=== PATIENT | male | born 1980 | race Caucasian/White ===

== ENCOUNTER 2019-01-07 18:51 | Inpatient (IN) | payer BC ==
[~2019-01-07] VITALS: Ht 170.2 cm; Wt 101.0 kg
[~2019-01-07 18:51] MED LIST: BENZOCAINE ONE 20% MUCOSAL SPRAY.; LIDOCAINE 2% TOPICAL JELLY 5GM TUBE. TP ONE
[2019-01-07 19:24] LABS: BASO # 0.2 x10^3/uL (0.0-0.2); BASO % 1 % (0-3); EOS % 0 % (0-3); HEMATOCRIT 22.4 % (39.0-53.0); HEMOGLOBIN 7.6 g/dL (13.0-17.5); LYMPH # 1.9 x10^3/uL (1.0-4.8); LYMPH % 8 % (24-48); MEAN CORPUSCULAR HEMOGLOBIN 33 pg (25-35); MEAN CORPUSCULAR HGB CONC 34 g/dL (31-37); MEAN CORPUSCULAR VOLUME 97 fL (79-100); MONO # 2.6 x10^3/uL (0.0-1.1); MONO % 11 % (0-9); NEUT % 81 % (31-73); PLATELET COUNT 168 x10^3/uL (140-400); RED CELL DISTRIBUTION WIDTH 14.6 % (11.5-14.5); WHITE BLOOD COUNT 24.7 x10^3/uL (4.0-11.0)
[2019-01-07] MEDS ORDERED: ONDANSETRON PF 4 MG/2 ML VIAL. IV ONE (19:30)
[2019-01-07] MEDS ORDERED: IV NORMAL SALINE 1000ML BAG 1,000 ML IV ONE ×3 (19:30→21:00)
[2019-01-07 19:33] LABS: PROTHROMBIN TIME PATIENT 21.7 SEC (11.7-14.0)
[2019-01-07 19:38] LABS: ALBUMIN 1.8 g/dL (3.4-5.0); ALBUMIN/GLOBULIN RATIO 0.4 (1.0-1.7); CALCIUM 7.6 mg/dL (8.5-10.1); CREATININE 1.7 mg/dL (0.7-1.3); GFR 45.3; MAGNESIUM 1.8 mg/dL (1.8-2.4); TOTAL PROTEIN 6.2 g/dL (6.4-8.2)
[2019-01-07 19:40] LABS: POTASSIUM 2.9 mmol/L (3.5-5.1)
[2019-01-07 19:57] LABS: % BANDS 2 % (0-9); % LYMPHS 6 % (24-48); % MONOS 10 % (0-10); % SEGS 82 % (35-66); ANISOCYTOSIS SLIGHT; POLYCHROMASIA SLIGHT; TOXIC GRANULATION SLIGHT
[2019-01-07 19:59] LABS: PLT ESTIMATE ADEQUATE (ADEQUATE)
[2019-01-07] MEDS ORDERED: PANTOPRAZOLE SODIUM IV DRIP 80 MG in IV NORMAL SALINE 100ML 100 ML IV ONE (20:00)
[2019-01-07] MEDS ORDERED: PANTOPRAZOLE IV PUSH 40 MG VIAL. IVP ONE (20:00)
--- NOTE | 2019-01-07 20:56 | PHYS DOC ---
Past Medical History Past Medical History: Alcoholism, Hypertension (MELL MCINTOSH APRN) Past Surgical History: No Surgical History (MELL MCINTOSH APRN) Alcohol Use: Occasionally Additional Information: PT REPORTS HX OF ALCOHOLISM Drug Use: None (MELL MCINTOSH APRN) Attending Signature I have participated in the care of this patient and I have reviewed and agree with all pertinent clinical information above including history, exam, and recommendations. (WILLEM FOOTE MD) Adult General Chief Complaint Chief Complaint: GI PROBLEM HPI HPI Patient is a 38 year old male who presents to the emergency department with complaints of vomiting blood twice today. Patient reports a history of daily alcohol consumption. He states that he has been drinking heavily for at least the last 7 months. Patient states that he drinks on average 4-8 beers a day. He denies any pain at this time. He reports that his last alcoholic beverage was 3 days ago. Patient states that he has had a history of vomiting blood in the past he denies any other medical history, he denies surgical history, and any allergies to any medications. Patient denies smoking or tobacco use, any illicit drug use, or suicidal ideations.. (MELL MCINTOSH APRN) Review of Systems Review of Systems Constitutional: Denies fever or chills [] Eyes: Denies change in visual acuity, redness, or eye pain [] HENT: Denies nasal congestion or sore throat [] Respiratory: Denies cough or shortness of breath [] Cardiovascular: Denies chest pain or palpitations, No additional information not addressed in HPI [] GI: Denies abdominal pain, bloody stools or diarrhea; see history of present illness[] : Denies dysuria or hematuria [] Musculoskeletal: Denies back pain or joint pain [] Integument: Denies rash or skin lesions [] Neurologic: Denies headache, focal weakness or sensory changes [] Complete systems were reviewed and found to be within normal limits, except as documented in this note. (MELL MCINTOSH APRN) Current Medications Current Medications Current Medications Medications (Trade) Dose Ordered Sig/Quyen Start Time Stop Time Status Last Admin Dose Admin Benzocaine (Hurricaine One) 2 spray STK-MED ONCE 01/07/19 12:00 01/08/19 14:20 DC Lidocaine HCl (Xylocaine 2% Topical 5gm Tube) 5 amanda STK-MED ONCE 01/07/19 12:00 01/08/19 14:20 DC Ondansetron HCl (Zofran) 4 mg 1X ONCE 01/07/19 19:30 01/07/19 19:31 DC 01/07/19 19:28 4 MG Pantoprazole Sodium (PROTONIX VIAL for IV PUSH) 80 mg 1X ONCE 01/07/19 20:00 01/07/19 20:01 DC 01/07/19 19:50 80 MG Pantoprazole Sodium 80 mg/ Sodium Chloride 100 ml @ 10 mls/hr 1X ONCE 01/07/19 20:00 01/08/19 05:59 DC 01/07/19 20:00 10 MLS/HR Sodium Chloride 1,000 ml @ 1,000 mls/hr 1X ONCE 01/07/19 20:45 01/07/19 21:44 DC 01/07/19 20:40 1,000 MLS/HR (WILLEM FOOTE MD) Allergies Allergies Allergies Coded Allergies Type Severity Reaction Last Updated Verified No Known Drug Allergies 01/07/19 No (WILLEM FOOTE MD) Physical Exam Physical Exam Constitutional: Well developed, well nourished, no acute distress, ill appearance. [] HENT: Normocephalic, atraumatic, bilateral external ears normal, oropharynx moist, no oral exudates, nose normal. [] Eyes: PERRLA, EOMI, conjunctiva jaundiced bilaterally, no discharge. [] Neck: Normal range of motion, no stridor. [] Cardiovascular:Heart rate regular tachycardic rhythm, no murmur [] Lungs & Thorax: Bilateral breath sounds clear to auscultation, rapid, shallow respirations, no chest wall tenderness, no retractions [] Abdomen: Bowel sounds normal, distended, no tenderness, no masses, no pulsatile masses. [] Skin: Warm, dry, appears jaundiced Back: No tenderness Extremities: No tenderness, no cyanosis, no clubbing, ROM intact, no edema. [] Neurologic: Alert and oriented X 2, patient is confused to date, no focal deficits noted. [] Psychologic: Affect normal, judgement normal, mood normal. [] (MELL MCINTOSH APRN) Current Patient Data Vital Signs Vital Signs Date Time Temp Pulse Resp B/P (MAP) Pulse Ox O2 Delivery O2 Flow Rate FiO2 01/07/19 20:36 120 135/57 (83) 100 Room Air 01/07/19 19:00 98.7 27 98.7 (WILLEM FOOTE MD) Lab Values Laboratory Tests Test 01/07/19 19:00 01/07/19 19:13 White Blood Count 24.7 x10^3/uL (4.0-11.0) H Red Blood Count 2.30 x10^6/uL (4.30-5.70) L Hemoglobin 7.6 g/dL (13.0-17.5) L Hematocrit 22.4 % (39.0-53.0) L Mean Corpuscular Volume 97 fL (79-100) Mean Corpuscular Hemoglobin 33 pg (25-35) Mean Corpuscular Hemoglobin Concent 34 g/dL (31-37) Red Cell Distribution Width 14.6 % (11.5-14.5) H Platelet Count 168 x10^3/uL (140-400) Neutrophils (%) (Auto) 81 % (31-73) H Lymphocytes (%) (Auto) 8 % (24-48) L Monocytes (%) (Auto) 11 % (0-9) H Eosinophils (%) (Auto) 0 % (0-3) Basophils (%) (Auto) 1 % (0-3) Neutrophils # (Auto) 20.0 x10^3/uL (1.8-7.7) H Lymphocytes # (Auto) 1.9 x10^3/uL (1.0-4.8) Monocytes # (Auto) 2.6 x10^3/uL (0.0-1.1) H Eosinophils # (Auto) 0.0 x10^3/uL (0.0-0.7) Basophils # (Auto) 0.2 x10^3/uL (0.0-0.2) Segmented Neutrophils % 82 % (35-66) H Band Neutrophils % 2 % (0-9) Lymphocytes % 6 % (24-48) L Monocytes % 10 % (0-10) Toxic Granulation Slight Platelet Estimate Adequate (ADEQUATE) Polychromasia Slight Anisocytosis Slight Prothrombin Time 21.7 SEC (11.7-14.0) H Prothrombin Time INR 1.9 (0.8-1.1) H Activated Partial Thromboplast Time 43 SEC (24-38) H Sodium Level 124 mmol/L (136-145) L Potassium Level 2.9 mmol/L (3.5-5.1) *L Chloride Level 81 mmol/L (98-107) L Carbon Dioxide Level 13 mmol/L (21-32) L Anion Gap 30 (6-14) H Blood Urea Nitrogen 35 mg/dL (8-26) H Creatinine 1.7 mg/dL (0.7-1.3) H Estimated GFR (Cockcroft-Gault) 45.3 BUN/Creatinine Ratio 21 (6-20) H Glucose Level 125 mg/dL (70-99) H Lactic Acid Level 21.1 mmol/L (0.4-2.0) *H Calcium Level 7.6 mg/dL (8.5-10.1) L Magnesium Level 1.8 mg/dL (1.8-2.4) Total Bilirubin 8.0 mg/dL (0.2-1.0) H Aspartate Amino Transferase (AST) 304 U/L (15-37) H Alanine Aminotransferase (ALT) 109 U/L (16-63) H Alkaline Phosphatase 207 U/L (46-116) H Creatine Kinase 965 U/L (39-308) H Creatine Kinase MB (Mass) 9.6 ng/mL (0.0-3.6) H Creatine Kinase MB Relative Index 1.0 % (0-4) Troponin I Quantitative 0.036 ng/mL (0.000-0.055) BK-Qau-W-Type Natriuretic Peptide 352 pg/mL (0-124) H Total Protein 6.2 g/dL (6.4-8.2) L Albumin 1.8 g/dL (3.4-5.0) L Albumin/Globulin Ratio 0.4 (1.0-1.7) L Lipase 627 U/L (73-393) H Ethyl Alcohol Level < 10 mg/dL (0-10) Glucose (Fingerstick) 114 mg/dL (70-99) H Laboratory Tests 01/07/19 19:00 Laboratory Tests 01/07/19 19:00 (WILLEM FOOTE MD) EKG EKG 1910 sinus tachycardia with a rate of 123 beats per minute, QRS(T) contour abnormality, consider anteroseptal myocardial damage, T-wave abnormality in the high lateral leads, no STEMI read by Dr. Foote (MELL MCINTOSH ELECTRONIC DATA INTERCHANGE SPECIALIST) Radiology/Procedures Radiology/Procedures PROCEDURE: CT ABDOMEN PELVIS WO CONTRAST CT ABDOMEN PELVIS WO CONTRAST INDICATION: Abdominal distention, jaundice EXAM: Noncontrast CT of the abdomen and pelvis. Coronal and sagittal reformatted images were performed. PQRS compliance statement: One or more of the following individualized dose reduction techniques were utilized for this examination: 1. Automated exposure control 2. Adjustment of the mA and/or kV according to patient size 3. Use of iterative reconstruction technique COMPARISON: None FINDINGS: Mild perihepatic and abdominal ascites. Lower chest: The visualized lower lungs are aerated. No pleural or pericardial effusion. ABDOMEN: Liver: No focal hepatic lesion. Gallbladder and biliary: Gallbladder is contracted and poorly evaluated. Normal caliber bile ducts. Spleen: Normal spleen. Pancreas: The noncontrast pancreas is homogeneous in attenuation without peripancreatic inflammatory changes. Adrenal glands: Normal adrenal glands. Kidneys and ureters: No opaque urinary calculi. Normal kidneys and ureters. GI tract: The stomach is decompressed and poorly evaluated. Normal caliber small bowel and colon. Appendix is not seen. Vascular structures: Moderate aortoiliac atherosclerotic disease Lymph nodes: No lymphadenopathy in the abdomen or pelvis. PELVIS: Genitourinary system: Bladder is well-distended. Hysterectomy SKELETAL STRUCTURES AND SOFT TISSUES: Degenerative changes of the spine. IMPRESSION: Mild abdominal and perihepatic ascites. No focal hepatic lesion, allowing for lack of intravenous contrast.[] PROCEDURE: CHEST AP ONLY Indication: Tachypnea TECHNIQUE:Portable AP chest X-ray COMPARISON: None FINDINGS: Heart is normal in size. Lungs are clear. No pneumothorax or pleural effusion. Visualized bony thorax within normal limits. IMPRESSION: No acute pulmonary process. (MELL MCINTOSH ELECTRONIC DATA INTERCHANGE SPECIALIST) Course & Med Decision Making Course & Med Decision Making Pertinent Labs and Imaging studies reviewed. (See chart for details) DX: Hepatic encephalopathy, multiorgan failure, severe sepsis, acute upper GI bleed, hypokalemia, ascities CBC: WBC 24.7, Hgb 7.6 at 1900 6.3 at 2235. Hct 22.4 at 1900 18.4 at 2235; pt was type and screened for 2 u PRBCs and order to transfuse was given; pt was also given 80 mg iv protonix bolus and protonix drip was started PT/INR Pt 21.7, INR 1.9, APTT 43 initial lactic acid 21.1 at 1900 pt given 3L NS repeat at 2235 is 17.3 Ammonia 90; alcohol testing negative CMP NA 124, K 2.9 (NS with 40 meq KCl 2 75 ml/hr ordered), CO2 13, BUN 35, Fence Machine Operator 1.7, total bili 8.9, AST 304, ALT 109, Alk phos 207, Lipase 627 CT abd pel revealed mild ascites CXR was ordered due to continued rapid shallow respirations most likely due to metabolic acidosis, CXR was unremarkable following 3L NS bolus, O2 sat remains 99-100% on room air Pt's VSS, remains tachycardic and tachypneic, Pt afebrile Pt reported anxiety 1 mg of IV ativan was ordered. 2044- Spoke with Dr. Borja who is the admitting physician, and care was assumed following discussion of patient. Will order vancomycin and zosyn pharmacy to dose. Also type and cross for 2 units PRBCs Patient remains afebrile, appears ill and jaundiced, respirations even and unlabored. Patient will be admitted to the ICU floor. Patient's case and plan of care also discussed with Dr. Foote [] (MELL MCINTOSH APRN) Dragon Disclaimer Dragon Disclaimer This electronic medical record was generated, in whole or in part, using a voice recognition dictation system. (MELL MCINTOSH APRN) Departure Departure Impression: Primary Impression: Acute hepatic encephalopathy Additional Impressions: Multiple organ system failure Severe sepsis with acute organ dysfunction Acute upper GI bleed Hypokalemia Ascites Disposition: ADMITTED INPATIENT Admitting Physician: BRIDGETT ACOSTA) (MELL MCINTOSH APRN) Condition: STABLE Referrals: UNKNOWN PCP NAME (PCP) Problem Qualifiers Additional Impressions: Ascites Ascites type: due to alcoholic cirrhosis Qualified Codes: K70.31 - Alcoholic cirrhosis of liver with ascites MELL MCINTOSH APRN Jan 07, 2019 20:56 WILLEM FOOTE MD Jan 08, 2019 18:14
[2019-01-07] MEDS ORDERED: VANCOMYCIN PER PHARMACY MC PRN (21:00)
[2019-01-07] MEDS ORDERED: PIP/TAZO PER PHARMACY MC PRN (21:00)
--- NOTE | 2019-01-07 21:19 | EKG ---
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
[2019-01-07] MEDS: PIPERACILLIN/TAZOBACTAM 3.375 GM in IV NORMAL SALINE 50ML 50 ML IV SCH (21:20)
[2019-01-07] MEDS ORDERED: POTASSIUM CL 40MEQ IN 0.9%NACL 1,000 ML IV ONE (21:30)
--- NOTE | 2019-01-07 21:31 | RAD ---
CT ABDOMEN PELVIS WO CONTRAST INDICATION: Abdominal distention, jaundice EXAM: Noncontrast CT of the abdomen and pelvis. Coronal and sagittal reformatted images were performed. PQRS compliance statement: One or more of the following individualized dose reduction techniques were utilized for this examination: 1. Automated exposure control 2. Adjustment of the mA and/or kV according to patient size 3. Use of iterative reconstruction technique COMPARISON: None FINDINGS: Mild perihepatic and abdominal ascites. Lower chest: The visualized lower lungs are aerated. No pleural or pericardial effusion. ABDOMEN: Liver: No focal hepatic lesion. Gallbladder and biliary: Gallbladder is contracted and poorly evaluated. Normal caliber bile ducts. Spleen: Normal spleen. Pancreas: The noncontrast pancreas is homogeneous in attenuation without peripancreatic inflammatory changes. Adrenal glands: Normal adrenal glands. Kidneys and ureters: No opaque urinary calculi. Normal kidneys and ureters. GI tract: The stomach is decompressed and poorly evaluated. Normal caliber small bowel and colon. Appendix is not seen. Vascular structures: Moderate aortoiliac atherosclerotic disease Lymph nodes: No lymphadenopathy in the abdomen or pelvis. PELVIS: Genitourinary system: Bladder is well-distended. Hysterectomy SKELETAL STRUCTURES AND SOFT TISSUES: Degenerative changes of the spine. IMPRESSION: Mild abdominal and perihepatic ascites. No focal hepatic lesion, allowing for lack of intravenous contrast. Electronically signed by: Rico Solis MD (01/07/2019 9:28 PM) [facility]
[2019-01-07] MEDS ORDERED: VANCOMYCIN 2 GM in IV NORMAL SALINE 500ML BAG 500 ML IV ONE (22:00)
[2019-01-07 22:57] LABS: HEMOGLOBIN 6.3 g/dL (13.0-17.5)
[2019-01-07 22:58] LABS: HEMATOCRIT 18.4 % (39.0-53.0)
[2019-01-07] MEDS: PANTOPRAZOLE SODIUM IV DRIP 80 MG in IV NORMAL SALINE 100ML 100 ML IV SCH (23:00)
[2019-01-07 23:16] VITALS: BP 122/56
[2019-01-08] VITALS (39 sets, daily range): BP systolic 85–159; BP diastolic 37–78
--- NOTE | 2019-01-08 00:09 | RAD ---
Indication: Tachypnea TECHNIQUE:Portable AP chest X-ray COMPARISON: None FINDINGS: Heart is normal in size. Lungs are clear. No pneumothorax or pleural effusion. Visualized bony thorax within normal limits. IMPRESSION: No acute pulmonary process. Electronically signed by: Rogelio Jackson DO (01/08/2019 12:06 AM) [facility]
[2019-01-08 00:29] LABS: BASE EXCESS ABG -10 mmol/L (-3-3); HCO3 ABG 13 mmol/L (21-28); PO2 ABG 89 mmHg (85-108); SAT O2 ABG 96 % (92-99)
--- NOTE | 2019-01-08 00:56 | NUR ---
Pharmacy Vancomycin Dosing Note S:Consulted to monitor and dose vancomycin started 01/07/19. O:ULI CARRIZALES is a 38 year old M with Sepsis HEPATIC ENCEPHALOPATHY . Height: 5 feet, 9 inches Weight: 104.738712 kg [place] Body Weight: 70.70 Adjusted Body Weight: 84.02 Dosing Weight: Actual Other Antibiotics: [id number] IV Q6H LABS: Last BUN: 35 Last Creatinine: 1.7 Creatinine Clearance: 70 mL/min Last WBC: 24.7 Last Procalcitonin: Tmax (past 24 hours): Microbiology: I/O: Drug Levels: Last level: on at Last dose given at Vancomycin Dosing: Loading Dose: 2000 mg x1 01/07/19 2211 Dosing Weight: Actual Target Trough: 15-20 A: Based on: Actual Wt and CrCl P: 1. 01/08/19 1000 Vancomycin 1500 mg IV q12h 2. Follow up Trough level on 01/09/19 at 0930 3. Pharmacy will continue to monitor, follow and adjust therapy as needed. SUSAN LOREDO RPH, 01/08/19 0056 Signed: 01/08/19 at 0057 by SUSAN LOREDO RPH PHA
[2019-01-08 01:11] LABS: FIO2 ABG 21; PCO2 ABG 19 mmHg (35-46)
[2019-01-08 01:25] LABS: HEMATOCRIT 23.7 % (39.0-53.0); HEMOGLOBIN 7.9 g/dL (13.0-17.5); RED BLOOD COUNT 2.43 x10^6/uL (4.30-5.70); RED CELL DISTRIBUTION WIDTH 14.6 % (11.5-14.5); WHITE BLOOD COUNT 22.5 x10^3/uL (4.0-11.0)
--- NOTE | 2019-01-08 01:40 | NUR ---
Pt presented to ICU at 0000 accompanied by two ED RN's via [place]. Pt is A&Ox2, being alert to month and current social events, ST, Tachypnic deep breathing with snoring sound on inhalation, O2 saturation between 99-100%, afebrile at 97.5 T, 0/10 on pain scale. Pt had blood transfusion on standby, Protonix Gtt at 10mL/ hr and NS w/ K+ at 75mL/ hr. Pt has generalized jaundice aswell as jaundiced sclera. Pt has mass bruising over left leg and discoloration/ darkened BLE. ABD is distended but non tender per pt report. Pt has small black/ brown smear from BM. Paged provider originally [phone]. Provider reached at 0120. Provider updated on pt condition, respiration rate and quality, medical history, onset of episode bringing pt to ED, diagnosis received, medications given in ER, lab results, altered mental status, vitals and trends. Provider acknowledged and ordered consult for ID, morning CBC and BMP labs to be drawn and an order for Zofran 4mg Q6H PRN IVP. Provider stated he will be in today to see pt. Will continue to assess and monitor and update dayshift on POC and any significant changes.
[2019-01-08] MEDS ORDERED: ONDANSETRON PF 4 MG/2 ML VIAL. IVP PRN ×2 (04:00→09:15)
[2019-01-08 05:19] LABS: FECAL OB PT POSITIVE (NEG)
[2019-01-08] MEDS: PANTOPRAZOLE SODIUM IV DRIP 80 MG in IV NORMAL SALINE 100ML 100 ML IV SCH (06:08)
[2019-01-08] MEDS: PIPERACILLIN/TAZOBACTAM 3.375 GM in IV NORMAL SALINE 50ML 50 ML IV SCH ×3 (06:09→18:13)
[2019-01-08 06:11] LABS: BASO # 0.2 x10^3/uL (0.0-0.2); BASO % 1 % (0-3); EOS % 0 % (0-3); HEMATOCRIT 21.1 % (39.0-53.0); HEMOGLOBIN 7.3 g/dL (13.0-17.5); LYMPH # 2.4 x10^3/uL (1.0-4.8); LYMPH % 11 % (24-48); MEAN CORPUSCULAR HEMOGLOBIN 33 pg (25-35); MEAN CORPUSCULAR HGB CONC 35 g/dL (31-37); MEAN CORPUSCULAR VOLUME 96 fL (79-100); MONO # 1.8 x10^3/uL (0.0-1.1); MONO % 8 % (0-9); NEUT % 81 % (31-73); PLATELET COUNT 157 x10^3/uL (140-400); RED CELL DISTRIBUTION WIDTH 14.2 % (11.5-14.5); WHITE BLOOD COUNT 22.4 x10^3/uL (4.0-11.0)
[2019-01-08 06:20] LABS: CREATININE 1.4 mg/dL (0.7-1.3); GFR 56.7; POTASSIUM 3.2 mmol/L (3.5-5.1)
[2019-01-08 06:49] LABS: BILIRUBIN,URINE MODERATE (NEG); CLARITY,URINE CLEAR; NITRITE,URINE NEGATIVE (NEG); PROTEIN,URINE NEGATIVE (NEG-TRACE)
--- NOTE | 2019-01-08 06:53 | PDOC ---
Infectious Disease Note Vital Sign Vital Signs Vital Signs Date Time Temp Pulse Resp B/P (MAP) Pulse Ox O2 Delivery O2 Flow Rate FiO2 01/08/19 05:00 128 46 98/63 (75) 100 Nasal Cannula 2.0 01/08/19 04:00 97.9 97.9 Labs Lab Laboratory Tests Test 01/07/19 19:00 01/07/19 19:13 01/07/19 22:35 01/08/19 00:20 White Blood Count 24.7 x10^3/uL (4.0-11.0) Red Blood Count 2.30 x10^6/uL (4.30-5.70) Hemoglobin 7.6 g/dL (13.0-17.5) 6.3 g/dL (13.0-17.5) Hematocrit 22.4 % (39.0-53.0) 18.4 % (39.0-53.0) Mean Corpuscular Volume 97 fL (79-100) Mean Corpuscular Hemoglobin 33 pg (25-35) Mean Corpuscular Hemoglobin Concent 34 g/dL (31-37) 34 g/dL (31-37) Red Cell Distribution Width 14.6 % (11.5-14.5) Platelet Count 168 x10^3/uL (140-400) Neutrophils (%) (Auto) 81 % (31-73) Lymphocytes (%) (Auto) 8 % (24-48) Monocytes (%) (Auto) 11 % (0-9) Eosinophils (%) (Auto) 0 % (0-3) Basophils (%) (Auto) 1 % (0-3) Neutrophils # (Auto) 20.0 x10^3/uL (1.8-7.7) Lymphocytes # (Auto) 1.9 x10^3/uL (1.0-4.8) Monocytes # (Auto) 2.6 x10^3/uL (0.0-1.1) Eosinophils # (Auto) 0.0 x10^3/uL (0.0-0.7) Basophils # (Auto) 0.2 x10^3/uL (0.0-0.2) Segmented Neutrophils % 82 % (35-66) Band Neutrophils % 2 % (0-9) Lymphocytes % 6 % (24-48) Monocytes % 10 % (0-10) Toxic Granulation Slight Platelet Estimate Adequate (ADEQUATE) Polychromasia Slight Anisocytosis Slight Prothrombin Time 21.7 SEC (11.7-14.0) Prothromb Time International Ratio 1.9 (0.8-1.1) Activated Partial Thromboplast Time 43 SEC (24-38) Sodium Level 124 mmol/L (136-145) Potassium Level 2.9 mmol/L (3.5-5.1) Chloride Level 81 mmol/L (98-107) Carbon Dioxide Level 13 mmol/L (21-32) Anion Gap 30 (6-14) Blood Urea Nitrogen 35 mg/dL (8-26) Creatinine 1.7 mg/dL (0.7-1.3) Estimated GFR (Cockcroft-Gault) 45.3 BUN/Creatinine Ratio 21 (6-20) Glucose Level 125 mg/dL (70-99) Lactic Acid Level 21.1 mmol/L (0.4-2.0) 17.3 mmol/L (0.4-2.0) Calcium Level 7.6 mg/dL (8.5-10.1) Magnesium Level 1.8 mg/dL (1.8-2.4) Total Bilirubin 8.0 mg/dL (0.2-1.0) Aspartate Amino Transf (AST/SGOT) 304 U/L (15-37) Alanine Aminotransferase (ALT/SGPT) 109 U/L (16-63) Alkaline Phosphatase 207 U/L (46-116) Creatine Kinase 965 U/L (39-308) Creatine Kinase MB (Mass) 9.6 ng/mL (0.0-3.6) Creatine Kinase MB Relative Index 1.0 % (0-4) Troponin I Quantitative 0.036 ng/mL (0.000-0.055) KL-[id number]-Type Natriuretic Peptide 352 pg/mL (0-124) Total Protein 6.2 g/dL (6.4-8.2) Albumin 1.8 g/dL (3.4-5.0) Albumin/Globulin Ratio 0.4 (1.0-1.7) Lipase 627 U/L (73-393) Ethyl Alcohol Level < 10 mg/dL (0-10) Glucose (Fingerstick) 114 mg/dL (70-99) Ammonia 90 mcmol/L (11-34) O2 Saturation 96 % (92-99) Arterial Blood pH 7.43 (7.35-7.45) Arterial Blood pCO2 at Patient Temp 19 mmHg (35-46) Arterial Blood pO2 at Patient Temp 89 mmHg (85-108) Arterial Blood HCO3 13 mmol/L (21-28) Arterial Blood Base Excess -10 mmol/L (-3-3) FiO2 21 Test 01/08/19 01:20 01/08/19 04:50 01/08/19 06:00 White Blood Count 22.5 x10^3/uL (4.0-11.0) 22.4 x10^3/uL (4.0-11.0) Red Blood Count 2.43 x10^6/uL (4.30-5.70) 2.20 x10^6/uL (4.30-5.70) Hemoglobin 7.9 g/dL (13.0-17.5) 7.3 g/dL (13.0-17.5) Hematocrit 23.7 % (39.0-53.0) 21.1 % (39.0-53.0) Mean Corpuscular Volume 98 fL (79-100) 96 fL (79-100) Mean Corpuscular Hemoglobin 33 pg (25-35) 33 pg (25-35) Mean Corpuscular Hemoglobin Concent 34 g/dL (31-37) 35 g/dL (31-37) Red Cell Distribution Width 14.6 % (11.5-14.5) 14.2 % (11.5-14.5) Platelet Count 148 x10^3/uL (140-400) 157 x10^3/uL (140-400) Stool Occult Blood Positive (NEG) Neutrophils (%) (Auto) 81 % (31-73) Lymphocytes (%) (Auto) 11 % (24-48) Monocytes (%) (Auto) 8 % (0-9) Eosinophils (%) (Auto) 0 % (0-3) Basophils (%) (Auto) 1 % (0-3) Neutrophils # (Auto) 18.0 x10^3/uL (1.8-7.7) Lymphocytes # (Auto) 2.4 x10^3/uL (1.0-4.8) Monocytes # (Auto) 1.8 x10^3/uL (0.0-1.1) Eosinophils # (Auto) 0.0 x10^3/uL (0.0-0.7) Basophils # (Auto) 0.2 x10^3/uL (0.0-0.2) Micro IMPRESSION: Mild abdominal and perihepatic ascites. No focal hepatic lesion, allowing for lack of intravenous contrast. Objective Assessment Leukocytosis Lactic acidosis Anemia - s/p PRBCs GI Bleed DOMONIQUE Transaminitis ? pancreatitis Rhabdo ETOH abuse with mild ascites Electrolyte abnormalities Obstructive resp issues Left leg echymosis Plan Plan of Care Blood cults times 2 Cont Zosyn D/c Vanc Consult GI/Renal F/u labs and cults. Add repeat LFTs/lipase to redraw this am Repeat Lactic acid Pulm eval given obstructive symptoms Withdrawl protocol per primary Critically ill 35 mins Thank you # [id number] MAYA VELARDE MD Jan 08, 2019 06:53
[2019-01-08 06:55] LABS: AMPHETAMINE/METHAMPHETAMINE NEG (NEG); BARBITURATES NEG (NEG); BENZODIAZEPINES NEG (NEG); CANNABINOIDS NEG (NEG); COCAINE NEG (NEG); METHADONE NEG (NEG); OPIATES NEG (NEG); PHENCYCLIDINE NEG (NEG)
[2019-01-08 07:05] LABS: ALBUMIN 1.7 g/dL (3.4-5.0); TOTAL BILIRUBIN 9.7 mg/dL (0.2-1.0); TOTAL PROTEIN 5.7 g/dL (6.4-8.2)
[2019-01-08] MEDS ORDERED: diphenhydrAMINE 50 MG/ML VIAL IVP PRN (07:15)
[2019-01-08] MEDS ORDERED: cloNIDine HCL 0.1 MG TABLET PO PRN (07:15)
[2019-01-08] MEDS ORDERED: HALOPERIDOL LACTATE 5 MG/ML VIAL. IVP PRN (07:15)
[2019-01-08 07:34] LABS: COLOR,URINE YELLOW
[2019-01-08 07:35] LABS: BACTERIA,URINE MODERATE /HPF (0-FEW)
[2019-01-08] MEDS ORDERED: SODIUM BICARB ADULT 8.4% 50 MEQ/50 ML DISP.SYRIN. IV ONE (08:00)
[2019-01-08] MEDS ORDERED: PROPOFOL 100 ML IV ONE ×2 (08:19→08:29)
[2019-01-08] MEDS ORDERED: SUCCINYLCHOLINE 200 MG/10 ML VIAL. ONE (08:19)
[2019-01-08] MEDS ORDERED: fentaNYL PF VIAL 100 MCG/2 ML VIAL ONE (08:55)
[2019-01-08] MEDS ORDERED: MIDAZOLAM HCL/PF 5 MG/5 ML VIAL. ONE (09:00)
[2019-01-08] MEDS ORDERED: NALOXONE 0.4 MG/ML VIAL. IV PRN (09:00)
[2019-01-08] MEDS ORDERED: OCTREOTIDE 500 MCG in IV NORMAL SALINE 100ML 100 ML IV PRN (09:00)
--- NOTE | 2019-01-08 09:10 | PDOC2 ---
GI CONSULT Reason For Consult: GI bleed HPI: HPI: History from chart and staff. 38 y/o male w/ h/o alcoholism came to ER last night after vomiting blood. Admitted to ICU - called by charge nurse this morning concerned w/ melena, tachycardia, and tachypnea - plans for emergent intubation. PMH: PMH: HTN, alcoholism Social History: ALCOHOL: heavy ROS: Unable to obtain. Vitals: Vitals: Vital Signs Date Time Temp Pulse Resp B/P (MAP) Pulse Ox O2 Delivery O2 Flow Rate FiO2 01/08/19 08:27 98.5 142 48 147/78 (101) Nasal Cannula 2.0 98.5 01/08/19 08:05 99 Labs: Labs: Laboratory Tests Test 01/07/19 19:00 01/07/19 19:13 01/07/19 22:35 01/08/19 00:20 White Blood Count 24.7 x10^3/uL (4.0-11.0) Red Blood Count 2.30 x10^6/uL (4.30-5.70) Hemoglobin 7.6 g/dL (13.0-17.5) 6.3 g/dL (13.0-17.5) Hematocrit 22.4 % (39.0-53.0) 18.4 % (39.0-53.0) Mean Corpuscular Volume 97 fL (79-100) Mean Corpuscular Hemoglobin 33 pg (25-35) Mean Corpuscular Hemoglobin Concent 34 g/dL (31-37) 34 g/dL (31-37) Red Cell Distribution Width 14.6 % (11.5-14.5) Platelet Count 168 x10^3/uL (140-400) Neutrophils (%) (Auto) 81 % (31-73) Lymphocytes (%) (Auto) 8 % (24-48) Monocytes (%) (Auto) 11 % (0-9) Eosinophils (%) (Auto) 0 % (0-3) Basophils (%) (Auto) 1 % (0-3) Neutrophils # (Auto) 20.0 x10^3/uL (1.8-7.7) Lymphocytes # (Auto) 1.9 x10^3/uL (1.0-4.8) Monocytes # (Auto) 2.6 x10^3/uL (0.0-1.1) Eosinophils # (Auto) 0.0 x10^3/uL (0.0-0.7) Basophils # (Auto) 0.2 x10^3/uL (0.0-0.2) Segmented Neutrophils % 82 % (35-66) Band Neutrophils % 2 % (0-9) Lymphocytes % 6 % (24-48) Monocytes % 10 % (0-10) Toxic Granulation Slight Platelet Estimate Adequate (ADEQUATE) Polychromasia Slight Anisocytosis Slight Prothrombin Time 21.7 SEC (11.7-14.0) Prothromb Time International Ratio 1.9 (0.8-1.1) Activated Partial Thromboplast Time 43 SEC (24-38) Sodium Level 124 mmol/L (136-145) Potassium Level 2.9 mmol/L (3.5-5.1) Chloride Level 81 mmol/L (98-107) Carbon Dioxide Level 13 mmol/L (21-32) Anion Gap 30 (6-14) Blood Urea Nitrogen 35 mg/dL (8-26) Creatinine 1.7 mg/dL (0.7-1.3) Estimated GFR (Cockcroft-Gault) 45.3 BUN/Creatinine Ratio 21 (6-20) Glucose Level 125 mg/dL (70-99) Lactic Acid Level 21.1 mmol/L (0.4-2.0) 17.3 mmol/L (0.4-2.0) Calcium Level 7.6 mg/dL (8.5-10.1) Magnesium Level 1.8 mg/dL (1.8-2.4) Total Bilirubin 8.0 mg/dL (0.2-1.0) Aspartate Amino Transf (AST/SGOT) 304 U/L (15-37) Alanine Aminotransferase (ALT/SGPT) 109 U/L (16-63) Alkaline Phosphatase 207 U/L (46-116) Creatine Kinase 965 U/L (39-308) Creatine Kinase MB (Mass) 9.6 ng/mL (0.0-3.6) Creatine Kinase MB Relative Index 1.0 % (0-4) Troponin I Quantitative 0.036 ng/mL (0.000-0.055) KD-Oob-U-Type Natriuretic Peptide 352 pg/mL (0-124) Total Protein 6.2 g/dL (6.4-8.2) Albumin 1.8 g/dL (3.4-5.0) Albumin/Globulin Ratio 0.4 (1.0-1.7) Lipase 627 U/L (73-393) Ethyl Alcohol Level < 10 mg/dL (0-10) Glucose (Fingerstick) 114 mg/dL (70-99) Ammonia 90 mcmol/L (11-34) O2 Saturation 96 % (92-99) Arterial Blood pH 7.43 (7.35-7.45) Arterial Blood pCO2 at Patient Temp 19 mmHg (35-46) Arterial Blood pO2 at Patient Temp 89 mmHg (85-108) Arterial Blood HCO3 13 mmol/L (21-28) Arterial Blood Base Excess -10 mmol/L (-3-3) FiO2 21 Test 01/08/19 01:20 01/08/19 04:50 01/08/19 06:00 01/08/19 06:29 White Blood Count 22.5 x10^3/uL (4.0-11.0) 22.4 x10^3/uL (4.0-11.0) Red Blood Count 2.43 x10^6/uL (4.30-5.70) 2.20 x10^6/uL (4.30-5.70) Hemoglobin 7.9 g/dL (13.0-17.5) 7.3 g/dL (13.0-17.5) Hematocrit 23.7 % (39.0-53.0) 21.1 % (39.0-53.0) Mean Corpuscular Volume 98 fL (79-100) 96 fL (79-100) Mean Corpuscular Hemoglobin 33 pg (25-35) 33 pg (25-35) Mean Corpuscular Hemoglobin Concent 34 g/dL (31-37) 35 g/dL (31-37) Red Cell Distribution Width 14.6 % (11.5-14.5) 14.2 % (11.5-14.5) Platelet Count 148 x10^3/uL (140-400) 157 x10^3/uL (140-400) Stool Occult Blood Positive (NEG) Neutrophils (%) (Auto) 81 % (31-73) Lymphocytes (%) (Auto) 11 % (24-48) Monocytes (%) (Auto) 8 % (0-9) Eosinophils (%) (Auto) 0 % (0-3) Basophils (%) (Auto) 1 % (0-3) Neutrophils # (Auto) 18.0 x10^3/uL (1.8-7.7) Lymphocytes # (Auto) 2.4 x10^3/uL (1.0-4.8) Monocytes # (Auto) 1.8 x10^3/uL (0.0-1.1) Eosinophils # (Auto) 0.0 x10^3/uL (0.0-0.7) Basophils # (Auto) 0.2 x10^3/uL (0.0-0.2) Sodium Level 129 mmol/L (136-145) Potassium Level 3.2 mmol/L (3.5-5.1) Chloride Level 92 mmol/L (98-107) Carbon Dioxide Level 19 mmol/L (21-32) Anion Gap 18 (6-14) Blood Urea Nitrogen 34 mg/dL (8-26) Creatinine 1.4 mg/dL (0.7-1.3) Estimated GFR (Cockcroft-Gault) 56.7 Glucose Level 131 mg/dL (70-99) Calcium Level 7.0 mg/dL (8.5-10.1) Total Bilirubin 9.7 mg/dL (0.2-1.0) Direct Bilirubin 8.0 mg/dL (0.0-0.2) Aspartate Amino Transf (AST/SGOT) 403 U/L (15-37) Alanine Aminotransferase (ALT/SGPT) 144 U/L (16-63) Alkaline Phosphatase 176 U/L (46-116) Total Protein 5.7 g/dL (6.4-8.2) Albumin 1.7 g/dL (3.4-5.0) Lipase 905 U/L (73-393) Procalcitonin 2.28 ng/mL (0.00-0.10) Urine Collection Type Unknown Urine Color Yellow Urine Clarity Clear Urine pH 6.0 Urine Specific [place] 1.015 Urine Protein Negative mg/dL (NEG-TRACE) Urine Glucose (UA) Negative mg/dL (NEG) Urine Ketones (Stick) Negative mg/dL (NEG) Urine Blood Moderate (NEG) Urine Nitrite Negative (NEG) Urine Bilirubin Moderate (NEG) Urine Urobilinogen Dipstick 1.0 mg/dL (0.2 mg/dL) Urine Leukocyte Esterase Moderate (NEG) Urine RBC 11-20 /HPF (0-2) Urine WBC 5-10 /HPF (0-4) Urine Bacteria Moderate /HPF (0-FEW) Urine Mucus Slight /LPF Urine Opiates Screen Neg (NEG) Urine Methadone Screen Neg (NEG) Urine Barbiturates Neg (NEG) Urine Phencyclidine Screen Neg (NEG) Urine Amphetamine/Methamphetamine Neg (NEG) Urine Benzodiazepines Screen Neg (NEG) Urine Cocaine Screen Neg (NEG) Urine Cannabinoids Screen Neg (NEG) Urine Ethyl Alcohol Neg (NEG) Allergies: Coded Allergies: No Known Drug Allergies (Unverified , 01/07/19) Medications: Current Medications Medications (Trade) Dose Ordered Sig/Quyen Route PRN Reason Start Time Stop Time Status Last Admin Dose Admin Sodium Chloride 1,000 ml @ 1,000 mls/hr 1X ONCE IV 01/07/19 19:30 01/07/19 20:29 DC 01/07/19 19:27 Ondansetron HCl (Zofran) 4 mg 1X ONCE IV 01/07/19 19:30 01/07/19 19:31 DC 01/07/19 19:28 Pantoprazole Sodium (PROTONIX VIAL for IV PUSH) 80 mg 1X ONCE IVP 01/07/19 20:00 01/07/19 20:01 DC 01/07/19 19:50 Pantoprazole Sodium 80 mg/ Sodium Chloride 100 ml @ 10 mls/hr 1X ONCE IV 01/07/19 20:00 01/08/19 05:59 DC 01/07/19 20:00 Sodium Chloride 1,000 ml @ 1,000 mls/hr 1X ONCE IV 01/07/19 21:00 01/07/19 21:59 DC 01/07/19 22:12 Sodium Chloride 1,000 ml @ 1,000 mls/hr 1X ONCE IV 01/07/19 20:45 01/07/19 21:44 DC 01/07/19 20:40 Potassium Chloride/Sodium Chloride 1,000 ml @ 75 mls/hr 1X ONCE IV 01/07/19 21:30 01/08/19 10:49 01/07/19 21:16 Vancomycin HCl (Vanco Per Pharmacy) 1 each PRN DAILY PRN MC SEE COMMENTS 01/07/19 21:00 01/08/19 06:39 DC 01/08/19 00:43 Piperacillin Sod/ Tazobactam Sod 3.375 gm/Sodium Chloride 50 ml @ 100 mls/hr Q6HRS IV 01/07/19 22:00 01/08/19 06:09 Vancomycin HCl 2 gm/Sodium Chloride 500 ml @ 250 mls/hr 1X ONCE IV 01/07/19 22:00 01/07/19 23:59 DC 01/07/19 22:11 Lorazepam (Ativan Inj) 1 mg 1X ONCE IV 01/07/19 23:30 01/07/19 23:31 DC 01/07/19 23:22 Pantoprazole Sodium 80 mg/ Sodium Chloride 100 ml @ 10 mls/hr Q10H IV 01/08/19 06:00 01/08/19 06:08 Lorazepam (Ativan Inj) 2 mg PRN Q1HR PRN IV For CIWA 8-14 01/08/19 07:15 01/08/19 08:24 Sodium Bicarbonate (Sodium Bicarb Adult 8.4% Syr) 50 meq 1X ONCE IV 01/08/19 08:00 01/08/19 08:01 DC 01/08/19 08:04 Imaging: Imaging: CT A/P IMPRESSION: Mild abdominal and perihepatic ascites. No focal hepatic lesion, allowing for lack of intravenous contrast. CXR IMPRESSION: No acute pulmonary process. PE: seen before intubation GEN: ill HEENT: Atraumatic LUNGS: tachypneic HEART: tachycardic ABD: distended - active melena EXTREMITY/SKIN: ecchymosis, BLE edema NEURO/PSYCH: does not respond A/P: A/P: Hematemesis, melena, suspected alcoholic liver disease Resp failure - now intubated, anesthesia reports "brown" blood Lactic acidosis, leukocytsosis, anemia, coagulopathy, elevated LFTs, hyperammonemia, mildly elevated lipase -- Reviewed w/ Dr. Goodman - will plan for EGD later today. Transfuse FFP, give vit K. Can recheck Hgb and transfuse more pRBCs. Continue PPI, add octreotide, also Reglan x 1. PINKY GONZALES Jan 08, 2019 09:10
[2019-01-08] MEDS ORDERED: ACETAMINOPHEN 500 MG TABLET PO PRN (09:15)
[2019-01-08] MEDS ORDERED: PHYTONADIONE 10 MG/ML AMPUL. SQ ONE (09:15)
[2019-01-08] MEDS ORDERED: traMADol 50 MG TABLET PO PRN (09:15)
[2019-01-08] MEDS ORDERED: MORPHINE SULFATE 2 MG/ML VIAL. IV PRN (09:15)
--- NOTE | 2019-01-08 09:24 | RAD ---
EXAM: 1. CHEST ONE VIEW. 2. ABDOMEN ONE VIEW. HISTORY: Intubated, respiratory failure, line placement. COMPARISON: 01/07/2019. FINDINGS: An endotracheal tube has its tip 5 cm above the pro. A nasogastric tube has its tip in the gastric fundus. The inspiration is small with paramediastinal and bibasilar atelectasis. The right paratracheal stripe is prominent. There is no pneumothorax or clear pleural effusion. The heart is not enlarged. There is mild gaseous distention of the small bowel in the midabdomen. There is gas distally. IMPRESSION: 1. Prominence of the right peritracheal stripe. Follow-up is recommended on examination with a better inspiration to exclude lymphadenopathy or mass. 2. Small inspiration with paramediastinal and basilar atelectasis. 3. No evidence of obstruction. Electronically signed by: Nick Gonzalez MD (01/08/2019 9:20 AM) [facility]
--- NOTE | 2019-01-08 09:40 | PDOC ---
Provider Note Provider Note Anesthesiology Called to emergently intubate patient in respiratory distress. SaO2 in low 80s with excessive respiratory effort. Preox. with 100% O2 via FM. Patient given Propofol 80mg IV and Succinylcholine 160mg IV. Upon initial direct visualization with Mac 4 blade, the posterior pharynx filled completely with ernestina k blood. Pt. suctioned and Glidescope passed to provide a good view of the vocal cords but the pharynx filled again with blood. A suction [place] was then passed along side or the ETT which provided adequate visualization to pass the ETT through the vocal cords. BS equal bilaterally. +ETCO2. After securing the ETT, it was discovered that the ETT cuff was not holding air. Therefore, a new ETT was passed over a flexible tube exchanger under direct visualization with the [place] scope. BS equal bilaterally, +ETCO2. CXR pending to confirm placement. Brief desaturations noted during above, otherwise VSS. Further care per primary team. MD NORBERTO Dixon RODNEY K MD Jan 08, 2019 09:40
[2019-01-08 09:42] LABS: BASE EXCESS ABG -3 mmol/L (-3-3); HCO3 ABG 23 mmol/L (21-28); PCO2 ABG 45 mmHg (35-46); PO2 ABG 134 mmHg (85-108); SAT O2 ABG 98 % (92-99)
[2019-01-08] MEDS: IV NORMAL SALINE 1000ML BAG 1,000 ML IV SCH ×2 (09:43→18:17)
[2019-01-08] MEDS: MULTIVIT INFUSN,ADULT 4,VIT K 10 ML, THIAMINE INJ 100 MG, FOLIC ACID INJ 1 MG in IV NOR... IV SCH (09:43)
[2019-01-08 09:45] LABS: FIO2 ABG 100
[2019-01-08] MEDS ORDERED: SUCCINYLCHOLINE 200 MG/10 ML VIAL. IV ONE (09:45)
[2019-01-08] MEDS ORDERED: fentaNYL PF VIAL 100 MCG/2 ML VIAL IVP ONE (09:45)
[2019-01-08] MEDS ORDERED: MIDAZOLAM HCL/PF 5 MG/5 ML VIAL. IV ONE (09:45)
[2019-01-08] MEDS: PROPOFOL 100 ML IV PRN (09:46)
[2019-01-08] MEDS ORDERED: VANCOMYCIN 1.5 GM in IV NORMAL SALINE 500ML BAG 500 ML IV SCH (10:00)
[2019-01-08 10:04] LABS: HEMATOCRIT 20.3 % (39.0-53.0)
--- NOTE | 2019-01-08 10:34 | PDOC1 ---
History and Physical Date of Admission Date of Admission DATE: 01/08/19 TIME: 10:25 Identification/Chief Complaint Chief Complaint bloody vomiting Source Source: Caregiver, Chart review, Patient History of Present Illness History of Present Illness Hx of daily etohism per . HEmatemesis at home and at ER, maybe even stool incontinence at home per , NOT CONFUSED AT ER ARRIVAL BUT LABS ALL DERANGED LFTS 150s, TB 9 HYpotensive, tachy 130s sinus OBese, pot belly ? fluid? WBC 22 , hgb 7, NA 129 in this alcoholic, PCP dr Harrell and admits to dc Cirrhosis but never saw GI as OP. AGAP elev 19 with low bicarb teens only, ? pH INR 1.9 ALBUMIN ONLY 1.7 s/p vitamin K PPI gtts till running HAD TO BE INTUBATED THIS EARLY AM for RR 65 NOw on vent 70% Fi)2, PEEP 5 tachypneic still but better CXR on er showed maybe atypical viral infection ? pulm overload, SOme leg swelling too left leg is bruised, fell 2 weeks ago when helping a friend out in the [place] te[place] eyed, i updated, etc on events today Past Medical History Hepatobiliary: Cirrhosis Past Surgical History Past Surgical History: No pertinent history Family History Family History: Family History Unknown Social History Smoke: No ALCOHOL: heavy Drugs: None Current Problem List Problem List Problems Medical Problems: (1) Acute hepatic encephalopathy Status: Acute (2) Acute upper GI bleed Status: Acute (3) Ascites Status: Acute (4) Hypokalemia Status: Acute (5) Multiple organ system failure Status: Acute (6) Severe sepsis with acute organ dysfunction Status: Acute Current Medications Current Medications Current Medications Sodium Chloride 1,000 ml @ 1,000 mls/hr 1X ONCE IV Last administered on 01/07/19at 19:27; Start 01/07/19 at 19:30; Stop 01/07/19 at 20:29; Status DC Ondansetron HCl (Zofran) 4 mg 1X ONCE IV Last administered on 01/07/19at 19:28; Start 01/07/19 at 19:30; Stop 01/07/19 at 19:31; Status DC Pantoprazole Sodium (PROTONIX VIAL for IV PUSH) 80 mg 1X ONCE IVP Last administered on 01/07/19at 19:50; Start 01/07/19 at 20:00; Stop 01/07/19 at 20:01; Status DC Pantoprazole Sodium 80 mg/ Sodium Chloride 100 ml @ 10 mls/hr 1X ONCE IV Last administered on 01/07/19at 20:00; Start 01/07/19 at 20:00; Stop 01/08/19 at 05:59; Status DC Sodium Chloride 1,000 ml @ 1,000 mls/hr 1X ONCE IV Last administered on 01/07/19at 22:12; Start 01/07/19 at 21:00; Stop 01/07/19 at 21:59; Status DC Sodium Chloride 1,000 ml @ 1,000 mls/hr 1X ONCE IV Last administered on 01/07/19at 20:40; Start 01/07/19 at 20:45; Stop 01/07/19 at 21:44; Status DC Potassium Chloride/Sodium Chloride 1,000 ml @ 75 mls/hr 1X ONCE IV Last administered on 01/07/19at 21:16; Start 01/07/19 at 21:30; Stop 01/08/19 at 10:49 Vancomycin HCl (Vanco Per Pharmacy) 1 each PRN DAILY PRN MC SEE COMMENTS Last administered on 01/08/19at 00:43; Start 01/07/19 at 21:00; Stop 01/08/19 at 06:39; Status DC Piperacillin Sod/ Tazobactam Sod (Zosyn Per Pharmacy) 1 each PRN DAILY PRN MC SEE COMMENTS; Start 01/07/19 at 21:00 Piperacillin Sod/ Tazobactam Sod 3.375 gm/Sodium Chloride 50 ml @ 100 mls/hr Q6HRS IV Last administered on 01/08/19at 06:09; Start 01/07/19 at 22:00 Vancomycin HCl 2 gm/Sodium Chloride 500 ml @ 250 mls/hr 1X ONCE IV Last administered on 01/07/19at 22:11; Start 01/07/19 at 22:00; Stop 01/07/19 at 23:59; Status DC Lorazepam (Ativan Inj) 1 mg 1X ONCE IV Last administered on 01/07/19at 23:22; Start 01/07/19 at 23:30; Stop 01/07/19 at 23:31; Status DC Lorazepam (Ativan Inj) 2 mg STK-MED ONCE .ROUTE ; Start 01/07/19 at 23:20; Stop 01/07/19 at 23:21; Status DC Vancomycin HCl 1.5 gm/Sodium Chloride 500 ml @ 250 mls/hr Q12H IV ; Start at 10:00; Stop 01/08/19 at 06:39; Status DC Vancomycin HCl (Vancomycin Trough Level) 1 each 1X ONCE MC ; Start 01/09/19 at 09:30; Stop 01/09/19 at 09:31 Ondansetron HCl (Zofran) 4 mg PRN Q6HRS PRN IVP NAUSEA/VOMITING; Start 01/08/19 at 04:00 Pantoprazole Sodium 80 mg/ Sodium Chloride 100 ml @ 10 mls/hr Q10H IV Last administered on 01/08/19at 06:08; Start 01/08/19 at 06:00 Multivitamins 10 ml/Thiamine HCl 100 mg/Folic Acid 1 mg/Sodium Chloride 1,011.2 ml @ 100 mls/ hr DAILY IV Last administered on 01/08/19at 09:43; Start 01/08/19 at 09:00; Stop 01/12/19 at 19:07 Lorazepam (Ativan Inj) 2 mg PRN Q1HR PRN IV For CIWA 8-14 Last administered on 01/08/19at 08:24; Start 01/08/19 at 07:15 Lorazepam (Ativan Inj) 4 mg PRN Q1HR PRN IV For CIWA 15 or greater; Start 01/08/19 at 07:15 Haloperidol Lactate (Haldol Inj) 5 mg PRN Q4HRS PRN IVP Hallucinatns,Confusn,Delirium; Start 01/08/19 at 07:15 Diphenhydramine HCl (Benadryl) 25 mg PRN Q15MIN PRN IVP EPS symptoms 2'Haldol admin; Start 01/08/19 at 07:15 Clonidine HCl (Catapres) 0.1 mg PRN Q1HR PRN PO SBP > 180 or DBP > 100, MRX3; Start 01/08/19 at 07:15 Sodium Bicarbonate (Sodium Bicarb Adult 8.4% Syr) 50 meq 1X ONCE IV Last administered on 01/08/19at 08:04; Start 01/08/19 at 08:00; Stop 01/08/19 at 08:01; Status DC Propofol 100 ml @ As Directed STK-MED ONCE IV ; Start 01/08/19 at 08:19; Stop 01/08/19 at 08:19; Status DC Succinylcholine Chloride (Anectine) 200 mg STK-MED ONCE .ROUTE ; Start 01/08/19 at 08:19; Stop 01/08/19 at 08:19; Status DC Propofol 100 ml @ As Directed STK-MED ONCE IV ; Start 01/08/19 at 08:29; Stop 01/08/19 at 08:30; Status DC Fentanyl Citrate 30 ml @ 0 mls/hr CONT PRN PRN IV PER PROTOCOL Last administered on 01/08/19at 09:40; Start 01/08/19 at 09:00 Naloxone HCl (Narcan) 0.4 mg PRN Q2MIN PRN IV SEE INSTRUCTIONS; Start 01/08/19 at 09:00 Sodium Chloride 1,000 ml @ 25 mls/hr Q24H IV Last administered on 01/08/19at 09:43; Start 01/08/19 at 08:54 Fentanyl Citrate (Fentanyl 2ml Vial) 100 mcg STK-MED ONCE .ROUTE ; Start 01/08/19 at 08:55; Stop 01/08/19 at 08:55; Status DC Octreotide Acetate 500 mcg/ Sodium Chloride 101 ml @ 0 mls/hr CONT PRN IV SEE I/O RECORD; Start 01/08/19 at 09:00 Phytonadione (Vitamin K Ampule) 10 mg 1X ONCE SQ Last administered on 01/08at 09:56; Start 01/08/19 at 09:15; Stop 01/08/19 at 09:16; Status DC Metoclopramide HCl (Reglan Vial) 10 mg 1X ONCE IVP ; Start 01/08/19 at 11:00; Stop 01/08/19 at 11:01 Midazolam HCl (Versed) 5 mg STK-MED ONCE .ROUTE ; Start 01/08/19 at 09:00; Stop 01/08/19 at 09:01; Status DC Acetaminophen (Tylenol) 500 mg PRN Q6HRS PRN PO MILD PAIN / TEMP; Start 01/08/19 at 09:15 Tramadol HCl (Ultram) 50 mg PRN Q6HRS PRN PO PAIN MODERATE; Start 01/08/19 at 09:15 Morphine Sulfate (Morphine Sulfate) 2 mg PRN Q2HR PRN IV PAIN; Start 01/08/19 at 09:15 Ondansetron HCl (Zofran) 4 mg PRN Q6HRS PRN IVP NAUSEA/VOMITING; Start 01/08/19 at 09:15 Fentanyl Citrate (Fentanyl 2ml Vial) 100 mcg 1X ONCE IVP Last administered on 01/08/19at 09:42; Start 01/08/19 at 09:45; Stop 01/08/19 at 09:46; Status DC Midazolam HCl (Versed) 5 mg 1X ONCE IV Last administered on 01/08/19at 09:41; Start 01/08/19 at 09:45; Stop 01/08/19 at 09:46; Status DC Succinylcholine Chloride (Anectine) 200 mg 1X ONCE IV Last administered on 01/08/19at 09:41; Start 01/08/19 at 09:45; Stop 01/08/19 at 09:46; Status DC Propofol 100 ml @ 1.524 mls/ hr CONT PRN IV SEE I/O RECORD Last administered on 01/08/19at 09:46; Start 01/08/19 at 09:45 Allergies Allergies: Coded Allergies: No Known Drug Allergies (Unverified , 01/07/19) ROS Review of System intubated now Physical Exam General: Other (tachypneic 30s) HEENT: Atraumatic, PERRLA Lungs: Normal air movement Heart: RRR, no thrills, no rubs, no gallops, no murmurs Cardiovascular: S1 Abdomen: Soft, No tenderness, Other (pot belly possible fluid wave) Extremities: No clubbing, No cyanosis, Normal pulses, Other (left leg is bruised from a fall 2-3 weeks ago) Vitals Vitals Vital Signs Date Time Temp Pulse Resp B/P (MAP) Pulse Ox O2 Delivery O2 Flow Rate FiO2 01/08/19 09:43 93 01/08/19 09:42 28 Ventilator 2.0 01/08/19 08:27 98.5 142 147/78 (101) 98.5 Labs Labs Laboratory Tests Test 01/07/19 19:00 01/07/19 19:13 01/07/19 22:35 01/08/19 00:20 White Blood Count 24.7 x10^3/uL (4.0-11.0) Red Blood Count 2.30 x10^6/uL (4.30-5.70) Hemoglobin 7.6 g/dL (13.0-17.5) 6.3 g/dL (13.0-17.5) Hematocrit 22.4 % (39.0-53.0) 18.4 % (39.0-53.0) Mean Corpuscular Volume 97 fL (79-100) Mean Corpuscular Hemoglobin 33 pg (25-35) Mean Corpuscular Hemoglobin Concent 34 g/dL (31-37) 34 g/dL (31-37) Red Cell Distribution Width 14.6 % (11.5-14.5) Platelet Count 168 x10^3/uL (140-400) Neutrophils (%) (Auto) 81 % (31-73) Lymphocytes (%) (Auto) 8 % (24-48) Monocytes (%) (Auto) 11 % (0-9) Eosinophils (%) (Auto) 0 % (0-3) Basophils (%) (Auto) 1 % (0-3) Neutrophils # (Auto) 20.0 x10^3/uL (1.8-7.7) Lymphocytes # (Auto) 1.9 x10^3/uL (1.0-4.8) Monocytes # (Auto) 2.6 x10^3/uL (0.0-1.1) Eosinophils # (Auto) 0.0 x10^3/uL (0.0-0.7) Basophils # (Auto) 0.2 x10^3/uL (0.0-0.2) Segmented Neutrophils % 82 % (35-66) Band Neutrophils % 2 % (0-9) Lymphocytes % 6 % (24-48) Monocytes % 10 % (0-10) Toxic Granulation Slight Platelet Estimate Adequate (ADEQUATE) Polychromasia Slight Anisocytosis Slight Prothrombin Time 21.7 SEC (11.7-14.0) Prothromb Time International Ratio 1.9 (0.8-1.1) Activated Partial Thromboplast Time 43 SEC (24-38) Sodium Level 124 mmol/L (136-145) Potassium Level 2.9 mmol/L (3.5-5.1) Chloride Level 81 mmol/L (98-107) Carbon Dioxide Level 13 mmol/L (21-32) Anion Gap 30 (6-14) Blood Urea Nitrogen 35 mg/dL (8-26) Creatinine 1.7 mg/dL (0.7-1.3) Estimated GFR (Cockcroft-Gault) 45.3 BUN/Creatinine Ratio 21 (6-20) Glucose Level 125 mg/dL (70-99) Lactic Acid Level 21.1 mmol/L (0.4-2.0) 17.3 mmol/L (0.4-2.0) Calcium Level 7.6 mg/dL (8.5-10.1) Magnesium Level 1.8 mg/dL (1.8-2.4) Total Bilirubin 8.0 mg/dL (0.2-1.0) Aspartate Amino Transf (AST/SGOT) 304 U/L (15-37) Alanine Aminotransferase (ALT/SGPT) 109 U/L (16-63) Alkaline Phosphatase 207 U/L (46-116) Creatine Kinase 965 U/L (39-308) Creatine Kinase MB (Mass) 9.6 ng/mL (0.0-3.6) Creatine Kinase MB Relative Index 1.0 % (0-4) Troponin I Quantitative 0.036 ng/mL (0.000-0.055) VW-Qks-T-Type Natriuretic Peptide 352 pg/mL (0-124) Total Protein 6.2 g/dL (6.4-8.2) Albumin 1.8 g/dL (3.4-5.0) Albumin/Globulin Ratio 0.4 (1.0-1.7) Lipase 627 U/L (73-393) Ethyl Alcohol Level < 10 mg/dL (0-10) Glucose (Fingerstick) 114 mg/dL (70-99) Ammonia 90 mcmol/L (11-34) O2 Saturation 96 % (92-99) Arterial Blood pH 7.43 (7.35-7.45) Arterial Blood pCO2 at Patient Temp 19 mmHg (35-46) Arterial Blood pO2 at Patient Temp 89 mmHg (85-108) Arterial Blood HCO3 13 mmol/L (21-28) Arterial Blood Base Excess -10 mmol/L (-3-3) FiO2 21 Test 01/08/19 01:20 01/08/19 04:50 01/08/19 06:00 01/08/19 06:29 White Blood Count 22.5 x10^3/uL (4.0-11.0) 22.4 x10^3/uL (4.0-11.0) Red Blood Count 2.43 x10^6/uL (4.30-5.70) 2.20 x10^6/uL (4.30-5.70) Hemoglobin 7.9 g/dL (13.0-17.5) 7.3 g/dL (13.0-17.5) Hematocrit 23.7 % (39.0-53.0) 21.1 % (39.0-53.0) Mean Corpuscular Volume 98 fL (79-100) 96 fL (79-100) Mean Corpuscular Hemoglobin 33 pg (25-35) 33 pg (25-35) Mean Corpuscular Hemoglobin Concent 34 g/dL (31-37) 35 g/dL (31-37) Red Cell Distribution Width 14.6 % (11.5-14.5) 14.2 % (11.5-14.5) Platelet Count 148 x10^3/uL (140-400) 157 x10^3/uL (140-400) Stool Occult Blood Positive (NEG) Neutrophils (%) (Auto) 81 % (31-73) Lymphocytes (%) (Auto) 11 % (24-48) Monocytes (%) (Auto) 8 % (0-9) Eosinophils (%) (Auto) 0 % (0-3) Basophils (%) (Auto) 1 % (0-3) Neutrophils # (Auto) 18.0 x10^3/uL (1.8-7.7) Lymphocytes # (Auto) 2.4 x10^3/uL (1.0-4.8) Monocytes # (Auto) 1.8 x10^3/uL (0.0-1.1) Eosinophils # (Auto) 0.0 x10^3/uL (0.0-0.7) Basophils # (Auto) 0.2 x10^3/uL (0.0-0.2) Sodium Level 129 mmol/L (136-145) Potassium Level 3.2 mmol/L (3.5-5.1) Chloride Level 92 mmol/L (98-107) Carbon Dioxide Level 19 mmol/L (21-32) Anion Gap 18 (6-14) Blood Urea Nitrogen 34 mg/dL (8-26) Creatinine 1.4 mg/dL (0.7-1.3) Estimated GFR (Cockcroft-Gault) 56.7 Glucose Level 131 mg/dL (70-99) Calcium Level 7.0 mg/dL (8.5-10.1) Total Bilirubin 9.7 mg/dL (0.2-1.0) Direct Bilirubin 8.0 mg/dL (0.0-0.2) Aspartate Amino Transf (AST/SGOT) 403 U/L (15-37) Alanine Aminotransferase (ALT/SGPT) 144 U/L (16-63) Alkaline Phosphatase 176 U/L (46-116) Total Protein 5.7 g/dL (6.4-8.2) Albumin 1.7 g/dL (3.4-5.0) Lipase 905 U/L (73-393) Procalcitonin 2.28 ng/mL (0.00-0.10) Urine Collection Type Unknown Urine Color Yellow Urine Clarity Clear Urine pH 6.0 Urine Specific [place] 1.015 Urine Protein Negative mg/dL (NEG-TRACE) Urine Glucose (UA) Negative mg/dL (NEG) Urine Ketones (Stick) Negative mg/dL (NEG) Urine Blood Moderate (NEG) Urine Nitrite Negative (NEG) Urine Bilirubin Moderate (NEG) Urine Urobilinogen Dipstick 1.0 mg/dL (0.2 mg/dL) Urine Leukocyte Esterase Moderate (NEG) Urine RBC 11-20 /HPF (0-2) Urine WBC 5-10 /HPF (0-4) Urine Bacteria Moderate /HPF (0-FEW) Urine Mucus Slight /LPF Urine Opiates Screen Neg (NEG) Urine Methadone Screen Neg (NEG) Urine Barbiturates Neg (NEG) Urine Phencyclidine Screen Neg (NEG) Urine Amphetamine/Methamphetamine Neg (NEG) Urine Benzodiazepines Screen Neg (NEG) Urine Cocaine Screen Neg (NEG) Urine Cannabinoids Screen Neg (NEG) Urine Ethyl Alcohol Neg (NEG) Test 01/08/19 09:40 01/08/19 09:43 Hemoglobin 7.0 g/dL (13.0-17.5) Hematocrit 20.3 % (39.0-53.0) Mean Corpuscular Hemoglobin Concent 35 g/dL (31-37) O2 Saturation 98 % (92-99) Arterial Blood pH 7.33 (7.35-7.45) Arterial Blood pCO2 at Patient Temp 45 mmHg (35-46) Arterial Blood pO2 at Patient Temp 134 mmHg (85-108) Arterial Blood HCO3 23 mmol/L (21-28) Arterial Blood Base Excess -3 mmol/L (-3-3) FiO2 100 Laboratory Tests Test 01/07/19 19:00 01/07/19 19:13 01/07/19 22:35 01/08/19 00:20 White Blood Count 24.7 x10^3/uL (4.0-11.0) Red Blood Count 2.30 x10^6/uL (4.30-5.70) Hemoglobin 7.6 g/dL (13.0-17.5) 6.3 g/dL (13.0-17.5) Hematocrit 22.4 % (39.0-53.0) 18.4 % (39.0-53.0) Mean Corpuscular Volume 97 fL (79-100) Mean Corpuscular Hemoglobin 33 pg (25-35) Mean Corpuscular Hemoglobin Concent 34 g/dL (31-37) 34 g/dL (31-37) Red Cell Distribution Width 14.6 % (11.5-14.5) Platelet Count 168 x10^3/uL (140-400) Neutrophils (%) (Auto) 81 % (31-73) Lymphocytes (%) (Auto) 8 % (24-48) Monocytes (%) (Auto) 11 % (0-9) Eosinophils (%) (Auto) 0 % (0-3) Basophils (%) (Auto) 1 % (0-3) Neutrophils # (Auto) 20.0 x10^3/uL (1.8-7.7) Lymphocytes # (Auto) 1.9 x10^3/uL (1.0-4.8) Monocytes # (Auto) 2.6 x10^3/uL (0.0-1.1) Eosinophils # (Auto) 0.0 x10^3/uL (0.0-0.7) Basophils # (Auto) 0.2 x10^3/uL (0.0-0.2) Segmented Neutrophils % 82 % (35-66) Band Neutrophils % 2 % (0-9) Lymphocytes % 6 % (24-48) Monocytes % 10 % (0-10) Toxic Granulation Slight Platelet Estimate Adequate (ADEQUATE) Polychromasia Slight Anisocytosis Slight Prothrombin Time 21.7 SEC (11.7-14.0) Prothromb Time International Ratio 1.9 (0.8-1.1) Activated Partial Thromboplast Time 43 SEC (24-38) Sodium Level 124 mmol/L (136-145) Potassium Level 2.9 mmol/L (3.5-5.1) Chloride Level 81 mmol/L (98-107) Carbon Dioxide Level 13 mmol/L (21-32) Anion Gap 30 (6-14) Blood Urea Nitrogen 35 mg/dL (8-26) Creatinine 1.7 mg/dL (0.7-1.3) Estimated GFR (Cockcroft-Gault) 45.3 BUN/Creatinine Ratio 21 (6-20) Glucose Level 125 mg/dL (70-99) Lactic Acid Level 21.1 mmol/L (0.4-2.0) 17.3 mmol/L (0.4-2.0) Calcium Level 7.6 mg/dL (8.5-10.1) Magnesium Level 1.8 mg/dL (1.8-2.4) Total Bilirubin 8.0 mg/dL (0.2-1.0) Aspartate Amino Transf (AST/SGOT) 304 U/L (15-37) Alanine Aminotransferase (ALT/SGPT) 109 U/L (16-63) Alkaline Phosphatase 207 U/L (46-116) Creatine Kinase 965 U/L (39-308) Creatine Kinase MB (Mass) 9.6 ng/mL (0.0-3.6) Creatine Kinase MB Relative Index 1.0 % (0-4) Troponin I Quantitative 0.036 ng/mL (0.000-0.055) XQ-Aoi-P-Type Natriuretic Peptide 352 pg/mL (0-124) Total Protein 6.2 g/dL (6.4-8.2) Albumin 1.8 g/dL (3.4-5.0) Albumin/Globulin Ratio 0.4 (1.0-1.7) Lipase 627 U/L (73-393) Ethyl Alcohol Level < 10 mg/dL (0-10) Glucose (Fingerstick) 114 mg/dL (70-99) Ammonia 90 mcmol/L (11-34) O2 Saturation 96 % (92-99) Arterial Blood pH 7.43 (7.35-7.45) Arterial Blood pCO2 at Patient Temp 19 mmHg (35-46) Arterial Blood pO2 at Patient Temp 89 mmHg (85-108) Arterial Blood HCO3 13 mmol/L (21-28) Arterial Blood Base Excess -10 mmol/L (-3-3) FiO2 21 Test 01/08/19 01:20 01/08/19 04:50 01/08/19 06:00 01/08/19 06:29 White Blood Count 22.5 x10^3/uL (4.0-11.0) 22.4 x10^3/uL (4.0-11.0) Red Blood Count 2.43 x10^6/uL (4.30-5.70) 2.20 x10^6/uL (4.30-5.70) Hemoglobin 7.9 g/dL (13.0-17.5) 7.3 g/dL (13.0-17.5) Hematocrit 23.7 % (39.0-53.0) 21.1 % (39.0-53.0) Mean Corpuscular Volume 98 fL (79-100) 96 fL (79-100) Mean Corpuscular Hemoglobin 33 pg (25-35) 33 pg (25-35) Mean Corpuscular Hemoglobin Concent 34 g/dL (31-37) 35 g/dL (31-37) Red Cell Distribution Width 14.6 % (11.5-14.5) 14.2 % (11.5-14.5) Platelet Count 148 x10^3/uL (140-400) 157 x10^3/uL (140-400) Stool Occult Blood Positive (NEG) Neutrophils (%) (Auto) 81 % (31-73) Lymphocytes (%) (Auto) 11 % (24-48) Monocytes (%) (Auto) 8 % (0-9) Eosinophils (%) (Auto) 0 % (0-3) Basophils (%) (Auto) 1 % (0-3) Neutrophils # (Auto) 18.0 x10^3/uL (1.8-7.7) Lymphocytes # (Auto) 2.4 x10^3/uL (1.0-4.8) Monocytes # (Auto) 1.8 x10^3/uL (0.0-1.1) Eosinophils # (Auto) 0.0 x10^3/uL (0.0-0.7) Basophils # (Auto) 0.2 x10^3/uL (0.0-0.2) Sodium Level 129 mmol/L (136-145) Potassium Level 3.2 mmol/L (3.5-5.1) Chloride Level 92 mmol/L (98-107) Carbon Dioxide Level 19 mmol/L (21-32) Anion Gap 18 (6-14) Blood Urea Nitrogen 34 mg/dL (8-26) Creatinine 1.4 mg/dL (0.7-1.3) Estimated GFR (Cockcroft-Gault) 56.7 Glucose Level 131 mg/dL (70-99) Calcium Level 7.0 mg/dL (8.5-10.1) Total Bilirubin 9.7 mg/dL (0.2-1.0) Direct Bilirubin 8.0 mg/dL (0.0-0.2) Aspartate Amino Transf (AST/SGOT) 403 U/L (15-37) Alanine Aminotransferase (ALT/SGPT) 144 U/L (16-63) Alkaline Phosphatase 176 U/L (46-116) Total Protein 5.7 g/dL (6.4-8.2) Albumin 1.7 g/dL (3.4-5.0) Lipase 905 U/L (73-393) Procalcitonin 2.28 ng/mL (0.00-0.10) Urine Collection Type Unknown Urine Color Yellow Urine Clarity Clear Urine pH 6.0 Urine Specific [place] 1.015 Urine Protein Negative mg/dL (NEG-TRACE) Urine Glucose (UA) Negative mg/dL (NEG) Urine Ketones (Stick) Negative mg/dL (NEG) Urine Blood Moderate (NEG) Urine Nitrite Negative (NEG) Urine Bilirubin Moderate (NEG) Urine Urobilinogen Dipstick 1.0 mg/dL (0.2 mg/dL) Urine Leukocyte Esterase Moderate (NEG) Urine RBC 11-20 /HPF (0-2) Urine WBC 5-10 /HPF (0-4) Urine Bacteria Moderate /HPF (0-FEW) Urine Mucus Slight /LPF Urine Opiates Screen Neg (NEG) Urine Methadone Screen Neg (NEG) Urine Barbiturates Neg (NEG) Urine Phencyclidine Screen Neg (NEG) Urine Amphetamine/Methamphetamine Neg (NEG) Urine Benzodiazepines Screen Neg (NEG) Urine Cocaine Screen Neg (NEG) Urine Cannabinoids Screen Neg (NEG) Urine Ethyl Alcohol Neg (NEG) Test 01/08/19 09:40 01/08/19 09:43 Hemoglobin 7.0 g/dL (13.0-17.5) Hematocrit 20.3 % (39.0-53.0) Mean Corpuscular Hemoglobin Concent 35 g/dL (31-37) O2 Saturation 98 % (92-99) Arterial Blood pH 7.33 (7.35-7.45) Arterial Blood pCO2 at Patient Temp 45 mmHg (35-46) Arterial Blood pO2 at Patient Temp 134 mmHg (85-108) Arterial Blood HCO3 23 mmol/L (21-28) Arterial Blood Base Excess -3 mmol/L (-3-3) FiO2 100 VTE Prophylaxis Ordered VTE Prophylaxis Devices: Contraindicated VTE Pharmacological Prophylaxi: Contraindicated Assessment/Plan Assessment/Plan Acute respi falure, IPPV - 01.08, fluid overload? - check wcho, vent bundle, CXR shows "Atypiical infection" HEMATEMESIS in A HEAVY DRINKER - EGD later 3 pm Stat; PPI gtt, SCD, GI consulted SEVERE PCM - albumin 1,7 - ALBUMIN CAN HELP PRESSORS Possible ascites? - check US abd bedside for tapable fluid if any HYPOTENSION, relative, pressors standby, albumin, blood products if needed Coagulopathy -s .p vit K, recheck INR, FFPS if HIgh INR or massive activly bleeding but have seems to have quieted down now HEPATIC enceph - ammonia for completion sake TRAMSAMINITIS with ELEVATED TB- per GI LEft leg bruise, in this coagulopathic anemic pt sec to fall 2 weeks ago - monitor ELEAVTED AGAP acidosis, renal consulted, can check PH in ABG FULL CODE cc 45 mins Dw and [employer]ATE[employer] MAIK GUNN MD Jan 08, 2019 10:34
[2019-01-08] MEDS ORDERED: METOCLOPRAMIDE HCL 10 MG/2 ML VIAL. IVP ONE (11:00)
--- NOTE | 2019-01-08 11:24 | PDOC ---
PULMONARY PROGRESS NOTES Vitals Vital Signs Date Time Temp Pulse Resp B/P (MAP) Pulse Ox O2 Delivery O2 Flow Rate FiO2 01/08/19 10:24 98.5 116 32 100/56 98.5 01/08/19 10:00 100 Ventilator 01/08/19 09:42 2.0 Cardiovascular: S1 Labs Laboratory Tests Test 01/07/19 19:00 01/07/19 19:13 01/07/19 22:35 01/08/19 00:20 White Blood Count 24.7 x10^3/uL (4.0-11.0) Red Blood Count 2.30 x10^6/uL (4.30-5.70) Hemoglobin 7.6 g/dL (13.0-17.5) 6.3 g/dL (13.0-17.5) Hematocrit 22.4 % (39.0-53.0) 18.4 % (39.0-53.0) Mean Corpuscular Volume 97 fL (79-100) Mean Corpuscular Hemoglobin 33 pg (25-35) Mean Corpuscular Hemoglobin Concent 34 g/dL (31-37) 34 g/dL (31-37) Red Cell Distribution Width 14.6 % (11.5-14.5) Platelet Count 168 x10^3/uL (140-400) Neutrophils (%) (Auto) 81 % (31-73) Lymphocytes (%) (Auto) 8 % (24-48) Monocytes (%) (Auto) 11 % (0-9) Eosinophils (%) (Auto) 0 % (0-3) Basophils (%) (Auto) 1 % (0-3) Neutrophils # (Auto) 20.0 x10^3/uL (1.8-7.7) Lymphocytes # (Auto) 1.9 x10^3/uL (1.0-4.8) Monocytes # (Auto) 2.6 x10^3/uL (0.0-1.1) Eosinophils # (Auto) 0.0 x10^3/uL (0.0-0.7) Basophils # (Auto) 0.2 x10^3/uL (0.0-0.2) Segmented Neutrophils % 82 % (35-66) Band Neutrophils % 2 % (0-9) Lymphocytes % 6 % (24-48) Monocytes % 10 % (0-10) Toxic Granulation Slight Platelet Estimate Adequate (ADEQUATE) Polychromasia Slight Anisocytosis Slight Prothrombin Time 21.7 SEC (11.7-14.0) Prothromb Time International Ratio 1.9 (0.8-1.1) Activated Partial Thromboplast Time 43 SEC (24-38) Sodium Level 124 mmol/L (136-145) Potassium Level 2.9 mmol/L (3.5-5.1) Chloride Level 81 mmol/L (98-107) Carbon Dioxide Level 13 mmol/L (21-32) Anion Gap 30 (6-14) Blood Urea Nitrogen 35 mg/dL (8-26) Creatinine 1.7 mg/dL (0.7-1.3) Estimated GFR (Cockcroft-Gault) 45.3 BUN/Creatinine Ratio 21 (6-20) Glucose Level 125 mg/dL (70-99) Lactic Acid Level 21.1 mmol/L (0.4-2.0) 17.3 mmol/L (0.4-2.0) Calcium Level 7.6 mg/dL (8.5-10.1) Magnesium Level 1.8 mg/dL (1.8-2.4) Total Bilirubin 8.0 mg/dL (0.2-1.0) Aspartate Amino Transf (AST/SGOT) 304 U/L (15-37) Alanine Aminotransferase (ALT/SGPT) 109 U/L (16-63) Alkaline Phosphatase 207 U/L (46-116) Creatine Kinase 965 U/L (39-308) Creatine Kinase MB (Mass) 9.6 ng/mL (0.0-3.6) Creatine Kinase MB Relative Index 1.0 % (0-4) Troponin I Quantitative 0.036 ng/mL (0.000-0.055) HQ-Jvs-U-Type Natriuretic Peptide 352 pg/mL (0-124) Total Protein 6.2 g/dL (6.4-8.2) Albumin 1.8 g/dL (3.4-5.0) Albumin/Globulin Ratio 0.4 (1.0-1.7) Lipase 627 U/L (73-393) Ethyl Alcohol Level < 10 mg/dL (0-10) Glucose (Fingerstick) 114 mg/dL (70-99) Ammonia 90 mcmol/L (11-34) O2 Saturation 96 % (92-99) Arterial Blood pH 7.43 (7.35-7.45) Arterial Blood pCO2 at Patient Temp 19 mmHg (35-46) Arterial Blood pO2 at Patient Temp 89 mmHg (85-108) Arterial Blood HCO3 13 mmol/L (21-28) Arterial Blood Base Excess -10 mmol/L (-3-3) FiO2 21 Test 01/08/19 01:20 01/08/19 04:50 01/08/19 06:00 01/08/19 06:29 White Blood Count 22.5 x10^3/uL (4.0-11.0) 22.4 x10^3/uL (4.0-11.0) Red Blood Count 2.43 x10^6/uL (4.30-5.70) 2.20 x10^6/uL (4.30-5.70) Hemoglobin 7.9 g/dL (13.0-17.5) 7.3 g/dL (13.0-17.5) Hematocrit 23.7 % (39.0-53.0) 21.1 % (39.0-53.0) Mean Corpuscular Volume 98 fL (79-100) 96 fL (79-100) Mean Corpuscular Hemoglobin 33 pg (25-35) 33 pg (25-35) Mean Corpuscular Hemoglobin Concent 34 g/dL (31-37) 35 g/dL (31-37) Red Cell Distribution Width 14.6 % (11.5-14.5) 14.2 % (11.5-14.5) Platelet Count 148 x10^3/uL (140-400) 157 x10^3/uL (140-400) Stool Occult Blood Positive (NEG) Neutrophils (%) (Auto) 81 % (31-73) Lymphocytes (%) (Auto) 11 % (24-48) Monocytes (%) (Auto) 8 % (0-9) Eosinophils (%) (Auto) 0 % (0-3) Basophils (%) (Auto) 1 % (0-3) Neutrophils # (Auto) 18.0 x10^3/uL (1.8-7.7) Lymphocytes # (Auto) 2.4 x10^3/uL (1.0-4.8) Monocytes # (Auto) 1.8 x10^3/uL (0.0-1.1) Eosinophils # (Auto) 0.0 x10^3/uL (0.0-0.7) Basophils # (Auto) 0.2 x10^3/uL (0.0-0.2) Sodium Level 129 mmol/L (136-145) Potassium Level 3.2 mmol/L (3.5-5.1) Chloride Level 92 mmol/L (98-107) Carbon Dioxide Level 19 mmol/L (21-32) Anion Gap 18 (6-14) Blood Urea Nitrogen 34 mg/dL (8-26) Creatinine 1.4 mg/dL (0.7-1.3) Estimated GFR (Cockcroft-Gault) 56.7 Glucose Level 131 mg/dL (70-99) Calcium Level 7.0 mg/dL (8.5-10.1) Total Bilirubin 9.7 mg/dL (0.2-1.0) Direct Bilirubin 8.0 mg/dL (0.0-0.2) Aspartate Amino Transf (AST/SGOT) 403 U/L (15-37) Alanine Aminotransferase (ALT/SGPT) 144 U/L (16-63) Alkaline Phosphatase 176 U/L (46-116) Total Protein 5.7 g/dL (6.4-8.2) Albumin 1.7 g/dL (3.4-5.0) Lipase 905 U/L (73-393) Procalcitonin 2.28 ng/mL (0.00-0.10) Urine Collection Type Unknown Urine Color Yellow Urine Clarity Clear Urine pH 6.0 Urine Specific [place] 1.015 Urine Protein Negative mg/dL (NEG-TRACE) Urine Glucose (UA) Negative mg/dL (NEG) Urine Ketones (Stick) Negative mg/dL (NEG) Urine Blood Moderate (NEG) Urine Nitrite Negative (NEG) Urine Bilirubin Moderate (NEG) Urine Urobilinogen Dipstick 1.0 mg/dL (0.2 mg/dL) Urine Leukocyte Esterase Moderate (NEG) Urine RBC 11-20 /HPF (0-2) Urine WBC 5-10 /HPF (0-4) Urine Bacteria Moderate /HPF (0-FEW) Urine Mucus Slight /LPF Urine Opiates Screen Neg (NEG) Urine Methadone Screen Neg (NEG) Urine Barbiturates Neg (NEG) Urine Phencyclidine Screen Neg (NEG) Urine Amphetamine/Methamphetamine Neg (NEG) Urine Benzodiazepines Screen Neg (NEG) Urine Cocaine Screen Neg (NEG) Urine Cannabinoids Screen Neg (NEG) Urine Ethyl Alcohol Neg (NEG) Test 01/08/19 07:31 01/08/19 09:40 01/08/19 09:43 Lactic Acid Level 10.1 mmol/L (0.4-2.0) Hemoglobin 7.0 g/dL (13.0-17.5) Hematocrit 20.3 % (39.0-53.0) Mean Corpuscular Hemoglobin Concent 35 g/dL (31-37) Hepatitis A IgM Antibody Nonreactive (Nonreactive) Hepatitis B Surface Antigen Nonreactive (Nonreactive) Hepatitis B Core IgM Antibody Nonreactive (Nonreactive) Hepatitis C IgG Antibody Reactive (Nonreactive) O2 Saturation 98 % (92-99) Arterial Blood pH 7.33 (7.35-7.45) Arterial Blood pCO2 at Patient Temp 45 mmHg (35-46) Arterial Blood pO2 at Patient Temp 134 mmHg (85-108) Arterial Blood HCO3 23 mmol/L (21-28) Arterial Blood Base Excess -3 mmol/L (-3-3) FiO2 100 Laboratory Tests Test 01/07/19 19:00 01/07/19 19:13 01/07/19 22:35 01/08/19 00:20 White Blood Count 24.7 x10^3/uL (4.0-11.0) Red Blood Count 2.30 x10^6/uL (4.30-5.70) Hemoglobin 7.6 g/dL (13.0-17.5) 6.3 g/dL (13.0-17.5) Hematocrit 22.4 % (39.0-53.0) 18.4 % (39.0-53.0) Mean Corpuscular Volume 97 fL (79-100) Mean Corpuscular Hemoglobin 33 pg (25-35) Mean Corpuscular Hemoglobin Concent 34 g/dL (31-37) 34 g/dL (31-37) Red Cell Distribution Width 14.6 % (11.5-14.5) Platelet Count 168 x10^3/uL (140-400) Neutrophils (%) (Auto) 81 % (31-73) Lymphocytes (%) (Auto) 8 % (24-48) Monocytes (%) (Auto) 11 % (0-9) Eosinophils (%) (Auto) 0 % (0-3) Basophils (%) (Auto) 1 % (0-3) Neutrophils # (Auto) 20.0 x10^3/uL (1.8-7.7) Lymphocytes # (Auto) 1.9 x10^3/uL (1.0-4.8) Monocytes # (Auto) 2.6 x10^3/uL (0.0-1.1) Eosinophils # (Auto) 0.0 x10^3/uL (0.0-0.7) Basophils # (Auto) 0.2 x10^3/uL (0.0-0.2) Segmented Neutrophils % 82 % (35-66) Band Neutrophils % 2 % (0-9) Lymphocytes % 6 % (24-48) Monocytes % 10 % (0-10) Toxic Granulation Slight Platelet Estimate Adequate (ADEQUATE) Polychromasia Slight Anisocytosis Slight Prothrombin Time 21.7 SEC (11.7-14.0) Prothromb Time International Ratio 1.9 (0.8-1.1) Activated Partial Thromboplast Time 43 SEC (24-38) Sodium Level 124 mmol/L (136-145) Potassium Level 2.9 mmol/L (3.5-5.1) Chloride Level 81 mmol/L (98-107) Carbon Dioxide Level 13 mmol/L (21-32) Anion Gap 30 (6-14) Blood Urea Nitrogen 35 mg/dL (8-26) Creatinine 1.7 mg/dL (0.7-1.3) Estimated GFR (Cockcroft-Gault) 45.3 BUN/Creatinine Ratio 21 (6-20) Glucose Level 125 mg/dL (70-99) Lactic Acid Level 21.1 mmol/L (0.4-2.0) 17.3 mmol/L (0.4-2.0) Calcium Level 7.6 mg/dL (8.5-10.1) Magnesium Level 1.8 mg/dL (1.8-2.4) Total Bilirubin 8.0 mg/dL (0.2-1.0) Aspartate Amino Transf (AST/SGOT) 304 U/L (15-37) Alanine Aminotransferase (ALT/SGPT) 109 U/L (16-63) Alkaline Phosphatase 207 U/L (46-116) Creatine Kinase 965 U/L (39-308) Creatine Kinase MB (Mass) 9.6 ng/mL (0.0-3.6) Creatine Kinase MB Relative Index 1.0 % (0-4) Troponin I Quantitative 0.036 ng/mL (0.000-0.055) KP-Bxr-Q-Type Natriuretic Peptide 352 pg/mL (0-124) Total Protein 6.2 g/dL (6.4-8.2) Albumin 1.8 g/dL (3.4-5.0) Albumin/Globulin Ratio 0.4 (1.0-1.7) Lipase 627 U/L (73-393) Ethyl Alcohol Level < 10 mg/dL (0-10) Glucose (Fingerstick) 114 mg/dL (70-99) Ammonia 90 mcmol/L (11-34) O2 Saturation 96 % (92-99) Arterial Blood pH 7.43 (7.35-7.45) Arterial Blood pCO2 at Patient Temp 19 mmHg (35-46) Arterial Blood pO2 at Patient Temp 89 mmHg (85-108) Arterial Blood HCO3 13 mmol/L (21-28) Arterial Blood Base Excess -10 mmol/L (-3-3) FiO2 21 Test 01/08/19 01:20 01/08/19 04:50 01/08/19 06:00 01/08/19 06:29 White Blood Count 22.5 x10^3/uL (4.0-11.0) 22.4 x10^3/uL (4.0-11.0) Red Blood Count 2.43 x10^6/uL (4.30-5.70) 2.20 x10^6/uL (4.30-5.70) Hemoglobin 7.9 g/dL (13.0-17.5) 7.3 g/dL (13.0-17.5) Hematocrit 23.7 % (39.0-53.0) 21.1 % (39.0-53.0) Mean Corpuscular Volume 98 fL (79-100) 96 fL (79-100) Mean Corpuscular Hemoglobin 33 pg (25-35) 33 pg (25-35) Mean Corpuscular Hemoglobin Concent 34 g/dL (31-37) 35 g/dL (31-37) Red Cell Distribution Width 14.6 % (11.5-14.5) 14.2 % (11.5-14.5) Platelet Count 148 x10^3/uL (140-400) 157 x10^3/uL (140-400) Stool Occult Blood Positive (NEG) Neutrophils (%) (Auto) 81 % (31-73) Lymphocytes (%) (Auto) 11 % (24-48) Monocytes (%) (Auto) 8 % (0-9) Eosinophils (%) (Auto) 0 % (0-3) Basophils (%) (Auto) 1 % (0-3) Neutrophils # (Auto) 18.0 x10^3/uL (1.8-7.7) Lymphocytes # (Auto) 2.4 x10^3/uL (1.0-4.8) Monocytes # (Auto) 1.8 x10^3/uL (0.0-1.1) Eosinophils # (Auto) 0.0 x10^3/uL (0.0-0.7) Basophils # (Auto) 0.2 x10^3/uL (0.0-0.2) Sodium Level 129 mmol/L (136-145) Potassium Level 3.2 mmol/L (3.5-5.1) Chloride Level 92 mmol/L (98-107) Carbon Dioxide Level 19 mmol/L (21-32) Anion Gap 18 (6-14) Blood Urea Nitrogen 34 mg/dL (8-26) Creatinine 1.4 mg/dL (0.7-1.3) Estimated GFR (Cockcroft-Gault) 56.7 Glucose Level 131 mg/dL (70-99) Calcium Level 7.0 mg/dL (8.5-10.1) Total Bilirubin 9.7 mg/dL (0.2-1.0) Direct Bilirubin 8.0 mg/dL (0.0-0.2) Aspartate Amino Transf (AST/SGOT) 403 U/L (15-37) Alanine Aminotransferase (ALT/SGPT) 144 U/L (16-63) Alkaline Phosphatase 176 U/L (46-116) Total Protein 5.7 g/dL (6.4-8.2) Albumin 1.7 g/dL (3.4-5.0) Lipase 905 U/L (73-393) Procalcitonin 2.28 ng/mL (0.00-0.10) Urine Collection Type Unknown Urine Color Yellow Urine Clarity Clear Urine pH 6.0 Urine Specific [place] 1.015 Urine Protein Negative mg/dL (NEG-TRACE) Urine Glucose (UA) Negative mg/dL (NEG) Urine Ketones (Stick) Negative mg/dL (NEG) Urine Blood Moderate (NEG) Urine Nitrite Negative (NEG) Urine Bilirubin Moderate (NEG) Urine Urobilinogen Dipstick 1.0 mg/dL (0.2 mg/dL) Urine Leukocyte Esterase Moderate (NEG) Urine RBC 11-20 /HPF (0-2) Urine WBC 5-10 /HPF (0-4) Urine Bacteria Moderate /HPF (0-FEW) Urine Mucus Slight /LPF Urine Opiates Screen Neg (NEG) Urine Methadone Screen Neg (NEG) Urine Barbiturates Neg (NEG) Urine Phencyclidine Screen Neg (NEG) Urine Amphetamine/Methamphetamine Neg (NEG) Urine Benzodiazepines Screen Neg (NEG) Urine Cocaine Screen Neg (NEG) Urine Cannabinoids Screen Neg (NEG) Urine Ethyl Alcohol Neg (NEG) Test 01/08/19 07:31 01/08/19 09:40 01/08/19 09:43 Lactic Acid Level 10.1 mmol/L (0.4-2.0) Hemoglobin 7.0 g/dL (13.0-17.5) Hematocrit 20.3 % (39.0-53.0) Mean Corpuscular Hemoglobin Concent 35 g/dL (31-37) Hepatitis A IgM Antibody Nonreactive (Nonreactive) Hepatitis B Surface Antigen Nonreactive (Nonreactive) Hepatitis B Core IgM Antibody Nonreactive (Nonreactive) Hepatitis C IgG Antibody Reactive (Nonreactive) O2 Saturation 98 % (92-99) Arterial Blood pH 7.33 (7.35-7.45) Arterial Blood pCO2 at Patient Temp 45 mmHg (35-46) Arterial Blood pO2 at Patient Temp 134 mmHg (85-108) Arterial Blood HCO3 23 mmol/L (21-28) Arterial Blood Base Excess -3 mmol/L (-3-3) FiO2 100 Impression . FULL NOTE DICTATED MULTI ORGAN FAILURE WILL CONTINUE SUPPORT D/W AND MOTHER AT BEDSIDE PT CRITICALLY ILL, MAY NOT SURVIVE CARROLL BARRETT MD Jan 08, 2019 11:24
[2019-01-08] MEDS: MIDAZOLAM 100mg/100ml NS BAG 100 ML IV PRN ×3 (11:26→23:59)
--- NOTE | 2019-01-08 11:33 | CONS ---
DATE OF CONSULTATION: 01/08/2019 INFECTIOUS DISEASE CONSULTATION PATIENT'S ROOM: ICU #11. REQUESTING PHYSICIAN: Dr. Borja. REASON FOR CONSULTATION: Sepsis. HISTORY OF PRESENT ILLNESS: The patient is a 38-year-old gentleman without significant past medical history aside from hypertension, but does have a history of alcohol abuse. He is little a bit confused. He presented to [facility] Emergency Room on the evening of the secondary to complaints of vomiting blood and some abdominal discomfort. He states that his alcohol consumption is mainly beer and he drinks he says 4-8, but he said 4-16 beers at one point in the range at different times since his presentation. On arrival, he was afebrile, his blood pressure has dropped as low as 96/59, hemoglobin initially was 7.6, but repeat was 6.3. Subsequently, he has been transfused 2 units of packed red blood cells. Occult stools obtained and was positive. He had a creatinine of 1.7 on arrival, lactic acid of 21.1, lipase of 627 with elevated liver function study tests and a creatine kinase of 963. He has been admitted to the Intensive Care Unit and he was given doses of vancomycin and Zosyn. He underwent a chest x-ray, did not show any acute pulmonary process. Abdominal CT scan without contrast showed mild abdominal and perihepatic ascites, no focal hepatic lesion, allowing for the lack of IV contrast. Currently, the patient is lying in bed. He is arousable. He snores while he is breathing. He is not in any particular distress. He denies fevers, chills, or sweats. He has a little sinus congestion. He has no sore throat. No gross shortness of air or cough. Denies any gross abdominal discomfort. Denies any diarrhea or constipation. No dysuria, frequency, urgency, or rashes. PAST MEDICAL HISTORY: Positive for hypertension. He denies any other past medical history. He denies any surgery. REVIEW OF SYSTEMS: Otherwise negative. ALLERGIES: No known drug allergies. SOCIAL HISTORY: He denies tobacco. He is a drinker, does not chew. He works framing houses. He has no pets. Denies any ill contacts. Denies any other substances. No cocaine, no marijuana. He was not in the . FAMILY HISTORY: Positive for alcohol abuse in his grandfather and his father. His father had liver disease. Grandfather had diabetes. CURRENT MEDICATIONS: Include vancomycin, Zosyn, Protonix drip. Other meds are available and have been reviewed in the chart. PHYSICAL EXAMINATION: VITAL SIGNS: He has been afebrile, temperature currently at 97.9, pulse 120, respiratory rate was 46, blood pressure 98/63, satting 100% on 2 liters nasal cannula. CONSTITUTIONAL: He is alert. He is cooperative, answers questions, but does seem a little confused. HEENT: Pupils equal and reactive. He has got icteric sclerae. Oral cavity, pharynx is clear. No signs of any blood. NECK: Supple, no JVD. LUNGS: Without wheeze, no rhonchi. HEART: Tachycardic, S1. ABDOMEN: Obese, soft, no guarding, no rebound. EXTREMITIES: Without clubbing, cyanosis. His left lower extremity has a large ecchymosis from his thigh down to his lower third of the tibial area. There is no gross erythema. There is no warmth. It is nontender. His right great toenail has a small trunk that is missing out of it, but there is no surrounding erythema. It is nontender. There is no swelling. SKIN: Otherwise without signs of rash. NEUROLOGIC: ____ open. He responds to questions. PSYCHIATRIC: Affect is somewhat flat. LABORATORY VALUES: White count on arrival from the was 24.7, repeat today is 22.4, hemoglobin currently is 7.3 down from 7.9, platelets are 157, neutrophils are 81. Sodium is 129 up from 124, creatinine is 1.4 down from 1.7, glucose is 131. Repeat lactic acid was 17.3, calcium was 7.6. Total bilirubin was 8, AST was 304, ALT 109, alkaline phosphatase 207. Creatine kinase was 965. BNP of 352. Albumin of 1.8. Lipase was 627. Toxicology screen was negative for alcohol, occult positive stool. RADIOLOGY: Reviewed in history of present illness. IMPRESSION: 1. Leukocytosis. 2. Lactic acidosis. 3. Anemia, status post packed red blood cells. 4. Gastrointestinal bleed. 5. Acute kidney injury. 6. Transaminitis. 7. Questionable pancreatitis. 8. Rhabdomyolysis. 9. Alcohol abuse with mild ascites based on CT. 10. Electrolyte abnormalities. 11. Obstructive sleep issues with snoring. 12. Left leg ecchymosis. RECOMMENDATIONS: Obtain blood cultures x 2. Continue Zosyn, but discontinue the vancomycin. He has no MRSA risk factors. He has some renal issues. We will consult GI, consult Renal. Follow up labs and cultures. We will add repeat LFTs, lipase to redraw this morning, repeat his lactic acid. We will consult Pulmonary given the obstructive symptoms. His withdrawal, likely needs withdrawal protocol. He is critically ill. I spent 35 minutes. This was discussed with nursing. Thank you for the patient's care. If you have any questions, please do not hesitate to contact me. MAYA VELARDE MD DR: [email or web address] JOB#: [id number] / [id number]
--- NOTE | 2019-01-08 11:39 | PDOC2 ---
CONSULT Date of Consult Date of Consult DATE: 01/08/19 TIME: 11:13 Reason for Consult Reason for Consult: DOMONIQUE Identification/Chief Complaint Chief Complaint Unable to Obtain 2/2 Pt Intubated on MV Source Source: Chart review History of Present Illness Reason for Visit: Pt intubated , Hx obtained from chart review -- Patient is a 38 year old male who presented to the emergency department with complaints of vomiting blood twice prior to presentation . He has a history of daily alcohol consumption and has been drinking heavily for at least the last 7 months. He reported to the ER that he drinks on average 4-8 beers a day. Denies any pain at this time. . He reported that he has had a history of vomiting blood in the past , No other medical history or surgical history, no allergies to any medications. No smoking or tobacco use, any illicit drug use, or suicidal ideations.. He was not confused at arrival to ER . Abnormal labs in the ER He had to be intubated this am for RR of 65, Hypotensive, Tachy cardiac Past Medical History Hepatobiliary: Cirrhosis Past Surgical History Past Surgical History: No pertinent history Family History Family History Unable to Obtain 2/2 Pt Intubated on MV Family History: Family History Unknown Social History No ALCOHOL: heavy Drugs: None Current Problem List Problem List Problems Medical Problems: (1) Acute hepatic encephalopathy Status: Acute (2) Acute upper GI bleed Status: Acute (3) Ascites Status: Acute (4) Hypokalemia Status: Acute (5) Multiple organ system failure Status: Acute (6) Severe sepsis with acute organ dysfunction Status: Acute Current Medications Current Medications Current Medications Sodium Chloride 1,000 ml @ 1,000 mls/hr 1X ONCE IV Last administered on 01/07/19at 19:27; Start 01/07/19 at 19:30; Stop 01/07/19 at 20:29; Status DC Ondansetron HCl (Zofran) 4 mg 1X ONCE IV Last administered on 01/07/19at 19:28; Start 01/07/19 at 19:30; Stop 01/07/19 at 19:31; Status DC Pantoprazole Sodium (PROTONIX VIAL for IV PUSH) 80 mg 1X ONCE IVP Last administered on 01/07/19at 19:50; Start 01/07/19 at 20:00; Stop 01/07/19 at 20:01; Status DC Pantoprazole Sodium 80 mg/ Sodium Chloride 100 ml @ 10 mls/hr 1X ONCE IV Last administered on 01/07/19at 20:00; Start 01/07/19 at 20:00; Stop 01/08/19 at 05:59; Status DC Sodium Chloride 1,000 ml @ 1,000 mls/hr 1X ONCE IV Last administered on 01/07/19at 22:12; Start 01/07/19 at 21:00; Stop 01/07/19 at 21:59; Status DC Sodium Chloride 1,000 ml @ 1,000 mls/hr 1X ONCE IV Last administered on 01/07/19at 20:40; Start 01/07/19 at 20:45; Stop 01/07/19 at 21:44; Status DC Potassium Chloride/Sodium Chloride 1,000 ml @ 75 mls/hr 1X ONCE IV Last administered on 01/07/19at 21:16; Start 01/07/19 at 21:30; Stop 01/08/19 at 10:49; Status DC Vancomycin HCl (Vanco Per Pharmacy) 1 each PRN DAILY PRN MC SEE COMMENTS Last administered on 01/08/19at 00:43; Start 01/07/19 at 21:00; Stop 01/08/19 at 06:39; Status DC Piperacillin Sod/ Tazobactam Sod (Zosyn Per Pharmacy) 1 each PRN DAILY PRN MC SEE COMMENTS; Start 01/07/19 at 21:00 Piperacillin Sod/ Tazobactam Sod 3.375 gm/Sodium Chloride 50 ml @ 100 mls/hr Q6HRS IV Last administered on 01/08/19at 06:09; Start 01/07/19 at 22:00 Vancomycin HCl 2 gm/Sodium Chloride 500 ml @ 250 mls/hr 1X ONCE IV Last administered on 01/07/19at 22:11; Start 01/07/19 at 22:00; Stop 01/07/19 at 23:59; Status DC Lorazepam (Ativan Inj) 1 mg 1X ONCE IV Last administered on 01/07/19at 23:22; Start 01/07/19 at 23:30; Stop 01/07/19 at 23:31; Status DC Lorazepam (Ativan Inj) 2 mg STK-MED ONCE .ROUTE ; Start 01/07/19 at 23:20; Stop 01/07/19 at 23:21; Status DC Vancomycin HCl 1.5 gm/Sodium Chloride 500 ml @ 250 mls/hr Q12H IV ; Start 01/08/19 at 10:00; Stop 01/08/19 at 06:39; Status DC Vancomycin HCl (Vancomycin Trough Level) 1 each 1X ONCE MC ; Start 01/09/19 at 09:30; Stop 01/09/19 at 09:31 Ondansetron HCl (Zofran) 4 mg PRN Q6HRS PRN IVP NAUSEA/VOMITING; Start 01/08 at 04:00 Pantoprazole Sodium 80 mg/ Sodium Chloride 100 ml @ 10 mls/hr Q10H IV Last administered on 01/08/19at 06:08; Start 01/08/19 at 06:00 Multivitamins 10 ml/Thiamine HCl 100 mg/Folic Acid 1 mg/Sodium Chloride 1,011.2 ml @ 100 mls/ hr DAILY IV Last administered on 01/08/19at 09:43; Start 01/08/19 at 09:00; Stop 01/12/19 at 19:07 Lorazepam (Ativan Inj) 2 mg PRN Q1HR PRN IV For CIWA 8-14 Last administered on 01/08/19at 08:24; Start 01/08/19 at 07:15 Lorazepam (Ativan Inj) 4 mg PRN Q1HR PRN IV For CIWA 15 or greater; Start 01/08/19 at 07:15 Haloperidol Lactate (Haldol Inj) 5 mg PRN Q4HRS PRN IVP Hallucinatns,Confusn ,Delirium; Start 01/08/19 at 07:15 Diphenhydramine HCl (Benadryl) 25 mg PRN Q15MIN PRN IVP EPS symptoms 2'Haldol admin; Start 01/08/19 at 07:15 Clonidine HCl (Catapres) 0.1 mg PRN Q1HR PRN PO SBP > 180 or DBP > 100, MRX3; Start 01/08/19 at 07:15 Sodium Bicarbonate (Sodium Bicarb Adult 8.4% Syr) 50 meq 1X ONCE IV Last administered on 01/08/19at 08:04; Start 01/08/19 at 08:00; Stop 01/08/19 at 08:01; Status DC Propofol 100 ml @ As Directed STK-MED ONCE IV ; Start 01/08/19 at 08:19; Stop 01/08/19 at 08:19; Status DC Succinylcholine Chloride (Anectine) 200 mg STK-MED ONCE .ROUTE ; Start 01/08/19 at 08:19; Stop 01/08/19 at 08:19; Status DC Propofol 100 ml @ As Directed STK-MED ONCE IV ; Start 01/08/19 at 08:29; Stop 01/08/19 at 08:30; Status DC Fentanyl Citrate 30 ml @ 0 mls/hr CONT PRN PRN IV PER PROTOCOL Last administered on 01/08/19at 09:40; Start 01/08/19 at 09:00 Naloxone HCl (Narcan) 0.4 mg PRN Q2MIN PRN IV SEE INSTRUCTIONS; Start 01/08/19 at 09:00 Sodium Chloride 1,000 ml @ 25 mls/hr Q24H IV Last administered on 01/08/19at 09:43; Start 01/08/19 at 08:54 Fentanyl Citrate (Fentanyl 2ml Vial) 100 mcg STK-MED ONCE .ROUTE ; Start 01/08/19 at 08:55; Stop 01/08/19 at 08:55; Status DC Octreotide Acetate 500 mcg/ Sodium Chloride 101 ml @ 0 mls/hr CONT PRN IV SEE I/O RECORD; Start 01/08/19 at 09:00 Phytonadione (Vitamin K Ampule) 10 mg 1X ONCE SQ Last administered on 01/08/19at 09:56; Start 01/08/19 at 09:15; Stop 01/08/19 at 09:16; Status DC Metoclopramide HCl (Reglan Vial) 10 mg 1X ONCE IVP ; Start 01/08/19 at 11:00; Stop 01/08/19 at 11:01; Status DC Midazolam HCl (Versed) 5 mg STK-MED ONCE .ROUTE ; Start 01/08/19 at 09:00; Stop 01/08/19 at 09:01; Status DC Acetaminophen (Tylenol) 500 mg PRN Q6HRS PRN PO MILD PAIN / TEMP; Start 01/08/19 at 09:15 Tramadol HCl (Ultram) 50 mg PRN Q6HRS PRN PO PAIN MODERATE; Start 01/08/19 at 09:15 Morphine Sulfate (Morphine Sulfate) 2 mg PRN Q2HR PRN IV PAIN; Start 01/08/19 at 09:15 Ondansetron HCl (Zofran) 4 mg PRN Q6HRS PRN IVP NAUSEA/VOMITING; Start 01/08/19 at 09:15 Fentanyl Citrate (Fentanyl 2ml Vial) 100 mcg 1X ONCE IVP Last administered on 01/08/19at 09:42; Start 01/08/19 at 09:45; Stop 01/08/19 at 09:46; Status DC Midazolam HCl (Versed) 5 mg 1X ONCE IV Last administered on 01/08/19at 09:41; Start 01/08/19 at 09:45; Stop 01/08/19 at 09:46; Status DC Succinylcholine Chloride (Anectine) 200 mg 1X ONCE IV Last administered on 01/08/19at 09:41; Start 01/08/19 at 09:45; Stop 01/08/19 at 09:46; Status DC Propofol 100 ml @ 1.524 mls/ hr CONT PRN IV SEE I/O RECORD Last administered on 01/08/19at 09:46; Start 01/08/19 at 09:45 Allergies Allergies: Coded Allergies: No Known Drug Allergies (Unverified , 01/07/19) ROS Review of System Unable to obtain Physical Exam Physical Exam GEN: Intubated on MV HEEN: Intubated NECK: supple CVS: S1S2 RESP: Intubated, decreased at bases, GI: Distended : Pollard+ Neuro- Intubated and sedated Skin No rash Vital Signs Vital Signs Date Time Temp Pulse Resp B/P (MAP) Pulse Ox O2 Delivery O2 Flow Rate FiO2 01/08/19 10:24 98.5 116 32 100/56 98.5 01/08/19 10:00 100 Ventilator 01/08/19 09:42 2.0 Assessment & Plan DOMONIQUE - Pre-renal 2/2 Hypotension /Lactic acidosis/ Improving with IVF , UOP adequate S/P PRBC and FFP as well Ct scan- Unremarkable Kidneys, UA micr hematuria (? Pollard sample) Metabolic acidosis - 2/2 lactic acidosis Improving, Monitor Acute respi falure, - Intubated on MV Hematemesis- Heavy drinker, Currently on PPI gtt , EGD scheduled Anemia- - acute , s/p PRBC Scheduled for EGD Hypotension - On pressors Coagulopathy - s/p Vit K , abd FFP Hepatic Encephalopathy Transaminitis - Bili elevated as well Dw RN, no family at bedside Labs Labs Laboratory Tests Test 01/07/19 19:00 01/07/19 19:13 01/07/19 22:35 01/08/19 00:20 White Blood Count 24.7 x10^3/uL (4.0-11.0) Red Blood Count 2.30 x10^6/uL (4.30-5.70) Hemoglobin 7.6 g/dL (13.0-17.5) 6.3 g/dL (13.0-17.5) Hematocrit 22.4 % (39.0-53.0) 18.4 % (39.0-53.0) Mean Corpuscular Volume 97 fL (79-100) Mean Corpuscular Hemoglobin 33 pg (25-35) Mean Corpuscular Hemoglobin Concent 34 g/dL (31-37) 34 g/dL (31-37) Red Cell Distribution Width 14.6 % (11.5-14.5) Platelet Count 168 x10^3/uL (140-400) Neutrophils (%) (Auto) 81 % (31-73) Lymphocytes (%) (Auto) 8 % (24-48) Monocytes (%) (Auto) 11 % (0-9) Eosinophils (%) (Auto) 0 % (0-3) Basophils (%) (Auto) 1 % (0-3) Neutrophils # (Auto) 20.0 x10^3/uL (1.8-7.7) Lymphocytes # (Auto) 1.9 x10^3/uL (1.0-4.8) Monocytes # (Auto) 2.6 x10^3/uL (0.0-1.1) Eosinophils # (Auto) 0.0 x10^3/uL (0.0-0.7) Basophils # (Auto) 0.2 x10^3/uL (0.0-0.2) Segmented Neutrophils % 82 % (35-66) Band Neutrophils % 2 % (0-9) Lymphocytes % 6 % (24-48) Monocytes % 10 % (0-10) Toxic Granulation Slight Platelet Estimate Adequate (ADEQUATE) Polychromasia Slight Anisocytosis Slight Prothrombin Time 21.7 SEC (11.7-14.0) Prothromb Time International Ratio 1.9 (0.8-1.1) Activated Partial Thromboplast Time 43 SEC (24-38) Sodium Level 124 mmol/L (136-145) Potassium Level 2.9 mmol/L (3.5-5.1) Chloride Level 81 mmol/L (98-107) Carbon Dioxide Level 13 mmol/L (21-32) Anion Gap 30 (6-14) Blood Urea Nitrogen 35 mg/dL (8-26) Creatinine 1.7 mg/dL (0.7-1.3) Estimated GFR (Cockcroft-Gault) 45.3 BUN/Creatinine Ratio 21 (6-20) Glucose Level 125 mg/dL (70-99) Lactic Acid Level 21.1 mmol/L (0.4-2.0) 17.3 mmol/L (0.4-2.0) Calcium Level 7.6 mg/dL (8.5-10.1) Magnesium Level 1.8 mg/dL (1.8-2.4) Total Bilirubin 8.0 mg/dL (0.2-1.0) Aspartate Amino Transf (AST/SGOT) 304 U/L (15-37) Alanine Aminotransferase (ALT/SGPT) 109 U/L (16-63) Alkaline Phosphatase 207 U/L (46-116) Creatine Kinase 965 U/L (39-308) Creatine Kinase MB (Mass) 9.6 ng/mL (0.0-3.6) Creatine Kinase MB Relative Index 1.0 % (0-4) Troponin I Quantitative 0.036 ng/mL (0.000-0.055) HC-Dgo-F-Type Natriuretic Peptide 352 pg/mL (0-124) Total Protein 6.2 g/dL (6.4-8.2) Albumin 1.8 g/dL (3.4-5.0) Albumin/Globulin Ratio 0.4 (1.0-1.7) Lipase 627 U/L (73-393) Ethyl Alcohol Level < 10 mg/dL (0-10) Glucose (Fingerstick) 114 mg/dL (70-99) Ammonia 90 mcmol/L (11-34) O2 Saturation 96 % (92-99) Arterial Blood pH 7.43 (7.35-7.45) Arterial Blood pCO2 at Patient Temp 19 mmHg (35-46) Arterial Blood pO2 at Patient Temp 89 mmHg (85-108) Arterial Blood HCO3 13 mmol/L (21-28) Arterial Blood Base Excess -10 mmol/L (-3-3) FiO2 21 Test 01/08/19 01:20 01/08/19 04:50 01/08/19 06:00 01/08/19 06:29 White Blood Count 22.5 x10^3/uL (4.0-11.0) 22.4 x10^3/uL (4.0-11.0) Red Blood Count 2.43 x10^6/uL (4.30-5.70) 2.20 x10^6/uL (4.30-5.70) Hemoglobin 7.9 g/dL (13.0-17.5) 7.3 g/dL (13.0-17.5) Hematocrit 23.7 % (39.0-53.0) 21.1 % (39.0-53.0) Mean Corpuscular Volume 98 fL (79-100) 96 fL (79-100) Mean Corpuscular Hemoglobin 33 pg (25-35) 33 pg (25-35) Mean Corpuscular Hemoglobin Concent 34 g/dL (31-37) 35 g/dL (31-37) Red Cell Distribution Width 14.6 % (11.5-14.5) 14.2 % (11.5-14.5) Platelet Count 148 x10^3/uL (140-400) 157 x10^3/uL (140-400) Stool Occult Blood Positive (NEG) Neutrophils (%) (Auto) 81 % (31-73) Lymphocytes (%) (Auto) 11 % (24-48) Monocytes (%) (Auto) 8 % (0-9) Eosinophils (%) (Auto) 0 % (0-3) Basophils (%) (Auto) 1 % (0-3) Neutrophils # (Auto) 18.0 x10^3/uL (1.8-7.7) Lymphocytes # (Auto) 2.4 x10^3/uL (1.0-4.8) Monocytes # (Auto) 1.8 x10^3/uL (0.0-1.1) Eosinophils # (Auto) 0.0 x10^3/uL (0.0-0.7) Basophils # (Auto) 0.2 x10^3/uL (0.0-0.2) Sodium Level 129 mmol/L (136-145) Potassium Level 3.2 mmol/L (3.5-5.1) Chloride Level 92 mmol/L (98-107) Carbon Dioxide Level 19 mmol/L (21-32) Anion Gap 18 (6-14) Blood Urea Nitrogen 34 mg/dL (8-26) Creatinine 1.4 mg/dL (0.7-1.3) Estimated GFR (Cockcroft-Gault) 56.7 Glucose Level 131 mg/dL (70-99) Calcium Level 7.0 mg/dL (8.5-10.1) Total Bilirubin 9.7 mg/dL (0.2-1.0) Direct Bilirubin 8.0 mg/dL (0.0-0.2) Aspartate Amino Transf (AST/SGOT) 403 U/L (15-37) Alanine Aminotransferase (ALT/SGPT) 144 U/L (16-63) Alkaline Phosphatase 176 U/L (46-116) Total Protein 5.7 g/dL (6.4-8.2) Albumin 1.7 g/dL (3.4-5.0) Lipase 905 U/L (73-393) Procalcitonin 2.28 ng/mL (0.00-0.10) Urine Collection Type Unknown Urine Color Yellow Urine Clarity Clear Urine pH 6.0 Urine Specific [place] 1.015 Urine Protein Negative mg/dL (NEG-TRACE) Urine Glucose (UA) Negative mg/dL (NEG) Urine Ketones (Stick) Negative mg/dL (NEG) Urine Blood Moderate (NEG) Urine Nitrite Negative (NEG) Urine Bilirubin Moderate (NEG) Urine Urobilinogen Dipstick 1.0 mg/dL (0.2 mg/dL) Urine Leukocyte Esterase Moderate (NEG) Urine RBC 11-20 /HPF (0-2) Urine WBC 5-10 /HPF (0-4) Urine Bacteria Moderate /HPF (0-FEW) Urine Mucus Slight /LPF Urine Opiates Screen Neg (NEG) Urine Methadone Screen Neg (NEG) Urine Barbiturates Neg (NEG) Urine Phencyclidine Screen Neg (NEG) Urine Amphetamine/Methamphetamine Neg (NEG) Urine Benzodiazepines Screen Neg (NEG) Urine Cocaine Screen Neg (NEG) Urine Cannabinoids Screen Neg (NEG) Urine Ethyl Alcohol Neg (NEG) Test 01/08/19 07:31 01/08/19 09:40 01/08/19 09:43 Lactic Acid Level 10.1 mmol/L (0.4-2.0) Hemoglobin 7.0 g/dL (13.0-17.5) Hematocrit 20.3 % (39.0-53.0) Mean Corpuscular Hemoglobin Concent 35 g/dL (31-37) Hepatitis A IgM Antibody Nonreactive (Nonreactive) Hepatitis B Surface Antigen Nonreactive (Nonreactive) Hepatitis B Core IgM Antibody Nonreactive (Nonreactive) Hepatitis C IgG Antibody Reactive (Nonreactive) O2 Saturation 98 % (92-99) Arterial Blood pH 7.33 (7.35-7.45) Arterial Blood pCO2 at Patient Temp 45 mmHg (35-46) Arterial Blood pO2 at Patient Temp 134 mmHg (85-108) Arterial Blood HCO3 23 mmol/L (21-28) Arterial Blood Base Excess -3 mmol/L (-3-3) FiO2 100 Laboratory Tests Test 01/07/19 19:00 01/07/19 19:13 01/07/19 22:35 01/08/19 00:20 White Blood Count 24.7 x10^3/uL (4.0-11.0) Red Blood Count 2.30 x10^6/uL (4.30-5.70) Hemoglobin 7.6 g/dL (13.0-17.5) 6.3 g/dL (13.0-17.5) Hematocrit 22.4 % (39.0-53.0) 18.4 % (39.0-53.0) Mean Corpuscular Volume 97 fL (79-100) Mean Corpuscular Hemoglobin 33 pg (25-35) Mean Corpuscular Hemoglobin Concent 34 g/dL (31-37) 34 g/dL (31-37) Red Cell Distribution Width 14.6 % (11.5-14.5) Platelet Count 168 x10^3/uL (140-400) Neutrophils (%) (Auto) 81 % (31-73) Lymphocytes (%) (Auto) 8 % (24-48) Monocytes (%) (Auto) 11 % (0-9) Eosinophils (%) (Auto) 0 % (0-3) Basophils (%) (Auto) 1 % (0-3) Neutrophils # (Auto) 20.0 x10^3/uL (1.8-7.7) Lymphocytes # (Auto) 1.9 x10^3/uL (1.0-4.8) Monocytes # (Auto) 2.6 x10^3/uL (0.0-1.1) Eosinophils # (Auto) 0.0 x10^3/uL (0.0-0.7) Basophils # (Auto) 0.2 x10^3/uL (0.0-0.2) Segmented Neutrophils % 82 % (35-66) Band Neutrophils % 2 % (0-9) Lymphocytes % 6 % (24-48) Monocytes % 10 % (0-10) Toxic Granulation Slight Platelet Estimate Adequate (ADEQUATE) Polychromasia Slight Anisocytosis Slight Prothrombin Time 21.7 SEC (11.7-14.0) Prothromb Time International Ratio 1.9 (0.8-1.1) Activated Partial Thromboplast Time 43 SEC (24-38) Sodium Level 124 mmol/L (136-145) Potassium Level 2.9 mmol/L (3.5-5.1) Chloride Level 81 mmol/L (98-107) Carbon Dioxide Level 13 mmol/L (21-32) Anion Gap 30 (6-14) Blood Urea Nitrogen 35 mg/dL (8-26) Creatinine 1.7 mg/dL (0.7-1.3) Estimated GFR (Cockcroft-Gault) 45.3 BUN/Creatinine Ratio 21 (6-20) Glucose Level 125 mg/dL (70-99) Lactic Acid Level 21.1 mmol/L (0.4-2.0) 17.3 mmol/L (0.4-2.0) Calcium Level 7.6 mg/dL (8.5-10.1) Magnesium Level 1.8 mg/dL (1.8-2.4) Total Bilirubin 8.0 mg/dL (0.2-1.0) Aspartate Amino Transf (AST/SGOT) 304 U/L (15-37) Alanine Aminotransferase (ALT/SGPT) 109 U/L (16-63) Alkaline Phosphatase 207 U/L (46-116) Creatine Kinase 965 U/L (39-308) Creatine Kinase MB (Mass) 9.6 ng/mL (0.0-3.6) Creatine Kinase MB Relative Index 1.0 % (0-4) Troponin I Quantitative 0.036 ng/mL (0.000-0.055) KJ-Lvi-S-Type Natriuretic Peptide 352 pg/mL (0-124) Total Protein 6.2 g/dL (6.4-8.2) Albumin 1.8 g/dL (3.4-5.0) Albumin/Globulin Ratio 0.4 (1.0-1.7) Lipase 627 U/L (73-393) Ethyl Alcohol Level < 10 mg/dL (0-10) Glucose (Fingerstick) 114 mg/dL (70-99) Ammonia 90 mcmol/L (11-34) O2 Saturation 96 % (92-99) Arterial Blood pH 7.43 (7.35-7.45) Arterial Blood pCO2 at Patient Temp 19 mmHg (35-46) Arterial Blood pO2 at Patient Temp 89 mmHg (85-108) Arterial Blood HCO3 13 mmol/L (21-28) Arterial Blood Base Excess -10 mmol/L (-3-3) FiO2 21 Test 01/08/19 01:20 01/08/19 04:50 01/08/19 06:00 01/08/19 06:29 White Blood Count 22.5 x10^3/uL (4.0-11.0) 22.4 x10^3/uL (4.0-11.0) Red Blood Count 2.43 x10^6/uL (4.30-5.70) 2.20 x10^6/uL (4.30-5.70) Hemoglobin 7.9 g/dL (13.0-17.5) 7.3 g/dL (13.0-17.5) Hematocrit 23.7 % (39.0-53.0) 21.1 % (39.0-53.0) Mean Corpuscular Volume 98 fL (79-100) 96 fL (79-100) Mean Corpuscular Hemoglobin 33 pg (25-35) 33 pg (25-35) Mean Corpuscular Hemoglobin Concent 34 g/dL (31-37) 35 g/dL (31-37) Red Cell Distribution Width 14.6 % (11.5-14.5) 14.2 % (11.5-14.5) Platelet Count 148 x10^3/uL (140-400) 157 x10^3/uL (140-400) Stool Occult Blood Positive (NEG) Neutrophils (%) (Auto) 81 % (31-73) Lymphocytes (%) (Auto) 11 % (24-48) Monocytes (%) (Auto) 8 % (0-9) Eosinophils (%) (Auto) 0 % (0-3) Basophils (%) (Auto) 1 % (0-3) Neutrophils # (Auto) 18.0 x10^3/uL (1.8-7.7) Lymphocytes # (Auto) 2.4 x10^3/uL (1.0-4.8) Monocytes # (Auto) 1.8 x10^3/uL (0.0-1.1) Eosinophils # (Auto) 0.0 x10^3/uL (0.0-0.7) Basophils # (Auto) 0.2 x10^3/uL (0.0-0.2) Sodium Level 129 mmol/L (136-145) Potassium Level 3.2 mmol/L (3.5-5.1) Chloride Level 92 mmol/L (98-107) Carbon Dioxide Level 19 mmol/L (21-32) Anion Gap 18 (6-14) Blood Urea Nitrogen 34 mg/dL (8-26) Creatinine 1.4 mg/dL (0.7-1.3) Estimated GFR (Cockcroft-Gault) 56.7 Glucose Level 131 mg/dL (70-99) Calcium Level 7.0 mg/dL (8.5-10.1) Total Bilirubin 9.7 mg/dL (0.2-1.0) Direct Bilirubin 8.0 mg/dL (0.0-0.2) Aspartate Amino Transf (AST/SGOT) 403 U/L (15-37) Alanine Aminotransferase (ALT/SGPT) 144 U/L (16-63) Alkaline Phosphatase 176 U/L (46-116) Total Protein 5.7 g/dL (6.4-8.2) Albumin 1.7 g/dL (3.4-5.0) Lipase 905 U/L (73-393) Procalcitonin 2.28 ng/mL (0.00-0.10) Urine Collection Type Unknown Urine Color Yellow Urine Clarity Clear Urine pH 6.0 Urine Specific [place] 1.015 Urine Protein Negative mg/dL (NEG-TRACE) Urine Glucose (UA) Negative mg/dL (NEG) Urine Ketones (Stick) Negative mg/dL (NEG) Urine Blood Moderate (NEG) Urine Nitrite Negative (NEG) Urine Bilirubin Moderate (NEG) Urine Urobilinogen Dipstick 1.0 mg/dL (0.2 mg/dL) Urine Leukocyte Esterase Moderate (NEG) Urine RBC 11-20 /HPF (0-2) Urine WBC 5-10 /HPF (0-4) Urine Bacteria Moderate /HPF (0-FEW) Urine Mucus Slight /LPF Urine Opiates Screen Neg (NEG) Urine Methadone Screen Neg (NEG) Urine Barbiturates Neg (NEG) Urine Phencyclidine Screen Neg (NEG) Urine Amphetamine/Methamphetamine Neg (NEG) Urine Benzodiazepines Screen Neg (NEG) Urine Cocaine Screen Neg (NEG) Urine Cannabinoids Screen Neg (NEG) Urine Ethyl Alcohol Neg (NEG) Test 01/08/19 07:31 01/08/19 09:40 01/08/19 09:43 Lactic Acid Level 10.1 mmol/L (0.4-2.0) Hemoglobin 7.0 g/dL (13.0-17.5) Hematocrit 20.3 % (39.0-53.0) Mean Corpuscular Hemoglobin Concent 35 g/dL (31-37) Hepatitis A IgM Antibody Nonreactive (Nonreactive) Hepatitis B Surface Antigen Nonreactive (Nonreactive) Hepatitis B Core IgM Antibody Nonreactive (Nonreactive) Hepatitis C IgG Antibody Reactive (Nonreactive) O2 Saturation 98 % (92-99) Arterial Blood pH 7.33 (7.35-7.45) Arterial Blood pCO2 at Patient Temp 45 mmHg (35-46) Arterial Blood pO2 at Patient Temp 134 mmHg (85-108) Arterial Blood HCO3 23 mmol/L (21-28) Arterial Blood Base Excess -3 mmol/L (-3-3) FiO2 100 Review All relevant outside records, renal labs, imaging studies, telemetry/EKG's were reviewed. Images Images CT scan w/o contrast-- Liver: No focal hepatic lesion. Gallbladder and biliary: Gallbladder is contracted and poorly evaluated. Normal caliber bile ducts. Spleen: Normal spleen. Pancreas: The noncontrast pancreas is homogeneous in attenuation without peripancreatic inflammatory changes. Adrenal glands: Normal adrenal glands. Kidneys and ureters: No opaque urinary calculi. Normal kidneys and ureters. GI tract: The stomach is decompressed and poorly evaluated. Normal caliber small bowel and colon. Appendix is not seen. Vascular structures: Moderate aortoiliac atherosclerotic disease Lymph nodes: No lymphadenopathy in the abdomen or pelvis. PELVIS: Genitourinary system: Bladder is well-distended. Hysterectomy SKELETAL STRUCTURES AND SOFT TISSUES: Degenerative changes of the spine. IMPRESSION: Mild abdominal and perihepatic ascites. No focal hepatic lesion, allowing for lack of intravenous contrast. CxR-- 1. Prominence of the right peritracheal stripe. Follow-up is recommended on examination with a better inspiration to exclude lymphadenopathy or mass. 2. Small inspiration with paramediastinal and basilar atelectasis. 3. No evidence of obstruction. GIANNI HAY MD Jan 08, 2019 11:39
[2019-01-08 11:42] LABS: BASE EXCESS ABG -4 mmol/L (-3-3); HCO3 ABG 22 mmol/L (21-28); PCO2 ABG 39 mmHg (35-46); PO2 ABG 99 mmHg (85-108); SAT O2 ABG 96 % (92-99)
[2019-01-08 11:44] LABS: FIO2 ABG 100
[2019-01-08 11:46] LABS: HEMATOCRIT 24.3 % (39.0-53.0); HEMOGLOBIN 8.4 g/dL (13.0-17.5); RED BLOOD COUNT 2.5 x10^6/uL (4.30-5.70); RED CELL DISTRIBUTION WIDTH 14.6 % (11.5-14.5); WHITE BLOOD COUNT 9.9 x10^3/uL (4.0-11.0)
--- NOTE | 2019-01-08 11:53 | CONS ---
DATE OF CONSULTATION: 01/08/2019 ATTENDING PHYSICIAN: Niharika Borja MD REASON FOR CONSULTATION: The patient is seen in pulmonary consultation at the request of Dr. Borja for acute respiratory failure, multiorgan failure, end-stage liver disease. HISTORY OF PRESENT ILLNESS: The patient is a 38-year-old according to his and mother, he has had previous episodes of liver disease, but has never been hospitalized or intubated. He presented with hematemesis. Apparently, he had had some hematemesis at home for several days, but failed to notify anyone. He was admitted. He was found to be hypotensive. Liver chemistries were obtained. He has significant derangement in his electrolytes. His BUN and creatinine elevated. He came in with a hemoglobin of 7.6 dropped down to 6.3. He is currently receiving transfusion. His hepatitis C was reactive. Hepatitis B antigen and core IgM antibody was negative. Stool culture was positive for blood. Urine toxicology screen was negative for drugs. UA was noted. His electrolytes once again were deranged. His BUN and creatinine were elevated. AST and ALT were elevated. Ammonia level was not obtained. His procalcitonin was 2.28. His lactic acid level was initially 17 down to 10. The patient this morning was emergently intubated as a consequence of severe respiratory distress. An arterial blood gas revealed a pH of 7.43, PaCO2 of 19, pO2 of 89, bicarb of 13. He is currently being supported with IV fluids, transfusion TPN. I was asked to see him in consultation. His x-ray revealed some perihilar infiltrates. PAST MEDICAL HISTORY: Remarkable for alcoholism, end-stage liver disease. PAST SURGICAL HISTORY: No recent major surgeries. FAMILY HISTORY: Unknown. ALLERGIES: No known drug allergies. SOCIAL HISTORY: According to his , he is self-employed as a frye. Does not smoke cigarettes. Drinks on a daily basis. PHYSICAL EXAMINATION: VITAL SIGNS: His vital signs were currently stable. O2 saturation was greater than 92%. He is on assist control. HEENT: Eyes, the sclera was icteric. NECK: Jugular venous distention was elevated. CHEST: Full expansion. LUNGS: Adequate air flow with crackles throughout both lung chan. CARDIOVASCULAR: Regular rate and rhythm with S1, S2, no S3. ABDOMEN: Distended. EXTREMITIES: No pitting edema. NEUROLOGIC: The patient was sedated. LABORATORY DATA: As indicated above. IMPRESSION: 1. Acute respiratory failure, multifactorial, secondary to multiorgan failure. 2. End-stage liver disease. 3. Multiorgan failure. 4. Renal failure. 5. Acute gastrointestinal bleed. 6. Possible sepsis. 7. Leukocytosis. 8. Hematemesis. 9. Rhabdomyolysis. 10. Alcohol abuse. 11. Ascites. 12. Electrolyte abnormalities. PLAN: 1. Continue current AC mode. Repeat arterial blood gas. 2. Continue antibiotics per Infectious Disease service. 3. IV fluids. 4. Transfuse. 5. Monitor hemoglobin and hematocrit. 6. Follow GI recommendation. 7. Alcohol withdrawal protocol. The above was discussed with the and mother at the bedside. They were aware that the patient is critically ill and may not survive this admission. Total cumulative critical care time was 65 minutes. CARROLL BARRETT MD DR: GA/leticia JOB#: [id number] / [id number]
[2019-01-08] MEDS: VECURONIUM BOLUS 10 MG VIAL. IV PRN ×2 (12:02→16:24)
--- NOTE | 2019-01-08 13:53 | NUR ---
SS following for discharge planning. SS reviewed pt chart. Pt is from home with spouse and is currently on the vent. SS will continue to follow for discharge planning.
--- NOTE | 2019-01-08 14:19 | NUR ---
1145: When pt starts to wake up through sedation. Peak pressures on the vent go to the upper 60's. Suctioned multiple times without improvement. Sedation increased and bolus multiple time with no decrease to the peak pressures. Dr Oliveira notified and orders received. Paralytic given as ordered. Pt resting better at this time. Family at bedside and updated on pts condition.
[2019-01-08] MEDS ORDERED: fentaNYL STANDARD PCA 600 MCG/30 ML PCA.SYRING IV ONE (15:25)
[2019-01-08 16:17] LABS: HEMATOCRIT 23.6 % (39.0-53.0); HEMOGLOBIN 8.3 g/dL (13.0-17.5)
[2019-01-08 16:36] LABS: PROTHROMBIN TIME PATIENT 18.3 SEC (11.7-14.0)
--- NOTE | 2019-01-08 16:54 | PDOC4 ---
PROCEDURE Procedure EGD Indication: UGI bleeding Meds: none save for ventilator control. Findings: E--NO VARICES. Erosions distally c/w reflux/repeated emesis. One quite long narrow erosion which could have been a M-W. No active bleeding or clot. G--Not much retained blood after OG suction and Reglan. NO gastric varices. Linear erosions along the rugae in fundus and body c/w alcoholic or stress gastritis. Scattered "bruises" from OG tube. No ulcer, etc. D--Normal to second portion. elvia. well. IMP: Reflux esophagitis. ? recent M-W tear. Alcoholic gastritis. No active bleeding or clot seen. REC: D/c octreotide. Continue PPI, other treatments. Monitor for any overt bleeding. ANA MCKEON MD Jan 08, 2019 16:54
[2019-01-08] MEDS: ACETAMINOPHEN 650 MG SUPP.RECT. PR PRN (18:38)
[2019-01-08] MEDS ORDERED: LACTOBACILLUS RHAMNOSUS GG 1 CAPSULE. PO SCH (21:00)
[2019-01-09] VITALS (23 sets, daily range): BP systolic 75–161; BP diastolic 35–82
[2019-01-09] MEDS: NOREPINEPHRIN 8MG/250ML PREMIX 250 ML IV PRN (01:00)
[2019-01-09] MEDS: PANTOPRAZOLE SODIUM IV DRIP 80 MG in IV NORMAL SALINE 100ML 100 ML IV SCH (02:00)
[2019-01-09 05:28] LABS: BASO # 0.1 x10^3/uL (0.0-0.2); BASO % 1 % (0-3); EOS % 0 % (0-3); HEMATOCRIT 22.7 % (39.0-53.0); HEMOGLOBIN 7.8 g/dL (13.0-17.5); LYMPH # 2.2 x10^3/uL (1.0-4.8); LYMPH % 10 % (24-48); MEAN CORPUSCULAR HEMOGLOBIN 33 pg (25-35); MEAN CORPUSCULAR HGB CONC 35 g/dL (31-37); MEAN CORPUSCULAR VOLUME 96 fL (79-100); MONO # 1.6 x10^3/uL (0.0-1.1); MONO % 7 % (0-9); NEUT # 18.7 x10^3/uL (1.8-7.7); NEUT % 83 % (31-73); PLATELET COUNT 176 x10^3/uL (140-400); RED BLOOD COUNT 2.37 x10^6/uL (4.30-5.70); RED CELL DISTRIBUTION WIDTH 15.2 % (11.5-14.5); WHITE BLOOD COUNT 22.6 x10^3/uL (4.0-11.0)
[2019-01-09 05:57] LABS: PROTHROMBIN TIME PATIENT 18.1 SEC (11.7-14.0)
[2019-01-09 05:58] LABS: ALBUMIN 1.5 g/dL (3.4-5.0); ALBUMIN/GLOBULIN RATIO 0.4 (1.0-1.7); CALCIUM 6.5 mg/dL (8.5-10.1); CREATININE 1.6 mg/dL (0.7-1.3); GFR 48.6; POTASSIUM 3.3 mmol/L (3.5-5.1); TOTAL BILIRUBIN 11.3 mg/dL (0.2-1.0); TOTAL PROTEIN 5.5 g/dL (6.4-8.2)
[2019-01-09] MEDS: PIPERACILLIN/TAZOBACTAM 3.375 GM in IV NORMAL SALINE 50ML 50 ML IV SCH ×6 (05:59→23:39)
--- NOTE | 2019-01-09 07:14 | PDOC ---
Infectious Disease Note Subjective Subjective Intubated/sedated ROS ROS o/w neg Vital Sign Vital Signs Vital Signs Date Time Temp Pulse Resp B/P (MAP) Pulse Ox O2 Delivery O2 Flow Rate FiO2 01/09/19 06:01 104 24 108/50 (69) 100 Ventilator 01/09/19 04:21 2.0 01/09/19 04:00 98.9 98.9 Physical Exam PHYSICAL EXAM CONSTITUTIONAL: Intubated/ssedted HEENT: Pupils equal and reactive. He has icteric sclerae. ETT NECK: Supple, no JVD. LUNGS: Without wheeze, no rhonchi. HEART: S1/S2. ABDOMEN: Obese, soft, no guarding, no rebound. : - esteves EXTREMITIES: Without clubbing, cyanosis. His left lower extremity has a large ecchymosis from his thigh down to his lower third of the tibial area. There is no gross erythema. No knee effusion. There is no warmth. It is nontender. His right great toenail has a small trunk that is missing out of it, but there is no surrounding erythema. It is nontender. There is no swelling. SKIN: Otherwise without signs of rash. NEUROLOGIC: Sedated PSYCHIATRIC: Unable to assess IVs: - PIV s clean Labs Lab Laboratory Tests Test 01/08/19 07:31 01/08/19 09:40 01/08/19 09:43 01/08/19 11:30 Lactic Acid Level 10.1 mmol/L (0.4-2.0) 7.0 mmol/L (0.4-2.0) Hemoglobin 7.0 g/dL (13.0-17.5) 8.4 g/dL (13.0-17.5) Hematocrit 20.3 % (39.0-53.0) 24.3 % (39.0-53.0) Mean Corpuscular Hemoglobin Concent 35 g/dL (31-37) 35 g/dL (31-37) Hepatitis A IgM Antibody Nonreactive (Nonreactive) Hepatitis B Surface Antigen Nonreactive (Nonreactive) Hepatitis B Core IgM Antibody Nonreactive (Nonreactive) Hepatitis C IgG Antibody Reactive (Nonreactive) O2 Saturation 98 % (92-99) Arterial Blood pH 7.33 (7.35-7.45) Arterial Blood pCO2 at Patient Temp 45 mmHg (35-46) Arterial Blood pO2 at Patient Temp 134 mmHg (85-108) Arterial Blood HCO3 23 mmol/L (21-28) Arterial Blood Base Excess -3 mmol/L (-3-3) FiO2 100 White Blood Count 9.9 x10^3/uL (4.0-11.0) Red Blood Count 2.50 x10^6/uL (4.30-5.70) Mean Corpuscular Volume 97 fL (79-100) Mean Corpuscular Hemoglobin 34 pg (25-35) Red Cell Distribution Width 14.6 % (11.5-14.5) Platelet Count 157 x10^3/uL (140-400) Ammonia 68 mcmol/L (11-34) Test 01/08/19 11:42 01/08/19 16:00 01/09/19 05:10 O2 Saturation 96 % (92-99) Arterial Blood pH 7.36 (7.35-7.45) Arterial Blood pCO2 at Patient Temp 39 mmHg (35-46) Arterial Blood pO2 at Patient Temp 99 mmHg (85-108) Arterial Blood HCO3 22 mmol/L (21-28) Arterial Blood Base Excess -4 mmol/L (-3-3) FiO2 100 Hemoglobin 8.3 g/dL (13.0-17.5) 7.8 g/dL (13.0-17.5) Hematocrit 23.6 % (39.0-53.0) 22.7 % (39.0-53.0) Mean Corpuscular Hemoglobin Concent 35 g/dL (31-37) 35 g/dL (31-37) Prothrombin Time 18.3 SEC (11.7-14.0) 18.1 SEC (11.7-14.0) Prothromb Time International Ratio 1.6 (0.8-1.1) 1.5 (0.8-1.1) White Blood Count 22.6 x10^3/uL (4.0-11.0) Red Blood Count 2.37 x10^6/uL (4.30-5.70) Mean Corpuscular Volume 96 fL (79-100) Mean Corpuscular Hemoglobin 33 pg (25-35) Red Cell Distribution Width 15.2 % (11.5-14.5) Platelet Count 176 x10^3/uL (140-400) Neutrophils (%) (Auto) 83 % (31-73) Lymphocytes (%) (Auto) 10 % (24-48) Monocytes (%) (Auto) 7 % (0-9) Eosinophils (%) (Auto) 0 % (0-3) Basophils (%) (Auto) 1 % (0-3) Neutrophils # (Auto) 18.7 x10^3/uL (1.8-7.7) Lymphocytes # (Auto) 2.2 x10^3/uL (1.0-4.8) Monocytes # (Auto) 1.6 x10^3/uL (0.0-1.1) Eosinophils # (Auto) 0.0 x10^3/uL (0.0-0.7) Basophils # (Auto) 0.1 x10^3/uL (0.0-0.2) Sodium Level 137 mmol/L (136-145) Potassium Level 3.3 mmol/L (3.5-5.1) Chloride Level 99 mmol/L (98-107) Carbon Dioxide Level 27 mmol/L (21-32) Anion Gap 11 (6-14) Blood Urea Nitrogen 52 mg/dL (8-26) Creatinine 1.6 mg/dL (0.7-1.3) Estimated GFR (Cockcroft-Gault) 48.6 BUN/Creatinine Ratio 33 (6-20) Glucose Level 137 mg/dL (70-99) Lactic Acid Level 3.7 mmol/L (0.4-2.0) Calcium Level 6.5 mg/dL (8.5-10.1) Total Bilirubin 11.3 mg/dL (0.2-1.0) Aspartate Amino Transf (AST/SGOT) 560 U/L (15-37) Alanine Aminotransferase (ALT/SGPT) 181 U/L (16-63) Alkaline Phosphatase 133 U/L (46-116) Total Protein 5.5 g/dL (6.4-8.2) Albumin 1.5 g/dL (3.4-5.0) Albumin/Globulin Ratio 0.4 (1.0-1.7) Micro IMPRESSION: Mild abdominal and perihepatic ascites. No focal hepatic lesion, allowing for lack of intravenous contrast. Objective Assessment Hypotension - low dose Levophed 0.5 Fever - curve improving ? ID vs PRBCs vs reactive vs Withdrawl Leukocytosis - ? reactive Lactic acidosis - better Resp failure now intubated ? UTI Anemia - s/p PRBCs GI Bleed - s/p EGD 01/08 - Reflux esophagitis. ? recent M-W tear. Alcoholic gastritis. DOMONIQUE Transaminitis - better Hep C ? pancreatitis Rhabdo ETOH abuse with mild ascites Electrolyte abnormalities Obstructive resp issues Left leg echymosis Plan Plan of Care Blood cults times 2 pending from 01/08 Cont Zosyn. If worsens may need Abx expansion Add Lipase this am Repeat Procalcitonin in am F/u labs and cults. Critically ill D/w nursing MAYA VELARDE MD Jan 09, 2019 07:14
[2019-01-09 07:44] LABS: BASE EXCESS ABG 2 mmol/L (-3-3); HCO3 ABG 26 mmol/L (21-28); PCO2 ABG 38 mmHg (35-46); PO2 ABG 65 mmHg (85-108); SAT O2 ABG 92 % (92-99)
[2019-01-09] MEDS: MULTIVIT INFUSN,ADULT 4,VIT K 10 ML, THIAMINE INJ 100 MG, FOLIC ACID INJ 1 MG in IV NOR... IV SCH (08:12)
--- NOTE | 2019-01-09 08:21 | RAD ---
EXAM: CHEST ONE VIEW. HISTORY: Respiratory failure, intubated. COMPARISON: 01/08/2019. FINDINGS: A frontal view of the chest is obtained. An endotracheal tube has its tip 6 cm above the pro. A nasogastric tube has its tip below the inferior margin of the view. The inspiration is small. Right greater than left basilar airspace opacities have increased mildly. There are small bilateral pleural effusions. Prominence of the right peritracheal stripe persists. There is no pneumothorax. The heart is not enlarged. IMPRESSION: 1. Increased basilar atelectasis and infiltrate on the right greater than left. 2. Persistent prominence of the right peritracheal stripe. Attention on further follow-up. Electronically signed by: Nick Gnozalez MD (01/09/2019 8:18 AM) [facility]
--- NOTE | 2019-01-09 09:27 | PDOC ---
SUBJECTIVE ROS Intubated, sedated OBJECTIVE Vital Signs Vital Signs Date Time Temp Pulse Resp B/P (MAP) Pulse Ox O2 Delivery O2 Flow Rate FiO2 01/09/19 08:00 99.2 102 18 101/49 (66) 97 Ventilator 99.2 01/09/19 07:00 2.0 I & 0 Intake and Output 01/09/19 07:00 Intake Total 4356 ml Output Total 1849 ml Balance 2507 ml IV Total 2528 ml Blood Product 692 ml Blood Product IV Normal Saline Flush 622 ml Other 514 ml Output Urine Total 1449 ml Gastric Drainage Total 400 ml # Bowel Movements 4 PHYSICAL EXAM Physical Exam GEN: Intubated on MV HEEN: Intubated NECK: supple CVS: S1S2 RESP: Intubated, decreased at bases, GI: Distended : Pollard+ Ext: No LE edema SKIN: left lower extremity with large ecchymosis from his thigh down to his lower third of the tibial area. Neuro- Intubated and sedated Skin No rash DIAGNOSIS/ASSESSMENT Assessment & Plan DOMONIQUE - pre-renal leading to ATN 2/2 Hypotension /Lactic acidosis/ Improved with IVF , Stable today, UOP adequate Ct scan- Unremarkable Kidneys, UA micr hematuria (? Pollard sample) , ? UTI Supportive care, avoid nephrotoxins, Monitor Metabolic acidosis - 2/2 lactic acidosis Resolved Acute resp failure, - Intubated on MV Hematemesis- Heavy drinker, s/p egd 01/08- Reflux esophagitis,? 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 Anemia- - acute , s/p PRBC Stable Hypotension - On pressors Coagulopathy - s/p Vit K , abd FFP Hepatic Encephalopathy Transaminitis - Bili elevated as well Dw RN, no family at bedside COMMENT/RELEVANT DATA Meds Current Medications Medications (Trade) Dose Ordered Sig/Quyen Start Time Stop Time Status Last Admin Dose Admin Acetaminophen (Tylenol Supp) 650 mg PRN Q6HRS PRN 01/08/19 18:15 01/08/19 18:38 650 MG Acetaminophen (Tylenol) 500 mg PRN Q6HRS PRN 01/08/19 09:15 Benzocaine (Hurricaine One) 2 spray STK-MED ONCE 01/07/19 12:00 01/08/19 14:20 DC Clonidine HCl (Catapres) 0.1 mg PRN Q1HR PRN 01/08/19 07:15 Diphenhydramine HCl (Benadryl) 25 mg PRN Q15MIN PRN 01/08/19 07:15 Fentanyl Citrate (Fentanyl 2ml Vial) 100 mcg 1X ONCE 01/08/19 09:45 01/08/19 09:46 DC 01/08/19 09:42 100 MCG Haloperidol Lactate (Haldol Inj) 5 mg PRN Q4HRS PRN 01/08/19 07:15 Lactobacillus Rhamnosus (Culturelle) 1 cap BID 01/08/19 21:00 Lidocaine HCl (Xylocaine 2% Topical 5gm Tube) 5 amanda STK-MED ONCE 01/07/19 12:00 01/08/19 14:20 DC Lorazepam (Ativan Inj) 4 mg PRN Q1HR PRN 01/08/19 07:15 Metoclopramide HCl (Reglan Vial) 10 mg 1X ONCE 01/08/19 11:00 01/08/19 11:01 DC 01/08/19 14:36 10 MG Midazolam HCl 100 ml @ 5 mls/hr CONT PRN 01/08/19 11:15 01/08/19 23:59 5 MLS/HR Midazolam HCl (Versed) 5 mg 1X ONCE 01/08/19 09:45 01/08/19 09:46 DC 01/08/19 09:41 5 MG Morphine Sulfate (Morphine Sulfate) 2 mg PRN Q2HR PRN 01/08/19 09:15 Multivitamins 10 ml/Thiamine HCl 100 mg/Folic Acid 1 mg/Sodium Chloride 1,011.2 ml @ 100 mls/ hr DAILY 01/08/19 09:00 01/12/19 19:07 01/09/19 08:12 100 MLS/HR Naloxone HCl (Narcan) 0.4 mg PRN Q2MIN PRN 01/08/19 09:00 Norepinephrine Bitartrate 250 ml @ 18.938 mls/ hr CONT PRN 01/09/19 01:45 Octreotide Acetate 500 mcg/ Sodium Chloride 101 ml @ 0 mls/hr CONT PRN 01/08/19 09:00 01/08/19 16:55 DC 01/08/19 13:56 10.1 MLS/HR Ondansetron HCl (Zofran) 4 mg PRN Q6HRS PRN 01/08/19 09:15 Pantoprazole Sodium (PROTONIX VIAL for IV PUSH) 80 mg 1X ONCE 01/07/19 20:00 01/07/19 20:01 DC 01/07/19 19:50 80 MG Pantoprazole Sodium 80 mg/ Sodium Chloride 100 ml @ 10 mls/hr Q10H 01/08/19 06:00 01/09/19 02:00 10 MLS/HR Phytonadione (Vitamin K Ampule) 10 mg 1X ONCE 01/08/19 09:15 01/08/19 09:16 DC 01/08/19 09:56 10 MG Piperacillin Sod/ Tazobactam Sod (Zosyn Per Pharmacy) 1 each PRN DAILY PRN 01/07/19 21:00 Piperacillin Sod/ Tazobactam Sod 3.375 gm/Sodium Chloride 50 ml @ 100 mls/hr Q6HRS 01/07/19 22:00 01/09/19 05:59 100 MLS/HR Potassium Chloride/Sodium Chloride 1,000 ml @ 75 mls/hr 1X ONCE 01/07/19 21:30 01/08/19 10:49 DC 01/07/19 21:16 75 MLS/HR Propofol 100 ml @ 1.524 mls/ hr CONT PRN 01/08/19 09:45 01/08/19 09:46 21.343 MLS/HR Sodium Bicarbonate (Sodium Bicarb Adult 8.4% Syr) 50 meq 1X ONCE 01/08/19 08:00 01/08/19 08:01 DC 01/08/19 08:04 50 MEQ Sodium Chloride 1,000 ml @ 25 mls/hr Q24H 01/08/19 08:54 01/08/19 18:17 25 MLS/HR Succinylcholine Chloride (Anectine) 200 mg 1X ONCE 01/08/19 09:45 01/08/19 09:46 DC 01/08/19 09:41 200 MG Tramadol HCl (Ultram) 50 mg PRN Q6HRS PRN 01/08/19 09:15 Vancomycin HCl (Vanco Per Pharmacy) 1 each PRN DAILY PRN 01/07/19 21:00 01/08/19 06:39 DC 01/08/19 00:43 1 EACH Vancomycin HCl (Vancomycin Trough Level) 1 each 1X ONCE 01/09/19 09:30 01/09/19 09:31 Cancel Vancomycin HCl 1.5 gm/Sodium Chloride 500 ml @ 250 mls/hr Q12H 01/08/19 10:00 01/08/19 06:39 DC Vancomycin HCl 2 gm/Sodium Chloride 500 ml @ 250 mls/hr 1X ONCE 01/07/19 22:00 01/07/19 23:59 DC 01/07/19 22:11 250 MLS/HR Vecuronium [place] (Norcuron Bolus) 6 mg PRN Q4HRS PRN 01/08/19 12:00 01/08/19 16:24 6 MG Lab Laboratory Tests Test 01/08/19 09:40 01/08/19 09:43 01/08/19 11:30 01/08/19 11:42 Hemoglobin 7.0 g/dL (13.0-17.5) 8.4 g/dL (13.0-17.5) Hematocrit 20.3 % (39.0-53.0) 24.3 % (39.0-53.0) Mean Corpuscular Hemoglobin Concent 35 g/dL (31-37) 35 g/dL (31-37) Hepatitis A IgM Antibody Nonreactive (Nonreactive) Hepatitis B Surface Antigen Nonreactive (Nonreactive) Hepatitis B Core IgM Antibody Nonreactive (Nonreactive) Hepatitis C IgG Antibody Reactive (Nonreactive) O2 Saturation 98 % (92-99) 96 % (92-99) Arterial Blood pH 7.33 (7.35-7.45) 7.36 (7.35-7.45) Arterial Blood pCO2 at Patient Temp 45 mmHg (35-46) 39 mmHg (35-46) Arterial Blood pO2 at Patient Temp 134 mmHg (85-108) 99 mmHg (85-108) Arterial Blood HCO3 23 mmol/L (21-28) 22 mmol/L (21-28) Arterial Blood Base Excess -3 mmol/L (-3-3) -4 mmol/L (-3-3) FiO2 100 100 White Blood Count 9.9 x10^3/uL (4.0-11.0) Red Blood Count 2.50 x10^6/uL (4.30-5.70) Mean Corpuscular Volume 97 fL (79-100) Mean Corpuscular Hemoglobin 34 pg (25-35) Red Cell Distribution Width 14.6 % (11.5-14.5) Platelet Count 157 x10^3/uL (140-400) Lactic Acid Level 7.0 mmol/L (0.4-2.0) Ammonia 68 mcmol/L (11-34) Test 01/08/19 16:00 01/09/19 05:10 Hemoglobin 8.3 g/dL (13.0-17.5) 7.8 g/dL (13.0-17.5) Hematocrit 23.6 % (39.0-53.0) 22.7 % (39.0-53.0) Mean Corpuscular Hemoglobin Concent 35 g/dL (31-37) 35 g/dL (31-37) Prothrombin Time 18.3 SEC (11.7-14.0) 18.1 SEC (11.7-14.0) Prothromb Time International Ratio 1.6 (0.8-1.1) 1.5 (0.8-1.1) White Blood Count 22.6 x10^3/uL (4.0-11.0) Red Blood Count 2.37 x10^6/uL (4.30-5.70) Mean Corpuscular Volume 96 fL (79-100) Mean Corpuscular Hemoglobin 33 pg (25-35) Red Cell Distribution Width 15.2 % (11.5-14.5) Platelet Count 176 x10^3/uL (140-400) Neutrophils (%) (Auto) 83 % (31-73) Lymphocytes (%) (Auto) 10 % (24-48) Monocytes (%) (Auto) 7 % (0-9) Eosinophils (%) (Auto) 0 % (0-3) Basophils (%) (Auto) 1 % (0-3) Neutrophils # (Auto) 18.7 x10^3/uL (1.8-7.7) Lymphocytes # (Auto) 2.2 x10^3/uL (1.0-4.8) Monocytes # (Auto) 1.6 x10^3/uL (0.0-1.1) Eosinophils # (Auto) 0.0 x10^3/uL (0.0-0.7) Basophils # (Auto) 0.1 x10^3/uL (0.0-0.2) Sodium Level 137 mmol/L (136-145) Potassium Level 3.3 mmol/L (3.5-5.1) Chloride Level 99 mmol/L (98-107) Carbon Dioxide Level 27 mmol/L (21-32) Anion Gap 11 (6-14) Blood Urea Nitrogen 52 mg/dL (8-26) Creatinine 1.6 mg/dL (0.7-1.3) Estimated GFR (Cockcroft-Gault) 48.6 BUN/Creatinine Ratio 33 (6-20) Glucose Level 137 mg/dL (70-99) Lactic Acid Level 3.7 mmol/L (0.4-2.0) Calcium Level 6.5 mg/dL (8.5-10.1) Total Bilirubin 11.3 mg/dL (0.2-1.0) Aspartate Amino Transf (AST/SGOT) 560 U/L (15-37) Alanine Aminotransferase (ALT/SGPT) 181 U/L (16-63) Alkaline Phosphatase 133 U/L (46-116) Total Protein 5.5 g/dL (6.4-8.2) Albumin 1.5 g/dL (3.4-5.0) Albumin/Globulin Ratio 0.4 (1.0-1.7) Lipase 153 U/L (73-393) Results All relevant outside records, renal labs, imaging studies, telemetry/EKG's were reviewed. GIANNI HAY MD Jan 09, 2019 09:26
--- NOTE | 2019-01-09 09:29 | PDOC ---
PULMONARY PROGRESS NOTES Subjective SEDATED ON AC MODE 7 PEEP 70 % Vitals Vital Signs Date Time Temp Pulse Resp B/P (MAP) Pulse Ox O2 Delivery O2 Flow Rate FiO2 01/09/19 09:15 97 Ventilator 01/09/19 08:00 99.2 102 18 101/49 (66) 99.2 01/09/19 07:00 2.0 Lungs: Crackles Cardiovascular: S1, S2 Abdomen: Other (DISTENDED) Extremities: Other (EDEMA) Skin: Warm Labs Laboratory Tests Test 01/07/19 19:00 01/07/19 19:13 01/07/19 22:35 01/08/19 00:20 White Blood Count 24.7 x10^3/uL (4.0-11.0) Red Blood Count 2.30 x10^6/uL (4.30-5.70) Hemoglobin 7.6 g/dL (13.0-17.5) 6.3 g/dL (13.0-17.5) Hematocrit 22.4 % (39.0-53.0) 18.4 % (39.0-53.0) Mean Corpuscular Volume 97 fL (79-100) Mean Corpuscular Hemoglobin 33 pg (25-35) Mean Corpuscular Hemoglobin Concent 34 g/dL (31-37) 34 g/dL (31-37) Red Cell Distribution Width 14.6 % (11.5-14.5) Platelet Count 168 x10^3/uL (140-400) Neutrophils (%) (Auto) 81 % (31-73) Lymphocytes (%) (Auto) 8 % (24-48) Monocytes (%) (Auto) 11 % (0-9) Eosinophils (%) (Auto) 0 % (0-3) Basophils (%) (Auto) 1 % (0-3) Neutrophils # (Auto) 20.0 x10^3/uL (1.8-7.7) Lymphocytes # (Auto) 1.9 x10^3/uL (1.0-4.8) Monocytes # (Auto) 2.6 x10^3/uL (0.0-1.1) Eosinophils # (Auto) 0.0 x10^3/uL (0.0-0.7) Basophils # (Auto) 0.2 x10^3/uL (0.0-0.2) Segmented Neutrophils % 82 % (35-66) Band Neutrophils % 2 % (0-9) Lymphocytes % 6 % (24-48) Monocytes % 10 % (0-10) Toxic Granulation Slight Platelet Estimate Adequate (ADEQUATE) Polychromasia Slight Anisocytosis Slight Prothrombin Time 21.7 SEC (11.7-14.0) Prothromb Time International Ratio 1.9 (0.8-1.1) Activated Partial Thromboplast Time 43 SEC (24-38) Sodium Level 124 mmol/L (136-145) Potassium Level 2.9 mmol/L (3.5-5.1) Chloride Level 81 mmol/L (98-107) Carbon Dioxide Level 13 mmol/L (21-32) Anion Gap 30 (6-14) Blood Urea Nitrogen 35 mg/dL (8-26) Creatinine 1.7 mg/dL (0.7-1.3) Estimated GFR (Cockcroft-Gault) 45.3 BUN/Creatinine Ratio 21 (6-20) Glucose Level 125 mg/dL (70-99) Lactic Acid Level 21.1 mmol/L (0.4-2.0) 17.3 mmol/L (0.4-2.0) Calcium Level 7.6 mg/dL (8.5-10.1) Magnesium Level 1.8 mg/dL (1.8-2.4) Total Bilirubin 8.0 mg/dL (0.2-1.0) Aspartate Amino Transf (AST/SGOT) 304 U/L (15-37) Alanine Aminotransferase (ALT/SGPT) 109 U/L (16-63) Alkaline Phosphatase 207 U/L (46-116) Creatine Kinase 965 U/L (39-308) Creatine Kinase MB (Mass) 9.6 ng/mL (0.0-3.6) Creatine Kinase MB Relative Index 1.0 % (0-4) Troponin I Quantitative 0.036 ng/mL (0.000-0.055) RN-Dfm-R-Type Natriuretic Peptide 352 pg/mL (0-124) Total Protein 6.2 g/dL (6.4-8.2) Albumin 1.8 g/dL (3.4-5.0) Albumin/Globulin Ratio 0.4 (1.0-1.7) Lipase 627 U/L (73-393) Ethyl Alcohol Level < 10 mg/dL (0-10) Glucose (Fingerstick) 114 mg/dL (70-99) Ammonia 90 mcmol/L (11-34) O2 Saturation 96 % (92-99) Arterial Blood pH 7.43 (7.35-7.45) Arterial Blood pCO2 at Patient Temp 19 mmHg (35-46) Arterial Blood pO2 at Patient Temp 89 mmHg (85-108) Arterial Blood HCO3 13 mmol/L (21-28) Arterial Blood Base Excess -10 mmol/L (-3-3) FiO2 21 Test 01/08/19 01:20 01/08/19 04:50 01/08/19 06:00 01/08/19 06:29 White Blood Count 22.5 x10^3/uL (4.0-11.0) 22.4 x10^3/uL (4.0-11.0) Red Blood Count 2.43 x10^6/uL (4.30-5.70) 2.20 x10^6/uL (4.30-5.70) Hemoglobin 7.9 g/dL (13.0-17.5) 7.3 g/dL (13.0-17.5) Hematocrit 23.7 % (39.0-53.0) 21.1 % (39.0-53.0) Mean Corpuscular Volume 98 fL (79-100) 96 fL (79-100) Mean Corpuscular Hemoglobin 33 pg (25-35) 33 pg (25-35) Mean Corpuscular Hemoglobin Concent 34 g/dL (31-37) 35 g/dL (31-37) Red Cell Distribution Width 14.6 % (11.5-14.5) 14.2 % (11.5-14.5) Platelet Count 148 x10^3/uL (140-400) 157 x10^3/uL (140-400) Stool Occult Blood Positive (NEG) Neutrophils (%) (Auto) 81 % (31-73) Lymphocytes (%) (Auto) 11 % (24-48) Monocytes (%) (Auto) 8 % (0-9) Eosinophils (%) (Auto) 0 % (0-3) Basophils (%) (Auto) 1 % (0-3) Neutrophils # (Auto) 18.0 x10^3/uL (1.8-7.7) Lymphocytes # (Auto) 2.4 x10^3/uL (1.0-4.8) Monocytes # (Auto) 1.8 x10^3/uL (0.0-1.1) Eosinophils # (Auto) 0.0 x10^3/uL (0.0-0.7) Basophils # (Auto) 0.2 x10^3/uL (0.0-0.2) Sodium Level 129 mmol/L (136-145) Potassium Level 3.2 mmol/L (3.5-5.1) Chloride Level 92 mmol/L (98-107) Carbon Dioxide Level 19 mmol/L (21-32) Anion Gap 18 (6-14) Blood Urea Nitrogen 34 mg/dL (8-26) Creatinine 1.4 mg/dL (0.7-1.3) Estimated GFR (Cockcroft-Gault) 56.7 Glucose Level 131 mg/dL (70-99) Calcium Level 7.0 mg/dL (8.5-10.1) Total Bilirubin 9.7 mg/dL (0.2-1.0) Direct Bilirubin 8.0 mg/dL (0.0-0.2) Aspartate Amino Transf (AST/SGOT) 403 U/L (15-37) Alanine Aminotransferase (ALT/SGPT) 144 U/L (16-63) Alkaline Phosphatase 176 U/L (46-116) Total Protein 5.7 g/dL (6.4-8.2) Albumin 1.7 g/dL (3.4-5.0) Lipase 905 U/L (73-393) Procalcitonin 2.28 ng/mL (0.00-0.10) Urine Collection Type Unknown Urine Color Yellow Urine Clarity Clear Urine pH 6.0 Urine Specific [place] 1.015 Urine Protein Negative mg/dL (NEG-TRACE) Urine Glucose (UA) Negative mg/dL (NEG) Urine Ketones (Stick) Negative mg/dL (NEG) Urine Blood Moderate (NEG) Urine Nitrite Negative (NEG) Urine Bilirubin Moderate (NEG) Urine Urobilinogen Dipstick 1.0 mg/dL (0.2 mg/dL) Urine Leukocyte Esterase Moderate (NEG) Urine RBC 11-20 /HPF (0-2) Urine WBC 5-10 /HPF (0-4) Urine Bacteria Moderate /HPF (0-FEW) Urine Mucus Slight /LPF Urine Opiates Screen Neg (NEG) Urine Methadone Screen Neg (NEG) Urine Barbiturates Neg (NEG) Urine Phencyclidine Screen Neg (NEG) Urine Amphetamine/Methamphetamine Neg (NEG) Urine Benzodiazepines Screen Neg (NEG) Urine Cocaine Screen Neg (NEG) Urine Cannabinoids Screen Neg (NEG) Urine Ethyl Alcohol Neg (NEG) Test 01/08/19 07:31 01/08/19 09:40 01/08/19 09:43 01/08/19 11:30 Lactic Acid Level 10.1 mmol/L (0.4-2.0) 7.0 mmol/L (0.4-2.0) Hemoglobin 7.0 g/dL (13.0-17.5) 8.4 g/dL (13.0-17.5) Hematocrit 20.3 % (39.0-53.0) 24.3 % (39.0-53.0) Mean Corpuscular Hemoglobin Concent 35 g/dL (31-37) 35 g/dL (31-37) Hepatitis A IgM Antibody Nonreactive (Nonreactive) Hepatitis B Surface Antigen Nonreactive (Nonreactive) Hepatitis B Core IgM Antibody Nonreactive (Nonreactive) Hepatitis C IgG Antibody Reactive (Nonreactive) O2 Saturation 98 % (92-99) Arterial Blood pH 7.33 (7.35-7.45) Arterial Blood pCO2 at Patient Temp 45 mmHg (35-46) Arterial Blood pO2 at Patient Temp 134 mmHg (85-108) Arterial Blood HCO3 23 mmol/L (21-28) Arterial Blood Base Excess -3 mmol/L (-3-3) FiO2 100 White Blood Count 9.9 x10^3/uL (4.0-11.0) Red Blood Count 2.50 x10^6/uL (4.30-5.70) Mean Corpuscular Volume 97 fL (79-100) Mean Corpuscular Hemoglobin 34 pg (25-35) Red Cell Distribution Width 14.6 % (11.5-14.5) Platelet Count 157 x10^3/uL (140-400) Ammonia 68 mcmol/L (11-34) Test 01/08/19 11:42 01/08/19 16:00 01/09/19 05:10 01/09/19 08:50 O2 Saturation 96 % (92-99) Arterial Blood pH 7.36 (7.35-7.45) Arterial Blood pCO2 at Patient Temp 39 mmHg (35-46) Arterial Blood pO2 at Patient Temp 99 mmHg (85-108) Arterial Blood HCO3 22 mmol/L (21-28) Arterial Blood Base Excess -4 mmol/L (-3-3) FiO2 100 Hemoglobin 8.3 g/dL (13.0-17.5) 7.8 g/dL (13.0-17.5) Hematocrit 23.6 % (39.0-53.0) 22.7 % (39.0-53.0) Mean Corpuscular Hemoglobin Concent 35 g/dL (31-37) 35 g/dL (31-37) Prothrombin Time 18.3 SEC (11.7-14.0) 18.1 SEC (11.7-14.0) Prothromb Time International Ratio 1.6 (0.8-1.1) 1.5 (0.8-1.1) White Blood Count 22.6 x10^3/uL (4.0-11.0) Red Blood Count 2.37 x10^6/uL (4.30-5.70) Mean Corpuscular Volume 96 fL (79-100) Mean Corpuscular Hemoglobin 33 pg (25-35) Red Cell Distribution Width 15.2 % (11.5-14.5) Platelet Count 176 x10^3/uL (140-400) Neutrophils (%) (Auto) 83 % (31-73) Lymphocytes (%) (Auto) 10 % (24-48) Monocytes (%) (Auto) 7 % (0-9) Eosinophils (%) (Auto) 0 % (0-3) Basophils (%) (Auto) 1 % (0-3) Neutrophils # (Auto) 18.7 x10^3/uL (1.8-7.7) Lymphocytes # (Auto) 2.2 x10^3/uL (1.0-4.8) Monocytes # (Auto) 1.6 x10^3/uL (0.0-1.1) Eosinophils # (Auto) 0.0 x10^3/uL (0.0-0.7) Basophils # (Auto) 0.1 x10^3/uL (0.0-0.2) Sodium Level 137 mmol/L (136-145) Potassium Level 3.3 mmol/L (3.5-5.1) Chloride Level 99 mmol/L (98-107) Carbon Dioxide Level 27 mmol/L (21-32) Anion Gap 11 (6-14) Blood Urea Nitrogen 52 mg/dL (8-26) Creatinine 1.6 mg/dL (0.7-1.3) Estimated GFR (Cockcroft-Gault) 48.6 BUN/Creatinine Ratio 33 (6-20) Glucose Level 137 mg/dL (70-99) Lactic Acid Level 3.7 mmol/L (0.4-2.0) 2.8 mmol/L (0.4-2.0) Calcium Level 6.5 mg/dL (8.5-10.1) Total Bilirubin 11.3 mg/dL (0.2-1.0) Aspartate Amino Transf (AST/SGOT) 560 U/L (15-37) Alanine Aminotransferase (ALT/SGPT) 181 U/L (16-63) Alkaline Phosphatase 133 U/L (46-116) Total Protein 5.5 g/dL (6.4-8.2) Albumin 1.5 g/dL (3.4-5.0) Albumin/Globulin Ratio 0.4 (1.0-1.7) Lipase 153 U/L (73-393) Laboratory Tests Test 01/08/19 09:40 01/08/19 09:43 01/08/19 11:30 01/08/19 11:42 Hemoglobin 7.0 g/dL (13.0-17.5) 8.4 g/dL (13.0-17.5) Hematocrit 20.3 % (39.0-53.0) 24.3 % (39.0-53.0) Mean Corpuscular Hemoglobin Concent 35 g/dL (31-37) 35 g/dL (31-37) Hepatitis A IgM Antibody Nonreactive (Nonreactive) Hepatitis B Surface Antigen Nonreactive (Nonreactive) Hepatitis B Core IgM Antibody Nonreactive (Nonreactive) Hepatitis C IgG Antibody Reactive (Nonreactive) O2 Saturation 98 % (92-99) 96 % (92-99) Arterial Blood pH 7.33 (7.35-7.45) 7.36 (7.35-7.45) Arterial Blood pCO2 at Patient Temp 45 mmHg (35-46) 39 mmHg (35-46) Arterial Blood pO2 at Patient Temp 134 mmHg (85-108) 99 mmHg (85-108) Arterial Blood HCO3 23 mmol/L (21-28) 22 mmol/L (21-28) Arterial Blood Base Excess -3 mmol/L (-3-3) -4 mmol/L (-3-3) FiO2 100 100 White Blood Count 9.9 x10^3/uL (4.0-11.0) Red Blood Count 2.50 x10^6/uL (4.30-5.70) Mean Corpuscular Volume 97 fL (79-100) Mean Corpuscular Hemoglobin 34 pg (25-35) Red Cell Distribution Width 14.6 % (11.5-14.5) Platelet Count 157 x10^3/uL (140-400) Lactic Acid Level 7.0 mmol/L (0.4-2.0) Ammonia 68 mcmol/L (11-34) Test 01/08/19 16:00 01/09/19 05:10 01/09/19 08:50 Hemoglobin 8.3 g/dL (13.0-17.5) 7.8 g/dL (13.0-17.5) Hematocrit 23.6 % (39.0-53.0) 22.7 % (39.0-53.0) Mean Corpuscular Hemoglobin Concent 35 g/dL (31-37) 35 g/dL (31-37) Prothrombin Time 18.3 SEC (11.7-14.0) 18.1 SEC (11.7-14.0) Prothromb Time International Ratio 1.6 (0.8-1.1) 1.5 (0.8-1.1) White Blood Count 22.6 x10^3/uL (4.0-11.0) Red Blood Count 2.37 x10^6/uL (4.30-5.70) Mean Corpuscular Volume 96 fL (79-100) Mean Corpuscular Hemoglobin 33 pg (25-35) Red Cell Distribution Width 15.2 % (11.5-14.5) Platelet Count 176 x10^3/uL (140-400) Neutrophils (%) (Auto) 83 % (31-73) Lymphocytes (%) (Auto) 10 % (24-48) Monocytes (%) (Auto) 7 % (0-9) Eosinophils (%) (Auto) 0 % (0-3) Basophils (%) (Auto) 1 % (0-3) Neutrophils # (Auto) 18.7 x10^3/uL (1.8-7.7) Lymphocytes # (Auto) 2.2 x10^3/uL (1.0-4.8) Monocytes # (Auto) 1.6 x10^3/uL (0.0-1.1) Eosinophils # (Auto) 0.0 x10^3/uL (0.0-0.7) Basophils # (Auto) 0.1 x10^3/uL (0.0-0.2) Sodium Level 137 mmol/L (136-145) Potassium Level 3.3 mmol/L (3.5-5.1) Chloride Level 99 mmol/L (98-107) Carbon Dioxide Level 27 mmol/L (21-32) Anion Gap 11 (6-14) Blood Urea Nitrogen 52 mg/dL (8-26) Creatinine 1.6 mg/dL (0.7-1.3) Estimated GFR (Cockcroft-Gault) 48.6 BUN/Creatinine Ratio 33 (6-20) Glucose Level 137 mg/dL (70-99) Lactic Acid Level 3.7 mmol/L (0.4-2.0) 2.8 mmol/L (0.4-2.0) Calcium Level 6.5 mg/dL (8.5-10.1) Total Bilirubin 11.3 mg/dL (0.2-1.0) Aspartate Amino Transf (AST/SGOT) 560 U/L (15-37) Alanine Aminotransferase (ALT/SGPT) 181 U/L (16-63) Alkaline Phosphatase 133 U/L (46-116) Total Protein 5.5 g/dL (6.4-8.2) Albumin 1.5 g/dL (3.4-5.0) Albumin/Globulin Ratio 0.4 (1.0-1.7) Lipase 153 U/L (73-393) Impression . IMPRESSION: 1. Acute respiratory failure, multifactorial, secondary to multiorgan failure. 2. End-stage liver disease. 3. Multiorgan failure. 4. Renal failure. 5. Acute gastrointestinal bleed. 6. Possible sepsis. 7. Leukocytosis. 8. Hematemesis. 9. Rhabdomyolysis. 10. Alcohol abuse. 11. Ascites. 12. Electrolyte abnormalities. Imaging: EGD 01/08 E--NO VARICES. Erosions distally c/w reflux/repeated emesis. One quite long narrow erosion which could have been a M-W. No active bleeding or clot. G--Not much retained blood after OG suction and Reglan. NO gastric varices. Linear erosions along the rugae in fundus and body c/w alcoholic or stress gastritis. Scattered "bruises" from OG tube. No ulcer, etc. D--Normal to second portion. IMP: Reflux esophagitis. ? recent M-W tear. Alcoholic gastritis. No active bleeding or clot seen. Plan . WILL CONTINUE THE SAME [employer]ER PROGNOSIS IS POOR ANTIBX 1. Continue current AC mode. D/W RN AND RT 2. Continue antibiotics per Infectious Disease service. 3. IV fluids. 4. Transfuse. 5. Monitor hemoglobin and hematocrit. 6. Follow GI recommendation. 7. Alcohol withdrawal protocol. CCT 35 MIN FORMULATING A PLAN, REVIEWING DATA/XRY/LABS CARROLL BARRETT MD Jan 09, 2019 09:29
[2019-01-09 09:32] LABS: FIO2 ABG 70
[2019-01-09] MEDS ORDERED: POTASSIUM CHLORIDE 20 MEQ TABLET.ER. PO ONE (09:45)
--- NOTE | 2019-01-09 10:10 | PDOC ---
PROGRESS NOTES Chief Complaint Chief Complaint Acute respi falure, IPPV - 01.08, fluid overload? - check echo, vent bundle, CXR shows "Atypical infection" HEMATEMESIS in A HEAVY DRINKER -Atrophic gastritis ? MW BUT NO ACTIVE GIB - s.po STAT EGD 01/08 SEVERE PCM - albumin 1,7 - ALBUMIN CAN HELP plus PRESSORS Possible ascites? - check US abd bedside for tapable fluid if any HYPOTENSION, relative, pressors standby, albumin, blood products if needed Coagulopathy -s .p vit K, recheck INR, FFPS if HIgh INR or massive activly bleeding but have seems to have quieted down now HEPATIC enceph - ammonia midly high 60-90s - lactulose, small dose? TRAMSAMINITIS with ELEVATED TB- per GI HEp C antibody positive LEft leg bruise, in this coagulopathic anemic pt sec to fall 2 weeks ago - monitor ELEAVTED AGAP acidosis, renal consulted, can check PH in ABG History of Present Illness History of Present Illness INtubated, sedated On LOW dose levophed UO ok EGD results noted, no active GIB, ? MW, atrophic gastritis STOP SANDOSTATIN, CONT PPI gtt, SCDS INtuabted,vent bundle per pulmo CXR, similar to yesterdays, no gross fluid overload, maybe some infiltrative process? on empiric abx anyways AMMONIA 60-90s HEp c positive IgG PLAN SMall dose lactulose, recheck ammonia tmr US abdomen, check for fluid and hepatic texture LFTS higher today 500s from 300s SOme dark maybe heme occult positive or boilous nGT draiange - okay by GI for TF - will seema ramos on standby Dw [employer]ETING [employer]ATE[employer] dw the update ALBUMIN 50 gms x 1 now to help presssures, ALBUMIN iS ONLY 1.7 maintain esteves Critically ill, not ready for extubation CC 35 Vitals Vitals Vital Signs Date Time Temp Pulse Resp B/P (MAP) Pulse Ox O2 Delivery O2 Flow Rate FiO2 01/09/19 09:15 97 Ventilator 01/09/19 09:00 102 24 100/46 (64) 01/09/19 08:00 99.2 99.2 01/09/19 07:00 2.0 Physical Exam Physical Exam CONSTITUTIONAL: Intubated/ssedted HEENT: Pupils equal and reactive. He has icteric sclerae. ETT NECK: Supple, no JVD. LUNGS: Without wheeze, no rhonchi. HEART: S1/S2. ABDOMEN: Obese, soft, no guarding, no rebound. : - esteves EXTREMITIES: Without clubbing, cyanosis. His left lower extremity has a large ecchymosis from his thigh down to his lower third of the tibial area. There is no gross erythema. No knee effusion. There is no warmth. It is nontender. His right great toenail has a small trunk that is missing out of it, but there is no surrounding erythema. It is nontender. There is no swelling. SKIN: Otherwise without signs of rash. NEUROLOGIC: Sedated PSYCHIATRIC: Unable to assess IVs: - PIV s clean General: Other (tachypneic 30s) Heart: Regular rate, Normal S1, Normal S2 Lungs: Crackles Abdomen: Soft, No tenderness, Other (pot belly possible fluid wave) Extremities: No clubbing, No cyanosis, Normal pulses, Other (left leg is bruised from a fall 2-3 weeks ago) Labs LABS Laboratory Tests Test 01/08/19 11:30 01/08/19 11:42 01/08/19 16:00 01/09/19 05:10 White Blood Count 9.9 x10^3/uL (4.0-11.0) 22.6 x10^3/uL (4.0-11.0) Red Blood Count 2.50 x10^6/uL (4.30-5.70) 2.37 x10^6/uL (4.30-5.70) Hemoglobin 8.4 g/dL (13.0-17.5) 8.3 g/dL (13.0-17.5) 7.8 g/dL (13.0-17.5) Hematocrit 24.3 % (39.0-53.0) 23.6 % (39.0-53.0) 22.7 % (39.0-53.0) Mean Corpuscular Volume 97 fL (79-100) 96 fL (79-100) Mean Corpuscular Hemoglobin 34 pg (25-35) 33 pg (25-35) Mean Corpuscular Hemoglobin Concent 35 g/dL (31-37) 35 g/dL (31-37) 35 g/dL (31-37) Red Cell Distribution Width 14.6 % (11.5-14.5) 15.2 % (11.5-14.5) Platelet Count 157 x10^3/uL (140-400) 176 x10^3/uL (140-400) Lactic Acid Level 7.0 mmol/L (0.4-2.0) 3.7 mmol/L (0.4-2.0) Ammonia 68 mcmol/L (11-34) O2 Saturation 96 % (92-99) Arterial Blood pH 7.36 (7.35-7.45) Arterial Blood pCO2 at Patient Temp 39 mmHg (35-46) Arterial Blood pO2 at Patient Temp 99 mmHg (85-108) Arterial Blood HCO3 22 mmol/L (21-28) Arterial Blood Base Excess -4 mmol/L (-3-3) FiO2 100 Prothrombin Time 18.3 SEC (11.7-14.0) 18.1 SEC (11.7-14.0) Prothromb Time International Ratio 1.6 (0.8-1.1) 1.5 (0.8-1.1) Neutrophils (%) (Auto) 83 % (31-73) Lymphocytes (%) (Auto) 10 % (24-48) Monocytes (%) (Auto) 7 % (0-9) Eosinophils (%) (Auto) 0 % (0-3) Basophils (%) (Auto) 1 % (0-3) Neutrophils # (Auto) 18.7 x10^3/uL (1.8-7.7) Lymphocytes # (Auto) 2.2 x10^3/uL (1.0-4.8) Monocytes # (Auto) 1.6 x10^3/uL (0.0-1.1) Eosinophils # (Auto) 0.0 x10^3/uL (0.0-0.7) Basophils # (Auto) 0.1 x10^3/uL (0.0-0.2) Sodium Level 137 mmol/L (136-145) Potassium Level 3.3 mmol/L (3.5-5.1) Chloride Level 99 mmol/L (98-107) Carbon Dioxide Level 27 mmol/L (21-32) Anion Gap 11 (6-14) Blood Urea Nitrogen 52 mg/dL (8-26) Creatinine 1.6 mg/dL (0.7-1.3) Estimated GFR (Cockcroft-Gault) 48.6 BUN/Creatinine Ratio 33 (6-20) Glucose Level 137 mg/dL (70-99) Calcium Level 6.5 mg/dL (8.5-10.1) Total Bilirubin 11.3 mg/dL (0.2-1.0) Aspartate Amino Transf (AST/SGOT) 560 U/L (15-37) Alanine Aminotransferase (ALT/SGPT) 181 U/L (16-63) Alkaline Phosphatase 133 U/L (46-116) Total Protein 5.5 g/dL (6.4-8.2) Albumin 1.5 g/dL (3.4-5.0) Albumin/Globulin Ratio 0.4 (1.0-1.7) Lipase 153 U/L (73-393) Test 01/09/19 08:00 01/09/19 08:50 O2 Saturation 92 % (92-99) Arterial Blood pH 7.46 (7.35-7.45) Arterial Blood pCO2 at Patient Temp 38 mmHg (35-46) Arterial Blood pO2 at Patient Temp 65 mmHg (85-108) Arterial Blood HCO3 26 mmol/L (21-28) Arterial Blood Base Excess 2 mmol/L (-3-3) FiO2 70 Lactic Acid Level 2.8 mmol/L (0.4-2.0) Review of Systems Review of Systems intubated,s edated Assessment and Plan Assessmemt and Plan Problems Medical Problems: (1) Acute hepatic encephalopathy Status: Acute (2) Acute upper GI bleed Status: Acute (3) Ascites Status: Acute (4) Hypokalemia Status: Acute (5) Multiple organ system failure Status: Acute (6) Severe sepsis with acute organ dysfunction Status: Acute Comment Review of Relevant I have reviewed the following items karen (where applicable) has been applied. Labs Laboratory Tests Test 01/07/19 19:00 01/07/19 19:13 01/07/19 22:35 01/08/19 00:20 White Blood Count 24.7 x10^3/uL (4.0-11.0) Red Blood Count 2.30 x10^6/uL (4.30-5.70) Hemoglobin 7.6 g/dL (13.0-17.5) 6.3 g/dL (13.0-17.5) Hematocrit 22.4 % (39.0-53.0) 18.4 % (39.0-53.0) Mean Corpuscular Volume 97 fL (79-100) Mean Corpuscular Hemoglobin 33 pg (25-35) Mean Corpuscular Hemoglobin Concent 34 g/dL (31-37) 34 g/dL (31-37) Red Cell Distribution Width 14.6 % (11.5-14.5) Platelet Count 168 x10^3/uL (140-400) Neutrophils (%) (Auto) 81 % (31-73) Lymphocytes (%) (Auto) 8 % (24-48) Monocytes (%) (Auto) 11 % (0-9) Eosinophils (%) (Auto) 0 % (0-3) Basophils (%) (Auto) 1 % (0-3) Neutrophils # (Auto) 20.0 x10^3/uL (1.8-7.7) Lymphocytes # (Auto) 1.9 x10^3/uL (1.0-4.8) Monocytes # (Auto) 2.6 x10^3/uL (0.0-1.1) Eosinophils # (Auto) 0.0 x10^3/uL (0.0-0.7) Basophils # (Auto) 0.2 x10^3/uL (0.0-0.2) Segmented Neutrophils % 82 % (35-66) Band Neutrophils % 2 % (0-9) Lymphocytes % 6 % (24-48) Monocytes % 10 % (0-10) Toxic Granulation Slight Platelet Estimate Adequate (ADEQUATE) Polychromasia Slight Anisocytosis Slight Prothrombin Time 21.7 SEC (11.7-14.0) Prothromb Time International Ratio 1.9 (0.8-1.1) Activated Partial Thromboplast Time 43 SEC (24-38) Sodium Level 124 mmol/L (136-145) Potassium Level 2.9 mmol/L (3.5-5.1) Chloride Level 81 mmol/L (98-107) Carbon Dioxide Level 13 mmol/L (21-32) Anion Gap 30 (6-14) Blood Urea Nitrogen 35 mg/dL (8-26) Creatinine 1.7 mg/dL (0.7-1.3) Estimated GFR (Cockcroft-Gault) 45.3 BUN/Creatinine Ratio 21 (6-20) Glucose Level 125 mg/dL (70-99) Lactic Acid Level 21.1 mmol/L (0.4-2.0) 17.3 mmol/L (0.4-2.0) Calcium Level 7.6 mg/dL (8.5-10.1) Magnesium Level 1.8 mg/dL (1.8-2.4) Total Bilirubin 8.0 mg/dL (0.2-1.0) Aspartate Amino Transf (AST/SGOT) 304 U/L (15-37) Alanine Aminotransferase (ALT/SGPT) 109 U/L (16-63) Alkaline Phosphatase 207 U/L (46-116) Creatine Kinase 965 U/L (39-308) Creatine Kinase MB (Mass) 9.6 ng/mL (0.0-3.6) Creatine Kinase MB Relative Index 1.0 % (0-4) Troponin I Quantitative 0.036 ng/mL (0.000-0.055) EN-Mfw-V-Type Natriuretic Peptide 352 pg/mL (0-124) Total Protein 6.2 g/dL (6.4-8.2) Albumin 1.8 g/dL (3.4-5.0) Albumin/Globulin Ratio 0.4 (1.0-1.7) Lipase 627 U/L (73-393) Ethyl Alcohol Level < 10 mg/dL (0-10) Glucose (Fingerstick) 114 mg/dL (70-99) Ammonia 90 mcmol/L (11-34) O2 Saturation 96 % (92-99) Arterial Blood pH 7.43 (7.35-7.45) Arterial Blood pCO2 at Patient Temp 19 mmHg (35-46) Arterial Blood pO2 at Patient Temp 89 mmHg (85-108) Arterial Blood HCO3 13 mmol/L (21-28) Arterial Blood Base Excess -10 mmol/L (-3-3) FiO2 21 Test 01/08/19 01:20 01/08/19 04:50 01/08/19 06:00 01/08/19 06:29 White Blood Count 22.5 x10^3/uL (4.0-11.0) 22.4 x10^3/uL (4.0-11.0) Red Blood Count 2.43 x10^6/uL (4.30-5.70) 2.20 x10^6/uL (4.30-5.70) Hemoglobin 7.9 g/dL (13.0-17.5) 7.3 g/dL (13.0-17.5) Hematocrit 23.7 % (39.0-53.0) 21.1 % (39.0-53.0) Mean Corpuscular Volume 98 fL (79-100) 96 fL (79-100) Mean Corpuscular Hemoglobin 33 pg (25-35) 33 pg (25-35) Mean Corpuscular Hemoglobin Concent 34 g/dL (31-37) 35 g/dL (31-37) Red Cell Distribution Width 14.6 % (11.5-14.5) 14.2 % (11.5-14.5) Platelet Count 148 x10^3/uL (140-400) 157 x10^3/uL (140-400) Stool Occult Blood Positive (NEG) Neutrophils (%) (Auto) 81 % (31-73) Lymphocytes (%) (Auto) 11 % (24-48) Monocytes (%) (Auto) 8 % (0-9) Eosinophils (%) (Auto) 0 % (0-3) Basophils (%) (Auto) 1 % (0-3) Neutrophils # (Auto) 18.0 x10^3/uL (1.8-7.7) Lymphocytes # (Auto) 2.4 x10^3/uL (1.0-4.8) Monocytes # (Auto) 1.8 x10^3/uL (0.0-1.1) Eosinophils # (Auto) 0.0 x10^3/uL (0.0-0.7) Basophils # (Auto) 0.2 x10^3/uL (0.0-0.2) Sodium Level 129 mmol/L (136-145) Potassium Level 3.2 mmol/L (3.5-5.1) Chloride Level 92 mmol/L (98-107) Carbon Dioxide Level 19 mmol/L (21-32) Anion Gap 18 (6-14) Blood Urea Nitrogen 34 mg/dL (8-26) Creatinine 1.4 mg/dL (0.7-1.3) Estimated GFR (Cockcroft-Gault) 56.7 Glucose Level 131 mg/dL (70-99) Calcium Level 7.0 mg/dL (8.5-10.1) Total Bilirubin 9.7 mg/dL (0.2-1.0) Direct Bilirubin 8.0 mg/dL (0.0-0.2) Aspartate Amino Transf (AST/SGOT) 403 U/L (15-37) Alanine Aminotransferase (ALT/SGPT) 144 U/L (16-63) Alkaline Phosphatase 176 U/L (46-116) Total Protein 5.7 g/dL (6.4-8.2) Albumin 1.7 g/dL (3.4-5.0) Lipase 905 U/L (73-393) Procalcitonin 2.28 ng/mL (0.00-0.10) Urine Collection Type Unknown Urine Color Yellow Urine Clarity Clear Urine pH 6.0 Urine Specific [place] 1.015 Urine Protein Negative mg/dL (NEG-TRACE) Urine Glucose (UA) Negative mg/dL (NEG) Urine Ketones (Stick) Negative mg/dL (NEG) Urine Blood Moderate (NEG) Urine Nitrite Negative (NEG) Urine Bilirubin Moderate (NEG) Urine Urobilinogen Dipstick 1.0 mg/dL (0.2 mg/dL) Urine Leukocyte Esterase Moderate (NEG) Urine RBC 11-20 /HPF (0-2) Urine WBC 5-10 /HPF (0-4) Urine Bacteria Moderate /HPF (0-FEW) Urine Mucus Slight /LPF Urine Opiates Screen Neg (NEG) Urine Methadone Screen Neg (NEG) Urine Barbiturates Neg (NEG) Urine Phencyclidine Screen Neg (NEG) Urine Amphetamine/Methamphetamine Neg (NEG) Urine Benzodiazepines Screen Neg (NEG) Urine Cocaine Screen Neg (NEG) Urine Cannabinoids Screen Neg (NEG) Urine Ethyl Alcohol Neg (NEG) Test 01/08/19 07:31 01/08/19 09:40 01/08/19 09:43 01/08/19 11:30 Lactic Acid Level 10.1 mmol/L (0.4-2.0) 7.0 mmol/L (0.4-2.0) Hemoglobin 7.0 g/dL (13.0-17.5) 8.4 g/dL (13.0-17.5) Hematocrit 20.3 % (39.0-53.0) 24.3 % (39.0-53.0) Mean Corpuscular Hemoglobin Concent 35 g/dL (31-37) 35 g/dL (31-37) Hepatitis A IgM Antibody Nonreactive (Nonreactive) Hepatitis B Surface Antigen Nonreactive (Nonreactive) Hepatitis B Core IgM Antibody Nonreactive (Nonreactive) Hepatitis C IgG Antibody Reactive (Nonreactive) O2 Saturation 98 % (92-99) Arterial Blood pH 7.33 (7.35-7.45) Arterial Blood pCO2 at Patient Temp 45 mmHg (35-46) Arterial Blood pO2 at Patient Temp 134 mmHg (85-108) Arterial Blood HCO3 23 mmol/L (21-28) Arterial Blood Base Excess -3 mmol/L (-3-3) FiO2 100 White Blood Count 9.9 x10^3/uL (4.0-11.0) Red Blood Count 2.50 x10^6/uL (4.30-5.70) Mean Corpuscular Volume 97 fL (79-100) Mean Corpuscular Hemoglobin 34 pg (25-35) Red Cell Distribution Width 14.6 % (11.5-14.5) Platelet Count 157 x10^3/uL (140-400) Ammonia 68 mcmol/L (11-34) Test 01/08/19 11:42 01/08/19 16:00 01/09/19 05:10 01/09/19 08:00 O2 Saturation 96 % (92-99) 92 % (92-99) Arterial Blood pH 7.36 (7.35-7.45) 7.46 (7.35-7.45) Arterial Blood pCO2 at Patient Temp 39 mmHg (35-46) 38 mmHg (35-46) Arterial Blood pO2 at Patient Temp 99 mmHg (85-108) 65 mmHg (85-108) Arterial Blood HCO3 22 mmol/L (21-28) 26 mmol/L (21-28) Arterial Blood Base Excess -4 mmol/L (-3-3) 2 mmol/L (-3-3) FiO2 100 70 Hemoglobin 8.3 g/dL (13.0-17.5) 7.8 g/dL (13.0-17.5) Hematocrit 23.6 % (39.0-53.0) 22.7 % (39.0-53.0) Mean Corpuscular Hemoglobin Concent 35 g/dL (31-37) 35 g/dL (31-37) Prothrombin Time 18.3 SEC (11.7-14.0) 18.1 SEC (11.7-14.0) Prothromb Time International Ratio 1.6 (0.8-1.1) 1.5 (0.8-1.1) White Blood Count 22.6 x10^3/uL (4.0-11.0) Red Blood Count 2.37 x10^6/uL (4.30-5.70) Mean Corpuscular Volume 96 fL (79-100) Mean Corpuscular Hemoglobin 33 pg (25-35) Red Cell Distribution Width 15.2 % (11.5-14.5) Platelet Count 176 x10^3/uL (140-400) Neutrophils (%) (Auto) 83 % (31-73) Lymphocytes (%) (Auto) 10 % (24-48) Monocytes (%) (Auto) 7 % (0-9) Eosinophils (%) (Auto) 0 % (0-3) Basophils (%) (Auto) 1 % (0-3) Neutrophils # (Auto) 18.7 x10^3/uL (1.8-7.7) Lymphocytes # (Auto) 2.2 x10^3/uL (1.0-4.8) Monocytes # (Auto) 1.6 x10^3/uL (0.0-1.1) Eosinophils # (Auto) 0.0 x10^3/uL (0.0-0.7) Basophils # (Auto) 0.1 x10^3/uL (0.0-0.2) Sodium Level 137 mmol/L (136-145) Potassium Level 3.3 mmol/L (3.5-5.1) Chloride Level 99 mmol/L (98-107) Carbon Dioxide Level 27 mmol/L (21-32) Anion Gap 11 (6-14) Blood Urea Nitrogen 52 mg/dL (8-26) Creatinine 1.6 mg/dL (0.7-1.3) Estimated GFR (Cockcroft-Gault) 48.6 BUN/Creatinine Ratio 33 (6-20) Glucose Level 137 mg/dL (70-99) Lactic Acid Level 3.7 mmol/L (0.4-2.0) Calcium Level 6.5 mg/dL (8.5-10.1) Total Bilirubin 11.3 mg/dL (0.2-1.0) Aspartate Amino Transf (AST/SGOT) 560 U/L (15-37) Alanine Aminotransferase (ALT/SGPT) 181 U/L (16-63) Alkaline Phosphatase 133 U/L (46-116) Total Protein 5.5 g/dL (6.4-8.2) Albumin 1.5 g/dL (3.4-5.0) Albumin/Globulin Ratio 0.4 (1.0-1.7) Lipase 153 U/L (73-393) Test 01/09/19 08:50 Lactic Acid Level 2.8 mmol/L (0.4-2.0) Laboratory Tests Test 01/08/19 11:30 01/08/19 11:42 01/08/19 16:00 01/09/19 05:10 White Blood Count 9.9 x10^3/uL (4.0-11.0) 22.6 x10^3/uL (4.0-11.0) Red Blood Count 2.50 x10^6/uL (4.30-5.70) 2.37 x10^6/uL (4.30-5.70) Hemoglobin 8.4 g/dL (13.0-17.5) 8.3 g/dL (13.0-17.5) 7.8 g/dL (13.0-17.5) Hematocrit 24.3 % (39.0-53.0) 23.6 % (39.0-53.0) 22.7 % (39.0-53.0) Mean Corpuscular Volume 97 fL (79-100) 96 fL (79-100) Mean Corpuscular Hemoglobin 34 pg (25-35) 33 pg (25-35) Mean Corpuscular Hemoglobin Concent 35 g/dL (31-37) 35 g/dL (31-37) 35 g/dL (31-37) Red Cell Distribution Width 14.6 % (11.5-14.5) 15.2 % (11.5-14.5) Platelet Count 157 x10^3/uL (140-400) 176 x10^3/uL (140-400) Lactic Acid Level 7.0 mmol/L (0.4-2.0) 3.7 mmol/L (0.4-2.0) Ammonia 68 mcmol/L (11-34) O2 Saturation 96 % (92-99) Arterial Blood pH 7.36 (7.35-7.45) Arterial Blood pCO2 at Patient Temp 39 mmHg (35-46) Arterial Blood pO2 at Patient Temp 99 mmHg (85-108) Arterial Blood HCO3 22 mmol/L (21-28) Arterial Blood Base Excess -4 mmol/L (-3-3) FiO2 100 Prothrombin Time 18.3 SEC (11.7-14.0) 18.1 SEC (11.7-14.0) Prothromb Time International Ratio 1.6 (0.8-1.1) 1.5 (0.8-1.1) Neutrophils (%) (Auto) 83 % (31-73) Lymphocytes (%) (Auto) 10 % (24-48) Monocytes (%) (Auto) 7 % (0-9) Eosinophils (%) (Auto) 0 % (0-3) Basophils (%) (Auto) 1 % (0-3) Neutrophils # (Auto) 18.7 x10^3/uL (1.8-7.7) Lymphocytes # (Auto) 2.2 x10^3/uL (1.0-4.8) Monocytes # (Auto) 1.6 x10^3/uL (0.0-1.1) Eosinophils # (Auto) 0.0 x10^3/uL (0.0-0.7) Basophils # (Auto) 0.1 x10^3/uL (0.0-0.2) Sodium Level 137 mmol/L (136-145) Potassium Level 3.3 mmol/L (3.5-5.1) Chloride Level 99 mmol/L (98-107) Carbon Dioxide Level 27 mmol/L (21-32) Anion Gap 11 (6-14) Blood Urea Nitrogen 52 mg/dL (8-26) Creatinine 1.6 mg/dL (0.7-1.3) Estimated GFR (Cockcroft-Gault) 48.6 BUN/Creatinine Ratio 33 (6-20) Glucose Level 137 mg/dL (70-99) Calcium Level 6.5 mg/dL (8.5-10.1) Total Bilirubin 11.3 mg/dL (0.2-1.0) Aspartate Amino Transf (AST/SGOT) 560 U/L (15-37) Alanine Aminotransferase (ALT/SGPT) 181 U/L (16-63) Alkaline Phosphatase 133 U/L (46-116) Total Protein 5.5 g/dL (6.4-8.2) Albumin 1.5 g/dL (3.4-5.0) Albumin/Globulin Ratio 0.4 (1.0-1.7) Lipase 153 U/L (73-393) Test 01/09/19 08:00 01/09/19 08:50 O2 Saturation 92 % (92-99) Arterial Blood pH 7.46 (7.35-7.45) Arterial Blood pCO2 at Patient Temp 38 mmHg (35-46) Arterial Blood pO2 at Patient Temp 65 mmHg (85-108) Arterial Blood HCO3 26 mmol/L (21-28) Arterial Blood Base Excess 2 mmol/L (-3-3) FiO2 70 Lactic Acid Level 2.8 mmol/L (0.4-2.0) Microbiology 01/08/19 Blood Culture - Preliminary, Resulted NO GROWTH AFTER 1 DAY Medications Current Medications Sodium Chloride 1,000 ml @ 1,000 mls/hr 1X ONCE IV Last administered on 01/07/19at 19:27; Start 01/07/19 at 19:30; Stop 01/07/19 at 20:29; Status DC Ondansetron HCl (Zofran) 4 mg 1X ONCE IV Last administered on 01/07/19at 19:28; Start 01/07/19 at 19:30; Stop 01/07/19 at 19:31; Status DC Pantoprazole Sodium (PROTONIX VIAL for IV PUSH) 80 mg 1X ONCE IVP Last administered on 01/07/19at 19:50; Start 01/07/19 at 20:00; Stop 01/07/19 at 20:01; Status DC Pantoprazole Sodium 80 mg/ Sodium Chloride 100 ml @ 10 mls/hr 1X ONCE IV Last administered on 01/07/19at 20:00; Start 01/07/19 at 20:00; Stop 01/08/19 at 05:59; Status DC Sodium Chloride 1,000 ml @ 1,000 mls/hr 1X ONCE IV Last administered on 01/07/19at 22:12; Start 01/07/19 at 21:00; Stop 01/07/19 at 21:59; Status DC Sodium Chloride 1,000 ml @ 1,000 mls/hr 1X ONCE IV Last administered on 01/07/19at 20:40; Start 01/07/19 at 20:45; Stop 01/07/19 at 21:44; Status DC Potassium Chloride/Sodium Chloride 1,000 ml @ 75 mls/hr 1X ONCE IV Last administered on 01/07/19at 21:16; Start 01/07/19 at 21:30; Stop 01/08/19 at 10:49; Status DC Vancomycin HCl (Vanco Per Pharmacy) 1 each PRN DAILY PRN MC SEE COMMENTS Last administered on 01/08/19at 00:43; Start 01/07/19 at 21:00; Stop 01/08/19 at 06:39; Status DC Piperacillin Sod/ Tazobactam Sod (Zosyn Per Pharmacy) 1 each PRN DAILY PRN MC SEE COMMENTS; Start 01/07/19 at 21:00 Piperacillin Sod/ Tazobactam Sod 3.375 gm/Sodium Chloride 50 ml @ 100 mls/hr Q6HRS IV Last administered on 01/09/19at 05:59; Start 01/07/19 at 22:00 Vancomycin HCl 2 gm/Sodium Chloride 500 ml @ 250 mls/hr 1X ONCE IV Last administered on 01/07/19at 22:11; Start 01/07/19 at 22:00; Stop 01/07/19 at 23:59; Status DC Lorazepam (Ativan Inj) 1 mg 1X ONCE IV Last administered on 01/07/19at 23:22; Start 01/07/19 at 23:30; Stop 01/07/19 at 23:31; Status DC Lorazepam (Ativan Inj) 2 mg STK-MED ONCE .ROUTE ; Start 01/07/19 at 23:20; Stop 01/07/19 at 23:21; Status DC Vancomycin HCl 1.5 gm/Sodium Chloride 500 ml @ 250 mls/hr Q12H IV ; Start 01/08/19 at 10:00; Stop 01/08/19 at 06:39; Status DC Vancomycin HCl (Vancomycin Trough Level) 1 each 1X ONCE MC ; Start 01/09/19 at 09:30; Stop 01/09/19 at 09:31; Status Cancel Ondansetron HCl (Zofran) 4 mg PRN Q6HRS PRN IVP NAUSEA/VOMITING; Start 01/08/19 at 04:00; Status Cancel Pantoprazole Sodium 80 mg/ Sodium Chloride 100 ml @ 10 mls/hr Q10H IV Last administered on 01/09/19at 02:00; Start 01/08/19 at 06:00 Multivitamins 10 ml/Thiamine HCl 100 mg/Folic Acid 1 mg/Sodium Chloride 1,011.2 ml @ 100 mls/ hr DAILY IV Last administered on 01/09/19at 08:12; Start 01/08/19 at 09:00; Stop 01/12/19 at 19:07 Lorazepam (Ativan Inj) 2 mg PRN Q1HR PRN IV For CIWA 8-14 Last administered on 01/08/19at 08:24; Start 01/08/19 at 07:15 Lorazepam (Ativan Inj) 4 mg PRN Q1HR PRN IV For CIWA 15 or greater; Start 01/08/19 at 07:15 Haloperidol Lactate (Haldol Inj) 5 mg PRN Q4HRS PRN IVP Hallucinatns,Confusn,Delirium; Start 01/08/19 at 07:15 Diphenhydramine HCl (Benadryl) 25 mg PRN Q15MIN PRN IVP EPS symptoms 2'Haldol admin; Start 01/08/19 at 07:15 Clonidine HCl (Catapres) 0.1 mg PRN Q1HR PRN PO SBP > 180 or DBP > 100, MRX3; Start 01/08/19 at 07:15 Sodium Bicarbonate (Sodium Bicarb Adult 8.4% Syr) 50 meq 1X ONCE IV Last administered on 01/08/19at 08:04; Start 01/08/19 at 08:00; Stop 01/08/19 at 08:01; Status DC Propofol 100 ml @ As Directed STK-MED ONCE IV ; Start 01/08/19 at 08:19; Stop 01/08/19 at 08:19; Status DC Succinylcholine Chloride (Anectine) 200 mg STK-MED ONCE .ROUTE ; Start 01/08/19 at 08:19; Stop 01/08/19 at 08:19; Status DC Propofol 100 ml @ As Directed STK-MED ONCE IV ; Start 01/08/19 at 08:29; Stop 01/08/19 at 08:30; Status DC Fentanyl Citrate 30 ml @ 0 mls/hr CONT PRN PRN IV PER PROTOCOL Last administered on 01/09/19at 07:00; Start 01/08/19 at 09:00 Naloxone HCl (Narcan) 0.4 mg PRN Q2MIN PRN IV SEE INSTRUCTIONS; Start 01/08/19 at 09:00 Sodium Chloride 1,000 ml @ 25 mls/hr Q24H IV Last administered on 01/08/19at 18:17; Start 01/08/19 at 08:54 Fentanyl Citrate (Fentanyl 2ml Vial) 100 mcg STK-MED ONCE .ROUTE ; Start 01/08/19 at 08:55; Stop 01/08/19 at 08:55; Status DC Octreotide Acetate 500 mcg/ Sodium Chloride 101 ml @ 0 mls/hr CONT PRN IV SEE I/O RECORD Last administered on 01/08/19at 13:56; Start 01/08/19 at 09:00; Stop 01/08/19 at 16:55; Status DC Phytonadione (Vitamin K Ampule) 10 mg 1X ONCE SQ Last administered on 01/08at 09:56; Start 01/08/19 at 09:15; Stop 01/08/19 at 09:16; Status DC Metoclopramide HCl (Reglan Vial) 10 mg 1X ONCE IVP Last administered on 01/08/19at 14:36; Start 01/08/19 at 11:00; Stop 01/08/19 at 11:01; Status DC Midazolam HCl (Versed) 5 mg STK-MED ONCE .ROUTE ; Start 01/08/19 at 09:00; Stop 01/08/19 at 09:01; Status DC Acetaminophen (Tylenol) 500 mg PRN Q6HRS PRN PO MILD PAIN / TEMP; Start 01/08/19 at 09:15 Tramadol HCl (Ultram) 50 mg PRN Q6HRS PRN PO PAIN MODERATE; Start 01/08/19 at 09:15 Morphine Sulfate (Morphine Sulfate) 2 mg PRN Q2HR PRN IV PAIN; Start 01/08/19 at 09:15 Ondansetron HCl (Zofran) 4 mg PRN Q6HRS PRN IVP NAUSEA/VOMITING; Start 01/08/19 at 09:15 Fentanyl Citrate (Fentanyl 2ml Vial) 100 mcg 1X ONCE IVP Last administered on 01/08/19 09:42; Start 01/08/19 at 09:45; Stop 01/08/19 at 09:46; Status DC Midazolam HCl (Versed) 5 mg 1X ONCE IV Last administered on 01/08/19 09:41; Start 01/08/19 at 09:45; Stop 01/08/19 at 09:46; Status DC Succinylcholine Chloride (Anectine) 200 mg 1X ONCE IV Last administered on 01/08/19 09:41; Start 01/08/19 at 09:45; Stop 01/08/19 at 09:46; Status DC Propofol 100 ml @ 1.524 mls/ hr CONT PRN IV SEE I/O RECORD Last administered on 01/08/19at 09:46; Start 01/08/19 at 09:45 Midazolam HCl 100 ml @ 5 mls/hr CONT PRN IV SEE I/O RECORD Last administered on 01/08/19at 23:59; Start 01/08/19 at 11:15 Vecuronium [place] (Norcuron Bolus) 6 mg PRN Q4HRS PRN IV VENT ASYNCHRONY Last administered on 01/08/19at 16:24; Start 01/08/19 at 12:00 Benzocaine (Hurricaine One) 2 spray STK-MED ONCE .ROUTE ; Start 01/07/19 at 12:00; Stop 01/08/19 at 14:20; Status DC Lidocaine HCl (Xylocaine 2% Topical 5gm Tube) 5 amanda STK-MED ONCE TP ; Start 01/07/19 at 12:00; Stop 01/08/19 at 14:20; Status DC Lactobacillus Rhamnosus (Culturelle) 1 cap BID PO ; Start 01/08/19 at 21:00; Stop 01/09/19 at 09:29; Status DC Acetaminophen (Tylenol Supp) 650 mg PRN Q6HRS PRN GA MILD PAIN / TEMP Last administered on 01/08/19at 18:38; Start 01/08/19 at 18:15 Norepinephrine Bitartrate 250 ml @ 18.938 mls/ hr CONT PRN IV SEE I/O RECORD; Start 01/09/19 at 01:45 Potassium Chloride (Klor-Con) 40 meq 1X ONCE PO ; Start 01/09/19 at 09:45; Stop 01/09/19 at 09:46; Status DC Vitals/I & O Vital Sign - Last 24 Hours 01/08/19 01/08/19 01/08/19 01/08/19 10:24 10:45 11:00 11:14 Temp 98.5 98.5 98.5 98.5 98.5 98.5 Pulse 116 112 118 Resp 32 32 32 B/P (MAP) 100/56 100/43 96/47 Pulse Ox 93 O2 Delivery Ventilator 01/08/19 01/08/19 01/08/19 01/08/19 11:15 11:15 11:37 11:41 Temp 98.2 98.2 Pulse 128 129 129 Resp 32 35 42 34 B/P (MAP) 108/60 117/63 123/40 O2 Delivery Ventilator 01/08/19 01/08/19 01/08/19 01/08/19 11:50 12:00 12:18 12:46 Temp 100.4 100.5 100.5 100.4 100.5 100.5 Pulse 131 136 139 Resp 34 26 24 B/P (MAP) 123/40 128/50 (76) 109/48 Pulse Ox 100 O2 Delivery Mechanical Ventilator Ventilator 01/08/19 01/08/19 01/08/19 01/08/19 12:50 13:24 13:54 14:22 Temp 99.8 100.5 99.8 100.5 Pulse 139 132 132 Resp 24 24 20 B/P (MAP) 109/48 105/47 108/45 Pulse Ox 95 O2 Delivery Ventilator 01/08/19 01/08/19 01/08/19 01/08/19 14:38 15:00 15:17 15:59 Pulse 132 132 Resp 26 28 B/P (MAP) 106/45 (65) 101/53 (69) Pulse Ox 100 95 O2 Delivery Ventilator Ventilator Ventilator Mechanical Ventilator 01/08/19 01/08/19 01/08/19 01/08/19 16:15 16:28 17:08 17:20 Temp 99.8 99.8 Pulse 120 128 133 Resp 20 26 B/P (MAP) 98/37 (57) 102/46 (64) Pulse Ox 100 95 100 O2 Delivery Ventilator Ventilator Ventilator 01/08/19 01/08/19 01/08/19 01/08/19 18:18 18:51 19:00 20:00 Temp 102.0 101.4 101.3 102.0 101.4 101.3 Pulse 129 123 Resp 27 20 B/P (MAP) 101/47 (65) 99/45 (63) Pulse Ox 100 100 O2 Delivery Ventilator Ventilator Mechanical Ventilator 01/08/19 01/08/19 01/08/19 01/08/19 20:00 20:18 21:00 22:00 Pulse 120 110 103 Resp 22 B/P (MAP) 85/41 (56) 87/39 (55) 92/40 (57) Pulse Ox 100 99 100 100 O2 Delivery Ventilator Ventilator Ventilator Ventilator 01/08/19 01/08/19 01/08/19 01/08/19 23:00 23:25 23:59 23:59 Pulse 104 Resp 24 14 B/P (MAP) 91/40 (57) Pulse Ox 100 99 100 O2 Delivery Ventilator Ventilator Mechanical Ventilator O2 Flow Rate 2.0 01/08/19 01/09/19 01/09/19 01/09/19 23:59 01:00 01:15 01:43 Temp 98.5 98.5 Pulse 104 5 5 Resp 22 B/P (MAP) 91/58 (69) 75/35 (48) 101/44 (63) Pulse Ox 100 100 100 99 O2 Delivery Ventilator Ventilator Ventilator Ventilator 01/09/19 01/09/19 01/09/19 01/09/19 02:00 03:00 03:08 04:00 Temp 98.9 98.9 Pulse 106 106 102 Resp 22 B/P (MAP) 90/44 (59) 90/44 (59) 106/51 (69) Pulse Ox 100 100 99 100 O2 Delivery Ventilator Ventilator Ventilator Ventilator 01/09/19 01/09/19 01/09/19 01/09/19 04:00 04:21 04:53 05:00 Pulse 104 Resp 26 B/P (MAP) 102/49 (66) Pulse Ox 100 99 100 O2 Delivery Mechanical Ventilator Ventilator Ventilator O2 Flow Rate 2.0 01/09/19 01/09/19 01/09/19 01/09/19 06:01 07:00 07:00 07:29 Pulse 104 104 Resp 24 22 B/P (MAP) 108/50 (69) 101/45 (63) Pulse Ox 100 100 100 96 O2 Delivery Ventilator Ventilator Ventilator O2 Flow Rate 2.0 01/09/19 01/09/19 01/09/19 01/09/19 07:45 08:00 09:00 09:15 Temp 99.2 99.2 Pulse 102 102 Resp 18 24 B/P (MAP) 101/49 (66) 100/46 (64) Pulse Ox 97 97 97 O2 Delivery Mechanical Ventilator Ventilator Ventilator Ventilator Intake and Output 01/08/19 01/08/19 01/09/19 15:00 23:00 07:00 Intake Total 732 ml 2789 ml 835 ml Output Total 845 ml 624 ml 380 ml Balance -113 ml 2165 ml 455 ml MAIK GUNN MD Jan 09, 2019 10:10
[2019-01-09] MEDS ORDERED: ALBUMIN HUMAN 25% 100 ML IV ONE (10:15)
[2019-01-09] MEDS ORDERED: METOCLOPRAMIDE HCL 10 MG/2 ML VIAL. IVP PRN (10:15)
--- NOTE | 2019-01-09 11:02 | PDOC ---
Objective: Objective: No bleeding per nurse. D/w Dr. Warren - wondering about tube feeds. Vital Signs: Vital Signs Date Time Temp Pulse Resp B/P (MAP) Pulse Ox O2 Delivery O2 Flow Rate FiO2 01/09/19 10:00 103 25 106/54 (71) 97 Ventilator 01/09/19 08:00 99.2 99.2 01/09/19 07:00 2.0 Labs: Laboratory Tests Test 01/08/19 11:30 01/08/19 11:42 01/08/19 16:00 01/09/19 05:10 White Blood Count 9.9 x10^3/uL 22.6 x10^3/uL Red Blood Count 2.50 x10^6/uL 2.37 x10^6/uL Hemoglobin 8.4 g/dL 8.3 g/dL 7.8 g/dL Hematocrit 24.3 % 23.6 % 22.7 % Mean Corpuscular Volume 97 fL 96 fL Mean Corpuscular Hemoglobin 34 pg 33 pg Mean Corpuscular Hemoglobin Concent 35 g/dL 35 g/dL 35 g/dL Red Cell Distribution Width 14.6 % 15.2 % Platelet Count 157 x10^3/uL 176 x10^3/uL Lactic Acid Level 7.0 mmol/L 3.7 mmol/L Ammonia 68 mcmol/L O2 Saturation 96 % Arterial Blood pH 7.36 Arterial Blood pCO2 at Patient Temp 39 mmHg Arterial Blood pO2 at Patient Temp 99 mmHg Arterial Blood HCO3 22 mmol/L Arterial Blood Base Excess -4 mmol/L FiO2 100 Prothrombin Time 18.3 SEC 18.1 SEC Prothromb Time International Ratio 1.6 1.5 Neutrophils (%) (Auto) 83 % Lymphocytes (%) (Auto) 10 % Monocytes (%) (Auto) 7 % Eosinophils (%) (Auto) 0 % Basophils (%) (Auto) 1 % Neutrophils # (Auto) 18.7 x10^3/uL Lymphocytes # (Auto) 2.2 x10^3/uL Monocytes # (Auto) 1.6 x10^3/uL Eosinophils # (Auto) 0.0 x10^3/uL Basophils # (Auto) 0.1 x10^3/uL Sodium Level 137 mmol/L Potassium Level 3.3 mmol/L Chloride Level 99 mmol/L Carbon Dioxide Level 27 mmol/L Anion Gap 11 Blood Urea Nitrogen 52 mg/dL Creatinine 1.6 mg/dL Estimated GFR (Cockcroft-Gault) 48.6 BUN/Creatinine Ratio 33 Glucose Level 137 mg/dL Calcium Level 6.5 mg/dL Total Bilirubin 11.3 mg/dL Aspartate Amino Transf (AST/SGOT) 560 U/L Alanine Aminotransferase (ALT/SGPT) 181 U/L Alkaline Phosphatase 133 U/L Total Protein 5.5 g/dL Albumin 1.5 g/dL Albumin/Globulin Ratio 0.4 Lipase 153 U/L Test 01/09/19 08:00 01/09/19 08:50 O2 Saturation 92 % Arterial Blood pH 7.46 Arterial Blood pCO2 at Patient Temp 38 mmHg Arterial Blood pO2 at Patient Temp 65 mmHg Arterial Blood HCO3 26 mmol/L Arterial Blood Base Excess 2 mmol/L FiO2 70 Lactic Acid Level 2.8 mmol/L BLOOD CULTURE Preliminary NO GROWTH AFTER 1 DAY Imaging: EGD 01/08 E--NO VARICES. Erosions distally c/w reflux/repeated emesis. One quite long narrow erosion which could have been a M-W. No active bleeding or clot. G--Not much retained blood after OG suction and Reglan. NO gastric varices. Linear erosions along the rugae in fundus and body c/w alcoholic or stress gastritis. Scattered "bruises" from OG tube. No ulcer, etc. D--Normal to second portion. IMP: Reflux esophagitis. ? recent M-W tear. Alcoholic gastritis. No active bleeding or clot seen. CXR 01/09 IMPRESSION: 1. Increased basilar atelectasis and infiltrate on the right greater than left. 2. Persistent prominence of the right peritracheal stripe. Attention on further follow-up. PE: GEN: intubated LUNGS: vent HEART: mildly tachycardic ABD: soft NEURO/PSYCH: sedated A/P: Hematemesis, melena - resolved - no active bleeding on EGD as above GERD, ?M-W tear, alcoholic gastritis Alcoholic hepatitis, +Hep C Ab Resp failure, leukocytosis, lactic acidosis, DOMONIQUE -- Okay to try OG feeds per Dr. Goodman. Continue PPI - will change to IV push from drip. PINKY GONZALES Jan 09, 2019 11:02
[2019-01-09] MEDS: INSULIN LISPRO 300 UNITS/3 ML VIAL. SQ SCH ×2 (12:00→17:00)
[2019-01-09] MEDS ORDERED: LACTULOSE for RECTAL 200 GM/300 ML SOLUTION. PR SCH (12:00)
[2019-01-09] MEDS: LACTULOSE 20 GM/30 ML SOLUTION. PO SCH (12:11)
--- NOTE | 2019-01-09 12:36 | RAD ---
Limited abdominal ultrasound 01/09/2019 INDICATION: Ascites. Hepatitis C. Elevated transaminases. Patient unresponsive on a ventilator. COMPARISON STUDY: CT of the abdomen and pelvis. January 07, 2019. Discussion: Limited abdominal ultrasound was performed. The pancreas is nonvisualized. Sludge noted within the gallbladder lumen. Gallbladder wall is top normal thickness. Trace pericholecystic fluid there is a be present. The common bile duct is nondilated at 4 mm. Liver is enlarged measuring 25 cm longitudinally. No focal hepatic lesions are identified on limited provided images. The right kidney is normal in appearance measuring 13.7 cm in length. Only trace ascites is now identified in the left upper and lower quadrants. Discussion: 1. Hepatomegaly 2. Sludge within the gallbladder lumen. Gallbladder wall top normal in thickness with mild pericholecystic fluid. Noyola sign unable to be assessed. In the setting of ascites ultrasound findings alone are somewhat nonspecific. If there is continued clinical concern for acute cholecystitis, consider hepatobiliary imaging. 3. Trace ascites most commonly in the left upper and lower quadrant Electronically signed by: Eliazar Kiser MD (01/09/2019 12:33 PM) [id number]
[2019-01-09] MEDS: MIDAZOLAM 100mg/100ml NS BAG 100 ML IV PRN ×2 (14:35→23:38)
[2019-01-09] MEDS: ACETAMINOPHEN 650 MG SUPP.RECT. PR PRN (23:44)
[2019-01-10] VITALS (24 sets, daily range): BP systolic 97–134; BP diastolic 47–70
[2019-01-10] MEDS: PROPOFOL 100 ML IV PRN ×4 (03:11→22:11)
[2019-01-10] MEDS: PIPERACILLIN/TAZOBACTAM 3.375 GM in IV NORMAL SALINE 50ML 50 ML IV SCH ×3 (05:31→18:11)
[2019-01-10 05:35] LABS: BASO # 0.1 x10^3/uL (0.0-0.2); BASO % 1 % (0-3); EOS # 0.1 x10^3/uL (0.0-0.7); EOS % 1 % (0-3); HEMATOCRIT 23.9 % (39.0-53.0); HEMOGLOBIN 8.2 g/dL (13.0-17.5); LYMPH # 2.1 x10^3/uL (1.0-4.8); LYMPH % 13 % (24-48); MEAN CORPUSCULAR HEMOGLOBIN 33 pg (25-35); MEAN CORPUSCULAR HGB CONC 34 g/dL (31-37); MEAN CORPUSCULAR VOLUME 96 fL (79-100); MONO # 1.5 x10^3/uL (0.0-1.1); MONO % 10 % (0-9); NEUT # 11.8 x10^3/uL (1.8-7.7); NEUT % 76 % (31-73); PLATELET COUNT 190 x10^3/uL (140-400); RED BLOOD COUNT 2.48 x10^6/uL (4.30-5.70); RED CELL DISTRIBUTION WIDTH 15.2 % (11.5-14.5); WHITE BLOOD COUNT 15.6 x10^3/uL (4.0-11.0)
[2019-01-10 06:03] LABS: ALBUMIN 1.7 g/dL (3.4-5.0); ALBUMIN/GLOBULIN RATIO 0.4 (1.0-1.7); CALCIUM 6.8 mg/dL (8.5-10.1); CREATININE 1.3 mg/dL (0.7-1.3); GFR 61.8; TOTAL BILIRUBIN 10.4 mg/dL (0.2-1.0)
--- NOTE | 2019-01-10 06:19 | PDOC ---
PULMONARY PROGRESS NOTES Subjective SEDATED ON AC MODE 7 PEEP 70 %, on propofol, versed, fentanyl, large ett secretion Vitals Vital Signs Date Time Temp Pulse Resp B/P (MAP) Pulse Ox O2 Delivery O2 Flow Rate FiO2 01/10/19 05:42 92 Ventilator 01/10/19 05:00 104 28 101/57 (72) 01/10/19 04:13 2.0 01/10/19 04:00 100.0 100.0 Comments ros as mentioned as above discussed w rn other sys otherwise neg on vent sedated HEENT: Other (nc at perrl nose clear orally intubated neck no lad no thyromegaly) Lungs: Crackles Cardiovascular: S1, S2 Abdomen: Soft, Non-tender, Other (DISTENDED no mass) Extremities: Other (EDEMA) Skin: Warm Labs Laboratory Tests Test 01/08/19 06:29 01/08/19 07:31 01/08/19 09:40 01/08/19 09:43 Urine Collection Type Unknown Urine Color Yellow Urine Clarity Clear Urine pH 6.0 Urine Specific [place] 1.015 Urine Protein Negative mg/dL (NEG-TRACE) Urine Glucose (UA) Negative mg/dL (NEG) Urine Ketones (Stick) Negative mg/dL (NEG) Urine Blood Moderate (NEG) Urine Nitrite Negative (NEG) Urine Bilirubin Moderate (NEG) Urine Urobilinogen Dipstick 1.0 mg/dL (0.2 mg/dL) Urine Leukocyte Esterase Moderate (NEG) Urine RBC 11-20 /HPF (0-2) Urine WBC 5-10 /HPF (0-4) Urine Bacteria Moderate /HPF (0-FEW) Urine Mucus Slight /LPF Urine Opiates Screen Neg (NEG) Urine Methadone Screen Neg (NEG) Urine Barbiturates Neg (NEG) Urine Phencyclidine Screen Neg (NEG) Urine Amphetamine/Methamphetamine Neg (NEG) Urine Benzodiazepines Screen Neg (NEG) Urine Cocaine Screen Neg (NEG) Urine Cannabinoids Screen Neg (NEG) Urine Ethyl Alcohol Neg (NEG) Lactic Acid Level 10.1 mmol/L (0.4-2.0) Hemoglobin 7.0 g/dL (13.0-17.5) Hematocrit 20.3 % (39.0-53.0) Mean Corpuscular Hemoglobin Concent 35 g/dL (31-37) Hepatitis A IgM Antibody Nonreactive (Nonreactive) Hepatitis B Surface Antigen Nonreactive (Nonreactive) Hepatitis B Core IgM Antibody Nonreactive (Nonreactive) Hepatitis C IgG Antibody Reactive (Nonreactive) O2 Saturation 98 % (92-99) Arterial Blood pH 7.33 (7.35-7.45) Arterial Blood pCO2 at Patient Temp 45 mmHg (35-46) Arterial Blood pO2 at Patient Temp 134 mmHg (85-108) Arterial Blood HCO3 23 mmol/L (21-28) Arterial Blood Base Excess -3 mmol/L (-3-3) FiO2 100 Test 01/08/19 11:30 01/08/19 11:42 01/08/19 16:00 01/09/19 05:10 White Blood Count 9.9 x10^3/uL (4.0-11.0) 22.6 x10^3/uL (4.0-11.0) Red Blood Count 2.50 x10^6/uL (4.30-5.70) 2.37 x10^6/uL (4.30-5.70) Hemoglobin 8.4 g/dL (13.0-17.5) 8.3 g/dL (13.0-17.5) 7.8 g/dL (13.0-17.5) Hematocrit 24.3 % (39.0-53.0) 23.6 % (39.0-53.0) 22.7 % (39.0-53.0) Mean Corpuscular Volume 97 fL (79-100) 96 fL (79-100) Mean Corpuscular Hemoglobin 34 pg (25-35) 33 pg (25-35) Mean Corpuscular Hemoglobin Concent 35 g/dL (31-37) 35 g/dL (31-37) 35 g/dL (31-37) Red Cell Distribution Width 14.6 % (11.5-14.5) 15.2 % (11.5-14.5) Platelet Count 157 x10^3/uL (140-400) 176 x10^3/uL (140-400) Lactic Acid Level 7.0 mmol/L (0.4-2.0) 3.7 mmol/L (0.4-2.0) Ammonia 68 mcmol/L (11-34) O2 Saturation 96 % (92-99) Arterial Blood pH 7.36 (7.35-7.45) Arterial Blood pCO2 at Patient Temp 39 mmHg (35-46) Arterial Blood pO2 at Patient Temp 99 mmHg (85-108) Arterial Blood HCO3 22 mmol/L (21-28) Arterial Blood Base Excess -4 mmol/L (-3-3) FiO2 100 Prothrombin Time 18.3 SEC (11.7-14.0) 18.1 SEC (11.7-14.0) Prothromb Time International Ratio 1.6 (0.8-1.1) 1.5 (0.8-1.1) Neutrophils (%) (Auto) 83 % (31-73) Lymphocytes (%) (Auto) 10 % (24-48) Monocytes (%) (Auto) 7 % (0-9) Eosinophils (%) (Auto) 0 % (0-3) Basophils (%) (Auto) 1 % (0-3) Neutrophils # (Auto) 18.7 x10^3/uL (1.8-7.7) Lymphocytes # (Auto) 2.2 x10^3/uL (1.0-4.8) Monocytes # (Auto) 1.6 x10^3/uL (0.0-1.1) Eosinophils # (Auto) 0.0 x10^3/uL (0.0-0.7) Basophils # (Auto) 0.1 x10^3/uL (0.0-0.2) Sodium Level 137 mmol/L (136-145) Potassium Level 3.3 mmol/L (3.5-5.1) Chloride Level 99 mmol/L (98-107) Carbon Dioxide Level 27 mmol/L (21-32) Anion Gap 11 (6-14) Blood Urea Nitrogen 52 mg/dL (8-26) Creatinine 1.6 mg/dL (0.7-1.3) Estimated GFR (Cockcroft-Gault) 48.6 BUN/Creatinine Ratio 33 (6-20) Glucose Level 137 mg/dL (70-99) Calcium Level 6.5 mg/dL (8.5-10.1) Total Bilirubin 11.3 mg/dL (0.2-1.0) Aspartate Amino Transf (AST/SGOT) 560 U/L (15-37) Alanine Aminotransferase (ALT/SGPT) 181 U/L (16-63) Alkaline Phosphatase 133 U/L (46-116) Total Protein 5.5 g/dL (6.4-8.2) Albumin 1.5 g/dL (3.4-5.0) Albumin/Globulin Ratio 0.4 (1.0-1.7) Lipase 153 U/L (73-393) Test 01/09/19 08:00 01/09/19 08:50 01/09/19 12:08 01/09/19 17:19 O2 Saturation 92 % (92-99) Arterial Blood pH 7.46 (7.35-7.45) Arterial Blood pCO2 at Patient Temp 38 mmHg (35-46) Arterial Blood pO2 at Patient Temp 65 mmHg (85-108) Arterial Blood HCO3 26 mmol/L (21-28) Arterial Blood Base Excess 2 mmol/L (-3-3) FiO2 70 Lactic Acid Level 2.8 mmol/L (0.4-2.0) Glucose (Fingerstick) 133 mg/dL (70-99) 129 mg/dL (70-99) Test 01/10/19 05:00 White Blood Count 15.6 x10^3/uL (4.0-11.0) Red Blood Count 2.48 x10^6/uL (4.30-5.70) Hemoglobin 8.2 g/dL (13.0-17.5) Hematocrit 23.9 % (39.0-53.0) Mean Corpuscular Volume 96 fL (79-100) Mean Corpuscular Hemoglobin 33 pg (25-35) Mean Corpuscular Hemoglobin Concent 34 g/dL (31-37) Red Cell Distribution Width 15.2 % (11.5-14.5) Platelet Count 190 x10^3/uL (140-400) Neutrophils (%) (Auto) 76 % (31-73) Lymphocytes (%) (Auto) 13 % (24-48) Monocytes (%) (Auto) 10 % (0-9) Eosinophils (%) (Auto) 1 % (0-3) Basophils (%) (Auto) 1 % (0-3) Neutrophils # (Auto) 11.8 x10^3/uL (1.8-7.7) Lymphocytes # (Auto) 2.1 x10^3/uL (1.0-4.8) Monocytes # (Auto) 1.5 x10^3/uL (0.0-1.1) Eosinophils # (Auto) 0.1 x10^3/uL (0.0-0.7) Basophils # (Auto) 0.1 x10^3/uL (0.0-0.2) Sodium Level 142 mmol/L (136-145) Potassium Level 3.0 mmol/L (3.5-5.1) Chloride Level 104 mmol/L (98-107) Carbon Dioxide Level 29 mmol/L (21-32) Anion Gap 9 (6-14) Blood Urea Nitrogen 49 mg/dL (8-26) Creatinine 1.3 mg/dL (0.7-1.3) Estimated GFR (Cockcroft-Gault) 61.8 BUN/Creatinine Ratio 38 (6-20) Glucose Level 118 mg/dL (70-99) Calcium Level 6.8 mg/dL (8.5-10.1) Total Bilirubin 10.4 mg/dL (0.2-1.0) Aspartate Amino Transf (AST/SGOT) 421 U/L (15-37) Alanine Aminotransferase (ALT/SGPT) 168 U/L (16-63) Alkaline Phosphatase 130 U/L (46-116) Ammonia 64 mcmol/L (11-34) Total Protein 6.0 g/dL (6.4-8.2) Albumin 1.7 g/dL (3.4-5.0) Albumin/Globulin Ratio 0.4 (1.0-1.7) Laboratory Tests Test 01/09/19 08:00 01/09/19 08:50 01/09/19 12:08 01/09/19 17:19 O2 Saturation 92 % (92-99) Arterial Blood pH 7.46 (7.35-7.45) Arterial Blood pCO2 at Patient Temp 38 mmHg (35-46) Arterial Blood pO2 at Patient Temp 65 mmHg (85-108) Arterial Blood HCO3 26 mmol/L (21-28) Arterial Blood Base Excess 2 mmol/L (-3-3) FiO2 70 Lactic Acid Level 2.8 mmol/L (0.4-2.0) Glucose (Fingerstick) 133 mg/dL (70-99) 129 mg/dL (70-99) Test 01/10/19 05:00 White Blood Count 15.6 x10^3/uL (4.0-11.0) Red Blood Count 2.48 x10^6/uL (4.30-5.70) Hemoglobin 8.2 g/dL (13.0-17.5) Hematocrit 23.9 % (39.0-53.0) Mean Corpuscular Volume 96 fL (79-100) Mean Corpuscular Hemoglobin 33 pg (25-35) Mean Corpuscular Hemoglobin Concent 34 g/dL (31-37) Red Cell Distribution Width 15.2 % (11.5-14.5) Platelet Count 190 x10^3/uL (140-400) Neutrophils (%) (Auto) 76 % (31-73) Lymphocytes (%) (Auto) 13 % (24-48) Monocytes (%) (Auto) 10 % (0-9) Eosinophils (%) (Auto) 1 % (0-3) Basophils (%) (Auto) 1 % (0-3) Neutrophils # (Auto) 11.8 x10^3/uL (1.8-7.7) Lymphocytes # (Auto) 2.1 x10^3/uL (1.0-4.8) Monocytes # (Auto) 1.5 x10^3/uL (0.0-1.1) Eosinophils # (Auto) 0.1 x10^3/uL (0.0-0.7) Basophils # (Auto) 0.1 x10^3/uL (0.0-0.2) Sodium Level 142 mmol/L (136-145) Potassium Level 3.0 mmol/L (3.5-5.1) Chloride Level 104 mmol/L (98-107) Carbon Dioxide Level 29 mmol/L (21-32) Anion Gap 9 (6-14) Blood Urea Nitrogen 49 mg/dL (8-26) Creatinine 1.3 mg/dL (0.7-1.3) Estimated GFR (Cockcroft-Gault) 61.8 BUN/Creatinine Ratio 38 (6-20) Glucose Level 118 mg/dL (70-99) Calcium Level 6.8 mg/dL (8.5-10.1) Total Bilirubin 10.4 mg/dL (0.2-1.0) Aspartate Amino Transf (AST/SGOT) 421 U/L (15-37) Alanine Aminotransferase (ALT/SGPT) 168 U/L (16-63) Alkaline Phosphatase 130 U/L (46-116) Ammonia 64 mcmol/L (11-34) Total Protein 6.0 g/dL (6.4-8.2) Albumin 1.7 g/dL (3.4-5.0) Albumin/Globulin Ratio 0.4 (1.0-1.7) Comments cxr reviewed, ett ok Overall increased patchy infiltrates and discoid atelectasis. Slight improvement in retrocardiac aeration. Impression . IMPRESSION: 1. Acute respiratory failure, multifactorial, secondary to multiorgan failure. 2. End-stage liver disease. 3. Multiorgan failure. 4. Renal failure. 5. Acute gastrointestinal bleed. 6. Possible sepsis. 7. Leukocytosis. 8. Hematemesis. 9. Rhabdomyolysis. 10. Alcohol abuse. 11. Ascites. 12. Electrolyte abnormalities. 13. fever Imaging: EGD 01/08 E--NO VARICES. Erosions distally c/w reflux/repeated emesis. One quite long narrow erosion which could have been a M-W. No active bleeding or clot. G--Not much retained blood after OG suction and Reglan. NO gastric varices. Linear erosions along the rugae in fundus and body c/w alcoholic or stress gastritis. Scattered "bruises" from OG tube. No ulcer, etc. D--Normal to second portion. IMP: Reflux esophagitis. ? recent M-W tear. Alcoholic gastritis. No active bleeding or clot seen. Plan . cont vent support, setting reviewed, no stable for sbt, desating, increase peep to 10, cont 02 titration YACHT HAND PROGNOSIS IS POOR ANTIBX per id 1. D/W RN AND RT 2. Continue antibiotics per Infectious Disease service. 3. IV fluids. 4. monitor h/h 5. Monitor hemoglobin and hematocrit. 6. Follow GI recommendation. 7. Alcohol withdrawal protocol. GRAEME MONTALVO MD Jan 10, 2019 06:19
--- NOTE | 2019-01-10 07:33 | RAD ---
Examination: PORTABLE CHEST 1V History: Renal failure Comparison/Correlation: 01/09/2019 portable chest x-ray Findings: Portable semiupright frontal view of the chest was obtained. Endotracheal and nasogastric tubes again identified. Heart size is borderline. The pulmonary fissures noted. Diffuse patchy infiltrates again identified. Linear discoid atelectasis is seen. Very small pleural effusions are suspected. Slight improvement in aeration of the retrocardiac region is suggested. Impression: Overall increased patchy infiltrates and discoid atelectasis. Slight improvement in retrocardiac aeration. Electronically signed by: Kenyon Acuña MD (01/10/2019 7:30 AM) [id number]
[2019-01-10] MEDS: LACTULOSE 20 GM/30 ML SOLUTION. PO SCH (07:59)
[2019-01-10] MEDS: IV NORMAL SALINE 1000ML BAG 1,000 ML IV SCH (08:00)
[2019-01-10] MEDS: PANTOPRAZOLE IV PUSH 40 MG VIAL. IVP SCH (08:00)
[2019-01-10] MEDS: INSULIN LISPRO 300 UNITS/3 ML VIAL. SQ SCH ×3 (08:00→17:00)
[2019-01-10] MEDS: MULTIVIT INFUSN,ADULT 4,VIT K 10 ML, THIAMINE INJ 100 MG, FOLIC ACID INJ 1 MG in IV NOR... IV SCH (08:12)
[2019-01-10 08:53] LABS: BASE EXCESS ABG 4 mmol/L (-3-3); HCO3 ABG 28 mmol/L (21-28); PCO2 ABG 38 mmHg (35-46); SAT O2 ABG 80 % (92-99)
--- NOTE | 2019-01-10 09:09 | PDOC ---
Infectious Disease Note Subjective Subjective Sedated Orally intubated FiO2 40% PEEP 10 + secretions Fever Tmax 101.6 BP better, off pressors ROS ROS unobtainable Vital Sign Vital Signs Vital Signs Date Time Temp Pulse Resp B/P (MAP) Pulse Ox O2 Delivery O2 Flow Rate FiO2 01/10/19 07:00 102 22 106/67 (80) 92 Ventilator 01/10/19 04:13 2.0 01/10/19 04:00 100.0 100.0 Physical Exam PHYSICAL EXAM GENERAL: Orally intubated and sedated, mitts HEENT: Pupils equal, ETT and OGT NECK: Supple LUNGS: Clear anterior HEART: S1/S2. ABDOMEN: Obese, soft, hypoactive BS : - [place]ard EXTREMITIES: Trace edema lower extremities bilaterally. LLE ecchymosis. SKIN: Warm to touch. No rash NEUROLOGIC: Sedated PIV s clean Labs Lab Laboratory Tests Test 01/09/19 12:08 01/09/19 17:19 01/10/19 05:00 01/10/19 08:04 Glucose (Fingerstick) 133 mg/dL (70-99) 129 mg/dL (70-99) 109 mg/dL (70-99) White Blood Count 15.6 x10^3/uL (4.0-11.0) Red Blood Count 2.48 x10^6/uL (4.30-5.70) Hemoglobin 8.2 g/dL (13.0-17.5) Hematocrit 23.9 % (39.0-53.0) Mean Corpuscular Volume 96 fL (79-100) Mean Corpuscular Hemoglobin 33 pg (25-35) Mean Corpuscular Hemoglobin Concent 34 g/dL (31-37) Red Cell Distribution Width 15.2 % (11.5-14.5) Platelet Count 190 x10^3/uL (140-400) Neutrophils (%) (Auto) 76 % (31-73) Lymphocytes (%) (Auto) 13 % (24-48) Monocytes (%) (Auto) 10 % (0-9) Eosinophils (%) (Auto) 1 % (0-3) Basophils (%) (Auto) 1 % (0-3) Neutrophils # (Auto) 11.8 x10^3/uL (1.8-7.7) Lymphocytes # (Auto) 2.1 x10^3/uL (1.0-4.8) Monocytes # (Auto) 1.5 x10^3/uL (0.0-1.1) Eosinophils # (Auto) 0.1 x10^3/uL (0.0-0.7) Basophils # (Auto) 0.1 x10^3/uL (0.0-0.2) Sodium Level 142 mmol/L (136-145) Potassium Level 3.0 mmol/L (3.5-5.1) Chloride Level 104 mmol/L (98-107) Carbon Dioxide Level 29 mmol/L (21-32) Anion Gap 9 (6-14) Blood Urea Nitrogen 49 mg/dL (8-26) Creatinine 1.3 mg/dL (0.7-1.3) Estimated GFR (Cockcroft-Gault) 61.8 BUN/Creatinine Ratio 38 (6-20) Glucose Level 118 mg/dL (70-99) Calcium Level 6.8 mg/dL (8.5-10.1) Total Bilirubin 10.4 mg/dL (0.2-1.0) Aspartate Amino Transf (AST/SGOT) 421 U/L (15-37) Alanine Aminotransferase (ALT/SGPT) 168 U/L (16-63) Alkaline Phosphatase 130 U/L (46-116) Ammonia 64 mcmol/L (11-34) Total Protein 6.0 g/dL (6.4-8.2) Albumin 1.7 g/dL (3.4-5.0) Albumin/Globulin Ratio 0.4 (1.0-1.7) Procalcitonin 4.70 ng/mL (0.00-0.10) Impression: Overall increased patchy infiltrates and discoid atelectasis. Slight improvement in retrocardiac aeration. ABD US 1. Hepatomegaly 2. Sludge within the gallbladder lumen. Gallbladder wall top normal in thickness with mild pericholecystic fluid. Noyola sign unable to be assessed. In the setting of ascites ultrasound findings alone are somewhat nonspecific. If there is continued clinical concern for acute cholecystitis, consider hepatobiliary imaging. 3. Trace ascites most commonly in the left upper and lower quadrant Micro Microbiology 01/08/19 Blood Culture - Preliminary, Resulted NO GROWTH AFTER 1 DAY 01/08/19 Urine Culture - Final, Complete 01/08/19 Urine Culture Result 1 (ELMA) - Final, Complete Objective Assessment Hypotension - off pressors Fever - curve improving ? ID vs PRBCs vs reactive vs Withdrawl Leukocytosis - ? reactive, improved Lactic acidosis - better Resp failure now intubated ? UTI. cultures neg Anemia - s/p PRBCs GI Bleed - s/p EGD 01/08 - Reflux esophagitis. ? recent M-W tear. Alcoholic gastritis. DOMONIQUE Transaminitis - better Hep C ? pancreatitis Rhabdo CK 965 ETOH abuse with mild ascites Electrolyte abnormalities Obstructive resp issues Left leg echymosis Plan Plan of Care Cont Zosyn. Procalcitonin 4.70 Sputum culture Monitor labs/temp Critically ill D/w nursing Patient seen and examined. Chart reviewed in detail. Case discussed with PARADI TENDER. Agree with above plan ANNEMARIE MARTINEZ APRN Jan 10, 2019 09:09 YARITZA GOMEZ MD Jan 10, 2019 18:32
--- NOTE | 2019-01-10 09:10 | PDOC ---
PROGRESS NOTES Chief Complaint Chief Complaint Acute respi falure, IPPV - 01.08, fluid overload? - check echo, vent bundle, CXR shows "Atypical infection" HEMATEMESIS in A HEAVY DRINKER -Atrophic gastritis ? MW BUT NO ACTIVE GIB - s.po STAT EGD 01/08 SEVERE PCM - albumin 1,7 -s/p albumin 01/09 - off pressors by 01/10 MInimal ascites - by US and CT - no tapable fluid HYPOTENSION, s/p, pressors standby, albumin, blood products if needed Coagulopathy -s .p vit K, HEPATIC enceph - ammonia midly high 60-90s - lactulose,AL HIGH residuals TRAMSAMINITIS with ELEVATED TB- per GI (TB 9), AST 300s-500s HEp C antibody positive LEft leg bruise, in this coagulopathic anemic pt sec to fall 2 weeks ago - monitor ELEAVTED AGAP acidosis, renal consulted, can check PH in ABG - better History of Present Illness History of Present Illness INtubated, sedated off pressor ON 3 sedations now (needed to add the thrid one saturday night) CXR worse, saturday needs higher PEEP, now to 10 70% FiO2 UO ok EGD results noted, no active GIB, poss MW, atrophic gastritis STOP SANDOSTATIN, CONT PPI gtt, SCDS AMMONIA 60-90s HEp c positive IgG HIGH GASTRIC RESIDUALS PLAN HOLD TF s for NOW REGLAN PRN ORDERED SATURDAY COnt LACTULSOE FOR NOW RECTAL (ammoniha moderately high, no BM) NO bleeding so far Check echo, consult cards Prog poor, DOnt see him coming off the vent soon US shows minimal ascites, hepatomegaly HYpernatremia better Start 40 PO BID -- K 3.0 (has been low for days) CReat ok s/p albumin 50 gms 01/09- NOW OFF PRESSORS (might have helped- albumin was only 1.8) CC 35 Vitals Vitals Vital Signs Date Time Temp Pulse Resp B/P (MAP) Pulse Ox O2 Delivery O2 Flow Rate FiO2 01/10/19 08:56 89 Ventilator 01/10/19 07:00 102 22 106/67 (80) 01/10/19 04:13 2.0 01/10/19 04:00 100.0 100.0 Physical Exam Physical Exam CONSTITUTIONAL: Intubated/ssedted HEENT: Pupils equal and reactive. He has icteric sclerae. ETT NECK: Supple, no JVD. LUNGS: Without wheeze, no rhonchi. HEART: S1/S2. ABDOMEN: Obese, soft, no guarding, no rebound. : - esteves EXTREMITIES: Without clubbing, cyanosis. His left lower extremity has a large ecchymosis from his thigh down to his lower third of the tibial area. There is no gross erythema. No knee effusion. There is no warmth. It is nontender. His right great toenail has a small trunk that is missing out of it, but there is no surrounding erythema. It is nontender. There is no swelling. SKIN: Otherwise without signs of rash. NEUROLOGIC: Sedated PSYCHIATRIC: Unable to assess IVs: - PIV s clean General: Other (tachypneic 30s) Heart: Regular rate, Normal S1, Normal S2 Lungs: Crackles Abdomen: Soft, No tenderness, Other (pot belly possible fluid wave) Extremities: No clubbing, No cyanosis, Normal pulses, Other (left leg is b ruised from a fall 2-3 weeks ago) Labs LABS Laboratory Tests Test 01/09/19 12:08 01/09/19 17:19 01/10/19 05:00 01/10/19 08:04 Glucose (Fingerstick) 133 mg/dL (70-99) 129 mg/dL (70-99) 109 mg/dL (70-99) White Blood Count 15.6 x10^3/uL (4.0-11.0) Red Blood Count 2.48 x10^6/uL (4.30-5.70) Hemoglobin 8.2 g/dL (13.0-17.5) Hematocrit 23.9 % (39.0-53.0) Mean Corpuscular Volume 96 fL (79-100) Mean Corpuscular Hemoglobin 33 pg (25-35) Mean Corpuscular Hemoglobin Concent 34 g/dL (31-37) Red Cell Distribution Width 15.2 % (11.5-14.5) Platelet Count 190 x10^3/uL (140-400) Neutrophils (%) (Auto) 76 % (31-73) Lymphocytes (%) (Auto) 13 % (24-48) Monocytes (%) (Auto) 10 % (0-9) Eosinophils (%) (Auto) 1 % (0-3) Basophils (%) (Auto) 1 % (0-3) Neutrophils # (Auto) 11.8 x10^3/uL (1.8-7.7) Lymphocytes # (Auto) 2.1 x10^3/uL (1.0-4.8) Monocytes # (Auto) 1.5 x10^3/uL (0.0-1.1) Eosinophils # (Auto) 0.1 x10^3/uL (0.0-0.7) Basophils # (Auto) 0.1 x10^3/uL (0.0-0.2) Sodium Level 142 mmol/L (136-145) Potassium Level 3.0 mmol/L (3.5-5.1) Chloride Level 104 mmol/L (98-107) Carbon Dioxide Level 29 mmol/L (21-32) Anion Gap 9 (6-14) Blood Urea Nitrogen 49 mg/dL (8-26) Creatinine 1.3 mg/dL (0.7-1.3) Estimated GFR (Cockcroft-Gault) 61.8 BUN/Creatinine Ratio 38 (6-20) Glucose Level 118 mg/dL (70-99) Calcium Level 6.8 mg/dL (8.5-10.1) Total Bilirubin 10.4 mg/dL (0.2-1.0) Aspartate Amino Transf (AST/SGOT) 421 U/L (15-37) Alanine Aminotransferase (ALT/SGPT) 168 U/L (16-63) Alkaline Phosphatase 130 U/L (46-116) Ammonia 64 mcmol/L (11-34) Total Protein 6.0 g/dL (6.4-8.2) Albumin 1.7 g/dL (3.4-5.0) Albumin/Globulin Ratio 0.4 (1.0-1.7) Procalcitonin 4.70 ng/mL (0.00-0.10) Review of Systems Review of Systems intubated,s edated Assessment and Plan Assessmemt and Plan Problems Medical Problems: (1) Acute hepatic encephalopathy Status: Acute (2) Acute upper GI bleed Status: Acute (3) Ascites Status: Acute (4) Hypokalemia Status: Acute (5) Multiple organ system failure Status: Acute (6) Severe sepsis with acute organ dysfunction Status: Acute Comment Review of Relevant I have reviewed the following items karen (where applicable) has been applied. Labs Laboratory Tests Test 01/08/19 09:40 01/08/19 09:43 01/08/19 11:30 01/08/19 11:42 Hemoglobin 7.0 g/dL (13.0-17.5) 8.4 g/dL (13.0-17.5) Hematocrit 20.3 % (39.0-53.0) 24.3 % (39.0-53.0) Mean Corpuscular Hemoglobin Concent 35 g/dL (31-37) 35 g/dL (31-37) Hepatitis A IgM Antibody Nonreactive (Nonreactive) Hepatitis B Surface Antigen Nonreactive (Nonreactive) Hepatitis B Core IgM Antibody Nonreactive (Nonreactive) Hepatitis C IgG Antibody Reactive (Nonreactive) O2 Saturation 98 % (92-99) 96 % (92-99) Arterial Blood pH 7.33 (7.35-7.45) 7.36 (7.35-7.45) Arterial Blood pCO2 at Patient Temp 45 mmHg (35-46) 39 mmHg (35-46) Arterial Blood pO2 at Patient Temp 134 mmHg (85-108) 99 mmHg (85-108) Arterial Blood HCO3 23 mmol/L (21-28) 22 mmol/L (21-28) Arterial Blood Base Excess -3 mmol/L (-3-3) -4 mmol/L (-3-3) FiO2 100 100 White Blood Count 9.9 x10^3/uL (4.0-11.0) Red Blood Count 2.50 x10^6/uL (4.30-5.70) Mean Corpuscular Volume 97 fL (79-100) Mean Corpuscular Hemoglobin 34 pg (25-35) Red Cell Distribution Width 14.6 % (11.5-14.5) Platelet Count 157 x10^3/uL (140-400) Lactic Acid Level 7.0 mmol/L (0.4-2.0) Ammonia 68 mcmol/L (11-34) Test 01/08/19 16:00 01/09/19 05:10 01/09/19 08:00 01/09/19 08:50 Hemoglobin 8.3 g/dL (13.0-17.5) 7.8 g/dL (13.0-17.5) Hematocrit 23.6 % (39.0-53.0) 22.7 % (39.0-53.0) Mean Corpuscular Hemoglobin Concent 35 g/dL (31-37) 35 g/dL (31-37) Prothrombin Time 18.3 SEC (11.7-14.0) 18.1 SEC (11.7-14.0) Prothromb Time International Ratio 1.6 (0.8-1.1) 1.5 (0.8-1.1) White Blood Count 22.6 x10^3/uL (4.0-11.0) Red Blood Count 2.37 x10^6/uL (4.30-5.70) Mean Corpuscular Volume 96 fL (79-100) Mean Corpuscular Hemoglobin 33 pg (25-35) Red Cell Distribution Width 15.2 % (11.5-14.5) Platelet Count 176 x10^3/uL (140-400) Neutrophils (%) (Auto) 83 % (31-73) Lymphocytes (%) (Auto) 10 % (24-48) Monocytes (%) (Auto) 7 % (0-9) Eosinophils (%) (Auto) 0 % (0-3) Basophils (%) (Auto) 1 % (0-3) Neutrophils # (Auto) 18.7 x10^3/uL (1.8-7.7) Lymphocytes # (Auto) 2.2 x10^3/uL (1.0-4.8) Monocytes # (Auto) 1.6 x10^3/uL (0.0-1.1) Eosinophils # (Auto) 0.0 x10^3/uL (0.0-0.7) Basophils # (Auto) 0.1 x10^3/uL (0.0-0.2) Sodium Level 137 mmol/L (136-145) Potassium Level 3.3 mmol/L (3.5-5.1) Chloride Level 99 mmol/L (98-107) Carbon Dioxide Level 27 mmol/L (21-32) Anion Gap 11 (6-14) Blood Urea Nitrogen 52 mg/dL (8-26) Creatinine 1.6 mg/dL (0.7-1.3) Estimated GFR (Cockcroft-Gault) 48.6 BUN/Creatinine Ratio 33 (6-20) Glucose Level 137 mg/dL (70-99) Lactic Acid Level 3.7 mmol/L (0.4-2.0) 2.8 mmol/L (0.4-2.0) Calcium Level 6.5 mg/dL (8.5-10.1) Total Bilirubin 11.3 mg/dL (0.2-1.0) Aspartate Amino Transf (AST/SGOT) 560 U/L (15-37) Alanine Aminotransferase (ALT/SGPT) 181 U/L (16-63) Alkaline Phosphatase 133 U/L (46-116) Total Protein 5.5 g/dL (6.4-8.2) Albumin 1.5 g/dL (3.4-5.0) Albumin/Globulin Ratio 0.4 (1.0-1.7) Lipase 153 U/L (73-393) O2 Saturation 92 % (92-99) Arterial Blood pH 7.46 (7.35-7.45) Arterial Blood pCO2 at Patient Temp 38 mmHg (35-46) Arterial Blood pO2 at Patient Temp 65 mmHg (85-108) Arterial Blood HCO3 26 mmol/L (21-28) Arterial Blood Base Excess 2 mmol/L (-3-3) FiO2 70 Test 01/09/19 12:08 01/09/19 17:19 01/10/19 05:00 01/10/19 08:04 Glucose (Fingerstick) 133 mg/dL (70-99) 129 mg/dL (70-99) 109 mg/dL (70-99) White Blood Count 15.6 x10^3/uL (4.0-11.0) Red Blood Count 2.48 x10^6/uL (4.30-5.70) Hemoglobin 8.2 g/dL (13.0-17.5) Hematocrit 23.9 % (39.0-53.0) Mean Corpuscular Volume 96 fL (79-100) Mean Corpuscular Hemoglobin 33 pg (25-35) Mean Corpuscular Hemoglobin Concent 34 g/dL (31-37) Red Cell Distribution Width 15.2 % (11.5-14.5) Platelet Count 190 x10^3/uL (140-400) Neutrophils (%) (Auto) 76 % (31-73) Lymphocytes (%) (Auto) 13 % (24-48) Monocytes (%) (Auto) 10 % (0-9) Eosinophils (%) (Auto) 1 % (0-3) Basophils (%) (Auto) 1 % (0-3) Neutrophils # (Auto) 11.8 x10^3/uL (1.8-7.7) Lymphocytes # (Auto) 2.1 x10^3/uL (1.0-4.8) Monocytes # (Auto) 1.5 x10^3/uL (0.0-1.1) Eosinophils # (Auto) 0.1 x10^3/uL (0.0-0.7) Basophils # (Auto) 0.1 x10^3/uL (0.0-0.2) Sodium Level 142 mmol/L (136-145) Potassium Level 3.0 mmol/L (3.5-5.1) Chloride Level 104 mmol/L (98-107) Carbon Dioxide Level 29 mmol/L (21-32) Anion Gap 9 (6-14) Blood Urea Nitrogen 49 mg/dL (8-26) Creatinine 1.3 mg/dL (0.7-1.3) Estimated GFR (Cockcroft-Gault) 61.8 BUN/Creatinine Ratio 38 (6-20) Glucose Level 118 mg/dL (70-99) Calcium Level 6.8 mg/dL (8.5-10.1) Total Bilirubin 10.4 mg/dL (0.2-1.0) Aspartate Amino Transf (AST/SGOT) 421 U/L (15-37) Alanine Aminotransferase (ALT/SGPT) 168 U/L (16-63) Alkaline Phosphatase 130 U/L (46-116) Ammonia 64 mcmol/L (11-34) Total Protein 6.0 g/dL (6.4-8.2) Albumin 1.7 g/dL (3.4-5.0) Albumin/Globulin Ratio 0.4 (1.0-1.7) Procalcitonin 4.70 ng/mL (0.00-0.10) Laboratory Tests Test 01/09/19 12:08 01/09/19 17:19 01/10/19 05:00 01/10/19 08:04 Glucose (Fingerstick) 133 mg/dL (70-99) 129 mg/dL (70-99) 109 mg/dL (70-99) White Blood Count 15.6 x10^3/uL (4.0-11.0) Red Blood Count 2.48 x10^6/uL (4.30-5.70) Hemoglobin 8.2 g/dL (13.0-17.5) Hematocrit 23.9 % (39.0-53.0) Mean Corpuscular Volume 96 fL (79-100) Mean Corpuscular Hemoglobin 33 pg (25-35) Mean Corpuscular Hemoglobin Concent 34 g/dL (31-37) Red Cell Distribution Width 15.2 % (11.5-14.5) Platelet Count 190 x10^3/uL (140-400) Neutrophils (%) (Auto) 76 % (31-73) Lymphocytes (%) (Auto) 13 % (24-48) Monocytes (%) (Auto) 10 % (0-9) Eosinophils (%) (Auto) 1 % (0-3) Basophils (%) (Auto) 1 % (0-3) Neutrophils # (Auto) 11.8 x10^3/uL (1.8-7.7) Lymphocytes # (Auto) 2.1 x10^3/uL (1.0-4.8) Monocytes # (Auto) 1.5 x10^3/uL (0.0-1.1) Eosinophils # (Auto) 0.1 x10^3/uL (0.0-0.7) Basophils # (Auto) 0.1 x10^3/uL (0.0-0.2) Sodium Level 142 mmol/L (136-145) Potassium Level 3.0 mmol/L (3.5-5.1) Chloride Level 104 mmol/L (98-107) Carbon Dioxide Level 29 mmol/L (21-32) Anion Gap 9 (6-14) Blood Urea Nitrogen 49 mg/dL (8-26) Creatinine 1.3 mg/dL (0.7-1.3) Estimated GFR (Cockcroft-Gault) 61.8 BUN/Creatinine Ratio 38 (6-20) Glucose Level 118 mg/dL (70-99) Calcium Level 6.8 mg/dL (8.5-10.1) Total Bilirubin 10.4 mg/dL (0.2-1.0) Aspartate Amino Transf (AST/SGOT) 421 U/L (15-37) Alanine Aminotransferase (ALT/SGPT) 168 U/L (16-63) Alkaline Phosphatase 130 U/L (46-116) Ammonia 64 mcmol/L (11-34) Total Protein 6.0 g/dL (6.4-8.2) Albumin 1.7 g/dL (3.4-5.0) Albumin/Globulin Ratio 0.4 (1.0-1.7) Procalcitonin 4.70 ng/mL (0.00-0.10) Microbiology 01/08/19 Blood Culture - Preliminary, Resulted NO GROWTH AFTER 1 DAY 01/08/19 Urine Culture - Final, Complete 01/08/19 Urine Culture Result 1 (ELMA) - Final, Complete Medications Current Medications Sodium Chloride 1,000 ml @ 1,000 mls/hr 1X ONCE IV Last administered on 01/07/19at 19:27; Start 01/07/19 at 19:30; Stop 01/07/19 at 20:29; Status DC Ondansetron HCl (Zofran) 4 mg 1X ONCE IV Last administered on 01/07/19at 19:28; Start 01/07/19 at 19:30; Stop 01/07/19 at 19:31; Status DC Pantoprazole Sodium (PROTONIX VIAL for IV PUSH) 80 mg 1X ONCE IVP Last administered on 01/07/19at 19:50; Start 01/07/19 at 20:00; Stop 01/07/19 at 20:01; Status DC Pantoprazole Sodium 80 mg/ Sodium Chloride 100 ml @ 10 mls/hr 1X ONCE IV Last administered on 01/07/19at 20:00; Start 01/07/19 at 20:00; Stop 01/08/19 at 05:59; Status DC Sodium Chloride 1,000 ml @ 1,000 mls/hr 1X ONCE IV Last administered on 01/07/19at 22:12; Start 01/07/19 at 21:00; Stop 01/07/19 at 21:59; Status DC Sodium Chloride 1,000 ml @ 1,000 mls/hr 1X ONCE IV Last administered on 01/07/19at 20:40; Start 01/07/19 at 20:45; Stop 01/07/19 at 21:44; Status DC Potassium Chloride/Sodium Chloride 1,000 ml @ 75 mls/hr 1X ONCE IV Last administered on 01/07/19at 21:16; Start 01/07/19 at 21:30; Stop 01/08/19 at 10:49; Status DC Vancomycin HCl (Vanco Per Pharmacy) 1 each PRN DAILY PRN MC SEE COMMENTS Last administered on 01/08/19at 00:43; Start 01/07/19 at 21:00; Stop 01/08/19 at 06:39; Status DC Piperacillin Sod/ Tazobactam Sod (Zosyn Per Pharmacy) 1 each PRN DAILY PRN MC SEE COMMENTS; Start 01/07/19 at 21:00 Piperacillin Sod/ Tazobactam Sod 3.375 gm/Sodium Chloride 50 ml @ 100 mls/hr Q6HRS IV Last administered on 01/10/19at 05:31; Start 01/07/19 at 22:00 Vancomycin HCl 2 gm/Sodium Chloride 500 ml @ 250 mls/hr 1X ONCE IV Last administered on 01/07/19at 22:11; Start 01/07/19 at 22:00; Stop 01/07/19 at 23:59; Status DC Lorazepam (Ativan Inj) 1 mg 1X ONCE IV Last administered on 01/07/19at 23:22; Start 01/07/19 at 23:30; Stop 01/07/19 at 23:31; Status DC Lorazepam (Ativan Inj) 2 mg STK-MED ONCE .ROUTE ; Start 01/07/19 at 23:20; Stop 01/07/19 at 23:21; Status DC Vancomycin HCl 1.5 gm/Sodium Chloride 500 ml @ 250 mls/hr Q12H IV ; Start 01/08/19 at 10:00; Stop 01/08/19 at 06:39; Status DC Vancomycin HCl (Vancomycin Trough Level) 1 each 1X ONCE MC ; Start 01/09/19 at 09:30; Stop 01/09/19 at 09:31; Status Cancel Ondansetron HCl (Zofran) 4 mg PRN Q6HRS PRN IVP NAUSEA/VOMITING; Start 01/08 at 04:00; Status Cancel Pantoprazole Sodium 80 mg/ Sodium Chloride 100 ml @ 10 mls/hr Q10H IV Last administered on 01/09/19at 02:00; Start 01/08/19 at 06:00; Stop 01/09/19 at 11:00; Status DC Multivitamins 10 ml/Thiamine HCl 100 mg/Folic Acid 1 mg/Sodium Chloride 1,011.2 ml @ 100 mls/ hr DAILY IV Last administered on 01/10/19at 08:12; Start 01/08/19 at 09:00; Stop 01/12/19 at 19:07 Lorazepam (Ativan Inj) 2 mg PRN Q1HR PRN IV For CIWA 8-14 Last administered on 01/09/19at 22:24; Start 01/08/19 at 07:15 Lorazepam (Ativan Inj) 4 mg PRN Q1HR PRN IV For CIWA 15 or greater; Start 01/08/19 at 07:15 Haloperidol Lactate (Haldol Inj) 5 mg PRN Q4HRS PRN IVP Hallucinatns,Confusn,Delirium; Start 01/08/19 at 07:15 Diphenhydramine HCl (Benadryl) 25 mg PRN Q15MIN PRN IVP EPS symptoms 2'Haldol admin; Start 01/08/19 at 07:15 Clonidine HCl (Catapres) 0.1 mg PRN Q1HR PRN PO SBP > 180 or DBP > 100, MRX3; Start 01/08/19 at 07:15 Sodium Bicarbonate (Sodium Bicarb Adult 8.4% Syr) 50 meq 1X ONCE IV Last admin istered on 01/08/19at 08:04; Start 01/08/19 at 08:00; Stop 01/08/19 at 08:01; Status DC Propofol 100 ml @ As Directed STK-MED ONCE IV ; Start 01/08/19 at 08:19; Stop 01/08/19 at 08:19; Status DC Succinylcholine Chloride (Anectine) 200 mg STK-MED ONCE .ROUTE ; Start 01/08/19 at 08:19; Stop 01/08/19 at 08:19; Status DC Propofol 100 ml @ As Directed STK-MED ONCE IV ; Start 01/08/19 at 08:29; Stop 01/08/19 at 08:30; Status DC Fentanyl Citrate 30 ml @ 0 mls/hr CONT PRN PRN IV PER PROTOCOL Last adm inistered on 01/10/19at 03:43; Start 01/08/19 at 09:00 Naloxone HCl (Narcan) 0.4 mg PRN Q2MIN PRN IV SEE INSTRUCTIONS; Start 01/08/19 at 09:00 Sodium Chloride 1,000 ml @ 25 mls/hr Q24H IV Last administered on 01/10/19at 08:00; Start 01/08/19 at 08:54 Fentanyl Citrate (Fentanyl 2ml Vial) 100 mcg STK-MED ONCE .ROUTE ; Start 01/08/19 at 08:55; Stop 01/08/19 at 08:55; Status DC Octreotide Acetate 500 mcg/ Sodium Chloride 101 ml @ 0 mls/hr CONT PRN IV SEE I/O RECORD Last administered on 01/08/19at 13:56; Start 01/08/19 at 09:00; Stop 01/08/19 at 16:55; Status DC Phytonadione (Vitamin K Ampule) 10 mg 1X ONCE SQ Last administered on 01/08/19at 09:56; Start 01/08/19 at 09:15; Stop 01/08/19 at 09:16; Status DC Metoclopramide HCl (Reglan Vial) 10 mg 1X ONCE IVP Last administered on 01/08/19at 14:36; Start 01/08/19 at 11:00; Stop 01/08/19 at 11:01; Status DC Midazolam HCl (Versed) 5 mg STK-MED ONCE .ROUTE ; Start 01/08/19 at 09:00; Stop 01/08/19 at 09:01; Status DC Acetaminophen (Tylenol) 500 mg PRN Q6HRS PRN PO MILD PAIN / TEMP; Start 01/08/19 at 09:15 Tramadol HCl (Ultram) 50 mg PRN Q6HRS PRN PO PAIN MODERATE; Start 01/08/19 at 09:15 Morphine Sulfate (Morphine Sulfate) 2 mg PRN Q2HR PRN IV PAIN; Start 01/08/19 at 09:15 Ondansetron HCl (Zofran) 4 mg PRN Q6HRS PRN IVP NAUSEA/VOMITING; Start 01/08/19 at 09:15 Fentanyl Citrate (Fentanyl 2ml Vial) 100 mcg 1X ONCE IVP Last administered on 01/08/19at 09:42; Start 01/08/19 at 09:45; Stop 01/08/19 at 09:46; Status DC Midazolam HCl (Versed) 5 mg 1X ONCE IV Last administered on 01/08/19 09:41; Start 01/08/19 at 09:45; Stop 01/08/19 at 09:46; Status DC Succinylcholine Chloride (Anectine) 200 mg 1X ONCE IV Last administered on 01/08/19at 09:41; Start 01/08/19 at 09:45; Stop 01/08/19 at 09:46; Status DC Propofol 100 ml @ 1.524 mls/ hr CONT PRN IV SEE I/O RECORD Last administered on 01/10/19at 03:11; Start 01/08/19 at 09:45 Midazolam HCl 100 ml @ 5 mls/hr CONT PRN IV SEE I/O RECORD Last administered on 01/09/19at 23:38; Start 01/08/19 at 11:15 Vecuronium [place] (Norcuron Bolus) 6 mg PRN Q4HRS PRN IV VENT ASYNCHRONY Last administered on 01/08/19at 16:24; Start 01/08/19 at 12:00 Benzocaine (Hurricaine One) 2 spray STK-MED ONCE .ROUTE ; Start 01/07/19 at 12:00; Stop 01/08/19 at 14:20; Status DC Lidocaine HCl (Xylocaine 2% Topical 5gm Tube) 5 amanda STK-MED ONCE TP ; Start 01/07/19 at 12:00; Stop 01/08/19 at 14:20; Status DC Lactobacillus Rhamnosus (Culturelle) 1 cap BID PO ; Start 01/08/19 at 21:00; Stop 01/09/19 at 09:29; Status DC Acetaminophen (Tylenol Supp) 650 mg PRN Q6HRS PRN AL MILD PAIN / TEMP Last administered on 01/09/19at 23:44; Start 01/08/19 at 18:15 Norepinephrine Bitartrate 250 ml @ 18.938 mls/ hr CONT PRN IV SEE I/O RECORD Last administered on 01/09/19at 01:00; Start 01/09/19 at 01:45 Potassium Chloride (Klor-Con) 40 meq 1X ONCE PO Last administered on 01/09/19at 11:34; Start 01/09/19 at 09:45; Stop 01/09/19 at 09:46; Status DC Metoclopramide HCl (Reglan Vial) 10 mg PRN Q6HRS PRN IVP NAUSEA/VOMITING; S tart 01/09/19 at 10:15 Albumin Human 100 ml @ 100 mls/hr 1X ONCE IV Last administered on 01/09/19at 10:49; Start 01/09/19 at 10:15; Stop 01/09/19 at 11:14; Status DC Lactulose (LACTULOSE 300ML for RECTAL) 200 gm Q6HRS AL ; Start 01/09/19 at 12:00; Stop 01/09/19 at 11:04; Status DC Insulin Human Lispro (HumaLOG) 0-9 UNITS TIDWMEALS SQ ; Start 01/09/19 at 12:00 Dextrose (Dextrose 50%-Water Syringe) 12.5 gm PRN Q15MIN PRN IV SEE COMMENTS; Start 01/09/19 at 10:30 Fentanyl Citrate (Fentanyl 600 Mcg/30 ml BALL THREAD MACHINE TENDER) 600 mcg STK-MED ONCE IV ; Start 01/08/19 at 15:25; Stop 01/09/19 at 10:27; Status DC Pantoprazole Sodium (PROTONIX VIAL for IV PUSH) 40 mg DAILYAC IVP Last administered on 01/10/19at 08:00; Start 01/10/19 at 07:30 Lactulose (Lactulose) 20 gm DAILY PO Last administered on 01/10/19at 07:59; Start 01/09/19 at 11:30 Potassium Bicarbonate (Potassium Effervescent Tablet) 40 meq BIDWMEALS FT ; Start 01/10/19 at 09:00 Vitals/I & O Vital Sign - Last 24 Hours 01/09/19 01/09/19 01/09/19 01/09/19 09:15 10:00 11:00 11:14 Pulse 103 98 Resp 25 21 B/P (MAP) 106/54 (71) 100/46 (64) Pulse Ox 97 97 98 99 O2 Delivery Ventilator Ventilator Ventilator Ventilator 01/09/19 01/09/19 01/09/19 01/09/19 11:30 12:00 12:00 13:00 Temp 98.8 98.8 Pulse 99 92 Resp 24 18 B/P (MAP) 110/53 (72) 105/53 (70) Pulse Ox 99 96 98 O2 Delivery Ventilator Ventilator Mechanical Ventilator Ventilator 01/09/19 01/09/19 01/09/19 01/09/19 14:00 14:34 14:41 15:00 Pulse 92 92 Resp 18 18 22 B/P (MAP) 112/56 (74) 119/60 (79) Pulse Ox 99 96 98 97 O2 Delivery Ventilator Ventilator Ventilator Ventilator 01/09/19 01/09/19 01/09/19 01/09/19 15:25 16:00 16:00 17:08 Temp 98.5 98.5 Pulse 97 98 Resp B/P (MAP) 112/59 (76) 135/66 (89) Pulse Ox 98 99 99 O2 Delivery Ventilator Ventilator Mechanical Ventilator Ventilator 01/09/19 01/09/19 01/09/19 01/09/19 17:09 18:11 19:00 19:45 Temp 98.8 98.8 Pulse 98 Resp B/P (MAP) 119/62 (81) Pulse Ox 96 99 O2 Delivery Mechanical Ventilator Ventilator Ventilator Mechanical Ventilator 01/09/19 01/09/19 01/09/19 01/09/19 20:00 20:13 21:00 22:00 Pulse 103 111 118 Resp 28 B/P (MAP) 133/62 (85) 161/75 (103) 156/82 (106) Pulse Ox 93 94 92 93 O2 Delivery Ventilator Ventilator Ventilator Ventilator 01/09/19 01/09/19 01/09/19 01/09/19 22:08 22:38 23:00 23:57 Temp 101.6 101.6 Pulse 114 Resp B/P (MAP) 137/66 (89) Pulse Ox 92 92 92 92 O2 Delivery Ventilator Ventilator O2 Flow Rate 2.0 2.0 01/10/19 01/10/19 01/10/19 01/10/19 00:00 00:05 01:00 01:18 Pulse 112 109 Resp 28 B/P (MAP) 129/62 (84) 131/62 (85) Pulse Ox 92 93 92 O2 Delivery Ventilator Mechanical Ventilator Ventilator Ventilator 01/10/19 01/10/19 01/10/19 01/10/19 02:00 03:00 03:43 03:46 Pulse 106 104 Resp B/P (MAP) 98/47 (64) 97/49 (65) Pulse Ox 93 92 92 O2 Delivery Ventilator Ventilator Mechanical Ventilator O2 Flow Rate 2.0 01/10/19 01/10/19 01/10/19 01/10/19 03:52 04:00 04:13 05:00 Temp 100.0 100.0 Pulse 103 104 Resp 24 28 B/P (MAP) 100/47 (64) 101/57 (72) Pulse Ox 92 92 92 92 O2 Delivery Ventilator Ventilator Ventilator O2 Flow Rate 2.0 01/10/19 01/10/19 01/10/19 01/10/19 05:42 06:00 07:00 08:00 Pulse 100 102 Resp 28 22 B/P (MAP) 100/51 (67) 106/67 (80) Pulse Ox 92 92 92 O2 Delivery Ventilator Ventilator Ventilator Mechanical Ventilator 01/10/19 08:56 Pulse Ox 89 O2 Delivery Ventilator Intake and Output 01/09/19 01/09/19 01/10/19 15:00 23:00 07:00 Intake Total 150 ml 2637 ml 1602 ml Output Total 925 ml 740 ml 655 ml Balance -775 ml 1897 ml 947 ml MAIK GUNN MD Jan 10, 2019 09:10
[2019-01-10] MEDS: POTASSIUM BICARB 20 MEQ EFFERVESCENT TABLET. FT SCH ×2 (09:33→17:49)
[2019-01-10 10:04] LABS: FIO2 ABG 70; PO2 ABG 43 mmHg (85-108)
[2019-01-10] MEDS: MIDAZOLAM 100mg/100ml NS BAG 100 ML IV PRN ×2 (10:08→22:10)
[2019-01-10] MEDS: VECURONIUM BOLUS 10 MG VIAL. IV PRN ×3 (10:30→15:59)
[2019-01-10 14:09] LABS: HCV ULTRA QUANT PCR HCV Not Detected IU/mL (.)
--- NOTE | 2019-01-10 14:45 | PDOC ---
SUBJECTIVE ROS Intubated, sedated OBJECTIVE Vital Signs Vital Signs Date Time Temp Pulse Resp B/P (MAP) Pulse Ox O2 Delivery O2 Flow Rate FiO2 01/10/19 14:00 100 20 116/55 (75) 94 Ventilator 01/10/19 12:00 99.2 99.2 01/10/19 04:13 2.0 I & 0 Intake and Output 01/10/19 07:00 Intake Total 4389 ml Output Total 2320 ml Balance 2069 ml IV Total 2752 ml Tube Feeding 1037 ml Other 600 ml Output Urine Total 2320 ml PHYSICAL EXAM Physical Exam GEN: Intubated on MV HEEN: Intubated NECK: supple CVS: S1S2 RESP: Intubated, decreased at bases, GI: Distended : Pollard+ Ext: No LE edema SKIN: left lower extremity with large ecchymosis from his thigh down to his lower third of the tibial area. Neuro- Intubated and sedated Skin No rash DIAGNOSIS/ASSESSMENT Assessment & Plan DOMONIQUE - pre-renal leading to ATN 2/2 Hypotension /Lactic acidosis/ Improved with IVF , Stable UOP adequate Ct scan- Unremarkable Kidneys Supportive care, avoid nephrotoxins, Monitor Metabolic acidosis - 2/2 lactic acidosis Resolved Acute resp failure, - Intubated on MV Hematemesis- Heavy drinker, s/p egd 01/08- Reflux esophagitis,? 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 Anemia- - acute , s/p PRBC Stable Hypotension - On pressors Coagulopathy - s/p Vit K , abd FFP Hepatic Encephalopathy Transaminitis - Bili elevated as well Dw RN, no family at bedside COMMENT/RELEVANT DATA Meds Current Medications Medications (Trade) Dose Ordered Sig/Quyen Start Time Stop Time Status Last Admin Dose Admin Acetaminophen (Tylenol Supp) 650 mg PRN Q6HRS PRN 01/08/19 18:15 01/09/19 23:44 650 MG Acetaminophen (Tylenol) 500 mg PRN Q6HRS PRN 01/08/19 09:15 Albumin Human 100 ml @ 100 mls/hr 1X ONCE 01/09/19 10:15 01/09/19 11:14 DC 01/09/19 10:49 100 MLS/HR Benzocaine (Hurricaine One) 2 spray STK-MED ONCE 01/07/19 12:00 01/08/19 14:20 DC Clonidine HCl (Catapres) 0.1 mg PRN Q1HR PRN 01/08/19 07:15 Dextrose (Dextrose 50%-Water Syringe) 12.5 gm PRN Q15MIN PRN 01/09/19 10:30 Diphenhydramine HCl (Benadryl) 25 mg PRN Q15MIN PRN 01/08/19 07:15 Fentanyl Citrate (Fentanyl 2ml Vial) 100 mcg 1X ONCE 01/08/19 09:45 01/08/19 09:46 DC 01/08/19 09:42 100 MCG Fentanyl Citrate (Fentanyl 600 Mcg/30 ml BRIDAL CONSULTANT) 600 mcg STK-MED ONCE 01/08/19 15:25 01/09/19 10:27 DC Haloperidol Lactate (Haldol Inj) 5 mg PRN Q4HRS PRN 01/08/19 07:15 Insulin Human Lispro (HumaLOG) 0-9 UNITS TIDWMEALS 01/09/19 12:00 Lactobacillus Rhamnosus (Culturelle) 1 cap BID 01/08/19 21:00 01/09/19 09:29 DC Lactulose (LACTULOSE 300ML for RECTAL) 200 gm Q6HRS 01/09/19 12:00 01/09/19 11:04 DC Lactulose (Lactulose) 20 gm DAILY 01/09/19 11:30 01/10/19 07:59 20 GM Lidocaine HCl (Xylocaine 2% Topical 5gm Tube) 5 amanda STK-MED ONCE 01/07/19 12:00 01/08/19 14:20 DC Lorazepam (Ativan Inj) 4 mg PRN Q1HR PRN 01/08/19 07:15 Metoclopramide HCl (Reglan Vial) 10 mg PRN Q6HRS PRN 01/09/19 10:15 Midazolam HCl 100 ml @ 5 mls/hr CONT PRN 01/08/19 11:15 01/10/19 10:08 12 MLS/HR Midazolam HCl (Versed) 5 mg 1X ONCE 01/08/19 09:45 01/08/19 09:46 DC 01/08/19 09:41 5 MG Morphine Sulfate (Morphine Sulfate) 2 mg PRN Q2HR PRN 01/08/19 09:15 Multivitamins 10 ml/Thiamine HCl 100 mg/Folic Acid 1 mg/Sodium Chloride 1,011.2 ml @ 100 mls/ hr DAILY 01/08/19 09:00 01/12/19 19:07 01/10/19 08:12 100 MLS/HR Naloxone HCl (Narcan) 0.4 mg PRN Q2MIN PRN 01/08/19 09:00 Norepinephrine Bitartrate 250 ml @ 18.938 mls/ hr CONT PRN 01/09/19 01:45 01/09/19 01:00 18.938 MLS/HR Octreotide Acetate 500 mcg/ Sodium Chloride 101 ml @ 0 mls/hr CONT PRN 01/08/19 09:00 01/08/19 16:55 DC 01/08/19 13:56 10.1 MLS/HR Ondansetron HCl (Zofran) 4 mg PRN Q6HRS PRN 01/08/19 09:15 Pantoprazole Sodium (PROTONIX VIAL for IV PUSH) 40 mg DAILYAC 01/10/19 07:30 01/10/19 08:00 40 MG Pantoprazole Sodium 80 mg/ Sodium Chloride 100 ml @ 10 mls/hr Q10H 01/08/19 06:00 01/09/19 11:00 DC 01/09/19 02:00 10 MLS/HR Phytonadione (Vitamin K Ampule) 10 mg 1X ONCE 01/08/19 09:15 01/08/19 09:16 DC 01/08/19 09:56 10 MG Piperacillin Sod/ Tazobactam Sod (Zosyn Per Pharmacy) 1 each PRN DAILY PRN 01/07/19 21:00 Piperacillin Sod/ Tazobactam Sod 3.375 gm/Sodium Chloride 50 ml @ 100 mls/hr Q6HRS 01/07/19 22:00 01/10/19 12:03 100 MLS/HR Potassium Bicarbonate (Potassium Effervescent Tablet) 40 meq BIDWMEALS 01/10/19 09:00 01/10/19 09:33 40 MEQ Potassium Chloride/Sodium Chloride 1,000 ml @ 75 mls/hr 1X ONCE 01/07/19 21:30 01/08/19 10:49 DC 01/07/19 21:16 75 MLS/HR Potassium Chloride (Klor-Con) 40 meq 1X ONCE 01/09/19 09:45 01/09/19 09:46 DC 01/09/19 11:34 40 MEQ Propofol 100 ml @ 1.524 mls/ hr CONT PRN 01/08/19 09:45 01/10/19 11:16 15.245 MLS/HR Sodium Bicarbonate (Sodium Bicarb Adult 8.4% Syr) 50 meq 1X ONCE 01/08/19 08:00 01/08/19 08:01 DC 01/08/19 08:04 50 MEQ Sodium Chloride 1,000 ml @ 25 mls/hr Q24H 01/08/19 08:54 01/10/19 08:00 25 MLS/HR Succinylcholine Chloride (Anectine) 200 mg 1X ONCE 01/08/19 09:45 01/08/19 09:46 DC 01/08/19 09:41 200 MG Tramadol HCl (Ultram) 50 mg PRN Q6HRS PRN 01/08/19 09:15 Vancomycin HCl (Vanco Per Pharmacy) 1 each PRN DAILY PRN 01/07/19 21:00 01/08/19 06:39 DC 01/08/19 00:43 1 EACH Vancomycin HCl (Vancomycin Trough Level) 1 each 1X ONCE 01/09/19 09:30 01/09/19 09:31 Cancel Vancomycin HCl 1.5 gm/Sodium Chloride 500 ml @ 250 mls/hr Q12H 01/08/19 10:00 01/08/19 06:39 DC Vancomycin HCl 2 gm/Sodium Chloride 500 ml @ 250 mls/hr 1X ONCE 01/07/19 22:00 01/07/19 23:59 DC 01/07/19 22:11 250 MLS/HR Vecuronium [place] (Norcuron Bolus) 6 mg PRN Q4HRS PRN 01/08/19 12:00 01/10/19 11:57 6 MG Lab Laboratory Tests Test 01/09/19 17:19 01/10/19 05:00 01/10/19 08:00 01/10/19 08:04 Glucose (Fingerstick) 129 mg/dL (70-99) 109 mg/dL (70-99) White Blood Count 15.6 x10^3/uL (4.0-11.0) Red Blood Count 2.48 x10^6/uL (4.30-5.70) Hemoglobin 8.2 g/dL (13.0-17.5) Hematocrit 23.9 % (39.0-53.0) Mean Corpuscular Volume 96 fL (79-100) Mean Corpuscular Hemoglobin 33 pg (25-35) Mean Corpuscular Hemoglobin Concent 34 g/dL (31-37) Red Cell Distribution Width 15.2 % (11.5-14.5) Platelet Count 190 x10^3/uL (140-400) Neutrophils (%) (Auto) 76 % (31-73) Lymphocytes (%) (Auto) 13 % (24-48) Monocytes (%) (Auto) 10 % (0-9) Eosinophils (%) (Auto) 1 % (0-3) Basophils (%) (Auto) 1 % (0-3) Neutrophils # (Auto) 11.8 x10^3/uL (1.8-7.7) Lymphocytes # (Auto) 2.1 x10^3/uL (1.0-4.8) Monocytes # (Auto) 1.5 x10^3/uL (0.0-1.1) Eosinophils # (Auto) 0.1 x10^3/uL (0.0-0.7) Basophils # (Auto) 0.1 x10^3/uL (0.0-0.2) Sodium Level 142 mmol/L (136-145) Potassium Level 3.0 mmol/L (3.5-5.1) Chloride Level 104 mmol/L (98-107) Carbon Dioxide Level 29 mmol/L (21-32) Anion Gap 9 (6-14) Blood Urea Nitrogen 49 mg/dL (8-26) Creatinine 1.3 mg/dL (0.7-1.3) Estimated GFR (Cockcroft-Gault) 61.8 BUN/Creatinine Ratio 38 (6-20) Glucose Level 118 mg/dL (70-99) Calcium Level 6.8 mg/dL (8.5-10.1) Total Bilirubin 10.4 mg/dL (0.2-1.0) Aspartate Amino Transf (AST/SGOT) 421 U/L (15-37) Alanine Aminotransferase (ALT/SGPT) 168 U/L (16-63) Alkaline Phosphatase 130 U/L (46-116) Ammonia 64 mcmol/L (11-34) Total Protein 6.0 g/dL (6.4-8.2) Albumin 1.7 g/dL (3.4-5.0) Albumin/Globulin Ratio 0.4 (1.0-1.7) Procalcitonin 4.70 ng/mL (0.00-0.10) O2 Saturation 80 % (92-99) Arterial Blood pH 7.48 (7.35-7.45) Arterial Blood pCO2 at Patient Temp 38 mmHg (35-46) Arterial Blood pO2 at Patient Temp 43 mmHg (85-108) Arterial Blood HCO3 28 mmol/L (21-28) Arterial Blood Base Excess 4 mmol/L (-3-3) FiO2 70 Results All relevant outside records, renal labs, imaging studies, telemetry/EKG's were reviewed. GIANNI HAY MD Jan 10, 2019 14:45
--- NOTE | 2019-01-10 16:37 | PDOC2 ---
CARDIOLOGY CONSULT NOTE CHEIF COMPLAINT: Confusion HPI: Unfortunate 38-year-old man who appears to been an alcoholic presented to the hospital with mental status changes and multiorgan failure. He has been intubated for respiratory failure. Cardiology asked to evaluate him for possible cardiac source of hypoxia No preceding cardiac symptoms based on chart review. The patient is currently intubated and nonresponsive. No family at bedside. History obtained from chart review. PMHX: Alcohol abuse SOCHX: He is . FAMHX: Noncontributory CURRENT MEDS: Current Medications Medications (Trade) Dose Ordered Sig/Quyen Route PRN Reason Start Time Stop Time Status Last Admin Dose Admin Pantoprazole Sodium (PROTONIX VIAL for IV PUSH) 40 mg DAILYAC IVP 01/10/19 07:30 01/10/19 08:00 Potassium Bicarbonate (Potassium Effervescent Tablet) 40 meq BIDWMEALS FT 01/10/19 09:00 01/10/19 09:33 ALLERGIES: Allergies Coded Allergies Type Severity Reaction Last Updated Verified No Known Drug Allergies 01/07/19 No ROS: Unable to be obtained PHYSICAL EXAM: Vital Signs/I&O: Vital Signs Date Time Temp Pulse Resp B/P (MAP) Pulse Ox O2 Delivery O2 Flow Rate FiO2 01/10/19 16:02 18 93 Ventilator 01/10/19 15:00 100 111/59 (76) 01/10/19 12:00 99.2 99.2 01/10/19 04:13 2.0 I & O 01/09/19 01/09/19 01/10/19 15:00 23:00 07:00 Intake Total 150 ml 2637 ml 1602 ml Output Total 925 ml 740 ml 655 ml Balance -775 ml 1897 ml 947 ml Physical Exam: He is sedated and nonresponsive Cardiac exam is unremarkable Lungs are notable for bilateral rhonchi Abdomen is obese nontender No significant lower extremity edema DIAGNOSTIC TESTING: Initial troponin negative, BNP is only minimally elevated Severe transaminitis and anemia noted EKG unremarkable Chest x-ray reveals bilateral infiltrates probably developing ARDS Lab Laboratory Tests Test 01/09/19 17:19 01/10/19 05:00 01/10/19 08:00 01/10/19 08:04 Glucose (Fingerstick) 129 mg/dL (70-99) H 109 mg/dL (70-99) H White Blood Count 15.6 x10^3/uL (4.0-11.0) H Red Blood Count 2.48 x10^6/uL (4.30-5.70) L Hemoglobin 8.2 g/dL (13.0-17.5) L Hematocrit 23.9 % (39.0-53.0) L Mean Corpuscular Volume 96 fL (79-100) Mean Corpuscular Hemoglobin 33 pg (25-35) Mean Corpuscular Hemoglobin Concent 34 g/dL (31-37) Red Cell Distribution Width 15.2 % (11.5-14.5) H Platelet Count 190 x10^3/uL (140-400) Neutrophils (%) (Auto) 76 % (31-73) H Lymphocytes (%) (Auto) 13 % (24-48) L Monocytes (%) (Auto) 10 % (0-9) H Eosinophils (%) (Auto) 1 % (0-3) Basophils (%) (Auto) 1 % (0-3) Neutrophils # (Auto) 11.8 x10^3/uL (1.8-7.7) H Lymphocytes # (Auto) 2.1 x10^3/uL (1.0-4.8) Monocytes # (Auto) 1.5 x10^3/uL (0.0-1.1) H Eosinophils # (Auto) 0.1 x10^3/uL (0.0-0.7) Basophils # (Auto) 0.1 x10^3/uL (0.0-0.2) Sodium Level 142 mmol/L (136-145) Potassium Level 3.0 mmol/L (3.5-5.1) L Chloride Level 104 mmol/L (98-107) Carbon Dioxide Level 29 mmol/L (21-32) Anion Gap 9 (6-14) Blood Urea Nitrogen 49 mg/dL (8-26) H Creatinine 1.3 mg/dL (0.7-1.3) Estimated GFR (Cockcroft-Gault) 61.8 BUN/Creatinine Ratio 38 (6-20) H Glucose Level 118 mg/dL (70-99) H Calcium Level 6.8 mg/dL (8.5-10.1) L Total Bilirubin 10.4 mg/dL (0.2-1.0) H Aspartate Amino Transf (AST/SGOT) 421 U/L (15-37) H Alkaline Phosphatase 130 U/L (46-116) H Ammonia 64 mcmol/L (11-34) H Total Protein 6.0 g/dL (6.4-8.2) L Albumin 1.7 g/dL (3.4-5.0) L Albumin/Globulin Ratio 0.4 (1.0-1.7) L Procalcitonin 4.70 ng/mL (0.00-0.10) H O2 Saturation 80 % (92-99) L Arterial Blood pH 7.48 (7.35-7.45) H Arterial Blood pCO2 at Patient Temp 38 mmHg (35-46) Arterial Blood pO2 at Patient Temp 43 mmHg (85-108) *L Arterial Blood HCO3 28 mmol/L (21-28) Arterial Blood Base Excess 4 mmol/L (-3-3) H FiO2 70 Laboratory Tests 01/10/19 05:00 ASSESSMENT: 1. Worsening hypoxia likely unrelated to cardiac issues 2. Multiorgan failure PLAN: 1. Continue supportive care. Again, it is possible that he might have cardiomyopathy but based on his presentation I do not suspect that his worsening hypoxia is related to any significant cardiac failure. Thank you for this consultation. We will await the echo results. JUAN J CARRASQUILLO MD Jan 10, 2019 16:37
[2019-01-11] VITALS (24 sets, daily range): BP systolic 92–112; BP diastolic 43–60
[2019-01-11] MEDS: PIPERACILLIN/TAZOBACTAM 3.375 GM in IV NORMAL SALINE 50ML 50 ML IV SCH ×4 (00:27→17:42)
[2019-01-11 05:45] LABS: CALCIUM 6.9 mg/dL (8.5-10.1); GFR 83.6
[2019-01-11 05:57] LABS: POTASSIUM 4.5 mmol/L (3.5-5.1)
[2019-01-11] MEDS: MIDAZOLAM 100mg/100ml NS BAG 100 ML IV PRN ×2 (06:08→14:53)
--- NOTE | 2019-01-11 06:15 | PDOC ---
PULMONARY PROGRESS NOTES Subjective SEDATED ON AC MODE 10 PEEP 70 %, on propofol, versed, fentanyl, mod ett secretion, Tmax 101 Vitals Vital Signs Date Time Temp Pulse Resp B/P (MAP) Pulse Ox O2 Delivery O2 Flow Rate FiO2 01/11/19 05:00 107 18 107/54 (71) 93 Ventilator 01/11/19 04:00 100.1 100.1 Comments ros as mentioned as above discussed w rn other sys otherwise neg on vent sedated HEENT: Other (nc at perrl nose clear orally intubated neck no lad no thyromegaly) Lungs: Crackles Cardiovascular: S1, S2 Abdomen: Soft, Non-tender, Other (DISTENDED no mass) Extremities: Other (EDEMA) Skin: Warm Labs Laboratory Tests Test 01/09/19 08:00 01/09/19 08:50 01/09/19 12:08 01/09/19 17:19 O2 Saturation 92 % (92-99) Arterial Blood pH 7.46 (7.35-7.45) Arterial Blood pCO2 at Patient Temp 38 mmHg (35-46) Arterial Blood pO2 at Patient Temp 65 mmHg (85-108) Arterial Blood HCO3 26 mmol/L (21-28) Arterial Blood Base Excess 2 mmol/L (-3-3) FiO2 70 Lactic Acid Level 2.8 mmol/L (0.4-2.0) Glucose (Fingerstick) 133 mg/dL (70-99) 129 mg/dL (70-99) Test 01/10/19 05:00 01/10/19 08:00 01/10/19 08:04 01/11/19 04:30 White Blood Count 15.6 x10^3/uL (4.0-11.0) Red Blood Count 2.48 x10^6/uL (4.30-5.70) Hemoglobin 8.2 g/dL (13.0-17.5) Hematocrit 23.9 % (39.0-53.0) Mean Corpuscular Volume 96 fL (79-100) Mean Corpuscular Hemoglobin 33 pg (25-35) Mean Corpuscular Hemoglobin Concent 34 g/dL (31-37) Red Cell Distribution Width 15.2 % (11.5-14.5) Platelet Count 190 x10^3/uL (140-400) Neutrophils (%) (Auto) 76 % (31-73) Lymphocytes (%) (Auto) 13 % (24-48) Monocytes (%) (Auto) 10 % (0-9) Eosinophils (%) (Auto) 1 % (0-3) Basophils (%) (Auto) 1 % (0-3) Neutrophils # (Auto) 11.8 x10^3/uL (1.8-7.7) Lymphocytes # (Auto) 2.1 x10^3/uL (1.0-4.8) Monocytes # (Auto) 1.5 x10^3/uL (0.0-1.1) Eosinophils # (Auto) 0.1 x10^3/uL (0.0-0.7) Basophils # (Auto) 0.1 x10^3/uL (0.0-0.2) Sodium Level 142 mmol/L (136-145) 141 mmol/L (136-145) Potassium Level 3.0 mmol/L (3.5-5.1) 4.5 mmol/L (3.5-5.1) Chloride Level 104 mmol/L (98-107) 107 mmol/L (98-107) Carbon Dioxide Level 29 mmol/L (21-32) 26 mmol/L (21-32) Anion Gap 9 (6-14) 8 (6-14) Blood Urea Nitrogen 49 mg/dL (8-26) 43 mg/dL (8-26) Creatinine 1.3 mg/dL (0.7-1.3) 1.0 mg/dL (0.7-1.3) Estimated GFR (Cockcroft-Gault) 61.8 83.6 BUN/Creatinine Ratio 38 (6-20) Glucose Level 118 mg/dL (70-99) 86 mg/dL (70-99) Calcium Level 6.8 mg/dL (8.5-10.1) 6.9 mg/dL (8.5-10.1) Total Bilirubin 10.4 mg/dL (0.2-1.0) Aspartate Amino Transf (AST/SGOT) 421 U/L (15-37) Alanine Aminotransferase (ALT/SGPT) 168 U/L (16-63) Alkaline Phosphatase 130 U/L (46-116) Ammonia 64 mcmol/L (11-34) Total Protein 6.0 g/dL (6.4-8.2) Albumin 1.7 g/dL (3.4-5.0) Albumin/Globulin Ratio 0.4 (1.0-1.7) Procalcitonin 4.70 ng/mL (0.00-0.10) O2 Saturation 80 % (92-99) Arterial Blood pH 7.48 (7.35-7.45) Arterial Blood pCO2 at Patient Temp 38 mmHg (35-46) Arterial Blood pO2 at Patient Temp 43 mmHg (85-108) Arterial Blood HCO3 28 mmol/L (21-28) Arterial Blood Base Excess 4 mmol/L (-3-3) FiO2 70 Glucose (Fingerstick) 109 mg/dL (70-99) Laboratory Tests Test 01/10/19 08:00 01/10/19 08:04 01/11/19 04:30 O2 Saturation 80 % (92-99) Arterial Blood pH 7.48 (7.35-7.45) Arterial Blood pCO2 at Patient Temp 38 mmHg (35-46) Arterial Blood pO2 at Patient Temp 43 mmHg (85-108) Arterial Blood HCO3 28 mmol/L (21-28) Arterial Blood Base Excess 4 mmol/L (-3-3) FiO2 70 Glucose (Fingerstick) 109 mg/dL (70-99) Sodium Level 141 mmol/L (136-145) Potassium Level 4.5 mmol/L (3.5-5.1) Chloride Level 107 mmol/L (98-107) Carbon Dioxide Level 26 mmol/L (21-32) Anion Gap 8 (6-14) Blood Urea Nitrogen 43 mg/dL (8-26) Creatinine 1.0 mg/dL (0.7-1.3) Estimated GFR (Cockcroft-Gault) 83.6 Glucose Level 86 mg/dL (70-99) Calcium Level 6.9 mg/dL (8.5-10.1) Comments cxr reviewed, ett ok 1. Bilateral infiltrates have improved in the upper lobes but persist in the bases. Impression . IMPRESSION: 1. Acute respiratory failure, multifactorial, secondary to multiorgan failure. 2. End-stage liver disease. 3. Multiorgan failure. 4. Renal failure. 5. Acute gastrointestinal bleed. 6. Possible sepsis. 7. Leukocytosis. 8. Hematemesis. 9. Rhabdomyolysis. 10. Alcohol abuse. 11. Ascites. 12. Electrolyte abnormalities. 13. fever Imaging: EGD 01/08 E--NO VARICES. Erosions distally c/w reflux/repeated emesis. One quite long narrow erosion which could have been a M-W. No active bleeding or clot. G--Not much retained blood after OG suction and Reglan. NO gastric varices. Linear erosions along the rugae in fundus and body c/w alcoholic or stress gastritis. Scattered "bruises" from OG tube. No ulcer, etc. D--Normal to second portion. IMP: Reflux esophagitis. ? recent M-W tear. Alcoholic gastritis. No active bleeding or clot seen. Plan . cont vent support, setting reviewed, peep 10, cont 02 titration JAIL PROGNOSIS IS POOR 1. D/W RN AND RT 2. Continue antibiotics per Infectious Disease service. zyvox added for persistent fever 3. IV fluids. 4. monitor h/h 5. Monitor hemoglobin and hematocrit. 6. Follow GI recommendation. 7. Alcohol withdrawal protocol. GRAEME MONTALVO MD Jan 11, 2019 06:15
[2019-01-11] MEDS: PROPOFOL 100 ML IV PRN ×3 (06:36→20:00)
[2019-01-11] MEDS: INSULIN LISPRO 300 UNITS/3 ML VIAL. SQ SCH ×3 (07:53→17:00)
[2019-01-11] MEDS: PANTOPRAZOLE IV PUSH 40 MG VIAL. IVP SCH (07:53)
[2019-01-11] MEDS: POTASSIUM BICARB 20 MEQ EFFERVESCENT TABLET. FT SCH (07:53)
[2019-01-11] MEDS: LACTULOSE 20 GM/30 ML SOLUTION. PO SCH (07:53)
[2019-01-11] MEDS: IV NORMAL SALINE 1000ML BAG 1,000 ML IV SCH (07:56)
--- NOTE | 2019-01-11 08:14 | RAD ---
EXAM: CHEST ONE VIEW. HISTORY: Respiratory failure, intubated. COMPARISON: 01/10/2019. FINDINGS: A frontal view of the chest is obtained. An endotracheal tube has its tip 4 cm above the pro. A nasogastric tube has its tip below the inferior margin of the view. Left greater than right basilar airspace opacities persist. They have improved somewhat in the upper lobes. There is a small left pleural effusion. There is no pneumothorax. The heart is not enlarged. IMPRESSION: 1. Bilateral infiltrates have improved in the upper lobes but persist in the bases. Electronically signed by: Nick Gonzalez MD (01/11/2019 8:12 AM) [facility]
[2019-01-11 08:40] LABS: BASO # 0.1 x10^3/uL (0.0-0.2); BASO % 0 % (0-3); EOS # 0.1 x10^3/uL (0.0-0.7); EOS % 1 % (0-3); HEMATOCRIT 26.4 % (39.0-53.0); LYMPH # 3.5 x10^3/uL (1.0-4.8); LYMPH % 18 % (24-48); MEAN CORPUSCULAR HEMOGLOBIN 34 pg (25-35); MEAN CORPUSCULAR HGB CONC 34 g/dL (31-37); MEAN CORPUSCULAR VOLUME 98 fL (79-100); MONO # 1.4 x10^3/uL (0.0-1.1); MONO % 8 % (0-9); NEUT # 14.1 x10^3/uL (1.8-7.7); NEUT % 73 % (31-73); PLATELET COUNT 213 x10^3/uL (140-400); RED BLOOD COUNT 2.68 x10^6/uL (4.30-5.70); RED CELL DISTRIBUTION WIDTH 16.3 % (11.5-14.5); WHITE BLOOD COUNT 19.2 x10^3/uL (4.0-11.0)
--- NOTE | 2019-01-11 08:46 | PDOC ---
Infectious Disease Note Subjective Subjective Sedated Orally intubated FiO2 70 PEEP 10 Tube feedings off Fever Tmax 101.0 Vital Sign Vital Signs Vital Signs Date Time Temp Pulse Resp B/P (MAP) Pulse Ox O2 Delivery O2 Flow Rate FiO2 01/11/19 07:00 112 18 110/56 (74) 94 Ventilator 01/11/19 04:00 100.1 100.1 Physical Exam PHYSICAL EXAM GENERAL: Orally intubated and sedated, mitts HEENT: Pupils equal, ETT and OGT NECK: Supple LUNGS: Clear anterior HEART: S1/S2. ABDOMEN: Obese, soft, hypoactive BS : - Pollard EXTREMITIES: Trace edema lower extremities bilaterally. LLE ecchymosis. SKIN: Warm to touch. No rash NEUROLOGIC: Sedated PIV s clean Labs Lab Laboratory Tests Test 01/11/19 04:30 Sodium Level 141 mmol/L (136-145) Potassium Level 4.5 mmol/L (3.5-5.1) Chloride Level 107 mmol/L (98-107) Carbon Dioxide Level 26 mmol/L (21-32) Anion Gap 8 (6-14) Blood Urea Nitrogen 43 mg/dL (8-26) Creatinine 1.0 mg/dL (0.7-1.3) Estimated GFR (Cockcroft-Gault) 83.6 Glucose Level 86 mg/dL (70-99) Calcium Level 6.9 mg/dL (8.5-10.1) CXR 1. Bilateral infiltrates have improved in the upper lobes but persist in the bases. Micro Microbiology 01/08/19 Blood Culture - Preliminary, Resulted NO GROWTH AFTER 1 DAY 01/08/19 Urine Culture - Final, Complete 01/08/19 Urine Culture Result 1 (ELMA) - Final, Complete Objective Assessment Hypotension - off pressors Fever - curve improving ? ID vs PRBCs vs reactive vs Withdrawl Leukocytosis - ? reactive, improved Lactic acidosis - better Resp failure now intubated ? UTI. cultures neg Anemia - s/p PRBCs GI Bleed - s/p EGD 01/08 - Reflux esophagitis. ? recent M-W tear. Alcoholic gastritis. DOMONIQUE Transaminitis - better Hep C ? pancreatitis Rhabdo CK 965 ETOH abuse with mild ascites Electrolyte abnormalities Obstructive resp issues Left leg echymosis Plan Plan of Care Cont Zosyn. Procalcitonin 4.70 Sputum culture in process today's labs pending Critically ill D/w ongoing fevers with Dr. Jaime. Added Zyvox Patient seen and examined. Chart reviewed in detail. Case discussed with COMPUTER NETWORK SUPPORT SPECIALIST. Agree with above plan. ANNEMARIE MARTINEZ APRN Jan 11, 2019 08:46 YARITZA JAIME MD Jan 11, 2019 18:09
[2019-01-11] MEDS: MULTIVIT INFUSN,ADULT 4,VIT K 10 ML, THIAMINE INJ 100 MG, FOLIC ACID INJ 1 MG in IV NOR... IV SCH (08:49)
[2019-01-11 09:05] LABS: BASE EXCESS ABG 5 mmol/L (-3-3); HCO3 ABG 30 mmol/L (21-28); PCO2 ABG 44 mmHg (35-46); PO2 ABG 56 mmHg (85-108); SAT O2 ABG 88 % (92-99)
[2019-01-11 09:08] LABS: FIO2 ABG 70
--- NOTE | 2019-01-11 09:26 | PDOC ---
PROGRESS NOTES Chief Complaint Chief Complaint Acute respi falure, IPPV - 01.08, fluid overload? - check echo, vent bundle, CXR shows "Atypical infection" HEMATEMESIS in A HEAVY DRINKER -Atrophic gastritis ? MW BUT NO ACTIVE GIB - s.po STAT EGD 01/08 SEVERE PCM - albumin 1,7 -s/p albumin 01/09 - off pressors by 01/10 MInimal ascites - by US and CT - no tapable fluid HYPOTENSION, s/p, pressors standby, albumin, blood products if needed Coagulopathy -s .p vit K, HEPATIC enceph - ammonia midly high 60-90s - lactulose,TN HIGH residuals TRAMSAMINITIS with ELEVATED TB- per GI (TB 9), AST 300s-500s HEp C antibody positive LEft leg bruise, in this coagulopathic anemic pt sec to fall 2 weeks ago - monitor ELEAVTED AGAP acidosis, renal consulted, can check PH in ABG - better History of Present Illness History of Present Illness INtubated, sedated - needed to vecuronium per RN PEEP 10, Fi O2 70% - was not ready to extubate Echo pending, CXR was not improving saturday - cards consulted saturday, agree withe cho ALcoholic off pressor x 2 days now ON 3 sedations now (needed to add the thrid one saturday night) UO ok EGD results noted, no active GIB, poss MW, atrophic gastritis STOP SANDOSTATIN, CONT PPI gtt, SCDS - saturday event AMMONIA 60-90s - started lactulose, qdaily per GI NOw ammonia 49 HEp c positive IgG HIGH GASTRIC RESIDUALS sat and saturday, had to stopp TF NOW , OGT has no drainage - dw RN Sandeep,will restart TF, belly soft PLAN re start TFs slow REglan on file Echo Cards, pulmo, GI on case Ammnonia 49 coming down on lactulose qD but no BM NOw has better UO\\ Extubating is the prob, high PEEP and O2 requirement NO bleeding so far since admission STAT EGD no active beleding but atrophic gastritis plsu m,aybe Lydia pepper Prog poor, hypernatremia better - on water flushes S.p albumin 50 gms saturday - albumin 1.,7 COrrected CALCIUM IS NORMAL cc ill prog guarded, mentation might be a problem in extubating in this alcoholic Vitals Vitals Vital Signs Date Time Temp Pulse Resp B/P (MAP) Pulse Ox O2 Delivery O2 Flow Rate FiO2 01/11/19 08:48 96 Ventilator 01/11/19 08:00 101.2 111 18 111/57 (75) 101.2 Physical Exam Physical Exam GENERAL: Orally intubated and sedated, mitts HEENT: Pupils equal, ETT and OGT NECK: Supple LUNGS: Clear anterior HEART: S1/S2. ABDOMEN: Obese, soft, hypoactive BS : - Pollard EXTREMITIES: Trace edema lower extremities bilaterally. LLE ecchymosis. SKIN: Warm to touch. No rash NEUROLOGIC: Sedated PIV s clean General: Other (tachypneic 30s) Heart: Regular rate, Normal S1, Normal S2 Lungs: Crackles Abdomen: Soft, No tenderness, Other (pot belly possible fluid wave) Extremities: No clubbing, No cyanosis, Normal pulses, Other (left leg is bruised from a fall 2-3 weeks ago) Labs LABS Laboratory Tests Test 01/11/19 04:30 01/11/19 08:26 01/11/19 09:00 Sodium Level 141 mmol/L (136-145) Potassium Level 4.5 mmol/L (3.5-5.1) Chloride Level 107 mmol/L (98-107) Carbon Dioxide Level 26 mmol/L (21-32) Anion Gap 8 (6-14) Blood Urea Nitrogen 43 mg/dL (8-26) Creatinine 1.0 mg/dL (0.7-1.3) Estimated GFR (Cockcroft-Gault) 83.6 Glucose Level 86 mg/dL (70-99) Calcium Level 6.9 mg/dL (8.5-10.1) White Blood Count 19.2 x10^3/uL (4.0-11.0) Red Blood Count 2.68 x10^6/uL (4.30-5.70) Hemoglobin 9.0 g/dL (13.0-17.5) Hematocrit 26.4 % (39.0-53.0) Mean Corpuscular Volume 98 fL (79-100) Mean Corpuscular Hemoglobin 34 pg (25-35) Mean Corpuscular Hemoglobin Concent 34 g/dL (31-37) Red Cell Distribution Width 16.3 % (11.5-14.5) Platelet Count 213 x10^3/uL (140-400) Neutrophils (%) (Auto) 73 % (31-73) Lymphocytes (%) (Auto) 18 % (24-48) Monocytes (%) (Auto) 8 % (0-9) Eosinophils (%) (Auto) 1 % (0-3) Basophils (%) (Auto) 0 % (0-3) Neutrophils # (Auto) 14.1 x10^3/uL (1.8-7.7) Lymphocytes # (Auto) 3.5 x10^3/uL (1.0-4.8) Monocytes # (Auto) 1.4 x10^3/uL (0.0-1.1) Eosinophils # (Auto) 0.1 x10^3/uL (0.0-0.7) Basophils # (Auto) 0.1 x10^3/uL (0.0-0.2) Ammonia 49 mcmol/L (11-34) O2 Saturation 88 % (92-99) Arterial Blood pH 7.45 (7.35-7.45) Arterial Blood pCO2 at Patient Temp 44 mmHg (35-46) Arterial Blood pO2 at Patient Temp 56 mmHg (85-108) Arterial Blood HCO3 30 mmol/L (21-28) Arterial Blood Base Excess 5 mmol/L (-3-3) FiO2 70 Review of Systems Review of Systems intubated, sedated Assessment and Plan Assessmemt and Plan Problems Medical Problems: (1) Acute hepatic encephalopathy Status: Acute (2) Acute upper GI bleed Status: Acute (3) Ascites Status: Acute (4) Hypokalemia Status: Acute (5) Multiple organ system failure Status: Acute (6) Severe sepsis with acute organ dysfunction Status: Acute Comment Review of Relevant I have reviewed the following items karen (where applicable) has been applied. Labs Laboratory Tests Test 01/09/19 12:08 01/09/19 17:19 01/10/19 05:00 01/10/19 08:00 Glucose (Fingerstick) 133 mg/dL (70-99) 129 mg/dL (70-99) White Blood Count 15.6 x10^3/uL (4.0-11.0) Red Blood Count 2.48 x10^6/uL (4.30-5.70) Hemoglobin 8.2 g/dL (13.0-17.5) Hematocrit 23.9 % (39.0-53.0) Mean Corpuscular Volume 96 fL (79-100) Mean Corpuscular Hemoglobin 33 pg (25-35) Mean Corpuscular Hemoglobin Concent 34 g/dL (31-37) Red Cell Distribution Width 15.2 % (11.5-14.5) Platelet Count 190 x10^3/uL (140-400) Neutrophils (%) (Auto) 76 % (31-73) Lymphocytes (%) (Auto) 13 % (24-48) Monocytes (%) (Auto) 10 % (0-9) Eosinophils (%) (Auto) 1 % (0-3) Basophils (%) (Auto) 1 % (0-3) Neutrophils # (Auto) 11.8 x10^3/uL (1.8-7.7) Lymphocytes # (Auto) 2.1 x10^3/uL (1.0-4.8) Monocytes # (Auto) 1.5 x10^3/uL (0.0-1.1) Eosinophils # (Auto) 0.1 x10^3/uL (0.0-0.7) Basophils # (Auto) 0.1 x10^3/uL (0.0-0.2) Sodium Level 142 mmol/L (136-145) Potassium Level 3.0 mmol/L (3.5-5.1) Chloride Level 104 mmol/L (98-107) Carbon Dioxide Level 29 mmol/L (21-32) Anion Gap 9 (6-14) Blood Urea Nitrogen 49 mg/dL (8-26) Creatinine 1.3 mg/dL (0.7-1.3) Estimated GFR (Cockcroft-Gault) 61.8 BUN/Creatinine Ratio 38 (6-20) Glucose Level 118 mg/dL (70-99) Calcium Level 6.8 mg/dL (8.5-10.1) Total Bilirubin 10.4 mg/dL (0.2-1.0) Aspartate Amino Transf (AST/SGOT) 421 U/L (15-37) Alanine Aminotransferase (ALT/SGPT) 168 U/L (16-63) Alkaline Phosphatase 130 U/L (46-116) Ammonia 64 mcmol/L (11-34) Total Protein 6.0 g/dL (6.4-8.2) Albumin 1.7 g/dL (3.4-5.0) Albumin/Globulin Ratio 0.4 (1.0-1.7) Procalcitonin 4.70 ng/mL (0.00-0.10) O2 Saturation 80 % (92-99) Arterial Blood pH 7.48 (7.35-7.45) Arterial Blood pCO2 at Patient Temp 38 mmHg (35-46) Arterial Blood pO2 at Patient Temp 43 mmHg (85-108) Arterial Blood HCO3 28 mmol/L (21-28) Arterial Blood Base Excess 4 mmol/L (-3-3) FiO2 70 Test 01/10/19 08:04 01/11/19 04:30 01/11/19 08:26 01/11/19 09:00 Glucose (Fingerstick) 109 mg/dL (70-99) Sodium Level 141 mmol/L (136-145) Potassium Level 4.5 mmol/L (3.5-5.1) Chloride Level 107 mmol/L (98-107) Carbon Dioxide Level 26 mmol/L (21-32) Anion Gap 8 (6-14) Blood Urea Nitrogen 43 mg/dL (8-26) Creatinine 1.0 mg/dL (0.7-1.3) Estimated GFR (Cockcroft-Gault) 83.6 Glucose Level 86 mg/dL (70-99) Calcium Level 6.9 mg/dL (8.5-10.1) White Blood Count 19.2 x10^3/uL (4.0-11.0) Red Blood Count 2.68 x10^6/uL (4.30-5.70) Hemoglobin 9.0 g/dL (13.0-17.5) Hematocrit 26.4 % (39.0-53.0) Mean Corpuscular Volume 98 fL (79-100) Mean Corpuscular Hemoglobin 34 pg (25-35) Mean Corpuscular Hemoglobin Concent 34 g/dL (31-37) Red Cell Distribution Width 16.3 % (11.5-14.5) Platelet Count 213 x10^3/uL (140-400) Neutrophils (%) (Auto) 73 % (31-73) Lymphocytes (%) (Auto) 18 % (24-48) Monocytes (%) (Auto) 8 % (0-9) Eosinophils (%) (Auto) 1 % (0-3) Basophils (%) (Auto) 0 % (0-3) Neutrophils # (Auto) 14.1 x10^3/uL (1.8-7.7) Lymphocytes # (Auto) 3.5 x10^3/uL (1.0-4.8) Monocytes # (Auto) 1.4 x10^3/uL (0.0-1.1) Eosinophils # (Auto) 0.1 x10^3/uL (0.0-0.7) Basophils # (Auto) 0.1 x10^3/uL (0.0-0.2) Ammonia 49 mcmol/L (11-34) O2 Saturation 88 % (92-99) Arterial Blood pH 7.45 (7.35-7.45) Arterial Blood pCO2 at Patient Temp 44 mmHg (35-46) Arterial Blood pO2 at Patient Temp 56 mmHg (85-108) Arterial Blood HCO3 30 mmol/L (21-28) Arterial Blood Base Excess 5 mmol/L (-3-3) FiO2 70 Laboratory Tests Test 01/11/19 04:30 01/11/19 08:26 01/11/19 09:00 Sodium Level 141 mmol/L (136-145) Potassium Level 4.5 mmol/L (3.5-5.1) Chloride Level 107 mmol/L (98-107) Carbon Dioxide Level 26 mmol/L (21-32) Anion Gap 8 (6-14) Blood Urea Nitrogen 43 mg/dL (8-26) Creatinine 1.0 mg/dL (0.7-1.3) Estimated GFR (Cockcroft-Gault) 83.6 Glucose Level 86 mg/dL (70-99) Calcium Level 6.9 mg/dL (8.5-10.1) White Blood Count 19.2 x10^3/uL (4.0-11.0) Red Blood Count 2.68 x10^6/uL (4.30-5.70) Hemoglobin 9.0 g/dL (13.0-17.5) Hematocrit 26.4 % (39.0-53.0) Mean Corpuscular Volume 98 fL (79-100) Mean Corpuscular Hemoglobin 34 pg (25-35) Mean Corpuscular Hemoglobin Concent 34 g/dL (31-37) Red Cell Distribution Width 16.3 % (11.5-14.5) Platelet Count 213 x10^3/uL (140-400) Neutrophils (%) (Auto) 73 % (31-73) Lymphocytes (%) (Auto) 18 % (24-48) Monocytes (%) (Auto) 8 % (0-9) Eosinophils (%) (Auto) 1 % (0-3) Basophils (%) (Auto) 0 % (0-3) Neutrophils # (Auto) 14.1 x10^3/uL (1.8-7.7) Lymphocytes # (Auto) 3.5 x10^3/uL (1.0-4.8) Monocytes # (Auto) 1.4 x10^3/uL (0.0-1.1) Eosinophils # (Auto) 0.1 x10^3/uL (0.0-0.7) Basophils # (Auto) 0.1 x10^3/uL (0.0-0.2) Ammonia 49 mcmol/L (11-34) O2 Saturation 88 % (92-99) Arterial Blood pH 7.45 (7.35-7.45) Arterial Blood pCO2 at Patient Temp 44 mmHg (35-46) Arterial Blood pO2 at Patient Temp 56 mmHg (85-108) Arterial Blood HCO3 30 mmol/L (21-28) Arterial Blood Base Excess 5 mmol/L (-3-3) FiO2 70 Microbiology 01/08/19 Blood Culture - Preliminary, Resulted NO GROWTH AFTER 2 DAYS 01/08/19 Urine Culture - Final, Complete 01/08/19 Urine Culture Result 1 (ELMA) - Final, Complete Medications Current Medications Sodium Chloride 1,000 ml @ 1,000 mls/hr 1X ONCE IV Last administered on 01/07/19at 19:27; Start 01/07/19 at 19:30; Stop 01/07/19 at 20:29; Status DC Ondansetron HCl (Zofran) 4 mg 1X ONCE IV Last administered on 01/07/19at 19:28; Start 01/07/19 at 19:30; Stop 01/07/19 at 19:31; Status DC Pantoprazole Sodium (PROTONIX VIAL for IV PUSH) 80 mg 1X ONCE IVP Last administered on 01/07/19at 19:50; Start 01/07/19 at 20:00; Stop 01/07/19 at 20:01; Status DC Pantoprazole Sodium 80 mg/ Sodium Chloride 100 ml @ 10 mls/hr 1X ONCE IV Last administered on 01/07/19at 20:00; Start 01/07/19 at 20:00; Stop 01/08/19 at 05:59; Status DC Sodium Chloride 1,000 ml @ 1,000 mls/hr 1X ONCE IV Last administered on 01/07/19at 22:12; Start 01/07/19 at 21:00; Stop 01/07/19 at 21:59; Status DC Sodium Chloride 1,000 ml @ 1,000 mls/hr 1X ONCE IV Last administered on 01/07/19at 20:40; Start 01/07/19 at 20:45; Stop 01/07/19 at 21:44; Status DC Potassium Chloride/Sodium Chloride 1,000 ml @ 75 mls/hr 1X ONCE IV Last administered on 01/07/19at 21:16; Start 01/07/19 at 21:30; Stop 01/08/19 at 10:49; Status DC Vancomycin HCl (Vanco Per Pharmacy) 1 each PRN DAILY PRN MC SEE COMMENTS Last administered on 01/08/19at 00:43; Start 01/07/19 at 21:00; Stop 01/08/19 at 06:39; Status DC Piperacillin Sod/ Tazobactam Sod (Zosyn Per Pharmacy) 1 each PRN DAILY PRN MC SEE COMMENTS; Start 01/07/19 at 21:00 Piperacillin Sod/ Tazobactam Sod 3.375 gm/Sodium Chloride 50 ml @ 100 mls/hr Q6HRS IV Last administered on 01/11/19at 06:09; Start 01/07/19 at 22:00 Vancomycin HCl 2 gm/Sodium Chloride 500 ml @ 250 mls/hr 1X ONCE IV Last administered on 01/07/19at 22:11; Start 01/07/19 at 22:00; Stop 01/07/19 at 23:59; Status DC Lorazepam (Ativan Inj) 1 mg 1X ONCE IV Last administered on 01/07/19at 23:22; Start 01/07/19 at 23:30; Stop 01/07/19 at 23:31; Status DC Lorazepam (Ativan Inj) 2 mg STK-MED ONCE .ROUTE ; Start 01/07/19 at 23:20; Stop 01/07/19 at 23:21; Status DC Vancomycin HCl 1.5 gm/Sodium Chloride 500 ml @ 250 mls/hr Q12H IV ; Start 01/08/19 at 10:00; Stop 01/08/19 at 06:39; Status DC Vancomycin HCl (Vancomycin Trough Level) 1 each 1X ONCE MC ; Start 01/09/19 at 09:30; Stop 01/09/19 at 09:31; Status Cancel Ondansetron HCl (Zofran) 4 mg PRN Q6HRS PRN IVP NAUSEA/VOMITING; Start 01/08/19 at 04:00; Status Cancel Pantoprazole Sodium 80 mg/ Sodium Chloride 100 ml @ 10 mls/hr Q10H IV Last administered on 01/09/19at 02:00; Start 01/08/19 at 06:00; Stop 01/09/19 at 11:00; Status DC Multivitamins 10 ml/Thiamine HCl 100 mg/Folic Acid 1 mg/Sodium Chloride 1,011.2 ml @ 100 mls/ hr DAILY IV Last administered on 01/11/19at 08:49; Start 01/08/19 at 09:00; Stop 01/12/19 at 19:07 Lorazepam (Ativan Inj) 2 mg PRN Q1HR PRN IV For CIWA 8-14 Last administered on 01/09/19at 22:24; Start 01/08/19 at 07:15 Lorazepam (Ativan Inj) 4 mg PRN Q1HR PRN IV For CIWA 15 or greater; Start 01/08/19 at 07:15 Haloperidol Lactate (Haldol Inj) 5 mg PRN Q4HRS PRN IVP Hallucinatns,Confusn,Delirium; Start 01/08/19 at 07:15 Diphenhydramine HCl (Benadryl) 25 mg PRN Q15MIN PRN IVP EPS symptoms 2'Haldol admin; Start 01/08/19 at 07:15 Clonidine HCl (Catapres) 0.1 mg PRN Q1HR PRN PO SBP > 180 or DBP > 100, MRX3; Start 01/08/19 at 07:15 Sodium Bicarbonate (Sodium Bicarb Adult 8.4% Syr) 50 meq 1X ONCE IV Last administered on 01/08/19at 08:04; Start 01/08/19 at 08:00; Stop 01/08/19 at 08:01; Status DC Propofol 100 ml @ As Directed STK-MED ONCE IV ; Start 01/08/19 at 08:19; Stop 01/08/19 at 08:19; Status DC Succinylcholine Chloride (Anectine) 200 mg STK-MED ONCE .ROUTE ; Start 01/08/19 at 08:19; Stop 01/08/19 at 08:19; Status DC Propofol 100 ml @ As Directed STK-MED ONCE IV ; Start 01/08/19 at 08:29; Stop 01/08/19 at 08:30; Status DC Fentanyl Citrate 30 ml @ 0 mls/hr CONT PRN PRN IV PER PROTOCOL Last administered on 01/11/19at 06:12; Start 01/08/19 at 09:00 Naloxone HCl (Narcan) 0.4 mg PRN Q2MIN PRN IV SEE INSTRUCTIONS; Start 01/08/19 at 09:00 Sodium Chloride 1,000 ml @ 25 mls/hr Q24H IV Last administered on 01/11/19at 07:56; Start 01/08/19 at 08:54 Fentanyl Citrate (Fentanyl 2ml Vial) 100 mcg STK-MED ONCE .ROUTE ; Start 01/08/19 at 08:55; Stop 01/08/19 at 08:55; Status DC Octreotide Acetate 500 mcg/ Sodium Chloride 101 ml @ 0 mls/hr CONT PRN IV SEE I/O RECORD Last administered on 01/08/19at 13:56; Start 01/08/19 at 09:00; Stop 01/08/19 at 16:55; Status DC Phytonadione (Vitamin K Ampule) 10 mg 1X ONCE SQ Last administered on 01/08/19at 09:56; Start 01/08/19 at 09:15; Stop 01/08/19 at 09:16; Status DC Metoclopramide HCl (Reglan Vial) 10 mg 1X ONCE IVP Last administered on 01/08/19at 14:36; Start 01/08/19 at 11:00; Stop 01/08/19 at 11:01; Status DC Midazolam HCl (Versed) 5 mg STK-MED ONCE .ROUTE ; Start 01/08/19 at 09:00; Stop 01/08/19 at 09:01; Status DC Acetaminophen (Tylenol) 500 mg PRN Q6HRS PRN PO MILD PAIN / TEMP; Start 01/08/19 at 09:15 Tramadol HCl (Ultram) 50 mg PRN Q6HRS PRN PO PAIN MODERATE; Start 01/08/19 at 09:15 Morphine Sulfate (Morphine Sulfate) 2 mg PRN Q2HR PRN IV PAIN; Start 01/08/19 at 09:15 Ondansetron HCl (Zofran) 4 mg PRN Q6HRS PRN IVP NAUSEA/VOMITING; Start 01/08/19 at 09:15 Fentanyl Citrate (Fentanyl 2ml Vial) 100 mcg 1X ONCE IVP Last administered on 01/08/19at 09:42; Start 01/08/19 at 09:45; Stop 01/08/19 at 09:46; Status DC Midazolam HCl (Versed) 5 mg 1X ONCE IV Last administered on 01/08/19at 09:41; Start 01/08/19 at 09:45; Stop 01/08/19 at 09:46; Status DC Succinylcholine Chloride (Anectine) 200 mg 1X ONCE IV Last administered on 01/08/19at 09:41; Start 01/08/19 at 09:45; Stop 01/08/19 at 09:46; Status DC Propofol 100 ml @ 1.524 mls/ hr CONT PRN IV SEE I/O RECORD Last administered on 01/11/19at 06:36; Start 01/08/19 at 09:45 Midazolam HCl 100 ml @ 5 mls/hr CONT PRN IV SEE I/O RECORD Last administered on 01/11/19at 06:08; Start 01/08/19 at 11:15 Vecuronium Foley (Norcuron Bolus) 6 mg PRN Q4HRS PRN IV VENT ASYNCHRONY Last administered on 01/10/19at 15:59; Start 01/08/19 at 12:00 Benzocaine (Hurricaine One) 2 spray STK-MED ONCE .ROUTE ; Start 01/07/19 at 12:00; Stop 01/08/19 at 14:20; Status DC Lidocaine HCl (Xylocaine 2% Topical 5gm Tube) 5 amanda STK-MED ONCE TP ; Start 01/07/19 at 12:00; Stop 01/08/19 at 14:20; Status DC Lactobacillus Rhamnosus (Culturelle) 1 cap BID PO ; Start 01/08/19 at 21:00; Stop 01/09/19 at 09:29; Status DC Acetaminophen (Tylenol Supp) 650 mg PRN Q6HRS PRN TN MILD PAIN / TEMP Last administered on 01/09/19at 23:44; Start 01/08/19 at 18:15 Norepinephrine Bitartrate 250 ml @ 18.938 mls/ hr CONT PRN IV SEE I/O RECORD Last administered on 01/09/19at 01:00; Start 01/09/19 at 01:45 Potassium Chloride (Klor-Con) 40 meq 1X ONCE PO Last administered on 01/09/19at 11:34; Start 01/09/19 at 09:45; Stop 01/09/19 at 09:46; Status DC Metoclopramide HCl (Reglan Vial) 10 mg PRN Q6HRS PRN IVP NAUSEA/VOMITING; Start 01/09/19 at 10:15 Albumin Human 100 ml @ 100 mls/hr 1X ONCE IV Last administered on 01/09/19at 10:49; Start 01/09/19 at 10:15; Stop 01/09/19 at 11:14; Status DC Lactulose (LACTULOSE 300ML for RECTAL) 200 gm Q6HRS TN ; Start 01/09/19 at 12:00; Stop 01/09/19 at 11:04; Status DC Insulin Human Lispro (HumaLOG) 0-9 UNITS TIDWMEALS SQ ; Start 01/09/19 at 12:00 Dextrose (Dextrose 50%-Water Syringe) 12.5 gm PRN Q15MIN PRN IV SEE COMMENTS; Start 01/09/19 at 10:30 Fentanyl Citrate (Fentanyl 600 Mcg/30 ml WINDOWS DESKTOP SUPPORT) 600 mcg STK-MED ONCE IV ; Start 01/08/19 at 15:25; Stop 01/09/19 at 10:27; Status DC Pantoprazole Sodium (PROTONIX VIAL for IV PUSH) 40 mg DAILYAC IVP Last administered on 01/11/19at 07:53; Start 01/10/19 at 07:30 Lactulose (Lactulose) 20 gm DAILY PO Last administered on 01/11/19at 07:53; Start 01/09/19 at 11:30 Potassium Bicarbonate (Potassium Effervescent Tablet) 40 meq BIDWMEALS FT Last administered on 01/10/19at 17:49; Start 01/10/19 at 09:00 Vitals/I & O Vital Sign - Last 24 Hours 01/10/19 01/10/19 01/10/19 01/10/19 09:58 10:00 10:27 10:28 Pulse 106 Resp 28 25 18 B/P (MAP) 132/56 (81) Pulse Ox 91 92 90 95 O2 Delivery Ventilator Ventilator Ventilator Ventilator 01/10/19 01/10/19 01/10/19 01/10/19 11:00 12:00 12:00 12:28 Temp 99.2 99.2 Pulse 104 105 Resp 18 18 B/P (MAP) 117/53 (74) 134/60 (84) Pulse Ox 96 95 94 O2 Delivery Ventilator Mechanical Ventilator Ventilator Ventilator 01/10/19 01/10/19 01/10/19 01/10/19 13:00 14:00 15:00 15:34 Pulse 101 100 100 Resp 18 20 18 B/P (MAP) 120/60 (80) 116/55 (75) 111/59 (76) Pulse Ox 94 94 95 94 O2 Delivery Ventilator Ventilator Ventilator Ventilator 01/10/19 01/10/19 01/10/19 01/10/19 16:00 16:00 16:02 16:32 Temp 99.3 99.3 Pulse 102 Resp 18 18 18 B/P (MAP) 110/58 (75) Pulse Ox 95 93 95 O2 Delivery Ventilator Mechanical Ventilator Ventilator Ventilator 01/10/19 01/10/19 01/10/19 01/10/19 17:00 17:40 18:00 19:00 Pulse 101 97 97 Resp 18 18 18 B/P (MAP) 116/54 (74) 102/51 (68) 100/48 (65) Pulse Ox 94 94 93 94 O2 Delivery Ventilator Ventilator Ventilator Ventilator 01/10/19 01/10/19 01/10/19 01/10/19 20:00 20:00 20:37 21:00 Temp 99.5 99.5 Pulse 86 101 Resp 18 18 B/P (MAP) 99/53 (68) 99/54 (69) Pulse Ox 95 91 95 O2 Delivery Ventilator Mechanical Ventilator Ventilator Ventilator 11/2301/10/19 01/10/19 01/10/19 22:00 22:12 23:00 23:17 Pulse 104 107 Resp 18 18 18 18 B/P (MAP) 99/53 (68) 103/57 (72) Pulse Ox 95 96 95 96 O2 Delivery Ventilator Ventilator Ventilator Ventilator 01/10/19 01/11/19 01/11/19 01/11/19 23:18 00:00 00:00 01:00 Temp 101.0 101.0 Pulse 107 106 Resp 18 18 B/P (MAP) 102/53 (69) 105/59 (74) Pulse Ox 95 96 97 O2 Delivery Ventilator Ventilator Mechanical Ventilator Ventilator 01/11/19 01/11/19 01/11/19 01/11/19 01:30 02:00 03:00 03:34 Pulse 103 105 Resp 18 18 B/P (MAP) 108/59 (75) 92/47 (62) Pulse Ox 95 96 96 95 O2 Delivery Ventilator Ventilator Ventilator Ventilator 01/11/19 01/11/19 01/11/19 01/11/19 04:00 04:00 04:58 05:00 Temp 100.1 100.1 Pulse 107 107 Resp 18 18 B/P (MAP) 95/51 (66) 107/54 (71) Pulse Ox 94 93 93 O2 Delivery Mechanical Ventilator Ventilator Ventilator Ventilator 01/11/19 01/11/19 01/11/19 01/11/19 06:00 06:12 06:50 07:00 Pulse 112 112 Resp 18 18 18 18 B/P (MAP) 102/54 (70) 110/56 (74) Pulse Ox 93 94 94 94 O2 Delivery Ventilator Ventilator Ventilator Ventilator 01/11/19 01/11/19 01/11/19 08:00 08:00 08:48 Temp 101.2 101.2 Pulse 111 Resp 18 B/P (MAP) 111/57 (75) Pulse Ox 96 96 O2 Delivery Mechanical Ventilator Ventilator Ventilator Intake and Output 01/10/19 01/10/19 01/11/19 15:00 23:00 07:00 Intake Total 200 ml 1562.4 ml 429.0 ml Output Total 790 ml 870 ml 1010 ml Balance -590 ml 692.4 ml -581.0 ml MAIK GUNN MD Jan 11, 2019 09:25
[2019-01-11 11:24] LABS: % BANDS 11 % (0-9); % LYMPHS 10 % (24-48); % METAS 2 % (0-0); % MONOS 4 % (0-10); % MYELOS 2 % (0-0); % SEGS 71 % (35-66); NUCLEATED RBC 9
[2019-01-11 11:26] LABS: PLT ESTIMATE ADEQUATE (ADEQUATE)
[2019-01-11 11:28] LABS: POLYCHROMASIA PRESENT
[2019-01-11 11:29] LABS: TOXIC GRANULATION SLIGHT; TOXIC VACUOLATION MOD
--- NOTE | 2019-01-11 12:00 | PDOC ---
SUBJECTIVE ROS Intubated, sedated OBJECTIVE Vital Signs Vital Signs Date Time Temp Pulse Resp B/P (MAP) Pulse Ox O2 Delivery O2 Flow Rate FiO2 01/11/19 10:37 18 97 Ventilator 01/11/19 10:00 108 110/60 (77) 01/11/19 08:00 101.2 101.2 I & 0 Intake and Output 01/11/19 07:00 Intake Total 2191.4 ml Output Total 2670 ml Balance -478.6 ml Intake Oral 0 ml IV Total 1931.4 ml Tube Feeding 260 ml Output Urine Total 2670 ml Gastric Drainage Total 0 ml PHYSICAL EXAM Physical Exam GEN: Intubated on MV HEEN: Intubated NECK: supple CVS: S1S2 RESP: Intubated, decreased at bases, GI: Distended : Pollard+ Ext: No LE edema SKIN: left lower extremity with large ecchymosis from his thigh down to his lower third of the tibial area. Neuro- Intubated and sedated Skin No rash DIAGNOSIS/ASSESSMENT Assessment & Plan DOMONIQUE - pre-renal leading to ATN 2/2 Hypotension /Lactic acidosis/ Improved with IVF , UOP adequate Ct scan- Unremarkable Kidneys Supportive care, avoid nephrotoxins, Monitor Metabolic acidosis - 2/2 lactic acidosis Resolved Acute resp failure, - Intubated on MV Hematemesis- Heavy drinker, s/p egd 01/08- Reflux esophagitis,? 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 Anemia- - acute , s/p PRBC Stable Hypotension - On pressors Coagulopathy - s/p Vit K , abd FFP Hepatic Encephalopathy Transaminitis - Bili elevated as well Will sign off COMMENT/RELEVANT DATA Meds Current Medications Medications (Trade) Dose Ordered Sig/Quyen Start Time Stop Time Status Last Admin Dose Admin Acetaminophen (Tylenol Supp) 650 mg PRN Q6HRS PRN 01/08/19 18:15 01/09/19 23:44 650 MG Acetaminophen (Tylenol) 500 mg PRN Q6HRS PRN 01/08/19 09:15 Albumin Human 100 ml @ 100 mls/hr 1X ONCE 01/09/19 10:15 01/09/19 11:14 DC 01/09/19 10:49 100 MLS/HR Benzocaine (Hurricaine One) 2 spray STK-MED ONCE 01/07/19 12:00 01/08/19 14:20 DC Clonidine HCl (Catapres) 0.1 mg PRN Q1HR PRN 01/08/19 07:15 Dextrose (Dextrose 50%-Water Syringe) 12.5 gm PRN Q15MIN PRN 01/09/19 10:30 Diphenhydramine HCl (Benadryl) 25 mg PRN Q15MIN PRN 01/08/19 07:15 Fentanyl Citrate (Fentanyl 2ml Vial) 100 mcg 1X ONCE 01/08/19 09:45 01/08/19 09:46 DC 01/08/19 09:42 100 MCG Fentanyl Citrate (Fentanyl 600 Mcg/30 ml SEISMOGRAPH COMPUTER) 600 mcg STK-MED ONCE 01/08/19 15:25 01/09/19 10:27 DC Haloperidol Lactate (Haldol Inj) 5 mg PRN Q4HRS PRN 01/08/19 07:15 Insulin Human Lispro (HumaLOG) 0-9 UNITS TIDWMEALS 01/09/19 12:00 Lactobacillus Rhamnosus (Culturelle) 1 cap BID 01/08/19 21:00 01/09/19 09:29 DC Lactulose (LACTULOSE 300ML for RECTAL) 200 gm Q6HRS 01/09/19 12:00 01/09/19 11:04 DC Lactulose (Lactulose) 20 gm DAILY 01/09/19 11:30 01/11/19 07:53 20 GM Lidocaine HCl (Xylocaine 2% Topical 5gm Tube) 5 amanda STK-MED ONCE 01/07/19 12:00 01/08/19 14:20 DC Lorazepam (Ativan Inj) 4 mg PRN Q1HR PRN 01/08/19 07:15 Metoclopramide HCl (Reglan Vial) 10 mg PRN Q6HRS PRN 01/09/19 10:15 Midazolam HCl 100 ml @ 5 mls/hr CONT PRN 01/08/19 11:15 01/11/19 06:08 12 MLS/HR Midazolam HCl (Versed) 5 mg 1X ONCE 01/08/19 09:45 01/08/19 09:46 DC 01/08/19 09:41 5 MG Morphine Sulfate (Morphine Sulfate) 2 mg PRN Q2HR PRN 01/08/19 09:15 Multivitamins 10 ml/Thiamine HCl 100 mg/Folic Acid 1 mg/Sodium Chloride 1,011.2 ml @ 100 mls/ hr DAILY 01/08/19 09:00 01/12/19 19:07 01/11/19 08:49 100 MLS/HR Naloxone HCl (Narcan) 0.4 mg PRN Q2MIN PRN 01/08/19 09:00 Norepinephrine Bitartrate 250 ml @ 18.938 mls/ hr CONT PRN 01/09/19 01:45 01/09/19 01:00 18.938 MLS/HR Octreotide Acetate 500 mcg/ Sodium Chloride 101 ml @ 0 mls/hr CONT PRN 01/08/19 09:00 01/08/19 16:55 DC 01/08/19 13:56 10.1 MLS/HR Ondansetron HCl (Zofran) 4 mg PRN Q6HRS PRN 01/08/19 09:15 Pantoprazole Sodium (PROTONIX VIAL for IV PUSH) 40 mg DAILYAC 01/10/19 07:30 01/11/19 07:53 40 MG Pantoprazole Sodium 80 mg/ Sodium Chloride 100 ml @ 10 mls/hr Q10H 01/08/19 06:00 01/09/19 11:00 DC 01/09/19 02:00 10 MLS/HR Phytonadione (Vitamin K Ampule) 10 mg 1X ONCE 01/08/19 09:15 01/08/19 09:16 DC 01/08/19 09:56 10 MG Piperacillin Sod/ Tazobactam Sod (Zosyn Per Pharmacy) 1 each PRN DAILY PRN 01/07/19 21:00 Piperacillin Sod/ Tazobactam Sod 3.375 gm/Sodium Chloride 50 ml @ 100 mls/hr Q6HRS 01/07/19 22:00 01/11/19 06:09 100 MLS/HR Potassium Bicarbonate (Potassium Effervescent Tablet) 40 meq BIDWMEALS 01/10/19 09:00 01/11/19 09:20 DC 01/10/19 17:49 40 MEQ Potassium Chloride/Sodium Chloride 1,000 ml @ 75 mls/hr 1X ONCE 01/07/19 21:30 01/08/19 10:49 DC 01/07/19 21:16 75 MLS/HR Potassium Chloride (Klor-Con) 40 meq 1X ONCE 01/09/19 09:45 01/09/19 09:46 DC 01/09/19 11:34 40 MEQ Propofol 100 ml @ 1.524 mls/ hr CONT PRN 01/08/19 09:45 01/11/19 06:36 15.245 MLS/HR Sodium Bicarbonate (Sodium Bicarb Adult 8.4% Syr) 50 meq 1X ONCE 01/08/19 08:00 01/08/19 08:01 DC 01/08/19 08:04 50 MEQ Sodium Chloride 1,000 ml @ 25 mls/hr Q24H 01/08/19 08:54 01/11/19 07:56 25 MLS/HR Succinylcholine Chloride (Anectine) 200 mg 1X ONCE 01/08/19 09:45 01/08/19 09:46 DC 01/08/19 09:41 200 MG Tramadol HCl (Ultram) 50 mg PRN Q6HRS PRN 01/08/19 09:15 Vancomycin HCl (Vanco Per Pharmacy) 1 each PRN DAILY PRN 01/07/19 21:00 01/08/19 06:39 DC 01/08/19 00:43 1 EACH Vancomycin HCl (Vancomycin Trough Level) 1 each 1X ONCE 01/09/19 09:30 01/09/19 09:31 Cancel Vancomycin HCl 1.5 gm/Sodium Chloride 500 ml @ 250 mls/hr Q12H 01/08/19 10:00 01/08/19 06:39 DC Vancomycin HCl 2 gm/Sodium Chloride 500 ml @ 250 mls/hr 1X ONCE 01/07/19 22:00 01/07/19 23:59 DC 01/07/19 22:11 250 MLS/HR Vecuronium [place] (Norcuron Bolus) 6 mg PRN Q4HRS PRN 01/08/19 12:00 01/10/19 15:59 6 MG Lab Laboratory Tests Test 01/11/19 04:30 01/11/19 08:26 01/11/19 09:00 Sodium Level 141 mmol/L (136-145) Potassium Level 4.5 mmol/L (3.5-5.1) Chloride Level 107 mmol/L (98-107) Carbon Dioxide Level 26 mmol/L (21-32) Anion Gap 8 (6-14) Blood Urea Nitrogen 43 mg/dL (8-26) Creatinine 1.0 mg/dL (0.7-1.3) Estimated GFR (Cockcroft-Gault) 83.6 Glucose Level 86 mg/dL (70-99) Calcium Level 6.9 mg/dL (8.5-10.1) White Blood Count 19.2 x10^3/uL (4.0-11.0) Red Blood Count 2.68 x10^6/uL (4.30-5.70) Hemoglobin 9.0 g/dL (13.0-17.5) Hematocrit 26.4 % (39.0-53.0) Mean Corpuscular Volume 98 fL (79-100) Mean Corpuscular Hemoglobin 34 pg (25-35) Mean Corpuscular Hemoglobin Concent 34 g/dL (31-37) Red Cell Distribution Width 16.3 % (11.5-14.5) Platelet Count 213 x10^3/uL (140-400) Neutrophils (%) (Auto) 73 % (31-73) Lymphocytes (%) (Auto) 18 % (24-48) Monocytes (%) (Auto) 8 % (0-9) Eosinophils (%) (Auto) 1 % (0-3) Basophils (%) (Auto) 0 % (0-3) Neutrophils # (Auto) 14.1 x10^3/uL (1.8-7.7) Lymphocytes # (Auto) 3.5 x10^3/uL (1.0-4.8) Monocytes # (Auto) 1.4 x10^3/uL (0.0-1.1) Eosinophils # (Auto) 0.1 x10^3/uL (0.0-0.7) Basophils # (Auto) 0.1 x10^3/uL (0.0-0.2) Segmented Neutrophils % 71 % (35-66) Band Neutrophils % 11 % (0-9) Lymphocytes % 10 % (24-48) Monocytes % 4 % (0-10) Metamyelocytes % 2 % (0-0) Myelocytes % 2 % (0-0) Nucleated Red Blood Cells 9 Toxic Granulation Slight Toxic Vacuolation Mod Dohle Bodies Few Platelet Estimate Adequate (ADEQUATE) Polychromasia Present Ammonia 49 mcmol/L (11-34) Procalcitonin 2.78 ng/mL (0.00-0.10) O2 Saturation 88 % (92-99) Arterial Blood pH 7.45 (7.35-7.45) Arterial Blood pCO2 at Patient Temp 44 mmHg (35-46) Arterial Blood pO2 at Patient Temp 56 mmHg (85-108) Arterial Blood HCO3 30 mmol/L (21-28) Arterial Blood Base Excess 5 mmol/L (-3-3) FiO2 70 Results All relevant outside records, renal labs, imaging studies, telemetry/EKG's were reviewed. Other . Bilateral infiltrates have improved in the upper lobes but persist in the bases. GIANNI HAY MD Jan 11, 2019 12:00
[2019-01-11] MEDS ORDERED: PERFLUTREN PROTEIN-A MICROSPHR 0.22 MG/ML 3 ML VIAL. IV ONE (13:30)
--- NOTE | 2019-01-11 19:28 | NUR ---
Reassessment of Fentanyl not completed by another RN, documented as "not done" by this RN.
[2019-01-12] VITALS (24 sets, daily range): BP systolic 82–98; BP diastolic 41–55
[2019-01-12] MEDS: MIDAZOLAM 100mg/100ml NS BAG 100 ML IV PRN ×3 (01:39→17:57)
[2019-01-12] MEDS: PIPERACILLIN/TAZOBACTAM 3.375 GM in IV NORMAL SALINE 50ML 50 ML IV SCH ×5 (05:50→17:57)
[2019-01-12 06:55] LABS: BASO # 0.4 x10^3/uL (0.0-0.2); BASO % 2 % (0-3); EOS # 0.1 x10^3/uL (0.0-0.7); EOS % 1 % (0-3); HEMATOCRIT 29.2 % (39.0-53.0); HEMOGLOBIN 9.6 g/dL (13.0-17.5); LYMPH # 5.1 x10^3/uL (1.0-4.8); LYMPH % 21 % (24-48); MEAN CORPUSCULAR HEMOGLOBIN 33 pg (25-35); MEAN CORPUSCULAR HGB CONC 33 g/dL (31-37); MEAN CORPUSCULAR VOLUME 101 fL (79-100); MONO # 1.4 x10^3/uL (0.0-1.1); MONO % 6 % (0-9); NEUT # 17.4 x10^3/uL (1.8-7.7); NEUT % 71 % (31-73); PLATELET COUNT 211 x10^3/uL (140-400); RED CELL DISTRIBUTION WIDTH 16.8 % (11.5-14.5); WHITE BLOOD COUNT 24.5 x10^3/uL (4.0-11.0)
[2019-01-12 07:01] LABS: CALCIUM 6.9 mg/dL (8.5-10.1); CREATININE 1.8 mg/dL (0.7-1.3); GFR 42.4; POTASSIUM 4.4 mmol/L (3.5-5.1)
[2019-01-12 07:29] LABS: % BANDS 13 % (0-9); % EOS 2 % (0-5); % LYMPHS 14 % (24-48); % METAS 3 % (0-0); % MONOS 5 % (0-10); % MYELOS 2 % (0-0); % SEGS 61 % (35-66); NUCLEATED RBC 1
[2019-01-12 07:30] LABS: ANISOCYTOSIS SLIGHT; PLT ESTIMATE ADEQUATE (ADEQUATE); POLYCHROMASIA SLIGHT; TOXIC GRANULATION MOD; TOXIC VACUOLATION SLIGHT
--- NOTE | 2019-01-12 07:36 | PDOC ---
Infectious Disease Note Subjective Subjective Sedated Orally intubated FiO2 70 PEEP 10 Tube feedings off ROS ROS unable to do Vital Sign Vital Signs Vital Signs Date Time Temp Pulse Resp B/P (MAP) Pulse Ox O2 Delivery O2 Flow Rate FiO2 01/12/19 06:00 110 18 90/52 (65) 95 Ventilator 01/12/19 04:00 100.1 100.1 Physical Exam PHYSICAL EXAM GENERAL: Orally intubated and sedated, mitts HEENT: Pupils equal, ETT and OGT NECK: Supple LUNGS: Clear anterior HEART: S1/S2. ABDOMEN: Obese, soft, hypoactive BS : - Pollard EXTREMITIES: Trace edema lower extremities bilaterally. LLE ecchymosis. SKIN: Warm to touch. No rash NEUROLOGIC: Sedated PIV s clean Labs Lab Laboratory Tests Test 01/11/19 08:26 01/11/19 09:00 01/12/19 06:20 White Blood Count 19.2 x10^3/uL (4.0-11.0) 24.5 x10^3/uL (4.0-11.0) Red Blood Count 2.68 x10^6/uL (4.30-5.70) 2.90 x10^6/uL (4.30-5.70) Hemoglobin 9.0 g/dL (13.0-17.5) 9.6 g/dL (13.0-17.5) Hematocrit 26.4 % (39.0-53.0) 29.2 % (39.0-53.0) Mean Corpuscular Volume 98 fL (79-100) 101 fL (79-100) Mean Corpuscular Hemoglobin 34 pg (25-35) 33 pg (25-35) Mean Corpuscular Hemoglobin Concent 34 g/dL (31-37) 33 g/dL (31-37) Red Cell Distribution Width 16.3 % (11.5-14.5) 16.8 % (11.5-14.5) Platelet Count 213 x10^3/uL (140-400) 211 x10^3/uL (140-400) Neutrophils (%) (Auto) 73 % (31-73) 71 % (31-73) Lymphocytes (%) (Auto) 18 % (24-48) 21 % (24-48) Monocytes (%) (Auto) 8 % (0-9) 6 % (0-9) Eosinophils (%) (Auto) 1 % (0-3) 1 % (0-3) Basophils (%) (Auto) 0 % (0-3) 2 % (0-3) Neutrophils # (Auto) 14.1 x10^3/uL (1.8-7.7) 17.4 x10^3/uL (1.8-7.7) Lymphocytes # (Auto) 3.5 x10^3/uL (1.0-4.8) 5.1 x10^3/uL (1.0-4.8) Monocytes # (Auto) 1.4 x10^3/uL (0.0-1.1) 1.4 x10^3/uL (0.0-1.1) Eosinophils # (Auto) 0.1 x10^3/uL (0.0-0.7) 0.1 x10^3/uL (0.0-0.7) Basophils # (Auto) 0.1 x10^3/uL (0.0-0.2) 0.4 x10^3/uL (0.0-0.2) Segmented Neutrophils % 71 % (35-66) Band Neutrophils % 11 % (0-9) Lymphocytes % 10 % (24-48) Monocytes % 4 % (0-10) Metamyelocytes % 2 % (0-0) Myelocytes % 2 % (0-0) Nucleated Red Blood Cells 9 Toxic Granulation Slight Toxic Vacuolation Mod Dohle Bodies Few Platelet Estimate Adequate (ADEQUATE) Polychromasia Present Ammonia 49 mcmol/L (11-34) Procalcitonin 2.78 ng/mL (0.00-0.10) O2 Saturation 88 % (92-99) Arterial Blood pH 7.45 (7.35-7.45) Arterial Blood pCO2 at Patient Temp 44 mmHg (35-46) Arterial Blood pO2 at Patient Temp 56 mmHg (85-108) Arterial Blood HCO3 30 mmol/L (21-28) Arterial Blood Base Excess 5 mmol/L (-3-3) FiO2 70 Sodium Level 146 mmol/L (136-145) Potassium Level 4.4 mmol/L (3.5-5.1) Chloride Level 109 mmol/L (98-107) Carbon Dioxide Level 29 mmol/L (21-32) Anion Gap 8 (6-14) Blood Urea Nitrogen 59 mg/dL (8-26) Creatinine 1.8 mg/dL (0.7-1.3) Estimated GFR (Cockcroft-Gault) 42.4 Glucose Level 85 mg/dL (70-99) Calcium Level 6.9 mg/dL (8.5-10.1) Micro Microbiology 01/08/19 Blood Culture - Preliminary, Resulted NO GROWTH AFTER 3 DAYS 01/08/19 Urine Culture - Final, Complete 01/08/19 Urine Culture Result 1 (ELMA) - Final, Complete Objective Assessment Hypotension - off pressors Fever - curve improving ? ID vs PRBCs vs reactive vs Withdrawl Leukocytosis - ? reactive, improved Lactic acidosis - better Resp failure now intubated ? UTI. cultures neg Anemia - s/p PRBCs GI Bleed - s/p EGD 01/08 - Reflux esophagitis. ? recent M-W tear. Alcoholic gastritis. DOMONIQUE Transaminitis - better Hep C ? pancreatitis Rhabdo CK 965 ETOH abuse with mild ascites Electrolyte abnormalities Obstructive resp issues Left leg echymosis Plan Plan of Care Cont Zosyn. and zyvox Procalcitonin 4.70 Sputum culture in process today's labs pending need albumin to improve renal perfusion Critically ill LETTY ALEXIS MD Jan 12, 2019 07:36
[2019-01-12] MEDS ORDERED: ALBUMIN HUMAN 25% 100 ML IV ONE (07:45)
--- NOTE | 2019-01-12 07:54 | CARD ---
MR#: [id number] Date of Study: 01/11/2019 Ordering Physician: MAIK GUNN, Referring Physician: MAIK GUNN Tech: Laurel Pereyra [facility] APPROVED REPORT EXAM: Two-dimensional and M-mode echocardiogram with Doppler and color Doppler. Other Information Quality : AverageHR: 105bpm Rhythm : NSRTachycardia INDICATION Hypertension/HCVD Echo Enhancing Agent Indication: Endocardial border delineation Agent/Amount Used: Optison 2mL RISK FACTORS Hypertension Smoking LEFT VENTRICLE The left ventricle is normal size. There is mild concentric left ventricular hypertrophy. The left ve ntricular systolic function is normal and the ejection fraction is within normal range. Estimated eje ction fraction is 53%. There is normal LV segmental wall motion. RIGHT VENTRICLE The right ventricle is normal size. The right ventricular systolic function is normal. ATRIA The left atrium size is normal. The right atrium size is normal. The interatrial septum is intact wit h no evidence for an atrial septal defect or patent foramen ovale as noted on 2-D or Doppler imaging. AORTIC VALVE The aortic valve is normal in structure and function. Doppler and Color Flow revealed no significant aortic regurgitation. There is no significant aortic valvular stenosis. MITRAL VALVE The mitral valve is normal in structure and function. There is no evidence of mitral valve prolapse. There is no mitral valve stenosis. TRICUSPID VALVE The tricuspid valve is normal in structure and function. Doppler and Color Flow revealed no tricuspid valve regurgitation noted. There is no tricuspid valve stenosis. PULMONIC VALVE Doppler and Color Flow revealed trace pulmonic valvular regurgitation. There is no pulmonic valvular stenosis. GREAT VESSELS The aortic root is normal in size. The ascending aorta is normal in size. The IVC is normal in size a nd collapses >50% with inspiration. PERICARDIAL EFFUSION There is no evidence of significant pericardial effusion. Critical Notification Critical Value: No <Conclusion> The left ventricular systolic function is normal and the ejection fraction is within normal range. E stimated ejection fraction is 53%. There is normal LV segmental wall motion. Signed by : Yogesh Quinn, Electronically Approved : 01/12/2019 07:54:12
[2019-01-12] MEDS: INSULIN LISPRO 300 UNITS/3 ML VIAL. SQ SCH ×3 (08:00→17:00)
[2019-01-12 08:08] LABS: BASE EXCESS ABG 2 mmol/L (-3-3); HCO3 ABG 27 mmol/L (21-28); PCO2 ABG 41 mmHg (35-46); PO2 ABG 53 mmHg (85-108); SAT O2 ABG 85 % (92-99)
[2019-01-12] MEDS: PANTOPRAZOLE IV PUSH 40 MG VIAL. IVP SCH (08:24)
[2019-01-12] MEDS: LACTULOSE 20 GM/30 ML SOLUTION. PO SCH (08:24)
--- NOTE | 2019-01-12 08:34 | RAD ---
Indication: Respiratory failure TECHNIQUE:Portable AP chest X-ray COMPARISON: 01/11/2019 FINDINGS: Stable position of ET tube, NG tube. Heart is mildly enlarged in size. Diffuse bilateral interstitial opacities are seen. There is blunting of the left hemidiaphragm. No pneumothorax. Visualized bony thorax within normal limits. IMPRESSION: Findings of interstitial pulmonary edema or multifocal infection. Silhouetting of the left hemidiaphragm may be secondary to consolidation which may be from atelectasis or pneumonia. Electronically signed by: Rogelio Jackson DO (01/12/2019 8:31 AM) [facility]
[2019-01-12 08:58] LABS: INFLUENZA A PATIENT NEGATIVE (NEGATIVE); INFLUENZA B PATIENT NEGATIVE (NEGATIVE)
[2019-01-12 09:06] LABS: FIO2 ABG 80
--- NOTE | 2019-01-12 09:18 | PDOC ---
PROGRESS NOTES Chief Complaint Chief Complaint Acute respi falure, IPPV - 01.08, fluid overload? vs Atypical infection HEMATEMESIS in A HEAVY DRINKER -Atrophic gastritis, ?MW tear BUT NO ACTIVE GIB - s.po STAT EGD 01/08 SEVERE PCM - albumin 1,7 -s/p albumin 01/09 - off pressors by 01/10 MInimal ascites - by US and CT HYPOTENSION, s/p, pressors standby, albumin, blood products if needed Coagulopathy - s/p vit K, HEPATIC enceph - ammonia midly high 60-90s - lactulose,MT HIGH residuals TRAMSAMINITIS with ELEVATED TB- per GI (TB 9), AST 300s-500s HEp C antibody positive LEft leg bruise, in this coagulopathic anemic pt sec to fall 2 weeks ago - monitor ELEAVTED AGAP acidosis, renal consulted, can check PH in ABG - better History of Present Illness History of Present Illness Mr Ballard is a 38 yo M w/ PMHx heavy ETOH abuse admitted with massive hematemesis on 01/07/19, was emergently intubated and admitted to ICU. S/p EGD, no active GIB, poss MW, atrophic gastritis, off SANDOSTATIN, CONT PPI gtt, SCDS. AMMONIA 60-90s - started lactulose, qdaily per GI, HEp c AB positive - negative PCR HIGH GASTRIC RESIDUALS 01/10/19, had to stop TF Intubated, sedated - needed to vecuronium per RN PEEP 10, Fi O2 100% - was not ready to extubate weekend. CXR shows more edema, Echo shows no valvular or pressure abnormalities, off pressor since 01/09, UO ok but Cr up to 1.8 today. D/w and mother bedside PLAN re start TFs slow KUB Albumin x1 now Cards, pulmo, GI, nephrology on case NO bleeding so far since admission Will need to d/w nephrology with Cr elevation and pulmonary edema, progostically this is a poor sign cc ill prog guarded, mentation might be a problem in extubating in this alcoholic CC time 47 minutes Vitals Vitals Vital Signs Date Time Temp Pulse Resp B/P (MAP) Pulse Ox O2 Delivery O2 Flow Rate FiO2 01/12/19 07:56 92 Ventilator 01/12/19 06:00 110 18 90/52 (65) 01/12/19 04:00 100.1 100.1 Physical Exam Physical Exam GENERAL: Orally intubated and sedated, mitts HEENT: Pupils equal, ETT and OGT ABDOMEN: Obese, soft, hypoactive BS : - Poll[place] EXTREMITIES: Trace edema lower extremities bilaterally. LLE ecchymosis. SKIN: Warm to touch. No rash NEUROLOGIC: Sedated PIV s clean General: Other (tachypneic 30s) Heart: Regular rate, Normal S1, Normal S2 Lungs: Crackles Abdomen: Soft, No tenderness, Other (pot belly possible fluid wave) Extremities: No clubbing, No cyanosis, Normal pulses, Other (left leg is bruised from a fall 2-3 weeks ago) Labs LABS Laboratory Tests Test 01/12/19 06:20 01/12/19 08:00 01/12/19 08:20 White Blood Count 24.5 x10^3/uL (4.0-11.0) Red Blood Count 2.90 x10^6/uL (4.30-5.70) Hemoglobin 9.6 g/dL (13.0-17.5) Hematocrit 29.2 % (39.0-53.0) Mean Corpuscular Volume 101 fL (79-100) Mean Corpuscular Hemoglobin 33 pg (25-35) Mean Corpuscular Hemoglobin Concent 33 g/dL (31-37) Red Cell Distribution Width 16.8 % (11.5-14.5) Platelet Count 211 x10^3/uL (140-400) Neutrophils (%) (Auto) 71 % (31-73) Lymphocytes (%) (Auto) 21 % (24-48) Monocytes (%) (Auto) 6 % (0-9) Eosinophils (%) (Auto) 1 % (0-3) Basophils (%) (Auto) 2 % (0-3) Neutrophils # (Auto) 17.4 x10^3/uL (1.8-7.7) Lymphocytes # (Auto) 5.1 x10^3/uL (1.0-4.8) Monocytes # (Auto) 1.4 x10^3/uL (0.0-1.1) Eosinophils # (Auto) 0.1 x10^3/uL (0.0-0.7) Basophils # (Auto) 0.4 x10^3/uL (0.0-0.2) Segmented Neutrophils % 61 % (35-66) Band Neutrophils % 13 % (0-9) Lymphocytes % 14 % (24-48) Monocytes % 5 % (0-10) Eosinophils % 2 % (0-5) Metamyelocytes % 3 % (0-0) Myelocytes % 2 % (0-0) Nucleated Red Blood Cells 1 Toxic Granulation Mod Toxic Vacuolation Slight Platelet Estimate Adequate (ADEQUATE) Polychromasia Slight Anisocytosis Slight Sodium Level 146 mmol/L (136-145) Potassium Level 4.4 mmol/L (3.5-5.1) Chloride Level 109 mmol/L (98-107) Carbon Dioxide Level 29 mmol/L (21-32) Anion Gap 8 (6-14) Blood Urea Nitrogen 59 mg/dL (8-26) Creatinine 1.8 mg/dL (0.7-1.3) Estimated GFR (Cockcroft-Gault) 42.4 Glucose Level 85 mg/dL (70-99) Calcium Level 6.9 mg/dL (8.5-10.1) O2 Saturation 85 % (92-99) Arterial Blood pH 7.44 (7.35-7.45) Arterial Blood pCO2 at Patient Temp 41 mmHg (35-46) Arterial Blood pO2 at Patient Temp 53 mmHg (85-108) Arterial Blood HCO3 27 mmol/L (21-28) Arterial Blood Base Excess 2 mmol/L (-3-3) FiO2 80 Influenza Type A Antigen Negative (NEGATIVE) Influenza Type B Antigen Negative (NEGATIVE) Assessment and Plan Assessmemt and Plan Problems Medical Problems: (1) Acute hepatic encephalopathy Status: Acute (2) Acute upper GI bleed Status: Acute (3) Ascites Status: Acute (4) Hypokalemia Status: Acute (5) Multiple organ system failure Status: Acute (6) Severe sepsis with acute organ dysfunction Status: Acute Comment Review of Relevant I have reviewed the following items karen (where applicable) has been applied. Labs Laboratory Tests Test 01/11/19 04:30 01/11/19 08:26 01/11/19 09:00 01/12/19 06:20 Sodium Level 141 mmol/L (136-145) 146 mmol/L (136-145) Potassium Level 4.5 mmol/L (3.5-5.1) 4.4 mmol/L (3.5-5.1) Chloride Level 107 mmol/L (98-107) 109 mmol/L (98-107) Carbon Dioxide Level 26 mmol/L (21-32) 29 mmol/L (21-32) Anion Gap 8 (6-14) 8 (6-14) Blood Urea Nitrogen 43 mg/dL (8-26) 59 mg/dL (8-26) Creatinine 1.0 mg/dL (0.7-1.3) 1.8 mg/dL (0.7-1.3) Estimated GFR (Cockcroft-Gault) 83.6 42.4 Glucose Level 86 mg/dL (70-99) 85 mg/dL (70-99) Calcium Level 6.9 mg/dL (8.5-10.1) 6.9 mg/dL (8.5-10.1) White Blood Count 19.2 x10^3/uL (4.0-11.0) 24.5 x10^3/uL (4.0-11.0) Red Blood Count 2.68 x10^6/uL (4.30-5.70) 2.90 x10^6/uL (4.30-5.70) Hemoglobin 9.0 g/dL (13.0-17.5) 9.6 g/dL (13.0-17.5) Hematocrit 26.4 % (39.0-53.0) 29.2 % (39.0-53.0) Mean Corpuscular Volume 98 fL (79-100) 101 fL (79-100) Mean Corpuscular Hemoglobin 34 pg (25-35) 33 pg (25-35) Mean Corpuscular Hemoglobin Concent 34 g/dL (31-37) 33 g/dL (31-37) Red Cell Distribution Width 16.3 % (11.5-14.5) 16.8 % (11.5-14.5) Platelet Count 213 x10^3/uL (140-400) 211 x10^3/uL (140-400) Neutrophils (%) (Auto) 73 % (31-73) 71 % (31-73) Lymphocytes (%) (Auto) 18 % (24-48) 21 % (24-48) Monocytes (%) (Auto) 8 % (0-9) 6 % (0-9) Eosinophils (%) (Auto) 1 % (0-3) 1 % (0-3) Basophils (%) (Auto) 0 % (0-3) 2 % (0-3) Neutrophils # (Auto) 14.1 x10^3/uL (1.8-7.7) 17.4 x10^3/uL (1.8-7.7) Lymphocytes # (Auto) 3.5 x10^3/uL (1.0-4.8) 5.1 x10^3/uL (1.0-4.8) Monocytes # (Auto) 1.4 x10^3/uL (0.0-1.1) 1.4 x10^3/uL (0.0-1.1) Eosinophils # (Auto) 0.1 x10^3/uL (0.0-0.7) 0.1 x10^3/uL (0.0-0.7) Basophils # (Auto) 0.1 x10^3/uL (0.0-0.2) 0.4 x10^3/uL (0.0-0.2) Segmented Neutrophils % 71 % (35-66) 61 % (35-66) Band Neutrophils % 11 % (0-9) 13 % (0-9) Lymphocytes % 10 % (24-48) 14 % (24-48) Monocytes % 4 % (0-10) 5 % (0-10) Metamyelocytes % 2 % (0-0) 3 % (0-0) Myelocytes % 2 % (0-0) 2 % (0-0) Nucleated Red Blood Cells 9 1 Toxic Granulation Slight Mod Toxic Vacuolation Mod Slight Dohle Bodies Few Platelet Estimate Adequate (ADEQUATE) Adequate (ADEQUATE) Polychromasia Present Slight Ammonia 49 mcmol/L (11-34) Procalcitonin 2.78 ng/mL (0.00-0.10) O2 Saturation 88 % (92-99) Arterial Blood pH 7.45 (7.35-7.45) Arterial Blood pCO2 at Patient Temp 44 mmHg (35-46) Arterial Blood pO2 at Patient Temp 56 mmHg (85-108) Arterial Blood HCO3 30 mmol/L (21-28) Arterial Blood Base Excess 5 mmol/L (-3-3) FiO2 70 Eosinophils % 2 % (0-5) Anisocytosis Slight Test 01/12/19 08:00 01/12/19 08:20 O2 Saturation 85 % (92-99) Arterial Blood pH 7.44 (7.35-7.45) Arterial Blood pCO2 at Patient Temp 41 mmHg (35-46) Arterial Blood pO2 at Patient Temp 53 mmHg (85-108) Arterial Blood HCO3 27 mmol/L (21-28) Arterial Blood Base Excess 2 mmol/L (-3-3) FiO2 80 Influenza Type A Antigen Negative (NEGATIVE) Influenza Type B Antigen Negative (NEGATIVE) Laboratory Tests Test 01/12/19 06:20 01/12/19 08:00 01/12/19 08:20 White Blood Count 24.5 x10^3/uL (4.0-11.0) Red Blood Count 2.90 x10^6/uL (4.30-5.70) Hemoglobin 9.6 g/dL (13.0-17.5) Hematocrit 29.2 % (39.0-53.0) Mean Corpuscular Volume 101 fL (79-100) Mean Corpuscular Hemoglobin 33 pg (25-35) Mean Corpuscular Hemoglobin Concent 33 g/dL (31-37) Red Cell Distribution Width 16.8 % (11.5-14.5) Platelet Count 211 x10^3/uL (140-400) Neutrophils (%) (Auto) 71 % (31-73) Lymphocytes (%) (Auto) 21 % (24-48) Monocytes (%) (Auto) 6 % (0-9) Eosinophils (%) (Auto) 1 % (0-3) Basophils (%) (Auto) 2 % (0-3) Neutrophils # (Auto) 17.4 x10^3/uL (1.8-7.7) Lymphocytes # (Auto) 5.1 x10^3/uL (1.0-4.8) Monocytes # (Auto) 1.4 x10^3/uL (0.0-1.1) Eosinophils # (Auto) 0.1 x10^3/uL (0.0-0.7) Basophils # (Auto) 0.4 x10^3/uL (0.0-0.2) Segmented Neutrophils % 61 % (35-66) Band Neutrophils % 13 % (0-9) Lymphocytes % 14 % (24-48) Monocytes % 5 % (0-10) Eosinophils % 2 % (0-5) Metamyelocytes % 3 % (0-0) Myelocytes % 2 % (0-0) Nucleated Red Blood Cells 1 Toxic Granulation Mod Toxic Vacuolation Slight Platelet Estimate Adequate (ADEQUATE) Polychromasia Slight Anisocytosis Slight Sodium Level 146 mmol/L (136-145) Potassium Level 4.4 mmol/L (3.5-5.1) Chloride Level 109 mmol/L (98-107) Carbon Dioxide Level 29 mmol/L (21-32) Anion Gap 8 (6-14) Blood Urea Nitrogen 59 mg/dL (8-26) Creatinine 1.8 mg/dL (0.7-1.3) Estimated GFR (Cockcroft-Gault) 42.4 Glucose Level 85 mg/dL (70-99) Calcium Level 6.9 mg/dL (8.5-10.1) O2 Saturation 85 % (92-99) Arterial Blood pH 7.44 (7.35-7.45) Arterial Blood pCO2 at Patient Temp 41 mmHg (35-46) Arterial Blood pO2 at Patient Temp 53 mmHg (85-108) Arterial Blood HCO3 27 mmol/L (21-28) Arterial Blood Base Excess 2 mmol/L (-3-3) FiO2 80 Influenza Type A Antigen Negative (NEGATIVE) Influenza Type B Antigen Negative (NEGATIVE) Microbiology 01/08/19 Blood Culture - Preliminary, Resulted NO GROWTH AFTER 3 DAYS 01/08/19 Urine Culture - Final, Complete 01/08/19 Urine Culture Result 1 (ELMA) - Final, Complete Medications Current Medications Sodium Chloride 1,000 ml @ 1,000 mls/hr 1X ONCE IV Last administered on 01/07/19at 19:27; Start 01/07/19 at 19:30; Stop 01/07/19 at 20:29; Status DC Ondansetron HCl (Zofran) 4 mg 1X ONCE IV Last administered on 01/07/19at 19:28; Start 01/07/19 at 19:30; Stop 01/07/19 at 19:31; Status DC Pantoprazole Sodium (PROTONIX VIAL for IV PUSH) 80 mg 1X ONCE IVP Last administered on 01/07/19at 19:50; Start 01/07/19 at 20:00; Stop 01/07/19 at 20:01; Status DC Pantoprazole Sodium 80 mg/ Sodium Chloride 100 ml @ 10 mls/hr 1X ONCE IV Last administered on 01/07/19at 20:00; Start 01/07/19 at 20:00; Stop 01/08/19 at 05:59; Status DC Sodium Chloride 1,000 ml @ 1,000 mls/hr 1X ONCE IV Last administered on 01/07/19at 22:12; Start 01/07/19 at 21:00; Stop 01/07/19 at 21:59; Status DC Sodium Chloride 1,000 ml @ 1,000 mls/hr 1X ONCE IV Last administered on 01/07/19at 20:40; Start 01/07/19 at 20:45; Stop 01/07/19 at 21:44; Status DC Potassium Chloride/Sodium Chloride 1,000 ml @ 75 mls/hr 1X ONCE IV Last administered on 01/07/19at 21:16; Start 01/07/19 at 21:30; Stop 01/08/19 at 10:49; Status DC Vancomycin HCl (Vanco Per Pharmacy) 1 each PRN DAILY PRN MC SEE COMMENTS Last administered on 01/08/19at 00:43; Start 01/07/19 at 21:00; Stop 01/08/19 at 06:39; Status DC Piperacillin Sod/ Tazobactam Sod (Zosyn Per Pharmacy) 1 each PRN DAILY PRN MC SEE COMMENTS; Start 01/07/19 at 21:00 Piperacillin Sod/ Tazobactam Sod 3.375 gm/Sodium Chloride 50 ml @ 100 mls/hr Q6HRS IV Last administered on 01/12/19at 05:50; Start 01/07/19 at 22:00 Vancomycin HCl 2 gm/Sodium Chloride 500 ml @ 250 mls/hr 1X ONCE IV Last administered on 01/07/19at 22:11; Start 01/07/19 at 22:00; Stop 01/07/19 at 23:59; Status DC Lorazepam (Ativan Inj) 1 mg 1X ONCE IV Last administered on 01/07/19at 23:22; Start 01/07/19 at 23:30; Stop 01/07/19 at 23:31; Status DC Lorazepam (Ativan Inj) 2 mg STK-MED ONCE .ROUTE ; Start 01/07/19 at 23:20; Stop 01/07/19 at 23:21; Status DC Vancomycin HCl 1.5 gm/Sodium Chloride 500 ml @ 250 mls/hr Q12H IV ; Start 01/08/19 at 10:00; Stop 01/08/19 at 06:39; Status DC Vancomycin HCl (Vancomycin Trough Level) 1 each 1X ONCE MC ; Start 01/09/19 at 09:30; Stop 01/09/19 at 09:31; Status Cancel Ondansetron HCl (Zofran) 4 mg PRN Q6HRS PRN IVP NAUSEA/VOMITING; Start 01/08/19 at 04:00; Status Cancel Pantoprazole Sodium 80 mg/ Sodium Chloride 100 ml @ 10 mls/hr Q10H IV Last administered on 01/09/19at 02:00; Start 01/08/19 at 06:00; Stop 01/09/19 at 11:00; Status DC Multivitamins 10 ml/Thiamine HCl 100 mg/Folic Acid 1 mg/Sodium Chloride 1,011.2 ml @ 100 mls/ hr DAILY IV Last administered on 01/11/19at 08:49; Start 01/08/19 at 09:00; Stop 01/12/19 at 19:07 Lorazepam (Ativan Inj) 2 mg PRN Q1HR PRN IV For CIWA 8-14 Last administered on 01/09/19at 22:24; Start 01/08/19 at 07:15 Lorazepam (Ativan Inj) 4 mg PRN Q1HR PRN IV For CIWA 15 or greater; Start 01/08/19 at 07:15 Haloperidol Lactate (Haldol Inj) 5 mg PRN Q4HRS PRN IVP Hallucinatns,Confusn,Delirium; Start 01/08/19 at 07:15 Diphenhydramine HCl (Benadryl) 25 mg PRN Q15MIN PRN IVP EPS symptoms 2'Haldol admin; Start 01/08/19 at 07:15 Clonidine HCl (Catapres) 0.1 mg PRN Q1HR PRN PO SBP > 180 or DBP > 100, MRX3; Start 01/08/19 at 07:15 Sodium Bicarbonate (Sodium Bicarb Adult 8.4% Syr) 50 meq 1X ONCE IV Last administered on 01/08/19at 08:04; Start 01/08/19 at 08:00; Stop 01/08/19 at 08:01; Status DC Propofol 100 ml @ As Directed STK-MED ONCE IV ; Start 01/08/19 at 08:19; Stop 01/08/19 at 08:19; Status DC Succinylcholine Chloride (Anectine) 200 mg STK-MED ONCE .ROUTE ; Start 01/08/19 at 08:19; Stop 01/08/19 at 08:19; Status DC Propofol 100 ml @ As Directed STK-MED ONCE IV ; Start 01/08/19 at 08:29; Stop 01/08/19 at 08:30; Status DC Fentanyl Citrate 30 ml @ 0 mls/hr CONT PRN PRN IV PER PROTOCOL Last administered on 01/12/19at 03:30; Start 01/08/19 at 09:00 Naloxone HCl (Narcan) 0.4 mg PRN Q2MIN PRN IV SEE INSTRUCTIONS; Start 01/08/19 at 09:00 Sodium Chloride 1,000 ml @ 25 mls/hr Q24H IV Last administered on 01/11/19at 07:56; Start 01/08/19 at 08:54 Fentanyl Citrate (Fentanyl 2ml Vial) 100 mcg STK-MED ONCE .ROUTE ; Start 01/08/19 at 08:55; Stop 01/08/19 at 08:55; Status DC Octreotide Acetate 500 mcg/ Sodium Chloride 101 ml @ 0 mls/hr CONT PRN IV SEE I/O RECORD Last administered on 01/08/19at 13:56; Start 01/08/19 at 09:00; Stop 01/08/19 at 16:55; Status DC Phytonadione (Vitamin K Ampule) 10 mg 1X ONCE SQ Last administered on 01/08/19at 09:56; Start 01/08/19 at 09:15; Stop 01/08/19 at 09:16; Status DC Metoclopramide HCl (Reglan Vial) 10 mg 1X ONCE IVP Last administered on 01/08/19at 14:36; Start 01/08/19 at 11:00; Stop 01/08/19 at 11:01; Status DC Midazolam HCl (Versed) 5 mg STK-MED ONCE .ROUTE ; Start 01/08/19 at 09:00; Stop 01/08/19 at 09:01; Status DC Acetaminophen (Tylenol) 500 mg PRN Q6HRS PRN PO MILD PAIN / TEMP Last administered on 01/11/19 17:46; Start 01/08/19 at 09:15 Tramadol HCl (Ultram) 50 mg PRN Q6HRS PRN PO PAIN MODERATE; Start 01/08/19 at 09:15 Morphine Sulfate (Morphine Sulfate) 2 mg PRN Q2HR PRN IV PAIN; Start 01/08/19 at 09:15 Ondansetron HCl (Zofran) 4 mg PRN Q6HRS PRN IVP NAUSEA/VOMITING; Start 01/08/19 at 09:15 Fentanyl Citrate (Fentanyl 2ml Vial) 100 mcg 1X ONCE IVP Last administered on 01/08/19at 09:42; Start 01/08/19 at 09:45; Stop 01/08/19 at 09:46; Status DC Midazolam HCl (Versed) 5 mg 1X ONCE IV Last administered on 01/08/19at 09:41; Start 01/08/19 at 09:45; Stop 01/08/19 at 09:46; Status DC Succinylcholine Chloride (Anectine) 200 mg 1X ONCE IV Last administered on 01/08/19at 09:41; Start 01/08/19 at 09:45; Stop 01/08/19 at 09:46; Status DC Propofol 100 ml @ 1.524 mls/ hr CONT PRN IV SEE I/O RECORD Last administered on 01/11/19at 20:00; Start 01/08/19 at 09:45 Midazolam HCl 100 ml @ 5 mls/hr CONT PRN IV SEE I/O RECORD Last administered on 01/12/19at 08:53; Start 01/08/19 at 11:15 Vecuronium [place] (Norcuron Bolus) 6 mg PRN Q4HRS PRN IV VENT ASYNCHRONY Last administered on 01/10/19at 15:59; Start 01/08/19 at 12:00 Benzocaine (Hurricaine One) 2 spray STK-MED ONCE .ROUTE ; Start 01/07/19 at 12:00; Stop 01/08/19 at 14:20; Status DC Lidocaine HCl (Xylocaine 2% Topical 5gm Tube) 5 amanda STK-MED ONCE TP ; Start 01/07/19 at 12:00; Stop 01/08/19 at 14:20; Status DC Lactobacillus Rhamnosus (Culturelle) 1 cap BID PO ; Start 01/08/19 at 21:00; Stop 01/09/19 at 09:29; Status DC Acetaminophen (Tylenol Supp) 650 mg PRN Q6HRS PRN MT MILD PAIN / TEMP Last administered on 01/09/19at 23:44; Start 01/08/19 at 18:15 Norepinephrine Bitartrate 250 ml @ 18.938 mls/ hr CONT PRN IV SEE I/O RECORD Last administered on 01/09/19at 01:00; Start 01/09/19 at 01:45 Potassium Chloride (Klor-Con) 40 meq 1X ONCE PO Last administered on 01/09/19at 11:34; Start 01/09/19 at 09:45; Stop 01/09/19 at 09:46; Status DC Metoclopramide HCl (Reglan Vial) 10 mg PRN Q6HRS PRN IVP NAUSEA/VOMITING; Start 01/09/19 at 10:15 Albumin Human 100 ml @ 100 mls/hr 1X ONCE IV Last administered on 01/09/19at 10:49; Start 01/09/19 at 10:15; Stop 01/09/19 at 11:14; Status DC Lactulose (LACTULOSE 300ML for RECTAL) 200 gm Q6HRS MT ; Start 01/09/19 at 12:00; Stop 01/09/19 at 11:04; Status DC Insulin Human Lispro (HumaLOG) 0-9 UNITS TIDWMEALS SQ ; Start 01/09/19 at 12:00 Dextrose (Dextrose 50%-Water Syringe) 12.5 gm PRN Q15MIN PRN IV SEE COMMENTS; Start 01/09/19 at 10:30 Fentanyl Citrate (Fentanyl 600 Mcg/30 ml QUALITY [employer]OL SYSTEMS MANAGER) 600 mcg STK-MED ONCE IV ; Start 01/08/19 at 15:25; Stop 01/09/19 at 10:27; Status DC Pantoprazole Sodium (PROTONIX VIAL for IV PUSH) 40 mg DAILYAC IVP Last administered on 01/12/19at 08:24; Start 01/10/19 at 07:30 Lactulose (Lactulose) 20 gm DAILY PO Last administered on 01/12/19at 08:24; Start 01/09/19 at 11:30 Potassium Bicarbonate (Potassium Effervescent Tablet) 40 meq BIDWMEALS FT Last administered on 01/10/19at 17:49; Start 01/10/19 at 09:00; Stop 01/11/19 at 09:20; Status DC Linezolid/Dextrose 300 ml @ 300 mls/hr Q12HR IV Last administered on 01/12/19at 08:24; Start 01/11/19 at 13:00 Perflutren Protein Type A Microsphe (Optison) 0.66 mg 1X ONCE IV ; Start 01/11/19 at 13:30; Stop 01/11/19 at 13:31; Status DC Albumin Human 100 ml @ 100 mls/hr 1X ONCE IV Last administered on 01/12/19at 08:25; Start 01/12/19 at 07:45; Stop 01/12/19 at 08:44; Status DC Vitals/I & O Vital Sign - Last 24 Hours 01/11/19 01/11/19 01/11/19 01/11/19 10:00 10:37 11:00 11:07 Pulse 108 108 Resp 18 18 18 18 B/P (MAP) 110/60 (77) 106/60 (75) Pulse Ox 96 97 96 96 O2 Delivery Ventilator Ventilator Ventilator Ventilator 01/11/19 01/11/19 01/11/19 01/11/19 12:00 12:00 12:21 13:00 Temp 100.6 100.6 Pulse 108 105 Resp 18 19 B/P (MAP) 109/60 (76) 108/59 (75) Pulse Ox 96 96 93 O2 Delivery Mechanical Ventilator Ventilator Ventilator Ventilator 01/11/19 01/11/19 01/11/19 01/11/19 13:50 14:00 15:00 16:00 Pulse 109 110 Resp 22 21 B/P (MAP) 102/52 (69) 99/47 (64) Pulse Ox 90 92 92 O2 Delivery Ventilator Ventilator Ventilator Mechanical Ventilator 01/11/19 01/11/19 01/11/19 01/11/19 16:00 16:16 16:34 16:46 Temp 101.2 101.2 Pulse 108 Resp 18 18 18 B/P (MAP) 107/55 (72) Pulse Ox 94 92 93 94 O2 Delivery Ventilator Ventilator Ventilator Ventilator 01/11/19 01/11/19 01/11/19 01/11/19 17:00 18:00 18:13 19:00 Pulse 109 108 108 Resp 18 18 18 B/P (MAP) 112/47 (68) 105/50 (68) 97/47 (64) Pulse Ox 94 93 93 92 O2 Delivery Ventilator Ventilator Ventilator Ventilator 01/11/19 01/11/19 01/11/19 01/11/19 19:32 20:00 20:00 21:00 Temp 99.6 99.6 Pulse 106 105 Resp 18 18 B/P (MAP) 102/45 (64) 93/45 (61) Pulse Ox 92 93 92 O2 Delivery Ventilator Mechanical Ventilator Ventilator Ventilator 01/11/19 01/11/19 01/11/19 01/11/19 21:30 22:00 22:19 23:00 Pulse 103 104 Resp 20 20 B/P (MAP) 97/44 (61) 99/43 (61) Pulse Ox 92 92 92 93 O2 Delivery Ventilator Ventilator Ventilator Ventilator 01/12/19 01/12/19 01/12/19 01/12/19 00:00 00:00 00:05 01:00 Temp 98.9 98.9 Pulse 102 103 Resp 18 18 B/P (MAP) 91/50 (64) 95/54 (68) Pulse Ox 96 95 95 O2 Delivery Ventilator Mechanical Ventilator Ventilator Ventilator 01/12/19 01/12/19 01/12/19 01/12/19 02:00 02:30 03:00 04:00 Pulse 106 110 Resp 23 22 B/P (MAP) 96/53 (67) 93/53 (66) Pulse Ox 93 94 93 O2 Delivery Ventilator Ventilator Ventilator Mechanical Ventilator 01/12/19 01/12/19 01/12/19 01/12/19 04:00 04:25 05:00 05:43 Temp 100.1 100.1 Pulse 113 113 Resp 20 18 B/P (MAP) 97/50 (66) 94/55 (68) Pulse Ox 94 93 94 93 O2 Delivery Ventilator Ventilator Ventilator Ventilator 01/12/19 01/12/19 06:00 07:56 Pulse 110 Resp 18 B/P (MAP) 90/52 (65) Pulse Ox 95 92 O2 Delivery Ventilator Ventilator Intake and Output 01/11/19 01/11/19 01/12/19 15:00 23:00 07:00 Intake Total 0 ml 300 ml 813 ml Output Total 646 ml 360 ml 340 ml Balance -646 ml -60 ml 473 ml MERLE MEYER MD Jan 12, 2019 09:18
--- NOTE | 2019-01-12 10:12 | PDOC ---
Objective: Objective: D/w nurse - trial of tube feeds over the weekend w/ high residual - nurse wondering if should re-try, not very active bowel sounds. Vital Signs: Vital Signs Date Time Temp Pulse Resp B/P (MAP) Pulse Ox O2 Delivery O2 Flow Rate FiO2 01/12/19 09:31 20 98 Ventilator 01/12/19 09:00 114 94/48 (63) 01/12/19 08:00 99.4 99.4 Labs: Laboratory Tests Test 01/12/19 06:20 01/12/19 08:00 01/12/19 08:20 White Blood Count 24.5 x10^3/uL Red Blood Count 2.90 x10^6/uL Hemoglobin 9.6 g/dL Hematocrit 29.2 % Mean Corpuscular Volume 101 fL Mean Corpuscular Hemoglobin 33 pg Mean Corpuscular Hemoglobin Concent 33 g/dL Red Cell Distribution Width 16.8 % Platelet Count 211 x10^3/uL Neutrophils (%) (Auto) 71 % Lymphocytes (%) (Auto) 21 % Monocytes (%) (Auto) 6 % Eosinophils (%) (Auto) 1 % Basophils (%) (Auto) 2 % Neutrophils # (Auto) 17.4 x10^3/uL Lymphocytes # (Auto) 5.1 x10^3/uL Monocytes # (Auto) 1.4 x10^3/uL Eosinophils # (Auto) 0.1 x10^3/uL Basophils # (Auto) 0.4 x10^3/uL Segmented Neutrophils % 61 % Band Neutrophils % 13 % Lymphocytes % 14 % Monocytes % 5 % Eosinophils % 2 % Metamyelocytes % 3 % Myelocytes % 2 % Nucleated Red Blood Cells 1 Toxic Granulation Mod Toxic Vacuolation Slight Platelet Estimate Adequate Polychromasia Slight Anisocytosis Slight Sodium Level 146 mmol/L Potassium Level 4.4 mmol/L Chloride Level 109 mmol/L Carbon Dioxide Level 29 mmol/L Anion Gap 8 Blood Urea Nitrogen 59 mg/dL Creatinine 1.8 mg/dL Estimated GFR (Cockcroft-Gault) 42.4 Glucose Level 85 mg/dL Calcium Level 6.9 mg/dL O2 Saturation 85 % Arterial Blood pH 7.44 Arterial Blood pCO2 at Patient Temp 41 mmHg Arterial Blood pO2 at Patient Temp 53 mmHg Arterial Blood HCO3 27 mmol/L Arterial Blood Base Excess 2 mmol/L FiO2 80 Influenza Type A Antigen Negative Influenza Type B Antigen Negative URINE CULTURE RES 1 Final No growth BLOOD CULTURE Preliminary NO GROWTH AFTER 4 DAYS Imaging: CXR 01/12 IMPRESSION: Findings of interstitial pulmonary edema or multifocal infection. Silhouetting of the left hemidiaphragm may be secondary to consolidation which may be from atelectasis or pneumonia. PE: Family present. GEN: intubated LUNGS: vent HEART: tachycardic ABD: soft, quiet NEURO/PSYCH: sedated A/P: Hematemesis, melena - EGD w/ GERD, ?M-W tear, alcoholic gastritis Alcoholic hepatitis - Hep C Ab positive, PCR negative Resp failure, abnormal chest imaging Leukocytosis, DOMONIQUE - worse -- ?ileus - check abd x-ray, could consider repeating CT ELE-PINKY SONG Jan 12, 2019 10:12
[2019-01-12] MEDS ORDERED: LACTULOSE 20 GM/30 ML SOLUTION. PO PRN (10:15)
[2019-01-12] MEDS: MULTIVIT INFUSN,ADULT 4,VIT K 10 ML, THIAMINE INJ 100 MG, FOLIC ACID INJ 1 MG in IV NOR... IV SCH (10:29)
--- NOTE | 2019-01-12 11:20 | PDOC ---
PULMONARY PROGRESS NOTES Subjective SEDATED ON AC MODE 10 PEEP 100 %, on propofol, versed, fentanyl, mod ett secretion, Vitals Vital Signs Date Time Temp Pulse Resp B/P (MAP) Pulse Ox O2 Delivery O2 Flow Rate FiO2 01/12/19 10:00 116 20 94/48 (63) 98 Ventilator 01/12/19 08:00 99.4 99.4 Comments ros as mentioned as above discussed w rn other sys otherwise neg on vent sedated HEENT: Other (nc at perrl nose clear orally intubated neck no lad no thyromegaly) Lungs: Other (decrease bs) Cardiovascular: S1, S2 Abdomen: Soft, Non-tender, Other (DISTENDED no mass) Extremities: Other (EDEMA) Skin: Warm Labs Laboratory Tests Test 01/11/19 04:30 01/11/19 08:26 01/11/19 09:00 01/12/19 06:20 Sodium Level 141 mmol/L (136-145) 146 mmol/L (136-145) Potassium Level 4.5 mmol/L (3.5-5.1) 4.4 mmol/L (3.5-5.1) Chloride Level 107 mmol/L (98-107) 109 mmol/L (98-107) Carbon Dioxide Level 26 mmol/L (21-32) 29 mmol/L (21-32) Anion Gap 8 (6-14) 8 (6-14) Blood Urea Nitrogen 43 mg/dL (8-26) 59 mg/dL (8-26) Creatinine 1.0 mg/dL (0.7-1.3) 1.8 mg/dL (0.7-1.3) Estimated GFR (Cockcroft-Gault) 83.6 42.4 Glucose Level 86 mg/dL (70-99) 85 mg/dL (70-99) Calcium Level 6.9 mg/dL (8.5-10.1) 6.9 mg/dL (8.5-10.1) White Blood Count 19.2 x10^3/uL (4.0-11.0) 24.5 x10^3/uL (4.0-11.0) Red Blood Count 2.68 x10^6/uL (4.30-5.70) 2.90 x10^6/uL (4.30-5.70) Hemoglobin 9.0 g/dL (13.0-17.5) 9.6 g/dL (13.0-17.5) Hematocrit 26.4 % (39.0-53.0) 29.2 % (39.0-53.0) Mean Corpuscular Volume 98 fL (79-100) 101 fL (79-100) Mean Corpuscular Hemoglobin 34 pg (25-35) 33 pg (25-35) Mean Corpuscular Hemoglobin Concent 34 g/dL (31-37) 33 g/dL (31-37) Red Cell Distribution Width 16.3 % (11.5-14.5) 16.8 % (11.5-14.5) Platelet Count 213 x10^3/uL (140-400) 211 x10^3/uL (140-400) Neutrophils (%) (Auto) 73 % (31-73) 71 % (31-73) Lymphocytes (%) (Auto) 18 % (24-48) 21 % (24-48) Monocytes (%) (Auto) 8 % (0-9) 6 % (0-9) Eosinophils (%) (Auto) 1 % (0-3) 1 % (0-3) Basophils (%) (Auto) 0 % (0-3) 2 % (0-3) Neutrophils # (Auto) 14.1 x10^3/uL (1.8-7.7) 17.4 x10^3/uL (1.8-7.7) Lymphocytes # (Auto) 3.5 x10^3/uL (1.0-4.8) 5.1 x10^3/uL (1.0-4.8) Monocytes # (Auto) 1.4 x10^3/uL (0.0-1.1) 1.4 x10^3/uL (0.0-1.1) Eosinophils # (Auto) 0.1 x10^3/uL (0.0-0.7) 0.1 x10^3/uL (0.0-0.7) Basophils # (Auto) 0.1 x10^3/uL (0.0-0.2) 0.4 x10^3/uL (0.0-0.2) Segmented Neutrophils % 71 % (35-66) 61 % (35-66) Band Neutrophils % 11 % (0-9) 13 % (0-9) Lymphocytes % 10 % (24-48) 14 % (24-48) Monocytes % 4 % (0-10) 5 % (0-10) Metamyelocytes % 2 % (0-0) 3 % (0-0) Myelocytes % 2 % (0-0) 2 % (0-0) Nucleated Red Blood Cells 9 1 Toxic Granulation Slight Mod Toxic Vacuolation Mod Slight Dohle Bodies Few Platelet Estimate Adequate (ADEQUATE) Adequate (ADEQUATE) Polychromasia Present Slight Ammonia 49 mcmol/L (11-34) Procalcitonin 2.78 ng/mL (0.00-0.10) O2 Saturation 88 % (92-99) Arterial Blood pH 7.45 (7.35-7.45) Arterial Blood pCO2 at Patient Temp 44 mmHg (35-46) Arterial Blood pO2 at Patient Temp 56 mmHg (85-108) Arterial Blood HCO3 30 mmol/L (21-28) Arterial Blood Base Excess 5 mmol/L (-3-3) FiO2 70 Eosinophils % 2 % (0-5) Anisocytosis Slight Test 01/12/19 08:00 01/12/19 08:20 O2 Saturation 85 % (92-99) Arterial Blood pH 7.44 (7.35-7.45) Arterial Blood pCO2 at Patient Temp 41 mmHg (35-46) Arterial Blood pO2 at Patient Temp 53 mmHg (85-108) Arterial Blood HCO3 27 mmol/L (21-28) Arterial Blood Base Excess 2 mmol/L (-3-3) FiO2 80 Influenza Type A Antigen Negative (NEGATIVE) Influenza Type B Antigen Negative (NEGATIVE) Laboratory Tests Test 01/12/19 06:20 01/12/19 08:00 01/12/19 08:20 White Blood Count 24.5 x10^3/uL (4.0-11.0) Red Blood Count 2.90 x10^6/uL (4.30-5.70) Hemoglobin 9.6 g/dL (13.0-17.5) Hematocrit 29.2 % (39.0-53.0) Mean Corpuscular Volume 101 fL (79-100) Mean Corpuscular Hemoglobin 33 pg (25-35) Mean Corpuscular Hemoglobin Concent 33 g/dL (31-37) Red Cell Distribution Width 16.8 % (11.5-14.5) Platelet Count 211 x10^3/uL (140-400) Neutrophils (%) (Auto) 71 % (31-73) Lymphocytes (%) (Auto) 21 % (24-48) Monocytes (%) (Auto) 6 % (0-9) Eosinophils (%) (Auto) 1 % (0-3) Basophils (%) (Auto) 2 % (0-3) Neutrophils # (Auto) 17.4 x10^3/uL (1.8-7.7) Lymphocytes # (Auto) 5.1 x10^3/uL (1.0-4.8) Monocytes # (Auto) 1.4 x10^3/uL (0.0-1.1) Eosinophils # (Auto) 0.1 x10^3/uL (0.0-0.7) Basophils # (Auto) 0.4 x10^3/uL (0.0-0.2) Segmented Neutrophils % 61 % (35-66) Band Neutrophils % 13 % (0-9) Lymphocytes % 14 % (24-48) Monocytes % 5 % (0-10) Eosinophils % 2 % (0-5) Metamyelocytes % 3 % (0-0) Myelocytes % 2 % (0-0) Nucleated Red Blood Cells 1 Toxic Granulation Mod Toxic Vacuolation Slight Platelet Estimate Adequate (ADEQUATE) Polychromasia Slight Anisocytosis Slight Sodium Level 146 mmol/L (136-145) Potassium Level 4.4 mmol/L (3.5-5.1) Chloride Level 109 mmol/L (98-107) Carbon Dioxide Level 29 mmol/L (21-32) Anion Gap 8 (6-14) Blood Urea Nitrogen 59 mg/dL (8-26) Creatinine 1.8 mg/dL (0.7-1.3) Estimated GFR (Cockcroft-Gault) 42.4 Glucose Level 85 mg/dL (70-99) Calcium Level 6.9 mg/dL (8.5-10.1) O2 Saturation 85 % (92-99) Arterial Blood pH 7.44 (7.35-7.45) Arterial Blood pCO2 at Patient Temp 41 mmHg (35-46) Arterial Blood pO2 at Patient Temp 53 mmHg (85-108) Arterial Blood HCO3 27 mmol/L (21-28) Arterial Blood Base Excess 2 mmol/L (-3-3) FiO2 80 Influenza Type A Antigen Negative (NEGATIVE) Influenza Type B Antigen Negative (NEGATIVE) Comments cxr reviewed, 01/02 ett ok 1. Bilateral infiltrates ,no change Impression . IMPRESSION: 1. Acute respiratory failure, multifactorial, secondary to multiorgan failure. Now with worsening hypoxia. possible hepato-pulmonary shunt/ ARDS 2. End-stage liver disease with persistent abnormal LFT 3. Multiorgan failure. 4. Renal failure. ? hepato renal syndrome 5. Acute gastrointestinal bleed.? MV Tear 6. Possible sepsis. 7. Leukocytosis. 8. Hematemesis. 9. Rhabdomyolysis. 10. Alcohol abuse. 11. Ascites. 12. Electrolyte abnormalities. 13. fever Imaging: EGD 01/08 E--NO VARICES. Erosions distally c/w reflux/repeated emesis. One quite long narrow erosion which could have been a M-W. No active bleeding or clot. G--Not much retained blood after OG suction and Reglan. NO gastric varices. Linear erosions along the rugae in fundus and body c/w alcoholic or stress gastritis. Scattered "bruises" from OG tube. No ulcer, etc. D--Normal to second portion. IMP: Reflux esophagitis. ? recent M-W tear. Alcoholic gastritis. No active bleeding or clot seen. Plan . cont vent support, setting reviewed, peep 10, cont 100 Fi02 titration MCFP PROGNOSIS IS POOR 1. D/W RN AND RT and family 2. Continue antibiotics per Infectious Disease service. zyvox added for persistent fever, also on Zosyn 3. IV fluids.prn . will check CVP after central line to see volume status. 4. monitor h/h 5. Monitor hemoglobin and hematocrit. 6. Follow GI recommendation.repeat LFT 7. Alcohol withdrawal protocol. 8. Nutrition 9. echo with bubble study d/w family. all questions answered. cct 30 min FRED SMITH MD Jan 12, 2019 11:20
[2019-01-12 11:44] LABS: PROTHROMBIN TIME PATIENT 15.6 SEC (11.7-14.0)
[2019-01-12 11:54] LABS: ALBUMIN 1.7 g/dL (3.4-5.0); DIRECT BILIRUBIN 9.4 mg/dL (0.0-0.2); TOTAL BILIRUBIN 10.9 mg/dL (0.2-1.0); TOTAL PROTEIN 6.1 g/dL (6.4-8.2)
--- NOTE | 2019-01-12 12:18 | PDOC ---
Date and Time Called for central venous access. Needed to monitor CVP and multiple infusion meds. Chlorasept prep,large drape,gown,gloves,cap,mask. Ultrasound ID right internal jugular vein. Needle and wire placement in IJ verified with ultrasound. Unable to save or print image. 3 lumen placed, sutured at 17cm. Free flow all three ports, flushed, biopatch and op site. CXR ordered Current Medications Current Medications Sodium Chloride 1,000 ml @ 1,000 mls/hr 1X ONCE IV Last administered on 01/07/19at 19:27; Start 01/07/19 at 19:30; Stop 01/07/19 at 20:29; Status DC Ondansetron HCl (Zofran) 4 mg 1X ONCE IV Last administered on 01/07/19at 19:28; Start 01/07/19 at 19:30; Stop 01/07/19 at 19:31; Status DC Pantoprazole Sodium (PROTONIX VIAL for IV PUSH) 80 mg 1X ONCE IVP Last administered on 01/07/19at 19:50; Start 01/07/19 at 20:00; Stop 01/07/19 at 20:01; Status DC Pantoprazole Sodium 80 mg/ Sodium Chloride 100 ml @ 10 mls/hr 1X ONCE IV Last administered on 01/07/19at 20:00; Start 01/07/19 at 20:00; Stop 01/08/19 at 05:59; Status DC Sodium Chloride 1,000 ml @ 1,000 mls/hr 1X ONCE IV Last administered on 01/07/19at 22:12; Start 01/07/19 at 21:00; Stop 01/07/19 at 21:59; Status DC Sodium Chloride 1,000 ml @ 1,000 mls/hr 1X ONCE IV Last administered on 01/07/19at 20:40; Start 01/07/19 at 20:45; Stop 01/07/19 at 21:44; Status DC Potassium Chloride/Sodium Chloride 1,000 ml @ 75 mls/hr 1X ONCE IV Last administered on 01/07/19at 21:16; Start 01/07/19 at 21:30; Stop 01/08/19 at 10:49; Status DC Vancomycin HCl (Vanco Per Pharmacy) 1 each PRN DAILY PRN MC SEE COMMENTS Last administered on 01/08/19at 00:43; Start 01/07/19 at 21:00; Stop 01/08/19 at 06:39; Status DC Piperacillin Sod/ Tazobactam Sod (Zosyn Per Pharmacy) 1 each PRN DAILY PRN MC SEE COMMENTS; Start 01/07/19 at 21:00 Piperacillin Sod/ Tazobactam Sod 3.375 gm/Sodium Chloride 50 ml @ 100 mls/hr Q6HRS IV Last administered on 01/12/19at 05:50; Start 01/07/19 at 22:00 Vancomycin HCl 2 gm/Sodium Chloride 500 ml @ 250 mls/hr 1X ONCE IV Last administered on 01/07/19at 22:11; Start 01/07/19 at 22:00; Stop 01/07/19 at 23:59; Status DC Lorazepam (Ativan Inj) 1 mg 1X ONCE IV Last administered on 01/07/19at 23:22; Start 01/07/19 at 23:30; Stop 01/07/19 at 23:31; Status DC Lorazepam (Ativan Inj) 2 mg STK-MED ONCE .ROUTE ; Start 01/07/19 at 23:20; Stop 01/07/19 at 23:21; Status DC Vancomycin HCl 1.5 gm/Sodium Chloride 500 ml @ 250 mls/hr Q12H IV ; Start 1 03/10/18 at 10:00; Stop 01/08/19 at 06:39; Status DC Vancomycin HCl (Vancomycin Trough Level) 1 each 1X ONCE MC ; Start 01/09/19 at 09:30; Stop 01/09/19 at 09:31; Status Cancel Ondansetron HCl (Zofran) 4 mg PRN Q6HRS PRN IVP NAUSEA/VOMITING; Start 1 03/10/18 at 04:00; Status Cancel Pantoprazole Sodium 80 mg/ Sodium Chloride 100 ml @ 10 mls/hr Q10H IV Last administered on 01/09/19at 02:00; Start 01/08/19 at 06:00; Stop 01/09/19 at 11:00; Status DC Multivitamins 10 ml/Thiamine HCl 100 mg/Folic Acid 1 mg/Sodium Chloride 1,011.2 ml @ 100 mls/ hr DAILY IV Last administered on 01/12/19at 10:29; Start 01/08/19 at 09:00; Stop 01/12/19 at 19:07 Lorazepam (Ativan Inj) 2 mg PRN Q1HR PRN IV For CIWA 8-14 Last administered on 01/09/19at 22:24; Start 01/08/19 at 07:15 Lorazepam (Ativan Inj) 4 mg PRN Q1HR PRN IV For CIWA 15 or greater; Start 01/08/19 at 07:15 Haloperidol Lactate (Haldol Inj) 5 mg PRN Q4HRS PRN IVP Hallucinatns,Confusn,Delirium; Start 01/08/19 at 07:15 Diphenhydramine HCl (Benadryl) 25 mg PRN Q15MIN PRN IVP EPS symptoms 2'Haldol admin; Start 01/08/19 at 07:15 Clonidine HCl (Catapres) 0.1 mg PRN Q1HR PRN PO SBP > 180 or DBP > 100, MRX3; Start 01/08/19 at 07:15 Sodium Bicarbonate (Sodium Bicarb Adult 8.4% Syr) 50 meq 1X ONCE IV Last a dministered on 01/08/19at 08:04; Start 01/08/19 at 08:00; Stop 01/08/19 at 08:01; Status DC Propofol 100 ml @ As Directed STK-MED ONCE IV ; Start 01/08/19 at 08:19; Stop 01/08/19 at 08:19; Status DC Succinylcholine Chloride (Anectine) 200 mg STK-MED ONCE .ROUTE ; Start 01/08/19 at 08:19; Stop 01/08/19 at 08:19; Status DC Propofol 100 ml @ As Directed STK-MED ONCE IV ; Start 01/08/19 at 08:29; Stop 01/08/19 at 08:30; Status DC Fentanyl Citrate 30 ml @ 0 mls/hr CONT PRN PRN IV PER PROTOCOL Last administered on 01/12/19at 09:31; Start 01/08/19 at 09:00 Naloxone HCl (Narcan) 0.4 mg PRN Q2MIN PRN IV SEE INSTRUCTIONS; Start 01/08/19 at 09:00 Sodium Chloride 1,000 ml @ 25 mls/hr Q24H IV Last administered on 01/11/19at 07:56; Start 01/08/19 at 08:54 Fentanyl Citrate (Fentanyl 2ml Vial) 100 mcg STK-MED ONCE .ROUTE ; Start 01/08/19 at 08:55; Stop 01/08/19 at 08:55; Status DC Octreotide Acetate 500 mcg/ Sodium Chloride 101 ml @ 0 mls/hr CONT PRN IV SEE I/O RECORD Last administered on 01/08/19at 13:56; Start 01/08/19 at 09:00; Stop 01/08/19 at 16:55; Status DC Phytonadione (Vitamin K Ampule) 10 mg 1X ONCE SQ Last administered on 01/08/19at 09:56; Start 01/08/19 at 09:15; Stop 01/08/19 at 09:16; Status DC Metoclopramide HCl (Reglan Vial) 10 mg 1X ONCE IVP Last administered on 01/08/19at 14:36; Start 01/08/19 at 11:00; Stop 01/08/19 at 11:01; Status DC Midazolam HCl (Versed) 5 mg STK-MED ONCE .ROUTE ; Start 01/08/19 at 09:00; Stop 01/08/19 at 09:01; Status DC Acetaminophen (Tylenol) 500 mg PRN Q6HRS PRN PO MILD PAIN / TEMP Last administered on 01/11/19at 17:46; Start 01/08/19 at 09:15 Tramadol HCl (Ultram) 50 mg PRN Q6HRS PRN PO PAIN MODERATE; Start 01/08/19 at 09:15 Morphine Sulfate (Morphine Sulfate) 2 mg PRN Q2HR PRN IV PAIN; Start 01/08/19 at 09:15 Ondansetron HCl (Zofran) 4 mg PRN Q6HRS PRN IVP NAUSEA/VOMITING; Start 01/08/19 at 09:15 Fentanyl Citrate (Fentanyl 2ml Vial) 100 mcg 1X ONCE IVP Last administered on 01/08/19at 09:42; Start 01/08/19 at 09:45; Stop 01/08/19 at 09:46; Status DC Midazolam HCl (Versed) 5 mg 1X ONCE IV Last administered on 01/08/19at 09:41; Start 01/08/19 at 09:45; Stop 01/08/19 at 09:46; Status DC Succinylcholine Chloride (Anectine) 200 mg 1X ONCE IV Last administered on 01/08/19 09:41; Start 01/08/19 at 09:45; Stop 01/08/19 at 09:46; Status DC Propofol 100 ml @ 1.524 mls/ hr CONT PRN IV SEE I/O RECORD Last administered on 01/11/19at 20:00; Start 01/08/19 at 09:45 Midazolam HCl 100 ml @ 5 mls/hr CONT PRN IV SEE I/O RECORD Last administered on 01/12/19at 08:53; Start 01/08/19 at 11:15 Vecuronium Rosalia (Norcuron Bolus) 6 mg PRN Q4HRS PRN IV VENT ASYNCHRONY Last administered on 01/10/19 15:59; Start 01/08/19 at 12:00 Benzocaine (Hurricaine One) 2 spray STK-MED ONCE .ROUTE ; Start 01/07/19 at 12:00; Stop 01/08/19 at 14:20; Status DC Lidocaine HCl (Xylocaine 2% Topical 5gm Tube) 5 amanda STK-MED ONCE TP ; Start 01/07/19 at 12:00; Stop 01/08/19 at 14:20; Status DC Lactobacillus Rhamnosus (Culturelle) 1 cap BID PO ; Start 01/08/19 at 21:00; Stop 01/09/19 at 09:29; Status DC Acetaminophen (Tylenol Supp) 650 mg PRN Q6HRS PRN GA MILD PAIN / TEMP Last admi nistered on 01/09/19at 23:44; Start 01/08/19 at 18:15 Norepinephrine Bitartrate 250 ml @ 18.938 mls/ hr CONT PRN IV SEE I/O RECORD Last administered on 01/09/19at 01:00; Start 01/09/19 at 01:45 Potassium Chloride (Klor-Con) 40 meq 1X ONCE PO Last administered on 01/09/19at 11:34; Start 01/09/19 at 09:45; Stop 01/09/19 at 09:46; Status DC Metoclopramide HCl (Reglan Vial) 10 mg PRN Q6HRS PRN IVP NAUSEA/VOMITING; Start 01/09/19 at 10:15 Albumin Human 100 ml @ 100 mls/hr 1X ONCE IV Last administered on 01/09/19at 10:49; Start 01/09/19 at 10:15; Stop 01/09/19 at 11:14; Status DC Lactulose (LACTULOSE 300ML for RECTAL) 200 gm Q6HRS GA ; Start 01/09/19 at 12:00; Stop 01/09/19 at 11:04; Status DC Insulin Human Lispro (HumaLOG) 0-9 UNITS TIDWMEALS SQ ; Start 01/09/19 at 12:00 Dextrose (Dextrose 50%-Water Syringe) 12.5 gm PRN Q15MIN PRN IV SEE COMMENTS; Start 01/09/19 at 10:30 Fentanyl Citrate (Fentanyl 600 Mcg/30 ml ASBESTOS WORKER HELPER) 600 mcg STK-MED ONCE IV ; Start 01/08/19 at 15:25; Stop 01/09/19 at 10:27; Status DC Pantoprazole Sodium (PROTONIX VIAL for IV PUSH) 40 mg DAILYAC IVP Last administered on 01/12/19at 08:24; Start 01/10/19 at 07:30 Lactulose (Lactulose) 20 gm DAILY PO Last administered on 01/12/19at 08:24; Start 01/09/19 at 11:30; Stop 01/12/19 at 10:12; Status DC Potassium Bicarbonate (Potassium Effervescent Tablet) 40 meq BIDWMEALS FT Last administered on 01/10/19at 17:49; Start 01/10/19 at 09:00; Stop 01/11/19 at 09:20; Status DC Linezolid/Dextrose 300 ml @ 300 mls/hr Q12HR IV Last administered on 01/12/19at 08:24; Start 01/11/19 at 13:00 Perflutren Protein Type A Microsphe (Optison) 0.66 mg 1X ONCE IV ; Start 01/11/19 at 13:30; Stop 01/11/19 at 13:31; Status DC Albumin Human 100 ml @ 100 mls/hr 1X ONCE IV Last administered on 01/12/19at 08:25; Start 01/12/19 at 07:45; Stop 01/12/19 at 08:44; Status DC Lactulose (Lactulose) 20 gm PRN DAILY PRN PO constipation; Start 01/12/19 at 10:15 Pertinent Labs/Test Laboratory Tests Test 01/11/19 04:30 01/11/19 08:26 01/11/19 09:00 01/12/19 06:20 Sodium Level 141 mmol/L (136-145) 146 mmol/L (136-145) Potassium Level 4.5 mmol/L (3.5-5.1) 4.4 mmol/L (3.5-5.1) Chloride Level 107 mmol/L (98-107) 109 mmol/L (98-107) Carbon Dioxide Level 26 mmol/L (21-32) 29 mmol/L (21-32) Anion Gap 8 (6-14) 8 (6-14) Blood Urea Nitrogen 43 mg/dL (8-26) 59 mg/dL (8-26) Creatinine 1.0 mg/dL (0.7-1.3) 1.8 mg/dL (0.7-1.3) Estimated GFR (Cockcroft-Gault) 83.6 42.4 Glucose Level 86 mg/dL (70-99) 85 mg/dL (70-99) Calcium Level 6.9 mg/dL (8.5-10.1) 6.9 mg/dL (8.5-10.1) White Blood Count 19.2 x10^3/uL (4.0-11.0) 24.5 x10^3/uL (4.0-11.0) Red Blood Count 2.68 x10^6/uL (4.30-5.70) 2.90 x10^6/uL (4.30-5.70) Hemoglobin 9.0 g/dL (13.0-17.5) 9.6 g/dL (13.0-17.5) Hematocrit 26.4 % (39.0-53.0) 29.2 % (39.0-53.0) Mean Corpuscular Volume 98 fL (79-100) 101 fL (79-100) Mean Corpuscular Hemoglobin 34 pg (25-35) 33 pg (25-35) Mean Corpuscular Hemoglobin Concent 34 g/dL (31-37) 33 g/dL (31-37) Red Cell Distribution Width 16.3 % (11.5-14.5) 16.8 % (11.5-14.5) Platelet Count 213 x10^3/uL (140-400) 211 x10^3/uL (140-400) Neutrophils (%) (Auto) 73 % (31-73) 71 % (31-73) Lymphocytes (%) (Auto) 18 % (24-48) 21 % (24-48) Monocytes (%) (Auto) 8 % (0-9) 6 % (0-9) Eosinophils (%) (Auto) 1 % (0-3) 1 % (0-3) Basophils (%) (Auto) 0 % (0-3) 2 % (0-3) Neutrophils # (Auto) 14.1 x10^3/uL (1.8-7.7) 17.4 x10^3/uL (1.8-7.7) Lymphocytes # (Auto) 3.5 x10^3/uL (1.0-4.8) 5.1 x10^3/uL (1.0-4.8) Monocytes # (Auto) 1.4 x10^3/uL (0.0-1.1) 1.4 x10^3/uL (0.0-1.1) Eosinophils # (Auto) 0.1 x10^3/uL (0.0-0.7) 0.1 x10^3/uL (0.0-0.7) Basophils # (Auto) 0.1 x10^3/uL (0.0-0.2) 0.4 x10^3/uL (0.0-0.2) Segmented Neutrophils % 71 % (35-66) 61 % (35-66) Band Neutrophils % 11 % (0-9) 13 % (0-9) Lymphocytes % 10 % (24-48) 14 % (24-48) Monocytes % 4 % (0-10) 5 % (0-10) Metamyelocytes % 2 % (0-0) 3 % (0-0) Myelocytes % 2 % (0-0) 2 % (0-0) Nucleated Red Blood Cells 9 1 Toxic Granulation Slight Mod Toxic Vacuolation Mod Slight Dohle Bodies Few Platelet Estimate Adequate (ADEQUATE) Adequate (ADEQUATE) Polychromasia Present Slight Ammonia 49 mcmol/L (11-34) Procalcitonin 2.78 ng/mL (0.00-0.10) O2 Saturation 88 % (92-99) Arterial Blood pH 7.45 (7.35-7.45) Arterial Blood pCO2 at Patient Temp 44 mmHg (35-46) Arterial Blood pO2 at Patient Temp 56 mmHg (85-108) Arterial Blood HCO3 30 mmol/L (21-28) Arterial Blood Base Excess 5 mmol/L (-3-3) FiO2 70 Eosinophils % 2 % (0-5) Anisocytosis Slight Test 01/12/19 08:00 01/12/19 08:20 01/12/19 11:20 O2 Saturation 85 % (92-99) Arterial Blood pH 7.44 (7.35-7.45) Arterial Blood pCO2 at Patient Temp 41 mmHg (35-46) Arterial Blood pO2 at Patient Temp 53 mmHg (85-108) Arterial Blood HCO3 27 mmol/L (21-28) Arterial Blood Base Excess 2 mmol/L (-3-3) FiO2 80 Influenza Type A Antigen Negative (NEGATIVE) Influenza Type B Antigen Negative (NEGATIVE) Prothrombin Time 15.6 SEC (11.7-14.0) Prothromb Time International Ratio 1.3 (0.8-1.1) Total Bilirubin 10.9 mg/dL (0.2-1.0) Direct Bilirubin 9.4 mg/dL (0.0-0.2) Aspartate Amino Transf (AST/SGOT) 245 U/L (15-37) Alanine Aminotransferase (ALT/SGPT) 107 U/L (16-63) Alkaline Phosphatase 124 U/L (46-116) Total Protein 6.1 g/dL (6.4-8.2) Albumin 1.7 g/dL (3.4-5.0) Laboratory Tests Test 01/12/19 06:20 01/12/19 08:00 01/12/19 08:20 01/12/19 11:20 White Blood Count 24.5 x10^3/uL (4.0-11.0) Red Blood Count 2.90 x10^6/uL (4.30-5.70) Hemoglobin 9.6 g/dL (13.0-17.5) Hematocrit 29.2 % (39.0-53.0) Mean Corpuscular Volume 101 fL (79-100) Mean Corpuscular Hemoglobin 33 pg (25-35) Mean Corpuscular Hemoglobin Concent 33 g/dL (31-37) Red Cell Distribution Width 16.8 % (11.5-14.5) Platelet Count 211 x10^3/uL (140-400) Neutrophils (%) (Auto) 71 % (31-73) Lymphocytes (%) (Auto) 21 % (24-48) Monocytes (%) (Auto) 6 % (0-9) Eosinophils (%) (Auto) 1 % (0-3) Basophils (%) (Auto) 2 % (0-3) Neutrophils # (Auto) 17.4 x10^3/uL (1.8-7.7) Lymphocytes # (Auto) 5.1 x10^3/uL (1.0-4.8) Monocytes # (Auto) 1.4 x10^3/uL (0.0-1.1) Eosinophils # (Auto) 0.1 x10^3/uL (0.0-0.7) Basophils # (Auto) 0.4 x10^3/uL (0.0-0.2) Segmented Neutrophils % 61 % (35-66) Band Neutrophils % 13 % (0-9) Lymphocytes % 14 % (24-48) Monocytes % 5 % (0-10) Eosinophils % 2 % (0-5) Metamyelocytes % 3 % (0-0) Myelocytes % 2 % (0-0) Nucleated Red Blood Cells 1 Toxic Granulation Mod Toxic Vacuolation Slight Platelet Estimate Adequate (ADEQUATE) Polychromasia Slight Anisocytosis Slight Sodium Level 146 mmol/L (136-145) Potassium Level 4.4 mmol/L (3.5-5.1) Chloride Level 109 mmol/L (98-107) Carbon Dioxide Level 29 mmol/L (21-32) Anion Gap 8 (6-14) Blood Urea Nitrogen 59 mg/dL (8-26) Creatinine 1.8 mg/dL (0.7-1.3) Estimated GFR (Cockcroft-Gault) 42.4 Glucose Level 85 mg/dL (70-99) Calcium Level 6.9 mg/dL (8.5-10.1) O2 Saturation 85 % (92-99) Arterial Blood pH 7.44 (7.35-7.45) Arterial Blood pCO2 at Patient Temp 41 mmHg (35-46) Arterial Blood pO2 at Patient Temp 53 mmHg (85-108) Arterial Blood HCO3 27 mmol/L (21-28) Arterial Blood Base Excess 2 mmol/L (-3-3) FiO2 80 Influenza Type A Antigen Negative (NEGATIVE) Influenza Type B Antigen Negative (NEGATIVE) Prothrombin Time 15.6 SEC (11.7-14.0) Prothromb Time International Ratio 1.3 (0.8-1.1) Total Bilirubin 10.9 mg/dL (0.2-1.0) Direct Bilirubin 9.4 mg/dL (0.0-0.2) Aspartate Amino Transf (AST/SGOT) 245 U/L (15-37) Alanine Aminotransferase (ALT/SGPT) 107 U/L (16-63) Alkaline Phosphatase 124 U/L (46-116) Total Protein 6.1 g/dL (6.4-8.2) Albumin 1.7 g/dL (3.4-5.0) LAST VITALS Vital Signs Date Time Temp Pulse Resp B/P (MAP) Pulse Ox O2 Delivery O2 Flow Rate FiO2 01/12/19 11:00 112 20 94/51 (65) 96 Ventilator 01/12/19 08:00 99.4 99.4 EMELINA RIVERA MD Jan 12, 2019 12:18
--- NOTE | 2019-01-12 12:28 | RAD ---
Study: 1. CHEST AP ONLY 2. KUB Indication: Central line placement. High residual with tube feeds. Comparison: 01/12/2019 chest radiograph at 0755 hours. Findings: CHEST: Right-sided central venous catheter with the tip terminating at the expected location of the distal superior vena cava. Endotracheal tube tip terminates at the level of the clavicles. Diffuse haziness with a basilar predilection involving both lungs similar to the prior. Bilateral pleural effusions. No pneumothorax or newly seen localized airspace opacity. ABDOMEN: Enteric tube tip and sidehole are within the stomach. Nonspecific bowel gas pattern without obstructive features. Generalized paucity of small bowel gas. Impression: CHEST: 1. Central venous catheter with the tube tip terminating at the distal superior vena cava. Endotracheal tube tip at the clavicles. 2. Hazy attenuation of both lungs with a basilar predilection as well as bilateral pleural effusions are redemonstrated and not significantly changed. ABDOMEN: 1. Enteric tube tip and sidehole located within the stomach. 2. Nonobstructive bowel gas pattern. Nonspecific paucity of small bowel gas which could represent an ileus, as queried. Electronically signed by: ZACH LOVELACE MD (01/12/2019 12:26 PM) [facility]
--- NOTE | 2019-01-12 13:56 | PDOC ---
CARDIOLOGY PROGRESS NOTE SUBJECTIVE: No acute events. Continues to have multiorgan failure. Family at bedside. No new nursing issues. OBJECTIVE: Vital Signs/I&O: Vital Signs Date Time Temp Pulse Resp B/P (MAP) Pulse Ox O2 Delivery O2 Flow Rate FiO2 01/12/19 13:00 109 22 94/46 (62) 96 Ventilator 01/12/19 12:00 99.5 99.5 I & O 01/11/19 01/11/19 01/12/19 15:00 23:00 07:00 Intake Total 0 ml 300 ml 813 ml Output Total 646 ml 360 ml 415 ml Balance -646 ml -60 ml 398 ml Objective: He is sedated and ventilated. Bilateral rhonchi Trace edema. Obese abd. Normal heart tones. CURRENT MEDICATIONS: Current Medications Medications (Trade) Dose Ordered Sig/Quyen Route PRN Reason Start Time Stop Time Status Last Admin Dose Admin Albumin Human 100 ml @ 100 mls/hr 1X ONCE IV 01/12/19 07:45 01/12/19 08:44 DC 01/12/19 08:25 DIAGNOSTIC TESTING: Echo with normal EF and negative bubble study Labs: Laboratory Tests 01/12/19 06:20 Laboratory Tests Test 01/12/19 06:20 01/12/19 08:00 01/12/19 08:20 01/12/19 11:20 White Blood Count 24.5 x10^3/uL (4.0-11.0) H Red Blood Count 2.90 x10^6/uL (4.30-5.70) L Hemoglobin 9.6 g/dL (13.0-17.5) L Hematocrit 29.2 % (39.0-53.0) L Mean Corpuscular Volume 101 fL (79-100) H Mean Corpuscular Hemoglobin 33 pg (25-35) Mean Corpuscular Hemoglobin Concent 33 g/dL (31-37) Red Cell Distribution Width 16.8 % (11.5-14.5) H Platelet Count 211 x10^3/uL (140-400) Neutrophils (%) (Auto) 71 % (31-73) Lymphocytes (%) (Auto) 21 % (24-48) L Monocytes (%) (Auto) 6 % (0-9) Eosinophils (%) (Auto) 1 % (0-3) Basophils (%) (Auto) 2 % (0-3) Neutrophils # (Auto) 17.4 x10^3/uL (1.8-7.7) H Lymphocytes # (Auto) 5.1 x10^3/uL (1.0-4.8) H Monocytes # (Auto) 1.4 x10^3/uL (0.0-1.1) H Eosinophils # (Auto) 0.1 x10^3/uL (0.0-0.7) Basophils # (Auto) 0.4 x10^3/uL (0.0-0.2) H Segmented Neutrophils % 61 % (35-66) Band Neutrophils % 13 % (0-9) H Lymphocytes % 14 % (24-48) L Monocytes % 5 % (0-10) Eosinophils % 2 % (0-5) Metamyelocytes % 3 % (0-0) H Myelocytes % 2 % (0-0) H Nucleated Red Blood Cells 1 Toxic Granulation Mod Toxic Vacuolation Slight Platelet Estimate Adequate (ADEQUATE) Polychromasia Slight Anisocytosis Slight Sodium Level 146 mmol/L (136-145) H Potassium Level 4.4 mmol/L (3.5-5.1) Chloride Level 109 mmol/L (98-107) H Carbon Dioxide Level 29 mmol/L (21-32) Anion Gap 8 (6-14) Blood Urea Nitrogen 59 mg/dL (8-26) H Creatinine 1.8 mg/dL (0.7-1.3) H Estimated GFR (Cockcroft-Gault) 42.4 Glucose Level 85 mg/dL (70-99) Calcium Level 6.9 mg/dL (8.5-10.1) L O2 Saturation 85 % (92-99) L Arterial Blood pH 7.44 (7.35-7.45) Arterial Blood pCO2 at Patient Temp 41 mmHg (35-46) Arterial Blood pO2 at Patient Temp 53 mmHg (85-108) L Arterial Blood HCO3 27 mmol/L (21-28) Arterial Blood Base Excess 2 mmol/L (-3-3) FiO2 80 Influenza Type A Antigen Negative (NEGATIVE) Influenza Type B Antigen Negative (NEGATIVE) Prothrombin Time 15.6 SEC (11.7-14.0) H Prothromb Time International Ratio 1.3 (0.8-1.1) H Total Bilirubin 10.9 mg/dL (0.2-1.0) H Direct Bilirubin 9.4 mg/dL (0.0-0.2) H Aspartate Amino Transf (AST/SGOT) 245 U/L (15-37) H Alkaline Phosphatase 124 U/L (46-116) H Total Protein 6.1 g/dL (6.4-8.2) L Albumin 1.7 g/dL (3.4-5.0) L Test 01/12/19 13:14 Glucose (Fingerstick) 94 mg/dL (70-99) ASSESSMENT: 1. Septic shock with ARDS PLAN: 1. supportive care from CV standpoint 2. Echo wnl. Pressors prn for hypotension discussed extensively with family May need ecmo if o2 sats do not improve, defer to Dr. Rodriguez. Will be available for any acute issues. JUAN J CARRASQUILLO MD Jan 12, 2019 13:56
--- NOTE | 2019-01-12 14:31 | NUR ---
SS following up with discharge planning. Pt remains on the vent at this time. SS discussed with RN, Lindsay. SS phoned and faxed referral to [facility], ; fax [phone]. SS will continue to follow for discharge planning.
--- NOTE | 2019-01-12 14:44 | CARD ---
MR#: [id number] Date of Study: 01/12/2019 Ordering Physician: FRED SMITH, Referring Physician: FRED SMITH, Tech: Brenda Liang APPROVED REPORT EXAM: Two-dimensional and M-mode echocardiogram with Doppler and color Doppler. Other Information Quality : AverageHR: 115bpm INDICATION ASD Rule out ASD RISK FACTORS Hypertension Smoking LEFT VENTRICLE The left ventricle is normal size. There is borderline to mild concentric left ventricular hypertroph y. The left ventricular systolic function is normal. The Ejection Fraction is 55%. There is normal LV segmental wall motion. Diastology not performed. RIGHT VENTRICLE The right ventricle is normal size. There is normal right ventricular wall thickness. The right ventr icular systolic function is normal. ATRIA The left atrium size is normal. The right atrium size is normal. Interatrial septum is intact without evidence of ASD or PFO, noted on 2-D or Doppler imaging. AORTIC VALVE The aortic valve is normal in structure and function. Doppler and Color Flow revealed no significant aortic regurgitation. There is no significant aortic valvular stenosis. MITRAL VALVE The mitral valve is normal in structure and function. There is no evidence of mitral valve prolapse. There is no mitral valve stenosis. Doppler and Color Flow revealed no mitral valve regurgitation note d. TRICUSPID VALVE The tricuspid valve is normal in structure and function. Doppler and Color Flow revealed no tricuspid valve regurgitation noted. There is no tricuspid valve stenosis. PULMONIC VALVE The pulmonic valve is not well visualized. GREAT VESSELS The aortic root is normal in size. The ascending aorta is normal in size. The IVC is normal in size a nd collapses >50% with inspiration. PERICARDIAL EFFUSION There is no evidence of significant pericardial effusion. Critical Notification Critical Value: No <Conclusion> Limited 2D echo with bubble study. The left ventricular systolic function is normal. The Ejection Fraction is 55%. There is no evidence of significant pericardial effusion. Bubble study negative for PFO/ASD. Signed by : Nathanael Lindsay, Electronically Approved : 01/12/2019 14:44:38
[2019-01-12] MEDS: ACETAMINOPHEN 650 MG/20.3 ML SOLUTION. PEG PRN (16:45)
[2019-01-12] MEDS: IV NORMAL SALINE 1000ML BAG 1,000 ML IV SCH (22:14)
[2019-01-13] VITALS (24 sets, daily range): BP systolic 79–157; BP diastolic 33–69
[2019-01-13] MEDS: PIPERACILLIN/TAZOBACTAM 3.375 GM in IV NORMAL SALINE 50ML 50 ML IV SCH ×5 (00:23→23:48)
[2019-01-13] MEDS: MIDAZOLAM 100mg/100ml NS BAG 100 ML IV PRN ×2 (02:22→12:02)
[2019-01-13] MEDS: PROPOFOL 100 ML IV PRN ×3 (03:20→19:34)
[2019-01-13 05:38] LABS: BASO # 0.1 x10^3/uL (0.0-0.2); BASO % 0 % (0-3); EOS # 0.1 x10^3/uL (0.0-0.7); EOS % 1 % (0-3); HEMATOCRIT 27.2 % (39.0-53.0); HEMOGLOBIN 8.9 g/dL (13.0-17.5); LYMPH # 2.3 x10^3/uL (1.0-4.8); LYMPH % 14 % (24-48); MEAN CORPUSCULAR HEMOGLOBIN 33 pg (25-35); MEAN CORPUSCULAR HGB CONC 33 g/dL (31-37); MEAN CORPUSCULAR VOLUME 101 fL (79-100); MONO # 0.6 x10^3/uL (0.0-1.1); MONO % 4 % (0-9); NEUT # 13.2 x10^3/uL (1.8-7.7); NEUT % 81 % (31-73); PLATELET COUNT 167 x10^3/uL (140-400); RED CELL DISTRIBUTION WIDTH 17.6 % (11.5-14.5); WHITE BLOOD COUNT 16.2 x10^3/uL (4.0-11.0)
[2019-01-13 06:12] LABS: ALBUMIN 1.4 g/dL (3.4-5.0); ALBUMIN/GLOBULIN RATIO 0.3 (1.0-1.7); CREATININE 2.2 mg/dL (0.7-1.3); GFR 33.7; POTASSIUM 4.3 mmol/L (3.5-5.1); TOTAL BILIRUBIN 11.3 mg/dL (0.2-1.0); TOTAL PROTEIN 6.1 g/dL (6.4-8.2)
[2019-01-13 06:48] LABS: PROTHROMBIN TIME PATIENT 16.1 SEC (11.7-14.0)
--- NOTE | 2019-01-13 07:25 | PDOC ---
Infectious Disease Note Subjective Subjective Sedated Orally intubated FiO2 70 PEEP 10 Tube feedings off ROS ROS cont fever no n/v/d Vital Sign Vital Signs Vital Signs Date Time Temp Pulse Resp B/P (MAP) Pulse Ox O2 Delivery O2 Flow Rate FiO2 01/13/19 06:00 105 19 90/33 (52) 96 Ventilator 01/13/19 04:00 100.7 100.7 Physical Exam PHYSICAL EXAM GENERAL: Orally intubated and sedated, mitts HEENT: Pupils equal, ETT and OGT ABDOMEN: Obese, soft, hypoactive BS : - [place] EXTREMITIES: Trace edema lower extremities bilaterally. LLE ecchymosis. SKIN: Warm to touch. No rash , bruising /subcut hematoma NEUROLOGIC: Sedated PIV s clean Labs Lab Laboratory Tests Test 01/12/19 08:00 01/12/19 08:20 01/12/19 11:20 01/12/19 13:14 O2 Saturation 85 % (92-99) Arterial Blood pH 7.44 (7.35-7.45) Arterial Blood pCO2 at Patient Temp 41 mmHg (35-46) Arterial Blood pO2 at Patient Temp 53 mmHg (85-108) Arterial Blood HCO3 27 mmol/L (21-28) Arterial Blood Base Excess 2 mmol/L (-3-3) FiO2 80 Influenza Type A Antigen Negative (NEGATIVE) Influenza Type B Antigen Negative (NEGATIVE) Prothrombin Time 15.6 SEC (11.7-14.0) Prothromb Time International Ratio 1.3 (0.8-1.1) Total Bilirubin 10.9 mg/dL (0.2-1.0) Direct Bilirubin 9.4 mg/dL (0.0-0.2) Aspartate Amino Transf (AST/SGOT) 245 U/L (15-37) Alanine Aminotransferase (ALT/SGPT) 107 U/L (16-63) Alkaline Phosphatase 124 U/L (46-116) Total Protein 6.1 g/dL (6.4-8.2) Albumin 1.7 g/dL (3.4-5.0) Glucose (Fingerstick) 94 mg/dL (70-99) Test 01/12/19 17:56 01/13/19 05:15 01/13/19 05:21 01/13/19 05:45 Glucose (Fingerstick) 85 mg/dL (70-99) 82 mg/dL (70-99) White Blood Count 16.2 x10^3/uL (4.0-11.0) Red Blood Count 2.70 x10^6/uL (4.30-5.70) Hemoglobin 8.9 g/dL (13.0-17.5) Hematocrit 27.2 % (39.0-53.0) Mean Corpuscular Volume 101 fL (79-100) Mean Corpuscular Hemoglobin 33 pg (25-35) Mean Corpuscular Hemoglobin Concent 33 g/dL (31-37) Red Cell Distribution Width 17.6 % (11.5-14.5) Platelet Count 167 x10^3/uL (140-400) Neutrophils (%) (Auto) 81 % (31-73) Lymphocytes (%) (Auto) 14 % (24-48) Monocytes (%) (Auto) 4 % (0-9) Eosinophils (%) (Auto) 1 % (0-3) Basophils (%) (Auto) 0 % (0-3) Neutrophils # (Auto) 13.2 x10^3/uL (1.8-7.7) Lymphocytes # (Auto) 2.3 x10^3/uL (1.0-4.8) Monocytes # (Auto) 0.6 x10^3/uL (0.0-1.1) Eosinophils # (Auto) 0.1 x10^3/uL (0.0-0.7) Basophils # (Auto) 0.1 x10^3/uL (0.0-0.2) Sodium Level 147 mmol/L (136-145) Potassium Level 4.3 mmol/L (3.5-5.1) Chloride Level 111 mmol/L (98-107) Carbon Dioxide Level 25 mmol/L (21-32) Anion Gap 11 (6-14) Blood Urea Nitrogen 73 mg/dL (8-26) Creatinine 2.2 mg/dL (0.7-1.3) Estimated GFR (Cockcroft-Gault) 33.7 BUN/Creatinine Ratio 33 (6-20) Glucose Level 88 mg/dL (70-99) Calcium Level 7.0 mg/dL (8.5-10.1) Total Bilirubin 11.3 mg/dL (0.2-1.0) Aspartate Amino Transf (AST/SGOT) 236 U/L (15-37) Alanine Aminotransferase (ALT/SGPT) 92 U/L (16-63) Alkaline Phosphatase 155 U/L (46-116) Total Protein 6.1 g/dL (6.4-8.2) Albumin 1.4 g/dL (3.4-5.0) Albumin/Globulin Ratio 0.3 (1.0-1.7) Prothrombin Time 16.1 SEC (11.7-14.0) Prothromb Time International Ratio 1.3 (0.8-1.1) Micro Microbiology 01/08/19 Blood Culture - Preliminary, Resulted NO GROWTH AFTER 3 DAYS 01/08/19 Urine Culture - Final, Complete 01/08/19 Urine Culture Result 1 (ELMA) - Final, Complete Objective Assessment Hypotension - off pressors Fever - likely sec to Withdrawl Leukocytosis - ? reactive, improved Lactic acidosis - better Resp failure now intubated ? UTI. cultures neg Anemia - s/p PRBCs GI Bleed - s/p EGD 01/08 - Reflux esophagitis. ? recent M-W tear. Alcoholic gastritis. Transaminitis - better ? pancreatitis Rhabdo CK 965 ETOH abuse with mild ascites Electrolyte abnormalities Obstructive resp issues Left leg echymosis DOMONIQUE Plan Plan of Care Cont Zosyn. and zyvox Procalcitonin 4.70 Sputum culture in process today's labs pending need albumin to improve renal perfusion Critically ill LETTY ALEXIS MD Jan 13, 2019 07:25
[2019-01-13] MEDS: PANTOPRAZOLE IV PUSH 40 MG VIAL. IVP SCH (07:38)
[2019-01-13] MEDS: INSULIN LISPRO 300 UNITS/3 ML VIAL. SQ SCH ×3 (07:39→17:00)
[2019-01-13 07:59] LABS: BASE EXCESS ABG -2 mmol/L (-3-3); HCO3 ABG 23 mmol/L (21-28); PCO2 ABG 41 mmHg (35-46); PO2 ABG 72 mmHg (85-108); SAT O2 ABG 92 % (92-99)
--- NOTE | 2019-01-13 08:38 | PDOC ---
PROGRESS NOTES Chief Complaint Chief Complaint Acute respi falure, IPPV - 01.08, fluid overload? vs Atypical infection HEMATEMESIS in A HEAVY DRINKER -Atrophic gastritis, ?MW tear BUT NO ACTIVE GIB - s.po STAT EGD 01/08 SEVERE PCM - albumin 1,7 -s/p albumin 01/09 - off pressors by 01/10 MInimal ascites - by US and CT HYPOTENSION, s/p, pressors standby, albumin, blood products if needed Coagulopathy - s/p vit K, HEPATIC enceph - ammonia midly high 60-90s - lactulose,CA HIGH residuals TRAMSAMINITIS with ELEVATED TB- per GI (TB 9), AST 300s-500s HEp C antibody positive LEft leg bruise, in this coagulopathic anemic pt sec to fall 2 weeks ago - monitor ELEAVTED AGAP acidosis, renal consulted, can check PH in ABG - better History of Present Illness History of Present Illness Mr Ballard is a 38 yo M w/ PMHx heavy ETOH abuse admitted with massive hematemesis on 01/07/19, was emergently intubated and admitted to ICU. S/p EGD, no active GIB, poss MW, atrophic gastritis, off SANDOSTATIN, CONT PPI gtt, SCDS. AMMONIA 60-90s - started lactulose, qdaily per GI, HEp c AB positive - negative PCR HIGH GASTRIC RESIDUALS 01/10/19, had to stop TF Intubated, sedated - needed to vecuronium per RN 01/12: PEEP 10, Fi O2 100% - was not ready to extubate weekend. CXR shows more edema, Echo shows no valvular or pressure abnormalities, off pressor since 01/09, UO ok but Cr up to 1.8 today. Febrile 101.2F yesterday afternoon and 100.7F this morning. TF off 2/2 high residuals. KUB shows no obstruction but possible ileus. No BM. Bilirubin increasing to 11.3, Cr increasing to 2.2. Albumin decreased. More edematous today. BP lower. PEEP 10, FiO2 100%. D/w and mother bedside PLAN Lactulose TID. If residuals are still high will need to start enemas. Albumin x1 now Cards, pulmo, GI, nephrology on case NO bleeding so far since admission Will need to d/w nephrology with Cr elevation and pulmonary edema, progostically this is a poor sign cc ill prog guarded, mentation might be a problem in extubating in this alcoholic CC time 47 minutes Vitals Vitals Vital Signs Date Time Temp Pulse Resp B/P (MAP) Pulse Ox O2 Delivery O2 Flow Rate FiO2 01/13/19 07:47 98 Ventilator 01/13/19 06:00 105 19 90/33 (52) 01/13/19 04:00 100.7 100.7 Physical Exam Physical Exam GENERAL: Orally intubated and sedated, mitts HEENT: Pupils equal, ETT and OGT ABDOMEN: Obese, soft, hypoactive BS : - Poll[place] EXTREMITIES: Trace edema lower extremities bilaterally. LLE ecchymosis. SKIN: Warm to touch. No rash , bruising /subcut hematoma NEUROLOGIC: Sedated PIV s clean General: Other (tachypneic 30s) Heart: Regular rate, Normal S1, Normal S2 Lungs: Other (decrease bs) Abdomen: Soft, No tenderness, Other (pot belly possible fluid wave) Extremities: No clubbing, No cyanosis, Normal pulses, Other (left leg is bruised from a fall 2-3 weeks ago) Labs LABS Laboratory Tests Test 01/12/19 11:20 01/12/19 13:14 01/12/19 17:56 01/13/19 05:15 Prothrombin Time 15.6 SEC (11.7-14.0) Prothromb Time International Ratio 1.3 (0.8-1.1) Total Bilirubin 10.9 mg/dL (0.2-1.0) 11.3 mg/dL (0.2-1.0) Direct Bilirubin 9.4 mg/dL (0.0-0.2) Aspartate Amino Transf (AST/SGOT) 245 U/L (15-37) 236 U/L (15-37) Alanine Aminotransferase (ALT/SGPT) 107 U/L (16-63) 92 U/L (16-63) Alkaline Phosphatase 124 U/L (46-116) 155 U/L (46-116) Total Protein 6.1 g/dL (6.4-8.2) 6.1 g/dL (6.4-8.2) Albumin 1.7 g/dL (3.4-5.0) 1.4 g/dL (3.4-5.0) Glucose (Fingerstick) 94 mg/dL (70-99) 85 mg/dL (70-99) White Blood Count 16.2 x10^3/uL (4.0-11.0) Red Blood Count 2.70 x10^6/uL (4.30-5.70) Hemoglobin 8.9 g/dL (13.0-17.5) Hematocrit 27.2 % (39.0-53.0) Mean Corpuscular Volume 101 fL (79-100) Mean Corpuscular Hemoglobin 33 pg (25-35) Mean Corpuscular Hemoglobin Concent 33 g/dL (31-37) Red Cell Distribution Width 17.6 % (11.5-14.5) Platelet Count 167 x10^3/uL (140-400) Neutrophils (%) (Auto) 81 % (31-73) Lymphocytes (%) (Auto) 14 % (24-48) Monocytes (%) (Auto) 4 % (0-9) Eosinophils (%) (Auto) 1 % (0-3) Basophils (%) (Auto) 0 % (0-3) Neutrophils # (Auto) 13.2 x10^3/uL (1.8-7.7) Lymphocytes # (Auto) 2.3 x10^3/uL (1.0-4.8) Monocytes # (Auto) 0.6 x10^3/uL (0.0-1.1) Eosinophils # (Auto) 0.1 x10^3/uL (0.0-0.7) Basophils # (Auto) 0.1 x10^3/uL (0.0-0.2) Sodium Level 147 mmol/L (136-145) Potassium Level 4.3 mmol/L (3.5-5.1) Chloride Level 111 mmol/L (98-107) Carbon Dioxide Level 25 mmol/L (21-32) Anion Gap 11 (6-14) Blood Urea Nitrogen 73 mg/dL (8-26) Creatinine 2.2 mg/dL (0.7-1.3) Estimated GFR (Cockcroft-Gault) 33.7 BUN/Creatinine Ratio 33 (6-20) Glucose Level 88 mg/dL (70-99) Calcium Level 7.0 mg/dL (8.5-10.1) Albumin/Globulin Ratio 0.3 (1.0-1.7) Test 01/13/19 05:21 01/13/19 05:45 Glucose (Fingerstick) 82 mg/dL (70-99) Prothrombin Time 16.1 SEC (11.7-14.0) Prothromb Time International Ratio 1.3 (0.8-1.1) Assessment and Plan Assessmemt and Plan Problems Medical Problems: (1) Acute hepatic encephalopathy Status: Acute (2) Acute upper GI bleed Status: Acute (3) Ascites Status: Acute (4) Hypokalemia Status: Acute (5) Multiple organ system failure Status: Acute (6) Severe sepsis with acute organ dysfunction Status: Acute Comment Review of Relevant I have reviewed the following items karen (where applicable) has been applied. Labs Laboratory Tests Test 01/11/19 09:00 01/12/19 06:20 01/12/19 08:00 01/12/19 08:20 O2 Saturation 88 % (92-99) 85 % (92-99) Arterial Blood pH 7.45 (7.35-7.45) 7.44 (7.35-7.45) Arterial Blood pCO2 at Patient Temp 44 mmHg (35-46) 41 mmHg (35-46) Arterial Blood pO2 at Patient Temp 56 mmHg (85-108) 53 mmHg (85-108) Arterial Blood HCO3 30 mmol/L (21-28) 27 mmol/L (21-28) Arterial Blood Base Excess 5 mmol/L (-3-3) 2 mmol/L (-3-3) FiO2 70 80 White Blood Count 24.5 x10^3/uL (4.0-11.0) Red Blood Count 2.90 x10^6/uL (4.30-5.70) Hemoglobin 9.6 g/dL (13.0-17.5) Hematocrit 29.2 % (39.0-53.0) Mean Corpuscular Volume 101 fL (79-100) Mean Corpuscular Hemoglobin 33 pg (25-35) Mean Corpuscular Hemoglobin Concent 33 g/dL (31-37) Red Cell Distribution Width 16.8 % (11.5-14.5) Platelet Count 211 x10^3/uL (140-400) Neutrophils (%) (Auto) 71 % (31-73) Lymphocytes (%) (Auto) 21 % (24-48) Monocytes (%) (Auto) 6 % (0-9) Eosinophils (%) (Auto) 1 % (0-3) Basophils (%) (Auto) 2 % (0-3) Neutrophils # (Auto) 17.4 x10^3/uL (1.8-7.7) Lymphocytes # (Auto) 5.1 x10^3/uL (1.0-4.8) Monocytes # (Auto) 1.4 x10^3/uL (0.0-1.1) Eosinophils # (Auto) 0.1 x10^3/uL (0.0-0.7) Basophils # (Auto) 0.4 x10^3/uL (0.0-0.2) Segmented Neutrophils % 61 % (35-66) Band Neutrophils % 13 % (0-9) Lymphocytes % 14 % (24-48) Monocytes % 5 % (0-10) Eosinophils % 2 % (0-5) Metamyelocytes % 3 % (0-0) Myelocytes % 2 % (0-0) Nucleated Red Blood Cells 1 Toxic Granulation Mod Toxic Vacuolation Slight Platelet Estimate Adequate (ADEQUATE) Polychromasia Slight Anisocytosis Slight Sodium Level 146 mmol/L (136-145) Potassium Level 4.4 mmol/L (3.5-5.1) Chloride Level 109 mmol/L (98-107) Carbon Dioxide Level 29 mmol/L (21-32) Anion Gap 8 (6-14) Blood Urea Nitrogen 59 mg/dL (8-26) Creatinine 1.8 mg/dL (0.7-1.3) Estimated GFR (Cockcroft-Gault) 42.4 Glucose Level 85 mg/dL (70-99) Calcium Level 6.9 mg/dL (8.5-10.1) Influenza Type A Antigen Negative (NEGATIVE) Influenza Type B Antigen Negative (NEGATIVE) Test 01/12/19 11:20 01/12/19 13:14 01/12/19 17:56 01/13/19 05:15 Prothrombin Time 15.6 SEC (11.7-14.0) Prothromb Time International Ratio 1.3 (0.8-1.1) Total Bilirubin 10.9 mg/dL (0.2-1.0) 11.3 mg/dL (0.2-1.0) Direct Bilirubin 9.4 mg/dL (0.0-0.2) Aspartate Amino Transf (AST/SGOT) 245 U/L (15-37) 236 U/L (15-37) Alanine Aminotransferase (ALT/SGPT) 107 U/L (16-63) 92 U/L (16-63) Alkaline Phosphatase 124 U/L (46-116) 155 U/L (46-116) Total Protein 6.1 g/dL (6.4-8.2) 6.1 g/dL (6.4-8.2) Albumin 1.7 g/dL (3.4-5.0) 1.4 g/dL (3.4-5.0) Glucose (Fingerstick) 94 mg/dL (70-99) 85 mg/dL (70-99) White Blood Count 16.2 x10^3/uL (4.0-11.0) Red Blood Count 2.70 x10^6/uL (4.30-5.70) Hemoglobin 8.9 g/dL (13.0-17.5) Hematocrit 27.2 % (39.0-53.0) Mean Corpuscular Volume 101 fL (79-100) Mean Corpuscular Hemoglobin 33 pg (25-35) Mean Corpuscular Hemoglobin Concent 33 g/dL (31-37) Red Cell Distribution Width 17.6 % (11.5-14.5) Platelet Count 167 x10^3/uL (140-400) Neutrophils (%) (Auto) 81 % (31-73) Lymphocytes (%) (Auto) 14 % (24-48) Monocytes (%) (Auto) 4 % (0-9) Eosinophils (%) (Auto) 1 % (0-3) Basophils (%) (Auto) 0 % (0-3) Neutrophils # (Auto) 13.2 x10^3/uL (1.8-7.7) Lymphocytes # (Auto) 2.3 x10^3/uL (1.0-4.8) Monocytes # (Auto) 0.6 x10^3/uL (0.0-1.1) Eosinophils # (Auto) 0.1 x10^3/uL (0.0-0.7) Basophils # (Auto) 0.1 x10^3/uL (0.0-0.2) Sodium Level 147 mmol/L (136-145) Potassium Level 4.3 mmol/L (3.5-5.1) Chloride Level 111 mmol/L (98-107) Carbon Dioxide Level 25 mmol/L (21-32) Anion Gap 11 (6-14) Blood Urea Nitrogen 73 mg/dL (8-26) Creatinine 2.2 mg/dL (0.7-1.3) Estimated GFR (Cockcroft-Gault) 33.7 BUN/Creatinine Ratio 33 (6-20) Glucose Level 88 mg/dL (70-99) Calcium Level 7.0 mg/dL (8.5-10.1) Albumin/Globulin Ratio 0.3 (1.0-1.7) Test 01/13/19 05:21 01/13/19 05:45 Glucose (Fingerstick) 82 mg/dL (70-99) Prothrombin Time 16.1 SEC (11.7-14.0) Prothromb Time International Ratio 1.3 (0.8-1.1) Laboratory Tests Test 01/12/19 11:20 01/12/19 13:14 01/12/19 17:56 01/13/19 05:15 Prothrombin Time 15.6 SEC (11.7-14.0) Prothromb Time International Ratio 1.3 (0.8-1.1) Total Bilirubin 10.9 mg/dL (0.2-1.0) 11.3 mg/dL (0.2-1.0) Direct Bilirubin 9.4 mg/dL (0.0-0.2) Aspartate Amino Transf (AST/SGOT) 245 U/L (15-37) 236 U/L (15-37) Alanine Aminotransferase (ALT/SGPT) 107 U/L (16-63) 92 U/L (16-63) Alkaline Phosphatase 124 U/L (46-116) 155 U/L (46-116) Total Protein 6.1 g/dL (6.4-8.2) 6.1 g/dL (6.4-8.2) Albumin 1.7 g/dL (3.4-5.0) 1.4 g/dL (3.4-5.0) Glucose (Fingerstick) 94 mg/dL (70-99) 85 mg/dL (70-99) White Blood Count 16.2 x10^3/uL (4.0-11.0) Red Blood Count 2.70 x10^6/uL (4.30-5.70) Hemoglobin 8.9 g/dL (13.0-17.5) Hematocrit 27.2 % (39.0-53.0) Mean Corpuscular Volume 101 fL (79-100) Mean Corpuscular Hemoglobin 33 pg (25-35) Mean Corpuscular Hemoglobin Concent 33 g/dL (31-37) Red Cell Distribution Width 17.6 % (11.5-14.5) Platelet Count 167 x10^3/uL (140-400) Neutrophils (%) (Auto) 81 % (31-73) Lymphocytes (%) (Auto) 14 % (24-48) Monocytes (%) (Auto) 4 % (0-9) Eosinophils (%) (Auto) 1 % (0-3) Basophils (%) (Auto) 0 % (0-3) Neutrophils # (Auto) 13.2 x10^3/uL (1.8-7.7) Lymphocytes # (Auto) 2.3 x10^3/uL (1.0-4.8) Monocytes # (Auto) 0.6 x10^3/uL (0.0-1.1) Eosinophils # (Auto) 0.1 x10^3/uL (0.0-0.7) Basophils # (Auto) 0.1 x10^3/uL (0.0-0.2) Sodium Level 147 mmol/L (136-145) Potassium Level 4.3 mmol/L (3.5-5.1) Chloride Level 111 mmol/L (98-107) Carbon Dioxide Level 25 mmol/L (21-32) Anion Gap 11 (6-14) Blood Urea Nitrogen 73 mg/dL (8-26) Creatinine 2.2 mg/dL (0.7-1.3) Estimated GFR (Cockcroft-Gault) 33.7 BUN/Creatinine Ratio 33 (6-20) Glucose Level 88 mg/dL (70-99) Calcium Level 7.0 mg/dL (8.5-10.1) Albumin/Globulin Ratio 0.3 (1.0-1.7) Test 01/13/19 05:21 01/13/19 05:45 Glucose (Fingerstick) 82 mg/dL (70-99) Prothrombin Time 16.1 SEC (11.7-14.0) Prothromb Time International Ratio 1.3 (0.8-1.1) Microbiology 01/08/19 Blood Culture - Preliminary, Resulted NO GROWTH AFTER 4 DAYS 01/08/19 Urine Culture - Final, Complete 01/08/19 Urine Culture Result 1 (ELMA) - Final, Complete Medications Current Medications Sodium Chloride 1,000 ml @ 1,000 mls/hr 1X ONCE IV Last administered on 01/07/19at 19:27; Start 01/07/19 at 19:30; Stop 01/07/19 at 20:29; Status DC Ondansetron HCl (Zofran) 4 mg 1X ONCE IV Last administered on 01/07/19at 19:28; Start 01/07/19 at 19:30; Stop 01/07/19 at 19:31; Status DC Pantoprazole Sodium (PROTONIX VIAL for IV PUSH) 80 mg 1X ONCE IVP Last administered on 01/07/19at 19:50; Start 01/07/19 at 20:00; Stop 01/07/19 at 20:01; Status DC Pantoprazole Sodium 80 mg/ Sodium Chloride 100 ml @ 10 mls/hr 1X ONCE IV Last administered on 01/07/19at 20:00; Start 01/07/19 at 20:00; Stop 01/08/19 at 05:59; Status DC Sodium Chloride 1,000 ml @ 1,000 mls/hr 1X ONCE IV Last administered on 01/07/19at 22:12; Start 01/07/19 at 21:00; Stop 01/07/19 at 21:59; Status DC Sodium Chloride 1,000 ml @ 1,000 mls/hr 1X ONCE IV Last administered on 01/07/19at 20:40; Start 01/07/19 at 20:45; Stop 01/07/19 at 21:44; Status DC Potassium Chloride/Sodium Chloride 1,000 ml @ 75 mls/hr 1X ONCE IV Last administered on 01/07/19at 21:16; Start 01/07/19 at 21:30; Stop 01/08/19 at 10:49; Status DC Vancomycin HCl (Vanco Per Pharmacy) 1 each PRN DAILY PRN MC SEE COMMENTS Last administered on 01/08/19at 00:43; Start 01/07/19 at 21:00; Stop 01/08/19 at 06:39; Status DC Piperacillin Sod/ Tazobactam Sod (Zosyn Per Pharmacy) 1 each PRN DAILY PRN MC SEE COMMENTS; Start 01/07/19 at 21:00 Piperacillin Sod/ Tazobactam Sod 3.375 gm/Sodium Chloride 50 ml @ 100 mls/hr Q6HRS IV Last administered on 01/13/19at 06:15; Start 01/07/19 at 22:00 Vancomycin HCl 2 gm/Sodium Chloride 500 ml @ 250 mls/hr 1X ONCE IV Last administered on 01/07/19at 22:11; Start 01/07/19 at 22:00; Stop 01/07/19 at 23:59; Status DC Lorazepam (Ativan Inj) 1 mg 1X ONCE IV Last administered on 01/07/19at 23:22; Start 01/07/19 at 23:30; Stop 01/07/19 at 23:31; Status DC Lorazepam (Ativan Inj) 2 mg STK-MED ONCE .ROUTE ; Start 01/07/19 at 23:20; Stop 01/07/19 at 23:21; Status DC Vancomycin HCl 1.5 gm/Sodium Chloride 500 ml @ 250 mls/hr Q12H IV ; Start 01/08/19 at 10:00; Stop 01/08/19 at 06:39; Status DC Vancomycin HCl (Vancomycin Trough Level) 1 each 1X ONCE MC ; Start 01/09/19 at 09:30; Stop 01/09/19 at 09:31; Status Cancel Ondansetron HCl (Zofran) 4 mg PRN Q6HRS PRN IVP NAUSEA/VOMITING; Start 01/08/19 at 04:00; Status Cancel Pantoprazole Sodium 80 mg/ Sodium Chloride 100 ml @ 10 mls/hr Q10H IV Last administered on 01/09/19at 02:00; Start 01/08/19 at 06:00; Stop 01/09/19 at 11:00; Status DC Multivitamins 10 ml/Thiamine HCl 100 mg/Folic Acid 1 mg/Sodium Chloride 1,011.2 ml @ 100 mls/ hr DAILY IV Last administered on 01/12/19at 10:29; Start 01/08/19 at 09:00; Stop 01/12/19 at 19:07; Status DC Lorazepam (Ativan Inj) 2 mg PRN Q1HR PRN IV For CIWA 8-14 Last administered on 01/09/19at 22:24; Start 01/08/19 at 07:15 Lorazepam (Ativan Inj) 4 mg PRN Q1HR PRN IV For CIWA 15 or greater; Start 01/08/19 at 07:15 Haloperidol Lactate (Haldol Inj) 5 mg PRN Q4HRS PRN IVP Hallucinatns,Confusn,Delirium; Start 01/08/19 at 07:15 Diphenhydramine HCl (Benadryl) 25 mg PRN Q15MIN PRN IVP EPS symptoms 2'Haldol admin; Start 01/08/19 at 07:15 Clonidine HCl (Catapres) 0.1 mg PRN Q1HR PRN PO SBP > 180 or DBP > 100, MRX3; Start 01/08/19 at 07:15 Sodium Bicarbonate (Sodium Bicarb Adult 8.4% Syr) 50 meq 1X ONCE IV Last administered on 01/08/19at 08:04; Start 01/08/19 at 08:00; Stop 01/08/19 at 08:01; Status DC Propofol 100 ml @ As Directed STK-MED ONCE IV ; Start 01/08/19 at 08:19; Stop 01/08/19 at 08:19; Status DC Succinylcholine Chloride (Anectine) 200 mg STK-MED ONCE .ROUTE ; Start 01/08/19 at 08:19; Stop 01/08/19 at 08:19; Status DC Propofol 100 ml @ As Directed STK-MED ONCE IV ; Start 01/08/19 at 08:29; Stop 01/08/19 at 08:30; Status DC Fentanyl Citrate 30 ml @ 0 mls/hr CONT PRN PRN IV PER PROTOCOL Last administered on 01/13/19at 03:21; Start 01/08/19 at 09:00 Naloxone HCl (Narcan) 0.4 mg PRN Q2MIN PRN IV SEE INSTRUCTIONS; Start 01/08/19 at 09:00 Sodium Chloride 1,000 ml @ 25 mls/hr Q24H IV Last administered on 01/12/19at 22:14; Start 01/08/19 at 08:54 Fentanyl Citrate (Fentanyl 2ml Vial) 100 mcg STK-MED ONCE .ROUTE ; Start 01/08/19 at 08:55; Stop 01/08/19 at 08:55; Status DC Octreotide Acetate 500 mcg/ Sodium Chloride 101 ml @ 0 mls/hr CONT PRN IV SEE I/O RECORD Last administered on 01/08/19at 13:56; Start 01/08/19 at 09:00; Sto p 01/08/19 at 16:55; Status DC Phytonadione (Vitamin K Ampule) 10 mg 1X ONCE SQ Last administered on 01/08/19at 09:56; Start 01/08/19 at 09:15; Stop 01/08/19 at 09:16; Status DC Metoclopramide HCl (Reglan Vial) 10 mg 1X ONCE IVP Last administered on 01/08/19at 14:36; Start 01/08/19 at 11:00; Stop 01/08/19 at 11:01; Status DC Midazolam HCl (Versed) 5 mg STK-MED ONCE .ROUTE ; Start 01/08/19 at 09:00; Stop 01/08/19 at 09:01; Status DC Acetaminophen (Tylenol) 500 mg PRN Q6HRS PRN PO MILD PAIN / TEMP Last administered on 01/11/19at 17:46; Start 01/08/19 at 09:15 Tramadol HCl (Ultram) 50 mg PRN Q6HRS PRN PO PAIN MODERATE; Start 01/08/19 at 09:15 Morphine Sulfate (Morphine Sulfate) 2 mg PRN Q2HR PRN IV PAIN; Start 01/08/19 at 09:15 Ondansetron HCl (Zofran) 4 mg PRN Q6HRS PRN IVP NAUSEA/VOMITING, 1ST CHOICE; Start 01/08/19 at 09:15 Fentanyl Citrate (Fentanyl 2ml Vial) 100 mcg 1X ONCE IVP Last administered on 01/08/19at 09:42; Start 01/08/19 at 09:45; Stop 01/08/19 at 09:46; Status DC Midazolam HCl (Versed) 5 mg 1X ONCE IV Last administered on 01/08/19at 09:41; Start 01/08/19 at 09:45; Stop 01/08/19 at 09:46; Status DC Succinylcholine Chloride (Anectine) 200 mg 1X ONCE IV Last administered on 01/08/19at 09:41; Start 01/08/19 at 09:45; Stop 01/08/19 at 09:46; Status DC Propofol 100 ml @ 1.524 mls/ hr CONT PRN IV SEE I/O RECORD Last administered on 01/13/19at 03:20; Start 01/08/19 at 09:45 Midazolam HCl 100 ml @ 5 mls/hr CONT PRN IV SEE I/O RECORD Last administered on 01/13/19at 02:22; Start 01/08/19 at 11:15 Vecuronium [place] (Norcuron Bolus) 6 mg PRN Q4HRS PRN IV VENT ASYNCHRONY Last administered on 01/10/19at 15:59; Start 01/08/19 at 12:00 Benzocaine (Hurricaine One) 2 spray STK-MED ONCE .ROUTE ; Start 01/07/19 at 12:00; Stop 01/08/19 at 14:20; Status DC Lidocaine HCl (Xylocaine 2% Topical 5gm Tube) 5 amanda STK-MED ONCE TP ; Start 01/07/19 at 12:00; Stop 01/08/19 at 14:20; Status DC Lactobacillus Rhamnosus (Culturelle) 1 cap BID PO ; Start 01/08/19 at 21:00; Stop 01/09/19 at 09:29; Status DC Acetaminophen (Tylenol Supp) 650 mg PRN Q6HRS PRN CA MILD PAIN / TEMP Last administered on 01/09/19at 23:44; Start 01/08/19 at 18:15 Norepinephrine Bitartrate 250 ml @ 18.938 mls/ hr CONT PRN IV SEE I/O RECORD Last administered on 01/09/19at 01:00; Start 01/09/19 at 01:45 Potassium Chloride (Klor-Con) 40 meq 1X ONCE PO Last administered on 01/09/19at 11:34; Start 01/09/19 at 09:45; Stop 01/09/19 at 09:46; Status DC Metoclopramide HCl (Reglan Vial) 10 mg PRN Q6HRS PRN IVP NAUSEA/VOMITING, 2ND CHOICE; Start 01/09/19 at 10:15 Albumin Human 100 ml @ 100 mls/hr 1X ONCE IV Last administered on 01/09/19at 10:49; Start 01/09/19 at 10:15; Stop 01/09/19 at 11:14; Status DC Lactulose (LACTULOSE 300ML for RECTAL) 200 gm Q6HRS CA ; Start 01/09/19 at 12:00; Stop 01/09/19 at 11:04; Status DC Insulin Human Lispro (HumaLOG) 0-9 UNITS TIDWMEALS SQ ; Start 01/09/19 at 12:00 Dextrose (Dextrose 50%-Water Syringe) 12.5 gm PRN Q15MIN PRN IV SEE COMMENTS; Start 01/09/19 at 10:30 Fentanyl Citrate (Fentanyl 600 Mcg/30 ml BREAKER OFF) 600 mcg STK-MED ONCE IV ; Start 01/08/19 at 15:25; Stop 01/09/19 at 10:27; Status DC Pantoprazole Sodium (PROTONIX VIAL for IV PUSH) 40 mg DAILYAC IVP Last administered on 01/13/19at 07:38; Start 01/10/19 at 07:30 Lactulose (Lactulose) 20 gm DAILY PO Last administered on 01/12/19at 08:24; Start 01/09/19 at 11:30; Stop 01/12/19 at 10:12; Status DC Potassium Bicarbonate (Potassium Effervescent Tablet) 40 meq BIDWMEALS FT Last administered on 01/10/19at 17:49; Start 01/10/19 at 09:00; Stop 01/11/19 at 09:20; Status DC Linezolid/Dextrose 300 ml @ 300 mls/hr Q12HR IV Last administered on 01/13/19at 07:40; Start 01/11/19 at 13:00 Perflutren Protein Type A Microsphe (Optison) 0.66 mg 1X ONCE IV ; Start 01/11/19 at 13:30; Stop 01/11/19 at 13:31; Status DC Albumin Human 100 ml @ 100 mls/hr 1X ONCE IV Last administered on 01/12/19at 08:25; Start 01/12/19 at 07:45; Stop 01/12/19 at 08:44; Status DC Lactulose (Lactulose) 20 gm PRN DAILY PRN PO constipation; Start 01/12/19 at 10:15 Acetaminophen (Tylenol) 650 mg PRN Q6HRS PRN PEG MILD PAIN / TEMP Last administered on 01/12/19at 16:45; Start 01/12/19 at 16:30 Vitals/I & O Vital Sign - Last 24 Hours 01/12/19 01/12/19 01/12/19 01/12/19 09:00 09:10 09:31 10:00 Pulse 114 116 Resp 20 20 20 B/P (MAP) 94/48 (63) 94/48 (63) Pulse Ox 98 92 98 98 O2 Delivery Ventilator Ventilator Ventilator Ventilator 01/12/19 01/12/19 01/12/19 01/12/19 11:00 12:00 12:00 12:55 Temp 99.5 99.5 Pulse 112 106 Resp 20 17 B/P (MAP) 94/51 (65) 88/45 (59) Pulse Ox 96 90 96 O2 Delivery Ventilator Ventilator Mechanical Ventilator Ventilator 01/12/19 01/12/19 01/12/19 01/12/19 13:00 14:00 15:00 15:13 Pulse 109 116 116 Resp 22 23 21 B/P (MAP) 94/46 (62) 95/46 (62) 91/43 (59) Pulse Ox 96 95 94 96 O2 Delivery Ventilator Ventilator Ventilator Ventilator 01/12/19 01/12/19 01/12/19 01/12/19 16:00 16:00 16:24 17:00 Temp 101.2 101.2 Pulse 118 115 Resp 23 21 B/P (MAP) 97/49 (65) 98/53 (68) Pulse Ox 95 95 O2 Delivery Mechanical Ventilator Ventilator Ventilator Ventilator 01/12/19 01/12/19 01/12/19 01/12/19 17:38 18:00 19:00 19:50 Pulse 116 114 Resp 19 19 B/P (MAP) 89/47 (61) 94/50 (65) Pulse Ox 94 96 97 97 O2 Delivery Ventilator Ventilator Ventilator Ventilator 01/12/19 01/12/19 01/12/19 01/12/19 20:00 20:00 21:00 21:20 Temp 99.2 99.2 Pulse 112 108 Resp 17 B/P (MAP) 82/45 (57) 93/49 (64) Pulse Ox 97 98 97 O2 Delivery Ventilator Mechanical Ventilator Ventilator Ventilator 01/12/19 01/12/19 01/12/1925/19 21:46 22:00 22:16 23:00 Pulse 106 105 Resp 18 18 18 18 B/P (MAP) 95/51 (66) 83/41 (55) Pulse Ox 98 98 99 100 O2 Delivery Ventilator Ventilator Ventilator Ventilator 01/12/19 01/13/19 01/13/19 01/13/19 23:59 00:01 00:17 01:00 Temp 97.9 97.9 Pulse 103 99 Resp 18 18 B/P (MAP) 93/40 (57) 85/37 (53) Pulse Ox 99 99 99 O2 Delivery Mechanical Ventilator Ventilator Ventilator Ventilator 01/13/19 01/13/19 01/13/19 01/13/19 02:00 02:40 03:00 03:21 Pulse 99 103 Resp 18 32 32 B/P (MAP) 91/41 (58) 113/69 (84) Pulse Ox 99 97 99 97 O2 Delivery Ventilator Ventilator Ventilator Ventilator 01/13/19 01/13/19 01/13/19 01/13/19 03:51 04:00 04:00 04:45 Temp 100.7 100.7 Pulse 90 Resp 26 22 B/P (MAP) 112/52 (72) Pulse Ox 97 98 99 O2 Delivery Ventilator Mechanical Ventilator Ventilator Ventilator 01/13/19 01/13/19 01/13/19 05:00 06:00 07:47 Pulse 104 105 Resp 20 19 B/P (MAP) 85/50 (62) 90/33 (52) Pulse Ox 96 96 98 O2 Delivery Ventilator Ventilator Ventilator Intake and Output 01/12/19 01/12/19 01/13/19 15:00 23:00 07:00 Intake Total 50 ml 1378 ml 1720.9 ml Output Total 485 ml 390 ml 230 ml Balance -435 ml 988 ml 1490.9 ml MERLE MEYER MD Jan 13, 2019 08:38
[2019-01-13] MEDS ORDERED: ALBUMIN HUMAN 5% 500 ML IV ONE (10:00)
[2019-01-13] MEDS: LACTULOSE 20 GM/30 ML SOLUTION. PO SCH ×3 (10:14→20:46)
[2019-01-13] MEDS: IV NORMAL SALINE 1000ML BAG 1,000 ML IV SCH (10:15)
--- NOTE | 2019-01-13 10:52 | PDOC ---
PULMONARY PROGRESS NOTES Subjective SEDATED ON AC MODE 10 PEEP 100 %, on propofol, versed, fentanyl, mod ett secretion, Vitals Vital Signs Date Time Temp Pulse Resp B/P (MAP) Pulse Ox O2 Delivery O2 Flow Rate FiO2 01/13/19 10:03 93 20 87/34 (51) 96 Ventilator 01/13/19 08:00 98.5 98.5 Comments ros as mentioned as above discussed w rn other sys otherwise neg on vent sedated Lungs: Other (decrease bs) Cardiovascular: S1, S2 Abdomen: Soft, Non-tender, Other (DISTENDED no mass) Extremities: Other (EDEMA) Skin: Warm Labs Laboratory Tests Test 01/12/19 06:20 01/12/19 08:00 01/12/19 08:20 01/12/19 11:20 White Blood Count 24.5 x10^3/uL (4.0-11.0) Red Blood Count 2.90 x10^6/uL (4.30-5.70) Hemoglobin 9.6 g/dL (13.0-17.5) Hematocrit 29.2 % (39.0-53.0) Mean Corpuscular Volume 101 fL (79-100) Mean Corpuscular Hemoglobin 33 pg (25-35) Mean Corpuscular Hemoglobin Concent 33 g/dL (31-37) Red Cell Distribution Width 16.8 % (11.5-14.5) Platelet Count 211 x10^3/uL (140-400) Neutrophils (%) (Auto) 71 % (31-73) Lymphocytes (%) (Auto) 21 % (24-48) Monocytes (%) (Auto) 6 % (0-9) Eosinophils (%) (Auto) 1 % (0-3) Basophils (%) (Auto) 2 % (0-3) Neutrophils # (Auto) 17.4 x10^3/uL (1.8-7.7) Lymphocytes # (Auto) 5.1 x10^3/uL (1.0-4.8) Monocytes # (Auto) 1.4 x10^3/uL (0.0-1.1) Eosinophils # (Auto) 0.1 x10^3/uL (0.0-0.7) Basophils # (Auto) 0.4 x10^3/uL (0.0-0.2) Segmented Neutrophils % 61 % (35-66) Band Neutrophils % 13 % (0-9) Lymphocytes % 14 % (24-48) Monocytes % 5 % (0-10) Eosinophils % 2 % (0-5) Metamyelocytes % 3 % (0-0) Myelocytes % 2 % (0-0) Nucleated Red Blood Cells 1 Toxic Granulation Mod Toxic Vacuolation Slight Platelet Estimate Adequate (ADEQUATE) Polychromasia Slight Anisocytosis Slight Sodium Level 146 mmol/L (136-145) Potassium Level 4.4 mmol/L (3.5-5.1) Chloride Level 109 mmol/L (98-107) Carbon Dioxide Level 29 mmol/L (21-32) Anion Gap 8 (6-14) Blood Urea Nitrogen 59 mg/dL (8-26) Creatinine 1.8 mg/dL (0.7-1.3) Estimated GFR (Cockcroft-Gault) 42.4 Glucose Level 85 mg/dL (70-99) Calcium Level 6.9 mg/dL (8.5-10.1) O2 Saturation 85 % (92-99) Arterial Blood pH 7.44 (7.35-7.45) Arterial Blood pCO2 at Patient Temp 41 mmHg (35-46) Arterial Blood pO2 at Patient Temp 53 mmHg (85-108) Arterial Blood HCO3 27 mmol/L (21-28) Arterial Blood Base Excess 2 mmol/L (-3-3) FiO2 80 Influenza Type A Antigen Negative (NEGATIVE) Influenza Type B Antigen Negative (NEGATIVE) Prothrombin Time 15.6 SEC (11.7-14.0) Prothromb Time International Ratio 1.3 (0.8-1.1) Total Bilirubin 10.9 mg/dL (0.2-1.0) Direct Bilirubin 9.4 mg/dL (0.0-0.2) Aspartate Amino Transf (AST/SGOT) 245 U/L (15-37) Alanine Aminotransferase (ALT/SGPT) 107 U/L (16-63) Alkaline Phosphatase 124 U/L (46-116) Total Protein 6.1 g/dL (6.4-8.2) Albumin 1.7 g/dL (3.4-5.0) Test 01/12/19 13:14 01/12/19 17:56 01/13/19 05:15 01/13/19 05:21 Glucose (Fingerstick) 94 mg/dL (70-99) 85 mg/dL (70-99) 82 mg/dL (70-99) White Blood Count 16.2 x10^3/uL (4.0-11.0) Red Blood Count 2.70 x10^6/uL (4.30-5.70) Hemoglobin 8.9 g/dL (13.0-17.5) Hematocrit 27.2 % (39.0-53.0) Mean Corpuscular Volume 101 fL (79-100) Mean Corpuscular Hemoglobin 33 pg (25-35) Mean Corpuscular Hemoglobin Concent 33 g/dL (31-37) Red Cell Distribution Width 17.6 % (11.5-14.5) Platelet Count 167 x10^3/uL (140-400) Neutrophils (%) (Auto) 81 % (31-73) Lymphocytes (%) (Auto) 14 % (24-48) Monocytes (%) (Auto) 4 % (0-9) Eosinophils (%) (Auto) 1 % (0-3) Basophils (%) (Auto) 0 % (0-3) Neutrophils # (Auto) 13.2 x10^3/uL (1.8-7.7) Lymphocytes # (Auto) 2.3 x10^3/uL (1.0-4.8) Monocytes # (Auto) 0.6 x10^3/uL (0.0-1.1) Eosinophils # (Auto) 0.1 x10^3/uL (0.0-0.7) Basophils # (Auto) 0.1 x10^3/uL (0.0-0.2) Sodium Level 147 mmol/L (136-145) Potassium Level 4.3 mmol/L (3.5-5.1) Chloride Level 111 mmol/L (98-107) Carbon Dioxide Level 25 mmol/L (21-32) Anion Gap 11 (6-14) Blood Urea Nitrogen 73 mg/dL (8-26) Creatinine 2.2 mg/dL (0.7-1.3) Estimated GFR (Cockcroft-Gault) 33.7 BUN/Creatinine Ratio 33 (6-20) Glucose Level 88 mg/dL (70-99) Calcium Level 7.0 mg/dL (8.5-10.1) Total Bilirubin 11.3 mg/dL (0.2-1.0) Aspartate Amino Transf (AST/SGOT) 236 U/L (15-37) Alanine Aminotransferase (ALT/SGPT) 92 U/L (16-63) Alkaline Phosphatase 155 U/L (46-116) Total Protein 6.1 g/dL (6.4-8.2) Albumin 1.4 g/dL (3.4-5.0) Albumin/Globulin Ratio 0.3 (1.0-1.7) Test 01/13/19 05:45 Prothrombin Time 16.1 SEC (11.7-14.0) Prothromb Time International Ratio 1.3 (0.8-1.1) Laboratory Tests Test 01/12/19 11:20 01/12/19 13:14 01/12/19 17:56 01/13/19 05:15 Prothrombin Time 15.6 SEC (11.7-14.0) Prothromb Time International Ratio 1.3 (0.8-1.1) Total Bilirubin 10.9 mg/dL (0.2-1.0) 11.3 mg/dL (0.2-1.0) Direct Bilirubin 9.4 mg/dL (0.0-0.2) Aspartate Amino Transf (AST/SGOT) 245 U/L (15-37) 236 U/L (15-37) Alanine Aminotransferase (ALT/SGPT) 107 U/L (16-63) 92 U/L (16-63) Alkaline Phosphatase 124 U/L (46-116) 155 U/L (46-116) Total Protein 6.1 g/dL (6.4-8.2) 6.1 g/dL (6.4-8.2) Albumin 1.7 g/dL (3.4-5.0) 1.4 g/dL (3.4-5.0) Glucose (Fingerstick) 94 mg/dL (70-99) 85 mg/dL (70-99) White Blood Count 16.2 x10^3/uL (4.0-11.0) Red Blood Count 2.70 x10^6/uL (4.30-5.70) Hemoglobin 8.9 g/dL (13.0-17.5) Hematocrit 27.2 % (39.0-53.0) Mean Corpuscular Volume 101 fL (79-100) Mean Corpuscular Hemoglobin 33 pg (25-35) Mean Corpuscular Hemoglobin Concent 33 g/dL (31-37) Red Cell Distribution Width 17.6 % (11.5-14.5) Platelet Count 167 x10^3/uL (140-400) Neutrophils (%) (Auto) 81 % (31-73) Lymphocytes (%) (Auto) 14 % (24-48) Monocytes (%) (Auto) 4 % (0-9) Eosinophils (%) (Auto) 1 % (0-3) Basophils (%) (Auto) 0 % (0-3) Neutrophils # (Auto) 13.2 x10^3/uL (1.8-7.7) Lymphocytes # (Auto) 2.3 x10^3/uL (1.0-4.8) Monocytes # (Auto) 0.6 x10^3/uL (0.0-1.1) Eosinophils # (Auto) 0.1 x10^3/uL (0.0-0.7) Basophils # (Auto) 0.1 x10^3/uL (0.0-0.2) Sodium Level 147 mmol/L (136-145) Potassium Level 4.3 mmol/L (3.5-5.1) Chloride Level 111 mmol/L (98-107) Carbon Dioxide Level 25 mmol/L (21-32) Anion Gap 11 (6-14) Blood Urea Nitrogen 73 mg/dL (8-26) Creatinine 2.2 mg/dL (0.7-1.3) Estimated GFR (Cockcroft-Gault) 33.7 BUN/Creatinine Ratio 33 (6-20) Glucose Level 88 mg/dL (70-99) Calcium Level 7.0 mg/dL (8.5-10.1) Albumin/Globulin Ratio 0.3 (1.0-1.7) Test 01/13/19 05:21 01/13/19 05:45 Glucose (Fingerstick) 82 mg/dL (70-99) Prothrombin Time 16.1 SEC (11.7-14.0) Prothromb Time International Ratio 1.3 (0.8-1.1) Comments cxr reviewed, 01/13 ett ok 1. Bilateral infiltrates ,no change Impression . IMPRESSION: 1. Acute respiratory failure, multifactorial, secondary to multiorgan failure. Now with worsening hypoxia. possible hepato-pulmonary shunt vs aspiration pneumonitis/ ARDS 2. End-stage liver disease with persistent abnormal LFT 3. Multiorgan failure. 4. Renal failure. ? hepato renal syndrome, needs HD 5. Acute gastrointestinal bleed.? MV Tear 6. Possible sepsis. 7. Leukocytosis. 8. Hematemesis. 9. Rhabdomyolysis. 10. Alcohol abuse. 11. Ascites. 12. Electrolyte abnormalities. 13. fever Imaging: EGD 01/08 E--NO VARICES. Erosions distally c/w reflux/repeated emesis. One quite long narrow erosion which could have been a M-W. No active bleeding or clot. G--Not much retained blood after OG suction and Reglan. NO gastric varices. Linear erosions along the rugae in fundus and body c/w alcoholic or stress gastritis. Scattered "bruises" from OG tube. No ulcer, etc. D--Normal to second portion. IMP: Reflux esophagitis. ? recent M-W tear. Alcoholic gastritis. No active bleeding or clot seen. Plan . cont vent support, setting reviewed, PEEP of 10, cont 100 Fi02 titration USP PROGNOSIS IS POOR 1. D/W RN AND and family 2. Continue antibiotics per Infectious Disease service. zyvox added for persistent fever, also on Zosyn 3. CVP 11 , adequate volume status 4. HD to be initiated today 5. Monitor hemoglobin and hematocrit. 6. Follow GI recommendation.f/u LFT as needed 7. Alcohol withdrawal protocol. 8. Nutrition, consider adding TPN 9. echo with bubble study Neg d/w family. all questions answered. d/w DR Urena cct 30 min FRED SMITH MD Jan 13, 2019 10:52
[2019-01-13] MEDS ORDERED: HEPARIN for IV BOLUS 10,000 UNIT/10 ML VIAL. ONE (10:59)
[2019-01-13] MEDS ORDERED: LIDOCAINE WITH 8.4% SOD BICARB 3 ML DISP.SYRIN. INJ ONE (11:00)
[2019-01-13] MEDS ORDERED: BISACODYL 10 MG SUPP.RECT. PR ONE (11:00)
[2019-01-13 11:04] LABS: FIO2 ABG 100
--- NOTE | 2019-01-13 11:08 | PDOC ---
Renal-Progress Notes Subjective Notes Notes INTUBATED History of Present Illness Hx of present illness NOT MUCH BETTER, RENAL FUNCTION NOW WORSE Vitals Vitals Vital Signs Date Time Temp Pulse Resp B/P (MAP) Pulse Ox O2 Delivery O2 Flow Rate FiO2 01/13/19 10:03 93 20 87/34 (51) 96 Ventilator 01/13/19 08:00 98.5 98.5 Weight Weight [ ] I.O. Intake and Output Intake and Output 01/13/19 07:00 Intake Total 3148.9 ml Output Total 1105 ml Balance 2043.9 ml IV Total 1833.9 ml Tube Feeding 915 ml Blood Product IV Normal Saline Flush 400 ml Output Urine Total 1105 ml Gastric Drainage Total 0 ml Labs Labs Laboratory Tests Test 01/12/19 11:20 01/12/19 13:14 01/12/19 17:56 01/13/19 05:15 Prothrombin Time 15.6 SEC (11.7-14.0) Prothromb Time International Ratio 1.3 (0.8-1.1) Total Bilirubin 10.9 mg/dL (0.2-1.0) 11.3 mg/dL (0.2-1.0) Direct Bilirubin 9.4 mg/dL (0.0-0.2) Aspartate Amino Transf (AST/SGOT) 245 U/L (15-37) 236 U/L (15-37) Alanine Aminotransferase (ALT/SGPT) 107 U/L (16-63) 92 U/L (16-63) Alkaline Phosphatase 124 U/L (46-116) 155 U/L (46-116) Total Protein 6.1 g/dL (6.4-8.2) 6.1 g/dL (6.4-8.2) Albumin 1.7 g/dL (3.4-5.0) 1.4 g/dL (3.4-5.0) Glucose (Fingerstick) 94 mg/dL (70-99) 85 mg/dL (70-99) White Blood Count 16.2 x10^3/uL (4.0-11.0) Red Blood Count 2.70 x10^6/uL (4.30-5.70) Hemoglobin 8.9 g/dL (13.0-17.5) Hematocrit 27.2 % (39.0-53.0) Mean Corpuscular Volume 101 fL (79-100) Mean Corpuscular Hemoglobin 33 pg (25-35) Mean Corpuscular Hemoglobin Concent 33 g/dL (31-37) Red Cell Distribution Width 17.6 % (11.5-14.5) Platelet Count 167 x10^3/uL (140-400) Neutrophils (%) (Auto) 81 % (31-73) Lymphocytes (%) (Auto) 14 % (24-48) Monocytes (%) (Auto) 4 % (0-9) Eosinophils (%) (Auto) 1 % (0-3) Basophils (%) (Auto) 0 % (0-3) Neutrophils # (Auto) 13.2 x10^3/uL (1.8-7.7) Lymphocytes # (Auto) 2.3 x10^3/uL (1.0-4.8) Monocytes # (Auto) 0.6 x10^3/uL (0.0-1.1) Eosinophils # (Auto) 0.1 x10^3/uL (0.0-0.7) Basophils # (Auto) 0.1 x10^3/uL (0.0-0.2) Sodium Level 147 mmol/L (136-145) Potassium Level 4.3 mmol/L (3.5-5.1) Chloride Level 111 mmol/L (98-107) Carbon Dioxide Level 25 mmol/L (21-32) Anion Gap 11 (6-14) Blood Urea Nitrogen 73 mg/dL (8-26) Creatinine 2.2 mg/dL (0.7-1.3) Estimated GFR (Cockcroft-Gault) 33.7 BUN/Creatinine Ratio 33 (6-20) Glucose Level 88 mg/dL (70-99) Calcium Level 7.0 mg/dL (8.5-10.1) Albumin/Globulin Ratio 0.3 (1.0-1.7) Test 01/13/19 05:21 01/13/19 05:45 Glucose (Fingerstick) 82 mg/dL (70-99) Prothrombin Time 16.1 SEC (11.7-14.0) Prothromb Time International Ratio 1.3 (0.8-1.1) Micro Micro Microbiology 01/08/19 Blood Culture - Preliminary, Resulted NO GROWTH AFTER 4 DAYS 01/08/19 Urine Culture - Final, Complete 01/08/19 Urine Culture Result 1 (ELMA) - Final, Complete Review of Systems Constitutional: yes: unresponsive Physical Exam General Appearance: other (INTUBATED) Skin: warm Respiratory: decreased breath sounds Abdomen: soft, distension, other (HYPOACTIVE) Genitourinary: bladder flat, esteves catheter Extremities: pulses present, no edema Neurology: other (SEDATED) Assessment Assessment IMP DOMONIQUE-ATN WITH ANURIA-HEPATORENAL ACUTE RESPIRATORY FAILURE-SUSPECT ARDS MET ACIDOSIS-CONTROLLED ACUTE ATOP CHRONIC LIVER FAILURE ANEMIA SIRS VS SEPSIS WITH HYPOTENSION LEUCOCYTOSIS HEPATIC ENCEPHALOPATHY ASCITES PLAN PT REMAINS CRITICALLY ILL CONT ANTIBIOTICS CONT PRESSORS ALBUMIN NEEDED START ARANESP NOT TOLERATING TF WILL START TPN PT ALSO NEED DIALYSIS WILL ASK IR TO PLACE TEMP HD CATHETER WILL HD TODAY UF MIN TOLERATED UPDATED FAMILY DANA SAHNI MD Jan 13, 2019 11:08
[2019-01-13] MEDS ORDERED: ALBUMIN HUMAN 25% 200 ML IV PRN (11:30)
[2019-01-13] MEDS ORDERED: IV NORMAL SALINE 1000ML BAG 1,000 ML IV PRN ×2 (11:30)
[2019-01-13] MEDS ORDERED: DIALYSIS PATIENT. MC PRN ×2 (11:30)
--- NOTE | 2019-01-13 11:40 | PDOC ---
Objective: Objective: D/w nurse - tube feeds at slow rate, 50cc residual this morning, no stools - gave lactulose and has suppository ready to give. Vital Signs: Vital Signs Date Time Temp Pulse Resp B/P (MAP) Pulse Ox O2 Delivery O2 Flow Rate FiO2 01/13/19 11:00 98.5 93 22 79/53 (62) 97 Ventilator 98.5 Labs: Laboratory Tests Test 01/12/19 13:14 01/12/19 17:56 01/13/19 05:15 01/13/19 05:21 Glucose (Fingerstick) 94 mg/dL 85 mg/dL 82 mg/dL White Blood Count 16.2 x10^3/uL Red Blood Count 2.70 x10^6/uL Hemoglobin 8.9 g/dL Hematocrit 27.2 % Mean Corpuscular Volume 101 fL Mean Corpuscular Hemoglobin 33 pg Mean Corpuscular Hemoglobin Concent 33 g/dL Red Cell Distribution Width 17.6 % Platelet Count 167 x10^3/uL Neutrophils (%) (Auto) 81 % Lymphocytes (%) (Auto) 14 % Monocytes (%) (Auto) 4 % Eosinophils (%) (Auto) 1 % Basophils (%) (Auto) 0 % Neutrophils # (Auto) 13.2 x10^3/uL Lymphocytes # (Auto) 2.3 x10^3/uL Monocytes # (Auto) 0.6 x10^3/uL Eosinophils # (Auto) 0.1 x10^3/uL Basophils # (Auto) 0.1 x10^3/uL Sodium Level 147 mmol/L Potassium Level 4.3 mmol/L Chloride Level 111 mmol/L Carbon Dioxide Level 25 mmol/L Anion Gap 11 Blood Urea Nitrogen 73 mg/dL Creatinine 2.2 mg/dL Estimated GFR (Cockcroft-Gault) 33.7 BUN/Creatinine Ratio 33 Glucose Level 88 mg/dL Calcium Level 7.0 mg/dL Total Bilirubin 11.3 mg/dL Aspartate Amino Transf (AST/SGOT) 236 U/L Alanine Aminotransferase (ALT/SGPT) 92 U/L Alkaline Phosphatase 155 U/L Total Protein 6.1 g/dL Albumin 1.4 g/dL Albumin/Globulin Ratio 0.3 Test 01/13/19 05:45 01/13/19 08:00 Prothrombin Time 16.1 SEC Prothromb Time International Ratio 1.3 O2 Saturation 92 % Arterial Blood pH 7.37 Arterial Blood pCO2 at Patient Temp 41 mmHg Arterial Blood pO2 at Patient Temp 72 mmHg Arterial Blood HCO3 23 mmol/L Arterial Blood Base Excess -2 mmol/L FiO2 100 Imaging: CXR 01/13 pending PE: GEN: intubated LUNGS: vent HEART: RRR ABD: quiet NEURO/PSYCH: sedated A/P: Hematemesis, melena - resolved ?ileus Alcoholic hepatitis Resp failure DOMONIQUE - worse -- Await results of suppository, okay to try feeding. Continue PPI. PINKY GONZALES Jan 13, 2019 11:40
--- NOTE | 2019-01-13 12:00 | PDOC ---
CARDIO Progress Notes Date and Time Date of Service 01/13/19 Time of Evaluation 1120 Subjective Subjective: Other (intubated, sedated ) Vitals Vitals Vital Signs Date Time Temp Pulse Resp B/P (MAP) Pulse Ox O2 Delivery O2 Flow Rate FiO2 01/13/19 11:00 98.5 93 22 79/53 (62) 97 Ventilator 98.5 Weight Weight [ ] Input and Output Intake and Output Intake and Output 01/13/19 07:00 Intake Total 3148.9 ml Output Total 1105 ml Balance 2043.9 ml IV Total 1833.9 ml Tube Feeding 915 ml Blood Product IV Normal Saline Flush 400 ml Output Urine Total 1105 ml Gastric Drainage Total 0 ml Laboratory Labs Laboratory Tests Test 01/12/19 13:14 01/12/19 17:56 01/13/19 05:15 01/13/19 05:21 Glucose (Fingerstick) 94 mg/dL (70-99) 85 mg/dL (70-99) 82 mg/dL (70-99) White Blood Count 16.2 x10^3/uL (4.0-11.0) Red Blood Count 2.70 x10^6/uL (4.30-5.70) Hemoglobin 8.9 g/dL (13.0-17.5) Hematocrit 27.2 % (39.0-53.0) Mean Corpuscular Volume 101 fL (79-100) Mean Corpuscular Hemoglobin 33 pg (25-35) Mean Corpuscular Hemoglobin Concent 33 g/dL (31-37) Red Cell Distribution Width 17.6 % (11.5-14.5) Platelet Count 167 x10^3/uL (140-400) Neutrophils (%) (Auto) 81 % (31-73) Lymphocytes (%) (Auto) 14 % (24-48) Monocytes (%) (Auto) 4 % (0-9) Eosinophils (%) (Auto) 1 % (0-3) Basophils (%) (Auto) 0 % (0-3) Neutrophils # (Auto) 13.2 x10^3/uL (1.8-7.7) Lymphocytes # (Auto) 2.3 x10^3/uL (1.0-4.8) Monocytes # (Auto) 0.6 x10^3/uL (0.0-1.1) Eosinophils # (Auto) 0.1 x10^3/uL (0.0-0.7) Basophils # (Auto) 0.1 x10^3/uL (0.0-0.2) Sodium Level 147 mmol/L (136-145) Potassium Level 4.3 mmol/L (3.5-5.1) Chloride Level 111 mmol/L (98-107) Carbon Dioxide Level 25 mmol/L (21-32) Anion Gap 11 (6-14) Blood Urea Nitrogen 73 mg/dL (8-26) Creatinine 2.2 mg/dL (0.7-1.3) Estimated GFR (Cockcroft-Gault) 33.7 BUN/Creatinine Ratio 33 (6-20) Glucose Level 88 mg/dL (70-99) Calcium Level 7.0 mg/dL (8.5-10.1) Total Bilirubin 11.3 mg/dL (0.2-1.0) Aspartate Amino Transf (AST/SGOT) 236 U/L (15-37) Alanine Aminotransferase (ALT/SGPT) 92 U/L (16-63) Alkaline Phosphatase 155 U/L (46-116) Total Protein 6.1 g/dL (6.4-8.2) Albumin 1.4 g/dL (3.4-5.0) Albumin/Globulin Ratio 0.3 (1.0-1.7) Test 01/13/19 05:45 01/13/19 08:00 Prothrombin Time 16.1 SEC (11.7-14.0) Prothromb Time International Ratio 1.3 (0.8-1.1) O2 Saturation 92 % (92-99) Arterial Blood pH 7.37 (7.35-7.45) Arterial Blood pCO2 at Patient Temp 41 mmHg (35-46) Arterial Blood pO2 at Patient Temp 72 mmHg (85-108) Arterial Blood HCO3 23 mmol/L (21-28) Arterial Blood Base Excess -2 mmol/L (-3-3) FiO2 100 Microbiology Micro Microbiology 01/08/19 Blood Culture - Final, Complete NO GROWTH AFTER 5 DAYS 01/08/19 Urine Culture - Final, Complete 01/08/19 Urine Culture Result 1 (ELAM) - Final, Complete Review of Systems Constitutional: yes: unresponsive Physical Exam HEENT: Neck Supple W Full Motion Chest: Symmetric LUNGS: Clear to Auscultation Heart: S1S2, RRR, other (distant heart tones ) Abdomen: Soft N/T Extremities: Other (2+ bilateral LE edema ) Neurology: other (SEDATED) Assessment Assessment 1. Acute respiratory failure, multifactorial. Intubated 2. ARDS 3. Hypotension, shock. Echo with preserved LV systolic function 4. Liver disease, transaminitis, ascites 5. Alcohol abuse 6. DOMONIQUE 7. Leukocytosis, ? sepsis 8. Acute GI bleed s/p transfusion Recommendations Continue same from CV standpoint Pressor support as warranted OLAF ARTHUR APRN Jan 13, 2019 12:00
[2019-01-13] MEDS: NOREPINEPHRIN 8MG/250ML PREMIX 250 ML IV PRN (12:04)
--- NOTE | 2019-01-13 12:22 | RAD ---
Single AP view of the chest. Comparison: 6:28 AM of the same day. Indication: Line placement Findings: Interval placement of an endotracheal tube which is now 4 cm above the pro. Nasogastric tube and right internal jugular central line are stable. There is a new right internal jugular hemodialysis catheter seen with the right atrium. The heart is enlarged but stable. No pneumothorax. There is likely retrocardiac left basilar effusion. Persistent unchanged pulmonary vascular congestion. Impression: 1. New endotracheal tube and right internal jugular hemodialysis catheter appear in good position. 2. Cardiopulmonary findings otherwise stable. Electronically signed by: Miah Sanchez MD (01/13/2019 12:19 PM) [id number]
[2019-01-13] MEDS: TPN PER PHARMACY MC PRN ×2 (12:39→13:41)
--- NOTE | 2019-01-13 12:51 | RAD ---
Procedure: Temporary hemodialysis catheter placement at the bedside. Clinical Indication: Adult male requiring hemodialysis Sedation: Local anesthesia only Antibiotics: None Fluoro Time: Not applicable Contrast: None Sterility: All elements of maximal sterile barrier technique including the use of a cap, mask, sterile gown, sterile gloves, large sterile sheet, appropriate hand hygiene, and 2% chlorhexidine for cutaneous antisepsis (or acceptable alternative antiseptic per current guidelines) were followed for this procedure. Consent: The procedure was explained in its entirety to the patient or the patients designated provider service representative by a member of the treatment team, including a discussion of the risks, benefits and commonly accepted alternatives to the procedure, as well as the expected consequences of no therapy whatsoever. Discussion of the risks included, but was not limited to, those that are most frequent and those that are rare but possibly severe or life-threatening, as well as the possibility of unforeseen complications. Technique and Findings: Following informed consent, the patient was prepped and draped in the usual sterile fashion. Ultrasound interrogation of the right neck revealed patency and compressibility of the right internal jugular vein. A 21-gauge micropuncture needle was used to gain access to this vein after 1% Lidocaine was used to achieve local anesthesia. A hardcopy ultrasound image was recorded. The needle was exchanged over a wire for serial dilators followed by a 20 cm Schon temporary hemodialysis catheter which was deployed in the expected location of the mid right atrium. The catheter flow rates were assessed manually and found to be excellent. The catheter was then flushed, packed with Heparin, capped, and sutured to the skin. Chest x-ray was then obtained to assess line position. Complications: No immediate Impression: 1. Ultrasound guided placement of a temporary hemodialysis catheter which exhibits excellent manual flow rates as described.
[2019-01-13 13:00] LABS: MAGNESIUM 3.3 mg/dL (1.8-2.4); PHOSPHORUS 5.6 mg/dL (2.6-4.7)
--- NOTE | 2019-01-13 13:43 | RAD ---
Portable chest x-ray compared to similar examination from January 12, 2019 for intubated. FINDINGS: Diffuse bilateral airspace disease, bilateral pleural effusions, and cardiomegaly are all unchanged, though there may be some subtle improved aeration of the right lung base. Right IJ central line, enteric tube, and endotracheal tubes are all again noted and appear appropriately situated. IMPRESSION: 1. Stable chest x-ray with extensive alveolar infiltrates, cardiomegaly, and effusions. Congestive heart failure suspected, with other superimposed process is not excluded. Electronically signed by: Javier Rivera MD (01/13/2019 1:40 PM) [id number]
--- NOTE | 2019-01-13 13:51 | NUR ---
Pharmacy TPN Dosing Note S: ULI CARRIZALES is a 38 year old M Currently receiving Central Continuous TPN started 01/13/19 B:Pertinent PMH: Ileus, high residuals with tube feeding Height: 5 feet, 7 inches Weight: 105.6 kg Current diet: - LABS: Sodium: 147 Potassium: 4.3 Chloride: 111 Calcium: 7.0 Corrected Calcium: 9.08 Magnesium: 3.3 CO2: 25 SCr: 1.7 Glucose: 82-99 Albumin: 1.4 AST: 236 ALT: 92 TPN FORMULA: TPN TYPE: Central Continuous AMINO ACIDS: 100 gm DEXTROSE: 225 gm LIPIDS: 20 gm SODIUM ACETATE: 40 mEq POTASSIUM ACETATE: 30 mEq CALCIUM: 10 mEq MULTIPLE VITAMIN: 10 ml TRACE ELEMENTS: 1 ml TPN PLAN: Initiate TPN with macros per pesticide chemist rec's Phos and magnesium left out of first bag due to elevated labs. R: Begin TPN Will monitor electrolytes, glucose, and tolerance to TPN. Emily Tucker [facility], 01/13/19 0821
[2019-01-13] MEDS ORDERED: DOCUSATE SODIUM 283 MG/5 ML ENEMA. PR ONE (16:45)
[2019-01-13] MEDS ORDERED: MINERAL OIL/PETROLATUM,WHITE OPHTH OINT 3.5GM TUBE. OU PRN (16:45)
--- NOTE | 2019-01-13 17:54 | NUR ---
Dialysis run this afternoon. Abd distended, firm, suppository given with smear results. Enema given with small results of black liquid stool. called this afternoon to check in informed that her that her was currently running on dialysis and everything was going well.
[2019-01-13] MEDS: DARBEPOETIN ALFA 60 MCG/0.3 ML DISP.SYRIN. SQ SCH (20:46)
[2019-01-13] MEDS ORDERED: [UNRECOGNIZED DRUG - OTHER] IV SCH ×8 (22:00)
[2019-01-13] MEDS ORDERED: TOTAL PARENTERAL NUTRITION IV SCH ×8 (22:00)
[2019-01-13] MEDS ORDERED: DEXTROSE 70% IV SCH ×8 (22:00)
[2019-01-13] MEDS ORDERED: AMINO ACID IV SCH ×8 (22:00)
[2019-01-13] MEDS: ACETAMINOPHEN 650 MG/20.3 ML SOLUTION. PEG PRN (22:57)
[2019-01-14] VITALS (31 sets, daily range): BP systolic 83–119; BP diastolic 39–63
[2019-01-14] MEDS: MIDAZOLAM 100mg/100ml NS BAG 100 ML IV PRN ×2 (03:55→14:48)
[2019-01-14] MEDS: PROPOFOL 100 ML IV PRN (03:56)
[2019-01-14] MEDS: PIPERACILLIN/TAZOBACTAM 3.375 GM in IV NORMAL SALINE 50ML 50 ML IV SCH ×3 (05:15→19:47)
[2019-01-14 05:30] LABS: BASO # 0.4 x10^3/uL (0.0-0.2); BASO % 1 % (0-3); EOS # 0.2 x10^3/uL (0.0-0.7); EOS % 1 % (0-3); HEMATOCRIT 25.2 % (39.0-53.0); HEMOGLOBIN 8.3 g/dL (13.0-17.5); LYMPH # 8.1 x10^3/uL (1.0-4.8); LYMPH % 30 % (24-48); MEAN CORPUSCULAR HEMOGLOBIN 33 pg (25-35); MEAN CORPUSCULAR HGB CONC 33 g/dL (31-37); MEAN CORPUSCULAR VOLUME 100 fL (79-100); MONO # 0.9 x10^3/uL (0.0-1.1); MONO % 3 % (0-9); NEUT # 17.5 x10^3/uL (1.8-7.7); NEUT % 65 % (31-73); PLATELET COUNT 156 x10^3/uL (140-400); RED BLOOD COUNT 2.53 x10^6/uL (4.30-5.70); RED CELL DISTRIBUTION WIDTH 17.5 % (11.5-14.5); WHITE BLOOD COUNT 26.9 x10^3/uL (4.0-11.0)
[2019-01-14 05:39] LABS: PROTHROMBIN TIME PATIENT 16.7 SEC (11.7-14.0)
[2019-01-14 06:09] LABS: ALBUMIN 1.4 g/dL (3.4-5.0); ALBUMIN/GLOBULIN RATIO 0.3 (1.0-1.7); CALCIUM 7.2 mg/dL (8.5-10.1); CREATININE 2.5 mg/dL (0.7-1.3); MAGNESIUM 2.7 mg/dL (1.8-2.4); PHOSPHORUS 3.9 mg/dL (2.6-4.7); POTASSIUM 4.3 mmol/L (3.5-5.1); TOTAL BILIRUBIN 10.2 mg/dL (0.2-1.0); TOTAL PROTEIN 5.7 g/dL (6.4-8.2)
[2019-01-14 06:15] LABS: % BANDS 10 % (0-9); % EOS 2 % (0-5); % LYMPHS 14 % (24-48); % MONOS 1 % (0-10); % SEGS 73 % (35-66); ANISOCYTOSIS SLIGHT; NUCLEATED RBC 1; PLT ESTIMATE ADEQUATE (ADEQUATE); POLYCHROMASIA SLIGHT
[2019-01-14 06:16] LABS: TOXIC GRANULATION MOD; TOXIC VACUOLATION SLIGHT
[2019-01-14] MEDS: INSULIN LISPRO 300 UNITS/3 ML VIAL. SQ SCH ×3 (08:00→17:00)
--- NOTE | 2019-01-14 08:03 | PDOC ---
Infectious Disease Note Subjective Subjective Sedated Orally intubated FiO2 70 PEEP 10 ROS ROS no n/v/d/ cont fever Vital Sign Vital Signs Vital Signs Date Time Temp Pulse Resp B/P (MAP) Pulse Ox O2 Delivery O2 Flow Rate FiO2 01/14/19 07:00 112 21 92/39 (56) 96 Ventilator 01/14/19 04:00 101.7 101.7 Physical Exam PHYSICAL EXAM GENERAL: Orally intubated and sedated, mitts HEENT: Pupils equal, ETT and OGT Heart : S1 S2 tachy ABDOMEN: Obese, soft, hypoactive BS : - [place] EXTREMITIES: Trace edema lower extremities bilaterally. LLE ecchymosis. SKIN: Warm to touch. No rash , bruising /subcut hematoma NEUROLOGIC: Sedated PIV s clean Labs Lab Laboratory Tests Test 01/13/19 12:20 01/13/19 17:17 01/14/19 05:25 Glucose (Fingerstick) 99 mg/dL (70-99) 78 mg/dL (70-99) White Blood Count 26.9 x10^3/uL (4.0-11.0) Red Blood Count 2.53 x10^6/uL (4.30-5.70) Hemoglobin 8.3 g/dL (13.0-17.5) Hematocrit 25.2 % (39.0-53.0) Mean Corpuscular Volume 100 fL (79-100) Mean Corpuscular Hemoglobin 33 pg (25-35) Mean Corpuscular Hemoglobin Concent 33 g/dL (31-37) Red Cell Distribution Width 17.5 % (11.5-14.5) Platelet Count 156 x10^3/uL (140-400) Neutrophils (%) (Auto) 65 % (31-73) Lymphocytes (%) (Auto) 30 % (24-48) Monocytes (%) (Auto) 3 % (0-9) Eosinophils (%) (Auto) 1 % (0-3) Basophils (%) (Auto) 1 % (0-3) Neutrophils # (Auto) 17.5 x10^3/uL (1.8-7.7) Lymphocytes # (Auto) 8.1 x10^3/uL (1.0-4.8) Monocytes # (Auto) 0.9 x10^3/uL (0.0-1.1) Eosinophils # (Auto) 0.2 x10^3/uL (0.0-0.7) Basophils # (Auto) 0.4 x10^3/uL (0.0-0.2) Segmented Neutrophils % 73 % (35-66) Band Neutrophils % 10 % (0-9) Lymphocytes % 14 % (24-48) Monocytes % 1 % (0-10) Eosinophils % 2 % (0-5) Nucleated Red Blood Cells 1 Toxic Granulation Mod Toxic Vacuolation Slight Platelet Estimate Adequate (ADEQUATE) Polychromasia Slight Anisocytosis Slight Prothrombin Time 16.7 SEC (11.7-14.0) Prothromb Time International Ratio 1.4 (0.8-1.1) Sodium Level 141 mmol/L (136-145) Potassium Level 4.3 mmol/L (3.5-5.1) Chloride Level 104 mmol/L (98-107) Carbon Dioxide Level 23 mmol/L (21-32) Anion Gap 14 (6-14) Blood Urea Nitrogen 66 mg/dL (8-26) Creatinine 2.5 mg/dL (0.7-1.3) Estimated GFR (Cockcroft-Gault) 29.0 BUN/Creatinine Ratio 26 (6-20) Glucose Level 106 mg/dL (70-99) Calcium Level 7.2 mg/dL (8.5-10.1) Phosphorus Level 3.9 mg/dL (2.6-4.7) Magnesium Level 2.7 mg/dL (1.8-2.4) Total Bilirubin 10.2 mg/dL (0.2-1.0) Aspartate Amino Transf (AST/SGOT) 253 U/L (15-37) Alanine Aminotransferase (ALT/SGPT) 87 U/L (16-63) Alkaline Phosphatase 109 U/L (46-116) Total Protein 5.7 g/dL (6.4-8.2) Albumin 1.4 g/dL (3.4-5.0) Albumin/Globulin Ratio 0.3 (1.0-1.7) Triglycerides Level 281 mg/dL (0-150) Micro Microbiology 01/08/19 Blood Culture - Preliminary, Resulted NO GROWTH AFTER 3 DAYS 01/08/19 Urine Culture - Final, Complete 01/08/19 Urine Culture Result 1 ([facility]) - Final, Complete Objective Assessment Hypotension - off pressors Fever - likely sec to Withdrawl Leukocytosis - ? reactive, improved Lactic acidosis - better Resp failure now intubated ? UTI. cultures neg Anemia - s/p PRBCs GI Bleed - s/p EGD 01/08 - Reflux esophagitis. ? recent M-W tear. Alcoholic gastritis. Transaminitis - better ? pancreatitis Rhabdo CK 965 ETOH abuse with mild ascites Electrolyte abnormalities Obstructive resp issues Left leg echymosis DOMONIQUE Plan Plan of Care Cont Zosyn. and zyvox Sputum culture in process add levaquin check legionella, mycoplasma repeat Critically ill LETTY ALEXIS MD Jan 14, 2019 08:03
--- NOTE | 2019-01-14 08:31 | NUR ---
SS following up with discharge planning. SS phoned and faxed clinical updates to [facility], ; fax [phone]. SS will continue to follow for discharge planning.
[2019-01-14 08:53] LABS: BASE EXCESS ABG -2 mmol/L (-3-3); HCO3 ABG 23 mmol/L (21-28); PCO2 ABG 40 mmHg (35-46); PO2 ABG 68 mmHg (85-108); SAT O2 ABG 91 % (92-99)
[2019-01-14] MEDS: IV NORMAL SALINE 1000ML BAG 1,000 ML IV SCH (08:54)
[2019-01-14 08:55] LABS: FIO2 ABG 100
--- NOTE | 2019-01-14 08:55 | PDOC ---
PROGRESS NOTES Chief Complaint Chief Complaint Acute respi falure, IPPV - 01.08, fluid overload? vs Atypical infection HEMATEMESIS in A HEAVY DRINKER -Atrophic gastritis, ?MW tear BUT NO ACTIVE GIB - s.po STAT EGD 01/08 SEVERE PCM - albumin 1,7 -s/p albumin 01/09 - off pressors by 01/10 MInimal ascites - by US and CT HYPOTENSION, s/p, pressors standby, albumin, blood products if needed Coagulopathy - s/p vit K, HEPATIC enceph - ammonia midly high 60-90s - lactulose,MO HIGH residuals TRAMSAMINITIS with ELEVATED TB- per GI (TB 9), AST 300s-500s HEp C antibody positive LEft leg bruise, in this coagulopathic anemic pt sec to fall 2 weeks ago - monitor ELEAVTED AGAP acidosis, renal consulted, can check PH in ABG - better History of Present Illness History of Present Illness Mr Ballard is a 38 yo M w/ PMHx heavy ETOH abuse admitted with massive hematemesis on 01/07/19, was emergently intubated and admitted to ICU. S/p EGD, no active GIB, poss MW, atrophic gastritis, off SANDOSTATIN, CONT PPI gtt, SCDS. AMMONIA 60-90s - started lactulose, qdaily per GI, HEp c AB positive - negative PCR HIGH GASTRIC RESIDUALS 01/10/19, had to stop TF Intubated, sedated - needed to vecuronium per RN 01/12: PEEP 10, Fi O2 100% - was not ready to extubate weekend. CXR shows more edema, Echo shows no valvular or pressure abnormalities, off pressor since 01/09, UO ok but Cr up to 1.8 today. 01/13: Febrile 101.2F yesterday afternoon and 100.7F this morning. TF off 2/2 high residuals. KUB shows no obstruction but possible ileus. No BM. Bilirubin increasing to 11.3, Cr increasing to 2.2. Albumin decreased. More edematous today. BP lower. HD cath placed and HD session per nephro. Cr worse, UOP minimal. Bowel sounds decreased. Still on levophed. Still febrile 101.7F this morning. PEEP 10, FiO2 100%. D/w and mother bedside PLAN Lactulose TID. If residuals are still high will need to start enemas and 1x reglan Albumin x1 now Cards, pulmo, GI, nephrology on case NO bleeding so far since admission Will need to d/w nephrology with Cr elevation and pulmonary edema, progostically this is a poor sign cc ill prog guarded, mentation might be a problem in extubating in this alcoholic CC time 47 minutes Vitals Vitals Vital Signs Date Time Temp Pulse Resp B/P (MAP) Pulse Ox O2 Delivery O2 Flow Rate FiO2 01/14/19 07:00 112 21 92/39 (56) 96 Ventilator 01/14/19 04:00 101.7 101.7 Physical Exam Physical Exam GENERAL: Orally intubated and sedated, mitts HEENT: Pupils equal, ETT and OGT Heart : S1 S2 tachy ABDOMEN: Obese, soft, hypoactive BS : - [place] EXTREMITIES: Trace edema lower extremities bilaterally. LLE ecchymosis. SKIN: Warm to touch. No rash , bruising /subcut hematoma NEUROLOGIC: Sedated PIV s clean General: Other (tachypneic 30s) Heart: Regular rate, Normal S1, Normal S2 Lungs: Other (decrease bs) Abdomen: Soft, No tenderness, Other (pot belly possible fluid wave) Extremities: No clubbing, No cyanosis, Normal pulses, Other (left leg is bruised from a fall 2-3 weeks ago) Labs LABS Laboratory Tests Test 01/13/19 12:20 01/13/19 17:17 01/14/19 05:25 Glucose (Fingerstick) 99 mg/dL (70-99) 78 mg/dL (70-99) White Blood Count 26.9 x10^3/uL (4.0-11.0) Red Blood Count 2.53 x10^6/uL (4.30-5.70) Hemoglobin 8.3 g/dL (13.0-17.5) Hematocrit 25.2 % (39.0-53.0) Mean Corpuscular Volume 100 fL (79-100) Mean Corpuscular Hemoglobin 33 pg (25-35) Mean Corpuscular Hemoglobin Concent 33 g/dL (31-37) Red Cell Distribution Width 17.5 % (11.5-14.5) Platelet Count 156 x10^3/uL (140-400) Neutrophils (%) (Auto) 65 % (31-73) Lymphocytes (%) (Auto) 30 % (24-48) Monocytes (%) (Auto) 3 % (0-9) Eosinophils (%) (Auto) 1 % (0-3) Basophils (%) (Auto) 1 % (0-3) Neutrophils # (Auto) 17.5 x10^3/uL (1.8-7.7) Lymphocytes # (Auto) 8.1 x10^3/uL (1.0-4.8) Monocytes # (Auto) 0.9 x10^3/uL (0.0-1.1) Eosinophils # (Auto) 0.2 x10^3/uL (0.0-0.7) Basophils # (Auto) 0.4 x10^3/uL (0.0-0.2) Segmented Neutrophils % 73 % (35-66) Band Neutrophils % 10 % (0-9) Lymphocytes % 14 % (24-48) Monocytes % 1 % (0-10) Eosinophils % 2 % (0-5) Nucleated Red Blood Cells 1 Toxic Granulation Mod Toxic Vacuolation Slight Platelet Estimate Adequate (ADEQUATE) Polychromasia Slight Anisocytosis Slight Prothrombin Time 16.7 SEC (11.7-14.0) Prothromb Time International Ratio 1.4 (0.8-1.1) Sodium Level 141 mmol/L (136-145) Potassium Level 4.3 mmol/L (3.5-5.1) Chloride Level 104 mmol/L (98-107) Carbon Dioxide Level 23 mmol/L (21-32) Anion Gap 14 (6-14) Blood Urea Nitrogen 66 mg/dL (8-26) Creatinine 2.5 mg/dL (0.7-1.3) Estimated GFR (Cockcroft-Gault) 29.0 BUN/Creatinine Ratio 26 (6-20) Glucose Level 106 mg/dL (70-99) Calcium Level 7.2 mg/dL (8.5-10.1) Phosphorus Level 3.9 mg/dL (2.6-4.7) Magnesium Level 2.7 mg/dL (1.8-2.4) Total Bilirubin 10.2 mg/dL (0.2-1.0) Aspartate Amino Transf (AST/SGOT) 253 U/L (15-37) Alanine Aminotransferase (ALT/SGPT) 87 U/L (16-63) Alkaline Phosphatase 109 U/L (46-116) Total Protein 5.7 g/dL (6.4-8.2) Albumin 1.4 g/dL (3.4-5.0) Albumin/Globulin Ratio 0.3 (1.0-1.7) Triglycerides Level 281 mg/dL (0-150) Assessment and Plan Assessmemt and Plan Problems Medical Problems: (1) Acute hepatic encephalopathy Status: Acute (2) Acute upper GI bleed Status: Acute (3) Ascites Status: Acute (4) Hypokalemia Status: Acute (5) Multiple organ system failure Status: Acute (6) Severe sepsis with acute organ dysfunction Status: Acute Comment Review of Relevant I have reviewed the following items karen (where applicable) has been applied. Labs Laboratory Tests Test 01/12/19 11:20 01/12/19 13:14 01/12/19 17:56 01/13/19 05:15 Prothrombin Time 15.6 SEC (11.7-14.0) Prothromb Time International Ratio 1.3 (0.8-1.1) Total Bilirubin 10.9 mg/dL (0.2-1.0) 11.3 mg/dL (0.2-1.0) Direct Bilirubin 9.4 mg/dL (0.0-0.2) Aspartate Amino Transf (AST/SGOT) 245 U/L (15-37) 236 U/L (15-37) Alanine Aminotransferase (ALT/SGPT) 107 U/L (16-63) 92 U/L (16-63) Alkaline Phosphatase 124 U/L (46-116) 155 U/L (46-116) Total Protein 6.1 g/dL (6.4-8.2) 6.1 g/dL (6.4-8.2) Albumin 1.7 g/dL (3.4-5.0) 1.4 g/dL (3.4-5.0) Glucose (Fingerstick) 94 mg/dL (70-99) 85 mg/dL (70-99) White Blood Count 16.2 x10^3/uL (4.0-11.0) Red Blood Count 2.70 x10^6/uL (4.30-5.70) Hemoglobin 8.9 g/dL (13.0-17.5) Hematocrit 27.2 % (39.0-53.0) Mean Corpuscular Volume 101 fL (79-100) Mean Corpuscular Hemoglobin 33 pg (25-35) Mean Corpuscular Hemoglobin Concent 33 g/dL (31-37) Red Cell Distribution Width 17.6 % (11.5-14.5) Platelet Count 167 x10^3/uL (140-400) Neutrophils (%) (Auto) 81 % (31-73) Lymphocytes (%) (Auto) 14 % (24-48) Monocytes (%) (Auto) 4 % (0-9) Eosinophils (%) (Auto) 1 % (0-3) Basophils (%) (Auto) 0 % (0-3) Neutrophils # (Auto) 13.2 x10^3/uL (1.8-7.7) Lymphocytes # (Auto) 2.3 x10^3/uL (1.0-4.8) Monocytes # (Auto) 0.6 x10^3/uL (0.0-1.1) Eosinophils # (Auto) 0.1 x10^3/uL (0.0-0.7) Basophils # (Auto) 0.1 x10^3/uL (0.0-0.2) Sodium Level 147 mmol/L (136-145) Potassium Level 4.3 mmol/L (3.5-5.1) Chloride Level 111 mmol/L (98-107) Carbon Dioxide Level 25 mmol/L (21-32) Anion Gap 11 (6-14) Blood Urea Nitrogen 73 mg/dL (8-26) Creatinine 2.2 mg/dL (0.7-1.3) Estimated GFR (Cockcroft-Gault) 33.7 BUN/Creatinine Ratio 33 (6-20) Glucose Level 88 mg/dL (70-99) Calcium Level 7.0 mg/dL (8.5-10.1) Phosphorus Level 5.6 mg/dL (2.6-4.7) Magnesium Level 3.3 mg/dL (1.8-2.4) Albumin/Globulin Ratio 0.3 (1.0-1.7) Test 01/13/19 05:21 01/13/19 05:45 01/13/19 08:00 01/13/19 12:20 Glucose (Fingerstick) 82 mg/dL (70-99) 99 mg/dL (70-99) Prothrombin Time 16.1 SEC (11.7-14.0) Prothromb Time International Ratio 1.3 (0.8-1.1) O2 Saturation 92 % (92-99) Arterial Blood pH 7.37 (7.35-7.45) Arterial Blood pCO2 at Patient Temp 41 mmHg (35-46) Arterial Blood pO2 at Patient Temp 72 mmHg (85-108) Arterial Blood HCO3 23 mmol/L (21-28) Arterial Blood Base Excess -2 mmol/L (-3-3) FiO2 100 Test 01/13/19 17:17 01/14/19 05:25 Glucose (Fingerstick) 78 mg/dL (70-99) White Blood Count 26.9 x10^3/uL (4.0-11.0) Red Blood Count 2.53 x10^6/uL (4.30-5.70) Hemoglobin 8.3 g/dL (13.0-17.5) Hematocrit 25.2 % (39.0-53.0) Mean Corpuscular Volume 100 fL (79-100) Mean Corpuscular Hemoglobin 33 pg (25-35) Mean Corpuscular Hemoglobin Concent 33 g/dL (31-37) Red Cell Distribution Width 17.5 % (11.5-14.5) Platelet Count 156 x10^3/uL (140-400) Neutrophils (%) (Auto) 65 % (31-73) Lymphocytes (%) (Auto) 30 % (24-48) Monocytes (%) (Auto) 3 % (0-9) Eosinophils (%) (Auto) 1 % (0-3) Basophils (%) (Auto) 1 % (0-3) Neutrophils # (Auto) 17.5 x10^3/uL (1.8-7.7) Lymphocytes # (Auto) 8.1 x10^3/uL (1.0-4.8) Monocytes # (Auto) 0.9 x10^3/uL (0.0-1.1) Eosinophils # (Auto) 0.2 x10^3/uL (0.0-0.7) Basophils # (Auto) 0.4 x10^3/uL (0.0-0.2) Segmented Neutrophils % 73 % (35-66) Band Neutrophils % 10 % (0-9) Lymphocytes % 14 % (24-48) Monocytes % 1 % (0-10) Eosinophils % 2 % (0-5) Nucleated Red Blood Cells 1 Toxic Granulation Mod Toxic Vacuolation Slight Platelet Estimate Adequate (ADEQUATE) Polychromasia Slight Anisocytosis Slight Prothrombin Time 16.7 SEC (11.7-14.0) Prothromb Time International Ratio 1.4 (0.8-1.1) Sodium Level 141 mmol/L (136-145) Potassium Level 4.3 mmol/L (3.5-5.1) Chloride Level 104 mmol/L (98-107) Carbon Dioxide Level 23 mmol/L (21-32) Anion Gap 14 (6-14) Blood Urea Nitrogen 66 mg/dL (8-26) Creatinine 2.5 mg/dL (0.7-1.3) Estimated GFR (Cockcroft-Gault) 29.0 BUN/Creatinine Ratio 26 (6-20) Glucose Level 106 mg/dL (70-99) Calcium Level 7.2 mg/dL (8.5-10.1) Phosphorus Level 3.9 mg/dL (2.6-4.7) Magnesium Level 2.7 mg/dL (1.8-2.4) Total Bilirubin 10.2 mg/dL (0.2-1.0) Aspartate Amino Transf (AST/SGOT) 253 U/L (15-37) Alanine Aminotransferase (ALT/SGPT) 87 U/L (16-63) Alkaline Phosphatase 109 U/L (46-116) Total Protein 5.7 g/dL (6.4-8.2) Albumin 1.4 g/dL (3.4-5.0) Albumin/Globulin Ratio 0.3 (1.0-1.7) Triglycerides Level 281 mg/dL (0-150) Laboratory Tests Test 01/13/19 12:20 01/13/19 17:17 01/14/19 05:25 Glucose (Fingerstick) 99 mg/dL (70-99) 78 mg/dL (70-99) White Blood Count 26.9 x10^3/uL (4.0-11.0) Red Blood Count 2.53 x10^6/uL (4.30-5.70) Hemoglobin 8.3 g/dL (13.0-17.5) Hematocrit 25.2 % (39.0-53.0) Mean Corpuscular Volume 100 fL (79-100) Mean Corpuscular Hemoglobin 33 pg (25-35) Mean Corpuscular Hemoglobin Concent 33 g/dL (31-37) Red Cell Distribution Width 17.5 % (11.5-14.5) Platelet Count 156 x10^3/uL (140-400) Neutrophils (%) (Auto) 65 % (31-73) Lymphocytes (%) (Auto) 30 % (24-48) Monocytes (%) (Auto) 3 % (0-9) Eosinophils (%) (Auto) 1 % (0-3) Basophils (%) (Auto) 1 % (0-3) Neutrophils # (Auto) 17.5 x10^3/uL (1.8-7.7) Lymphocytes # (Auto) 8.1 x10^3/uL (1.0-4.8) Monocytes # (Auto) 0.9 x10^3/uL (0.0-1.1) Eosinophils # (Auto) 0.2 x10^3/uL (0.0-0.7) Basophils # (Auto) 0.4 x10^3/uL (0.0-0.2) Segmented Neutrophils % 73 % (35-66) Band Neutrophils % 10 % (0-9) Lymphocytes % 14 % (24-48) Monocytes % 1 % (0-10) Eosinophils % 2 % (0-5) Nucleated Red Blood Cells 1 Toxic Granulation Mod Toxic Vacuolation Slight Platelet Estimate Adequate (ADEQUATE) Polychromasia Slight Anisocytosis Slight Prothrombin Time 16.7 SEC (11.7-14.0) Prothromb Time International Ratio 1.4 (0.8-1.1) Sodium Level 141 mmol/L (136-145) Potassium Level 4.3 mmol/L (3.5-5.1) Chloride Level 104 mmol/L (98-107) Carbon Dioxide Level 23 mmol/L (21-32) Anion Gap 14 (6-14) Blood Urea Nitrogen 66 mg/dL (8-26) Creatinine 2.5 mg/dL (0.7-1.3) Estimated GFR (Cockcroft-Gault) 29.0 BUN/Creatinine Ratio 26 (6-20) Glucose Level 106 mg/dL (70-99) Calcium Level 7.2 mg/dL (8.5-10.1) Phosphorus Level 3.9 mg/dL (2.6-4.7) Magnesium Level 2.7 mg/dL (1.8-2.4) Total Bilirubin 10.2 mg/dL (0.2-1.0) Aspartate Amino Transf (AST/SGOT) 253 U/L (15-37) Alanine Aminotransferase (ALT/SGPT) 87 U/L (16-63) Alkaline Phosphatase 109 U/L (46-116) Total Protein 5.7 g/dL (6.4-8.2) Albumin 1.4 g/dL (3.4-5.0) Albumin/Globulin Ratio 0.3 (1.0-1.7) Triglycerides Level 281 mg/dL (0-150) Microbiology 01/08/19 Blood Culture - Final, Complete NO GROWTH AFTER 5 DAYS 01/08/19 Urine Culture - Final, Complete 01/08/19 Urine Culture Result 1 (ELMA) - Final, Complete Medications Current Medications Sodium Chloride 1,000 ml @ 1,000 mls/hr 1X ONCE IV Last administered on 01/07/19at 19:27; Start 01/07/19 at 19:30; Stop 01/07/19 at 20:29; Status DC Ondansetron HCl (Zofran) 4 mg 1X ONCE IV Last administered on 01/07/19at 19:28; Start 01/07/19 at 19:30; Stop 01/07/19 at 19:31; Status DC Pantoprazole Sodium (PROTONIX VIAL for IV PUSH) 80 mg 1X ONCE IVP Last administered on 01/07/19at 19:50; Start 01/07/19 at 20:00; Stop 01/07/19 at 20:01; Status DC Pantoprazole Sodium 80 mg/ Sodium Chloride 100 ml @ 10 mls/hr 1X ONCE IV Last administered on 01/07/19at 20:00; Start 01/07/19 at 20:00; Stop 01/08/19 at 05:59; Status DC Sodium Chloride 1,000 ml @ 1,000 mls/hr 1X ONCE IV Last administered on 01/07/19at 22:12; Start 01/07/19 at 21:00; Stop 01/07/19 at 21:59; Status DC Sodium Chloride 1,000 ml @ 1,000 mls/hr 1X ONCE IV Last administered on 01/07/19at 20:40; Start 01/07/19 at 20:45; Stop 01/07/19 at 21:44; Status DC Potassium Chloride/Sodium Chloride 1,000 ml @ 75 mls/hr 1X ONCE IV Last administered on 01/07/19at 21:16; Start 01/07/19 at 21:30; Stop 01/08/19 at 10:49; Status DC Vancomycin HCl (Vanco Per Pharmacy) 1 each PRN DAILY PRN MC SEE COMMENTS Last administered on 01/08/19at 00:43; Start 01/07/19 at 21:00; Stop 01/08/19 at 06:39; Status DC Piperacillin Sod/ Tazobactam Sod (Zosyn Per Pharmacy) 1 each PRN DAILY PRN MC SEE COMMENTS; Start 01/07/19 at 21:00 Piperacillin Sod/ Tazobactam Sod 3.375 gm/Sodium Chloride 50 ml @ 100 mls/hr Q6HRS IV Last administered on 01/14/19at 05:15; Start 01/07/19 at 22:00 Vancomycin HCl 2 gm/Sodium Chloride 500 ml @ 250 mls/hr 1X ONCE IV Last administered on 01/07/19at 22:11; Start 01/07/19 at 22:00; Stop 01/07/19 at 23:59; Status DC Lorazepam (Ativan Inj) 1 mg 1X ONCE IV Last administered on 01/07/19at 23:22; Start 01/07/19 at 23:30; Stop 01/07/19 at 23:31; Status DC Lorazepam (Ativan Inj) 2 mg STK-MED ONCE .ROUTE ; Start 01/07/19 at 23:20; Stop 01/07/19 at 23:21; Status DC Vancomycin HCl 1.5 gm/Sodium Chloride 500 ml @ 250 mls/hr Q12H IV ; Start 01/08/19 at 10:00; Stop 01/08/19 at 06:39; Status DC Vancomycin HCl (Vancomycin Trough Level) 1 each 1X ONCE MC ; Start 01/09/19 at 09:30; Stop 01/09/19 at 09:31; Status Cancel Ondansetron HCl (Zofran) 4 mg PRN Q6HRS PRN IVP NAUSEA/VOMITING; Start 01/08/19 at 04:00; Status Cancel Pantoprazole Sodium 80 mg/ Sodium Chloride 100 ml @ 10 mls/hr Q10H IV Last administered on 01/09/19at 02:00; Start 01/08/19 at 06:00; Stop 01/09/19 at 11:00; Status DC Multivitamins 10 ml/Thiamine HCl 100 mg/Folic Acid 1 mg/Sodium Chloride 1,011.2 ml @ 100 mls/ hr DAILY IV Last administered on 01/12/19at 10:29; Start 01/08/19 at 09:00; Stop 01/12/19 at 19:07; Status DC Lorazepam (Ativan Inj) 2 mg PRN Q1HR PRN IV For CIWA 8-14 Last administered on 01/09/19at 22:24; Start 01/08/19 at 07:15 Lorazepam (Ativan Inj) 4 mg PRN Q1HR PRN IV For CIWA 15 or greater; Start 01/08/19 at 07:15 Haloperidol Lactate (Haldol Inj) 5 mg PRN Q4HRS PRN IVP Hallucinatns,Confusn,Delirium; Start 01/08/19 at 07:15 Diphenhydramine HCl (Benadryl) 25 mg PRN Q15MIN PRN IVP EPS symptoms 2'Haldol admin; Start 01/08/19 at 07:15 Clonidine HCl (Catapres) 0.1 mg PRN Q1HR PRN PO SBP > 180 or DBP > 100, MRX3; Start 01/08/19 at 07:15 Sodium Bicarbonate (Sodium Bicarb Adult 8.4% Syr) 50 meq 1X ONCE IV Last administered on 01/08/19at 08:04; Start 01/08/19 at 08:00; Stop 01/08/19 at 08:01; Status DC Propofol 100 ml @ As Directed STK-MED ONCE IV ; Start 01/08/19 at 08:19; Stop 01/08/19 at 08:19; Status DC Succinylcholine Chloride (Anectine) 200 mg STK-MED ONCE .ROUTE ; Start 01/08/19 at 08:19; Stop 01/08/19 at 08:19; Status DC Propofol 100 ml @ As Directed STK-MED ONCE IV ; Start 01/08/19 at 08:29; Stop 01/08/19 at 08:30; Status DC Fentanyl Citrate 30 ml @ 0 mls/hr CONT PRN PRN IV PER PROTOCOL Last administered on 01/14/19at 01:29; Start 01/08/19 at 09:00 Naloxone HCl (Narcan) 0.4 mg PRN Q2MIN PRN IV SEE INSTRUCTIONS; Start 01/08/19 at 09:00 Sodium Chloride 1,000 ml @ 25 mls/hr Q24H IV Last administered on 01/13/19at 10:15; Start 01/08/19 at 08:54 Fentanyl Citrate (Fentanyl 2ml Vial) 100 mcg STK-MED ONCE .ROUTE ; Start 01/08/19 at 08:55; Stop 01/08/19 at 08:55; Status DC Octreotide Acetate 500 mcg/ Sodium Chloride 101 ml @ 0 mls/hr CONT PRN IV SEE I/O RECORD Last administered on 01/08/19at 13:56; Start 01/08/19 at 09:00; Stop 01/08/19 at 16:55; Status DC Phytonadione (Vitamin K Ampule) 10 mg 1X ONCE SQ Last administered on at 09:56; Start 01/08/19 at 09:15; Stop 01/08/19 at 09:16; Status DC Metoclopramide HCl (Reglan Vial) 10 mg 1X ONCE IVP Last administered on 01/08/19at 14:36; Start 01/08/19 at 11:00; Stop 01/08/19 at 11:01; Status DC Midazolam HCl (Versed) 5 mg STK-MED ONCE .ROUTE ; Start 01/08/19 at 09:00; Stop 01/08/19 at 09:01; Status DC Acetaminophen (Tylenol) 500 mg PRN Q6HRS PRN PO MILD PAIN / TEMP Last administered on 01/11/19at 17:46; Start 01/08/19 at 09:15; Stop 01/13/19 at 09:11; Status DC Tramadol HCl (Ultram) 50 mg PRN Q6HRS PRN PO PAIN MODERATE; Start 01/08/19 at 09:15 Morphine Sulfate (Morphine Sulfate) 2 mg PRN Q2HR PRN IV PAIN; Start 01/08/19 at 09:15 Ondansetron HCl (Zofran) 4 mg PRN Q6HRS PRN IVP NAUSEA/VOMITING, 1ST CHOICE; Start 01/08/19 at 09:15 Fentanyl Citrate (Fentanyl 2ml Vial) 100 mcg 1X ONCE IVP Last administered on 01/08/19at 09:42; Start 01/08/19 at 09:45; Stop 01/08/19 at 09:46; Status DC Midazolam HCl (Versed) 5 mg 1X ONCE IV Last administered on 01/08/19at 09:41; Start 01/08/19 at 09:45; Stop 01/08/19 at 09:46; Status DC Succinylcholine Chloride (Anectine) 200 mg 1X ONCE IV Last administered on 01/08/19 09:41; Start 01/08/19 at 09:45; Stop 01/08/19 at 09:46; Status DC Propofol 100 ml @ 1.524 mls/ hr CONT PRN IV SEE I/O RECORD Last administered on 01/14/19at 03:56; Start 01/08/19 at 09:45 Midazolam HCl 100 ml @ 5 mls/hr CONT PRN IV SEE I/O RECORD Last administered on 01/14/19at 03:55; Start 01/08/19 at 11:15 Vecuronium [place] (Norcuron Bolus) 6 mg PRN Q4HRS PRN IV VENT ASYNCHRONY Last administered on 01/10/19at 15:59; Start 01/08/19 at 12:00 Benzocaine (Hurricaine One) 2 spray STK-MED ONCE .ROUTE ; Start 01/07/19 at 12:00; Stop 01/08/19 at 14:20; Status DC Lidocaine HCl (Xylocaine 2% Topical 5gm Tube) 5 amanda STK-MED ONCE TP ; Start 01/07/19 at 12:00; Stop 01/08/19 at 14:20; Status DC Lactobacillus Rhamnosus (Culturelle) 1 cap BID PO ; Start 01/08/19 at 21:00; Stop 01/09/19 at 09:29; Status DC Acetaminophen (Tylenol Supp) 650 mg PRN Q6HRS PRN MO MILD PAIN / TEMP Last administered on 01/09/19at 23:44; Start 01/08/19 at 18:15 Norepinephrine Bitartrate 250 ml @ 18.938 mls/ hr CONT PRN IV SEE I/O RECORD Last administered on 01/13/19at 12:04; Start 01/09/19 at 01:45 Potassium Chloride (Klor-Con) 40 meq 1X ONCE PO Last administered on 01/09/19at 11:34; Start 01/09/19 at 09:45; Stop 01/09/19 at 09:46; Status DC Metoclopramide HCl (Reglan Vial) 10 mg PRN Q6HRS PRN IVP NAUSEA/VOMITING, 2ND CHOICE; Start 01/09/19 at 10:15 Albumin Human 100 ml @ 100 mls/hr 1X ONCE IV Last administered on 01/09/19at 10:49; Start 01/09/19 at 10:15; Stop 01/09/19 at 11:14; Status DC Lactulose (LACTULOSE 300ML for RECTAL) 200 gm Q6HRS MO ; Start 01/09/19 at 12:00; Stop 01/09/19 at 11:04; Status DC Insulin Human Lispro (HumaLOG) 0-9 UNITS TIDWMEALS SQ ; Start 01/09/19 at 12:00 Dextrose (Dextrose 50%-Water Syringe) 12.5 gm PRN Q15MIN PRN IV SEE COMMENTS; Start 01/09/19 at 10:30 Fentanyl Citrate (Fentanyl 600 Mcg/30 ml SWEATBAND PERFORATOR) 600 mcg STK-MED ONCE IV ; Start 1 03/10/18 at 15:25; Stop 01/09/19 at 10:27; Status DC Pantoprazole Sodium (PROTONIX VIAL for IV PUSH) 40 mg DAILYAC IVP Last ad ministered on 01/13/19at 07:38; Start 01/10/19 at 07:30 Lactulose (Lactulose) 20 gm DAILY PO Last administered on 01/12/19at 08:24; Start 01/09/19 at 11:30; Stop 01/12/19 at 10:12; Status DC Potassium Bicarbonate (Potassium Effervescent Tablet) 40 meq BIDWMEALS FT Last administered on 01/10/19at 17:49; Start 01/10/19 at 09:00; Stop 01/11/19 at 09:20; Status DC Linezolid/Dextrose 300 ml @ 300 mls/hr Q12HR IV Last administered on 01/13/19at 20:46; Start 01/11/19 at 13:00 Perflutren Protein Type A Microsphe (Optison) 0.66 mg 1X ONCE IV ; Start 01/11/19 at 13:30; Stop 01/11/19 at 13:31; Status DC Albumin Human 100 ml @ 100 mls/hr 1X ONCE IV Last administered on 01/12/19at 08:25; Start 01/12/19 at 07:45; Stop 01/12/19 at 08:44; Status DC Lactulose (Lactulose) 20 gm PRN DAILY PRN PO constipation; Start 01/12/19 at 10:15; Stop 01/13/19 at 09:11; Status DC Acetaminophen (Tylenol) 650 mg PRN Q6HRS PRN PEG MILD PAIN / TEMP Last administered on 01/13/19at 22:57; Start 01/12/19 at 16:30 Lactulose (Lactulose) 20 gm TID PO Last administered on 01/13/19at 20:46; Start 01/13/19 at 10:00 Albumin Human 500 ml @ 125 mls/hr 1X ONCE IV Last administered on 01/13/19at 09:40; Start 01/13/19 at 10:00; Stop 01/13/19 at 13:59; Status DC Bisacodyl (Dulcolax Supp) 10 mg 1X ONCE MO Last administered on 01/13/19at 10:14; Start 01/13/19 at 11:00; Stop 01/13/19 at 11:01; Status DC Lidocaine HCl (Buffered Lidocaine 1%) 3 ml 1X ONCE INJ Last administered on 01/13/19at 11:00; Start 01/13/19 at 11:00; Stop 01/13/19 at 11:01; Status DC Heparin Sodium (Porcine) (Heparin Sodium) 10,000 unit STK-MED ONCE .ROUTE ; Start 01/13/19 at 10:59; Stop 01/13/19 at 11:00; Status DC Darbepoetin Giorgi (ARANESP for DIALYSIS PTS) 60 mcg WEEKLYHS SQ Last administered on 01/13/19at 20:46; Start 01/13/19 at 21:00 Info (Tpn Per Pharmacy) 1 each PRN DAILY PRN MC SEE COMMENTS Last administered on 01/13/19at 13:41; Start 01/13/19 at 11:15 Sodium Chloride 1,000 ml @ 1,000 mls/hr Q1H PRN IV hypotension; Start 01/13/19 at 11:30; Stop 01/13/19 at 19:00; Status DC Albumin Human 200 ml @ 200 mls/hr 1X PRN PRN IV Hypotension; Start 01/13/19 at 11:30; Stop 01/13/19 at 17:29; Status DC Sodium Chloride 1,000 ml @ 400 mls/hr Q2H30M PRN IV PATENCY; Start 01/13/19 at 11:30; Stop 01/13/19 at 19:00; Status DC Info (PHARMACY MONITORING -- do not chart) 1 each PRN DAILY PRN MC SEE COMMENTS; Start 01/13/19 at 11:30 Info (PHARMACY MONITORING -- do not chart) 1 each PRN DAILY PRN MC SEE COMMENTS; Start 01/13/19 at 11:30; Status UNV Sodium Acetate 40 meq/Potassium Acetate 30 meq/ Calcium Gluconate 10 meq/ Multivitamins 10 ml/Chromium/ Copper/Manganese/ Seleni/Zn 1 ml/ Total Parenteral Nutrition/Amino Acids/Dextrose/ Fat Emulsion Intravenous 1,512 ml @ 63 mls/hr TPN CONT IV Last administered on 01/13/19at 21:54; Start 01/13/19 at 22:00; Stop 01/14/19 at 21:59 Multi-Ingred Cream/Lotion/Oil/ Oint (Artificial Tears Eye Ointment) 1 amanda PRN Q1HR PRN OU DRY EYE Last administered on 01/13/19at 17:14; Start 01/13/19 at 16:45 Docusate Sodium (Enemeez) 283 mg 1X ONCE MO Last administered on 01/13/19at 17:14; Start 01/13/19 at 16:45; Stop 01/13/19 at 16:47; Status DC Levofloxacin/ Dextrose 100 ml @ 100 mls/hr Q24H IV Last administered on 01/14/19at 08:20; Start 01/14/19 at 09:00 Vitals/I & O Vital Sign - Last 24 Hours 01/13/19 01/13/19 01/13/19 01/13/19 09:04 09:35 10:03 11:00 Temp 98.5 98.5 Pulse 93 93 93 Resp 22 20 22 B/P (MAP) 86/38 (54) 87/34 (51) 79/53 (62) Pulse Ox 96 96 96 97 O2 Delivery Ventilator Ventilator Ventilator Ventilator 01/13/19 01/13/19 01/13/19 01/13/19 12:03 12:03 12:05 12:16 Temp 97.8 97.8 Pulse 100 Resp 23 23 B/P (MAP) 157/67 (97) Pulse Ox 97 97 96 O2 Delivery Ventilator Ventilator Ventilator Mechanical Ventilator 01/13/19 01/13/19 01/13/19 01/13/19 12:33 13:06 14:10 14:29 Pulse 98 110 Resp 21 22 22 B/P (MAP) 124/53 (76) 116/51 (72) Pulse Ox 96 98 97 98 O2 Delivery Ventilator Ventilator Ventilator Ventilator 01/13/19 01/13/19 01/13/19 01/13/19 15:00 15:51 16:00 16:00 Temp 98.2 98.2 Pulse 112 110 Resp 21 23 B/P (MAP) 125/55 (78) 118/58 (78) Pulse Ox 98 98 98 O2 Delivery Ventilator Ventilator Mechanical Ventilator Ventilator 01/13/19 01/13/19 01/13/19 01/13/19 17:28 17:40 19:00 19:29 Pulse 103 110 Resp 23 20 B/P (MAP) 132/57 (82) 97/43 (61) Pulse Ox 96 96 98 98 O2 Delivery Ventilator Ventilator Ventilator Ventilator 01/13/19 01/13/19 01/13/19 01/13/19 19:37 20:00 20:00 20:30 Temp 100.1 100.1 Pulse 114 Resp 25 25 20 B/P (MAP) 92/40 (57) Pulse Ox 96 99 99 O2 Delivery Ventilator Ventilator Mechanical Ventilator Ventilator 01/13/19 01/13/19 01/13/19 01/13/19 21:00 21:15 22:00 23:00 Pulse 116 119 Resp 22 23 B/P (MAP) 106/41 (62) 134/62 (86) Pulse Ox 100 99 100 99 O2 Delivery Ventilator Ventilator Ventilator Ventilator 01/13/19 01/13/19 01/14/19 01/14/19 23:00 23:45 00:00 00:00 Temp 102.3 102.3 Pulse 121 125 Resp 25 22 B/P (MAP) 115/51 (72) 112/46 (68) 116/61 (79) Pulse Ox 99 99 O2 Delivery Ventilator Mechanical Ventilator Ventilator 01/14/19 01/14/19 01/14/19 01/14/19 00:25 00:45 01:00 01:15 Pulse 120 Resp 24 B/P (MAP) 96/63 (74) 105/54 (71) 115/55 (75) Pulse Ox 100 100 O2 Delivery Ventilator Ventilator 01/14/19 01/14/19 01/14/19 01/14/19 01:29 02:00 02:00 02:15 Pulse 116 Resp 26 23 23 B/P (MAP) 108/46 (66) 100/54 (69) Pulse Ox 99 99 99 O2 Delivery Ventilator Ventilator Ventilator 01/14/19 01/14/19 01/14/19 01/14/19 03:00 03:15 03:42 04:00 Temp 101.7 101.7 Pulse 118 118 Resp 22 23 B/P (MAP) 105/53 (70) 99/45 (63) 94/46 (62) Pulse Ox 99 100 100 O2 Delivery Ventilator Ventilator Ventilator 01/14/19 01/14/19 01/14/19 01/14/19 04:00 04:15 05:00 05:25 Pulse 116 Resp 22 B/P (MAP) 89/41 (57) 91/44 (60) Pulse Ox 99 100 O2 Delivery Mechanical Ventilator Ventilator Ventilator 01/14/19 01/14/19 06:00 07:00 Pulse 117 112 Resp 22 21 B/P (MAP) 101/49 (66) 92/39 (56) Pulse Ox 100 96 O2 Delivery Ventilator Ventilator Intake and Output 01/13/19 01/13/19 01/14/19 15:00 23:00 07:00 Intake Total 1050 ml 1482 ml 1446 ml Output Total 790 ml 655 ml 540 ml Balance 260 ml 827 ml 906 ml MELRE MEYER MD Jan 14, 2019 08:55
--- NOTE | 2019-01-14 08:56 | RAD ---
EXAM: AP View of the chest DATE: 01/14/2019 9:00 AM INDICATION: Respiratory failure COMPARISON: No Prior FINDINGS: ET tube tip terminates about 5 cm above the pro. Dual-lumen right IJ vascular catheter tip projects over the right atrium. Initial right IJ vascular catheter tip projects over the middistal SVC. Enteric tube extends beyond the diaphragm tip is not convincingly seen. Bilateral perihilar and lung base airspace opacities are mildly improved. Small left pleural effusion is also mildly improved. No pneumothorax. Electronically signed by: Jeremias Alan MD (01/14/2019 8:53 AM) [id number]
[2019-01-14] MEDS: LACTULOSE 20 GM/30 ML SOLUTION. PO SCH ×3 (08:57→21:01)
[2019-01-14] MEDS: NOREPINEPHRIN 8MG/250ML PREMIX 250 ML IV PRN (08:58)
[2019-01-14] MEDS: PANTOPRAZOLE IV PUSH 40 MG VIAL. IVP SCH (08:58)
[2019-01-14] MEDS: ACETAMINOPHEN 650 MG/20.3 ML SOLUTION. PEG PRN (09:11)
--- NOTE | 2019-01-14 09:18 | PDOC ---
PULMONARY PROGRESS NOTES Subjective SEDATED ON AC MODE 10 PEEP 100 %, on propofol, versed, fentanyl, mod ett secretion started on low dose levo, Vitals Vital Signs Date Time Temp Pulse Resp B/P (MAP) Pulse Ox O2 Delivery O2 Flow Rate FiO2 01/14/19 07:00 112 21 92/39 (56) 96 Ventilator 01/14/19 04:00 101.7 101.7 Comments ros as mentioned as above discussed w rn other sys otherwise neg on vent sedated Lungs: Other (decrease bs) Cardiovascular: S1, S2 Abdomen: Soft, Non-tender, Other (DISTENDED no mass) Extremities: Other (EDEMA) Skin: Warm Labs Laboratory Tests Test 01/12/19 11:20 01/12/19 13:14 01/12/19 17:56 01/13/19 05:15 Prothrombin Time 15.6 SEC (11.7-14.0) Prothromb Time International Ratio 1.3 (0.8-1.1) Total Bilirubin 10.9 mg/dL (0.2-1.0) 11.3 mg/dL (0.2-1.0) Direct Bilirubin 9.4 mg/dL (0.0-0.2) Aspartate Amino Transf (AST/SGOT) 245 U/L (15-37) 236 U/L (15-37) Alanine Aminotransferase (ALT/SGPT) 107 U/L (16-63) 92 U/L (16-63) Alkaline Phosphatase 124 U/L (46-116) 155 U/L (46-116) Total Protein 6.1 g/dL (6.4-8.2) 6.1 g/dL (6.4-8.2) Albumin 1.7 g/dL (3.4-5.0) 1.4 g/dL (3.4-5.0) Glucose (Fingerstick) 94 mg/dL (70-99) 85 mg/dL (70-99) White Blood Count 16.2 x10^3/uL (4.0-11.0) Red Blood Count 2.70 x10^6/uL (4.30-5.70) Hemoglobin 8.9 g/dL (13.0-17.5) Hematocrit 27.2 % (39.0-53.0) Mean Corpuscular Volume 101 fL (79-100) Mean Corpuscular Hemoglobin 33 pg (25-35) Mean Corpuscular Hemoglobin Concent 33 g/dL (31-37) Red Cell Distribution Width 17.6 % (11.5-14.5) Platelet Count 167 x10^3/uL (140-400) Neutrophils (%) (Auto) 81 % (31-73) Lymphocytes (%) (Auto) 14 % (24-48) Monocytes (%) (Auto) 4 % (0-9) Eosinophils (%) (Auto) 1 % (0-3) Basophils (%) (Auto) 0 % (0-3) Neutrophils # (Auto) 13.2 x10^3/uL (1.8-7.7) Lymphocytes # (Auto) 2.3 x10^3/uL (1.0-4.8) Monocytes # (Auto) 0.6 x10^3/uL (0.0-1.1) Eosinophils # (Auto) 0.1 x10^3/uL (0.0-0.7) Basophils # (Auto) 0.1 x10^3/uL (0.0-0.2) Sodium Level 147 mmol/L (136-145) Potassium Level 4.3 mmol/L (3.5-5.1) Chloride Level 111 mmol/L (98-107) Carbon Dioxide Level 25 mmol/L (21-32) Anion Gap 11 (6-14) Blood Urea Nitrogen 73 mg/dL (8-26) Creatinine 2.2 mg/dL (0.7-1.3) Estimated GFR (Cockcroft-Gault) 33.7 BUN/Creatinine Ratio 33 (6-20) Glucose Level 88 mg/dL (70-99) Calcium Level 7.0 mg/dL (8.5-10.1) Phosphorus Level 5.6 mg/dL (2.6-4.7) Magnesium Level 3.3 mg/dL (1.8-2.4) Albumin/Globulin Ratio 0.3 (1.0-1.7) Test 01/13/19 05:21 01/13/19 05:45 01/13/19 08:00 01/13/19 12:20 Glucose (Fingerstick) 82 mg/dL (70-99) 99 mg/dL (70-99) Prothrombin Time 16.1 SEC (11.7-14.0) Prothromb Time International Ratio 1.3 (0.8-1.1) O2 Saturation 92 % (92-99) Arterial Blood pH 7.37 (7.35-7.45) Arterial Blood pCO2 at Patient Temp 41 mmHg (35-46) Arterial Blood pO2 at Patient Temp 72 mmHg (85-108) Arterial Blood HCO3 23 mmol/L (21-28) Arterial Blood Base Excess -2 mmol/L (-3-3) FiO2 100 Test 01/13/19 17:17 01/14/19 05:25 01/14/19 08:30 Glucose (Fingerstick) 78 mg/dL (70-99) White Blood Count 26.9 x10^3/uL (4.0-11.0) Red Blood Count 2.53 x10^6/uL (4.30-5.70) Hemoglobin 8.3 g/dL (13.0-17.5) Hematocrit 25.2 % (39.0-53.0) Mean Corpuscular Volume 100 fL (79-100) Mean Corpuscular Hemoglobin 33 pg (25-35) Mean Corpuscular Hemoglobin Concent 33 g/dL (31-37) Red Cell Distribution Width 17.5 % (11.5-14.5) Platelet Count 156 x10^3/uL (140-400) Neutrophils (%) (Auto) 65 % (31-73) Lymphocytes (%) (Auto) 30 % (24-48) Monocytes (%) (Auto) 3 % (0-9) Eosinophils (%) (Auto) 1 % (0-3) Basophils (%) (Auto) 1 % (0-3) Neutrophils # (Auto) 17.5 x10^3/uL (1.8-7.7) Lymphocytes # (Auto) 8.1 x10^3/uL (1.0-4.8) Monocytes # (Auto) 0.9 x10^3/uL (0.0-1.1) Eosinophils # (Auto) 0.2 x10^3/uL (0.0-0.7) Basophils # (Auto) 0.4 x10^3/uL (0.0-0.2) Segmented Neutrophils % 73 % (35-66) Band Neutrophils % 10 % (0-9) Lymphocytes % 14 % (24-48) Monocytes % 1 % (0-10) Eosinophils % 2 % (0-5) Nucleated Red Blood Cells 1 Toxic Granulation Mod Toxic Vacuolation Slight Platelet Estimate Adequate (ADEQUATE) Polychromasia Slight Anisocytosis Slight Prothrombin Time 16.7 SEC (11.7-14.0) Prothromb Time International Ratio 1.4 (0.8-1.1) Sodium Level 141 mmol/L (136-145) Potassium Level 4.3 mmol/L (3.5-5.1) Chloride Level 104 mmol/L (98-107) Carbon Dioxide Level 23 mmol/L (21-32) Anion Gap 14 (6-14) Blood Urea Nitrogen 66 mg/dL (8-26) Creatinine 2.5 mg/dL (0.7-1.3) Estimated GFR (Cockcroft-Gault) 29.0 BUN/Creatinine Ratio 26 (6-20) Glucose Level 106 mg/dL (70-99) Calcium Level 7.2 mg/dL (8.5-10.1) Phosphorus Level 3.9 mg/dL (2.6-4.7) Magnesium Level 2.7 mg/dL (1.8-2.4) Total Bilirubin 10.2 mg/dL (0.2-1.0) Aspartate Amino Transf (AST/SGOT) 253 U/L (15-37) Alanine Aminotransferase (ALT/SGPT) 87 U/L (16-63) Alkaline Phosphatase 109 U/L (46-116) Total Protein 5.7 g/dL (6.4-8.2) Albumin 1.4 g/dL (3.4-5.0) Albumin/Globulin Ratio 0.3 (1.0-1.7) Triglycerides Level 281 mg/dL (0-150) O2 Saturation 91 % (92-99) Arterial Blood pH 7.38 (7.35-7.45) Arterial Blood pCO2 at Patient Temp 40 mmHg (35-46) Arterial Blood pO2 at Patient Temp 68 mmHg (85-108) Arterial Blood HCO3 23 mmol/L (21-28) Arterial Blood Base Excess -2 mmol/L (-3-3) FiO2 100 Laboratory Tests Test 01/13/19 12:20 01/13/19 17:17 01/14/19 05:25 01/14/19 08:30 Glucose (Fingerstick) 99 mg/dL (70-99) 78 mg/dL (70-99) White Blood Count 26.9 x10^3/uL (4.0-11.0) Red Blood Count 2.53 x10^6/uL (4.30-5.70) Hemoglobin 8.3 g/dL (13.0-17.5) Hematocrit 25.2 % (39.0-53.0) Mean Corpuscular Volume 100 fL (79-100) Mean Corpuscular Hemoglobin 33 pg (25-35) Mean Corpuscular Hemoglobin Concent 33 g/dL (31-37) Red Cell Distribution Width 17.5 % (11.5-14.5) Platelet Count 156 x10^3/uL (140-400) Neutrophils (%) (Auto) 65 % (31-73) Lymphocytes (%) (Auto) 30 % (24-48) Monocytes (%) (Auto) 3 % (0-9) Eosinophils (%) (Auto) 1 % (0-3) Basophils (%) (Auto) 1 % (0-3) Neutrophils # (Auto) 17.5 x10^3/uL (1.8-7.7) Lymphocytes # (Auto) 8.1 x10^3/uL (1.0-4.8) Monocytes # (Auto) 0.9 x10^3/uL (0.0-1.1) Eosinophils # (Auto) 0.2 x10^3/uL (0.0-0.7) Basophils # (Auto) 0.4 x10^3/uL (0.0-0.2) Segmented Neutrophils % 73 % (35-66) Band Neutrophils % 10 % (0-9) Lymphocytes % 14 % (24-48) Monocytes % 1 % (0-10) Eosinophils % 2 % (0-5) Nucleated Red Blood Cells 1 Toxic Granulation Mod Toxic Vacuolation Slight Platelet Estimate Adequate (ADEQUATE) Polychromasia Slight Anisocytosis Slight Prothrombin Time 16.7 SEC (11.7-14.0) Prothromb Time International Ratio 1.4 (0.8-1.1) Sodium Level 141 mmol/L (136-145) Potassium Level 4.3 mmol/L (3.5-5.1) Chloride Level 104 mmol/L (98-107) Carbon Dioxide Level 23 mmol/L (21-32) Anion Gap 14 (6-14) Blood Urea Nitrogen 66 mg/dL (8-26) Creatinine 2.5 mg/dL (0.7-1.3) Estimated GFR (Cockcroft-Gault) 29.0 BUN/Creatinine Ratio 26 (6-20) Glucose Level 106 mg/dL (70-99) Calcium Level 7.2 mg/dL (8.5-10.1) Phosphorus Level 3.9 mg/dL (2.6-4.7) Magnesium Level 2.7 mg/dL (1.8-2.4) Total Bilirubin 10.2 mg/dL (0.2-1.0) Aspartate Amino Transf (AST/SGOT) 253 U/L (15-37) Alanine Aminotransferase (ALT/SGPT) 87 U/L (16-63) Alkaline Phosphatase 109 U/L (46-116) Total Protein 5.7 g/dL (6.4-8.2) Albumin 1.4 g/dL (3.4-5.0) Albumin/Globulin Ratio 0.3 (1.0-1.7) Triglycerides Level 281 mg/dL (0-150) O2 Saturation 91 % (92-99) Arterial Blood pH 7.38 (7.35-7.45) Arterial Blood pCO2 at Patient Temp 40 mmHg (35-46) Arterial Blood pO2 at Patient Temp 68 mmHg (85-108) Arterial Blood HCO3 23 mmol/L (21-28) Arterial Blood Base Excess -2 mmol/L (-3-3) FiO2 100 Comments cxr reviewed, 01/14 ett ok 1. Bilateral infiltrates ,mild improvement Impression . IMPRESSION: 1. Acute respiratory failure, multifactorial, secondary to multiorgan failure. Now with worsening hypoxia. likely aspiration pneumonitis/ ARDS, no evidence of hepato-pulmonary shunt 2. End-stage liver disease with persistent abnormal LFT 3. Multiorgan failure. 4. Renal failure. ? hepato renal syndrome, inititated on HD 5. Acute gastrointestinal bleed.? MV Tear, stable Hb 6. sepsis. 7. Leukocytosis. 8. Hematemesis.resolved 9. Rhabdomyolysis. 10. Alcohol abuse. 11. Ascites. 12. Electrolyte abnormalities. 13. fever, despite bs abx, ID following Imaging: EGD 01/08 E--NO VARICES. Erosions distally c/w reflux/repeated emesis. One quite long narrow erosion which could have been a M-W. No active bleeding or clot. G--Not much retained blood after OG suction and Reglan. NO gastric varices. Linear erosions along the rugae in fundus and body c/w alcoholic or stress gastritis. Scattered "bruises" from OG tube. No ulcer, etc. D--Normal to second portion. IMP: Reflux esophagitis. ? recent M-W tear. Alcoholic gastritis. No active bleeding or clot seen. Plan . 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 D/W RN AND and family 2. Continue antibiotics per Infectious Disease service. zyvox added for persistent fever, also on Zosyn, levoquin 3. CVP 11 , adequate volume status 4. HD initiated 01/13 5. Monitor hemoglobin and hematocrit. 6. Follow GI recommendation.f/u LFT as needed 7. Alcohol withdrawal protocol. 8. Nutrition, on TPN, high residuals , add motility agent 9. echo with bubble study Neg d/w family. all questions answered. cct 30 min FRED SMITH MD Jan 14, 2019 09:18
[2019-01-14] MEDS ORDERED: METOCLOPRAMIDE HCL 10 MG/2 ML VIAL. IVP ONE (10:30)
--- NOTE | 2019-01-14 11:05 | PDOC ---
Objective: Objective: D/w nurse - two small black stools yesterday. Didn't tolerate OG feeds. On TPN. Staff wondering if Dobhoff would be more effective. Tmax 102.3 Vital Signs: Vital Signs Date Time Temp Pulse Resp B/P (MAP) Pulse Ox O2 Delivery O2 Flow Rate FiO2 01/14/19 10:00 120 33 105/43 (63) 97 Ventilator 01/14/19 08:00 101.4 101.4 Labs: Laboratory Tests Test 01/13/19 11:50 01/13/19 12:20 01/13/19 17:17 01/14/19 05:25 Hepatitis B Surface Antibody, Quant <3.1 mIU/mL Glucose (Fingerstick) 99 mg/dL 78 mg/dL White Blood Count 26.9 x10^3/uL Red Blood Count 2.53 x10^6/uL Hemoglobin 8.3 g/dL Hematocrit 25.2 % Mean Corpuscular Volume 100 fL Mean Corpuscular Hemoglobin 33 pg Mean Corpuscular Hemoglobin Concent 33 g/dL Red Cell Distribution Width 17.5 % Platelet Count 156 x10^3/uL Neutrophils (%) (Auto) 65 % Lymphocytes (%) (Auto) 30 % Monocytes (%) (Auto) 3 % Eosinophils (%) (Auto) 1 % Basophils (%) (Auto) 1 % Neutrophils # (Auto) 17.5 x10^3/uL Lymphocytes # (Auto) 8.1 x10^3/uL Monocytes # (Auto) 0.9 x10^3/uL Eosinophils # (Auto) 0.2 x10^3/uL Basophils # (Auto) 0.4 x10^3/uL Segmented Neutrophils % 73 % Band Neutrophils % 10 % Lymphocytes % 14 % Monocytes % 1 % Eosinophils % 2 % Nucleated Red Blood Cells 1 Toxic Granulation Mod Toxic Vacuolation Slight Platelet Estimate Adequate Polychromasia Slight Anisocytosis Slight Prothrombin Time 16.7 SEC Prothromb Time International Ratio 1.4 Sodium Level 141 mmol/L Potassium Level 4.3 mmol/L Chloride Level 104 mmol/L Carbon Dioxide Level 23 mmol/L Anion Gap 14 Blood Urea Nitrogen 66 mg/dL Creatinine 2.5 mg/dL Estimated GFR (Cockcroft-Gault) 29.0 BUN/Creatinine Ratio 26 Glucose Level 106 mg/dL Calcium Level 7.2 mg/dL Phosphorus Level 3.9 mg/dL Magnesium Level 2.7 mg/dL Total Bilirubin 10.2 mg/dL Aspartate Amino Transf (AST/SGOT) 253 U/L Alanine Aminotransferase (ALT/SGPT) 87 U/L Alkaline Phosphatase 109 U/L Total Protein 5.7 g/dL Albumin 1.4 g/dL Albumin/Globulin Ratio 0.3 Triglycerides Level 281 mg/dL Test 01/14/19 08:30 01/14/19 09:09 O2 Saturation 91 % Arterial Blood pH 7.38 Arterial Blood pCO2 at Patient Temp 40 mmHg Arterial Blood pO2 at Patient Temp 68 mmHg Arterial Blood HCO3 23 mmol/L Arterial Blood Base Excess -2 mmol/L FiO2 100 Glucose (Fingerstick) 118 mg/dL BLOOD CULTURE Final NO GROWTH AFTER 5 DAYS Imaging: CXR 01/14 FINDINGS: ET tube tip terminates about 5 cm above the pro. Dual-lumen right IJ vascular catheter tip projects over the right atrium. Initial right IJ vascular catheter tip projects over the middistal SVC. Enteric tube extends beyond the diaphragm tip is not convincingly seen. Bilateral perihilar and lung base airspace opacities are mildly improved. Small left pleural effusion is also mildly improved. No pneumothorax. PE: GEN: intubated LUNGS: vent HEART: tachycardic ABD: quiet NEURO/PSYCH: sedated A/P: Fever, resp failure, DOMONIQUE Alcoholic hepatitis, ileus Hematemesis, melena - resolved, EGD last week, on PPI -- Not tolerating OG feeds, on TPN. Will review w/ Dr. Goodman. PINKY GONZALES Jan 14, 2019 11:05
[2019-01-14] MEDS ORDERED: IV NORMAL SALINE 1000ML BAG 1,000 ML IV PRN ×2 (11:26)
[2019-01-14] MEDS ORDERED: DIALYSIS PATIENT. MC PRN ×2 (11:30)
[2019-01-14] MEDS ORDERED: ALBUMIN HUMAN 25% 200 ML IV PRN (11:30)
[2019-01-14 11:39] LABS: MYCOPLASMA PATIENT POSITIVE (NEGATIVE)
[2019-01-14] MEDS: DEXMEDETOMIDINE 400 MCG in IV NORMAL SALINE 100ML 96 ML IV PRN ×4 (11:44→20:41)
--- NOTE | 2019-01-14 12:17 | PDOC ---
Renal-Progress Notes Subjective Notes Notes REMAINS INTUBATED History of Present Illness Hx of present illness NO CHANGES Vitals Vitals Vital Signs Date Time Temp Pulse Resp B/P (MAP) Pulse Ox O2 Delivery O2 Flow Rate FiO2 01/14/19 11:11 100 Ventilator 01/14/19 11:00 116 20 106/41 (62) 01/14/19 08:00 101.4 101.4 Weight Weight [ ] I.O. Intake and Output Intake and Output 01/14/19 07:00 Intake Total 3978 ml Output Total 2000 ml Balance 1978 ml IV Total 3098 ml Tube Feeding 320 ml Blood Product IV Normal Saline Flush 360 ml Other 200 ml Output Urine Total 950 ml Gastric Drainage Total 700 ml Oral Regurgitation 350 ml # Bowel Movements 2 Labs Labs Laboratory Tests Test 01/13/19 12:20 01/13/19 17:17 01/14/19 05:25 01/14/19 08:30 Glucose (Fingerstick) 99 mg/dL (70-99) 78 mg/dL (70-99) White Blood Count 26.9 x10^3/uL (4.0-11.0) Red Blood Count 2.53 x10^6/uL (4.30-5.70) Hemoglobin 8.3 g/dL (13.0-17.5) Hematocrit 25.2 % (39.0-53.0) Mean Corpuscular Volume 100 fL (79-100) Mean Corpuscular Hemoglobin 33 pg (25-35) Mean Corpuscular Hemoglobin Concent 33 g/dL (31-37) Red Cell Distribution Width 17.5 % (11.5-14.5) Platelet Count 156 x10^3/uL (140-400) Neutrophils (%) (Auto) 65 % (31-73) Lymphocytes (%) (Auto) 30 % (24-48) Monocytes (%) (Auto) 3 % (0-9) Eosinophils (%) (Auto) 1 % (0-3) Basophils (%) (Auto) 1 % (0-3) Neutrophils # (Auto) 17.5 x10^3/uL (1.8-7.7) Lymphocytes # (Auto) 8.1 x10^3/uL (1.0-4.8) Monocytes # (Auto) 0.9 x10^3/uL (0.0-1.1) Eosinophils # (Auto) 0.2 x10^3/uL (0.0-0.7) Basophils # (Auto) 0.4 x10^3/uL (0.0-0.2) Segmented Neutrophils % 73 % (35-66) Band Neutrophils % 10 % (0-9) Lymphocytes % 14 % (24-48) Monocytes % 1 % (0-10) Eosinophils % 2 % (0-5) Nucleated Red Blood Cells 1 Toxic Granulation Mod Toxic Vacuolation Slight Platelet Estimate Adequate (ADEQUATE) Polychromasia Slight Anisocytosis Slight Prothrombin Time 16.7 SEC (11.7-14.0) Prothromb Time International Ratio 1.4 (0.8-1.1) Sodium Level 141 mmol/L (136-145) Potassium Level 4.3 mmol/L (3.5-5.1) Chloride Level 104 mmol/L (98-107) Carbon Dioxide Level 23 mmol/L (21-32) Anion Gap 14 (6-14) Blood Urea Nitrogen 66 mg/dL (8-26) Creatinine 2.5 mg/dL (0.7-1.3) Estimated GFR (Cockcroft-Gault) 29.0 BUN/Creatinine Ratio 26 (6-20) Glucose Level 106 mg/dL (70-99) Calcium Level 7.2 mg/dL (8.5-10.1) Phosphorus Level 3.9 mg/dL (2.6-4.7) Magnesium Level 2.7 mg/dL (1.8-2.4) Total Bilirubin 10.2 mg/dL (0.2-1.0) Aspartate Amino Transf (AST/SGOT) 253 U/L (15-37) Alanine Aminotransferase (ALT/SGPT) 87 U/L (16-63) Alkaline Phosphatase 109 U/L (46-116) Total Protein 5.7 g/dL (6.4-8.2) Albumin 1.4 g/dL (3.4-5.0) Albumin/Globulin Ratio 0.3 (1.0-1.7) Triglycerides Level 281 mg/dL (0-150) Mycoplasma Serology (LAB) Positive (NEGATIVE) O2 Saturation 91 % (92-99) Arterial Blood pH 7.38 (7.35-7.45) Arterial Blood pCO2 at Patient Temp 40 mmHg (35-46) Arterial Blood pO2 at Patient Temp 68 mmHg (85-108) Arterial Blood HCO3 23 mmol/L (21-28) Arterial Blood Base Excess -2 mmol/L (-3-3) FiO2 100 Test 01/14/19 09:09 Glucose (Fingerstick) 118 mg/dL (70-99) Micro Micro Microbiology 01/08/19 Blood Culture - Final, Complete NO GROWTH AFTER 5 DAYS 01/08/19 Urine Culture - Final, Complete 01/08/19 Urine Culture Result 1 (ELMA) - Final, Complete Review of Systems Constitutional: yes: unresponsive Physical Exam General Appearance: other (INTUBATED) Skin: warm Respiratory: decreased breath sounds Abdomen: soft, distension, other (HYPOACTIVE) Genitourinary: bladder flat, esteves catheter Extremities: pulses present, no edema Neurology: other (SEDATED) Assessment Assessment IMP DOMONIQUE-ATN WITH ANURIA-HEPATORENAL ACUTE RESPIRATORY FAILURE-SUSPECT ARDS MET ACIDOSIS-CONTROLLED ACUTE ATOP CHRONIC LIVER FAILURE-NOT ANY BETTER ANEMIA SIRS VS SEPSIS WITH HYPOTENSION LEUCOCYTOSIS-WORSE HEPATIC ENCEPHALOPATHY ASCITES PLAN PT REMAINS CRITICALLY ILL CONT ANTIBIOTICS CONT PRESSORS ALBUMIN NEEDED STARTED ARANESP CONT TPN WILL HD AGAIN TODAY UF MIN TOLERATED UPDATED FAMILY CONT SUPPORTIVE CARE D/W ID AND ATTENDING WILL FOLLOW DANA SAHNI MD Jan 14, 2019 12:16
[2019-01-14] MEDS: TPN PER PHARMACY MC PRN (13:18)
--- NOTE | 2019-01-14 15:15 | NUR ---
primary clinician here to dialyze patient
[2019-01-14] MEDS ORDERED: POLYVINYL ALCOHOL 1.4% OPHTH SOLUTION 15ML BOTTLE. OU PRN (15:30)
[2019-01-14] MEDS: VECURONIUM BOLUS 10 MG VIAL. IV PRN (21:50)
[2019-01-14] MEDS ORDERED: TOTAL PARENTERAL NUTRITION IV SCH ×9 (22:00)
[2019-01-14] MEDS ORDERED: [UNRECOGNIZED DRUG - OTHER] IV SCH ×9 (22:00)
[2019-01-14] MEDS ORDERED: DEXTROSE 70% IV SCH ×9 (22:00)
[2019-01-14] MEDS ORDERED: AMINO ACID IV SCH ×9 (22:00)
--- NOTE | 2019-01-14 23:30 | NUR ---
Turn attempted and patient decreased SaO2. Vecuronium given with no improvement. Dr. Rodriguez called and orders received to increase PEEP. Notified Jaimie, RT. No improvement. Assisted ventilations with BVM, still no improvement. Placed back on ventilator. Slow improvement with increased sao2. will continue to monitor.
[2019-01-15] VITALS (24 sets, daily range): BP systolic 83–144; BP diastolic 38–69
[2019-01-15] MEDS: PIPERACILLIN/TAZOBACTAM 3.375 GM in IV NORMAL SALINE 50ML 50 ML IV SCH ×5 (00:04→23:40)
[2019-01-15] MEDS: DEXMEDETOMIDINE 400 MCG in IV NORMAL SALINE 100ML 96 ML IV PRN ×9 (00:04→23:50)
[2019-01-15] MEDS: MIDAZOLAM 100mg/100ml NS BAG 100 ML IV PRN ×4 (00:07→17:43)
[2019-01-15 06:00] LABS: BASO # 0.3 x10^3/uL (0.0-0.2); BASO % 1 % (0-3); EOS # 0.1 x10^3/uL (0.0-0.7); EOS % 0 % (0-3); HEMATOCRIT 30.1 % (39.0-53.0); HEMOGLOBIN 9.5 g/dL (13.0-17.5); LYMPH # 6.9 x10^3/uL (1.0-4.8); LYMPH % 16 % (24-48); MEAN CORPUSCULAR HEMOGLOBIN 33 pg (25-35); MEAN CORPUSCULAR HGB CONC 32 g/dL (31-37); MEAN CORPUSCULAR VOLUME 104 fL (79-100); MONO # 0.8 x10^3/uL (0.0-1.1); MONO % 2 % (0-9); NEUT # 36.4 x10^3/uL (1.8-7.7); NEUT % 82 % (31-73); PLATELET COUNT 171 x10^3/uL (140-400); RED BLOOD COUNT 2.89 x10^6/uL (4.30-5.70); RED CELL DISTRIBUTION WIDTH 18.6 % (11.5-14.5)
[2019-01-15 06:01] LABS: PROTHROMBIN TIME PATIENT 17.9 SEC (11.7-14.0)
[2019-01-15 06:05] LABS: ALBUMIN 1.3 g/dL (3.4-5.0); ALBUMIN/GLOBULIN RATIO 0.3 (1.0-1.7); CALCIUM 7.1 mg/dL (8.5-10.1); CREATININE 3.1 mg/dL (0.7-1.3); GFR 22.7; MAGNESIUM 2.5 mg/dL (1.8-2.4); PHOSPHORUS 7.8 mg/dL (2.6-4.7); POTASSIUM 5.6 mmol/L (3.5-5.1); TOTAL PROTEIN 5.9 g/dL (6.4-8.2)
[2019-01-15 06:20] LABS: WHITE BLOOD COUNT 44.5 x10^3/uL (4.0-11.0)
[2019-01-15] MEDS: INSULIN LISPRO 300 UNITS/3 ML VIAL. SQ SCH ×3 (08:00→16:38)
[2019-01-15 08:10] LABS: BASE EXCESS ABG -11 mmol/L (-3-3); HCO3 ABG 18 mmol/L (21-28); PCO2 ABG 55 mmHg (35-46); PO2 ABG 62 mmHg (85-108); SAT O2 ABG 84 % (92-99)
[2019-01-15 08:13] LABS: FIO2 ABG 100
[2019-01-15] MEDS: PANTOPRAZOLE IV PUSH 40 MG VIAL. IVP SCH (08:14)
[2019-01-15 08:24] LABS: % BANDS 7 % (0-9); % LYMPHS 10 % (24-48); % METAS 1 % (0-0); % MONOS 3 % (0-10); % MYELOS 1 % (0-0); % SEGS 78 % (35-66); ANISOCYTOSIS SLIGHT; PLT ESTIMATE ADEQUATE (ADEQUATE)
[2019-01-15 08:25] LABS: TOXIC GRANULATION MOD; TOXIC VACUOLATION PRESENT
[2019-01-15] MEDS ORDERED: SODIUM BICARB ADULT 8.4% 50 MEQ/50 ML DISP.SYRIN. ONE (08:25)
--- NOTE | 2019-01-15 08:26 | PDOC ---
Infectious Disease Note Subjective Subjective Sedated Orally intubated ROS ROS no n/v/d/ fever improved Vital Sign Vital Signs Vital Signs Date Time Temp Pulse Resp B/P (MAP) Pulse Ox O2 Delivery O2 Flow Rate FiO2 01/15/19 07:50 90 Ventilator 01/15/19 06:00 101 21 93/38 (56) 01/15/19 04:00 98.4 98.4 01/15/19 02:56 2.0 Physical Exam PHYSICAL EXAM GENERAL: Orally intubated and sedated, mitts HEENT: Pupils equal, ETT and OGT Heart : S1 S2 tachy ABDOMEN: Obese, soft, hypoactive BS : - Pollard EXTREMITIES: Trace edema lower extremities bilaterally. LLE ecchymosis. SKIN: Warm to touch. No rash , bruising /subcut hematoma NEUROLOGIC: Sedated PIV s clean Labs Lab Laboratory Tests Test 01/14/19 08:30 01/14/19 09:09 01/14/19 12:31 01/14/19 16:58 O2 Saturation 91 % (92-99) Arterial Blood pH 7.38 (7.35-7.45) Arterial Blood pCO2 at Patient Temp 40 mmHg (35-46) Arterial Blood pO2 at Patient Temp 68 mmHg (85-108) Arterial Blood HCO3 23 mmol/L (21-28) Arterial Blood Base Excess -2 mmol/L (-3-3) FiO2 100 Glucose (Fingerstick) 118 mg/dL (70-99) 124 mg/dL (70-99) 102 mg/dL (70-99) Test 01/15/19 05:30 01/15/19 08:00 01/15/19 08:03 White Blood Count 44.5 x10^3/uL (4.0-11.0) Red Blood Count 2.89 x10^6/uL (4.30-5.70) Hemoglobin 9.5 g/dL (13.0-17.5) Hematocrit 30.1 % (39.0-53.0) Mean Corpuscular Volume 104 fL (79-100) Mean Corpuscular Hemoglobin 33 pg (25-35) Mean Corpuscular Hemoglobin Concent 32 g/dL (31-37) Red Cell Distribution Width 18.6 % (11.5-14.5) Platelet Count 171 x10^3/uL (140-400) Neutrophils (%) (Auto) 82 % (31-73) Lymphocytes (%) (Auto) 16 % (24-48) Monocytes (%) (Auto) 2 % (0-9) Eosinophils (%) (Auto) 0 % (0-3) Basophils (%) (Auto) 1 % (0-3) Neutrophils # (Auto) 36.4 x10^3/uL (1.8-7.7) Lymphocytes # (Auto) 6.9 x10^3/uL (1.0-4.8) Monocytes # (Auto) 0.8 x10^3/uL (0.0-1.1) Eosinophils # (Auto) 0.1 x10^3/uL (0.0-0.7) Basophils # (Auto) 0.3 x10^3/uL (0.0-0.2) Prothrombin Time 17.9 SEC (11.7-14.0) Prothromb Time International Ratio 1.5 (0.8-1.1) Sodium Level 135 mmol/L (136-145) Potassium Level 5.6 mmol/L (3.5-5.1) Chloride Level 99 mmol/L (98-107) Carbon Dioxide Level 23 mmol/L (21-32) Anion Gap 13 (6-14) Blood Urea Nitrogen 62 mg/dL (8-26) Creatinine 3.1 mg/dL (0.7-1.3) Estimated GFR (Cockcroft-Gault) 22.7 BUN/Creatinine Ratio 20 (6-20) Glucose Level 84 mg/dL (70-99) Calcium Level 7.1 mg/dL (8.5-10.1) Phosphorus Level 7.8 mg/dL (2.6-4.7) Magnesium Level 2.5 mg/dL (1.8-2.4) Total Bilirubin 11.0 mg/dL (0.2-1.0) Aspartate Amino Transf (AST/SGOT) 232 U/L (15-37) Alanine Aminotransferase (ALT/SGPT) 81 U/L (16-63) Alkaline Phosphatase 134 U/L (46-116) Total Protein 5.9 g/dL (6.4-8.2) Albumin 1.3 g/dL (3.4-5.0) Albumin/Globulin Ratio 0.3 (1.0-1.7) O2 Saturation 84 % (92-99) Arterial Blood pH 7.14 (7.35-7.45) Arterial Blood pCO2 at Patient Temp 55 mmHg (35-46) Arterial Blood pO2 at Patient Temp 62 mmHg (85-108) Arterial Blood HCO3 18 mmol/L (21-28) Arterial Blood Base Excess -11 mmol/L (-3-3) FiO2 100 Glucose (Fingerstick) 78 mg/dL (70-99) Micro Microbiology 01/08/19 Blood Culture - Preliminary, Resulted NO GROWTH AFTER 3 DAYS 01/08/19 Urine Culture - Final, Complete 01/08/19 Urine Culture Result 1 ([facility]) - Final, Complete Objective Assessment Hypotension - off pressors Fever - likely sec to Withdrawl Leukocytosis - ? reactive, improved Lactic acidosis - better Resp failure now intubated ? UTI. cultures neg Anemia - s/p PRBCs GI Bleed - s/p EGD 01/08 - Reflux esophagitis. ? recent M-W tear. Alcoholic gastritis. Hepatic failure ? pancreatitis Rhabdo CK 965 ETOH abuse with mild ascites Electrolyte abnormalities Obstructive resp issues Left leg echymosis DOMONIQUE Mycoplasma + Plan Plan of Care Cont Zosyn. and zyvox and levaquin Sputum culture in process repeat Critically ill LETTY ALEXIS MD Jan 15, 2019 08:26
[2019-01-15] MEDS ORDERED: SODIUM BICARB ADULT 8.4% 50 MEQ/50 ML DISP.SYRIN. IV ONE (08:30)
[2019-01-15] MEDS: NOREPINEPHRIN 8MG/250ML PREMIX 250 ML IV PRN ×2 (08:41→17:44)
[2019-01-15] MEDS: VECURONIUM BOLUS 10 MG VIAL. IV PRN ×3 (08:54→22:00)
[2019-01-15] MEDS: LACTULOSE 20 GM/30 ML SOLUTION. PO SCH ×3 (09:00→20:49)
--- NOTE | 2019-01-15 09:00 | PDOC ---
SUBJECTIVE ROS Asked to see this gentleman for acute renal failure Extensive chart review performed. Patient apparently has been intubated. While turning him yesterday he developed hemodynamic compromise especially from the respiratory standpoint. He is now on Johnson percent FiO2 with ABGs of 7.14/55/62/18. He remains on Levophed at this time. I was called by the critical care physician regarding worsening respiratory status, possible pulmonary edema on his chest x-ray and to arrange for emergent dialysis. OBJECTIVE Vital Signs Vital Signs Date Time Temp Pulse Resp B/P (MAP) Pulse Ox O2 Delivery O2 Flow Rate FiO2 01/15/19 08:25 91 Ventilator 01/15/19 08:24 22 01/15/19 06:00 101 93/38 (56) 01/15/19 04:00 98.4 98.4 01/15/19 02:56 2.0 I & 0 Intake and Output 01/15/19 07:00 Intake Total 4604.37 ml Output Total 246 ml Balance 4358.37 ml IV Total 4604.37 ml Output Urine Total 246 ml PHYSICAL EXAM Physical Exam General Appearance: Patient remains sedated intubated on the vent In no apparent Distress Eyes: Sclera appears icteric Conjunctiva Normal EN: No EN Drainage Mucous Memb. moist, orally intubated Neck: no JVD no JVP Supple no palpable Thyromegaly CVS: S1 S2 no audible Murmur No Gallop No Rub +3 Edema, possible anasarca, tachycardic Resp: Scattered Rales no Rhonchi no Acc. Muscle use GI: BAS - ve NO Bruit Non Tender ? Distended, tympanic : no ellicitable CVA tenderness; no elicitable Suprapubic Tenderness SKIN: ? Erythematous malar Rash (presumably from alcoholism/liver f ailure) Breast Exam deferred Mu.Sk: Adequate passive ROM no Muscle Atrophy Heme: Unable to palpate Obvious LAD no palpable Splenomegaly NEURO: Unable to assess while sedated and intubated on the vent Psych: Unable to assess while sedated and intubated on the vent DIAGNOSIS/ASSESSMENT Assessment & Plan Acute renal failure, ATN: Proceed with dialysis as ordered below and then transition to CRRT F 180 NR 3.0 Hrs 2 K 2.5 Ca 140 Na 40 HC03 Qb 350 + Qd 500+ Heparin 0 Units Uf 2-3 Kgs or to dry weight as tolerated May give 25-50 gms of 25% Albumin if needed to maintain Hemodynamic stability Treatment plan reviewed and discussed with bath mix operator Hyperkalemia: Suspect due to metabolic and respiratory acidosis we'll hence proceed with dialysis and then transition to CRRT ANEMIA; Aranap as ordered, Transfuse with next HD as needed or on CRRT if needed Hypotension: Remains on pressors currently Nutrition: Currently on TPN Worsening respiratory failure with pulmonary edema: Unclear to me if he is an ARDS. We will ultrafilter as best tolerated. CRRT to try and manage negative fluid balance Possible septic shock: source is not clear Liver failure of unclear etiology. 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 Will attempt negative fluid balance as best tolerated hyPer phosphatemia: Watch on CRRT Nutrition: Patient unable to tolerate tube feeds hence continue with TPN for now Discussed with Dr. Rodriguez ICU nurse and dialysis nurse Critical care time spent 35 minutes COMMENT/RELEVANT DATA Meds Current Medications Medications (Trade) Dose Ordered Sig/Quyen Start Time Stop Time Status Last Admin Dose Admin Acetaminophen (Tylenol Supp) 650 mg PRN Q6HRS PRN 01/08/19 18:15 01/09/19 23:44 650 MG Acetaminophen (Tylenol) 650 mg PRN Q6HRS PRN 01/12/19 16:30 01/14/19 09:11 650 MG Albumin Human 200 ml @ 200 mls/hr 1X PRN PRN 01/14/19 11:30 01/14/19 17:29 DC Artificial Tears (Artificial Tears) 1 drop Q4H PRN 01/14/19 15:30 01/14/19 16:43 1 DROP Benzocaine (Hurricaine One) 2 spray STK-MED ONCE 01/07/19 12:00 01/08/19 14:20 DC Bisacodyl (Dulcolax Supp) 10 mg 1X ONCE 01/13/19 11:00 01/13/19 11:01 DC 01/13/19 10:14 10 MG Clonidine HCl (Catapres) 0.1 mg PRN Q1HR PRN 01/08/19 07:15 Darbepoetin Giorgi (ARANESP for DIALYSIS PTS) 60 mcg WEEKLYHS 01/13/19 21:00 01/13/19 20:46 60 MCG Dexmedetomidine HCl 400 mcg/ Sodium Chloride 100 ml @ 0 mls/hr CONT PRN 01/14/19 11:30 01/15/19 08:34 31.8 MLS/HR Dextrose (Dextrose 50%-Water Syringe) 12.5 gm PRN Q15MIN PRN 01/09/19 10:30 Diphenhydramine HCl (Benadryl) 25 mg PRN Q15MIN PRN 01/08/19 07:15 Docusate Sodium (Enemeez) 283 mg 1X ONCE 01/13/19 16:45 01/13/19 16:47 DC 01/13/19 17:14 283 MG Fentanyl Citrate (Fentanyl 2ml Vial) 100 mcg 1X ONCE 01/08/19 09:45 01/08/19 09:46 DC 01/08/19 09:42 100 MCG Fentanyl Citrate (Fentanyl 600 Mcg/30 ml HAM TRIMMER) 600 mcg STK-MED ONCE 01/08/19 15:25 01/09/19 10:27 DC Haloperidol Lactate (Haldol Inj) 5 mg PRN Q4HRS PRN 01/08/19 07:15 Heparin Sodium (Porcine) (Heparin Sodium) 10,000 unit STK-MED ONCE 01/13/19 10:59 01/13/19 11:00 DC Info (PHARMACY MONITORING -- do not chart) 1 each PRN DAILY PRN 01/14/19 11:30 UNV Info (Tpn Per Pharmacy) 1 each PRN DAILY PRN 01/13/19 11:15 01/14/19 13:18 1 EACH Insulin Human Lispro (HumaLOG) 0-9 UNITS TIDWMEALS 01/09/19 12:00 Lactobacillus Rhamnosus (Culturelle) 1 cap BID 01/08/19 21:00 01/09/19 09:29 DC Lactulose (LACTULOSE 300ML for RECTAL) 200 gm Q6HRS 01/09/19 12:00 01/09/19 11:04 DC Lactulose (Lactulose) 20 gm TID 01/13/19 10:00 01/14/19 21:01 20 GM Levofloxacin/ Dextrose 100 ml @ 100 mls/hr Q24H 01/14/19 09:00 01/15/19 08:15 100 MLS/HR Lidocaine HCl (Buffered Lidocaine 1%) 3 ml 1X ONCE 01/13/19 11:00 01/13/19 11:01 DC 01/13/19 11:00 3 ML Lidocaine HCl (Xylocaine 2% Topical 5gm Tube) 5 amanda STK-MED ONCE 01/07/19 12:00 01/08/19 14:20 DC Linezolid/Dextrose 300 ml @ 300 mls/hr Q12HR 01/11/19 13:00 01/14/19 21:01 300 MLS/HR Lorazepam (Ativan Inj) 4 mg PRN Q1HR PRN 01/08/19 07:15 01/15/19 08:40 4 MG Metoclopramide HCl (Reglan Vial) 5 mg 1X ONCE 01/14/19 10:30 01/14/19 10:31 DC 01/14/19 10:51 5 MG Midazolam HCl 100 ml @ 5 mls/hr CONT PRN 01/08/19 11:15 01/15/19 08:42 12 MLS/HR Midazolam HCl (Versed) 5 mg 1X ONCE 01/08/19 09:45 01/08/19 09:46 DC 01/08/19 09:41 5 MG Morphine Sulfate (Morphine Sulfate) 2 mg PRN Q2HR PRN 01/08/19 09:15 Multi-Ingred Cream/Lotion/Oil/ Oint (Artificial Tears Eye Ointment) 1 amanda PRN Q1HR PRN 01/13/19 16:45 01/13/19 17:14 1 AMANDA Multivitamins 10 ml/Thiamine HCl 100 mg/Folic Acid 1 mg/Sodium Chloride 1,011.2 ml @ 100 mls/ hr DAILY 01/08/19 09:00 01/12/19 19:07 DC 01/12/19 10:29 100 MLS/HR Naloxone HCl (Narcan) 0.4 mg PRN Q2MIN PRN 01/08/19 09:00 Norepinephrine Bitartrate 250 ml @ 18.938 mls/ hr CONT PRN 01/09/19 01:45 01/15/19 08:41 19.5 MLS/HR Octreotide Acetate 500 mcg/ Sodium Chloride 101 ml @ 0 mls/hr CONT PRN 01/08/19 09:00 01/08/19 16:55 DC 01/08/19 13:56 10.1 MLS/HR Ondansetron HCl (Zofran) 4 mg PRN Q6HRS PRN 01/08/19 09:15 Pantoprazole Sodium (PROTONIX VIAL for IV PUSH) 40 mg DAILYAC 01/10/19 07:30 01/15/19 08:14 40 MG Pantoprazole Sodium 80 mg/ Sodium Chloride 100 ml @ 10 mls/hr Q10H 01/08/19 06:00 01/09/19 11:00 DC 01/09/19 02:00 10 MLS/HR Perflutren Protein Type A Microsphe (Optison) 0.66 mg 1X ONCE 01/11/19 13:30 01/11/19 13:31 DC Phytonadione (Vitamin K Ampule) 10 mg 1X ONCE 01/08/19 09:15 01/08/19 09:16 DC 01/08/19 09:56 10 MG Piperacillin Sod/ Tazobactam Sod (Zosyn Per Pharmacy) 1 each PRN DAILY PRN 01/07/19 21:00 Piperacillin Sod/ Tazobactam Sod 3.375 gm/Sodium Chloride 50 ml @ 100 mls/hr Q6HRS 01/07/19 22:00 01/15/19 05:38 100 MLS/HR Potassium Bicarbonate (Potassium Effervescent Tablet) 40 meq BIDWMEALS 01/10/19 09:00 01/11/19 09:20 DC 01/10/19 17:49 40 MEQ Potassium Chloride/Sodium Chloride 1,000 ml @ 75 mls/hr 1X ONCE 01/07/19 21:30 01/08/19 10:49 DC 01/07/19 21:16 75 MLS/HR Potassium Chloride (Klor-Con) 40 meq 1X ONCE 01/09/19 09:45 01/09/19 09:46 DC 01/09/19 11:34 40 MEQ Propofol 100 ml @ 1.524 mls/ hr CONT PRN 01/08/19 09:45 01/14/19 03:56 9.147 MLS/HR Sodium Acetate 40 meq/Potassium Acetate 30 meq/ Calcium Gluconate 10 meq/ Multivitamins 10 ml/Chromium/ Copper/Manganese/ Seleni/Zn 1 ml/ Total Parenteral Nutrition/Amino Acids/Dextrose/ Fat Emulsion Intravenous 1,512 ml @ 63 mls/hr TPN CONT 01/13/19 22:00 01/14/19 21:59 DC 01/13/19 21:54 63 MLS/HR Sodium Bicarbonate (Sodium Bicarb Adult 8.4% Syr) 100 meq 1X ONCE 01/15/19 08:30 01/15/19 08:31 DC 01/15/19 08:31 100 MEQ Sodium Chloride 30 meq/Sodium Acetate 40 meq/ Potassium Acetate 30 meq/Calcium Gluconate 10 meq/ Multivitamins 10 ml/Chromium/ Copper/Manganese/ Seleni/Zn 1 ml/ Total Parenteral Nutrition/Amino Acids/Dextrose/ Fat Emulsion Intravenous 1,512 ml @ 63 mls/hr TPN CONT 01/14/19 22:00 01/15/19 21:59 01/15/19 00:05 63 MLS/HR Succinylcholine Chloride (Anectine) 200 mg 1X ONCE 01/08/19 09:45 01/08/19 09:46 DC 01/08/19 09:41 200 MG Tramadol HCl (Ultram) 50 mg PRN Q6HRS PRN 01/08/19 09:15 Vancomycin HCl (Vanco Per Pharmacy) 1 each PRN DAILY PRN 01/07/19 21:00 01/08/19 06:39 DC 01/08/19 00:43 1 EACH Vancomycin HCl (Vancomycin Trough Level) 1 each 1X ONCE 01/09/19 09:30 01/09/19 09:31 Cancel Vancomycin HCl 1.5 gm/Sodium Chloride 500 ml @ 250 mls/hr Q12H 01/08/19 10:00 01/08/19 06:39 DC Vancomycin HCl 2 gm/Sodium Chloride 500 ml @ 250 mls/hr 1X ONCE 01/07/19 22:00 01/07/19 23:59 DC 01/07/19 22:11 250 MLS/HR Vecuronium [place] (Norcuron Bolus) 6 mg PRN Q4HRS PRN 01/08/19 12:00 01/14/19 21:50 6 MG Lab Laboratory Tests Test 01/14/19 09:09 01/14/19 12:31 01/14/19 16:58 01/15/19 05:30 Glucose (Fingerstick) 118 mg/dL (70-99) 124 mg/dL (70-99) 102 mg/dL (70-99) White Blood Count 44.5 x10^3/uL (4.0-11.0) Red Blood Count 2.89 x10^6/uL (4.30-5.70) Hemoglobin 9.5 g/dL (13.0-17.5) Hematocrit 30.1 % (39.0-53.0) Mean Corpuscular Volume 104 fL (79-100) Mean Corpuscular Hemoglobin 33 pg (25-35) Mean Corpuscular Hemoglobin Concent 32 g/dL (31-37) Red Cell Distribution Width 18.6 % (11.5-14.5) Platelet Count 171 x10^3/uL (140-400) Neutrophils (%) (Auto) 82 % (31-73) Lymphocytes (%) (Auto) 16 % (24-48) Monocytes (%) (Auto) 2 % (0-9) Eosinophils (%) (Auto) 0 % (0-3) Basophils (%) (Auto) 1 % (0-3) Neutrophils # (Auto) 36.4 x10^3/uL (1.8-7.7) Lymphocytes # (Auto) 6.9 x10^3/uL (1.0-4.8) Monocytes # (Auto) 0.8 x10^3/uL (0.0-1.1) Eosinophils # (Auto) 0.1 x10^3/uL (0.0-0.7) Basophils # (Auto) 0.3 x10^3/uL (0.0-0.2) Segmented Neutrophils % 78 % (35-66) Band Neutrophils % 7 % (0-9) Lymphocytes % 10 % (24-48) Monocytes % 3 % (0-10) Metamyelocytes % 1 % (0-0) Myelocytes % 1 % (0-0) Toxic Granulation Mod Toxic Vacuolation Present Platelet Estimate Adequate (ADEQUATE) Large Platelets Few Anisocytosis Slight Prothrombin Time 17.9 SEC (11.7-14.0) Prothromb Time International Ratio 1.5 (0.8-1.1) Sodium Level 135 mmol/L (136-145) Potassium Level 5.6 mmol/L (3.5-5.1) Chloride Level 99 mmol/L (98-107) Carbon Dioxide Level 23 mmol/L (21-32) Anion Gap 13 (6-14) Blood Urea Nitrogen 62 mg/dL (8-26) Creatinine 3.1 mg/dL (0.7-1.3) Estimated GFR (Cockcroft-Gault) 22.7 BUN/Creatinine Ratio 20 (6-20) Glucose Level 84 mg/dL (70-99) Calcium Level 7.1 mg/dL (8.5-10.1) Phosphorus Level 7.8 mg/dL (2.6-4.7) Magnesium Level 2.5 mg/dL (1.8-2.4) Total Bilirubin 11.0 mg/dL (0.2-1.0) Aspartate Amino Transf (AST/SGOT) 232 U/L (15-37) Alanine Aminotransferase (ALT/SGPT) 81 U/L (16-63) Alkaline Phosphatase 134 U/L (46-116) Total Protein 5.9 g/dL (6.4-8.2) Albumin 1.3 g/dL (3.4-5.0) Albumin/Globulin Ratio 0.3 (1.0-1.7) Test 01/15/19 08:00 01/15/19 08:03 O2 Saturation 84 % (92-99) Arterial Blood pH 7.14 (7.35-7.45) Arterial Blood pCO2 at Patient Temp 55 mmHg (35-46) Arterial Blood pO2 at Patient Temp 62 mmHg (85-108) Arterial Blood HCO3 18 mmol/L (21-28) Arterial Blood Base Excess -11 mmol/L (-3-3) FiO2 100 Glucose (Fingerstick) 78 mg/dL (70-99) Results All relevant outside records, renal labs, imaging studies, telemetry/EKG's were reviewed. CHRISTINA ALEXIS MD Jan 15, 2019 09:00
[2019-01-15 09:07] LABS: HEMOGLOBIN 8.9 g/dL (13.0-17.5); RED BLOOD COUNT 2.69 x10^6/uL (4.30-5.70); WHITE BLOOD COUNT 39.6 x10^3/uL (4.0-11.0)
--- NOTE | 2019-01-15 09:11 | PDOC ---
PROGRESS NOTES Chief Complaint Chief Complaint Acute respi falure, IPPV - 01.08, fluid overload? vs Atypical infection VS ARDS from aspiration HEMATEMESIS in A HEAVY DRINKER -Atrophic gastritis, ?MW tear BUT NO ACTIVE GIB - s.po STAT EGD 01/08 SEVERE PCM - albumin 1,7 -s/p albumin 01/09 - off pressors by 01/10 MInimal ascites - by US and CT HYPOTENSION, s/p, pressors standby, albumin, blood products if needed Coagulopathy - s/p vit K, HEPATIC enceph - ammonia midly high 60-90s - lactulose,N[place] HIGH residuals TRAMSAMINITIS with ELEVATED TB- per GI (TB 9), AST 300s-500s HEp C antibody positive LEft leg bruise, in this coagulopathic anemic pt sec to fall 2 weeks ago - monitor ELEVATED AGAP acidosis History of Present Illness History of Present Illness Mr Ballard is a 38 yo M w/ PMHx heavy ETOH abuse admitted with massive hematemesis on 01/07/19, was emergently intubated and admitted to ICU. S/p EGD, no active GIB, poss MW, atrophic gastritis, off SANDOSTATIN, CONT PPI gtt, SCDS. AMMONIA 60-90s - started lactulose, qdaily per GI, HEp c AB positive - negative PCR HIGH GASTRIC RESIDUALS 01/10/19, had to stop TF Intubated, sedated - needed to vecuronium per RN 01/12: PEEP 10, Fi O2 100% - was not ready to extubate weekend. CXR shows more edema, Echo shows no valvular or pressure abnormalities, off pressor since 12/20 2, UO ok but Cr up to 1.8 today. 01/13: Febrile 101.2F yesterday afternoon and 100.7F this morning. TF off /2 high residuals. KUB shows no obstruction but possible ileus. No BM. Bilirubin increasing to 11.3, Cr increasing to 2.2. Albumin decreased. More edematous today. BP lower. HD cath placed and HD session per nephro. 01/14: Cr worse, UOP minimal, though 1.9L logged. Bowel sounds decreased. Still on levophed. Still febrile 101.7F this morning. PEEP 10, FiO2 100%. D/w and mother bedside Afebrile past 24 hours, but overnight had significant O2 desaturations with repositioning. Still requiring levophed. PEEP 12, FiO2 100%. ABG 7.14/55/62. Renal and hepatic function not improved. WBC up to 44 today PLAN Lactulose TID. If residuals are still high will need to start enemas and 1x reglan Likely CRRT Cards, pulmo, GI, nephrology on case NO bleeding so far since admission Will need to d/w nephrology with Cr elevation and pulmonary edema, progostically this is a poor sign cc ill prog guarded, mentation might be a problem in extubating in this alcoholic CC time 47 minutes Vitals Vitals Vital Signs Date Time Temp Pulse Resp B/P (MAP) Pulse Ox O2 Delivery O2 Flow Rate FiO2 01/15/19 08:25 91 Ventilator 01/15/19 08:24 22 01/15/19 06:00 101 93/38 (56) 01/15/19 04:00 98.4 98.4 01/15/19 02:56 2.0 Physical Exam Physical Exam GENERAL: Orally intubated and sedated, mitts HEENT: Pupils equal, ETT and OGT Heart : S1 S2 tachy ABDOMEN: Obese, soft, hypoactive BS : - Pollard EXTREMITIES: Trace edema lower extremities bilaterally. LLE ecchymosis. SKIN: Warm to touch. No rash , bruising /subcut hematoma NEUROLOGIC: Sedated PIV s clean General: Other (tachypneic 30s) Heart: Regular rate, Normal S1, Normal S2 Lungs: Other (decrease bs) Abdomen: Soft, No tenderness, Other (pot belly possible fluid wave) Extremities: No clubbing, No cyanosis, Normal pulses, Other (left leg is br uised from a fall 2-3 weeks ago) Labs LABS Laboratory Tests Test 01/14/19 12:31 01/14/19 16:58 01/15/19 05:30 01/15/19 08:00 Glucose (Fingerstick) 124 mg/dL (70-99) 102 mg/dL (70-99) White Blood Count 44.5 x10^3/uL (4.0-11.0) Red Blood Count 2.89 x10^6/uL (4.30-5.70) Hemoglobin 9.5 g/dL (13.0-17.5) Hematocrit 30.1 % (39.0-53.0) Mean Corpuscular Volume 104 fL (79-100) Mean Corpuscular Hemoglobin 33 pg (25-35) Mean Corpuscular Hemoglobin Concent 32 g/dL (31-37) Red Cell Distribution Width 18.6 % (11.5-14.5) Platelet Count 171 x10^3/uL (140-400) Neutrophils (%) (Auto) 82 % (31-73) Lymphocytes (%) (Auto) 16 % (24-48) Monocytes (%) (Auto) 2 % (0-9) Eosinophils (%) (Auto) 0 % (0-3) Basophils (%) (Auto) 1 % (0-3) Neutrophils # (Auto) 36.4 x10^3/uL (1.8-7.7) Lymphocytes # (Auto) 6.9 x10^3/uL (1.0-4.8) Monocytes # (Auto) 0.8 x10^3/uL (0.0-1.1) Eosinophils # (Auto) 0.1 x10^3/uL (0.0-0.7) Basophils # (Auto) 0.3 x10^3/uL (0.0-0.2) Segmented Neutrophils % 78 % (35-66) Band Neutrophils % 7 % (0-9) Lymphocytes % 10 % (24-48) Monocytes % 3 % (0-10) Metamyelocytes % 1 % (0-0) Myelocytes % 1 % (0-0) Toxic Granulation Mod Toxic Vacuolation Present Platelet Estimate Adequate (ADEQUATE) Large Platelets Few Anisocytosis Slight Prothrombin Time 17.9 SEC (11.7-14.0) Prothromb Time International Ratio 1.5 (0.8-1.1) Sodium Level 135 mmol/L (136-145) Potassium Level 5.6 mmol/L (3.5-5.1) Chloride Level 99 mmol/L (98-107) Carbon Dioxide Level 23 mmol/L (21-32) Anion Gap 13 (6-14) Blood Urea Nitrogen 62 mg/dL (8-26) Creatinine 3.1 mg/dL (0.7-1.3) Estimated GFR (Cockcroft-Gault) 22.7 BUN/Creatinine Ratio 20 (6-20) Glucose Level 84 mg/dL (70-99) Calcium Level 7.1 mg/dL (8.5-10.1) Phosphorus Level 7.8 mg/dL (2.6-4.7) Magnesium Level 2.5 mg/dL (1.8-2.4) Total Bilirubin 11.0 mg/dL (0.2-1.0) Aspartate Amino Transf (AST/SGOT) 232 U/L (15-37) Alanine Aminotransferase (ALT/SGPT) 81 U/L (16-63) Alkaline Phosphatase 134 U/L (46-116) Total Protein 5.9 g/dL (6.4-8.2) Albumin 1.3 g/dL (3.4-5.0) Albumin/Globulin Ratio 0.3 (1.0-1.7) O2 Saturation 84 % (92-99) Arterial Blood pH 7.14 (7.35-7.45) Arterial Blood pCO2 at Patient Temp 55 mmHg (35-46) Arterial Blood pO2 at Patient Temp 62 mmHg (85-108) Arterial Blood HCO3 18 mmol/L (21-28) Arterial Blood Base Excess -11 mmol/L (-3-3) FiO2 100 Test 01/15/19 08:03 Glucose (Fingerstick) 78 mg/dL (70-99) Assessment and Plan Assessmemt and Plan Problems Medical Problems: (1) Acute hepatic encephalopathy Status: Acute (2) Acute upper GI bleed Status: Acute (3) Ascites Status: Acute (4) Hypokalemia Status: Acute (5) Multiple organ system failure Status: Acute (6) Severe sepsis with acute organ dysfunction Status: Acute Comment Review of Relevant I have reviewed the following items karen (where applicable) has been applied. Labs Laboratory Tests Test 01/13/19 11:50 01/13/19 12:20 01/13/19 17:17 01/14/19 05:25 Hepatitis B Surface Antibody, Quant <3.1 mIU/mL (Immunity>9.9) Glucose (Fingerstick) 99 mg/dL (70-99) 78 mg/dL (70-99) White Blood Count 26.9 x10^3/uL (4.0-11.0) Red Blood Count 2.53 x10^6/uL (4.30-5.70) Hemoglobin 8.3 g/dL (13.0-17.5) Hematocrit 25.2 % (39.0-53.0) Mean Corpuscular Volume 100 fL (79-100) Mean Corpuscular Hemoglobin 33 pg (25-35) Mean Corpuscular Hemoglobin Concent 33 g/dL (31-37) Red Cell Distribution Width 17.5 % (11.5-14.5) Platelet Count 156 x10^3/uL (140-400) Neutrophils (%) (Auto) 65 % (31-73) Lymphocytes (%) (Auto) 30 % (24-48) Monocytes (%) (Auto) 3 % (0-9) Eosinophils (%) (Auto) 1 % (0-3) Basophils (%) (Auto) 1 % (0-3) Neutrophils # (Auto) 17.5 x10^3/uL (1.8-7.7) Lymphocytes # (Auto) 8.1 x10^3/uL (1.0-4.8) Monocytes # (Auto) 0.9 x10^3/uL (0.0-1.1) Eosinophils # (Auto) 0.2 x10^3/uL (0.0-0.7) Basophils # (Auto) 0.4 x10^3/uL (0.0-0.2) Segmented Neutrophils % 73 % (35-66) Band Neutrophils % 10 % (0-9) Lymphocytes % 14 % (24-48) Monocytes % 1 % (0-10) Eosinophils % 2 % (0-5) Nucleated Red Blood Cells 1 Toxic Granulation Mod Toxic Vacuolation Slight Platelet Estimate Adequate (ADEQUATE) Polychromasia Slight Anisocytosis Slight Prothrombin Time 16.7 SEC (11.7-14.0) Prothromb Time International Ratio 1.4 (0.8-1.1) Sodium Level 141 mmol/L (136-145) Potassium Level 4.3 mmol/L (3.5-5.1) Chloride Level 104 mmol/L (98-107) Carbon Dioxide Level 23 mmol/L (21-32) Anion Gap 14 (6-14) Blood Urea Nitrogen 66 mg/dL (8-26) Creatinine 2.5 mg/dL (0.7-1.3) Estimated GFR (Cockcroft-Gault) 29.0 BUN/Creatinine Ratio 26 (6-20) Glucose Level 106 mg/dL (70-99) Calcium Level 7.2 mg/dL (8.5-10.1) Phosphorus Level 3.9 mg/dL (2.6-4.7) Magnesium Level 2.7 mg/dL (1.8-2.4) Total Bilirubin 10.2 mg/dL (0.2-1.0) Aspartate Amino Transf (AST/SGOT) 253 U/L (15-37) Alanine Aminotransferase (ALT/SGPT) 87 U/L (16-63) Alkaline Phosphatase 109 U/L (46-116) Total Protein 5.7 g/dL (6.4-8.2) Albumin 1.4 g/dL (3.4-5.0) Albumin/Globulin Ratio 0.3 (1.0-1.7) Triglycerides Level 281 mg/dL (0-150) Mycoplasma Serology (LAB) Positive (NEGATIVE) Test 01/14/19 08:30 01/14/19 09:09 01/14/19 12:31 01/14/19 16:58 O2 Saturation 91 % (92-99) Arterial Blood pH 7.38 (7.35-7.45) Arterial Blood pCO2 at Patient Temp 40 mmHg (35-46) Arterial Blood pO2 at Patient Temp 68 mmHg (85-108) Arterial Blood HCO3 23 mmol/L (21-28) Arterial Blood Base Excess -2 mmol/L (-3-3) FiO2 100 Glucose (Fingerstick) 118 mg/dL (70-99) 124 mg/dL (70-99) 102 mg/dL (70-99) Test 01/15/19 05:30 01/15/19 08:00 01/15/19 08:03 White Blood Count 44.5 x10^3/uL (4.0-11.0) Red Blood Count 2.89 x10^6/uL (4.30-5.70) Hemoglobin 9.5 g/dL (13.0-17.5) Hematocrit 30.1 % (39.0-53.0) Mean Corpuscular Volume 104 fL (79-100) Mean Corpuscular Hemoglobin 33 pg (25-35) Mean Corpuscular Hemoglobin Concent 32 g/dL (31-37) Red Cell Distribution Width 18.6 % (11.5-14.5) Platelet Count 171 x10^3/uL (140-400) Neutrophils (%) (Auto) 82 % (31-73) Lymphocytes (%) (Auto) 16 % (24-48) Monocytes (%) (Auto) 2 % (0-9) Eosinophils (%) (Auto) 0 % (0-3) Basophils (%) (Auto) 1 % (0-3) Neutrophils # (Auto) 36.4 x10^3/uL (1.8-7.7) Lymphocytes # (Auto) 6.9 x10^3/uL (1.0-4.8) Monocytes # (Auto) 0.8 x10^3/uL (0.0-1.1) Eosinophils # (Auto) 0.1 x10^3/uL (0.0-0.7) Basophils # (Auto) 0.3 x10^3/uL (0.0-0.2) Segmented Neutrophils % 78 % (35-66) Band Neutrophils % 7 % (0-9) Lymphocytes % 10 % (24-48) Monocytes % 3 % (0-10) Metamyelocytes % 1 % (0-0) Myelocytes % 1 % (0-0) Toxic Granulation Mod Toxic Vacuolation Present Platelet Estimate Adequate (ADEQUATE) Large Platelets Few Anisocytosis Slight Prothrombin Time 17.9 SEC (11.7-14.0) Prothromb Time International Ratio 1.5 (0.8-1.1) Sodium Level 135 mmol/L (136-145) Potassium Level 5.6 mmol/L (3.5-5.1) Chloride Level 99 mmol/L (98-107) Carbon Dioxide Level 23 mmol/L (21-32) Anion Gap 13 (6-14) Blood Urea Nitrogen 62 mg/dL (8-26) Creatinine 3.1 mg/dL (0.7-1.3) Estimated GFR (Cockcroft-Gault) 22.7 BUN/Creatinine Ratio 20 (6-20) Glucose Level 84 mg/dL (70-99) Calcium Level 7.1 mg/dL (8.5-10.1) Phosphorus Level 7.8 mg/dL (2.6-4.7) Magnesium Level 2.5 mg/dL (1.8-2.4) Total Bilirubin 11.0 mg/dL (0.2-1.0) Aspartate Amino Transf (AST/SGOT) 232 U/L (15-37) Alanine Aminotransferase (ALT/SGPT) 81 U/L (16-63) Alkaline Phosphatase 134 U/L (46-116) Total Protein 5.9 g/dL (6.4-8.2) Albumin 1.3 g/dL (3.4-5.0) Albumin/Globulin Ratio 0.3 (1.0-1.7) O2 Saturation 84 % (92-99) Arterial Blood pH 7.14 (7.35-7.45) Arterial Blood pCO2 at Patient Temp 55 mmHg (35-46) Arterial Blood pO2 at Patient Temp 62 mmHg (85-108) Arterial Blood HCO3 18 mmol/L (21-28) Arterial Blood Base Excess -11 mmol/L (-3-3) FiO2 100 Glucose (Fingerstick) 78 mg/dL (70-99) Laboratory Tests Test 01/14/19 12:31 01/14/19 16:58 01/15/19 05:30 01/15/19 08:00 Glucose (Fingerstick) 124 mg/dL (70-99) 102 mg/dL (70-99) White Blood Count 44.5 x10^3/uL (4.0-11.0) Red Blood Count 2.89 x10^6/uL (4.30-5.70) Hemoglobin 9.5 g/dL (13.0-17.5) Hematocrit 30.1 % (39.0-53.0) Mean Corpuscular Volume 104 fL (79-100) Mean Corpuscular Hemoglobin 33 pg (25-35) Mean Corpuscular Hemoglobin Concent 32 g/dL (31-37) Red Cell Distribution Width 18.6 % (11.5-14.5) Platelet Count 171 x10^3/uL (140-400) Neutrophils (%) (Auto) 82 % (31-73) Lymphocytes (%) (Auto) 16 % (24-48) Monocytes (%) (Auto) 2 % (0-9) Eosinophils (%) (Auto) 0 % (0-3) Basophils (%) (Auto) 1 % (0-3) Neutrophils # (Auto) 36.4 x10^3/uL (1.8-7.7) Lymphocytes # (Auto) 6.9 x10^3/uL (1.0-4.8) Monocytes # (Auto) 0.8 x10^3/uL (0.0-1.1) Eosinophils # (Auto) 0.1 x10^3/uL (0.0-0.7) Basophils # (Auto) 0.3 x10^3/uL (0.0-0.2) Segmented Neutrophils % 78 % (35-66) Band Neutrophils % 7 % (0-9) Lymphocytes % 10 % (24-48) Monocytes % 3 % (0-10) Metamyelocytes % 1 % (0-0) Myelocytes % 1 % (0-0) Toxic Granulation Mod Toxic Vacuolation Present Platelet Estimate Adequate (ADEQUATE) Large Platelets Few Anisocytosis Slight Prothrombin Time 17.9 SEC (11.7-14.0) Prothromb Time International Ratio 1.5 (0.8-1.1) Sodium Level 135 mmol/L (136-145) Potassium Level 5.6 mmol/L (3.5-5.1) Chloride Level 99 mmol/L (98-107) Carbon Dioxide Level 23 mmol/L (21-32) Anion Gap 13 (6-14) Blood Urea Nitrogen 62 mg/dL (8-26) Creatinine 3.1 mg/dL (0.7-1.3) Estimated GFR (Cockcroft-Gault) 22.7 BUN/Creatinine Ratio 20 (6-20) Glucose Level 84 mg/dL (70-99) Calcium Level 7.1 mg/dL (8.5-10.1) Phosphorus Level 7.8 mg/dL (2.6-4.7) Magnesium Level 2.5 mg/dL (1.8-2.4) Total Bilirubin 11.0 mg/dL (0.2-1.0) Aspartate Amino Transf (AST/SGOT) 232 U/L (15-37) Alanine Aminotransferase (ALT/SGPT) 81 U/L (16-63) Alkaline Phosphatase 134 U/L (46-116) Total Protein 5.9 g/dL (6.4-8.2) Albumin 1.3 g/dL (3.4-5.0) Albumin/Globulin Ratio 0.3 (1.0-1.7) O2 Saturation 84 % (92-99) Arterial Blood pH 7.14 (7.35-7.45) Arterial Blood pCO2 at Patient Temp 55 mmHg (35-46) Arterial Blood pO2 at Patient Temp 62 mmHg (85-108) Arterial Blood HCO3 18 mmol/L (21-28) Arterial Blood Base Excess -11 mmol/L (-3-3) FiO2 100 Test 01/15/19 08:03 Glucose (Fingerstick) 78 mg/dL (70-99) Microbiology 01/08/19 Blood Culture - Final, Complete NO GROWTH AFTER 5 DAYS 01/08/19 Urine Culture - Final, Complete 01/08/19 Urine Culture Result 1 (ELMA) - Final, Complete Medications Current Medications Sodium Chloride 1,000 ml @ 1,000 mls/hr 1X ONCE IV Last administered on 01/07/19at 19:27; Start 01/07/19 at 19:30; Stop 01/07/19 at 20:29; Status DC Ondansetron HCl (Zofran) 4 mg 1X ONCE IV Last administered on 01/07/19at 19:28; Start 01/07/19 at 19:30; Stop 01/07/19 at 19:31; Status DC Pantoprazole Sodium (PROTONIX VIAL for IV PUSH) 80 mg 1X ONCE IVP Last administered on 01/07/19at 19:50; Start 01/07/19 at 20:00; Stop 01/07/19 at 20:01; Status DC Pantoprazole Sodium 80 mg/ Sodium Chloride 100 ml @ 10 mls/hr 1X ONCE IV Last administered on 01/07/19at 20:00; Start 01/07/19 at 20:00; Stop 01/08/19 at 05:59; Status DC Sodium Chloride 1,000 ml @ 1,000 mls/hr 1X ONCE IV Last administered on 01/07/19at 22:12; Start 01/07/19 at 21:00; Stop 01/07/19 at 21:59; Status DC Sodium Chloride 1,000 ml @ 1,000 mls/hr 1X ONCE IV Last administered on 01/07/19at 20:40; Start 01/07/19 at 20:45; Stop 01/07/19 at 21:44; Status DC Potassium Chloride/Sodium Chloride 1,000 ml @ 75 mls/hr 1X ONCE IV Last administered on 01/07/19at 21:16; Start 01/07/19 at 21:30; Stop 01/08/19 at 10:49; Status DC Vancomycin HCl (Vanco Per Pharmacy) 1 each PRN DAILY PRN MC SEE COMMENTS Last administered on 01/08/19at 00:43; Start 01/07/19 at 21:00; Stop 01/08/19 at 06:39; Status DC Piperacillin Sod/ Tazobactam Sod (Zosyn Per Pharmacy) 1 each PRN DAILY PRN MC SEE COMMENTS; Start 01/07/19 at 21:00 Piperacillin Sod/ Tazobactam Sod 3.375 gm/Sodium Chloride 50 ml @ 100 mls/hr Q6HRS IV Last administered on 01/15/19at 05:38; Start 01/07/19 at 22:00 Vancomycin HCl 2 gm/Sodium Chloride 500 ml @ 250 mls/hr 1X ONCE IV Last administered on 01/07/19at 22:11; Start 01/07/19 at 22:00; Stop 01/07/19 at 23:59; Status DC Lorazepam (Ativan Inj) 1 mg 1X ONCE IV Last administered on 01/07/19at 23:22; Start 01/07/19 at 23:30; Stop 01/07/19 at 23:31; Status DC Lorazepam (Ativan Inj) 2 mg STK-MED ONCE .ROUTE ; Start 01/07/19 at 23:20; Stop 01/07/19 at 23:21; Status DC Vancomycin HCl 1.5 gm/Sodium Chloride 500 ml @ 250 mls/hr Q12H IV ; Start 01/08/19 at 10:00; Stop 01/08/19 at 06:39; Status DC Vancomycin HCl (Vancomycin Trough Level) 1 each 1X ONCE MC ; Start 01/09/19 at 09:30; Stop 01/09/19 at 09:31; Status Cancel Ondansetron HCl (Zofran) 4 mg PRN Q6HRS PRN IVP NAUSEA/VOMITING; Start 01/08/19 at 04:00; Status Cancel Pantoprazole Sodium 80 mg/ Sodium Chloride 100 ml @ 10 mls/hr Q10H IV Last administered on 01/09/19at 02:00; Start 01/08/19 at 06:00; Stop 01/09/19 at 11:00; Status DC Multivitamins 10 ml/Thiamine HCl 100 mg/Folic Acid 1 mg/Sodium Chloride 1,011.2 ml @ 100 mls/ hr DAILY IV Last administered on 01/12/19at 10:29; Start 01/08/19 at 09:00; Stop 01/12/19 at 19:07; Status DC Lorazepam (Ativan Inj) 2 mg PRN Q1HR PRN IV For CIWA 8-14 Last administered on 01/14/19at 21:01; Start 01/08/19 at 07:15 Lorazepam (Ativan Inj) 4 mg PRN Q1HR PRN IV For CIWA 15 or greater Last administered on 01/15/19at 08:40; Start 01/08/19 at 07:15 Haloperidol Lactate (Haldol Inj) 5 mg PRN Q4HRS PRN IVP Hallucinatns,Confusn,Delirium; Start 01/08/19 at 07:15 Diphenhydramine HCl (Benadryl) 25 mg PRN Q15MIN PRN IVP EPS symptoms 2'Haldol admin; Start 01/08/19 at 07:15 Clonidine HCl (Catapres) 0.1 mg PRN Q1HR PRN PO SBP > 180 or DBP > 100, MRX3; Start 01/08/19 at 07:15 Sodium Bicarbonate (Sodium Bicarb Adult 8.4% Syr) 50 meq 1X ONCE IV Last administered on 01/08/19at 08:04; Start 01/08/19 at 08:00; Stop 01/08/19 at 08:01; Status DC Propofol 100 ml @ As Directed STK-MED ONCE IV ; Start 01/08/19 at 08:19; Stop 01/08/19 at 08:19; Status DC Succinylcholine Chloride (Anectine) 200 mg STK-MED ONCE .ROUTE ; Start 01/08/19 at 08:19; Stop 01/08/19 at 08:19; Status DC Propofol 100 ml @ As Directed STK-MED ONCE IV ; Start 01/08/19 at 08:29; Stop 01/08/19 at 08:30; Status DC Fentanyl Citrate 30 ml @ 0 mls/hr CONT PRN PRN IV PER PROTOCOL Last administered on 01/15/19at 08:24; Start 01/08/19 at 09:00 Naloxone HCl (Narcan) 0.4 mg PRN Q2MIN PRN IV SEE INSTRUCTIONS; Start 01/08/19 at 09:00 Sodium Chloride 1,000 ml @ 25 mls/hr Q24H IV Last administered on 01/14/19at 08:54; Start 01/08/19 at 08:54 Fentanyl Citrate (Fentanyl 2ml Vial) 100 mcg STK-MED ONCE .ROUTE ; Start 01/08/19 at 08:55; Stop 01/08/19 at 08:55; Status DC Octreotide Acetate 500 mcg/ Sodium Chloride 101 ml @ 0 mls/hr CONT PRN IV SEE I/O RECORD Last administered on 01/08/19at 13:56; Start 01/08/19 at 09:00; Stop 01/08/19 at 16:55; Status DC Phytonadione (Vitamin K Ampule) 10 mg 1X ONCE SQ Last administered on 01/08/19at 09:56; Start 01/08/19 at 09:15; Stop 01/08/19 at 09:16; Status DC Metoclopramide HCl (Reglan Vial) 10 mg 1X ONCE IVP Last administered on 01/08/19at 14:36; Start 01/08/19 at 11:00; Stop 01/08/19 at 11:01; Status DC Midazolam HCl (Versed) 5 mg STK-MED ONCE .ROUTE ; Start 01/08/19 at 09:00; Stop 01/08/19 at 09:01; Status DC Acetaminophen (Tylenol) 500 mg PRN Q6HRS PRN PO MILD PAIN / TEMP Last administered on 01/11/19at 17:46; Start 01/08/19 at 09:15; Stop 01/13/19 at 09:11; Status DC Tramadol HCl (Ultram) 50 mg PRN Q6HRS PRN PO PAIN MODERATE; Start 01/08/19 at 09:15 Morphine Sulfate (Morphine Sulfate) 2 mg PRN Q2HR PRN IV PAIN; Start 01/08/19 at 09:15 Ondansetron HCl (Zofran) 4 mg PRN Q6HRS PRN IVP NAUSEA/VOMITING, 1ST CHOICE; S tart 01/08/19 at 09:15 Fentanyl Citrate (Fentanyl 2ml Vial) 100 mcg 1X ONCE IVP Last administered on 01/08/19at 09:42; Start 01/08/19 at 09:45; Stop 01/08/19 at 09:46; Status DC Midazolam HCl (Versed) 5 mg 1X ONCE IV Last administered on 01/08/19 09:41; Start 01/08/19 at 09:45; Stop 01/08/19 at 09:46; Status DC Succinylcholine Chloride (Anectine) 200 mg 1X ONCE IV Last administered on 01/08/19 09:41; Start 01/08/19 at 09:45; Stop 01/08/19 at 09:46; Status DC Propofol 100 ml @ 1.524 mls/ hr CONT PRN IV SEE I/O RECORD Last administered on 01/14/19 03:56; Start 01/08/19 at 09:45 Midazolam HCl 100 ml @ 5 mls/hr CONT PRN IV SEE I/O RECORD Last administered on 01/15/19 08:42; Start 01/08/19 at 11:15 Vecuronium [place] (Norcuron Bolus) 6 mg PRN Q4HRS PRN IV VENT ASYNCHRONY Last administered on 01/15/19 08:54; Start 01/08/19 at 12:00 Benzocaine (Hurricaine One) 2 spray STK-MED ONCE .ROUTE ; Start 01/07/19 at 12:00; Stop 01/08/19 at 14:20; Status DC Lidocaine HCl (Xylocaine 2% Topical 5gm Tube) 5 amanda STK-MED ONCE TP ; Start 01/07/19 at 12:00; Stop 01/08/19 at 14:20; Status DC Lactobacillus Rhamnosus (Culturelle) 1 cap BID PO ; Start 01/08/19 at 21:00; Stop 01/09/19 at 09:29; Status DC Acetaminophen (Tylenol Supp) 650 mg PRN Q6HRS PRN [place] MILD PAIN / TEMP Last administered on 01/09/19at 23:44; Start 01/08/19 at 18:15 Norepinephrine Bitartrate 250 ml @ 18.938 mls/ hr CONT PRN IV SEE I/O RECORD Last administered on 01/15/19 08:41; Start 01/09/19 at 01:45 Potassium Chloride (Klor-Con) 40 meq 1X ONCE PO Last administered on 01/09/19 11:34; Start 01/09/19 at 09:45; Stop 01/09/19 at 09:46; Status DC Metoclopramide HCl (Reglan Vial) 10 mg PRN Q6HRS PRN IVP NAUSEA/VOMITING, 2ND CHOICE Last administered on 01/14/19at 21:01; Start 01/09/19 at 10:15 Albumin Human 100 ml @ 100 mls/hr 1X ONCE IV Last administered on 01/09/19at 10:49; Start 01/09/19 at 10:15; Stop 01/09/19 at 11:14; Status DC Lactulose (LACTULOSE 300ML for RECTAL) 200 gm Q6HRS [place] ; Start 01/09/19 at 12:00; Stop 01/09/19 at 11:04; Status DC Insulin Human Lispro (HumaLOG) 0-9 UNITS TIDWMEALS SQ ; Start 01/09/19 at 12:00 Dextrose (Dextrose 50%-Water Syringe) 12.5 gm PRN Q15MIN PRN IV SEE COMMENTS; Start 01/09/19 at 10:30 Fentanyl Citrate (Fentanyl 600 Mcg/30 ml INTEGRATION ANALYST) 600 mcg STK-MED ONCE IV ; Start 01/08/19 at 15:25; Stop 01/09/19 at 10:27; Status DC Pantoprazole Sodium (PROTONIX VIAL for IV PUSH) 40 mg DAILYAC IVP Last administered on 01/15/19at 08:14; Start 01/10/19 at 07:30 Lactulose (Lactulose) 20 gm DAILY PO Last administered on 01/12/19at 08:24; Start 01/09/19 at 11:30; Stop 01/12/19 at 10:12; Status DC Potassium Bicarbonate (Potassium Effervescent Tablet) 40 meq BIDWMEALS FT Last administered on 01/10/19at 17:49; Start 01/10/19 at 09:00; Stop 01/11/19 at 09:20; Status DC Linezolid/Dextrose 300 ml @ 300 mls/hr Q12HR IV Last administered on 01/14/19at 21:01; Start 01/11/19 at 13:00 Perflutren Protein Type A Microsphe (Optison) 0.66 mg 1X ONCE IV ; Start 01/11/19 at 13:30; Stop 01/11/19 at 13:31; Status DC Albumin Human 100 ml @ 100 mls/hr 1X ONCE IV Last administered on 01/12/19at 08:25; Start 01/12/19 at 07:45; Stop 01/12/19 at 08:44; Status DC Lactulose (Lactulose) 20 gm PRN DAILY PRN PO constipation; Start 01/12/19 at 10:15; Stop 01/13/19 at 09:11; Status DC Acetaminophen (Tylenol) 650 mg PRN Q6HRS PRN PEG MILD PAIN / TEMP Last administered on 01/14/19at 09:11; Start 01/12/19 at 16:30 Lactulose (Lactulose) 20 gm TID PO Last administered on 01/14/19at 21:01; Start 01/13/19 at 10:00 Albumin Human 500 ml @ 125 mls/hr 1X ONCE IV Last administered on 01/13/19at 09:40; Start 01/13/19 at 10:00; Stop 01/13/19 at 13:59; Status DC Bisacodyl (Dulcolax Supp) 10 mg 1X ONCE [place] Last administered on 01/13/19at 10:14; Start 01/13/19 at 11:00; Stop 01/13/19 at 11:01; Status DC Lidocaine HCl (Buffered Lidocaine 1%) 3 ml 1X ONCE INJ Last administered on 03/15/18at 11:00; Start 01/13/19 at 11:00; Stop 01/13/19 at 11:01; Status DC Heparin Sodium (Porcine) (Heparin Sodium) 10,000 unit STK-MED ONCE .ROUTE ; Start 01/13/19 at 10:59; Stop 01/13/19 at 11:00; Status DC Darbepoetin Giorgi (ARANESP for DIALYSIS PTS) 60 mcg WEEKLYHS SQ Last administered on 01/13/19at 20:46; Start 01/13/19 at 21:00 Info (Tpn Per Pharmacy) 1 each PRN DAILY PRN MC SEE COMMENTS Last administered on 01/14/19at 13:18; Start 01/13/19 at 11:15 Sodium Chloride 1,000 ml @ 1,000 mls/hr Q1H PRN IV hypotension; Start 01/13/19 at 11:30; Stop 01/13/19 at 19:00; Status DC Albumin Human 200 ml @ 200 mls/hr 1X PRN PRN IV Hypotension; Start 01/13/19 at 11:30; Stop 01/13/19 at 17:29; Status DC Sodium Chloride 1,000 ml @ 400 mls/hr Q2H30M PRN IV PATENCY; Start 01/13/19 at 11:30; Stop 01/13/19 at 19:00; Status DC Info (PHARMACY MONITORING -- do not chart) 1 each PRN DAILY PRN MC SEE COMMENTS; Start 01/13/19 at 11:30 Info (PHARMACY MONITORING -- do not chart) 1 each PRN DAILY PRN MC SEE COMMENTS; Start 01/13/19 at 11:30; Status UNV Sodium Acetate 40 meq/Potassium Acetate 30 meq/ Calcium Gluconate 10 meq/ Mult ivitamins 10 ml/Chromium/ Copper/Manganese/ Seleni/Zn 1 ml/ Total Parenteral Nutrition/Amino Acids/Dextrose/ Fat Emulsion Intravenous 1,512 ml @ 63 mls/hr TPN CONT IV Last administered on 01/13/19at 21:54; Start 01/13/19 at 22:00; Stop 01/14/19 at 21:59; Status DC Multi-Ingred Cream/Lotion/Oil/ Oint (Artificial Tears Eye Ointment) 1 amanda PRN Q1HR PRN OU DRY EYE Last administered on 01/13/19at 17:14; Start 01/13/19 at 16:45 Docusate Sodium (Enemeez) 283 mg 1X ONCE [place] Last administered on 01/13/19at 17:14; Start 01/13/19 at 16:45; Stop 01/13/19 at 16:47; Status DC Levofloxacin/ Dextrose 100 ml @ 100 mls/hr Q24H IV Last administered on 01/15/19at 08:15; Start 01/14/19 at 09:00 Metoclopramide HCl (Reglan Vial) 5 mg 1X ONCE IVP Last administered on 01/14/19at 10:51; Start 01/14/19 at 10:30; Stop 01/14/19 at 10:31; Status DC Dexmedetomidine HCl 400 mcg/ Sodium Chloride 100 ml @ 0 mls/hr CONT PRN IV AGITATION Last administered on 01/15/19at 08:34; Start 01/14/19 at 11:30 Sodium Chloride 1,000 ml @ 1,000 mls/hr Q1H PRN IV hypotension; Start 01/14/19 at 11:26; Stop 01/14/19 at 17:25; Status DC Albumin Human 200 ml @ 200 mls/hr 1X PRN PRN IV Hypotension; Start 01/14/19 at 11:30; Stop 01/14/19 at 17:29; Status DC Sodium Chloride 1,000 ml @ 400 mls/hr Q2H30M PRN IV PATENCY; Start 01/14/19 at 11:26; Stop 01/14/19 at 23:25; Status DC Info (PHARMACY MONITORING -- do not chart) 1 each PRN DAILY PRN MC SEE COMMENTS; Start 01/14/19 at 11:30; Status UNV Info (PHARMACY MONITORING -- do not chart) 1 each PRN DAILY PRN MC SEE COMMENTS; Start 01/14/19 at 11:30; Status UNV Sodium Chloride 30 meq/Sodium Acetate 40 meq/ Potassium Acetate 30 meq/Calcium Gluconate 10 meq/ Multivitamins 10 ml/Chromium/ Copper/Manganese/ Seleni/Zn 1 ml/ Total Parenteral Nutrition/Amino Acids/Dextrose/ Fat Emulsion Intravenous 1,512 ml @ 63 mls/hr TPN CONT IV Last administered on 01/15/19at 00:05; Start 01/14/19 at 22:00; Stop 01/15/19 at 21:59 Artificial Tears (Artificial Tears) 1 drop Q4H PRN OU DRY EYE Last administered on 01/14/19at 16:43; Start 01/14/19 at 15:30 Sodium Bicarbonate (Sodium Bicarb Adult 8.4% Syr) 50 meq STK-MED ONCE .ROUTE ; Start 01/15/19 at 08:25; Stop 01/15/19 at 08:25; Status DC Sodium Bicarbonate (Sodium Bicarb Adult 8.4% Syr) 100 meq 1X ONCE IV Last administered on 01/15/19at 08:31; Start 01/15/19 at 08:30; Stop 01/15/19 at 08:31; Status DC Vitals/I & O Vital Sign - Last 24 Hours 01/14/19 01/14/19 01/14/19 01/14/19 09:19 10:00 11:00 11:11 Pulse 120 116 Resp 25 33 20 B/P (MAP) 105/43 (63) 106/41 (62) Pulse Ox 96 97 97 100 O2 Delivery Ventilator Ventilator Ventilator Ventilator 01/14/19 01/14/19 01/14/19 01/14/19 12:00 12:00 13:00 13:50 Temp 99.2 99.2 Pulse 104 101 Resp 25 26 B/P (MAP) 100/40 (60) 97/45 (62) Pulse Ox 95 97 98 O2 Delivery Mechanical Ventilator Ventilator Ventilator Ventilator 01/14/19 01/14/19 01/14/19 01/14/19 14:00 14:46 15:00 15:07 Pulse 100 96 Resp 24 B/P (MAP) 105/46 (65) 105/51 (69) Pulse Ox 97 97 97 97 O2 Delivery Ventilator BiPAP/CPAP Ventilator Ventilator 01/14/19 01/14/19 01/14/19 01/14/19 15:56 16:00 16:00 16:15 Pulse 98 96 Resp 30 30 B/P (MAP) 83/40 (54) 105/40 (61) Pulse Ox 94 93 94 O2 Delivery Ventilator Mechanical Ventilator Ventilator Ventilator 01/14/19 01/14/19 01/14/19 01/14/19 17:00 17:02 17:32 18:08 Temp 98.7 98.7 Pulse 98 98 100 Resp 30 32 B/P (MAP) 99/45 (63) 86/41 (56) 95/51 (66) Pulse Ox 96 96 94 97 O2 Delivery Ventilator Ventilator Ventilator Ventilator 01/14/19 01/14/19 01/14/19 01/14/19 19:00 20:00 20:00 20:01 Temp 98.7 98.7 Pulse 101 99 Resp 24 24 B/P (MAP) 115/47 (69) 119/45 (69) Pulse Ox 96 96 99 O2 Delivery Ventilator Ventilator Mechanical Ventilator Ventilator 01/14/19 01/14/19 01/14/19 01/14/19 20:43 21:00 21:13 22:00 Pulse 99 98 Resp 19 18 B/P (MAP) 114/42 (66) 95/43 (60) Pulse Ox 99 96 76 78 O2 Delivery Ventilator Ventilator O2 Flow Rate 2.0 2.0 01/14/19 01/14/19 01/14/19 01/15/19 23:00 23:22 23:59 00:00 Temp 98.8 98.8 Pulse 98 98 Resp 18 18 B/P (MAP) 103/50 (67) 97/46 (63) Pulse Ox 76 66 86 O2 Delivery Ventilator Ventilator Mechanical Ventilator Ventilator 01/15/19 01/15/19 01/15/19 01/15/19 01:00 01:45 02:00 02:26 Pulse 103 106 Resp 22 B/P (MAP) 109/52 (71) 93/44 (60) Pulse Ox 84 84 85 84 O2 Delivery Ventilator Ventilator Ventilator O2 Flow Rate 2.0 01/15/19 01/15/19 01/15/19 01/15/19 02:56 03:00 03:32 04:00 Temp 98.4 98.4 Pulse 107 106 Resp 21 B/P (MAP) 96/46 (63) 96/44 (61) Pulse Ox 87 87 87 87 O2 Delivery Ventilator Ventilator Ventilator Ventilator O2 Flow Rate 2.0 01/15/19 01/15/19 01/15/19 01/15/19 04:00 05:00 05:44 06:00 Pulse 107 101 Resp B/P (MAP) 103/50 (67) 93/38 (56) Pulse Ox 87 91 87 O2 Delivery Mechanical Ventilator Ventilator Ventilator Ventilator 01/15/19 01/15/19 01/15/19 07:50 08:24 08:25 Resp 22 Pulse Ox 90 90 91 O2 Delivery Ventilator Ventilator Ventilator Intake and Output 01/14/19 01/14/19 01/15/19 15:00 23:00 07:00 Intake Total 400 ml 1896.57 ml 2307.8 ml Output Total 115 ml 95 ml 36 ml Balance 285 ml 1801.57 ml 2271.8 ml MERLE MEYER MD Jan 15, 2019 09:11
[2019-01-15] MEDS: TPN PER PHARMACY MC PRN ×3 (09:38→14:20)
--- NOTE | 2019-01-15 09:59 | PDOC ---
PULMONARY PROGRESS NOTES Subjective WORSENING HYPOXIA/ MET AND RESP ACIDOSIS , WORSENING CXR SEDATED ON AC MODE 12 PEEP 100 %, on propofol, versed, fentanyl, mod ett secretion ON levo, Vitals Vital Signs Date Time Temp Pulse Resp B/P (MAP) Pulse Ox O2 Delivery O2 Flow Rate FiO2 01/15/19 09:17 84 Ventilator 01/15/19 08:24 22 01/15/19 06:00 101 93/38 (56) 01/15/19 04:00 98.4 98.4 01/15/19 02:56 2.0 Comments ros as mentioned as above discussed w rn other sys otherwise neg on vent sedated Lungs: Other (decrease bs) Cardiovascular: S1, S2 Abdomen: Soft, Non-tender, Other (DISTENDED no mass) Extremities: Other (EDEMA) Skin: Warm Labs Laboratory Tests Test 01/13/19 11:50 01/13/19 12:20 01/13/19 17:17 01/14/19 05:25 Hepatitis B Surface Antibody, Quant <3.1 mIU/mL (Immunity>9.9) Glucose (Fingerstick) 99 mg/dL (70-99) 78 mg/dL (70-99) White Blood Count 26.9 x10^3/uL (4.0-11.0) Red Blood Count 2.53 x10^6/uL (4.30-5.70) Hemoglobin 8.3 g/dL (13.0-17.5) Hematocrit 25.2 % (39.0-53.0) Mean Corpuscular Volume 100 fL (79-100) Mean Corpuscular Hemoglobin 33 pg (25-35) Mean Corpuscular Hemoglobin Concent 33 g/dL (31-37) Red Cell Distribution Width 17.5 % (11.5-14.5) Platelet Count 156 x10^3/uL (140-400) Neutrophils (%) (Auto) 65 % (31-73) Lymphocytes (%) (Auto) 30 % (24-48) Monocytes (%) (Auto) 3 % (0-9) Eosinophils (%) (Auto) 1 % (0-3) Basophils (%) (Auto) 1 % (0-3) Neutrophils # (Auto) 17.5 x10^3/uL (1.8-7.7) Lymphocytes # (Auto) 8.1 x10^3/uL (1.0-4.8) Monocytes # (Auto) 0.9 x10^3/uL (0.0-1.1) Eosinophils # (Auto) 0.2 x10^3/uL (0.0-0.7) Basophils # (Auto) 0.4 x10^3/uL (0.0-0.2) Segmented Neutrophils % 73 % (35-66) Band Neutrophils % 10 % (0-9) Lymphocytes % 14 % (24-48) Monocytes % 1 % (0-10) Eosinophils % 2 % (0-5) Nucleated Red Blood Cells 1 Toxic Granulation Mod Toxic Vacuolation Slight Platelet Estimate Adequate (ADEQUATE) Polychromasia Slight Anisocytosis Slight Prothrombin Time 16.7 SEC (11.7-14.0) Prothromb Time International Ratio 1.4 (0.8-1.1) Sodium Level 141 mmol/L (136-145) Potassium Level 4.3 mmol/L (3.5-5.1) Chloride Level 104 mmol/L (98-107) Carbon Dioxide Level 23 mmol/L (21-32) Anion Gap 14 (6-14) Blood Urea Nitrogen 66 mg/dL (8-26) Creatinine 2.5 mg/dL (0.7-1.3) Estimated GFR (Cockcroft-Gault) 29.0 BUN/Creatinine Ratio 26 (6-20) Glucose Level 106 mg/dL (70-99) Calcium Level 7.2 mg/dL (8.5-10.1) Phosphorus Level 3.9 mg/dL (2.6-4.7) Magnesium Level 2.7 mg/dL (1.8-2.4) Total Bilirubin 10.2 mg/dL (0.2-1.0) Aspartate Amino Transf (AST/SGOT) 253 U/L (15-37) Alanine Aminotransferase (ALT/SGPT) 87 U/L (16-63) Alkaline Phosphatase 109 U/L (46-116) Total Protein 5.7 g/dL (6.4-8.2) Albumin 1.4 g/dL (3.4-5.0) Albumin/Globulin Ratio 0.3 (1.0-1.7) Triglycerides Level 281 mg/dL (0-150) Mycoplasma Serology (LAB) Positive (NEGATIVE) Test 01/14/19 08:30 01/14/19 09:09 01/14/19 12:31 01/14/19 16:58 O2 Saturation 91 % (92-99) Arterial Blood pH 7.38 (7.35-7.45) Arterial Blood pCO2 at Patient Temp 40 mmHg (35-46) Arterial Blood pO2 at Patient Temp 68 mmHg (85-108) Arterial Blood HCO3 23 mmol/L (21-28) Arterial Blood Base Excess -2 mmol/L (-3-3) FiO2 100 Glucose (Fingerstick) 118 mg/dL (70-99) 124 mg/dL (70-99) 102 mg/dL (70-99) Test 01/15/19 05:30 01/15/19 08:00 01/15/19 08:03 01/15/19 08:55 White Blood Count 44.5 x10^3/uL (4.0-11.0) 39.6 x10^3/uL (4.0-11.0) Red Blood Count 2.89 x10^6/uL (4.30-5.70) 2.69 x10^6/uL (4.30-5.70) Hemoglobin 9.5 g/dL (13.0-17.5) 8.9 g/dL (13.0-17.5) Hematocrit 30.1 % (39.0-53.0) 28.0 % (39.0-53.0) Mean Corpuscular Volume 104 fL (79-100) 104 fL (79-100) Mean Corpuscular Hemoglobin 33 pg (25-35) 33 pg (25-35) Mean Corpuscular Hemoglobin Concent 32 g/dL (31-37) 32 g/dL (31-37) Red Cell Distribution Width 18.6 % (11.5-14.5) 19.0 % (11.5-14.5) Platelet Count 171 x10^3/uL (140-400) 148 x10^3/uL (140-400) Neutrophils (%) (Auto) 82 % (31-73) Lymphocytes (%) (Auto) 16 % (24-48) Monocytes (%) (Auto) 2 % (0-9) Eosinophils (%) (Auto) 0 % (0-3) Basophils (%) (Auto) 1 % (0-3) Neutrophils # (Auto) 36.4 x10^3/uL (1.8-7.7) Lymphocytes # (Auto) 6.9 x10^3/uL (1.0-4.8) Monocytes # (Auto) 0.8 x10^3/uL (0.0-1.1) Eosinophils # (Auto) 0.1 x10^3/uL (0.0-0.7) Basophils # (Auto) 0.3 x10^3/uL (0.0-0.2) Segmented Neutrophils % 78 % (35-66) Band Neutrophils % 7 % (0-9) Lymphocytes % 10 % (24-48) Monocytes % 3 % (0-10) Metamyelocytes % 1 % (0-0) Myelocytes % 1 % (0-0) Toxic Granulation Mod Toxic Vacuolation Present Platelet Estimate Adequate (ADEQUATE) Large Platelets Few Anisocytosis Slight Prothrombin Time 17.9 SEC (11.7-14.0) Prothromb Time International Ratio 1.5 (0.8-1.1) Sodium Level 135 mmol/L (136-145) Potassium Level 5.6 mmol/L (3.5-5.1) Chloride Level 99 mmol/L (98-107) Carbon Dioxide Level 23 mmol/L (21-32) Anion Gap 13 (6-14) Blood Urea Nitrogen 62 mg/dL (8-26) Creatinine 3.1 mg/dL (0.7-1.3) Estimated GFR (Cockcroft-Gault) 22.7 BUN/Creatinine Ratio 20 (6-20) Glucose Level 84 mg/dL (70-99) Calcium Level 7.1 mg/dL (8.5-10.1) Phosphorus Level 7.8 mg/dL (2.6-4.7) Magnesium Level 2.5 mg/dL (1.8-2.4) Total Bilirubin 11.0 mg/dL (0.2-1.0) Aspartate Amino Transf (AST/SGOT) 232 U/L (15-37) Alanine Aminotransferase (ALT/SGPT) 81 U/L (16-63) Alkaline Phosphatase 134 U/L (46-116) Total Protein 5.9 g/dL (6.4-8.2) Albumin 1.3 g/dL (3.4-5.0) Albumin/Globulin Ratio 0.3 (1.0-1.7) O2 Saturation 84 % (92-99) Arterial Blood pH 7.14 (7.35-7.45) Arterial Blood pCO2 at Patient Temp 55 mmHg (35-46) Arterial Blood pO2 at Patient Temp 62 mmHg (85-108) Arterial Blood HCO3 18 mmol/L (21-28) Arterial Blood Base Excess -11 mmol/L (-3-3) FiO2 100 Glucose (Fingerstick) 78 mg/dL (70-99) Laboratory Tests Test 01/14/19 12:31 01/14/19 16:58 01/15/19 05:30 01/15/19 08:00 Glucose (Fingerstick) 124 mg/dL (70-99) 102 mg/dL (70-99) White Blood Count 44.5 x10^3/uL (4.0-11.0) Red Blood Count 2.89 x10^6/uL (4.30-5.70) Hemoglobin 9.5 g/dL (13.0-17.5) Hematocrit 30.1 % (39.0-53.0) Mean Corpuscular Volume 104 fL (79-100) Mean Corpuscular Hemoglobin 33 pg (25-35) Mean Corpuscular Hemoglobin Concent 32 g/dL (31-37) Red Cell Distribution Width 18.6 % (11.5-14.5) Platelet Count 171 x10^3/uL (140-400) Neutrophils (%) (Auto) 82 % (31-73) Lymphocytes (%) (Auto) 16 % (24-48) Monocytes (%) (Auto) 2 % (0-9) Eosinophils (%) (Auto) 0 % (0-3) Basophils (%) (Auto) 1 % (0-3) Neutrophils # (Auto) 36.4 x10^3/uL (1.8-7.7) Lymphocytes # (Auto) 6.9 x10^3/uL (1.0-4.8) Monocytes # (Auto) 0.8 x10^3/uL (0.0-1.1) Eosinophils # (Auto) 0.1 x10^3/uL (0.0-0.7) Basophils # (Auto) 0.3 x10^3/uL (0.0-0.2) Segmented Neutrophils % 78 % (35-66) Band Neutrophils % 7 % (0-9) Lymphocytes % 10 % (24-48) Monocytes % 3 % (0-10) Metamyelocytes % 1 % (0-0) Myelocytes % 1 % (0-0) Toxic Granulation Mod Toxic Vacuolation Present Platelet Estimate Adequate (ADEQUATE) Large Platelets Few Anisocytosis Slight Prothrombin Time 17.9 SEC (11.7-14.0) Prothromb Time International Ratio 1.5 (0.8-1.1) Sodium Level 135 mmol/L (136-145) Potassium Level 5.6 mmol/L (3.5-5.1) Chloride Level 99 mmol/L (98-107) Carbon Dioxide Level 23 mmol/L (21-32) Anion Gap 13 (6-14) Blood Urea Nitrogen 62 mg/dL (8-26) Creatinine 3.1 mg/dL (0.7-1.3) Estimated GFR (Cockcroft-Gault) 22.7 BUN/Creatinine Ratio 20 (6-20) Glucose Level 84 mg/dL (70-99) Calcium Level 7.1 mg/dL (8.5-10.1) Phosphorus Level 7.8 mg/dL (2.6-4.7) Magnesium Level 2.5 mg/dL (1.8-2.4) Total Bilirubin 11.0 mg/dL (0.2-1.0) Aspartate Amino Transf (AST/SGOT) 232 U/L (15-37) Alanine Aminotransferase (ALT/SGPT) 81 U/L (16-63) Alkaline Phosphatase 134 U/L (46-116) Total Protein 5.9 g/dL (6.4-8.2) Albumin 1.3 g/dL (3.4-5.0) Albumin/Globulin Ratio 0.3 (1.0-1.7) O2 Saturation 84 % (92-99) Arterial Blood pH 7.14 (7.35-7.45) Arterial Blood pCO2 at Patient Temp 55 mmHg (35-46) Arterial Blood pO2 at Patient Temp 62 mmHg (85-108) Arterial Blood HCO3 18 mmol/L (21-28) Arterial Blood Base Excess -11 mmol/L (-3-3) FiO2 100 Test 01/15/19 08:03 01/15/19 08:55 Glucose (Fingerstick) 78 mg/dL (70-99) White Blood Count 39.6 x10^3/uL (4.0-11.0) Red Blood Count 2.69 x10^6/uL (4.30-5.70) Hemoglobin 8.9 g/dL (13.0-17.5) Hematocrit 28.0 % (39.0-53.0) Mean Corpuscular Volume 104 fL (79-100) Mean Corpuscular Hemoglobin 33 pg (25-35) Mean Corpuscular Hemoglobin Concent 32 g/dL (31-37) Red Cell Distribution Width 19.0 % (11.5-14.5) Platelet Count 148 x10^3/uL (140-400) Comments cxr reviewed, 01/15 ett ok 1. Bilateral infiltrates worse Impression . IMPRESSION: 1. Acute respiratory failure, multifactorial, secondary to multiorgan failure. Now with worsening hypoxia/ hypercapnia.likely superimposed CHF/ underlying a spiration pneumonitis/ ARDS, no evidence of hepato-pulmonary shunt on Bubble echo 2. End-stage liver disease with persistent abnormal LFT 3. Multiorgan failure. 4. Renal failure. ? hepato renal syndrome, inititated on HD, will need CRRT 5. Acute gastrointestinal bleed.? MV Tear, stable Hb 6. sepsis. 7. Leukocytosis. marked increase, no fever, possible leukemoid reaction 8. Hematemesis.resolved 9. Rhabdomyolysis. 10. Alcohol abuse. 11. Ascites. 12. Electrolyte abnormalities. 13. fever,resolved Imaging: EGD 01/08 E--NO VARICES. Erosions distally c/w reflux/repeated emesis. One quite long narrow erosion which could have been a M-W. No active bleeding or clot. G--Not much retained blood after OG suction and Reglan. NO gastric varices. Linear erosions along the rugae in fundus and body c/w alcoholic or stress gastritis. Scattered "bruises" from OG tube. No ulcer, etc. D--Normal to second portion. IMP: Reflux esophagitis. ? recent M-W tear. Alcoholic gastritis. No active bleeding or clot seen. Plan . will change to PC/ENZO PEEP of 12, cont 100 Fi02 titration, f/u ABG Not stable for Bronch, Not indicated at present [facility] PROGNOSIS IS POOR 1. D/W Dr A Domínguez. will need UF. Will need CRRT 2. Continue BS antibiotics per Infectious Disease 3. F/U CXR 4. remains critical 5. Monitor hemoglobin and hematocrit. 6. Follow GI recommendation.f/u LFT 7. Alcohol withdrawal protocol. 8. Nutrition, on TPN, has been 5 litres positive 9. echo with bubble study Neg cct 35 min FRED SMITH MD Jan 15, 2019 09:59
[2019-01-15] MEDS ORDERED: DIALYSIS PATIENT. MC PRN ×2 (10:00)
[2019-01-15] MEDS ORDERED: ALBUMIN HUMAN 25% 200 ML IV PRN (10:00)
[2019-01-15] MEDS ORDERED: IV NORMAL SALINE 1000ML BAG 1,000 ML IV PRN ×2 (10:00)
--- NOTE | 2019-01-15 10:05 | RAD ---
PORTABLE CHEST 1V Clinical History: Technique: AP view of the chest was obtained at 01/15/2019 9:00 AM. Comparison: None. Findings: The endotracheal tube NG tube and right jugular lines are unchanged. The heart is top normal limits in size. There is patchy opacities of the lungs and blunting of gastric angles. Pulmonary vessels are not well evaluated. Impression: Moderate bilateral infiltrates with mild pleural effusions could be CHF or ARDS or pneumonia and appears moderately worse. Electronically signed by: James Simpson III, MD (01/15/2019 10:02 AM) [facility] [place]
[2019-01-15] MEDS: VASOPRESSIN 40 UNIT in IV DEXTROSE 5% 100ML 100 ML IV PRN (11:05)
[2019-01-15 11:15] LABS: BASE EXCESS ABG -6 mmol/L (-3-3); HCO3 ABG 19 mmol/L (21-28); PCO2 ABG 38 mmHg (35-46); SAT O2 ABG 80 % (92-99)
[2019-01-15 11:17] LABS: FIO2 ABG 100%; PO2 ABG 48 mmHg (85-108)
[2019-01-15] MEDS ORDERED: POTASSIUM CHLORIDE 20 MEQ in DIALYSIS SOLUTION BGK 0/2.5 5,000 ML IV SCH ×6 (14:00)
--- NOTE | 2019-01-15 14:26 | NUR ---
Pharmacy TPN Dosing Note S: ULI CARRIZALES is a 38 year old M Currently receiving Central Continuous TPN started 01/13/19 B:Pertinent PMH: Ileus, high residuals with tube feeding Height: 5 feet, 7 inches Weight: 109.719767 kg Current diet: LABS: Sodium: 135 Potassium: 5.6 Chloride: 99 Calcium: 7.1 Corrected Calcium: 9.26 Magnesium: 2.5 CO2: 23 SCr: 3.1 Glucose: 84 Albumin: 1.3 AST: 232 ALT: 81 TPN FORMULA: TPN TYPE: Central Continuous AMINO ACIDS: 100 gm DEXTROSE: 225 gm LIPIDS: 20 gm SODIUM CHLORIDE: 40 mEq SODIUM ACETATE: 40 mEq SODIUM PHOSPHATE: mmol POTASSIUM CHLORIDE: mEq POTASSIUM ACETATE: - mEq POTASSIUM PHOSPHATE: - mmol MAGNESIUM: - mEq CALCIUM: 10 mEq INSULIN: units MULTIPLE VITAMIN: 10 ml TRACE ELEMENTS: 1 ml(s) TPN PLAN: UP NACL 40 MEQ, removed kcl. add thiamine to tpn. R: Continue TPN AT 63ML/HR Will monitor electrolytes, glucose, and tolerance to TPN. ANT [facility], 01/15/19 [id number]
[2019-01-15 15:13] LABS: BASE EXCESS ABG -3 mmol/L (-3-3); HCO3 ABG 21 mmol/L (21-28); PCO2 ABG 32 mmHg (35-46); PO2 ABG 67 mmHg (85-108); SAT O2 ABG 93 % (92-99)
[2019-01-15 15:15] LABS: FIO2 ABG 100%
[2019-01-15] MEDS: ALBUMIN HUMAN 25% 100 ML IV SCH ×3 (16:08→23:43)
[2019-01-15] MEDS: IV NORMAL SALINE 1000ML BAG 1,000 ML IV SCH (16:08)
[2019-01-15 18:25] LABS: CALCIUM 7.1 mg/dL (8.5-10.1); CREATININE 2.3 mg/dL (0.7-1.3); MAGNESIUM 2.1 mg/dL (1.8-2.4); PHOSPHORUS 4.4 mg/dL (2.6-4.7); POTASSIUM 4.1 mmol/L (3.5-5.1)
[2019-01-15] MEDS: POTASSIUM CHLORIDE 20 MEQ in DIALYSIS SOLUTION BGK 0/2.5 5,000 ML IV SCH ×8 (19:42→23:09)
[2019-01-15 20:03] LABS: BASE EXCESS ABG -5 mmol/L (-3-3); HCO3 ABG 20 mmol/L (21-28); PCO2 ABG 32 mmHg (35-46); PO2 ABG 77 mmHg (85-108); SAT O2 ABG 94 % (92-99)
[2019-01-15 20:34] LABS: FIO2 ABG 100
[2019-01-15] MEDS ORDERED: DEXTROSE 70% IV SCH ×28 (22:00)
[2019-01-15] MEDS ORDERED: [UNRECOGNIZED DRUG - OTHER] IV SCH ×10 (22:00)
[2019-01-15] MEDS ORDERED: TOTAL PARENTERAL NUTRITION IV SCH ×28 (22:00)
[2019-01-15] MEDS ORDERED: [UNRECOGNIZED DRUG - OTHER] IV SCH ×9 (22:00)
[2019-01-15] MEDS ORDERED: [UNRECOGNIZED DRUG - OTHER] IV SCH ×9 (22:00)
[2019-01-15] MEDS ORDERED: AMINO ACID IV SCH ×28 (22:00)
[2019-01-16] VITALS (32 sets, daily range): BP systolic 85–142; BP diastolic 34–93
[2019-01-16] MEDS: VECURONIUM BOLUS 10 MG VIAL. IV PRN ×3 (00:05→06:44)
[2019-01-16 00:27] LABS: CALCIUM 7.1 mg/dL (8.5-10.1); GFR 37.6; MAGNESIUM 2.2 mg/dL (1.8-2.4); PHOSPHORUS 3.6 mg/dL (2.6-4.7); POTASSIUM 4.2 mmol/L (3.5-5.1)
[2019-01-16] MEDS: VASOPRESSIN 40 UNIT in IV DEXTROSE 5% 100ML 100 ML IV PRN ×2 (01:04→19:22)
[2019-01-16] MEDS: MIDAZOLAM 100mg/100ml NS BAG 100 ML IV PRN ×2 (02:53→10:46)
[2019-01-16] MEDS: DEXMEDETOMIDINE 400 MCG in IV NORMAL SALINE 100ML 96 ML IV PRN ×4 (03:28→19:22)
[2019-01-16] MEDS: POTASSIUM CHLORIDE 20 MEQ in DIALYSIS SOLUTION BGK 0/2.5 5,000 ML IV SCH ×17 (03:38→19:25)
[2019-01-16] MEDS: ALBUMIN HUMAN 25% 100 ML IV SCH ×3 (05:39→18:02)
[2019-01-16] MEDS: PIPERACILLIN/TAZOBACTAM 3.375 GM in IV NORMAL SALINE 50ML 50 ML IV SCH ×3 (05:39→18:06)
[2019-01-16 06:08] LABS: CALCIUM 7.4 mg/dL (8.5-10.1); CREATININE 1.9 mg/dL (0.7-1.3); GFR 39.9; MAGNESIUM 2.4 mg/dL (1.8-2.4); PHOSPHORUS 4.1 mg/dL (2.6-4.7); POTASSIUM 4.4 mmol/L (3.5-5.1)
[2019-01-16 06:10] LABS: BASO # 0.2 x10^3/uL (0.0-0.2); BASO % 1 % (0-3); EOS # 0.1 x10^3/uL (0.0-0.7); EOS % 0 % (0-3); HEMOGLOBIN 8.4 g/dL (13.0-17.5); LYMPH # 3.3 x10^3/uL (1.0-4.8); LYMPH % 12 % (24-48); MEAN CORPUSCULAR HEMOGLOBIN 33 pg (25-35); MEAN CORPUSCULAR HGB CONC 32 g/dL (31-37); MEAN CORPUSCULAR VOLUME 103 fL (79-100); MONO # 0.8 x10^3/uL (0.0-1.1); MONO % 3 % (0-9); NEUT # 24.1 x10^3/uL (1.8-7.7); NEUT % 84 % (31-73); PLATELET COUNT 111 x10^3/uL (140-400); RED BLOOD COUNT 2.53 x10^6/uL (4.30-5.70); RED CELL DISTRIBUTION WIDTH 18.6 % (11.5-14.5); WHITE BLOOD COUNT 28.5 x10^3/uL (4.0-11.0)
--- NOTE | 2019-01-16 07:59 | PDOC ---
PROGRESS NOTES Chief Complaint Chief Complaint Acute respiratory falure, IPPV - 01.08, fluid overload? vs Atypical infection VS ARDS from aspiration HEMATEMESIS in A HEAVY DRINKER -Atrophic gastritis, ?MW tear BUT NO ACTIVE GIB - s.po STAT EGD 01/08 SEVERE PCM - albumin 1,7 -s/p albumin 01/09 - off pressors by 01/10 MInimal ascites - by US and CT HYPOTENSION, s/p, pressors standby, albumin, blood products if needed Coagulopathy - s/p vit K, HEPATIC enceph - ammonia midly high 60-90s - lactulose,LA HIGH residuals TRAMSAMINITIS with ELEVATED TB- per GI (TB 9), AST 300s-500s HEp C antibody positive LEft leg bruise, in this coagulopathic anemic pt sec to fall 2 weeks ago - monitor ELEVATED AGAP acidosis History of Present Illness History of Present Illness Mr Ballard is a 38 yo M w/ PMHx heavy ETOH abuse admitted with massive hematemesis on 01/07/19, was emergently intubated and admitted to ICU. S/p EGD, no active GIB, poss MW, atrophic gastritis, off SANDOSTATIN, CONT PPI gtt, SCDS. AMMONIA 60-90s - started lactulose, qdaily per GI, HEp c AB positive - negative PCR HIGH GASTRIC RESIDUALS 01/10/19, had to stop TF Intubated, sedated - needed to vecuronium per RN 01/12: PEEP 10, Fi O2 100% - was not ready to extubate weekend. CXR shows more edema, Echo shows no valvular or pressure abnormalities, off pressor since 01/09, UO ok but Cr up to 1.8 today. 01/13: Febrile 101.2F yesterday afternoon and 100.7F this morning. TF off 2/2 high residuals. KUB shows no obstruction but possible ileus. No BM. Bilirubin increasing to 11.3, Cr increasing to 2.2. Albumin decreased. More edematous today. BP lower. HD cath placed and HD session per nephro. 01/14: Cr worse, UOP minimal, though 1.9L logged. Bowel sounds decreased. Still on levophed. Still febrile 101.7F this morning. PEEP 10, FiO2 100%. D/w and mother bedside 01/15: Afebrile past 24 hours, but overnight had significant O2 desaturations with repositioning. Still requiring levophed. PEEP 12, FiO2 100%. ABG 7.14/55/62. Renal and hepatic function not improved. WBC up to 44 today WBC 28.5, ABG 7.22/48/52. CXR show possible consolidation in RLL and interstitial pulmonary markings. abdomen a bit more swollen. PLAN Lactulose TID. If residuals are still high will need to start enemas and 1x reglan Likely CRRT Cards, pulmo, GI, nephrology on case NO bleeding so far since admission Will need to d/w nephrology with Cr elevation and pulmonary edema, progostically this is a poor sign cc ill prog guarded, mentation might be a problem in extubating in this alcoholic CC time 47 minutes Vitals Vitals Vital Signs Date Time Temp Pulse Resp B/P (MAP) Pulse Ox O2 Delivery O2 Flow Rate FiO2 01/16/19 06:09 90 Ventilator 01/16/19 06:00 79 24 87/46 (60) 01/16/19 05:38 2.0 01/16/19 04:00 96.3 96.3 Physical Exam Physical Exam GENERAL: Orally intubated and sedated, mitts HEENT: Pupils equal, ETT and OGT Heart : S1 S2 tachy ABDOMEN: Obese, soft, hypoactive BS : - Pollard EXTREMITIES: Trace edema lower extremities bilaterally. LLE ecchymosis. SKIN: Warm to touch. No rash , bruising /subcut hematoma NEUROLOGIC: Sedated PIV s clean General: Other (tachypneic 30s) Heart: Regular rate, Normal S1, Normal S2 Lungs: Other (decrease bs) Abdomen: Soft, No tenderness, Other (pot belly possible fluid wave) Extremities: No clubbing, No cyanosis, Normal pulses, Other (left leg is bruised from a fall 2-3 weeks ago) Labs LABS Laboratory Tests Test 01/15/19 08:00 01/15/19 08:03 01/15/19 08:55 01/15/19 09:15 O2 Saturation 84 % (92-99) Arterial Blood pH 7.14 (7.35-7.45) Arterial Blood pCO2 at Patient Temp 55 mmHg (35-46) Arterial Blood pO2 at Patient Temp 62 mmHg (85-108) Arterial Blood HCO3 18 mmol/L (21-28) Arterial Blood Base Excess -11 mmol/L (-3-3) FiO2 100 Glucose (Fingerstick) 78 mg/dL (70-99) White Blood Count 39.6 x10^3/uL (4.0-11.0) Red Blood Count 2.69 x10^6/uL (4.30-5.70) Hemoglobin 8.9 g/dL (13.0-17.5) Hematocrit 28.0 % (39.0-53.0) Mean Corpuscular Volume 104 fL (79-100) Mean Corpuscular Hemoglobin 33 pg (25-35) Mean Corpuscular Hemoglobin Concent 32 g/dL (31-37) Red Cell Distribution Width 19.0 % (11.5-14.5) Platelet Count 148 x10^3/uL (140-400) Lactic Acid Level 11.2 mmol/L (0.4-2.0) Test 01/15/19 11:13 01/15/19 12:10 01/15/19 15:00 01/15/19 16:37 O2 Saturation 80 % (92-99) 93 % (92-99) Arterial Blood pH 7.32 (7.35-7.45) 7.42 (7.35-7.45) Arterial Blood pCO2 at Patient Temp 38 mmHg (35-46) 32 mmHg (35-46) Arterial Blood pO2 at Patient Temp 48 mmHg (85-108) 67 mmHg (85-108) Arterial Blood HCO3 19 mmol/L (21-28) 21 mmol/L (21-28) Arterial Blood Base Excess -6 mmol/L (-3-3) -3 mmol/L (-3-3) FiO2 100% 100% Glucose (Fingerstick) 79 mg/dL (70-99) 91 mg/dL (70-99) Test 01/15/19 17:45 01/15/19 20:00 01/15/19 23:58 01/16/19 00:01 Sodium Level 138 mmol/L (136-145) 136 mmol/L (136-145) Potassium Level 4.1 mmol/L (3.5-5.1) 4.2 mmol/L (3.5-5.1) Chloride Level 98 mmol/L (98-107) 97 mmol/L (98-107) Carbon Dioxide Level 22 mmol/L (21-32) 23 mmol/L (21-32) Anion Gap 18 (6-14) 16 (6-14) Blood Urea Nitrogen 42 mg/dL (8-26) 35 mg/dL (8-26) Creatinine 2.3 mg/dL (0.7-1.3) 2.0 mg/dL (0.7-1.3) Estimated GFR (Cockcroft-Gault) 32.0 37.6 Glucose Level 89 mg/dL (70-99) 154 mg/dL (70-99) Calcium Level 7.1 mg/dL (8.5-10.1) 7.1 mg/dL (8.5-10.1) Phosphorus Level 4.4 mg/dL (2.6-4.7) 3.6 mg/dL (2.6-4.7) Magnesium Level 2.1 mg/dL (1.8-2.4) 2.2 mg/dL (1.8-2.4) O2 Saturation 94 % (92-99) Arterial Blood pH 7.40 (7.35-7.45) Arterial Blood pCO2 at Patient Temp 32 mmHg (35-46) Arterial Blood pO2 at Patient Temp 77 mmHg (85-108) Arterial Blood HCO3 20 mmol/L (21-28) Arterial Blood Base Excess -5 mmol/L (-3-3) FiO2 100 Glucose (Fingerstick) 147 mg/dL (70-99) Test 01/16/19 05:30 White Blood Count 28.5 x10^3/uL (4.0-11.0) Red Blood Count 2.53 x10^6/uL (4.30-5.70) Hemoglobin 8.4 g/dL (13.0-17.5) Hematocrit 26.0 % (39.0-53.0) Mean Corpuscular Volume 103 fL (79-100) Mean Corpuscular Hemoglobin 33 pg (25-35) Mean Corpuscular Hemoglobin Concent 32 g/dL (31-37) Red Cell Distribution Width 18.6 % (11.5-14.5) Platelet Count 111 x10^3/uL (140-400) Neutrophils (%) (Auto) 84 % (31-73) Lymphocytes (%) (Auto) 12 % (24-48) Monocytes (%) (Auto) 3 % (0-9) Eosinophils (%) (Auto) 0 % (0-3) Basophils (%) (Auto) 1 % (0-3) Neutrophils # (Auto) 24.1 x10^3/uL (1.8-7.7) Lymphocytes # (Auto) 3.3 x10^3/uL (1.0-4.8) Monocytes # (Auto) 0.8 x10^3/uL (0.0-1.1) Eosinophils # (Auto) 0.1 x10^3/uL (0.0-0.7) Basophils # (Auto) 0.2 x10^3/uL (0.0-0.2) Sodium Level 136 mmol/L (136-145) Potassium Level 4.4 mmol/L (3.5-5.1) Chloride Level 98 mmol/L (98-107) Carbon Dioxide Level 22 mmol/L (21-32) Anion Gap 16 (6-14) Blood Urea Nitrogen 34 mg/dL (8-26) Creatinine 1.9 mg/dL (0.7-1.3) Estimated GFR (Cockcroft-Gault) 39.9 Glucose Level 133 mg/dL (70-99) Lactic Acid Level 10.1 mmol/L (0.4-2.0) Calcium Level 7.4 mg/dL (8.5-10.1) Phosphorus Level 4.1 mg/dL (2.6-4.7) Magnesium Level 2.4 mg/dL (1.8-2.4) Assessment and Plan Assessmemt and Plan Problems Medical Problems: (1) Acute hepatic encephalopathy Status: Acute (2) Acute upper GI bleed Status: Acute (3) Ascites Status: Acute (4) Hypokalemia Status: Acute (5) Multiple organ system failure Status: Acute (6) Severe sepsis with acute organ dysfunction Status: Acute Comment Review of Relevant I have reviewed the following items karen (where applicable) has been applied. Labs Laboratory Tests Test 01/14/19 08:30 01/14/19 09:09 01/14/19 12:31 01/14/19 16:58 O2 Saturation 91 % (92-99) Arterial Blood pH 7.38 (7.35-7.45) Arterial Blood pCO2 at Patient Temp 40 mmHg (35-46) Arterial Blood pO2 at Patient Temp 68 mmHg (85-108) Arterial Blood HCO3 23 mmol/L (21-28) Arterial Blood Base Excess -2 mmol/L (-3-3) FiO2 100 Glucose (Fingerstick) 118 mg/dL (70-99) 124 mg/dL (70-99) 102 mg/dL (70-99) Test 01/15/19 05:30 01/15/19 08:00 01/15/19 08:03 01/15/19 08:55 White Blood Count 44.5 x10^3/uL (4.0-11.0) 39.6 x10^3/uL (4.0-11.0) Red Blood Count 2.89 x10^6/uL (4.30-5.70) 2.69 x10^6/uL (4.30-5.70) Hemoglobin 9.5 g/dL (13.0-17.5) 8.9 g/dL (13.0-17.5) Hematocrit 30.1 % (39.0-53.0) 28.0 % (39.0-53.0) Mean Corpuscular Volume 104 fL (79-100) 104 fL (79-100) Mean Corpuscular Hemoglobin 33 pg (25-35) 33 pg (25-35) Mean Corpuscular Hemoglobin Concent 32 g/dL (31-37) 32 g/dL (31-37) Red Cell Distribution Width 18.6 % (11.5-14.5) 19.0 % (11.5-14.5) Platelet Count 171 x10^3/uL (140-400) 148 x10^3/uL (140-400) Neutrophils (%) (Auto) 82 % (31-73) Lymphocytes (%) (Auto) 16 % (24-48) Monocytes (%) (Auto) 2 % (0-9) Eosinophils (%) (Auto) 0 % (0-3) Basophils (%) (Auto) 1 % (0-3) Neutrophils # (Auto) 36.4 x10^3/uL (1.8-7.7) Lymphocytes # (Auto) 6.9 x10^3/uL (1.0-4.8) Monocytes # (Auto) 0.8 x10^3/uL (0.0-1.1) Eosinophils # (Auto) 0.1 x10^3/uL (0.0-0.7) Basophils # (Auto) 0.3 x10^3/uL (0.0-0.2) Segmented Neutrophils % 78 % (35-66) Band Neutrophils % 7 % (0-9) Lymphocytes % 10 % (24-48) Monocytes % 3 % (0-10) Metamyelocytes % 1 % (0-0) Myelocytes % 1 % (0-0) Toxic Granulation Mod Toxic Vacuolation Present Platelet Estimate Adequate (ADEQUATE) Large Platelets Few Anisocytosis Slight Prothrombin Time 17.9 SEC (11.7-14.0) Prothromb Time International Ratio 1.5 (0.8-1.1) Sodium Level 135 mmol/L (136-145) Potassium Level 5.6 mmol/L (3.5-5.1) Chloride Level 99 mmol/L (98-107) Carbon Dioxide Level 23 mmol/L (21-32) Anion Gap 13 (6-14) Blood Urea Nitrogen 62 mg/dL (8-26) Creatinine 3.1 mg/dL (0.7-1.3) Estimated GFR (Cockcroft-Gault) 22.7 BUN/Creatinine Ratio 20 (6-20) Glucose Level 84 mg/dL (70-99) Calcium Level 7.1 mg/dL (8.5-10.1) Phosphorus Level 7.8 mg/dL (2.6-4.7) Magnesium Level 2.5 mg/dL (1.8-2.4) Total Bilirubin 11.0 mg/dL (0.2-1.0) Aspartate Amino Transf (AST/SGOT) 232 U/L (15-37) Alanine Aminotransferase (ALT/SGPT) 81 U/L (16-63) Alkaline Phosphatase 134 U/L (46-116) Total Protein 5.9 g/dL (6.4-8.2) Albumin 1.3 g/dL (3.4-5.0) Albumin/Globulin Ratio 0.3 (1.0-1.7) O2 Saturation 84 % (92-99) Arterial Blood pH 7.14 (7.35-7.45) Arterial Blood pCO2 at Patient Temp 55 mmHg (35-46) Arterial Blood pO2 at Patient Temp 62 mmHg (85-108) Arterial Blood HCO3 18 mmol/L (21-28) Arterial Blood Base Excess -11 mmol/L (-3-3) FiO2 100 Glucose (Fingerstick) 78 mg/dL (70-99) Test 01/15/19 09:15 01/15/19 11:13 01/15/19 12:10 01/15/19 15:00 Lactic Acid Level 11.2 mmol/L (0.4-2.0) O2 Saturation 80 % (92-99) 93 % (92-99) Arterial Blood pH 7.32 (7.35-7.45) 7.42 (7.35-7.45) Arterial Blood pCO2 at Patient Temp 38 mmHg (35-46) 32 mmHg (35-46) Arterial Blood pO2 at Patient Temp 48 mmHg (85-108) 67 mmHg (85-108) Arterial Blood HCO3 19 mmol/L (21-28) 21 mmol/L (21-28) Arterial Blood Base Excess -6 mmol/L (-3-3) -3 mmol/L (-3-3) FiO2 100% 100% Glucose (Fingerstick) 79 mg/dL (70-99) Test 01/15/19 16:37 01/15/19 17:45 01/15/19 20:00 01/15/19 23:58 Glucose (Fingerstick) 91 mg/dL (70-99) 147 mg/dL (70-99) Sodium Level 138 mmol/L (136-145) Potassium Level 4.1 mmol/L (3.5-5.1) Chloride Level 98 mmol/L (98-107) Carbon Dioxide Level 22 mmol/L (21-32) Anion Gap 18 (6-14) Blood Urea Nitrogen 42 mg/dL (8-26) Creatinine 2.3 mg/dL (0.7-1.3) Estimated GFR (Cockcroft-Gault) 32.0 Glucose Level 89 mg/dL (70-99) Calcium Level 7.1 mg/dL (8.5-10.1) Phosphorus Level 4.4 mg/dL (2.6-4.7) Magnesium Level 2.1 mg/dL (1.8-2.4) O2 Saturation 94 % (92-99) Arterial Blood pH 7.40 (7.35-7.45) Arterial Blood pCO2 at Patient Temp 32 mmHg (35-46) Arterial Blood pO2 at Patient Temp 77 mmHg (85-108) Arterial Blood HCO3 20 mmol/L (21-28) Arterial Blood Base Excess -5 mmol/L (-3-3) FiO2 100 Test 01/16/19 00:01 01/16/19 05:30 Sodium Level 136 mmol/L (136-145) 136 mmol/L (136-145) Potassium Level 4.2 mmol/L (3.5-5.1) 4.4 mmol/L (3.5-5.1) Chloride Level 97 mmol/L (98-107) 98 mmol/L (98-107) Carbon Dioxide Level 23 mmol/L (21-32) 22 mmol/L (21-32) Anion Gap 16 (6-14) 16 (6-14) Blood Urea Nitrogen 35 mg/dL (8-26) 34 mg/dL (8-26) Creatinine 2.0 mg/dL (0.7-1.3) 1.9 mg/dL (0.7-1.3) Estimated GFR (Cockcroft-Gault) 37.6 39.9 Glucose Level 154 mg/dL (70-99) 133 mg/dL (70-99) Calcium Level 7.1 mg/dL (8.5-10.1) 7.4 mg/dL (8.5-10.1) Phosphorus Level 3.6 mg/dL (2.6-4.7) 4.1 mg/dL (2.6-4.7) Magnesium Level 2.2 mg/dL (1.8-2.4) 2.4 mg/dL (1.8-2.4) White Blood Count 28.5 x10^3/uL (4.0-11.0) Red Blood Count 2.53 x10^6/uL (4.30-5.70) Hemoglobin 8.4 g/dL (13.0-17.5) Hematocrit 26.0 % (39.0-53.0) Mean Corpuscular Volume 103 fL (79-100) Mean Corpuscular Hemoglobin 33 pg (25-35) Mean Corpuscular Hemoglobin Concent 32 g/dL (31-37) Red Cell Distribution Width 18.6 % (11.5-14.5) Platelet Count 111 x10^3/uL (140-400) Neutrophils (%) (Auto) 84 % (31-73) Lymphocytes (%) (Auto) 12 % (24-48) Monocytes (%) (Auto) 3 % (0-9) Eosinophils (%) (Auto) 0 % (0-3) Basophils (%) (Auto) 1 % (0-3) Neutrophils # (Auto) 24.1 x10^3/uL (1.8-7.7) Lymphocytes # (Auto) 3.3 x10^3/uL (1.0-4.8) Monocytes # (Auto) 0.8 x10^3/uL (0.0-1.1) Eosinophils # (Auto) 0.1 x10^3/uL (0.0-0.7) Basophils # (Auto) 0.2 x10^3/uL (0.0-0.2) Lactic Acid Level 10.1 mmol/L (0.4-2.0) Laboratory Tests Test 01/15/19 08:00 01/15/19 08:03 01/15/19 08:55 01/15/19 09:15 O2 Saturation 84 % (92-99) Arterial Blood pH 7.14 (7.35-7.45) Arterial Blood pCO2 at Patient Temp 55 mmHg (35-46) Arterial Blood pO2 at Patient Temp 62 mmHg (85-108) Arterial Blood HCO3 18 mmol/L (21-28) Arterial Blood Base Excess -11 mmol/L (-3-3) FiO2 100 Glucose (Fingerstick) 78 mg/dL (70-99) White Blood Count 39.6 x10^3/uL (4.0-11.0) Red Blood Count 2.69 x10^6/uL (4.30-5.70) Hemoglobin 8.9 g/dL (13.0-17.5) Hematocrit 28.0 % (39.0-53.0) Mean Corpuscular Volume 104 fL (79-100) Mean Corpuscular Hemoglobin 33 pg (25-35) Mean Corpuscular Hemoglobin Concent 32 g/dL (31-37) Red Cell Distribution Width 19.0 % (11.5-14.5) Platelet Count 148 x10^3/uL (140-400) Lactic Acid Level 11.2 mmol/L (0.4-2.0) Test 01/15/19 11:13 01/15/19 12:10 01/15/19 15:00 01/15/19 16:37 O2 Saturation 80 % (92-99) 93 % (92-99) Arterial Blood pH 7.32 (7.35-7.45) 7.42 (7.35-7.45) Arterial Blood pCO2 at Patient Temp 38 mmHg (35-46) 32 mmHg (35-46) Arterial Blood pO2 at Patient Temp 48 mmHg (85-108) 67 mmHg (85-108) Arterial Blood HCO3 19 mmol/L (21-28) 21 mmol/L (21-28) Arterial Blood Base Excess -6 mmol/L (-3-3) -3 mmol/L (-3-3) FiO2 100% 100% Glucose (Fingerstick) 79 mg/dL (70-99) 91 mg/dL (70-99) Test 01/15/19 17:45 01/15/19 20:00 01/15/19 23:58 01/16/19 00:01 Sodium Level 138 mmol/L (136-145) 136 mmol/L (136-145) Potassium Level 4.1 mmol/L (3.5-5.1) 4.2 mmol/L (3.5-5.1) Chloride Level 98 mmol/L (98-107) 97 mmol/L (98-107) Carbon Dioxide Level 22 mmol/L (21-32) 23 mmol/L (21-32) Anion Gap 18 (6-14) 16 (6-14) Blood Urea Nitrogen 42 mg/dL (8-26) 35 mg/dL (8-26) Creatinine 2.3 mg/dL (0.7-1.3) 2.0 mg/dL (0.7-1.3) Estimated GFR (Cockcroft-Gault) 32.0 37.6 Glucose Level 89 mg/dL (70-99) 154 mg/dL (70-99) Calcium Level 7.1 mg/dL (8.5-10.1) 7.1 mg/dL (8.5-10.1) Phosphorus Level 4.4 mg/dL (2.6-4.7) 3.6 mg/dL (2.6-4.7) Magnesium Level 2.1 mg/dL (1.8-2.4) 2.2 mg/dL (1.8-2.4) O2 Saturation 94 % (92-99) Arterial Blood pH 7.40 (7.35-7.45) Arterial Blood pCO2 at Patient Temp 32 mmHg (35-46) Arterial Blood pO2 at Patient Temp 77 mmHg (85-108) Arterial Blood HCO3 20 mmol/L (21-28) Arterial Blood Base Excess -5 mmol/L (-3-3) FiO2 100 Glucose (Fingerstick) 147 mg/dL (70-99) Test 01/16/19 05:30 White Blood Count 28.5 x10^3/uL (4.0-11.0) Red Blood Count 2.53 x10^6/uL (4.30-5.70) Hemoglobin 8.4 g/dL (13.0-17.5) Hematocrit 26.0 % (39.0-53.0) Mean Corpuscular Volume 103 fL (79-100) Mean Corpuscular Hemoglobin 33 pg (25-35) Mean Corpuscular Hemoglobin Concent 32 g/dL (31-37) Red Cell Distribution Width 18.6 % (11.5-14.5) Platelet Count 111 x10^3/uL (140-400) Neutrophils (%) (Auto) 84 % (31-73) Lymphocytes (%) (Auto) 12 % (24-48) Monocytes (%) (Auto) 3 % (0-9) Eosinophils (%) (Auto) 0 % (0-3) Basophils (%) (Auto) 1 % (0-3) Neutrophils # (Auto) 24.1 x10^3/uL (1.8-7.7) Lymphocytes # (Auto) 3.3 x10^3/uL (1.0-4.8) Monocytes # (Auto) 0.8 x10^3/uL (0.0-1.1) Eosinophils # (Auto) 0.1 x10^3/uL (0.0-0.7) Basophils # (Auto) 0.2 x10^3/uL (0.0-0.2) Sodium Level 136 mmol/L (136-145) Potassium Level 4.4 mmol/L (3.5-5.1) Chloride Level 98 mmol/L (98-107) Carbon Dioxide Level 22 mmol/L (21-32) Anion Gap 16 (6-14) Blood Urea Nitrogen 34 mg/dL (8-26) Creatinine 1.9 mg/dL (0.7-1.3) Estimated GFR (Cockcroft-Gault) 39.9 Glucose Level 133 mg/dL (70-99) Lactic Acid Level 10.1 mmol/L (0.4-2.0) Calcium Level 7.4 mg/dL (8.5-10.1) Phosphorus Level 4.1 mg/dL (2.6-4.7) Magnesium Level 2.4 mg/dL (1.8-2.4) Microbiology 01/14/19 Blood Culture - Preliminary, Resulted NO GROWTH AFTER 1 DAY 01/08/19 Urine Culture - Final, Complete 01/08/19 Urine Culture Result 1 (ELMA) - Final, Complete Medications Current Medications Sodium Chloride 1,000 ml @ 1,000 mls/hr 1X ONCE IV Last administered on 01/07/19at 19:27; Start 01/07/19 at 19:30; Stop 01/07/19 at 20:29; Status DC Ondansetron HCl (Zofran) 4 mg 1X ONCE IV Last administered on 01/07/19at 19:28; Start 01/07/19 at 19:30; Stop 01/07/19 at 19:31; Status DC Pantoprazole Sodium (PROTONIX VIAL for IV PUSH) 80 mg 1X ONCE IVP Last administered on 01/07/19at 19:50; Start 01/07/19 at 20:00; Stop 01/07/19 at 20:01; Status DC Pantoprazole Sodium 80 mg/ Sodium Chloride 100 ml @ 10 mls/hr 1X ONCE IV Last administered on 01/07/19at 20:00; Start 01/07/19 at 20:00; Stop 01/08/19 at 05:59; Status DC Sodium Chloride 1,000 ml @ 1,000 mls/hr 1X ONCE IV Last administered on 01/07/19at 22:12; Start 01/07/19 at 21:00; Stop 01/07/19 at 21:59; Status DC Sodium Chloride 1,000 ml @ 1,000 mls/hr 1X ONCE IV Last administered on 01/07/19at 20:40; Start 01/07/19 at 20:45; Stop 01/07/19 at 21:44; Status DC Potassium Chloride/Sodium Chloride 1,000 ml @ 75 mls/hr 1X ONCE IV Last administered on 01/07/19at 21:16; Start 01/07/19 at 21:30; Stop 01/08/19 at 10:49; Status DC Vancomycin HCl (Vanco Per Pharmacy) 1 each PRN DAILY PRN MC SEE COMMENTS Last administered on 01/08/19at 00:43; Start 01/07/19 at 21:00; Stop 01/08/19 at 06:39; Status DC Piperacillin Sod/ Tazobactam Sod (Zosyn Per Pharmacy) 1 each PRN DAILY PRN MC SEE COMMENTS; Start 01/07/19 at 21:00 Piperacillin Sod/ Tazobactam Sod 3.375 gm/Sodium Chloride 50 ml @ 100 mls/hr Q6HRS IV Last administered on 01/16/19at 05:39; Start 01/07/19 at 22:00 Vancomycin HCl 2 gm/Sodium Chloride 500 ml @ 250 mls/hr 1X ONCE IV Last administered on 01/07/19at 22:11; Start 01/07/19 at 22:00; Stop 01/07/19 at 23:59; Status DC Lorazepam (Ativan Inj) 1 mg 1X ONCE IV Last administered on 01/07/19at 23:22; Start 01/07/19 at 23:30; Stop 01/07/19 at 23:31; Status DC Lorazepam (Ativan Inj) 2 mg STK-MED ONCE .ROUTE ; Start 01/07/19 at 23:20; Stop 01/07/19 at 23:21; Status DC Vancomycin HCl 1.5 gm/Sodium Chloride 500 ml @ 250 mls/hr Q12H IV ; Start 01/08/19 at 10:00; Stop 01/08/19 at 06:39; Status DC Vancomycin HCl (Vancomycin Trough Level) 1 each 1X ONCE MC ; Start 01/09/19 at 09:30; Stop 01/09/19 at 09:31; Status Cancel Ondansetron HCl (Zofran) 4 mg PRN Q6HRS PRN IVP NAUSEA/VOMITING; Start 01/08/19 at 04:00; Status Cancel Pantoprazole Sodium 80 mg/ Sodium Chloride 100 ml @ 10 mls/hr Q10H IV Last administered on 01/09/19at 02:00; Start 01/08/19 at 06:00; Stop 01/09/19 at 11:00; Status DC Multivitamins 10 ml/Thiamine HCl 100 mg/Folic Acid 1 mg/Sodium Chloride 1,011.2 ml @ 100 mls/ hr DAILY IV Last administered on 01/12/19at 10:29; Start 01/08/19 at 09:00; Stop 01/12/19 at 19:07; Status DC Lorazepam (Ativan Inj) 2 mg PRN Q1HR PRN IV For CIWA 8-14 Last administered on 01/14/19at 21:01; Start 01/08/19 at 07:15 Lorazepam (Ativan Inj) 4 mg PRN Q1HR PRN IV For CIWA 15 or greater Last administered on 01/15/19at 08:40; Start 01/08/19 at 07:15 Haloperidol Lactate (Haldol Inj) 5 mg PRN Q4HRS PRN IVP Hallucinatns,Confusn,Delirium; Start 01/08/19 at 07:15 Diphenhydramine HCl (Benadryl) 25 mg PRN Q15MIN PRN IVP EPS symptoms 2'Haldol admin; Start 01/08/19 at 07:15 Clonidine HCl (Catapres) 0.1 mg PRN Q1HR PRN PO SBP > 180 or DBP > 100, MRX3; Start 01/08/19 at 07:15 Sodium Bicarbonate (Sodium Bicarb Adult 8.4% Syr) 50 meq 1X ONCE IV Last administered on 01/08/19at 08:04; Start 01/08/19 at 08:00; Stop 01/08/19 at 08:01; Status DC Propofol 100 ml @ As Directed STK-MED ONCE IV ; Start 01/08/19 at 08:19; Stop 01/08/19 at 08:19; Status DC Succinylcholine Chloride (Anectine) 200 mg STK-MED ONCE .ROUTE ; Start 01/08/19 at 08:19; Stop 01/08/19 at 08:19; Status DC Propofol 100 ml @ As Directed STK-MED ONCE IV ; Start 01/08/19 at 08:29; Stop 01/08/19 at 08:30; Status DC Fentanyl Citrate 30 ml @ 0 mls/hr CONT PRN PRN IV PER PROTOCOL Last administered on 01/16/19at 05:38; Start 01/08/19 at 09:00 Naloxone HCl (Narcan) 0.4 mg PRN Q2MIN PRN IV SEE INSTRUCTIONS; Start 01/08/19 at 09:00 Sodium Chloride 1,000 ml @ 25 mls/hr Q24H IV Last administered on 01/15/19at 16:08; Start 01/08/19 at 08:54 Fentanyl Citrate (Fentanyl 2ml Vial) 100 mcg STK-MED ONCE .ROUTE ; Start 01/08/19 at 08:55; Stop 01/08/19 at 08:55; Status DC Octreotide Acetate 500 mcg/ Sodium Chloride 101 ml @ 0 mls/hr CONT PRN IV SEE I/O RECORD Last administered on 01/08/19at 13:56; Start 01/08/19 at 09:00; Stop 01/08/19 at 16:55; Status DC Phytonadione (Vitamin K Ampule) 10 mg 1X ONCE SQ Last administered on 9at 09:56; Start 01/08/19 at 09:15; Stop 01/08/19 at 09:16; Status DC Metoclopramide HCl (Reglan Vial) 10 mg 1X ONCE IVP Last administered on 01/08/19at 14:36; Start 01/08/19 at 11:00; Stop 01/08/19 at 11:01; Status DC Midazolam HCl (Versed) 5 mg STK-MED ONCE .ROUTE ; Start 01/08/19 at 09:00; Stop 01/08/19 at 09:01; Status DC Acetaminophen (Tylenol) 500 mg PRN Q6HRS PRN PO MILD PAIN / TEMP Last administered on 01/11/19at 17:46; Start 01/08/19 at 09:15; Stop 01/13/19 at 09:11; Status DC Tramadol HCl (Ultram) 50 mg PRN Q6HRS PRN PO PAIN MODERATE; Start 01/08/19 at 09:15 Morphine Sulfate (Morphine Sulfate) 2 mg PRN Q2HR PRN IV PAIN; Start 01/08/19 at 09:15 Ondansetron HCl (Zofran) 4 mg PRN Q6HRS PRN IVP NAUSEA/VOMITING, 1ST CHOICE; Start 01/08/19 at 09:15 Fentanyl Citrate (Fentanyl 2ml Vial) 100 mcg 1X ONCE IVP Last administered on 01/08/19 09:42; Start 01/08/19 at 09:45; Stop 01/08/19 at 09:46; Status DC Midazolam HCl (Versed) 5 mg 1X ONCE IV Last administered on 01/08/19 09:41; Start 01/08/19 at 09:45; Stop 01/08/19 at 09:46; Status DC Succinylcholine Chloride (Anectine) 200 mg 1X ONCE IV Last administered on 01/08/19 09:41; Start 01/08/19 at 09:45; Stop 01/08/19 at 09:46; Status DC Propofol 100 ml @ 1.524 mls/ hr CONT PRN IV SEE I/O RECORD Last administered on 01/14/19 03:56; Start 01/08/19 at 09:45 Midazolam HCl 100 ml @ 5 mls/hr CONT PRN IV SEE I/O RECORD Last administered on 01/16/19at 02:53; Start 01/08/19 at 11:15 Vecuronium Aurelia (Norcuron Bolus) 6 mg PRN Q4HRS PRN IV VENT ASYNCHRONY Last administered on 01/16/19 06:44; Start 01/08/19 at 12:00 Benzocaine (Hurricaine One) 2 spray STK-MED ONCE .ROUTE ; Start 01/07/19 at 12:00; Stop 01/08/19 at 14:20; Status DC Lidocaine HCl (Xylocaine 2% Topical 5gm Tube) 5 amanda STK-MED ONCE TP ; Start 01/07/19 at 12:00; Stop 01/08/19 at 14:20; Status DC Lactobacillus Rhamnosus (Culturelle) 1 cap BID PO ; Start 01/08/19 at 21:00; Stop 01/09/19 at 09:29; Status DC Acetaminophen (Tylenol Supp) 650 mg PRN Q6HRS PRN LA MILD PAIN / TEMP Last administered on 01/09/19at 23:44; Start 01/08/19 at 18:15 Norepinephrine Bitartrate 250 ml @ 18.938 mls/ hr CONT PRN IV SEE I/O RECORD Last administered on 01/15/19at 17:44; Start 01/09/19 at 01:45 Potassium Chloride (Klor-Con) 40 meq 1X ONCE PO Last administered on 01/09/19at 11:34; Start 01/09/19 at 09:45; Stop 01/09/19 at 09:46; Status DC Metoclopramide HCl (Reglan Vial) 10 mg PRN Q6HRS PRN IVP NAUSEA/VOMITING, 2ND CHOICE Last administered on 01/14/19at 21:01; Start 01/09/19 at 10:15 Albumin Human 100 ml @ 100 mls/hr 1X ONCE IV Last administered on 01/09/19at 10:49; Start 01/09/19 at 10:15; Stop 01/09/19 at 11:14; Status DC Lactulose (LACTULOSE 300ML for RECTAL) 200 gm Q6HRS LA ; Start 01/09/19 at 12:00; Stop 01/09/19 at 11:04; Status DC Insulin Human Lispro (HumaLOG) 0-9 UNITS TIDWMEALS SQ ; Start 01/09/19 at 12:00 Dextrose (Dextrose 50%-Water Syringe) 12.5 gm PRN Q15MIN PRN IV SEE COMMENTS; Start 01/09/19 at 10:30 Fentanyl Citrate (Fentanyl 600 Mcg/30 ml BENEFIT SPECIALIST) 600 mcg STK-MED ONCE IV ; Start 01/08/19 at 15:25; Stop 01/09/19 at 10:27; Status DC Pantoprazole Sodium (PROTONIX VIAL for IV PUSH) 40 mg DAILYAC IVP Last administered on 01/15/19at 08:14; Start 01/10/19 at 07:30 Lactulose (Lactulose) 20 gm DAILY PO Last administered on 01/12/19at 08:24; Start 01/09/19 at 11:30; Stop 01/12/19 at 10:12; Status DC Potassium Bicarbonate (Potassium Effervescent Tablet) 40 meq BIDWMEALS FT Last administered on 01/10/19at 17:49; Start 01/10/19 at 09:00; Stop 01/11/19 at 09:20; Status DC Linezolid/Dextrose 300 ml @ 300 mls/hr Q12HR IV Last administered on 01/15/19at 20:38; Start 01/11/19 at 13:00 Perflutren Protein Type A Microsphe (Optison) 0.66 mg 1X ONCE IV ; Start 01/11/19 at 13:30; Stop 01/11/19 at 13:31; Status DC Albumin Human 100 ml @ 100 mls/hr 1X ONCE IV Last administered on 01/12/19at 08:25; Start 01/12/19 at 07:45; Stop 01/12/19 at 08:44; Status DC Lactulose (Lactulose) 20 gm PRN DAILY PRN PO constipation; Start 01/12/19 at 10:15; Stop 01/13/19 at 09:11; Status DC Acetaminophen (Tylenol) 650 mg PRN Q6HRS PRN PEG MILD PAIN / TEMP Last administered on 01/14/19at 09:11; Start 01/12/19 at 16:30 Lactulose (Lactulose) 20 gm TID PO Last administered on 01/14/19at 21:01; Start 01/13/19 at 10:00 Albumin Human 500 ml @ 125 mls/hr 1X ONCE IV Last administered on 01/13/19at 09:40; Start 01/13/19 at 10:00; Stop 01/13/19 at 13:59; Status DC Bisacodyl (Dulcolax Supp) 10 mg 1X ONCE LA Last administered on 01/13/19at 10:14; Start 01/13/19 at 11:00; Stop 01/13/19 at 11:01; Status DC Lidocaine HCl (Buffered Lidocaine 1%) 3 ml 1X ONCE INJ Last administered on 01/13/19at 11:00; Start 01/13/19 at 11:00; Stop 01/13/19 at 11:01; Status DC Heparin Sodium (Porcine) (Heparin Sodium) 10,000 unit STK-MED ONCE .ROUTE ; Start 01/13/19 at 10:59; Stop 01/13/19 at 11:00; Status DC Darbepoetin Giorgi (ARANESP for DIALYSIS PTS) 60 mcg WEEKLYHS SQ Last administered on 01/13/19at 20:46; Start 01/13/19 at 21:00 Info (Tpn Per Pharmacy) 1 each PRN DAILY PRN MC SEE COMMENTS Last administered on 01/15/19at 14:20; Start 01/13/19 at 11:15 Sodium Chloride 1,000 ml @ 1,000 mls/hr Q1H PRN IV hypotension; Start 01/13/19 at 11:30; Stop 01/13/19 at 19:00; Status DC Albumin Human 200 ml @ 200 mls/hr 1X PRN PRN IV Hypotension; Start 01/13/19 at 11:30; Stop 01/13/19 at 17:29; Status DC Sodium Chloride 1,000 ml @ 400 mls/hr Q2H30M PRN IV PATENCY; Start 01/13/19 at 11:30; Stop 01/13/19 at 19:00; Status DC Info (PHARMACY MONITORING -- do not chart) 1 each PRN DAILY PRN MC SEE COMMENTS; Start 01/13/19 at 11:30 Info (PHARMACY MONITORING -- do not chart) 1 each PRN DAILY PRN MC SEE LAURI NTS; Start 01/13/19 at 11:30; Status UNV Sodium Acetate 40 meq/Potassium Acetate 30 meq/ Calcium Gluconate 10 meq/ Multivitamins 10 ml/Chromium/ Copper/Manganese/ Seleni/Zn 1 ml/ Total Parenteral Nutrition/Amino Acids/Dextrose/ Fat Emulsion Intravenous 1,512 ml @ 63 mls/hr TPN CONT IV Last administered on 01/13/19at 21:54; Start 01/13/19 at 22:00; Stop 01/14/19 at 21:59; Status DC Multi-Ingred Cream/Lotion/Oil/ Oint (Artificial Tears Eye Ointment) 1 amanda PRN Q1HR PRN OU DRY EYE Last administered on 01/13/19at 17:14; Start 01/13/19 at 16:45 Docusate Sodium (Enemeez) 283 mg 1X ONCE LA Last administered on 01/13/19at 17:14; Start 01/13/19 at 16:45; Stop 01/13/19 at 16:47; Status DC Levofloxacin/ Dextrose 100 ml @ 100 mls/hr Q24H IV Last administered on 01/15/19 08:15; Start 01/14/19 at 09:00 Metoclopramide HCl (Reglan Vial) 5 mg 1X ONCE IVP Last administered on 12/20 10:51; Start 01/14/19 at 10:30; Stop 01/14/19 at 10:31; Status DC Dexmedetomidine HCl 400 mcg/ Sodium Chloride 100 ml @ 0 mls/hr CONT PRN IV AGITATION Last administered on 11/29/19at 07:35; Start 01/14/19 at 11:30 Sodium Chloride 1,000 ml @ 1,000 mls/hr Q1H PRN IV hypotension; Start 01/14/19 at 11:26; Stop 01/14/19 at 17:25; Status DC Albumin Human 200 ml @ 200 mls/hr 1X PRN PRN IV Hypotension; Start 01/14/19 at 11:30; Stop 01/14/19 at 17:29; Status DC Sodium Chloride 1,000 ml @ 400 mls/hr Q2H30M PRN IV PATENCY; Start 01/14/19 at 11:26; Stop 01/14/19 at 23:25; Status DC Info (PHARMACY MONITORING -- do not chart) 1 each PRN DAILY PRN MC SEE COMMENTS; Start 01/14/19 at 11:30; Status UNV Info (PHARMACY MONITORING -- do not chart) 1 each PRN DAILY PRN MC SEE COMMENTS; Start 01/14/19 at 11:30; Status UNV Sodium Chloride 30 meq/Sodium Acetate 40 meq/ Potassium Acetate 30 meq/Calcium Gluconate 10 meq/ Multivitamins 10 ml/Chromium/ Copper/Manganese/ Seleni/Zn 1 ml/ Total Parenteral Nutrition/Amino Acids/Dextrose/ Fat Emulsion Intravenous 1,512 ml @ 63 mls/hr TPN CONT IV Last administered on 01/15/19at 00:05; Start 01/14/19 at 22:00; Stop 01/15/19 at 21:59; Status DC Artificial Tears (Artificial Tears) 1 drop Q4H PRN OU DRY EYE Last administered on 01/14/19at 16:43; Start 01/14/19 at 15:30 Sodium Bicarbonate (Sodium Bicarb Adult 8.4% Syr) 50 meq STK-MED ONCE .ROUTE ; Start 01/15/19 at 08:25; Stop 01/15/19 at 08:25; Status DC Sodium Bicarbonate (Sodium Bicarb Adult 8.4% Syr) 100 meq 1X ONCE IV Last administered on 01/15/19at 08:31; Start 01/15/19 at 08:30; Stop 01/15/19 at 08:31; Status DC Sodium Chloride 40 meq/Sodium Acetate 40 meq/ Potassium Acetate 10 meq/Calcium Gluconate 10 meq/ Multivitamins 10 ml/Chromium/ Copper/Manganese/ Seleni/Zn 1 ml/ Total Parenteral Nutrition/Amino Acids/Dextrose/ Fat Emulsion Intravenous 1,512 ml @ 63 mls/hr TPN CONT IV ; Start 01/15/19 at 22:00; Stop 01/15/19 at 11:06; Status DC Vasopressin 40 unit/Dextrose 102 ml @ 6 mls/hr CONT PRN IV SEE I/O RECORD Last administered on 01/16/19at 01:04; Start 01/15/19 at 10:00 Sodium Chloride 1,000 ml @ 1,000 mls/hr Q1H PRN IV hypotension; Start 01/15/19 at 10:00; Stop 01/15/19 at 15:59; Status DC Albumin Human 200 ml @ 200 mls/hr 1X PRN PRN IV Hypotension Last administered on 01/15/19at 11:07; Start 01/15/19 at 10:00; Stop 01/15/19 at 15:59; Status DC Sodium Chloride 1,000 ml @ 400 mls/hr Q2H30M PRN IV PATENCY; Start 01/15/19 at 10:00; Stop 01/15/19 at 21:59; Status DC Info (PHARMACY MONITORING -- do not chart) 1 each PRN DAILY PRN MC SEE COMMENTS; Start 01/15/19 at 10:00; Stop 01/15/19 at 10:57; Status DC Info (PHARMACY MONITORING -- do not chart) 1 each PRN DAILY PRN MC SEE COMMENTS; Start 01/15/19 at 10:00; Stop 01/15/19 at 10:57; Status DC Sodium Chloride 40 meq/Sodium Acetate 40 meq/ Potassium Acetate 10 meq/Calcium Gluconate 10 meq/ Multivitamins 10 ml/Chromium/ Copper/Manganese/ Seleni/Zn 1 ml/ Thiamine HCl 100 mg/Total Parenteral Nutrition/Amino Acids/Dextrose/ Fat Emulsion Intravenous 1,512 ml @ 63 mls/hr TPN CONT IV ; Start 01/15/19 at 22:00; Stop 01/15/19 at 14:18; Status DC Potassium Chloride 20 meq/ Bicarbonate Dialysis Soln w/ out KCl 5,010 ml @ 1,000 mls/hr Q5H1M IV Last administered on 01/15/19at 15:40; Start 01/15/19 at 14:00; Stop 01/15/19 at 19:00; Status DC Potassium Chloride 20 meq/ Bicarbonate Dialysis Soln w/ out KCl 5,010 ml @ 1,000 mls/hr Q5H1M IV Last administered on 01/15/19at 15:50; Start 01/15/19 at 14:00; Stop 01/15/19 at 19:00; Status DC Potassium Chloride 20 meq/ Bicarbonate Dialysis Soln w/ out KCl 5,010 ml @ 1,000 mls/hr Q5H1M IV Last administered on 01/15/19at 15:50; Start 01/15/19 at 14:00; Stop 01/15/19 at 19:00; Status DC Albumin Human 100 ml @ 100 mls/hr Q6HRS IV Last administered on 01/16/19at 05:39; Start 01/15/19 at 14:00 Potassium Phosphate 20 mmol/ Sodium Chloride 256.6667 ml @ 128.... PRN Q6HRS PRN IV FOR PO4 < 2.5; Start 01/15/19 at 14:00 Sodium Chloride 40 meq/Sodium Acetate 40 meq/ Calcium Gluconate 10 meq/ Multiv itamins 10 ml/Chromium/ Copper/Manganese/ Seleni/Zn 1 ml/ Thiamine HCl 100 mg/Total Parenteral Nutrition/Amino Acids/Dextrose/ Fat Emulsion Intravenous 1,512 ml @ 63 mls/hr TPN CONT IV Last administered on 01/15/19at 21:45; Start 01/15/19 at 22:00 Potassium Chloride 20 meq/ Bicarbonate Dialysis Soln w/ out KCl 5,010 ml @ 1,200 mls/hr Q4H11M IV Last administered on 01/16/19at 03:39; Start 01/15/19 at 19:01 Potassium Chloride 20 meq/ Bicarbonate Dialysis Soln w/ out KCl 5,010 ml @ 1,200 mls/hr Q4H11M IV Last administered on 01/16/19at 03:38; Start 01/15/19 at 19:01 Potassium Chloride 20 meq/ Bicarbonate Dialysis Soln w/ out KCl 5,010 ml @ 1,200 mls/hr Q4H11M IV Last administered on 01/16/19at 03:39; Start 01/15/19 at 19:00 Vitals/I & O Vital Sign - Last 24 Hours 01/15/19 01/15/19 01/15/19 01/15/19 08:00 08:00 08:24 08:25 Temp 98.4 98.4 Pulse 110 Resp 21 22 B/P (MAP) 83/47 (59) Pulse Ox 91 90 91 O2 Delivery Mechanical Ventilator Ventilator Ventilator Ventilator 01/15/19 01/15/19 01/15/19 01/15/19 09:00 09:17 09:58 10:00 Pulse 110 112 Resp 24 24 24 B/P (MAP) 91/45 (60) 98/52 (67) Pulse Ox 86 84 95 95 O2 Delivery Ventilator Ventilator Ventilator Ventilator 01/15/19 01/15/19 01/15/19 01/15/19 10:57 11:00 11:47 12:00 Temp 98.4 98.4 Pulse 115 111 Resp 24 24 B/P (MAP) 90/51 (64) 87/47 (60) Pulse Ox 90 90 86 O2 Delivery Ventilator Ventilator Mechanical Ventilator Ventilator 01/15/19 01/15/19 01/15/19 01/15/19 13:00 13:33 14:00 14:34 Pulse 114 117 Resp 24 24 24 B/P (MAP) 90/56 (67) 119/59 (79) Pulse Ox 95 96 95 100 O2 Delivery Ventilator Ventilator Ventilator Ventilator 01/15/19 01/15/19 01/15/19 01/15/19 15:00 15:05 15:08 16:00 Pulse 114 Resp 24 24 B/P (MAP) 127/65 (85) Pulse Ox 100 99 100 O2 Delivery Ventilator Ventilator Ventilator Mechanical Ventilator 01/15/19 01/15/19 01/15/19 01/15/19 16:00 17:00 17:19 18:00 Temp 98.8 98.8 Pulse 112 101 99 Resp 24 24 24 B/P (MAP) 117/56 (76) 98/51 (67) 119/54 (75) Pulse Ox 100 100 99 98 O2 Delivery Ventilator Ventilator Ventilator Ventilator 01/15/19 01/15/19 01/15/19 01/15/19 19:00 19:56 20:00 20:00 Temp 97.0 97.0 Pulse 91 84 Resp 23 24 B/P (MAP) 114/63 (80) 144/67 (92) Pulse Ox 100 100 100 O2 Delivery Ventilator Ventilator Mechanical Ventilator Ventilator 01/15/19 01/15/19 01/15/19 01/15/19 20:21 20:51 21:00 22:00 Pulse 86 85 Resp 12 24 24 B/P (MAP) 136/69 (91) 99/38 (58) Pulse Ox 100 100 100 100 O2 Delivery Ventilator BiPAP/CPAP Ventilator Ventilator 01/15/19 01/15/19 01/15/19 01/16/19 22:20 23:00 23:59 00:00 Temp 96.7 96.7 Pulse 78 78 Resp 24 24 B/P (MAP) 96/56 (69) 138/69 (92) Pulse Ox 100 100 100 O2 Delivery Ventilator Ventilator Mechanical Ventilator Ventilator 01/16/19 01/16/19 01/16/19 01/16/19 00:37 01:00 02:00 02:33 Pulse 80 74 Resp 24 24 B/P (MAP) 142/93 (109) 131/53 (79) Pulse Ox 100 100 100 100 O2 Delivery Ventilator Ventilator Ventilator Ventilator O2 Flow Rate 2.0 01/16/19 01/16/19 01/16/19 01/16/19 03:00 03:03 03:06 04:00 Pulse 74 Resp 24 B/P (MAP) 111/47 (68) Pulse Ox 100 100 100 O2 Delivery Ventilator Ventilator Ventilator Mechanical Ventilator 01/16/19 01/16/19 01/16/19 01/16/19 04:00 05:00 05:38 05:41 Temp 96.3 96.3 Pulse 80 78 Resp 24 24 B/P (MAP) 122/55 (77) 97/40 (59) Pulse Ox 91 90 90 91 O2 Delivery Ventilator Ventilator Ventilator Ventilator O2 Flow Rate 2.0 01/16/19 01/16/19 06:00 06:09 Pulse 79 Resp 24 B/P (MAP) 87/46 (60) Pulse Ox 90 90 O2 Delivery Ventilator Ventilator Intake and Output 01/15/19 01/15/19 01/16/19 15:00 23:00 07:00 Intake Total 500 ml 27273.75 ml 68942 ml Output Total 20 ml 0 ml 0 ml Balance 480 ml 22161.75 ml 48453 ml Images CXR - 01/16/19 - Findings of interstitial pulmonary edema with consolidative opacities in the right lung base which may be from atelectasis or pneumonia. MERLE MEYER MD Jan 16, 2019 07:59
[2019-01-16] MEDS: INSULIN LISPRO 300 UNITS/3 ML VIAL. SQ SCH ×3 (08:00→17:00)
[2019-01-16] MEDS: PANTOPRAZOLE IV PUSH 40 MG VIAL. IVP SCH (08:25)
--- NOTE | 2019-01-16 08:28 | RAD ---
Indication: Patient on ventilation. TECHNIQUE:Portable AP chest X-ray COMPARISON: 01/15/2019 FINDINGS: Stable position of ET tube, NG tube and right-sided central venous catheters. Heart is normal in size. Diffuse is tissue opacities bilaterally with more consolidative opacities in the right lung base. No pneumothorax. Visualized bony thorax within normal limits. IMPRESSION: Findings of interstitial pulmonary edema with consolidative opacities in the right lung base which may be from atelectasis or pneumonia. Electronically signed by: Rogelio Jackson DO (01/16/2019 8:25 AM) [id number]
--- NOTE | 2019-01-16 08:33 | PDOC ---
Infectious Disease Note Subjective Subjective Sedated Orally intubated ROS ROS no n/v/d/fever still on very high o2 Vital Sign Vital Signs Vital Signs Date Time Temp Pulse Resp B/P (MAP) Pulse Ox O2 Delivery O2 Flow Rate FiO2 01/16/19 06:09 90 Ventilator 01/16/19 06:00 79 24 87/46 (60) 01/16/19 05:38 2.0 01/16/19 04:00 96.3 96.3 Physical Exam PHYSICAL EXAM GENERAL: Orally intubated and sedated, mitts HEENT: Pupils equal, ETT and OGT Heart : S1 S2 tachy ABDOMEN: Obese, soft, hypoactive BS : - [place] EXTREMITIES: Trace edema lower extremities bilaterally. LLE ecchymosis. SKIN: Warm to touch. No rash , bruising /subcut hematoma NEUROLOGIC: Sedated PIV s clean Labs Lab Laboratory Tests Test 01/15/19 08:55 01/15/19 09:15 01/15/19 11:13 01/15/19 12:10 White Blood Count 39.6 x10^3/uL (4.0-11.0) Red Blood Count 2.69 x10^6/uL (4.30-5.70) Hemoglobin 8.9 g/dL (13.0-17.5) Hematocrit 28.0 % (39.0-53.0) Mean Corpuscular Volume 104 fL (79-100) Mean Corpuscular Hemoglobin 33 pg (25-35) Mean Corpuscular Hemoglobin Concent 32 g/dL (31-37) Red Cell Distribution Width 19.0 % (11.5-14.5) Platelet Count 148 x10^3/uL (140-400) Lactic Acid Level 11.2 mmol/L (0.4-2.0) O2 Saturation 80 % (92-99) Arterial Blood pH 7.32 (7.35-7.45) Arterial Blood pCO2 at Patient Temp 38 mmHg (35-46) Arterial Blood pO2 at Patient Temp 48 mmHg (85-108) Arterial Blood HCO3 19 mmol/L (21-28) Arterial Blood Base Excess -6 mmol/L (-3-3) FiO2 100% Glucose (Fingerstick) 79 mg/dL (70-99) Test 01/15/19 15:00 01/15/19 16:37 01/15/19 17:45 01/15/19 20:00 O2 Saturation 93 % (92-99) 94 % (92-99) Arterial Blood pH 7.42 (7.35-7.45) 7.40 (7.35-7.45) Arterial Blood pCO2 at Patient Temp 32 mmHg (35-46) 32 mmHg (35-46) Arterial Blood pO2 at Patient Temp 67 mmHg (85-108) 77 mmHg (85-108) Arterial Blood HCO3 21 mmol/L (21-28) 20 mmol/L (21-28) Arterial Blood Base Excess -3 mmol/L (-3-3) -5 mmol/L (-3-3) FiO2 100% 100 Glucose (Fingerstick) 91 mg/dL (70-99) Sodium Level 138 mmol/L (136-145) Potassium Level 4.1 mmol/L (3.5-5.1) Chloride Level 98 mmol/L (98-107) Carbon Dioxide Level 22 mmol/L (21-32) Anion Gap 18 (6-14) Blood Urea Nitrogen 42 mg/dL (8-26) Creatinine 2.3 mg/dL (0.7-1.3) Estimated GFR (Cockcroft-Gault) 32.0 Glucose Level 89 mg/dL (70-99) Calcium Level 7.1 mg/dL (8.5-10.1) Phosphorus Level 4.4 mg/dL (2.6-4.7) Magnesium Level 2.1 mg/dL (1.8-2.4) Test 01/15/19 23:58 01/16/19 00:01 01/16/19 05:30 Glucose (Fingerstick) 147 mg/dL (70-99) Sodium Level 136 mmol/L (136-145) 136 mmol/L (136-145) Potassium Level 4.2 mmol/L (3.5-5.1) 4.4 mmol/L (3.5-5.1) Chloride Level 97 mmol/L (98-107) 98 mmol/L (98-107) Carbon Dioxide Level 23 mmol/L (21-32) 22 mmol/L (21-32) Anion Gap 16 (6-14) 16 (6-14) Blood Urea Nitrogen 35 mg/dL (8-26) 34 mg/dL (8-26) Creatinine 2.0 mg/dL (0.7-1.3) 1.9 mg/dL (0.7-1.3) Estimated GFR (Cockcroft-Gault) 37.6 39.9 Glucose Level 154 mg/dL (70-99) 133 mg/dL (70-99) Calcium Level 7.1 mg/dL (8.5-10.1) 7.4 mg/dL (8.5-10.1) Phosphorus Level 3.6 mg/dL (2.6-4.7) 4.1 mg/dL (2.6-4.7) Magnesium Level 2.2 mg/dL (1.8-2.4) 2.4 mg/dL (1.8-2.4) White Blood Count 28.5 x10^3/uL (4.0-11.0) Red Blood Count 2.53 x10^6/uL (4.30-5.70) Hemoglobin 8.4 g/dL (13.0-17.5) Hematocrit 26.0 % (39.0-53.0) Mean Corpuscular Volume 103 fL (79-100) Mean Corpuscular Hemoglobin 33 pg (25-35) Mean Corpuscular Hemoglobin Concent 32 g/dL (31-37) Red Cell Distribution Width 18.6 % (11.5-14.5) Platelet Count 111 x10^3/uL (140-400) Neutrophils (%) (Auto) 84 % (31-73) Lymphocytes (%) (Auto) 12 % (24-48) Monocytes (%) (Auto) 3 % (0-9) Eosinophils (%) (Auto) 0 % (0-3) Basophils (%) (Auto) 1 % (0-3) Neutrophils # (Auto) 24.1 x10^3/uL (1.8-7.7) Lymphocytes # (Auto) 3.3 x10^3/uL (1.0-4.8) Monocytes # (Auto) 0.8 x10^3/uL (0.0-1.1) Eosinophils # (Auto) 0.1 x10^3/uL (0.0-0.7) Basophils # (Auto) 0.2 x10^3/uL (0.0-0.2) Lactic Acid Level 10.1 mmol/L (0.4-2.0) Micro Microbiology 01/08/19 Blood Culture - Preliminary, Resulted NO GROWTH AFTER 3 DAYS 01/08/19 Urine Culture - Final, Complete 01/08/19 Urine Culture Result 1 (ELMA) - Final, Complete Objective Assessment Hypotension - Fever - likely sec to Withdrawal and mycoplasma Leukocytosis - ? reactive, improved Lactic acidosis - better Resp failure now intubated ? UTI. cultures neg Anemia - s/p PRBCs GI Bleed - s/p EGD 01/08 - Reflux esophagitis. ? recent M-W tear. Alcoholic gastritis. Hepatic failure ? pancreatitis Rhabdo CK 965 ETOH abuse with mild ascites Electrolyte abnormalities Obstructive resp issues Left leg echymosis DOMONIQUE Mycoplasma + Plan Plan of Care Cont Zosyn. and levaquin, change zyvox to dapto, since zyvox can cause lactic acidosis rarely Sputum culture in process repeat bc Critically ill LETTY ALEXIS MD Jan 16, 2019 08:33
[2019-01-16] MEDS: LACTULOSE 20 GM/30 ML SOLUTION. PO SCH ×3 (09:00→21:00)
[2019-01-16] MEDS: TPN PER PHARMACY MC PRN (09:22)
[2019-01-16] MEDS: DAPTOmycin (GENERIC) IVPB 500 MG in IV NORMAL SALINE 50ML 50 ML IV SCH (09:22)
[2019-01-16 09:46] LABS: BASE EXCESS ABG -9 mmol/L (-3-3); HCO3 ABG 19 mmol/L (21-28); PCO2 ABG 48 mmHg (35-46); PO2 ABG 52 mmHg (85-108); SAT O2 ABG 77 % (92-99)
[2019-01-16 09:47] LABS: FIO2 ABG 100
[2019-01-16] MEDS: NOREPINEPHRIN 8MG/250ML PREMIX 250 ML IV PRN ×2 (09:57→19:23)
--- NOTE | 2019-01-16 11:01 | PDOC ---
PULMONARY PROGRESS NOTES Subjective WORSENING HYPOXIA/ MET AND RESP ACIDOSIS , WORSENING CXR HEAVELY SEDATED ON PC MODE 14 PEEP 100 %, on propofol, versed, fentanyl, mod ett secretion ON levo, started on CRRT yesterday Vitals Vital Signs Date Time Temp Pulse Resp B/P (MAP) Pulse Ox O2 Delivery O2 Flow Rate FiO2 01/16/19 10:00 97.0 89 24 101/35 (57) 86 Ventilator 97.0 01/16/19 05:38 2.0 Comments ros as mentioned as above discussed w rn other sys otherwise neg on vent sedated Lungs: Other (decrease bs) Cardiovascular: S1, S2 Abdomen: Soft, Non-tender, Other (DISTENDED no mass) Extremities: Other (EDEMA) Skin: Warm Labs Laboratory Tests Test 01/14/19 12:31 01/14/19 16:58 01/15/19 05:30 01/15/19 08:00 Glucose (Fingerstick) 124 mg/dL (70-99) 102 mg/dL (70-99) White Blood Count 44.5 x10^3/uL (4.0-11.0) Red Blood Count 2.89 x10^6/uL (4.30-5.70) Hemoglobin 9.5 g/dL (13.0-17.5) Hematocrit 30.1 % (39.0-53.0) Mean Corpuscular Volume 104 fL (79-100) Mean Corpuscular Hemoglobin 33 pg (25-35) Mean Corpuscular Hemoglobin Concent 32 g/dL (31-37) Red Cell Distribution Width 18.6 % (11.5-14.5) Platelet Count 171 x10^3/uL (140-400) Neutrophils (%) (Auto) 82 % (31-73) Lymphocytes (%) (Auto) 16 % (24-48) Monocytes (%) (Auto) 2 % (0-9) Eosinophils (%) (Auto) 0 % (0-3) Basophils (%) (Auto) 1 % (0-3) Neutrophils # (Auto) 36.4 x10^3/uL (1.8-7.7) Lymphocytes # (Auto) 6.9 x10^3/uL (1.0-4.8) Monocytes # (Auto) 0.8 x10^3/uL (0.0-1.1) Eosinophils # (Auto) 0.1 x10^3/uL (0.0-0.7) Basophils # (Auto) 0.3 x10^3/uL (0.0-0.2) Segmented Neutrophils % 78 % (35-66) Band Neutrophils % 7 % (0-9) Lymphocytes % 10 % (24-48) Monocytes % 3 % (0-10) Metamyelocytes % 1 % (0-0) Myelocytes % 1 % (0-0) Toxic Granulation Mod Toxic Vacuolation Present Platelet Estimate Adequate (ADEQUATE) Large Platelets Few Anisocytosis Slight Prothrombin Time 17.9 SEC (11.7-14.0) Prothromb Time International Ratio 1.5 (0.8-1.1) Sodium Level 135 mmol/L (136-145) Potassium Level 5.6 mmol/L (3.5-5.1) Chloride Level 99 mmol/L (98-107) Carbon Dioxide Level 23 mmol/L (21-32) Anion Gap 13 (6-14) Blood Urea Nitrogen 62 mg/dL (8-26) Creatinine 3.1 mg/dL (0.7-1.3) Estimated GFR (Cockcroft-Gault) 22.7 BUN/Creatinine Ratio 20 (6-20) Glucose Level 84 mg/dL (70-99) Calcium Level 7.1 mg/dL (8.5-10.1) Phosphorus Level 7.8 mg/dL (2.6-4.7) Magnesium Level 2.5 mg/dL (1.8-2.4) Total Bilirubin 11.0 mg/dL (0.2-1.0) Aspartate Amino Transf (AST/SGOT) 232 U/L (15-37) Alanine Aminotransferase (ALT/SGPT) 81 U/L (16-63) Alkaline Phosphatase 134 U/L (46-116) Total Protein 5.9 g/dL (6.4-8.2) Albumin 1.3 g/dL (3.4-5.0) Albumin/Globulin Ratio 0.3 (1.0-1.7) O2 Saturation 84 % (92-99) Arterial Blood pH 7.14 (7.35-7.45) Arterial Blood pCO2 at Patient Temp 55 mmHg (35-46) Arterial Blood pO2 at Patient Temp 62 mmHg (85-108) Arterial Blood HCO3 18 mmol/L (21-28) Arterial Blood Base Excess -11 mmol/L (-3-3) FiO2 100 Test 01/15/19 08:03 01/15/19 08:55 01/15/19 09:15 01/15/19 11:13 Glucose (Fingerstick) 78 mg/dL (70-99) White Blood Count 39.6 x10^3/uL (4.0-11.0) Red Blood Count 2.69 x10^6/uL (4.30-5.70) Hemoglobin 8.9 g/dL (13.0-17.5) Hematocrit 28.0 % (39.0-53.0) Mean Corpuscular Volume 104 fL (79-100) Mean Corpuscular Hemoglobin 33 pg (25-35) Mean Corpuscular Hemoglobin Concent 32 g/dL (31-37) Red Cell Distribution Width 19.0 % (11.5-14.5) Platelet Count 148 x10^3/uL (140-400) Lactic Acid Level 11.2 mmol/L (0.4-2.0) O2 Saturation 80 % (92-99) Arterial Blood pH 7.32 (7.35-7.45) Arterial Blood pCO2 at Patient Temp 38 mmHg (35-46) Arterial Blood pO2 at Patient Temp 48 mmHg (85-108) Arterial Blood HCO3 19 mmol/L (21-28) Arterial Blood Base Excess -6 mmol/L (-3-3) FiO2 100% Test 01/15/19 12:10 01/15/19 15:00 01/15/19 16:37 01/15/19 17:45 Glucose (Fingerstick) 79 mg/dL (70-99) 91 mg/dL (70-99) O2 Saturation 93 % (92-99) Arterial Blood pH 7.42 (7.35-7.45) Arterial Blood pCO2 at Patient Temp 32 mmHg (35-46) Arterial Blood pO2 at Patient Temp 67 mmHg (85-108) Arterial Blood HCO3 21 mmol/L (21-28) Arterial Blood Base Excess -3 mmol/L (-3-3) FiO2 100% Sodium Level 138 mmol/L (136-145) Potassium Level 4.1 mmol/L (3.5-5.1) Chloride Level 98 mmol/L (98-107) Carbon Dioxide Level 22 mmol/L (21-32) Anion Gap 18 (6-14) Blood Urea Nitrogen 42 mg/dL (8-26) Creatinine 2.3 mg/dL (0.7-1.3) Estimated GFR (Cockcroft-Gault) 32.0 Glucose Level 89 mg/dL (70-99) Calcium Level 7.1 mg/dL (8.5-10.1) Phosphorus Level 4.4 mg/dL (2.6-4.7) Magnesium Level 2.1 mg/dL (1.8-2.4) Test 01/15/19 20:00 01/15/19 23:58 01/16/19 00:01 01/16/19 05:30 O2 Saturation 94 % (92-99) Arterial Blood pH 7.40 (7.35-7.45) Arterial Blood pCO2 at Patient Temp 32 mmHg (35-46) Arterial Blood pO2 at Patient Temp 77 mmHg (85-108) Arterial Blood HCO3 20 mmol/L (21-28) Arterial Blood Base Excess -5 mmol/L (-3-3) FiO2 100 Glucose (Fingerstick) 147 mg/dL (70-99) Sodium Level 136 mmol/L (136-145) 136 mmol/L (136-145) Potassium Level 4.2 mmol/L (3.5-5.1) 4.4 mmol/L (3.5-5.1) Chloride Level 97 mmol/L (98-107) 98 mmol/L (98-107) Carbon Dioxide Level 23 mmol/L (21-32) 22 mmol/L (21-32) Anion Gap 16 (6-14) 16 (6-14) Blood Urea Nitrogen 35 mg/dL (8-26) 34 mg/dL (8-26) Creatinine 2.0 mg/dL (0.7-1.3) 1.9 mg/dL (0.7-1.3) Estimated GFR (Cockcroft-Gault) 37.6 39.9 Glucose Level 154 mg/dL (70-99) 133 mg/dL (70-99) Calcium Level 7.1 mg/dL (8.5-10.1) 7.4 mg/dL (8.5-10.1) Phosphorus Level 3.6 mg/dL (2.6-4.7) 4.1 mg/dL (2.6-4.7) Magnesium Level 2.2 mg/dL (1.8-2.4) 2.4 mg/dL (1.8-2.4) White Blood Count 28.5 x10^3/uL (4.0-11.0) Red Blood Count 2.53 x10^6/uL (4.30-5.70) Hemoglobin 8.4 g/dL (13.0-17.5) Hematocrit 26.0 % (39.0-53.0) Mean Corpuscular Volume 103 fL (79-100) Mean Corpuscular Hemoglobin 33 pg (25-35) Mean Corpuscular Hemoglobin Concent 32 g/dL (31-37) Red Cell Distribution Width 18.6 % (11.5-14.5) Platelet Count 111 x10^3/uL (140-400) Neutrophils (%) (Auto) 84 % (31-73) Lymphocytes (%) (Auto) 12 % (24-48) Monocytes (%) (Auto) 3 % (0-9) Eosinophils (%) (Auto) 0 % (0-3) Basophils (%) (Auto) 1 % (0-3) Neutrophils # (Auto) 24.1 x10^3/uL (1.8-7.7) Lymphocytes # (Auto) 3.3 x10^3/uL (1.0-4.8) Monocytes # (Auto) 0.8 x10^3/uL (0.0-1.1) Eosinophils # (Auto) 0.1 x10^3/uL (0.0-0.7) Basophils # (Auto) 0.2 x10^3/uL (0.0-0.2) Lactic Acid Level 10.1 mmol/L (0.4-2.0) Test 01/16/19 09:25 01/16/19 09:40 Lactic Acid Level 9.7 mmol/L (0.4-2.0) O2 Saturation 77 % (92-99) Arterial Blood pH 7.22 (7.35-7.45) Arterial Blood pCO2 at Patient Temp 48 mmHg (35-46) Arterial Blood pO2 at Patient Temp 52 mmHg (85-108) Arterial Blood HCO3 19 mmol/L (21-28) Arterial Blood Base Excess -9 mmol/L (-3-3) FiO2 100 Laboratory Tests Test 01/15/19 11:13 01/15/19 12:10 01/15/19 15:00 01/15/19 16:37 O2 Saturation 80 % (92-99) 93 % (92-99) Arterial Blood pH 7.32 (7.35-7.45) 7.42 (7.35-7.45) Arterial Blood pCO2 at Patient Temp 38 mmHg (35-46) 32 mmHg (35-46) Arterial Blood pO2 at Patient Temp 48 mmHg (85-108) 67 mmHg (85-108) Arterial Blood HCO3 19 mmol/L (21-28) 21 mmol/L (21-28) Arterial Blood Base Excess -6 mmol/L (-3-3) -3 mmol/L (-3-3) FiO2 100% 100% Glucose (Fingerstick) 79 mg/dL (70-99) 91 mg/dL (70-99) Test 01/15/19 17:45 01/15/19 20:00 01/15/19 23:58 01/16/19 00:01 Sodium Level 138 mmol/L (136-145) 136 mmol/L (136-145) Potassium Level 4.1 mmol/L (3.5-5.1) 4.2 mmol/L (3.5-5.1) Chloride Level 98 mmol/L (98-107) 97 mmol/L (98-107) Carbon Dioxide Level 22 mmol/L (21-32) 23 mmol/L (21-32) Anion Gap 18 (6-14) 16 (6-14) Blood Urea Nitrogen 42 mg/dL (8-26) 35 mg/dL (8-26) Creatinine 2.3 mg/dL (0.7-1.3) 2.0 mg/dL (0.7-1.3) Estimated GFR (Cockcroft-Gault) 32.0 37.6 Glucose Level 89 mg/dL (70-99) 154 mg/dL (70-99) Calcium Level 7.1 mg/dL (8.5-10.1) 7.1 mg/dL (8.5-10.1) Phosphorus Level 4.4 mg/dL (2.6-4.7) 3.6 mg/dL (2.6-4.7) Magnesium Level 2.1 mg/dL (1.8-2.4) 2.2 mg/dL (1.8-2.4) O2 Saturation 94 % (92-99) Arterial Blood pH 7.40 (7.35-7.45) Arterial Blood pCO2 at Patient Temp 32 mmHg (35-46) Arterial Blood pO2 at Patient Temp 77 mmHg (85-108) Arterial Blood HCO3 20 mmol/L (21-28) Arterial Blood Base Excess -5 mmol/L (-3-3) FiO2 100 Glucose (Fingerstick) 147 mg/dL (70-99) Test 01/16/19 05:30 01/16/19 09:25 01/16/19 09:40 White Blood Count 28.5 x10^3/uL (4.0-11.0) Red Blood Count 2.53 x10^6/uL (4.30-5.70) Hemoglobin 8.4 g/dL (13.0-17.5) Hematocrit 26.0 % (39.0-53.0) Mean Corpuscular Volume 103 fL (79-100) Mean Corpuscular Hemoglobin 33 pg (25-35) Mean Corpuscular Hemoglobin Concent 32 g/dL (31-37) Red Cell Distribution Width 18.6 % (11.5-14.5) Platelet Count 111 x10^3/uL (140-400) Neutrophils (%) (Auto) 84 % (31-73) Lymphocytes (%) (Auto) 12 % (24-48) Monocytes (%) (Auto) 3 % (0-9) Eosinophils (%) (Auto) 0 % (0-3) Basophils (%) (Auto) 1 % (0-3) Neutrophils # (Auto) 24.1 x10^3/uL (1.8-7.7) Lymphocytes # (Auto) 3.3 x10^3/uL (1.0-4.8) Monocytes # (Auto) 0.8 x10^3/uL (0.0-1.1) Eosinophils # (Auto) 0.1 x10^3/uL (0.0-0.7) Basophils # (Auto) 0.2 x10^3/uL (0.0-0.2) Sodium Level 136 mmol/L (136-145) Potassium Level 4.4 mmol/L (3.5-5.1) Chloride Level 98 mmol/L (98-107) Carbon Dioxide Level 22 mmol/L (21-32) Anion Gap 16 (6-14) Blood Urea Nitrogen 34 mg/dL (8-26) Creatinine 1.9 mg/dL (0.7-1.3) Estimated GFR (Cockcroft-Gault) 39.9 Glucose Level 133 mg/dL (70-99) Lactic Acid Level 10.1 mmol/L (0.4-2.0) 9.7 mmol/L (0.4-2.0) Calcium Level 7.4 mg/dL (8.5-10.1) Phosphorus Level 4.1 mg/dL (2.6-4.7) Magnesium Level 2.4 mg/dL (1.8-2.4) O2 Saturation 77 % (92-99) Arterial Blood pH 7.22 (7.35-7.45) Arterial Blood pCO2 at Patient Temp 48 mmHg (35-46) Arterial Blood pO2 at Patient Temp 52 mmHg (85-108) Arterial Blood HCO3 19 mmol/L (21-28) Arterial Blood Base Excess -9 mmol/L (-3-3) FiO2 100 Comments cxr reviewed, 01/16 ett ok 1. Bilateral infiltrates worse on right Impression . IMPRESSION: 1. Acute respiratory failure, multifactorial, secondary to multiorgan failure. Now with worsening hypoxia/ hypercapnia.likely superimposed CHF/ underlying aspiration pneumonitis/ ARDS, no evidence of hepato-pulmonary shunt on Bubble echo 2. End-stage liver disease with persistent abnormal LFT 3. Multiorgan failure. 4. Renal failure. ? hepato renal syndrome, inititated CRRT 5. Acute gastrointestinal bleed.? MV Tear, stable Hb 6. sepsis. 7. Leukocytosis. marked increase, no fever, possible leukemoid reaction 8. Hematemesis.resolved 9. Rhabdomyolysis. 10. Alcohol abuse. 11. Ascites. 12. Electrolyte abnormalities. 13. fever,resolved Imaging: EGD 01/08 E--NO VARICES. Erosions distally c/w reflux/repeated emesis. One quite long narrow erosion which could have been a M-W. No active bleeding or clot. G--Not much retained blood after OG suction and Reglan. NO gastric varices. Linear erosions along the rugae in fundus and body c/w alcoholic or stress gastritis. Scattered "bruises" from OG tube. No ulcer, etc. D--Normal to second portion. IMP: Reflux esophagitis. ? recent M-W tear. Alcoholic gastritis. No active bleeding or clot seen. Plan . PC/ENZO PEEP of 14, cont 100 Fi02 titration, f/u ABG, I have increased driving pressure to 28 today. OK with permissive hypercapnia. will be ok with PH> 7.25 Not stable for Bronch, Not indicated at present 1. D/W Dr Allen Domínguez. UF. with CRRT 2. Continue BS antibiotics per Infectious Disease 3. F/U CXR 4. remains critical 5. Monitor hemoglobin and hematocrit. 6. Follow GI recommendation.f/u LFT 7. Alcohol withdrawal protocol. 8. Nutrition, on TPN, on CRRT / keeping neg on fluid balance 9. echo with bubble study Neg d/w family in detail and DR Gabriel/ Pt remains critically ill/ very poor prognosis FRED SMITH MD Jan 16, 2019 11:01
--- NOTE | 2019-01-16 11:41 | PDOC ---
Dialysis Progress Note Dialysis Note Dialysis Note Seen on CRRT tolerating treatment Okay so far Vitals on CRRT : 119/57 93 General Appearance: remains Sedated and intubated on the Vent Neck: No JVD or JVP Chest: CTA Librado Heart: S1 S2 Abdomen - Soft ? TTP Extremities - + 3 Edema DOMONIQUE/ ATN: Ct CRRT Resp Failure: on the Vent with ? ARDS. ct -ve fluid balance @ 100 cc/hr CXR from earlier today: COMPARISON: 01/15/2019 FINDINGS: Stable position of ET tube, NG tube and right-sided central venous catheters. Heart is normal in size. Diffuse is tissue opacities bilaterally with more consolidative opacities in the right lung base. No pneumothorax. Visualized bony thorax within normal limits. IMPRESSION: Findings of interstitial pulmonary edema with consolidative opacities in the right lung base which may be from atelectasis or pneumonia. Vitals Vital Signs Vital Signs Date Time Temp Pulse Resp B/P (MAP) Pulse Ox O2 Delivery O2 Flow Rate FiO2 01/16/19 10:00 97.0 89 24 101/35 (57) 86 Ventilator 97.0 01/16/19 05:38 2.0 Labs Last Labs Laboratory Tests Test 01/14/19 12:31 01/14/19 16:58 01/15/19 05:30 01/15/19 08:00 Glucose (Fingerstick) 124 mg/dL (70-99) 102 mg/dL (70-99) White Blood Count 44.5 x10^3/uL (4.0-11.0) Red Blood Count 2.89 x10^6/uL (4.30-5.70) Hemoglobin 9.5 g/dL (13.0-17.5) Hematocrit 30.1 % (39.0-53.0) Mean Corpuscular Volume 104 fL (79-100) Mean Corpuscular Hemoglobin 33 pg (25-35) Mean Corpuscular Hemoglobin Concent 32 g/dL (31-37) Red Cell Distribution Width 18.6 % (11.5-14.5) Platelet Count 171 x10^3/uL (140-400) Neutrophils (%) (Auto) 82 % (31-73) Lymphocytes (%) (Auto) 16 % (24-48) Monocytes (%) (Auto) 2 % (0-9) Eosinophils (%) (Auto) 0 % (0-3) Basophils (%) (Auto) 1 % (0-3) Neutrophils # (Auto) 36.4 x10^3/uL (1.8-7.7) Lymphocytes # (Auto) 6.9 x10^3/uL (1.0-4.8) Monocytes # (Auto) 0.8 x10^3/uL (0.0-1.1) Eosinophils # (Auto) 0.1 x10^3/uL (0.0-0.7) Basophils # (Auto) 0.3 x10^3/uL (0.0-0.2) Segmented Neutrophils % 78 % (35-66) Band Neutrophils % 7 % (0-9) Lymphocytes % 10 % (24-48) Monocytes % 3 % (0-10) Metamyelocytes % 1 % (0-0) Myelocytes % 1 % (0-0) Toxic Granulation Mod Toxic Vacuolation Present Platelet Estimate Adequate (ADEQUATE) Large Platelets Few Anisocytosis Slight Prothrombin Time 17.9 SEC (11.7-14.0) Prothromb Time International Ratio 1.5 (0.8-1.1) Sodium Level 135 mmol/L (136-145) Potassium Level 5.6 mmol/L (3.5-5.1) Chloride Level 99 mmol/L (98-107) Carbon Dioxide Level 23 mmol/L (21-32) Anion Gap 13 (6-14) Blood Urea Nitrogen 62 mg/dL (8-26) Creatinine 3.1 mg/dL (0.7-1.3) Estimated GFR (Cockcroft-Gault) 22.7 BUN/Creatinine Ratio 20 (6-20) Glucose Level 84 mg/dL (70-99) Calcium Level 7.1 mg/dL (8.5-10.1) Phosphorus Level 7.8 mg/dL (2.6-4.7) Magnesium Level 2.5 mg/dL (1.8-2.4) Total Bilirubin 11.0 mg/dL (0.2-1.0) Aspartate Amino Transf (AST/SGOT) 232 U/L (15-37) Alanine Aminotransferase (ALT/SGPT) 81 U/L (16-63) Alkaline Phosphatase 134 U/L (46-116) Total Protein 5.9 g/dL (6.4-8.2) Albumin 1.3 g/dL (3.4-5.0) Albumin/Globulin Ratio 0.3 (1.0-1.7) O2 Saturation 84 % (92-99) Arterial Blood pH 7.14 (7.35-7.45) Arterial Blood pCO2 at Patient Temp 55 mmHg (35-46) Arterial Blood pO2 at Patient Temp 62 mmHg (85-108) Arterial Blood HCO3 18 mmol/L (21-28) Arterial Blood Base Excess -11 mmol/L (-3-3) FiO2 100 Test 01/15/19 08:03 01/15/19 08:55 01/15/19 09:15 01/15/19 11:13 Glucose (Fingerstick) 78 mg/dL (70-99) White Blood Count 39.6 x10^3/uL (4.0-11.0) Red Blood Count 2.69 x10^6/uL (4.30-5.70) Hemoglobin 8.9 g/dL (13.0-17.5) Hematocrit 28.0 % (39.0-53.0) Mean Corpuscular Volume 104 fL (79-100) Mean Corpuscular Hemoglobin 33 pg (25-35) Mean Corpuscular Hemoglobin Concent 32 g/dL (31-37) Red Cell Distribution Width 19.0 % (11.5-14.5) Platelet Count 148 x10^3/uL (140-400) Lactic Acid Level 11.2 mmol/L (0.4-2.0) O2 Saturation 80 % (92-99) Arterial Blood pH 7.32 (7.35-7.45) Arterial Blood pCO2 at Patient Temp 38 mmHg (35-46) Arterial Blood pO2 at Patient Temp 48 mmHg (85-108) Arterial Blood HCO3 19 mmol/L (21-28) Arterial Blood Base Excess -6 mmol/L (-3-3) FiO2 100% Test 01/15/19 12:10 01/15/19 15:00 01/15/19 16:37 01/15/19 17:45 Glucose (Fingerstick) 79 mg/dL (70-99) 91 mg/dL (70-99) O2 Saturation 93 % (92-99) Arterial Blood pH 7.42 (7.35-7.45) Arterial Blood pCO2 at Patient Temp 32 mmHg (35-46) Arterial Blood pO2 at Patient Temp 67 mmHg (85-108) Arterial Blood HCO3 21 mmol/L (21-28) Arterial Blood Base Excess -3 mmol/L (-3-3) FiO2 100% Sodium Level 138 mmol/L (136-145) Potassium Level 4.1 mmol/L (3.5-5.1) Chloride Level 98 mmol/L (98-107) Carbon Dioxide Level 22 mmol/L (21-32) Anion Gap 18 (6-14) Blood Urea Nitrogen 42 mg/dL (8-26) Creatinine 2.3 mg/dL (0.7-1.3) Estimated GFR (Cockcroft-Gault) 32.0 Glucose Level 89 mg/dL (70-99) Calcium Level 7.1 mg/dL (8.5-10.1) Phosphorus Level 4.4 mg/dL (2.6-4.7) Magnesium Level 2.1 mg/dL (1.8-2.4) Test 01/15/19 20:00 01/15/19 23:58 01/16/19 00:01 01/16/19 05:30 O2 Saturation 94 % (92-99) Arterial Blood pH 7.40 (7.35-7.45) Arterial Blood pCO2 at Patient Temp 32 mmHg (35-46) Arterial Blood pO2 at Patient Temp 77 mmHg (85-108) Arterial Blood HCO3 20 mmol/L (21-28) Arterial Blood Base Excess -5 mmol/L (-3-3) FiO2 100 Glucose (Fingerstick) 147 mg/dL (70-99) Sodium Level 136 mmol/L (136-145) 136 mmol/L (136-145) Potassium Level 4.2 mmol/L (3.5-5.1) 4.4 mmol/L (3.5-5.1) Chloride Level 97 mmol/L (98-107) 98 mmol/L (98-107) Carbon Dioxide Level 23 mmol/L (21-32) 22 mmol/L (21-32) Anion Gap 16 (6-14) 16 (6-14) Blood Urea Nitrogen 35 mg/dL (8-26) 34 mg/dL (8-26) Creatinine 2.0 mg/dL (0.7-1.3) 1.9 mg/dL (0.7-1.3) Estimated GFR (Cockcroft-Gault) 37.6 39.9 Glucose Level 154 mg/dL (70-99) 133 mg/dL (70-99) Calcium Level 7.1 mg/dL (8.5-10.1) 7.4 mg/dL (8.5-10.1) Phosphorus Level 3.6 mg/dL (2.6-4.7) 4.1 mg/dL (2.6-4.7) Magnesium Level 2.2 mg/dL (1.8-2.4) 2.4 mg/dL (1.8-2.4) White Blood Count 28.5 x10^3/uL (4.0-11.0) Red Blood Count 2.53 x10^6/uL (4.30-5.70) Hemoglobin 8.4 g/dL (13.0-17.5) Hematocrit 26.0 % (39.0-53.0) Mean Corpuscular Volume 103 fL (79-100) Mean Corpuscular Hemoglobin 33 pg (25-35) Mean Corpuscular Hemoglobin Concent 32 g/dL (31-37) Red Cell Distribution Width 18.6 % (11.5-14.5) Platelet Count 111 x10^3/uL (140-400) Neutrophils (%) (Auto) 84 % (31-73) Lymphocytes (%) (Auto) 12 % (24-48) Monocytes (%) (Auto) 3 % (0-9) Eosinophils (%) (Auto) 0 % (0-3) Basophils (%) (Auto) 1 % (0-3) Neutrophils # (Auto) 24.1 x10^3/uL (1.8-7.7) Lymphocytes # (Auto) 3.3 x10^3/uL (1.0-4.8) Monocytes # (Auto) 0.8 x10^3/uL (0.0-1.1) Eosinophils # (Auto) 0.1 x10^3/uL (0.0-0.7) Basophils # (Auto) 0.2 x10^3/uL (0.0-0.2) Lactic Acid Level 10.1 mmol/L (0.4-2.0) Test 01/16/19 09:25 01/16/19 09:40 Lactic Acid Level 9.7 mmol/L (0.4-2.0) O2 Saturation 77 % (92-99) Arterial Blood pH 7.22 (7.35-7.45) Arterial Blood pCO2 at Patient Temp 48 mmHg (35-46) Arterial Blood pO2 at Patient Temp 52 mmHg (85-108) Arterial Blood HCO3 19 mmol/L (21-28) Arterial Blood Base Excess -9 mmol/L (-3-3) FiO2 100 Laboratory Tests Test 01/15/19 12:10 01/15/19 15:00 01/15/19 16:37 01/15/19 17:45 Glucose (Fingerstick) 79 mg/dL (70-99) 91 mg/dL (70-99) O2 Saturation 93 % (92-99) Arterial Blood pH 7.42 (7.35-7.45) Arterial Blood pCO2 at Patient Temp 32 mmHg (35-46) Arterial Blood pO2 at Patient Temp 67 mmHg (85-108) Arterial Blood HCO3 21 mmol/L (21-28) Arterial Blood Base Excess -3 mmol/L (-3-3) FiO2 100% Sodium Level 138 mmol/L (136-145) Potassium Level 4.1 mmol/L (3.5-5.1) Chloride Level 98 mmol/L (98-107) Carbon Dioxide Level 22 mmol/L (21-32) Anion Gap 18 (6-14) Blood Urea Nitrogen 42 mg/dL (8-26) Creatinine 2.3 mg/dL (0.7-1.3) Estimated GFR (Cockcroft-Gault) 32.0 Glucose Level 89 mg/dL (70-99) Calcium Level 7.1 mg/dL (8.5-10.1) Phosphorus Level 4.4 mg/dL (2.6-4.7) Magnesium Level 2.1 mg/dL (1.8-2.4) Test 01/15/19 20:00 01/15/19 23:58 01/16/19 00:01 01/16/19 05:30 O2 Saturation 94 % (92-99) Arterial Blood pH 7.40 (7.35-7.45) Arterial Blood pCO2 at Patient Temp 32 mmHg (35-46) Arterial Blood pO2 at Patient Temp 77 mmHg (85-108) Arterial Blood HCO3 20 mmol/L (21-28) Arterial Blood Base Excess -5 mmol/L (-3-3) FiO2 100 Glucose (Fingerstick) 147 mg/dL (70-99) Sodium Level 136 mmol/L (136-145) 136 mmol/L (136-145) Potassium Level 4.2 mmol/L (3.5-5.1) 4.4 mmol/L (3.5-5.1) Chloride Level 97 mmol/L (98-107) 98 mmol/L (98-107) Carbon Dioxide Level 23 mmol/L (21-32) 22 mmol/L (21-32) Anion Gap 16 (6-14) 16 (6-14) Blood Urea Nitrogen 35 mg/dL (8-26) 34 mg/dL (8-26) Creatinine 2.0 mg/dL (0.7-1.3) 1.9 mg/dL (0.7-1.3) Estimated GFR (Cockcroft-Gault) 37.6 39.9 Glucose Level 154 mg/dL (70-99) 133 mg/dL (70-99) Calcium Level 7.1 mg/dL (8.5-10.1) 7.4 mg/dL (8.5-10.1) Phosphorus Level 3.6 mg/dL (2.6-4.7) 4.1 mg/dL (2.6-4.7) Magnesium Level 2.2 mg/dL (1.8-2.4) 2.4 mg/dL (1.8-2.4) White Blood Count 28.5 x10^3/uL (4.0-11.0) Red Blood Count 2.53 x10^6/uL (4.30-5.70) Hemoglobin 8.4 g/dL (13.0-17.5) Hematocrit 26.0 % (39.0-53.0) Mean Corpuscular Volume 103 fL (79-100) Mean Corpuscular Hemoglobin 33 pg (25-35) Mean Corpuscular Hemoglobin Concent 32 g/dL (31-37) Red Cell Distribution Width 18.6 % (11.5-14.5) Platelet Count 111 x10^3/uL (140-400) Neutrophils (%) (Auto) 84 % (31-73) Lymphocytes (%) (Auto) 12 % (24-48) Monocytes (%) (Auto) 3 % (0-9) Eosinophils (%) (Auto) 0 % (0-3) Basophils (%) (Auto) 1 % (0-3) Neutrophils # (Auto) 24.1 x10^3/uL (1.8-7.7) Lymphocytes # (Auto) 3.3 x10^3/uL (1.0-4.8) Monocytes # (Auto) 0.8 x10^3/uL (0.0-1.1) Eosinophils # (Auto) 0.1 x10^3/uL (0.0-0.7) Basophils # (Auto) 0.2 x10^3/uL (0.0-0.2) Lactic Acid Level 10.1 mmol/L (0.4-2.0) Test 01/16/19 09:25 01/16/19 09:40 Lactic Acid Level 9.7 mmol/L (0.4-2.0) O2 Saturation 77 % (92-99) Arterial Blood pH 7.22 (7.35-7.45) Arterial Blood pCO2 at Patient Temp 48 mmHg (35-46) Arterial Blood pO2 at Patient Temp 52 mmHg (85-108) Arterial Blood HCO3 19 mmol/L (21-28) Arterial Blood Base Excess -9 mmol/L (-3-3) FiO2 100 Assessment Assessment Problems Medical Problems: (1) Acute hepatic encephalopathy Status: Acute (2) Acute upper GI bleed Status: Acute (3) Ascites Status: Acute (4) Hypokalemia Status: Acute (5) Multiple organ system failure Status: Acute (6) Severe sepsis with acute organ dysfunction Status: Acute Plan Plan of Care Problems Medical Problems: (1) Acute hepatic encephalopathy Status: Acute (2) Acute upper GI bleed Status: Acute (3) Ascites Status: Acute (4) Hypokalemia Status: Acute (5) Multiple organ system failure Status: Acute (6) Severe sepsis with acute organ dysfunction Status: Acute CHRISTINA ALEXIS MD Jan 16, 2019 11:41
[2019-01-16] MEDS: IV NORMAL SALINE 1000ML BAG 1,000 ML IV SCH (12:00)
--- NOTE | 2019-01-16 13:05 | RAD ---
Complete abdomen ultrasound HISTORY: Renal and hepatic failure. COMPARISON: Abdomen ultrasound January 09, 2019 FINDINGS: Most of the pancreas, aorta and IVC are obscured by bowel gas shadowing, visualized segment are normal. Mild surface irregularity of the liver raising suspicion of micronodular cirrhosis. No liver mass documented. There is a right pleural effusion. There is also mild perihepatic ascites. Hepatopedal portal vein blood flow is present. Extensive gallbladder sludge, no shadowing gallstones or inflammatory change of the gallbladder. No biliary ductal dilation common body diameters 3 mm. Elongation of the right hepatic lobe with a length of 23.5 cm. Right renal length 13.4 cm. Left renal length 15.3 cm. No renal mass or hydronephrosis. Normal renal cortical thickness and echogenicity. There is a small volume of ascites at the lower quadrants. Spleen mildly elongated with a length 14.0 cm. IMPRESSION: 1. Very small volume of ascites. 2. Liver cirrhosis. 3. Elongation of the liver and spleen, may indicate hepatosplenomegaly, as described above. 4. Both kidneys are prominent in size and may indicate nephromegaly. Secondarily this may be normal if the patient has a tall body habitus. Electronically signed by: Teddy Goodman MD (01/16/2019 1:02 PM) [id number]
[2019-01-16] MEDS: DEXTROSE 50% 25 GM / 50ML DISP.SYRIN. IV PRN (13:41)
[2019-01-16 16:38] LABS: CALCIUM 7.2 mg/dL (8.5-10.1); CREATININE 1.7 mg/dL (0.7-1.3); GFR 45.3; MAGNESIUM 2.4 mg/dL (1.8-2.4); PHOSPHORUS 4.1 mg/dL (2.6-4.7); POTASSIUM 4.4 mmol/L (3.5-5.1)
--- NOTE | 2019-01-16 16:44 | NUR ---
Pharmacy TPN Dosing Note S: ULI CARRIZALES is a 38 year old M Currently receiving Central Continuous TPN started 01/13/19 B:Pertinent PMH: Ileus, high residuals with tube feeding Height: 5 feet, 7 inches Weight: 108.527979 kg Current diet: LABS: Sodium: 136 Potassium: 4.4 Chloride: 98 Calcium: 7.4 Corrected Calcium: 9.56 Magnesium: 2.4 CO2: 22 SCr: 1.9 Glucose: 133 Albumin: 1.3 AST: 232 ALT: 81 TPN FORMULA: TPN TYPE: Central Continuous AMINO ACIDS: 100 gm DEXTROSE: 225 gm LIPIDS: 20 gm SODIUM CHLORIDE: 60 mEq SODIUM ACETATE: 40 mEq SODIUM PHOSPHATE: mmol POTASSIUM CHLORIDE: mEq POTASSIUM ACETATE: - mEq POTASSIUM PHOSPHATE: - mmol MAGNESIUM: - mEq CALCIUM: 10 mEq INSULIN: units MULTIPLE VITAMIN: 10 ml TRACE ELEMENTS: 1 ml(s) TPN PLAN: crrt started last night, 20 meq kcl to each bag. Will not add kcl/calcium to tpn.. R: Continue TPN AT 63ML/HR Will monitor electrolytes, glucose, and tolerance to TPN. ANT VYAS, [facility], 01/16/19 [id number]
[2019-01-16] MEDS: AMINO ACID IV SCH ×9 (22:00)
[2019-01-16] MEDS: TOTAL PARENTERAL NUTRITION IV SCH ×9 (22:00)
[2019-01-16] MEDS: [UNRECOGNIZED DRUG - OTHER] IV SCH ×9 (22:00)
[2019-01-16] MEDS: DEXTROSE 70% IV SCH ×9 (22:00)
[2019-01-16 22:46] LABS: CALCIUM 7.3 mg/dL (8.5-10.1); CREATININE 1.9 mg/dL (0.7-1.3); GFR 39.9; MAGNESIUM 2.4 mg/dL (1.8-2.4); PHOSPHORUS 3.6 mg/dL (2.6-4.7); POTASSIUM 4.6 mmol/L (3.5-5.1)
[2019-01-17] VITALS (24 sets, daily range): BP systolic 91–159; BP diastolic 36–66
[2019-01-17] MEDS: DEXMEDETOMIDINE 400 MCG in IV NORMAL SALINE 100ML 96 ML IV PRN ×5 (00:05→21:19)
[2019-01-17] MEDS: PIPERACILLIN/TAZOBACTAM 3.375 GM in IV NORMAL SALINE 50ML 50 ML IV SCH ×5 (00:05→23:39)
[2019-01-17] MEDS: ALBUMIN HUMAN 25% 100 ML IV SCH ×5 (00:06→23:38)
[2019-01-17] MEDS: POTASSIUM CHLORIDE 20 MEQ in DIALYSIS SOLUTION BGK 0/2.5 5,000 ML IV SCH ×14 (00:17→12:51)
[2019-01-17] MEDS: MIDAZOLAM 100mg/100ml NS BAG 100 ML IV PRN (04:01)
[2019-01-17 05:58] LABS: BASO # 0.1 x10^3/uL (0.0-0.2); BASO % 1 % (0-3); EOS # 0.1 x10^3/uL (0.0-0.7); EOS % 0 % (0-3); HEMATOCRIT 23.3 % (39.0-53.0); HEMOGLOBIN 7.4 g/dL (13.0-17.5); LYMPH # 3.1 x10^3/uL (1.0-4.8); LYMPH % 11 % (24-48); MEAN CORPUSCULAR HEMOGLOBIN 33 pg (25-35); MEAN CORPUSCULAR HGB CONC 32 g/dL (31-37); MEAN CORPUSCULAR VOLUME 105 fL (79-100); MONO # 0.7 x10^3/uL (0.0-1.1); MONO % 2 % (0-9); NEUT # 24.7 x10^3/uL (1.8-7.7); NEUT % 86 % (31-73); PLATELET COUNT 78 x10^3/uL (140-400); RED BLOOD COUNT 2.22 x10^6/uL (4.30-5.70); RED CELL DISTRIBUTION WIDTH 19.6 % (11.5-14.5); WHITE BLOOD COUNT 28.7 x10^3/uL (4.0-11.0)
[2019-01-17] MEDS: VECURONIUM BOLUS 10 MG VIAL. IV PRN ×3 (07:41→17:13)
[2019-01-17] MEDS: INSULIN LISPRO 300 UNITS/3 ML VIAL. SQ SCH ×3 (07:46→17:00)
[2019-01-17] MEDS: LACTULOSE 20 GM/30 ML SOLUTION. PO SCH ×3 (07:47→21:00)
[2019-01-17 08:13] LABS: CALCIUM 7.6 mg/dL (8.5-10.1); CREATININE 1.8 mg/dL (0.7-1.3); GFR 42.4; POTASSIUM 4.6 mmol/L (3.5-5.1)
[2019-01-17 08:15] LABS: BASE EXCESS ABG -10 mmol/L (-3-3); HCO3 ABG 16 mmol/L (21-28); PCO2 ABG 37 mmHg (35-46); PO2 ABG 63 mmHg (85-108); SAT O2 ABG 88 % (92-99)
[2019-01-17 08:17] LABS: MAGNESIUM 2.3 mg/dL (1.8-2.4); PHOSPHORUS 3.3 mg/dL (2.6-4.7)
[2019-01-17 08:17] LABS: FIO2 ABG 100
[2019-01-17] MEDS: PANTOPRAZOLE IV PUSH 40 MG VIAL. IVP SCH (08:20)
--- NOTE | 2019-01-17 09:05 | PDOC ---
Infectious Disease Note Subjective Subjective Now on CRRT Sedated Remains orall intubated, FiO2 100% PEEP 14 Hypotensive, on levophed No fevers TPN ROS ROS unobtainable Vital Sign Vital Signs Vital Signs Date Time Temp Pulse Resp B/P (MAP) Pulse Ox O2 Delivery O2 Flow Rate FiO2 01/17/19 08:00 98.4 110 24 128/45 (72) 96 Ventilator 98.4 Physical Exam PHYSICAL EXAM GENERAL: Orally intubated and sedated, CRRT HEENT: Pupils equal, ETT and OGT Heart : S1 S2 regular ABDOMEN: Obese, soft, hypoactive BS : - Pollard EXTREMITIES: Generalized edema. LLE ecchymosis. SKIN: Warm to touch. No rash NEUROLOGIC: Sedated Temp RIJ/HDC (01/13) clean PIV Labs Lab Laboratory Tests Test 01/16/19 09:25 01/16/19 09:40 01/16/19 13:33 01/16/19 14:15 Lactic Acid Level 9.7 mmol/L (0.4-2.0) O2 Saturation 77 % (92-99) Arterial Blood pH 7.22 (7.35-7.45) Arterial Blood pCO2 at Patient Temp 48 mmHg (35-46) Arterial Blood pO2 at Patient Temp 52 mmHg (85-108) Arterial Blood HCO3 19 mmol/L (21-28) Arterial Blood Base Excess -9 mmol/L (-3-3) FiO2 100 Glucose (Fingerstick) 89 mg/dL (70-99) 117 mg/dL (70-99) Test 01/16/19 15:30 01/16/19 17:17 01/16/19 22:00 01/16/19 22:10 Sodium Level 137 mmol/L (136-145) 137 mmol/L (136-145) Potassium Level 4.4 mmol/L (3.5-5.1) 4.6 mmol/L (3.5-5.1) Chloride Level 100 mmol/L (98-107) 100 mmol/L (98-107) Carbon Dioxide Level 20 mmol/L (21-32) 17 mmol/L (21-32) Anion Gap 17 (6-14) 20 (6-14) Blood Urea Nitrogen 29 mg/dL (8-26) 33 mg/dL (8-26) Creatinine 1.7 mg/dL (0.7-1.3) 1.9 mg/dL (0.7-1.3) Estimated GFR (Cockcroft-Gault) 45.3 39.9 Glucose Level 95 mg/dL (70-99) 76 mg/dL (70-99) Lactic Acid Level 12.1 mmol/L (0.4-2.0) 12.7 mmol/L (0.4-2.0) Calcium Level 7.2 mg/dL (8.5-10.1) 7.3 mg/dL (8.5-10.1) Phosphorus Level 4.1 mg/dL (2.6-4.7) 3.6 mg/dL (2.6-4.7) Magnesium Level 2.4 mg/dL (1.8-2.4) 2.4 mg/dL (1.8-2.4) Glucose (Fingerstick) 78 mg/dL (70-99) 75 mg/dL (70-99) Test 01/17/19 05:30 01/17/19 07:55 01/17/19 08:05 White Blood Count 28.7 x10^3/uL (4.0-11.0) Red Blood Count 2.22 x10^6/uL (4.30-5.70) Hemoglobin 7.4 g/dL (13.0-17.5) Hematocrit 23.3 % (39.0-53.0) Mean Corpuscular Volume 105 fL (79-100) Mean Corpuscular Hemoglobin 33 pg (25-35) Mean Corpuscular Hemoglobin Concent 32 g/dL (31-37) Red Cell Distribution Width 19.6 % (11.5-14.5) Platelet Count 78 x10^3/uL (140-400) Neutrophils (%) (Auto) 86 % (31-73) Lymphocytes (%) (Auto) 11 % (24-48) Monocytes (%) (Auto) 2 % (0-9) Eosinophils (%) (Auto) 0 % (0-3) Basophils (%) (Auto) 1 % (0-3) Neutrophils # (Auto) 24.7 x10^3/uL (1.8-7.7) Lymphocytes # (Auto) 3.1 x10^3/uL (1.0-4.8) Monocytes # (Auto) 0.7 x10^3/uL (0.0-1.1) Eosinophils # (Auto) 0.1 x10^3/uL (0.0-0.7) Basophils # (Auto) 0.1 x10^3/uL (0.0-0.2) Lactic Acid Level 10.8 mmol/L (0.4-2.0) Sodium Level 137 mmol/L (136-145) Potassium Level 4.6 mmol/L (3.5-5.1) Chloride Level 100 mmol/L (98-107) Carbon Dioxide Level 20 mmol/L (21-32) Anion Gap 17 (6-14) Blood Urea Nitrogen 31 mg/dL (8-26) Creatinine 1.8 mg/dL (0.7-1.3) Estimated GFR (Cockcroft-Gault) 42.4 Glucose Level 110 mg/dL (70-99) Calcium Level 7.6 mg/dL (8.5-10.1) Phosphorus Level 3.3 mg/dL (2.6-4.7) Magnesium Level 2.3 mg/dL (1.8-2.4) O2 Saturation 88 % (92-99) Arterial Blood pH 7.26 (7.35-7.45) Arterial Blood pCO2 at Patient Temp 37 mmHg (35-46) Arterial Blood pO2 at Patient Temp 63 mmHg (85-108) Arterial Blood HCO3 16 mmol/L (21-28) Arterial Blood Base Excess -10 mmol/L (-3-3) FiO2 100 CXR, 01/16. Findings of interstitial pulmonary edema with consolidative opacities in the right lung base which may be from atelectasis or pneumonia. Micro 12/2718 Blood Culture - Preliminary, Resulted NO GROWTH AFTER 2 DAY Objective Assessment Hypotension on pressors Fever - curve improving ? ID vs PRBCs vs reactive vs Withdrawl - improved Leukocytosis - ? reactive, improved Lactic acidosis Resp failure s/p intubation. + mycoplasma (01/14) DOMONIQUE now on CRRT GI Bleed - s/p EGD 01/08 - Reflux esophagitis. ? recent M-W tear. Alcoholic gastritis. Liver cirrhosis with small ascites. Alcoholic hepatitis - Hep C Ab positive, PCR negative. GI following ? pancreatitis. Lipase improved Rhabdo CK 965 ETOH abuse Left leg ecchymosis Plan Plan of Care Cont Dapto, Zosyn. and Levaquin. Dose renally adjusted. D/w pharmacy f/u cultures Supportive care D/w nursing Critically ill Attending Co-Sign The patient was seen and interviewed as well as examined at the bedside. The chart was reviewed. The case was discussed. Agree with the plan of care. ANNEMARIE MARTINEZ APRN Jan 17, 2019 09:05 LETTY ALEXIS MD Jan 17, 2019 12:30
--- NOTE | 2019-01-17 09:14 | PDOC ---
PROGRESS NOTES Chief Complaint Chief Complaint Acute respiratory falure, IPPV - 01.08, fluid overload? vs Atypical infection VS ARDS from aspiration HEMATEMESIS in A HEAVY DRINKER -Atrophic gastritis, ?MW tear BUT NO ACTIVE GIB - s.po STAT EGD 01/08 SEVERE PCM - albumin 1,7 -s/p albumin 01/09 - off pressors by 01/10 MInimal ascites - by US and CT HYPOTENSION, s/p, pressors standby, albumin, blood products if needed Coagulopathy - s/p vit K, HEPATIC enceph - ammonia midly high 60-90s - lactulose,KY HIGH residuals TRAMSAMINITIS with ELEVATED TB- per GI (TB 9), AST 300s-500s HEp C antibody positive LEft leg bruise, in this coagulopathic anemic pt sec to fall 2 weeks ago - monitor ELEVATED AGAP acidosis History of Present Illness History of Present Illness Mr Ballard is a 38 yo M w/ PMHx heavy ETOH abuse admitted with massive hematemesis on 01/07/19, was emergently intubated and admitted to ICU. S/p EGD, no active GIB, poss MW, atrophic gastritis, off SANDOSTATIN, CONT PPI gtt, SCDS. AMMONIA 60-90s - started lactulose, qdaily per GI, HEp c AB positive - negative PCR HIGH GASTRIC RESIDUALS 01/10/19, had to stop TF Intubated, sedated - needed to vecuronium per RN 01/12: PEEP 10, Fi O2 100% - was not ready to extubate weekend. CXR shows more edema, Echo shows no valvular or pressure abnormalities, off pressor since 01/09, UO ok but Cr up to 1.8 today. 01/13: Febrile 101.2F yesterday afternoon and 100.7F this morning. TF off 2/2 high residuals. KUB shows no obstruction but possible ileus. No BM. Bilirubin increasing to 11.3, Cr increasing to 2.2. Albumin decreased. More edematous today. BP lower. HD cath placed and HD session per nephro. 01/14: Cr worse, UOP minimal, though 1.9L logged. Bowel sounds decreased. Still on levophed. Still febrile 101.7F this morning. PEEP 10, FiO2 100%. D/w and mother bedside 01/15: Afebrile past 24 hours, but overnight had significant O2 desaturations with repositioning. Still requiring levophed. PEEP 12, FiO2 100%. ABG 7.14/55/62. Renal and hepatic function not improved. WBC up to 44 today 01/16: WBC 28.5, ABG 7.22/48/52. CXR show possible consolidation in RLL and interstitial pulmonary markings. abdomen a bit more swollen. Abdominal US consistent with ileus, no renal obstruction, no real ascites to speak of. ABG 7.26/37/63 on PEEP of 14 and FiO2 of 100% with CXR showing worsening right sided infiltrate and still ARDS appearance. He has been tolerating CRRT well, still on levophed. WBC stable elevated. Have d/w pulm, ID, nephrology and GI and family his poor prognosis. PLAN CRRT Bowel rest for ileus Cards, pulmo, GI, nephrology on case NO bleeding so far since admission cc ill prog guarded, mentation might be a problem in extubating in this alcoholic CC time 47 minutes Vitals Vitals Vital Signs Date Time Temp Pulse Resp B/P (MAP) Pulse Ox O2 Delivery O2 Flow Rate FiO2 01/17/19 09:00 102 24 121/44 (69) 95 Ventilator 01/17/19 08:00 98.4 98.4 Physical Exam Physical Exam GENERAL: Orally intubated and sedated, CRRT HEENT: Pupils equal, ETT and OGT Heart : S1 S2 regular ABDOMEN: Obese, soft, hypoactive BS : - Pollard EXTREMITIES: Generalized edema. LLE ecchymosis. SKIN: Warm to touch. No rash NEUROLOGIC: Sedated Temp RIJ/HDC (01/13) clean PIV General: Other (tachypneic 30s) Heart: Regular rate, Normal S1, Normal S2 Lungs: Other (decrease bs) Abdomen: Soft, No tenderness, Other (pot belly possible fluid wave) Extremities: No clubbing, No cyanosis, Normal pulses, Other (left leg is bruised from a fall 2-3 weeks ago) Labs LABS Laboratory Tests Test 01/16/19 09:25 01/16/19 09:40 01/16/19 13:33 01/16/19 14:15 Lactic Acid Level 9.7 mmol/L (0.4-2.0) O2 Saturation 77 % (92-99) Arterial Blood pH 7.22 (7.35-7.45) Arterial Blood pCO2 at Patient Temp 48 mmHg (35-46) Arterial Blood pO2 at Patient Temp 52 mmHg (85-108) Arterial Blood HCO3 19 mmol/L (21-28) Arterial Blood Base Excess -9 mmol/L (-3-3) FiO2 100 Glucose (Fingerstick) 89 mg/dL (70-99) 117 mg/dL (70-99) Test 01/16/19 15:30 01/16/19 17:17 01/16/19 22:00 01/16/19 22:10 Sodium Level 137 mmol/L (136-145) 137 mmol/L (136-145) Potassium Level 4.4 mmol/L (3.5-5.1) 4.6 mmol/L (3.5-5.1) Chloride Level 100 mmol/L (98-107) 100 mmol/L (98-107) Carbon Dioxide Level 20 mmol/L (21-32) 17 mmol/L (21-32) Anion Gap 17 (6-14) 20 (6-14) Blood Urea Nitrogen 29 mg/dL (8-26) 33 mg/dL (8-26) Creatinine 1.7 mg/dL (0.7-1.3) 1.9 mg/dL (0.7-1.3) Estimated GFR (Cockcroft-Gault) 45.3 39.9 Glucose Level 95 mg/dL (70-99) 76 mg/dL (70-99) Lactic Acid Level 12.1 mmol/L (0.4-2.0) 12.7 mmol/L (0.4-2.0) Calcium Level 7.2 mg/dL (8.5-10.1) 7.3 mg/dL (8.5-10.1) Phosphorus Level 4.1 mg/dL (2.6-4.7) 3.6 mg/dL (2.6-4.7) Magnesium Level 2.4 mg/dL (1.8-2.4) 2.4 mg/dL (1.8-2.4) Glucose (Fingerstick) 78 mg/dL (70-99) 75 mg/dL (70-99) Test 01/17/19 05:30 01/17/19 07:55 01/17/19 08:05 White Blood Count 28.7 x10^3/uL (4.0-11.0) Red Blood Count 2.22 x10^6/uL (4.30-5.70) Hemoglobin 7.4 g/dL (13.0-17.5) Hematocrit 23.3 % (39.0-53.0) Mean Corpuscular Volume 105 fL (79-100) Mean Corpuscular Hemoglobin 33 pg (25-35) Mean Corpuscular Hemoglobin Concent 32 g/dL (31-37) Red Cell Distribution Width 19.6 % (11.5-14.5) Platelet Count 78 x10^3/uL (140-400) Neutrophils (%) (Auto) 86 % (31-73) Lymphocytes (%) (Auto) 11 % (24-48) Monocytes (%) (Auto) 2 % (0-9) Eosinophils (%) (Auto) 0 % (0-3) Basophils (%) (Auto) 1 % (0-3) Neutrophils # (Auto) 24.7 x10^3/uL (1.8-7.7) Lymphocytes # (Auto) 3.1 x10^3/uL (1.0-4.8) Monocytes # (Auto) 0.7 x10^3/uL (0.0-1.1) Eosinophils # (Auto) 0.1 x10^3/uL (0.0-0.7) Basophils # (Auto) 0.1 x10^3/uL (0.0-0.2) Lactic Acid Level 10.8 mmol/L (0.4-2.0) Sodium Level 137 mmol/L (136-145) Potassium Level 4.6 mmol/L (3.5-5.1) Chloride Level 100 mmol/L (98-107) Carbon Dioxide Level 20 mmol/L (21-32) Anion Gap 17 (6-14) Blood Urea Nitrogen 31 mg/dL (8-26) Creatinine 1.8 mg/dL (0.7-1.3) Estimated GFR (Cockcroft-Gault) 42.4 Glucose Level 110 mg/dL (70-99) Calcium Level 7.6 mg/dL (8.5-10.1) Phosphorus Level 3.3 mg/dL (2.6-4.7) Magnesium Level 2.3 mg/dL (1.8-2.4) O2 Saturation 88 % (92-99) Arterial Blood pH 7.26 (7.35-7.45) Arterial Blood pCO2 at Patient Temp 37 mmHg (35-46) Arterial Blood pO2 at Patient Temp 63 mmHg (85-108) Arterial Blood HCO3 16 mmol/L (21-28) Arterial Blood Base Excess -10 mmol/L (-3-3) FiO2 100 Assessment and Plan Assessmemt and Plan Problems Medical Problems: (1) Acute hepatic encephalopathy Status: Acute (2) Acute upper GI bleed Status: Acute (3) Ascites Status: Acute (4) Hypokalemia Status: Acute (5) Multiple organ system failure Status: Acute (6) Severe sepsis with acute organ dysfunction Status: Acute Comment Review of Relevant I have reviewed the following items karen (where applicable) has been applied. Labs Laboratory Tests Test 01/15/19 09:15 01/15/19 11:13 01/15/19 12:10 01/15/19 15:00 Lactic Acid Level 11.2 mmol/L (0.4-2.0) O2 Saturation 80 % (92-99) 93 % (92-99) Arterial Blood pH 7.32 (7.35-7.45) 7.42 (7.35-7.45) Arterial Blood pCO2 at Patient Temp 38 mmHg (35-46) 32 mmHg (35-46) Arterial Blood pO2 at Patient Temp 48 mmHg (85-108) 67 mmHg (85-108) Arterial Blood HCO3 19 mmol/L (21-28) 21 mmol/L (21-28) Arterial Blood Base Excess -6 mmol/L (-3-3) -3 mmol/L (-3-3) FiO2 100% 100% Glucose (Fingerstick) 79 mg/dL (70-99) Test 01/15/19 16:37 01/15/19 17:45 01/15/19 20:00 01/15/19 23:58 Glucose (Fingerstick) 91 mg/dL (70-99) 147 mg/dL (70-99) Sodium Level 138 mmol/L (136-145) Potassium Level 4.1 mmol/L (3.5-5.1) Chloride Level 98 mmol/L (98-107) Carbon Dioxide Level 22 mmol/L (21-32) Anion Gap 18 (6-14) Blood Urea Nitrogen 42 mg/dL (8-26) Creatinine 2.3 mg/dL (0.7-1.3) Estimated GFR (Cockcroft-Gault) 32.0 Glucose Level 89 mg/dL (70-99) Calcium Level 7.1 mg/dL (8.5-10.1) Phosphorus Level 4.4 mg/dL (2.6-4.7) Magnesium Level 2.1 mg/dL (1.8-2.4) O2 Saturation 94 % (92-99) Arterial Blood pH 7.40 (7.35-7.45) Arterial Blood pCO2 at Patient Temp 32 mmHg (35-46) Arterial Blood pO2 at Patient Temp 77 mmHg (85-108) Arterial Blood HCO3 20 mmol/L (21-28) Arterial Blood Base Excess -5 mmol/L (-3-3) FiO2 100 Test 01/16/19 00:01 01/16/19 05:30 01/16/19 09:25 01/16/19 09:40 Sodium Level 136 mmol/L (136-145) 136 mmol/L (136-145) Potassium Level 4.2 mmol/L (3.5-5.1) 4.4 mmol/L (3.5-5.1) Chloride Level 97 mmol/L (98-107) 98 mmol/L (98-107) Carbon Dioxide Level 23 mmol/L (21-32) 22 mmol/L (21-32) Anion Gap 16 (6-14) 16 (6-14) Blood Urea Nitrogen 35 mg/dL (8-26) 34 mg/dL (8-26) Creatinine 2.0 mg/dL (0.7-1.3) 1.9 mg/dL (0.7-1.3) Estimated GFR (Cockcroft-Gault) 37.6 39.9 Glucose Level 154 mg/dL (70-99) 133 mg/dL (70-99) Calcium Level 7.1 mg/dL (8.5-10.1) 7.4 mg/dL (8.5-10.1) Phosphorus Level 3.6 mg/dL (2.6-4.7) 4.1 mg/dL (2.6-4.7) Magnesium Level 2.2 mg/dL (1.8-2.4) 2.4 mg/dL (1.8-2.4) White Blood Count 28.5 x10^3/uL (4.0-11.0) Red Blood Count 2.53 x10^6/uL (4.30-5.70) Hemoglobin 8.4 g/dL (13.0-17.5) Hematocrit 26.0 % (39.0-53.0) Mean Corpuscular Volume 103 fL (79-100) Mean Corpuscular Hemoglobin 33 pg (25-35) Mean Corpuscular Hemoglobin Concent 32 g/dL (31-37) Red Cell Distribution Width 18.6 % (11.5-14.5) Platelet Count 111 x10^3/uL (140-400) Neutrophils (%) (Auto) 84 % (31-73) Lymphocytes (%) (Auto) 12 % (24-48) Monocytes (%) (Auto) 3 % (0-9) Eosinophils (%) (Auto) 0 % (0-3) Basophils (%) (Auto) 1 % (0-3) Neutrophils # (Auto) 24.1 x10^3/uL (1.8-7.7) Lymphocytes # (Auto) 3.3 x10^3/uL (1.0-4.8) Monocytes # (Auto) 0.8 x10^3/uL (0.0-1.1) Eosinophils # (Auto) 0.1 x10^3/uL (0.0-0.7) Basophils # (Auto) 0.2 x10^3/uL (0.0-0.2) Lactic Acid Level 10.1 mmol/L (0.4-2.0) 9.7 mmol/L (0.4-2.0) O2 Saturation 77 % (92-99) Arterial Blood pH 7.22 (7.35-7.45) Arterial Blood pCO2 at Patient Temp 48 mmHg (35-46) Arterial Blood pO2 at Patient Temp 52 mmHg (85-108) Arterial Blood HCO3 19 mmol/L (21-28) Arterial Blood Base Excess -9 mmol/L (-3-3) FiO2 100 Test 01/16/19 13:33 01/16/19 14:15 01/16/19 15:30 01/16/19 17:17 Glucose (Fingerstick) 89 mg/dL (70-99) 117 mg/dL (70-99) 78 mg/dL (70-99) Sodium Level 137 mmol/L (136-145) Potassium Level 4.4 mmol/L (3.5-5.1) Chloride Level 100 mmol/L (98-107) Carbon Dioxide Level 20 mmol/L (21-32) Anion Gap 17 (6-14) Blood Urea Nitrogen 29 mg/dL (8-26) Creatinine 1.7 mg/dL (0.7-1.3) Estimated GFR (Cockcroft-Gault) 45.3 Glucose Level 95 mg/dL (70-99) Lactic Acid Level 12.1 mmol/L (0.4-2.0) Calcium Level 7.2 mg/dL (8.5-10.1) Phosphorus Level 4.1 mg/dL (2.6-4.7) Magnesium Level 2.4 mg/dL (1.8-2.4) Test 01/16/19 22:00 01/16/19 22:10 01/17/19 05:30 01/17/19 07:55 Sodium Level 137 mmol/L (136-145) 137 mmol/L (136-145) Potassium Level 4.6 mmol/L (3.5-5.1) 4.6 mmol/L (3.5-5.1) Chloride Level 100 mmol/L (98-107) 100 mmol/L (98-107) Carbon Dioxide Level 17 mmol/L (21-32) 20 mmol/L (21-32) Anion Gap 20 (6-14) 17 (6-14) Blood Urea Nitrogen 33 mg/dL (8-26) 31 mg/dL (8-26) Creatinine 1.9 mg/dL (0.7-1.3) 1.8 mg/dL (0.7-1.3) Estimated GFR (Cockcroft-Gault) 39.9 42.4 Glucose Level 76 mg/dL (70-99) 110 mg/dL (70-99) Lactic Acid Level 12.7 mmol/L (0.4-2.0) 10.8 mmol/L (0.4-2.0) Calcium Level 7.3 mg/dL (8.5-10.1) 7.6 mg/dL (8.5-10.1) Phosphorus Level 3.6 mg/dL (2.6-4.7) 3.3 mg/dL (2.6-4.7) Magnesium Level 2.4 mg/dL (1.8-2.4) 2.3 mg/dL (1.8-2.4) Glucose (Fingerstick) 75 mg/dL (70-99) White Blood Count 28.7 x10^3/uL (4.0-11.0) Red Blood Count 2.22 x10^6/uL (4.30-5.70) Hemoglobin 7.4 g/dL (13.0-17.5) Hematocrit 23.3 % (39.0-53.0) Mean Corpuscular Volume 105 fL (79-100) Mean Corpuscular Hemoglobin 33 pg (25-35) Mean Corpuscular Hemoglobin Concent 32 g/dL (31-37) Red Cell Distribution Width 19.6 % (11.5-14.5) Platelet Count 78 x10^3/uL (140-400) Neutrophils (%) (Auto) 86 % (31-73) Lymphocytes (%) (Auto) 11 % (24-48) Monocytes (%) (Auto) 2 % (0-9) Eosinophils (%) (Auto) 0 % (0-3) Basophils (%) (Auto) 1 % (0-3) Neutrophils # (Auto) 24.7 x10^3/uL (1.8-7.7) Lymphocytes # (Auto) 3.1 x10^3/uL (1.0-4.8) Monocytes # (Auto) 0.7 x10^3/uL (0.0-1.1) Eosinophils # (Auto) 0.1 x10^3/uL (0.0-0.7) Basophils # (Auto) 0.1 x10^3/uL (0.0-0.2) Test 01/17/19 08:05 O2 Saturation 88 % (92-99) Arterial Blood pH 7.26 (7.35-7.45) Arterial Blood pCO2 at Patient Temp 37 mmHg (35-46) Arterial Blood pO2 at Patient Temp 63 mmHg (85-108) Arterial Blood HCO3 16 mmol/L (21-28) Arterial Blood Base Excess -10 mmol/L (-3-3) FiO2 100 Laboratory Tests Test 01/16/19 09:25 01/16/19 09:40 01/16/19 13:33 01/16/19 14:15 Lactic Acid Level 9.7 mmol/L (0.4-2.0) O2 Saturation 77 % (92-99) Arterial Blood pH 7.22 (7.35-7.45) Arterial Blood pCO2 at Patient Temp 48 mmHg (35-46) Arterial Blood pO2 at Patient Temp 52 mmHg (85-108) Arterial Blood HCO3 19 mmol/L (21-28) Arterial Blood Base Excess -9 mmol/L (-3-3) FiO2 100 Glucose (Fingerstick) 89 mg/dL (70-99) 117 mg/dL (70-99) Test 01/16/19 15:30 01/16/19 17:17 01/16/19 22:00 01/16/19 22:10 Sodium Level 137 mmol/L (136-145) 137 mmol/L (136-145) Potassium Level 4.4 mmol/L (3.5-5.1) 4.6 mmol/L (3.5-5.1) Chloride Level 100 mmol/L (98-107) 100 mmol/L (98-107) Carbon Dioxide Level 20 mmol/L (21-32) 17 mmol/L (21-32) Anion Gap 17 (6-14) 20 (6-14) Blood Urea Nitrogen 29 mg/dL (8-26) 33 mg/dL (8-26) Creatinine 1.7 mg/dL (0.7-1.3) 1.9 mg/dL (0.7-1.3) Estimated GFR (Cockcroft-Gault) 45.3 39.9 Glucose Level 95 mg/dL (70-99) 76 mg/dL (70-99) Lactic Acid Level 12.1 mmol/L (0.4-2.0) 12.7 mmol/L (0.4-2.0) Calcium Level 7.2 mg/dL (8.5-10.1) 7.3 mg/dL (8.5-10.1) Phosphorus Level 4.1 mg/dL (2.6-4.7) 3.6 mg/dL (2.6-4.7) Magnesium Level 2.4 mg/dL (1.8-2.4) 2.4 mg/dL (1.8-2.4) Glucose (Fingerstick) 78 mg/dL (70-99) 75 mg/dL (70-99) Test 01/17/19 05:30 01/17/19 07:55 01/17/19 08:05 White Blood Count 28.7 x10^3/uL (4.0-11.0) Red Blood Count 2.22 x10^6/uL (4.30-5.70) Hemoglobin 7.4 g/dL (13.0-17.5) Hematocrit 23.3 % (39.0-53.0) Mean Corpuscular Volume 105 fL (79-100) Mean Corpuscular Hemoglobin 33 pg (25-35) Mean Corpuscular Hemoglobin Concent 32 g/dL (31-37) Red Cell Distribution Width 19.6 % (11.5-14.5) Platelet Count 78 x10^3/uL (140-400) Neutrophils (%) (Auto) 86 % (31-73) Lymphocytes (%) (Auto) 11 % (24-48) Monocytes (%) (Auto) 2 % (0-9) Eosinophils (%) (Auto) 0 % (0-3) Basophils (%) (Auto) 1 % (0-3) Neutrophils # (Auto) 24.7 x10^3/uL (1.8-7.7) Lymphocytes # (Auto) 3.1 x10^3/uL (1.0-4.8) Monocytes # (Auto) 0.7 x10^3/uL (0.0-1.1) Eosinophils # (Auto) 0.1 x10^3/uL (0.0-0.7) Basophils # (Auto) 0.1 x10^3/uL (0.0-0.2) Lactic Acid Level 10.8 mmol/L (0.4-2.0) Sodium Level 137 mmol/L (136-145) Potassium Level 4.6 mmol/L (3.5-5.1) Chloride Level 100 mmol/L (98-107) Carbon Dioxide Level 20 mmol/L (21-32) Anion Gap 17 (6-14) Blood Urea Nitrogen 31 mg/dL (8-26) Creatinine 1.8 mg/dL (0.7-1.3) Estimated GFR (Cockcroft-Gault) 42.4 Glucose Level 110 mg/dL (70-99) Calcium Level 7.6 mg/dL (8.5-10.1) Phosphorus Level 3.3 mg/dL (2.6-4.7) Magnesium Level 2.3 mg/dL (1.8-2.4) O2 Saturation 88 % (92-99) Arterial Blood pH 7.26 (7.35-7.45) Arterial Blood pCO2 at Patient Temp 37 mmHg (35-46) Arterial Blood pO2 at Patient Temp 63 mmHg (85-108) Arterial Blood HCO3 16 mmol/L (21-28) Arterial Blood Base Excess -10 mmol/L (-3-3) FiO2 100 Microbiology 01/14/19 Blood Culture - Preliminary, Resulted NO GROWTH AFTER 2 DAYS 01/08/19 Urine Culture - Final, Complete 01/08/19 Urine Culture Result 1 (ELMA) - Final, Complete Medications Current Medications Sodium Chloride 1,000 ml @ 1,000 mls/hr 1X ONCE IV Last administered on 01/07/19at 19:27; Start 01/07/19 at 19:30; Stop 01/07/19 at 20:29; Status DC Ondansetron HCl (Zofran) 4 mg 1X ONCE IV Last administered on 01/07/19at 19:28; Start 01/07/19 at 19:30; Stop 01/07/19 at 19:31; Status DC Pantoprazole Sodium (PROTONIX VIAL for IV PUSH) 80 mg 1X ONCE IVP Last administered on 01/07/19at 19:50; Start 01/07/19 at 20:00; Stop 01/07/19 at 20:01; Status DC Pantoprazole Sodium 80 mg/ Sodium Chloride 100 ml @ 10 mls/hr 1X ONCE IV Last administered on 01/07/19at 20:00; Start 01/07/19 at 20:00; Stop 01/08/19 at 05:59; Status DC Sodium Chloride 1,000 ml @ 1,000 mls/hr 1X ONCE IV Last administered on 01/07/19at 22:12; Start 01/07/19 at 21:00; Stop 01/07/19 at 21:59; Status DC Sodium Chloride 1,000 ml @ 1,000 mls/hr 1X ONCE IV Last administered on 01/07/19at 20:40; Start 01/07/19 at 20:45; Stop 01/07/19 at 21:44; Status DC Potassium Chloride/Sodium Chloride 1,000 ml @ 75 mls/hr 1X ONCE IV Last admin istered on 01/07/19at 21:16; Start 01/07/19 at 21:30; Stop 01/08/19 at 10:49; Status DC Vancomycin HCl (Vanco Per Pharmacy) 1 each PRN DAILY PRN MC SEE COMMENTS Last administered on 01/08/19at 00:43; Start 01/07/19 at 21:00; Stop 01/08/19 at 06:39; Status DC Piperacillin Sod/ Tazobactam Sod (Zosyn Per Pharmacy) 1 each PRN DAILY PRN MC SEE COMMENTS; Start 01/07/19 at 21:00 Piperacillin Sod/ Tazobactam Sod 3.375 gm/Sodium Chloride 50 ml @ 100 mls/hr Q6HRS IV Last administered on 01/17/19at 05:43; Start 01/07/19 at 22:00 Vancomycin HCl 2 gm/Sodium Chloride 500 ml @ 250 mls/hr 1X ONCE IV Last administered on 01/07/19at 22:11; Start 01/07/19 at 22:00; Stop 01/07/19 at 23:59; Status DC Lorazepam (Ativan Inj) 1 mg 1X ONCE IV Last administered on 01/07/19at 23:22; Start 01/07/19 at 23:30; Stop 01/07/19 at 23:31; Status DC Lorazepam (Ativan Inj) 2 mg STK-MED ONCE .ROUTE ; Start 01/07/19 at 23:20; Stop 01/07/19 at 23:21; Status DC Vancomycin HCl 1.5 gm/Sodium Chloride 500 ml @ 250 mls/hr Q12H IV ; Start 01/08/19 at 10:00; Stop 01/08/19 at 06:39; Status DC Vancomycin HCl (Vancomycin Trough Level) 1 each 1X ONCE MC ; Start 01/09/19 at 09:30; Stop 01/09/19 at 09:31; Status Cancel Ondansetron HCl (Zofran) 4 mg PRN Q6HRS PRN IVP NAUSEA/VOMITING; Start 01/08/19 at 04:00; Status Cancel Pantoprazole Sodium 80 mg/ Sodium Chloride 100 ml @ 10 mls/hr Q10H IV Last administered on 01/09/19at 02:00; Start 01/08/19 at 06:00; Stop 01/09/19 at 11:00; Status DC Multivitamins 10 ml/Thiamine HCl 100 mg/Folic Acid 1 mg/Sodium Chloride 1,011.2 ml @ 100 mls/ hr DAILY IV Last administered on 01/12/19at 10:29; Start 01/08/19 at 09:00; Stop 01/12/19 at 19:07; Status DC Lorazepam (Ativan Inj) 2 mg PRN Q1HR PRN IV For CIWA 8-14 Last administered on 01/14/19at 21:01; Start 01/08/19 at 07:15 Lorazepam (Ativan Inj) 4 mg PRN Q1HR PRN IV For CIWA 15 or greater Last administered on 01/15/19at 08:40; Start 01/08/19 at 07:15 Haloperidol Lactate (Haldol Inj) 5 mg PRN Q4HRS PRN IVP Hallucinatns,Confusn,Delirium; Start 01/08/19 at 07:15 Diphenhydramine HCl (Benadryl) 25 mg PRN Q15MIN PRN IVP EPS symptoms 2'Haldol admin; Start 01/08/19 at 07:15 Clonidine HCl (Catapres) 0.1 mg PRN Q1HR PRN PO SBP > 180 or DBP > 100, MRX3; Start 01/08/19 at 07:15 Sodium Bicarbonate (Sodium Bicarb Adult 8.4% Syr) 50 meq 1X ONCE IV Last administered on 01/08/19at 08:04; Start 01/08/19 at 08:00; Stop 01/08/19 at 08:01; Status DC Propofol 100 ml @ As Directed STK-MED ONCE IV ; Start 01/08/19 at 08:19; Stop 01/08/19 at 08:19; Status DC Succinylcholine Chloride (Anectine) 200 mg STK-MED ONCE .ROUTE ; Start 01/08/19 at 08:19; Stop 01/08/19 at 08:19; Status DC Propofol 100 ml @ As Directed STK-MED ONCE IV ; Start 01/08/19 at 08:29; Stop 01/08/19 at 08:30; Status DC Fentanyl Citrate 30 ml @ 0 mls/hr CONT PRN PRN IV PER PROTOCOL Last administered on 01/17/19at 00:06; Start 01/08/19 at 09:00 Naloxone HCl (Narcan) 0.4 mg PRN Q2MIN PRN IV SEE INSTRUCTIONS; Start 01/08/19 at 09:00 Sodium Chloride 1,000 ml @ 25 mls/hr Q24H IV Last administered on 01/16/19at 12:00; Start 01/08/19 at 08:54 Fentanyl Citrate (Fentanyl 2ml Vial) 100 mcg STK-MED ONCE .ROUTE ; Start 01/08/19 at 08:55; Stop 01/08/19 at 08:55; Status DC Octreotide Acetate 500 mcg/ Sodium Chloride 101 ml @ 0 mls/hr CONT PRN IV SEE I/O RECORD Last administered on 01/08/19at 13:56; Start 01/08/19 at 09:00; Stop 01/08/19 at 16:55; Status DC Phytonadione (Vitamin K Ampule) 10 mg 1X ONCE SQ Last administered on 01/08/19at 09:56; Start 01/08/19 at 09:15; Stop 01/08/19 at 09:16; Status DC Metoclopramide HCl (Reglan Vial) 10 mg 1X ONCE IVP Last administered on 01/08/19at 14:36; Start 01/08/19 at 11:00; Stop 01/08/19 at 11:01; Status DC Midazolam HCl (Versed) 5 mg STK-MED ONCE .ROUTE ; Start 01/08/19 at 09:00; Stop 01/08/19 at 09:01; Status DC Acetaminophen (Tylenol) 500 mg PRN Q6HRS PRN PO MILD PAIN / TEMP Last administered on 01/11/19at 17:46; Start 01/08/19 at 09:15; Stop 01/13/19 at 09:11; Status DC Tramadol HCl (Ultram) 50 mg PRN Q6HRS PRN PO PAIN MODERATE; Start 01/08/19 at 09:15 Morphine Sulfate (Morphine Sulfate) 2 mg PRN Q2HR PRN IV PAIN; Start 01/08/19 at 09:15 Ondansetron HCl (Zofran) 4 mg PRN Q6HRS PRN IVP NAUSEA/VOMITING, 1ST CHOICE; Start 01/08/19 at 09:15 Fentanyl Citrate (Fentanyl 2ml Vial) 100 mcg 1X ONCE IVP Last administered on 01/08/19at 09:42; Start 01/08/19 at 09:45; Stop 01/08/19 at 09:46; Status DC Midazolam HCl (Versed) 5 mg 1X ONCE IV Last administered on 01/08/19at 09:41; Start 01/08/19 at 09:45; Stop 01/08/19 at 09:46; Status DC Succinylcholine Chloride (Anectine) 200 mg 1X ONCE IV Last administered on 01/08/19at 09:41; Start 01/08/19 at 09:45; Stop 01/08/19 at 09:46; Status DC Propofol 100 ml @ 1.524 mls/ hr CONT PRN IV SEE I/O RECORD Last administered on 01/14/19at 03:56; Start 01/08/19 at 09:45 Midazolam HCl 100 ml @ 5 mls/hr CONT PRN IV SEE I/O RECORD Last administered on 01/17/19at 04:01; Start 01/08/19 at 11:15 Vecuronium [place] (Norcuron Bolus) 6 mg PRN Q4HRS PRN IV VENT ASYNCHRONY Last administered on 01/17/19 07:41; Start 01/08/19 at 12:00 Benzocaine (Hurricaine One) 2 spray STK-MED ONCE .ROUTE ; Start 01/07/19 at 12:00; Stop 01/08/19 at 14:20; Status DC Lidocaine HCl (Xylocaine 2% Topical 5gm Tube) 5 amanda STK-MED ONCE TP ; Start 01/07/19 at 12:00; Stop 01/08/19 at 14:20; Status DC Lactobacillus Rhamnosus (Culturelle) 1 cap BID PO ; Start 01/08/19 at 21:00; Stop 01/09/19 at 09:29; Status DC Acetaminophen (Tylenol Supp) 650 mg PRN Q6HRS PRN [place] MILD PAIN / TEMP Last administered on 01/09/19at 23:44; Start 01/08/19 at 18:15 Norepinephrine Bitartrate 250 ml @ 18.938 mls/ hr CONT PRN IV SEE I/O RECORD Last administered on 01/16/19 19:23; Start 01/09/19 at 01:45 Potassium Chloride (Klor-Con) 40 meq 1X ONCE PO Last administered on 11:34; Start 01/09/19 at 09:45; Stop 01/09/19 at 09:46; Status DC Metoclopramide HCl (Reglan Vial) 10 mg PRN Q6HRS PRN IVP NAUSEA/VOMITING, 2ND CHOICE Last administered on 01/14/19 21:01; Start 01/09/19 at 10:15 Albumin Human 100 ml @ 100 mls/hr 1X ONCE IV Last administered on 01/09/19 10:49; Start 01/09/19 at 10:15; Stop 01/09/19 at 11:14; Status DC Lactulose (LACTULOSE 300ML for RECTAL) 200 gm Q6HRS [place] ; Start 01/09/19 at 12:00; Stop 01/09/19 at 11:04; Status DC Insulin Human Lispro (HumaLOG) 0-9 UNITS TIDWMEALS SQ ; Start 01/09/19 at 12:00 Dextrose (Dextrose 50%-Water Syringe) 12.5 gm PRN Q15MIN PRN IV SEE COMMENTS Last administered on 01/16/19 13:41; Start 01/09/19 at 10:30 Fentanyl Citrate (Fentanyl 600 Mcg/30 ml TEAM LEAD) 600 mcg STK-MED ONCE IV ; Start 01/08/19 at 15:25; Stop 01/09/19 at 10:27; Status DC Pantoprazole Sodium (PROTONIX VIAL for IV PUSH) 40 mg DAILYAC IVP Last administered on 01/17/19 08:20; Start 01/10/19 at 07:30 Lactulose (Lactulose) 20 gm DAILY PO Last administered on 01/12/19 08:24; Start 01/09/19 at 11:30; Stop 01/12/19 at 10:12; Status DC Potassium Bicarbonate (Potassium Effervescent Tablet) 40 meq BIDWMEALS FT Last administered on 01/10/19 17:49; Start 01/10/19 at 09:00; Stop 01/11/19 at 09:20; Status DC Linezolid/Dextrose 300 ml @ 300 mls/hr Q12HR IV Last administered on 11/29/19at 08:26; Start 01/11/19 at 13:00; Stop 01/16/19 at 08:29; Status DC Perflutren Protein Type A Microsphe (Optison) 0.66 mg 1X ONCE IV ; Start 01/11/19 at 13:30; Stop 01/11/19 at 13:31; Status DC Albumin Human 100 ml @ 100 mls/hr 1X ONCE IV Last administered on 01/12/19at 08:25; Start 01/12/19 at 07:45; Stop 01/12/19 at 08:44; Status DC Lactulose (Lactulose) 20 gm PRN DAILY PRN PO constipation; Start 01/12/19 at 10:15; Stop 01/13/19 at 09:11; Status DC Acetaminophen (Tylenol) 650 mg PRN Q6HRS PRN PEG MILD PAIN / TEMP Last administered on 01/14/19at 09:11; Start 01/12/19 at 16:30 Lactulose (Lactulose) 20 gm TID PO Last administered on 01/14/19at 21:01; Start 01/13/19 at 10:00 Albumin Human 500 ml @ 125 mls/hr 1X ONCE IV Last administered on 01/13/19at 09:40; Start 01/13/19 at 10:00; Stop 01/13/19 at 13:59; Status DC Bisacodyl (Dulcolax Supp) 10 mg 1X ONCE [place] Last administered on 01/13/19at 10:14; Start 01/13/19 at 11:00; Stop 01/13/19 at 11:01; Status DC Lidocaine HCl (Buffered Lidocaine 1%) 3 ml 1X ONCE IN[place] Last administered on 01/13/19at 11:00; Start 01/13/19 at 11:00; Stop 01/13/19 at 11:01; Status DC Heparin Sodium (Porcine) (Heparin Sodium) 10,000 unit STK-MED ONCE .ROUTE ; Start 01/13/19 at 10:59; Stop 01/13/19 at 11:00; Status DC Darbepoetin Giorgi (ARANESP for DIALYSIS PTS) 60 mcg WEEKLYHS SQ Last administered on 01/13/19at 20:46; Start 01/13/19 at 21:00 Info (Tpn Per Pharmacy) 1 each PRN DAILY PRN MC SEE COMMENTS Last administered on 01/16/19at 09:22; Start 01/13/19 at 11:15 Sodium Chloride 1,000 ml @ 1,000 mls/hr Q1H PRN IV hypotension; Start 01/13/19 at 11:30; Stop 01/13/19 at 19:00; Status DC Albumin Human 200 ml @ 200 mls/hr 1X PRN PRN IV Hypotension; Start 01/13/19 at 11:30; Stop 01/13/19 at 17:29; Status DC Sodium Chloride 1,000 ml @ 400 mls/hr Q2H30M PRN IV PATENCY; Start 01/13/19 at 11:30; Stop 01/13/19 at 19:00; Status DC Info (PHARMACY MONITORING -- do not chart) 1 each PRN DAILY PRN MC SEE COMMENTS; Start 01/13/19 at 11:30 Info (PHARMACY MONITORING -- do not chart) 1 each PRN DAILY PRN MC SEE COMMENTS; Start 01/13/19 at 11:30; Status UNV Sodium Acetate 40 meq/Potassium Acetate 30 meq/ Calcium Gluconate 10 meq/ Multivitamins 10 ml/Chromium/ Copper/Manganese/ Seleni/Zn 1 ml/ Total Parenteral Nutrition/Amino Acids/Dextrose/ Fat Emulsion Intravenous 1,512 ml @ 63 mls/hr TPN CONT IV Last administered on 01/13/19at 21:54; Start 01/13/19 at 22:00; Stop 01/14/19 at 21:59; Status DC Multi-Ingred Cream/Lotion/Oil/ Oint (Artificial Tears Eye Ointment) 1 amanda PRN Q1HR PRN OU DRY EYE Last administered on 01/13/19at 17:14; Start 01/13/19 at 16:45 Docusate Sodium (Enemeez) 283 mg 1X ONCE [place] Last administered on 01/13/19at 17:14; Start 01/13/19 at 16:45; Stop 01/13/19 at 16:47; Status DC Levofloxacin/ Dextrose 100 ml @ 100 mls/hr Q24H IV Last administered on 01/16/19at 17:12; Start 01/14/19 at 09:00 Metoclopramide HCl (Reglan Vial) 5 mg 1X ONCE IVP Last administered on 01/14/19at 10:51; Start 01/14/19 at 10:30; Stop 01/14/19 at 10:31; Status DC Dexmedetomidine HCl 400 mcg/ Sodium Chloride 100 ml @ 0 mls/hr CONT PRN IV AGITATION Last administered on 01/17/19at 00:05; Start 01/14/19 at 11:30 Sodium Chloride 1,000 ml @ 1,000 mls/hr Q1H PRN IV hypotension; Start 01/14/19 at 11:26; Stop 01/14/19 at 17:25; Status DC Albumin Human 200 ml @ 200 mls/hr 1X PRN PRN IV Hypotension; Start 01/14/19 at 11:30; Stop 01/14/19 at 17:29; Status DC Sodium Chloride 1,000 ml @ 400 mls/hr Q2H30M PRN IV PATENCY; Start 01/14/19 at 11:26; Stop 01/14/19 at 23:25; Status DC Info (PHARMACY MONITORING -- do not chart) 1 each PRN DAILY PRN MC SEE COMMENTS; Start 01/14/19 at 11:30; Status UNV Info (PHARMACY MONITORING -- do not chart) 1 each PRN DAILY PRN MC SEE COMMENTS; Start 01/14/19 at 11:30; Status UNV Sodium Chloride 30 meq/Sodium Acetate 40 meq/ Potassium Acetate 30 meq/Calcium Gluconate 10 meq/ Multivitamins 10 ml/Chromium/ Copper/Manganese/ Seleni/Zn 1 ml/ Total Parenteral Nutrition/Amino Acids/Dextrose/ Fat Emulsion Intravenous 1,512 ml @ 63 mls/hr TPN CONT IV Last administered on 01/15/19at 00:05; Start 01/14/19 at 22:00; Stop 01/15/19 at 21:59; Status DC Artificial Tears (Artificial Tears) 1 drop Q4H PRN OU DRY EYE Last administered on 01/14/19at 16:43; Start 01/14/19 at 15:30 Sodium Bicarbonate (Sodium Bicarb Adult 8.4% Syr) 50 meq STK-MED ONCE .ROUTE ; Start 01/15/19 at 08:25; Stop 01/15/19 at 08:25; Status DC Sodium Bicarbonate (Sodium Bicarb Adult 8.4% Syr) 100 meq 1X ONCE IV Last administered on 01/15/19at 08:31; Start 01/15/19 at 08:30; Stop 01/15/19 at 08:31; Status DC Sodium Chloride 40 meq/Sodium Acetate 40 meq/ Potassium Acetate 10 meq/Calcium Gluconate 10 meq/ Multivitamins 10 ml/Chromium/ Copper/Manganese/ Seleni/Zn 1 ml/ Total Parenteral Nutrition/Amino Acids/Dextrose/ Fat Emulsion Intravenous 1,512 ml @ 63 mls/hr TPN CONT IV ; Start 01/15/19 at 22:00; Stop 01/15/19 at 11:06; Status DC Vasopressin 40 unit/Dextrose 102 ml @ 6 mls/hr CONT PRN IV SEE I/O RECORD Last administered on 01/16/19at 19:22; Start 01/15/19 at 10:00 Sodium Chloride 1,000 ml @ 1,000 mls/hr Q1H PRN IV hypotension; Start 01/15/19 at 10:00; Stop 01/15/19 at 15:59; Status DC Albumin Human 200 ml @ 200 mls/hr 1X PRN PRN IV Hypotension Last administered on 01/15/19at 11:07; Start 01/15/19 at 10:00; Stop 01/15/19 at 15:59; Status DC Sodium Chloride 1,000 ml @ 400 mls/hr Q2H30M PRN IV PATENCY; Start 01/15/19 at 10:00; Stop 01/15/19 at 21:59; Status DC Info (PHARMACY MONITORING -- do not chart) 1 each PRN DAILY PRN MC SEE COMMENTS; Start 01/15/19 at 10:00; Stop 01/15/19 at 10:57; Status DC Info (PHARMACY MONITORING -- do not chart) 1 each PRN DAILY PRN MC SEE COMMENTS; Start 01/15/19 at 10:00; Stop 01/15/19 at 10:57; Status DC Sodium Chloride 40 meq/Sodium Acetate 40 meq/ Potassium Acetate 10 meq/Calcium Gluconate 10 meq/ Multivitamins 10 ml/Chromium/ Copper/Manganese/ Seleni/Zn 1 ml/ Thiamine HCl 100 mg/Total Parenteral Nutrition/Amino Acids/Dextrose/ Fat Emulsion Intravenous 1,512 ml @ 63 mls/hr TPN CONT IV ; Start 01/15/19 at 22:00; Stop 01/15/19 at 14:18; Status DC Potassium Chloride 20 meq/ Bicarbonate Dialysis Soln w/ out KCl 5,010 ml @ 1,000 mls/hr Q5H1M IV Last administered on 01/15/19at 15:40; Start 01/15/19 at 14:00; Stop 01/15/19 at 19:00; Status DC Potassium Chloride 20 meq/ Bicarbonate Dialysis Soln w/ out KCl 5,010 ml @ 1,000 mls/hr Q5H1M IV Last administered on 01/15/19at 15:50; Start 01/15/19 at 14:00; Stop 01/15/19 at 19:00; Status DC Potassium Chloride 20 meq/ Bicarbonate Dialysis Soln w/ out KCl 5,010 ml @ 1,000 mls/hr Q5H1M IV Last administered on 01/15/19at 15:50; Start 01/15/19 at 14:00; Stop 01/15/19 at 19:00; Status DC Albumin Human 100 ml @ 100 mls/hr Q6HRS IV Last administered on 01/17/19at 05:43; Start 01/15/19 at 14:00 Potassium Phosphate 20 mmol/ Sodium Chloride 256.6667 ml @ 128.... PRN Q6HRS PRN IV FOR PO4 < 2.5; Start 01/15/19 at 14:00 Sodium Chloride 40 meq/Sodium Acetate 40 meq/ Calcium Gluconate 10 meq/ Multivitamins 10 ml/Chromium/ Copper/Manganese/ Seleni/Zn 1 ml/ Thiamine HCl 100 mg/Total Parenteral Nutrition/Amino Acids/Dextrose/ Fat Emulsion Intravenous 1,512 ml @ 63 mls/hr TPN CONT IV Last administered on 01/15/19at 21:45; Start 01/15/19 at 22:00; Stop 01/16/19 at 21:59; Status DC Potassium Chloride 20 meq/ Bicarbonate Dialysis Soln w/ out KCl 5,010 ml @ 500 mls/hr Q10H2M IV Last administered on 01/17/19at 06:23; Start 01/15/19 at 19:01 Potassium Chloride 20 meq/ Bicarbonate Dialysis Soln w/ out KCl 5,010 ml @ 1,200 mls/hr Q4H11M IV Last administered on 01/17/19at 06:24; Start 01/15/19 at 19:01 Potassium Chloride 20 meq/ Bicarbonate Dialysis Soln w/ out KCl 5,010 ml @ 1,200 mls/hr Q4H11M IV Last administered on 01/16/19at 19:24; Start 01/15/19 at 19:00 Daptomycin 500 mg/ Sodium Chloride 50 ml @ 100 mls/hr Q48H IV Last administered on 01/16/19at 09:22; Start 01/16/19 at 09:00 Sodium Chloride 60 meq/Sodium Acetate 40 meq/ Calcium Gluconate 10 meq/ Multivitamins 10 ml/Chromium/ Copper/Manganese/ Seleni/Zn 1 ml/ Thiamine HCl 100 mg/Total Parenteral Nutrition/Amino Acids/Dextrose/ Fat Emulsion Intravenous 1,512 ml @ 63 mls/hr TPN CONT IV Last administered on 01/16/19at 22:00; Start 01/16/19 at 22:00 Vitals/I & O Vital Sign - Last 24 Hours 01/16/19 01/16/19 01/16/19 01/16/19 09:30 10:00 11:00 11:30 Temp 97.0 97.0 Pulse 84 89 90 88 Resp 24 24 26 26 B/P (MAP) 118/34 (62) 101/35 (57) 117/42 (67) 113/40 (64) Pulse Ox 84 86 90 91 O2 Delivery Ventilator Ventilator Ventilator Ventilator 01/16/19 01/16/19 01/16/19 01/16/19 11:56 12:00 12:00 12:29 Temp 97.0 97.0 Pulse 90 86 Resp 26 B/P (MAP) 122/53 (76) 111/40 (63) Pulse Ox 93 93 91 O2 Delivery Ventilator Ventilator Mechanical Ventilator Ventilator 01/16/19 01/16/19 01/16/19 01/16/19 13:41 14:00 14:30 15:00 Temp 98.0 98.0 Pulse 92 98 94 Resp 24 24 24 B/P (MAP) 110/37 (61) 116/53 (74) 91/42 (58) Pulse Ox 96 94 92 87 O2 Delivery Ventilator Ventilator Ventilator Ventilator 01/16/19 01/16/19 01/16/19 01/16/19 15:30 16:00 16:00 16:30 Temp 99.0 99.0 Pulse 94 98 102 Resp 24 24 24 B/P (MAP) 92/38 (56) 87/42 (57) 104/39 (60) Pulse Ox 91 91 89 O2 Delivery Ventilator Ventilator Mechanical Ventilator Ventilator 01/16/19 01/16/19 01/16/19 01/16/19 16:30 16:30 17:00 17:18 Pulse 99 100 Resp 24 B/P (MAP) 104/60 (75) 110/55 (73) Pulse Ox 90 91 89 92 O2 Delivery Ventilator Ventilator Ventilator Ventilator 01/16/19 01/16/19 01/16/19 01/16/19 17:30 18:00 19:00 20:00 Temp 99.3 98.5 99.3 98.5 Pulse 104 111 111 93 Resp 24 B/P (MAP) 108/54 (72) 111/53 (72) 111/53 (72) 89/43 (58) Pulse Ox 90 94 93 96 O2 Delivery Ventilator Ventilator Ventilator Ventilator 01/16/19 01/16/19 01/16/19 01/16/19 20:00 20:56 21:00 22:00 Pulse 93 97 Resp 24 24 B/P (MAP) 85/39 (54) 90/45 (60) Pulse Ox 95 96 97 O2 Delivery Mechanical Ventilator Ventilator Ventilator Ventilator 01/16/19 01/16/19 01/16/19 01/17/19 23:00 23:24 23:59 00:00 Temp 98.8 98.8 Pulse 110 108 Resp 24 24 B/P (MAP) 97/44 (61) 103/43 (63) Pulse Ox 98 98 96 O2 Delivery Ventilator Ventilator Mechanical Ventilator Ventilator 01/17/19 01/17/19 01/17/19 01/17/19 00:06 01:00 01:45 02:00 Pulse 106 104 Resp 28 B/P (MAP) 116/37 (63) 91/42 (58) Pulse Ox 98 99 98 100 O2 Delivery Ventilator Ventilator Ventilator Ventilator 01/17/19 01/17/19 01/17/19 01/17/19 02:06 03:00 03:45 04:00 Temp 98.9 98.9 Pulse 104 104 Resp 24 24 B/P (MAP) 103/52 (69) 91/48 (62) Pulse Ox 98 100 98 100 O2 Delivery Ventilator Ventilator Ventilator Ventilator 01/17/19 01/17/19 01/17/19 01/17/19 04:00 05:00 06:00 07:00 Pulse 105 110 116 Resp 24 24 24 B/P (MAP) 118/49 (72) 112/41 (64) 102/36 (58) Pulse Ox 100 100 100 O2 Delivery Mechanical Ventilator Ventilator Ventilator Ventilator 01/17/19 01/17/19 01/17/19 01/17/19 07:57 08:00 08:00 09:00 Temp 98.4 98.4 Pulse 110 102 Resp 24 24 B/P (MAP) 128/45 (72) 121/44 (69) Pulse Ox 96 96 95 O2 Delivery Ventilator Mechanical Ventilator Ventilator Ventilator Intake and Output 01/16/19 01/16/19 01/17/19 15:00 23:00 07:00 Intake Total 300 ml 1892 ml 51323 ml Output Total 9 ml 0 ml 0 ml Balance 291 ml 1892 ml 69304 ml MERLE MEYER MD Jan 17, 2019 09:14
--- NOTE | 2019-01-17 09:29 | PDOC ---
Dialysis Progress Note Dialysis Note Dialysis Note Seen on CRRT tolerating treatment Okay so far Vitals on CRRT : 119/57 93 General Appearance: remains Sedated and intubated on the Vent Neck: No JVD + JVP Chest: CTA Librado Heart: S1 S2 Abdomen - Soft NT ND Extremities - + 3 Edema all over DOMONIQUE/ ATN: Ct CRRT Lactic acidosis: I have held ultrafiltration at this time due to worsening of lactic acidosis. We'll gently restart the same. Increased bicarbonate within CRRT system as ordered Resp Failure: on the Vent with ? ARDS. Will restart gentle UF to facilitate respiratory status. Unclear to me if elevated lactic acid as a result of hypoperfusion or liver dysfunction Vitals Vital Signs Vital Signs Date Time Temp Pulse Resp B/P (MAP) Pulse Ox O2 Delivery O2 Flow Rate FiO2 01/17/19 09:00 102 24 121/44 (69) 95 Ventilator 01/17/19 08:00 98.4 98.4 01/16/19 05:38 2.0 Labs Last Labs Laboratory Tests Test 01/15/19 11:13 01/15/19 12:10 01/15/19 15:00 01/15/19 16:37 O2 Saturation 80 % (92-99) 93 % (92-99) Arterial Blood pH 7.32 (7.35-7.45) 7.42 (7.35-7.45) Arterial Blood pCO2 at Patient Temp 38 mmHg (35-46) 32 mmHg (35-46) Arterial Blood pO2 at Patient Temp 48 mmHg (85-108) 67 mmHg (85-108) Arterial Blood HCO3 19 mmol/L (21-28) 21 mmol/L (21-28) Arterial Blood Base Excess -6 mmol/L (-3-3) -3 mmol/L (-3-3) FiO2 100% 100% Glucose (Fingerstick) 79 mg/dL (70-99) 91 mg/dL (70-99) Test 01/15/19 17:45 01/15/19 20:00 01/15/19 23:58 01/16/19 00:01 Sodium Level 138 mmol/L (136-145) 136 mmol/L (136-145) Potassium Level 4.1 mmol/L (3.5-5.1) 4.2 mmol/L (3.5-5.1) Chloride Level 98 mmol/L (98-107) 97 mmol/L (98-107) Carbon Dioxide Level 22 mmol/L (21-32) 23 mmol/L (21-32) Anion Gap 18 (6-14) 16 (6-14) Blood Urea Nitrogen 42 mg/dL (8-26) 35 mg/dL (8-26) Creatinine 2.3 mg/dL (0.7-1.3) 2.0 mg/dL (0.7-1.3) Estimated GFR (Cockcroft-Gault) 32.0 37.6 Glucose Level 89 mg/dL (70-99) 154 mg/dL (70-99) Calcium Level 7.1 mg/dL (8.5-10.1) 7.1 mg/dL (8.5-10.1) Phosphorus Level 4.4 mg/dL (2.6-4.7) 3.6 mg/dL (2.6-4.7) Magnesium Level 2.1 mg/dL (1.8-2.4) 2.2 mg/dL (1.8-2.4) O2 Saturation 94 % (92-99) Arterial Blood pH 7.40 (7.35-7.45) Arterial Blood pCO2 at Patient Temp 32 mmHg (35-46) Arterial Blood pO2 at Patient Temp 77 mmHg (85-108) Arterial Blood HCO3 20 mmol/L (21-28) Arterial Blood Base Excess -5 mmol/L (-3-3) FiO2 100 Glucose (Fingerstick) 147 mg/dL (70-99) Test 01/16/19 05:30 01/16/19 09:25 01/16/19 09:40 01/16/19 13:33 White Blood Count 28.5 x10^3/uL (4.0-11.0) Red Blood Count 2.53 x10^6/uL (4.30-5.70) Hemoglobin 8.4 g/dL (13.0-17.5) Hematocrit 26.0 % (39.0-53.0) Mean Corpuscular Volume 103 fL (79-100) Mean Corpuscular Hemoglobin 33 pg (25-35) Mean Corpuscular Hemoglobin Concent 32 g/dL (31-37) Red Cell Distribution Width 18.6 % (11.5-14.5) Platelet Count 111 x10^3/uL (140-400) Neutrophils (%) (Auto) 84 % (31-73) Lymphocytes (%) (Auto) 12 % (24-48) Monocytes (%) (Auto) 3 % (0-9) Eosinophils (%) (Auto) 0 % (0-3) Basophils (%) (Auto) 1 % (0-3) Neutrophils # (Auto) 24.1 x10^3/uL (1.8-7.7) Lymphocytes # (Auto) 3.3 x10^3/uL (1.0-4.8) Monocytes # (Auto) 0.8 x10^3/uL (0.0-1.1) Eosinophils # (Auto) 0.1 x10^3/uL (0.0-0.7) Basophils # (Auto) 0.2 x10^3/uL (0.0-0.2) Sodium Level 136 mmol/L (136-145) Potassium Level 4.4 mmol/L (3.5-5.1) Chloride Level 98 mmol/L (98-107) Carbon Dioxide Level 22 mmol/L (21-32) Anion Gap 16 (6-14) Blood Urea Nitrogen 34 mg/dL (8-26) Creatinine 1.9 mg/dL (0.7-1.3) Estimated GFR (Cockcroft-Gault) 39.9 Glucose Level 133 mg/dL (70-99) Lactic Acid Level 10.1 mmol/L (0.4-2.0) 9.7 mmol/L (0.4-2.0) Calcium Level 7.4 mg/dL (8.5-10.1) Phosphorus Level 4.1 mg/dL (2.6-4.7) Magnesium Level 2.4 mg/dL (1.8-2.4) O2 Saturation 77 % (92-99) Arterial Blood pH 7.22 (7.35-7.45) Arterial Blood pCO2 at Patient Temp 48 mmHg (35-46) Arterial Blood pO2 at Patient Temp 52 mmHg (85-108) Arterial Blood HCO3 19 mmol/L (21-28) Arterial Blood Base Excess -9 mmol/L (-3-3) FiO2 100 Glucose (Fingerstick) 89 mg/dL (70-99) Test 01/16/19 14:15 01/16/19 15:30 01/16/19 17:17 01/16/19 22:00 Glucose (Fingerstick) 117 mg/dL (70-99) 78 mg/dL (70-99) Sodium Level 137 mmol/L (136-145) 137 mmol/L (136-145) Potassium Level 4.4 mmol/L (3.5-5.1) 4.6 mmol/L (3.5-5.1) Chloride Level 100 mmol/L (98-107) 100 mmol/L (98-107) Carbon Dioxide Level 20 mmol/L (21-32) 17 mmol/L (21-32) Anion Gap 17 (6-14) 20 (6-14) Blood Urea Nitrogen 29 mg/dL (8-26) 33 mg/dL (8-26) Creatinine 1.7 mg/dL (0.7-1.3) 1.9 mg/dL (0.7-1.3) Estimated GFR (Cockcroft-Gault) 45.3 39.9 Glucose Level 95 mg/dL (70-99) 76 mg/dL (70-99) Lactic Acid Level 12.1 mmol/L (0.4-2.0) 12.7 mmol/L (0.4-2.0) Calcium Level 7.2 mg/dL (8.5-10.1) 7.3 mg/dL (8.5-10.1) Phosphorus Level 4.1 mg/dL (2.6-4.7) 3.6 mg/dL (2.6-4.7) Magnesium Level 2.4 mg/dL (1.8-2.4) 2.4 mg/dL (1.8-2.4) Test 01/16/19 22:10 01/17/19 05:30 01/17/19 07:55 01/17/19 08:05 Glucose (Fingerstick) 75 mg/dL (70-99) White Blood Count 28.7 x10^3/uL (4.0-11.0) Red Blood Count 2.22 x10^6/uL (4.30-5.70) Hemoglobin 7.4 g/dL (13.0-17.5) Hematocrit 23.3 % (39.0-53.0) Mean Corpuscular Volume 105 fL (79-100) Mean Corpuscular Hemoglobin 33 pg (25-35) Mean Corpuscular Hemoglobin Concent 32 g/dL (31-37) Red Cell Distribution Width 19.6 % (11.5-14.5) Platelet Count 78 x10^3/uL (140-400) Neutrophils (%) (Auto) 86 % (31-73) Lymphocytes (%) (Auto) 11 % (24-48) Monocytes (%) (Auto) 2 % (0-9) Eosinophils (%) (Auto) 0 % (0-3) Basophils (%) (Auto) 1 % (0-3) Neutrophils # (Auto) 24.7 x10^3/uL (1.8-7.7) Lymphocytes # (Auto) 3.1 x10^3/uL (1.0-4.8) Monocytes # (Auto) 0.7 x10^3/uL (0.0-1.1) Eosinophils # (Auto) 0.1 x10^3/uL (0.0-0.7) Basophils # (Auto) 0.1 x10^3/uL (0.0-0.2) Lactic Acid Level 10.8 mmol/L (0.4-2.0) Sodium Level 137 mmol/L (136-145) Potassium Level 4.6 mmol/L (3.5-5.1) Chloride Level 100 mmol/L (98-107) Carbon Dioxide Level 20 mmol/L (21-32) Anion Gap 17 (6-14) Blood Urea Nitrogen 31 mg/dL (8-26) Creatinine 1.8 mg/dL (0.7-1.3) Estimated GFR (Cockcroft-Gault) 42.4 Glucose Level 110 mg/dL (70-99) Calcium Level 7.6 mg/dL (8.5-10.1) Phosphorus Level 3.3 mg/dL (2.6-4.7) Magnesium Level 2.3 mg/dL (1.8-2.4) O2 Saturation 88 % (92-99) Arterial Blood pH 7.26 (7.35-7.45) Arterial Blood pCO2 at Patient Temp 37 mmHg (35-46) Arterial Blood pO2 at Patient Temp 63 mmHg (85-108) Arterial Blood HCO3 16 mmol/L (21-28) Arterial Blood Base Excess -10 mmol/L (-3-3) FiO2 100 Laboratory Tests Test 01/16/19 09:25 01/16/19 09:40 01/16/19 13:33 01/16/19 14:15 Lactic Acid Level 9.7 mmol/L (0.4-2.0) O2 Saturation 77 % (92-99) Arterial Blood pH 7.22 (7.35-7.45) Arterial Blood pCO2 at Patient Temp 48 mmHg (35-46) Arterial Blood pO2 at Patient Temp 52 mmHg (85-108) Arterial Blood HCO3 19 mmol/L (21-28) Arterial Blood Base Excess -9 mmol/L (-3-3) FiO2 100 Glucose (Fingerstick) 89 mg/dL (70-99) 117 mg/dL (70-99) Test 01/16/19 15:30 01/16/19 17:17 01/16/19 22:00 01/16/19 22:10 Sodium Level 137 mmol/L (136-145) 137 mmol/L (136-145) Potassium Level 4.4 mmol/L (3.5-5.1) 4.6 mmol/L (3.5-5.1) Chloride Level 100 mmol/L (98-107) 100 mmol/L (98-107) Carbon Dioxide Level 20 mmol/L (21-32) 17 mmol/L (21-32) Anion Gap 17 (6-14) 20 (6-14) Blood Urea Nitrogen 29 mg/dL (8-26) 33 mg/dL (8-26) Creatinine 1.7 mg/dL (0.7-1.3) 1.9 mg/dL (0.7-1.3) Estimated GFR (Cockcroft-Gault) 45.3 39.9 Glucose Level 95 mg/dL (70-99) 76 mg/dL (70-99) Lactic Acid Level 12.1 mmol/L (0.4-2.0) 12.7 mmol/L (0.4-2.0) Calcium Level 7.2 mg/dL (8.5-10.1) 7.3 mg/dL (8.5-10.1) Phosphorus Level 4.1 mg/dL (2.6-4.7) 3.6 mg/dL (2.6-4.7) Magnesium Level 2.4 mg/dL (1.8-2.4) 2.4 mg/dL (1.8-2.4) Glucose (Fingerstick) 78 mg/dL (70-99) 75 mg/dL (70-99) Test 01/17/19 05:30 01/17/19 07:55 01/17/19 08:05 White Blood Count 28.7 x10^3/uL (4.0-11.0) Red Blood Count 2.22 x10^6/uL (4.30-5.70) Hemoglobin 7.4 g/dL (13.0-17.5) Hematocrit 23.3 % (39.0-53.0) Mean Corpuscular Volume 105 fL (79-100) Mean Corpuscular Hemoglobin 33 pg (25-35) Mean Corpuscular Hemoglobin Concent 32 g/dL (31-37) Red Cell Distribution Width 19.6 % (11.5-14.5) Platelet Count 78 x10^3/uL (140-400) Neutrophils (%) (Auto) 86 % (31-73) Lymphocytes (%) (Auto) 11 % (24-48) Monocytes (%) (Auto) 2 % (0-9) Eosinophils (%) (Auto) 0 % (0-3) Basophils (%) (Auto) 1 % (0-3) Neutrophils # (Auto) 24.7 x10^3/uL (1.8-7.7) Lymphocytes # (Auto) 3.1 x10^3/uL (1.0-4.8) Monocytes # (Auto) 0.7 x10^3/uL (0.0-1.1) Eosinophils # (Auto) 0.1 x10^3/uL (0.0-0.7) Basophils # (Auto) 0.1 x10^3/uL (0.0-0.2) Lactic Acid Level 10.8 mmol/L (0.4-2.0) Sodium Level 137 mmol/L (136-145) Potassium Level 4.6 mmol/L (3.5-5.1) Chloride Level 100 mmol/L (98-107) Carbon Dioxide Level 20 mmol/L (21-32) Anion Gap 17 (6-14) Blood Urea Nitrogen 31 mg/dL (8-26) Creatinine 1.8 mg/dL (0.7-1.3) Estimated GFR (Cockcroft-Gault) 42.4 Glucose Level 110 mg/dL (70-99) Calcium Level 7.6 mg/dL (8.5-10.1) Phosphorus Level 3.3 mg/dL (2.6-4.7) Magnesium Level 2.3 mg/dL (1.8-2.4) O2 Saturation 88 % (92-99) Arterial Blood pH 7.26 (7.35-7.45) Arterial Blood pCO2 at Patient Temp 37 mmHg (35-46) Arterial Blood pO2 at Patient Temp 63 mmHg (85-108) Arterial Blood HCO3 16 mmol/L (21-28) Arterial Blood Base Excess -10 mmol/L (-3-3) FiO2 100 Assessment Assessment Problems Medical Problems: (1) Acute hepatic encephalopathy Status: Acute (2) Acute upper GI bleed Status: Acute (3) Ascites Status: Acute (4) Hypokalemia Status: Acute (5) Multiple organ system failure Status: Acute (6) Severe sepsis with acute organ dysfunction Status: Acute Plan Plan of Care Problems Medical Problems: (1) Acute hepatic encephalopathy Status: Acute (2) Acute upper GI bleed Status: Acute (3) Ascites Status: Acute (4) Hypokalemia Status: Acute (5) Multiple organ system failure Status: Acute (6) Severe sepsis with acute organ dysfunction Status: Acute CHRISTINA ALEXIS MD Jan 17, 2019 09:29
--- NOTE | 2019-01-17 09:54 | PDOC ---
PULMONARY PROGRESS NOTES Subjective Hypoxic failure HEAVELY SEDATED ON PC MODE 15 PEEP 100 %, on propofol, versed, fentanyl, mod ett secretion. stiff lungs with high plateau pressure ON levo, started on CRRT yesterday Vitals Vital Signs Date Time Temp Pulse Resp B/P (MAP) Pulse Ox O2 Delivery O2 Flow Rate FiO2 01/17/19 09:00 102 24 121/44 (69) 95 Ventilator 01/17/19 08:00 98.4 98.4 Comments ros as mentioned as above discussed w rn other sys otherwise neg on vent sedated Lungs: Other (decrease bs) Cardiovascular: S1, S2 Abdomen: Soft, Non-tender, Other (DISTENDED no mass) Extremities: Other (EDEMA) Skin: Warm Labs Laboratory Tests Test 01/15/19 11:13 01/15/19 12:10 01/15/19 15:00 01/15/19 16:37 O2 Saturation 80 % (92-99) 93 % (92-99) Arterial Blood pH 7.32 (7.35-7.45) 7.42 (7.35-7.45) Arterial Blood pCO2 at Patient Temp 38 mmHg (35-46) 32 mmHg (35-46) Arterial Blood pO2 at Patient Temp 48 mmHg (85-108) 67 mmHg (85-108) Arterial Blood HCO3 19 mmol/L (21-28) 21 mmol/L (21-28) Arterial Blood Base Excess -6 mmol/L (-3-3) -3 mmol/L (-3-3) FiO2 100% 100% Glucose (Fingerstick) 79 mg/dL (70-99) 91 mg/dL (70-99) Test 01/15/19 17:45 01/15/19 20:00 01/15/19 23:58 01/16/19 00:01 Sodium Level 138 mmol/L (136-145) 136 mmol/L (136-145) Potassium Level 4.1 mmol/L (3.5-5.1) 4.2 mmol/L (3.5-5.1) Chloride Level 98 mmol/L (98-107) 97 mmol/L (98-107) Carbon Dioxide Level 22 mmol/L (21-32) 23 mmol/L (21-32) Anion Gap 18 (6-14) 16 (6-14) Blood Urea Nitrogen 42 mg/dL (8-26) 35 mg/dL (8-26) Creatinine 2.3 mg/dL (0.7-1.3) 2.0 mg/dL (0.7-1.3) Estimated GFR (Cockcroft-Gault) 32.0 37.6 Glucose Level 89 mg/dL (70-99) 154 mg/dL (70-99) Calcium Level 7.1 mg/dL (8.5-10.1) 7.1 mg/dL (8.5-10.1) Phosphorus Level 4.4 mg/dL (2.6-4.7) 3.6 mg/dL (2.6-4.7) Magnesium Level 2.1 mg/dL (1.8-2.4) 2.2 mg/dL (1.8-2.4) O2 Saturation 94 % (92-99) Arterial Blood pH 7.40 (7.35-7.45) Arterial Blood pCO2 at Patient Temp 32 mmHg (35-46) Arterial Blood pO2 at Patient Temp 77 mmHg (85-108) Arterial Blood HCO3 20 mmol/L (21-28) Arterial Blood Base Excess -5 mmol/L (-3-3) FiO2 100 Glucose (Fingerstick) 147 mg/dL (70-99) Test 01/16/19 05:30 01/16/19 09:25 01/16/19 09:40 01/16/19 13:33 White Blood Count 28.5 x10^3/uL (4.0-11.0) Red Blood Count 2.53 x10^6/uL (4.30-5.70) Hemoglobin 8.4 g/dL (13.0-17.5) Hematocrit 26.0 % (39.0-53.0) Mean Corpuscular Volume 103 fL (79-100) Mean Corpuscular Hemoglobin 33 pg (25-35) Mean Corpuscular Hemoglobin Concent 32 g/dL (31-37) Red Cell Distribution Width 18.6 % (11.5-14.5) Platelet Count 111 x10^3/uL (140-400) Neutrophils (%) (Auto) 84 % (31-73) Lymphocytes (%) (Auto) 12 % (24-48) Monocytes (%) (Auto) 3 % (0-9) Eosinophils (%) (Auto) 0 % (0-3) Basophils (%) (Auto) 1 % (0-3) Neutrophils # (Auto) 24.1 x10^3/uL (1.8-7.7) Lymphocytes # (Auto) 3.3 x10^3/uL (1.0-4.8) Monocytes # (Auto) 0.8 x10^3/uL (0.0-1.1) Eosinophils # (Auto) 0.1 x10^3/uL (0.0-0.7) Basophils # (Auto) 0.2 x10^3/uL (0.0-0.2) Sodium Level 136 mmol/L (136-145) Potassium Level 4.4 mmol/L (3.5-5.1) Chloride Level 98 mmol/L (98-107) Carbon Dioxide Level 22 mmol/L (21-32) Anion Gap 16 (6-14) Blood Urea Nitrogen 34 mg/dL (8-26) Creatinine 1.9 mg/dL (0.7-1.3) Estimated GFR (Cockcroft-Gault) 39.9 Glucose Level 133 mg/dL (70-99) Lactic Acid Level 10.1 mmol/L (0.4-2.0) 9.7 mmol/L (0.4-2.0) Calcium Level 7.4 mg/dL (8.5-10.1) Phosphorus Level 4.1 mg/dL (2.6-4.7) Magnesium Level 2.4 mg/dL (1.8-2.4) O2 Saturation 77 % (92-99) Arterial Blood pH 7.22 (7.35-7.45) Arterial Blood pCO2 at Patient Temp 48 mmHg (35-46) Arterial Blood pO2 at Patient Temp 52 mmHg (85-108) Arterial Blood HCO3 19 mmol/L (21-28) Arterial Blood Base Excess -9 mmol/L (-3-3) FiO2 100 Glucose (Fingerstick) 89 mg/dL (70-99) Test 01/16/19 14:15 01/16/19 15:30 01/16/19 17:17 01/16/19 22:00 Glucose (Fingerstick) 117 mg/dL (70-99) 78 mg/dL (70-99) Sodium Level 137 mmol/L (136-145) 137 mmol/L (136-145) Potassium Level 4.4 mmol/L (3.5-5.1) 4.6 mmol/L (3.5-5.1) Chloride Level 100 mmol/L (98-107) 100 mmol/L (98-107) Carbon Dioxide Level 20 mmol/L (21-32) 17 mmol/L (21-32) Anion Gap 17 (6-14) 20 (6-14) Blood Urea Nitrogen 29 mg/dL (8-26) 33 mg/dL (8-26) Creatinine 1.7 mg/dL (0.7-1.3) 1.9 mg/dL (0.7-1.3) Estimated GFR (Cockcroft-Gault) 45.3 39.9 Glucose Level 95 mg/dL (70-99) 76 mg/dL (70-99) Lactic Acid Level 12.1 mmol/L (0.4-2.0) 12.7 mmol/L (0.4-2.0) Calcium Level 7.2 mg/dL (8.5-10.1) 7.3 mg/dL (8.5-10.1) Phosphorus Level 4.1 mg/dL (2.6-4.7) 3.6 mg/dL (2.6-4.7) Magnesium Level 2.4 mg/dL (1.8-2.4) 2.4 mg/dL (1.8-2.4) Test 01/16/19 22:10 01/17/19 05:30 01/17/19 07:55 01/17/19 08:05 Glucose (Fingerstick) 75 mg/dL (70-99) White Blood Count 28.7 x10^3/uL (4.0-11.0) Red Blood Count 2.22 x10^6/uL (4.30-5.70) Hemoglobin 7.4 g/dL (13.0-17.5) Hematocrit 23.3 % (39.0-53.0) Mean Corpuscular Volume 105 fL (79-100) Mean Corpuscular Hemoglobin 33 pg (25-35) Mean Corpuscular Hemoglobin Concent 32 g/dL (31-37) Red Cell Distribution Width 19.6 % (11.5-14.5) Platelet Count 78 x10^3/uL (140-400) Neutrophils (%) (Auto) 86 % (31-73) Lymphocytes (%) (Auto) 11 % (24-48) Monocytes (%) (Auto) 2 % (0-9) Eosinophils (%) (Auto) 0 % (0-3) Basophils (%) (Auto) 1 % (0-3) Neutrophils # (Auto) 24.7 x10^3/uL (1.8-7.7) Lymphocytes # (Auto) 3.1 x10^3/uL (1.0-4.8) Monocytes # (Auto) 0.7 x10^3/uL (0.0-1.1) Eosinophils # (Auto) 0.1 x10^3/uL (0.0-0.7) Basophils # (Auto) 0.1 x10^3/uL (0.0-0.2) Lactic Acid Level 10.8 mmol/L (0.4-2.0) Sodium Level 137 mmol/L (136-145) Potassium Level 4.6 mmol/L (3.5-5.1) Chloride Level 100 mmol/L (98-107) Carbon Dioxide Level 20 mmol/L (21-32) Anion Gap 17 (6-14) Blood Urea Nitrogen 31 mg/dL (8-26) Creatinine 1.8 mg/dL (0.7-1.3) Estimated GFR (Cockcroft-Gault) 42.4 Glucose Level 110 mg/dL (70-99) Calcium Level 7.6 mg/dL (8.5-10.1) Phosphorus Level 3.3 mg/dL (2.6-4.7) Magnesium Level 2.3 mg/dL (1.8-2.4) O2 Saturation 88 % (92-99) Arterial Blood pH 7.26 (7.35-7.45) Arterial Blood pCO2 at Patient Temp 37 mmHg (35-46) Arterial Blood pO2 at Patient Temp 63 mmHg (85-108) Arterial Blood HCO3 16 mmol/L (21-28) Arterial Blood Base Excess -10 mmol/L (-3-3) FiO2 100 Laboratory Tests Test 01/16/19 13:33 01/16/19 14:15 01/16/19 15:30 01/16/19 17:17 Glucose (Fingerstick) 89 mg/dL (70-99) 117 mg/dL (70-99) 78 mg/dL (70-99) Sodium Level 137 mmol/L (136-145) Potassium Level 4.4 mmol/L (3.5-5.1) Chloride Level 100 mmol/L (98-107) Carbon Dioxide Level 20 mmol/L (21-32) Anion Gap 17 (6-14) Blood Urea Nitrogen 29 mg/dL (8-26) Creatinine 1.7 mg/dL (0.7-1.3) Estimated GFR (Cockcroft-Gault) 45.3 Glucose Level 95 mg/dL (70-99) Lactic Acid Level 12.1 mmol/L (0.4-2.0) Calcium Level 7.2 mg/dL (8.5-10.1) Phosphorus Level 4.1 mg/dL (2.6-4.7) Magnesium Level 2.4 mg/dL (1.8-2.4) Test 01/16/19 22:00 01/16/19 22:10 01/17/19 05:30 01/17/19 07:55 Sodium Level 137 mmol/L (136-145) 137 mmol/L (136-145) Potassium Level 4.6 mmol/L (3.5-5.1) 4.6 mmol/L (3.5-5.1) Chloride Level 100 mmol/L (98-107) 100 mmol/L (98-107) Carbon Dioxide Level 17 mmol/L (21-32) 20 mmol/L (21-32) Anion Gap 20 (6-14) 17 (6-14) Blood Urea Nitrogen 33 mg/dL (8-26) 31 mg/dL (8-26) Creatinine 1.9 mg/dL (0.7-1.3) 1.8 mg/dL (0.7-1.3) Estimated GFR (Cockcroft-Gault) 39.9 42.4 Glucose Level 76 mg/dL (70-99) 110 mg/dL (70-99) Lactic Acid Level 12.7 mmol/L (0.4-2.0) 10.8 mmol/L (0.4-2.0) Calcium Level 7.3 mg/dL (8.5-10.1) 7.6 mg/dL (8.5-10.1) Phosphorus Level 3.6 mg/dL (2.6-4.7) 3.3 mg/dL (2.6-4.7) Magnesium Level 2.4 mg/dL (1.8-2.4) 2.3 mg/dL (1.8-2.4) Glucose (Fingerstick) 75 mg/dL (70-99) White Blood Count 28.7 x10^3/uL (4.0-11.0) Red Blood Count 2.22 x10^6/uL (4.30-5.70) Hemoglobin 7.4 g/dL (13.0-17.5) Hematocrit 23.3 % (39.0-53.0) Mean Corpuscular Volume 105 fL (79-100) Mean Corpuscular Hemoglobin 33 pg (25-35) Mean Corpuscular Hemoglobin Concent 32 g/dL (31-37) Red Cell Distribution Width 19.6 % (11.5-14.5) Platelet Count 78 x10^3/uL (140-400) Neutrophils (%) (Auto) 86 % (31-73) Lymphocytes (%) (Auto) 11 % (24-48) Monocytes (%) (Auto) 2 % (0-9) Eosinophils (%) (Auto) 0 % (0-3) Basophils (%) (Auto) 1 % (0-3) Neutrophils # (Auto) 24.7 x10^3/uL (1.8-7.7) Lymphocytes # (Auto) 3.1 x10^3/uL (1.0-4.8) Monocytes # (Auto) 0.7 x10^3/uL (0.0-1.1) Eosinophils # (Auto) 0.1 x10^3/uL (0.0-0.7) Basophils # (Auto) 0.1 x10^3/uL (0.0-0.2) Test 01/17/19 08:05 O2 Saturation 88 % (92-99) Arterial Blood pH 7.26 (7.35-7.45) Arterial Blood pCO2 at Patient Temp 37 mmHg (35-46) Arterial Blood pO2 at Patient Temp 63 mmHg (85-108) Arterial Blood HCO3 16 mmol/L (21-28) Arterial Blood Base Excess -10 mmol/L (-3-3) FiO2 100 Comments cxr reviewed, 01/16 ett ok 1. Bilateral infiltrates worse on right no cxr yet today -- ordered and will review Impression . IMPRESSION: 1. Acute respiratory failure, multifactorial, secondary to multiorgan failure. Now with worsening hypoxia/ hypercapnia.likely superimposed CHF/ underlying aspiration pneumonitis/ ARDS, no evidence of hepato-pulmonary shunt on Bubble echo 2. End-stage liver disease with persistent abnormal LFT 3. Multiorgan failure. 4. Renal failure. ? hepato renal syndrome, inititated CRRT 5. Acute gastrointestinal bleed.? MV Tear, stable Hb 6. sepsis. 7. Leukocytosis. marked increase, no fever, possible leukemoid reaction 8. Hematemesis.resolved 9. Rhabdomyolysis. 10. Alcohol abuse. 11. Ascites. 12. Electrolyte abnormalities. 13. fever,resolved Imaging: EGD 01/08 E--NO VARICES. Erosions distally c/w reflux/repeated emesis. One quite long narrow erosion which could have been a M-W. No active bleeding or clot. G--Not much retained blood after OG suction and Reglan. NO gastric varices. Linear erosions along the rugae in fundus and body c/w alcoholic or stress gastritis. Scattered "bruises" from OG tube. No ulcer, etc. D--Normal to second portion. IMP: Reflux esophagitis. ? recent M-W tear. Alcoholic gastritis. No active bleeding or clot seen. Plan . PC/ENZO PEEP of 15, cont 100 Fi02 titration, f/u ABG, OK with permissive hypercapnia. will be ok with PH> 7.25 Not stable for Bronch, Not indicated at present 1. D/W Dr Allen Domínguez. UF. with CRRT 2. Continue BS antibiotics per Infectious Disease 3. F/U CXR 4. remains critical 5. Monitor hemoglobin and hematocrit. 6. Follow GI recommendation.f/u LFT 7. Alcohol withdrawal protocol. 8. Nutrition, on TPN, on CRRT / keeping neg on fluid balance 9. echo with bubble study Neg d/w family in detail and DR Gabriel/ Pt remains critically ill/ very poor prognosis SUSAN MARTINEZ MD Jan 17, 2019 09:54
[2019-01-17] MEDS: NOREPINEPHRIN 8MG/250ML PREMIX 250 ML IV PRN (11:34)
[2019-01-17] MEDS: VASOPRESSIN 40 UNIT in IV DEXTROSE 5% 100ML 100 ML IV PRN (11:34)
[2019-01-17 12:13] LABS: CALCIUM 7.4 mg/dL (8.5-10.1); CREATININE 1.8 mg/dL (0.7-1.3); GFR 42.4; MAGNESIUM 2.3 mg/dL (1.8-2.4); PHOSPHORUS 2.9 mg/dL (2.6-4.7); POTASSIUM 4.6 mmol/L (3.5-5.1)
--- NOTE | 2019-01-17 12:24 | PDOC ---
G I PROGRESS NOTE Subjective Sedated on ventilator. Objective Elevated NG output. Few stools, if any. Physical Exam Lungs with limited air movement. RRR Abdomen soft, distended. No good bowel sounds. Review of Relevant I have reviewed the following items karen (where applicable) has been applied. Labs Laboratory Tests Test 01/15/19 15:00 01/15/19 16:37 01/15/19 17:45 01/15/19 20:00 O2 Saturation 93 % (92-99) 94 % (92-99) Arterial Blood pH 7.42 (7.35-7.45) 7.40 (7.35-7.45) Arterial Blood pCO2 at Patient Temp 32 mmHg (35-46) 32 mmHg (35-46) Arterial Blood pO2 at Patient Temp 67 mmHg (85-108) 77 mmHg (85-108) Arterial Blood HCO3 21 mmol/L (21-28) 20 mmol/L (21-28) Arterial Blood Base Excess -3 mmol/L (-3-3) -5 mmol/L (-3-3) FiO2 100% 100 Glucose (Fingerstick) 91 mg/dL (70-99) Sodium Level 138 mmol/L (136-145) Potassium Level 4.1 mmol/L (3.5-5.1) Chloride Level 98 mmol/L (98-107) Carbon Dioxide Level 22 mmol/L (21-32) Anion Gap 18 (6-14) Blood Urea Nitrogen 42 mg/dL (8-26) Creatinine 2.3 mg/dL (0.7-1.3) Estimated GFR (Cockcroft-Gault) 32.0 Glucose Level 89 mg/dL (70-99) Calcium Level 7.1 mg/dL (8.5-10.1) Phosphorus Level 4.4 mg/dL (2.6-4.7) Magnesium Level 2.1 mg/dL (1.8-2.4) Test 01/15/19 23:58 01/16/19 00:01 01/16/19 05:30 01/16/19 09:25 Glucose (Fingerstick) 147 mg/dL (70-99) Sodium Level 136 mmol/L (136-145) 136 mmol/L (136-145) Potassium Level 4.2 mmol/L (3.5-5.1) 4.4 mmol/L (3.5-5.1) Chloride Level 97 mmol/L (98-107) 98 mmol/L (98-107) Carbon Dioxide Level 23 mmol/L (21-32) 22 mmol/L (21-32) Anion Gap 16 (6-14) 16 (6-14) Blood Urea Nitrogen 35 mg/dL (8-26) 34 mg/dL (8-26) Creatinine 2.0 mg/dL (0.7-1.3) 1.9 mg/dL (0.7-1.3) Estimated GFR (Cockcroft-Gault) 37.6 39.9 Glucose Level 154 mg/dL (70-99) 133 mg/dL (70-99) Calcium Level 7.1 mg/dL (8.5-10.1) 7.4 mg/dL (8.5-10.1) Phosphorus Level 3.6 mg/dL (2.6-4.7) 4.1 mg/dL (2.6-4.7) Magnesium Level 2.2 mg/dL (1.8-2.4) 2.4 mg/dL (1.8-2.4) White Blood Count 28.5 x10^3/uL (4.0-11.0) Red Blood Count 2.53 x10^6/uL (4.30-5.70) Hemoglobin 8.4 g/dL (13.0-17.5) Hematocrit 26.0 % (39.0-53.0) Mean Corpuscular Volume 103 fL (79-100) Mean Corpuscular Hemoglobin 33 pg (25-35) Mean Corpuscular Hemoglobin Concent 32 g/dL (31-37) Red Cell Distribution Width 18.6 % (11.5-14.5) Platelet Count 111 x10^3/uL (140-400) Neutrophils (%) (Auto) 84 % (31-73) Lymphocytes (%) (Auto) 12 % (24-48) Monocytes (%) (Auto) 3 % (0-9) Eosinophils (%) (Auto) 0 % (0-3) Basophils (%) (Auto) 1 % (0-3) Neutrophils # (Auto) 24.1 x10^3/uL (1.8-7.7) Lymphocytes # (Auto) 3.3 x10^3/uL (1.0-4.8) Monocytes # (Auto) 0.8 x10^3/uL (0.0-1.1) Eosinophils # (Auto) 0.1 x10^3/uL (0.0-0.7) Basophils # (Auto) 0.2 x10^3/uL (0.0-0.2) Lactic Acid Level 10.1 mmol/L (0.4-2.0) 9.7 mmol/L (0.4-2.0) Test 01/16/19 09:40 01/16/19 13:33 01/16/19 14:15 01/16/19 15:30 O2 Saturation 77 % (92-99) Arterial Blood pH 7.22 (7.35-7.45) Arterial Blood pCO2 at Patient Temp 48 mmHg (35-46) Arterial Blood pO2 at Patient Temp 52 mmHg (85-108) Arterial Blood HCO3 19 mmol/L (21-28) Arterial Blood Base Excess -9 mmol/L (-3-3) FiO2 100 Glucose (Fingerstick) 89 mg/dL (70-99) 117 mg/dL (70-99) Sodium Level 137 mmol/L (136-145) Potassium Level 4.4 mmol/L (3.5-5.1) Chloride Level 100 mmol/L (98-107) Carbon Dioxide Level 20 mmol/L (21-32) Anion Gap 17 (6-14) Blood Urea Nitrogen 29 mg/dL (8-26) Creatinine 1.7 mg/dL (0.7-1.3) Estimated GFR (Cockcroft-Gault) 45.3 Glucose Level 95 mg/dL (70-99) Lactic Acid Level 12.1 mmol/L (0.4-2.0) Calcium Level 7.2 mg/dL (8.5-10.1) Phosphorus Level 4.1 mg/dL (2.6-4.7) Magnesium Level 2.4 mg/dL (1.8-2.4) Test 01/16/19 17:17 01/16/19 22:00 01/16/19 22:10 01/17/19 05:30 Glucose (Fingerstick) 78 mg/dL (70-99) 75 mg/dL (70-99) Sodium Level 137 mmol/L (136-145) Potassium Level 4.6 mmol/L (3.5-5.1) Chloride Level 100 mmol/L (98-107) Carbon Dioxide Level 17 mmol/L (21-32) Anion Gap 20 (6-14) Blood Urea Nitrogen 33 mg/dL (8-26) Creatinine 1.9 mg/dL (0.7-1.3) Estimated GFR (Cockcroft-Gault) 39.9 Glucose Level 76 mg/dL (70-99) Lactic Acid Level 12.7 mmol/L (0.4-2.0) 10.8 mmol/L (0.4-2.0) Calcium Level 7.3 mg/dL (8.5-10.1) Phosphorus Level 3.6 mg/dL (2.6-4.7) Magnesium Level 2.4 mg/dL (1.8-2.4) White Blood Count 28.7 x10^3/uL (4.0-11.0) Red Blood Count 2.22 x10^6/uL (4.30-5.70) Hemoglobin 7.4 g/dL (13.0-17.5) Hematocrit 23.3 % (39.0-53.0) Mean Corpuscular Volume 105 fL (79-100) Mean Corpuscular Hemoglobin 33 pg (25-35) Mean Corpuscular Hemoglobin Concent 32 g/dL (31-37) Red Cell Distribution Width 19.6 % (11.5-14.5) Platelet Count 78 x10^3/uL (140-400) Neutrophils (%) (Auto) 86 % (31-73) Lymphocytes (%) (Auto) 11 % (24-48) Monocytes (%) (Auto) 2 % (0-9) Eosinophils (%) (Auto) 0 % (0-3) Basophils (%) (Auto) 1 % (0-3) Neutrophils # (Auto) 24.7 x10^3/uL (1.8-7.7) Lymphocytes # (Auto) 3.1 x10^3/uL (1.0-4.8) Monocytes # (Auto) 0.7 x10^3/uL (0.0-1.1) Eosinophils # (Auto) 0.1 x10^3/uL (0.0-0.7) Basophils # (Auto) 0.1 x10^3/uL (0.0-0.2) Test 01/17/19 07:55 01/17/19 08:05 01/17/19 11:42 Sodium Level 137 mmol/L (136-145) 137 mmol/L (136-145) Potassium Level 4.6 mmol/L (3.5-5.1) 4.6 mmol/L (3.5-5.1) Chloride Level 100 mmol/L (98-107) 101 mmol/L (98-107) Carbon Dioxide Level 20 mmol/L (21-32) 21 mmol/L (21-32) Anion Gap 17 (6-14) 15 (6-14) Blood Urea Nitrogen 31 mg/dL (8-26) 31 mg/dL (8-26) Creatinine 1.8 mg/dL (0.7-1.3) 1.8 mg/dL (0.7-1.3) Estimated GFR (Cockcroft-Gault) 42.4 42.4 Glucose Level 110 mg/dL (70-99) 117 mg/dL (70-99) Calcium Level 7.6 mg/dL (8.5-10.1) 7.4 mg/dL (8.5-10.1) Phosphorus Level 3.3 mg/dL (2.6-4.7) 2.9 mg/dL (2.6-4.7) Magnesium Level 2.3 mg/dL (1.8-2.4) 2.3 mg/dL (1.8-2.4) O2 Saturation 88 % (92-99) Arterial Blood pH 7.26 (7.35-7.45) Arterial Blood pCO2 at Patient Temp 37 mmHg (35-46) Arterial Blood pO2 at Patient Temp 63 mmHg (85-108) Arterial Blood HCO3 16 mmol/L (21-28) Arterial Blood Base Excess -10 mmol/L (-3-3) FiO2 100 Laboratory Tests Test 01/16/19 13:33 01/16/19 14:15 01/16/19 15:30 01/16/19 17:17 Glucose (Fingerstick) 89 mg/dL (70-99) 117 mg/dL (70-99) 78 mg/dL (70-99) Sodium Level 137 mmol/L (136-145) Potassium Level 4.4 mmol/L (3.5-5.1) Chloride Level 100 mmol/L (98-107) Carbon Dioxide Level 20 mmol/L (21-32) Anion Gap 17 (6-14) Blood Urea Nitrogen 29 mg/dL (8-26) Creatinine 1.7 mg/dL (0.7-1.3) Estimated GFR (Cockcroft-Gault) 45.3 Glucose Level 95 mg/dL (70-99) Lactic Acid Level 12.1 mmol/L (0.4-2.0) Calcium Level 7.2 mg/dL (8.5-10.1) Phosphorus Level 4.1 mg/dL (2.6-4.7) Magnesium Level 2.4 mg/dL (1.8-2.4) Test 01/16/19 22:00 01/16/19 22:10 01/17/19 05:30 01/17/19 07:55 Sodium Level 137 mmol/L (136-145) 137 mmol/L (136-145) Potassium Level 4.6 mmol/L (3.5-5.1) 4.6 mmol/L (3.5-5.1) Chloride Level 100 mmol/L (98-107) 100 mmol/L (98-107) Carbon Dioxide Level 17 mmol/L (21-32) 20 mmol/L (21-32) Anion Gap 20 (6-14) 17 (6-14) Blood Urea Nitrogen 33 mg/dL (8-26) 31 mg/dL (8-26) Creatinine 1.9 mg/dL (0.7-1.3) 1.8 mg/dL (0.7-1.3) Estimated GFR (Cockcroft-Gault) 39.9 42.4 Glucose Level 76 mg/dL (70-99) 110 mg/dL (70-99) Lactic Acid Level 12.7 mmol/L (0.4-2.0) 10.8 mmol/L (0.4-2.0) Calcium Level 7.3 mg/dL (8.5-10.1) 7.6 mg/dL (8.5-10.1) Phosphorus Level 3.6 mg/dL (2.6-4.7) 3.3 mg/dL (2.6-4.7) Magnesium Level 2.4 mg/dL (1.8-2.4) 2.3 mg/dL (1.8-2.4) Glucose (Fingerstick) 75 mg/dL (70-99) White Blood Count 28.7 x10^3/uL (4.0-11.0) Red Blood Count 2.22 x10^6/uL (4.30-5.70) Hemoglobin 7.4 g/dL (13.0-17.5) Hematocrit 23.3 % (39.0-53.0) Mean Corpuscular Volume 105 fL (79-100) Mean Corpuscular Hemoglobin 33 pg (25-35) Mean Corpuscular Hemoglobin Concent 32 g/dL (31-37) Red Cell Distribution Width 19.6 % (11.5-14.5) Platelet Count 78 x10^3/uL (140-400) Neutrophils (%) (Auto) 86 % (31-73) Lymphocytes (%) (Auto) 11 % (24-48) Monocytes (%) (Auto) 2 % (0-9) Eosinophils (%) (Auto) 0 % (0-3) Basophils (%) (Auto) 1 % (0-3) Neutrophils # (Auto) 24.7 x10^3/uL (1.8-7.7) Lymphocytes # (Auto) 3.1 x10^3/uL (1.0-4.8) Monocytes # (Auto) 0.7 x10^3/uL (0.0-1.1) Eosinophils # (Auto) 0.1 x10^3/uL (0.0-0.7) Basophils # (Auto) 0.1 x10^3/uL (0.0-0.2) Test 01/17/19 08:05 01/17/19 11:42 O2 Saturation 88 % (92-99) Arterial Blood pH 7.26 (7.35-7.45) Arterial Blood pCO2 at Patient Temp 37 mmHg (35-46) Arterial Blood pO2 at Patient Temp 63 mmHg (85-108) Arterial Blood HCO3 16 mmol/L (21-28) Arterial Blood Base Excess -10 mmol/L (-3-3) FiO2 100 Sodium Level 137 mmol/L (136-145) Potassium Level 4.6 mmol/L (3.5-5.1) Chloride Level 101 mmol/L (98-107) Carbon Dioxide Level 21 mmol/L (21-32) Anion Gap 15 (6-14) Blood Urea Nitrogen 31 mg/dL (8-26) Creatinine 1.8 mg/dL (0.7-1.3) Estimated GFR (Cockcroft-Gault) 42.4 Glucose Level 117 mg/dL (70-99) Calcium Level 7.4 mg/dL (8.5-10.1) Phosphorus Level 2.9 mg/dL (2.6-4.7) Magnesium Level 2.3 mg/dL (1.8-2.4) Microbiology 01/14/19 Blood Culture - Preliminary, Resulted NO GROWTH AFTER 3 DAYS 01/08/19 Urine Culture - Final, Complete 01/08/19 Urine Culture Result 1 ([facility]) - Final, Complete Vitals/I & O Vital Sign - Last 24 Hours 01/16/19 01/16/19 01/16/19 01/16/19 12:29 13:41 14:00 14:30 Pulse 86 92 98 Resp 26 24 24 B/P (MAP) 111/40 (63) 110/37 (61) 116/53 (74) Pulse Ox 91 96 94 92 O2 Delivery Ventilator Ventilator Ventilator Ventilator 01/16/19 01/16/19 01/16/19 01/16/19 15:00 15:30 16:00 16:00 Temp 98.0 99.0 98.0 99.0 Pulse 94 94 98 Resp 24 24 24 B/P (MAP) 91/42 (58) 92/38 (56) 87/42 (57) Pulse Ox 87 91 91 O2 Delivery Ventilator Ventilator Ventilator Mechanical Ventilator 01/16/19 01/16/19 01/16/19 01/16/19 16:30 16:30 16:30 17:00 Pulse 102 99 100 Resp 24 24 B/P (MAP) 104/39 (60) 104/60 (75) 110/55 (73) Pulse Ox 89 90 91 89 O2 Delivery Ventilator Ventilator Ventilator Ventilator 01/16/19 01/16/19 01/16/19 01/16/19 17:18 17:30 18:00 19:00 Temp 99.3 99.3 Pulse 104 111 111 B/P (MAP) 108/54 (72) 111/53 (72) 111/53 (72) Pulse Ox 92 90 94 93 O2 Delivery Ventilator Ventilator Ventilator Ventilator 01/16/19 01/16/19 01/16/19 01/16/19 20:00 20:00 20:56 21:00 Temp 98.5 98.5 Pulse 93 93 Resp 24 24 B/P (MAP) 89/43 (58) 85/39 (54) Pulse Ox 96 95 96 O2 Delivery Ventilator Mechanical Ventilator Ventilator Ventilator 01/16/19 01/16/19 01/16/19 01/16/19 22:00 23:00 23:24 23:59 Pulse 97 110 Resp 24 24 B/P (MAP) 90/45 (60) 97/44 (61) Pulse Ox 97 98 98 O2 Delivery Ventilator Ventilator Ventilator Mechanical Ventilator 01/17/19 01/17/19 01/17/19 01/17/19 00:00 00:06 01:00 01:45 Temp 98.8 98.8 Pulse 108 106 Resp 24 26 B/P (MAP) 103/43 (63) 116/37 (63) Pulse Ox 96 98 99 98 O2 Delivery Ventilator Ventilator Ventilator Ventilator 01/17/19 01/17/19 01/17/19 01/17/19 02:00 02:06 03:00 03:45 Pulse 104 104 Resp 28 24 B/P (MAP) 91/42 (58) 103/52 (69) Pulse Ox 100 98 100 98 O2 Delivery Ventilator Ventilator Ventilator Ventilator 01/17/19 01/17/19 01/17/19 01/17/19 04:00 04:00 05:00 06:00 Temp 98.9 98.9 Pulse 104 105 110 Resp 24 24 24 B/P (MAP) 91/48 (62) 118/49 (72) 112/41 (64) Pulse Ox 100 100 100 O2 Delivery Ventilator Mechanical Ventilator Ventilator Ventilator 01/17/19 01/17/19 01/17/19 01/17/19 07:00 07:57 08:00 08:00 Temp 98.4 98.4 Pulse 116 110 Resp 24 24 B/P (MAP) 102/36 (58) 128/45 (72) Pulse Ox 100 96 96 O2 Delivery Ventilator Ventilator Mechanical Ventilator Ventilator 01/17/19 01/17/19 01/17/19 01/17/19 09:00 10:00 10:54 11:00 Pulse 102 99 100 Resp 24 24 24 B/P (MAP) 121/44 (69) 116/58 (77) 136/46 (76) Pulse Ox 95 100 100 100 O2 Delivery Ventilator Ventilator Ventilator O2 Flow Rate 2.0 01/17/19 01/17/19 01/17/19 01/17/19 11:24 12:00 12:00 12:09 Temp 98.2 98.2 Pulse 99 Resp 24 B/P (MAP) 136/54 (81) Pulse Ox 100 96 96 O2 Delivery Mechanical Ventilator Ventilator Ventilator O2 Flow Rate 2.0 Intake and Output 01/16/19 01/16/19 01/17/19 15:00 23:00 07:00 Intake Total 300 ml 1892 ml 30513 ml Output Total 9 ml 0 ml 0 ml Balance 291 ml 1892 ml 84911 ml Problem List Problems Medical Problems: (1) Acute hepatic encephalopathy Status: Acute (2) Acute upper GI bleed Status: Acute (3) Ascites Status: Acute (4) Hypokalemia Status: Acute (5) Multiple organ system failure Status: Acute (6) Severe sepsis with acute organ dysfunction Status: Acute Assessment Remains acidotic/relatively hypoxic with elevated lactate/ARDS. Ileus. Probably early cirrhosis, though good response to vitamin K c/w some preserved synthetic function. Plan of Care: Continue current Tx, Mgmt Plan of Care Note Await resolution of ileus. ANA MCKEON MD Jan 17, 2019 12:23
--- NOTE | 2019-01-17 12:44 | RAD ---
PORTABLE CHEST 1V INDICATION: Respiratory failure. COMPARISON STUDY: 01/16/2019. FINDINGS: Life Support Devices: Stable endotracheal tube, enteric tube, right IJ dual-lumen catheter, and additional right-sided IJ central venous catheter. Lungs: Low lung volume. Progression of diffuse right greater than left heterogeneous opacities. Indistinct pulmonary vasculature. Pleura: Stable pleural spaces. Heart and Mediastinum: Stable cardiomediastinal silhouette and great vessels. IMPRESSION: 1. Stable life support devices. 2. Progression of diffuse right greater than left heterogeneous opacities. Electronically signed by: Rico Solis MD (01/17/2019 12:41 PM) [facility]
[2019-01-17] MEDS: IV NORMAL SALINE 1000ML BAG 1,000 ML IV SCH (13:38)
[2019-01-17] MEDS: TPN PER PHARMACY MC PRN ×2 (13:43→13:47)
--- NOTE | 2019-01-17 13:48 | NUR ---
Pharmacy TPN Dosing Note S: ULI CARRIZALES is a 38 year old M Currently receiving Central Continuous TPN started 01/13/19 B:Pertinent PMH: Ileus, high residuals with tube feeding Height: 5 feet, 7 inches Weight: 108.187636 kg Current diet: LABS: Sodium: 137 Potassium: 4.6 Chloride: 100 Calcium: 7.4 Corrected Calcium: 9.56 Magnesium: 2.3 CO2: 20 SCr: 1.8 Glucose: 110 Albumin: 1.3 AST: 232 ALT: 81 TPN FORMULA: TPN TYPE: Central Continuous AMINO ACIDS: 100 gm DEXTROSE: 225 gm LIPIDS: 20 gm SODIUM CHLORIDE: 80 mEq SODIUM ACETATE: - mEq SODIUM PHOSPHATE: - mmol POTASSIUM CHLORIDE: - mEq POTASSIUM ACETATE: - mEq POTASSIUM PHOSPHATE: - mmol MAGNESIUM: - mEq CALCIUM: 10 mEq INSULIN: units MULTIPLE VITAMIN: 10 ml TRACE ELEMENTS: 1 ml(s) TPN PLAN: 01/17 WILL REMOVE NACETATE AND INCREASE NACL TO 80 MEQ.. R: Continue TPN AT 63ML/HR Will monitor electrolytes, glucose, and tolerance to TPN. ANT [facility]AS [facility], 01/17/19 [id number]
[2019-01-17] MEDS: [UNRECOGNIZED DRUG - OTHER] IV SCH ×8 (14:59→23:26)
[2019-01-17] MEDS: POTASSIUM CHLORIDE IV SCH ×8 (14:59→23:26)
[2019-01-17] MEDS: SODIUM BICARBONATE IV SCH ×8 (14:59→23:26)
[2019-01-17 16:48] LABS: CALCIUM 7.2 mg/dL (8.5-10.1); CREATININE 1.7 mg/dL (0.7-1.3); GFR 45.3; MAGNESIUM 2.4 mg/dL (1.8-2.4); PHOSPHORUS 2.3 mg/dL (2.6-4.7); POTASSIUM 4.3 mmol/L (3.5-5.1)
[2019-01-17] MEDS ORDERED: POTASSIUM PHOSPHATE DIBASIC 20 MMOL in IV NORMAL SALINE 250ML 250 ML IV ONE (17:45)
[2019-01-17] MEDS: DEXTROSE 70% IV SCH ×9 (22:00)
[2019-01-17] MEDS ORDERED: [UNRECOGNIZED DRUG - OTHER] IV SCH ×8 (22:00)
[2019-01-17] MEDS ORDERED: DEXTROSE 70% IV SCH ×8 (22:00)
[2019-01-17] MEDS: AMINO ACID IV SCH ×9 (22:00)
[2019-01-17] MEDS: [UNRECOGNIZED DRUG - OTHER] IV SCH ×9 (22:00)
[2019-01-17] MEDS ORDERED: AMINO ACID IV SCH ×8 (22:00)
[2019-01-17] MEDS ORDERED: TOTAL PARENTERAL NUTRITION IV SCH ×8 (22:00)
[2019-01-17] MEDS: TOTAL PARENTERAL NUTRITION IV SCH ×9 (22:00)
[2019-01-18] VITALS (27 sets, daily range): BP systolic 85–132; BP diastolic 37–60
[2019-01-18 00:32] LABS: CALCIUM 7.2 mg/dL (8.5-10.1); CREATININE 1.8 mg/dL (0.7-1.3); GFR 42.4; MAGNESIUM 2.3 mg/dL (1.8-2.4); PHOSPHORUS 3.6 mg/dL (2.6-4.7); POTASSIUM 4.7 mmol/L (3.5-5.1)
[2019-01-18] MEDS: MIDAZOLAM 100mg/100ml NS BAG 100 ML IV PRN ×2 (01:35→18:17)
[2019-01-18] MEDS: [UNRECOGNIZED DRUG - OTHER] IV SCH ×13 (01:35→08:17)
[2019-01-18] MEDS: SODIUM BICARBONATE IV SCH ×13 (01:35→08:17)
[2019-01-18] MEDS: POTASSIUM CHLORIDE IV SCH ×58 (01:35→23:09)
[2019-01-18] MEDS: VECURONIUM BOLUS 10 MG VIAL. IV PRN ×2 (04:33→11:14)
[2019-01-18] MEDS: DEXMEDETOMIDINE 400 MCG in IV NORMAL SALINE 100ML 96 ML IV PRN ×4 (04:50→18:18)
[2019-01-18] MEDS: VASOPRESSIN 40 UNIT in IV DEXTROSE 5% 100ML 100 ML IV PRN (04:51)
[2019-01-18] MEDS: PIPERACILLIN/TAZOBACTAM 3.375 GM in IV NORMAL SALINE 50ML 50 ML IV SCH (05:54)
[2019-01-18] MEDS: ALBUMIN HUMAN 25% 100 ML IV SCH ×4 (05:54→23:52)
[2019-01-18 06:08] LABS: BASO # 0.1 x10^3/uL (0.0-0.2); BASO % 0 % (0-3); EOS # 0.1 x10^3/uL (0.0-0.7); EOS % 1 % (0-3); LYMPH # 1.9 x10^3/uL (1.0-4.8); LYMPH % 12 % (24-48); MEAN CORPUSCULAR HEMOGLOBIN 34 pg (25-35); MEAN CORPUSCULAR HGB CONC 32 g/dL (31-37); MEAN CORPUSCULAR VOLUME 105 fL (79-100); MONO # 0.4 x10^3/uL (0.0-1.1); MONO % 3 % (0-9); NEUT # 13.3 x10^3/uL (1.8-7.7); NEUT % 85 % (31-73); RED BLOOD COUNT 1.88 x10^6/uL (4.30-5.70); RED CELL DISTRIBUTION WIDTH 19.4 % (11.5-14.5); WHITE BLOOD COUNT 15.7 x10^3/uL (4.0-11.0)
--- NOTE | 2019-01-18 06:45 | NUR ---
At 0620 pt began having copious amounts of rust colored expectorate coming out of ET tube. The fluid was drained and the HME filter was replaced due to extreme saturation. During this time Pt oxygen saturation began to drop rapidly from 93% down to 75%. Pt has a history of slow recuperation of Spo2. HR [id number], BP 111/68, SPO2 78%. Pt is still sedated, will continue to monitor.
[2019-01-18 07:20] LABS: HEMOGLOBIN 6.3 g/dL (13.0-17.5)
[2019-01-18 07:21] LABS: HEMATOCRIT 19.6 % (39.0-53.0); PLATELET COUNT 44 x10^3/uL (140-400)
[2019-01-18] MEDS: INSULIN LISPRO 300 UNITS/3 ML VIAL. SQ SCH ×3 (08:00→17:00)
[2019-01-18 08:33] LABS: CALCIUM 7.2 mg/dL (8.5-10.1); CREATININE 1.5 mg/dL (0.7-1.3); GFR 52.4; MAGNESIUM 2.3 mg/dL (1.8-2.4); PHOSPHORUS 2.2 mg/dL (2.6-4.7); POTASSIUM 4.1 mmol/L (3.5-5.1)
[2019-01-18] MEDS: PANTOPRAZOLE IV PUSH 40 MG VIAL. IVP SCH (08:45)
--- NOTE | 2019-01-18 08:47 | PDOC ---
Dialysis Progress Note Dialysis Note Dialysis Note Seen on CRRT tolerating treatment Okay so far Vitals on CRRT : 116/60 88 General Appearance: remains heavily Sedated and intubated on the Vent Neck: No JVD + JVP Chest: occ rales Heart: S1 S2 Abdomen - Soft NT ND Extremities - + 3 Edema all over DOMONIQUE/ ATN: Ct CRRT as ordered. Will gradually begin Uf as elvia. ^ed lactate not rechecked but AG is not impressive. elytes to be adjusted with CRRT and replacements prn Resp Failure: on the Vent with ? ARDS presumed due to Aspiration. Will restart gentle UF to facilitate respiratory status. Unclear to me if elevated lactic acid as a result of hypoperfusion or liver dysfunction Vitals Vital Signs Vital Signs Date Time Temp Pulse Resp B/P (MAP) Pulse Ox O2 Delivery O2 Flow Rate FiO2 01/18/19 08:00 Mechanical Ventilator 01/18/19 08:00 95.0 96 24 106/52 (70) 85 95.0 01/17/19 11:24 2.0 Labs Last Labs Laboratory Tests Test 01/16/19 09:25 01/16/19 09:40 01/16/19 13:33 01/16/19 14:15 Lactic Acid Level 9.7 mmol/L (0.4-2.0) O2 Saturation 77 % (92-99) Arterial Blood pH 7.22 (7.35-7.45) Arterial Blood pCO2 at Patient Temp 48 mmHg (35-46) Arterial Blood pO2 at Patient Temp 52 mmHg (85-108) Arterial Blood HCO3 19 mmol/L (21-28) Arterial Blood Base Excess -9 mmol/L (-3-3) FiO2 100 Glucose (Fingerstick) 89 mg/dL (70-99) 117 mg/dL (70-99) Test 01/16/19 15:30 01/16/19 17:17 01/16/19 22:00 01/16/19 22:10 Sodium Level 137 mmol/L (136-145) 137 mmol/L (136-145) Potassium Level 4.4 mmol/L (3.5-5.1) 4.6 mmol/L (3.5-5.1) Chloride Level 100 mmol/L (98-107) 100 mmol/L (98-107) Carbon Dioxide Level 20 mmol/L (21-32) 17 mmol/L (21-32) Anion Gap 17 (6-14) 20 (6-14) Blood Urea Nitrogen 29 mg/dL (8-26) 33 mg/dL (8-26) Creatinine 1.7 mg/dL (0.7-1.3) 1.9 mg/dL (0.7-1.3) Estimated GFR (Cockcroft-Gault) 45.3 39.9 Glucose Level 95 mg/dL (70-99) 76 mg/dL (70-99) Lactic Acid Level 12.1 mmol/L (0.4-2.0) 12.7 mmol/L (0.4-2.0) Calcium Level 7.2 mg/dL (8.5-10.1) 7.3 mg/dL (8.5-10.1) Phosphorus Level 4.1 mg/dL (2.6-4.7) 3.6 mg/dL (2.6-4.7) Magnesium Level 2.4 mg/dL (1.8-2.4) 2.4 mg/dL (1.8-2.4) Glucose (Fingerstick) 78 mg/dL (70-99) 75 mg/dL (70-99) Test 01/17/19 05:30 01/17/19 07:55 01/17/19 08:05 01/17/19 11:42 White Blood Count 28.7 x10^3/uL (4.0-11.0) Red Blood Count 2.22 x10^6/uL (4.30-5.70) Hemoglobin 7.4 g/dL (13.0-17.5) Hematocrit 23.3 % (39.0-53.0) Mean Corpuscular Volume 105 fL (79-100) Mean Corpuscular Hemoglobin 33 pg (25-35) Mean Corpuscular Hemoglobin Concent 32 g/dL (31-37) Red Cell Distribution Width 19.6 % (11.5-14.5) Platelet Count 78 x10^3/uL (140-400) Neutrophils (%) (Auto) 86 % (31-73) Lymphocytes (%) (Auto) 11 % (24-48) Monocytes (%) (Auto) 2 % (0-9) Eosinophils (%) (Auto) 0 % (0-3) Basophils (%) (Auto) 1 % (0-3) Neutrophils # (Auto) 24.7 x10^3/uL (1.8-7.7) Lymphocytes # (Auto) 3.1 x10^3/uL (1.0-4.8) Monocytes # (Auto) 0.7 x10^3/uL (0.0-1.1) Eosinophils # (Auto) 0.1 x10^3/uL (0.0-0.7) Basophils # (Auto) 0.1 x10^3/uL (0.0-0.2) Lactic Acid Level 10.8 mmol/L (0.4-2.0) Sodium Level 137 mmol/L (136-145) 137 mmol/L (136-145) Potassium Level 4.6 mmol/L (3.5-5.1) 4.6 mmol/L (3.5-5.1) Chloride Level 100 mmol/L (98-107) 101 mmol/L (98-107) Carbon Dioxide Level 20 mmol/L (21-32) 21 mmol/L (21-32) Anion Gap 17 (6-14) 15 (6-14) Blood Urea Nitrogen 31 mg/dL (8-26) 31 mg/dL (8-26) Creatinine 1.8 mg/dL (0.7-1.3) 1.8 mg/dL (0.7-1.3) Estimated GFR (Cockcroft-Gault) 42.4 42.4 Glucose Level 110 mg/dL (70-99) 117 mg/dL (70-99) Calcium Level 7.6 mg/dL (8.5-10.1) 7.4 mg/dL (8.5-10.1) Phosphorus Level 3.3 mg/dL (2.6-4.7) 2.9 mg/dL (2.6-4.7) Magnesium Level 2.3 mg/dL (1.8-2.4) 2.3 mg/dL (1.8-2.4) O2 Saturation 88 % (92-99) Arterial Blood pH 7.26 (7.35-7.45) Arterial Blood pCO2 at Patient Temp 37 mmHg (35-46) Arterial Blood pO2 at Patient Temp 63 mmHg (85-108) Arterial Blood HCO3 16 mmol/L (21-28) Arterial Blood Base Excess -10 mmol/L (-3-3) FiO2 100 Test 01/17/19 16:00 01/17/19 23:30 01/18/19 00:00 01/18/19 05:40 Sodium Level 137 mmol/L (136-145) 140 mmol/L (136-145) Potassium Level 4.3 mmol/L (3.5-5.1) 4.7 mmol/L (3.5-5.1) Chloride Level 101 mmol/L (98-107) 103 mmol/L (98-107) Carbon Dioxide Level 20 mmol/L (21-32) 19 mmol/L (21-32) Anion Gap 16 (6-14) 18 (6-14) Blood Urea Nitrogen 31 mg/dL (8-26) 33 mg/dL (8-26) Creatinine 1.7 mg/dL (0.7-1.3) 1.8 mg/dL (0.7-1.3) Estimated GFR (Cockcroft-Gault) 45.3 42.4 Glucose Level 117 mg/dL (70-99) 102 mg/dL (70-99) Lactic Acid Level 10.7 mmol/L (0.4-2.0) 12.3 mmol/L (0.4-2.0) Calcium Level 7.2 mg/dL (8.5-10.1) 7.2 mg/dL (8.5-10.1) Phosphorus Level 2.3 mg/dL (2.6-4.7) 3.6 mg/dL (2.6-4.7) Magnesium Level 2.4 mg/dL (1.8-2.4) 2.3 mg/dL (1.8-2.4) White Blood Count 15.7 x10^3/uL (4.0-11.0) Red Blood Count 1.88 x10^6/uL (4.30-5.70) Hemoglobin 6.3 g/dL (13.0-17.5) Hematocrit 19.6 % (39.0-53.0) Mean Corpuscular Volume 105 fL (79-100) Mean Corpuscular Hemoglobin 34 pg (25-35) Mean Corpuscular Hemoglobin Concent 32 g/dL (31-37) Red Cell Distribution Width 19.4 % (11.5-14.5) Platelet Count 44 x10^3/uL (140-400) Neutrophils (%) (Auto) 85 % (31-73) Lymphocytes (%) (Auto) 12 % (24-48) Monocytes (%) (Auto) 3 % (0-9) Eosinophils (%) (Auto) 1 % (0-3) Basophils (%) (Auto) 0 % (0-3) Neutrophils # (Auto) 13.3 x10^3/uL (1.8-7.7) Lymphocytes # (Auto) 1.9 x10^3/uL (1.0-4.8) Monocytes # (Auto) 0.4 x10^3/uL (0.0-1.1) Eosinophils # (Auto) 0.1 x10^3/uL (0.0-0.7) Basophils # (Auto) 0.1 x10^3/uL (0.0-0.2) Test 01/18/19 07:40 Sodium Level 140 mmol/L (136-145) Potassium Level 4.1 mmol/L (3.5-5.1) Chloride Level 102 mmol/L (98-107) Carbon Dioxide Level 21 mmol/L (21-32) Anion Gap 17 (6-14) Blood Urea Nitrogen 30 mg/dL (8-26) Creatinine 1.5 mg/dL (0.7-1.3) Estimated GFR (Cockcroft-Gault) 52.4 Glucose Level 150 mg/dL (70-99) Calcium Level 7.2 mg/dL (8.5-10.1) Phosphorus Level 2.2 mg/dL (2.6-4.7) Magnesium Level 2.3 mg/dL (1.8-2.4) Albumin 3.0 g/dL (3.4-5.0) Laboratory Tests Test 01/17/19 11:42 01/17/19 16:00 01/17/19 23:30 01/18/19 00:00 Sodium Level 137 mmol/L (136-145) 137 mmol/L (136-145) 140 mmol/L (136-145) Potassium Level 4.6 mmol/L (3.5-5.1) 4.3 mmol/L (3.5-5.1) 4.7 mmol/L (3.5-5.1) Chloride Level 101 mmol/L (98-107) 101 mmol/L (98-107) 103 mmol/L (98-107) Carbon Dioxide Level 21 mmol/L (21-32) 20 mmol/L (21-32) 19 mmol/L (21-32) Anion Gap 15 (6-14) 16 (6-14) 18 (6-14) Blood Urea Nitrogen 31 mg/dL (8-26) 31 mg/dL (8-26) 33 mg/dL (8-26) Creatinine 1.8 mg/dL (0.7-1.3) 1.7 mg/dL (0.7-1.3) 1.8 mg/dL (0.7-1.3) Estimated GFR (Cockcroft-Gault) 42.4 45.3 42.4 Glucose Level 117 mg/dL (70-99) 117 mg/dL (70-99) 102 mg/dL (70-99) Calcium Level 7.4 mg/dL (8.5-10.1) 7.2 mg/dL (8.5-10.1) 7.2 mg/dL (8.5-10.1) Phosphorus Level 2.9 mg/dL (2.6-4.7) 2.3 mg/dL (2.6-4.7) 3.6 mg/dL (2.6-4.7) Magnesium Level 2.3 mg/dL (1.8-2.4) 2.4 mg/dL (1.8-2.4) 2.3 mg/dL (1.8-2.4) Lactic Acid Level 10.7 mmol/L (0.4-2.0) 12.3 mmol/L (0.4-2.0) Test 01/18/19 05:40 01/18/19 07:40 White Blood Count 15.7 x10^3/uL (4.0-11.0) Red Blood Count 1.88 x10^6/uL (4.30-5.70) Hemoglobin 6.3 g/dL (13.0-17.5) Hematocrit 19.6 % (39.0-53.0) Mean Corpuscular Volume 105 fL (79-100) Mean Corpuscular Hemoglobin 34 pg (25-35) Mean Corpuscular Hemoglobin Concent 32 g/dL (31-37) Red Cell Distribution Width 19.4 % (11.5-14.5) Platelet Count 44 x10^3/uL (140-400) Neutrophils (%) (Auto) 85 % (31-73) Lymphocytes (%) (Auto) 12 % (24-48) Monocytes (%) (Auto) 3 % (0-9) Eosinophils (%) (Auto) 1 % (0-3) Basophils (%) (Auto) 0 % (0-3) Neutrophils # (Auto) 13.3 x10^3/uL (1.8-7.7) Lymphocytes # (Auto) 1.9 x10^3/uL (1.0-4.8) Monocytes # (Auto) 0.4 x10^3/uL (0.0-1.1) Eosinophils # (Auto) 0.1 x10^3/uL (0.0-0.7) Basophils # (Auto) 0.1 x10^3/uL (0.0-0.2) Sodium Level 140 mmol/L (136-145) Potassium Level 4.1 mmol/L (3.5-5.1) Chloride Level 102 mmol/L (98-107) Carbon Dioxide Level 21 mmol/L (21-32) Anion Gap 17 (6-14) Blood Urea Nitrogen 30 mg/dL (8-26) Creatinine 1.5 mg/dL (0.7-1.3) Estimated GFR (Cockcroft-Gault) 52.4 Glucose Level 150 mg/dL (70-99) Calcium Level 7.2 mg/dL (8.5-10.1) Phosphorus Level 2.2 mg/dL (2.6-4.7) Magnesium Level 2.3 mg/dL (1.8-2.4) Albumin 3.0 g/dL (3.4-5.0) Assessment Assessment Problems Medical Problems: (1) Acute hepatic encephalopathy Status: Acute (2) Acute upper GI bleed Status: Acute (3) Ascites Status: Acute (4) Hypokalemia Status: Acute (5) Multiple organ system failure Status: Acute (6) Severe sepsis with acute organ dysfunction Status: Acute Plan Plan of Care Problems Medical Problems: (1) Acute hepatic encephalopathy Status: Acute (2) Acute upper GI bleed Status: Acute (3) Ascites Status: Acute (4) Hypokalemia Status: Acute (5) Multiple organ system failure Status: Acute (6) Severe sepsis with acute organ dysfunction Status: Acute CHRISTINA ALEXSI MD Jan 18, 2019 08:47
--- NOTE | 2019-01-18 08:51 | PDOC ---
Infectious Disease Note Subjective Subjective Sedated Remains orally intubated, Satting 87% on FiO2 100% PEEP 14 Hypotensive, on low dose levophed No fevers TPN and daughter at bedside, no concerns voiced at this time ROS ROS unobtainable Vital Sign Vital Signs Vital Signs Date Time Temp Pulse Resp B/P (MAP) Pulse Ox O2 Delivery O2 Flow Rate FiO2 01/18/19 08:00 Mechanical Ventilator 01/18/19 08:00 95.0 96 24 106/52 (70) 85 95.0 01/17/19 11:24 2.0 Physical Exam PHYSICAL EXAM GENERAL: Orally intubated and sedated, CRRT HEENT: Pupils equal, ETT and OGT LUNGS: Right-sided rhonchi HEART: S1 S2 regular ABDOMEN: Obese, soft, hypoactive BS : - Pollard EXTREMITIES: Generalized edema. LLE ecchymosis. SKIN: Warm to touch. No rash NEUROLOGIC: Sedated RIJ and Temp RIJ/HDC (01/13) clean PIV Labs Lab Laboratory Tests Test 01/17/19 11:42 01/17/19 16:00 01/17/19 23:30 01/18/19 00:00 Sodium Level 137 mmol/L (136-145) 137 mmol/L (136-145) 140 mmol/L (136-145) Potassium Level 4.6 mmol/L (3.5-5.1) 4.3 mmol/L (3.5-5.1) 4.7 mmol/L (3.5-5.1) Chloride Level 101 mmol/L (98-107) 101 mmol/L (98-107) 103 mmol/L (98-107) Carbon Dioxide Level 21 mmol/L (21-32) 20 mmol/L (21-32) 19 mmol/L (21-32) Anion Gap 15 (6-14) 16 (6-14) 18 (6-14) Blood Urea Nitrogen 31 mg/dL (8-26) 31 mg/dL (8-26) 33 mg/dL (8-26) Creatinine 1.8 mg/dL (0.7-1.3) 1.7 mg/dL (0.7-1.3) 1.8 mg/dL (0.7-1.3) Estimated GFR (Cockcroft-Gault) 42.4 45.3 42.4 Glucose Level 117 mg/dL (70-99) 117 mg/dL (70-99) 102 mg/dL (70-99) Calcium Level 7.4 mg/dL (8.5-10.1) 7.2 mg/dL (8.5-10.1) 7.2 mg/dL (8.5-10.1) Phosphorus Level 2.9 mg/dL (2.6-4.7) 2.3 mg/dL (2.6-4.7) 3.6 mg/dL (2.6-4.7) Magnesium Level 2.3 mg/dL (1.8-2.4) 2.4 mg/dL (1.8-2.4) 2.3 mg/dL (1.8-2.4) Lactic Acid Level 10.7 mmol/L (0.4-2.0) 12.3 mmol/L (0.4-2.0) Test 01/18/19 05:40 01/18/19 07:40 White Blood Count 15.7 x10^3/uL (4.0-11.0) Red Blood Count 1.88 x10^6/uL (4.30-5.70) Hemoglobin 6.3 g/dL (13.0-17.5) Hematocrit 19.6 % (39.0-53.0) Mean Corpuscular Volume 105 fL (79-100) Mean Corpuscular Hemoglobin 34 pg (25-35) Mean Corpuscular Hemoglobin Concent 32 g/dL (31-37) Red Cell Distribution Width 19.4 % (11.5-14.5) Platelet Count 44 x10^3/uL (140-400) Neutrophils (%) (Auto) 85 % (31-73) Lymphocytes (%) (Auto) 12 % (24-48) Monocytes (%) (Auto) 3 % (0-9) Eosinophils (%) (Auto) 1 % (0-3) Basophils (%) (Auto) 0 % (0-3) Neutrophils # (Auto) 13.3 x10^3/uL (1.8-7.7) Lymphocytes # (Auto) 1.9 x10^3/uL (1.0-4.8) Monocytes # (Auto) 0.4 x10^3/uL (0.0-1.1) Eosinophils # (Auto) 0.1 x10^3/uL (0.0-0.7) Basophils # (Auto) 0.1 x10^3/uL (0.0-0.2) Sodium Level 140 mmol/L (136-145) Potassium Level 4.1 mmol/L (3.5-5.1) Chloride Level 102 mmol/L (98-107) Carbon Dioxide Level 21 mmol/L (21-32) Anion Gap 17 (6-14) Blood Urea Nitrogen 30 mg/dL (8-26) Creatinine 1.5 mg/dL (0.7-1.3) Estimated GFR (Cockcroft-Gault) 52.4 Glucose Level 150 mg/dL (70-99) Calcium Level 7.2 mg/dL (8.5-10.1) Phosphorus Level 2.2 mg/dL (2.6-4.7) Magnesium Level 2.3 mg/dL (1.8-2.4) Albumin 3.0 g/dL (3.4-5.0) CXR, 01/17 1. Stable life support devices. 2. Progression of diffuse right greater than left heterogeneous opacities. CXR 01/18 pending Micro 12/2718 Blood Culture - Preliminary, Resulted NO GROWTH AFTER 3 DAY 01/15. SPUTUM CULTURE-LC PENDING Objective Assessment Hypotension on pressors Fever - curve improving ? ID vs PRBCs vs reactive vs Withdrawl - improved Leukocytosis - ? reactive, improved Thrombocytopenia Lactic acidosis Resp failure s/p intubation. + mycoplasma (01/14) DOMONIQUE now on CRRT GI Bleed - s/p EGD 01/08 - Reflux esophagitis. ? recent M-W tear. Alcoholic gastritis. Anemia Liver cirrhosis with small ascites. Alcoholic hepatitis - Hep C Ab positive, PCR negative. GI following ? pancreatitis. Lipase improved Rhabdo CK 965 ETOH abuse Left leg ecchymosis Plan Plan of Care Dapto, Zosyn. and Levaquin, renally adjusted. f/u cultures Supportive care D/w nursing Critically ill Prognosis poor Attending Co-Sign The patient was seen and interviewed as well as examined at the bedside. The chart was reviewed. The case was discussed. Agree with the plan of care. low plt, change zosyn to meropenem ANNEMARIE MARTINEZ APRN Jan 18, 2019 08:51 LETTY ALEXIS MD Jan 18, 2019 12:14
[2019-01-18] MEDS: IV NORMAL SALINE 1000ML BAG 1,000 ML IV SCH (08:54)
[2019-01-18] MEDS: LACTULOSE 20 GM/30 ML SOLUTION. PO SCH ×3 (09:00→20:01)
--- NOTE | 2019-01-18 09:09 | EKG ---
[facility] [address] [place] [address] Test Date: 2019-01-18 Test Time: 09:00:19 Pat Name: ULI CARRIZALES Department: Room: 111 1 Gender: M [employer] Special Machine: : [id number] Requested By: MERLE MEYER Order Number: [id number] Reading MD: Measurements Intervals [place] Rate: 110 P: KS: QRS: 41 QRSD: 86 T: -101 QT: 370 QTc: 507 Interpretive Statements IRREGULAR RHYTHM, NO P-WAVE FOUND VENTRICULAR PREMATURE COMPLEX(ES) QRS(T) CONTOUR ABNORMALITY CONSIDER ANTEROSEPTAL MYOCARDIAL DAMAGE T ABNORMALITY IN ANTEROLATERAL LEADS INFEROLATERAL LEADS ABNORMAL ECG RI6.01 Compared to ECG 01/07/2019 19:10:25 Sinus tachycardia no longer present T-wave abnormality still present
[2019-01-18] MEDS: DAPTOmycin (GENERIC) IVPB 500 MG in IV NORMAL SALINE 50ML 50 ML IV SCH (09:11)
--- NOTE | 2019-01-18 09:13 | PDOC ---
PROGRESS NOTES Chief Complaint Chief Complaint Acute respiratory falure, IPPV - 01.08, fluid overload? vs Atypical infection VS ARDS from aspiration HEMATEMESIS in A HEAVY DRINKER -Atrophic gastritis, ?MW tear BUT NO ACTIVE GIB - s.po STAT EGD 01/08 SEVERE PCM - albumin 1,7 -s/p albumin 01/09 - off pressors by 01/10 MInimal ascites - by US and CT HYPOTENSION, s/p, pressors standby, albumin, blood products if needed Coagulopathy - s/p vit K, HEPATIC enceph - ammonia midly high 60-90s - lactulose,SD HIGH residuals TRAMSAMINITIS with ELEVATED TB- per GI (TB 9), AST 300s-500s HEp C antibody positive LEft leg bruise, in this coagulopathic anemic pt sec to fall 2 weeks ago - monitor ELEVATED AGAP acidosis History of Present Illness History of Present Illness Mr Ballard is a 38 yo M w/ PMHx heavy ETOH abuse admitted with massive hematemesis on 01/07/19, was emergently intubated and admitted to ICU. S/p EGD, no active GIB, poss MW, atrophic gastritis, off SANDOSTATIN, CONT PPI gtt, SCDS. AMMONIA 60-90s - started lactulose, qdaily per GI, HEp c AB positive - negative PCR HIGH GASTRIC RESIDUALS 01/10/19, had to stop TF Intubated, sedated - needed to vecuronium per RN 01/12: PEEP 10, Fi O2 100% - was not ready to extubate weekend. CXR shows more edema, Echo shows no valvular or pressure abnormalities, off pressor since 01/09, UO ok but Cr up to 1.8 today. 01/13: Febrile 101.2F yesterday afternoon and 100.7F this morning. TF off 2/2 high residuals. KUB shows no obstruction but possible ileus. No BM. Bilirubin increasing to 11.3, Cr increasing to 2.2. Albumin decreased. More edematous today. BP lower. HD cath placed and HD session per nephro. 01/14: Cr worse, UOP minimal, though 1.9L logged. Bowel sounds decreased. Still on levophed. Still febrile 101.7F this morning. PEEP 10, FiO2 100%. D/w and mother bedside 01/15: Afebrile past 24 hours, but overnight had significant O2 desaturations with repositioning. Still requiring levophed. PEEP 12, FiO2 100%. ABG 7.14/55/62. Renal and hepatic function not improved. WBC up to 44 today 01/16: WBC 28.5, ABG 7.22/48/52. CXR show possible consolidation in RLL and interstitial pulmonary markings. abdomen a bit more swollen. Abdominal US consistent with ileus, no renal obstruction, no real ascites to speak of. 01/17: ABG 7.26/37/63 on PEEP of 14 and FiO2 of 100% with CXR showing worsening right sided infiltrate and still ARDS appearance. Hb dropped to 6.3, platelets too. He has been tolerating CRRT well, still on levophed. WBC stable elevated. Have d/w pulm, ID, nephrology and GI and family his poor prognosis. PLAN CRRT Bowel rest for ileus Transfuse Check DIC Cards, pulmo, GI, nephrology on case NO bleeding so far since admission cc ill prog guarded, mentation might be a problem in extubating in this alcoholic CC time 47 minutes Vitals Vitals Vital Signs Date Time Temp Pulse Resp B/P (MAP) Pulse Ox O2 Delivery O2 Flow Rate FiO2 01/18/19 08:00 Mechanical Ventilator 01/18/19 08:00 95.0 96 24 106/52 (70) 85 95.0 01/17/19 11:24 2.0 Physical Exam Physical Exam GENERAL: Orally intubated and sedated, CRRT HEENT: Pupils equal, ETT and OGT LUNGS: Right-sided rhonchi HEART: S1 S2 regular ABDOMEN: Obese, soft, hypoactive BS : - Pollard EXTREMITIES: Generalized edema. LLE ecchymosis. SKIN: Warm to touch. No rash NEUROLOGIC: Sedated RIJ and Temp RIJ/HDC (01/13) clean PIV General: Other (tachypneic 30s) Heart: Regular rate, Normal S1, Normal S2 Lungs: Other (decrease bs) Abdomen: Soft, No tenderness, Other (pot belly possible fluid wave) Extremities: No clubbing, No cyanosis, Normal pulses, Other (left leg is bruised from a fall 2-3 weeks ago) Labs LABS Laboratory Tests Test 01/17/19 11:42 01/17/19 16:00 01/17/19 23:30 01/18/19 00:00 Sodium Level 137 mmol/L (136-145) 137 mmol/L (136-145) 140 mmol/L (136-145) Potassium Level 4.6 mmol/L (3.5-5.1) 4.3 mmol/L (3.5-5.1) 4.7 mmol/L (3.5-5.1) Chloride Level 101 mmol/L (98-107) 101 mmol/L (98-107) 103 mmol/L (98-107) Carbon Dioxide Level 21 mmol/L (21-32) 20 mmol/L (21-32) 19 mmol/L (21-32) Anion Gap 15 (6-14) 16 (6-14) 18 (6-14) Blood Urea Nitrogen 31 mg/dL (8-26) 31 mg/dL (8-26) 33 mg/dL (8-26) Creatinine 1.8 mg/dL (0.7-1.3) 1.7 mg/dL (0.7-1.3) 1.8 mg/dL (0.7-1.3) Estimated GFR (Cockcroft-Gault) 42.4 45.3 42.4 Glucose Level 117 mg/dL (70-99) 117 mg/dL (70-99) 102 mg/dL (70-99) Calcium Level 7.4 mg/dL (8.5-10.1) 7.2 mg/dL (8.5-10.1) 7.2 mg/dL (8.5-10.1) Phosphorus Level 2.9 mg/dL (2.6-4.7) 2.3 mg/dL (2.6-4.7) 3.6 mg/dL (2.6-4.7) Magnesium Level 2.3 mg/dL (1.8-2.4) 2.4 mg/dL (1.8-2.4) 2.3 mg/dL (1.8-2.4) Lactic Acid Level 10.7 mmol/L (0.4-2.0) 12.3 mmol/L (0.4-2.0) Test 01/18/19 05:40 01/18/19 07:40 White Blood Count 15.7 x10^3/uL (4.0-11.0) Red Blood Count 1.88 x10^6/uL (4.30-5.70) Hemoglobin 6.3 g/dL (13.0-17.5) Hematocrit 19.6 % (39.0-53.0) Mean Corpuscular Volume 105 fL (79-100) Mean Corpuscular Hemoglobin 34 pg (25-35) Mean Corpuscular Hemoglobin Concent 32 g/dL (31-37) Red Cell Distribution Width 19.4 % (11.5-14.5) Platelet Count 44 x10^3/uL (140-400) Neutrophils (%) (Auto) 85 % (31-73) Lymphocytes (%) (Auto) 12 % (24-48) Monocytes (%) (Auto) 3 % (0-9) Eosinophils (%) (Auto) 1 % (0-3) Basophils (%) (Auto) 0 % (0-3) Neutrophils # (Auto) 13.3 x10^3/uL (1.8-7.7) Lymphocytes # (Auto) 1.9 x10^3/uL (1.0-4.8) Monocytes # (Auto) 0.4 x10^3/uL (0.0-1.1) Eosinophils # (Auto) 0.1 x10^3/uL (0.0-0.7) Basophils # (Auto) 0.1 x10^3/uL (0.0-0.2) Sodium Level 140 mmol/L (136-145) Potassium Level 4.1 mmol/L (3.5-5.1) Chloride Level 102 mmol/L (98-107) Carbon Dioxide Level 21 mmol/L (21-32) Anion Gap 17 (6-14) Blood Urea Nitrogen 30 mg/dL (8-26) Creatinine 1.5 mg/dL (0.7-1.3) Estimated GFR (Cockcroft-Gault) 52.4 Glucose Level 150 mg/dL (70-99) Calcium Level 7.2 mg/dL (8.5-10.1) Phosphorus Level 2.2 mg/dL (2.6-4.7) Magnesium Level 2.3 mg/dL (1.8-2.4) Albumin 3.0 g/dL (3.4-5.0) Assessment and Plan Assessmemt and Plan Problems Medical Problems: (1) Acute hepatic encephalopathy Status: Acute (2) Acute upper GI bleed Status: Acute (3) Ascites Status: Acute (4) Hypokalemia Status: Acute (5) Multiple organ system failure Status: Acute (6) Severe sepsis with acute organ dysfunction Status: Acute Comment Review of Relevant I have reviewed the following items karen (where applicable) has been applied. Labs Laboratory Tests Test 01/16/19 09:25 01/16/19 09:40 01/16/19 13:33 01/16/19 14:15 Lactic Acid Level 9.7 mmol/L (0.4-2.0) O2 Saturation 77 % (92-99) Arterial Blood pH 7.22 (7.35-7.45) Arterial Blood pCO2 at Patient Temp 48 mmHg (35-46) Arterial Blood pO2 at Patient Temp 52 mmHg (85-108) Arterial Blood HCO3 19 mmol/L (21-28) Arterial Blood Base Excess -9 mmol/L (-3-3) FiO2 100 Glucose (Fingerstick) 89 mg/dL (70-99) 117 mg/dL (70-99) Test 01/16/19 15:30 01/16/19 17:17 01/16/19 22:00 01/16/19 22:10 Sodium Level 137 mmol/L (136-145) 137 mmol/L (136-145) Potassium Level 4.4 mmol/L (3.5-5.1) 4.6 mmol/L (3.5-5.1) Chloride Level 100 mmol/L (98-107) 100 mmol/L (98-107) Carbon Dioxide Level 20 mmol/L (21-32) 17 mmol/L (21-32) Anion Gap 17 (6-14) 20 (6-14) Blood Urea Nitrogen 29 mg/dL (8-26) 33 mg/dL (8-26) Creatinine 1.7 mg/dL (0.7-1.3) 1.9 mg/dL (0.7-1.3) Estimated GFR (Cockcroft-Gault) 45.3 39.9 Glucose Level 95 mg/dL (70-99) 76 mg/dL (70-99) Lactic Acid Level 12.1 mmol/L (0.4-2.0) 12.7 mmol/L (0.4-2.0) Calcium Level 7.2 mg/dL (8.5-10.1) 7.3 mg/dL (8.5-10.1) Phosphorus Level 4.1 mg/dL (2.6-4.7) 3.6 mg/dL (2.6-4.7) Magnesium Level 2.4 mg/dL (1.8-2.4) 2.4 mg/dL (1.8-2.4) Glucose (Fingerstick) 78 mg/dL (70-99) 75 mg/dL (70-99) Test 01/17/19 05:30 01/17/19 07:55 01/17/19 08:05 01/17/19 11:42 White Blood Count 28.7 x10^3/uL (4.0-11.0) Red Blood Count 2.22 x10^6/uL (4.30-5.70) Hemoglobin 7.4 g/dL (13.0-17.5) Hematocrit 23.3 % (39.0-53.0) Mean Corpuscular Volume 105 fL (79-100) Mean Corpuscular Hemoglobin 33 pg (25-35) Mean Corpuscular Hemoglobin Concent 32 g/dL (31-37) Red Cell Distribution Width 19.6 % (11.5-14.5) Platelet Count 78 x10^3/uL (140-400) Neutrophils (%) (Auto) 86 % (31-73) Lymphocytes (%) (Auto) 11 % (24-48) Monocytes (%) (Auto) 2 % (0-9) Eosinophils (%) (Auto) 0 % (0-3) Basophils (%) (Auto) 1 % (0-3) Neutrophils # (Auto) 24.7 x10^3/uL (1.8-7.7) Lymphocytes # (Auto) 3.1 x10^3/uL (1.0-4.8) Monocytes # (Auto) 0.7 x10^3/uL (0.0-1.1) Eosinophils # (Auto) 0.1 x10^3/uL (0.0-0.7) Basophils # (Auto) 0.1 x10^3/uL (0.0-0.2) Lactic Acid Level 10.8 mmol/L (0.4-2.0) Sodium Level 137 mmol/L (136-145) 137 mmol/L (136-145) Potassium Level 4.6 mmol/L (3.5-5.1) 4.6 mmol/L (3.5-5.1) Chloride Level 100 mmol/L (98-107) 101 mmol/L (98-107) Carbon Dioxide Level 20 mmol/L (21-32) 21 mmol/L (21-32) Anion Gap 17 (6-14) 15 (6-14) Blood Urea Nitrogen 31 mg/dL (8-26) 31 mg/dL (8-26) Creatinine 1.8 mg/dL (0.7-1.3) 1.8 mg/dL (0.7-1.3) Estimated GFR (Cockcroft-Gault) 42.4 42.4 Glucose Level 110 mg/dL (70-99) 117 mg/dL (70-99) Calcium Level 7.6 mg/dL (8.5-10.1) 7.4 mg/dL (8.5-10.1) Phosphorus Level 3.3 mg/dL (2.6-4.7) 2.9 mg/dL (2.6-4.7) Magnesium Level 2.3 mg/dL (1.8-2.4) 2.3 mg/dL (1.8-2.4) O2 Saturation 88 % (92-99) Arterial Blood pH 7.26 (7.35-7.45) Arterial Blood pCO2 at Patient Temp 37 mmHg (35-46) Arterial Blood pO2 at Patient Temp 63 mmHg (85-108) Arterial Blood HCO3 16 mmol/L (21-28) Arterial Blood Base Excess -10 mmol/L (-3-3) FiO2 100 Test 01/17/19 16:00 01/17/19 23:30 01/18/19 00:00 01/18/19 05:40 Sodium Level 137 mmol/L (136-145) 140 mmol/L (136-145) Potassium Level 4.3 mmol/L (3.5-5.1) 4.7 mmol/L (3.5-5.1) Chloride Level 101 mmol/L (98-107) 103 mmol/L (98-107) Carbon Dioxide Level 20 mmol/L (21-32) 19 mmol/L (21-32) Anion Gap 16 (6-14) 18 (6-14) Blood Urea Nitrogen 31 mg/dL (8-26) 33 mg/dL (8-26) Creatinine 1.7 mg/dL (0.7-1.3) 1.8 mg/dL (0.7-1.3) Estimated GFR (Cockcroft-Gault) 45.3 42.4 Glucose Level 117 mg/dL (70-99) 102 mg/dL (70-99) Lactic Acid Level 10.7 mmol/L (0.4-2.0) 12.3 mmol/L (0.4-2.0) Calcium Level 7.2 mg/dL (8.5-10.1) 7.2 mg/dL (8.5-10.1) Phosphorus Level 2.3 mg/dL (2.6-4.7) 3.6 mg/dL (2.6-4.7) Magnesium Level 2.4 mg/dL (1.8-2.4) 2.3 mg/dL (1.8-2.4) White Blood Count 15.7 x10^3/uL (4.0-11.0) Red Blood Count 1.88 x10^6/uL (4.30-5.70) Hemoglobin 6.3 g/dL (13.0-17.5) Hematocrit 19.6 % (39.0-53.0) Mean Corpuscular Volume 105 fL (79-100) Mean Corpuscular Hemoglobin 34 pg (25-35) Mean Corpuscular Hemoglobin Concent 32 g/dL (31-37) Red Cell Distribution Width 19.4 % (11.5-14.5) Platelet Count 44 x10^3/uL (140-400) Neutrophils (%) (Auto) 85 % (31-73) Lymphocytes (%) (Auto) 12 % (24-48) Monocytes (%) (Auto) 3 % (0-9) Eosinophils (%) (Auto) 1 % (0-3) Basophils (%) (Auto) 0 % (0-3) Neutrophils # (Auto) 13.3 x10^3/uL (1.8-7.7) Lymphocytes # (Auto) 1.9 x10^3/uL (1.0-4.8) Monocytes # (Auto) 0.4 x10^3/uL (0.0-1.1) Eosinophils # (Auto) 0.1 x10^3/uL (0.0-0.7) Basophils # (Auto) 0.1 x10^3/uL (0.0-0.2) Test 01/18/19 07:40 Sodium Level 140 mmol/L (136-145) Potassium Level 4.1 mmol/L (3.5-5.1) Chloride Level 102 mmol/L (98-107) Carbon Dioxide Level 21 mmol/L (21-32) Anion Gap 17 (6-14) Blood Urea Nitrogen 30 mg/dL (8-26) Creatinine 1.5 mg/dL (0.7-1.3) Estimated GFR (Cockcroft-Gault) 52.4 Glucose Level 150 mg/dL (70-99) Calcium Level 7.2 mg/dL (8.5-10.1) Phosphorus Level 2.2 mg/dL (2.6-4.7) Magnesium Level 2.3 mg/dL (1.8-2.4) Albumin 3.0 g/dL (3.4-5.0) Laboratory Tests Test 01/17/19 11:42 01/17/19 16:00 01/17/19 23:30 01/18/19 00:00 Sodium Level 137 mmol/L (136-145) 137 mmol/L (136-145) 140 mmol/L (136-145) Potassium Level 4.6 mmol/L (3.5-5.1) 4.3 mmol/L (3.5-5.1) 4.7 mmol/L (3.5-5.1) Chloride Level 101 mmol/L (98-107) 101 mmol/L (98-107) 103 mmol/L (98-107) Carbon Dioxide Level 21 mmol/L (21-32) 20 mmol/L (21-32) 19 mmol/L (21-32) Anion Gap 15 (6-14) 16 (6-14) 18 (6-14) Blood Urea Nitrogen 31 mg/dL (8-26) 31 mg/dL (8-26) 33 mg/dL (8-26) Creatinine 1.8 mg/dL (0.7-1.3) 1.7 mg/dL (0.7-1.3) 1.8 mg/dL (0.7-1.3) Estimated GFR (Cockcroft-Gault) 42.4 45.3 42.4 Glucose Level 117 mg/dL (70-99) 117 mg/dL (70-99) 102 mg/dL (70-99) Calcium Level 7.4 mg/dL (8.5-10.1) 7.2 mg/dL (8.5-10.1) 7.2 mg/dL (8.5-10.1) Phosphorus Level 2.9 mg/dL (2.6-4.7) 2.3 mg/dL (2.6-4.7) 3.6 mg/dL (2.6-4.7) Magnesium Level 2.3 mg/dL (1.8-2.4) 2.4 mg/dL (1.8-2.4) 2.3 mg/dL (1.8-2.4) Lactic Acid Level 10.7 mmol/L (0.4-2.0) 12.3 mmol/L (0.4-2.0) Test 01/18/19 05:40 01/18/19 07:40 White Blood Count 15.7 x10^3/uL (4.0-11.0) Red Blood Count 1.88 x10^6/uL (4.30-5.70) Hemoglobin 6.3 g/dL (13.0-17.5) Hematocrit 19.6 % (39.0-53.0) Mean Corpuscular Volume 105 fL (79-100) Mean Corpuscular Hemoglobin 34 pg (25-35) Mean Corpuscular Hemoglobin Concent 32 g/dL (31-37) Red Cell Distribution Width 19.4 % (11.5-14.5) Platelet Count 44 x10^3/uL (140-400) Neutrophils (%) (Auto) 85 % (31-73) Lymphocytes (%) (Auto) 12 % (24-48) Monocytes (%) (Auto) 3 % (0-9) Eosinophils (%) (Auto) 1 % (0-3) Basophils (%) (Auto) 0 % (0-3) Neutrophils # (Auto) 13.3 x10^3/uL (1.8-7.7) Lymphocytes # (Auto) 1.9 x10^3/uL (1.0-4.8) Monocytes # (Auto) 0.4 x10^3/uL (0.0-1.1) Eosinophils # (Auto) 0.1 x10^3/uL (0.0-0.7) Basophils # (Auto) 0.1 x10^3/uL (0.0-0.2) Sodium Level 140 mmol/L (136-145) Potassium Level 4.1 mmol/L (3.5-5.1) Chloride Level 102 mmol/L (98-107) Carbon Dioxide Level 21 mmol/L (21-32) Anion Gap 17 (6-14) Blood Urea Nitrogen 30 mg/dL (8-26) Creatinine 1.5 mg/dL (0.7-1.3) Estimated GFR (Cockcroft-Gault) 52.4 Glucose Level 150 mg/dL (70-99) Calcium Level 7.2 mg/dL (8.5-10.1) Phosphorus Level 2.2 mg/dL (2.6-4.7) Magnesium Level 2.3 mg/dL (1.8-2.4) Albumin 3.0 g/dL (3.4-5.0) Microbiology 01/15/19 - Final, Resulted 01/15/19 - Final, Resulted 01/15/19 - Final, Resulted 01/15/19 - Preliminary, Resulted 01/15/19 - Preliminary, Resulted 01/15/19 - Preliminary, Resulted 01/15/19 Gram Stain Evaluation - Final, Resulted 01/15/19 Sputum Culture, Resulted Pending 01/14/19 Blood Culture - Preliminary, Resulted NO GROWTH AFTER 3 DAYS 01/08/19 Urine Culture - Final, Complete 01/08/19 Urine Culture Result 1 (ELMA) - Final, Complete Medications Current Medications Sodium Chloride 1,000 ml @ 1,000 mls/hr 1X ONCE IV Last administered on 01/07/19at 19:27; Start 01/07/19 at 19:30; Stop 01/07/19 at 20:29; Status DC Ondansetron HCl (Zofran) 4 mg 1X ONCE IV Last administered on 01/07/19at 19:28; Start 01/07/19 at 19:30; Stop 01/07/19 at 19:31; Status DC Pantoprazole Sodium (PROTONIX VIAL for IV PUSH) 80 mg 1X ONCE IVP Last administered on 01/07/19at 19:50; Start 01/07/19 at 20:00; Stop 01/07/19 at 20:01; Status DC Pantoprazole Sodium 80 mg/ Sodium Chloride 100 ml @ 10 mls/hr 1X ONCE IV Last administered on 01/07/19at 20:00; Start 01/07/19 at 20:00; Stop 01/08/19 at 05:59; Status DC Sodium Chloride 1,000 ml @ 1,000 mls/hr 1X ONCE IV Last administered on 01/07/19at 22:12; Start 01/07/19 at 21:00; Stop 01/07/19 at 21:59; Status DC Sodium Chloride 1,000 ml @ 1,000 mls/hr 1X ONCE IV Last administered on 01/07/19at 20:40; Start 01/07/19 at 20:45; Stop 01/07/19 at 21:44; Status DC Potassium Chloride/Sodium Chloride 1,000 ml @ 75 mls/hr 1X ONCE IV Last administered on 01/07/19at 21:16; Start 01/07/19 at 21:30; Stop 01/08/19 at 10:49; Status DC Vancomycin HCl (Vanco Per Pharmacy) 1 each PRN DAILY PRN MC SEE COMMENTS Last administered on 01/08/19at 00:43; Start 01/07/19 at 21:00; Stop 01/08/19 at 06:39; Status DC Piperacillin Sod/ Tazobactam Sod (Zosyn Per Pharmacy) 1 each PRN DAILY PRN MC SEE COMMENTS; Start 01/07/19 at 21:00 Piperacillin Sod/ Tazobactam Sod 3.375 gm/Sodium Chloride 50 ml @ 100 mls/hr Q6HRS IV Last administered on 01/18/19at 05:54; Start 01/07/19 at 22:00 Vancomycin HCl 2 gm/Sodium Chloride 500 ml @ 250 mls/hr 1X ONCE IV Last administered on 01/07/19at 22:11; Start 01/07/19 at 22:00; Stop 01/07/19 at 23:59; Status DC Lorazepam (Ativan Inj) 1 mg 1X ONCE IV Last administered on 01/07/19at 23:22; Start 01/07/19 at 23:30; Stop 01/07/19 at 23:31; Status DC Lorazepam (Ativan Inj) 2 mg STK-MED ONCE .ROUTE ; Start 01/07/19 at 23:20; Stop 01/07/19 at 23:21; Status DC Vancomycin HCl 1.5 gm/Sodium Chloride 500 ml @ 250 mls/hr Q12H IV ; Start 01/08/19 at 10:00; Stop 01/08/19 at 06:39; Status DC Vancomycin HCl (Vancomycin Trough Level) 1 each 1X ONCE MC ; Start 01/09/19 at 09:30; Stop 01/09/19 at 09:31; Status Cancel Ondansetron HCl (Zofran) 4 mg PRN Q6HRS PRN IVP NAUSEA/VOMITING; Start 01/08/19 at 04:00; Status Cancel Pantoprazole Sodium 80 mg/ Sodium Chloride 100 ml @ 10 mls/hr Q10H IV Last administered on 01/09/19at 02:00; Start 01/08/19 at 06:00; Stop 01/09/19 at 11:00; Status DC Multivitamins 10 ml/Thiamine HCl 100 mg/Folic Acid 1 mg/Sodium Chloride 1,011.2 ml @ 100 mls/ hr DAILY IV Last administered on 01/12/19at 10:29; Start 01/08/19 at 09:00; Stop 01/12/19 at 19:07; Status DC Lorazepam (Ativan Inj) 2 mg PRN Q1HR PRN IV For CIWA 8-14 Last administered on 01/14/19at 21:01; Start 01/08/19 at 07:15 Lorazepam (Ativan Inj) 4 mg PRN Q1HR PRN IV For CIWA 15 or greater Last administered on 01/15/19at 08:40; Start 01/08/19 at 07:15 Haloperidol Lactate (Haldol Inj) 5 mg PRN Q4HRS PRN IVP Hallucinatns,Confusn,Delirium; Start 01/08/19 at 07:15 Diphenhydramine HCl (Benadryl) 25 mg PRN Q15MIN PRN IVP EPS symptoms 2'Haldol admin; Start 01/08/19 at 07:15 Clonidine HCl (Catapres) 0.1 mg PRN Q1HR PRN PO SBP > 180 or DBP > 100, MRX3; Start 01/08/19 at 07:15 Sodium Bicarbonate (Sodium Bicarb Adult 8.4% Syr) 50 meq 1X ONCE IV Last administered on 01/08/19at 08:04; Start 01/08/19 at 08:00; Stop 01/08/19 at 08:01; Status DC Propofol 100 ml @ As Directed STK-MED ONCE IV ; Start 01/08/19 at 08:19; Stop 01/08/19 at 08:19; Status DC Succinylcholine Chloride (Anectine) 200 mg STK-MED ONCE .ROUTE ; Start 01/08/19 at 08:19; Stop 01/08/19 at 08:19; Status DC Propofol 100 ml @ As Directed STK-MED ONCE IV ; Start 01/08/19 at 08:29; Stop 01/08/19 at 08:30; Status DC Fentanyl Citrate 30 ml @ 0 mls/hr CONT PRN PRN IV PER PROTOCOL Last administered on 01/17/19at 23:32; Start 01/08/19 at 09:00 Naloxone HCl (Narcan) 0.4 mg PRN Q2MIN PRN IV SEE INSTRUCTIONS; Start 01/08/19 at 09:00 Sodium Chloride 1,000 ml @ 25 mls/hr Q24H IV Last administered on 01/17/19at 13:38; Start 01/08/19 at 08:54 Fentanyl Citrate (Fentanyl 2ml Vial) 100 mcg STK-MED ONCE .ROUTE ; Start 01/08/19 at 08:55; Stop 01/08/19 at 08:55; Status DC Octreotide Acetate 500 mcg/ Sodium Chloride 101 ml @ 0 mls/hr CONT PRN IV SEE I/O RECORD Last administered on 01/08/19at 13:56; Start 01/08/19 at 09:00; Stop 01/08/19 at 16:55; Status DC Phytonadione (Vitamin K Ampule) 10 mg 1X ONCE SQ Last administered on 01/08/19at 09:56; Start 01/08/19 at 09:15; Stop 01/08/19 at 09:16; Status DC Metoclopramide HCl (Reglan Vial) 10 mg 1X ONCE IVP Last administered on 01/08/19at 14:36; Start 01/08/19 at 11:00; Stop 01/08/19 at 11:01; Status DC Midazolam HCl (Versed) 5 mg STK-MED ONCE .ROUTE ; Start 01/08/19 at 09:00; Stop 01/08/19 at 09:01; Status DC Acetaminophen (Tylenol) 500 mg PRN Q6HRS PRN PO MILD PAIN / TEMP Last administered on 01/11/19at 17:46; Start 01/08/19 at 09:15; Stop 01/13/19 at 09:11; Status DC Tramadol HCl (Ultram) 50 mg PRN Q6HRS PRN PO PAIN MODERATE; Start 01/08/19 at 09:15 Morphine Sulfate (Morphine Sulfate) 2 mg PRN Q2HR PRN IV PAIN; Start 01/08/19 at 09:15 Ondansetron HCl (Zofran) 4 mg PRN Q6HRS PRN IVP NAUSEA/VOMITING, 1ST CHOICE; Start 01/08/19 at 09:15 Fentanyl Citrate (Fentanyl 2ml Vial) 100 mcg 1X ONCE IVP Last administered on 01/08/19at 09:42; Start 01/08/19 at 09:45; Stop 01/08/19 at 09:46; Status DC Midazolam HCl (Versed) 5 mg 1X ONCE IV Last administered on 01/08/19at 09:41; Start 01/08/19 at 09:45; Stop 01/08/19 at 09:46; Status DC Succinylcholine Chloride (Anectine) 200 mg 1X ONCE IV Last administered on 01/08/19at 09:41; Start 01/08/19 at 09:45; Stop 01/08/19 at 09:46; Status DC Propofol 100 ml @ 1.524 mls/ hr CONT PRN IV SEE I/O RECORD Last administered on 01/14/19at 03:56; Start 01/08/19 at 09:45 Midazolam HCl 100 ml @ 5 mls/hr CONT PRN IV SEE I/O RECORD Last administered on 01/18/19at 01:35; Start 01/08/19 at 11:15 Vecuronium [place] (Norcuron Bolus) 6 mg PRN Q4HRS PRN IV VENT ASYNCHRONY Last administered on 01/18/19at 04:33; Start 01/08/19 at 12:00 Benzocaine (Hurricaine One) 2 spray STK-MED ONCE .ROUTE ; Start 01/07/19 at 12:00; Stop 01/08/19 at 14:20; Status DC Lidocaine HCl (Xylocaine 2% Topical 5gm Tube) 5 amanda STK-MED ONCE TP ; Start 01/07/19 at 12:00; Stop 01/08/19 at 14:20; Status DC Lactobacillus Rhamnosus (Culturelle) 1 cap BID PO ; Start 01/08/19 at 21:00; Stop 01/09/19 at 09:29; Status DC Acetaminophen (Tylenol Supp) 650 mg PRN Q6HRS PRN SD MILD PAIN / TEMP Last administered on 01/09/19at 23:44; Start 01/08/19 at 18:15 Norepinephrine Bitartrate 250 ml @ 18.938 mls/ hr CONT PRN IV SEE I/O RECORD Last administered on 01/17/19at 11:34; Start 01/09/19 at 01:45 Potassium Chloride (Klor-Con) 40 meq 1X ONCE PO Last administered on 01/09/19at 11:34; Start 01/09/19 at 09:45; Stop 01/09/19 at 09:46; Status DC Metoclopramide HCl (Reglan Vial) 10 mg PRN Q6HRS PRN IVP NAUSEA/VOMITING, 2ND CHOICE Last administered on 01/14/19at 21:01; Start 01/09/19 at 10:15 Albumin Human 100 ml @ 100 mls/hr 1X ONCE IV Last administered on 01/09/19at 10:49; Start 01/09/19 at 10:15; Stop 01/09/19 at 11:14; Status DC Lactulose (LACTULOSE 300ML for RECTAL) 200 gm Q6HRS SD ; Start 01/09/19 at 12:00; Stop 01/09/19 at 11:04; Status DC Insulin Human Lispro (HumaLOG) 0-9 UNITS TIDWMEALS SQ ; Start 01/09/19 at 12:00 Dextrose (Dextrose 50%-Water Syringe) 12.5 gm PRN Q15MIN PRN IV SEE COMMENTS Last administered on 01/16/19at 13:41; Start 01/09/19 at 10:30 Fentanyl Citrate (Fentanyl 600 Mcg/30 ml SOUP MIXER) 600 mcg STK-MED ONCE IV ; Start 01/08/19 at 15:25; Stop 01/09/19 at 10:27; Status DC Pantoprazole Sodium (PROTONIX VIAL for IV PUSH) 40 mg DAILYAC IVP Last administered on 01/18/19at 08:45; Start 01/10/19 at 07:30 Lactulose (Lactulose) 20 gm DAILY PO Last administered on 01/12/19at 08:24; Start 01/09/19 at 11:30; Stop 01/12/19 at 10:12; Status DC Potassium Bicarbonate (Potassium Effervescent Tablet) 40 meq BIDWMEALS FT Last administered on 01/10/19at 17:49; Start 01/10/19 at 09:00; Stop 01/11/19 at 09:20; Status DC Linezolid/Dextrose 300 ml @ 300 mls/hr Q12HR IV Last administered on 01/16/19at 08:26; Start 01/11/19 at 13:00; Stop 01/16/19 at 08:29; Status DC Perflutren Protein Type A Microsphe (Optison) 0.66 mg 1X ONCE IV ; Start 01/11/19 at 13:30; Stop 01/11/19 at 13:31; Status DC Albumin Human 100 ml @ 100 mls/hr 1X ONCE IV Last administered on 01/12/19at 08:25; Start 01/12/19 at 07:45; Stop 01/12/19 at 08:44; Status DC Lactulose (Lactulose) 20 gm PRN DAILY PRN PO constipation; Start 01/12/19 at 10:15; Stop 01/13/19 at 09:11; Status DC Acetaminophen (Tylenol) 650 mg PRN Q6HRS PRN PEG MILD PAIN / TEMP Last administered on 01/14/19at 09:11; Start 01/12/19 at 16:30 Lactulose (Lactulose) 20 gm TID PO Last administered on 01/14/19at 21:01; Start 01/13/19 at 10:00 Albumin Human 500 ml @ 125 mls/hr 1X ONCE IV Last administered on 01/13/19at 09:40; Start 01/13/19 at 10:00; Stop 01/13/19 at 13:59; Status DC Bisacodyl (Dulcolax Supp) 10 mg 1X ONCE SD Last administered on 01/13/19at 10:14; Start 01/13/19 at 11:00; Stop 01/13/19 at 11:01; Status DC Lidocaine HCl (Buffered Lidocaine 1%) 3 ml 1X ONCE INJ Last administered on 01/13/19at 11:00; Start 01/13/19 at 11:00; Stop 01/13/19 at 11:01; Status DC Heparin Sodium (Porcine) (Heparin Sodium) 10,000 unit STK-MED ONCE .ROUTE ; Start 01/13/19 at 10:59; Stop 01/13/19 at 11:00; Status DC Darbepoetin Giorgi (ARANESP for DIALYSIS PTS) 60 mcg WEEKLYHS SQ Last administered on 01/13/19at 20:46; Start 01/13/19 at 21:00 Info (Tpn Per Pharmacy) 1 each PRN DAILY PRN MC SEE COMMENTS Last administered on 01/17/19at 13:47; Start 01/13/19 at 11:15 Sodium Chloride 1,000 ml @ 1,000 mls/hr Q1H PRN IV hypotension; Start 01/13/19 at 11:30; Stop 01/13/19 at 19:00; Status DC Albumin Human 200 ml @ 200 mls/hr 1X PRN PRN IV Hypotension; Start 01/13/19 at 11:30; Stop 01/13/19 at 17:29; Status DC Sodium Chloride 1,000 ml @ 400 mls/hr Q2H30M PRN IV PATENCY; Start 01/13/19 at 11:30; Stop 01/13/19 at 19:00; Status DC Info (PHARMACY MONITORING -- do not chart) 1 each PRN DAILY PRN MC SEE COMME NTS; Start 01/13/19 at 11:30 Info (PHARMACY MONITORING -- do not chart) 1 each PRN DAILY PRN MC SEE COMMENTS; Start 01/13/19 at 11:30; Status UNV Sodium Acetate 40 meq/Potassium Acetate 30 meq/ Calcium Gluconate 10 meq/ Multivitamins 10 ml/Chromium/ Copper/Manganese/ Seleni/Zn 1 ml/ Total Parenteral Nutrition/Amino Acids/Dextrose/ Fat Emulsion Intravenous 1,512 ml @ 63 mls/hr TPN CONT IV Last administered on 01/13/19at 21:54; Start 01/13/19 at 22:00; Stop 01/14/19 at 21:59; Status DC Multi-Ingred Cream/Lotion/Oil/ Oint (Artificial Tears Eye Ointment) 1 amanda PRN Q1HR PRN OU DRY EYE Last administered on 01/13/19at 17:14; Start 01/13/19 at 16:45 Docusate Sodium (Enemeez) 283 mg 1X ONCE SD Last administered on 01/13/19at 17:14; Start 01/13/19 at 16:45; Stop 01/13/19 at 16:47; Status DC Levofloxacin/ Dextrose 100 ml @ 100 mls/hr Q24H IV Last administered on 01/18/19at 09:11; Start 01/14/19 at 09:00 Metoclopramide HCl (Reglan Vial) 5 mg 1X ONCE IVP Last administered on 01/14/19at 10:51; Start 01/14/19 at 10:30; Stop 01/14/19 at 10:31; Status DC Dexmedetomidine HCl 400 mcg/ Sodium Chloride 100 ml @ 0 mls/hr CONT PRN IV AGITATION Last administered on 01/18/19at 08:19; Start 01/14/19 at 11:30 Sodium Chloride 1,000 ml @ 1,000 mls/hr Q1H PRN IV hypotension; Start 01/14/19 at 11:26; Stop 01/14/19 at 17:25; Status DC Albumin Human 200 ml @ 200 mls/hr 1X PRN PRN IV Hypotension; Start 01/14/19 at 11:30; Stop 01/14/19 at 17:29; Status DC Sodium Chloride 1,000 ml @ 400 mls/hr Q2H30M PRN IV PATENCY; Start 01/14/19 at 11:26; Stop 01/14/19 at 23:25; Status DC Info (PHARMACY MONITORING -- do not chart) 1 each PRN DAILY PRN MC SEE COMMENTS; Start 01/14/19 at 11:30; Status UNV Info (PHARMACY MONITORING -- do not chart) 1 each PRN DAILY PRN MC SEE COMMENTS; Start 01/14/19 at 11:30; Status UNV Sodium Chloride 30 meq/Sodium Acetate 40 meq/ Potassium Acetate 30 meq/Calcium Gluconate 10 meq/ Multivitamins 10 ml/Chromium/ Copper/Manganese/ Seleni/Zn 1 ml/ Total Parenteral Nutrition/Amino Acids/Dextrose/ Fat Emulsion Intravenous 1,512 ml @ 63 mls/hr TPN CONT IV Last administered on 01/15/19at 00:05; Start 01/14/19 at 22:00; Stop 01/15/19 at 21:59; Status DC Artificial Tears (Artificial Tears) 1 drop Q4H PRN OU DRY EYE Last administered on 01/14/19at 16:43; Start 01/14/19 at 15:30 Sodium Bicarbonate (Sodium Bicarb Adult 8.4% Syr) 50 meq STK-MED ONCE .ROUTE ; Start 01/15/19 at 08:25; Stop 01/15/19 at 08:25; Status DC Sodium Bicarbonate (Sodium Bicarb Adult 8.4% Syr) 100 meq 1X ONCE IV Last a dministered on 01/15/19at 08:31; Start 01/15/19 at 08:30; Stop 01/15/19 at 08:31; Status DC Sodium Chloride 40 meq/Sodium Acetate 40 meq/ Potassium Acetate 10 meq/Calcium Gluconate 10 meq/ Multivitamins 10 ml/Chromium/ Copper/Manganese/ Seleni/Zn 1 ml/ Total Parenteral Nutrition/Amino Acids/Dextrose/ Fat Emulsion Intravenous 1,512 ml @ 63 mls/hr TPN CONT IV ; Start 01/15/19 at 22:00; Stop 01/15/19 at 11:06; Status DC Vasopressin 40 unit/Dextrose 102 ml @ 6 mls/hr CONT PRN IV SEE I/O RECORD Last administered on 01/18/19at 04:51; Start 01/15/19 at 10:00 Sodium Chloride 1,000 ml @ 1,000 mls/hr Q1H PRN IV hypotension; Start 01/15/19 at 10:00; Stop 01/15/19 at 15:59; Status DC Albumin Human 200 ml @ 200 mls/hr 1X PRN PRN IV Hypotension Last administered on 01/15/19at 11:07; Start 01/15/19 at 10:00; Stop 01/15/19 at 15:59; Status DC Sodium Chloride 1,000 ml @ 400 mls/hr Q2H30M PRN IV PATENCY; Start 01/15/19 at 10:00; Stop 01/15/19 at 21:59; Status DC Info (PHARMACY MONITORING -- do not chart) 1 each PRN DAILY PRN MC SEE COMMENTS; Start 01/15/19 at 10:00; Stop 01/15/19 at 10:57; Status DC Info (PHARMACY MONITORING -- do not chart) 1 each PRN DAILY PRN MC SEE COMMENTS; Start 01/15/19 at 10:00; Stop 01/15/19 at 10:57; Status DC Sodium Chloride 40 meq/Sodium Acetate 40 meq/ Potassium Acetate 10 meq/Calcium Gluconate 10 meq/ Multivitamins 10 ml/Chromium/ Copper/Manganese/ Seleni/Zn 1 ml/ Thiamine HCl 100 mg/Total Parenteral Nutrition/Amino Acids/Dextrose/ Fat Emulsion Intravenous 1,512 ml @ 63 mls/hr TPN CONT IV ; Start 01/15/19 at 22:00; Stop 01/15/19 at 14:18; Status DC Potassium Chloride 20 meq/ Bicarbonate Dialysis Soln w/ out KCl 5,010 ml @ 1,000 mls/hr Q5H1M IV Last administered on 01/15/19at 15:40; Start 01/15/19 at 14:00; Stop 01/15/19 at 19:00; Status DC Potassium Chloride 20 meq/ Bicarbonate Dialysis Soln w/ out KCl 5,010 ml @ 1,000 mls/hr Q5H1M IV Last administered on 01/15/19at 15:50; Start 01/15/19 at 14:00; Stop 01/15/19 at 19:00; Status DC Potassium Chloride 20 meq/ Bicarbonate Dialysis Soln w/ out KCl 5,010 ml @ 1,000 mls/hr Q5H1M IV Last administered on 01/15/19at 15:50; Start 01/15/19 at 14:00; Stop 01/15/19 at 19:00; Status DC Albumin Human 100 ml @ 100 mls/hr Q6HRS IV Last administered on 01/18/19at 05:54; Start 01/15/19 at 14:00 Potassium Phosphate 20 mmol/ Sodium Chloride 256.6667 ml @ 128.... PRN Q6HRS PRN IV FOR PO4 < 2.5; Start 01/15/19 at 14:00 Sodium Chloride 40 meq/Sodium Acetate 40 meq/ Calcium Gluconate 10 meq/ Multivitamins 10 ml/Chromium/ Copper/Manganese/ Seleni/Zn 1 ml/ Thiamine HCl 100 mg/Total Parenteral Nutrition/Amino Acids/Dextrose/ Fat Emulsion Intravenous 1 ,512 ml @ 63 mls/hr TPN CONT IV Last administered on 01/15/19at 21:45; Start 01/15/19 at 22:00; Stop 01/16/19 at 21:59; Status DC Potassium Chloride 20 meq/ Bicarbonate Dialysis Soln w/ out KCl 5,010 ml @ 500 mls/hr Q10H2M IV Last administered on 01/17/19at 10:43; Start 01/15/19 at 19:01; Stop 01/17/19 at 15:00; Status DC Potassium Chloride 20 meq/ Bicarbonate Dialysis Soln w/ out KCl 5,010 ml @ 1,200 mls/hr Q4H11M IV Last administered on 01/17/19at 10:36; Start 01/15/19 at 19:01; Stop 01/17/19 at 15:00; Status DC Potassium Chloride 20 meq/ Bicarbonate Dialysis Soln w/ out KCl 5,010 ml @ 1,200 mls/hr Q4H11M IV Last administered on 01/17/19at 00:17; Start 01/15/19 at 19:00; Stop 01/17/19 at 15:00; Status DC Daptomycin 500 mg/ Sodium Chloride 50 ml @ 100 mls/hr Q48H IV Last administered on 01/18/19at 09:11; Start 01/16/19 at 09:00 Sodium Chloride 60 meq/Sodium Acetate 40 meq/ Calcium Gluconate 10 meq/ Multivitamins 10 ml/Chromium/ Copper/Manganese/ Seleni/Zn 1 ml/ Thiamine HCl 100 mg/Total Parenteral Nutrition/Amino Acids/Dextrose/ Fat Emulsion Intravenous 1,512 ml @ 63 mls/hr TPN CONT IV Last administered on 01/16/19at 22:00; Start 01/16/19 at 22:00 Sodium Chloride 80 meq/Calcium Gluconate 10 meq/ Multivitamins 10 ml/Chromium/ Copper/Manganese/ Seleni/Zn 1 ml/ Thiamine HCl 100 mg/Total Parenteral Nutrition/Amino Acids/Dextrose/ Fat Emulsion Intravenous 1,512 ml @ 63 mls/hr TPN CONT IV Last administered on 01/17/19at 21:52; Start 01/17/19 at 22:00 Potassium Chloride 20 meq/ Sodium Bicarbonate 40 meq/Bicarbonate Dialysis Soln w/ out KCl 5,050 ml @ 500 mls/hr Q10H6M IV Last administered on 01/18/19at 08:17; Start 01/17/19 at 15:00 Potassium Chloride 20 meq/ Sodium Bicarbonate 40 meq/Bicarbonate Dialysis Soln w/ out KCl 5,050 ml @ 1,200 mls/hr Q4H13M IV Last administered on 01/18/19at 06:01; Start 01/17/19 at 15:00 Potassium Chloride 20 meq/ Sodium Bicarbonate 40 meq/Bicarbonate Dialysis Soln w/ out KCl 5,050 ml @ 1,200 mls/hr Q4H13M IV Last administered on 01/18/19at 06:01; Start 01/17/19 at 15:00 Potassium Phosphate 20 mmol/ Sodium Chloride 256.6667 ml @ 128.... ONCE ONCE IV Last administered on 01/17/19at 18:21; Start 01/17/19 at 17:45; Stop 01/17/19 at 19:44; Status DC Calcium Chloride 12.5 meq/ Magnesium Sulfate 2.5 meq/Potassium Chloride 10 meq/ Sodium Bicarbonate 40 meq/Bicarbonate Dialysis Soln w/ out KCl 5,054.5443 ml @ 1,200 mls/hr Q4H13M IV ; Start 01/18/19 at 10:00 Calcium Chloride 12.5 meq/ Magnesium Sulfate 2.5 meq/Potassium Chloride 10 meq/ Sodium Bicarbonate 40 meq/Bicarbonate Dialysis Soln w/ out KCl 5,054.5443 ml @ 1,200 mls/hr Q4H13M IV ; Start 01/18/19 at 10:00 Vitals/I & O Vital Sign - Last 24 Hours 01/17/19 01/17/19 01/17/19 01/17/19 10:00 10:54 11:00 11:24 Pulse 99 100 Resp 24 24 B/P (MAP) 116/58 (77) 136/46 (76) Pulse Ox 100 100 100 100 O2 Delivery Ventilator Ventilator O2 Flow Rate 2.0 2.0 01/17/19 01/17/19 01/17/19 01/17/19 12:00 12:00 12:09 13:00 Temp 98.2 98.2 Pulse 99 87 Resp 24 24 B/P (MAP) 136/54 (81) 123/49 (73) Pulse Ox 96 96 100 O2 Delivery Mechanical Ventilator Ventilator Ventilator Ventilator 01/17/19 01/17/19 01/17/19 01/17/19 13:10 14:00 15:00 16:00 Temp 97.9 97.9 Pulse 88 88 94 Resp 23 23 24 B/P (MAP) 127/51 (76) 112/45 (67) 119/46 (70) Pulse Ox 96 96 95 94 O2 Delivery Ventilator Ventilator Ventilator Ventilator 01/17/19 01/17/19 01/17/19 01/17/19 16:00 16:36 17:00 18:00 Pulse 86 79 Resp 23 23 B/P (MAP) 136/48 (77) 119/43 (68) Pulse Ox 96 95 95 O2 Delivery Mechanical Ventilator Ventilator Ventilator Ventilator 01/17/19 01/17/19 01/17/19 01/17/19 18:22 19:00 20:00 20:00 Temp 97.6 97.6 Pulse 81 87 Resp 24 24 B/P (MAP) 145/54 (84) 159/44 (82) Pulse Ox 93 93 92 O2 Delivery Ventilator Ventilator Mechanical Ventilator Ventilator 01/17/19 01/17/19 01/17/19 01/17/19 20:15 21:00 22:00 23:00 Pulse 80 71 68 Resp 24 24 24 B/P (MAP) 117/66 (83) 132/42 (72) 98/43 (61) Pulse Ox 91 91 90 90 O2 Delivery Ventilator Ventilator Ventilator Ventilator 01/17/19 01/17/19 01/17/19 01/18/19 23:32 23:36 23:59 00:00 Temp 97.2 97.2 Pulse 68 Resp 24 B/P (MAP) 106/39 (61) Pulse Ox 90 86 88 O2 Delivery Ventilator Ventilator Mechanical Ventilator Ventilator 01/18/19 01/18/19 01/18/19 01/18/19 00:02 01:00 01:27 02:00 Pulse 74 73 Resp 24 24 B/P (MAP) 132/48 (76) 126/44 (71) Pulse Ox 91 91 91 91 O2 Delivery Ventilator Ventilator Ventilator Ventilator 01/18/19 01/18/19 01/18/19 01/18/19 03:00 03:37 04:00 04:00 Temp 97.2 97.2 Pulse 70 70 Resp 24 24 B/P (MAP) 112/56 (74) 114/56 (75) Pulse Ox 93 93 90 O2 Delivery Ventilator Ventilator Ventilator Mechanical Ventilator 01/18/19 01/18/19 01/18/19 01/18/19 05:00 05:06 06:00 07:00 Pulse 96 100 104 Resp 24 24 24 B/P (MAP) 119/60 (79) 121/51 (74) 114/48 (70) Pulse Ox 90 90 85 85 O2 Delivery Ventilator Ventilator Ventilator Ventilator 01/18/19 01/18/19 08:00 08:00 Temp 95.0 95.0 Pulse 96 Resp 24 B/P (MAP) 106/52 (70) Pulse Ox 85 O2 Delivery Ventilator Mechanical Ventilator Intake and Output 0 01/17/19 01/17/19 01/18/19 15:00 23:00 07:00 Intake Total 200 ml 1752.5 ml 666 ml Output Total 0 ml 3 ml 0 ml Balance 200 ml 1749.5 ml 666 ml MERLE MEYER MD Jan 18, 2019 09:13
[2019-01-18 09:17] LABS: BASE EXCESS ABG -6 mmol/L (-3-3); HCO3 ABG 20 mmol/L (21-28); PCO2 ABG 41 mmHg (35-46); SAT O2 ABG 78 % (92-99)
[2019-01-18 09:21] LABS: FIO2 ABG 100; PO2 ABG 50 mmHg (85-108)
[2019-01-18] MEDS: CALCIUM CHLORIDE IV SCH ×45 (09:37→23:09)
[2019-01-18] MEDS: [UNRECOGNIZED DRUG - OTHER] IV SCH ×45 (09:37→23:09)
[2019-01-18] MEDS: MAGNESIUM SULFATE IV SCH ×45 (09:37→23:09)
--- NOTE | 2019-01-18 09:55 | PDOC ---
PULMONARY PROGRESS NOTES Subjective Hypoxic failure HEAVELY SEDATED ON PC MODE 15 PEEP 100 %, on propofol, versed, fentanyl, mod ett secretion. stiff lungs with high plateau pressure ON levo, on CRRT Vitals Vital Signs Date Time Temp Pulse Resp B/P (MAP) Pulse Ox O2 Delivery O2 Flow Rate FiO2 01/18/19 09:00 67 24 111/45 (67) 87 Ventilator 01/18/19 08:00 95.0 95.0 01/17/19 11:24 2.0 Comments ros as mentioned as above discussed w rn other sys otherwise neg on vent sedated Lungs: Other (decrease bs) Cardiovascular: S1, S2 Abdomen: Soft, Non-tender, Other (DISTENDED no mass) Extremities: Other (EDEMA) Skin: Warm Labs Laboratory Tests Test 01/16/19 13:33 01/16/19 14:15 01/16/19 15:30 01/16/19 17:17 Glucose (Fingerstick) 89 mg/dL (70-99) 117 mg/dL (70-99) 78 mg/dL (70-99) Sodium Level 137 mmol/L (136-145) Potassium Level 4.4 mmol/L (3.5-5.1) Chloride Level 100 mmol/L (98-107) Carbon Dioxide Level 20 mmol/L (21-32) Anion Gap 17 (6-14) Blood Urea Nitrogen 29 mg/dL (8-26) Creatinine 1.7 mg/dL (0.7-1.3) Estimated GFR (Cockcroft-Gault) 45.3 Glucose Level 95 mg/dL (70-99) Lactic Acid Level 12.1 mmol/L (0.4-2.0) Calcium Level 7.2 mg/dL (8.5-10.1) Phosphorus Level 4.1 mg/dL (2.6-4.7) Magnesium Level 2.4 mg/dL (1.8-2.4) Test 01/16/19 22:00 01/16/19 22:10 01/17/19 05:30 01/17/19 07:55 Sodium Level 137 mmol/L (136-145) 137 mmol/L (136-145) Potassium Level 4.6 mmol/L (3.5-5.1) 4.6 mmol/L (3.5-5.1) Chloride Level 100 mmol/L (98-107) 100 mmol/L (98-107) Carbon Dioxide Level 17 mmol/L (21-32) 20 mmol/L (21-32) Anion Gap 20 (6-14) 17 (6-14) Blood Urea Nitrogen 33 mg/dL (8-26) 31 mg/dL (8-26) Creatinine 1.9 mg/dL (0.7-1.3) 1.8 mg/dL (0.7-1.3) Estimated GFR (Cockcroft-Gault) 39.9 42.4 Glucose Level 76 mg/dL (70-99) 110 mg/dL (70-99) Lactic Acid Level 12.7 mmol/L (0.4-2.0) 10.8 mmol/L (0.4-2.0) Calcium Level 7.3 mg/dL (8.5-10.1) 7.6 mg/dL (8.5-10.1) Phosphorus Level 3.6 mg/dL (2.6-4.7) 3.3 mg/dL (2.6-4.7) Magnesium Level 2.4 mg/dL (1.8-2.4) 2.3 mg/dL (1.8-2.4) Glucose (Fingerstick) 75 mg/dL (70-99) White Blood Count 28.7 x10^3/uL (4.0-11.0) Red Blood Count 2.22 x10^6/uL (4.30-5.70) Hemoglobin 7.4 g/dL (13.0-17.5) Hematocrit 23.3 % (39.0-53.0) Mean Corpuscular Volume 105 fL (79-100) Mean Corpuscular Hemoglobin 33 pg (25-35) Mean Corpuscular Hemoglobin Concent 32 g/dL (31-37) Red Cell Distribution Width 19.6 % (11.5-14.5) Platelet Count 78 x10^3/uL (140-400) Neutrophils (%) (Auto) 86 % (31-73) Lymphocytes (%) (Auto) 11 % (24-48) Monocytes (%) (Auto) 2 % (0-9) Eosinophils (%) (Auto) 0 % (0-3) Basophils (%) (Auto) 1 % (0-3) Neutrophils # (Auto) 24.7 x10^3/uL (1.8-7.7) Lymphocytes # (Auto) 3.1 x10^3/uL (1.0-4.8) Monocytes # (Auto) 0.7 x10^3/uL (0.0-1.1) Eosinophils # (Auto) 0.1 x10^3/uL (0.0-0.7) Basophils # (Auto) 0.1 x10^3/uL (0.0-0.2) Test 01/17/19 08:05 01/17/19 11:42 01/17/19 16:00 01/17/19 23:30 O2 Saturation 88 % (92-99) Arterial Blood pH 7.26 (7.35-7.45) Arterial Blood pCO2 at Patient Temp 37 mmHg (35-46) Arterial Blood pO2 at Patient Temp 63 mmHg (85-108) Arterial Blood HCO3 16 mmol/L (21-28) Arterial Blood Base Excess -10 mmol/L (-3-3) FiO2 100 Sodium Level 137 mmol/L (136-145) 137 mmol/L (136-145) Potassium Level 4.6 mmol/L (3.5-5.1) 4.3 mmol/L (3.5-5.1) Chloride Level 101 mmol/L (98-107) 101 mmol/L (98-107) Carbon Dioxide Level 21 mmol/L (21-32) 20 mmol/L (21-32) Anion Gap 15 (6-14) 16 (6-14) Blood Urea Nitrogen 31 mg/dL (8-26) 31 mg/dL (8-26) Creatinine 1.8 mg/dL (0.7-1.3) 1.7 mg/dL (0.7-1.3) Estimated GFR (Cockcroft-Gault) 42.4 45.3 Glucose Level 117 mg/dL (70-99) 117 mg/dL (70-99) Calcium Level 7.4 mg/dL (8.5-10.1) 7.2 mg/dL (8.5-10.1) Phosphorus Level 2.9 mg/dL (2.6-4.7) 2.3 mg/dL (2.6-4.7) Magnesium Level 2.3 mg/dL (1.8-2.4) 2.4 mg/dL (1.8-2.4) Lactic Acid Level 10.7 mmol/L (0.4-2.0) 12.3 mmol/L (0.4-2.0) Test 01/18/19 00:00 01/18/19 05:40 01/18/19 07:40 01/18/19 08:45 Sodium Level 140 mmol/L (136-145) 140 mmol/L (136-145) Potassium Level 4.7 mmol/L (3.5-5.1) 4.1 mmol/L (3.5-5.1) Chloride Level 103 mmol/L (98-107) 102 mmol/L (98-107) Carbon Dioxide Level 19 mmol/L (21-32) 21 mmol/L (21-32) Anion Gap 18 (6-14) 17 (6-14) Blood Urea Nitrogen 33 mg/dL (8-26) 30 mg/dL (8-26) Creatinine 1.8 mg/dL (0.7-1.3) 1.5 mg/dL (0.7-1.3) Estimated GFR (Cockcroft-Gault) 42.4 52.4 Glucose Level 102 mg/dL (70-99) 150 mg/dL (70-99) Calcium Level 7.2 mg/dL (8.5-10.1) 7.2 mg/dL (8.5-10.1) Phosphorus Level 3.6 mg/dL (2.6-4.7) 2.2 mg/dL (2.6-4.7) Magnesium Level 2.3 mg/dL (1.8-2.4) 2.3 mg/dL (1.8-2.4) White Blood Count 15.7 x10^3/uL (4.0-11.0) Red Blood Count 1.88 x10^6/uL (4.30-5.70) Hemoglobin 6.3 g/dL (13.0-17.5) Hematocrit 19.6 % (39.0-53.0) Mean Corpuscular Volume 105 fL (79-100) Mean Corpuscular Hemoglobin 34 pg (25-35) Mean Corpuscular Hemoglobin Concent 32 g/dL (31-37) Red Cell Distribution Width 19.4 % (11.5-14.5) Platelet Count 44 x10^3/uL (140-400) Neutrophils (%) (Auto) 85 % (31-73) Lymphocytes (%) (Auto) 12 % (24-48) Monocytes (%) (Auto) 3 % (0-9) Eosinophils (%) (Auto) 1 % (0-3) Basophils (%) (Auto) 0 % (0-3) Neutrophils # (Auto) 13.3 x10^3/uL (1.8-7.7) Lymphocytes # (Auto) 1.9 x10^3/uL (1.0-4.8) Monocytes # (Auto) 0.4 x10^3/uL (0.0-1.1) Eosinophils # (Auto) 0.1 x10^3/uL (0.0-0.7) Basophils # (Auto) 0.1 x10^3/uL (0.0-0.2) Albumin 3.0 g/dL (3.4-5.0) O2 Saturation 78 % (92-99) Arterial Blood pH 7.30 (7.35-7.45) Arterial Blood pCO2 at Patient Temp 41 mmHg (35-46) Arterial Blood pO2 at Patient Temp 50 mmHg (85-108) Arterial Blood HCO3 20 mmol/L (21-28) Arterial Blood Base Excess -6 mmol/L (-3-3) FiO2 100 Laboratory Tests Test 01/17/19 11:42 01/17/19 16:00 01/17/19 23:30 01/18/19 00:00 Sodium Level 137 mmol/L (136-145) 137 mmol/L (136-145) 140 mmol/L (136-145) Potassium Level 4.6 mmol/L (3.5-5.1) 4.3 mmol/L (3.5-5.1) 4.7 mmol/L (3.5-5.1) Chloride Level 101 mmol/L (98-107) 101 mmol/L (98-107) 103 mmol/L (98-107) Carbon Dioxide Level 21 mmol/L (21-32) 20 mmol/L (21-32) 19 mmol/L (21-32) Anion Gap 15 (6-14) 16 (6-14) 18 (6-14) Blood Urea Nitrogen 31 mg/dL (8-26) 31 mg/dL (8-26) 33 mg/dL (8-26) Creatinine 1.8 mg/dL (0.7-1.3) 1.7 mg/dL (0.7-1.3) 1.8 mg/dL (0.7-1.3) Estimated GFR (Cockcroft-Gault) 42.4 45.3 42.4 Glucose Level 117 mg/dL (70-99) 117 mg/dL (70-99) 102 mg/dL (70-99) Calcium Level 7.4 mg/dL (8.5-10.1) 7.2 mg/dL (8.5-10.1) 7.2 mg/dL (8.5-10.1) Phosphorus Level 2.9 mg/dL (2.6-4.7) 2.3 mg/dL (2.6-4.7) 3.6 mg/dL (2.6-4.7) Magnesium Level 2.3 mg/dL (1.8-2.4) 2.4 mg/dL (1.8-2.4) 2.3 mg/dL (1.8-2.4) Lactic Acid Level 10.7 mmol/L (0.4-2.0) 12.3 mmol/L (0.4-2.0) Test 01/18/19 05:40 01/18/19 07:40 01/18/19 08:45 White Blood Count 15.7 x10^3/uL (4.0-11.0) Red Blood Count 1.88 x10^6/uL (4.30-5.70) Hemoglobin 6.3 g/dL (13.0-17.5) Hematocrit 19.6 % (39.0-53.0) Mean Corpuscular Volume 105 fL (79-100) Mean Corpuscular Hemoglobin 34 pg (25-35) Mean Corpuscular Hemoglobin Concent 32 g/dL (31-37) Red Cell Distribution Width 19.4 % (11.5-14.5) Platelet Count 44 x10^3/uL (140-400) Neutrophils (%) (Auto) 85 % (31-73) Lymphocytes (%) (Auto) 12 % (24-48) Monocytes (%) (Auto) 3 % (0-9) Eosinophils (%) (Auto) 1 % (0-3) Basophils (%) (Auto) 0 % (0-3) Neutrophils # (Auto) 13.3 x10^3/uL (1.8-7.7) Lymphocytes # (Auto) 1.9 x10^3/uL (1.0-4.8) Monocytes # (Auto) 0.4 x10^3/uL (0.0-1.1) Eosinophils # (Auto) 0.1 x10^3/uL (0.0-0.7) Basophils # (Auto) 0.1 x10^3/uL (0.0-0.2) Sodium Level 140 mmol/L (136-145) Potassium Level 4.1 mmol/L (3.5-5.1) Chloride Level 102 mmol/L (98-107) Carbon Dioxide Level 21 mmol/L (21-32) Anion Gap 17 (6-14) Blood Urea Nitrogen 30 mg/dL (8-26) Creatinine 1.5 mg/dL (0.7-1.3) Estimated GFR (Cockcroft-Gault) 52.4 Glucose Level 150 mg/dL (70-99) Calcium Level 7.2 mg/dL (8.5-10.1) Phosphorus Level 2.2 mg/dL (2.6-4.7) Magnesium Level 2.3 mg/dL (1.8-2.4) Albumin 3.0 g/dL (3.4-5.0) O2 Saturation 78 % (92-99) Arterial Blood pH 7.30 (7.35-7.45) Arterial Blood pCO2 at Patient Temp 41 mmHg (35-46) Arterial Blood pO2 at Patient Temp 50 mmHg (85-108) Arterial Blood HCO3 20 mmol/L (21-28) Arterial Blood Base Excess -6 mmol/L (-3-3) FiO2 100 Comments cxr reviewed, 01/18 ett ok Bilateral infiltrates worse Impression . IMPRESSION: 1. Acute respiratory failure, multifactorial, secondary to multiorgan failure. Now with worsening hypoxia/ hypercapnia.likely superimposed fluid overload/CHF/ underlying aspiration pneumonitis/ ARDS, no evidence of hepato-pulmonary shunt on Bubble echo 2. End-stage liver disease with persistent abnormal LFT 3. Multiorgan failure. 4. Renal failure. ? hepato renal syndrome, remains oliguric, on CRRT 5. Acute gastrointestinal bleed.? MV Tear, stable Hb 6. sepsis. 7. Leukocytosis. marked increase, no fever, possible leukemoid reaction 8. Hematemesis.resolved 9. Rhabdomyolysis. 10. Alcohol abuse. 11. Ascites. 12. Electrolyte abnormalities. 13. fever,resolved Imaging: EGD 01/08 E--NO VARICES. Erosions distally c/w reflux/repeated emesis. One quite long narrow erosion which could have been a M-W. No active bleeding or clot. G--Not much retained blood after OG suction and Reglan. NO gastric varices. Linear erosions along the rugae in fundus and body c/w alcoholic or stress gas tritis. Scattered "bruises" from OG tube. No ulcer, etc. D--Normal to second portion. IMP: Reflux esophagitis. ? recent M-W tear. Alcoholic gastritis. No active bleeding or clot seen. Plan . PC/ENZO PEEP of 15, cont 100 Fi02 titration, f/u ABG, OK with permissive hypercapnia. will be ok with PH> 7.25 Not stable for Bronch, Not indicated at present 1. D/W Dr Allen Domínguez. UF. with CRRT. previously attempts to remove fluid resulted in increasing lactic acid. he now has worsening pulmonary edema by CXR and worsening oxygenation consistent with his oliguria. Will again attempt fluid removal. 2. Continue BS antibiotics per Infectious Disease 3. F/U CXR 4. remains critically ill with poor prognosis 5. Monitor hemoglobin and hematocrit. 6. Follow GI recommendation.f/u LFT 7. Alcohol withdrawal protocol. 8. Nutrition, on TPN, on CRRT / keeping neg on fluid balance 9. echo with bubble study SUSAN Yeh MD Jan 18, 2019 09:55
--- NOTE | 2019-01-18 09:59 | RAD ---
PORTABLE CHEST 1V INDICATION: Respiratory failure. COMPARISON STUDY: 01/17/2019. FINDINGS: Stable life-support devices Lungs: Low lung volume. Stable diffuse right greater than left allergies opacities. Indistinct pulmonary vasculature. Pleura: Stable pleural spaces. Heart and Mediastinum: Stable cardiomediastinal silhouette and great vessels. IMPRESSION: 1. Stable life support devices. 2. Stable diffuse right greater than left heterogeneous opacities. Electronically signed by: Rico Solis MD (01/18/2019 9:56 AM) [facility]
[2019-01-18] MEDS: POTASSIUM PHOSPHATE DIBASIC 20 MMOL in IV NORMAL SALINE 250ML 250 ML IV PRN (11:13)
--- NOTE | 2019-01-18 12:42 | PDOC ---
G I PROGRESS NOTE Subjective Sedated on ventilator. Objective Platelets falling; per staff DIC w/u ordered (not apparently back). Physical Exam Lungs clear anteriorly with low air movement. RRR, distant. Soft, no bowel sounds heard. Review of Relevant I have reviewed the following items karen (where applicable) has been applied. Labs Laboratory Tests Test 01/16/19 13:33 01/16/19 14:15 01/16/19 15:30 01/16/19 17:17 Glucose (Fingerstick) 89 mg/dL (70-99) 117 mg/dL (70-99) 78 mg/dL (70-99) Sodium Level 137 mmol/L (136-145) Potassium Level 4.4 mmol/L (3.5-5.1) Chloride Level 100 mmol/L (98-107) Carbon Dioxide Level 20 mmol/L (21-32) Anion Gap 17 (6-14) Blood Urea Nitrogen 29 mg/dL (8-26) Creatinine 1.7 mg/dL (0.7-1.3) Estimated GFR (Cockcroft-Gault) 45.3 Glucose Level 95 mg/dL (70-99) Lactic Acid Level 12.1 mmol/L (0.4-2.0) Calcium Level 7.2 mg/dL (8.5-10.1) Phosphorus Level 4.1 mg/dL (2.6-4.7) Magnesium Level 2.4 mg/dL (1.8-2.4) Test 01/16/19 22:00 01/16/19 22:10 01/17/19 05:30 01/17/19 07:55 Sodium Level 137 mmol/L (136-145) 137 mmol/L (136-145) Potassium Level 4.6 mmol/L (3.5-5.1) 4.6 mmol/L (3.5-5.1) Chloride Level 100 mmol/L (98-107) 100 mmol/L (98-107) Carbon Dioxide Level 17 mmol/L (21-32) 20 mmol/L (21-32) Anion Gap 20 (6-14) 17 (6-14) Blood Urea Nitrogen 33 mg/dL (8-26) 31 mg/dL (8-26) Creatinine 1.9 mg/dL (0.7-1.3) 1.8 mg/dL (0.7-1.3) Estimated GFR (Cockcroft-Gault) 39.9 42.4 Glucose Level 76 mg/dL (70-99) 110 mg/dL (70-99) Lactic Acid Level 12.7 mmol/L (0.4-2.0) 10.8 mmol/L (0.4-2.0) Calcium Level 7.3 mg/dL (8.5-10.1) 7.6 mg/dL (8.5-10.1) Phosphorus Level 3.6 mg/dL (2.6-4.7) 3.3 mg/dL (2.6-4.7) Magnesium Level 2.4 mg/dL (1.8-2.4) 2.3 mg/dL (1.8-2.4) Glucose (Fingerstick) 75 mg/dL (70-99) White Blood Count 28.7 x10^3/uL (4.0-11.0) Red Blood Count 2.22 x10^6/uL (4.30-5.70) Hemoglobin 7.4 g/dL (13.0-17.5) Hematocrit 23.3 % (39.0-53.0) Mean Corpuscular Volume 105 fL (79-100) Mean Corpuscular Hemoglobin 33 pg (25-35) Mean Corpuscular Hemoglobin Concent 32 g/dL (31-37) Red Cell Distribution Width 19.6 % (11.5-14.5) Platelet Count 78 x10^3/uL (140-400) Neutrophils (%) (Auto) 86 % (31-73) Lymphocytes (%) (Auto) 11 % (24-48) Monocytes (%) (Auto) 2 % (0-9) Eosinophils (%) (Auto) 0 % (0-3) Basophils (%) (Auto) 1 % (0-3) Neutrophils # (Auto) 24.7 x10^3/uL (1.8-7.7) Lymphocytes # (Auto) 3.1 x10^3/uL (1.0-4.8) Monocytes # (Auto) 0.7 x10^3/uL (0.0-1.1) Eosinophils # (Auto) 0.1 x10^3/uL (0.0-0.7) Basophils # (Auto) 0.1 x10^3/uL (0.0-0.2) Test 01/17/19 08:05 01/17/19 11:42 01/17/19 16:00 01/17/19 23:30 O2 Saturation 88 % (92-99) Arterial Blood pH 7.26 (7.35-7.45) Arterial Blood pCO2 at Patient Temp 37 mmHg (35-46) Arterial Blood pO2 at Patient Temp 63 mmHg (85-108) Arterial Blood HCO3 16 mmol/L (21-28) Arterial Blood Base Excess -10 mmol/L (-3-3) FiO2 100 Sodium Level 137 mmol/L (136-145) 137 mmol/L (136-145) Potassium Level 4.6 mmol/L (3.5-5.1) 4.3 mmol/L (3.5-5.1) Chloride Level 101 mmol/L (98-107) 101 mmol/L (98-107) Carbon Dioxide Level 21 mmol/L (21-32) 20 mmol/L (21-32) Anion Gap 15 (6-14) 16 (6-14) Blood Urea Nitrogen 31 mg/dL (8-26) 31 mg/dL (8-26) Creatinine 1.8 mg/dL (0.7-1.3) 1.7 mg/dL (0.7-1.3) Estimated GFR (Cockcroft-Gault) 42.4 45.3 Glucose Level 117 mg/dL (70-99) 117 mg/dL (70-99) Calcium Level 7.4 mg/dL (8.5-10.1) 7.2 mg/dL (8.5-10.1) Phosphorus Level 2.9 mg/dL (2.6-4.7) 2.3 mg/dL (2.6-4.7) Magnesium Level 2.3 mg/dL (1.8-2.4) 2.4 mg/dL (1.8-2.4) Lactic Acid Level 10.7 mmol/L (0.4-2.0) 12.3 mmol/L (0.4-2.0) Test 01/18/19 00:00 01/18/19 05:40 01/18/19 07:40 01/18/19 08:45 Sodium Level 140 mmol/L (136-145) 140 mmol/L (136-145) Potassium Level 4.7 mmol/L (3.5-5.1) 4.1 mmol/L (3.5-5.1) Chloride Level 103 mmol/L (98-107) 102 mmol/L (98-107) Carbon Dioxide Level 19 mmol/L (21-32) 21 mmol/L (21-32) Anion Gap 18 (6-14) 17 (6-14) Blood Urea Nitrogen 33 mg/dL (8-26) 30 mg/dL (8-26) Creatinine 1.8 mg/dL (0.7-1.3) 1.5 mg/dL (0.7-1.3) Estimated GFR (Cockcroft-Gault) 42.4 52.4 Glucose Level 102 mg/dL (70-99) 150 mg/dL (70-99) Calcium Level 7.2 mg/dL (8.5-10.1) 7.2 mg/dL (8.5-10.1) Phosphorus Level 3.6 mg/dL (2.6-4.7) 2.2 mg/dL (2.6-4.7) Magnesium Level 2.3 mg/dL (1.8-2.4) 2.3 mg/dL (1.8-2.4) White Blood Count 15.7 x10^3/uL (4.0-11.0) Red Blood Count 1.88 x10^6/uL (4.30-5.70) Hemoglobin 6.3 g/dL (13.0-17.5) Hematocrit 19.6 % (39.0-53.0) Mean Corpuscular Volume 105 fL (79-100) Mean Corpuscular Hemoglobin 34 pg (25-35) Mean Corpuscular Hemoglobin Concent 32 g/dL (31-37) Red Cell Distribution Width 19.4 % (11.5-14.5) Platelet Count 44 x10^3/uL (140-400) Neutrophils (%) (Auto) 85 % (31-73) Lymphocytes (%) (Auto) 12 % (24-48) Monocytes (%) (Auto) 3 % (0-9) Eosinophils (%) (Auto) 1 % (0-3) Basophils (%) (Auto) 0 % (0-3) Neutrophils # (Auto) 13.3 x10^3/uL (1.8-7.7) Lymphocytes # (Auto) 1.9 x10^3/uL (1.0-4.8) Monocytes # (Auto) 0.4 x10^3/uL (0.0-1.1) Eosinophils # (Auto) 0.1 x10^3/uL (0.0-0.7) Basophils # (Auto) 0.1 x10^3/uL (0.0-0.2) Albumin 3.0 g/dL (3.4-5.0) O2 Saturation 78 % (92-99) Arterial Blood pH 7.30 (7.35-7.45) Arterial Blood pCO2 at Patient Temp 41 mmHg (35-46) Arterial Blood pO2 at Patient Temp 50 mmHg (85-108) Arterial Blood HCO3 20 mmol/L (21-28) Arterial Blood Base Excess -6 mmol/L (-3-3) FiO2 100 Test 01/18/19 08:50 Fibrinogen 145 mg/dL (200-440) Laboratory Tests Test 01/17/19 16:00 01/17/19 23:30 01/18/19 00:00 01/18/19 05:40 Sodium Level 137 mmol/L (136-145) 140 mmol/L (136-145) Potassium Level 4.3 mmol/L (3.5-5.1) 4.7 mmol/L (3.5-5.1) Chloride Level 101 mmol/L (98-107) 103 mmol/L (98-107) Carbon Dioxide Level 20 mmol/L (21-32) 19 mmol/L (21-32) Anion Gap 16 (6-14) 18 (6-14) Blood Urea Nitrogen 31 mg/dL (8-26) 33 mg/dL (8-26) Creatinine 1.7 mg/dL (0.7-1.3) 1.8 mg/dL (0.7-1.3) Estimated GFR (Cockcroft-Gault) 45.3 42.4 Glucose Level 117 mg/dL (70-99) 102 mg/dL (70-99) Lactic Acid Level 10.7 mmol/L (0.4-2.0) 12.3 mmol/L (0.4-2.0) Calcium Level 7.2 mg/dL (8.5-10.1) 7.2 mg/dL (8.5-10.1) Phosphorus Level 2.3 mg/dL (2.6-4.7) 3.6 mg/dL (2.6-4.7) Magnesium Level 2.4 mg/dL (1.8-2.4) 2.3 mg/dL (1.8-2.4) White Blood Count 15.7 x10^3/uL (4.0-11.0) Red Blood Count 1.88 x10^6/uL (4.30-5.70) Hemoglobin 6.3 g/dL (13.0-17.5) Hematocrit 19.6 % (39.0-53.0) Mean Corpuscular Volume 105 fL (79-100) Mean Corpuscular Hemoglobin 34 pg (25-35) Mean Corpuscular Hemoglobin Concent 32 g/dL (31-37) Red Cell Distribution Width 19.4 % (11.5-14.5) Platelet Count 44 x10^3/uL (140-400) Neutrophils (%) (Auto) 85 % (31-73) Lymphocytes (%) (Auto) 12 % (24-48) Monocytes (%) (Auto) 3 % (0-9) Eosinophils (%) (Auto) 1 % (0-3) Basophils (%) (Auto) 0 % (0-3) Neutrophils # (Auto) 13.3 x10^3/uL (1.8-7.7) Lymphocytes # (Auto) 1.9 x10^3/uL (1.0-4.8) Monocytes # (Auto) 0.4 x10^3/uL (0.0-1.1) Eosinophils # (Auto) 0.1 x10^3/uL (0.0-0.7) Basophils # (Auto) 0.1 x10^3/uL (0.0-0.2) Test 01/18/19 07:40 01/18/19 08:45 01/18/19 08:50 Sodium Level 140 mmol/L (136-145) Potassium Level 4.1 mmol/L (3.5-5.1) Chloride Level 102 mmol/L (98-107) Carbon Dioxide Level 21 mmol/L (21-32) Anion Gap 17 (6-14) Blood Urea Nitrogen 30 mg/dL (8-26) Creatinine 1.5 mg/dL (0.7-1.3) Estimated GFR (Cockcroft-Gault) 52.4 Glucose Level 150 mg/dL (70-99) Calcium Level 7.2 mg/dL (8.5-10.1) Phosphorus Level 2.2 mg/dL (2.6-4.7) Magnesium Level 2.3 mg/dL (1.8-2.4) Albumin 3.0 g/dL (3.4-5.0) O2 Saturation 78 % (92-99) Arterial Blood pH 7.30 (7.35-7.45) Arterial Blood pCO2 at Patient Temp 41 mmHg (35-46) Arterial Blood pO2 at Patient Temp 50 mmHg (85-108) Arterial Blood HCO3 20 mmol/L (21-28) Arterial Blood Base Excess -6 mmol/L (-3-3) FiO2 100 Fibrinogen 145 mg/dL (200-440) Microbiology 01/15/19 - Final, Resulted 01/15/19 - Final, Resulted 01/15/19 - Final, Resulted 01/15/19 - Preliminary, Resulted 01/15/19 - Preliminary, Resulted 01/15/19 - Preliminary, Resulted 01/15/19 Gram Stain Evaluation - Final, Resulted 01/15/19 Sputum Culture, Resulted Pending 01/14/19 Blood Culture - Preliminary, Resulted NO GROWTH AFTER 4 DAYS 01/08/19 Urine Culture - Final, Complete 01/08/19 Urine Culture Result 1 (ELMA) - Final, Complete Vitals/I & O Vital Sign - Last 24 Hours 01/17/19 01/17/19 01/17/19 01/17/19 13:00 13:10 14:00 15:00 Pulse 87 88 88 Resp 24 23 23 B/P (MAP) 123/49 (73) 127/51 (76) 112/45 (67) Pulse Ox 100 96 96 95 O2 Delivery Ventilator Ventilator Ventilator Ventilator 01/17/19 01/17/19 01/17/19 01/17/19 16:00 16:00 16:36 17:00 Temp 97.9 97.9 Pulse 94 86 Resp 24 23 B/P (MAP) 119/46 (70) 136/48 (77) Pulse Ox 94 96 95 O2 Delivery Ventilator Mechanical Ventilator Ventilator Ventilator 01/17/19 01/17/19 01/17/19 01/17/19 18:00 18:22 19:00 20:00 Pulse 79 81 Resp 23 24 B/P (MAP) 119/43 (68) 145/54 (84) Pulse Ox 95 93 93 O2 Delivery Ventilator Ventilator Ventilator Mechanical Ventilator 01/17/19 01/17/19 01/17/19 01/17/19 20:00 20:15 21:00 22:00 Temp 97.6 97.6 Pulse 87 80 71 Resp 24 24 24 B/P (MAP) 159/44 (82) 117/66 (83) 132/42 (72) Pulse Ox 92 91 91 90 O2 Delivery Ventilator Ventilator Ventilator Ventilator 01/17/19 01/17/19 01/17/19 01/17/19 23:00 23:32 23:36 23:59 Pulse 68 Resp 24 B/P (MAP) 98/43 (61) Pulse Ox 90 90 86 O2 Delivery Ventilator Ventilator Ventilator Mechanical Ventilator 01/18/19 01/18/19 01/18/19 01/18/19 00:00 00:02 01:00 01:27 Temp 97.2 97.2 Pulse 68 74 Resp 24 24 B/P (MAP) 106/39 (61) 132/48 (76) Pulse Ox 88 91 91 91 O2 Delivery Ventilator Ventilator Ventilator Ventilator 01/18/19 01/18/19 01/18/19 01/18/19 02:00 03:00 03:37 04:00 Temp 97.2 97.2 Pulse 73 70 70 Resp 24 24 24 B/P (MAP) 126/44 (71) 112/56 (74) 114/56 (75) Pulse Ox 91 93 93 90 O2 Delivery Ventilator Ventilator Ventilator Ventilator 01/18/19 01/18/19 01/18/19 01/18/19 04:00 05:00 05:06 06:00 Pulse 96 100 Resp 24 24 B/P (MAP) 119/60 (79) 121/51 (74) Pulse Ox 90 90 85 O2 Delivery Mechanical Ventilator Ventilator Ventilator Ventilator 01/18/19 01/18/19 01/18/19 01/18/19 07:00 08:00 08:00 09:00 Temp 95.0 95.0 Pulse 104 96 67 Resp 24 24 24 B/P (MAP) 114/48 (70) 106/52 (70) 111/45 (67) Pulse Ox 85 85 87 O2 Delivery Ventilator Ventilator Mechanical Ventilator Ventilator 01/18/19 01/18/19 01/18/19 01/18/19 10:00 10:11 10:41 11:00 Pulse 70 73 Resp 24 24 B/P (MAP) 104/46 (65) 95/41 (59) Pulse Ox 86 87 87 85 O2 Delivery Ventilator Ventilator O2 Flow Rate 2.0 2.0 01/18/19 01/18/19 12:00 12:00 Temp 95.2 95.2 Pulse 82 Resp 24 B/P (MAP) 106/43 (64) Pulse Ox 85 O2 Delivery Mechanical Ventilator Ventilator Intake and Output 01/17/19 01/17/19 01/18/19 15:00 23:00 07:00 Intake Total 200 ml 1752.5 ml 666 ml Output Total 0 ml 3 ml 0 ml Balance 200 ml 1749.5 ml 666 ml Problem List Problems Medical Problems: (1) Acute hepatic encephalopathy Status: Acute (2) Acute upper GI bleed Status: Acute (3) Ascites Status: Acute (4) Hypokalemia Status: Acute (5) Multiple organ system failure Status: Acute (6) Severe sepsis with acute organ dysfunction Status: Acute Assessment Respiratory failure/ARDS; low O2 on 100% FIO2. 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 Renal failure. Thrombocytopenia--DIC? Labs regarding this pending. Plan of Care: Continue current Tx, Mgmt Plan of Care Note Await pending data. ANA MCKEON MD Jan 18, 2019 12:42
[2019-01-18] MEDS: TPN PER PHARMACY MC PRN (12:50)
[2019-01-18] MEDS: MEROPENEM 500 MG in IV NORMAL SALINE 50ML 50 ML IV SCH ×2 (13:18→13:41)
[2019-01-18 14:36] LABS: CALCIUM 6.9 mg/dL (8.5-10.1); CREATININE 1.4 mg/dL (0.7-1.3); GFR 56.7; MAGNESIUM 2.3 mg/dL (1.8-2.4); PHOSPHORUS 2.8 mg/dL (2.6-4.7); POTASSIUM 4.1 mmol/L (3.5-5.1)
--- NOTE | 2019-01-18 16:11 | NUR ---
Pharmacy TPN Dosing Note S: ULI CARRIZALES is a 38 year old M Currently receiving Central Continuous TPN started 01/13/19 B:Pertinent PMH: Ileus, high residuals with tube feeding Height: 5 feet, 7 inches Weight: 109.483714 kg Current diet: LABS: Sodium: 140 Potassium: 4.1 Chloride: 102 Calcium: 7.2 Corrected Calcium: 8.00 Magnesium: 2.3 CO2: 21 SCr: 1.5 Glucose: 150 Albumin: 3.0 AST: 232 ALT: 81 TPN FORMULA: TPN TYPE: Central Continuous AMINO ACIDS: 100 gm DEXTROSE: 225 gm LIPIDS: 20 gm SODIUM CHLORIDE: 80 mEq SODIUM ACETATE: - mEq SODIUM PHOSPHATE: - mmol POTASSIUM CHLORIDE: - mEq POTASSIUM ACETATE: - mEq POTASSIUM PHOSPHATE: - mmol MAGNESIUM: - mEq CALCIUM: 10 mEq INSULIN: units MULTIPLE VITAMIN: 10 ml TRACE ELEMENTS: 1 ml(s) TPN PLAN: NO CHANGES IN TPN R: Continue TPN AT 63ML/HR Will monitor electrolytes, glucose, and tolerance to TPN. ANT VYAS [facility], 01/18/19 [id number]
[2019-01-18] MEDS ORDERED: methylPREDNISolone SOD SUCC PF 125 MG/2 ML VIAL. ONE (16:26)
[2019-01-18] MEDS ORDERED: methylPREDNISolone SOD SUCC PF 125 MG/2 ML VIAL. IV ONE (16:30)
--- NOTE | 2019-01-18 16:59 | NUR ---
Pt has gradually deteriorated throughout shift- evidence by inability to keep 02 sat above 80% on 100% fi02 and 14 PEEP, all other VSS, on levophed, vasopressin drip, receiving CRRT. Copious secretions from ETT, with no improvement in sat with suction. Pt maintained 02 sat around 85% until around 1300- sat started to drop into the 70s- with no improvement despite multiple interventions. Dr Pandey, soccer player, aware of oxygen saturations- no vent setting changes. Around 1500 pt started more rapidly deteriorating. 02 sats dropped to 70s and steadily declining, still 14 PEEP and 100%. - CRRT machine filter clotting off. Dialysis nurse Ophelia notified, blood returned to patient and treatment stopped. Dialysis nurse coming to re-string patient. 1600- pt became extremely bradycardic, HR in 40s with EKG rhythm changes noted. 02 sat 60%. 1 amp of epi, 1 amp of bicarb given with improvement in HR to 100s, [address] Pandey paged- notified of pt status, orders received to increase PEEP to 17 to see if any improvement. Dr. Whitlock paged- onto unit to see pt. Orders received to give [address] Whitlock at bedside talking to family- full code status. Pt currently in room, family at bedside- aware of pt status. Current vitals: HR 100, BP 91/52, 02 sat 57%, still 100% and 17 PEEP. Awaiting dialysis nurse to come re-string patient for CRRT.
--- NOTE | 2019-01-18 17:46 | NUR ---
Danielle nurse here restringing CRRT.
[2019-01-18] MEDS: NOREPINEPHRIN 8MG/250ML PREMIX 250 ML IV PRN (17:55)
[2019-01-18] MEDS ORDERED: TOTAL PARENTERAL NUTRITION IV SCH ×8 (22:00)
[2019-01-18] MEDS ORDERED: DEXTROSE 70% IV SCH ×8 (22:00)
[2019-01-18] MEDS ORDERED: [UNRECOGNIZED DRUG - OTHER] IV SCH ×8 (22:00)
[2019-01-18] MEDS ORDERED: AMINO ACID IV SCH ×8 (22:00)
[2019-01-18 22:13] LABS: CALCIUM 6.9 mg/dL (8.5-10.1); CREATININE 1.4 mg/dL (0.7-1.3); GFR 56.7; MAGNESIUM 4.8 mg/dL (1.8-2.4)
[2019-01-18] MEDS: DEXTROSE 50% 25 GM / 50ML DISP.SYRIN. IV PRN (22:35)
[2019-01-19] VITALS (27 sets, daily range): BP systolic 91–141; BP diastolic 39–69
[2019-01-19] MEDS: VASOPRESSIN 40 UNIT in IV DEXTROSE 5% 100ML 100 ML IV PRN (02:07)
[2019-01-19] MEDS: DEXMEDETOMIDINE 400 MCG in IV NORMAL SALINE 100ML 96 ML IV PRN ×5 (02:07→20:24)
[2019-01-19] MEDS: POTASSIUM CHLORIDE IV SCH ×36 (03:20→21:55)
[2019-01-19] MEDS: CALCIUM CHLORIDE IV SCH ×36 (03:20→21:55)
[2019-01-19] MEDS: MAGNESIUM SULFATE IV SCH ×15 (03:20→05:16)
[2019-01-19] MEDS: [UNRECOGNIZED DRUG - OTHER] IV SCH ×15 (03:20→05:16)
[2019-01-19 05:11] LABS: HEMATOCRIT 23.6 % (39.0-53.0); HEMOGLOBIN 7.7 g/dL (13.0-17.5); RED BLOOD COUNT 2.36 x10^6/uL (4.30-5.70); RED CELL DISTRIBUTION WIDTH 21.5 % (11.5-14.5); WHITE BLOOD COUNT 18.9 x10^3/uL (4.0-11.0)
[2019-01-19 05:14] LABS: PROTHROMBIN TIME PATIENT 23.7 SEC (11.7-14.0)
[2019-01-19] MEDS: MEROPENEM 500 MG in IV NORMAL SALINE 50ML 50 ML IV SCH (06:02)
[2019-01-19] MEDS: ALBUMIN HUMAN 25% 100 ML IV SCH ×3 (06:02→17:24)
[2019-01-19 06:08] LABS: CALCIUM 7.3 mg/dL (8.5-10.1); CREATININE 1.4 mg/dL (0.7-1.3); GFR 56.7; MAGNESIUM 4.7 mg/dL (1.8-2.4); PHOSPHORUS 3.9 mg/dL (2.6-4.7); POTASSIUM 5.3 mmol/L (3.5-5.1)
[2019-01-19] MEDS: NOREPINEPHRIN 8MG/250ML PREMIX 250 ML IV PRN (06:31)
[2019-01-19 07:18] LABS: BASO # 0.1 x10^3/uL (0.0-0.2); BASO % 1 % (0-3); EOS # 0.1 x10^3/uL (0.0-0.7); EOS % 1 % (0-3); HEMATOCRIT 23.7 % (39.0-53.0); HEMOGLOBIN 7.6 g/dL (13.0-17.5); LYMPH # 1.4 x10^3/uL (1.0-4.8); LYMPH % 8 % (24-48); MEAN CORPUSCULAR HEMOGLOBIN 33 pg (25-35); MEAN CORPUSCULAR HGB CONC 32 g/dL (31-37); MEAN CORPUSCULAR VOLUME 101 fL (79-100); MONO # 0.6 x10^3/uL (0.0-1.1); MONO % 3 % (0-9); NEUT # 16.2 x10^3/uL (1.8-7.7); NEUT % 88 % (31-73); PLATELET COUNT 37 x10^3/uL (140-400); RED BLOOD COUNT 2.35 x10^6/uL (4.30-5.70); RED CELL DISTRIBUTION WIDTH 21.8 % (11.5-14.5); WHITE BLOOD COUNT 18.4 x10^3/uL (4.0-11.0)
[2019-01-19] MEDS: PANTOPRAZOLE IV PUSH 40 MG VIAL. IVP SCH (07:44)
[2019-01-19] MEDS: INSULIN LISPRO 300 UNITS/3 ML VIAL. SQ SCH ×3 (08:02→17:21)
[2019-01-19] MEDS: [UNRECOGNIZED DRUG - OTHER] IV SCH ×21 (08:23→21:55)
[2019-01-19] MEDS: SODIUM BICARBONATE IV SCH ×21 (08:23→21:55)
[2019-01-19] MEDS: LACTULOSE 20 GM/30 ML SOLUTION. PO SCH ×3 (08:34→20:55)
[2019-01-19 08:46] LABS: ALBUMIN 3.7 g/dL (3.4-5.0); ALBUMIN/GLOBULIN RATIO 1.3 (1.0-1.7); CALCIUM 7.1 mg/dL (8.5-10.1); CREATININE 1.3 mg/dL (0.7-1.3); GFR 61.8; POTASSIUM 4.8 mmol/L (3.5-5.1); TOTAL BILIRUBIN 15.2 mg/dL (0.2-1.0); TOTAL PROTEIN 6.5 g/dL (6.4-8.2)
[2019-01-19] MEDS: IV NORMAL SALINE 1000ML BAG 1,000 ML IV SCH (08:54)
--- NOTE | 2019-01-19 08:55 | PDOC ---
Infectious Disease Note Subjective: Subjective Sedated Remains orally intubated, on FiO2 100% PEEP 17 Hypotensive, on low dose levophed No fevers TPN and mother at bedside, ROS: ROS unable to obtain Vital Signs: Vital Signs Vital Signs Date Time Temp Pulse Resp B/P (MAP) Pulse Ox O2 Delivery O2 Flow Rate FiO2 01/19/19 08:34 99 2.0 01/19/19 08:00 96.9 104 24 119/65 (83) Ventilator 96.9 Physical Exam: PHYSICAL EXAM GENERAL: Orally intubated and sedated, CRRT HEENT: Icteric, Pupils equal, ETT and OGT LUNGS: Right-sided rhonchi HEART: S1 S2 regular ABDOMEN: Obese, soft, hypoactive BS : - Pollard EXTREMITIES:gen edema, LLE ecchymosis. SKIN: Warm to touch. No rash NEUROLOGIC: Sedated RIJ and Temp RIJ/HDC (01/13) clean PIV Medications: Inpatient Meds: Current Medications Medications (Trade) Dose Ordered Sig/Quyen Start Time Stop Time Status Last Admin Dose Admin Acetaminophen (Tylenol Supp) 650 mg PRN Q6HRS PRN 01/08/19 18:15 01/09/19 23:44 650 MG Acetaminophen (Tylenol) 650 mg PRN Q6HRS PRN 01/12/19 16:30 01/14/19 09:11 650 MG Albumin Human 100 ml @ 100 mls/hr Q6HRS 01/15/19 14:00 01/19/19 06:02 100 MLS/HR Artificial Tears (Artificial Tears) 1 drop Q4H PRN 01/14/19 15:30 01/14/19 16:43 1 DROP Benzocaine (Hurricaine One) 2 spray STK-MED ONCE 01/07/19 12:00 01/08/19 14:20 DC Bisacodyl (Dulcolax Supp) 10 mg 1X ONCE 01/13/19 11:00 01/13/19 11:01 DC 01/13/19 10:14 10 MG Calcium Chloride 12.5 meq/ Magnesium Sulfate 2.5 meq/Potassium Chloride 10 meq/ Sodium Bicarbonate 40 meq/Bicarbonate Dialysis Soln w/ out KCl 5,054.5443 ml @ 500 mls/hr Q10H7M 01/18/19 18:00 01/19/19 07:48 DC 01/19/19 05:16 500 MLS/HR Calcium Chloride 12.5 meq/ Potassium Chloride 5 meq/ Sodium Bicarbonate 40 meq/Bicarbonate Dialysis Soln w/ out KCl 5,051.4286 ml @ 500 mls/hr Q10H7M 01/19/19 15:00 Clonidine HCl (Catapres) 0.1 mg PRN Q1HR PRN 01/08/19 07:15 Daptomycin 500 mg/ Sodium Chloride 50 ml @ 100 mls/hr Q48H 01/16/19 09:00 01/18/19 09:11 100 MLS/HR Darbepoetin Giorgi (ARANESP for DIALYSIS PTS) 60 mcg WEEKLYHS 01/13/19 21:00 01/13/19 20:46 60 MCG Dexmedetomidine HCl 400 mcg/ Sodium Chloride 100 ml @ 0 mls/hr CONT PRN 01/14/19 11:30 01/19/19 02:07 13.3 MLS/HR Dextrose (Dextrose 50%-Water Syringe) 12.5 gm PRN Q15MIN PRN 01/09/19 10:30 01/18/19 22:35 25 GM Diphenhydramine HCl (Benadryl) 25 mg PRN Q15MIN PRN 01/08/19 07:15 Docusate Sodium (Enemeez) 283 mg 1X ONCE 01/13/19 16:45 01/13/19 16:47 DC 01/13/19 17:14 283 MG Epinephrine HCl 4 mg/Sodium Chloride 254 ml @ 41.822 mls/ hr CONT PRN 01/18/19 16:15 Fentanyl Citrate (Fentanyl 2ml Vial) 100 mcg 1X ONCE 01/08/19 09:45 01/08/19 09:46 DC 01/08/19 09:42 100 MCG Fentanyl Citrate (Fentanyl 600 Mcg/30 ml PENSION ADMINISTRATOR) 600 mcg STK-MED ONCE 01/08/19 15:25 01/09/19 10:27 DC Haloperidol Lactate (Haldol Inj) 5 mg PRN Q4HRS PRN 01/08/19 07:15 Heparin Sodium (Porcine) (Heparin Sodium) 10,000 unit STK-MED ONCE 01/13/19 10:59 01/13/19 11:00 DC Info (PHARMACY MONITORING -- do not chart) 1 each PRN DAILY PRN 01/15/19 10:00 01/15/19 10:57 DC Info (Tpn Per Pharmacy) 1 each PRN DAILY PRN 01/13/19 11:15 01/18/19 12:50 1 EACH Insulin Human Lispro (HumaLOG) 0-9 UNITS TIDWMEALS 01/09/19 12:00 01/19/19 08:02 4 UNITS Lactobacillus Rhamnosus (Culturelle) 1 cap BID 01/08/19 21:00 01/09/19 09:29 DC Lactulose (LACTULOSE 300ML for RECTAL) 200 gm Q6HRS 01/09/19 12:00 01/09/19 11:04 DC Lactulose (Lactulose) 20 gm TID 01/13/19 10:00 01/14/19 21:01 20 GM Levofloxacin/ Dextrose 100 ml @ 100 mls/hr Q24H 01/14/19 09:00 01/19/19 08:14 100 MLS/HR Lidocaine HCl (Buffered Lidocaine 1%) 3 ml 1X ONCE 01/13/19 11:00 01/13/19 11:01 DC 01/13/19 11:00 3 ML Lidocaine HCl (Xylocaine 2% Topical 5gm Tube) 5 amanda STK-MED ONCE 01/07/19 12:00 01/08/19 14:20 DC Linezolid/Dextrose 300 ml @ 300 mls/hr Q12HR 01/11/19 13:00 01/16/19 08:29 DC 01/16/19 08:26 300 MLS/HR Lorazepam (Ativan Inj) 4 mg PRN Q1HR PRN 01/08/19 07:15 01/15/19 08:40 4 MG Meropenem 500 mg/ Sodium Chloride 50 ml @ 100 mls/hr Q8HRS 01/18/19 14:00 01/19/19 06:02 100 MLS/HR Methylprednisolone Sodium Succinate (SOLU-Medrol 125MG VIAL) 125 mg STK-MED ONCE 01/18/19 16:26 01/18/19 16:26 DC Metoclopramide HCl (Reglan Vial) 5 mg 1X ONCE 01/14/19 10:30 01/14/19 10:31 DC 01/14/19 10:51 5 MG Midazolam HCl 100 ml @ 5 mls/hr CONT PRN 01/08/19 11:15 12/19 18:17 6 MLS/HR Midazolam HCl (Versed) 5 mg 1X ONCE 01/08/19 09:45 01/08/19 09:46 DC 01/08/19 09:41 5 MG Morphine Sulfate (Morphine Sulfate) 2 mg PRN Q2HR PRN 01/08/19 09:15 Multi-Ingred Cream/Lotion/Oil/ Oint (Artificial Tears Eye Ointment) 1 amanda PRN Q1HR PRN 01/13/19 16:45 01/13/19 17:14 1 AMANDA Multivitamins 10 ml/Thiamine HCl 100 mg/Folic Acid 1 mg/Sodium Chloride 1,011.2 ml @ 100 mls/ hr DAILY 01/08/19 09:00 01/12/19 19:07 DC 01/12/19 10:29 100 MLS/HR Naloxone HCl (Narcan) 0.4 mg PRN Q2MIN PRN 01/08/19 09:00 Norepinephrine Bitartrate 250 ml @ 18.938 mls/ hr CONT PRN 01/09/19 01:45 01/19/19 06:31 28.406 MLS/HR Octreotide Acetate 500 mcg/ Sodium Chloride 101 ml @ 0 mls/hr CONT PRN 01/08/19 09:00 01/08/19 16:55 DC 01/08/19 13:56 10.1 MLS/HR Ondansetron HCl (Zofran) 4 mg PRN Q6HRS PRN 01/08/19 09:15 Pantoprazole Sodium (PROTONIX VIAL for IV PUSH) 40 mg DAILYAC 01/10/19 07:30 01/19/19 07:44 40 MG Pantoprazole Sodium 80 mg/ Sodium Chloride 100 ml @ 10 mls/hr Q10H 01/08/19 06:00 01/09/19 11:00 DC 01/09/19 02:00 10 MLS/HR Perflutren Protein Type A Microsphe (Optison) 0.66 mg 1X ONCE 01/11/19 13:30 01/11/19 13:31 DC Phytonadione (Vitamin K Ampule) 10 mg 1X ONCE 01/08/19 09:15 01/08/19 09:16 DC 01/08/19 09:56 10 MG Piperacillin Sod/ Tazobactam Sod (Zosyn Per Pharmacy) 1 each PRN DAILY PRN 01/07/19 21:00 01/18/19 12:16 DC Piperacillin Sod/ Tazobactam Sod 3.375 gm/Sodium Chloride 50 ml @ 100 mls/hr Q6HRS 01/07/19 22:00 01/18/19 12:16 DC 01/18/19 05:54 100 MLS/HR Potassium Bicarbonate (Potassium Effervescent Tablet) 40 meq BIDWMEALS 01/10/19 09:00 01/11/19 09:20 DC 01/10/19 17:49 40 MEQ Potassium Chloride 20 meq/ Bicarbonate Dialysis Soln w/ out KCl 5,010 ml @ 1,200 mls/hr Q4H11M 01/15/19 19:00 01/17/19 15:00 DC 01/17/19 00:17 1,200 MLS/HR Potassium Chloride 20 meq/ Sodium Bicarbonate 40 meq/Bicarbonate Dialysis Soln w/ out KCl 5,050 ml @ 1,200 mls/hr Q4H13M 01/17/19 15:00 01/18/19 09:51 DC 01/18/19 06:01 1,200 MLS/HR Potassium Chloride/Sodium Chloride 1,000 ml @ 75 mls/hr 1X ONCE 01/07/19 21:30 01/08/19 10:49 DC 01/07/19 21:16 75 MLS/HR Potassium Phosphate 20 mmol/ Sodium Chloride 256.6667 ml @ 128.... ONCE ONCE 01/17/19 17:45 01/17/19 19:44 DC 01/17/19 18:21 128.333 MLS/HR Potassium Chloride (Klor-Con) 40 meq 1X ONCE 01/09/19 09:45 01/09/19 09:46 DC 01/09/19 11:34 40 MEQ Propofol 100 ml @ 1.524 mls/ hr CONT PRN 01/08/19 09:45 01/14/19 03:56 9.147 MLS/HR Sodium Acetate 40 meq/Potassium Acetate 30 meq/ Calcium Gluconate 10 meq/ Multivitamins 10 ml/Chromium/ Copper/Manganese/ Seleni/Zn 1 ml/ Total Parenteral Nutrition/Amino Acids/Dextrose/ Fat Emulsion Intravenous 1,512 ml @ 63 mls/hr TPN CONT 01/13/19 22:00 01/14/19 21:59 DC 01/13/19 21:54 63 MLS/HR Sodium Bicarbonate (Sodium Bicarb Adult 8.4% Syr) 100 meq 1X ONCE 01/15/19 08:30 01/15/19 08:31 DC 01/15/19 08:31 100 MEQ Sodium Chloride 30 meq/Sodium Acetate 40 meq/ Potassium Acetate 30 meq/Calcium Gluconate 10 meq/ Multivitamins 10 ml/Chromium/ Copper/Manganese/ Seleni/Zn 1 ml/ Total Parenteral Nutrition/Amino Acids/Dextrose/ Fat Emulsion Intravenous 1,512 ml @ 63 mls/hr TPN CONT 01/14/19 22:00 01/15/19 21:59 DC 01/15/19 00:05 63 MLS/HR Sodium Chloride 40 meq/Sodium Acetate 40 meq/ Calcium Gluconate 10 meq/ Multivitamins 10 ml/Chromium/ Copper/Manganese/ Seleni/Zn 1 ml/ Thiamine HCl 100 mg/Total Parenteral Nutrition/Amino Acids/Dextrose/ Fat Emulsion Intravenous 1,512 ml @ 63 mls/hr TPN CONT 01/15/19 22:00 01/16/19 21:59 DC 01/15/19 21:45 63 MLS/HR Sodium Chloride 40 meq/Sodium Acetate 40 meq/ Potassium Acetate 10 meq/Calcium Gluconate 10 meq/ Multivitamins 10 ml/Chromium/ Copper/Manganese/ Seleni/Zn 1 ml/ Thiamine HCl 100 mg/Total Parenteral Nutrition/Amino Acids/Dextrose/ Fat Emulsion Intravenous 1,512 ml @ 63 mls/hr TPN CONT 01/15/19 22:00 01/15/19 14:18 DC Sodium Chloride 40 meq/Sodium Acetate 40 meq/ Potassium Acetate 10 meq/Calcium Gluconate 10 meq/ Multivitamins 10 ml/Chromium/ Copper/Manganese/ Seleni/Zn 1 ml/ Total Parenteral Nutrition/Amino Acids/Dextrose/ Fat Emulsion Intravenous 1,512 ml @ 63 mls/hr TPN CONT 01/15/19 22:00 01/15/19 11:06 DC Sodium Chloride 60 meq/Sodium Acetate 40 meq/ Calcium Gluconate 10 meq/ Multivitamins 10 ml/Chromium/ Copper/Manganese/ Seleni/Zn 1 ml/ Thiamine HCl 100 mg/Total Parenteral Nutrition/Amino Acids/Dextrose/ Fat Emulsion Intravenous 1,512 ml @ 63 mls/hr TPN CONT 01/16/19 22:00 01/18/19 10:50 DC 01/16/19 22:00 63 MLS/HR Sodium Chloride 80 meq/Calcium Gluconate 10 meq/ Multivitamins 10 ml/Chromium/ Copper/Manganese/ Seleni/Zn 1 ml/ Thiamine HCl 100 mg/Total Parenteral Nutrition/Amino Acids/Dextrose/ Fat Emulsion Intravenous 1,512 ml @ 63 mls/hr TPN CONT 01/18/19 22:00 01/19/19 21:59 01/18/19 21:37 63 MLS/HR Succinylcholine Chloride (Anectine) 200 mg 1X ONCE 01/08/19 09:45 01/08/19 09:46 DC 01/08/19 09:41 200 MG Tramadol HCl (Ultram) 50 mg PRN Q6HRS PRN 01/08/19 09:15 Vancomycin HCl (Vanco Per Pharmacy) 1 each PRN DAILY PRN 01/07/19 21:00 01/08/19 06:39 DC 01/08/19 00:43 1 EACH Vancomycin HCl (Vancomycin Trough Level) 1 each 1X ONCE 01/09/19 09:30 01/09/19 09:31 Cancel Vancomycin HCl 1.5 gm/Sodium Chloride 500 ml @ 250 mls/hr Q12H 01/08/19 10:00 01/08/19 06:39 DC Vancomycin HCl 2 gm/Sodium Chloride 500 ml @ 250 mls/hr 1X ONCE 01/07/19 22:00 01/07/19 23:59 DC 01/07/19 22:11 250 MLS/HR Vasopressin 40 unit/Dextrose 102 ml @ 6 mls/hr CONT PRN 01/15/19 10:00 01/19/19 02:07 6 MLS/HR Vecuronium [place] (Norcuron Bolus) 6 mg PRN Q4HRS PRN 01/08/19 12:00 01/18/19 11:14 6 MG Labs: Lab Laboratory Tests Test 01/18/19 08:45 01/18/19 08:50 01/18/19 14:00 01/18/19 21:45 O2 Saturation 78 % (92-99) Arterial Blood pH 7.30 (7.35-7.45) Arterial Blood pCO2 at Patient Temp 41 mmHg (35-46) Arterial Blood pO2 at Patient Temp 50 mmHg (85-108) Arterial Blood HCO3 20 mmol/L (21-28) Arterial Blood Base Excess -6 mmol/L (-3-3) FiO2 100 Fibrinogen 145 mg/dL (200-440) Sodium Level 142 mmol/L (136-145) 142 mmol/L (136-145) Potassium Level 4.1 mmol/L (3.5-5.1) 5.0 mmol/L (3.5-5.1) Chloride Level 103 mmol/L (98-107) 102 mmol/L (98-107) Carbon Dioxide Level 23 mmol/L (21-32) 19 mmol/L (21-32) Anion Gap 16 (6-14) 21 (6-14) Blood Urea Nitrogen 30 mg/dL (8-26) 28 mg/dL (8-26) Creatinine 1.4 mg/dL (0.7-1.3) 1.4 mg/dL (0.7-1.3) Estimated GFR (Cockcroft-Gault) 56.7 56.7 Glucose Level 156 mg/dL (70-99) 37 mg/dL (70-99) Calcium Level 6.9 mg/dL (8.5-10.1) 6.9 mg/dL (8.5-10.1) Phosphorus Level 2.8 mg/dL (2.6-4.7) 5.0 mg/dL (2.6-4.7) Magnesium Level 2.3 mg/dL (1.8-2.4) 4.8 mg/dL (1.8-2.4) Test 01/18/19 22:43 01/18/19 23:29 01/19/19 04:30 Glucose (Fingerstick) 126 mg/dL (70-99) 103 mg/dL (70-99) White Blood Count 18.9 x10^3/uL (4.0-11.0) Red Blood Count 2.36 x10^6/uL (4.30-5.70) Hemoglobin 7.7 g/dL (13.0-17.5) Hematocrit 23.6 % (39.0-53.0) Mean Corpuscular Volume 100 fL (79-100) Mean Corpuscular Hemoglobin 33 pg (25-35) Mean Corpuscular Hemoglobin Concent 32 g/dL (31-37) Red Cell Distribution Width 21.5 % (11.5-14.5) Platelet Count 37 x10^3/uL (140-400) Neutrophils (%) (Auto) 88 % (31-73) Lymphocytes (%) (Auto) 8 % (24-48) Monocytes (%) (Auto) 3 % (0-9) Eosinophils (%) (Auto) 1 % (0-3) Basophils (%) (Auto) 1 % (0-3) Neutrophils # (Auto) 16.2 x10^3/uL (1.8-7.7) Lymphocytes # (Auto) 1.4 x10^3/uL (1.0-4.8) Monocytes # (Auto) 0.6 x10^3/uL (0.0-1.1) Eosinophils # (Auto) 0.1 x10^3/uL (0.0-0.7) Basophils # (Auto) 0.1 x10^3/uL (0.0-0.2) Prothrombin Time 23.7 SEC (11.7-14.0) Prothromb Time International Ratio 2.1 (0.8-1.1) Sodium Level 141 mmol/L (136-145) Potassium Level 5.3 mmol/L (3.5-5.1) Chloride Level 102 mmol/L (98-107) Carbon Dioxide Level 22 mmol/L (21-32) Anion Gap 17 (6-14) Blood Urea Nitrogen 28 mg/dL (8-26) Creatinine 1.4 mg/dL (0.7-1.3) Estimated GFR (Cockcroft-Gault) 56.7 Glucose Level 166 mg/dL (70-99) Calcium Level 7.3 mg/dL (8.5-10.1) Phosphorus Level 3.9 mg/dL (2.6-4.7) Magnesium Level 4.7 mg/dL (1.8-2.4) Albumin 3.6 g/dL (3.4-5.0) Triglycerides Level 167 mg/dL (0-150) Objective: Assessment: Hypotension on pressors Fever - curve improving ? ID vs PRBCs vs reactive vs Withdrawl - improved , uc neg, bc neg, sputum neg Leukocytosis - ? reactive, improved Thrombocytopenia ,coagulopathy Lactic acidosis Resp failure s/p intubation. + mycoplasma (01/14) DOMONIQUE on CRRT GI Bleed - s/p EGD 01/08 - Reflux esophagitis. ? recent M-W tear. Alcoholic gastritis. Anemia Liver cirrhosis with small ascites.Hyperbilirubinemia Alcoholic hepatitis - Hep C Ab positive, PCR negative. GI following ? pancreatitis. Lipase improved Rhabdo CK 965 Heavy ETOH abuse Left leg ecchymosis Pyuria UC negative Plan: Plan of Care Dapto, Zosyn. and Levaquin, renally adjusted.Pharmacy assisting f/u cultures Supportive care D/w nursing D/W and mother Critically ill Prognosis poor DAVID ALEXIS MD Jan 19, 2019 08:55
--- NOTE | 2019-01-19 09:19 | NUR ---
Critical lactic acid received, 9.3. Orders from Anne Domínguez that critical lactics do not need to be called. Will continue POC.
[2019-01-19] MEDS: MIDAZOLAM 100mg/100ml NS BAG 100 ML IV PRN ×2 (09:37→23:11)
--- NOTE | 2019-01-19 09:50 | PDOC ---
SUBJECTIVE ROS Intubated, sedated Remains orally intubated, on FiO2 100% PEEP 17 Hypotensive, on low dose levophed OBJECTIVE Vital Signs Vital Signs Date Time Temp Pulse Resp B/P (MAP) Pulse Ox O2 Delivery O2 Flow Rate FiO2 01/19/19 09:04 100 2.0 01/19/19 09:00 120 24 120/56 (77) Ventilator 01/19/19 08:00 96.9 96.9 I & 0 Intake and Output 01/19/19 07:00 Intake Total 4571.1 ml Output Total 1350 ml Balance 3221.1 ml IV Total 2951.1 ml Blood Product 1300 ml Blood Product IV Normal Saline Flush 60 ml Other 260 ml Output Urine Total 5 ml Other 1345 ml PHYSICAL EXAM Physical Exam GENERAL: Orally intubated and sedated, CRRT HEENT: Icteric, Pupils equal, ETT and OGT LUNGS: Right-sided rhonchi HEART: S1 S2 regular ABDOMEN: Obese, soft, hypoactive BS : - Pollard EXTREMITIES:gen edema, LLE ecchymosis. SKIN: Warm to touch. No rash NEUROLOGIC: Sedated RIJ and Temp RIJ/HDC (01/13) clean PIV DIAGNOSIS/ASSESSMENT Assessment & Plan DOMONIQUE/ ATN: DOMONIQUE had improved initially, developed DOMONIQUE again - Anuric - started on CRRT Discussed with RN Supportive care, Avoid Nephrotoxins, Monitor Hypotension - on pressors Thrombocytopenia -Coagulopathy Resp failure s/p intubation. + mycoplasma (01/14) GI Bleed - s/p EGD 01/08 - Reflux esophagitis. ? recent M-W tear. Alcoholic gastritis. Anemia Cirrhosis /Alcoholic hepatitis - Hep C Ab positive, GI following Heavy ETOH abuse D/w nursing , and mother Critically ill COMMENT/RELEVANT DATA Meds Current Medications Medications (Trade) Dose Ordered Sig/Quyen Start Time Stop Time Status Last Admin Dose Admin Acetaminophen (Tylenol Supp) 650 mg PRN Q6HRS PRN 01/08/19 18:15 01/09/19 23:44 650 MG Acetaminophen (Tylenol) 650 mg PRN Q6HRS PRN 01/12/19 16:30 01/14/19 09:11 650 MG Albumin Human 100 ml @ 100 mls/hr Q6HRS 01/15/19 14:00 01/19/19 06:02 100 MLS/HR Artificial Tears (Artificial Tears) 1 drop Q4H PRN 01/14/19 15:30 01/14/19 16:43 1 DROP Benzocaine (Hurricaine One) 2 spray STK-MED ONCE 01/07/19 12:00 01/08/19 14:20 DC Bisacodyl (Dulcolax Supp) 10 mg 1X ONCE 01/13/19 11:00 01/13/19 11:01 DC 01/13/19 10:14 10 MG Calcium Chloride 12.5 meq/ Magnesium Sulfate 2.5 meq/Potassium Chloride 10 meq/ Sodium Bicarbonate 40 meq/Bicarbonate Dialysis Soln w/ out KCl 5,054.5443 ml @ 500 mls/hr Q10H7M 01/18/19 18:00 01/19/19 07:48 DC 01/19/19 05:16 500 MLS/HR Calcium Chloride 12.5 meq/ Potassium Chloride 5 meq/ Sodium Bicarbonate 40 meq/Bicarbonate Dialysis Soln w/ out KCl 5,051.4286 ml @ 500 mls/hr Q10H7M 01/19/19 15:00 Clonidine HCl (Catapres) 0.1 mg PRN Q1HR PRN 01/08/19 07:15 Daptomycin 500 mg/ Sodium Chloride 50 ml @ 100 mls/hr Q48H 01/16/19 09:00 01/18/19 09:11 100 MLS/HR Darbepoetin Giorgi (ARANESP for DIALYSIS PTS) 60 mcg WEEKLYHS 01/13/19 21:00 01/13/19 20:46 60 MCG Dexmedetomidine HCl 400 mcg/ Sodium Chloride 100 ml @ 0 mls/hr CONT PRN 01/14/19 11:30 01/19/19 09:36 13 MLS/HR Dextrose (Dextrose 50%-Water Syringe) 12.5 gm PRN Q15MIN PRN 01/09/19 10:30 01/18/19 22:35 25 GM Diphenhydramine HCl (Benadryl) 25 mg PRN Q15MIN PRN 01/08/19 07:15 Docusate Sodium (Enemeez) 283 mg 1X ONCE 01/13/19 16:45 01/13/19 16:47 DC 01/13/19 17:14 283 MG Epinephrine HCl 4 mg/Sodium Chloride 254 ml @ 41.822 mls/ hr CONT PRN 01/18/19 16:15 Fentanyl Citrate (Fentanyl 2ml Vial) 100 mcg 1X ONCE 01/08/19 09:45 01/08/19 09:46 DC 01/08/19 09:42 100 MCG Fentanyl Citrate (Fentanyl 600 Mcg/30 ml SUTURE WINDER HAND) 600 mcg STK-MED ONCE 01/08/19 15:25 01/09/19 10:27 DC Haloperidol Lactate (Haldol Inj) 5 mg PRN Q4HRS PRN 01/08/19 07:15 Heparin Sodium (Porcine) (Heparin Sodium) 10,000 unit STK-MED ONCE 01/13/19 10:59 01/13/19 11:00 DC Info (PHARMACY MONITORING -- do not chart) 1 each PRN DAILY PRN 01/15/19 10:00 01/15/19 10:57 DC Info (Tpn Per Pharmacy) 1 each PRN DAILY PRN 01/13/19 11:15 01/18/19 12:50 1 EACH Insulin Human Lispro (HumaLOG) 0-9 UNITS TIDWMEALS 01/09/19 12:00 01/19/19 08:02 4 UNITS Lactobacillus Rhamnosus (Culturelle) 1 cap BID 01/08/19 21:00 01/09/19 09:29 DC Lactulose (LACTULOSE 300ML for RECTAL) 200 gm Q6HRS 01/09/19 12:00 01/09/19 11:04 DC Lactulose (Lactulose) 20 gm TID 01/13/19 10:00 01/14/19 21:01 20 GM Levofloxacin/ Dextrose 100 ml @ 100 mls/hr Q24H 01/14/19 09:00 01/19/19 08:14 100 MLS/HR Lidocaine HCl (Buffered Lidocaine 1%) 3 ml 1X ONCE 01/13/19 11:00 01/13/19 11:01 DC 01/13/19 11:00 3 ML Lidocaine HCl (Xylocaine 2% Topical 5gm Tube) 5 amanda STK-MED ONCE 01/07/19 12:00 01/08/19 14:20 DC Linezolid/Dextrose 300 ml @ 300 mls/hr Q12HR 01/11/19 13:00 01/16/19 08:29 DC 01/16/19 08:26 300 MLS/HR Lorazepam (Ativan Inj) 4 mg PRN Q1HR PRN 01/08/19 07:15 01/15/19 08:40 4 MG Meropenem 1 gm/ Sodium Chloride 100 ml @ 200 mls/hr Q12H 01/19/19 14:00 Meropenem 500 mg/ Sodium Chloride 50 ml @ 100 mls/hr Q8HRS 01/18/19 14:00 01/19/19 09:24 DC 01/19/19 06:02 100 MLS/HR Methylprednisolone Sodium Succinate (SOLU-Medrol 125MG VIAL) 125 mg STK-MED ONCE 01/18/19 16:26 01/18/19 16:26 DC Metoclopramide HCl (Reglan Vial) 5 mg 1X ONCE 01/14/19 10:30 01/14/19 10:31 DC 01/14/19 10:51 5 MG Midazolam HCl 100 ml @ 5 mls/hr CONT PRN 01/08/19 11:15 01/19/19 09:37 6 MLS/HR Midazolam HCl (Versed) 5 mg 1X ONCE 01/08/19 09:45 01/08/19 09:46 DC 01/08/19 09:41 5 MG Morphine Sulfate (Morphine Sulfate) 2 mg PRN Q2HR PRN 01/08/19 09:15 Multi-Ingred Cream/Lotion/Oil/ Oint (Artificial Tears Eye Ointment) 1 amanda PRN Q1HR PRN 01/13/19 16:45 01/13/19 17:14 1 AMANDA Multivitamins 10 ml/Thiamine HCl 100 mg/Folic Acid 1 mg/Sodium Chloride 1,011.2 ml @ 100 mls/ hr DAILY 01/08/19 09:00 01/12/19 19:07 DC 01/12/19 10:29 100 MLS/HR Naloxone HCl (Narcan) 0.4 mg PRN Q2MIN PRN 01/08/19 09:00 Norepinephrine Bitartrate 250 ml @ 18.938 mls/ hr CONT PRN 01/09/19 01:45 01/19/19 06:31 28.406 MLS/HR Octreotide Acetate 500 mcg/ Sodium Chloride 101 ml @ 0 mls/hr CONT PRN 01/08/19 09:00 01/08/19 16:55 DC 01/08/19 13:56 10.1 MLS/HR Ondansetron HCl (Zofran) 4 mg PRN Q6HRS PRN 01/08/19 09:15 Pantoprazole Sodium (PROTONIX VIAL for IV PUSH) 40 mg DAILYAC 01/10/19 07:30 01/19/19 07:44 40 MG Pantoprazole Sodium 80 mg/ Sodium Chloride 100 ml @ 10 mls/hr Q10H 01/08/19 06:00 01/09/19 11:00 DC 01/09/19 02:00 10 MLS/HR Perflutren Protein Type A Microsphe (Optison) 0.66 mg 1X ONCE 01/11/19 13:30 01/11/19 13:31 DC Phytonadione (Vitamin K Ampule) 10 mg 1X ONCE 01/08/19 09:15 01/08/19 09:16 DC 01/08/19 09:56 10 MG Piperacillin Sod/ Tazobactam Sod (Zosyn Per Pharmacy) 1 each PRN DAILY PRN 01/07/19 21:00 01/18/19 12:16 DC Piperacillin Sod/ Tazobactam Sod 3.375 gm/Sodium Chloride 50 ml @ 100 mls/hr Q6HRS 01/07/19 22:00 01/18/19 12:16 DC 01/18/19 05:54 100 MLS/HR Potassium Bicarbonate (Potassium Effervescent Tablet) 40 meq BIDWMEALS 01/10/19 09:00 01/11/19 09:20 DC 01/10/19 17:49 40 MEQ Potassium Chloride 20 meq/ Bicarbonate Dialysis Soln w/ out KCl 5,010 ml @ 1,200 mls/hr Q4H11M 01/15/19 19:00 01/17/19 15:00 DC 01/17/19 00:17 1,200 MLS/HR Potassium Chloride 20 meq/ Sodium Bicarbonate 40 meq/Bicarbonate Dialysis Soln w/ out KCl 5,050 ml @ 1,200 mls/hr Q4H13M 01/17/19 15:00 01/18/19 09:51 DC 01/18/19 06:01 1,200 MLS/HR Potassium Chloride/Sodium Chloride 1,000 ml @ 75 mls/hr 1X ONCE 01/07/19 21:30 01/08/19 10:49 DC 01/07/19 21:16 75 MLS/HR Potassium Phosphate 20 mmol/ Sodium Chloride 256.6667 ml @ 128.... ONCE ONCE 01/17/19 17:45 01/17/19 19:44 DC 01/17/19 18:21 128.333 MLS/HR Potassium Chloride (Klor-Con) 40 meq 1X ONCE 01/09/19 09:45 01/09/19 09:46 DC 01/09/19 11:34 40 MEQ Propofol 100 ml @ 1.524 mls/ hr CONT PRN 01/08/19 09:45 01/14/19 03:56 9.147 MLS/HR Sodium Acetate 40 meq/Potassium Acetate 30 meq/ Calcium Gluconate 10 meq/ Multivitamins 10 ml/Chromium/ Copper/Manganese/ Seleni/Zn 1 ml/ Total Parenteral Nutrition/Amino Acids/Dextrose/ Fat Emulsion Intravenous 1,512 ml @ 63 mls/hr TPN CONT 01/13/19 22:00 01/14/19 21:59 DC 01/13/19 21:54 63 MLS/HR Sodium Bicarbonate (Sodium Bicarb Adult 8.4% Syr) 100 meq 1X ONCE 01/15/19 08:30 01/15/19 08:31 DC 01/15/19 08:31 100 MEQ Sodium Chloride 30 meq/Sodium Acetate 40 meq/ Potassium Acetate 30 meq/Calcium Gluconate 10 meq/ Multivitamins 10 ml/Chromium/ Copper/Manganese/ Seleni/Zn 1 ml/ Total Parenteral Nutrition/Amino Acids/Dextrose/ Fat Emulsion Intravenous 1,512 ml @ 63 mls/hr TPN CONT 01/14/19 22:00 01/15/19 21:59 DC 01/15/19 00:05 63 MLS/HR Sodium Chloride 40 meq/Sodium Acetate 40 meq/ Calcium Gluconate 10 meq/ Multivitamins 10 ml/Chromium/ Copper/Manganese/ Seleni/Zn 1 ml/ Thiamine HCl 100 mg/Total Parenteral Nutrition/Amino Acids/Dextrose/ Fat Emulsion Intravenous 1,512 ml @ 63 mls/hr TPN CONT 01/15/19 22:00 01/16/19 21:59 DC 01/15/19 21:45 63 MLS/HR Sodium Chloride 40 meq/Sodium Acetate 40 meq/ Potassium Acetate 10 meq/Calcium Gluconate 10 meq/ Multivitamins 10 ml/Chromium/ Copper/Manganese/ Seleni/Zn 1 ml/ Thiamine HCl 100 mg/Total Parenteral Nutrition/Amino Acids/Dextrose/ Fat Emulsion Intravenous 1,512 ml @ 63 mls/hr TPN CONT 01/15/19 22:00 01/15/19 14:18 DC Sodium Chloride 40 meq/Sodium Acetate 40 meq/ Potassium Acetate 10 meq/Calcium Gluconate 10 meq/ Multivitamins 10 ml/Chromium/ Copper/Manganese/ Seleni/Zn 1 ml/ Total Parenteral Nutrition/Amino Acids/Dextrose/ Fat Emulsion Intravenous 1,512 ml @ 63 mls/hr TPN CONT 01/15/19 22:00 01/15/19 11:06 DC Sodium Chloride 60 meq/Sodium Acetate 40 meq/ Calcium Gluconate 10 meq/ Multivitamins 10 ml/Chromium/ Copper/Manganese/ Seleni/Zn 1 ml/ Thiamine HCl 100 mg/Total Parenteral Nutrition/Amino Acids/Dextrose/ Fat Emulsion Intravenous 1,512 ml @ 63 mls/hr TPN CONT 01/16/19 22:00 01/18/19 10:50 DC 01/16/19 22:00 63 MLS/HR Sodium Chloride 80 meq/Calcium Gluconate 10 meq/ Multivitamins 10 ml/Chromium/ Copper/Manganese/ Seleni/Zn 1 ml/ Thiamine HCl 100 mg/Total Parenteral Nutrition/Amino Acids/Dextrose/ Fat Emulsion Intravenous 1,512 ml @ 63 mls/hr TPN CONT 01/18/19 22:00 01/19/19 21:59 01/18/19 21:37 63 MLS/HR Succinylcholine Chloride (Anectine) 200 mg 1X ONCE 01/08/19 09:45 01/08/19 09:46 DC 01/08/19 09:41 200 MG Tramadol HCl (Ultram) 50 mg PRN Q6HRS PRN 01/08/19 09:15 Vancomycin HCl (Vanco Per Pharmacy) 1 each PRN DAILY PRN 01/07/19 21:00 01/08/19 06:39 DC 01/08/19 00:43 1 EACH Vancomycin HCl (Vancomycin Trough Level) 1 each 1X ONCE 01/09/19 09:30 01/09/19 09:31 Cancel Vancomycin HCl 1.5 gm/Sodium Chloride 500 ml @ 250 mls/hr Q12H 01/08/19 10:00 01/08/19 06:39 DC Vancomycin HCl 2 gm/Sodium Chloride 500 ml @ 250 mls/hr 1X ONCE 01/07/19 22:00 01/07/19 23:59 DC 01/07/19 22:11 250 MLS/HR Vasopressin 40 unit/Dextrose 102 ml @ 6 mls/hr CONT PRN 01/15/19 10:00 01/19/19 02:07 6 MLS/HR Vecuronium Rhododendron (Norcuron Bolus) 6 mg PRN Q4HRS PRN 01/08/19 12:00 01/18/19 11:14 6 MG Lab Laboratory Tests Test 01/18/19 14:00 01/18/19 21:45 01/18/19 22:43 01/18/19 23:29 Sodium Level 142 mmol/L (136-145) 142 mmol/L (136-145) Potassium Level 4.1 mmol/L (3.5-5.1) 5.0 mmol/L (3.5-5.1) Chloride Level 103 mmol/L (98-107) 102 mmol/L (98-107) Carbon Dioxide Level 23 mmol/L (21-32) 19 mmol/L (21-32) Anion Gap 16 (6-14) 21 (6-14) Blood Urea Nitrogen 30 mg/dL (8-26) 28 mg/dL (8-26) Creatinine 1.4 mg/dL (0.7-1.3) 1.4 mg/dL (0.7-1.3) Estimated GFR (Cockcroft-Gault) 56.7 56.7 Glucose Level 156 mg/dL (70-99) 37 mg/dL (70-99) Calcium Level 6.9 mg/dL (8.5-10.1) 6.9 mg/dL (8.5-10.1) Phosphorus Level 2.8 mg/dL (2.6-4.7) 5.0 mg/dL (2.6-4.7) Magnesium Level 2.3 mg/dL (1.8-2.4) 4.8 mg/dL (1.8-2.4) Glucose (Fingerstick) 126 mg/dL (70-99) 103 mg/dL (70-99) Test 01/19/19 04:30 01/19/19 07:59 01/19/19 08:00 White Blood Count 18.9 x10^3/uL (4.0-11.0) Red Blood Count 2.36 x10^6/uL (4.30-5.70) Hemoglobin 7.7 g/dL (13.0-17.5) Hematocrit 23.6 % (39.0-53.0) Mean Corpuscular Volume 100 fL (79-100) Mean Corpuscular Hemoglobin 33 pg (25-35) Mean Corpuscular Hemoglobin Concent 32 g/dL (31-37) Red Cell Distribution Width 21.5 % (11.5-14.5) Platelet Count 37 x10^3/uL (140-400) Neutrophils (%) (Auto) 88 % (31-73) Lymphocytes (%) (Auto) 8 % (24-48) Monocytes (%) (Auto) 3 % (0-9) Eosinophils (%) (Auto) 1 % (0-3) Basophils (%) (Auto) 1 % (0-3) Neutrophils # (Auto) 16.2 x10^3/uL (1.8-7.7) Lymphocytes # (Auto) 1.4 x10^3/uL (1.0-4.8) Monocytes # (Auto) 0.6 x10^3/uL (0.0-1.1) Eosinophils # (Auto) 0.1 x10^3/uL (0.0-0.7) Basophils # (Auto) 0.1 x10^3/uL (0.0-0.2) Prothrombin Time 23.7 SEC (11.7-14.0) Prothromb Time International Ratio 2.1 (0.8-1.1) Sodium Level 141 mmol/L (136-145) 140 mmol/L (136-145) Potassium Level 5.3 mmol/L (3.5-5.1) 4.8 mmol/L (3.5-5.1) Chloride Level 102 mmol/L (98-107) 101 mmol/L (98-107) Carbon Dioxide Level 22 mmol/L (21-32) 24 mmol/L (21-32) Anion Gap 17 (6-14) 15 (6-14) Blood Urea Nitrogen 28 mg/dL (8-26) 29 mg/dL (8-26) Creatinine 1.4 mg/dL (0.7-1.3) 1.3 mg/dL (0.7-1.3) Estimated GFR (Cockcroft-Gault) 56.7 61.8 Glucose Level 166 mg/dL (70-99) 202 mg/dL (70-99) Calcium Level 7.3 mg/dL (8.5-10.1) 7.1 mg/dL (8.5-10.1) Phosphorus Level 3.9 mg/dL (2.6-4.7) Magnesium Level 4.7 mg/dL (1.8-2.4) Albumin 3.6 g/dL (3.4-5.0) 3.7 g/dL (3.4-5.0) Triglycerides Level 167 mg/dL (0-150) Glucose (Fingerstick) 182 mg/dL (70-99) BUN/Creatinine Ratio 22 (6-20) Lactic Acid Level 9.3 mmol/L (0.4-2.0) Total Bilirubin 15.2 mg/dL (0.2-1.0) Aspartate Amino Transf (AST/SGOT) 349 U/L (15-37) Alanine Aminotransferase (ALT/SGPT) 84 U/L (16-63) Alkaline Phosphatase 178 U/L (46-116) Total Protein 6.5 g/dL (6.4-8.2) Albumin/Globulin Ratio 1.3 (1.0-1.7) Results All relevant outside records, renal labs, imaging studies, telemetry/EKG's were reviewed. GIANNI AHY MD Jan 19, 2019 09:50
--- NOTE | 2019-01-19 09:52 | PDOC ---
Objective: Objective: D/w nurse - better resp-mcnulty today so far, on TPN, had a small stool. Vital Signs: Vital Signs Date Time Temp Pulse Resp B/P (MAP) Pulse Ox O2 Delivery O2 Flow Rate FiO2 01/19/19 09:04 100 2.0 01/19/19 09:00 120 24 120/56 (77) Ventilator 01/19/19 08:00 96.9 96.9 Labs: Laboratory Tests Test 01/18/19 14:00 01/18/19 21:45 01/18/19 22:43 01/18/19 23:29 Sodium Level 142 mmol/L 142 mmol/L Potassium Level 4.1 mmol/L 5.0 mmol/L Chloride Level 103 mmol/L 102 mmol/L Carbon Dioxide Level 23 mmol/L 19 mmol/L Anion Gap 16 21 Blood Urea Nitrogen 30 mg/dL 28 mg/dL Creatinine 1.4 mg/dL 1.4 mg/dL Estimated GFR (Cockcroft-Gault) 56.7 56.7 Glucose Level 156 mg/dL 37 mg/dL Calcium Level 6.9 mg/dL 6.9 mg/dL Phosphorus Level 2.8 mg/dL 5.0 mg/dL Magnesium Level 2.3 mg/dL 4.8 mg/dL Glucose (Fingerstick) 126 mg/dL 103 mg/dL Test 01/19/19 04:30 01/19/19 07:59 01/19/19 08:00 White Blood Count 18.9 x10^3/uL Red Blood Count 2.36 x10^6/uL Hemoglobin 7.7 g/dL Hematocrit 23.6 % Mean Corpuscular Volume 100 fL Mean Corpuscular Hemoglobin 33 pg Mean Corpuscular Hemoglobin Concent 32 g/dL Red Cell Distribution Width 21.5 % Platelet Count 37 x10^3/uL Neutrophils (%) (Auto) 88 % Lymphocytes (%) (Auto) 8 % Monocytes (%) (Auto) 3 % Eosinophils (%) (Auto) 1 % Basophils (%) (Auto) 1 % Neutrophils # (Auto) 16.2 x10^3/uL Lymphocytes # (Auto) 1.4 x10^3/uL Monocytes # (Auto) 0.6 x10^3/uL Eosinophils # (Auto) 0.1 x10^3/uL Basophils # (Auto) 0.1 x10^3/uL Prothrombin Time 23.7 SEC Prothromb Time International Ratio 2.1 Sodium Level 141 mmol/L 140 mmol/L Potassium Level 5.3 mmol/L 4.8 mmol/L Chloride Level 102 mmol/L 101 mmol/L Carbon Dioxide Level 22 mmol/L 24 mmol/L Anion Gap 17 15 Blood Urea Nitrogen 28 mg/dL 29 mg/dL Creatinine 1.4 mg/dL 1.3 mg/dL Estimated GFR (Cockcroft-Gault) 56.7 61.8 Glucose Level 166 mg/dL 202 mg/dL Calcium Level 7.3 mg/dL 7.1 mg/dL Phosphorus Level 3.9 mg/dL Magnesium Level 4.7 mg/dL Albumin 3.6 g/dL 3.7 g/dL Triglycerides Level 167 mg/dL Glucose (Fingerstick) 182 mg/dL BUN/Creatinine Ratio 22 Lactic Acid Level 9.3 mmol/L Total Bilirubin 15.2 mg/dL Aspartate Amino Transf (AST/SGOT) 349 U/L Alanine Aminotransferase (ALT/SGPT) 84 U/L Alkaline Phosphatase 178 U/L Total Protein 6.5 g/dL Albumin/Globulin Ratio 1.3 Imaging: CXR 01/18 IMPRESSION: 1. Stable life support devices. 2. Stable diffuse right greater than left heterogeneous opacities. PE: GEN: intubated LUNGS: vent HEART: tachycardic ABD: occasional gurgle, stable distention EXTREM: edematous NEURO/PSYCH: sedated A/P: Resp failure, renal failure Alcoholic hepatitis/cirrhosis Thrombocytopenia, anemia, coagulopathy -- Will review w/ Dr. Goodman. PINKY GONZALES Jan 19, 2019 09:52
[2019-01-19 09:54] LABS: BASE EXCESS ABG -5 mmol/L (-3-3); HCO3 ABG 21 mmol/L (21-28); PCO2 ABG 42 mmHg (35-46); PO2 ABG 79 mmHg (85-108); SAT O2 ABG 95 % (92-99)
[2019-01-19 09:57] LABS: FIO2 ABG 100
[2019-01-19] MEDS ORDERED: ALBUMIN HUMAN 25% 100 ML IV ONE ×2 (10:44→17:00)
--- NOTE | 2019-01-19 11:22 | PDOC ---
PULMONARY PROGRESS NOTES Subjective Mild improvement in oxygenation HEAVELY SEDATED ON PC MODE , PEEP down to 14 from 17, FIO2 100 %, on propofol, versed, fentanyl, mod ett secretion. stiff lungs with high plateau pressure ON levo, on CRRT Vitals Vital Signs Date Time Temp Pulse Resp B/P (MAP) Pulse Ox O2 Delivery O2 Flow Rate FiO2 01/19/19 10:00 113 24 121/60 (80) 100 Ventilator 01/19/19 09:04 2.0 01/19/19 08:00 96.9 96.9 Comments ros as mentioned as above discussed w rn other sys otherwise neg on vent sedated Lungs: Other (coarse bs bilaterally) Cardiovascular: S1, S2 Abdomen: Soft, Non-tender, Other (DISTENDED no mass) Extremities: Other (EDEMA) Skin: Warm Labs Laboratory Tests Test 01/17/19 11:42 01/17/19 16:00 01/17/19 23:30 01/18/19 00:00 Sodium Level 137 mmol/L (136-145) 137 mmol/L (136-145) 140 mmol/L (136-145) Potassium Level 4.6 mmol/L (3.5-5.1) 4.3 mmol/L (3.5-5.1) 4.7 mmol/L (3.5-5.1) Chloride Level 101 mmol/L (98-107) 101 mmol/L (98-107) 103 mmol/L (98-107) Carbon Dioxide Level 21 mmol/L (21-32) 20 mmol/L (21-32) 19 mmol/L (21-32) Anion Gap 15 (6-14) 16 (6-14) 18 (6-14) Blood Urea Nitrogen 31 mg/dL (8-26) 31 mg/dL (8-26) 33 mg/dL (8-26) Creatinine 1.8 mg/dL (0.7-1.3) 1.7 mg/dL (0.7-1.3) 1.8 mg/dL (0.7-1.3) Estimated GFR (Cockcroft-Gault) 42.4 45.3 42.4 Glucose Level 117 mg/dL (70-99) 117 mg/dL (70-99) 102 mg/dL (70-99) Calcium Level 7.4 mg/dL (8.5-10.1) 7.2 mg/dL (8.5-10.1) 7.2 mg/dL (8.5-10.1) Phosphorus Level 2.9 mg/dL (2.6-4.7) 2.3 mg/dL (2.6-4.7) 3.6 mg/dL (2.6-4.7) Magnesium Level 2.3 mg/dL (1.8-2.4) 2.4 mg/dL (1.8-2.4) 2.3 mg/dL (1.8-2.4) Lactic Acid Level 10.7 mmol/L (0.4-2.0) 12.3 mmol/L (0.4-2.0) Test 01/18/19 05:40 01/18/19 07:40 01/18/19 08:45 01/18/19 08:50 White Blood Count 15.7 x10^3/uL (4.0-11.0) Red Blood Count 1.88 x10^6/uL (4.30-5.70) Hemoglobin 6.3 g/dL (13.0-17.5) Hematocrit 19.6 % (39.0-53.0) Mean Corpuscular Volume 105 fL (79-100) Mean Corpuscular Hemoglobin 34 pg (25-35) Mean Corpuscular Hemoglobin Concent 32 g/dL (31-37) Red Cell Distribution Width 19.4 % (11.5-14.5) Platelet Count 44 x10^3/uL (140-400) Neutrophils (%) (Auto) 85 % (31-73) Lymphocytes (%) (Auto) 12 % (24-48) Monocytes (%) (Auto) 3 % (0-9) Eosinophils (%) (Auto) 1 % (0-3) Basophils (%) (Auto) 0 % (0-3) Neutrophils # (Auto) 13.3 x10^3/uL (1.8-7.7) Lymphocytes # (Auto) 1.9 x10^3/uL (1.0-4.8) Monocytes # (Auto) 0.4 x10^3/uL (0.0-1.1) Eosinophils # (Auto) 0.1 x10^3/uL (0.0-0.7) Basophils # (Auto) 0.1 x10^3/uL (0.0-0.2) Sodium Level 140 mmol/L (136-145) Potassium Level 4.1 mmol/L (3.5-5.1) Chloride Level 102 mmol/L (98-107) Carbon Dioxide Level 21 mmol/L (21-32) Anion Gap 17 (6-14) Blood Urea Nitrogen 30 mg/dL (8-26) Creatinine 1.5 mg/dL (0.7-1.3) Estimated GFR (Cockcroft-Gault) 52.4 Glucose Level 150 mg/dL (70-99) Calcium Level 7.2 mg/dL (8.5-10.1) Phosphorus Level 2.2 mg/dL (2.6-4.7) Magnesium Level 2.3 mg/dL (1.8-2.4) Albumin 3.0 g/dL (3.4-5.0) O2 Saturation 78 % (92-99) Arterial Blood pH 7.30 (7.35-7.45) Arterial Blood pCO2 at Patient Temp 41 mmHg (35-46) Arterial Blood pO2 at Patient Temp 50 mmHg (85-108) Arterial Blood HCO3 20 mmol/L (21-28) Arterial Blood Base Excess -6 mmol/L (-3-3) FiO2 100 Fibrinogen 145 mg/dL (200-440) Test 01/18/19 14:00 01/18/19 21:45 01/18/19 22:43 01/18/19 23:29 Sodium Level 142 mmol/L (136-145) 142 mmol/L (136-145) Potassium Level 4.1 mmol/L (3.5-5.1) 5.0 mmol/L (3.5-5.1) Chloride Level 103 mmol/L (98-107) 102 mmol/L (98-107) Carbon Dioxide Level 23 mmol/L (21-32) 19 mmol/L (21-32) Anion Gap 16 (6-14) 21 (6-14) Blood Urea Nitrogen 30 mg/dL (8-26) 28 mg/dL (8-26) Creatinine 1.4 mg/dL (0.7-1.3) 1.4 mg/dL (0.7-1.3) Estimated GFR (Cockcroft-Gault) 56.7 56.7 Glucose Level 156 mg/dL (70-99) 37 mg/dL (70-99) Calcium Level 6.9 mg/dL (8.5-10.1) 6.9 mg/dL (8.5-10.1) Phosphorus Level 2.8 mg/dL (2.6-4.7) 5.0 mg/dL (2.6-4.7) Magnesium Level 2.3 mg/dL (1.8-2.4) 4.8 mg/dL (1.8-2.4) Glucose (Fingerstick) 126 mg/dL (70-99) 103 mg/dL (70-99) Test 01/19/19 04:30 01/19/19 07:59 01/19/19 08:00 01/19/19 09:40 White Blood Count 18.9 x10^3/uL (4.0-11.0) Red Blood Count 2.36 x10^6/uL (4.30-5.70) Hemoglobin 7.7 g/dL (13.0-17.5) Hematocrit 23.6 % (39.0-53.0) Mean Corpuscular Volume 100 fL (79-100) Mean Corpuscular Hemoglobin 33 pg (25-35) Mean Corpuscular Hemoglobin Concent 32 g/dL (31-37) Red Cell Distribution Width 21.5 % (11.5-14.5) Platelet Count 37 x10^3/uL (140-400) Neutrophils (%) (Auto) 88 % (31-73) Lymphocytes (%) (Auto) 8 % (24-48) Monocytes (%) (Auto) 3 % (0-9) Eosinophils (%) (Auto) 1 % (0-3) Basophils (%) (Auto) 1 % (0-3) Neutrophils # (Auto) 16.2 x10^3/uL (1.8-7.7) Lymphocytes # (Auto) 1.4 x10^3/uL (1.0-4.8) Monocytes # (Auto) 0.6 x10^3/uL (0.0-1.1) Eosinophils # (Auto) 0.1 x10^3/uL (0.0-0.7) Basophils # (Auto) 0.1 x10^3/uL (0.0-0.2) Prothrombin Time 23.7 SEC (11.7-14.0) Prothromb Time International Ratio 2.1 (0.8-1.1) Sodium Level 141 mmol/L (136-145) 140 mmol/L (136-145) Potassium Level 5.3 mmol/L (3.5-5.1) 4.8 mmol/L (3.5-5.1) Chloride Level 102 mmol/L (98-107) 101 mmol/L (98-107) Carbon Dioxide Level 22 mmol/L (21-32) 24 mmol/L (21-32) Anion Gap 17 (6-14) 15 (6-14) Blood Urea Nitrogen 28 mg/dL (8-26) 29 mg/dL (8-26) Creatinine 1.4 mg/dL (0.7-1.3) 1.3 mg/dL (0.7-1.3) Estimated GFR (Cockcroft-Gault) 56.7 61.8 Glucose Level 166 mg/dL (70-99) 202 mg/dL (70-99) Calcium Level 7.3 mg/dL (8.5-10.1) 7.1 mg/dL (8.5-10.1) Phosphorus Level 3.9 mg/dL (2.6-4.7) Magnesium Level 4.7 mg/dL (1.8-2.4) Albumin 3.6 g/dL (3.4-5.0) 3.7 g/dL (3.4-5.0) Triglycerides Level 167 mg/dL (0-150) Glucose (Fingerstick) 182 mg/dL (70-99) BUN/Creatinine Ratio 22 (6-20) Lactic Acid Level 9.3 mmol/L (0.4-2.0) Total Bilirubin 15.2 mg/dL (0.2-1.0) Aspartate Amino Transf (AST/SGOT) 349 U/L (15-37) Alanine Aminotransferase (ALT/SGPT) 84 U/L (16-63) Alkaline Phosphatase 178 U/L (46-116) Total Protein 6.5 g/dL (6.4-8.2) Albumin/Globulin Ratio 1.3 (1.0-1.7) O2 Saturation 95 % (92-99) Arterial Blood pH 7.31 (7.35-7.45) Arterial Blood pCO2 at Patient Temp 42 mmHg (35-46) Arterial Blood pO2 at Patient Temp 79 mmHg (85-108) Arterial Blood HCO3 21 mmol/L (21-28) Arterial Blood Base Excess -5 mmol/L (-3-3) FiO2 100 Laboratory Tests Test 01/18/19 14:00 01/18/19 21:45 01/18/19 22:43 01/18/19 23:29 Sodium Level 142 mmol/L (136-145) 142 mmol/L (136-145) Potassium Level 4.1 mmol/L (3.5-5.1) 5.0 mmol/L (3.5-5.1) Chloride Level 103 mmol/L (98-107) 102 mmol/L (98-107) Carbon Dioxide Level 23 mmol/L (21-32) 19 mmol/L (21-32) Anion Gap 16 (6-14) 21 (6-14) Blood Urea Nitrogen 30 mg/dL (8-26) 28 mg/dL (8-26) Creatinine 1.4 mg/dL (0.7-1.3) 1.4 mg/dL (0.7-1.3) Estimated GFR (Cockcroft-Gault) 56.7 56.7 Glucose Level 156 mg/dL (70-99) 37 mg/dL (70-99) Calcium Level 6.9 mg/dL (8.5-10.1) 6.9 mg/dL (8.5-10.1) Phosphorus Level 2.8 mg/dL (2.6-4.7) 5.0 mg/dL (2.6-4.7) Magnesium Level 2.3 mg/dL (1.8-2.4) 4.8 mg/dL (1.8-2.4) Glucose (Fingerstick) 126 mg/dL (70-99) 103 mg/dL (70-99) Test 01/19/19 04:30 01/19/19 07:59 01/19/19 08:00 01/19/19 09:40 White Blood Count 18.9 x10^3/uL (4.0-11.0) Red Blood Count 2.36 x10^6/uL (4.30-5.70) Hemoglobin 7.7 g/dL (13.0-17.5) Hematocrit 23.6 % (39.0-53.0) Mean Corpuscular Volume 100 fL (79-100) Mean Corpuscular Hemoglobin 33 pg (25-35) Mean Corpuscular Hemoglobin Concent 32 g/dL (31-37) Red Cell Distribution Width 21.5 % (11.5-14.5) Platelet Count 37 x10^3/uL (140-400) Neutrophils (%) (Auto) 88 % (31-73) Lymphocytes (%) (Auto) 8 % (24-48) Monocytes (%) (Auto) 3 % (0-9) Eosinophils (%) (Auto) 1 % (0-3) Basophils (%) (Auto) 1 % (0-3) Neutrophils # (Auto) 16.2 x10^3/uL (1.8-7.7) Lymphocytes # (Auto) 1.4 x10^3/uL (1.0-4.8) Monocytes # (Auto) 0.6 x10^3/uL (0.0-1.1) Eosinophils # (Auto) 0.1 x10^3/uL (0.0-0.7) Basophils # (Auto) 0.1 x10^3/uL (0.0-0.2) Prothrombin Time 23.7 SEC (11.7-14.0) Prothromb Time International Ratio 2.1 (0.8-1.1) Sodium Level 141 mmol/L (136-145) 140 mmol/L (136-145) Potassium Level 5.3 mmol/L (3.5-5.1) 4.8 mmol/L (3.5-5.1) Chloride Level 102 mmol/L (98-107) 101 mmol/L (98-107) Carbon Dioxide Level 22 mmol/L (21-32) 24 mmol/L (21-32) Anion Gap 17 (6-14) 15 (6-14) Blood Urea Nitrogen 28 mg/dL (8-26) 29 mg/dL (8-26) Creatinine 1.4 mg/dL (0.7-1.3) 1.3 mg/dL (0.7-1.3) Estimated GFR (Cockcroft-Gault) 56.7 61.8 Glucose Level 166 mg/dL (70-99) 202 mg/dL (70-99) Calcium Level 7.3 mg/dL (8.5-10.1) 7.1 mg/dL (8.5-10.1) Phosphorus Level 3.9 mg/dL (2.6-4.7) Magnesium Level 4.7 mg/dL (1.8-2.4) Albumin 3.6 g/dL (3.4-5.0) 3.7 g/dL (3.4-5.0) Triglycerides Level 167 mg/dL (0-150) Glucose (Fingerstick) 182 mg/dL (70-99) BUN/Creatinine Ratio 22 (6-20) Lactic Acid Level 9.3 mmol/L (0.4-2.0) Total Bilirubin 15.2 mg/dL (0.2-1.0) Aspartate Amino Transf (AST/SGOT) 349 U/L (15-37) Alanine Aminotransferase (ALT/SGPT) 84 U/L (16-63) Alkaline Phosphatase 178 U/L (46-116) Total Protein 6.5 g/dL (6.4-8.2) Albumin/Globulin Ratio 1.3 (1.0-1.7) O2 Saturation 95 % (92-99) Arterial Blood pH 7.31 (7.35-7.45) Arterial Blood pCO2 at Patient Temp 42 mmHg (35-46) Arterial Blood pO2 at Patient Temp 79 mmHg (85-108) Arterial Blood HCO3 21 mmol/L (21-28) Arterial Blood Base Excess -5 mmol/L (-3-3) FiO2 100 Comments cxr reviewed, 01/19 ett ok Bilateral infiltrates worse Impression . IMPRESSION: 1. Acute respiratory failure, multifactorial, secondary to multiorgan failure. ARDS with.likely superimposed fluid overload/CHF/ underlying aspiration p neumonitis etiology of ARDS, no evidence of hepato-pulmonary shunt on Bubble echo 2. End-stage liver disease with persistent abnormal LFT, bili up to 15 3. Multiorgan failure. 4. Renal failure. ? hepato renal syndrome, remains oliguric, on CRRT 5. Acute gastrointestinal bleed.? MV Tear, stable Hb 6. sepsis. 7. Leukocytosis. marked increase, no fever, possible leukemoid reaction, improving now 8. Hematemesis.resolved 9. Rhabdomyolysis. 10. Alcohol abuse. 11. Ascites. 12. Electrolyte abnormalities. 13. fever,resolved Imaging: EGD 01/08 E--NO VARICES. Erosions distally c/w reflux/repeated emesis. One quite long narrow erosion which could have been a M-W. No active bleeding or clot. G--Not much retained blood after OG suction and Reglan. NO gastric varices. Linear erosions along the rugae in fundus and body c/w alcoholic or stress gastritis. Scattered "bruises" from OG tube. No ulcer, etc. D--Normal to second portion. IMP: Reflux esophagitis. ? recent M-W tear. Alcoholic gastritis. No active bleeding or clot seen. Plan . PC/ENZO PEEP down to 14, cont 100 Fi02 titration, f/u ABG, OK with permissive hypercapnia. will be ok with PH> 7.25 Not stable for Bronch, , frothy fluid coming from ET, likely pulmonary edema. d/w RN. continue with increase UF . concentrate all drips 1. UF. with CRRT. previously attempts to remove fluid resulted in increasing lactic acid. he now has worsening pulmonary edema by CXR and worsening oxygenation consistent with his oliguria. Will again attempt fluid removal. 2. Continue BS antibiotics per Infectious Disease 3. F/U CXR 4. remains critically ill with poor prognosis 5. Monitor hemoglobin and hematocrit. 6. Follow GI recommendation.f/u LFT 7. Alcohol withdrawal protocol. 8. Nutrition, on TPN, on CRRT / keeping neg on fluid balance. d/w pharmacist to concentrate all drips 9. echo with bubble study Neg d/w , mother cct 30 min FRED SMITH MD Jan 19, 2019 11:22
[2019-01-19] MEDS ORDERED: SODIUM BICARB ADULT 8.4% 50 MEQ/50 ML DISP.SYRIN. ONE (12:00)
[2019-01-19] MEDS ORDERED: EPINEPHrine SYRINGE 1 MG/10 ML SYRINGE ONE (12:00)
--- NOTE | 2019-01-19 12:15 | PDOC ---
PROGRESS NOTES Chief Complaint Chief Complaint Acute respiratory falure, IPPV - 01.08, fluid overload vs Atypical infection VS ARDS from aspiration HEMATEMESIS in A HEAVY DRINKER -Atrophic gastritis, ?MW tear BUT NO ACTIVE GIB - s.po STAT EGD 01/08 SEVERE PCM - albumin 1,7 -s/p albumin 01/09 - off pressors by 01/10 MInimal ascites - by US and CT HYPOTENSION, s/p, pressors standby, albumin, blood products if needed Coagulopathy - s/p vit K, HEPATIC enceph - ammonia midly high 60-90s - lactulose,DE HIGH residuals TRAMSAMINITIS with ELEVATED TB- per GI (TB 9), AST 300s-500s HEp C antibody positive LEft leg bruise, in this coagulopathic anemic pt sec to fall 2 weeks ago - monitor ELEVATED AGAP acidosis NEw ESRD HD - Sat before thanksgi History of Present Illness History of Present Illness needed to start CRRT Sat before thanksgiving NO UO Waking up some, recognizes Anasarca stable TPN, ileus etc so cant do TFs - BS ok HGb 7, WBC 17 - multi specialty on board, lactate down to 9 from 21 BEttr oxygenation but still FIO2 100% and PEEP 14 PLAN: CPM CRRT per renal Abx per ID TPN for now maintain esteves On dvt and ppi ppx NOt ready for trach yet, high O2 and pEEP LTAC screen Vitals Vitals Vital Signs Date Time Temp Pulse Resp B/P (MAP) Pulse Ox O2 Delivery O2 Flow Rate FiO2 01/19/19 12:00 97.0 104 24 118/54 (75) 96 Ventilator 97.0 01/19/19 09:04 2.0 Physical Exam Physical Exam GENERAL: Orally intubated and sedated, CRRT HEENT: Icteric, Pupils equal, ETT and OGT LUNGS: Right-sided rhonchi HEART: S1 S2 regular ABDOMEN: Obese, soft, hypoactive BS : - Esteves EXTREMITIES:gen edema, LLE ecchymosis. SKIN: Warm to touch. No rash NEUROLOGIC: Sedated RIJ and Temp RIJ/HDC (01/13) clean PIV General: Other (tachypneic 30s) Heart: Regular rate, Normal S1, Normal S2 Lungs: Other (coarse bs bilaterally) Abdomen: Soft, No tenderness, Other (pot belly possible fluid wave) Extremities: No clubbing, No cyanosis, Normal pulses, Other (left leg is bruised from a fall 2-3 weeks ago) Labs LABS Laboratory Tests Test 01/18/19 14:00 01/18/19 21:45 01/18/19 22:43 01/18/19 23:29 Sodium Level 142 mmol/L (136-145) 142 mmol/L (136-145) Potassium Level 4.1 mmol/L (3.5-5.1) 5.0 mmol/L (3.5-5.1) Chloride Level 103 mmol/L (98-107) 102 mmol/L (98-107) Carbon Dioxide Level 23 mmol/L (21-32) 19 mmol/L (21-32) Anion Gap 16 (6-14) 21 (6-14) Blood Urea Nitrogen 30 mg/dL (8-26) 28 mg/dL (8-26) Creatinine 1.4 mg/dL (0.7-1.3) 1.4 mg/dL (0.7-1.3) Estimated GFR (Cockcroft-Gault) 56.7 56.7 Glucose Level 156 mg/dL (70-99) 37 mg/dL (70-99) Calcium Level 6.9 mg/dL (8.5-10.1) 6.9 mg/dL (8.5-10.1) Phosphorus Level 2.8 mg/dL (2.6-4.7) 5.0 mg/dL (2.6-4.7) Magnesium Level 2.3 mg/dL (1.8-2.4) 4.8 mg/dL (1.8-2.4) Glucose (Fingerstick) 126 mg/dL (70-99) 103 mg/dL (70-99) Test 01/19/19 04:30 01/19/19 07:59 01/19/19 08:00 01/19/19 09:40 White Blood Count 18.9 x10^3/uL (4.0-11.0) Red Blood Count 2.36 x10^6/uL (4.30-5.70) Hemoglobin 7.7 g/dL (13.0-17.5) Hematocrit 23.6 % (39.0-53.0) Mean Corpuscular Volume 100 fL (79-100) Mean Corpuscular Hemoglobin 33 pg (25-35) Mean Corpuscular Hemoglobin Concent 32 g/dL (31-37) Red Cell Distribution Width 21.5 % (11.5-14.5) Platelet Count 37 x10^3/uL (140-400) Neutrophils (%) (Auto) 88 % (31-73) Lymphocytes (%) (Auto) 8 % (24-48) Monocytes (%) (Auto) 3 % (0-9) Eosinophils (%) (Auto) 1 % (0-3) Basophils (%) (Auto) 1 % (0-3) Neutrophils # (Auto) 16.2 x10^3/uL (1.8-7.7) Lymphocytes # (Auto) 1.4 x10^3/uL (1.0-4.8) Monocytes # (Auto) 0.6 x10^3/uL (0.0-1.1) Eosinophils # (Auto) 0.1 x10^3/uL (0.0-0.7) Basophils # (Auto) 0.1 x10^3/uL (0.0-0.2) Prothrombin Time 23.7 SEC (11.7-14.0) Prothromb Time International Ratio 2.1 (0.8-1.1) Sodium Level 141 mmol/L (136-145) 140 mmol/L (136-145) Potassium Level 5.3 mmol/L (3.5-5.1) 4.8 mmol/L (3.5-5.1) Chloride Level 102 mmol/L (98-107) 101 mmol/L (98-107) Carbon Dioxide Level 22 mmol/L (21-32) 24 mmol/L (21-32) Anion Gap 17 (6-14) 15 (6-14) Blood Urea Nitrogen 28 mg/dL (8-26) 29 mg/dL (8-26) Creatinine 1.4 mg/dL (0.7-1.3) 1.3 mg/dL (0.7-1.3) Estimated GFR (Cockcroft-Gault) 56.7 61.8 Glucose Level 166 mg/dL (70-99) 202 mg/dL (70-99) Calcium Level 7.3 mg/dL (8.5-10.1) 7.1 mg/dL (8.5-10.1) Phosphorus Level 3.9 mg/dL (2.6-4.7) Magnesium Level 4.7 mg/dL (1.8-2.4) Albumin 3.6 g/dL (3.4-5.0) 3.7 g/dL (3.4-5.0) Triglycerides Level 167 mg/dL (0-150) Glucose (Fingerstick) 182 mg/dL (70-99) BUN/Creatinine Ratio 22 (6-20) Lactic Acid Level 9.3 mmol/L (0.4-2.0) Total Bilirubin 15.2 mg/dL (0.2-1.0) Aspartate Amino Transf (AST/SGOT) 349 U/L (15-37) Alanine Aminotransferase (ALT/SGPT) 84 U/L (16-63) Alkaline Phosphatase 178 U/L (46-116) Total Protein 6.5 g/dL (6.4-8.2) Albumin/Globulin Ratio 1.3 (1.0-1.7) O2 Saturation 95 % (92-99) Arterial Blood pH 7.31 (7.35-7.45) Arterial Blood pCO2 at Patient Temp 42 mmHg (35-46) Arterial Blood pO2 at Patient Temp 79 mmHg (85-108) Arterial Blood HCO3 21 mmol/L (21-28) Arterial Blood Base Excess -5 mmol/L (-3-3) FiO2 100 Review of Systems Review of Systems intubated, sedated Assessment and Plan Assessmemt and Plan Problems Medical Problems: (1) Acute hepatic encephalopathy Status: Acute (2) Acute upper GI bleed Status: Acute (3) Ascites Status: Acute (4) Hypokalemia Status: Acute (5) Multiple organ system failure Status: Acute (6) Severe sepsis with acute organ dysfunction Status: Acute Comment Review of Relevant I have reviewed the following items karen (where applicable) has been applied. Labs Laboratory Tests Test 01/17/19 16:00 01/17/19 23:30 01/18/19 00:00 01/18/19 05:40 Sodium Level 137 mmol/L (136-145) 140 mmol/L (136-145) Potassium Level 4.3 mmol/L (3.5-5.1) 4.7 mmol/L (3.5-5.1) Chloride Level 101 mmol/L (98-107) 103 mmol/L (98-107) Carbon Dioxide Level 20 mmol/L (21-32) 19 mmol/L (21-32) Anion Gap 16 (6-14) 18 (6-14) Blood Urea Nitrogen 31 mg/dL (8-26) 33 mg/dL (8-26) Creatinine 1.7 mg/dL (0.7-1.3) 1.8 mg/dL (0.7-1.3) Estimated GFR (Cockcroft-Gault) 45.3 42.4 Glucose Level 117 mg/dL (70-99) 102 mg/dL (70-99) Lactic Acid Level 10.7 mmol/L (0.4-2.0) 12.3 mmol/L (0.4-2.0) Calcium Level 7.2 mg/dL (8.5-10.1) 7.2 mg/dL (8.5-10.1) Phosphorus Level 2.3 mg/dL (2.6-4.7) 3.6 mg/dL (2.6-4.7) Magnesium Level 2.4 mg/dL (1.8-2.4) 2.3 mg/dL (1.8-2.4) White Blood Count 15.7 x10^3/uL (4.0-11.0) Red Blood Count 1.88 x10^6/uL (4.30-5.70) Hemoglobin 6.3 g/dL (13.0-17.5) Hematocrit 19.6 % (39.0-53.0) Mean Corpuscular Volume 105 fL (79-100) Mean Corpuscular Hemoglobin 34 pg (25-35) Mean Corpuscular Hemoglobin Concent 32 g/dL (31-37) Red Cell Distribution Width 19.4 % (11.5-14.5) Platelet Count 44 x10^3/uL (140-400) Neutrophils (%) (Auto) 85 % (31-73) Lymphocytes (%) (Auto) 12 % (24-48) Monocytes (%) (Auto) 3 % (0-9) Eosinophils (%) (Auto) 1 % (0-3) Basophils (%) (Auto) 0 % (0-3) Neutrophils # (Auto) 13.3 x10^3/uL (1.8-7.7) Lymphocytes # (Auto) 1.9 x10^3/uL (1.0-4.8) Monocytes # (Auto) 0.4 x10^3/uL (0.0-1.1) Eosinophils # (Auto) 0.1 x10^3/uL (0.0-0.7) Basophils # (Auto) 0.1 x10^3/uL (0.0-0.2) Test 01/18/19 07:40 01/18/19 08:45 01/18/19 08:50 01/18/19 14:00 Sodium Level 140 mmol/L (136-145) 142 mmol/L (136-145) Potassium Level 4.1 mmol/L (3.5-5.1) 4.1 mmol/L (3.5-5.1) Chloride Level 102 mmol/L (98-107) 103 mmol/L (98-107) Carbon Dioxide Level 21 mmol/L (21-32) 23 mmol/L (21-32) Anion Gap 17 (6-14) 16 (6-14) Blood Urea Nitrogen 30 mg/dL (8-26) 30 mg/dL (8-26) Creatinine 1.5 mg/dL (0.7-1.3) 1.4 mg/dL (0.7-1.3) Estimated GFR (Cockcroft-Gault) 52.4 56.7 Glucose Level 150 mg/dL (70-99) 156 mg/dL (70-99) Calcium Level 7.2 mg/dL (8.5-10.1) 6.9 mg/dL (8.5-10.1) Phosphorus Level 2.2 mg/dL (2.6-4.7) 2.8 mg/dL (2.6-4.7) Magnesium Level 2.3 mg/dL (1.8-2.4) 2.3 mg/dL (1.8-2.4) Albumin 3.0 g/dL (3.4-5.0) O2 Saturation 78 % (92-99) Arterial Blood pH 7.30 (7.35-7.45) Arterial Blood pCO2 at Patient Temp 41 mmHg (35-46) Arterial Blood pO2 at Patient Temp 50 mmHg (85-108) Arterial Blood HCO3 20 mmol/L (21-28) Arterial Blood Base Excess -6 mmol/L (-3-3) FiO2 100 Fibrinogen 145 mg/dL (200-440) Test 01/18/19 21:45 01/18/19 22:43 01/18/19 23:29 01/19/19 04:30 Sodium Level 142 mmol/L (136-145) 141 mmol/L (136-145) Potassium Level 5.0 mmol/L (3.5-5.1) 5.3 mmol/L (3.5-5.1) Chloride Level 102 mmol/L (98-107) 102 mmol/L (98-107) Carbon Dioxide Level 19 mmol/L (21-32) 22 mmol/L (21-32) Anion Gap 21 (6-14) 17 (6-14) Blood Urea Nitrogen 28 mg/dL (8-26) 28 mg/dL (8-26) Creatinine 1.4 mg/dL (0.7-1.3) 1.4 mg/dL (0.7-1.3) Estimated GFR (Cockcroft-Gault) 56.7 56.7 Glucose Level 37 mg/dL (70-99) 166 mg/dL (70-99) Calcium Level 6.9 mg/dL (8.5-10.1) 7.3 mg/dL (8.5-10.1) Phosphorus Level 5.0 mg/dL (2.6-4.7) 3.9 mg/dL (2.6-4.7) Magnesium Level 4.8 mg/dL (1.8-2.4) 4.7 mg/dL (1.8-2.4) Glucose (Fingerstick) 126 mg/dL (70-99) 103 mg/dL (70-99) White Blood Count 18.9 x10^3/uL (4.0-11.0) Red Blood Count 2.36 x10^6/uL (4.30-5.70) Hemoglobin 7.7 g/dL (13.0-17.5) Hematocrit 23.6 % (39.0-53.0) Mean Corpuscular Volume 100 fL (79-100) Mean Corpuscular Hemoglobin 33 pg (25-35) Mean Corpuscular Hemoglobin Concent 32 g/dL (31-37) Red Cell Distribution Width 21.5 % (11.5-14.5) Platelet Count 37 x10^3/uL (140-400) Neutrophils (%) (Auto) 88 % (31-73) Lymphocytes (%) (Auto) 8 % (24-48) Monocytes (%) (Auto) 3 % (0-9) Eosinophils (%) (Auto) 1 % (0-3) Basophils (%) (Auto) 1 % (0-3) Neutrophils # (Auto) 16.2 x10^3/uL (1.8-7.7) Lymphocytes # (Auto) 1.4 x10^3/uL (1.0-4.8) Monocytes # (Auto) 0.6 x10^3/uL (0.0-1.1) Eosinophils # (Auto) 0.1 x10^3/uL (0.0-0.7) Basophils # (Auto) 0.1 x10^3/uL (0.0-0.2) Prothrombin Time 23.7 SEC (11.7-14.0) Prothromb Time International Ratio 2.1 (0.8-1.1) Albumin 3.6 g/dL (3.4-5.0) Triglycerides Level 167 mg/dL (0-150) Test 01/19/19 07:59 01/19/19 08:00 01/19/19 09:40 Glucose (Fingerstick) 182 mg/dL (70-99) Sodium Level 140 mmol/L (136-145) Potassium Level 4.8 mmol/L (3.5-5.1) Chloride Level 101 mmol/L (98-107) Carbon Dioxide Level 24 mmol/L (21-32) Anion Gap 15 (6-14) Blood Urea Nitrogen 29 mg/dL (8-26) Creatinine 1.3 mg/dL (0.7-1.3) Estimated GFR (Cockcroft-Gault) 61.8 BUN/Creatinine Ratio 22 (6-20) Glucose Level 202 mg/dL (70-99) Lactic Acid Level 9.3 mmol/L (0.4-2.0) Calcium Level 7.1 mg/dL (8.5-10.1) Total Bilirubin 15.2 mg/dL (0.2-1.0) Aspartate Amino Transf (AST/SGOT) 349 U/L (15-37) Alanine Aminotransferase (ALT/SGPT) 84 U/L (16-63) Alkaline Phosphatase 178 U/L (46-116) Total Protein 6.5 g/dL (6.4-8.2) Albumin 3.7 g/dL (3.4-5.0) Albumin/Globulin Ratio 1.3 (1.0-1.7) O2 Saturation 95 % (92-99) Arterial Blood pH 7.31 (7.35-7.45) Arterial Blood pCO2 at Patient Temp 42 mmHg (35-46) Arterial Blood pO2 at Patient Temp 79 mmHg (85-108) Arterial Blood HCO3 21 mmol/L (21-28) Arterial Blood Base Excess -5 mmol/L (-3-3) FiO2 100 Laboratory Tests Test 01/18/19 14:00 01/18/19 21:45 01/18/19 22:43 01/18/19 23:29 Sodium Level 142 mmol/L (136-145) 142 mmol/L (136-145) Potassium Level 4.1 mmol/L (3.5-5.1) 5.0 mmol/L (3.5-5.1) Chloride Level 103 mmol/L (98-107) 102 mmol/L (98-107) Carbon Dioxide Level 23 mmol/L (21-32) 19 mmol/L (21-32) Anion Gap 16 (6-14) 21 (6-14) Blood Urea Nitrogen 30 mg/dL (8-26) 28 mg/dL (8-26) Creatinine 1.4 mg/dL (0.7-1.3) 1.4 mg/dL (0.7-1.3) Estimated GFR (Cockcroft-Gault) 56.7 56.7 Glucose Level 156 mg/dL (70-99) 37 mg/dL (70-99) Calcium Level 6.9 mg/dL (8.5-10.1) 6.9 mg/dL (8.5-10.1) Phosphorus Level 2.8 mg/dL (2.6-4.7) 5.0 mg/dL (2.6-4.7) Magnesium Level 2.3 mg/dL (1.8-2.4) 4.8 mg/dL (1.8-2.4) Glucose (Fingerstick) 126 mg/dL (70-99) 103 mg/dL (70-99) Test 01/19/19 04:30 01/19/19 07:59 01/19/19 08:00 01/19/19 09:40 White Blood Count 18.9 x10^3/uL (4.0-11.0) Red Blood Count 2.36 x10^6/uL (4.30-5.70) Hemoglobin 7.7 g/dL (13.0-17.5) Hematocrit 23.6 % (39.0-53.0) Mean Corpuscular Volume 100 fL (79-100) Mean Corpuscular Hemoglobin 33 pg (25-35) Mean Corpuscular Hemoglobin Concent 32 g/dL (31-37) Red Cell Distribution Width 21.5 % (11.5-14.5) Platelet Count 37 x10^3/uL (140-400) Neutrophils (%) (Auto) 88 % (31-73) Lymphocytes (%) (Auto) 8 % (24-48) Monocytes (%) (Auto) 3 % (0-9) Eosinophils (%) (Auto) 1 % (0-3) Basophils (%) (Auto) 1 % (0-3) Neutrophils # (Auto) 16.2 x10^3/uL (1.8-7.7) Lymphocytes # (Auto) 1.4 x10^3/uL (1.0-4.8) Monocytes # (Auto) 0.6 x10^3/uL (0.0-1.1) Eosinophils # (Auto) 0.1 x10^3/uL (0.0-0.7) Basophils # (Auto) 0.1 x10^3/uL (0.0-0.2) Prothrombin Time 23.7 SEC (11.7-14.0) Prothromb Time International Ratio 2.1 (0.8-1.1) Sodium Level 141 mmol/L (136-145) 140 mmol/L (136-145) Potassium Level 5.3 mmol/L (3.5-5.1) 4.8 mmol/L (3.5-5.1) Chloride Level 102 mmol/L (98-107) 101 mmol/L (98-107) Carbon Dioxide Level 22 mmol/L (21-32) 24 mmol/L (21-32) Anion Gap 17 (6-14) 15 (6-14) Blood Urea Nitrogen 28 mg/dL (8-26) 29 mg/dL (8-26) Creatinine 1.4 mg/dL (0.7-1.3) 1.3 mg/dL (0.7-1.3) Estimated GFR (Cockcroft-Gault) 56.7 61.8 Glucose Level 166 mg/dL (70-99) 202 mg/dL (70-99) Calcium Level 7.3 mg/dL (8.5-10.1) 7.1 mg/dL (8.5-10.1) Phosphorus Level 3.9 mg/dL (2.6-4.7) Magnesium Level 4.7 mg/dL (1.8-2.4) Albumin 3.6 g/dL (3.4-5.0) 3.7 g/dL (3.4-5.0) Triglycerides Level 167 mg/dL (0-150) Glucose (Fingerstick) 182 mg/dL (70-99) BUN/Creatinine Ratio 22 (6-20) Lactic Acid Level 9.3 mmol/L (0.4-2.0) Total Bilirubin 15.2 mg/dL (0.2-1.0) Aspartate Amino Transf (AST/SGOT) 349 U/L (15-37) Alanine Aminotransferase (ALT/SGPT) 84 U/L (16-63) Alkaline Phosphatase 178 U/L (46-116) Total Protein 6.5 g/dL (6.4-8.2) Albumin/Globulin Ratio 1.3 (1.0-1.7) O2 Saturation 95 % (92-99) Arterial Blood pH 7.31 (7.35-7.45) Arterial Blood pCO2 at Patient Temp 42 mmHg (35-46) Arterial Blood pO2 at Patient Temp 79 mmHg (85-108) Arterial Blood HCO3 21 mmol/L (21-28) Arterial Blood Base Excess -5 mmol/L (-3-3) FiO2 100 Microbiology 01/15/19 - Final, Resulted 01/15/19 - Final, Resulted 01/15/19 - Final, Resulted 01/15/19 - Preliminary, Resulted 01/15/19 - Preliminary, Resulted 01/15/19 - Preliminary, Resulted 01/15/19 Gram Stain Evaluation - Final, Resulted 01/15/19 Sputum Culture - Final, Resulted 01/15/19 Sputum Result 1 - Final, Resulted 01/14/19 Blood Culture - Final, Complete NO GROWTH AFTER 5 DAYS 01/08/19 Urine Culture - Final, Complete 01/08/19 Urine Culture Result 1 (ELMA) - Final, Complete Medications Current Medications Sodium Chloride 1,000 ml @ 1,000 mls/hr 1X ONCE IV Last administered on 01/07/19at 19:27; Start 01/07/19 at 19:30; Stop 01/07/19 at 20:29; Status DC Ondansetron HCl (Zofran) 4 mg 1X ONCE IV Last administered on 01/07/19at 19:28; Start 01/07/19 at 19:30; Stop 01/07/19 at 19:31; Status DC Pantoprazole Sodium (PROTONIX VIAL for IV PUSH) 80 mg 1X ONCE IVP Last administered on 01/07/19at 19:50; Start 01/07/19 at 20:00; Stop 01/07/19 at 20:01; Status DC Pantoprazole Sodium 80 mg/ Sodium Chloride 100 ml @ 10 mls/hr 1X ONCE IV Last administered on 01/07/19at 20:00; Start 01/07/19 at 20:00; Stop 01/08/19 at 05:59; Status DC Sodium Chloride 1,000 ml @ 1,000 mls/hr 1X ONCE IV Last administered on 01/07/19at 22:12; Start 01/07/19 at 21:00; Stop 01/07/19 at 21:59; Status DC Sodium Chloride 1,000 ml @ 1,000 mls/hr 1X ONCE IV Last administered on 01/07/19at 20:40; Start 01/07/19 at 20:45; Stop 01/07/19 at 21:44; Status DC Potassium Chloride/Sodium Chloride 1,000 ml @ 75 mls/hr 1X ONCE IV Last administered on 01/07/19at 21:16; Start 01/07/19 at 21:30; Stop 01/08/19 at 10:49; Status DC Vancomycin HCl (Vanco Per Pharmacy) 1 each PRN DAILY PRN MC SEE COMMENTS Last administered on 01/08/19at 00:43; Start 01/07/19 at 21:00; Stop 01/08/19 at 06:39; Status DC Piperacillin Sod/ Tazobactam Sod (Zosyn Per Pharmacy) 1 each PRN DAILY PRN MC SEE COMMENTS; Start 01/07/19 at 21:00; Stop 01/18/19 at 12:16; Status DC Piperacillin Sod/ Tazobactam Sod 3.375 gm/Sodium Chloride 50 ml @ 100 mls/hr Q6HRS IV Last administered on 01/18/19at 05:54; Start 01/07/19 at 22:00; Stop 01/18/19 at 12:16; Status DC Vancomycin HCl 2 gm/Sodium Chloride 500 ml @ 250 mls/hr 1X ONCE IV Last administered on 01/07/19at 22:11; Start 01/07/19 at 22:00; Stop 01/07/19 at 23:59; Status DC Lorazepam (Ativan Inj) 1 mg 1X ONCE IV Last administered on 01/07/19at 23:22; Start 01/07/19 at 23:30; Stop 01/07/19 at 23:31; Status DC Lorazepam (Ativan Inj) 2 mg STK-MED ONCE .ROUTE ; Start 01/07/19 at 23:20; Stop 01/07/19 at 23:21; Status DC Vancomycin HCl 1.5 gm/Sodium Chloride 500 ml @ 250 mls/hr Q12H IV ; Start 01/08/19 at 10:00; Stop 01/08/19 at 06:39; Status DC Vancomycin HCl (Vancomycin Trough Level) 1 each 1X ONCE MC ; Start 01/09/19 at 09:30; Stop 01/09/19 at 09:31; Status Cancel Ondansetron HCl (Zofran) 4 mg PRN Q6HRS PRN IVP NAUSEA/VOMITING; Start 01/08/19 at 04:00; Status Cancel Pantoprazole Sodium 80 mg/ Sodium Chloride 100 ml @ 10 mls/hr Q10H IV Last administered on 01/09/19at 02:00; Start 01/08/19 at 06:00; Stop 01/09/19 at 11:00; Status DC Multivitamins 10 ml/Thiamine HCl 100 mg/Folic Acid 1 mg/Sodium Chloride 1,011.2 ml @ 100 mls/ hr DAILY IV Last administered on 01/12/19at 10:29; Start 01/08/19 at 09:00; Stop 01/12/19 at 19:07; Status DC Lorazepam (Ativan Inj) 2 mg PRN Q1HR PRN IV For CIWA 8-14 Last administered on 01/14/19at 21:01; Start 01/08/19 at 07:15 Lorazepam (Ativan Inj) 4 mg PRN Q1HR PRN IV For CIWA 15 or greater Last administered on 01/15/19at 08:40; Start 01/08/19 at 07:15 Haloperidol Lactate (Haldol Inj) 5 mg PRN Q4HRS PRN IVP Hallucinatns,Confusn,Delirium; Start 01/08/19 at 07:15 Diphenhydramine HCl (Benadryl) 25 mg PRN Q15MIN PRN IVP EPS symptoms 2'Haldol admin; Start 01/08/19 at 07:15 Clonidine HCl (Catapres) 0.1 mg PRN Q1HR PRN PO SBP > 180 or DBP > 100, MRX3; Start 01/08/19 at 07:15 Sodium Bicarbonate (Sodium Bicarb Adult 8.4% Syr) 50 meq 1X ONCE IV Last administered on 01/08/19at 08:04; Start 01/08/19 at 08:00; Stop 01/08/19 at 08:01; Status DC Propofol 100 ml @ As Directed STK-MED ONCE IV ; Start 01/08/19 at 08:19; Stop 01/08/19 at 08:19; Status DC Succinylcholine Chloride (Anectine) 200 mg STK-MED ONCE .ROUTE ; Start 01/08/19 at 08:19; Stop 01/08/19 at 08:19; Status DC Propofol 100 ml @ As Directed STK-MED ONCE IV ; Start 01/08/19 at 08:29; Stop 01/08/19 at 08:30; Status DC Fentanyl Citrate 30 ml @ 0 mls/hr CONT PRN PRN IV PER PROTOCOL Last administered on 01/19/19at 08:34; Start 01/08/19 at 09:00 Naloxone HCl (Narcan) 0.4 mg PRN Q2MIN PRN IV SEE INSTRUCTIONS; Start 01/08/19 at 09:00 Sodium Chloride 1,000 ml @ 25 mls/hr Q24H IV Last administered on 01/17/19at 13:38; Start 01/08/19 at 08:54 Fentanyl Citrate (Fentanyl 2ml Vial) 100 mcg STK-MED ONCE .ROUTE ; Start 01/08/19 at 08:55; Stop 01/08/19 at 08:55; Status DC Octreotide Acetate 500 mcg/ Sodium Chloride 101 ml @ 0 mls/hr CONT PRN IV SEE I/O RECORD Last administered on 01/08/19at 13:56; Start 01/08/19 at 09:00; Stop 01/08/19 at 16:55; Status DC Phytonadione (Vitamin K Ampule) 10 mg 1X ONCE SQ Last administered on 01/08/19at 09:56; Start 01/08/19 at 09:15; Stop 01/08/19 at 09:16; Status DC Metoclopramide HCl (Reglan Vial) 10 mg 1X ONCE IVP Last administered on 01/08/19at 14:36; Start 01/08/19 at 11:00; Stop 01/08/19 at 11:01; Status DC Midazolam HCl (Versed) 5 mg STK-MED ONCE .ROUTE ; Start 01/08/19 at 09:00; Stop 01/08/19 at 09:01; Status DC Acetaminophen (Tylenol) 500 mg PRN Q6HRS PRN PO MILD PAIN / TEMP Last administered on 01/11/19at 17:46; Start 01/08/19 at 09:15; Stop 01/13/19 at 09:11; Status DC Tramadol HCl (Ultram) 50 mg PRN Q6HRS PRN PO PAIN MODERATE; Start 01/08/19 at 09:15 Morphine Sulfate (Morphine Sulfate) 2 mg PRN Q2HR PRN IV PAIN; Start 01/08/19 at 09:15 Ondansetron HCl (Zofran) 4 mg PRN Q6HRS PRN IVP NAUSEA/VOMITING, 1ST CHOICE; Start 01/08/19 at 09:15 Fentanyl Citrate (Fentanyl 2ml Vial) 100 mcg 1X ONCE IVP Last administered on 01/08/19at 09:42; Start 01/08/19 at 09:45; Stop 01/08/19 at 09:46; Status DC Midazolam HCl (Versed) 5 mg 1X ONCE IV Last administered on 01/08/19at 09:41; Start 01/08/19 at 09:45; Stop 01/08/19 at 09:46; Status DC Succinylcholine Chloride (Anectine) 200 mg 1X ONCE IV Last administered on 01/08/19at 09:41; Start 01/08/19 at 09:45; Stop 01/08/19 at 09:46; Status DC Propofol 100 ml @ 1.524 mls/ hr CONT PRN IV SEE I/O RECORD Last administered on 01/14/19at 03:56; Start 01/08/19 at 09:45 Midazolam HCl 100 ml @ 5 mls/hr CONT PRN IV SEE I/O RECORD Last administered on 01/19/19at 09:37; Start 01/08/19 at 11:15 Vecuronium [place] (Norcuron Bolus) 6 mg PRN Q4HRS PRN IV VENT ASYNCHRONY Last administered on 01/18/19at 11:14; Start 01/08/19 at 12:00 Benzocaine (Hurricaine One) 2 spray STK-MED ONCE .ROUTE ; Start 01/07/19 at 12:00; Stop 01/08/19 at 14:20; Status DC Lidocaine HCl (Xylocaine 2% Topical 5gm Tube) 5 amanda STK-MED ONCE TP ; Start 01/07/19 at 12:00; Stop 01/08/19 at 14:20; Status DC Lactobacillus Rhamnosus (Culturelle) 1 cap BID PO ; Start 01/08/19 at 21:00; Stop 01/09/19 at 09:29; Status DC Acetaminophen (Tylenol Supp) 650 mg PRN Q6HRS PRN DE MILD PAIN / TEMP Last administered on 01/09/19at 23:44; Start 01/08/19 at 18:15 Norepinephrine Bitartrate 250 ml @ 18.938 mls/ hr CONT PRN IV SEE I/O RECORD Last administered on 01/19/19at 06:31; Start 01/09/19 at 01:45; Stop 01/19/19 at 11:30; Status DC Potassium Chloride (Klor-Con) 40 meq 1X ONCE PO Last administered on 01/09/19at 11:34; Start 01/09/19 at 09:45; Stop 01/09/19 at 09:46; Status DC Metoclopramide HCl (Reglan Vial) 10 mg PRN Q6HRS PRN IVP NAUSEA/VOMITING, 2ND CHOICE Last administered on 01/14/19at 21:01; Start 01/09/19 at 10:15 Albumin Human 100 ml @ 100 mls/hr 1X ONCE IV Last administered on 01/09/19at 10:49; Start 01/09/19 at 10:15; Stop 01/09/19 at 11:14; Status DC Lactulose (LACTULOSE 300ML for RECTAL) 200 gm Q6HRS DE ; Start 01/09/19 at 12:00; Stop 01/09/19 at 11:04; Status DC Insulin Human Lispro (HumaLOG) 0-9 UNITS TIDWMEALS SQ Last administered on 01/19/19at 08:02; Start 01/09/19 at 12:00 Dextrose (Dextrose 50%-Water Syringe) 12.5 gm PRN Q15MIN PRN IV SEE COMMENTS Last administered on 01/18/19at 22:35; Start 01/09/19 at 10:30 Fentanyl Citrate (Fentanyl 600 Mcg/30 ml [employer]) 600 mcg STK-MED ONCE IV ; Start 01/08/19 at 15:25; Stop 01/09/19 at 10:27; Status DC Pantoprazole Sodium (PROTONIX VIAL for IV PUSH) 40 mg DAILYAC IVP Last administered on 01/19/19at 07:44; Start 01/10/19 at 07:30 Lactulose (Lactulose) 20 gm DAILY PO Last administered on 01/12/19at 08:24; Start 01/09/19 at 11:30; Stop 01/12/19 at 10:12; Status DC Potassium Bicarbonate (Potassium Effervescent Tablet) 40 meq BIDWMEALS FT Last administered on 01/10/19at 17:49; Start 01/10/19 at 09:00; Stop 01/11/19 at 09:20; Status DC Linezolid/Dextrose 300 ml @ 300 mls/hr Q12HR IV Last administered on 01/16/19at 08:26; Start 01/11/19 at 13:00; Stop 01/16/19 at 08:29; Status DC Perflutren Protein Type A Microsphe (Optison) 0.66 mg 1X ONCE IV ; Start 01/11/19 at 13:30; Stop 01/11/19 at 13:31; Status DC Albumin Human 100 ml @ 100 mls/hr 1X ONCE IV Last administered on 01/12/19at 08:25; Start 01/12/19 at 07:45; Stop 01/12/19 at 08:44; Status DC Lactulose (Lactulose) 20 gm PRN DAILY PRN PO constipation; Start 01/12/19 at 10:15; Stop 01/13/19 at 09:11; Status DC Acetaminophen (Tylenol) 650 mg PRN Q6HRS PRN PEG MILD PAIN / TEMP Last administered on 01/14/19at 09:11; Start 01/12/19 at 16:30 Lactulose (Lactulose) 20 gm TID PO Last administered on 01/14/19at 21:01; Start 01/13/19 at 10:00 Albumin Human 500 ml @ 125 mls/hr 1X ONCE IV Last administered on 01/13/19at 09:40; Start 01/13/19 at 10:00; Stop 01/13/19 at 13:59; Status DC Bisacodyl (Dulcolax Supp) 10 mg 1X ONCE DE Last administered on 01/13/19at 10:14; Start 01/13/19 at 11:00; Stop 01/13/19 at 11:01; Status DC Lidocaine HCl (Buffered Lidocaine 1%) 3 ml 1X ONCE INJ Last administered on 01/13/19at 11:00; Start 01/13/19 at 11:00; Stop 01/13/19 at 11:01; Status DC Heparin Sodium (Porcine) (Heparin Sodium) 10,000 unit STK-MED ONCE .ROUTE ; Start 01/13/19 at 10:59; Stop 01/13/19 at 11:00; Status DC Darbepoetin Giorgi (ARANESP for DIALYSIS PTS) 60 mcg WEEKLYHS SQ Last administered on 01/13/19at 20:46; Start 01/13/19 at 21:00 Info (Tpn Per Pharmacy) 1 each PRN DAILY PRN MC SEE COMMENTS Last administered on 01/18/19at 12:50; Start 01/13/19 at 11:15 Sodium Chloride 1,000 ml @ 1,000 mls/hr Q1H PRN IV hypotension; Start 01/13/19 at 11:30; Stop 01/13/19 at 19:00; Status DC Albumin Human 200 ml @ 200 mls/hr 1X PRN PRN IV Hypotension; Start 01/13/19 at 11:30; Stop 01/13/19 at 17:29; Status DC Sodium Chloride 1,000 ml @ 400 mls/hr Q2H30M PRN IV PATENCY; Start 01/13/19 at 11:30; Stop 01/13/19 at 19:00; Status DC Info (PHARMACY MONITORING -- do not chart) 1 each PRN DAILY PRN MC SEE COMMENTS; Start 01/13/19 at 11:30 Info (PHARMACY MONITORING -- do not chart) 1 each PRN DAILY PRN MC SEE COMMENTS; Start 01/13/19 at 11:30; Status UNV Sodium Acetate 40 meq/Potassium Acetate 30 meq/ Calcium Gluconate 10 meq/ Multivitamins 10 ml/Chromium/ Copper/Manganese/ Seleni/Zn 1 ml/ Total Parenteral Nutrition/Amino Acids/Dextrose/ Fat Emulsion Intravenous 1,512 ml @ 63 mls/hr TPN CONT IV Last administered on 01/13/19at 21:54; Start 01/13/19 at 22:00; Stop 01/14/19 at 21:59; Status DC Multi-Ingred Cream/Lotion/Oil/ Oint (Artificial Tears Eye Ointment) 1 amanda PRN Q1HR PRN OU DRY EYE Last administered on 01/13/19at 17:14; Start 01/13/19 at 16:45 Docusate Sodium (Enemeez) 283 mg 1X ONCE DE Last administered on 01/13/19at 17:14; Start 01/13/19 at 16:45; Stop 01/13/19 at 16:47; Status DC Levofloxacin/ Dextrose 100 ml @ 100 mls/hr Q24H IV Last administered on 01/19/19at 08:14; Start 01/14/19 at 09:00 Metoclopramide HCl (Reglan Vial) 5 mg 1X ONCE IVP Last administered on 01/14/19at 10:51; Start 01/14/19 at 10:30; Stop 01/14/19 at 10:31; Status DC Dexmedetomidine HCl 400 mcg/ Sodium Chloride 100 ml @ 0 mls/hr CONT PRN IV AGITATION Last administered on 01/19/19at 09:36; Start 01/14/19 at 11:30 Sodium Chloride 1,000 ml @ 1,000 mls/hr Q1H PRN IV hypotension; Start 01/14/19 at 11:26; Stop 01/14/19 at 17:25; Status DC Albumin Human 200 ml @ 200 mls/hr 1X PRN PRN IV Hypotension; Start 01/14/19 at 11:30; Stop 01/14/19 at 17:29; Status DC Sodium Chloride 1,000 ml @ 400 mls/hr Q2H30M PRN IV PATENCY; Start 01/14/19 at 11:26; Stop 01/14/19 at 23:25; Status DC Info (PHARMACY MONITORING -- do not chart) 1 each PRN DAILY PRN MC SEE COMMENTS; Start 01/14/19 at 11:30; Status UNV Info (PHARMACY MONITORING -- do not chart) 1 each PRN DAILY PRN MC SEE COMMENTS; Start 01/14/19 at 11:30; Status UNV Sodium Chloride 30 meq/Sodium Acetate 40 meq/ Potassium Acetate 30 meq/Calcium Gluconate 10 meq/ Multivitamins 10 ml/Chromium/ Copper/Manganese/ Seleni/Zn 1 ml/ Total Parenteral Nutrition/Amino Acids/Dextrose/ Fat Emulsion Intravenous 1,512 ml @ 63 mls/hr TPN CONT IV Last administered on 01/15/19at 00:05; Start 01/14/19 at 22:00; Stop 01/15/19 at 21:59; Status DC Artificial Tears (Artificial Tears) 1 drop Q4H PRN OU DRY EYE Last administered on 01/14/19at 16:43; Start 01/14/19 at 15:30 Sodium Bicarbonate (Sodium Bicarb Adult 8.4% Syr) 50 meq STK-MED ONCE .ROUTE ; Start 01/15/19 at 08:25; Stop 01/15/19 at 08:25; Status DC Sodium Bicarbonate (Sodium Bicarb Adult 8.4% Syr) 100 meq 1X ONCE IV Last administered on 01/15/19at 08:31; Start 01/15/19 at 08:30; Stop 01/15/19 at 08:31; Status DC Sodium Chloride 40 meq/Sodium Acetate 40 meq/ Potassium Acetate 10 meq/Calcium Gluconate 10 meq/ Multivitamins 10 ml/Chromium/ Copper/Manganese/ Seleni/Zn 1 ml/ Total Parenteral Nutrition/Amino Acids/Dextrose/ Fat Emulsion Intravenous 1,512 ml @ 63 mls/hr TPN CONT IV ; Start 01/15/19 at 22:00; Stop 01/15/19 at 11:06; Status DC Vasopressin 40 unit/Dextrose 102 ml @ 6 mls/hr CONT PRN IV SEE I/O RECORD Last administered on 01/19/19at 02:07; Start 01/15/19 at 10:00 Sodium Chloride 1,000 ml @ 1,000 mls/hr Q1H PRN IV hypotension; Start 01/15/19 at 10:00; Stop 01/15/19 at 15:59; Status DC Albumin Human 200 ml @ 200 mls/hr 1X PRN PRN IV Hypotension Last administered on 01/15/19at 11:07; Start 01/15/19 at 10:00; Stop 01/15/19 at 15:59; Status DC Sodium Chloride 1,000 ml @ 400 mls/hr Q2H30M PRN IV PATENCY; Start 01/15/19 at 10:00; Stop 01/15/19 at 21:59; Status DC Info (PHARMACY MONITORING -- do not chart) 1 each PRN DAILY PRN MC SEE COMMENTS; Start 01/15/19 at 10:00; Stop 01/15/19 at 10:57; Status DC Info (PHARMACY MONITORING -- do not chart) 1 each PRN DAILY PRN MC SEE COMMENT S; Start 01/15/19 at 10:00; Stop 01/15/19 at 10:57; Status DC Sodium Chloride 40 meq/Sodium Acetate 40 meq/ Potassium Acetate 10 meq/Calcium Gluconate 10 meq/ Multivitamins 10 ml/Chromium/ Copper/Manganese/ Seleni/Zn 1 ml/ Thiamine HCl 100 mg/Total Parenteral Nutrition/Amino Acids/Dextrose/ Fat Emulsion Intravenous 1,512 ml @ 63 mls/hr TPN CONT IV ; Start 01/15/19 at 22:00; Stop 01/15/19 at 14:18; Status DC Potassium Chloride 20 meq/ Bicarbonate Dialysis Soln w/ out KCl 5,010 ml @ 1,000 mls/hr Q5H1M IV Last administered on 01/15/19at 15:40; Start 01/15/19 at 14:00; Stop 01/15/19 at 19:00; Status DC Potassium Chloride 20 meq/ Bicarbonate Dialysis Soln w/ out KCl 5,010 ml @ 1,000 mls/hr Q5H1M IV Last administered on 01/15/19at 15:50; Start 01/15/19 at 14:00; Stop 01/15/19 at 19:00; Status DC Potassium Chloride 20 meq/ Bicarbonate Dialysis Soln w/ out KCl 5,010 ml @ 1 ,000 mls/hr Q5H1M IV Last administered on 01/15/19at 15:50; Start 01/15/19 at 14:00; Stop 01/15/19 at 19:00; Status DC Albumin Human 100 ml @ 100 mls/hr Q6HRS IV Last administered on 01/19/19at 11:01; Start 01/15/19 at 14:00 Potassium Phosphate 20 mmol/ Sodium Chloride 256.6667 ml @ 128.... PRN Q6HRS PRN IV FOR PO4 < 2.5 Last administered on 01/18/19at 11:13; Start 01/15/19 at 14:00 Sodium Chloride 40 meq/Sodium Acetate 40 meq/ Calcium Gluconate 10 meq/ Multivitamins 10 ml/Chromium/ Copper/Manganese/ Seleni/Zn 1 ml/ Thiamine HCl 100 mg/Total Parenteral Nutrition/Amino Acids/Dextrose/ Fat Emulsion Intravenous 1,512 ml @ 63 mls/hr TPN CONT IV Last administered on 01/15/19at 21:45; Start 01/15/19 at 22:00; Stop 01/16/19 at 21:59; Status DC Potassium Chloride 20 meq/ Bicarbonate Dialysis Soln w/ out KCl 5,010 ml @ 500 mls/hr Q10H2M IV Last administered on 01/17/19at 10:43; Start 01/15/19 at 19:01; Stop 01/17/19 at 15:00; Status DC Potassium Chloride 20 meq/ Bicarbonate Dialysis Soln w/ out KCl 5,010 ml @ 1,200 mls/hr Q4H11M IV Last administered on 01/17/19at 10:36; Start 01/15/19 at 19:01; Stop 01/17/19 at 15:00; Status DC Potassium Chloride 20 meq/ Bicarbonate Dialysis Soln w/ out KCl 5,010 ml @ 1,200 mls/hr Q4H11M IV Last administered on 01/17/19at 00:17; Start 01/15/19 at 19:00; Stop 01/17/19 at 15:00; Status DC Daptomycin 500 mg/ Sodium Chloride 50 ml @ 100 mls/hr Q48H IV Last administered on 01/18/19at 09:11; Start 01/16/19 at 09:00 Sodium Chloride 60 meq/Sodium Acetate 40 meq/ Calcium Gluconate 10 meq/ Multivitamins 10 ml/Chromium/ Copper/Manganese/ Seleni/Zn 1 ml/ Thiamine HCl 100 mg/Total Parenteral Nutrition/Amino Acids/Dextrose/ Fat Emulsion Intravenous 1,512 ml @ 63 mls/hr TPN CONT IV Last administered on 01/16/19at 22:00; Start 01/16/19 at 22:00; Stop 01/18/19 at 10:50; Status DC Sodium Chloride 80 meq/Calcium Gluconate 10 meq/ Multivitamins 10 ml/Chromium/ Copper/Manganese/ Seleni/Zn 1 ml/ Thiamine HCl 100 mg/Total Parenteral Nutrition/Amino Acids/Dextrose/ Fat Emulsion Intravenous 1,512 ml @ 63 mls/hr TPN CONT IV Last administered on 01/17/19at 21:52; Start 01/17/19 at 22:00; Stop 01/18/19 at 21:59; Status DC Potassium Chloride 20 meq/ Sodium Bicarbonate 40 meq/Bicarbonate Dialysis Soln w/ out KCl 5,050 ml @ 500 mls/hr Q10H6M IV Last administered on 01/18/19at 08:17; Start 01/17/19 at 15:00; Stop 01/18/19 at 18:00; Status DC Potassium Chloride 20 meq/ Sodium Bicarbonate 40 meq/Bicarbonate Dialysis Soln w/ out KCl 5,050 ml @ 1,200 mls/hr Q4H13M IV Last administered on 01/18/19at 06:01; Start 01/17/19 at 15:00; Stop 01/18/19 at 09:51; Status DC Potassium Chloride 20 meq/ Sodium Bicarbonate 40 meq/Bicarbonate Dialysis Soln w/ out KCl 5,050 ml @ 1,200 mls/hr Q4H13M IV Last administered on 01/18/19at 06:01; Start 01/17/19 at 15:00; Stop 01/18/19 at 09:51; Status DC Potassium Phosphate 20 mmol/ Sodium Chloride 256.6667 ml @ 128.... ONCE ONCE IV Last administered on 01/17/19at 18:21; Start 01/17/19 at 17:45; Stop 01/17/19 at 19:44; Status DC Calcium Chloride 12.5 meq/ Magnesium Sulfate 2.5 meq/Potassium Chloride 10 meq/ Sodium Bicarbonate 40 meq/Bicarbonate Dialysis Soln w/ out KCl 5,054.5443 ml @ 1,200 mls/hr Q4H13M IV Last administered on 01/19/19at 03:20; Start 01/18/19 at 10:00; Stop 01/19/19 at 07:47; Status DC Calcium Chloride 12.5 meq/ Magnesium Sulfate 2.5 meq/Potassium Chloride 10 meq/ Sodium Bicarbonate 40 meq/Bicarbonate Dialysis Soln w/ out KCl 5,054.5443 ml @ 1,200 mls/hr Q4H13M IV Last administered on 01/19/19at 03:21; Start 01/18/19 at 10:00; Stop 01/19/19 at 07:47; Status DC Calcium Chloride 12.5 meq/ Magnesium Sulfate 2.5 meq/Potassium Chloride 10 meq/ Sodium Bicarbonate 40 meq/Bicarbonate Dialysis Soln w/ out KCl 5,054.5443 ml @ 500 mls/hr Q10H7M IV Last administered on 01/19/19at 05:16; Start 01/18/19 at 18:00; Stop 01/19/19 at 07:48; Status DC Meropenem 500 mg/ Sodium Chloride 50 ml @ 100 mls/hr Q8HRS IV Last adm inistered on 01/19/19at 06:02; Start 01/18/19 at 14:00; Stop 01/19/19 at 09:24; Status DC Sodium Chloride 80 meq/Calcium Gluconate 10 meq/ Multivitamins 10 ml/Chromium/ Copper/Manganese/ Seleni/Zn 1 ml/ Thiamine HCl 100 mg/Total Parenteral Nutrition/Amino Acids/Dextrose/ Fat Emulsion Intravenous 1,512 ml @ 63 mls/hr TPN CONT IV Last administered on 01/18/19at 21:37; Start 01/18/19 at 22:00; Stop 01/19/19 at 21:59 Epinephrine HCl 4 mg/Sodium Chloride 254 ml @ 41.822 mls/ hr CONT PRN IV SEE I/O RECORD; Start 01/18/19 at 16:15 Methylprednisolone Sodium Succinate (SOLU-Medrol 125MG VIAL) 125 mg 1X ONCE IV Last administered on 01/18/19at 16:30; Start 01/18/19 at 16:30; Stop 01/18/19 at 16:31; Status DC Methylprednisolone Sodium Succinate (SOLU-Medrol 125MG VIAL) 125 mg STK-MED ONCE .ROUTE ; Start 01/18/19 at 16:26; Stop 01/18/19 at 16:26; Status DC Calcium Chloride 12.5 meq/ Potassium Chloride 5 meq/ Sodium Bicarbonate 40 meq/Bicarbonate Dialysis Soln w/ out KCl 5,051.4286 ml @ 1,200 mls/hr Q4H13M IV Last administered on 01/19/19at 08:23; Start 01/19/19 at 08:00 Calcium Chloride 12.5 meq/ Potassium Chloride 5 meq/ Sodium Bicarbonate 40 meq/Bicarbonate Dialysis Soln w/ out KCl 5,051.4286 ml @ 1,200 mls/hr Q4H13M IV Last administered on 01/19/19at 08:23; Start 01/19/19 at 08:00 Calcium Chloride 12.5 meq/ Potassium Chloride 5 meq/ Sodium Bicarbonate 40 meq/Bicarbonate Dialysis Soln w/ out KCl 5,051.4286 ml @ 500 mls/hr Q10H7M IV ; Start 01/19/19 at 15:00 Meropenem 1 gm/ Sodium Chloride 100 ml @ 200 mls/hr Q12H IV ; Start 01/19/19 at 14:00 Albumin Human 100 ml @ As Directed STK-MED ONCE IV ; Start 01/19/19 at 10:44; Stop 01/19/19 at 10:44; Status DC Norepinephrine Bitartrate 32 mg/ Sodium Chloride 250 ml @ 7 mls/hr CONT PRN IV SEE I/O RECORD; Start 01/19/19 at 11:30 Vitals/I & O Vital Sign - Last 24 Hours 01/18/19 01/18/19 01/18/19 01/18/19 12:30 13:00 14:00 14:30 Pulse 78 73 Resp 24 24 B/P (MAP) 96/41 (59) 97/39 (58) Pulse Ox 88 81 74 80 O2 Delivery Ventilator Ventilator Ventilator Ventilator 01/18/19 01/18/19 01/18/19 01/18/19 15:00 16:00 16:00 16:51 Pulse 80 84 Resp 24 24 B/P (MAP) 111/43 (65) 127/46 (73) Pulse Ox 74 54 55 O2 Delivery Ventilator Mechanical Ventilator Ventilator Ventilator 01/18/19 01/18/19 01/18/19 01/18/19 17:00 18:00 18:28 19:00 Pulse 116 87 84 Resp 24 24 24 B/P (MAP) 93/53 (66) 100/53 (69) 102/54 (70) Pulse Ox 55 60 59 62 O2 Delivery Ventilator Ventilator Ventilator Ventilator 01/18/19 01/18/19 01/18/19 01/18/19 19:47 20:00 20:00 20:02 Temp 96.6 96.5 96.5 96.6 96.5 96.5 Pulse 82 87 82 Resp 24 B/P (MAP) 85/42 88/42 (57) 85/42 Pulse Ox 64 O2 Delivery Ventilator Mechanical Ventilator 01/18/19 01/18/19 01/18/19 01/18/19 20:10 21:00 21:14 21:50 Temp 96.6 96.6 Pulse 81 82 Resp 24 B/P (MAP) 91/43 (59) 91/43 Pulse Ox 66 72 79 O2 Delivery Ventilator Ventilator Ventilator 01/18/19 01/18/19 01/19/19 01/19/19 22:00 23:00 00:00 00:00 Temp 96.7 96.7 Pulse 82 80 87 Resp 24 24 24 B/P (MAP) 96/37 (56) 99/50 (66) 91/49 (63) Pulse Ox 79 80 99 O2 Delivery Ventilator Ventilator Mechanical Ventilator Ventilator 01/19/19 01/19/19 01/19/19 01/19/19 00:40 01:00 02:00 03:00 Pulse 87 83 81 Resp 24 24 24 B/P (MAP) 105/39 (61) 96/50 (65) 93/46 (62) Pulse Ox 99 99 99 99 O2 Delivery Ventilator Ventilator Ventilator Ventilator 01/19/19 01/19/19 01/19/19 01/19/19 03:25 04:00 04:00 05:00 Temp 96.7 96.7 Pulse 88 112 Resp 24 24 B/P (MAP) 110/55 (73) 106/54 (71) Pulse Ox 100 99 99 O2 Delivery Ventilator Mechanical Ventilator Ventilator Ventilator 1201/19/19 01/19/19 01/19/19 05:56 06:00 07:00 07:55 Pulse 104 96 Resp 24 24 B/P (MAP) 121/62 (81) 120/64 (82) Pulse Ox 100 99 99 99 O2 Delivery Ventilator Ventilator Ventilator Ventilator 01/19/19 01/19/19 01/19/19 01/19/19 08:00 08:00 08:34 09:00 Temp 96.9 96.9 Pulse 104 120 Resp 24 24 B/P (MAP) 119/65 (83) 120/56 (77) Pulse Ox 99 99 100 O2 Delivery Mechanical Ventilator Ventilator Ventilator O2 Flow Rate 2.0 01/19/19 01/19/19 01/19/19 01/19/19 09:04 10:00 11:00 12:00 Pulse 113 120 Resp 24 24 B/P (MAP) 121/60 (80) 118/62 (80) Pulse Ox 100 100 97 O2 Delivery Ventilator Ventilator Mechanical Ventilator O2 Flow Rate 2.0 01/19/19 12:00 Temp 97.0 97.0 Pulse 104 Resp 24 B/P (MAP) 118/54 (75) Pulse Ox 96 O2 Delivery Ventilator Intake and Output 01/18/19 01/18/19 01/19/19 15:00 23:00 07:00 Intake Total 1036 ml 1988.6 ml 1546.5 ml Output Total 0 ml 5 ml 1345 ml Balance 1036 ml 1983.6 ml 201.5 ml MAIK GUNN MD Jan 19, 2019 12:15
[2019-01-19] MEDS: TPN PER PHARMACY MC PRN (13:05)
[2019-01-19 13:06] LABS: PLATELET COUNT 28 x10^3/uL (140-400)
[2019-01-19 13:32] LABS: CALCIUM 7.2 mg/dL (8.5-10.1); CREATININE 1.3 mg/dL (0.7-1.3); GFR 61.8; MAGNESIUM 2.1 mg/dL (1.8-2.4); PHOSPHORUS 1.9 mg/dL (2.6-4.7); POTASSIUM 4.2 mmol/L (3.5-5.1)
[2019-01-19 13:59] LABS: FIBRINOGEN 112 mg/dL (200-440); PARTIAL THROMBOPLASTIN TIME 36 SEC (24-38); PROTHROMBIN TIME PATIENT 24.4 SEC (11.7-14.0)
[2019-01-19] MEDS ORDERED: MEROPENEM 1 GM in IV NORMAL SALINE 100ML 100 ML IV SCH (14:00)
[2019-01-19 14:02] LABS: D-DIMER > 20.00 ug/mlFEU (0.00-0.50)
[2019-01-19] MEDS ORDERED: EPINEPHrine VIAL 8 MG in IV NORMAL SALINE 250ML 250 ML IV PRN (14:15)
[2019-01-19] MEDS: NOREPINEPHRINE VIAL 32 MG in IV NORMAL SALINE 250ML IV PRN (14:15)
--- NOTE | 2019-01-19 14:42 | RAD ---
PORTABLE CHEST 1V Clinical indications: Respiratory failure. Follow-up study. COMPARISON: The cerebral and 2019. Findings: There've been no interval tube or line changes. There has been improvement in the pulmonary edema of the right lower lobe region. However there is an increase in pulmonary edema of the left lower lobe area. No pleural effusion is seen on the left side. Small right-sided pleural effusion is still evident on the right side. No pneumothorax is seen. Heart size and mediastinum are stable. IMPRESSION: Bilateral pulmonary edema with improvement in the right lower lobe region but worsening in the left lower lobe region. Electronically signed by: Yovani Antoine MD (01/19/2019 2:39 PM) [facility], [place]
--- NOTE | 2019-01-19 15:42 | NUR ---
SS following up with discharge planning. SS phoned and faxed clinical updates to [facility], ; fax [phone]. Pt accepted at [facility]. SS will continue to follow for discharge planning.
--- NOTE | 2019-01-19 16:13 | NUR ---
Pharmacy TPN Dosing Note S: ULI CARRIZALES is a 38 year old M Currently receiving Central Continuous TPN started 01/13/19 B:Pertinent PMH: Ileus, high residuals with tube feeding Height: 5 feet, 7 inches Weight: [id number] kg Current diet: LABS: Sodium: 140 Potassium: 4.8 Chloride: 101 Calcium: 7.3 Corrected Calcium: 7.54 Magnesium: 4.7 CO2: 24 SCr: 1.3 Glucose: 150 Albumin: 3.7 AST: 232 ALT: 81 TPN FORMULA: TPN TYPE: Central Continuous AMINO ACIDS: 100 gm DEXTROSE: 225 gm LIPIDS: 20 gm SODIUM CHLORIDE: 80 mEq SODIUM ACETATE: - mEq SODIUM PHOSPHATE: - mmol POTASSIUM CHLORIDE: - mEq POTASSIUM ACETATE: - mEq POTASSIUM PHOSPHATE: - mmol MAGNESIUM: - mEq CALCIUM: 10 mEq INSULIN: units MULTIPLE VITAMIN: 10 ml TRACE ELEMENTS: 1 ml(s) TPN PLAN: 01/19 mag 4.7,, no magso4 in tpn, adjusted magSo4 in crrt, concentrate tpn. R: DECREASE TPN RATE TO 50 ML/HR (1200ML TV) Will monitor electrolytes, glucose, and tolerance to TPN. ANT [facility], 01/19/19 [id number]
[2019-01-19 21:14] LABS: CALCIUM 7.2 mg/dL (8.5-10.1); CREATININE 1.2 mg/dL (0.7-1.3); GFR 67.8; PHOSPHORUS 1.7 mg/dL (2.6-4.7); POTASSIUM 4.2 mmol/L (3.5-5.1)
[2019-01-19] MEDS: POTASSIUM PHOSPHATE DIBASIC 20 MMOL in IV NORMAL SALINE 250ML 250 ML IV PRN (21:40)
[2019-01-19] MEDS ORDERED: AMINO ACID IV SCH ×8 (22:00)
[2019-01-19] MEDS ORDERED: [UNRECOGNIZED DRUG - OTHER] IV SCH ×8 (22:00)
[2019-01-19] MEDS ORDERED: DEXTROSE 70% IV SCH ×8 (22:00)
[2019-01-19] MEDS ORDERED: TOTAL PARENTERAL NUTRITION IV SCH ×8 (22:00)
[2019-01-20] VITALS (25 sets, daily range): BP systolic 91–157; BP diastolic 45–80
[2019-01-20] MEDS: DEXMEDETOMIDINE 400 MCG in IV NORMAL SALINE 100ML 96 ML IV PRN ×7 (00:01→19:31)
[2019-01-20] MEDS: ALBUMIN HUMAN 25% 100 ML IV SCH ×5 (00:25→23:40)
[2019-01-20] MEDS: SODIUM BICARBONATE IV SCH ×19 (02:16→11:31)
[2019-01-20] MEDS: CALCIUM CHLORIDE IV SCH ×25 (02:16→19:25)
[2019-01-20] MEDS: [UNRECOGNIZED DRUG - OTHER] IV SCH ×19 (02:16→11:31)
[2019-01-20] MEDS: POTASSIUM CHLORIDE IV SCH ×25 (02:16→19:25)
[2019-01-20] MEDS: NORMAL SALINE IV SCH ×2 (02:22→15:01)
[2019-01-20] MEDS: MEROPENEM IV SCH ×2 (02:22→15:01)
[2019-01-20 05:40] LABS: BASO # 0.1 x10^3/uL (0.0-0.2); BASO % 1 % (0-3); EOS % 0 % (0-3); HEMOGLOBIN 7.2 g/dL (13.0-17.5); LYMPH # 1.4 x10^3/uL (1.0-4.8); LYMPH % 11 % (24-48); MEAN CORPUSCULAR HEMOGLOBIN 33 pg (25-35); MEAN CORPUSCULAR HGB CONC 35 g/dL (31-37); MEAN CORPUSCULAR VOLUME 97 fL (79-100); MONO # 0.8 x10^3/uL (0.0-1.1); MONO % 6 % (0-9); NEUT # 9.8 x10^3/uL (1.8-7.7); NEUT % 82 % (31-73); RED BLOOD COUNT 2.15 x10^6/uL (4.30-5.70); RED CELL DISTRIBUTION WIDTH 20.5 % (11.5-14.5)
[2019-01-20 05:42] LABS: HEMATOCRIT 20.8 % (39.0-53.0); PLATELET COUNT 24 x10^3/uL (140-400)
[2019-01-20 05:52] LABS: ALBUMIN 3.4 g/dL (3.4-5.0); ALBUMIN/GLOBULIN RATIO 1.3 (1.0-1.7); CALCIUM 7.1 mg/dL (8.5-10.1); CREATININE 1.3 mg/dL (0.7-1.3); GFR 61.8; MAGNESIUM 1.9 mg/dL (1.8-2.4); PHOSPHORUS 1.5 mg/dL (2.6-4.7); POTASSIUM 4.1 mmol/L (3.5-5.1); TOTAL BILIRUBIN 16.2 mg/dL (0.2-1.0); TOTAL PROTEIN 6.1 g/dL (6.4-8.2)
[2019-01-20] MEDS ORDERED: POTASSIUM PHOSPHATE DIBASIC 20 MMOL in IV NORMAL SALINE 250ML 250 ML IV ONE (06:15)
[2019-01-20] MEDS: VASOPRESSIN 40 UNIT in IV DEXTROSE 5% 100ML 100 ML IV PRN ×2 (06:19→19:31)
--- NOTE | 2019-01-20 06:44 | NUR ---
Critical hct of 20.8 and plt of 24 called by lab at 0542 and critical lactic acid of 5.9 called by lab at 0620. Dr. Borja paged at 0600 and paged again at 06. Page returned and updated on patient condition and critical labs at 0626. No new orders received at this time.
--- NOTE | 2019-01-20 07:02 | PDOC ---
Infectious Disease Note Subjective: Subjective pt intubated,sedated fio2 100% Peep 14 Vital Signs: Vital Signs Vital Signs Date Time Temp Pulse Resp B/P (MAP) Pulse Ox O2 Delivery O2 Flow Rate FiO2 01/20/19 06:00 93 24 112/50 (70) 97 Ventilator 01/20/19 04:00 98.0 98.0 01/19/19 17:43 2.0 Physical Exam: PHYSICAL EXAM GENERAL: Orally intubated and sedated, CRRT HEENT: Icteric, Pupils equal, ETT and OGT LUNGS: Right-sided rhonchi HEART: S1 S2 regular ABDOMEN: Obese, soft, hypoactive BS : - Pollard EXTREMITIES:gen edema, LLE ecchymosis. SKIN: Warm to touch. No rash NEUROLOGIC: Sedated RIJ and Temp RIJ/HDC (01/13) clean PIV Medications: Inpatient Meds: Current Medications Medications (Trade) Dose Ordered Sig/Quyen Start Time Stop Time Status Last Admin Dose Admin Acetaminophen (Tylenol Supp) 650 mg PRN Q6HRS PRN 01/08/19 18:15 01/09/19 23:44 650 MG Acetaminophen (Tylenol) 650 mg PRN Q6HRS PRN 01/12/19 16:30 01/14/19 09:11 650 MG Albumin Human 100 ml @ As Directed STK-MED ONCE 01/19/19 17:00 01/19/19 17:00 DC Artificial Tears (Artificial Tears) 1 drop Q4H PRN 01/14/19 15:30 01/14/19 16:43 1 DROP Benzocaine (Hurricaine One) 2 spray STK-MED ONCE 01/07/19 12:00 01/08/19 14:20 DC Bisacodyl (Dulcolax Supp) 10 mg 1X ONCE 01/13/19 11:00 01/13/19 11:01 DC 01/13/19 10:14 10 MG Calcium Chloride 12.5 meq/ Magnesium Sulfate 2.5 meq/Potassium Chloride 10 meq/ Sodium Bicarbonate 40 meq/Bicarbonate Dialysis Soln w/ out KCl 5,054.5443 ml @ 500 mls/hr Q10H7M 01/18/19 18:00 01/19/19 07:48 DC 01/19/19 05:16 500 MLS/HR Calcium Chloride 12.5 meq/ Potassium Chloride 5 meq/ Sodium Bicarbonate 40 meq/Bicarbonate Dialysis Soln w/ out KCl 5,051.4286 ml @ 500 mls/hr Q10H7M 01/19/19 15:00 01/20/19 03:09 500 MLS/HR Clonidine HCl (Catapres) 0.1 mg PRN Q1HR PRN 01/08/19 07:15 Daptomycin 500 mg/ Sodium Chloride 50 ml @ 100 mls/hr Q48H 01/16/19 09:00 01/18/19 09:11 100 MLS/HR Darbepoetin Giorgi (ARANESP for DIALYSIS PTS) 60 mcg WEEKLYHS 01/13/19 21:00 01/13/19 20:46 60 MCG Dexmedetomidine HCl 400 mcg/ Sodium Chloride 100 ml @ 0 mls/hr CONT PRN 01/14/19 11:30 01/20/19 03:24 26.5 MLS/HR Dextrose (Dextrose 50%-Water Syringe) 12.5 gm PRN Q15MIN PRN 01/09/19 10:30 01/18/19 22:35 25 GM Diphenhydramine HCl (Benadryl) 25 mg PRN Q15MIN PRN 01/08/19 07:15 Docusate Sodium (Enemeez) 283 mg 1X ONCE 01/13/19 16:45 01/13/19 16:47 DC 01/13/19 17:14 283 MG Epinephrine HCl 4 mg/Sodium Chloride 254 ml @ 41.822 mls/ hr CONT PRN 01/18/19 16:15 01/19/19 18:00 DC Epinephrine HCl 8 mg/Sodium Chloride 258 ml @ 20.9 mls/hr CONT PRN 01/19/19 14:15 Fentanyl Citrate (Fentanyl 2ml Vial) 100 mcg 1X ONCE 01/08/19 09:45 01/08/19 09:46 DC 01/08/19 09:42 100 MCG Fentanyl Citrate (Fentanyl 600 Mcg/30 ml [employer]ONENTS INSPECTOR) 600 mcg STK-MED ONCE 01/08/19 15:25 01/09/19 10:27 DC Haloperidol Lactate (Haldol Inj) 5 mg PRN Q4HRS PRN 01/08/19 07:15 Heparin Sodium (Porcine) (Heparin Sodium) 10,000 unit STK-MED ONCE 01/13/19 10:59 01/13/19 11:00 DC Info (PHARMACY MONITORING -- do not chart) 1 each PRN DAILY PRN 01/15/19 10:00 01/15/19 10:57 DC Info (Tpn Per Pharmacy) 1 each PRN DAILY PRN 01/13/19 11:15 01/19/19 13:05 1 EACH Insulin Human Lispro (HumaLOG) 0-9 UNITS TIDWMEALS 01/09/19 12:00 01/19/19 17:21 4 UNITS Lactobacillus Rhamnosus (Culturelle) 1 cap BID 01/08/19 21:00 01/09/19 09:29 DC Lactulose (LACTULOSE 300ML for RECTAL) 200 gm Q6HRS 01/09/19 12:00 01/09/19 11:04 DC Lactulose (Lactulose) 20 gm TID 01/13/19 10:00 01/14/19 21:01 20 GM Levofloxacin/ Dextrose 100 ml @ 100 mls/hr Q24H 01/14/19 09:00 01/19/19 08:14 100 MLS/HR Lidocaine HCl (Buffered Lidocaine 1%) 3 ml 1X ONCE 01/13/19 11:00 01/13/19 11:01 DC 01/13/19 11:00 3 ML Lidocaine HCl (Xylocaine 2% Topical 5gm Tube) 5 amanda STK-MED ONCE 01/07/19 12:00 01/08/19 14:20 DC Linezolid/Dextrose 300 ml @ 300 mls/hr Q12HR 01/11/19 13:00 01/16/19 08:29 DC 01/16/19 08:26 300 MLS/HR Lorazepam (Ativan Inj) 4 mg PRN Q1HR PRN 01/08/19 07:15 01/15/19 08:40 4 MG Meropenem 1 gm/ Sodium Chloride 50 ml @ 100 mls/hr Q12H 01/20/19 02:00 01/20/19 02:22 100 MLS/HR Meropenem 500 mg/ Sodium Chloride 50 ml @ 100 mls/hr Q8HRS 01/18/19 14:00 01/19/19 09:24 DC 01/19/19 06:02 100 MLS/HR Methylprednisolone Sodium Succinate (SOLU-Medrol 125MG VIAL) 125 mg STK-MED ONCE 01/18/19 16:26 12/1/19 16:26 DC Metoclopramide HCl (Reglan Vial) 5 mg 1X ONCE 01/14/19 10:30 01/14/19 10:31 DC 01/14/19 10:51 5 MG Midazolam HCl 100 ml @ 5 mls/hr CONT PRN 01/08/19 11:15 01/19/19 23:11 7 MLS/HR Midazolam HCl (Versed) 5 mg 1X ONCE 01/08/19 09:45 01/08/19 09:46 DC 01/08/19 09:41 5 MG Morphine Sulfate (Morphine Sulfate) 2 mg PRN Q2HR PRN 01/08/19 09:15 Multi-Ingred Cream/Lotion/Oil/ Oint (Artificial Tears Eye Ointment) 1 amanda PRN Q1HR PRN 01/13/19 16:45 01/13/19 17:14 1 AMANDA Multivitamins 10 ml/Thiamine HCl 100 mg/Folic Acid 1 mg/Sodium Chloride 1,011.2 ml @ 100 mls/ hr DAILY 01/08/19 09:00 01/12/19 19:07 DC 01/12/19 10:29 100 MLS/HR Naloxone HCl (Narcan) 0.4 mg PRN Q2MIN PRN 01/08/19 09:00 Norepinephrine Bitartrate 250 ml @ 18.938 mls/ hr CONT PRN 01/09/19 01:45 01/19/19 11:30 DC 01/19/19 06:31 28.406 MLS/HR Norepinephrine Bitartrate 32 mg/ Sodium Chloride 250 ml @ 7 mls/hr CONT PRN 01/19/19 11:30 01/19/19 14:15 5.344 MLS/HR Octreotide Acetate 500 mcg/ Sodium Chloride 101 ml @ 0 mls/hr CONT PRN 01/08/19 09:00 01/08/19 16:55 DC 01/08/19 13:56 10.1 MLS/HR Ondansetron HCl (Zofran) 4 mg PRN Q6HRS PRN 01/08/19 09:15 Pantoprazole Sodium (PROTONIX VIAL for IV PUSH) 40 mg DAILYAC 01/10/19 07:30 01/19/19 07:44 40 MG Pantoprazole Sodium 80 mg/ Sodium Chloride 100 ml @ 10 mls/hr Q10H 01/08/19 06:00 01/09/19 11:00 DC 01/09/19 02:00 10 MLS/HR Perflutren Protein Type A Microsphe (Optison) 0.66 mg 1X ONCE 01/11/19 13:30 01/11/19 13:31 DC Phytonadione (Vitamin K Ampule) 10 mg 1X ONCE 01/08/19 09:15 01/08/19 09:16 DC 01/08/19 09:56 10 MG Piperacillin Sod/ Tazobactam Sod (Zosyn Per Pharmacy) 1 each PRN DAILY PRN 01/07/19 21:00 01/18/19 12:16 DC Piperacillin Sod/ Tazobactam Sod 3.375 gm/Sodium Chloride 50 ml @ 100 mls/hr Q6HRS 01/07/19 22:00 01/18/19 12:16 DC 01/18/19 05:54 100 MLS/HR Potassium Bicarbonate (Potassium Effervescent Tablet) 40 meq BIDWMEALS 01/10/19 09:00 01/11/19 09:20 DC 01/10/19 17:49 40 MEQ Potassium Chloride 20 meq/ Bicarbonate Dialysis Soln w/ out KCl 5,010 ml @ 1,200 mls/hr Q4H11M 01/15/19 19:00 01/17/19 15:00 DC 01/17/19 00:17 1,200 MLS/HR Potassium Chloride 20 meq/ Sodium Bicarbonate 40 meq/Bicarbonate Dialysis Soln w/ out KCl 5,050 ml @ 1,200 mls/hr Q4H13M 01/17/19 15:00 01/18/19 09:51 DC 01/18/19 06:01 1,200 MLS/HR Potassium Chloride/Sodium Chloride 1,000 ml @ 75 mls/hr 1X ONCE 01/07/19 21:30 01/08/19 10:49 DC 01/07/19 21:16 75 MLS/HR Potassium Phosphate 20 mmol/ Sodium Chloride 256.6667 ml @ 128.... 1X ONCE 01/20/19 06:15 01/20/19 08:14 01/20/19 06:19 128.333 MLS/HR Potassium Chloride (Klor-Con) 40 meq 1X ONCE 01/09/19 09:45 01/09/19 09:46 DC 01/09/19 11:34 40 MEQ Propofol 100 ml @ 1.524 mls/ hr CONT PRN 01/08/19 09:45 01/14/19 03:56 9.147 MLS/HR Sodium Acetate 40 meq/Potassium Acetate 30 meq/ Calcium Gluconate 10 meq/ Multivitamins 10 ml/Chromium/ Copper/Manganese/ Seleni/Zn 1 ml/ Total Parenteral Nutrition/Amino Acids/Dextrose/ Fat Emulsion Intravenous 1,512 ml @ 63 mls/hr TPN CONT 01/13/19 22:00 01/14/19 21:59 DC 01/13/19 21:54 63 MLS/HR Sodium Bicarbonate (Sodium Bicarb Adult 8.4% Syr) 100 meq 1X ONCE 01/15/19 08:30 01/15/19 08:31 DC 01/15/19 08:31 100 MEQ Sodium Chloride 30 meq/Sodium Acetate 40 meq/ Potassium Acetate 30 meq/Calcium Gluconate 10 meq/ Multivitamins 10 ml/Chromium/ Copper/Manganese/ Seleni/Zn 1 ml/ Total Parenteral Nutrition/Amino Acids/Dextrose/ Fat Emulsion Intravenous 1,512 ml @ 63 mls/hr TPN CONT 01/14/19 22:00 01/15/19 21:59 DC 01/15/19 00:05 63 MLS/HR Sodium Chloride 40 meq/Sodium Acetate 40 meq/ Calcium Gluconate 10 meq/ Multivitamins 10 ml/Chromium/ Copper/Manganese/ Seleni/Zn 1 ml/ Thiamine HCl 100 mg/Total Parenteral Nutrition/Amino Acids/Dextrose/ Fat Emulsion Intravenous 1,512 ml @ 63 mls/hr TPN CONT 01/15/19 22:00 01/16/19 21:59 DC 01/15/19 21:45 63 MLS/HR Sodium Chloride 40 meq/Sodium Acetate 40 meq/ Potassium Acetate 10 meq/Calcium Gluconate 10 meq/ Multivitamins 10 ml/Chromium/ Copper/Manganese/ Seleni/Zn 1 ml/ Thiamine HCl 100 mg/Total Parenteral Nutrition/Amino Acids/Dextrose/ Fat Emulsion Intravenous 1,512 ml @ 63 mls/hr TPN CONT 01/15/19 22:00 01/15/19 14:18 DC Sodium Chloride 40 meq/Sodium Acetate 40 meq/ Potassium Acetate 10 meq/Calcium Gluconate 10 meq/ Multivitamins 10 ml/Chromium/ Copper/Manganese/ Seleni/Zn 1 ml/ Total Parenteral Nutrition/Amino Acids/Dextrose/ Fat Emulsion Intravenous 1,512 ml @ 63 mls/hr TPN CONT 01/15/19 22:00 01/15/19 11:06 DC Sodium Chloride 60 meq/Sodium Acetate 40 meq/ Calcium Gluconate 10 meq/ Multivitamins 10 ml/Chromium/ Copper/Manganese/ Seleni/Zn 1 ml/ Thiamine HCl 100 mg/Total Parenteral Nutrition/Amino Acids/Dextrose/ Fat Emulsion Intravenous 1,512 ml @ 63 mls/hr TPN CONT 01/16/19 22:00 01/18/19 10:50 DC 01/16/19 22:00 63 MLS/HR Sodium Chloride 80 meq/Calcium Gluconate 10 meq/ Multivitamins 10 ml/Chromium/ Copper/Manganese/ Seleni/Zn 1 ml/ Thiamine HCl 100 mg/Total Parenteral Nutrition/Amino Acids/Dextrose/ Fat Emulsion Intravenous 1,200 ml @ 50 mls/hr TPN CONT 01/19/19 22:00 01/19/19 21:30 50 MLS/HR Succinylcholine Chloride (Anectine) 200 mg 1X ONCE 01/08/19 09:45 01/08/19 09:46 DC 01/08/19 09:41 200 MG Tramadol HCl (Ultram) 50 mg PRN Q6HRS PRN 01/08/19 09:15 Vancomycin HCl (Vanco Per Pharmacy) 1 each PRN DAILY PRN 01/07/19 21:00 01/08/19 06:39 DC 01/08/19 00:43 1 EACH Vancomycin HCl (Vancomycin Trough Level) 1 each 1X ONCE 01/09/19 09:30 01/09/19 09:31 Cancel Vancomycin HCl 1.5 gm/Sodium Chloride 500 ml @ 250 mls/hr Q12H 01/08/19 10:00 01/08/19 06:39 DC Vancomycin HCl 2 gm/Sodium Chloride 500 ml @ 250 mls/hr 1X ONCE 01/07/19 22:00 01/07/19 23:59 DC 01/07/19 22:11 250 MLS/HR Vasopressin 40 unit/Dextrose 102 ml @ 6 mls/hr CONT PRN 01/15/19 10:00 01/20/19 06:19 6 MLS/HR Vecuronium [place] (Norcuron Bolus) 6 mg PRN Q4HRS PRN 01/08/19 12:00 01/18/19 11:14 6 MG Labs: Lab Laboratory Tests Test 01/19/19 07:59 01/19/19 08:00 01/19/19 09:40 01/19/19 12:52 Glucose (Fingerstick) 182 mg/dL (70-99) Sodium Level 140 mmol/L (136-145) 142 mmol/L (136-145) Potassium Level 4.8 mmol/L (3.5-5.1) 4.2 mmol/L (3.5-5.1) Chloride Level 101 mmol/L (98-107) 102 mmol/L (98-107) Carbon Dioxide Level 24 mmol/L (21-32) 27 mmol/L (21-32) Anion Gap 15 (6-14) 13 (6-14) Blood Urea Nitrogen 29 mg/dL (8-26) 32 mg/dL (8-26) Creatinine 1.3 mg/dL (0.7-1.3) 1.3 mg/dL (0.7-1.3) Estimated GFR (Cockcroft-Gault) 61.8 61.8 BUN/Creatinine Ratio 22 (6-20) Glucose Level 202 mg/dL (70-99) 202 mg/dL (70-99) Lactic Acid Level 9.3 mmol/L (0.4-2.0) 8.2 mmol/L (0.4-2.0) Calcium Level 7.1 mg/dL (8.5-10.1) 7.2 mg/dL (8.5-10.1) Total Bilirubin 15.2 mg/dL (0.2-1.0) Aspartate Amino Transf (AST/SGOT) 349 U/L (15-37) Alanine Aminotransferase (ALT/SGPT) 84 U/L (16-63) Alkaline Phosphatase 178 U/L (46-116) Total Protein 6.5 g/dL (6.4-8.2) Albumin 3.7 g/dL (3.4-5.0) Albumin/Globulin Ratio 1.3 (1.0-1.7) O2 Saturation 95 % (92-99) Arterial Blood pH 7.31 (7.35-7.45) Arterial Blood pCO2 at Patient Temp 42 mmHg (35-46) Arterial Blood pO2 at Patient Temp 79 mmHg (85-108) Arterial Blood HCO3 21 mmol/L (21-28) Arterial Blood Base Excess -5 mmol/L (-3-3) FiO2 100 Platelet Count 28 x10^3/uL (140-400) Prothrombin Time 24.4 SEC (11.7-14.0) Prothromb Time International Ratio 2.2 (0.8-1.1) Activated Partial Thromboplast Time 36 SEC (24-38) Fibrinogen 112 mg/dL (200-440) D-Dimer (Yudi) > 20.00 ug/mlFEU Phosphorus Level 1.9 mg/dL (2.6-4.7) Magnesium Level 2.1 mg/dL (1.8-2.4) Test 01/19/19 17:19 01/19/19 20:45 01/20/19 05:15 Glucose (Fingerstick) 169 mg/dL (70-99) Sodium Level 142 mmol/L (136-145) 142 mmol/L (136-145) Potassium Level 4.2 mmol/L (3.5-5.1) 4.1 mmol/L (3.5-5.1) Chloride Level 103 mmol/L (98-107) 103 mmol/L (98-107) Carbon Dioxide Level 28 mmol/L (21-32) 29 mmol/L (21-32) Anion Gap 11 (6-14) 10 (6-14) Blood Urea Nitrogen 32 mg/dL (8-26) 39 mg/dL (8-26) Creatinine 1.2 mg/dL (0.7-1.3) 1.3 mg/dL (0.7-1.3) Estimated GFR (Cockcroft-Gault) 67.8 61.8 Glucose Level 164 mg/dL (70-99) 178 mg/dL (70-99) Calcium Level 7.2 mg/dL (8.5-10.1) 7.1 mg/dL (8.5-10.1) Phosphorus Level 1.7 mg/dL (2.6-4.7) 1.5 mg/dL (2.6-4.7) Magnesium Level 2.0 mg/dL (1.8-2.4) 1.9 mg/dL (1.8-2.4) White Blood Count 12.0 x10^3/uL (4.0-11.0) Red Blood Count 2.15 x10^6/uL (4.30-5.70) Hemoglobin 7.2 g/dL (13.0-17.5) Hematocrit 20.8 % (39.0-53.0) Mean Corpuscular Volume 97 fL (79-100) Mean Corpuscular Hemoglobin 33 pg (25-35) Mean Corpuscular Hemoglobin Concent 35 g/dL (31-37) Red Cell Distribution Width 20.5 % (11.5-14.5) Platelet Count 24 x10^3/uL (140-400) Neutrophils (%) (Auto) 82 % (31-73) Lymphocytes (%) (Auto) 11 % (24-48) Monocytes (%) (Auto) 6 % (0-9) Eosinophils (%) (Auto) 0 % (0-3) Basophils (%) (Auto) 1 % (0-3) Neutrophils # (Auto) 9.8 x10^3/uL (1.8-7.7) Lymphocytes # (Auto) 1.4 x10^3/uL (1.0-4.8) Monocytes # (Auto) 0.8 x10^3/uL (0.0-1.1) Eosinophils # (Auto) 0.0 x10^3/uL (0.0-0.7) Basophils # (Auto) 0.1 x10^3/uL (0.0-0.2) Prothrombin Time 22.0 SEC (11.7-14.0) Prothromb Time International Ratio 2.0 (0.8-1.1) BUN/Creatinine Ratio 30 (6-20) Lactic Acid Level 5.9 mmol/L (0.4-2.0) Total Bilirubin 16.2 mg/dL (0.2-1.0) Aspartate Amino Transf (AST/SGOT) 250 U/L (15-37) Alanine Aminotransferase (ALT/SGPT) 75 U/L (16-63) Alkaline Phosphatase 203 U/L (46-116) Total Protein 6.1 g/dL (6.4-8.2) Albumin 3.4 g/dL (3.4-5.0) Albumin/Globulin Ratio 1.3 (1.0-1.7) Objective: Assessment: Hypotension on pressors Fever - curve improving ? ID vs PRBCs vs reactive vs Withdrawl - improved , uc neg, bc neg, sputum neg Leukocytosis - ? reactive, improved Thrombocytopenia ,coagulopathy Lactic acidosis Resp failure s/p intubation. + mycoplasma (01/14) DOMONIQUE on CRRT GI Bleed - s/p EGD 01/08 - Reflux esophagitis. ? recent M-W tear. Alcoholic gastritis. Anemia Liver cirrhosis with small ascites.Hyperbilirubinemia Alcoholic hepatitis - Hep C Ab positive, PCR negative. GI following ? pancreatitis. Lipase improved Rhabdo CK 965 Heavy ETOH abuse Left leg ecchymosis Pyuria UC negative Plan: Plan of Care Dapto, Merrem. and Levaquin, renally adjusted.Pharmacy assisting f/u cultures Supportive care Critically ill Prognosis poor D/W family and RN DAVID ALEXIS MD Jan 20, 2019 07:02
--- NOTE | 2019-01-20 07:20 | PDOC ---
SUBJECTIVE ROS Intubated, sedated Remains orally intubated,on very low dose of pressors Tolerating CRRT OBJECTIVE Vital Signs Vital Signs Date Time Temp Pulse Resp B/P (MAP) Pulse Ox O2 Delivery O2 Flow Rate FiO2 01/20/19 06:00 93 24 112/50 (70) 97 Ventilator 01/20/19 04:00 98.0 98.0 01/19/19 17:43 2.0 I & 0 Intake and Output 01/20/19 07:00 Intake Total 3346.667 ml Output Total 10 ml Balance 3336.667 ml IV Total 3346.667 ml Output Urine Total 10 ml PHYSICAL EXAM Physical Exam GENERAL: Orally intubated and sedated, CRRT HEENT: Icteric, Pupils equal, ETT and OGT LUNGS: Right-sided rhonchi HEART: S1 S2 regular ABDOMEN: Obese, soft, hypoactive BS : - Pollard + EXTREMITIES:gen edema, LLE ecchymosis. SKIN: Warm to touch. No rash NEUROLOGIC: Sedated Temp RIJ/HDC (01/13) DIAGNOSIS/ASSESSMENT Assessment & Plan DOMONIQUE/ ATN: DOMONIQUE had improved initially, developed anuric DOMONIQUE Anuric seen on CRRT , tolerating UF , continue as ordered, Daryl RN Supportive care, Avoid Nephrotoxins, Monitor Hypotension - BP better Thrombocytopenia -Coagulopathy Hem/Onc consulted Resp failure s/p intubation. + mycoplasma (01/14) GI Bleed - s/p EGD 01/08 - Reflux esophagitis. ? recent M-W tear. Alcoholic gastritis. Anemia Cirrhosis /Alcoholic hepatitis - Hep C Ab positive, GI following Heavy ETOH abuse D/w n and mother COMMENT/RELEVANT DATA Meds Current Medications Medications (Trade) Dose Ordered Sig/Quyen Start Time Stop Time Status Last Admin Dose Admin Acetaminophen (Tylenol Supp) 650 mg PRN Q6HRS PRN 01/08/19 18:15 01/09/19 23:44 650 MG Acetaminophen (Tylenol) 650 mg PRN Q6HRS PRN 01/12/19 16:30 01/14/19 09:11 650 MG Albumin Human 100 ml @ As Directed STK-MED ONCE 01/19/19 17:00 01/19/19 17:00 DC Artificial Tears (Artificial Tears) 1 drop Q4H PRN 01/14/19 15:30 01/14/19 16:43 1 DROP Benzocaine (Hurricaine One) 2 spray STK-MED ONCE 01/07/19 12:00 01/08/19 14:20 DC Bisacodyl (Dulcolax Supp) 10 mg 1X ONCE 01/13/19 11:00 01/13/19 11:01 DC 01/13/19 10:14 10 MG Calcium Chloride 12.5 meq/ Magnesium Sulfate 2.5 meq/Potassium Chloride 10 meq/ Sodium Bicarbonate 40 meq/Bicarbonate Dialysis Soln w/ out KCl 5,054.5443 ml @ 500 mls/hr Q10H7M 01/18/19 18:00 01/19/19 07:48 DC 01/19/19 05:16 500 MLS/HR Calcium Chloride 12.5 meq/ Potassium Chloride 5 meq/ Sodium Bicarbonate 40 meq/Bicarbonate Dialysis Soln w/ out KCl 5,051.4286 ml @ 500 mls/hr Q10H7M 01/19/19 15:00 01/20/19 03:09 500 MLS/HR Clonidine HCl (Catapres) 0.1 mg PRN Q1HR PRN 01/08/19 07:15 Daptomycin 500 mg/ Sodium Chloride 50 ml @ 100 mls/hr Q48H 01/16/19 09:00 01/18/19 09:11 100 MLS/HR Darbepoetin Giorgi (ARANESP for DIALYSIS PTS) 60 mcg WEEKLYHS 01/13/19 21:00 01/13/19 20:46 60 MCG Dexmedetomidine HCl 400 mcg/ Sodium Chloride 100 ml @ 0 mls/hr CONT PRN 01/14/19 11:30 01/20/19 03:24 26.5 MLS/HR Dextrose (Dextrose 50%-Water Syringe) 12.5 gm PRN Q15MIN PRN 01/09/19 10:30 01/18/19 22:35 25 GM Diphenhydramine HCl (Benadryl) 25 mg PRN Q15MIN PRN 01/08/19 07:15 Docusate Sodium (Enemeez) 283 mg 1X ONCE 01/13/19 16:45 01/13/19 16:47 DC 01/13/19 17:14 283 MG Epinephrine HCl 4 mg/Sodium Chloride 254 ml @ 41.822 mls/ hr CONT PRN 01/18/19 16:15 01/19/19 18:00 DC Epinephrine HCl 8 mg/Sodium Chloride 258 ml @ 20.9 mls/hr CONT PRN 01/19/19 14:15 Fentanyl Citrate (Fentanyl 2ml Vial) 100 mcg 1X ONCE 01/08/19 09:45 01/08/19 09:46 DC 01/08/19 09:42 100 MCG Fentanyl Citrate (Fentanyl 600 Mcg/30 ml TUBE HEATER) 600 mcg STK-MED ONCE 01/08/19 15:25 01/09/19 10:27 DC Haloperidol Lactate (Haldol Inj) 5 mg PRN Q4HRS PRN 01/08/19 07:15 Heparin Sodium (Porcine) (Heparin Sodium) 10,000 unit STK-MED ONCE 01/13/19 10:59 01/13/19 11:00 DC Info (PHARMACY MONITORING -- do not chart) 1 each PRN DAILY PRN 01/15/19 10:00 01/15/19 10:57 DC Info (Tpn Per Pharmacy) 1 each PRN DAILY PRN 01/13/19 11:15 01/19/19 13:05 1 EACH Insulin Human Lispro (HumaLOG) 0-9 UNITS TIDWMEALS 01/09/19 12:00 01/19/19 17:21 4 UNITS Lactobacillus Rhamnosus (Culturelle) 1 cap BID 01/08/19 21:00 01/09/19 09:29 DC Lactulose (LACTULOSE 300ML for RECTAL) 200 gm Q6HRS 01/09/19 12:00 01/09/19 11:04 DC Lactulose (Lactulose) 20 gm TID 01/13/19 10:00 01/14/19 21:01 20 GM Levofloxacin/ Dextrose 100 ml @ 100 mls/hr Q24H 01/14/19 09:00 01/19/19 08:14 100 MLS/HR Lidocaine HCl (Buffered Lidocaine 1%) 3 ml 1X ONCE 01/13/19 11:00 01/13/19 11:01 DC 01/13/19 11:00 3 ML Lidocaine HCl (Xylocaine 2% Topical 5gm Tube) 5 amanda STK-MED ONCE 01/07/19 12:00 01/08/19 14:20 DC Linezolid/Dextrose 300 ml @ 300 mls/hr Q12HR 01/11/19 13:00 01/16/19 08:29 DC 01/16/19 08:26 300 MLS/HR Lorazepam (Ativan Inj) 4 mg PRN Q1HR PRN 01/08/19 07:15 01/15/19 08:40 4 MG Meropenem 1 gm/ Sodium Chloride 50 ml @ 100 mls/hr Q12H 01/20/19 02:00 01/20/19 02:22 100 MLS/HR Meropenem 500 mg/ Sodium Chloride 50 ml @ 100 mls/hr Q8HRS 01/18/19 14:00 01/19/19 09:24 DC 01/19/19 06:02 100 MLS/HR Methylprednisolone Sodium Succinate (SOLU-Medrol 125MG VIAL) 125 mg STK-MED ONCE 01/18/19 16:26 01/18/19 16:26 DC Metoclopramide HCl (Reglan Vial) 5 mg 1X ONCE 01/14/19 10:30 01/14/19 10:31 DC 01/14/19 10:51 5 MG Midazolam HCl 100 ml @ 5 mls/hr CONT PRN 01/08/19 11:15 01/19/19 23:11 7 MLS/HR Midazolam HCl (Versed) 5 mg 1X ONCE 01/08/19 09:45 01/08/19 09:46 DC 01/08/19 09:41 5 MG Morphine Sulfate (Morphine Sulfate) 2 mg PRN Q2HR PRN 01/08/19 09:15 Multi-Ingred Cream/Lotion/Oil/ Oint (Artificial Tears Eye Ointment) 1 amanda PRN Q1HR PRN 01/13/19 16:45 01/13/19 17:14 1 AMANDA Multivitamins 10 ml/Thiamine HCl 100 mg/Folic Acid 1 mg/Sodium Chloride 1,011.2 ml @ 100 mls/ hr DAILY 01/08/19 09:00 01/12/19 19:07 DC 01/12/19 10:29 100 MLS/HR Naloxone HCl (Narcan) 0.4 mg PRN Q2MIN PRN 01/08/19 09:00 Norepinephrine Bitartrate 250 ml @ 18.938 mls/ hr CONT PRN 01/09/19 01:45 01/19/19 11:30 DC 01/19/19 06:31 28.406 MLS/HR Norepinephrine Bitartrate 32 mg/ Sodium Chloride 250 ml @ 7 mls/hr CONT PRN 01/19/19 11:30 01/19/19 14:15 5.344 MLS/HR Octreotide Acetate 500 mcg/ Sodium Chloride 101 ml @ 0 mls/hr CONT PRN 01/08/19 09:00 01/08/19 16:55 DC 01/08/19 13:56 10.1 MLS/HR Ondansetron HCl (Zofran) 4 mg PRN Q6HRS PRN 01/08/19 09:15 Pantoprazole Sodium (PROTONIX VIAL for IV PUSH) 40 mg DAILYAC 01/10/19 07:30 01/19/19 07:44 40 MG Pantoprazole Sodium 80 mg/ Sodium Chloride 100 ml @ 10 mls/hr Q10H 01/08/19 06:00 01/09/19 11:00 DC 01/09/19 02:00 10 MLS/HR Perflutren Protein Type A Microsphe (Optison) 0.66 mg 1X ONCE 01/11/19 13:30 01/11/19 13:31 DC Phytonadione (Vitamin K Ampule) 10 mg 1X ONCE 01/08/19 09:15 01/08/19 09:16 DC 01/08/19 09:56 10 MG Piperacillin Sod/ Tazobactam Sod (Zosyn Per Pharmacy) 1 each PRN DAILY PRN 01/07/19 21:00 01/18/19 12:16 DC Piperacillin Sod/ Tazobactam Sod 3.375 gm/Sodium Chloride 50 ml @ 100 mls/hr Q6HRS 01/07/19 22:00 01/18/19 12:16 DC 01/18/19 05:54 100 MLS/HR Potassium Bicarbonate (Potassium Effervescent Tablet) 40 meq BIDWMEALS 01/10/19 09:00 01/11/19 09:20 DC 01/10/19 17:49 40 MEQ Potassium Chloride 20 meq/ Bicarbonate Dialysis Soln w/ out KCl 5,010 ml @ 1,200 mls/hr Q4H11M 01/15/19 19:00 01/17/19 15:00 DC 01/17/19 00:17 1,200 MLS/HR Potassium Chloride 20 meq/ Sodium Bicarbonate 40 meq/Bicarbonate Dialysis Soln w/ out KCl 5,050 ml @ 1,200 mls/hr Q4H13M 01/17/19 15:00 01/18/19 09:51 DC 01/18/19 06:01 1,200 MLS/HR Potassium Chloride/Sodium Chloride 1,000 ml @ 75 mls/hr 1X ONCE 01/07/19 21:30 01/08/19 10:49 DC 01/07/19 21:16 75 MLS/HR Potassium Phosphate 20 mmol/ Sodium Chloride 256.6667 ml @ 128.... 1X ONCE 01/20/19 06:15 01/20/19 08:14 01/20/19 06:19 128.333 MLS/HR Potassium Chloride (Klor-Con) 40 meq 1X ONCE 01/09/19 09:45 01/09/19 09:46 DC 01/09/19 11:34 40 MEQ Propofol 100 ml @ 1.524 mls/ hr CONT PRN 01/08/19 09:45 01/14/19 03:56 9.147 MLS/HR Sodium Acetate 40 meq/Potassium Acetate 30 meq/ Calcium Gluconate 10 meq/ Multivitamins 10 ml/Chromium/ Copper/Manganese/ Seleni/Zn 1 ml/ Total Parenteral Nutrition/Amino Acids/Dextrose/ Fat Emulsion Intravenous 1,512 ml @ 63 mls/hr TPN CONT 01/13/19 22:00 01/14/19 21:59 DC 01/13/19 21:54 63 MLS/HR Sodium Bicarbonate (Sodium Bicarb Adult 8.4% Syr) 100 meq 1X ONCE 01/15/19 08:30 01/15/19 08:31 DC 01/15/19 08:31 100 MEQ Sodium Chloride 30 meq/Sodium Acetate 40 meq/ Potassium Acetate 30 meq/Calcium Gluconate 10 meq/ Multivitamins 10 ml/Chromium/ Copper/Manganese/ Seleni/Zn 1 ml/ Total Parenteral Nutrition/Amino Acids/Dextrose/ Fat Emulsion Intravenous 1,512 ml @ 63 mls/hr TPN CONT 01/14/19 22:00 01/15/19 21:59 DC 01/15/19 00:05 63 MLS/HR Sodium Chloride 40 meq/Sodium Acetate 40 meq/ Calcium Gluconate 10 meq/ Multivitamins 10 ml/Chromium/ Copper/Manganese/ Seleni/Zn 1 ml/ Thiamine HCl 100 mg/Total Parenteral Nutrition/Amino Acids/Dextrose/ Fat Emulsion Intravenous 1,512 ml @ 63 mls/hr TPN CONT 01/15/19 22:00 01/16/19 21:59 DC 01/15/19 21:45 63 MLS/HR Sodium Chloride 40 meq/Sodium Acetate 40 meq/ Potassium Acetate 10 meq/Calcium Gluconate 10 meq/ Multivitamins 10 ml/Chromium/ Copper/Manganese/ Seleni/Zn 1 ml/ Thiamine HCl 100 mg/Total Parenteral Nutrition/Amino Acids/Dextrose/ Fat Emulsion Intravenous 1,512 ml @ 63 mls/hr TPN CONT 01/15/19 22:00 01/15/19 14:18 DC Sodium Chloride 40 meq/Sodium Acetate 40 meq/ Potassium Acetate 10 meq/Calcium Gluconate 10 meq/ Multivitamins 10 ml/Chromium/ Copper/Manganese/ Seleni/Zn 1 ml/ Total Parenteral Nutrition/Amino Acids/Dextrose/ Fat Emulsion Intravenous 1,512 ml @ 63 mls/hr TPN CONT 01/15/19 22:00 01/15/19 11:06 DC Sodium Chloride 60 meq/Sodium Acetate 40 meq/ Calcium Gluconate 10 meq/ Multivitamins 10 ml/Chromium/ Copper/Manganese/ Seleni/Zn 1 ml/ Thiamine HCl 100 mg/Total Parenteral Nutrition/Amino Acids/Dextrose/ Fat Emulsion Intravenous 1,512 ml @ 63 mls/hr TPN CONT 01/16/19 22:00 01/18/19 10:50 DC 01/16/19 22:00 63 MLS/HR Sodium Chloride 80 meq/Calcium Gluconate 10 meq/ Multivitamins 10 ml/Chromium/ Copper/Manganese/ Seleni/Zn 1 ml/ Thiamine HCl 100 mg/Total Parenteral Nutrition/Amino Acids/Dextrose/ Fat Emulsion Intravenous 1,200 ml @ 50 mls/hr TPN CONT 01/19/19 22:00 01/19/19 21:30 50 MLS/HR Succinylcholine Chloride (Anectine) 200 mg 1X ONCE 01/08/19 09:45 01/08/19 09:46 DC 01/08/19 09:41 200 MG Tramadol HCl (Ultram) 50 mg PRN Q6HRS PRN 01/08/19 09:15 Vancomycin HCl (Vanco Per Pharmacy) 1 each PRN DAILY PRN 01/07/19 21:00 01/08/19 06:39 DC 01/08/19 00:43 1 EACH Vancomycin HCl (Vancomycin Trough Level) 1 each 1X ONCE 01/09/19 09:30 01/09/19 09:31 Cancel Vancomycin HCl 1.5 gm/Sodium Chloride 500 ml @ 250 mls/hr Q12H 01/08/19 10:00 01/08/19 06:39 DC Vancomycin HCl 2 gm/Sodium Chloride 500 ml @ 250 mls/hr 1X ONCE 01/07/19 22:00 01/07/19 23:59 DC 01/07/19 22:11 250 MLS/HR Vasopressin 40 unit/Dextrose 102 ml @ 6 mls/hr CONT PRN 01/15/19 10:00 01/20/19 06:19 6 MLS/HR Vecuronium [place] (Norcuron Bolus) 6 mg PRN Q4HRS PRN 01/08/19 12:00 01/18/19 11:14 6 MG Lab Laboratory Tests Test 01/19/19 07:59 01/19/19 08:00 01/19/19 09:40 01/19/19 12:52 Glucose (Fingerstick) 182 mg/dL (70-99) Sodium Level 140 mmol/L (136-145) 142 mmol/L (136-145) Potassium Level 4.8 mmol/L (3.5-5.1) 4.2 mmol/L (3.5-5.1) Chloride Level 101 mmol/L (98-107) 102 mmol/L (98-107) Carbon Dioxide Level 24 mmol/L (21-32) 27 mmol/L (21-32) Anion Gap 15 (6-14) 13 (6-14) Blood Urea Nitrogen 29 mg/dL (8-26) 32 mg/dL (8-26) Creatinine 1.3 mg/dL (0.7-1.3) 1.3 mg/dL (0.7-1.3) Estimated GFR (Cockcroft-Gault) 61.8 61.8 BUN/Creatinine Ratio 22 (6-20) Glucose Level 202 mg/dL (70-99) 202 mg/dL (70-99) Lactic Acid Level 9.3 mmol/L (0.4-2.0) 8.2 mmol/L (0.4-2.0) Calcium Level 7.1 mg/dL (8.5-10.1) 7.2 mg/dL (8.5-10.1) Total Bilirubin 15.2 mg/dL (0.2-1.0) Aspartate Amino Transf (AST/SGOT) 349 U/L (15-37) Alanine Aminotransferase (ALT/SGPT) 84 U/L (16-63) Alkaline Phosphatase 178 U/L (46-116) Total Protein 6.5 g/dL (6.4-8.2) Albumin 3.7 g/dL (3.4-5.0) Albumin/Globulin Ratio 1.3 (1.0-1.7) O2 Saturation 95 % (92-99) Arterial Blood pH 7.31 (7.35-7.45) Arterial Blood pCO2 at Patient Temp 42 mmHg (35-46) Arterial Blood pO2 at Patient Temp 79 mmHg (85-108) Arterial Blood HCO3 21 mmol/L (21-28) Arterial Blood Base Excess -5 mmol/L (-3-3) FiO2 100 Platelet Count 28 x10^3/uL (140-400) Prothrombin Time 24.4 SEC (11.7-14.0) Prothromb Time International Ratio 2.2 (0.8-1.1) Activated Partial Thromboplast Time 36 SEC (24-38) Fibrinogen 112 mg/dL (200-440) D-Dimer (Yudi) > 20.00 ug/mlFEU Phosphorus Level 1.9 mg/dL (2.6-4.7) Magnesium Level 2.1 mg/dL (1.8-2.4) Test 01/19/19 17:19 01/19/19 20:45 01/20/19 05:15 Glucose (Fingerstick) 169 mg/dL (70-99) Sodium Level 142 mmol/L (136-145) 142 mmol/L (136-145) Potassium Level 4.2 mmol/L (3.5-5.1) 4.1 mmol/L (3.5-5.1) Chloride Level 103 mmol/L (98-107) 103 mmol/L (98-107) Carbon Dioxide Level 28 mmol/L (21-32) 29 mmol/L (21-32) Anion Gap 11 (6-14) 10 (6-14) Blood Urea Nitrogen 32 mg/dL (8-26) 39 mg/dL (8-26) Creatinine 1.2 mg/dL (0.7-1.3) 1.3 mg/dL (0.7-1.3) Estimated GFR (Cockcroft-Gault) 67.8 61.8 Glucose Level 164 mg/dL (70-99) 178 mg/dL (70-99) Calcium Level 7.2 mg/dL (8.5-10.1) 7.1 mg/dL (8.5-10.1) Phosphorus Level 1.7 mg/dL (2.6-4.7) 1.5 mg/dL (2.6-4.7) Magnesium Level 2.0 mg/dL (1.8-2.4) 1.9 mg/dL (1.8-2.4) White Blood Count 12.0 x10^3/uL (4.0-11.0) Red Blood Count 2.15 x10^6/uL (4.30-5.70) Hemoglobin 7.2 g/dL (13.0-17.5) Hematocrit 20.8 % (39.0-53.0) Mean Corpuscular Volume 97 fL (79-100) Mean Corpuscular Hemoglobin 33 pg (25-35) Mean Corpuscular Hemoglobin Concent 35 g/dL (31-37) Red Cell Distribution Width 20.5 % (11.5-14.5) Platelet Count 24 x10^3/uL (140-400) Neutrophils (%) (Auto) 82 % (31-73) Lymphocytes (%) (Auto) 11 % (24-48) Monocytes (%) (Auto) 6 % (0-9) Eosinophils (%) (Auto) 0 % (0-3) Basophils (%) (Auto) 1 % (0-3) Neutrophils # (Auto) 9.8 x10^3/uL (1.8-7.7) Lymphocytes # (Auto) 1.4 x10^3/uL (1.0-4.8) Monocytes # (Auto) 0.8 x10^3/uL (0.0-1.1) Eosinophils # (Auto) 0.0 x10^3/uL (0.0-0.7) Basophils # (Auto) 0.1 x10^3/uL (0.0-0.2) Prothrombin Time 22.0 SEC (11.7-14.0) Prothromb Time International Ratio 2.0 (0.8-1.1) BUN/Creatinine Ratio 30 (6-20) Lactic Acid Level 5.9 mmol/L (0.4-2.0) Total Bilirubin 16.2 mg/dL (0.2-1.0) Aspartate Amino Transf (AST/SGOT) 250 U/L (15-37) Alanine Aminotransferase (ALT/SGPT) 75 U/L (16-63) Alkaline Phosphatase 203 U/L (46-116) Total Protein 6.1 g/dL (6.4-8.2) Albumin 3.4 g/dL (3.4-5.0) Albumin/Globulin Ratio 1.3 (1.0-1.7) Results All relevant outside records, renal labs, imaging studies, telemetry/EKG's were reviewed. GIANNI HAY MD Jan 20, 2019 07:20
[2019-01-20] MEDS: PANTOPRAZOLE IV PUSH 40 MG VIAL. IVP SCH (07:49)
[2019-01-20] MEDS: INSULIN LISPRO 300 UNITS/3 ML VIAL. SQ SCH ×3 (07:53→17:26)
[2019-01-20 07:54] LABS: BASE EXCESS ABG 0 mmol/L (-3-3); HCO3 ABG 25 mmol/L (21-28); PCO2 ABG 40 mmHg (35-46); PO2 ABG 58 mmHg (85-108); SAT O2 ABG 90 % (92-99)
[2019-01-20 07:55] LABS: FIO2 ABG 100
--- NOTE | 2019-01-20 08:19 | RAD ---
PORTABLE CHEST 1V Clinical indications: On ventilator. Follow up study. COMPARISON: January 19, 2019. Findings: Bilateral lung infiltrates or pulmonary edema are again evident. There has been moderate improvement on the right side. The left side is stable. There has been interval clearing of right-sided pleural effusion. Left-sided pleural effusion is unchanged. No pneumothorax is seen. There've been no interval tube or line changes. Heart size and mediastinum are stable. IMPRESSION: Persistent bilateral lung infiltrates or pulmonary edema with improvement of the right side. Electronically signed by: Yovani Antoine MD (01/20/2019 8:16 AM) [facility]
[2019-01-20] MEDS: IV NORMAL SALINE 1000ML BAG 1,000 ML IV SCH (08:54)
[2019-01-20] MEDS: LACTULOSE 20 GM/30 ML SOLUTION. PO SCH ×3 (09:00→21:00)
--- NOTE | 2019-01-20 09:01 | PDOC ---
PULMONARY PROGRESS NOTES Subjective PT ON PC V 100 % Vitals Vital Signs Date Time Temp Pulse Resp B/P (MAP) Pulse Ox O2 Delivery O2 Flow Rate FiO2 01/20/19 07:36 96 Ventilator 01/20/19 07:00 93 24 119/60 (79) 01/20/19 04:00 98.0 98.0 01/19/19 17:43 2.0 Lungs: Other (coarse bs bilaterally) Cardiovascular: S1, S2 Abdomen: Soft, Non-tender, Other (DISTENDED no mass) Extremities: Other (EDEMA) Skin: Warm Labs Laboratory Tests Test 01/18/19 14:00 01/18/19 21:45 01/18/19 22:43 01/18/19 23:29 Sodium Level 142 mmol/L (136-145) 142 mmol/L (136-145) Potassium Level 4.1 mmol/L (3.5-5.1) 5.0 mmol/L (3.5-5.1) Chloride Level 103 mmol/L (98-107) 102 mmol/L (98-107) Carbon Dioxide Level 23 mmol/L (21-32) 19 mmol/L (21-32) Anion Gap 16 (6-14) 21 (6-14) Blood Urea Nitrogen 30 mg/dL (8-26) 28 mg/dL (8-26) Creatinine 1.4 mg/dL (0.7-1.3) 1.4 mg/dL (0.7-1.3) Estimated GFR (Cockcroft-Gault) 56.7 56.7 Glucose Level 156 mg/dL (70-99) 37 mg/dL (70-99) Calcium Level 6.9 mg/dL (8.5-10.1) 6.9 mg/dL (8.5-10.1) Phosphorus Level 2.8 mg/dL (2.6-4.7) 5.0 mg/dL (2.6-4.7) Magnesium Level 2.3 mg/dL (1.8-2.4) 4.8 mg/dL (1.8-2.4) Glucose (Fingerstick) 126 mg/dL (70-99) 103 mg/dL (70-99) Test 01/19/19 04:30 01/19/19 07:59 01/19/19 08:00 01/19/19 09:40 White Blood Count 18.9 x10^3/uL (4.0-11.0) Red Blood Count 2.36 x10^6/uL (4.30-5.70) Hemoglobin 7.7 g/dL (13.0-17.5) Hematocrit 23.6 % (39.0-53.0) Mean Corpuscular Volume 100 fL (79-100) Mean Corpuscular Hemoglobin 33 pg (25-35) Mean Corpuscular Hemoglobin Concent 32 g/dL (31-37) Red Cell Distribution Width 21.5 % (11.5-14.5) Platelet Count 37 x10^3/uL (140-400) Neutrophils (%) (Auto) 88 % (31-73) Lymphocytes (%) (Auto) 8 % (24-48) Monocytes (%) (Auto) 3 % (0-9) Eosinophils (%) (Auto) 1 % (0-3) Basophils (%) (Auto) 1 % (0-3) Neutrophils # (Auto) 16.2 x10^3/uL (1.8-7.7) Lymphocytes # (Auto) 1.4 x10^3/uL (1.0-4.8) Monocytes # (Auto) 0.6 x10^3/uL (0.0-1.1) Eosinophils # (Auto) 0.1 x10^3/uL (0.0-0.7) Basophils # (Auto) 0.1 x10^3/uL (0.0-0.2) Prothrombin Time 23.7 SEC (11.7-14.0) Prothromb Time International Ratio 2.1 (0.8-1.1) Sodium Level 141 mmol/L (136-145) 140 mmol/L (136-145) Potassium Level 5.3 mmol/L (3.5-5.1) 4.8 mmol/L (3.5-5.1) Chloride Level 102 mmol/L (98-107) 101 mmol/L (98-107) Carbon Dioxide Level 22 mmol/L (21-32) 24 mmol/L (21-32) Anion Gap 17 (6-14) 15 (6-14) Blood Urea Nitrogen 28 mg/dL (8-26) 29 mg/dL (8-26) Creatinine 1.4 mg/dL (0.7-1.3) 1.3 mg/dL (0.7-1.3) Estimated GFR (Cockcroft-Gault) 56.7 61.8 Glucose Level 166 mg/dL (70-99) 202 mg/dL (70-99) Calcium Level 7.3 mg/dL (8.5-10.1) 7.1 mg/dL (8.5-10.1) Phosphorus Level 3.9 mg/dL (2.6-4.7) Magnesium Level 4.7 mg/dL (1.8-2.4) Albumin 3.6 g/dL (3.4-5.0) 3.7 g/dL (3.4-5.0) Triglycerides Level 167 mg/dL (0-150) Glucose (Fingerstick) 182 mg/dL (70-99) BUN/Creatinine Ratio 22 (6-20) Lactic Acid Level 9.3 mmol/L (0.4-2.0) Total Bilirubin 15.2 mg/dL (0.2-1.0) Aspartate Amino Transf (AST/SGOT) 349 U/L (15-37) Alanine Aminotransferase (ALT/SGPT) 84 U/L (16-63) Alkaline Phosphatase 178 U/L (46-116) Total Protein 6.5 g/dL (6.4-8.2) Albumin/Globulin Ratio 1.3 (1.0-1.7) O2 Saturation 95 % (92-99) Arterial Blood pH 7.31 (7.35-7.45) Arterial Blood pCO2 at Patient Temp 42 mmHg (35-46) Arterial Blood pO2 at Patient Temp 79 mmHg (85-108) Arterial Blood HCO3 21 mmol/L (21-28) Arterial Blood Base Excess -5 mmol/L (-3-3) FiO2 100 Test 01/19/19 12:52 01/19/19 17:19 01/19/19 20:45 01/20/19 05:15 Platelet Count 28 x10^3/uL (140-400) 24 x10^3/uL (140-400) Prothrombin Time 24.4 SEC (11.7-14.0) 22.0 SEC (11.7-14.0) Prothromb Time International Ratio 2.2 (0.8-1.1) 2.0 (0.8-1.1) Activated Partial Thromboplast Time 36 SEC (24-38) Fibrinogen 112 mg/dL (200-440) D-Dimer (Yudi) > 20.00 ug/mlFEU Sodium Level 142 mmol/L (136-145) 142 mmol/L (136-145) 142 mmol/L (136-145) Potassium Level 4.2 mmol/L (3.5-5.1) 4.2 mmol/L (3.5-5.1) 4.1 mmol/L (3.5-5.1) Chloride Level 102 mmol/L (98-107) 103 mmol/L (98-107) 103 mmol/L (98-107) Carbon Dioxide Level 27 mmol/L (21-32) 28 mmol/L (21-32) 29 mmol/L (21-32) Anion Gap 13 (6-14) 11 (6-14) 10 (6-14) Blood Urea Nitrogen 32 mg/dL (8-26) 32 mg/dL (8-26) 39 mg/dL (8-26) Creatinine 1.3 mg/dL (0.7-1.3) 1.2 mg/dL (0.7-1.3) 1.3 mg/dL (0.7-1.3) Estimated GFR (Cockcroft-Gault) 61.8 67.8 61.8 Glucose Level 202 mg/dL (70-99) 164 mg/dL (70-99) 178 mg/dL (70-99) Lactic Acid Level 8.2 mmol/L (0.4-2.0) 5.9 mmol/L (0.4-2.0) Calcium Level 7.2 mg/dL (8.5-10.1) 7.2 mg/dL (8.5-10.1) 7.1 mg/dL (8.5-10.1) Phosphorus Level 1.9 mg/dL (2.6-4.7) 1.7 mg/dL (2.6-4.7) 1.5 mg/dL (2.6-4.7) Magnesium Level 2.1 mg/dL (1.8-2.4) 2.0 mg/dL (1.8-2.4) 1.9 mg/dL (1.8-2.4) Glucose (Fingerstick) 169 mg/dL (70-99) White Blood Count 12.0 x10^3/uL (4.0-11.0) Red Blood Count 2.15 x10^6/uL (4.30-5.70) Hemoglobin 7.2 g/dL (13.0-17.5) Hematocrit 20.8 % (39.0-53.0) Mean Corpuscular Volume 97 fL (79-100) Mean Corpuscular Hemoglobin 33 pg (25-35) Mean Corpuscular Hemoglobin Concent 35 g/dL (31-37) Red Cell Distribution Width 20.5 % (11.5-14.5) Neutrophils (%) (Auto) 82 % (31-73) Lymphocytes (%) (Auto) 11 % (24-48) Monocytes (%) (Auto) 6 % (0-9) Eosinophils (%) (Auto) 0 % (0-3) Basophils (%) (Auto) 1 % (0-3) Neutrophils # (Auto) 9.8 x10^3/uL (1.8-7.7) Lymphocytes # (Auto) 1.4 x10^3/uL (1.0-4.8) Monocytes # (Auto) 0.8 x10^3/uL (0.0-1.1) Eosinophils # (Auto) 0.0 x10^3/uL (0.0-0.7) Basophils # (Auto) 0.1 x10^3/uL (0.0-0.2) BUN/Creatinine Ratio 30 (6-20) Total Bilirubin 16.2 mg/dL (0.2-1.0) Aspartate Amino Transf (AST/SGOT) 250 U/L (15-37) Alanine Aminotransferase (ALT/SGPT) 75 U/L (16-63) Alkaline Phosphatase 203 U/L (46-116) Total Protein 6.1 g/dL (6.4-8.2) Albumin 3.4 g/dL (3.4-5.0) Albumin/Globulin Ratio 1.3 (1.0-1.7) Test 01/20/19 07:53 O2 Saturation 90 % (92-99) Arterial Blood pH 7.41 (7.35-7.45) Arterial Blood pCO2 at Patient Temp 40 mmHg (35-46) Arterial Blood pO2 at Patient Temp 58 mmHg (85-108) Arterial Blood HCO3 25 mmol/L (21-28) Arterial Blood Base Excess 0 mmol/L (-3-3) FiO2 100 Laboratory Tests Test 01/19/19 09:40 01/19/19 12:52 01/19/19 17:19 01/19/19 20:45 O2 Saturation 95 % (92-99) Arterial Blood pH 7.31 (7.35-7.45) Arterial Blood pCO2 at Patient Temp 42 mmHg (35-46) Arterial Blood pO2 at Patient Temp 79 mmHg (85-108) Arterial Blood HCO3 21 mmol/L (21-28) Arterial Blood Base Excess -5 mmol/L (-3-3) FiO2 100 Platelet Count 28 x10^3/uL (140-400) Prothrombin Time 24.4 SEC (11.7-14.0) Prothromb Time International Ratio 2.2 (0.8-1.1) Activated Partial Thromboplast Time 36 SEC (24-38) Fibrinogen 112 mg/dL (200-440) D-Dimer (Yudi) > 20.00 ug/mlFEU Sodium Level 142 mmol/L (136-145) 142 mmol/L (136-145) Potassium Level 4.2 mmol/L (3.5-5.1) 4.2 mmol/L (3.5-5.1) Chloride Level 102 mmol/L (98-107) 103 mmol/L (98-107) Carbon Dioxide Level 27 mmol/L (21-32) 28 mmol/L (21-32) Anion Gap 13 (6-14) 11 (6-14) Blood Urea Nitrogen 32 mg/dL (8-26) 32 mg/dL (8-26) Creatinine 1.3 mg/dL (0.7-1.3) 1.2 mg/dL (0.7-1.3) Estimated GFR (Cockcroft-Gault) 61.8 67.8 Glucose Level 202 mg/dL (70-99) 164 mg/dL (70-99) Lactic Acid Level 8.2 mmol/L (0.4-2.0) Calcium Level 7.2 mg/dL (8.5-10.1) 7.2 mg/dL (8.5-10.1) Phosphorus Level 1.9 mg/dL (2.6-4.7) 1.7 mg/dL (2.6-4.7) Magnesium Level 2.1 mg/dL (1.8-2.4) 2.0 mg/dL (1.8-2.4) Glucose (Fingerstick) 169 mg/dL (70-99) Test 01/20/19 05:15 01/20/19 07:53 White Blood Count 12.0 x10^3/uL (4.0-11.0) Red Blood Count 2.15 x10^6/uL (4.30-5.70) Hemoglobin 7.2 g/dL (13.0-17.5) Hematocrit 20.8 % (39.0-53.0) Mean Corpuscular Volume 97 fL (79-100) Mean Corpuscular Hemoglobin 33 pg (25-35) Mean Corpuscular Hemoglobin Concent 35 g/dL (31-37) Red Cell Distribution Width 20.5 % (11.5-14.5) Platelet Count 24 x10^3/uL (140-400) Neutrophils (%) (Auto) 82 % (31-73) Lymphocytes (%) (Auto) 11 % (24-48) Monocytes (%) (Auto) 6 % (0-9) Eosinophils (%) (Auto) 0 % (0-3) Basophils (%) (Auto) 1 % (0-3) Neutrophils # (Auto) 9.8 x10^3/uL (1.8-7.7) Lymphocytes # (Auto) 1.4 x10^3/uL (1.0-4.8) Monocytes # (Auto) 0.8 x10^3/uL (0.0-1.1) Eosinophils # (Auto) 0.0 x10^3/uL (0.0-0.7) Basophils # (Auto) 0.1 x10^3/uL (0.0-0.2) Prothrombin Time 22.0 SEC (11.7-14.0) Prothromb Time International Ratio 2.0 (0.8-1.1) Sodium Level 142 mmol/L (136-145) Potassium Level 4.1 mmol/L (3.5-5.1) Chloride Level 103 mmol/L (98-107) Carbon Dioxide Level 29 mmol/L (21-32) Anion Gap 10 (6-14) Blood Urea Nitrogen 39 mg/dL (8-26) Creatinine 1.3 mg/dL (0.7-1.3) Estimated GFR (Cockcroft-Gault) 61.8 BUN/Creatinine Ratio 30 (6-20) Glucose Level 178 mg/dL (70-99) Lactic Acid Level 5.9 mmol/L (0.4-2.0) Calcium Level 7.1 mg/dL (8.5-10.1) Phosphorus Level 1.5 mg/dL (2.6-4.7) Magnesium Level 1.9 mg/dL (1.8-2.4) Total Bilirubin 16.2 mg/dL (0.2-1.0) Aspartate Amino Transf (AST/SGOT) 250 U/L (15-37) Alanine Aminotransferase (ALT/SGPT) 75 U/L (16-63) Alkaline Phosphatase 203 U/L (46-116) Total Protein 6.1 g/dL (6.4-8.2) Albumin 3.4 g/dL (3.4-5.0) Albumin/Globulin Ratio 1.3 (1.0-1.7) O2 Saturation 90 % (92-99) Arterial Blood pH 7.41 (7.35-7.45) Arterial Blood pCO2 at Patient Temp 40 mmHg (35-46) Arterial Blood pO2 at Patient Temp 58 mmHg (85-108) Arterial Blood HCO3 25 mmol/L (21-28) Arterial Blood Base Excess 0 mmol/L (-3-3) FiO2 100 Comments Impression . IMPRESSION: 1. Acute respiratory failure, multifactorial, secondary to multiorgan failure. ARDS with.likely superimposed fluid overload/CHF/ underlying aspiration pneumonitis etiology of ARDS, no evidence of hepato-pulmonary shunt on Bubble echo 2. End-stage liver disease with persistent abnormal LFT, bili up to 15 3. Multiorgan failure. 4. Renal failure. ? hepato renal syndrome, remains oliguric, on CRRT 5. Acute gastrointestinal bleed.? MV Tear, stable Hb 6. sepsis. 7. Leukocytosis. marked increase, no fever, possible leukemoid reaction, improving now 8. Hematemesis.resolved 9. Rhabdomyolysis. 10. Alcohol abuse. 11. Ascites. 12. Electrolyte abnormalities. 13. fever,resolved Imaging: EGD 01/08 E--NO VARICES. Erosions distally c/w reflux/repeated emesis. One quite long narrow erosion which could have been a M-W. No active bleeding or clot. G--Not much retained blood after OG suction and Reglan. NO gastric varices. Linear erosions along the rugae in fundus and body c/w alcoholic or stress gastritis. Scattered "bruises" from OG tube. No ulcer, etc. D--Normal to second portion. IMP: Reflux esophagitis. ? recent M-W tear. Alcoholic gastritis. No active bleeding or clot seen. Plan . CONTINUE SUPPORT PROGNOSIS IS POOR DOUBT PT WILL SURVIVE FAMILY INFORMED THEY WISH TO PROCEED WITH FULL CARE 1. UF. with CRRT. 2. Continue BS antibiotics per Infectious Disease 3. F/U CXR 4. remains critically ill with poor prognosis 5. Monitor hemoglobin and hematocrit. 6. Follow GI recommendation.f/u LFT 7. Alcohol withdrawal protocol. 8. Nutrition, on TPN, on CRRT / keeping neg on fluid balance. d/w pharmacist to concentrate all drips 9. echo with bubble study Neg d/w , mother cct 30 min CARROLL BARRETT MD Jan 20, 2019 09:01
[2019-01-20] MEDS: DAPTOmycin (GENERIC) IVPB 500 MG in IV NORMAL SALINE 50ML 50 ML IV SCH (09:16)
--- NOTE | 2019-01-20 10:25 | PDOC ---
PROGRESS NOTES Chief Complaint Chief Complaint Acute respiratory falure, IPPV - 01.08, fluid overload vs Atypical infection VS ARDS from aspiration HEMATEMESIS in A HEAVY DRINKER -Atrophic gastritis, ?MW tear BUT NO ACTIVE GIB - s.po STAT EGD 01/08 SEVERE PCM - albumin 1,7 -s/p albumin 01/09 - off pressors by 01/10 MInimal ascites - by US and CT HYPOTENSION, s/p, pressors standby, albumin, blood products if needed Coagulopathy - s/p vit K, HEPATIC enceph - ammonia midly high 60-90s - lactulose,SD HIGH residuals TRAMSAMINITIS with ELEVATED TB- per GI (TB 9), AST 300s-500s HEp C antibody positive LEft leg bruise, in this coagulopathic anemic pt sec to fall 2 weeks ago - monitor ELEVATED AGAP acidosis NEw ESRD HD - Sat before thanksgiving History of Present Illness History of Present Illness DAy 13 hospital stay D dimer > 20 Platelets dropping Hgb stable 7 range needed to start CRRT Sat before thanksgiving NO UO Waking up some, recognizes Anasarca stable TPN, ileus etc so cant do TFs - BS ok HGb 7, WBC 17 - multi specialty on board, lactate down to 9 from 21 BEttr oxygenation but still FIO2 100% and PEEP 14 PLAN: I added heme onc bec of worsening thrombocytopenia, anemia, d dimer > 20 r.o dic HEme onc orderd vit K and cryo CRRT per renal Abx per ID TPN for now maintain esteves On dvt and ppi ppx NOt ready for trach yet, high O2 and pEEP LTAC screen dw family members at bedside Critically ill Vitals Vitals Vital Signs Date Time Temp Pulse Resp B/P (MAP) Pulse Ox O2 Delivery O2 Flow Rate FiO2 01/20/19 10:00 84 24 95/45 (62) 97 Ventilator 01/20/19 09:46 2.0 01/20/19 08:00 98.5 98.5 Physical Exam Physical Exam GENERAL: Orally intubated and sedated, CRRT HEENT: Icteric, Pupils equal, ETT and OGT LUNGS: Right-sided rhonchi HEART: S1 S2 regular ABDOMEN: Obese, soft, hypoactive BS : - Esteves EXTREMITIES:gen edema, LLE ecchymosis. SKIN: Warm to touch. No rash NEUROLOGIC: Sedated RIJ and Temp RIJ/HDC (01/13) clean PIV General: Other (tachypneic 30s) Heart: Regular rate, Normal S1, Normal S2 Lungs: Other (coarse bs bilaterally) Abdomen: Soft, No tenderness, Other (pot belly possible fluid wave) Extremities: No clubbing, No cyanosis, Normal pulses, Other (left leg is bruised from a fall 2-3 weeks ago) Labs LABS Laboratory Tests Test 01/19/19 12:52 01/19/19 17:19 01/19/19 20:45 01/20/19 05:15 Platelet Count 28 x10^3/uL (140-400) 24 x10^3/uL (140-400) Prothrombin Time 24.4 SEC (11.7-14.0) 22.0 SEC (11.7-14.0) Prothromb Time International Ratio 2.2 (0.8-1.1) 2.0 (0.8-1.1) Activated Partial Thromboplast Time 36 SEC (24-38) Fibrinogen 112 mg/dL (200-440) D-Dimer (Yudi) > 20.00 ug/mlFEU Sodium Level 142 mmol/L (136-145) 142 mmol/L (136-145) 142 mmol/L (136-145) Potassium Level 4.2 mmol/L (3.5-5.1) 4.2 mmol/L (3.5-5.1) 4.1 mmol/L (3.5-5.1) Chloride Level 102 mmol/L (98-107) 103 mmol/L (98-107) 103 mmol/L (98-107) Carbon Dioxide Level 27 mmol/L (21-32) 28 mmol/L (21-32) 29 mmol/L (21-32) Anion Gap 13 (6-14) 11 (6-14) 10 (6-14) Blood Urea Nitrogen 32 mg/dL (8-26) 32 mg/dL (8-26) 39 mg/dL (8-26) Creatinine 1.3 mg/dL (0.7-1.3) 1.2 mg/dL (0.7-1.3) 1.3 mg/dL (0.7-1.3) Estimated GFR (Cockcroft-Gault) 61.8 67.8 61.8 Glucose Level 202 mg/dL (70-99) 164 mg/dL (70-99) 178 mg/dL (70-99) Lactic Acid Level 8.2 mmol/L (0.4-2.0) 5.9 mmol/L (0.4-2.0) Calcium Level 7.2 mg/dL (8.5-10.1) 7.2 mg/dL (8.5-10.1) 7.1 mg/dL (8.5-10.1) Phosphorus Level 1.9 mg/dL (2.6-4.7) 1.7 mg/dL (2.6-4.7) 1.5 mg/dL (2.6-4.7) Magnesium Level 2.1 mg/dL (1.8-2.4) 2.0 mg/dL (1.8-2.4) 1.9 mg/dL (1.8-2.4) Glucose (Fingerstick) 169 mg/dL (70-99) White Blood Count 12.0 x10^3/uL (4.0-11.0) Red Blood Count 2.15 x10^6/uL (4.30-5.70) Hemoglobin 7.2 g/dL (13.0-17.5) Hematocrit 20.8 % (39.0-53.0) Mean Corpuscular Volume 97 fL (79-100) Mean Corpuscular Hemoglobin 33 pg (25-35) Mean Corpuscular Hemoglobin Concent 35 g/dL (31-37) Red Cell Distribution Width 20.5 % (11.5-14.5) Neutrophils (%) (Auto) 82 % (31-73) Lymphocytes (%) (Auto) 11 % (24-48) Monocytes (%) (Auto) 6 % (0-9) Eosinophils (%) (Auto) 0 % (0-3) Basophils (%) (Auto) 1 % (0-3) Neutrophils # (Auto) 9.8 x10^3/uL (1.8-7.7) Lymphocytes # (Auto) 1.4 x10^3/uL (1.0-4.8) Monocytes # (Auto) 0.8 x10^3/uL (0.0-1.1) Eosinophils # (Auto) 0.0 x10^3/uL (0.0-0.7) Basophils # (Auto) 0.1 x10^3/uL (0.0-0.2) BUN/Creatinine Ratio 30 (6-20) Total Bilirubin 16.2 mg/dL (0.2-1.0) Aspartate Amino Transf (AST/SGOT) 250 U/L (15-37) Alanine Aminotransferase (ALT/SGPT) 75 U/L (16-63) Alkaline Phosphatase 203 U/L (46-116) Total Protein 6.1 g/dL (6.4-8.2) Albumin 3.4 g/dL (3.4-5.0) Albumin/Globulin Ratio 1.3 (1.0-1.7) Test 01/20/19 07:53 01/20/19 09:03 O2 Saturation 90 % (92-99) Arterial Blood pH 7.41 (7.35-7.45) Arterial Blood pCO2 at Patient Temp 40 mmHg (35-46) Arterial Blood pO2 at Patient Temp 58 mmHg (85-108) Arterial Blood HCO3 25 mmol/L (21-28) Arterial Blood Base Excess 0 mmol/L (-3-3) FiO2 100 Lactic Acid Level 5.5 mmol/L (0.4-2.0) Review of Systems Review of Systems intubated,s edated Assessment and Plan Assessmemt and Plan Problems Medical Problems: (1) Acute hepatic encephalopathy Status: Acute (2) Acute upper GI bleed Status: Acute (3) Ascites Status: Acute (4) Hypokalemia Status: Acute (5) Multiple organ system failure Status: Acute (6) Severe sepsis with acute organ dysfunction Status: Acute Comment Review of Relevant I have reviewed the following items karen (where applicable) has been applied. Labs Laboratory Tests Test 01/18/19 14:00 01/18/19 21:45 01/18/19 22:43 01/18/19 23:29 Sodium Level 142 mmol/L (136-145) 142 mmol/L (136-145) Potassium Level 4.1 mmol/L (3.5-5.1) 5.0 mmol/L (3.5-5.1) Chloride Level 103 mmol/L (98-107) 102 mmol/L (98-107) Carbon Dioxide Level 23 mmol/L (21-32) 19 mmol/L (21-32) Anion Gap 16 (6-14) 21 (6-14) Blood Urea Nitrogen 30 mg/dL (8-26) 28 mg/dL (8-26) Creatinine 1.4 mg/dL (0.7-1.3) 1.4 mg/dL (0.7-1.3) Estimated GFR (Cockcroft-Gault) 56.7 56.7 Glucose Level 156 mg/dL (70-99) 37 mg/dL (70-99) Calcium Level 6.9 mg/dL (8.5-10.1) 6.9 mg/dL (8.5-10.1) Phosphorus Level 2.8 mg/dL (2.6-4.7) 5.0 mg/dL (2.6-4.7) Magnesium Level 2.3 mg/dL (1.8-2.4) 4.8 mg/dL (1.8-2.4) Glucose (Fingerstick) 126 mg/dL (70-99) 103 mg/dL (70-99) Test 01/19/19 04:30 01/19/19 07:59 01/19/19 08:00 01/19/19 09:40 White Blood Count 18.9 x10^3/uL (4.0-11.0) Red Blood Count 2.36 x10^6/uL (4.30-5.70) Hemoglobin 7.7 g/dL (13.0-17.5) Hematocrit 23.6 % (39.0-53.0) Mean Corpuscular Volume 100 fL (79-100) Mean Corpuscular Hemoglobin 33 pg (25-35) Mean Corpuscular Hemoglobin Concent 32 g/dL (31-37) Red Cell Distribution Width 21.5 % (11.5-14.5) Platelet Count 37 x10^3/uL (140-400) Neutrophils (%) (Auto) 88 % (31-73) Lymphocytes (%) (Auto) 8 % (24-48) Monocytes (%) (Auto) 3 % (0-9) Eosinophils (%) (Auto) 1 % (0-3) Basophils (%) (Auto) 1 % (0-3) Neutrophils # (Auto) 16.2 x10^3/uL (1.8-7.7) Lymphocytes # (Auto) 1.4 x10^3/uL (1.0-4.8) Monocytes # (Auto) 0.6 x10^3/uL (0.0-1.1) Eosinophils # (Auto) 0.1 x10^3/uL (0.0-0.7) Basophils # (Auto) 0.1 x10^3/uL (0.0-0.2) Prothrombin Time 23.7 SEC (11.7-14.0) Prothromb Time International Ratio 2.1 (0.8-1.1) Sodium Level 141 mmol/L (136-145) 140 mmol/L (136-145) Potassium Level 5.3 mmol/L (3.5-5.1) 4.8 mmol/L (3.5-5.1) Chloride Level 102 mmol/L (98-107) 101 mmol/L (98-107) Carbon Dioxide Level 22 mmol/L (21-32) 24 mmol/L (21-32) Anion Gap 17 (6-14) 15 (6-14) Blood Urea Nitrogen 28 mg/dL (8-26) 29 mg/dL (8-26) Creatinine 1.4 mg/dL (0.7-1.3) 1.3 mg/dL (0.7-1.3) Estimated GFR (Cockcroft-Gault) 56.7 61.8 Glucose Level 166 mg/dL (70-99) 202 mg/dL (70-99) Calcium Level 7.3 mg/dL (8.5-10.1) 7.1 mg/dL (8.5-10.1) Phosphorus Level 3.9 mg/dL (2.6-4.7) Magnesium Level 4.7 mg/dL (1.8-2.4) Albumin 3.6 g/dL (3.4-5.0) 3.7 g/dL (3.4-5.0) Triglycerides Level 167 mg/dL (0-150) Glucose (Fingerstick) 182 mg/dL (70-99) BUN/Creatinine Ratio 22 (6-20) Lactic Acid Level 9.3 mmol/L (0.4-2.0) Total Bilirubin 15.2 mg/dL (0.2-1.0) Aspartate Amino Transf (AST/SGOT) 349 U/L (15-37) Alanine Aminotransferase (ALT/SGPT) 84 U/L (16-63) Alkaline Phosphatase 178 U/L (46-116) Total Protein 6.5 g/dL (6.4-8.2) Albumin/Globulin Ratio 1.3 (1.0-1.7) O2 Saturation 95 % (92-99) Arterial Blood pH 7.31 (7.35-7.45) Arterial Blood pCO2 at Patient Temp 42 mmHg (35-46) Arterial Blood pO2 at Patient Temp 79 mmHg (85-108) Arterial Blood HCO3 21 mmol/L (21-28) Arterial Blood Base Excess -5 mmol/L (-3-3) FiO2 100 Test 01/19/19 12:52 01/19/19 17:19 01/19/19 20:45 01/20/19 05:15 Platelet Count 28 x10^3/uL (140-400) 24 x10^3/uL (140-400) Prothrombin Time 24.4 SEC (11.7-14.0) 22.0 SEC (11.7-14.0) Prothromb Time International Ratio 2.2 (0.8-1.1) 2.0 (0.8-1.1) Activated Partial Thromboplast Time 36 SEC (24-38) Fibrinogen 112 mg/dL (200-440) D-Dimer (Yudi) > 20.00 ug/mlFEU Sodium Level 142 mmol/L (136-145) 142 mmol/L (136-145) 142 mmol/L (136-145) Potassium Level 4.2 mmol/L (3.5-5.1) 4.2 mmol/L (3.5-5.1) 4.1 mmol/L (3.5-5.1) Chloride Level 102 mmol/L (98-107) 103 mmol/L (98-107) 103 mmol/L (98-107) Carbon Dioxide Level 27 mmol/L (21-32) 28 mmol/L (21-32) 29 mmol/L (21-32) Anion Gap 13 (6-14) 11 (6-14) 10 (6-14) Blood Urea Nitrogen 32 mg/dL (8-26) 32 mg/dL (8-26) 39 mg/dL (8-26) Creatinine 1.3 mg/dL (0.7-1.3) 1.2 mg/dL (0.7-1.3) 1.3 mg/dL (0.7-1.3) Estimated GFR (Cockcroft-Gault) 61.8 67.8 61.8 Glucose Level 202 mg/dL (70-99) 164 mg/dL (70-99) 178 mg/dL (70-99) Lactic Acid Level 8.2 mmol/L (0.4-2.0) 5.9 mmol/L (0.4-2.0) Calcium Level 7.2 mg/dL (8.5-10.1) 7.2 mg/dL (8.5-10.1) 7.1 mg/dL (8.5-10.1) Phosphorus Level 1.9 mg/dL (2.6-4.7) 1.7 mg/dL (2.6-4.7) 1.5 mg/dL (2.6-4.7) Magnesium Level 2.1 mg/dL (1.8-2.4) 2.0 mg/dL (1.8-2.4) 1.9 mg/dL (1.8-2.4) Glucose (Fingerstick) 169 mg/dL (70-99) White Blood Count 12.0 x10^3/uL (4.0-11.0) Red Blood Count 2.15 x10^6/uL (4.30-5.70) Hemoglobin 7.2 g/dL (13.0-17.5) Hematocrit 20.8 % (39.0-53.0) Mean Corpuscular Volume 97 fL (79-100) Mean Corpuscular Hemoglobin 33 pg (25-35) Mean Corpuscular Hemoglobin Concent 35 g/dL (31-37) Red Cell Distribution Width 20.5 % (11.5-14.5) Neutrophils (%) (Auto) 82 % (31-73) Lymphocytes (%) (Auto) 11 % (24-48) Monocytes (%) (Auto) 6 % (0-9) Eosinophils (%) (Auto) 0 % (0-3) Basophils (%) (Auto) 1 % (0-3) Neutrophils # (Auto) 9.8 x10^3/uL (1.8-7.7) Lymphocytes # (Auto) 1.4 x10^3/uL (1.0-4.8) Monocytes # (Auto) 0.8 x10^3/uL (0.0-1.1) Eosinophils # (Auto) 0.0 x10^3/uL (0.0-0.7) Basophils # (Auto) 0.1 x10^3/uL (0.0-0.2) BUN/Creatinine Ratio 30 (6-20) Total Bilirubin 16.2 mg/dL (0.2-1.0) Aspartate Amino Transf (AST/SGOT) 250 U/L (15-37) Alanine Aminotransferase (ALT/SGPT) 75 U/L (16-63) Alkaline Phosphatase 203 U/L (46-116) Total Protein 6.1 g/dL (6.4-8.2) Albumin 3.4 g/dL (3.4-5.0) Albumin/Globulin Ratio 1.3 (1.0-1.7) Test 01/20/19 07:53 01/20/19 09:03 O2 Saturation 90 % (92-99) Arterial Blood pH 7.41 (7.35-7.45) Arterial Blood pCO2 at Patient Temp 40 mmHg (35-46) Arterial Blood pO2 at Patient Temp 58 mmHg (85-108) Arterial Blood HCO3 25 mmol/L (21-28) Arterial Blood Base Excess 0 mmol/L (-3-3) FiO2 100 Lactic Acid Level 5.5 mmol/L (0.4-2.0) Laboratory Tests Test 01/19/19 12:52 01/19/19 17:19 01/19/19 20:45 01/20/19 05:15 Platelet Count 28 x10^3/uL (140-400) 24 x10^3/uL (140-400) Prothrombin Time 24.4 SEC (11.7-14.0) 22.0 SEC (11.7-14.0) Prothromb Time International Ratio 2.2 (0.8-1.1) 2.0 (0.8-1.1) Activated Partial Thromboplast Time 36 SEC (24-38) Fibrinogen 112 mg/dL (200-440) D-Dimer (Yudi) > 20.00 ug/mlFEU Sodium Level 142 mmol/L (136-145) 142 mmol/L (136-145) 142 mmol/L (136-145) Potassium Level 4.2 mmol/L (3.5-5.1) 4.2 mmol/L (3.5-5.1) 4.1 mmol/L (3.5-5.1) Chloride Level 102 mmol/L (98-107) 103 mmol/L (98-107) 103 mmol/L (98-107) Carbon Dioxide Level 27 mmol/L (21-32) 28 mmol/L (21-32) 29 mmol/L (21-32) Anion Gap 13 (6-14) 11 (6-14) 10 (6-14) Blood Urea Nitrogen 32 mg/dL (8-26) 32 mg/dL (8-26) 39 mg/dL (8-26) Creatinine 1.3 mg/dL (0.7-1.3) 1.2 mg/dL (0.7-1.3) 1.3 mg/dL (0.7-1.3) Estimated GFR (Cockcroft-Gault) 61.8 67.8 61.8 Glucose Level 202 mg/dL (70-99) 164 mg/dL (70-99) 178 mg/dL (70-99) Lactic Acid Level 8.2 mmol/L (0.4-2.0) 5.9 mmol/L (0.4-2.0) Calcium Level 7.2 mg/dL (8.5-10.1) 7.2 mg/dL (8.5-10.1) 7.1 mg/dL (8.5-10.1) Phosphorus Level 1.9 mg/dL (2.6-4.7) 1.7 mg/dL (2.6-4.7) 1.5 mg/dL (2.6-4.7) Magnesium Level 2.1 mg/dL (1.8-2.4) 2.0 mg/dL (1.8-2.4) 1.9 mg/dL (1.8-2.4) Glucose (Fingerstick) 169 mg/dL (70-99) White Blood Count 12.0 x10^3/uL (4.0-11.0) Red Blood Count 2.15 x10^6/uL (4.30-5.70) Hemoglobin 7.2 g/dL (13.0-17.5) Hematocrit 20.8 % (39.0-53.0) Mean Corpuscular Volume 97 fL (79-100) Mean Corpuscular Hemoglobin 33 pg (25-35) Mean Corpuscular Hemoglobin Concent 35 g/dL (31-37) Red Cell Distribution Width 20.5 % (11.5-14.5) Neutrophils (%) (Auto) 82 % (31-73) Lymphocytes (%) (Auto) 11 % (24-48) Monocytes (%) (Auto) 6 % (0-9) Eosinophils (%) (Auto) 0 % (0-3) Basophils (%) (Auto) 1 % (0-3) Neutrophils # (Auto) 9.8 x10^3/uL (1.8-7.7) Lymphocytes # (Auto) 1.4 x10^3/uL (1.0-4.8) Monocytes # (Auto) 0.8 x10^3/uL (0.0-1.1) Eosinophils # (Auto) 0.0 x10^3/uL (0.0-0.7) Basophils # (Auto) 0.1 x10^3/uL (0.0-0.2) BUN/Creatinine Ratio 30 (6-20) Total Bilirubin 16.2 mg/dL (0.2-1.0) Aspartate Amino Transf (AST/SGOT) 250 U/L (15-37) Alanine Aminotransferase (ALT/SGPT) 75 U/L (16-63) Alkaline Phosphatase 203 U/L (46-116) Total Protein 6.1 g/dL (6.4-8.2) Albumin 3.4 g/dL (3.4-5.0) Albumin/Globulin Ratio 1.3 (1.0-1.7) Test 01/20/19 07:53 01/20/19 09:03 O2 Saturation 90 % (92-99) Arterial Blood pH 7.41 (7.35-7.45) Arterial Blood pCO2 at Patient Temp 40 mmHg (35-46) Arterial Blood pO2 at Patient Temp 58 mmHg (85-108) Arterial Blood HCO3 25 mmol/L (21-28) Arterial Blood Base Excess 0 mmol/L (-3-3) FiO2 100 Lactic Acid Level 5.5 mmol/L (0.4-2.0) Microbiology 01/15/19 - Final, Complete 01/15/19 - Final, Complete 01/15/19 - Final, Complete 01/15/19 Gram Stain Evaluation - Final, Complete 01/15/19 Sputum Culture - Final, Complete 01/15/19 Sputum Result 1 - Final, Complete 01/14/19 Blood Culture - Final, Complete NO GROWTH AFTER 5 DAYS 01/08/19 Urine Culture - Final, Complete 01/08/19 Urine Culture Result 1 (ELMA) - Final, Complete Medications Current Medications Sodium Chloride 1,000 ml @ 1,000 mls/hr 1X ONCE IV Last administered on 01/07/19at 19:27; Start 01/07/19 at 19:30; Stop 01/07/19 at 20:29; Status DC Ondansetron HCl (Zofran) 4 mg 1X ONCE IV Last administered on 01/07/19at 19:28; Start 01/07/19 at 19:30; Stop 01/07/19 at 19:31; Status DC Pantoprazole Sodium (PROTONIX VIAL for IV PUSH) 80 mg 1X ONCE IVP Last administered on 01/07/19at 19:50; Start 01/07/19 at 20:00; Stop 01/07/19 at 20:01; Status DC Pantoprazole Sodium 80 mg/ Sodium Chloride 100 ml @ 10 mls/hr 1X ONCE IV Last administered on 01/07/19at 20:00; Start 01/07/19 at 20:00; Stop 01/08/19 at 05:59; Status DC Sodium Chloride 1,000 ml @ 1,000 mls/hr 1X ONCE IV Last administered on 01/07/19at 22:12; Start 01/07/19 at 21:00; Stop 01/07/19 at 21:59; Status DC Sodium Chloride 1,000 ml @ 1,000 mls/hr 1X ONCE IV Last administered on 01/07/19at 20:40; Start 01/07/19 at 20:45; Stop 01/07/19 at 21:44; Status DC Potassium Chloride/Sodium Chloride 1,000 ml @ 75 mls/hr 1X ONCE IV Last administered on 01/07/19at 21:16; Start 01/07/19 at 21:30; Stop 01/08/19 at 10:49; Status DC Vancomycin HCl (Vanco Per Pharmacy) 1 each PRN DAILY PRN MC SEE COMMENTS Last administered on 01/08/19at 00:43; Start 01/07/19 at 21:00; Stop 01/08/19 at 06:39; Status DC Piperacillin Sod/ Tazobactam Sod (Zosyn Per Pharmacy) 1 each PRN DAILY PRN MC SEE COMMENTS; Start 01/07/19 at 21:00; Stop 01/18/19 at 12:16; Status DC Piperacillin Sod/ Tazobactam Sod 3.375 gm/Sodium Chloride 50 ml @ 100 mls/hr Q6HRS IV Last administered on 01/18/19at 05:54; Start 01/07/19 at 22:00; Stop 01/18/19 at 12:16; Status DC Vancomycin HCl 2 gm/Sodium Chloride 500 ml @ 250 mls/hr 1X ONCE IV Last administered on 01/07/19at 22:11; Start 01/07/19 at 22:00; Stop 01/07/19 at 23:59; Status DC Lorazepam (Ativan Inj) 1 mg 1X ONCE IV Last administered on 01/07/19at 23:22; Start 01/07/19 at 23:30; Stop 01/07/19 at 23:31; Status DC Lorazepam (Ativan Inj) 2 mg STK-MED ONCE .ROUTE ; Start 01/07/19 at 23:20; Stop 01/07/19 at 23:21; Status DC Vancomycin HCl 1.5 gm/Sodium Chloride 500 ml @ 250 mls/hr Q12H IV ; Start 01/08/19 at 10:00; Stop 01/08/19 at 06:39; Status DC Vancomycin HCl (Vancomycin Trough Level) 1 each 1X ONCE MC ; Start 01/09/19 at 09:30; Stop 01/09/19 at 09:31; Status Cancel Ondansetron HCl (Zofran) 4 mg PRN Q6HRS PRN IVP NAUSEA/VOMITING; Start 01/08/19 at 04:00; Status Cancel Pantoprazole Sodium 80 mg/ Sodium Chloride 100 ml @ 10 mls/hr Q10H IV Last administered on 01/09/19at 02:00; Start 01/08/19 at 06:00; Stop 01/09/19 at 11:00; Status DC Multivitamins 10 ml/Thiamine HCl 100 mg/Folic Acid 1 mg/Sodium Chloride 1,011.2 ml @ 100 mls/ hr DAILY IV Last administered on 01/12/19at 10:29; Start 01/08/19 at 09:00; Stop 01/12/19 at 19:07; Status DC Lorazepam (Ativan Inj) 2 mg PRN Q1HR PRN IV For CIWA 8-14 Last administered on 01/14/19at 21:01; Start 01/08/19 at 07:15 Lorazepam (Ativan Inj) 4 mg PRN Q1HR PRN IV For CIWA 15 or greater Last administered on 01/15/19at 08:40; Start 01/08/19 at 07:15 Haloperidol Lactate (Haldol Inj) 5 mg PRN Q4HRS PRN IVP Hallucinatns,Confusn,Delirium; Start 01/08/19 at 07:15 Diphenhydramine HCl (Benadryl) 25 mg PRN Q15MIN PRN IVP EPS symptoms 2'Haldol admin; Start 01/08/19 at 07:15 Clonidine HCl (Catapres) 0.1 mg PRN Q1HR PRN PO SBP > 180 or DBP > 100, MRX3; Start 01/08/19 at 07:15 Sodium Bicarbonate (Sodium Bicarb Adult 8.4% Syr) 50 meq 1X ONCE IV Last administered on 01/08/19at 08:04; Start 01/08/19 at 08:00; Stop 01/08/19 at 08:01; Status DC Propofol 100 ml @ As Directed STK-MED ONCE IV ; Start 01/08/19 at 08:19; Stop 01/08/19 at 08:19; Status DC Succinylcholine Chloride (Anectine) 200 mg STK-MED ONCE .ROUTE ; Start 01/08/19 at 08:19; Stop 01/08/19 at 08:19; Status DC Propofol 100 ml @ As Directed STK-MED ONCE IV ; Start 01/08/19 at 08:29; Stop 01/08/19 at 08:30; Status DC Fentanyl Citrate 30 ml @ 0 mls/hr CONT PRN PRN IV PER PROTOCOL Last administered on 01/20/19at 09:46; Start 01/08/19 at 09:00 Naloxone HCl (Narcan) 0.4 mg PRN Q2MIN PRN IV SEE INSTRUCTIONS; Start 01/08/19 at 09:00 Sodium Chloride 1,000 ml @ 25 mls/hr Q24H IV Last administered on 01/17/19at 13:38; Start 01/08/19 at 08:54 Fentanyl Citrate (Fentanyl 2ml Vial) 100 mcg STK-MED ONCE .ROUTE ; Start 01/08/19 at 08:55; Stop 01/08/19 at 08:55; Status DC Octreotide Acetate 500 mcg/ Sodium Chloride 101 ml @ 0 mls/hr CONT PRN IV SEE I/O RECORD Last administered on 01/08/19at 13:56; Start 01/08/19 at 09:00; Stop 01/08/19 at 16:55; Status DC Phytonadione (Vitamin K Ampule) 10 mg 1X ONCE SQ Last administered on 01/08/19at 09:56; Start 01/08/19 at 09:15; Stop 01/08/19 at 09:16; Status DC Metoclopramide HCl (Reglan Vial) 10 mg 1X ONCE IVP Last administered on 01/08/19at 14:36; Start 01/08/19 at 11:00; Stop 01/08/19 at 11:01; Status DC Midazolam HCl (Versed) 5 mg STK-MED ONCE .ROUTE ; Start 01/08/19 at 09:00; Stop 01/08/19 at 09:01; Status DC Acetaminophen (Tylenol) 500 mg PRN Q6HRS PRN PO MILD PAIN / TEMP Last administered on 01/11/19at 17:46; Start 01/08/19 at 09:15; Stop 01/13/19 at 09:11; Status DC Tramadol HCl (Ultram) 50 mg PRN Q6HRS PRN PO PAIN MODERATE; Start 01/08/19 at 09:15 Morphine Sulfate (Morphine Sulfate) 2 mg PRN Q2HR PRN IV PAIN; Start 01/08/19 at 09:15 Ondansetron HCl (Zofran) 4 mg PRN Q6HRS PRN IVP NAUSEA/VOMITING, 1ST CHOICE; Start 01/08/19 at 09:15 Fentanyl Citrate (Fentanyl 2ml Vial) 100 mcg 1X ONCE IVP Last administered on 01/08/19at 09:42; Start 01/08/19 at 09:45; Stop 01/08/19 at 09:46; Status DC Midazolam HCl (Versed) 5 mg 1X ONCE IV Last administered on 01/08/19 09:41; Start 01/08/19 at 09:45; Stop 01/08/19 at 09:46; Status DC Succinylcholine Chloride (Anectine) 200 mg 1X ONCE IV Last administered on 01/08/19at 09:41; Start 01/08/19 at 09:45; Stop 01/08/19 at 09:46; Status DC Propofol 100 ml @ 1.524 mls/ hr CONT PRN IV SEE I/O RECORD Last administered on 01/14/19at 03:56; Start 01/08/19 at 09:45 Midazolam HCl 100 ml @ 5 mls/hr CONT PRN IV SEE I/O RECORD Last administered on 01/19/19at 23:11; Start 01/08/19 at 11:15 Vecuronium [place] (Norcuron Bolus) 6 mg PRN Q4HRS PRN IV VENT ASYNCHRONY Last administered on 01/18/19at 11:14; Start 01/08/19 at 12:00 Benzocaine (Hurricaine One) 2 spray STK-MED ONCE .ROUTE ; Start 01/07/19 at 12:00; Stop 01/08/19 at 14:20; Status DC Lidocaine HCl (Xylocaine 2% Topical 5gm Tube) 5 amanda STK-MED ONCE TP ; Start 01/07/19 at 12:00; Stop 01/08/19 at 14:20; Status DC Lactobacillus Rhamnosus (Culturelle) 1 cap BID PO ; Start 01/08/19 at 21:00; Stop 01/09/19 at 09:29; Status DC Acetaminophen (Tylenol Supp) 650 mg PRN Q6HRS PRN SD MILD PAIN / TEMP Last administered on 01/09/19at 23:44; Start 01/08/19 at 18:15 Norepinephrine Bitartrate 250 ml @ 18.938 mls/ hr CONT PRN IV SEE I/O RECORD Last administered on 01/19/19at 06:31; Start 01/09/19 at 01:45; Stop 01/19/19 at 11:30; Status DC Potassium Chloride (Klor-Con) 40 meq 1X ONCE PO Last administered on 01/09/19at 11:34; Start 01/09/19 at 09:45; Stop 01/09/19 at 09:46; Status DC Metoclopramide HCl (Reglan Vial) 10 mg PRN Q6HRS PRN IVP NAUSEA/VOMITING, 2ND CHOICE Last administered on 01/14/19at 21:01; Start 01/09/19 at 10:15 Albumin Human 100 ml @ 100 mls/hr 1X ONCE IV Last administered on 01/09/19at 10:49; Start 01/09/19 at 10:15; Stop 01/09/19 at 11:14; Status DC Lactulose (LACTULOSE 300ML for RECTAL) 200 gm Q6HRS SD ; Start 01/09/19 at 12:00; Stop 01/09/19 at 11:04; Status DC Insulin Human Lispro (HumaLOG) 0-9 UNITS TIDWMEALS SQ Last administered on 01/20/19 07:53; Start 01/09/19 at 12:00 Dextrose (Dextrose 50%-Water Syringe) 12.5 gm PRN Q15MIN PRN IV SEE COMMENTS Last administered on 01/18/19at 22:35; Start 01/09/19 at 10:30 Fentanyl Citrate (Fentanyl 600 Mcg/30 ml PAPIER MACHE' MOLDER) 600 mcg STK-MED ONCE IV ; Start 01/08/19 at 15:25; Stop 01/09/19 at 10:27; Status DC Pantoprazole Sodium (PROTONIX VIAL for IV PUSH) 40 mg DAILYAC IVP Last administered on 01/20/19 07:49; Start 01/10/19 at 07:30 Lactulose (Lactulose) 20 gm DAILY PO Last administered on 01/12/19at 08:24; Start 01/09/19 at 11:30; Stop 01/12/19 at 10:12; Status DC Potassium Bicarbonate (Potassium Effervescent Tablet) 40 meq BIDWMEALS FT Last administered on 01/10/19 17:49; Start 01/10/19 at 09:00; Stop 01/11/19 at 09:20; Status DC Linezolid/Dextrose 300 ml @ 300 mls/hr Q12HR IV Last administered on 01/16/19at 08:26; Start 01/11/19 at 13:00; Stop 01/16/19 at 08:29; Status DC Perflutren Protein Type A Microsphe (Optison) 0.66 mg 1X ONCE IV ; Start 01/11/19 at 13:30; Stop 01/11/19 at 13:31; Status DC Albumin Human 100 ml @ 100 mls/hr 1X ONCE IV Last administered on 01/12/19at 08:25; Start 01/12/19 at 07:45; Stop 01/12/19 at 08:44; Status DC Lactulose (Lactulose) 20 gm PRN DAILY PRN PO constipation; Start 01/12/19 at 10:15; Stop 01/13/19 at 09:11; Status DC Acetaminophen (Tylenol) 650 mg PRN Q6HRS PRN PEG MILD PAIN / TEMP Last administered on 01/14/19at 09:11; Start 01/12/19 at 16:30 Lactulose (Lactulose) 20 gm TID PO Last administered on 01/14/19at 21:01; Start 01/13/19 at 10:00 Albumin Human 500 ml @ 125 mls/hr 1X ONCE IV Last administered on 01/13/19at 09:40; Start 01/13/19 at 10:00; Stop 01/13/19 at 13:59; Status DC Bisacodyl (Dulcolax Supp) 10 mg 1X ONCE SD Last administered on 01/13/19at 10:14; Start 01/13/19 at 11:00; Stop 01/13/19 at 11:01; Status DC Lidocaine HCl (Buffered Lidocaine 1%) 3 ml 1X ONCE INJ Last administered on 01/13/19at 11:00; Start 01/13/19 at 11:00; Stop 01/13/19 at 11:01; Status DC Heparin Sodium (Porcine) (Heparin Sodium) 10,000 unit STK-MED ONCE .ROUTE ; Start 01/13/19 at 10:59; Stop 01/13/19 at 11:00; Status DC Darbepoetin Giorgi (ARANESP for DIALYSIS PTS) 60 mcg WEEKLYHS SQ Last administered on 01/13/19at 20:46; Start 01/13/19 at 21:00 Info (Tpn Per Pharmacy) 1 each PRN DAILY PRN MC SEE COMMENTS Last administered on 01/19/19at 13:05; Start 01/13/19 at 11:15 Sodium Chloride 1,000 ml @ 1,000 mls/hr Q1H PRN IV hypotension; Start 01/13/19 at 11:30; Stop 01/13/19 at 19:00; Status DC Albumin Human 200 ml @ 200 mls/hr 1X PRN PRN IV Hypotension; Start 01/13/19 at 11:30; Stop 01/13/19 at 17:29; Status DC Sodium Chloride 1,000 ml @ 400 mls/hr Q2H30M PRN IV PATENCY; Start 01/13/19 at 11:30; Stop 01/13/19 at 19:00; Status DC Info (PHARMACY MONITORING -- do not chart) 1 each PRN DAILY PRN MC SEE COMMENTS; Start 01/13/19 at 11:30 Info (PHARMACY MONITORING -- do not chart) 1 each PRN DAILY PRN MC SEE COMMENTS; Start 01/13/19 at 11:30; Status UNV Sodium Acetate 40 meq/Potassium Acetate 30 meq/ Calcium Gluconate 10 meq/ Multivitamins 10 ml/Chromium/ Copper/Manganese/ Seleni/Zn 1 ml/ Total Parenteral Nutrition/Amino Acids/Dextrose/ Fat Emulsion Intravenous 1,512 ml @ 63 mls/hr TPN CONT IV Last administered on 01/13/19at 21:54; Start 01/13/19 at 22:00; Stop 01/14/19 at 21:59; Status DC Multi-Ingred Cream/Lotion/Oil/ Oint (Artificial Tears Eye Ointment) 1 amanda PRN Q1HR PRN OU DRY EYE Last administered on 01/13/19at 17:14; Start 01/13/19 at 16:45 Docusate Sodium (Enemeez) 283 mg 1X ONCE SD Last administered on 01/13/19at 17:14; Start 01/13/19 at 16:45; Stop 01/13/19 at 16:47; Status DC Levofloxacin/ Dextrose 100 ml @ 100 mls/hr Q24H IV Last administered on 01/20/19at 07:50; Start 01/14/19 at 09:00 Metoclopramide HCl (Reglan Vial) 5 mg 1X ONCE IVP Last administered on 01/14/19at 10:51; Start 01/14/19 at 10:30; Stop 01/14/19 at 10:31; Status DC Dexmedetomidine HCl 400 mcg/ Sodium Chloride 100 ml @ 0 mls/hr CONT PRN IV AGITATION Last administered on 01/20/19at 09:14; Start 01/14/19 at 11:30 Sodium Chloride 1,000 ml @ 1,000 mls/hr Q1H PRN IV hypotension; Start 01/14/19 at 11:26; Stop 01/14/19 at 17:25; Status DC Albumin Human 200 ml @ 200 mls/hr 1X PRN PRN IV Hypotension; Start 01/14/19 at 11:30; Stop 01/14/19 at 17:29; Status DC Sodium Chloride 1,000 ml @ 400 mls/hr Q2H30M PRN IV PATENCY; Start 01/14/19 at 11:26; Stop 01/14/19 at 23:25; Status DC Info (PHARMACY MONITORING -- do not chart) 1 each PRN DAILY PRN MC SEE COMMENTS; Start 01/14/19 at 11:30; Status UNV Info (PHARMACY MONITORING -- do not chart) 1 each PRN DAILY PRN MC SEE COMMENTS; Start 01/14/19 at 11:30; Status UNV Sodium Chloride 30 meq/Sodium Acetate 40 meq/ Potassium Acetate 30 meq/Calcium Gluconate 10 meq/ Multivitamins 10 ml/Chromium/ Copper/Manganese/ Seleni/Zn 1 ml/ Total Parenteral Nutrition/Amino Acids/Dextrose/ Fat Emulsion Intravenous 1,512 ml @ 63 mls/hr TPN CONT IV Last administered on 01/15/19at 00:05; Start 01/14/19 at 22:00; Stop 01/15/19 at 21:59; Status DC Artificial Tears (Artificial Tears) 1 drop Q4H PRN OU DRY EYE Last administered on 01/14/19at 16:43; Start 01/14/19 at 15:30 Sodium Bicarbonate (Sodium Bicarb Adult 8.4% Syr) 50 meq STK-MED ONCE .ROUTE ; Start 01/15/19 at 08:25; Stop 01/15/19 at 08:25; Status DC Sodium Bicarbonate (Sodium Bicarb Adult 8.4% Syr) 100 meq 1X ONCE IV Last administered on 01/15/19at 08:31; Start 01/15/19 at 08:30; Stop 01/15/19 at 08:31; Status DC Sodium Chloride 40 meq/Sodium Acetate 40 meq/ Potassium Acetate 10 meq/Calcium Gluconate 10 meq/ Multivitamins 10 ml/Chromium/ Copper/Manganese/ Seleni/Zn 1 ml/ Total Parenteral Nutrition/Amino Acids/Dextrose/ Fat Emulsion Intravenous 1,512 ml @ 63 mls/hr TPN CONT IV ; Start 01/15/19 at 22:00; Stop 01/15/19 at 11:06; Status DC Vasopressin 40 unit/Dextrose 102 ml @ 6 mls/hr CONT PRN IV SEE I/O RECORD Last administered on 01/20/19at 06:19; Start 01/15/19 at 10:00 Sodium Chloride 1,000 ml @ 1,000 mls/hr Q1H PRN IV hypotension; Start 01/15/19 at 10:00; Stop 01/15/19 at 15:59; Status DC Albumin Human 200 ml @ 200 mls/hr 1X PRN PRN IV Hypotension Last administered on 01/15/19at 11:07; Start 01/15/19 at 10:00; Stop 01/15/19 at 15:59; Status DC Sodium Chloride 1,000 ml @ 400 mls/hr Q2H30M PRN IV PATENCY; Start 01/15/19 at 10:00; Stop 01/15/19 at 21:59; Status DC Info (PHARMACY MONITORING -- do not chart) 1 each PRN DAILY PRN MC SEE COMMENTS; Start 01/15/19 at 10:00; Stop 01/15/19 at 10:57; Status DC Info (PHARMACY MONITORING -- do not chart) 1 each PRN DAILY PRN MC SEE COMMENTS; Start 01/15/19 at 10:00; Stop 01/15/19 at 10:57; Status DC Sodium Chloride 40 meq/Sodium Acetate 40 meq/ Potassium Acetate 10 meq/Calcium Gluconate 10 meq/ Multivitamins 10 ml/Chromium/ Copper/Manganese/ Seleni/Zn 1 ml/ Thiamine HCl 100 mg/Total Parenteral Nutrition/Amino Acids/Dextrose/ Fat Emulsion Intravenous 1,512 ml @ 63 mls/hr TPN CONT IV ; Start 01/15/19 at 22:00; Stop 01/15/19 at 14:18; Status DC Potassium Chloride 20 meq/ Bicarbonate Dialysis Soln w/ out KCl 5,010 ml @ 1,000 mls/hr Q5H1M IV Last administered on 01/15/19at 15:40; Start 01/15/19 at 14:00; Stop 01/15/19 at 19:00; Status DC Potassium Chloride 20 meq/ Bicarbonate Dialysis Soln w/ out KCl 5,010 ml @ 1,000 mls/hr Q5H1M IV Last administered on 01/15/19at 15:50; Start 01/15/19 at 14:00; Stop 01/15/19 at 19:00; Status DC Potassium Chloride 20 meq/ Bicarbonate Dialysis Soln w/ out KCl 5,010 ml @ 1,000 mls/hr Q5H1M IV Last administered on 01/15/19at 15:50; Start 01/15/19 at 14:00; Stop 01/15/19 at 19:00; Status DC Albumin Human 100 ml @ 100 mls/hr Q6HRS IV Last administered on 01/20/19at 05:31; Start 01/15/19 at 14:00 Potassium Phosphate 20 mmol/ Sodium Chloride 256.6667 ml @ 128.... PRN Q6HRS PRN IV FOR PO4 < 2.5 Last administered on 01/19/19at 21:40; Start 01/15/19 at 14:00 Sodium Chloride 40 meq/Sodium Acetate 40 meq/ Calcium Gluconate 10 meq/ Multivitamins 10 ml/Chromium/ Copper/Manganese/ Seleni/Zn 1 ml/ Thiamine HCl 100 mg/Total Parenteral Nutrition/Amino Acids/Dextrose/ Fat Emulsion Intravenous 1,512 ml @ 63 mls/hr TPN CONT IV Last administered on 01/15/19at 21:45; Start 01/15/19 at 22:00; Stop 01/16/19 at 21:59; Status DC Potassium Chloride 20 meq/ Bicarbonate Dialysis Soln w/ out KCl 5,010 ml @ 500 mls/hr Q10H2M IV Last administered on 01/17/19at 10:43; Start 01/15/19 at 19:01; Stop 01/17/19 at 15:00; Status DC Potassium Chloride 20 meq/ Bicarbonate Dialysis Soln w/ out KCl 5,010 ml @ 1,200 mls/hr Q4H11M IV Last administered on 01/17/19at 10:36; Start 01/15/19 at 19:01; Stop 01/17/19 at 15:00; Status DC Potassium Chloride 20 meq/ Bicarbonate Dialysis Soln w/ out KCl 5,010 ml @ 1,200 mls/hr Q4H11M IV Last administered on 01/17/19at 00:17; Start 01/15/19 at 19:00; Stop 01/17/19 at 15:00; Status DC Daptomycin 500 mg/ Sodium Chloride 50 ml @ 100 mls/hr Q48H IV Last administered on 01/20/19at 09:16; Start 01/16/19 at 09:00 Sodium Chloride 60 meq/Sodium Acetate 40 meq/ Calcium Gluconate 10 meq/ Multivitamins 10 ml/Chromium/ Copper/Manganese/ Seleni/Zn 1 ml/ Thiamine HCl 100 mg/Total Parenteral Nutrition/Amino Acids/Dextrose/ Fat Emulsion Intravenous 1,512 ml @ 63 mls/hr TPN CONT IV Last administered on 01/16/19at 22:00; S tart 01/16/19 at 22:00; Stop 01/18/19 at 10:50; Status DC Sodium Chloride 80 meq/Calcium Gluconate 10 meq/ Multivitamins 10 ml/Chromium/ Copper/Manganese/ Seleni/Zn 1 ml/ Thiamine HCl 100 mg/Total Parenteral Nutrition/Amino Acids/Dextrose/ Fat Emulsion Intravenous 1,512 ml @ 63 mls/hr TPN CONT IV Last administered on 01/17/19at 21:52; Start 01/17/19 at 22:00; Stop 01/18/19 at 21:59; Status DC Potassium Chloride 20 meq/ Sodium Bicarbonate 40 meq/Bicarbonate Dialysis Soln w/ out KCl 5,050 ml @ 500 mls/hr Q10H6M IV Last administered on 01/18/19at 08:17; Start 01/17/19 at 15:00; Stop 01/18/19 at 18:00; Status DC Potassium Chloride 20 meq/ Sodium Bicarbonate 40 meq/Bicarbonate Dialysis Soln w/ out KCl 5,050 ml @ 1,200 mls/hr Q4H13M IV Last administered on 01/18/19at 06:01; Start 01/17/19 at 15:00; Stop 01/18/19 at 09:51; Status DC Potassium Chloride 20 meq/ Sodium Bicarbonate 40 meq/Bicarbonate Dialysis Soln w/ out KCl 5,050 ml @ 1,200 mls/hr Q4H13M IV Last administered on 01/18/19at 06:01; Start 01/17/19 at 15:00; Stop 01/18/19 at 09:51; Status DC Potassium Phosphate 20 mmol/ Sodium Chloride 256.6667 ml @ 128.... ONCE ONCE IV Last administered on 01/17/19at 18:21; Start 01/17/19 at 17:45; Stop 01/17/19 at 19:44; Status DC Calcium Chloride 12.5 meq/ Magnesium Sulfate 2.5 meq/Potassium Chloride 10 meq/ Sodium Bicarbonate 40 meq/Bicarbonate Dialysis Soln w/ out KCl 5,054.5443 ml @ 1,200 mls/hr Q4H13M IV Last administered on 01/19/19at 03:20; Start 01/18/19 at 10:00; Stop 01/19/19 at 07:47; Status DC Calcium Chloride 12.5 meq/ Magnesium Sulfate 2.5 meq/Potassium Chloride 10 meq/ Sodium Bicarbonate 40 meq/Bicarbonate Dialysis Soln w/ out KCl 5,054.5443 ml @ 1,200 mls/hr Q4H13M IV Last administered on 01/19/19at 03:21; Start 01/18/19 at 10:00; Stop 01/19/19 at 07:47; Status DC Calcium Chloride 12.5 meq/ Magnesium Sulfate 2.5 meq/Potassium Chloride 10 meq/ Sodium Bicarbonate 40 meq/Bicarbonate Dialysis Soln w/ out KCl 5,054.5443 ml @ 500 mls/hr Q10H7M IV Last administered on 01/19/19at 05:16; Start 01/18/19 at 18:00; Stop 01/19/19 at 07:48; Status DC Meropenem 500 mg/ Sodium Chloride 50 ml @ 100 mls/hr Q8HRS IV Last adminis tered on 01/19/19at 06:02; Start 01/18/19 at 14:00; Stop 01/19/19 at 09:24; Status DC Sodium Chloride 80 meq/Calcium Gluconate 10 meq/ Multivitamins 10 ml/Chromium/ Copper/Manganese/ Seleni/Zn 1 ml/ Thiamine HCl 100 mg/Total Parenteral Nutrition/Amino Acids/Dextrose/ Fat Emulsion Intravenous 1,512 ml @ 63 mls/hr TPN CONT IV Last administered on 01/18/19at 21:37; Start 01/18/19 at 22:00; Stop 01/19/19 at 21:59; Status DC Epinephrine HCl 4 mg/Sodium Chloride 254 ml @ 41.822 mls/ hr CONT PRN IV SEE I/O RECORD; Start 01/18/19 at 16:15; Stop 01/19/19 at 18:00; Status DC Methylprednisolone Sodium Succinate (SOLU-Medrol 125MG VIAL) 125 mg 1X ONCE IV Last administered on 01/18/19at 16:30; Start 01/18/19 at 16:30; Stop 01/18/19 at 16:31; Status DC Methylprednisolone Sodium Succinate (SOLU-Medrol 125MG VIAL) 125 mg STK-MED ONCE .ROUTE ; Start 01/18/19 at 16:26; Stop 01/18/19 at 16:26; Status DC Calcium Chloride 12.5 meq/ Potassium Chloride 5 meq/ Sodium Bicarbonate 40 meq/Bicarbonate Dialysis Soln w/ out KCl 5,051.4286 ml @ 1,200 mls/hr Q4H13M IV Last administered on 01/20/19at 07:35; Start 01/19/19 at 08:00; Stop 01/20/19 at 11:30 Calcium Chloride 12.5 meq/ Potassium Chloride 5 meq/ Sodium Bicarbonate 40 meq/Bicarbonate Dialysis Soln w/ out KCl 5,051.4286 ml @ 1,200 mls/hr Q4H13M IV Last administered on 01/20/19at 07:35; Start 01/19/19 at 08:00; Stop 01/20/19 at 11:30 Calcium Chloride 12.5 meq/ Potassium Chloride 5 meq/ Sodium Bicarbonate 40 meq/Bicarbonate Dialysis Soln w/ out KCl 5,051.4286 ml @ 500 mls/hr Q10H7M IV Last administered on 01/20/19at 03:09; Start 01/19/19 at 15:00; Stop 01/20/19 at 11:30 Meropenem 1 gm/ Sodium Chloride 100 ml @ 200 mls/hr Q12H IV Last administered on 01/19/19at 14:36; Start 01/19/19 at 14:00; Stop 01/19/19 at 16:00; Status DC Albumin Human 100 ml @ As Directed STK-MED ONCE IV ; Start 01/19/19 at 10:44; Stop 01/19/19 at 10:44; Status DC Norepinephrine Bitartrate 32 mg/ Sodium Chloride 250 ml @ 7 mls/hr CONT PRN IV SEE I/O RECORD Last administered on 01/19/19at 14:15; Start 01/19/19 at 11:30 Sodium Chloride 80 meq/Calcium Gluconate 10 meq/ Multivitamins 10 ml/Chromium/ Copper/Manganese/ Seleni/Zn 1 ml/ Thiamine HCl 100 mg/Total Parenteral Nutrition/Amino Acids/Dextrose/ Fat Emulsion Intravenous 1,200 ml @ 50 mls/hr TPN CONT IV Last administered on 01/19/19at 21:30; Start 01/19/19 at 22:00 Epinephrine HCl 8 mg/Sodium Chloride 258 ml @ 20.9 mls/hr CONT PRN IV SEE I/O RECORD; Start 01/19/19 at 14:15 Meropenem 1 gm/ Sodium Chloride 50 ml @ 100 mls/hr Q12H IV Last administered on 01/20/19at 02:22; Start 01/20/19 at 02:00 Albumin Human 100 ml @ As Directed STK-MED ONCE IV ; Start 01/19/19 at 17:00; Stop 01/19/19 at 17:00; Status DC Potassium Phosphate 20 mmol/ Sodium Chloride 256.6667 ml @ 128.... 1X ONCE IV Last administered on 01/20/19at 06:19; Start 01/20/19 at 06:15; Stop 01/20/19 at 08:14; Status DC Phytonadione 10 mg/Dextrose 51 ml @ 102 mls/hr 1X ONCE IV ; Start 01/20/19 at 10:45; Stop 01/20/19 at 11:14 Vitals/I & O Vital Sign - Last 24 Hours 01/19/19 01/19/19 01/19/19 01/19/19 11:00 12:00 12:00 12:28 Temp 97.0 97.0 Pulse 120 104 Resp 24 24 B/P (MAP) 118/62 (80) 118/54 (75) Pulse Ox 97 96 96 O2 Delivery Ventilator Mechanical Ventilator Ventilator O2 Flow Rate 2.0 01/19/19 01/19/19 01/19/19 01/19/19 12:31 12:58 13:00 14:00 Pulse 110 118 Resp 24 24 B/P (MAP) 127/61 (83) 128/69 (88) Pulse Ox 96 95 95 96 O2 Delivery Ventilator Ventilator Ventilator O2 Flow Rate 2.0 01/19/19 01/19/19 01/19/19 12/2/19 14:25 15:00 16:00 16:00 Temp 97.2 97.2 Pulse 121 104 Resp 24 24 B/P (MAP) 114/46 (68) 114/46 (68) Pulse Ox 94 95 96 O2 Delivery Ventilator Ventilator Mechanical Ventilator Ventilator 01/19/19 01/19/19 01/19/19 01/19/19 16:12 17:00 17:13 17:43 Pulse 112 Resp 24 B/P (MAP) 133/60 (84) Pulse Ox 92 95 92 95 O2 Delivery Ventilator Ventilator O2 Flow Rate 2.0 2.0 01/19/19 01/19/19 01/19/19 01/19/19 18:00 19:00 19:58 20:00 Pulse 106 120 Resp 24 24 B/P (MAP) 115/65 (82) 116/62 (80) Pulse Ox 95 93 90 O2 Delivery Ventilator Ventilator Ventilator Mechanical Ventilator 01/19/19 01/19/19 01/19/19 01/19/19 20:00 21:00 21:15 21:16 Temp 97.3 97.3 Pulse 92 90 86 Resp 25 24 24 B/P (MAP) 113/50 (71) 141/58 (85) 128/54 (78) Pulse Ox 88 95 95 92 O2 Delivery Ventilator Ventilator Ventilator Ventilator 01/19/19 01/19/19 01/19/19 01/19/19 21:53 22:00 22:15 22:23 Pulse 92 90 Resp 24 24 24 24 B/P (MAP) 136/57 (83) 135/51 (79) Pulse Ox 94 94 94 94 O2 Delivery Ventilator Ventilator Ventilator Ventilator 01/19/19 01/19/19 01/19/19 01/20/19 22:30 23:00 23:49 00:00 Temp 97.6 97.6 Pulse 90 86 94 Resp 24 24 24 B/P (MAP) 111/48 (69) 107/52 (70) 114/61 (78) Pulse Ox 94 95 95 93 O2 Delivery Ventilator Ventilator Ventilator Ventilator 01/20/19 01/20/19 01/20/19 01/20/19 00:00 01:00 01:40 01:45 Pulse 93 93 Resp 24 24 B/P (MAP) 110/49 (69) 128/57 (80) Pulse Ox 94 94 90 O2 Delivery Mechanical Ventilator Ventilator Ventilator Ventilator 01/20/19 01/20/19 01/20/19 01/20/19 02:00 03:00 03:44 04:00 Pulse 87 89 Resp 24 24 B/P (MAP) 103/53 (70) 91/45 (60) Pulse Ox 92 95 95 O2 Delivery Ventilator Ventilator Ventilator Mechanical Ventilator 01/20/19 01/20/19 01/20/19 01/20/19 04:00 05:00 05:10 06:00 Temp 98.0 98.0 Pulse 92 91 93 Resp 24 24 24 B/P (MAP) 97/49 (65) 110/51 (70) 112/50 (70) Pulse Ox 93 94 95 97 O2 Delivery Ventilator Ventilator Ventilator Ventilator 01/20/19 01/20/19 01/20/19 01/20/19 07:00 07:36 08:00 08:00 Temp 98.5 98.5 Pulse 93 88 Resp 24 24 B/P (MAP) 119/60 (79) 124/62 (82) Pulse Ox 97 96 98 O2 Delivery Ventilator Ventilator Mechanical Ventilator Ventilator 01/20/19 01/20/19 01/20/19 01/20/19 09:00 09:23 09:46 10:00 Pulse 88 84 Resp 24 24 B/P (MAP) 94/47 (63) 95/45 (62) Pulse Ox 97 96 96 97 O2 Delivery Ventilator Ventilator Ventilator O2 Flow Rate 2.0 Intake and Output 01/19/19 01/19/19 01/20/19 14:59 22:59 06:59 Intake Total 1623 ml 1723.667 ml Output Total 0 ml 10 ml 0 ml Balance 0 ml 1613 ml 1723.667 ml MAIK GUNN MD Jan 20, 2019 10:25
[2019-01-20] MEDS ORDERED: PHYTONADIONE (VIT K1) IV 10 MG in IV DEXTROSE 5% 50 ML IV ONE (10:45)
[2019-01-20] MEDS ORDERED: CALCIUM CHLORIDE IV SCH (11:30)
[2019-01-20] MEDS ORDERED: POTASSIUM CHLORIDE IV SCH (11:30)
[2019-01-20] MEDS ORDERED: [UNRECOGNIZED DRUG - OTHER] IV SCH (11:30)
--- NOTE | 2019-01-20 11:44 | NUR ---
Critical lab received this am- fibrinogen 90. Dr. Mcgrath paged- return call received, notified of labs. Will plan on giving 2 of cryo, and recheck fibrinogen level one hour after infusion.
[2019-01-20] MEDS: MIDAZOLAM 100mg/100ml NS BAG 100 ML IV PRN (11:55)
--- NOTE | 2019-01-20 12:22 | PDOC ---
G I PROGRESS NOTE Subjective Sedated on ventilator. Objective Slightly less PEEP. Still high NG output. Physical Exam Lungs with maybe more air movement. RRR Abdomen distended, not taut. No bowel sounds heard. Review of Relevant I have reviewed the following items karen (where applicable) has been applied. Labs Laboratory Tests Test 01/18/19 14:00 01/18/19 21:45 01/18/19 22:43 01/18/19 23:29 Sodium Level 142 mmol/L (136-145) 142 mmol/L (136-145) Potassium Level 4.1 mmol/L (3.5-5.1) 5.0 mmol/L (3.5-5.1) Chloride Level 103 mmol/L (98-107) 102 mmol/L (98-107) Carbon Dioxide Level 23 mmol/L (21-32) 19 mmol/L (21-32) Anion Gap 16 (6-14) 21 (6-14) Blood Urea Nitrogen 30 mg/dL (8-26) 28 mg/dL (8-26) Creatinine 1.4 mg/dL (0.7-1.3) 1.4 mg/dL (0.7-1.3) Estimated GFR (Cockcroft-Gault) 56.7 56.7 Glucose Level 156 mg/dL (70-99) 37 mg/dL (70-99) Calcium Level 6.9 mg/dL (8.5-10.1) 6.9 mg/dL (8.5-10.1) Phosphorus Level 2.8 mg/dL (2.6-4.7) 5.0 mg/dL (2.6-4.7) Magnesium Level 2.3 mg/dL (1.8-2.4) 4.8 mg/dL (1.8-2.4) Glucose (Fingerstick) 126 mg/dL (70-99) 103 mg/dL (70-99) Test 01/19/19 04:30 01/19/19 07:59 01/19/19 08:00 01/19/19 09:40 White Blood Count 18.9 x10^3/uL (4.0-11.0) Red Blood Count 2.36 x10^6/uL (4.30-5.70) Hemoglobin 7.7 g/dL (13.0-17.5) Hematocrit 23.6 % (39.0-53.0) Mean Corpuscular Volume 100 fL (79-100) Mean Corpuscular Hemoglobin 33 pg (25-35) Mean Corpuscular Hemoglobin Concent 32 g/dL (31-37) Red Cell Distribution Width 21.5 % (11.5-14.5) Platelet Count 37 x10^3/uL (140-400) Neutrophils (%) (Auto) 88 % (31-73) Lymphocytes (%) (Auto) 8 % (24-48) Monocytes (%) (Auto) 3 % (0-9) Eosinophils (%) (Auto) 1 % (0-3) Basophils (%) (Auto) 1 % (0-3) Neutrophils # (Auto) 16.2 x10^3/uL (1.8-7.7) Lymphocytes # (Auto) 1.4 x10^3/uL (1.0-4.8) Monocytes # (Auto) 0.6 x10^3/uL (0.0-1.1) Eosinophils # (Auto) 0.1 x10^3/uL (0.0-0.7) Basophils # (Auto) 0.1 x10^3/uL (0.0-0.2) Prothrombin Time 23.7 SEC (11.7-14.0) Prothromb Time International Ratio 2.1 (0.8-1.1) Sodium Level 141 mmol/L (136-145) 140 mmol/L (136-145) Potassium Level 5.3 mmol/L (3.5-5.1) 4.8 mmol/L (3.5-5.1) Chloride Level 102 mmol/L (98-107) 101 mmol/L (98-107) Carbon Dioxide Level 22 mmol/L (21-32) 24 mmol/L (21-32) Anion Gap 17 (6-14) 15 (6-14) Blood Urea Nitrogen 28 mg/dL (8-26) 29 mg/dL (8-26) Creatinine 1.4 mg/dL (0.7-1.3) 1.3 mg/dL (0.7-1.3) Estimated GFR (Cockcroft-Gault) 56.7 61.8 Glucose Level 166 mg/dL (70-99) 202 mg/dL (70-99) Calcium Level 7.3 mg/dL (8.5-10.1) 7.1 mg/dL (8.5-10.1) Phosphorus Level 3.9 mg/dL (2.6-4.7) Magnesium Level 4.7 mg/dL (1.8-2.4) Albumin 3.6 g/dL (3.4-5.0) 3.7 g/dL (3.4-5.0) Triglycerides Level 167 mg/dL (0-150) Glucose (Fingerstick) 182 mg/dL (70-99) BUN/Creatinine Ratio 22 (6-20) Lactic Acid Level 9.3 mmol/L (0.4-2.0) Total Bilirubin 15.2 mg/dL (0.2-1.0) Aspartate Amino Transf (AST/SGOT) 349 U/L (15-37) Alanine Aminotransferase (ALT/SGPT) 84 U/L (16-63) Alkaline Phosphatase 178 U/L (46-116) Total Protein 6.5 g/dL (6.4-8.2) Albumin/Globulin Ratio 1.3 (1.0-1.7) O2 Saturation 95 % (92-99) Arterial Blood pH 7.31 (7.35-7.45) Arterial Blood pCO2 at Patient Temp 42 mmHg (35-46) Arterial Blood pO2 at Patient Temp 79 mmHg (85-108) Arterial Blood HCO3 21 mmol/L (21-28) Arterial Blood Base Excess -5 mmol/L (-3-3) FiO2 100 Test 01/19/19 12:52 01/19/19 17:19 01/19/19 20:45 01/20/19 05:15 Platelet Count 28 x10^3/uL (140-400) 24 x10^3/uL (140-400) Prothrombin Time 24.4 SEC (11.7-14.0) 22.0 SEC (11.7-14.0) Prothromb Time International Ratio 2.2 (0.8-1.1) 2.0 (0.8-1.1) Activated Partial Thromboplast Time 36 SEC (24-38) Fibrinogen 112 mg/dL (200-440) D-Dimer (Yudi) > 20.00 ug/mlFEU Sodium Level 142 mmol/L (136-145) 142 mmol/L (136-145) 142 mmol/L (136-145) Potassium Level 4.2 mmol/L (3.5-5.1) 4.2 mmol/L (3.5-5.1) 4.1 mmol/L (3.5-5.1) Chloride Level 102 mmol/L (98-107) 103 mmol/L (98-107) 103 mmol/L (98-107) Carbon Dioxide Level 27 mmol/L (21-32) 28 mmol/L (21-32) 29 mmol/L (21-32) Anion Gap 13 (6-14) 11 (6-14) 10 (6-14) Blood Urea Nitrogen 32 mg/dL (8-26) 32 mg/dL (8-26) 39 mg/dL (8-26) Creatinine 1.3 mg/dL (0.7-1.3) 1.2 mg/dL (0.7-1.3) 1.3 mg/dL (0.7-1.3) Estimated GFR (Cockcroft-Gault) 61.8 67.8 61.8 Glucose Level 202 mg/dL (70-99) 164 mg/dL (70-99) 178 mg/dL (70-99) Lactic Acid Level 8.2 mmol/L (0.4-2.0) 5.9 mmol/L (0.4-2.0) Calcium Level 7.2 mg/dL (8.5-10.1) 7.2 mg/dL (8.5-10.1) 7.1 mg/dL (8.5-10.1) Phosphorus Level 1.9 mg/dL (2.6-4.7) 1.7 mg/dL (2.6-4.7) 1.5 mg/dL (2.6-4.7) Magnesium Level 2.1 mg/dL (1.8-2.4) 2.0 mg/dL (1.8-2.4) 1.9 mg/dL (1.8-2.4) Glucose (Fingerstick) 169 mg/dL (70-99) White Blood Count 12.0 x10^3/uL (4.0-11.0) Red Blood Count 2.15 x10^6/uL (4.30-5.70) Hemoglobin 7.2 g/dL (13.0-17.5) Hematocrit 20.8 % (39.0-53.0) Mean Corpuscular Volume 97 fL (79-100) Mean Corpuscular Hemoglobin 33 pg (25-35) Mean Corpuscular Hemoglobin Concent 35 g/dL (31-37) Red Cell Distribution Width 20.5 % (11.5-14.5) Neutrophils (%) (Auto) 82 % (31-73) Lymphocytes (%) (Auto) 11 % (24-48) Monocytes (%) (Auto) 6 % (0-9) Eosinophils (%) (Auto) 0 % (0-3) Basophils (%) (Auto) 1 % (0-3) Neutrophils # (Auto) 9.8 x10^3/uL (1.8-7.7) Lymphocytes # (Auto) 1.4 x10^3/uL (1.0-4.8) Monocytes # (Auto) 0.8 x10^3/uL (0.0-1.1) Eosinophils # (Auto) 0.0 x10^3/uL (0.0-0.7) Basophils # (Auto) 0.1 x10^3/uL (0.0-0.2) BUN/Creatinine Ratio 30 (6-20) Total Bilirubin 16.2 mg/dL (0.2-1.0) Aspartate Amino Transf (AST/SGOT) 250 U/L (15-37) Alanine Aminotransferase (ALT/SGPT) 75 U/L (16-63) Alkaline Phosphatase 203 U/L (46-116) Total Protein 6.1 g/dL (6.4-8.2) Albumin 3.4 g/dL (3.4-5.0) Albumin/Globulin Ratio 1.3 (1.0-1.7) Test 01/20/19 07:53 01/20/19 09:03 O2 Saturation 90 % (92-99) Arterial Blood pH 7.41 (7.35-7.45) Arterial Blood pCO2 at Patient Temp 40 mmHg (35-46) Arterial Blood pO2 at Patient Temp 58 mmHg (85-108) Arterial Blood HCO3 25 mmol/L (21-28) Arterial Blood Base Excess 0 mmol/L (-3-3) FiO2 100 Fibrinogen 90 mg/dL (200-440) Lactic Acid Level 5.5 mmol/L (0.4-2.0) Laboratory Tests Test 01/19/19 12:52 01/19/19 17:19 01/19/19 20:45 01/20/19 05:15 Platelet Count 28 x10^3/uL (140-400) 24 x10^3/uL (140-400) Prothrombin Time 24.4 SEC (11.7-14.0) 22.0 SEC (11.7-14.0) Prothromb Time International Ratio 2.2 (0.8-1.1) 2.0 (0.8-1.1) Activated Partial Thromboplast Time 36 SEC (24-38) Fibrinogen 112 mg/dL (200-440) D-Dimer (Yudi) > 20.00 ug/mlFEU Sodium Level 142 mmol/L (136-145) 142 mmol/L (136-145) 142 mmol/L (136-145) Potassium Level 4.2 mmol/L (3.5-5.1) 4.2 mmol/L (3.5-5.1) 4.1 mmol/L (3.5-5.1) Chloride Level 102 mmol/L (98-107) 103 mmol/L (98-107) 103 mmol/L (98-107) Carbon Dioxide Level 27 mmol/L (21-32) 28 mmol/L (21-32) 29 mmol/L (21-32) Anion Gap 13 (6-14) 11 (6-14) 10 (6-14) Blood Urea Nitrogen 32 mg/dL (8-26) 32 mg/dL (8-26) 39 mg/dL (8-26) Creatinine 1.3 mg/dL (0.7-1.3) 1.2 mg/dL (0.7-1.3) 1.3 mg/dL (0.7-1.3) Estimated GFR (Cockcroft-Gault) 61.8 67.8 61.8 Glucose Level 202 mg/dL (70-99) 164 mg/dL (70-99) 178 mg/dL (70-99) Lactic Acid Level 8.2 mmol/L (0.4-2.0) 5.9 mmol/L (0.4-2.0) Calcium Level 7.2 mg/dL (8.5-10.1) 7.2 mg/dL (8.5-10.1) 7.1 mg/dL (8.5-10.1) Phosphorus Level 1.9 mg/dL (2.6-4.7) 1.7 mg/dL (2.6-4.7) 1.5 mg/dL (2.6-4.7) Magnesium Level 2.1 mg/dL (1.8-2.4) 2.0 mg/dL (1.8-2.4) 1.9 mg/dL (1.8-2.4) Glucose (Fingerstick) 169 mg/dL (70-99) White Blood Count 12.0 x10^3/uL (4.0-11.0) Red Blood Count 2.15 x10^6/uL (4.30-5.70) Hemoglobin 7.2 g/dL (13.0-17.5) Hematocrit 20.8 % (39.0-53.0) Mean Corpuscular Volume 97 fL (79-100) Mean Corpuscular Hemoglobin 33 pg (25-35) Mean Corpuscular Hemoglobin Concent 35 g/dL (31-37) Red Cell Distribution Width 20.5 % (11.5-14.5) Neutrophils (%) (Auto) 82 % (31-73) Lymphocytes (%) (Auto) 11 % (24-48) Monocytes (%) (Auto) 6 % (0-9) Eosinophils (%) (Auto) 0 % (0-3) Basophils (%) (Auto) 1 % (0-3) Neutrophils # (Auto) 9.8 x10^3/uL (1.8-7.7) Lymphocytes # (Auto) 1.4 x10^3/uL (1.0-4.8) Monocytes # (Auto) 0.8 x10^3/uL (0.0-1.1) Eosinophils # (Auto) 0.0 x10^3/uL (0.0-0.7) Basophils # (Auto) 0.1 x10^3/uL (0.0-0.2) BUN/Creatinine Ratio 30 (6-20) Total Bilirubin 16.2 mg/dL (0.2-1.0) Aspartate Amino Transf (AST/SGOT) 250 U/L (15-37) Alanine Aminotransferase (ALT/SGPT) 75 U/L (16-63) Alkaline Phosphatase 203 U/L (46-116) Total Protein 6.1 g/dL (6.4-8.2) Albumin 3.4 g/dL (3.4-5.0) Albumin/Globulin Ratio 1.3 (1.0-1.7) Test 01/20/19 07:53 01/20/19 09:03 O2 Saturation 90 % (92-99) Arterial Blood pH 7.41 (7.35-7.45) Arterial Blood pCO2 at Patient Temp 40 mmHg (35-46) Arterial Blood pO2 at Patient Temp 58 mmHg (85-108) Arterial Blood HCO3 25 mmol/L (21-28) Arterial Blood Base Excess 0 mmol/L (-3-3) FiO2 100 Fibrinogen 90 mg/dL (200-440) Lactic Acid Level 5.5 mmol/L (0.4-2.0) Microbiology 01/15/19 - Final, Complete 01/15/19 - Final, Complete 01/15/19 - Final, Complete 01/15/19 Gram Stain Evaluation - Final, Complete 01/15/19 Sputum Culture - Final, Complete 01/15/19 Sputum Result 1 - Final, Complete 01/14/19 Blood Culture - Final, Complete NO GROWTH AFTER 5 DAYS 01/08/19 Urine Culture - Final, Complete 01/08/19 Urine Culture Result 1 ([facility]) - Final, Complete Platelets continue to fall. INR up slightly, but not progressive. Fibrinogen l ow. Vitals/I & O Vital Sign - Last 24 Hours 01/19/19 01/19/19 01/19/19 01/19/19 12:28 12:31 12:58 13:00 Pulse 110 Resp 24 B/P (MAP) 127/61 (83) Pulse Ox 96 96 95 95 O2 Delivery Ventilator Ventilator O2 Flow Rate 2.0 2.0 01/19/19 01/19/19 01/19/19 01/19/19 14:00 14:25 15:00 16:00 Pulse 118 121 Resp 24 24 B/P (MAP) 128/69 (88) 114/46 (68) Pulse Ox 96 94 95 O2 Delivery Ventilator Ventilator Ventilator Mechanical Ventilator 01/19/19 01/19/19 01/19/19 01/19/19 16:00 16:12 17:00 17:13 Temp 97.2 97.2 Pulse 104 112 Resp 24 B/P (MAP) 114/46 (68) 133/60 (84) Pulse Ox 96 92 95 92 O2 Delivery Ventilator Ventilator Ventilator O2 Flow Rate 2.0 01/19/19 01/19/19 01/19/19 01/19/19 17:43 18:00 19:00 19:58 Pulse 106 120 Resp 24 24 B/P (MAP) 115/65 (82) 116/62 (80) Pulse Ox 95 95 93 90 O2 Delivery Ventilator Ventilator Ventilator O2 Flow Rate 2.0 01/19/19 01/19/19 01/19/19 01/19/19 20:00 20:00 21:00 21:15 Temp 97.3 97.3 Pulse 92 90 86 Resp 25 24 24 B/P (MAP) 113/50 (71) 141/58 (85) 128/54 (78) Pulse Ox 88 95 95 O2 Delivery Mechanical Ventilator Ventilator Ventilator Ventilator 01/19/19 01/19/19 01/19/19 01/19/19 21:16 21:53 22:00 22:15 Pulse 92 90 Resp 24 24 B/P (MAP) 136/57 (83) 135/51 (79) Pulse Ox 92 94 94 94 O2 Delivery Ventilator Ventilator Ventilator Ventilator 01/19/19 01/19/19 01/19/19 01/19/19 22:23 22:30 23:00 23:49 Pulse 90 86 Resp 24 24 24 B/P (MAP) 111/48 (69) 107/52 (70) Pulse Ox 94 94 95 95 O2 Delivery Ventilator Ventilator Ventilator Ventilator 01/20/19 01/20/19 01/20/19 01/20/19 00:00 00:00 01:00 01:40 Temp 97.6 97.6 Pulse 94 93 Resp 24 24 B/P (MAP) 114/61 (78) 110/49 (69) Pulse Ox 93 94 94 O2 Delivery Ventilator Mechanical Ventilator Ventilator Ventilator 01/20/19 01/20/19 01/20/19 01/20/19 01:45 02:00 03:00 03:44 Pulse 93 87 89 Resp 24 24 24 B/P (MAP) 128/57 (80) 103/53 (70) 91/45 (60) Pulse Ox 90 92 95 95 O2 Delivery Ventilator Ventilator Ventilator Ventilator 01/20/19 01/20/19 01/20/19 01/20/19 04:00 04:00 05:00 05:10 Temp 98.0 98.0 Pulse 92 91 Resp 24 24 B/P (MAP) 97/49 (65) 110/51 (70) Pulse Ox 93 94 95 O2 Delivery Mechanical Ventilator Ventilator Ventilator Ventilator 01/20/19 01/20/19 01/20/19 01/20/19 06:00 07:00 07:36 08:00 Pulse 93 93 Resp 24 24 B/P (MAP) 112/50 (70) 119/60 (79) Pulse Ox 97 97 96 O2 Delivery Ventilator Ventilator Ventilator Mechanical Ventilator 01/20/19 01/20/19 01/20/19 01/20/19 08:00 09:00 09:23 09:46 Temp 98.5 98.5 Pulse 88 88 Resp 24 24 B/P (MAP) 124/62 (82) 94/47 (63) Pulse Ox 98 97 96 96 O2 Delivery Ventilator Ventilator Ventilator O2 Flow Rate 2.0 01/20/19 01/20/19 01/20/19 01/20/19 10:00 10:16 11:00 11:35 Pulse 84 93 Resp 24 24 B/P (MAP) 95/45 (62) 106/49 (68) Pulse Ox 97 97 97 96 O2 Delivery Ventilator Ventilator Ventilator O2 Flow Rate 2.0 Intake and Output 01/19/19 01/19/19 01/20/19 15:00 23:00 07:00 Intake Total 1623 ml 1723.667 ml Output Total 0 ml 10 ml 0 ml Balance 0 ml 1613 ml 1723.667 ml Problem List Problems Medical Problems: (1) Acute hepatic encephalopathy Status: Acute (2) Acute upper GI bleed Status: Acute (3) Ascites Status: Acute (4) Hypokalemia Status: Acute (5) Multiple organ system failure Status: Acute (6) Severe sepsis with acute organ dysfunction Status: Acute Assessment Alcoholic hepatitis. Multiorgan failure. "Compensated" DIC? INR only marginally changing. Ileus persists. Plan of Care: Continue current Tx, Mgmt Plan of Care Note Await Heme/ONC opinion. ANA MCKEON MD Jan 20, 2019 12:22
[2019-01-20] MEDS: [UNRECOGNIZED DRUG - OTHER] IV SCH ×6 (13:33→19:25)
[2019-01-20] MEDS: TPN PER PHARMACY MC PRN (13:34)
--- NOTE | 2019-01-20 13:34 | NUR ---
Pharmacy TPN Dosing Note S: ULI CARRIZALES is a 38 year old M Currently receiving Central Continuous TPN started 01/13/19 B:Pertinent PMH: Ileus, high residuals with tube feeding Height: 5 feet, 7 inches Weight: 113 kg Current diet: NPO LABS: Sodium: 142 Potassium: 4.1 Chloride: 103 Calcium: 7.1 Corrected Calcium: 7.34 Magnesium: 1.9 CO2: 29 SCr: 1.3 Glucose: 178 Albumin: 3.7 AST: 250 ALT: 75 TPN FORMULA: TPN TYPE: Central Continuous AMINO ACIDS: 100 gm DEXTROSE: 225 gm LIPIDS: 20 gm SODIUM CHLORIDE: 80 mEq CALCIUM: 20 mEq MULTIPLE VITAMIN: 10 ml TRACE ELEMENTS: 1 ml TPN PLAN: Serum calcium low, will increase calcium gluconate to 20 mEq/day. Other electrolytes being managed by nephrology via CRRT. Labs per nephrology. R: Continue TPN @ current rate and above formula. Will monitor electrolytes, glucose, and tolerance to TPN. NIC MOE, [facility], 01/20/19 [id number]
[2019-01-20 13:58] LABS: CALCIUM 7.2 mg/dL (8.5-10.1); CREATININE 1.3 mg/dL (0.7-1.3); GFR 61.8; MAGNESIUM 1.8 mg/dL (1.8-2.4); PHOSPHORUS 1.3 mg/dL (2.6-4.7)
[2019-01-20] MEDS ORDERED: POTASSIUM PHOSPHATE DIBASIC 40 MMOL in IV NORMAL SALINE 250ML 250 ML IV ONE (16:00)
--- NOTE | 2019-01-20 16:47 | NUR ---
[id number]- Dr Mcgrath paged, notified of fibrinogen level of 111 after 2 of cryo. Call back received from the on-call donor services team leader, Dr Welsh received- notified of pt status and labs. No new orders at this time.
--- NOTE | 2019-01-20 18:23 | PDOC2 ---
CONSULT Date of Consult Date of Consult DATE: 01/20/19 TIME: 18:04 Reason for consultation: DIC? Consult: Hematology oncology, Dr. Elida Mcgrath History of present illness: He is a 38-year-old man with alcoholic liver disease admitted after projectile vomiting and hematemesis thought due to Lydia-Bruce tear or possibly some alcohol or stress gastritis, apparently he had been feeling ill for quite some time but did not seek medical help and has a history of significant alcohol with current multiorgan failure including liver failure and respiratory failure and renal failure and platelets in the 20,000 range, fibrinogen less than 100, improved to 111 after 2 units of cryo-, currently on CRRT, has anasarca, some ascites, and splenomegaly with hepatomegaly and nephromegaly on ultrasound, being treated with antibiotics for lung infiltrates, the Procalcitonin has been elevated and INR is elevated and PTT has been elevated as well as d-dimer with the low platelets and low fibrinogen. Thrombocytopenia is acute, severe, to 24,000, associated with anemia, worsening over time over the last few days, plt count had actually been 148,000 on 16 January. He received multiple transfusions of red blood cells and cryoprecipitate and FFP. No active bleeding though some rust color coming from his suction tube and fecal occult blood test has been positive, as well as the hematemesis prior to admit. He has had an EGD and hemodialysis catheter placed here. Past medical history: Multiorgan failure Hematemesis Possible Lydia-Bruce tear or alcohol or stress gastritis on EGD End-stage renal disease on CRRT Acute respiratory failure ventilated Thrombocytopenia with anemia Hypertension on pressors Alcoholic hepatitis Hypertension in the past Hepatitis C reactive antibody though RNA negative Mycoplasma serology positive History of sleep apnea Severe protein calorie malnutrition with anasarca Past surgical history: Hemodialysis catheter placed EGD 01/08/19 Allergies: No drug allergies Medications: See attached list, includes PPI, pressor, Aranesp, antibiotics Social history: 40 drinks per week reported, , a daughter Starr 11 Family history: Not obtainable Review of systems: not obtainable as he is sedated and ventilated Physical exam: Vitals reviewed Gen.: Young man with anasarca, bruising, multiple tubes and lines, ventilated, sedated, on pressor HEENT: mucous membranes dry, head normocephalic atraumatic Neck: Supple, no lymphadenopathy on limited exam Lymph nodes: No palpable lymphadenopathy neck or axilla though exam limited Lungs: Breathing on vent w/ 100% FiO2, sl tachypnea Heart: Regular rate and rhythm Abdomen: not obviously tender, firm, distended Extremities: anasarca diffuse LE and UE Skin: bruising, no known skin breakdown Neuro: sedated Psych: not assessible Lab reviewed: White count of 12,000 down from 22,000, hemoglobin of 7.2, platelets of 24, had been 148 and 16 January Lactate 5.5 Creatinine 1.3 down from 3.1 Fibrinogen 111 up from 98 INR 2.0 T bili 16.2, up from 8 previously D-dimer greater than 20 Fecal occult blood test positive Sputum culture grew yeast Urine and blood cultures negative Ammonia 49 Procalcitonin had been 4.7 Toxic granulation and metamyelocytes and no schistocytes noted on heme lab differential PTT had been 43 recently Rads reviewed: Chest x-ray with persistent bilateral lung infiltrates or pulm onary edema, with right-sided improvement Abdominal ultrasound with small ascites, cirrhosis, right liver to 23.5 cm, spleen to 14 cm, and nephromegaly Case discussed with: His nurse, records reviewed and [employer] [facility] [employer] as available, including labs and radiology, please see note for summary details. Assessment and Plan: He is a 38-year-old man with alcoholic liver disease and multiorgan failure Hematemesis: Not actively bleeding, some rust color coming from suction tube but other than fecal occult blood test positive no obvious bleeding, GI has done EGD recently, on PPI Acute renal failure: On CRRT, would hold heparin, do not believe he's receiving any but would hold any if it was going to be given at this point until PF4 is resulted Respiratory failure: Ventilated, on 100% FiO2, pulmonary is following, on antibiotics with treatment for pneumonia as needed Hypotension: On pressor as needed Liver failure: Bilirubin is rising, INR is elevated, fibrinogen is low, GI is involved, prognosis is poor, due to Etoh Thrombocytopenia: With fibrinogen greater than 100 would hold off on further blood products (cryo) or vitamin K w/ elev INR until PF4 is resulted as his platelet count had been normal a few days ago, we'll also check bilateral lower extremity ultrasounds in case some consumptive coagulopathy could be ongoing, for now anticoagulation is not being given with thrombocytopenia and the recent hematemesis and fecal occult blood test positivity, we'll repeat PTT and request heme path review of peripheral smear with metamyelocytes, though suspect related to stress, no schistocytes noted on the hem diff. Also antibiotics could be causing thrombocytopenia? Anemia: Would transfuse for hemoglobin less than 7, on Aranesp, (could potentially increase thrombotic risk), will check ferritin and iron panel Thank you kindly for this consultation, and please don't hesitate to call with further questions. Past Medical History Hepatobiliary: Cirrhosis Past Surgical History Past Surgical History: No pertinent history Family History Family History: Family History Unknown Social History No ALCOHOL: heavy Drugs: None Current Problem List Problem List Problems Medical Problems: (1) Acute hepatic encephalopathy Status: Acute (2) Acute upper GI bleed Status: Acute (3) Ascites Status: Acute (4) Hypokalemia Status: Acute (5) Multiple organ system failure Status: Acute (6) Severe sepsis with acute organ dysfunction Status: Acute Current Medications Current Medications Current Medications Sodium Chloride 1,000 ml @ 1,000 mls/hr 1X ONCE IV Last administered on 01/07/19at 19:27; Start 01/07/19 at 19:30; Stop 01/07/19 at 20:29; Status DC Ondansetron HCl (Zofran) 4 mg 1X ONCE IV Last administered on 01/07/19at 19:28; Start 01/07/19 at 19:30; Stop 01/07/19 at 19:31; Status DC Pantoprazole Sodium (PROTONIX VIAL for IV PUSH) 80 mg 1X ONCE IVP Last a dministered on 01/07/19at 19:50; Start 01/07/19 at 20:00; Stop 01/07/19 at 20:01; Status DC Pantoprazole Sodium 80 mg/ Sodium Chloride 100 ml @ 10 mls/hr 1X ONCE IV Last administered on 01/07/19at 20:00; Start 01/07/19 at 20:00; Stop 01/08/19 at 05 :59; Status DC Sodium Chloride 1,000 ml @ 1,000 mls/hr 1X ONCE IV Last administered on 01/07/19at 22:12; Start 01/07/19 at 21:00; Stop 01/07/19 at 21:59; Status DC Sodium Chloride 1,000 ml @ 1,000 mls/hr 1X ONCE IV Last administered on 01/07/19at 20:40; Start 01/07/19 at 20:45; Stop 01/07/19 at 21:44; Status DC Potassium Chloride/Sodium Chloride 1,000 ml @ 75 mls/hr 1X ONCE IV Last administered on 01/07/19at 21:16; Start 01/07/19 at 21:30; Stop 01/08/19 at 10:49; Status DC Vancomycin HCl (Vanco Per Pharmacy) 1 each PRN DAILY PRN MC SEE COMMENTS Last administered on 01/08/19at 00:43; Start 01/07/19 at 21:00; Stop 01/08/19 at 06:39; Status DC Piperacillin Sod/ Tazobactam Sod (Zosyn Per Pharmacy) 1 each PRN DAILY PRN MC SEE COMMENTS; Start 01/07/19 at 21:00; Stop 01/18/19 at 12:16; Status DC Piperacillin Sod/ Tazobactam Sod 3.375 gm/Sodium Chloride 50 ml @ 100 mls/hr Q6HRS IV Last administered on 01/18/19at 05:54; Start 01/07/19 at 22:00; Stop 01/18/19 at 12:16; Status DC Vancomycin HCl 2 gm/Sodium Chloride 500 ml @ 250 mls/hr 1X ONCE IV Last administered on 01/07/19at 22:11; Start 01/07/19 at 22:00; Stop 01/07/19 at 23:59; Status DC Lorazepam (Ativan Inj) 1 mg 1X ONCE IV Last administered on 01/07/19at 23:22; Start 01/07/19 at 23:30; Stop 01/07/19 at 23:31; Status DC Lorazepam (Ativan Inj) 2 mg STK-MED ONCE .ROUTE ; Start 01/07/19 at 23:20; Stop 01/07/19 at 23:21; Status DC Vancomycin HCl 1.5 gm/Sodium Chloride 500 ml @ 250 mls/hr Q12H IV ; Start 01/08/19 at 10:00; Stop 01/08/19 at 06:39; Status DC Vancomycin HCl (Vancomycin Trough Level) 1 each 1X ONCE MC ; Start 01/09/19 at 09:30; Stop 01/09/19 at 09:31; Status Cancel Ondansetron HCl (Zofran) 4 mg PRN Q6HRS PRN IVP NAUSEA/VOMITING; Start 01/08/19 at 04:00; Status Cancel Pantoprazole Sodium 80 mg/ Sodium Chloride 100 ml @ 10 mls/hr Q10H IV Last administered on 01/09/19at 02:00; Start 01/08/19 at 06:00; Stop 01/09/19 at 11:00; Status DC Multivitamins 10 ml/Thiamine HCl 100 mg/Folic Acid 1 mg/Sodium Chloride 1,011.2 ml @ 100 mls/ hr DAILY IV Last administered on 01/12/19at 10:29; Start 01/08/19 at 09:00; Stop 01/12/19 at 19:07; Status DC Lorazepam (Ativan Inj) 2 mg PRN Q1HR PRN IV For CIWA 8-14 Last administered on 01/14/19at 21:01; Start 01/08/19 at 07:15 Lorazepam (Ativan Inj) 4 mg PRN Q1HR PRN IV For CIWA 15 or greater Last administered on 01/15/19at 08:40; Start 01/08/19 at 07:15 Haloperidol Lactate (Haldol Inj) 5 mg PRN Q4HRS PRN IVP Hallucinatns,Confusn,Delirium; Start 01/08/19 at 07:15 Diphenhydramine HCl (Benadryl) 25 mg PRN Q15MIN PRN IVP EPS symptoms 2'Haldol admin; Start 01/08/19 at 07:15 Clonidine HCl (Catapres) 0.1 mg PRN Q1HR PRN PO SBP > 180 or DBP > 100, MRX3; Start 01/08/19 at 07:15 Sodium Bicarbonate (Sodium Bicarb Adult 8.4% Syr) 50 meq 1X ONCE IV Last administered on 01/08/19at 08:04; Start 01/08/19 at 08:00; Stop 01/08/19 at 08:01; Status DC Propofol 100 ml @ As Directed STK-MED ONCE IV ; Start 01/08/19 at 08:19; Stop 01/08/19 at 08:19; Status DC Succinylcholine Chloride (Anectine) 200 mg STK-MED ONCE .ROUTE ; Start 01/08/19 at 08:19; Stop 01/08/19 at 08:19; Status DC Propofol 100 ml @ As Directed STK-MED ONCE IV ; Start 01/08/19 at 08:29; Stop 01/08/19 at 08:30; Status DC Fentanyl Citrate 30 ml @ 0 mls/hr CONT PRN PRN IV PER PROTOCOL Last administered on 01/20/19at 15:09; Start 01/08/19 at 09:00 Naloxone HCl (Narcan) 0.4 mg PRN Q2MIN PRN IV SEE INSTRUCTIONS; Start 01/08/19 at 09:00 Sodium Chloride 1,000 ml @ 25 mls/hr Q24H IV Last administered on 01/17/19at 13:38; Start 01/08/19 at 08:54 Fentanyl Citrate (Fentanyl 2ml Vial) 100 mcg STK-MED ONCE .ROUTE ; Start 01/08/19 at 08:55; Stop 01/08/19 at 08:55; Status DC Octreotide Acetate 500 mcg/ Sodium Chloride 101 ml @ 0 mls/hr CONT PRN IV SEE I/O RECORD Last administered on 01/08/19at 13:56; Start 01/08/19 at 09:00; Stop 01/08/19 at 16:55; Status DC Phytonadione (Vitamin K Ampule) 10 mg 1X ONCE SQ Last administered on 01/08/19at 09:56; Start 01/08/19 at 09:15; Stop 01/08/19 at 09:16; Status DC Metoclopramide HCl (Reglan Vial) 10 mg 1X ONCE IVP Last administered on 01/08/19at 14:36; Start 01/08/19 at 11:00; Stop 01/08/19 at 11:01; Status DC Midazolam HCl (Versed) 5 mg STK-MED ONCE .ROUTE ; Start 01/08/19 at 09:00; Stop 01/08/19 at 09:01; Status DC Acetaminophen (Tylenol) 500 mg PRN Q6HRS PRN PO MILD PAIN / TEMP Last administered on 01/11/19at 17:46; Start 01/08/19 at 09:15; Stop 01/13/19 at 09:11; Status DC Tramadol HCl (Ultram) 50 mg PRN Q6HRS PRN PO PAIN MODERATE; Start 01/08/19 at 09:15 Morphine Sulfate (Morphine Sulfate) 2 mg PRN Q2HR PRN IV PAIN; Start 01/08/19 at 09:15 Ondansetron HCl (Zofran) 4 mg PRN Q6HRS PRN IVP NAUSEA/VOMITING, 1ST CHOICE; Start 01/08/19 at 09:15 Fentanyl Citrate (Fentanyl 2ml Vial) 100 mcg 1X ONCE IVP Last administered on 01/08/19at 09:42; Start 01/08/19 at 09:45; Stop 01/08/19 at 09:46; Status DC Midazolam HCl (Versed) 5 mg 1X ONCE IV Last administered on 01/08/19at 09:41; Start 01/08/19 at 09:45; Stop 01/08/19 at 09:46; Status DC Succinylcholine Chloride (Anectine) 200 mg 1X ONCE IV Last administered on 01/08/19at 09:41; Start 01/08/19 at 09:45; Stop 01/08/19 at 09:46; Status DC Propofol 100 ml @ 1.524 mls/ hr CONT PRN IV SEE I/O RECORD Last administered on 01/14/19at 03:56; Start 01/08/19 at 09:45 Midazolam HCl 100 ml @ 5 mls/hr CONT PRN IV SEE I/O RECORD Last administered on 01/20/19at 11:55; Start 01/08/19 at 11:15 Vecuronium Banks (Norcuron Bolus) 6 mg PRN Q4HRS PRN IV VENT ASYNCHRONY Last administered on 01/18/19at 11:14; Start 01/08/19 at 12:00 Benzocaine (Hurricaine One) 2 spray STK-MED ONCE .ROUTE ; Start 01/07/19 at 12:00; Stop 01/08/19 at 14:20; Status DC Lidocaine HCl (Xylocaine 2% Topical 5gm Tube) 5 amanda STK-MED ONCE TP ; Start 01/07/19 at 12:00; Stop 01/08/19 at 14:20; Status DC Lactobacillus Rhamnosus (Culturelle) 1 cap BID PO ; Start 01/08/19 at 21:00; Stop 01/09/19 at 09:29; Status DC Acetaminophen (Tylenol Supp) 650 mg PRN Q6HRS PRN NJ MILD PAIN / TEMP Last administered on 01/09/19at 23:44; Start 01/08/19 at 18:15 Norepinephrine Bitartrate 250 ml @ 18.938 mls/ hr CONT PRN IV SEE I/O RECORD Last administered on 01/19/19at 06:31; Start 01/09/19 at 01:45; Stop 01/19/19 at 11:30; Status DC Potassium Chloride (Klor-Con) 40 meq 1X ONCE PO Last administered on 01/09at 11:34; Start 01/09/19 at 09:45; Stop 01/09/19 at 09:46; Status DC Metoclopramide HCl (Reglan Vial) 10 mg PRN Q6HRS PRN IVP NAUSEA/VOMITING, 2ND CHOICE Last administered on 01/14/19at 21:01; Start 01/09/19 at 10:15 Albumin Human 100 ml @ 100 mls/hr 1X ONCE IV Last administered on 01/09/19at 10:49; Start 01/09/19 at 10:15; Stop 01/09/19 at 11:14; Status DC Lactulose (LACTULOSE 300ML for RECTAL) 200 gm Q6HRS NJ ; Start 01/09/19 at 12:00; Stop 01/09/19 at 11:04; Status DC Insulin Human Lispro (HumaLOG) 0-9 UNITS TIDWMEALS SQ Last administered on 01/20/19at 17:26; Start 01/09/19 at 12:00 Dextrose (Dextrose 50%-Water Syringe) 12.5 gm PRN Q15MIN PRN IV SEE COMMENTS Last administered on 01/18/19at 22:35; Start 01/09/19 at 10:30 Fentanyl Citrate (Fentanyl 600 Mcg/30 ml SCALEHOUSE ATTENDANT) 600 mcg STK-MED ONCE IV ; Start 01/08/19 at 15:25; Stop 01/09/19 at 10:27; Status DC Pantoprazole Sodium (PROTONIX VIAL for IV PUSH) 40 mg DAILYAC IVP Last administered on 01/20/19at 07:49; Start 01/10/19 at 07:30 Lactulose (Lactulose) 20 gm DAILY PO Last administered on 01/12/19at 08:24; Start 01/09/19 at 11:30; Stop 01/12/19 at 10:12; Status DC Potassium Bicarbonate (Potassium Effervescent Tablet) 40 meq BIDWMEALS FT Last administered on 01/10/19at 17:49; Start 01/10/19 at 09:00; Stop 01/11/19 at 09:20; Status DC Linezolid/Dextrose 300 ml @ 300 mls/hr Q12HR IV Last administered on at 08:26; Start 01/11/19 at 13:00; Stop 01/16/19 at 08:29; Status DC Perflutren Protein Type A Microsphe (Optison) 0.66 mg 1X ONCE IV ; Start 01/11/19 at 13:30; Stop 01/11/19 at 13:31; Status DC Albumin Human 100 ml @ 100 mls/hr 1X ONCE IV Last administered on 01/12/19at 08:25; Start 01/12/19 at 07:45; Stop 01/12/19 at 08:44; Status DC Lactulose (Lactulose) 20 gm PRN DAILY PRN PO constipation; Start 01/12/19 at 10:15; Stop 01/13/19 at 09:11; Status DC Acetaminophen (Tylenol) 650 mg PRN Q6HRS PRN PEG MILD PAIN / TEMP Last administered on 01/14/19at 09:11; Start 01/12/19 at 16:30 Lactulose (Lactulose) 20 gm TID PO Last administered on 01/14/19at 21:01; Start 01/13/19 at 10:00 Albumin Human 500 ml @ 125 mls/hr 1X ONCE IV Last administered on 01/13/19at 09:40; Start 01/13/19 at 10:00; Stop 01/13/19 at 13:59; Status DC Bisacodyl (Dulcolax Supp) 10 mg 1X ONCE NJ Last administered on 01/13/19at 10:14; Start 01/13/19 at 11:00; Stop 01/13/19 at 11:01; Status DC Lidocaine HCl (Buffered Lidocaine 1%) 3 ml 1X ONCE INJ Last administered on 01/13/19at 11:00; Start 01/13/19 at 11:00; Stop 01/13/19 at 11:01; Status DC Heparin Sodium (Porcine) (Heparin Sodium) 10,000 unit STK-MED ONCE .ROUTE ; Start 01/13/19 at 10:59; Stop 01/13/19 at 11:00; Status DC Darbepoetin Giorgi (ARANESP for DIALYSIS PTS) 60 mcg WEEKLYHS SQ Last administered on 01/13/19at 20:46; Start 01/13/19 at 21:00 Info (Tpn Per Pharmacy) 1 each PRN DAILY PRN MC SEE COMMENTS Last administered on 01/20/19at 13:34; Start 01/13/19 at 11:15 Sodium Chloride 1,000 ml @ 1,000 mls/hr Q1H PRN IV hypotension; Start 01/13/19 at 11:30; Stop 01/13/19 at 19:00; Status DC Albumin Human 200 ml @ 200 mls/hr 1X PRN PRN IV Hypotension; Start 01/13/19 at 11:30; Stop 01/13/19 at 17:29; Status DC Sodium Chloride 1,000 ml @ 400 mls/hr Q2H30M PRN IV PATENCY; Start 01/13/19 at 11:30; Stop 01/13/19 at 19:00; Status DC Info (PHARMACY MONITORING -- do not chart) 1 each PRN DAILY PRN MC SEE COMMENTS; Start 01/13/19 at 11:30 Info (PHARMACY MONITORING -- do not chart) 1 each PRN DAILY PRN MC SEE COMMENTS; Start 01/13/19 at 11:30; Status UNV Sodium Acetate 40 meq/Potassium Acetate 30 meq/ Calcium Gluconate 10 meq/ Multivitamins 10 ml/Chromium/ Copper/Manganese/ Seleni/Zn 1 ml/ Total Parenteral Nutrition/Amino Acids/Dextrose/ Fat Emulsion Intravenous 1,512 ml @ 63 mls/hr TPN CONT IV Last administered on 01/13/19at 21:54; Start 01/13/19 at 22:00; Stop 01/14/19 at 21:59; Status DC Multi-Ingred Cream/Lotion/Oil/ Oint (Artificial Tears Eye Ointment) 1 amanda PRN Q1HR PRN OU DRY EYE Last administered on 01/13/19at 17:14; Start 01/13/19 at 16:45 Docusate Sodium (Enemeez) 283 mg 1X ONCE NJ Last administered on 01/13/19at 17:14; Start 01/13/19 at 16:45; Stop 01/13/19 at 16:47; Status DC Levofloxacin/ Dextrose 100 ml @ 100 mls/hr Q24H IV Last administered on 01/20/19at 07:50; Start 01/14/19 at 09:00 Metoclopramide HCl (Reglan Vial) 5 mg 1X ONCE IVP Last administered on 01/14/19at 10:51; Start 01/14/19 at 10:30; Stop 01/14/19 at 10:31; Status DC Dexmedetomidine HCl 400 mcg/ Sodium Chloride 100 ml @ 0 mls/hr CONT PRN IV AGITATION Last administered on 01/20/19at 17:39; Start 01/14/19 at 11:30 Sodium Chloride 1,000 ml @ 1,000 mls/hr Q1H PRN IV hypotension; Start 01/14/19 at 11:26; Stop 01/14/19 at 17:25; Status DC Albumin Human 200 ml @ 200 mls/hr 1X PRN PRN IV Hypotension; Start 01/14/19 at 11:30; Stop 01/14/19 at 17:29; Status DC Sodium Chloride 1,000 ml @ 400 mls/hr Q2H30M PRN IV PATENCY; Start 01/14/19 at 11:26; Stop 01/14/19 at 23:25; Status DC Info (PHARMACY MONITORING -- do not chart) 1 each PRN DAILY PRN MC SEE COMMENTS; Start 01/14/19 at 11:30; Status UNV Info (PHARMACY MONITORING -- do not chart) 1 each PRN DAILY PRN MC SEE COMMENTS; Start 01/14/19 at 11:30; Status UNV Sodium Chloride 30 meq/Sodium Acetate 40 meq/ Potassium Acetate 30 meq/Calcium Gluconate 10 meq/ Multivitamins 10 ml/Chromium/ Copper/Manganese/ Seleni/Zn 1 ml/ Total Parenteral Nutrition/Amino Acids/Dextrose/ Fat Emulsion Intravenous 1,512 ml @ 63 mls/hr TPN CONT IV Last administered on 01/15/19at 00:05; Start 01/14/19 at 22:00; Stop 01/15/19 at 21:59; Status DC Artificial Tears (Artificial Tears) 1 drop Q4H PRN OU DRY EYE Last administered on 01/14/19at 16:43; Start 01/14/19 at 15:30 Sodium Bicarbonate (Sodium Bicarb Adult 8.4% Syr) 50 meq STK-MED ONCE .ROUTE ; Start 01/15/19 at 08:25; Stop 01/15/19 at 08:25; Status DC Sodium Bicarbonate (Sodium Bicarb Adult 8.4% Syr) 100 meq 1X ONCE IV Last administered on 01/15/19at 08:31; Start 01/15/19 at 08:30; Stop 01/15/19 at 08:31; Status DC Sodium Chloride 40 meq/Sodium Acetate 40 meq/ Potassium Acetate 10 meq/Calcium Gluconate 10 meq/ Multivitamins 10 ml/Chromium/ Copper/Manganese/ Seleni/Zn 1 ml/ Total Parenteral Nutrition/Amino Acids/Dextrose/ Fat Emulsion Intravenous 1,512 ml @ 63 mls/hr TPN CONT IV ; Start 01/15/19 at 22:00; Stop 01/15/19 at 11:06; Status DC Vasopressin 40 unit/Dextrose 102 ml @ 6 mls/hr CONT PRN IV SEE I/O RECORD Last administered on 01/20/19at 06:19; Start 01/15/19 at 10:00 Sodium Chloride 1,000 ml @ 1,000 mls/hr Q1H PRN IV hypotension; Start 01/15/19 at 10:00; Stop 01/15/19 at 15:59; Status DC Albumin Human 200 ml @ 200 mls/hr 1X PRN PRN IV Hypotension Last administered on 01/15/19at 11:07; Start 01/15/19 at 10:00; Stop 01/15/19 at 15:59; Status DC Sodium Chloride 1,000 ml @ 400 mls/hr Q2H30M PRN IV PATENCY; Start 01/15/19 at 10:00; Stop 01/15/19 at 21:59; Status DC Info (PHARMACY MONITORING -- do not chart) 1 each PRN DAILY PRN MC SEE COMMENTS; Start 01/15/19 at 10:00; Stop 01/15/19 at 10:57; Status DC Info (PHARMACY MONITORING -- do not chart) 1 each PRN DAILY PRN MC SEE COMMENTS; Start 01/15/19 at 10:00; Stop 01/15/19 at 10:57; Status DC Sodium Chloride 40 meq/Sodium Acetate 40 meq/ Potassium Acetate 10 meq/Calcium Gluconate 10 meq/ Multivitamins 10 ml/Chromium/ Copper/Manganese/ Seleni/Zn 1 ml/ Thiamine HCl 100 mg/Total Parenteral Nutrition/Amino Acids/Dextrose/ Fat Emulsion Intravenous 1,512 ml @ 63 mls/hr TPN CONT IV ; Start 01/15/19 at 2 2:00; Stop 01/15/19 at 14:18; Status DC Potassium Chloride 20 meq/ Bicarbonate Dialysis Soln w/ out KCl 5,010 ml @ 1,000 mls/hr Q5H1M IV Last administered on 01/15/19at 15:40; Start 01/15/19 at 14:00; Stop 01/15/19 at 19:00; Status DC Potassium Chloride 20 meq/ Bicarbonate Dialysis Soln w/ out KCl 5,010 ml @ 1,000 mls/hr Q5H1M IV Last administered on 01/15/19at 15:50; Start 01/15/19 at 14:00; Stop 01/15/19 at 19:00; Status DC Potassium Chloride 20 meq/ Bicarbonate Dialysis Soln w/ out KCl 5,010 ml @ 1,000 mls/hr Q5H1M IV Last administered on 01/15/19at 15:50; Start 01/15/19 at 14:00; Stop 01/15/19 at 19:00; Status DC Albumin Human 100 ml @ 100 mls/hr Q6HRS IV Last administered on 01/20/19at 17:25; Start 01/15/19 at 14:00 Potassium Phosphate 20 mmol/ Sodium Chloride 256.6667 ml @ 128.... PRN Q6HRS PRN IV FOR PO4 < 2.5 Last administered on 01/19/19at 21:40; Start 01/15/19 at 14:00 Sodium Chloride 40 meq/Sodium Acetate 40 meq/ Calcium Gluconate 10 meq/ Multivitamins 10 ml/Chromium/ Copper/Manganese/ Seleni/Zn 1 ml/ Thiamine HCl 100 mg/Total Parenteral Nutrition/Amino Acids/Dextrose/ Fat Emulsion Intravenous 1,512 ml @ 63 mls/hr TPN CONT IV Last administered on 01/15/19at 21:45; Start 01/15/19 at 22:00; Stop 01/16/19 at 21:59; Status DC Potassium Chloride 20 meq/ Bicarbonate Dialysis Soln w/ out KCl 5,010 ml @ 500 mls/hr Q10H2M IV Last administered on 01/17/19at 10:43; Start 01/15/19 at 19:01; Stop 01/17/19 at 15:00; Status DC Potassium Chloride 20 meq/ Bicarbonate Dialysis Soln w/ out KCl 5,010 ml @ 1,200 mls/hr Q4H11M IV Last administered on 01/17/19at 10:36; Start 01/15/19 at 19:01; Stop 01/17/19 at 15:00; Status DC Potassium Chloride 20 meq/ Bicarbonate Dialysis Soln w/ out KCl 5,010 ml @ 1,200 mls/hr Q4H11M IV Last administered on 01/17/19at 00:17; Start 01/15/19 at 19:00; Stop 01/17/19 at 15:00; Status DC Daptomycin 500 mg/ Sodium Chloride 50 ml @ 100 mls/hr Q48H IV Last administered on 01/20/19at 09:16; Start 01/16/19 at 09:00 Sodium Chloride 60 meq/Sodium Acetate 40 meq/ Calcium Gluconate 10 meq/ Multivitamins 10 ml/Chromium/ Copper/Manganese/ Seleni/Zn 1 ml/ Thiamine HCl 100 mg/Total Parenteral Nutrition/Amino Acids/Dextrose/ Fat Emulsion Intravenous 1,512 ml @ 63 mls/hr TPN CONT IV Last administered on 01/16/19at 22:00; Start 01/16/19 at 22:00; Stop 01/18/19 at 10:50; Status DC Sodium Chloride 80 meq/Calcium Gluconate 10 meq/ Multivitamins 10 ml/Chromium/ Copper/Manganese/ Seleni/Zn 1 ml/ Thiamine HCl 100 mg/Total Parenteral Nutrition/Amino Acids/Dextrose/ Fat Emulsion Intravenous 1,512 ml @ 63 mls/hr TPN CONT IV Last administered on 01/17/19at 21:52; Start 01/17/19 at 22:00; Stop 01/18/19 at 21:59; Status DC Potassium Chloride 20 meq/ Sodium Bicarbonate 40 meq/Bicarbonate Dialysis Soln w/ out KCl 5,050 ml @ 500 mls/hr Q10H6M IV Last administered on 01/18/19at 08:17; Start 01/17/19 at 15:00; Stop 01/18/19 at 18:00; Status DC Potassium Chloride 20 meq/ Sodium Bicarbonate 40 meq/Bicarbonate Dialysis Soln w/ out KCl 5,050 ml @ 1,200 mls/hr Q4H13M IV Last administered on 01/18/19at 06:01; Start 01/17/19 at 15:00; Stop 01/18/19 at 09:51; Status DC Potassium Chloride 20 meq/ Sodium Bicarbonate 40 meq/Bicarbonate Dialysis Soln w/ out KCl 5,050 ml @ 1,200 mls/hr Q4H13M IV Last administered on 01/18/19at 06:01; Start 01/17/19 at 15:00; Stop 01/18/19 at 09:51; Status DC Potassium Phosphate 20 mmol/ Sodium Chloride 256.6667 ml @ 128.... ONCE ONCE IV Last administered on 01/17/19at 18:21; Start 01/17/19 at 17:45; Stop 01/17/19 at 19:44; Status DC Calcium Chloride 12.5 meq/ Magnesium Sulfate 2.5 meq/Potassium Chloride 10 meq/ Sodium Bicarbonate 40 meq/Bicarbonate Dialysis Soln w/ out KCl 5,054.5443 ml @ 1,200 mls/hr Q4H13M IV Last administered on 01/19/19at 03:20; Start 01/18/19 at 10:00; Stop 01/19/19 at 07:47; Status DC Calcium Chloride 12.5 meq/ Magnesium Sulfate 2.5 meq/Potassium Chloride 10 meq/ Sodium Bicarbonate 40 meq/Bicarbonate Dialysis Soln w/ out KCl 5,054.5443 ml @ 1,200 mls/hr Q4H13M IV Last administered on 01/19/19at 03:21; Start 01/18/19 at 10:00; Stop 01/19/19 at 07:47; Status DC Calcium Chloride 12.5 meq/ Magnesium Sulfate 2.5 meq/Potassium Chloride 10 meq/ Sodium Bicarbonate 40 meq/Bicarbonate Dialysis Soln w/ out KCl 5,054.5443 ml @ 500 mls/hr Q10H7M IV Last administered on 01/19/19at 05:16; Start 01/18/19 at 18:00; Stop 01/19/19 at 07:48; Status DC Meropenem 500 mg/ Sodium Chloride 50 ml @ 100 mls/hr Q8HRS IV Last administered on 01/19/19at 06:02; Start 01/18/19 at 14:00; Stop 01/19/19 at 09:24; Status DC Sodium Chloride 80 meq/Calcium Gluconate 10 meq/ Multivitamins 10 ml/Chromium/ Copper/Manganese/ Seleni/Zn 1 ml/ Thiamine HCl 100 mg/Total Parenteral Nutrition /Amino Acids/Dextrose/ Fat Emulsion Intravenous 1,512 ml @ 63 mls/hr TPN CONT IV Last administered on 01/18/19at 21:37; Start 01/18/19 at 22:00; Stop 01/19/19 at 21:59; Status DC Epinephrine HCl 4 mg/Sodium Chloride 254 ml @ 41.822 mls/ hr CONT PRN IV SEE I/O RECORD; Start 01/18/19 at 16:15; Stop 01/19/19 at 18:00; Status DC Methylprednisolone Sodium Succinate (SOLU-Medrol 125MG VIAL) 125 mg 1X ONCE IV Last administered on 01/18/19at 16:30; Start 01/18/19 at 16:30; Stop 01/18/19 at 16:31; Status DC Methylprednisolone Sodium Succinate (SOLU-Medrol 125MG VIAL) 125 mg STK-MED ONCE .ROUTE ; Start 01/18/19 at 16:26; Stop 01/18/19 at 16:26; Status DC Calcium Chloride 12.5 meq/ Potassium Chloride 5 meq/ Sodium Bicarbonate 40 meq/Bicarbonate Dialysis Soln w/ out KCl 5,051.4286 ml @ 1,200 mls/hr Q4H13M IV Last administered on 01/20/19at 11:31; Start 01/19/19 at 08:00; Stop 01/20/19 at 11:30; Status DC Calcium Chloride 12.5 meq/ Potassium Chloride 5 meq/ Sodium Bicarbonate 40 meq/Bicarbonate Dialysis Soln w/ out KCl 5,051.4286 ml @ 1,200 mls/hr Q4H13M IV Last administered on 01/20/19at 11:30; Start 01/19/19 at 08:00; Stop 01/20/19 at 11:30; Status DC Calcium Chloride 12.5 meq/ Potassium Chloride 5 meq/ Sodium Bicarbonate 40 meq/Bicarbonate Dialysis Soln w/ out KCl 5,051.4286 ml @ 500 mls/hr Q10H7M IV Last administered on 01/20/19at 03:09; Start 01/19/19 at 15:00; Stop 01/20/19 at 11:30; Status DC Meropenem 1 gm/ Sodium Chloride 100 ml @ 200 mls/hr Q12H IV Last administered on 01/19/19at 14:36; Start 01/19/19 at 14:00; Stop 01/19/19 at 16:00; Status DC Albumin Human 100 ml @ As Directed STK-MED ONCE IV ; Start 01/19/19 at 10:44; Stop 01/19/19 at 10:44; Status DC Norepinephrine Bitartrate 32 mg/ Sodium Chloride 250 ml @ 7 mls/hr CONT PRN IV SEE I/O RECORD Last administered on 01/19/19at 14:15; Start 01/19/19 at 11:30 Sodium Chloride 80 meq/Calcium Gluconate 10 meq/ Multivitamins 10 ml/Chromium/ Copper/Manganese/ Seleni/Zn 1 ml/ Thiamine HCl 100 mg/Total Parenteral Nutrition/Amino Acids/Dextrose/ Fat Emulsion Intravenous 1,200 ml @ 50 mls/hr TPN CONT IV Last administered on 01/19/19at 21:30; Start 01/19/19 at 22:00; Stop 01/20/19 at 21:59 Epinephrine HCl 8 mg/Sodium Chloride 258 ml @ 20.9 mls/hr CONT PRN IV SEE I/O RECORD; Start 01/19/19 at 14:15 Meropenem 1 gm/ Sodium Chloride 50 ml @ 100 mls/hr Q12H IV Last administered on 01/20/19at 15:01; Start 01/20/19 at 02:00 Albumin Human 100 ml @ As Directed STK-MED ONCE IV ; Start 01/19/19 at 17:00; Stop 01/19/19 at 17:00; Status DC Potassium Phosphate 20 mmol/ Sodium Chloride 256.6667 ml @ 128.... 1X ONCE IV Last administered on 01/20/19at 06:19; Start 01/20/19 at 06:15; Stop 01/20/19 at 08:14; Status DC Phytonadione 10 mg/Dextrose 51 ml @ 102 mls/hr 1X ONCE IV Last administered on 01/20/19at 11:07; Start 01/20/19 at 10:45; Stop 01/20/19 at 11:14; Status DC Calcium Chloride 12.5 meq/ Potassium Chloride 5 meq/ Bicarbonate Dialysis Soln w/ out KCl 5,011.4286 ml @ 1,200 mls/hr Q4H11M IV Last administered on 01/20/19at 15:44; Start 01/20/19 at 11:00 Calcium Chloride 12.5 meq/ Potassium Chloride 5 meq/ Bicarbonate Dialysis Soln w/ out KCl 5,011.4286 ml @ 1,200 mls/hr Q4H11M IV ; Start 01/20/19 at 11:30; Stop 01/20/19 at 10:31; Status DC Calcium Chloride 12.5 meq/ Potassium Chloride 5 meq/ Bicarbonate Dialysis Soln w/ out KCl 5,011.4286 ml @ 1,200 mls/hr Q4H11M IV Last administered on 01/20/19at 15:44; Start 01/20/19 at 10:30 Calcium Chloride 12.5 meq/ Potassium Chloride 5 meq/ Bicarbonate Dialysis Soln w/ out KCl 5,011.4286 ml @ 500 mls/hr Q10H2M IV ; Start 01/20/19 at 11:30 Sodium Chloride 80 meq/Calcium Gluconate 20 meq/ Multivitamins 10 ml/Chromium/ Copper/Manganese/ Seleni/Zn 1 ml/ Thiamine HCl 100 mg/Total Parenteral Nutrition/Amino Acids/Dextrose/ Fat Emulsion Intravenous 1,200 ml @ 50 mls/hr TPN CONT IV ; Start 01/20/19 at 22:00; Stop 01/21/19 at 21:59 Potassium Phosphate 40 mmol/ Sodium Chloride 263.3333 ml @ 62.5 mls/hr 1X ONCE IV Last administered on 01/20/19at 16:03; Start 01/20/19 at 16:00; Stop 01/20/19 at 20:12 Allergies Allergies: Coded Allergies: No Known Drug Allergies (Unverified , 01/07/19) Vitals VITALS Vital Signs Date Time Temp Pulse Resp B/P (MAP) Pulse Ox O2 Delivery O2 Flow Rate FiO2 01/20/19 17:11 96 Ventilator 01/20/19 16:00 99.0 93 24 113/54 (73) 99.0 01/20/19 15:39 2.0 Labs Labs Laboratory Tests Test 01/18/19 21:45 01/18/19 22:43 01/18/19 23:29 01/19/19 04:30 Sodium Level 142 mmol/L (136-145) 141 mmol/L (136-145) Potassium Level 5.0 mmol/L (3.5-5.1) 5.3 mmol/L (3.5-5.1) Chloride Level 102 mmol/L (98-107) 102 mmol/L (98-107) Carbon Dioxide Level 19 mmol/L (21-32) 22 mmol/L (21-32) Anion Gap 21 (6-14) 17 (6-14) Blood Urea Nitrogen 28 mg/dL (8-26) 28 mg/dL (8-26) Creatinine 1.4 mg/dL (0.7-1.3) 1.4 mg/dL (0.7-1.3) Estimated GFR (Cockcroft-Gault) 56.7 56.7 Glucose Level 37 mg/dL (70-99) 166 mg/dL (70-99) Calcium Level 6.9 mg/dL (8.5-10.1) 7.3 mg/dL (8.5-10.1) Phosphorus Level 5.0 mg/dL (2.6-4.7) 3.9 mg/dL (2.6-4.7) Magnesium Level 4.8 mg/dL (1.8-2.4) 4.7 mg/dL (1.8-2.4) Glucose (Fingerstick) 126 mg/dL (70-99) 103 mg/dL (70-99) White Blood Count 18.9 x10^3/uL (4.0-11.0) Red Blood Count 2.36 x10^6/uL (4.30-5.70) Hemoglobin 7.7 g/dL (13.0-17.5) Hematocrit 23.6 % (39.0-53.0) Mean Corpuscular Volume 100 fL (79-100) Mean Corpuscular Hemoglobin 33 pg (25-35) Mean Corpuscular Hemoglobin Concent 32 g/dL (31-37) Red Cell Distribution Width 21.5 % (11.5-14.5) Platelet Count 37 x10^3/uL (140-400) Neutrophils (%) (Auto) 88 % (31-73) Lymphocytes (%) (Auto) 8 % (24-48) Monocytes (%) (Auto) 3 % (0-9) Eosinophils (%) (Auto) 1 % (0-3) Basophils (%) (Auto) 1 % (0-3) Neutrophils # (Auto) 16.2 x10^3/uL (1.8-7.7) Lymphocytes # (Auto) 1.4 x10^3/uL (1.0-4.8) Monocytes # (Auto) 0.6 x10^3/uL (0.0-1.1) Eosinophils # (Auto) 0.1 x10^3/uL (0.0-0.7) Basophils # (Auto) 0.1 x10^3/uL (0.0-0.2) Prothrombin Time 23.7 SEC (11.7-14.0) Prothromb Time International Ratio 2.1 (0.8-1.1) Albumin 3.6 g/dL (3.4-5.0) Triglycerides Level 167 mg/dL (0-150) Test 01/19/19 07:59 01/19/19 08:00 01/19/19 09:40 01/19/19 12:52 Glucose (Fingerstick) 182 mg/dL (70-99) Sodium Level 140 mmol/L (136-145) 142 mmol/L (136-145) Potassium Level 4.8 mmol/L (3.5-5.1) 4.2 mmol/L (3.5-5.1) Chloride Level 101 mmol/L (98-107) 102 mmol/L (98-107) Carbon Dioxide Level 24 mmol/L (21-32) 27 mmol/L (21-32) Anion Gap 15 (6-14) 13 (6-14) Blood Urea Nitrogen 29 mg/dL (8-26) 32 mg/dL (8-26) Creatinine 1.3 mg/dL (0.7-1.3) 1.3 mg/dL (0.7-1.3) Estimated GFR (Cockcroft-Gault) 61.8 61.8 BUN/Creatinine Ratio 22 (6-20) Glucose Level 202 mg/dL (70-99) 202 mg/dL (70-99) Lactic Acid Level 9.3 mmol/L (0.4-2.0) 8.2 mmol/L (0.4-2.0) Calcium Level 7.1 mg/dL (8.5-10.1) 7.2 mg/dL (8.5-10.1) Total Bilirubin 15.2 mg/dL (0.2-1.0) Aspartate Amino Transf (AST/SGOT) 349 U/L (15-37) Alanine Aminotransferase (ALT/SGPT) 84 U/L (16-63) Alkaline Phosphatase 178 U/L (46-116) Total Protein 6.5 g/dL (6.4-8.2) Albumin 3.7 g/dL (3.4-5.0) Albumin/Globulin Ratio 1.3 (1.0-1.7) O2 Saturation 95 % (92-99) Arterial Blood pH 7.31 (7.35-7.45) Arterial Blood pCO2 at Patient Temp 42 mmHg (35-46) Arterial Blood pO2 at Patient Temp 79 mmHg (85-108) Arterial Blood HCO3 21 mmol/L (21-28) Arterial Blood Base Excess -5 mmol/L (-3-3) FiO2 100 Platelet Count 28 x10^3/uL (140-400) Prothrombin Time 24.4 SEC (11.7-14.0) Prothromb Time International Ratio 2.2 (0.8-1.1) Activated Partial Thromboplast Time 36 SEC (24-38) Fibrinogen 112 mg/dL (200-440) D-Dimer (Yudi) > 20.00 ug/mlFEU Phosphorus Level 1.9 mg/dL (2.6-4.7) Magnesium Level 2.1 mg/dL (1.8-2.4) Test 01/19/19 17:19 01/19/19 20:45 01/20/19 05:15 01/20/19 07:53 Glucose (Fingerstick) 169 mg/dL (70-99) Sodium Level 142 mmol/L (136-145) 142 mmol/L (136-145) Potassium Level 4.2 mmol/L (3.5-5.1) 4.1 mmol/L (3.5-5.1) Chloride Level 103 mmol/L (98-107) 103 mmol/L (98-107) Carbon Dioxide Level 28 mmol/L (21-32) 29 mmol/L (21-32) Anion Gap 11 (6-14) 10 (6-14) Blood Urea Nitrogen 32 mg/dL (8-26) 39 mg/dL (8-26) Creatinine 1.2 mg/dL (0.7-1.3) 1.3 mg/dL (0.7-1.3) Estimated GFR (Cockcroft-Gault) 67.8 61.8 Glucose Level 164 mg/dL (70-99) 178 mg/dL (70-99) Calcium Level 7.2 mg/dL (8.5-10.1) 7.1 mg/dL (8.5-10.1) Phosphorus Level 1.7 mg/dL (2.6-4.7) 1.5 mg/dL (2.6-4.7) Magnesium Level 2.0 mg/dL (1.8-2.4) 1.9 mg/dL (1.8-2.4) White Blood Count 12.0 x10^3/uL (4.0-11.0) Red Blood Count 2.15 x10^6/uL (4.30-5.70) Hemoglobin 7.2 g/dL (13.0-17.5) Hematocrit 20.8 % (39.0-53.0) Mean Corpuscular Volume 97 fL (79-100) Mean Corpuscular Hemoglobin 33 pg (25-35) Mean Corpuscular Hemoglobin Concent 35 g/dL (31-37) Red Cell Distribution Width 20.5 % (11.5-14.5) Platelet Count 24 x10^3/uL (140-400) Neutrophils (%) (Auto) 82 % (31-73) Lymphocytes (%) (Auto) 11 % (24-48) Monocytes (%) (Auto) 6 % (0-9) Eosinophils (%) (Auto) 0 % (0-3) Basophils (%) (Auto) 1 % (0-3) Neutrophils # (Auto) 9.8 x10^3/uL (1.8-7.7) Lymphocytes # (Auto) 1.4 x10^3/uL (1.0-4.8) Monocytes # (Auto) 0.8 x10^3/uL (0.0-1.1) Eosinophils # (Auto) 0.0 x10^3/uL (0.0-0.7) Basophils # (Auto) 0.1 x10^3/uL (0.0-0.2) Prothrombin Time 22.0 SEC (11.7-14.0) Prothromb Time International Ratio 2.0 (0.8-1.1) BUN/Creatinine Ratio 30 (6-20) Lactic Acid Level 5.9 mmol/L (0.4-2.0) Total Bilirubin 16.2 mg/dL (0.2-1.0) Aspartate Amino Transf (AST/SGOT) 250 U/L (15-37) Alanine Aminotransferase (ALT/SGPT) 75 U/L (16-63) Alkaline Phosphatase 203 U/L (46-116) Total Protein 6.1 g/dL (6.4-8.2) Albumin 3.4 g/dL (3.4-5.0) Albumin/Globulin Ratio 1.3 (1.0-1.7) O2 Saturation 90 % (92-99) Arterial Blood pH 7.41 (7.35-7.45) Arterial Blood pCO2 at Patient Temp 40 mmHg (35-46) Arterial Blood pO2 at Patient Temp 58 mmHg (85-108) Arterial Blood HCO3 25 mmol/L (21-28) Arterial Blood Base Excess 0 mmol/L (-3-3) FiO2 100 Test 01/20/19 09:03 01/20/19 13:07 01/20/19 15:04 Fibrinogen 90 mg/dL (200-440) 111 mg/dL (200-440) Lactic Acid Level 5.5 mmol/L (0.4-2.0) Sodium Level 143 mmol/L (136-145) Potassium Level 4.0 mmol/L (3.5-5.1) Chloride Level 102 mmol/L (98-107) Carbon Dioxide Level 29 mmol/L (21-32) Anion Gap 12 (6-14) Blood Urea Nitrogen 41 mg/dL (8-26) Creatinine 1.3 mg/dL (0.7-1.3) Estimated GFR (Cockcroft-Gault) 61.8 Glucose Level 168 mg/dL (70-99) Calcium Level 7.2 mg/dL (8.5-10.1) Phosphorus Level 1.3 mg/dL (2.6-4.7) Magnesium Level 1.8 mg/dL (1.8-2.4) Laboratory Tests Test 01/19/19 20:45 01/20/19 05:15 01/20/19 07:53 01/20/19 09:03 Sodium Level 142 mmol/L (136-145) 142 mmol/L (136-145) Potassium Level 4.2 mmol/L (3.5-5.1) 4.1 mmol/L (3.5-5.1) Chloride Level 103 mmol/L (98-107) 103 mmol/L (98-107) Carbon Dioxide Level 28 mmol/L (21-32) 29 mmol/L (21-32) Anion Gap 11 (6-14) 10 (6-14) Blood Urea Nitrogen 32 mg/dL (8-26) 39 mg/dL (8-26) Creatinine 1.2 mg/dL (0.7-1.3) 1.3 mg/dL (0.7-1.3) Estimated GFR (Cockcroft-Gault) 67.8 61.8 Glucose Level 164 mg/dL (70-99) 178 mg/dL (70-99) Calcium Level 7.2 mg/dL (8.5-10.1) 7.1 mg/dL (8.5-10.1) Phosphorus Level 1.7 mg/dL (2.6-4.7) 1.5 mg/dL (2.6-4.7) Magnesium Level 2.0 mg/dL (1.8-2.4) 1.9 mg/dL (1.8-2.4) White Blood Count 12.0 x10^3/uL (4.0-11.0) Red Blood Count 2.15 x10^6/uL (4.30-5.70) Hemoglobin 7.2 g/dL (13.0-17.5) Hematocrit 20.8 % (39.0-53.0) Mean Corpuscular Volume 97 fL (79-100) Mean Corpuscular Hemoglobin 33 pg (25-35) Mean Corpuscular Hemoglobin Concent 35 g/dL (31-37) Red Cell Distribution Width 20.5 % (11.5-14.5) Platelet Count 24 x10^3/uL (140-400) Neutrophils (%) (Auto) 82 % (31-73) Lymphocytes (%) (Auto) 11 % (24-48) Monocytes (%) (Auto) 6 % (0-9) Eosinophils (%) (Auto) 0 % (0-3) Basophils (%) (Auto) 1 % (0-3) Neutrophils # (Auto) 9.8 x10^3/uL (1.8-7.7) Lymphocytes # (Auto) 1.4 x10^3/uL (1.0-4.8) Monocytes # (Auto) 0.8 x10^3/uL (0.0-1.1) Eosinophils # (Auto) 0.0 x10^3/uL (0.0-0.7) Basophils # (Auto) 0.1 x10^3/uL (0.0-0.2) Prothrombin Time 22.0 SEC (11.7-14.0) Prothromb Time International Ratio 2.0 (0.8-1.1) BUN/Creatinine Ratio 30 (6-20) Lactic Acid Level 5.9 mmol/L (0.4-2.0) 5.5 mmol/L (0.4-2.0) Total Bilirubin 16.2 mg/dL (0.2-1.0) Aspartate Amino Transf (AST/SGOT) 250 U/L (15-37) Alanine Aminotransferase (ALT/SGPT) 75 U/L (16-63) Alkaline Phosphatase 203 U/L (46-116) Total Protein 6.1 g/dL (6.4-8.2) Albumin 3.4 g/dL (3.4-5.0) Albumin/Globulin Ratio 1.3 (1.0-1.7) O2 Saturation 90 % (92-99) Arterial Blood pH 7.41 (7.35-7.45) Arterial Blood pCO2 at Patient Temp 40 mmHg (35-46) Arterial Blood pO2 at Patient Temp 58 mmHg (85-108) Arterial Blood HCO3 25 mmol/L (21-28) Arterial Blood Base Excess 0 mmol/L (-3-3) FiO2 100 Fibrinogen 90 mg/dL (200-440) Test 01/20/19 13:07 01/20/19 15:04 Sodium Level 143 mmol/L (136-145) Potassium Level 4.0 mmol/L (3.5-5.1) Chloride Level 102 mmol/L (98-107) Carbon Dioxide Level 29 mmol/L (21-32) Anion Gap 12 (6-14) Blood Urea Nitrogen 41 mg/dL (8-26) Creatinine 1.3 mg/dL (0.7-1.3) Estimated GFR (Cockcroft-Gault) 61.8 Glucose Level 168 mg/dL (70-99) Calcium Level 7.2 mg/dL (8.5-10.1) Phosphorus Level 1.3 mg/dL (2.6-4.7) Magnesium Level 1.8 mg/dL (1.8-2.4) Fibrinogen 111 mg/dL (200-440) ELIDA MCGRATH MD Jan 20, 2019 18:23
[2019-01-20] MEDS: DARBEPOETIN ALFA 60 MCG/0.3 ML DISP.SYRIN. SQ SCH (21:43)
[2019-01-20 21:53] LABS: CALCIUM 7.4 mg/dL (8.5-10.1); CREATININE 1.2 mg/dL (0.7-1.3); GFR 67.8; MAGNESIUM 1.9 mg/dL (1.8-2.4); PHOSPHORUS 2.7 mg/dL (2.6-4.7); POTASSIUM 4.3 mmol/L (3.5-5.1)
[2019-01-20] MEDS ORDERED: AMINO ACID IV SCH ×8 (22:00)
[2019-01-20] MEDS ORDERED: TOTAL PARENTERAL NUTRITION IV SCH ×8 (22:00)
[2019-01-20] MEDS ORDERED: DEXTROSE 70% IV SCH ×8 (22:00)
[2019-01-20] MEDS ORDERED: [UNRECOGNIZED DRUG - OTHER] IV SCH ×8 (22:00)
[2019-01-21] VITALS (28 sets, daily range): BP systolic 86–179; BP diastolic 43–84
[2019-01-21] MEDS: MIDAZOLAM 100mg/100ml NS BAG 100 ML IV PRN ×3 (00:11→21:59)
[2019-01-21] MEDS: DEXMEDETOMIDINE 400 MCG in IV NORMAL SALINE 100ML 96 ML IV PRN ×7 (00:12→21:59)
[2019-01-21] MEDS: CALCIUM CHLORIDE IV SCH ×14 (00:13→21:08)
[2019-01-21] MEDS: POTASSIUM CHLORIDE IV SCH ×14 (00:13→21:08)
[2019-01-21] MEDS: [UNRECOGNIZED DRUG - OTHER] IV SCH ×14 (00:13→21:08)
[2019-01-21] MEDS: NORMAL SALINE IV SCH ×2 (01:56→14:17)
[2019-01-21] MEDS: MEROPENEM IV SCH ×2 (01:56→14:17)
--- NOTE | 2019-01-21 04:06 | RAD ---
CLINICAL HISTORY: Bilateral lower extremity swelling COMPARISON: None available. TECHNIQUE: Ultrasound evaluation of both legs was performed from the groin to the upper calf with do scale, spectral and color doppler evaluation. FINDINGS: The bilateral common femoral vein, and femoral vein, including the saphenous-femoral junction are normal in appearance. Color and spectral Doppler evaluation demonstrates normal spontaneous flow, augmentation and phasicity. Of note, the posterior tibial and peroneal veins are limited in evaluation. Within these constraints, the bilateral popliteal vein and visualized calf veins also demonstrate normal compressibility and flow. Soft tissue swelling about the lower legs bilaterally. IMPRESSION: No evidence for DVT in the bilateral lower extremities. Electronically signed by: Jeremias Alan MD (01/21/2019 4:03 AM) [facility]
[2019-01-21 05:26] LABS: BASO # 0.1 x10^3/uL (0.0-0.2); BASO % 1 % (0-3); EOS % 0 % (0-3); LYMPH % 17 % (24-48); MEAN CORPUSCULAR HEMOGLOBIN 33 pg (25-35); MEAN CORPUSCULAR HGB CONC 34 g/dL (31-37); MEAN CORPUSCULAR VOLUME 96 fL (79-100); MONO # 1.1 x10^3/uL (0.0-1.1); MONO % 9 % (0-9); NEUT # 8.7 x10^3/uL (1.8-7.7); PLATELET COUNT 27 x10^3/uL (140-400); RED BLOOD COUNT 2.06 x10^6/uL (4.30-5.70); RED CELL DISTRIBUTION WIDTH 18.8 % (11.5-14.5); WHITE BLOOD COUNT 11.9 x10^3/uL (4.0-11.0)
[2019-01-21 05:33] LABS: HEMATOCRIT 19.8 % (39.0-53.0); HEMOGLOBIN 6.8 g/dL (13.0-17.5)
[2019-01-21 05:34] LABS: PROTHROMBIN TIME PATIENT 21.6 SEC (11.7-14.0)
[2019-01-21] MEDS: ALBUMIN HUMAN 25% 100 ML IV SCH ×4 (05:51→23:55)
[2019-01-21 05:52] LABS: ALBUMIN 3.6 g/dL (3.4-5.0); ALBUMIN/GLOBULIN RATIO 1.4 (1.0-1.7); CALCIUM 7.6 mg/dL (8.5-10.1); CREATININE 1.2 mg/dL (0.7-1.3); GFR 67.8; POTASSIUM 3.7 mmol/L (3.5-5.1); TOTAL BILIRUBIN 19.1 mg/dL (0.2-1.0); TOTAL PROTEIN 6.2 g/dL (6.4-8.2)
[2019-01-21 06:55] LABS: MAGNESIUM 1.8 mg/dL (1.8-2.4)
[2019-01-21 06:58] LABS: PHOSPHORUS 1.9 mg/dL (2.6-4.7)
[2019-01-21] MEDS: PANTOPRAZOLE IV PUSH 40 MG VIAL. IVP SCH (07:59)
[2019-01-21 08:00] LABS: BASE EXCESS ABG -1 mmol/L (-3-3); HCO3 ABG 24 mmol/L (21-28); PCO2 ABG 41 mmHg (35-46); PO2 ABG 109 mmHg (85-108); SAT O2 ABG 98 % (92-99)
[2019-01-21] MEDS: INSULIN LISPRO 300 UNITS/3 ML VIAL. SQ SCH ×3 (08:00→16:54)
[2019-01-21 08:02] LABS: FIO2 ABG 100
[2019-01-21] MEDS: LACTULOSE 20 GM/30 ML SOLUTION. PO SCH ×3 (08:17→21:00)
--- NOTE | 2019-01-21 08:24 | PDOC ---
Infectious Disease Note Subjective: Subjective pt intubated,sedated fio2 100% Peep 14 recieved one unit of blood on dialysis on low dose pressors ROS: ROS d/w rn unable to obtain Vital Signs: Vital Signs Vital Signs Date Time Temp Pulse Resp B/P (MAP) Pulse Ox O2 Delivery O2 Flow Rate FiO2 01/21/19 08:00 97.4 84 24 179/84 (115) 100 Ventilator 97.4 01/20/19 15:39 2.0 Physical Exam: PHYSICAL EXAM GENERAL: Orally intubated and sedated, CRRT HEENT: Icteric, Pupils equal, ETT and OGT LUNGS: Right-sided rhonchi HEART: S1 S2 regular ABDOMEN: Obese, soft, hypoactive BS : - Pollard EXTREMITIES:gen edema, LLE ecchymosis. SKIN: Warm to touch. No rash NEUROLOGIC: Sedated RIJ and Temp RIJ/HDC (01/13) clean PIV Medications: Inpatient Meds: Current Medications Medications (Trade) Dose Ordered Sig/Quyen Start Time Stop Time Status Last Admin Dose Admin Acetaminophen (Tylenol Supp) 650 mg PRN Q6HRS PRN 01/08/19 18:15 01/09/19 23:44 650 MG Acetaminophen (Tylenol) 650 mg PRN Q6HRS PRN 01/12/19 16:30 01/14/19 09:11 650 MG Albumin Human 100 ml @ As Directed STK-MED ONCE 01/19/19 17:00 01/19/19 17:00 DC Artificial Tears (Artificial Tears) 1 drop Q4H PRN 01/14/19 15:30 01/14/19 16:43 1 DROP Benzocaine (Hurricaine One) 2 spray STK-MED ONCE 01/07/19 12:00 01/08/19 14:20 DC Bisacodyl (Dulcolax Supp) 10 mg 1X ONCE 01/13/19 11:00 01/13/19 11:01 DC 01/13/19 10:14 10 MG Calcium Chloride 12.5 meq/ Magnesium Sulfate 2.5 meq/Potassium Chloride 10 meq/ Sodium Bicarbonate 40 meq/Bicarbonate Dialysis Soln w/ out KCl 5,054.5443 ml @ 500 mls/hr Q10H7M 01/18/19 18:00 01/19/19 07:48 DC 01/19/19 05:16 500 MLS/HR Calcium Chloride 12.5 meq/ Potassium Chloride 5 meq/ Bicarbonate Dialysis Soln w/ out KCl 5,011.4286 ml @ 500 mls/hr Q10H2M 01/20/19 11:30 01/20/19 19:25 500 MLS/HR Calcium Chloride 12.5 meq/ Potassium Chloride 5 meq/ Sodium Bicarbonate 40 meq/Bicarbonate Dialysis Soln w/ out KCl 5,051.4286 ml @ 500 mls/hr Q10H7M 01/19/19 15:00 01/20/19 11:30 DC 01/20/19 03:09 500 MLS/HR Clonidine HCl (Catapres) 0.1 mg PRN Q1HR PRN 01/08/19 07:15 Daptomycin 500 mg/ Sodium Chloride 50 ml @ 100 mls/hr Q48H 01/16/19 09:00 01/20/19 09:16 100 MLS/HR Darbepoetin Giorgi (ARANESP for DIALYSIS PTS) 60 mcg WEEKLYHS 01/13/19 21:00 01/20/19 21:43 60 MCG Dexmedetomidine HCl 400 mcg/ Sodium Chloride 100 ml @ 0 mls/hr CONT PRN 01/14/19 11:30 01/21/19 08:03 26.5 MLS/HR Dextrose (Dextrose 50%-Water Syringe) 12.5 gm PRN Q15MIN PRN 01/09/19 10:30 01/18/19 22:35 25 GM Diphenhydramine HCl (Benadryl) 25 mg PRN Q15MIN PRN 01/08/19 07:15 Docusate Sodium (Enemeez) 283 mg 1X ONCE 01/13/19 16:45 01/13/19 16:47 DC 01/13/19 17:14 283 MG Epinephrine HCl 4 mg/Sodium Chloride 254 ml @ 41.822 mls/ hr CONT PRN 01/18/19 16:15 01/19/19 18:00 DC Epinephrine HCl 8 mg/Sodium Chloride 258 ml @ 20.9 mls/hr CONT PRN 01/19/19 14:15 Fentanyl Citrate (Fentanyl 2ml Vial) 100 mcg 1X ONCE 01/08/19 09:45 01/08/19 09:46 DC 01/08/19 09:42 100 MCG Fentanyl Citrate (Fentanyl 600 Mcg/30 ml PATTERN ATTENDANT) 600 mcg STK-MED ONCE 01/08/19 15:25 01/09/19 10:27 DC Haloperidol Lactate (Haldol Inj) 5 mg PRN Q4HRS PRN 01/08/19 07:15 Heparin Sodium (Porcine) (Heparin Sodium) 10,000 unit STK-MED ONCE 01/13/19 10:59 01/13/19 11:00 DC Info (PHARMACY MONITORING -- do not chart) 1 each PRN DAILY PRN 01/15/19 10:00 01/15/19 10:57 DC Info (Tpn Per Pharmacy) 1 each PRN DAILY PRN 01/13/19 11:15 01/20/19 13:34 1 EACH Insulin Human Lispro (HumaLOG) 0-9 UNITS TIDWMEALS 01/09/19 12:00 01/21/19 08:00 4 UNITS Lactobacillus Rhamnosus (Culturelle) 1 cap BID 01/08/19 21:00 01/09/19 09:29 DC Lactulose (LACTULOSE 300ML for RECTAL) 200 gm Q6HRS 01/09/19 12:00 01/09/19 11:04 DC Lactulose (Lactulose) 20 gm TID 01/13/19 10:00 01/14/19 21:01 20 GM Levofloxacin/ Dextrose 100 ml @ 100 mls/hr Q24H 01/14/19 09:00 01/21/19 08:14 100 MLS/HR Lidocaine HCl (Buffered Lidocaine 1%) 3 ml 1X ONCE 01/13/19 11:00 01/13/19 11:01 DC 01/13/19 11:00 3 ML Lidocaine HCl (Xylocaine 2% Topical 5gm Tube) 5 amanda STK-MED ONCE 01/07/19 12:00 01/08/19 14:20 DC Linezolid/Dextrose 300 ml @ 300 mls/hr Q12HR 01/11/19 13:00 01/16/19 08:29 DC 01/16/19 08:26 300 MLS/HR Lorazepam (Ativan Inj) 4 mg PRN Q1HR PRN 01/08/19 07:15 01/15/19 08:40 4 MG Meropenem 1 gm/ Sodium Chloride 50 ml @ 100 mls/hr Q12H 01/20/19 02:00 01/21/19 01:56 100 MLS/HR Meropenem 500 mg/ Sodium Chloride 50 ml @ 100 mls/hr Q8HRS 01/18/19 14:00 01/19/19 09:24 DC 01/19/19 06:02 100 MLS/HR Methylprednisolone Sodium Succinate (SOLU-Medrol 125MG VIAL) 125 mg STK-MED ONCE 01/18/19 16:26 01/18/19 16:26 DC Metoclopramide HCl (Reglan Vial) 5 mg 1X ONCE 01/14/19 10:30 01/14/19 10:31 DC 01/14/19 10:51 5 MG Midazolam HCl 100 ml @ 5 mls/hr CONT PRN 01/08/19 11:15 01/21/19 00:11 8 MLS/HR Midazolam HCl (Versed) 5 mg 1X ONCE 01/08/19 09:45 01/08/19 09:46 DC 01/08/19 09:41 5 MG Morphine Sulfate (Morphine Sulfate) 2 mg PRN Q2HR PRN 01/08/19 09:15 Multi-Ingred Cream/Lotion/Oil/ Oint (Artificial Tears Eye Ointment) 1 amanda PRN Q1HR PRN 01/13/19 16:45 01/13/19 17:14 1 AMANDA Multivitamins 10 ml/Thiamine HCl 100 mg/Folic Acid 1 mg/Sodium Chloride 1,011.2 ml @ 100 mls/ hr DAILY 01/08/19 09:00 01/12/19 19:07 DC 01/12/19 10:29 100 MLS/HR Naloxone HCl (Narcan) 0.4 mg PRN Q2MIN PRN 01/08/19 09:00 Norepinephrine Bitartrate 250 ml @ 18.938 mls/ hr CONT PRN 01/09/19 01:45 01/19/19 11:30 DC 01/19/19 06:31 28.406 MLS/HR Norepinephrine Bitartrate 32 mg/ Sodium Chloride 250 ml @ 7 mls/hr CONT PRN 01/19/19 11:30 01/19/19 14:15 5.344 MLS/HR Octreotide Acetate 500 mcg/ Sodium Chloride 101 ml @ 0 mls/hr CONT PRN 01/08/19 09:00 01/08/19 16:55 DC 01/08/19 13:56 10.1 MLS/HR Ondansetron HCl (Zofran) 4 mg PRN Q6HRS PRN 01/08/19 09:15 Pantoprazole Sodium (PROTONIX VIAL for IV PUSH) 40 mg DAILYAC 01/10/19 07:30 01/21/19 07:59 40 MG Pantoprazole Sodium 80 mg/ Sodium Chloride 100 ml @ 10 mls/hr Q10H 01/08/19 06:00 01/09/19 11:00 DC 01/09/19 02:00 10 MLS/HR Perflutren Protein Type A Microsphe (Optison) 0.66 mg 1X ONCE 01/11/19 13:30 01/11/19 13:31 DC Phytonadione (Vitamin K Ampule) 10 mg 1X ONCE 01/08/19 09:15 01/08/19 09:16 DC 01/08/19 09:56 10 MG Phytonadione 10 mg/Dextrose 51 ml @ 102 mls/hr 1X ONCE 01/20/19 10:45 01/20/19 11:14 DC 01/20/19 11:07 102 MLS/HR Piperacillin Sod/ Tazobactam Sod (Zosyn Per Pharmacy) 1 each PRN DAILY PRN 01/07/19 21:00 01/18/19 12:16 DC Piperacillin Sod/ Tazobactam Sod 3.375 gm/Sodium Chloride 50 ml @ 100 mls/hr Q6HRS 01/07/19 22:00 01/18/19 12:16 DC 01/18/19 05:54 100 MLS/HR Potassium Bicarbonate (Potassium Effervescent Tablet) 40 meq BIDWMEALS 01/10/19 09:00 01/11/19 09:20 DC 01/10/19 17:49 40 MEQ Potassium Chloride 20 meq/ Bicarbonate Dialysis Soln w/ out KCl 5,010 ml @ 1,200 mls/hr Q4H11M 01/15/19 19:00 01/17/19 15:00 DC 01/17/19 00:17 1,200 MLS/HR Potassium Chloride 20 meq/ Sodium Bicarbonate 40 meq/Bicarbonate Dialysis Soln w/ out KCl 5,050 ml @ 1,200 mls/hr Q4H13M 01/17/19 15:00 01/18/19 09:51 DC 01/18/19 06:01 1,200 MLS/HR Potassium Chloride/Sodium Chloride 1,000 ml @ 75 mls/hr 1X ONCE 01/07/19 21:30 01/08/19 10:49 DC 01/07/19 21:16 75 MLS/HR Potassium Phosphate 20 mmol/ Sodium Chloride 256.6667 ml @ 128.... 1X ONCE 01/20/19 06:15 01/20/19 08:14 DC 01/20/19 06:19 128.333 MLS/HR Potassium Phosphate 40 mmol/ Sodium Chloride 263.3333 ml @ 62.5 mls/hr 1X ONCE 01/20/19 16:00 01/20/19 20:12 DC 01/20/19 16:03 62.5 MLS/HR Potassium Chloride (Klor-Con) 40 meq 1X ONCE 01/09/19 09:45 01/09/19 09:46 DC 01/09/19 11:34 40 MEQ Propofol 100 ml @ 1.524 mls/ hr CONT PRN 01/08/19 09:45 01/14/19 03:56 9.147 MLS/HR Sodium Acetate 40 meq/Potassium Acetate 30 meq/ Calcium Gluconate 10 meq/ Multivitamins 10 ml/Chromium/ Copper/Manganese/ Seleni/Zn 1 ml/ Total Parenteral Nutrition/Amino Acids/Dextrose/ Fat Emulsion Intravenous 1,512 ml @ 63 mls/hr TPN CONT 01/13/19 22:00 01/14/19 21:59 DC 01/13/19 21:54 63 MLS/HR Sodium Bicarbonate (Sodium Bicarb Adult 8.4% Syr) 100 meq 1X ONCE 01/15/19 08:30 01/15/19 08:31 DC 01/15/19 08:31 100 MEQ Sodium Chloride 30 meq/Sodium Acetate 40 meq/ Potassium Acetate 30 meq/Calcium Gluconate 10 meq/ Multivitamins 10 ml/Chromium/ Copper/Manganese/ Seleni/Zn 1 ml/ Total Parenteral Nutrition/Amino Acids/Dextrose/ Fat Emulsion Intravenous 1,512 ml @ 63 mls/hr TPN CONT 01/14/19 22:00 01/15/19 21:59 DC 01/15/19 00:05 63 MLS/HR Sodium Chloride 40 meq/Sodium Acetate 40 meq/ Calcium Gluconate 10 meq/ Multivitamins 10 ml/Chromium/ Copper/Manganese/ Seleni/Zn 1 ml/ Thiamine HCl 100 mg/Total Parenteral Nutrition/Amino Acids/Dextrose/ Fat Emulsion Intravenous 1,512 ml @ 63 mls/hr TPN CONT 01/15/19 22:00 01/16/19 21:59 DC 01/15/19 21:45 63 MLS/HR Sodium Chloride 40 meq/Sodium Acetate 40 meq/ Potassium Acetate 10 meq/Calcium Gluconate 10 meq/ Multivitamins 10 ml/Chromium/ Copper/Manganese/ Seleni/Zn 1 ml/ Thiamine HCl 100 mg/Total Parenteral Nutrition/Amino Acids/Dextrose/ Fat Emulsion Intravenous 1,512 ml @ 63 mls/hr TPN CONT 01/15/19 22:00 01/15/19 14:18 DC Sodium Chloride 40 meq/Sodium Acetate 40 meq/ Potassium Acetate 10 meq/Calcium Gluconate 10 meq/ Multivitamins 10 ml/Chromium/ Copper/Manganese/ Seleni/Zn 1 ml/ Total Parenteral Nutrition/Amino Acids/Dextrose/ Fat Emulsion Intravenous 1,512 ml @ 63 mls/hr TPN CONT 01/15/19 22:00 01/15/19 11:06 DC Sodium Chloride 60 meq/Sodium Acetate 40 meq/ Calcium Gluconate 10 meq/ Multivitamins 10 ml/Chromium/ Copper/Manganese/ Seleni/Zn 1 ml/ Thiamine HCl 100 mg/Total Parenteral Nutrition/Amino Acids/Dextrose/ Fat Emulsion Intravenous 1,512 ml @ 63 mls/hr TPN CONT 01/16/19 22:00 01/18/19 10:50 DC 01/16/19 22:00 63 MLS/HR Sodium Chloride 80 meq/Calcium Gluconate 10 meq/ Multivitamins 10 ml/Chromium/ Copper/Manganese/ Seleni/Zn 1 ml/ Thiamine HCl 100 mg/Total Parenteral Nutrition/Amino Acids/Dextrose/ Fat Emulsion Intravenous 1,200 ml @ 50 mls/hr TPN CONT 01/19/19 22:00 01/20/19 21:59 DC 01/19/19 21:30 50 MLS/HR Sodium Chloride 80 meq/Calcium Gluconate 20 meq/ Multivitamins 10 ml/Chromium/ Copper/Manganese/ Seleni/Zn 1 ml/ Thiamine HCl 100 mg/Total Parenteral Nutrition/Amino Acids/Dextrose/ Fat Emulsion Intravenous 1,200 ml @ 50 mls/hr TPN CONT 01/20/19 22:00 01/21/19 21:59 01/20/19 21:43 50 MLS/HR Sodium Phosphate 40 mmol/Dextrose 263.3333 ml @ 62.5 mls/hr 1X ONCE 01/21/19 09:00 01/21/19 13:12 Succinylcholine Chloride (Anectine) 200 mg 1X ONCE 01/08/19 09:45 01/08/19 09:46 DC 01/08/19 09:41 200 MG Tramadol HCl (Ultram) 50 mg PRN Q6HRS PRN 01/08/19 09:15 Vancomycin HCl (Vanco Per Pharmacy) 1 each PRN DAILY PRN 01/07/19 21:00 01/08/19 06:39 DC 01/08/19 00:43 1 EACH Vancomycin HCl (Vancomycin Trough Level) 1 each 1X ONCE 01/09/19 09:30 01/09/19 09:31 Cancel Vancomycin HCl 1.5 gm/Sodium Chloride 500 ml @ 250 mls/hr Q12H 01/08/19 10:00 01/08/19 06:39 DC Vancomycin HCl 2 gm/Sodium Chloride 500 ml @ 250 mls/hr 1X ONCE 01/07/19 22:00 01/07/19 23:59 DC 01/07/19 22:11 250 MLS/HR Vasopressin 40 unit/Dextrose 102 ml @ 6 mls/hr CONT PRN 01/15/19 10:00 01/20/19 19:31 6 MLS/HR Vecuronium [place] (Norcuron Bolus) 6 mg PRN Q4HRS PRN 01/08/19 12:00 01/18/19 11:14 6 MG Labs: Lab Laboratory Tests Test 01/20/19 09:03 01/20/19 13:07 01/20/19 15:04 01/20/19 17:16 Fibrinogen 90 mg/dL (200-440) 111 mg/dL (200-440) Lactic Acid Level 5.5 mmol/L (0.4-2.0) Sodium Level 143 mmol/L (136-145) Potassium Level 4.0 mmol/L (3.5-5.1) Chloride Level 102 mmol/L (98-107) Carbon Dioxide Level 29 mmol/L (21-32) Anion Gap 12 (6-14) Blood Urea Nitrogen 41 mg/dL (8-26) Creatinine 1.3 mg/dL (0.7-1.3) Estimated GFR (Cockcroft-Gault) 61.8 Glucose Level 168 mg/dL (70-99) Calcium Level 7.2 mg/dL (8.5-10.1) Phosphorus Level 1.3 mg/dL (2.6-4.7) Magnesium Level 1.8 mg/dL (1.8-2.4) Glucose (Fingerstick) 154 mg/dL (70-99) Test 01/20/19 21:00 01/21/19 05:00 01/21/19 07:50 Activated Partial Thromboplast Time 36 SEC (24-38) Sodium Level 142 mmol/L (136-145) 140 mmol/L (136-145) Potassium Level 4.3 mmol/L (3.5-5.1) 3.7 mmol/L (3.5-5.1) Chloride Level 102 mmol/L (98-107) 102 mmol/L (98-107) Carbon Dioxide Level 28 mmol/L (21-32) 27 mmol/L (21-32) Anion Gap 12 (6-14) 11 (6-14) Blood Urea Nitrogen 46 mg/dL (8-26) 44 mg/dL (8-26) Creatinine 1.2 mg/dL (0.7-1.3) 1.2 mg/dL (0.7-1.3) Estimated GFR (Cockcroft-Gault) 67.8 67.8 Glucose Level 165 mg/dL (70-99) 186 mg/dL (70-99) Lactic Acid Level 3.3 mmol/L (0.4-2.0) Calcium Level 7.4 mg/dL (8.5-10.1) 7.6 mg/dL (8.5-10.1) Phosphorus Level 2.7 mg/dL (2.6-4.7) 1.9 mg/dL (2.6-4.7) Magnesium Level 1.9 mg/dL (1.8-2.4) 1.8 mg/dL (1.8-2.4) Iron Level 84 ug/dL (65-175) Total Iron Binding Capacity 69 ug/dL (250-450) Iron Saturation % (15-34) Ferritin 605 ng/mL (26-388) White Blood Count 11.9 x10^3/uL (4.0-11.0) Red Blood Count 2.06 x10^6/uL (4.30-5.70) Hemoglobin 6.8 g/dL (13.0-17.5) Hematocrit 19.8 % (39.0-53.0) Mean Corpuscular Volume 96 fL (79-100) Mean Corpuscular Hemoglobin 33 pg (25-35) Mean Corpuscular Hemoglobin Concent 34 g/dL (31-37) Red Cell Distribution Width 18.8 % (11.5-14.5) Platelet Count 27 x10^3/uL (140-400) Neutrophils (%) (Auto) 73 % (31-73) Lymphocytes (%) (Auto) 17 % (24-48) Monocytes (%) (Auto) 9 % (0-9) Eosinophils (%) (Auto) 0 % (0-3) Basophils (%) (Auto) 1 % (0-3) Neutrophils # (Auto) 8.7 x10^3/uL (1.8-7.7) Lymphocytes # (Auto) 2.0 x10^3/uL (1.0-4.8) Monocytes # (Auto) 1.1 x10^3/uL (0.0-1.1) Eosinophils # (Auto) 0.0 x10^3/uL (0.0-0.7) Basophils # (Auto) 0.1 x10^3/uL (0.0-0.2) Prothrombin Time 21.6 SEC (11.7-14.0) Prothromb Time International Ratio 1.9 (0.8-1.1) BUN/Creatinine Ratio 37 (6-20) Total Bilirubin 19.1 mg/dL (0.2-1.0) Aspartate Amino Transf (AST/SGOT) 178 U/L (15-37) Alanine Aminotransferase (ALT/SGPT) 58 U/L (16-63) Alkaline Phosphatase 226 U/L (46-116) Total Protein 6.2 g/dL (6.4-8.2) Albumin 3.6 g/dL (3.4-5.0) Albumin/Globulin Ratio 1.4 (1.0-1.7) O2 Saturation 98 % (92-99) Arterial Blood pH 7.39 (7.35-7.45) Arterial Blood pCO2 at Patient Temp 41 mmHg (35-46) Arterial Blood pO2 at Patient Temp 109 mmHg (85-108) Arterial Blood HCO3 24 mmol/L (21-28) Arterial Blood Base Excess -1 mmol/L (-3-3) FiO2 100 Objective: Assessment: Hypotension on pressors Fever - curve improving ? ID vs PRBCs vs reactive vs Withdrawl - improved , uc neg, bc neg, sputum neg Leukocytosis - ? reactive, improved Thrombocytopenia ,coagulopathy Lactic acidosis Resp failure s/p intubation. + mycoplasma (01/14) DOMONIQUE on CRRT GI Bleed - s/p EGD 01/08 - Reflux esophagitis. ? recent M-W tear. Alcoholic gastritis. Anemia Liver cirrhosis with small ascites.Hyperbilirubinemia Alcoholic hepatitis - Hep C Ab positive, PCR negative. GI following ? pancreatitis. Lipase improved Rhabdo CK 965 Heavy ETOH abuse Left leg ecchymosis Pyuria UC negative Plan: Plan of Care Dapto, Merrem. and Levaquin, renally adjusted.Pharmacy assisting above antibiotics less likely to cause thrombocytopenia f/u cultures Supportive care Critically ill Prognosis poor D/W family and RN DAVID ALEXIS MD Jan 21, 2019 08:24
--- NOTE | 2019-01-21 08:52 | RAD ---
PORTABLE CHEST 1V Clinical indications: On the ventilator. Lung infiltrates. Follow-up study. COMPARISON: January 20, 2019. Findings: There've been no interval tube or line changes. Bilateral lung infiltrates are stable. Left-sided pleural effusion is stable. No pneumothorax is evident. Heart size and mediastinum are stable. IMPRESSION: Stable abnormal chest x-ray. Electronically signed by: Yovani Antoine MD (01/21/2019 8:49 AM) [facility]
[2019-01-21] MEDS ORDERED: SODIUM PHOSPHATE 40 MMOL in IV DEXTROSE 5% 250 ML IV ONE (09:00)
--- NOTE | 2019-01-21 09:26 | PDOC ---
PULMONARY PROGRESS NOTES Subjective PT ON PC V 100 % Vitals Vital Signs Date Time Temp Pulse Resp B/P (MAP) Pulse Ox O2 Delivery O2 Flow Rate FiO2 01/21/19 09:23 24 100 Ventilator 01/21/19 09:00 78 126/58 (80) 01/21/19 08:00 97.4 97.4 01/20/19 15:39 2.0 Lungs: Other (coarse bs bilaterally) Cardiovascular: S1, S2 Abdomen: Soft, Non-tender, Other (DISTENDED no mass) Extremities: Other (EDEMA) Skin: Warm Labs Laboratory Tests Test 01/19/19 09:40 01/19/19 12:52 01/19/19 17:19 01/19/19 20:45 O2 Saturation 95 % (92-99) Arterial Blood pH 7.31 (7.35-7.45) Arterial Blood pCO2 at Patient Temp 42 mmHg (35-46) Arterial Blood pO2 at Patient Temp 79 mmHg (85-108) Arterial Blood HCO3 21 mmol/L (21-28) Arterial Blood Base Excess -5 mmol/L (-3-3) FiO2 100 Platelet Count 28 x10^3/uL (140-400) Prothrombin Time 24.4 SEC (11.7-14.0) Prothromb Time International Ratio 2.2 (0.8-1.1) Activated Partial Thromboplast Time 36 SEC (24-38) Fibrinogen 112 mg/dL (200-440) D-Dimer (Yudi) > 20.00 ug/mlFEU Sodium Level 142 mmol/L (136-145) 142 mmol/L (136-145) Potassium Level 4.2 mmol/L (3.5-5.1) 4.2 mmol/L (3.5-5.1) Chloride Level 102 mmol/L (98-107) 103 mmol/L (98-107) Carbon Dioxide Level 27 mmol/L (21-32) 28 mmol/L (21-32) Anion Gap 13 (6-14) 11 (6-14) Blood Urea Nitrogen 32 mg/dL (8-26) 32 mg/dL (8-26) Creatinine 1.3 mg/dL (0.7-1.3) 1.2 mg/dL (0.7-1.3) Estimated GFR (Cockcroft-Gault) 61.8 67.8 Glucose Level 202 mg/dL (70-99) 164 mg/dL (70-99) Lactic Acid Level 8.2 mmol/L (0.4-2.0) Calcium Level 7.2 mg/dL (8.5-10.1) 7.2 mg/dL (8.5-10.1) Phosphorus Level 1.9 mg/dL (2.6-4.7) 1.7 mg/dL (2.6-4.7) Magnesium Level 2.1 mg/dL (1.8-2.4) 2.0 mg/dL (1.8-2.4) Glucose (Fingerstick) 169 mg/dL (70-99) Test 01/20/19 05:15 01/20/19 07:53 01/20/19 09:03 01/20/19 13:07 White Blood Count 12.0 x10^3/uL (4.0-11.0) Red Blood Count 2.15 x10^6/uL (4.30-5.70) Hemoglobin 7.2 g/dL (13.0-17.5) Hematocrit 20.8 % (39.0-53.0) Mean Corpuscular Volume 97 fL (79-100) Mean Corpuscular Hemoglobin 33 pg (25-35) Mean Corpuscular Hemoglobin Concent 35 g/dL (31-37) Red Cell Distribution Width 20.5 % (11.5-14.5) Platelet Count 24 x10^3/uL (140-400) Neutrophils (%) (Auto) 82 % (31-73) Lymphocytes (%) (Auto) 11 % (24-48) Monocytes (%) (Auto) 6 % (0-9) Eosinophils (%) (Auto) 0 % (0-3) Basophils (%) (Auto) 1 % (0-3) Neutrophils # (Auto) 9.8 x10^3/uL (1.8-7.7) Lymphocytes # (Auto) 1.4 x10^3/uL (1.0-4.8) Monocytes # (Auto) 0.8 x10^3/uL (0.0-1.1) Eosinophils # (Auto) 0.0 x10^3/uL (0.0-0.7) Basophils # (Auto) 0.1 x10^3/uL (0.0-0.2) Prothrombin Time 22.0 SEC (11.7-14.0) Prothromb Time International Ratio 2.0 (0.8-1.1) Sodium Level 142 mmol/L (136-145) 143 mmol/L (136-145) Potassium Level 4.1 mmol/L (3.5-5.1) 4.0 mmol/L (3.5-5.1) Chloride Level 103 mmol/L (98-107) 102 mmol/L (98-107) Carbon Dioxide Level 29 mmol/L (21-32) 29 mmol/L (21-32) Anion Gap 10 (6-14) 12 (6-14) Blood Urea Nitrogen 39 mg/dL (8-26) 41 mg/dL (8-26) Creatinine 1.3 mg/dL (0.7-1.3) 1.3 mg/dL (0.7-1.3) Estimated GFR (Cockcroft-Gault) 61.8 61.8 BUN/Creatinine Ratio 30 (6-20) Glucose Level 178 mg/dL (70-99) 168 mg/dL (70-99) Lactic Acid Level 5.9 mmol/L (0.4-2.0) 5.5 mmol/L (0.4-2.0) Calcium Level 7.1 mg/dL (8.5-10.1) 7.2 mg/dL (8.5-10.1) Phosphorus Level 1.5 mg/dL (2.6-4.7) 1.3 mg/dL (2.6-4.7) Magnesium Level 1.9 mg/dL (1.8-2.4) 1.8 mg/dL (1.8-2.4) Total Bilirubin 16.2 mg/dL (0.2-1.0) Aspartate Amino Transf (AST/SGOT) 250 U/L (15-37) Alanine Aminotransferase (ALT/SGPT) 75 U/L (16-63) Alkaline Phosphatase 203 U/L (46-116) Total Protein 6.1 g/dL (6.4-8.2) Albumin 3.4 g/dL (3.4-5.0) Albumin/Globulin Ratio 1.3 (1.0-1.7) O2 Saturation 90 % (92-99) Arterial Blood pH 7.41 (7.35-7.45) Arterial Blood pCO2 at Patient Temp 40 mmHg (35-46) Arterial Blood pO2 at Patient Temp 58 mmHg (85-108) Arterial Blood HCO3 25 mmol/L (21-28) Arterial Blood Base Excess 0 mmol/L (-3-3) FiO2 100 Fibrinogen 90 mg/dL (200-440) Test 01/20/19 15:04 01/20/19 17:16 01/20/19 21:00 01/21/19 05:00 Fibrinogen 111 mg/dL (200-440) Glucose (Fingerstick) 154 mg/dL (70-99) Activated Partial Thromboplast Time 36 SEC (24-38) Sodium Level 142 mmol/L (136-145) 140 mmol/L (136-145) Potassium Level 4.3 mmol/L (3.5-5.1) 3.7 mmol/L (3.5-5.1) Chloride Level 102 mmol/L (98-107) 102 mmol/L (98-107) Carbon Dioxide Level 28 mmol/L (21-32) 27 mmol/L (21-32) Anion Gap 12 (6-14) 11 (6-14) Blood Urea Nitrogen 46 mg/dL (8-26) 44 mg/dL (8-26) Creatinine 1.2 mg/dL (0.7-1.3) 1.2 mg/dL (0.7-1.3) Estimated GFR (Cockcroft-Gault) 67.8 67.8 Glucose Level 165 mg/dL (70-99) 186 mg/dL (70-99) Lactic Acid Level 3.3 mmol/L (0.4-2.0) Calcium Level 7.4 mg/dL (8.5-10.1) 7.6 mg/dL (8.5-10.1) Phosphorus Level 2.7 mg/dL (2.6-4.7) 1.9 mg/dL (2.6-4.7) Magnesium Level 1.9 mg/dL (1.8-2.4) 1.8 mg/dL (1.8-2.4) Iron Level 84 ug/dL (65-175) Total Iron Binding Capacity 69 ug/dL (250-450) Iron Saturation % (15-34) Ferritin 605 ng/mL (26-388) White Blood Count 11.9 x10^3/uL (4.0-11.0) Red Blood Count 2.06 x10^6/uL (4.30-5.70) Hemoglobin 6.8 g/dL (13.0-17.5) Hematocrit 19.8 % (39.0-53.0) Mean Corpuscular Volume 96 fL (79-100) Mean Corpuscular Hemoglobin 33 pg (25-35) Mean Corpuscular Hemoglobin Concent 34 g/dL (31-37) Red Cell Distribution Width 18.8 % (11.5-14.5) Platelet Count 27 x10^3/uL (140-400) Neutrophils (%) (Auto) 73 % (31-73) Lymphocytes (%) (Auto) 17 % (24-48) Monocytes (%) (Auto) 9 % (0-9) Eosinophils (%) (Auto) 0 % (0-3) Basophils (%) (Auto) 1 % (0-3) Neutrophils # (Auto) 8.7 x10^3/uL (1.8-7.7) Lymphocytes # (Auto) 2.0 x10^3/uL (1.0-4.8) Monocytes # (Auto) 1.1 x10^3/uL (0.0-1.1) Eosinophils # (Auto) 0.0 x10^3/uL (0.0-0.7) Basophils # (Auto) 0.1 x10^3/uL (0.0-0.2) Prothrombin Time 21.6 SEC (11.7-14.0) Prothromb Time International Ratio 1.9 (0.8-1.1) BUN/Creatinine Ratio 37 (6-20) Total Bilirubin 19.1 mg/dL (0.2-1.0) Aspartate Amino Transf (AST/SGOT) 178 U/L (15-37) Alanine Aminotransferase (ALT/SGPT) 58 U/L (16-63) Alkaline Phosphatase 226 U/L (46-116) Total Protein 6.2 g/dL (6.4-8.2) Albumin 3.6 g/dL (3.4-5.0) Albumin/Globulin Ratio 1.4 (1.0-1.7) Test 01/21/19 07:50 O2 Saturation 98 % (92-99) Arterial Blood pH 7.39 (7.35-7.45) Arterial Blood pCO2 at Patient Temp 41 mmHg (35-46) Arterial Blood pO2 at Patient Temp 109 mmHg (85-108) Arterial Blood HCO3 24 mmol/L (21-28) Arterial Blood Base Excess -1 mmol/L (-3-3) FiO2 100 Laboratory Tests Test 01/20/19 13:07 01/20/19 15:04 01/20/19 17:16 01/20/19 21:00 Sodium Level 143 mmol/L (136-145) 142 mmol/L (136-145) Potassium Level 4.0 mmol/L (3.5-5.1) 4.3 mmol/L (3.5-5.1) Chloride Level 102 mmol/L (98-107) 102 mmol/L (98-107) Carbon Dioxide Level 29 mmol/L (21-32) 28 mmol/L (21-32) Anion Gap 12 (6-14) 12 (6-14) Blood Urea Nitrogen 41 mg/dL (8-26) 46 mg/dL (8-26) Creatinine 1.3 mg/dL (0.7-1.3) 1.2 mg/dL (0.7-1.3) Estimated GFR (Cockcroft-Gault) 61.8 67.8 Glucose Level 168 mg/dL (70-99) 165 mg/dL (70-99) Calcium Level 7.2 mg/dL (8.5-10.1) 7.4 mg/dL (8.5-10.1) Phosphorus Level 1.3 mg/dL (2.6-4.7) 2.7 mg/dL (2.6-4.7) Magnesium Level 1.8 mg/dL (1.8-2.4) 1.9 mg/dL (1.8-2.4) Fibrinogen 111 mg/dL (200-440) Glucose (Fingerstick) 154 mg/dL (70-99) Activated Partial Thromboplast Time 36 SEC (24-38) Lactic Acid Level 3.3 mmol/L (0.4-2.0) Iron Level 84 ug/dL (65-175) Total Iron Binding Capacity 69 ug/dL (250-450) Iron Saturation % (15-34) Ferritin 605 ng/mL (26-388) Test 01/21/19 05:00 01/21/19 07:50 White Blood Count 11.9 x10^3/uL (4.0-11.0) Red Blood Count 2.06 x10^6/uL (4.30-5.70) Hemoglobin 6.8 g/dL (13.0-17.5) Hematocrit 19.8 % (39.0-53.0) Mean Corpuscular Volume 96 fL (79-100) Mean Corpuscular Hemoglobin 33 pg (25-35) Mean Corpuscular Hemoglobin Concent 34 g/dL (31-37) Red Cell Distribution Width 18.8 % (11.5-14.5) Platelet Count 27 x10^3/uL (140-400) Neutrophils (%) (Auto) 73 % (31-73) Lymphocytes (%) (Auto) 17 % (24-48) Monocytes (%) (Auto) 9 % (0-9) Eosinophils (%) (Auto) 0 % (0-3) Basophils (%) (Auto) 1 % (0-3) Neutrophils # (Auto) 8.7 x10^3/uL (1.8-7.7) Lymphocytes # (Auto) 2.0 x10^3/uL (1.0-4.8) Monocytes # (Auto) 1.1 x10^3/uL (0.0-1.1) Eosinophils # (Auto) 0.0 x10^3/uL (0.0-0.7) Basophils # (Auto) 0.1 x10^3/uL (0.0-0.2) Prothrombin Time 21.6 SEC (11.7-14.0) Prothromb Time International Ratio 1.9 (0.8-1.1) Sodium Level 140 mmol/L (136-145) Potassium Level 3.7 mmol/L (3.5-5.1) Chloride Level 102 mmol/L (98-107) Carbon Dioxide Level 27 mmol/L (21-32) Anion Gap 11 (6-14) Blood Urea Nitrogen 44 mg/dL (8-26) Creatinine 1.2 mg/dL (0.7-1.3) Estimated GFR (Cockcroft-Gault) 67.8 BUN/Creatinine Ratio 37 (6-20) Glucose Level 186 mg/dL (70-99) Calcium Level 7.6 mg/dL (8.5-10.1) Phosphorus Level 1.9 mg/dL (2.6-4.7) Magnesium Level 1.8 mg/dL (1.8-2.4) Total Bilirubin 19.1 mg/dL (0.2-1.0) Aspartate Amino Transf (AST/SGOT) 178 U/L (15-37) Alanine Aminotransferase (ALT/SGPT) 58 U/L (16-63) Alkaline Phosphatase 226 U/L (46-116) Total Protein 6.2 g/dL (6.4-8.2) Albumin 3.6 g/dL (3.4-5.0) Albumin/Globulin Ratio 1.4 (1.0-1.7) O2 Saturation 98 % (92-99) Arterial Blood pH 7.39 (7.35-7.45) Arterial Blood pCO2 at Patient Temp 41 mmHg (35-46) Arterial Blood pO2 at Patient Temp 109 mmHg (85-108) Arterial Blood HCO3 24 mmol/L (21-28) Arterial Blood Base Excess -1 mmol/L (-3-3) FiO2 100 Comments Impression . IMPRESSION: 1. Acute respiratory failure, multifactorial, secondary to multiorgan failure. ARDS with.likely superimposed fluid overload/CHF/ underlying aspiration pneumonitis etiology of ARDS, no evidence of hepato-pulmonary shunt on Bubble echo 2. End-stage liver disease with persistent abnormal LFT, bili up to 15 3. Multiorgan failure. 4. Renal failure. ? hepato renal syndrome, remains oliguric, on CRRT 5. Acute gastrointestinal bleed. 6. sepsis. 7. Leukocytosis 8. Hematemesis 9. Rhabdomyolysis. 10. Alcohol abuse. 11. Ascites. 12. Electrolyte abnormalities. Imaging: EGD 01/08 E--NO VARICES. Erosions distally c/w reflux/repeated emesis. One quite long narrow erosion which could have been a M-W. No active bleeding or clot. G--Not much retained blood after OG suction and Reglan. NO gastric varices. Linear erosions along the rugae in fundus and body c/w alcoholic or stress gastritis. Scattered "bruises" from OG tube. No ulcer, etc. D--Normal to second portion. IMP: Reflux esophagitis. ? recent M-W tear. Alcoholic gastritis. No active bleeding or clot seen. Plan . WEAN 02 DOWN APPRECIATE HEME INPUT CONTINUE SUPPORT PROGNOSIS IS POOR DOUBT PT WILL SURVIVE FAMILY INFORMED THEY WISH TO PROCEED WITH FULL CARE CRRT FOLLOW GI INPUT NUTRITION SUPPORT CARROLL BARRETT MD Jan 21, 2019 09:26
--- NOTE | 2019-01-21 09:31 | PDOC ---
SUBJECTIVE ROS Remains orally intubated, Tolerating CRRT OBJECTIVE Vital Signs Vital Signs Date Time Temp Pulse Resp B/P (MAP) Pulse Ox O2 Delivery O2 Flow Rate FiO2 01/21/19 09:23 24 100 Ventilator 01/21/19 09:00 78 126/58 (80) 01/21/19 08:00 97.4 97.4 01/20/19 15:39 2.0 I & 0 Intake and Output 01/21/19 07:00 Intake Total 3302.5 ml Output Total 0 ml Balance 3302.5 ml IV Total 3127.5 ml Blood Product 140 ml Blood Product IV Normal Saline Flush 35 ml Output Urine Total 0 ml PHYSICAL EXAM Physical Exam GENERAL: Orally intubated and sedated, CRRT HEENT: Icteric, Pupils equal, ETT and OGT LUNGS: Right-sided rhonchi HEART: S1 S2 regular ABDOMEN: Obese, soft, hypoactive BS : - Pollard + EXTREMITIES:gen edema, LLE ecchymosis. SKIN: Warm to touch. No rash NEUROLOGIC: Sedated Temp RIJ/HDC (01/13) DIAGNOSIS/ASSESSMENT Assessment & Plan DOMONIQUE/ ATN: DOMONIQUE had improved initially, developed anuric DOMONIQUE seen on CRRT , tolerating UF , continue as ordered, Dw RN Switch to HD when hemodynamically stable Supportive care, Avoid Nephrotoxins, Monitor Hypotension - on low dose Levophed Thrombocytopenia -Hem/Onc consulted Resp failure s/p intubation. + mycoplasma (01/14) GI Bleed - s/p EGD 01/08 - Reflux esophagitis. ? recent M-W tear. Alcoholic gastritis. Anemia - per Primary and Hem/Onc Cirrhosis /Alcoholic hepatitis - Hep C Ab positive, GI following Heavy ETOH abuse D/w n and mother COMMENT/RELEVANT DATA Meds Current Medications Medications (Trade) Dose Ordered Sig/Quyen Start Time Stop Time Status Last Admin Dose Admin Acetaminophen (Tylenol Supp) 650 mg PRN Q6HRS PRN 01/08/19 18:15 01/09/19 23:44 650 MG Acetaminophen (Tylenol) 650 mg PRN Q6HRS PRN 01/12/19 16:30 01/14/19 09:11 650 MG Albumin Human 100 ml @ As Directed STK-MED ONCE 01/19/19 17:00 01/19/19 17:00 DC Artificial Tears (Artificial Tears) 1 drop Q4H PRN 01/14/19 15:30 01/14/19 16:43 1 DROP Benzocaine (Hurricaine One) 2 spray STK-MED ONCE 01/07/19 12:00 01/08/19 14:20 DC Bisacodyl (Dulcolax Supp) 10 mg 1X ONCE 01/13/19 11:00 01/13/19 11:01 DC 01/13/19 10:14 10 MG Calcium Chloride 12.5 meq/ Magnesium Sulfate 2.5 meq/Potassium Chloride 10 meq/ Sodium Bicarbonate 40 meq/Bicarbonate Dialysis Soln w/ out KCl 5,054.5443 ml @ 500 mls/hr Q10H7M 01/18/19 18:00 01/19/19 07:48 DC 01/19/19 05:16 500 MLS/HR Calcium Chloride 12.5 meq/ Potassium Chloride 5 meq/ Bicarbonate Dialysis Soln w/ out KCl 5,011.4286 ml @ 500 mls/hr Q10H2M 01/20/19 11:30 01/20/19 19:25 500 MLS/HR Calcium Chloride 12.5 meq/ Potassium Chloride 5 meq/ Sodium Bicarbonate 40 meq/Bicarbonate Dialysis Soln w/ out KCl 5,051.4286 ml @ 500 mls/hr Q10H7M 01/19/19 15:00 01/20/19 11:30 DC 01/20/19 03:09 500 MLS/HR Clonidine HCl (Catapres) 0.1 mg PRN Q1HR PRN 01/08/19 07:15 Daptomycin 500 mg/ Sodium Chloride 50 ml @ 100 mls/hr Q48H 01/16/19 09:00 01/20/19 09:16 100 MLS/HR Darbepoetin Giorgi (ARANESP for DIALYSIS PTS) 60 mcg WEEKLYHS 01/13/19 21:00 01/20/19 21:43 60 MCG Dexmedetomidine HCl 400 mcg/ Sodium Chloride 100 ml @ 0 mls/hr CONT PRN 01/14/19 11:30 01/21/19 08:03 26.5 MLS/HR Dextrose (Dextrose 50%-Water Syringe) 12.5 gm PRN Q15MIN PRN 01/09/19 10:30 01/18/19 22:35 25 GM Diphenhydramine HCl (Benadryl) 25 mg PRN Q15MIN PRN 01/08/19 07:15 Docusate Sodium (Enemeez) 283 mg 1X ONCE 01/13/19 16:45 01/13/19 16:47 DC 01/13/19 17:14 283 MG Epinephrine HCl 4 mg/Sodium Chloride 254 ml @ 41.822 mls/ hr CONT PRN 01/18/19 16:15 01/19/19 18:00 DC Epinephrine HCl 8 mg/Sodium Chloride 258 ml @ 20.9 mls/hr CONT PRN 01/19/19 14:15 Fentanyl Citrate (Fentanyl 2ml Vial) 100 mcg 1X ONCE 01/08/19 09:45 01/08/19 09:46 DC 01/08/19 09:42 100 MCG Fentanyl Citrate (Fentanyl 600 Mcg/30 ml SINTER FEEDER) 600 mcg STK-MED ONCE 01/08/19 15:25 01/09/19 10:27 DC Haloperidol Lactate (Haldol Inj) 5 mg PRN Q4HRS PRN 01/08/19 07:15 Heparin Sodium (Porcine) (Heparin Sodium) 10,000 unit STK-MED ONCE 01/13/19 10:59 01/13/19 11:00 DC Info (PHARMACY MONITORING -- do not chart) 1 each PRN DAILY PRN 01/15/19 10:00 01/15/19 10:57 DC Info (Tpn Per Pharmacy) 1 each PRN DAILY PRN 01/13/19 11:15 01/20/19 13:34 1 EACH Insulin Human Lispro (HumaLOG) 0-9 UNITS TIDWMEALS 01/09/19 12:00 01/21/19 08:00 4 UNITS Lactobacillus Rhamnosus (Culturelle) 1 cap BID 01/08/19 21:00 01/09/19 09:29 DC Lactulose (LACTULOSE 300ML for RECTAL) 200 gm Q6HRS 01/09/19 12:00 01/09/19 11:04 DC Lactulose (Lactulose) 20 gm TID 01/13/19 10:00 01/14/19 21:01 20 GM Levofloxacin/ Dextrose 100 ml @ 100 mls/hr Q24H 01/14/19 09:00 01/21/19 08:14 100 MLS/HR Lidocaine HCl (Buffered Lidocaine 1%) 3 ml 1X ONCE 01/13/19 11:00 01/13/19 11:01 DC 01/13/19 11:00 3 ML Lidocaine HCl (Xylocaine 2% Topical 5gm Tube) 5 amanda STK-MED ONCE 01/07/19 12:00 01/08/19 14:20 DC Linezolid/Dextrose 300 ml @ 300 mls/hr Q12HR 01/11/19 13:00 01/16/19 08:29 DC 01/16/19 08:26 300 MLS/HR Lorazepam (Ativan Inj) 4 mg PRN Q1HR PRN 01/08/19 07:15 01/15/19 08:40 4 MG Meropenem 1 gm/ Sodium Chloride 50 ml @ 100 mls/hr Q12H 01/20/19 02:00 01/21/19 01:56 100 MLS/HR Meropenem 500 mg/ Sodium Chloride 50 ml @ 100 mls/hr Q8HRS 01/18/19 14:00 01/19/19 09:24 DC 01/19/19 06:02 100 MLS/HR Methylprednisolone Sodium Succinate (SOLU-Medrol 125MG VIAL) 125 mg STK-MED ONCE 01/18/19 16:26 01/18/19 16:26 DC Metoclopramide HCl (Reglan Vial) 5 mg 1X ONCE 01/14/19 10:30 01/14/19 10:31 DC 01/14/19 10:51 5 MG Midazolam HCl 100 ml @ 5 mls/hr CONT PRN 01/08/19 11:15 01/21/19 00:11 8 MLS/HR Midazolam HCl (Versed) 5 mg 1X ONCE 01/08/19 09:45 01/08/19 09:46 DC 01/08/19 09:41 5 MG Morphine Sulfate (Morphine Sulfate) 2 mg PRN Q2HR PRN 01/08/19 09:15 Multi-Ingred Cream/Lotion/Oil/ Oint (Artificial Tears Eye Ointment) 1 amanda PRN Q1HR PRN 01/13/19 16:45 01/13/19 17:14 1 AMANDA Multivitamins 10 ml/Thiamine HCl 100 mg/Folic Acid 1 mg/Sodium Chloride 1,011.2 ml @ 100 mls/ hr DAILY 01/08/19 09:00 01/12/19 19:07 DC 01/12/19 10:29 100 MLS/HR Naloxone HCl (Narcan) 0.4 mg PRN Q2MIN PRN 01/08/19 09:00 Norepinephrine Bitartrate 250 ml @ 18.938 mls/ hr CONT PRN 01/09/19 01:45 01/19/19 11:30 DC 01/19/19 06:31 28.406 MLS/HR Norepinephrine Bitartrate 32 mg/ Sodium Chloride 250 ml @ 7 mls/hr CONT PRN 01/19/19 11:30 01/19/19 14:15 5.344 MLS/HR Octreotide Acetate 500 mcg/ Sodium Chloride 101 ml @ 0 mls/hr CONT PRN 01/08/19 09:00 01/08/19 16:55 DC 01/08/19 13:56 10.1 MLS/HR Ondansetron HCl (Zofran) 4 mg PRN Q6HRS PRN 01/08/19 09:15 Pantoprazole Sodium (PROTONIX VIAL for IV PUSH) 40 mg DAILYAC 01/10/19 07:30 01/21/19 07:59 40 MG Pantoprazole Sodium 80 mg/ Sodium Chloride 100 ml @ 10 mls/hr Q10H 01/08/19 06:00 01/09/19 11:00 DC 01/09/19 02:00 10 MLS/HR Perflutren Protein Type A Microsphe (Optison) 0.66 mg 1X ONCE 01/11/19 13:30 01/11/19 13:31 DC Phytonadione (Vitamin K Ampule) 10 mg 1X ONCE 01/08/19 09:15 01/08/19 09:16 DC 01/08/19 09:56 10 MG Phytonadione 10 mg/Dextrose 51 ml @ 102 mls/hr 1X ONCE 01/20/19 10:45 01/20/19 11:14 DC 01/20/19 11:07 102 MLS/HR Piperacillin Sod/ Tazobactam Sod (Zosyn Per Pharmacy) 1 each PRN DAILY PRN 01/07/19 21:00 01/18/19 12:16 DC Piperacillin Sod/ Tazobactam Sod 3.375 gm/Sodium Chloride 50 ml @ 100 mls/hr Q6HRS 01/07/19 22:00 01/18/19 12:16 DC 01/18/19 05:54 100 MLS/HR Potassium Bicarbonate (Potassium Effervescent Tablet) 40 meq BIDWMEALS 01/10/19 09:00 01/11/19 09:20 DC 01/10/19 17:49 40 MEQ Potassium Chloride 20 meq/ Bicarbonate Dialysis Soln w/ out KCl 5,010 ml @ 1,200 mls/hr Q4H11M 01/15/19 19:00 01/17/19 15:00 DC 01/17/19 00:17 1,200 MLS/HR Potassium Chloride 20 meq/ Sodium Bicarbonate 40 meq/Bicarbonate Dialysis Soln w/ out KCl 5,050 ml @ 1,200 mls/hr Q4H13M 01/17/19 15:00 01/18/19 09:51 DC 01/18/19 06:01 1,200 MLS/HR Potassium Chloride/Sodium Chloride 1,000 ml @ 75 mls/hr 1X ONCE 01/07/19 21:30 01/08/19 10:49 DC 01/07/19 21:16 75 MLS/HR Potassium Phosphate 20 mmol/ Sodium Chloride 256.6667 ml @ 128.... 1X ONCE 01/20/19 06:15 01/20/19 08:14 DC 01/20/19 06:19 128.333 MLS/HR Potassium Phosphate 40 mmol/ Sodium Chloride 263.3333 ml @ 62.5 mls/hr 1X ONCE 01/20/19 16:00 01/20/19 20:12 DC 01/20/19 16:03 62.5 MLS/HR Potassium Chloride (Klor-Con) 40 meq 1X ONCE 01/09/19 09:45 01/09/19 09:46 DC 01/09/19 11:34 40 MEQ Propofol 100 ml @ 1.524 mls/ hr CONT PRN 01/08/19 09:45 01/14/19 03:56 9.147 MLS/HR Sodium Acetate 40 meq/Potassium Acetate 30 meq/ Calcium Gluconate 10 meq/ Multivitamins 10 ml/Chromium/ Copper/Manganese/ Seleni/Zn 1 ml/ Total Parenteral Nutrition/Amino Acids/Dextrose/ Fat Emulsion Intravenous 1,512 ml @ 63 mls/hr TPN CONT 01/13/19 22:00 01/14/19 21:59 DC 01/13/19 21:54 63 MLS/HR Sodium Bicarbonate (Sodium Bicarb Adult 8.4% Syr) 100 meq 1X ONCE 01/15/19 08:30 01/15/19 08:31 DC 01/15/19 08:31 100 MEQ Sodium Chloride 30 meq/Sodium Acetate 40 meq/ Potassium Acetate 30 meq/Calcium Gluconate 10 meq/ Multivitamins 10 ml/Chromium/ Copper/Manganese/ Seleni/Zn 1 ml/ Total Parenteral Nutrition/Amino Acids/Dextrose/ Fat Emulsion Intravenous 1,512 ml @ 63 mls/hr TPN CONT 01/14/19 22:00 01/15/19 21:59 DC 01/15/19 00:05 63 MLS/HR Sodium Chloride 40 meq/Sodium Acetate 40 meq/ Calcium Gluconate 10 meq/ Multivitamins 10 ml/Chromium/ Copper/Manganese/ Seleni/Zn 1 ml/ Thiamine HCl 100 mg/Total Parenteral Nutrition/Amino Acids/Dextrose/ Fat Emulsion Intravenous 1,512 ml @ 63 mls/hr TPN CONT 01/15/19 22:00 01/16/19 21:59 DC 01/15/19 21:45 63 MLS/HR Sodium Chloride 40 meq/Sodium Acetate 40 meq/ Potassium Acetate 10 meq/Calcium Gluconate 10 meq/ Multivitamins 10 ml/Chromium/ Copper/Manganese/ Seleni/Zn 1 ml/ Thiamine HCl 100 mg/Total Parenteral Nutrition/Amino Acids/Dextrose/ Fat Emulsion Intravenous 1,512 ml @ 63 mls/hr TPN CONT 01/15/19 22:00 01/15/19 14:18 DC Sodium Chloride 40 meq/Sodium Acetate 40 meq/ Potassium Acetate 10 meq/Calcium Gluconate 10 meq/ Multivitamins 10 ml/Chromium/ Copper/Manganese/ Seleni/Zn 1 ml/ Total Parenteral Nutrition/Amino Acids/Dextrose/ Fat Emulsion Intravenous 1,512 ml @ 63 mls/hr TPN CONT 01/15/19 22:00 01/15/19 11:06 DC Sodium Chloride 60 meq/Sodium Acetate 40 meq/ Calcium Gluconate 10 meq/ Multivitamins 10 ml/Chromium/ Copper/Manganese/ Seleni/Zn 1 ml/ Thiamine HCl 100 mg/Total Parenteral Nutrition/Amino Acids/Dextrose/ Fat Emulsion Intravenous 1,512 ml @ 63 mls/hr TPN CONT 01/16/19 22:00 01/18/19 10:50 DC 01/16/19 22:00 63 MLS/HR Sodium Chloride 80 meq/Calcium Gluconate 10 meq/ Multivitamins 10 ml/Chromium/ Copper/Manganese/ Seleni/Zn 1 ml/ Thiamine HCl 100 mg/Total Parenteral Nutrition/Amino Acids/Dextrose/ Fat Emulsion Intravenous 1,200 ml @ 50 mls/hr TPN CONT 01/19/19 22:00 01/20/19 21:59 DC 01/19/19 21:30 50 MLS/HR Sodium Chloride 80 meq/Calcium Gluconate 20 meq/ Multivitamins 10 ml/Chromium/ Copper/Manganese/ Seleni/Zn 1 ml/ Thiamine HCl 100 mg/Total Parenteral Nutrition/Amino Acids/Dextrose/ Fat Emulsion Intravenous 1,200 ml @ 50 mls/hr TPN CONT 01/20/19 22:00 01/21/19 21:59 01/20/19 21:43 50 MLS/HR Sodium Phosphate 40 mmol/Dextrose 263.3333 ml @ 62.5 mls/hr 1X ONCE 01/21/19 09:00 01/21/19 13:12 Succinylcholine Chloride (Anectine) 200 mg 1X ONCE 01/08/19 09:45 01/08/19 09:46 DC 01/08/19 09:41 200 MG Tramadol HCl (Ultram) 50 mg PRN Q6HRS PRN 01/08/19 09:15 Vancomycin HCl (Vanco Per Pharmacy) 1 each PRN DAILY PRN 01/07/19 21:00 01/08/19 06:39 DC 01/08/19 00:43 1 EACH Vancomycin HCl (Vancomycin Trough Level) 1 each 1X ONCE 01/09/19 09:30 01/09/19 09:31 Cancel Vancomycin HCl 1.5 gm/Sodium Chloride 500 ml @ 250 mls/hr Q12H 01/08/19 10:00 01/08/19 06:39 DC Vancomycin HCl 2 gm/Sodium Chloride 500 ml @ 250 mls/hr 1X ONCE 01/07/19 22:00 01/07/19 23:59 DC 01/07/19 22:11 250 MLS/HR Vasopressin 40 unit/Dextrose 102 ml @ 6 mls/hr CONT PRN 01/15/19 10:00 01/20/19 19:31 6 MLS/HR Vecuronium [place] (Norcuron Bolus) 6 mg PRN Q4HRS PRN 01/08/19 12:00 01/18/19 11:14 6 MG Lab Laboratory Tests Test 01/20/19 13:07 01/20/19 15:04 01/20/19 17:16 01/20/19 21:00 Sodium Level 143 mmol/L (136-145) 142 mmol/L (136-145) Potassium Level 4.0 mmol/L (3.5-5.1) 4.3 mmol/L (3.5-5.1) Chloride Level 102 mmol/L (98-107) 102 mmol/L (98-107) Carbon Dioxide Level 29 mmol/L (21-32) 28 mmol/L (21-32) Anion Gap 12 (6-14) 12 (6-14) Blood Urea Nitrogen 41 mg/dL (8-26) 46 mg/dL (8-26) Creatinine 1.3 mg/dL (0.7-1.3) 1.2 mg/dL (0.7-1.3) Estimated GFR (Cockcroft-Gault) 61.8 67.8 Glucose Level 168 mg/dL (70-99) 165 mg/dL (70-99) Calcium Level 7.2 mg/dL (8.5-10.1) 7.4 mg/dL (8.5-10.1) Phosphorus Level 1.3 mg/dL (2.6-4.7) 2.7 mg/dL (2.6-4.7) Magnesium Level 1.8 mg/dL (1.8-2.4) 1.9 mg/dL (1.8-2.4) Fibrinogen 111 mg/dL (200-440) Glucose (Fingerstick) 154 mg/dL (70-99) Activated Partial Thromboplast Time 36 SEC (24-38) Lactic Acid Level 3.3 mmol/L (0.4-2.0) Iron Level 84 ug/dL (65-175) Total Iron Binding Capacity 69 ug/dL (250-450) Iron Saturation % (15-34) Ferritin 605 ng/mL (26-388) Test 01/21/19 05:00 01/21/19 07:50 White Blood Count 11.9 x10^3/uL (4.0-11.0) Red Blood Count 2.06 x10^6/uL (4.30-5.70) Hemoglobin 6.8 g/dL (13.0-17.5) Hematocrit 19.8 % (39.0-53.0) Mean Corpuscular Volume 96 fL (79-100) Mean Corpuscular Hemoglobin 33 pg (25-35) Mean Corpuscular Hemoglobin Concent 34 g/dL (31-37) Red Cell Distribution Width 18.8 % (11.5-14.5) Platelet Count 27 x10^3/uL (140-400) Neutrophils (%) (Auto) 73 % (31-73) Lymphocytes (%) (Auto) 17 % (24-48) Monocytes (%) (Auto) 9 % (0-9) Eosinophils (%) (Auto) 0 % (0-3) Basophils (%) (Auto) 1 % (0-3) Neutrophils # (Auto) 8.7 x10^3/uL (1.8-7.7) Lymphocytes # (Auto) 2.0 x10^3/uL (1.0-4.8) Monocytes # (Auto) 1.1 x10^3/uL (0.0-1.1) Eosinophils # (Auto) 0.0 x10^3/uL (0.0-0.7) Basophils # (Auto) 0.1 x10^3/uL (0.0-0.2) Prothrombin Time 21.6 SEC (11.7-14.0) Prothromb Time International Ratio 1.9 (0.8-1.1) Sodium Level 140 mmol/L (136-145) Potassium Level 3.7 mmol/L (3.5-5.1) Chloride Level 102 mmol/L (98-107) Carbon Dioxide Level 27 mmol/L (21-32) Anion Gap 11 (6-14) Blood Urea Nitrogen 44 mg/dL (8-26) Creatinine 1.2 mg/dL (0.7-1.3) Estimated GFR (Cockcroft-Gault) 67.8 BUN/Creatinine Ratio 37 (6-20) Glucose Level 186 mg/dL (70-99) Calcium Level 7.6 mg/dL (8.5-10.1) Phosphorus Level 1.9 mg/dL (2.6-4.7) Magnesium Level 1.8 mg/dL (1.8-2.4) Total Bilirubin 19.1 mg/dL (0.2-1.0) Aspartate Amino Transf (AST/SGOT) 178 U/L (15-37) Alanine Aminotransferase (ALT/SGPT) 58 U/L (16-63) Alkaline Phosphatase 226 U/L (46-116) Total Protein 6.2 g/dL (6.4-8.2) Albumin 3.6 g/dL (3.4-5.0) Albumin/Globulin Ratio 1.4 (1.0-1.7) O2 Saturation 98 % (92-99) Arterial Blood pH 7.39 (7.35-7.45) Arterial Blood pCO2 at Patient Temp 41 mmHg (35-46) Arterial Blood pO2 at Patient Temp 109 mmHg (85-108) Arterial Blood HCO3 24 mmol/L (21-28) Arterial Blood Base Excess -1 mmol/L (-3-3) FiO2 100 Results All relevant outside records, renal labs, imaging studies, telemetry/EKG's were reviewed. GIANNI HAY MD Jan 21, 2019 09:30
--- NOTE | 2019-01-21 09:47 | PDOC ---
SUBJECTIVE Subjective S: plt up a touch, only bloody sputum on suction of ETT O: Gen: young man w/ anasarca sedated and intubated in NAD Skin: warm, dry, diffuse anasarca, bruising Labs: PF4 ordered wbc 11.9, Hb 6.8, plt 27 up from 24 INR 1.9 PTT nl fibrin 111 12/3 pm ferr 605, TIBC low, Cr 1.2 INR 1.9 bili up to 19 Rads: BLE u/s neg for clots A/P: He is a 38-year-old man with alcoholic liver disease and multiorgan failure Hematemesis: Not actively bleeding, some bloody sputum coming from suction ET tube but other than fecal occult blood test positive no obvious bleeding, GI has done EGD recently, on PPI Acute renal failure: On CRRT, heparin is being held Respiratory failure: Ventilated, pulmonary is following, on antibiotics with treatment for pneumonia Hypotension: On pressor as needed Liver failure: Bilirubin is rising, INR is elevated, fibrinogen is low, GI is involved, prognosis is poor, due to Etoh Thrombocytopenia: With fibrinogen greater than 100 would hold off on further blood products (cryo) or vitamin K w/ elev INR until PF4 is resulted as his platelet count had been normal a few days ago, bilateral lower extremity ultrasounds neg, reassuring, for now anticoagulation is not being given with thrombocytopenia and the recent hematemesis and fecal occult blood test positivity, PTT nl and no inc in schistocytes on review of peripheral smear Dr Cartagena is reviewing, suspect stress reaction w/ early wbc's. Also antibiotics could be causing thrombocytopenia? Anemia: Would transfuse for hemoglobin less than 7, on Aranesp, (could potentially increase thrombotic risk), no need for Fe, ferr 605 and TIBC low Thank you kindly, I will return on next Sat but Dr Segal is avail in the interim prn, and please don't hesitate to call with further questions. He is a 38-year-old man with alcoholic liver disease and multiorgan failure Hematemesis: Not actively bleeding, some rust color coming from suction tube but other than fecal occult blood test positive no obvious bleeding, GI has done EGD recently, on PPI Acute renal failure: On CRRT, would hold heparin, do not believe he's receiving any but would hold any if it was going to be given at this point until PF4 is resulted Respiratory failure: Ventilated, on 100% FiO2, pulmonary is following, on antibiotics with treatment for pneumonia as needed Hypotension: On pressor as needed Liver failure: Bilirubin is rising, INR is elevated, fibrinogen is low, GI is involved, prognosis is poor, due to Etoh Thrombocytopenia: With fibrinogen greater than 100 would hold off on further blood products (cryo) or vitamin K w/ elev INR until PF4 is resulted as his platelet count had been normal a few days ago, we'll also check bilateral lower extremity ultrasounds in case some consumptive coagulopathy could be ongoing, for now anticoagulation is not being given with thrombocytopenia and the recent hematemesis and fecal occult blood test positivity, we'll repeat PTT and request heme path review of peripheral smear with metamyelocytes, though suspect related to stress, no schistocytes noted on the hem diff. Also antibiotics could be causing thrombocytopenia? Anemia: Would transfuse for hemoglobin less than 7, on Aranesp, (could potentially increase thrombotic risk), will check ferritin and iron panel Thank you kindly for this consultation, and please don't hesitate to call with further questions. OBJECTIVE Vital Signs Vital Signs Date Time Temp Pulse Resp B/P (MAP) Pulse Ox O2 Delivery O2 Flow Rate FiO2 01/21/19 09:23 24 100 Ventilator 01/21/19 09:00 78 24 126/58 (80) 100 Ventilator 01/21/19 08:00 97.4 84 24 179/84 (115) 100 Ventilator 97.4 01/21/19 08:00 Mechanical Ventilator 01/21/19 07:41 100 Ventilator 01/21/19 07:00 76 24 134/57 (82) 100 Ventilator 01/21/19 06:00 75 24 112/48 (69) 100 Ventilator 01/21/19 05:30 100 Ventilator 01/21/19 05:00 74 24 114/44 (67) 100 Ventilator 01/21/19 04:00 97.8 74 24 110/45 (66) 100 Ventilator 97.8 01/21/19 04:00 Mechanical Ventilator 01/21/19 03:34 100 Ventilator 01/21/19 03:04 100 Ventilator 01/21/19 03:01 100 Ventilator 01/21/19 03:00 74 24 93/46 (62) 100 Ventilator 01/21/19 02:00 74 24 96/43 (60) 100 Ventilator 01/21/19 01:43 100 Ventilator 01/21/19 01:00 74 24 101/54 (70) 100 Ventilator 01/21/19 00:00 98.6 78 24 93/50 (64) 100 Ventilator 98.6 01/20/19 23:59 Mechanical Ventilator 01/20/19 23:47 100 Ventilator 01/20/19 23:00 79 24 110/59 (76) 100 Ventilator 01/20/19 22:00 88 24 135/70 (91) 100 Ventilator 01/20/19 21:25 100 Ventilator 01/20/19 21:09 100 Ventilator 01/20/19 21:00 88 24 157/80 (105) 100 Ventilator 01/20/19 20:39 100 Ventilator 01/20/19 20:02 100 Ventilator 01/20/19 20:00 Mechanical Ventilator 01/20/19 20:00 84 24 109/53 (71) 100 Ventilator 01/20/19 19:00 98.3 86 24 109/59 (76) 100 Ventilator 98.3 01/20/19 18:00 90 24 108/61 (77) 100 Ventilator 01/20/19 17:11 96 Ventilator 01/20/19 17:00 94 24 119/65 (83) 100 Ventilator 01/20/19 16:00 99.0 93 24 113/54 (73) 100 Ventilator 99.0 01/20/19 16:00 Mechanical Ventilator 01/20/19 15:39 100 2.0 01/20/19 15:17 96 Ventilator 01/20/19 15:09 96 2.0 01/20/19 15:00 95 24 118/58 (78) 100 Ventilator 01/20/19 14:00 94 24 116/61 (79) 98 Ventilator 01/20/19 13:25 96 Ventilator 01/20/19 13:00 94 24 122/55 (77) 97 Ventilator 01/20/19 12:00 Mechanical Ventilator 01/20/19 12:00 98.6 97 24 139/59 (85) 100 Ventilator 98.6 01/20/19 11:35 96 Ventilator 01/20/19 11:00 93 24 106/49 (68) 97 Ventilator 01/20/19 10:16 97 2.0 01/20/19 10:00 84 24 95/45 (62) 97 Ventilator 01/20/19 09:46 96 2.0 I & O Intake and Output 01/21/19 07:00 Intake Total 3302.5 ml Output Total 0 ml Balance 3302.5 ml IV Total 3127.5 ml Blood Product 140 ml Blood Product IV Normal Saline Flush 35 ml Output Urine Total 0 ml COMMENT Lab Laboratory Tests Test 01/20/19 13:07 01/20/19 15:04 01/20/19 17:16 01/20/19 21:00 Sodium Level 143 mmol/L (136-145) 142 mmol/L (136-145) Potassium Level 4.0 mmol/L (3.5-5.1) 4.3 mmol/L (3.5-5.1) Chloride Level 102 mmol/L (98-107) 102 mmol/L (98-107) Carbon Dioxide Level 29 mmol/L (21-32) 28 mmol/L (21-32) Anion Gap 12 (6-14) 12 (6-14) Blood Urea Nitrogen 41 mg/dL (8-26) 46 mg/dL (8-26) Creatinine 1.3 mg/dL (0.7-1.3) 1.2 mg/dL (0.7-1.3) Estimated GFR (Cockcroft-Gault) 61.8 67.8 Glucose Level 168 mg/dL (70-99) 165 mg/dL (70-99) Calcium Level 7.2 mg/dL (8.5-10.1) 7.4 mg/dL (8.5-10.1) Phosphorus Level 1.3 mg/dL (2.6-4.7) 2.7 mg/dL (2.6-4.7) Magnesium Level 1.8 mg/dL (1.8-2.4) 1.9 mg/dL (1.8-2.4) Fibrinogen 111 mg/dL (200-440) Glucose (Fingerstick) 154 mg/dL (70-99) Activated Partial Thromboplast Time 36 SEC (24-38) Lactic Acid Level 3.3 mmol/L (0.4-2.0) Iron Level 84 ug/dL (65-175) Total Iron Binding Capacity 69 ug/dL (250-450) Iron Saturation % (15-34) Ferritin 605 ng/mL (26-388) Test 01/21/19 05:00 01/21/19 07:50 01/21/19 09:00 White Blood Count 11.9 x10^3/uL (4.0-11.0) Red Blood Count 2.06 x10^6/uL (4.30-5.70) Hemoglobin 6.8 g/dL (13.0-17.5) Hematocrit 19.8 % (39.0-53.0) Mean Corpuscular Volume 96 fL (79-100) Mean Corpuscular Hemoglobin 33 pg (25-35) Mean Corpuscular Hemoglobin Concent 34 g/dL (31-37) Red Cell Distribution Width 18.8 % (11.5-14.5) Platelet Count 27 x10^3/uL (140-400) Neutrophils (%) (Auto) 73 % (31-73) Lymphocytes (%) (Auto) 17 % (24-48) Monocytes (%) (Auto) 9 % (0-9) Eosinophils (%) (Auto) 0 % (0-3) Basophils (%) (Auto) 1 % (0-3) Neutrophils # (Auto) 8.7 x10^3/uL (1.8-7.7) Lymphocytes # (Auto) 2.0 x10^3/uL (1.0-4.8) Monocytes # (Auto) 1.1 x10^3/uL (0.0-1.1) Eosinophils # (Auto) 0.0 x10^3/uL (0.0-0.7) Basophils # (Auto) 0.1 x10^3/uL (0.0-0.2) Prothrombin Time 21.6 SEC (11.7-14.0) Prothromb Time International Ratio 1.9 (0.8-1.1) Sodium Level 140 mmol/L (136-145) Potassium Level 3.7 mmol/L (3.5-5.1) Chloride Level 102 mmol/L (98-107) Carbon Dioxide Level 27 mmol/L (21-32) Anion Gap 11 (6-14) Blood Urea Nitrogen 44 mg/dL (8-26) Creatinine 1.2 mg/dL (0.7-1.3) Estimated GFR (Cockcroft-Gault) 67.8 BUN/Creatinine Ratio 37 (6-20) Glucose Level 186 mg/dL (70-99) Calcium Level 7.6 mg/dL (8.5-10.1) Phosphorus Level 1.9 mg/dL (2.6-4.7) Magnesium Level 1.8 mg/dL (1.8-2.4) Total Bilirubin 19.1 mg/dL (0.2-1.0) Aspartate Amino Transf (AST/SGOT) 178 U/L (15-37) Alanine Aminotransferase (ALT/SGPT) 58 U/L (16-63) Alkaline Phosphatase 226 U/L (46-116) Total Protein 6.2 g/dL (6.4-8.2) Albumin 3.6 g/dL (3.4-5.0) Albumin/Globulin Ratio 1.4 (1.0-1.7) O2 Saturation 98 % (92-99) Arterial Blood pH 7.39 (7.35-7.45) Arterial Blood pCO2 at Patient Temp 41 mmHg (35-46) Arterial Blood pO2 at Patient Temp 109 mmHg (85-108) Arterial Blood HCO3 24 mmol/L (21-28) Arterial Blood Base Excess -1 mmol/L (-3-3) FiO2 100 Lactic Acid Level 3.6 mmol/L (0.4-2.0) ELIDA QUINTEROS MD Jan 21, 2019 09:47
--- NOTE | 2019-01-21 10:11 | PDOC ---
PROGRESS NOTES Chief Complaint Chief Complaint Acute respiratory falure, IPPV - 01.08, fluid overload vs Atypical infection VS ARDS from aspiration HEMATEMESIS in A HEAVY DRINKER -Atrophic gastritis, ?MW tear BUT NO ACTIVE GIB - s.po STAT EGD 01/08 SEVERE PCM - albumin 1,7 -s/p albumin 01/09 - off pressors by 01/10 MInimal ascites - by US and CT HYPOTENSION, s/p, pressors standby, albumin, blood products if needed Coagulopathy - s/p vit K, HEPATIC enceph - ammonia midly high 60-90s - lactulose,UT HIGH residuals TRAMSAMINITIS with ELEVATED TB- per GI (TB 9), AST 300s-500s HEp C antibody positive LEft leg bruise, in this coagulopathic anemic pt sec to fall 2 weeks ago - monitor ELEVATED AGAP acidosis NEw ESRD HD - Sat before ? DIC Acute precip drop hgb 01/21 History of Present Illness History of Present Illness DAy 14 hospital stay D dimer > 20 Platelets dropping off DVT ppx, just SCDs Now hgb 6.8 - to get 1 pRBC per heme onc heme onc note reviewed, D dimer high, fibrinogen low, Fibrin split products, LDH, retci all pending ? DIC - did get cryo and oswald K per HAND MODEL tommy needed to start CRRT Sat before NO UO Waking up some, recognizes Anasarca stable TPN, ileus etc so cant do TFs - BS ok LAst BM saturday - CANT TURN< desats, hypotension took him a whole 24 hr to recover from that at bedside, explained to her, crying, poor prognosis Still full code PLAN: Awaiting the rest fo DIC and PF4 to r.o HIT panel OVER AL PRG GRIM, LOTS OF MEDICAL ISSUES HIGH VENT, LOW BP< LOW ALBUMIN< NO UO CRRT per renal Abx per ID TPN for now maintain esteves On dvt and ppi ppx NOt ready for trach yet, high O2 and pEEP LTAC screen Off oac for now, bec og FOBT positive, anemia, dropping plateelts etc - SO ALSO HIGH RSK FRO THROMBOSIS TRANSFSUE 1 prcb for hgb 6.8 today Daily labs dw family members at bedside Critically ill Vitals Vitals Vital Signs Date Time Temp Pulse Resp B/P (MAP) Pulse Ox O2 Delivery O2 Flow Rate FiO2 01/21/19 09:23 24 100 Ventilator 01/21/19 09:00 78 126/58 (80) 01/21/19 08:00 97.4 97.4 01/20/19 15:39 2.0 Physical Exam Physical Exam GENERAL: Orally intubated and sedated, CRRT HEENT: Icteric, Pupils equal, ETT and OGT LUNGS: Right-sided rhonchi HEART: S1 S2 regular ABDOMEN: Obese, soft, hypoactive BS : - Esteves EXTREMITIES:gen edema, LLE ecchymosis. SKIN: Warm to touch. No rash NEUROLOGIC: Sedated RIJ and Temp RIJ/HDC (01/13) clean PIV General: Other (tachypneic 30s) Heart: Regular rate, Normal S1, Normal S2 Lungs: Other (coarse bs bilaterally) Abdomen: Soft, No tenderness, Other (pot belly possible fluid wave) Extremities: No clubbing, No cyanosis, Normal pulses, Other (left leg is bruised from a fall 2-3 weeks ago) Labs LABS Laboratory Tests Test 01/20/19 13:07 01/20/19 15:04 01/20/19 17:16 01/20/19 21:00 Sodium Level 143 mmol/L (136-145) 142 mmol/L (136-145) Potassium Level 4.0 mmol/L (3.5-5.1) 4.3 mmol/L (3.5-5.1) Chloride Level 102 mmol/L (98-107) 102 mmol/L (98-107) Carbon Dioxide Level 29 mmol/L (21-32) 28 mmol/L (21-32) Anion Gap 12 (6-14) 12 (6-14) Blood Urea Nitrogen 41 mg/dL (8-26) 46 mg/dL (8-26) Creatinine 1.3 mg/dL (0.7-1.3) 1.2 mg/dL (0.7-1.3) Estimated GFR (Cockcroft-Gault) 61.8 67.8 Glucose Level 168 mg/dL (70-99) 165 mg/dL (70-99) Calcium Level 7.2 mg/dL (8.5-10.1) 7.4 mg/dL (8.5-10.1) Phosphorus Level 1.3 mg/dL (2.6-4.7) 2.7 mg/dL (2.6-4.7) Magnesium Level 1.8 mg/dL (1.8-2.4) 1.9 mg/dL (1.8-2.4) Fibrinogen 111 mg/dL (200-440) Glucose (Fingerstick) 154 mg/dL (70-99) Activated Partial Thromboplast Time 36 SEC (24-38) Lactic Acid Level 3.3 mmol/L (0.4-2.0) Iron Level 84 ug/dL (65-175) Total Iron Binding Capacity 69 ug/dL (250-450) Iron Saturation % (15-34) Ferritin 605 ng/mL (26-388) Test 01/21/19 05:00 01/21/19 07:50 01/21/19 09:00 White Blood Count 11.9 x10^3/uL (4.0-11.0) Red Blood Count 2.06 x10^6/uL (4.30-5.70) Hemoglobin 6.8 g/dL (13.0-17.5) Hematocrit 19.8 % (39.0-53.0) Mean Corpuscular Volume 96 fL (79-100) Mean Corpuscular Hemoglobin 33 pg (25-35) Mean Corpuscular Hemoglobin Concent 34 g/dL (31-37) Red Cell Distribution Width 18.8 % (11.5-14.5) Platelet Count 27 x10^3/uL (140-400) Neutrophils (%) (Auto) 73 % (31-73) Lymphocytes (%) (Auto) 17 % (24-48) Monocytes (%) (Auto) 9 % (0-9) Eosinophils (%) (Auto) 0 % (0-3) Basophils (%) (Auto) 1 % (0-3) Neutrophils # (Auto) 8.7 x10^3/uL (1.8-7.7) Lymphocytes # (Auto) 2.0 x10^3/uL (1.0-4.8) Monocytes # (Auto) 1.1 x10^3/uL (0.0-1.1) Eosinophils # (Auto) 0.0 x10^3/uL (0.0-0.7) Basophils # (Auto) 0.1 x10^3/uL (0.0-0.2) Prothrombin Time 21.6 SEC (11.7-14.0) Prothromb Time International Ratio 1.9 (0.8-1.1) Sodium Level 140 mmol/L (136-145) Potassium Level 3.7 mmol/L (3.5-5.1) Chloride Level 102 mmol/L (98-107) Carbon Dioxide Level 27 mmol/L (21-32) Anion Gap 11 (6-14) Blood Urea Nitrogen 44 mg/dL (8-26) Creatinine 1.2 mg/dL (0.7-1.3) Estimated GFR (Cockcroft-Gault) 67.8 BUN/Creatinine Ratio 37 (6-20) Glucose Level 186 mg/dL (70-99) Calcium Level 7.6 mg/dL (8.5-10.1) Phosphorus Level 1.9 mg/dL (2.6-4.7) Magnesium Level 1.8 mg/dL (1.8-2.4) Total Bilirubin 19.1 mg/dL (0.2-1.0) Aspartate Amino Transf (AST/SGOT) 178 U/L (15-37) Alanine Aminotransferase (ALT/SGPT) 58 U/L (16-63) Alkaline Phosphatase 226 U/L (46-116) Total Protein 6.2 g/dL (6.4-8.2) Albumin 3.6 g/dL (3.4-5.0) Albumin/Globulin Ratio 1.4 (1.0-1.7) O2 Saturation 98 % (92-99) Arterial Blood pH 7.39 (7.35-7.45) Arterial Blood pCO2 at Patient Temp 41 mmHg (35-46) Arterial Blood pO2 at Patient Temp 109 mmHg (85-108) Arterial Blood HCO3 24 mmol/L (21-28) Arterial Blood Base Excess -1 mmol/L (-3-3) FiO2 100 Lactic Acid Level 3.6 mmol/L (0.4-2.0) Review of Systems Review of Systems intubated, sedated Assessment and Plan Assessmemt and Plan Problems Medical Problems: (1) Acute hepatic encephalopathy Status: Acute (2) Acute upper GI bleed Status: Acute (3) Ascites Status: Acute (4) Hypokalemia Status: Acute (5) Multiple organ system failure Status: Acute (6) Severe sepsis with acute organ dysfunction Status: Acute Comment Review of Relevant I have reviewed the following items karen (where applicable) has been applied. Labs Laboratory Tests Test 01/19/19 12:52 01/19/19 17:19 01/19/19 20:45 01/20/19 05:15 Platelet Count 28 x10^3/uL (140-400) 24 x10^3/uL (140-400) Prothrombin Time 24.4 SEC (11.7-14.0) 22.0 SEC (11.7-14.0) Prothromb Time International Ratio 2.2 (0.8-1.1) 2.0 (0.8-1.1) Activated Partial Thromboplast Time 36 SEC (24-38) Fibrinogen 112 mg/dL (200-440) D-Dimer (Yudi) > 20.00 ug/mlFEU Sodium Level 142 mmol/L (136-145) 142 mmol/L (136-145) 142 mmol/L (136-145) Potassium Level 4.2 mmol/L (3.5-5.1) 4.2 mmol/L (3.5-5.1) 4.1 mmol/L (3.5-5.1) Chloride Level 102 mmol/L (98-107) 103 mmol/L (98-107) 103 mmol/L (98-107) Carbon Dioxide Level 27 mmol/L (21-32) 28 mmol/L (21-32) 29 mmol/L (21-32) Anion Gap 13 (6-14) 11 (6-14) 10 (6-14) Blood Urea Nitrogen 32 mg/dL (8-26) 32 mg/dL (8-26) 39 mg/dL (8-26) Creatinine 1.3 mg/dL (0.7-1.3) 1.2 mg/dL (0.7-1.3) 1.3 mg/dL (0.7-1.3) Estimated GFR (Cockcroft-Gault) 61.8 67.8 61.8 Glucose Level 202 mg/dL (70-99) 164 mg/dL (70-99) 178 mg/dL (70-99) Lactic Acid Level 8.2 mmol/L (0.4-2.0) 5.9 mmol/L (0.4-2.0) Calcium Level 7.2 mg/dL (8.5-10.1) 7.2 mg/dL (8.5-10.1) 7.1 mg/dL (8.5-10.1) Phosphorus Level 1.9 mg/dL (2.6-4.7) 1.7 mg/dL (2.6-4.7) 1.5 mg/dL (2.6-4.7) Magnesium Level 2.1 mg/dL (1.8-2.4) 2.0 mg/dL (1.8-2.4) 1.9 mg/dL (1.8-2.4) Glucose (Fingerstick) 169 mg/dL (70-99) White Blood Count 12.0 x10^3/uL (4.0-11.0) Red Blood Count 2.15 x10^6/uL (4.30-5.70) Hemoglobin 7.2 g/dL (13.0-17.5) Hematocrit 20.8 % (39.0-53.0) Mean Corpuscular Volume 97 fL (79-100) Mean Corpuscular Hemoglobin 33 pg (25-35) Mean Corpuscular Hemoglobin Concent 35 g/dL (31-37) Red Cell Distribution Width 20.5 % (11.5-14.5) Neutrophils (%) (Auto) 82 % (31-73) Lymphocytes (%) (Auto) 11 % (24-48) Monocytes (%) (Auto) 6 % (0-9) Eosinophils (%) (Auto) 0 % (0-3) Basophils (%) (Auto) 1 % (0-3) Neutrophils # (Auto) 9.8 x10^3/uL (1.8-7.7) Lymphocytes # (Auto) 1.4 x10^3/uL (1.0-4.8) Monocytes # (Auto) 0.8 x10^3/uL (0.0-1.1) Eosinophils # (Auto) 0.0 x10^3/uL (0.0-0.7) Basophils # (Auto) 0.1 x10^3/uL (0.0-0.2) BUN/Creatinine Ratio 30 (6-20) Total Bilirubin 16.2 mg/dL (0.2-1.0) Aspartate Amino Transf (AST/SGOT) 250 U/L (15-37) Alanine Aminotransferase (ALT/SGPT) 75 U/L (16-63) Alkaline Phosphatase 203 U/L (46-116) Total Protein 6.1 g/dL (6.4-8.2) Albumin 3.4 g/dL (3.4-5.0) Albumin/Globulin Ratio 1.3 (1.0-1.7) Test 01/20/19 07:53 01/20/19 09:03 01/20/19 13:07 01/20/19 15:04 O2 Saturation 90 % (92-99) Arterial Blood pH 7.41 (7.35-7.45) Arterial Blood pCO2 at Patient Temp 40 mmHg (35-46) Arterial Blood pO2 at Patient Temp 58 mmHg (85-108) Arterial Blood HCO3 25 mmol/L (21-28) Arterial Blood Base Excess 0 mmol/L (-3-3) FiO2 100 Fibrinogen 90 mg/dL (200-440) 111 mg/dL (200-440) Lactic Acid Level 5.5 mmol/L (0.4-2.0) Sodium Level 143 mmol/L (136-145) Potassium Level 4.0 mmol/L (3.5-5.1) Chloride Level 102 mmol/L (98-107) Carbon Dioxide Level 29 mmol/L (21-32) Anion Gap 12 (6-14) Blood Urea Nitrogen 41 mg/dL (8-26) Creatinine 1.3 mg/dL (0.7-1.3) Estimated GFR (Cockcroft-Gault) 61.8 Glucose Level 168 mg/dL (70-99) Calcium Level 7.2 mg/dL (8.5-10.1) Phosphorus Level 1.3 mg/dL (2.6-4.7) Magnesium Level 1.8 mg/dL (1.8-2.4) Test 01/20/19 17:16 01/20/19 21:00 01/21/19 05:00 01/21/19 07:50 Glucose (Fingerstick) 154 mg/dL (70-99) Activated Partial Thromboplast Time 36 SEC (24-38) Sodium Level 142 mmol/L (136-145) 140 mmol/L (136-145) Potassium Level 4.3 mmol/L (3.5-5.1) 3.7 mmol/L (3.5-5.1) Chloride Level 102 mmol/L (98-107) 102 mmol/L (98-107) Carbon Dioxide Level 28 mmol/L (21-32) 27 mmol/L (21-32) Anion Gap 12 (6-14) 11 (6-14) Blood Urea Nitrogen 46 mg/dL (8-26) 44 mg/dL (8-26) Creatinine 1.2 mg/dL (0.7-1.3) 1.2 mg/dL (0.7-1.3) Estimated GFR (Cockcroft-Gault) 67.8 67.8 Glucose Level 165 mg/dL (70-99) 186 mg/dL (70-99) Lactic Acid Level 3.3 mmol/L (0.4-2.0) Calcium Level 7.4 mg/dL (8.5-10.1) 7.6 mg/dL (8.5-10.1) Phosphorus Level 2.7 mg/dL (2.6-4.7) 1.9 mg/dL (2.6-4.7) Magnesium Level 1.9 mg/dL (1.8-2.4) 1.8 mg/dL (1.8-2.4) Iron Level 84 ug/dL (65-175) Total Iron Binding Capacity 69 ug/dL (250-450) Iron Saturation % (15-34) Ferritin 605 ng/mL (26-388) White Blood Count 11.9 x10^3/uL (4.0-11.0) Red Blood Count 2.06 x10^6/uL (4.30-5.70) Hemoglobin 6.8 g/dL (13.0-17.5) Hematocrit 19.8 % (39.0-53.0) Mean Corpuscular Volume 96 fL (79-100) Mean Corpuscular Hemoglobin 33 pg (25-35) Mean Corpuscular Hemoglobin Concent 34 g/dL (31-37) Red Cell Distribution Width 18.8 % (11.5-14.5) Platelet Count 27 x10^3/uL (140-400) Neutrophils (%) (Auto) 73 % (31-73) Lymphocytes (%) (Auto) 17 % (24-48) Monocytes (%) (Auto) 9 % (0-9) Eosinophils (%) (Auto) 0 % (0-3) Basophils (%) (Auto) 1 % (0-3) Neutrophils # (Auto) 8.7 x10^3/uL (1.8-7.7) Lymphocytes # (Auto) 2.0 x10^3/uL (1.0-4.8) Monocytes # (Auto) 1.1 x10^3/uL (0.0-1.1) Eosinophils # (Auto) 0.0 x10^3/uL (0.0-0.7) Basophils # (Auto) 0.1 x10^3/uL (0.0-0.2) Prothrombin Time 21.6 SEC (11.7-14.0) Prothromb Time International Ratio 1.9 (0.8-1.1) BUN/Creatinine Ratio 37 (6-20) Total Bilirubin 19.1 mg/dL (0.2-1.0) Aspartate Amino Transf (AST/SGOT) 178 U/L (15-37) Alanine Aminotransferase (ALT/SGPT) 58 U/L (16-63) Alkaline Phosphatase 226 U/L (46-116) Total Protein 6.2 g/dL (6.4-8.2) Albumin 3.6 g/dL (3.4-5.0) Albumin/Globulin Ratio 1.4 (1.0-1.7) O2 Saturation 98 % (92-99) Arterial Blood pH 7.39 (7.35-7.45) Arterial Blood pCO2 at Patient Temp 41 mmHg (35-46) Arterial Blood pO2 at Patient Temp 109 mmHg (85-108) Arterial Blood HCO3 24 mmol/L (21-28) Arterial Blood Base Excess -1 mmol/L (-3-3) FiO2 100 Test 01/21/19 09:00 Lactic Acid Level 3.6 mmol/L (0.4-2.0) Laboratory Tests Test 01/20/19 13:07 01/20/19 15:04 01/20/19 17:16 01/20/19 21:00 Sodium Level 143 mmol/L (136-145) 142 mmol/L (136-145) Potassium Level 4.0 mmol/L (3.5-5.1) 4.3 mmol/L (3.5-5.1) Chloride Level 102 mmol/L (98-107) 102 mmol/L (98-107) Carbon Dioxide Level 29 mmol/L (21-32) 28 mmol/L (21-32) Anion Gap 12 (6-14) 12 (6-14) Blood Urea Nitrogen 41 mg/dL (8-26) 46 mg/dL (8-26) Creatinine 1.3 mg/dL (0.7-1.3) 1.2 mg/dL (0.7-1.3) Estimated GFR (Cockcroft-Gault) 61.8 67.8 Glucose Level 168 mg/dL (70-99) 165 mg/dL (70-99) Calcium Level 7.2 mg/dL (8.5-10.1) 7.4 mg/dL (8.5-10.1) Phosphorus Level 1.3 mg/dL (2.6-4.7) 2.7 mg/dL (2.6-4.7) Magnesium Level 1.8 mg/dL (1.8-2.4) 1.9 mg/dL (1.8-2.4) Fibrinogen 111 mg/dL (200-440) Glucose (Fingerstick) 154 mg/dL (70-99) Activated Partial Thromboplast Time 36 SEC (24-38) Lactic Acid Level 3.3 mmol/L (0.4-2.0) Iron Level 84 ug/dL (65-175) Total Iron Binding Capacity 69 ug/dL (250-450) Iron Saturation % (15-34) Ferritin 605 ng/mL (26-388) Test 01/21/19 05:00 01/21/19 07:50 01/21/19 09:00 White Blood Count 11.9 x10^3/uL (4.0-11.0) Red Blood Count 2.06 x10^6/uL (4.30-5.70) Hemoglobin 6.8 g/dL (13.0-17.5) Hematocrit 19.8 % (39.0-53.0) Mean Corpuscular Volume 96 fL (79-100) Mean Corpuscular Hemoglobin 33 pg (25-35) Mean Corpuscular Hemoglobin Concent 34 g/dL (31-37) Red Cell Distribution Width 18.8 % (11.5-14.5) Platelet Count 27 x10^3/uL (140-400) Neutrophils (%) (Auto) 73 % (31-73) Lymphocytes (%) (Auto) 17 % (24-48) Monocytes (%) (Auto) 9 % (0-9) Eosinophils (%) (Auto) 0 % (0-3) Basophils (%) (Auto) 1 % (0-3) Neutrophils # (Auto) 8.7 x10^3/uL (1.8-7.7) Lymphocytes # (Auto) 2.0 x10^3/uL (1.0-4.8) Monocytes # (Auto) 1.1 x10^3/uL (0.0-1.1) Eosinophils # (Auto) 0.0 x10^3/uL (0.0-0.7) Basophils # (Auto) 0.1 x10^3/uL (0.0-0.2) Prothrombin Time 21.6 SEC (11.7-14.0) Prothromb Time International Ratio 1.9 (0.8-1.1) Sodium Level 140 mmol/L (136-145) Potassium Level 3.7 mmol/L (3.5-5.1) Chloride Level 102 mmol/L (98-107) Carbon Dioxide Level 27 mmol/L (21-32) Anion Gap 11 (6-14) Blood Urea Nitrogen 44 mg/dL (8-26) Creatinine 1.2 mg/dL (0.7-1.3) Estimated GFR (Cockcroft-Gault) 67.8 BUN/Creatinine Ratio 37 (6-20) Glucose Level 186 mg/dL (70-99) Calcium Level 7.6 mg/dL (8.5-10.1) Phosphorus Level 1.9 mg/dL (2.6-4.7) Magnesium Level 1.8 mg/dL (1.8-2.4) Total Bilirubin 19.1 mg/dL (0.2-1.0) Aspartate Amino Transf (AST/SGOT) 178 U/L (15-37) Alanine Aminotransferase (ALT/SGPT) 58 U/L (16-63) Alkaline Phosphatase 226 U/L (46-116) Total Protein 6.2 g/dL (6.4-8.2) Albumin 3.6 g/dL (3.4-5.0) Albumin/Globulin Ratio 1.4 (1.0-1.7) O2 Saturation 98 % (92-99) Arterial Blood pH 7.39 (7.35-7.45) Arterial Blood pCO2 at Patient Temp 41 mmHg (35-46) Arterial Blood pO2 at Patient Temp 109 mmHg (85-108) Arterial Blood HCO3 24 mmol/L (21-28) Arterial Blood Base Excess -1 mmol/L (-3-3) FiO2 100 Lactic Acid Level 3.6 mmol/L (0.4-2.0) Microbiology 01/15/19 - Final, Complete 01/15/19 - Final, Complete 01/15/19 - Final, Complete 01/15/19 Gram Stain Evaluation - Final, Complete 01/15/19 Sputum Culture - Final, Complete 01/15/19 Sputum Result 1 - Final, Complete 01/14/19 Blood Culture - Final, Complete NO GROWTH AFTER 5 DAYS 01/08/19 Urine Culture - Final, Complete 01/08/19 Urine Culture Result 1 (ELMA) - Final, Complete Medications Current Medications Sodium Chloride 1,000 ml @ 1,000 mls/hr 1X ONCE IV Last administered on 01/07/19at 19:27; Start 01/07/19 at 19:30; Stop 01/07/19 at 20:29; Status DC Ondansetron HCl (Zofran) 4 mg 1X ONCE IV Last administered on 01/07/19at 19:28; Start 01/07/19 at 19:30; Stop 01/07/19 at 19:31; Status DC Pantoprazole Sodium (PROTONIX VIAL for IV PUSH) 80 mg 1X ONCE IVP Last administered on 01/07/19at 19:50; Start 01/07/19 at 20:00; Stop 01/07/19 at 20:01; Status DC Pantoprazole Sodium 80 mg/ Sodium Chloride 100 ml @ 10 mls/hr 1X ONCE IV Last administered on 01/07/19at 20:00; Start 01/07/19 at 20:00; Stop 01/08/19 at 05:59; Status DC Sodium Chloride 1,000 ml @ 1,000 mls/hr 1X ONCE IV Last administered on 01/07/19at 22:12; Start 01/07/19 at 21:00; Stop 01/07/19 at 21:59; Status DC Sodium Chloride 1,000 ml @ 1,000 mls/hr 1X ONCE IV Last administered on 01/07/19at 20:40; Start 01/07/19 at 20:45; Stop 01/07/19 at 21:44; Status DC Potassium Chloride/Sodium Chloride 1,000 ml @ 75 mls/hr 1X ONCE IV Last adm inistered on 01/07/19at 21:16; Start 01/07/19 at 21:30; Stop 01/08/19 at 10:49; Status DC Vancomycin HCl (Vanco Per Pharmacy) 1 each PRN DAILY PRN MC SEE COMMENTS Last administered on 01/08/19at 00:43; Start 01/07/19 at 21:00; Stop 01/08/19 at 06:39; Status DC Piperacillin Sod/ Tazobactam Sod (Zosyn Per Pharmacy) 1 each PRN DAILY PRN MC SEE COMMENTS; Start 01/07/19 at 21:00; Stop 01/18/19 at 12:16; Status DC Piperacillin Sod/ Tazobactam Sod 3.375 gm/Sodium Chloride 50 ml @ 100 mls/hr Q6HRS IV Last administered on 01/18/19at 05:54; Start 01/07/19 at 22:00; Stop 01/18/19 at 12:16; Status DC Vancomycin HCl 2 gm/Sodium Chloride 500 ml @ 250 mls/hr 1X ONCE IV Last administered on 01/07/19at 22:11; Start 01/07/19 at 22:00; Stop 01/07/19 at 23:59; Status DC Lorazepam (Ativan Inj) 1 mg 1X ONCE IV Last administered on 01/07/19at 23:22; Start 01/07/19 at 23:30; Stop 01/07/19 at 23:31; Status DC Lorazepam (Ativan Inj) 2 mg STK-MED ONCE .ROUTE ; Start 01/07/19 at 23:20; Stop 01/07/19 at 23:21; Status DC Vancomycin HCl 1.5 gm/Sodium Chloride 500 ml @ 250 mls/hr Q12H IV ; Start 01/08/19 at 10:00; Stop 01/08/19 at 06:39; Status DC Vancomycin HCl (Vancomycin Trough Level) 1 each 1X ONCE MC ; Start 01/09/19 at 09:30; Stop 01/09/19 at 09:31; Status Cancel Ondansetron HCl (Zofran) 4 mg PRN Q6HRS PRN IVP NAUSEA/VOMITING; Start 01/08/19 at 04:00; Status Cancel Pantoprazole Sodium 80 mg/ Sodium Chloride 100 ml @ 10 mls/hr Q10H IV Last administered on 01/09/19at 02:00; Start 01/08/19 at 06:00; Stop 01/09/19 at 11:00; Status DC Multivitamins 10 ml/Thiamine HCl 100 mg/Folic Acid 1 mg/Sodium Chloride 1,011.2 ml @ 100 mls/ hr DAILY IV Last administered on 01/12/19at 10:29; Start 01/08/19 at 09:00; Stop 01/12/19 at 19:07; Status DC Lorazepam (Ativan Inj) 2 mg PRN Q1HR PRN IV For CIWA 8-14 Last administered on 01/14/19at 21:01; Start 01/08/19 at 07:15 Lorazepam (Ativan Inj) 4 mg PRN Q1HR PRN IV For CIWA 15 or greater Last administered on 01/15/19at 08:40; Start 01/08/19 at 07:15 Haloperidol Lactate (Haldol Inj) 5 mg PRN Q4HRS PRN IVP Hallucinatns,Confusn,Delirium; Start 01/08/19 at 07:15 Diphenhydramine HCl (Benadryl) 25 mg PRN Q15MIN PRN IVP EPS symptoms 2'Haldol admin; Start 01/08/19 at 07:15 Clonidine HCl (Catapres) 0.1 mg PRN Q1HR PRN PO SBP > 180 or DBP > 100, MRX3; Start 01/08/19 at 07:15 Sodium Bicarbonate (Sodium Bicarb Adult 8.4% Syr) 50 meq 1X ONCE IV Last administered on 01/08/19at 08:04; Start 01/08/19 at 08:00; Stop 01/08/19 at 08:01; Status DC Propofol 100 ml @ As Directed STK-MED ONCE IV ; Start 01/08/19 at 08:19; Stop 01/08/19 at 08:19; Status DC Succinylcholine Chloride (Anectine) 200 mg STK-MED ONCE .ROUTE ; Start 01/08/19 at 08:19; Stop 01/08/19 at 08:19; Status DC Propofol 100 ml @ As Directed STK-MED ONCE IV ; Start 01/08/19 at 08:29; Stop 01/08/19 at 08:30; Status DC Fentanyl Citrate 30 ml @ 0 mls/hr CONT PRN PRN IV PER PROTOCOL Last administered on 01/21/19at 09:23; Start 01/08/19 at 09:00 Naloxone HCl (Narcan) 0.4 mg PRN Q2MIN PRN IV SEE INSTRUCTIONS; Start 01/08/19 at 09:00 Sodium Chloride 1,000 ml @ 25 mls/hr Q24H IV Last administered on 01/17/19at 13:38; Start 01/08/19 at 08:54 Fentanyl Citrate (Fentanyl 2ml Vial) 100 mcg STK-MED ONCE .ROUTE ; Start 01/08/19 at 08:55; Stop 01/08/19 at 08:55; Status DC Octreotide Acetate 500 mcg/ Sodium Chloride 101 ml @ 0 mls/hr CONT PRN IV SEE I/O RECORD Last administered on 01/08/19at 13:56; Start 01/08/19 at 09:00; Stop 01/08/19 at 16:55; Status DC Phytonadione (Vitamin K Ampule) 10 mg 1X ONCE SQ Last administered on 01/08/19at 09:56; Start 01/08/19 at 09:15; Stop 01/08/19 at 09:16; Status DC Metoclopramide HCl (Reglan Vial) 10 mg 1X ONCE IVP Last administered on 01/08/19at 14:36; Start 01/08/19 at 11:00; Stop 01/08/19 at 11:01; Status DC Midazolam HCl (Versed) 5 mg STK-MED ONCE .ROUTE ; Start 01/08/19 at 09:00; Stop 01/08/19 at 09:01; Status DC Acetaminophen (Tylenol) 500 mg PRN Q6HRS PRN PO MILD PAIN / TEMP Last administered on 01/11/19at 17:46; Start 01/08/19 at 09:15; Stop 01/13/19 at 09:11; Status DC Tramadol HCl (Ultram) 50 mg PRN Q6HRS PRN PO PAIN MODERATE; Start 01/08/19 at 09:15 Morphine Sulfate (Morphine Sulfate) 2 mg PRN Q2HR PRN IV PAIN; Start 01/08/19 at 09:15 Ondansetron HCl (Zofran) 4 mg PRN Q6HRS PRN IVP NAUSEA/VOMITING, 1ST CHOICE; Start 01/08/19 at 09:15 Fentanyl Citrate (Fentanyl 2ml Vial) 100 mcg 1X ONCE IVP Last administered on 01/08/19at 09:42; Start 01/08/19 at 09:45; Stop 01/08/19 at 09:46; Status DC Midazolam HCl (Versed) 5 mg 1X ONCE IV Last administered on 01/08/19at 09:41; Start 01/08/19 at 09:45; Stop 01/08/19 at 09:46; Status DC Succinylcholine Chloride (Anectine) 200 mg 1X ONCE IV Last administered on 01/08/19at 09:41; Start 01/08/19 at 09:45; Stop 01/08/19 at 09:46; Status DC Propofol 100 ml @ 1.524 mls/ hr CONT PRN IV SEE I/O RECORD Last administered on 01/14/19at 03:56; Start 01/08/19 at 09:45 Midazolam HCl 100 ml @ 5 mls/hr CONT PRN IV SEE I/O RECORD Last administered on 01/21/19at 00:11; Start 01/08/19 at 11:15 Vecuronium [place] (Norcuron Bolus) 6 mg PRN Q4HRS PRN IV VENT ASYNCHRONY Last administered on 01/18/19at 11:14; Start 01/08/19 at 12:00 Benzocaine (Hurricaine One) 2 spray STK-MED ONCE .ROUTE ; Start 01/07/19 at 12:00; Stop 01/08/19 at 14:20; Status DC Lidocaine HCl (Xylocaine 2% Topical 5gm Tube) 5 amanda STK-MED ONCE TP ; Start 01/07/19 at 12:00; Stop 01/08/19 at 14:20; Status DC Lactobacillus Rhamnosus (Culturelle) 1 cap BID PO ; Start 01/08/19 at 21:00; Stop 01/09/19 at 09:29; Status DC Acetaminophen (Tylenol Supp) 650 mg PRN Q6HRS PRN [place] MILD PAIN / TEMP Last administered on 01/09/19 23:44; Start 01/08/19 at 18:15 Norepinephrine Bitartrate 250 ml @ 18.938 mls/ hr CONT PRN IV SEE I/O RECORD Last administered on 01/19/19 06:31; Start 01/09/19 at 01:45; Stop 01/19/19 at 11:30; Status DC Potassium Chloride (Klor-Con) 40 meq 1X ONCE PO Last administered on 01/09/19at 11:34; Start 01/09/19 at 09:45; Stop 01/09/19 at 09:46; Status DC Metoclopramide HCl (Reglan Vial) 10 mg PRN Q6HRS PRN IVP NAUSEA/VOMITING, 2ND CHOICE Last administered on 01/14/19 21:01; Start 01/09/19 at 10:15 Albumin Human 100 ml @ 100 mls/hr 1X ONCE IV Last administered on 01/09/19 10:49; Start 01/09/19 at 10:15; Stop 01/09/19 at 11:14; Status DC Lactulose (LACTULOSE 300ML for RECTAL) 200 gm Q6HRS UT ; Start 01/09/19 at 12:00; Stop 01/09/19 at 11:04; Status DC Insulin Human Lispro (HumaLOG) 0-9 UNITS TIDWMEALS SQ Last administered on 01/21/19 08:00; Start 01/09/19 at 12:00 Dextrose (Dextrose 50%-Water Syringe) 12.5 gm PRN Q15MIN PRN IV SEE COMMENTS Last administered on 01/18/19at 22:35; Start 01/09/19 at 10:30 Fentanyl Citrate (Fentanyl 600 Mcg/30 ml [employer]) 600 mcg STK-MED ONCE IV ; Start 01/08/19 at 15:25; Stop 01/09/19 at 10:27; Status DC Pantoprazole Sodium (PROTONIX VIAL for IV PUSH) 40 mg DAILYAC IVP Last administered on 01/21/19 07:59; Start 01/10/19 at 07:30 Lactulose (Lactulose) 20 gm DAILY PO Last administered on 01/12/19 08:24; Start 01/09/19 at 11:30; Stop 01/12/19 at 10:12; Status DC Potassium Bicarbonate (Potassium Effervescent Tablet) 40 meq BIDWMEALS FT Last administered on 01/10/19at 17:49; Start 01/10/19 at 09:00; Stop 01/11/19 at 09:20; Status DC Linezolid/Dextrose 300 ml @ 300 mls/hr Q12HR IV Last administered on 01/16/19at 08:26; Start 01/11/19 at 13:00; Stop 01/16/19 at 08:29; Status DC Perflutren Protein Type A Microsphe (Optison) 0.66 mg 1X ONCE IV ; Start 01/11/19 at 13:30; Stop 01/11/19 at 13:31; Status DC Albumin Human 100 ml @ 100 mls/hr 1X ONCE IV Last administered on 01/12/19at 08:25; Start 01/12/19 at 07:45; Stop 01/12/19 at 08:44; Status DC Lactulose (Lactulose) 20 gm PRN DAILY PRN PO constipation; Start 01/12/19 at 10:15; Stop 01/13/19 at 09:11; Status DC Acetaminophen (Tylenol) 650 mg PRN Q6HRS PRN PEG MILD PAIN / TEMP Last administered on 01/14/19at 09:11; Start 01/12/19 at 16:30 Lactulose (Lactulose) 20 gm TID PO Last administered on 01/14/19at 21:01; Start 01/13/19 at 10:00 Albumin Human 500 ml @ 125 mls/hr 1X ONCE IV Last administered on 01/13/19at 09:40; Start 01/13/19 at 10:00; Stop 01/13/19 at 13:59; Status DC Bisacodyl (Dulcolax Supp) 10 mg 1X ONCE UT Last administered on 01/13/19at 10:14; Start 01/13/19 at 11:00; Stop 01/13/19 at 11:01; Status DC Lidocaine HCl (Buffered Lidocaine 1%) 3 ml 1X ONCE INJ Last administered on 01/13/19at 11:00; Start 01/13/19 at 11:00; Stop 01/13/19 at 11:01; Status DC Heparin Sodium (Porcine) (Heparin Sodium) 10,000 unit STK-MED ONCE .ROUTE ; Start 01/13/19 at 10:59; Stop 01/13/19 at 11:00; Status DC Darbepoetin Giorgi (ARANESP for DIALYSIS PTS) 60 mcg [id number] SQ Last administered on 01/20/19at 21:43; Start 01/13/19 at 21:00 Info (Tpn Per Pharmacy) 1 each PRN DAILY PRN MC SEE COMMENTS Last administered on 01/20/19at 13:34; Start 01/13/19 at 11:15 Sodium Chloride 1,000 ml @ 1,000 mls/hr Q1H PRN IV hypotension; Start 01/13/19 at 11:30; Stop 01/13/19 at 19:00; Status DC Albumin Human 200 ml @ 200 mls/hr 1X PRN PRN IV Hypotension; Start 01/13/19 at 11:30; Stop 01/13/19 at 17:29; Status DC Sodium Chloride 1,000 ml @ 400 mls/hr Q2H30M PRN IV PATENCY; Start 01/13/19 at 11:30; Stop 01/13/19 at 19:00; Status DC Info (PHARMACY MONITORING -- do not chart) 1 each PRN DAILY PRN MC SEE COMMENTS; Start 01/13/19 at 11:30 Info (PHARMACY MONITORING -- do not chart) 1 each PRN DAILY PRN MC SEE COMMENTS; Start 01/13/19 at 11:30; Status UNV Sodium Acetate 40 meq/Potassium Acetate 30 meq/ Calcium Gluconate 10 meq/ Multivitamins 10 ml/Chromium/ Copper/Manganese/ Seleni/Zn 1 ml/ Total Parenteral Nutrition/Amino Acids/Dextrose/ Fat Emulsion Intravenous 1,512 ml @ 63 mls/hr TPN CONT IV Last administered on 01/13/19at 21:54; Start 01/13/19 at 22:00; Stop 01/14/19 at 21:59; Status DC Multi-Ingred Cream/Lotion/Oil/ Oint (Artificial Tears Eye Ointment) 1 amanda PRN Q 1HR PRN OU DRY EYE Last administered on 01/13/19at 17:14; Start 01/13/19 at 16:45 Docusate Sodium (Enemeez) 283 mg 1X ONCE UT Last administered on 01/13/19at 17:14; Start 01/13/19 at 16:45; Stop 01/13/19 at 16:47; Status DC Levofloxacin/ Dextrose 100 ml @ 100 mls/hr Q24H IV Last administered on 01/21/19at 08:14; Start 01/14/19 at 09:00 Metoclopramide HCl (Reglan Vial) 5 mg 1X ONCE IVP Last administered on 01/14/19at 10:51; Start 01/14/19 at 10:30; Stop 01/14/19 at 10:31; Status DC Dexmedetomidine HCl 400 mcg/ Sodium Chloride 100 ml @ 0 mls/hr CONT PRN IV AGITATION Last administered on 01/21/19at 08:03; Start 01/14/19 at 11:30 Sodium Chloride 1,000 ml @ 1,000 mls/hr Q1H PRN IV hypotension; Start 01/14/19 at 11:26; Stop 01/14/19 at 17:25; Status DC Albumin Human 200 ml @ 200 mls/hr 1X PRN PRN IV Hypotension; Start 01/14/19 at 11:30; Stop 01/14/19 at 17:29; Status DC Sodium Chloride 1,000 ml @ 400 mls/hr Q2H30M PRN IV PATENCY; Start 01/14/19 at 11:26; Stop 01/14/19 at 23:25; Status DC Info (PHARMACY MONITORING -- do not chart) 1 each PRN DAILY PRN MC SEE COMMENTS; Start 01/14/19 at 11:30; Status UNV Info (PHARMACY MONITORING -- do not chart) 1 each PRN DAILY PRN MC SEE COMMENTS; Start 01/14/19 at 11:30; Status UNV Sodium Chloride 30 meq/Sodium Acetate 40 meq/ Potassium Acetate 30 meq/Calcium Gluconate 10 meq/ Multivitamins 10 ml/Chromium/ Copper/Manganese/ Seleni/Zn 1 ml/ Total Parenteral Nutrition/Amino Acids/Dextrose/ Fat Emulsion Intravenous 1,512 ml @ 63 mls/hr TPN CONT IV Last administered on 01/15/19at 00:05; Start 01/14/19 at 22:00; Stop 01/15/19 at 21:59; Status DC Artificial Tears (Artificial Tears) 1 drop Q4H PRN OU DRY EYE Last administered on 01/14/19at 16:43; Start 01/14/19 at 15:30 Sodium Bicarbonate (Sodium Bicarb Adult 8.4% Syr) 50 meq STK-MED ONCE .ROUTE ; Start 01/15/19 at 08:25; Stop 01/15/19 at 08:25; Status DC Sodium Bicarbonate (Sodium Bicarb Adult 8.4% Syr) 100 meq 1X ONCE IV Last administered on 01/15/19at 08:31; Start 01/15/19 at 08:30; Stop 01/15/19 at 08:31; Status DC Sodium Chloride 40 meq/Sodium Acetate 40 meq/ Potassium Acetate 10 meq/Calcium Gluconate 10 meq/ Multivitamins 10 ml/Chromium/ Copper/Manganese/ Seleni/Zn 1 ml/ Total Parenteral Nutrition/Amino Acids/Dextrose/ Fat Emulsion Intravenous 1,512 ml @ 63 mls/hr TPN CONT IV ; Start 01/15/19 at 22:00; Stop 01/15/19 at 11:06; Status DC Vasopressin 40 unit/Dextrose 102 ml @ 6 mls/hr CONT PRN IV SEE I/O RECORD Last administered on 01/20/19at 19:31; Start 01/15/19 at 10:00 Sodium Chloride 1,000 ml @ 1,000 mls/hr Q1H PRN IV hypotension; Start 01/15/19 at 10:00; Stop 01/15/19 at 15:59; Status DC Albumin Human 200 ml @ 200 mls/hr 1X PRN PRN IV Hypotension Last administered on 01/15/19at 11:07; Start 01/15/19 at 10:00; Stop 01/15/19 at 15:59; Status DC Sodium Chloride 1,000 ml @ 400 mls/hr Q2H30M PRN IV PATENCY; Start 01/15/19 at 10:00; Stop 01/15/19 at 21:59; Status DC Info (PHARMACY MONITORING -- do not chart) 1 each PRN DAILY PRN MC SEE COMMENTS; Start 01/15/19 at 10:00; Stop 01/15/19 at 10:57; Status DC Info (PHARMACY MONITORING -- do not chart) 1 each PRN DAILY PRN MC SEE COMMENTS; Start 01/15/19 at 10:00; Stop 01/15/19 at 10:57; Status DC Sodium Chloride 40 meq/Sodium Acetate 40 meq/ Potassium Acetate 10 meq/Calcium Gluconate 10 meq/ Multivitamins 10 ml/Chromium/ Copper/Manganese/ Seleni/Zn 1 ml/ Thiamine HCl 100 mg/Total Parenteral Nutrition/Amino Acids/Dextrose/ Fat Emulsion Intravenous 1,512 ml @ 63 mls/hr TPN CONT IV ; Start 01/15/19 at 22:00; Stop 01/15/19 at 14:18; Status DC Potassium Chloride 20 meq/ Bicarbonate Dialysis Soln w/ out KCl 5,010 ml @ 1,000 mls/hr Q5H1M IV Last administered on 01/15/19at 15:40; Start 01/15/19 at 14:00; Stop 01/15/19 at 19:00; Status DC Potassium Chloride 20 meq/ Bicarbonate Dialysis Soln w/ out KCl 5,010 ml @ 1,000 mls/hr Q5H1M IV Last administered on 01/15/19at 15:50; Start 01/15/19 at 14:00; Stop 01/15/19 at 19:00; Status DC Potassium Chloride 20 meq/ Bicarbonate Dialysis Soln w/ out KCl 5,010 ml @ 1,000 mls/hr Q5H1M IV Last administered on 01/15/19at 15:50; Start 01/15/19 at 14:00; Stop 01/15/19 at 19:00; Status DC Albumin Human 100 ml @ 100 mls/hr Q6HRS IV Last administered on 01/21/19at 05:51; Start 01/15/19 at 14:00 Potassium Phosphate 20 mmol/ Sodium Chloride 256.6667 ml @ 128.... PRN Q6HRS PRN IV FOR PO4 < 2.5 Last administered on 01/19/19at 21:40; Start 01/15/19 at 14:00 Sodium Chloride 40 meq/Sodium Acetate 40 meq/ Calcium Gluconate 10 meq/ Multivitamins 10 ml/Chromium/ Copper/Manganese/ Seleni/Zn 1 ml/ Thiamine HCl 100 mg/Total Parenteral Nutrition/Amino Acids/Dextrose/ Fat Emulsion Intravenous 1,512 ml @ 63 mls/hr TPN CONT IV Last administered on 01/15/19at 21:45; Start 01/15/19 at 22:00; Stop 01/16/19 at 21:59; Status DC Potassium Chloride 20 meq/ Bicarbonate Dialysis Soln w/ out KCl 5,010 ml @ 500 mls/hr Q10H2M IV Last administered on 01/17/19at 10:43; Start 01/15/19 at 19:01; Stop 01/17/19 at 15:00; Status DC Potassium Chloride 20 meq/ Bicarbonate Dialysis Soln w/ out KCl 5,010 ml @ 1, 200 mls/hr Q4H11M IV Last administered on 01/17/19at 10:36; Start 01/15/19 at 19:01; Stop 01/17/19 at 15:00; Status DC Potassium Chloride 20 meq/ Bicarbonate Dialysis Soln w/ out KCl 5,010 ml @ 1,200 mls/hr Q4H11M IV Last administered on 01/17/19at 00:17; Start 01/15/19 at 19:00; Stop 01/17/19 at 15:00; Status DC Daptomycin 500 mg/ Sodium Chloride 50 ml @ 100 mls/hr Q48H IV Last administered on 01/20/19at 09:16; Start 01/16/19 at 09:00 Sodium Chloride 60 meq/Sodium Acetate 40 meq/ Calcium Gluconate 10 meq/ Multivitamins 10 ml/Chromium/ Copper/Manganese/ Seleni/Zn 1 ml/ Thiamine HCl 100 mg/Total Parenteral Nutrition/Amino Acids/Dextrose/ Fat Emulsion Intravenous 1,512 ml @ 63 mls/hr TPN CONT IV Last administered on 01/16/19at 22:00; Start 01/16/19 at 22:00; Stop 01/18/19 at 10:50; Status DC Sodium Chloride 80 meq/Calcium Gluconate 10 meq/ Multivitamins 10 ml/Chromium/ Copper/Manganese/ Seleni/Zn 1 ml/ Thiamine HCl 100 mg/Total Parenteral Nutrition/Amino Acids/Dextrose/ Fat Emulsion Intravenous 1,512 ml @ 63 mls/hr TPN CONT IV Last administered on 01/17/19at 21:52; Start 01/17/19 at 22:00; Stop 01/18/19 at 21:59; Status DC Potassium Chloride 20 meq/ Sodium Bicarbonate 40 meq/Bicarbonate Dialysis Soln w/ out KCl 5,050 ml @ 500 mls/hr Q10H6M IV Last administered on 01/18/19at 08:17; Start 01/17/19 at 15:00; Stop 01/18/19 at 18:00; Status DC Potassium Chloride 20 meq/ Sodium Bicarbonate 40 meq/Bicarbonate Dialysis Soln w/ out KCl 5,050 ml @ 1,200 mls/hr Q4H13M IV Last administered on 01/18/19at 06:01; Start 01/17/19 at 15:00; Stop 01/18/19 at 09:51; Status DC Potassium Chloride 20 meq/ Sodium Bicarbonate 40 meq/Bicarbonate Dialysis Soln w/ out KCl 5,050 ml @ 1,200 mls/hr Q4H13M IV Last administered on 01/18/19at 06:01; Start 01/17/19 at 15:00; Stop 01/18/19 at 09:51; Status DC Potassium Phosphate 20 mmol/ Sodium Chloride 256.6667 ml @ 128.... ONCE ONCE IV Last administered on 01/17/19at 18:21; Start 01/17/19 at 17:45; Stop 01/17/19 at 19:44; Status DC Calcium Chloride 12.5 meq/ Magnesium Sulfate 2.5 meq/Potassium Chloride 10 meq/ Sodium Bicarbonate 40 meq/Bicarbonate Dialysis Soln w/ out KCl 5,054.5443 ml @ 1,200 mls/hr Q4H13M IV Last administered on 01/19/19at 03:20; Start 01/18/19 at 10:00; Stop 01/19/19 at 07:47; Status DC Calcium Chloride 12.5 meq/ Magnesium Sulfate 2.5 meq/Potassium Chloride 10 meq/ Sodium Bicarbonate 40 meq/Bicarbonate Dialysis Soln w/ out KCl 5,054.5443 ml @ 1,200 mls/hr Q4H13M IV Last administered on 01/19/19at 03:21; Start 01/18/19 at 10:00; Stop 01/19/19 at 07:47; Status DC Calcium Chloride 12.5 meq/ Magnesium Sulfate 2.5 meq/Potassium Chloride 10 meq/ Sodium Bicarbonate 40 meq/Bicarbonate Dialysis Soln w/ out KCl 5,054.5443 ml @ 500 mls/hr Q10H7M IV Last administered on 01/19/19at 05:16; Start 01/18/19 at 18:00; Stop 01/19/19 at 07:48; Status DC Meropenem 500 mg/ Sodium Chloride 50 ml @ 100 mls/hr Q8HRS IV Last administered on 01/19/19at 06:02; Start 01/18/19 at 14:00; Stop 01/19/19 at 09:24; Status DC Sodium Chloride 80 meq/Calcium Gluconate 10 meq/ Multivitamins 10 ml/Chromium/ Copper/Manganese/ Seleni/Zn 1 ml/ Thiamine HCl 100 mg/Total Parenteral Nutrition/Amino Acids/Dextrose/ Fat Emulsion Intravenous 1,512 ml @ 63 mls/hr TPN CONT IV Last administered on 01/18/19at 21:37; Start 01/18/19 at 22:00; S top 01/19/19 at 21:59; Status DC Epinephrine HCl 4 mg/Sodium Chloride 254 ml @ 41.822 mls/ hr CONT PRN IV SEE I/O RECORD; Start 01/18/19 at 16:15; Stop 01/19/19 at 18:00; Status DC Methylprednisolone Sodium Succinate (SOLU-Medrol 125MG VIAL) 125 mg 1X ONCE IV Last administered on 01/18/19at 16:30; Start 01/18/19 at 16:30; Stop 01/18/19 at 16:31; Status DC Methylprednisolone Sodium Succinate (SOLU-Medrol 125MG VIAL) 125 mg STK-MED ONCE .ROUTE ; Start 01/18/19 at 16:26; Stop 01/18/19 at 16:26; Status DC Calcium Chloride 12.5 meq/ Potassium Chloride 5 meq/ Sodium Bicarbonate 40 meq/Bicarbonate Dialysis Soln w/ out KCl 5,051.4286 ml @ 1,200 mls/hr Q4H13M IV Last administered on 01/20/19at 11:31; Start 01/19/19 at 08:00; Stop 01/20/19 at 11:30; Status DC Calcium Chloride 12.5 meq/ Potassium Chloride 5 meq/ Sodium Bicarbonate 40 meq/Bicarbonate Dialysis Soln w/ out KCl 5,051.4286 ml @ 1,200 mls/hr Q4H13M IV Last administered on 01/20/19at 11:30; Start 01/19/19 at 08:00; Stop 01/20/19 at 11:30; Status DC Calcium Chloride 12.5 meq/ Potassium Chloride 5 meq/ Sodium Bicarbonate 40 meq/Bicarbonate Dialysis Soln w/ out KCl 5,051.4286 ml @ 500 mls/hr Q10H7M IV Last administered on 01/20/19at 03:09; Start 01/19/19 at 15:00; Stop 01/20/19 at 11:30; Status DC Meropenem 1 gm/ Sodium Chloride 100 ml @ 200 mls/hr Q12H IV Last administered on 01/19/19at 14:36; Start 01/19/19 at 14:00; Stop 01/19/19 at 16:00; Status DC Albumin Human 100 ml @ As Directed STK-MED ONCE IV ; Start 01/19/19 at 10:44; Stop 01/19/19 at 10:44; Status DC Norepinephrine Bitartrate 32 mg/ Sodium Chloride 250 ml @ 7 mls/hr CONT PRN IV SEE I/O RECORD Last administered on 01/19/19at 14:15; Start 01/19/19 at 11:30 Sodium Chloride 80 meq/Calcium Gluconate 10 meq/ Multivitamins 10 ml/Chromium/ Copper/Manganese/ Seleni/Zn 1 ml/ Thiamine HCl 100 mg/Total Parenteral Nutrition/Amino Acids/Dextrose/ Fat Emulsion Intravenous 1,200 ml @ 50 mls/hr TPN CONT IV Last administered on 01/19/19at 21:30; Start 01/19/19 at 22:00; Stop 01/20/19 at 21:59; Status DC Epinephrine HCl 8 mg/Sodium Chloride 258 ml @ 20.9 mls/hr CONT PRN IV SEE I/O RECORD; Start 01/19/19 at 14:15 Meropenem 1 gm/ Sodium Chloride 50 ml @ 100 mls/hr Q12H IV Last administered on 01/21/19at 01:56; Start 01/20/19 at 02:00 Albumin Human 100 ml @ As Directed STK-MED ONCE IV ; Start 01/19/19 at 17:00; Stop 01/19/19 at 17:00; Status DC Potassium Phosphate 20 mmol/ Sodium Chloride 256.6667 ml @ 128.... 1X ONCE IV Last administered on 01/20/19at 06:19; Start 01/20/19 at 06:15; Stop 01/20/19 at 08:14; Status DC Phytonadione 10 mg/Dextrose 51 ml @ 102 mls/hr 1X ONCE IV Last administered on 01/20/19at 11:07; Start 01/20/19 at 10:45; Stop 01/20/19 at 11:14; Status DC Calcium Chloride 12.5 meq/ Potassium Chloride 5 meq/ Bicarbonate Dialysis Soln w/ out KCl 5,011.4286 ml @ 1,200 mls/hr Q4H11M IV Last administered on 01/21/19at 09:54; Start 01/20/19 at 11:00 Calcium Chloride 12.5 meq/ Potassium Chloride 5 meq/ Bicarbonate Dialysis Soln w/ out KCl 5,011.4286 ml @ 1,200 mls/hr Q4H11M IV ; Start 01/20/19 at 11:30; Stop 01/20/19 at 10:31; Status DC Calcium Chloride 12.5 meq/ Potassium Chloride 5 meq/ Bicarbonate Dialysis Soln w/ out KCl 5,011.4286 ml @ 1,200 mls/hr Q4H11M IV Last administered on 01/21/19at 09:53; Start 01/20/19 at 10:30 Calcium Chloride 12.5 meq/ Potassium Chloride 5 meq/ Bicarbonate Dialysis Soln w/ out KCl 5,011.4286 ml @ 500 mls/hr Q10H2M IV Last administered on 01/20/19at 19:25; Start 01/20/19 at 11:30 Sodium Chloride 80 meq/Calcium Gluconate 20 meq/ Multivitamins 10 ml/Chromium/ Copper/Manganese/ Seleni/Zn 1 ml/ Thiamine HCl 100 mg/Total Parenteral Nutrition/Amino Acids/Dextrose/ Fat Emulsion Intravenous 1,200 ml @ 50 mls/hr TPN CONT IV Last administered on 01/20/19at 21:43; Start 01/20/19 at 22:00; Stop 01/21/19 at 21:59 Potassium Phosphate 40 mmol/ Sodium Chloride 263.3333 ml @ 62.5 mls/hr 1X ONCE IV Last administered on 01/20/19at 16:03; Start 01/20/19 at 16:00; Stop 01/20/19 at 20:12; Status DC Sodium Phosphate 40 mmol/Dextrose 263.3333 ml @ 62.5 mls/hr 1X ONCE IV Last administered on 01/21/19at 09:26; Start 01/21/19 at 09:00; Stop 01/21/19 at 13:12 Vitals/I & O Vital Sign - Last 24 Hours 01/20/19 01/20/19 01/20/19 01/20/19 10:16 11:00 11:35 12:00 Temp 98.6 98.6 Pulse 93 97 Resp 24 24 B/P (MAP) 106/49 (68) 139/59 (85) Pulse Ox 97 97 96 100 O2 Delivery Ventilator Ventilator Ventilator O2 Flow Rate 2.0 01/20/19 01/20/19 01/20/19 01/20/19 12:00 13:00 13:25 14:00 Pulse 94 94 Resp 24 24 B/P (MAP) 122/55 (77) 116/61 (79) Pulse Ox 97 96 98 O2 Delivery Mechanical Ventilator Ventilator Ventilator Ventilator 01/20/19 01/20/19 01/20/19 01/20/19 15:00 15:09 15:17 15:39 Pulse 95 Resp 24 B/P (MAP) 118/58 (78) Pulse Ox 100 96 96 100 O2 Delivery Ventilator Ventilator O2 Flow Rate 2.0 2.0 01/20/19 01/20/19 01/20/19 01/20/19 16:00 16:00 17:00 17:11 Temp 99.0 99.0 Pulse 93 94 Resp 24 24 B/P (MAP) 113/54 (73) 119/65 (83) Pulse Ox 100 100 96 O2 Delivery Mechanical Ventilator Ventilator Ventilator Ventilator 01/20/19 01/20/19 01/20/19 01/20/19 18:00 19:00 20:00 20:00 Temp 98.3 98.3 Pulse 90 86 84 Resp 24 24 24 B/P (MAP) 108/61 (77) 109/59 (76) 109/53 (71) Pulse Ox 100 100 100 O2 Delivery Ventilator Ventilator Ventilator Mechanical Ventilator 01/20/19 01/20/19 01/20/19 01/20/19 20:02 20:39 21:00 21:09 Pulse 88 Resp 24 B/P (MAP) 157/80 (105) Pulse Ox 100 100 100 100 O2 Delivery Ventilator Ventilator Ventilator Ventilator 01/20/19 01/20/19 01/20/19 01/20/19 21:25 22:00 23:00 23:47 Pulse 88 79 Resp 24 24 B/P (MAP) 135/70 (91) 110/59 (76) Pulse Ox 100 100 100 100 O2 Delivery Ventilator Ventilator Ventilator Ventilator 01/20/19 01/21/19 01/21/19 01/21/19 23:59 00:00 01:00 01:43 Temp 98.6 98.6 Pulse 78 74 Resp 24 24 B/P (MAP) 93/50 (64) 101/54 (70) Pulse Ox 100 100 100 O2 Delivery Mechanical Ventilator Ventilator Ventilator Ventilator 01/21/19 01/21/19 01/21/19 01/21/19 02:00 03:00 03:01 03:04 Pulse 74 74 Resp 24 24 B/P (MAP) 96/43 (60) 93/46 (62) Pulse Ox 100 100 100 100 O2 Delivery Ventilator Ventilator Ventilator Ventilator 01/21/19 01/21/19 01/21/19 01/21/19 03:34 04:00 04:00 05:00 Temp 97.8 97.8 Pulse 74 74 Resp 24 24 B/P (MAP) 110/45 (66) 114/44 (67) Pulse Ox 100 100 100 O2 Delivery Ventilator Mechanical Ventilator Ventilator Ventilator 01/21/19 01/21/19 01/21/19 01/21/19 05:30 06:00 07:00 07:41 Pulse 75 76 Resp 24 24 B/P (MAP) 112/48 (69) 134/57 (82) Pulse Ox 100 100 100 100 O2 Delivery Ventilator Ventilator Ventilator Ventilator 01/21/19 01/21/19 01/21/19 01/21/19 08:00 08:00 09:00 09:23 Temp 97.4 97.4 Pulse 84 78 Resp 24 24 24 B/P (MAP) 179/84 (115) 126/58 (80) Pulse Ox 100 100 100 O2 Delivery Mechanical Ventilator Ventilator Ventilator Ventilator Intake and Output 01/20/19 01/20/19 01/21/19 15:00 23:00 07:00 Intake Total 286 ml 1694 ml 1322.5 ml Output Total 0 ml 0 ml 0 ml Balance 286 ml 1694 ml 1322.5 ml MAIK GUNN MD Jan 21, 2019 10:11
[2019-01-21] MEDS: IV NORMAL SALINE 1000ML BAG 1,000 ML IV SCH (11:05)
--- NOTE | 2019-01-21 11:38 | PDOC ---
G I PROGRESS NOTE Subjective Sedated on ventilator. Physical Exam Lungs with some coarse sounds. RRR Abdomen distended, not taut. Hear no good bowel sounds. Jaundiced. Review of Relevant I have reviewed the following items karen (where applicable) has been applied. Labs Laboratory Tests Test 01/19/19 12:52 01/19/19 17:19 01/19/19 20:45 01/20/19 05:15 Platelet Count 28 x10^3/uL (140-400) 24 x10^3/uL (140-400) Prothrombin Time 24.4 SEC (11.7-14.0) 22.0 SEC (11.7-14.0) Prothromb Time International Ratio 2.2 (0.8-1.1) 2.0 (0.8-1.1) Activated Partial Thromboplast Time 36 SEC (24-38) Fibrinogen 112 mg/dL (200-440) D-Dimer (Yudi) > 20.00 ug/mlFEU Sodium Level 142 mmol/L (136-145) 142 mmol/L (136-145) 142 mmol/L (136-145) Potassium Level 4.2 mmol/L (3.5-5.1) 4.2 mmol/L (3.5-5.1) 4.1 mmol/L (3.5-5.1) Chloride Level 102 mmol/L (98-107) 103 mmol/L (98-107) 103 mmol/L (98-107) Carbon Dioxide Level 27 mmol/L (21-32) 28 mmol/L (21-32) 29 mmol/L (21-32) Anion Gap 13 (6-14) 11 (6-14) 10 (6-14) Blood Urea Nitrogen 32 mg/dL (8-26) 32 mg/dL (8-26) 39 mg/dL (8-26) Creatinine 1.3 mg/dL (0.7-1.3) 1.2 mg/dL (0.7-1.3) 1.3 mg/dL (0.7-1.3) Estimated GFR (Cockcroft-Gault) 61.8 67.8 61.8 Glucose Level 202 mg/dL (70-99) 164 mg/dL (70-99) 178 mg/dL (70-99) Lactic Acid Level 8.2 mmol/L (0.4-2.0) 5.9 mmol/L (0.4-2.0) Calcium Level 7.2 mg/dL (8.5-10.1) 7.2 mg/dL (8.5-10.1) 7.1 mg/dL (8.5-10.1) Phosphorus Level 1.9 mg/dL (2.6-4.7) 1.7 mg/dL (2.6-4.7) 1.5 mg/dL (2.6-4.7) Magnesium Level 2.1 mg/dL (1.8-2.4) 2.0 mg/dL (1.8-2.4) 1.9 mg/dL (1.8-2.4) Glucose (Fingerstick) 169 mg/dL (70-99) White Blood Count 12.0 x10^3/uL (4.0-11.0) Red Blood Count 2.15 x10^6/uL (4.30-5.70) Hemoglobin 7.2 g/dL (13.0-17.5) Hematocrit 20.8 % (39.0-53.0) Mean Corpuscular Volume 97 fL (79-100) Mean Corpuscular Hemoglobin 33 pg (25-35) Mean Corpuscular Hemoglobin Concent 35 g/dL (31-37) Red Cell Distribution Width 20.5 % (11.5-14.5) Neutrophils (%) (Auto) 82 % (31-73) Lymphocytes (%) (Auto) 11 % (24-48) Monocytes (%) (Auto) 6 % (0-9) Eosinophils (%) (Auto) 0 % (0-3) Basophils (%) (Auto) 1 % (0-3) Neutrophils # (Auto) 9.8 x10^3/uL (1.8-7.7) Lymphocytes # (Auto) 1.4 x10^3/uL (1.0-4.8) Monocytes # (Auto) 0.8 x10^3/uL (0.0-1.1) Eosinophils # (Auto) 0.0 x10^3/uL (0.0-0.7) Basophils # (Auto) 0.1 x10^3/uL (0.0-0.2) BUN/Creatinine Ratio 30 (6-20) Total Bilirubin 16.2 mg/dL (0.2-1.0) Aspartate Amino Transf (AST/SGOT) 250 U/L (15-37) Alanine Aminotransferase (ALT/SGPT) 75 U/L (16-63) Alkaline Phosphatase 203 U/L (46-116) Total Protein 6.1 g/dL (6.4-8.2) Albumin 3.4 g/dL (3.4-5.0) Albumin/Globulin Ratio 1.3 (1.0-1.7) Test 01/20/19 07:53 01/20/19 09:03 01/20/19 13:07 01/20/19 15:04 O2 Saturation 90 % (92-99) Arterial Blood pH 7.41 (7.35-7.45) Arterial Blood pCO2 at Patient Temp 40 mmHg (35-46) Arterial Blood pO2 at Patient Temp 58 mmHg (85-108) Arterial Blood HCO3 25 mmol/L (21-28) Arterial Blood Base Excess 0 mmol/L (-3-3) FiO2 100 Fibrinogen 90 mg/dL (200-440) 111 mg/dL (200-440) Lactic Acid Level 5.5 mmol/L (0.4-2.0) Sodium Level 143 mmol/L (136-145) Potassium Level 4.0 mmol/L (3.5-5.1) Chloride Level 102 mmol/L (98-107) Carbon Dioxide Level 29 mmol/L (21-32) Anion Gap 12 (6-14) Blood Urea Nitrogen 41 mg/dL (8-26) Creatinine 1.3 mg/dL (0.7-1.3) Estimated GFR (Cockcroft-Gault) 61.8 Glucose Level 168 mg/dL (70-99) Calcium Level 7.2 mg/dL (8.5-10.1) Phosphorus Level 1.3 mg/dL (2.6-4.7) Magnesium Level 1.8 mg/dL (1.8-2.4) Test 01/20/19 17:16 01/20/19 21:00 01/21/19 05:00 01/21/19 07:50 Glucose (Fingerstick) 154 mg/dL (70-99) Activated Partial Thromboplast Time 36 SEC (24-38) Sodium Level 142 mmol/L (136-145) 140 mmol/L (136-145) Potassium Level 4.3 mmol/L (3.5-5.1) 3.7 mmol/L (3.5-5.1) Chloride Level 102 mmol/L (98-107) 102 mmol/L (98-107) Carbon Dioxide Level 28 mmol/L (21-32) 27 mmol/L (21-32) Anion Gap 12 (6-14) 11 (6-14) Blood Urea Nitrogen 46 mg/dL (8-26) 44 mg/dL (8-26) Creatinine 1.2 mg/dL (0.7-1.3) 1.2 mg/dL (0.7-1.3) Estimated GFR (Cockcroft-Gault) 67.8 67.8 Glucose Level 165 mg/dL (70-99) 186 mg/dL (70-99) Lactic Acid Level 3.3 mmol/L (0.4-2.0) Calcium Level 7.4 mg/dL (8.5-10.1) 7.6 mg/dL (8.5-10.1) Phosphorus Level 2.7 mg/dL (2.6-4.7) 1.9 mg/dL (2.6-4.7) Magnesium Level 1.9 mg/dL (1.8-2.4) 1.8 mg/dL (1.8-2.4) Iron Level 84 ug/dL (65-175) Total Iron Binding Capacity 69 ug/dL (250-450) Iron Saturation % (15-34) Ferritin 605 ng/mL (26-388) White Blood Count 11.9 x10^3/uL (4.0-11.0) Red Blood Count 2.06 x10^6/uL (4.30-5.70) Hemoglobin 6.8 g/dL (13.0-17.5) Hematocrit 19.8 % (39.0-53.0) Mean Corpuscular Volume 96 fL (79-100) Mean Corpuscular Hemoglobin 33 pg (25-35) Mean Corpuscular Hemoglobin Concent 34 g/dL (31-37) Red Cell Distribution Width 18.8 % (11.5-14.5) Platelet Count 27 x10^3/uL (140-400) Neutrophils (%) (Auto) 73 % (31-73) Lymphocytes (%) (Auto) 17 % (24-48) Monocytes (%) (Auto) 9 % (0-9) Eosinophils (%) (Auto) 0 % (0-3) Basophils (%) (Auto) 1 % (0-3) Neutrophils # (Auto) 8.7 x10^3/uL (1.8-7.7) Lymphocytes # (Auto) 2.0 x10^3/uL (1.0-4.8) Monocytes # (Auto) 1.1 x10^3/uL (0.0-1.1) Eosinophils # (Auto) 0.0 x10^3/uL (0.0-0.7) Basophils # (Auto) 0.1 x10^3/uL (0.0-0.2) Prothrombin Time 21.6 SEC (11.7-14.0) Prothromb Time International Ratio 1.9 (0.8-1.1) BUN/Creatinine Ratio 37 (6-20) Total Bilirubin 19.1 mg/dL (0.2-1.0) Aspartate Amino Transf (AST/SGOT) 178 U/L (15-37) Alanine Aminotransferase (ALT/SGPT) 58 U/L (16-63) Alkaline Phosphatase 226 U/L (46-116) Total Protein 6.2 g/dL (6.4-8.2) Albumin 3.6 g/dL (3.4-5.0) Albumin/Globulin Ratio 1.4 (1.0-1.7) O2 Saturation 98 % (92-99) Arterial Blood pH 7.39 (7.35-7.45) Arterial Blood pCO2 at Patient Temp 41 mmHg (35-46) Arterial Blood pO2 at Patient Temp 109 mmHg (85-108) Arterial Blood HCO3 24 mmol/L (21-28) Arterial Blood Base Excess -1 mmol/L (-3-3) FiO2 100 Test 01/21/19 09:00 Lactic Acid Level 3.6 mmol/L (0.4-2.0) Laboratory Tests Test 01/20/19 13:07 01/20/19 15:04 01/20/19 17:16 01/20/19 21:00 Sodium Level 143 mmol/L (136-145) 142 mmol/L (136-145) Potassium Level 4.0 mmol/L (3.5-5.1) 4.3 mmol/L (3.5-5.1) Chloride Level 102 mmol/L (98-107) 102 mmol/L (98-107) Carbon Dioxide Level 29 mmol/L (21-32) 28 mmol/L (21-32) Anion Gap 12 (6-14) 12 (6-14) Blood Urea Nitrogen 41 mg/dL (8-26) 46 mg/dL (8-26) Creatinine 1.3 mg/dL (0.7-1.3) 1.2 mg/dL (0.7-1.3) Estimated GFR (Cockcroft-Gault) 61.8 67.8 Glucose Level 168 mg/dL (70-99) 165 mg/dL (70-99) Calcium Level 7.2 mg/dL (8.5-10.1) 7.4 mg/dL (8.5-10.1) Phosphorus Level 1.3 mg/dL (2.6-4.7) 2.7 mg/dL (2.6-4.7) Magnesium Level 1.8 mg/dL (1.8-2.4) 1.9 mg/dL (1.8-2.4) Fibrinogen 111 mg/dL (200-440) Glucose (Fingerstick) 154 mg/dL (70-99) Activated Partial Thromboplast Time 36 SEC (24-38) Lactic Acid Level 3.3 mmol/L (0.4-2.0) Iron Level 84 ug/dL (65-175) Total Iron Binding Capacity 69 ug/dL (250-450) Iron Saturation % (15-34) Ferritin 605 ng/mL (26-388) Test 01/21/19 05:00 01/21/19 07:50 01/21/19 09:00 White Blood Count 11.9 x10^3/uL (4.0-11.0) Red Blood Count 2.06 x10^6/uL (4.30-5.70) Hemoglobin 6.8 g/dL (13.0-17.5) Hematocrit 19.8 % (39.0-53.0) Mean Corpuscular Volume 96 fL (79-100) Mean Corpuscular Hemoglobin 33 pg (25-35) Mean Corpuscular Hemoglobin Concent 34 g/dL (31-37) Red Cell Distribution Width 18.8 % (11.5-14.5) Platelet Count 27 x10^3/uL (140-400) Neutrophils (%) (Auto) 73 % (31-73) Lymphocytes (%) (Auto) 17 % (24-48) Monocytes (%) (Auto) 9 % (0-9) Eosinophils (%) (Auto) 0 % (0-3) Basophils (%) (Auto) 1 % (0-3) Neutrophils # (Auto) 8.7 x10^3/uL (1.8-7.7) Lymphocytes # (Auto) 2.0 x10^3/uL (1.0-4.8) Monocytes # (Auto) 1.1 x10^3/uL (0.0-1.1) Eosinophils # (Auto) 0.0 x10^3/uL (0.0-0.7) Basophils # (Auto) 0.1 x10^3/uL (0.0-0.2) Prothrombin Time 21.6 SEC (11.7-14.0) Prothromb Time International Ratio 1.9 (0.8-1.1) Sodium Level 140 mmol/L (136-145) Potassium Level 3.7 mmol/L (3.5-5.1) Chloride Level 102 mmol/L (98-107) Carbon Dioxide Level 27 mmol/L (21-32) Anion Gap 11 (6-14) Blood Urea Nitrogen 44 mg/dL (8-26) Creatinine 1.2 mg/dL (0.7-1.3) Estimated GFR (Cockcroft-Gault) 67.8 BUN/Creatinine Ratio 37 (6-20) Glucose Level 186 mg/dL (70-99) Calcium Level 7.6 mg/dL (8.5-10.1) Phosphorus Level 1.9 mg/dL (2.6-4.7) Magnesium Level 1.8 mg/dL (1.8-2.4) Total Bilirubin 19.1 mg/dL (0.2-1.0) Aspartate Amino Transf (AST/SGOT) 178 U/L (15-37) Alanine Aminotransferase (ALT/SGPT) 58 U/L (16-63) Alkaline Phosphatase 226 U/L (46-116) Total Protein 6.2 g/dL (6.4-8.2) Albumin 3.6 g/dL (3.4-5.0) Albumin/Globulin Ratio 1.4 (1.0-1.7) O2 Saturation 98 % (92-99) Arterial Blood pH 7.39 (7.35-7.45) Arterial Blood pCO2 at Patient Temp 41 mmHg (35-46) Arterial Blood pO2 at Patient Temp 109 mmHg (85-108) Arterial Blood HCO3 24 mmol/L (21-28) Arterial Blood Base Excess -1 mmol/L (-3-3) FiO2 100 Lactic Acid Level 3.6 mmol/L (0.4-2.0) Microbiology 01/15/19 - Final, Complete 01/15/19 - Final, Complete 01/15/19 - Final, Complete 01/15/19 Gram Stain Evaluation - Final, Complete 01/15/19 Sputum Culture - Final, Complete 01/15/19 Sputum Result 1 - Final, Complete 01/14/19 Blood Culture - Final, Complete NO GROWTH AFTER 5 DAYS 01/08/19 Urine Culture - Final, Complete 01/08/19 Urine Culture Result 1 (ELMA) - Final, Complete pO2 some better; still on high PEEP. Vitals/I & O Vital Sign - Last 24 Hours 01/20/19 01/20/19 01/20/19 01/20/19 11:35 12:00 12:00 13:00 Temp 98.6 98.6 Pulse 97 94 Resp 24 24 B/P (MAP) 139/59 (85) 122/55 (77) Pulse Ox 96 100 97 O2 Delivery Ventilator Ventilator Mechanical Ventilator Ventilator 01/20/19 01/20/19 01/20/19 01/20/19 13:25 14:00 15:00 15:09 Pulse 94 95 Resp 24 24 B/P (MAP) 116/61 (79) 118/58 (78) Pulse Ox 96 98 100 96 O2 Delivery Ventilator Ventilator Ventilator O2 Flow Rate 2.0 01/20/19 01/20/19 01/20/19 01/20/19 15:17 15:39 16:00 16:00 Temp 99.0 99.0 Pulse 93 Resp 24 B/P (MAP) 113/54 (73) Pulse Ox 96 100 100 O2 Delivery Ventilator Mechanical Ventilator Ventilator O2 Flow Rate 2.0 01/20/19 01/20/19 01/20/19 01/20/19 17:00 17:11 18:00 19:00 Temp 98.3 98.3 Pulse 94 90 86 Resp 24 24 24 B/P (MAP) 119/65 (83) 108/61 (77) 109/59 (76) Pulse Ox 100 96 100 100 O2 Delivery Ventilator Ventilator Ventilator Ventilator 01/20/19 01/20/19 01/20/19 01/20/19 20:00 20:00 20:02 20:39 Pulse 84 Resp 24 B/P (MAP) 109/53 (71) Pulse Ox 100 100 100 O2 Delivery Ventilator Mechanical Ventilator Ventilator Ventilator 01/20/19 01/20/19 01/20/19 01/20/19 21:00 21:09 21:25 22:00 Pulse 88 88 Resp 24 24 B/P (MAP) 157/80 (105) 135/70 (91) Pulse Ox 100 100 100 100 O2 Delivery Ventilator Ventilator Ventilator Ventilator 01/20/19 01/20/19 01/20/19 01/21/19 23:00 23:47 23:59 00:00 Temp 98.6 98.6 Pulse 79 78 Resp 24 24 B/P (MAP) 110/59 (76) 93/50 (64) Pulse Ox 100 100 100 O2 Delivery Ventilator Ventilator Mechanical Ventilator Ventilator 01/21/19 01/21/19 01/21/19 01/21/19 01:00 01:43 02:00 03:00 Pulse 74 74 74 Resp 24 24 24 B/P (MAP) 101/54 (70) 96/43 (60) 93/46 (62) Pulse Ox 100 100 100 100 O2 Delivery Ventilator Ventilator Ventilator Ventilator 01/21/19 01/21/19 01/21/19 01/21/19 03:01 03:04 03:34 04:00 Pulse Ox 100 100 100 O2 Delivery Ventilator Ventilator Ventilator Mechanical Ventilator 01/21/19 01/21/19 01/21/19 01/21/19 04:00 05:00 05:30 06:00 Temp 97.8 97.8 Pulse 74 74 75 Resp 24 24 24 B/P (MAP) 110/45 (66) 114/44 (67) 112/48 (69) Pulse Ox 100 100 100 100 O2 Delivery Ventilator Ventilator Ventilator Ventilator 01/21/19 01/21/19 01/21/19 01/21/19 07:00 07:41 08:00 08:00 Temp 97.4 97.4 Pulse 76 84 Resp 24 24 B/P (MAP) 134/57 (82) 179/84 (115) Pulse Ox 100 100 100 O2 Delivery Ventilator Ventilator Mechanical Ventilator Ventilator 01/21/19 01/21/19 01/21/19 01/21/19 09:00 09:23 10:00 10:16 Pulse 78 75 Resp 24 24 24 24 B/P (MAP) 126/58 (80) 125/49 (74) Pulse Ox 100 100 100 100 O2 Delivery Ventilator Ventilator Ventilator Ventilator 01/21/19 11:00 Pulse 76 Resp 24 B/P (MAP) 135/59 (84) Pulse Ox 100 O2 Delivery Ventilator Intake and Output 01/20/19 01/20/19 01/21/19 15:00 23:00 07:00 Intake Total 286 ml 1694 ml 1322.5 ml Output Total 0 ml 0 ml 0 ml Balance 286 ml 1694 ml 1322.5 ml Problem List Problems Medical Problems: (1) Acute hepatic encephalopathy Status: Acute (2) Acute upper GI bleed Status: Acute (3) Ascites Status: Acute (4) Hypokalemia Status: Acute (5) Multiple organ system failure Status: Acute (6) Severe sepsis with acute organ dysfunction Status: Acute Assessment Alcoholic hepatitis ARDS ARF "Compensated" DIC? Ileus. Persistent lactic acid elevation from high PEEP/effect on venous return/cardiac output? Plan of Care: Continue current Tx, Mgmt Plan of Care Note Await resolution of ileus, other issues. ANA MCKEON MD Jan 21, 2019 11:38
[2019-01-21 13:06] LABS: CALCIUM 7.7 mg/dL (8.5-10.1); CREATININE 1.2 mg/dL (0.7-1.3); GFR 67.8; POTASSIUM 3.5 mmol/L (3.5-5.1)
[2019-01-21] MEDS: TPN PER PHARMACY MC PRN ×2 (13:09→13:27)
--- NOTE | 2019-01-21 13:40 | NUR ---
Pharmacy TPN Dosing Note S: ULI CARRIZALES is a 38 year old M Currently receiving Central Continuous TPN started 01/13/19 B:Pertinent PMH: Ileus, high residuals with tube feeding Height: 5 feet, 7 inches Weight: 112.052539 kg Current diet: NPO LABS: Sodium: 140 Potassium: 3.7 Chloride: 102 Calcium: 7.6 Corrected Calcium: 7.92 Magnesium: 1.9 CO2: 27 SCr: 1.2 Glucose: 186 Albumin: 3.6 AST: 178 ALT: 58 TPN FORMULA: TPN TYPE: Central Continuous AMINO ACIDS: 135 gm DEXTROSE: 225 gm LIPIDS: 30 gm SODIUM CHLORIDE: 80 mEq SODIUM ACETATE: - mEq SODIUM PHOSPHATE: - mmol POTASSIUM CHLORIDE: - mEq POTASSIUM ACETATE: - mEq POTASSIUM PHOSPHATE: - mmol MAGNESIUM: - mEq CALCIUM: 25 mEq INSULIN: - units MULTIPLE VITAMIN: 10 ml TRACE ELEMENTS: 1 ml(s) TPN PLAN: Macro increases per dietary rec. Increased calcium in TPN, 20 to 25 meq for persistent low Ca. Phos low and bolus given per nephrology. Other lytes managed by nephrology. Labs in AM, including trig per dietary rec. R: Continue TPN ABOVE. Will monitor electrolytes, glucose, and tolerance to TPN. JEVON RAZO [facility] [place], 01/21/19 1349
--- NOTE | 2019-01-21 14:46 | NUR ---
SS following up with discharge planning. SS met with pt's spouse and mother on 01/20/2019 and both spouse and mother reported that they wanted to continue full aggressive care and Full Code. Pt's spouse requested information on Legal Services to help with disability application and DPOA. SS met with pt's spouse today and provided her with information for [employer]. SS phoned and faxed clinical updates to [facility], ; fax [phone]. SS will continue to follow for discharge planning.
[2019-01-21 15:52] LABS: NEUT % 73 % (31-73)
[2019-01-21 15:55] LABS: HEMATOCRIT 23.1 % (39.0-53.0); HEMOGLOBIN 7.9 g/dL (13.0-17.5)
[2019-01-21 16:04] LABS: MAGNESIUM 1.7 mg/dL (1.8-2.4); PHOSPHORUS 2.5 mg/dL (2.6-4.7)
[2019-01-21] MEDS ORDERED: MAGNESIUM SULFATE 2GM 50 ML IV ONE (16:30)
[2019-01-21] MEDS: VECURONIUM BOLUS 10 MG VIAL. IV PRN (17:28)
[2019-01-21 21:16] LABS: CREATININE 1.3 mg/dL (0.7-1.3); GFR 61.8; PHOSPHORUS 1.5 mg/dL (2.6-4.7); POTASSIUM 3.6 mmol/L (3.5-5.1)
[2019-01-21] MEDS ORDERED: POTASSIUM PHOSPHATE DIBASIC 40 MMOL in IV NORMAL SALINE 250ML 250 ML IV ONE (21:45)
[2019-01-21] MEDS ORDERED: [UNRECOGNIZED DRUG - OTHER] IV SCH ×8 (22:00)
[2019-01-21] MEDS ORDERED: TOTAL PARENTERAL NUTRITION IV SCH ×8 (22:00)
[2019-01-21] MEDS ORDERED: AMINO ACID IV SCH ×8 (22:00)
[2019-01-21] MEDS ORDERED: DEXTROSE 70% IV SCH ×8 (22:00)
[2019-01-22] VITALS (24 sets, daily range): BP systolic 82–166; BP diastolic 36–75
--- NOTE | 2019-01-22 01:00 | NUR ---
At 0000 pts bottom sheet was saturated in fluid. The pts vital signs at this time were HR of 102, BP 95/52, and 02 sat 100%. At this time we decided to change the Patients bottom sheet with minimal turning. During the time it took to turn the pt and change the sheet the pts heart rate dropped to 48bpm and oxygen saturation dropped to 84%. The pt was then put on his back and sat up to 35 degrees. At this time his HR was still in the 40's and BP was 162/85. After 1 minute the pts HR stayed steady at 95 SR, BP 125/55, and O2 sat 94%. Will continue with do not turn order due to instability of pt. Patient currently stable will continue to monitor.
[2019-01-22] MEDS: VECURONIUM BOLUS 10 MG VIAL. IV PRN ×3 (01:19→23:27)
[2019-01-22] MEDS: DEXMEDETOMIDINE 400 MCG in IV NORMAL SALINE 100ML 96 ML IV PRN ×7 (01:20→22:01)
[2019-01-22] MEDS: NORMAL SALINE IV SCH ×2 (02:16→13:47)
[2019-01-22] MEDS: MEROPENEM IV SCH ×2 (02:16→13:47)
[2019-01-22] MEDS: POTASSIUM CHLORIDE IV SCH ×10 (03:14→16:26)
[2019-01-22] MEDS: CALCIUM CHLORIDE IV SCH ×10 (03:14→16:26)
[2019-01-22] MEDS: [UNRECOGNIZED DRUG - OTHER] IV SCH ×10 (03:14→16:26)
[2019-01-22 05:24] LABS: BASO # 0.1 x10^3/uL (0.0-0.2); BASO % 0 % (0-3); EOS % 0 % (0-3); HEMATOCRIT 21.7 % (39.0-53.0); HEMOGLOBIN 7.7 g/dL (13.0-17.5); LYMPH # 2.7 x10^3/uL (1.0-4.8); LYMPH % 17 % (24-48); MEAN CORPUSCULAR HEMOGLOBIN 33 pg (25-35); MEAN CORPUSCULAR HGB CONC 35 g/dL (31-37); MEAN CORPUSCULAR VOLUME 92 fL (79-100); MONO # 1.2 x10^3/uL (0.0-1.1); MONO % 7 % (0-9); NEUT # 11.9 x10^3/uL (1.8-7.7); NEUT % 75 % (31-73); PLATELET COUNT 44 x10^3/uL (140-400); RED BLOOD COUNT 2.35 x10^6/uL (4.30-5.70); RED CELL DISTRIBUTION WIDTH 17.9 % (11.5-14.5); WHITE BLOOD COUNT 15.9 x10^3/uL (4.0-11.0)
[2019-01-22 06:05] LABS: ALBUMIN 3.7 g/dL (3.4-5.0); ALBUMIN/GLOBULIN RATIO 1.6 (1.0-1.7); CALCIUM 8.4 mg/dL (8.5-10.1); CREATININE 1.3 mg/dL (0.7-1.3); GFR 61.8; POTASSIUM 3.8 mmol/L (3.5-5.1); TOTAL BILIRUBIN 21.5 mg/dL (0.2-1.0)
[2019-01-22] MEDS: ALBUMIN HUMAN 25% 100 ML IV SCH ×3 (06:12→17:18)
[2019-01-22] MEDS ORDERED: POTASSIUM PHOSPHATE DIBASIC 20 MMOL in IV NORMAL SALINE 250ML 250 ML IV ONE (06:30)
--- NOTE | 2019-01-22 07:32 | PDOC ---
Infectious Disease Note Subjective: Subjective pt intubated,sedated fio2 100% Peep 14 recieved one unit of blood on 01/21 on dialysis on low dose pressors d/w rn ROS: ROS unable to obtain Vital Signs: Vital Signs Vital Signs Date Time Temp Pulse Resp B/P (MAP) Pulse Ox O2 Delivery O2 Flow Rate FiO2 01/22/19 06:00 97 24 107/36 (59) 100 Ventilator 01/22/19 04:00 99.2 99.2 Physical Exam: PHYSICAL EXAM GENERAL: Orally intubated and sedated, CRRT HEENT: Icteric, Pupils equal, ETT and OGT LUNGS: Right-sided rhonchi HEART: S1 S2 regular ABDOMEN: Obese, distended,hypoactive BS : - Pollard EXTREMITIES:gen edema, LLE ecchymosis. SKIN: warm to touch , ecchymotic lesion on the back NEUROLOGIC: Sedated RIJ and Temp RIJ/HDC (01/13) clean PIV Medications: Inpatient Meds: Current Medications Medications (Trade) Dose Ordered Sig/Quyen Start Time Stop Time Status Last Admin Dose Admin Acetaminophen (Tylenol Supp) 650 mg PRN Q6HRS PRN 01/08/19 18:15 01/09/19 23:44 650 MG Acetaminophen (Tylenol) 650 mg PRN Q6HRS PRN 01/12/19 16:30 01/14/19 09:11 650 MG Albumin Human 100 ml @ As Directed STK-MED ONCE 01/19/19 17:00 01/19/19 17:00 DC Artificial Tears (Artificial Tears) 1 drop Q4H PRN 01/14/19 15:30 01/14/19 16:43 1 DROP Benzocaine (Hurricaine One) 2 spray STK-MED ONCE 01/07/19 12:00 01/08/19 14:20 DC Bisacodyl (Dulcolax Supp) 10 mg 1X ONCE 01/13/19 11:00 01/13/19 11:01 DC 01/13/19 10:14 10 MG Calcium Chloride 12.5 meq/ Magnesium Sulfate 2.5 meq/Potassium Chloride 10 meq/ Sodium Bicarbonate 40 meq/Bicarbonate Dialysis Soln w/ out KCl 5,054.5443 ml @ 500 mls/hr Q10H7M 01/18/19 18:00 01/19/19 07:48 DC 01/19/19 05:16 500 MLS/HR Calcium Chloride 12.5 meq/ Potassium Chloride 5 meq/ Bicarbonate Dialysis Soln w/ out KCl 5,011.4286 ml @ 500 mls/hr Q10H2M 01/20/19 11:30 01/21/19 21:07 500 MLS/HR Calcium Chloride 12.5 meq/ Potassium Chloride 5 meq/ Sodium Bicarbonate 40 meq/Bicarbonate Dialysis Soln w/ out KCl 5,051.4286 ml @ 500 mls/hr Q10H7M 01/19/19 15:00 01/20/19 11:30 DC 01/20/19 03:09 500 MLS/HR Clonidine HCl (Catapres) 0.1 mg PRN Q1HR PRN 01/08/19 07:15 Daptomycin 500 mg/ Sodium Chloride 50 ml @ 100 mls/hr Q48H 01/16/19 09:00 01/20/19 09:16 100 MLS/HR Darbepoetin Giorgi (ARANESP for DIALYSIS PTS) 60 mcg WEEKLYHS 01/13/19 21:00 01/20/19 21:43 60 MCG Dexmedetomidine HCl 400 mcg/ Sodium Chloride 100 ml @ 0 mls/hr CONT PRN 01/14/19 11:30 01/22/19 04:13 31.8 MLS/HR Dextrose (Dextrose 50%-Water Syringe) 12.5 gm PRN Q15MIN PRN 01/09/19 10:30 01/18/19 22:35 25 GM Diphenhydramine HCl (Benadryl) 25 mg PRN Q15MIN PRN 01/08/19 07:15 Docusate Sodium (Enemeez) 283 mg 1X ONCE 01/13/19 16:45 01/13/19 16:47 DC 01/13/19 17:14 283 MG Epinephrine HCl (EPINEPHrine SYRINGE) 1 mg STK-MED ONCE 01/19/19 12:00 01/21/19 15:55 DC Epinephrine HCl 4 mg/Sodium Chloride 254 ml @ 41.822 mls/ hr CONT PRN 01/18/19 16:15 01/19/19 18:00 DC Epinephrine HCl 8 mg/Sodium Chloride 258 ml @ 20.9 mls/hr CONT PRN 01/19/19 14:15 Fentanyl Citrate (Fentanyl 2ml Vial) 100 mcg 1X ONCE 01/08/19 09:45 01/08/19 09:46 DC 01/08/19 09:42 100 MCG Fentanyl Citrate (Fentanyl 600 Mcg/30 ml INS[employer]) 600 mcg STK-MED ONCE 01/08/19 15:25 01/09/19 10:27 DC Haloperidol Lactate (Haldol Inj) 5 mg PRN Q4HRS PRN 01/08/19 07:15 Heparin Sodium (Porcine) (Heparin Sodium) 10,000 unit STK-MED ONCE 01/13/19 10:59 01/13/19 11:00 DC Info (PHARMACY MONITORING -- do not chart) 1 each PRN DAILY PRN 01/15/19 10:00 01/15/19 10:57 DC Info (Tpn Per Pharmacy) 1 each PRN DAILY PRN 01/13/19 11:15 01/21/19 13:27 1 EACH Insulin Human Lispro (HumaLOG) 0-9 UNITS TIDWMEALS 01/09/19 12:00 01/21/19 08:00 4 UNITS Lactobacillus Rhamnosus (Culturelle) 1 cap BID 01/08/19 21:00 01/09/19 09:29 DC Lactulose (LACTULOSE 300ML for RECTAL) 200 gm Q6HRS 01/09/19 12:00 01/09/19 11:04 DC Lactulose (Lactulose) 20 gm TID 01/13/19 10:00 01/14/19 21:01 20 GM Levofloxacin/ Dextrose 100 ml @ 100 mls/hr Q24H 01/14/19 09:00 01/21/19 08:14 100 MLS/HR Lidocaine HCl (Buffered Lidocaine 1%) 3 ml 1X ONCE 01/13/19 11:00 01/13/19 11:01 DC 01/13/19 11:00 3 ML Lidocaine HCl (Xylocaine 2% Topical 5gm Tube) 5 amanda STK-MED ONCE 01/07/19 12:00 01/08/19 14:20 DC Linezolid/Dextrose 300 ml @ 300 mls/hr Q12HR 01/11/19 13:00 01/16/19 08:29 DC 01/16/19 08:26 300 MLS/HR Lorazepam (Ativan Inj) 4 mg PRN Q1HR PRN 01/08/19 07:15 01/15/19 08:40 4 MG Magnesium Sulfate 50 ml @ 25 mls/hr 1X ONCE 01/21/19 16:30 01/21/19 18:29 DC 01/21/19 16:24 25 MLS/HR Meropenem 1 gm/ Sodium Chloride 50 ml @ 100 mls/hr Q12H 01/20/19 02:00 01/22/19 02:16 100 MLS/HR Meropenem 500 mg/ Sodium Chloride 50 ml @ 100 mls/hr Q8HRS 01/18/19 14:00 01/19/19 09:24 DC 01/19/19 06:02 100 MLS/HR Methylprednisolone Sodium Succinate (SOLU-Medrol 125MG VIAL) 125 mg STK-MED ONCE 01/18/19 16:26 01/18/19 16:26 DC Metoclopramide HCl (Reglan Vial) 5 mg 1X ONCE 01/14/19 10:30 01/14/19 10:31 DC 01/14/19 10:51 5 MG Midazolam HCl 100 ml @ 5 mls/hr CONT PRN 01/08/19 11:15 01/21/19 21:59 10 MLS/HR Midazolam HCl (Versed) 5 mg 1X ONCE 01/08/19 09:45 01/08/19 09:46 DC 01/08/19 09:41 5 MG Morphine Sulfate (Morphine Sulfate) 2 mg PRN Q2HR PRN 01/08/19 09:15 Multi-Ingred Cream/Lotion/Oil/ Oint (Artificial Tears Eye Ointment) 1 amanda PRN Q1HR PRN 01/13/19 16:45 01/13/19 17:14 1 AMANDA Multivitamins 10 ml/Thiamine HCl 100 mg/Folic Acid 1 mg/Sodium Chloride 1,011.2 ml @ 100 mls/ hr DAILY 01/08/19 09:00 01/12/19 19:07 DC 01/12/19 10:29 100 MLS/HR Naloxone HCl (Narcan) 0.4 mg PRN Q2MIN PRN 01/08/19 09:00 Norepinephrine Bitartrate 250 ml @ 18.938 mls/ hr CONT PRN 01/09/19 01:45 01/19/19 11:30 DC 01/19/19 06:31 28.406 MLS/HR Norepinephrine Bitartrate 32 mg/ Sodium Chloride 250 ml @ 7 mls/hr CONT PRN 01/19/19 11:30 01/19/19 14:15 5.344 MLS/HR Octreotide Acetate 500 mcg/ Sodium Chloride 101 ml @ 0 mls/hr CONT PRN 01/08/19 09:00 01/08/19 16:55 DC 01/08/19 13:56 10.1 MLS/HR Ondansetron HCl (Zofran) 4 mg PRN Q6HRS PRN 01/08/19 09:15 Pantoprazole Sodium (PROTONIX VIAL for IV PUSH) 40 mg DAILYAC 01/10/19 07:30 01/21/19 07:59 40 MG Pantoprazole Sodium 80 mg/ Sodium Chloride 100 ml @ 10 mls/hr Q10H 01/08/19 06:00 01/09/19 11:00 DC 01/09/19 02:00 10 MLS/HR Perflutren Protein Type A Microsphe (Optison) 0.66 mg 1X ONCE 01/11/19 13:30 01/11/19 13:31 DC Phytonadione (Vitamin K Ampule) 10 mg 1X ONCE 01/08/19 09:15 01/08/19 09:16 DC 01/08/19 09:56 10 MG Phytonadione 10 mg/Dextrose 51 ml @ 102 mls/hr 1X ONCE 01/20/19 10:45 01/20/19 11:14 DC 01/20/19 11:07 102 MLS/HR Piperacillin Sod/ Tazobactam Sod (Zosyn Per Pharmacy) 1 each PRN DAILY PRN 01/07/19 21:00 01/18/19 12:16 DC Piperacillin Sod/ Tazobactam Sod 3.375 gm/Sodium Chloride 50 ml @ 100 mls/hr Q6HRS 01/07/19 22:00 01/18/19 12:16 DC 01/18/19 05:54 100 MLS/HR Potassium Bicarbonate (Potassium Effervescent Tablet) 40 meq BIDWMEALS 01/10/19 09:00 01/11/19 09:20 DC 01/10/19 17:49 40 MEQ Potassium Chloride 20 meq/ Bicarbonate Dialysis Soln w/ out KCl 5,010 ml @ 1,200 mls/hr Q4H11M 01/15/19 19:00 01/17/19 15:00 DC 01/17/19 00:17 1,200 MLS/HR Potassium Chloride 20 meq/ Sodium Bicarbonate 40 meq/Bicarbonate Dialysis Soln w/ out KCl 5,050 ml @ 1,200 mls/hr Q4H13M 01/17/19 15:00 01/18/19 09:51 DC 01/18/19 06:01 1,200 MLS/HR Potassium Chloride/Sodium Chloride 1,000 ml @ 75 mls/hr 1X ONCE 01/07/19 21:30 01/08/19 10:49 DC 01/07/19 21:16 75 MLS/HR Potassium Phosphate 20 mmol/ Sodium Chloride 256.6667 ml @ 62.5 mls/hr 1X ONCE 01/22/19 06:30 01/22/19 10:36 01/22/19 06:22 62.5 MLS/HR Potassium Phosphate 40 mmol/ Sodium Chloride 263.3333 ml @ 62.5 mls/hr 1X ONCE 01/21/19 21:45 01/22/19 01:57 DC 01/21/19 22:00 62.5 MLS/HR Potassium Chloride (Klor-Con) 40 meq 1X ONCE 01/09/19 09:45 01/09/19 09:46 DC 01/09/19 11:34 40 MEQ Propofol 100 ml @ 1.524 mls/ hr CONT PRN 01/08/19 09:45 01/14/19 03:56 9.147 MLS/HR Sodium Acetate 40 meq/Potassium Acetate 30 meq/ Calcium Gluconate 10 meq/ Multivitamins 10 ml/Chromium/ Copper/Manganese/ Seleni/Zn 1 ml/ Total Parenteral Nutrition/Amino Acids/Dextrose/ Fat Emulsion Intravenous 1,512 ml @ 63 mls/hr TPN CONT 01/13/19 22:00 01/14/19 21:59 DC 01/13/19 21:54 63 MLS/HR Sodium Bicarbonate (Sodium Bicarb Adult 8.4% Syr) 50 meq STK-MED ONCE 01/19/19 12:00 01/21/19 15:55 DC Sodium Chloride 30 meq/Sodium Acetate 40 meq/ Potassium Acetate 30 meq/Calcium Gluconate 10 meq/ Multivitamins 10 ml/Chromium/ Copper/Manganese/ Seleni/Zn 1 ml/ Total Parenteral Nutrition/Amino Acids/Dextrose/ Fat Emulsion Intravenous 1,512 ml @ 63 mls/hr TPN CONT 01/14/19 22:00 01/15/19 21:59 DC 01/15/19 00:05 63 MLS/HR Sodium Chloride 40 meq/Sodium Acetate 40 meq/ Calcium Gluconate 10 meq/ Multivitamins 10 ml/Chromium/ Copper/Manganese/ Seleni/Zn 1 ml/ Thiamine HCl 100 mg/Total Parenteral Nutrition/Amino Acids/Dextrose/ Fat Emulsion Intravenous 1,512 ml @ 63 mls/hr TPN CONT 01/15/19 22:00 01/16/19 21:59 DC 01/15/19 21:45 63 MLS/HR Sodium Chloride 40 meq/Sodium Acetate 40 meq/ Potassium Acetate 10 meq/Calcium Gluconate 10 meq/ Multivitamins 10 ml/Chromium/ Copper/Manganese/ Seleni/Zn 1 ml/ Thiamine HCl 100 mg/Total Parenteral Nutrition/Amino Acids/Dextrose/ Fat Emulsion Intravenous 1,512 ml @ 63 mls/hr TPN CONT 01/15/19 22:00 01/15/19 14:18 DC Sodium Chloride 40 meq/Sodium Acetate 40 meq/ Potassium Acetate 10 meq/Calcium Gluconate 10 meq/ Multivitamins 10 ml/Chromium/ Copper/Manganese/ Seleni/Zn 1 ml/ Total Parenteral Nutrition/Amino Acids/Dextrose/ Fat Emulsion Intravenous 1,512 ml @ 63 mls/hr TPN CONT 01/15/19 22:00 01/15/19 11:06 DC Sodium Chloride 60 meq/Sodium Acetate 40 meq/ Calcium Gluconate 10 meq/ Multivitamins 10 ml/Chromium/ Copper/Manganese/ Seleni/Zn 1 ml/ Thiamine HCl 100 mg/Total Parenteral Nutrition/Amino Acids/Dextrose/ Fat Emulsion Intravenous 1,512 ml @ 63 mls/hr TPN CONT 01/16/19 22:00 01/18/19 10:50 DC 01/16/19 22:00 63 MLS/HR Sodium Chloride 80 meq/Calcium Gluconate 10 meq/ Multivitamins 10 ml/Chromium/ Copper/Manganese/ Seleni/Zn 1 ml/ Thiamine HCl 100 mg/Total Parenteral Nutrition/Amino Acids/Dextrose/ Fat Emulsion Intravenous 1,200 ml @ 50 mls/hr TPN CONT 01/19/19 22:00 01/20/19 21:59 DC 01/19/19 21:30 50 MLS/HR Sodium Chloride 80 meq/Calcium Gluconate 20 meq/ Multivitamins 10 ml/Chromium/ Copper/Manganese/ Seleni/Zn 1 ml/ Thiamine HCl 100 mg/Total Parenteral Nutrition/Amino Acids/Dextrose/ Fat Emulsion Intravenous 1,200 ml @ 50 mls/hr TPN CONT 01/20/19 22:00 01/21/19 21:59 DC 01/20/19 21:43 50 MLS/HR Sodium Chloride 80 meq/Calcium Gluconate 25 meq/ Multivitamins 10 ml/Chromium/ Copper/Manganese/ Seleni/Zn 1 ml/ Thiamine HCl 100 mg/Total Parenteral Nutrition/Amino Acids/Dextrose/ Fat Emulsion Intravenous 1,512 ml @ 63 mls/hr TPN CONT 01/21/19 22:00 01/22/19 21:59 01/21/19 22:09 63 MLS/HR Sodium Phosphate 40 mmol/Dextrose 263.3333 ml @ 62.5 mls/hr 1X ONCE 01/21/19 09:00 01/21/19 13:13 DC 01/21/19 09:26 62.5 MLS/HR Succinylcholine Chloride (Anectine) 200 mg 1X ONCE 01/08/19 09:45 01/08/19 09:46 DC 01/08/19 09:41 200 MG Tramadol HCl (Ultram) 50 mg PRN Q6HRS PRN 01/08/19 09:15 Vancomycin HCl (Vanco Per Pharmacy) 1 each PRN DAILY PRN 01/07/19 21:00 01/08/19 06:39 DC 01/08/19 00:43 1 EACH Vancomycin HCl (Vancomycin Trough Level) 1 each 1X ONCE 01/09/19 09:30 01/09/19 09:31 Cancel Vancomycin HCl 1.5 gm/Sodium Chloride 500 ml @ 250 mls/hr Q12H 01/08/19 10:00 01/08/19 06:39 DC Vancomycin HCl 2 gm/Sodium Chloride 500 ml @ 250 mls/hr 1X ONCE 01/07/19 22:00 01/07/19 23:59 DC 01/07/19 22:11 250 MLS/HR Vasopressin 40 unit/Dextrose 102 ml @ 6 mls/hr CONT PRN 01/15/19 10:00 01/20/19 19:31 6 MLS/HR Vecuronium [place] (Norcuron Bolus) 6 mg PRN Q4HRS PRN 01/08/19 12:00 01/22/19 01:19 6 MG Labs: Lab Laboratory Tests Test 01/21/19 07:50 01/21/19 09:00 01/21/19 11:46 01/21/19 12:40 O2 Saturation 98 % (92-99) Arterial Blood pH 7.39 (7.35-7.45) Arterial Blood pCO2 at Patient Temp 41 mmHg (35-46) Arterial Blood pO2 at Patient Temp 109 mmHg (85-108) Arterial Blood HCO3 24 mmol/L (21-28) Arterial Blood Base Excess -1 mmol/L (-3-3) FiO2 100 Lactic Acid Level 3.6 mmol/L (0.4-2.0) Glucose (Fingerstick) 147 mg/dL (70-99) Sodium Level 140 mmol/L (136-145) Potassium Level 3.5 mmol/L (3.5-5.1) Chloride Level 101 mmol/L (98-107) Carbon Dioxide Level 28 mmol/L (21-32) Anion Gap 11 (6-14) Blood Urea Nitrogen 41 mg/dL (8-26) Creatinine 1.2 mg/dL (0.7-1.3) Estimated GFR (Cockcroft-Gault) 67.8 Glucose Level 167 mg/dL (70-99) Calcium Level 7.7 mg/dL (8.5-10.1) Test 01/21/19 15:30 01/21/19 16:50 01/21/19 20:55 01/22/19 05:00 Hemoglobin 7.9 g/dL (13.0-17.5) 7.7 g/dL (13.0-17.5) Hematocrit 23.1 % (39.0-53.0) 21.7 % (39.0-53.0) Mean Corpuscular Hemoglobin Concent 34 g/dL (31-37) 35 g/dL (31-37) Phosphorus Level 2.5 mg/dL (2.6-4.7) 1.5 mg/dL (2.6-4.7) 2.3 mg/dL (2.6-4.7) Magnesium Level 1.7 mg/dL (1.8-2.4) 2.0 mg/dL (1.8-2.4) 1.8 mg/dL (1.8-2.4) Glucose (Fingerstick) 137 mg/dL (70-99) Sodium Level 140 mmol/L (136-145) 139 mmol/L (136-145) Potassium Level 3.6 mmol/L (3.5-5.1) 3.8 mmol/L (3.5-5.1) Chloride Level 101 mmol/L (98-107) 101 mmol/L (98-107) Carbon Dioxide Level 28 mmol/L (21-32) 25 mmol/L (21-32) Anion Gap 11 (6-14) 13 (6-14) Blood Urea Nitrogen 41 mg/dL (8-26) 40 mg/dL (8-26) Creatinine 1.3 mg/dL (0.7-1.3) 1.3 mg/dL (0.7-1.3) Estimated GFR (Cockcroft-Gault) 61.8 61.8 Glucose Level 131 mg/dL (70-99) 120 mg/dL (70-99) Lactic Acid Level 3.9 mmol/L (0.4-2.0) Calcium Level 8.0 mg/dL (8.5-10.1) 8.4 mg/dL (8.5-10.1) White Blood Count 15.9 x10^3/uL (4.0-11.0) Red Blood Count 2.35 x10^6/uL (4.30-5.70) Mean Corpuscular Volume 92 fL (79-100) Mean Corpuscular Hemoglobin 33 pg (25-35) Red Cell Distribution Width 17.9 % (11.5-14.5) Platelet Count 44 x10^3/uL (140-400) Neutrophils (%) (Auto) 75 % (31-73) Lymphocytes (%) (Auto) 17 % (24-48) Monocytes (%) (Auto) 7 % (0-9) Eosinophils (%) (Auto) 0 % (0-3) Basophils (%) (Auto) 0 % (0-3) Neutrophils # (Auto) 11.9 x10^3/uL (1.8-7.7) Lymphocytes # (Auto) 2.7 x10^3/uL (1.0-4.8) Monocytes # (Auto) 1.2 x10^3/uL (0.0-1.1) Eosinophils # (Auto) 0.0 x10^3/uL (0.0-0.7) Basophils # (Auto) 0.1 x10^3/uL (0.0-0.2) BUN/Creatinine Ratio 31 (6-20) Total Bilirubin 21.5 mg/dL (0.2-1.0) Aspartate Amino Transf (AST/SGOT) 192 U/L (15-37) Alanine Aminotransferase (ALT/SGPT) 62 U/L (16-63) Alkaline Phosphatase 281 U/L (46-116) Total Protein 6.0 g/dL (6.4-8.2) Albumin 3.7 g/dL (3.4-5.0) Albumin/Globulin Ratio 1.6 (1.0-1.7) Triglycerides Level 175 mg/dL (0-150) Objective: Assessment: Hypotension on pressors Fever - improved ? ID vs PRBCs vs reactive vs Withdrawl - improved , uc neg, bc neg, sputum neg Leukocytosis - ? reactive, s/p prbc Thrombocytopenia , DIC Lactic acidosis Resp failure s/p intubation. + mycoplasma (01/14) ,stable infiltrates DOMONIQUE on CRRT GI Bleed - s/p EGD 01/08 - Reflux esophagitis. ? recent M-W tear. Alcoholic gastritis. 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 GI following ? pancreatitis. Lipase improved Rhabdomyolysis Heavy ETOH abuse Ileus Anemia s/p PRBCs Left leg ecchymosis, blood stained resp secretions Ecchymotic lesion on sacral area Pyuria UC negative Plan: Plan of Care Merrem and Levaquin, renally adjusted.Pharmacy assisting was on zosyn prior to merrem above antibiotics are probably less likely to cause thrombocytopenia; could be from DIC,hepatic failure Bilirubin is increasing will dc daptomycin local care of decubitus, off load if possible f/u cultures Supportive care Critically ill Prognosis poor D/W DAVID SOSA MD Jan 22, 2019 07:32
[2019-01-22] MEDS: INSULIN LISPRO 300 UNITS/3 ML VIAL. SQ SCH ×3 (07:46→17:19)
[2019-01-22] MEDS: PANTOPRAZOLE IV PUSH 40 MG VIAL. IVP SCH (07:56)
[2019-01-22 08:24] LABS: BASE EXCESS ABG -2 mmol/L (-3-3); HCO3 ABG 22 mmol/L (21-28); PCO2 ABG 33 mmHg (35-46); PO2 ABG 87 mmHg (85-108); SAT O2 ABG 96 % (92-99)
[2019-01-22] MEDS: LACTULOSE 20 GM/30 ML SOLUTION. PO SCH ×3 (08:38→21:00)
[2019-01-22] MEDS: IV NORMAL SALINE 1000ML BAG 1,000 ML IV SCH (08:54)
--- NOTE | 2019-01-22 09:10 | RAD ---
EXAM: Chest, single view. HISTORY: Ventilatory support COMPARISON: 01/21/2019 FINDINGS: A frontal view of the chest is obtained. There is an endotracheal tube within the mid trachea. There is a nasogastric tube within the stomach. There are right internal jugular catheters with the tips in the superior cava and superior cavoatrial junction. There is diffuse left greater than right lung interstitial and alveolar infiltrate with a suspected small left pleural effusion and partial left lower lobe consolidation. The heart is normal in size. IMPRESSION: 1. Stable diffuse left greater than right lung infiltrate with partial left lower lobe consolidation in a small left pleural effusion. 2. Support lines and tubes, described above. Electronically signed by: Rachael Reardon MD (01/22/2019 9:07 AM) [place] [id number]
--- NOTE | 2019-01-22 09:43 | PDOC ---
SUBJECTIVE ROS intubated,sedated,s/p 1 unit of blood on 01/21 on low dose pressors,Tolerating CRRT OBJECTIVE Vital Signs Vital Signs Date Time Temp Pulse Resp B/P (MAP) Pulse Ox O2 Delivery O2 Flow Rate FiO2 01/22/19 08:38 24 100 Ventilator 01/22/19 07:00 94 95/54 (68) 01/22/19 04:00 99.2 99.2 I & 0 Intake and Output 01/22/19 07:00 Intake Total 2482.38 ml Output Total 0 ml Balance 2482.38 ml IV Total 1788.38 ml Blood Product IV Normal Saline Flush 640 ml Other 54 ml Output Urine Total 0 ml PHYSICAL EXAM Physical Exam GENERAL: Orally intubated and sedated, CRRT HEENT: Icteric, Pupils equal, ETT and OGT LUNGS: Decreased at bases HEART: S1 S2 regular ABDOMEN: Obese, soft, : - Pollard + EXTREMITIES:gen edema, LLE ecchymosis. SKIN: Warm to touch. No rash NEUROLOGIC: Sedated Temp RIJ/HDC (01/13) DIAGNOSIS/ASSESSMENT Assessment & Plan DOMONIQUE/ ATN: anuric seen on CRRT , tolerating UF , continue as ordered, Dw RN Switch to HD when hemodynamically stable Supportive care, Avoid Nephrotoxins, Monitor Hypotension - on low dose Levophed Thrombocytopenia -Hem/Onc consulted DIC and PF4 to r.o HIT pending Resp failure s/p intubation. + mycoplasma (01/14) GI Bleed - s/p EGD 01/08 - Reflux esophagitis. ? recent M-W tear. Alcoholic gastritis. Anemia - per Primary and Hem/Onc S/P PRBC 01/21 Cirrhosis /Alcoholic hepatitis - Hep C Ab positive, GI following Heavy ETOH abuse Critically ill COMMENT/RELEVANT DATA Meds Current Medications Medications (Trade) Dose Ordered Sig/Quyen Start Time Stop Time Status Last Admin Dose Admin Acetaminophen (Tylenol Supp) 650 mg PRN Q6HRS PRN 01/08/19 18:15 01/09/19 23:44 650 MG Acetaminophen (Tylenol) 650 mg PRN Q6HRS PRN 01/12/19 16:30 01/14/19 09:11 650 MG Albumin Human 100 ml @ As Directed STK-MED ONCE 01/19/19 17:00 01/19/19 17:00 DC Artificial Tears (Artificial Tears) 1 drop Q4H PRN 01/14/19 15:30 01/14/19 16:43 1 DROP Benzocaine (Hurricaine One) 2 spray STK-MED ONCE 01/07/19 12:00 01/08/19 14:20 DC Bisacodyl (Dulcolax Supp) 10 mg 1X ONCE 01/13/19 11:00 01/13/19 11:01 DC 01/13/19 10:14 10 MG Calcium Chloride 12.5 meq/ Magnesium Sulfate 2.5 meq/Potassium Chloride 10 meq/ Sodium Bicarbonate 40 meq/Bicarbonate Dialysis Soln w/ out KCl 5,054.5443 ml @ 500 mls/hr Q10H7M 01/18/19 18:00 01/19/19 07:48 DC 01/19/19 05:16 500 MLS/HR Calcium Chloride 12.5 meq/ Potassium Chloride 5 meq/ Bicarbonate Dialysis Soln w/ out KCl 5,011.4286 ml @ 500 mls/hr Q10H2M 01/20/19 11:30 01/22/19 07:59 500 MLS/HR Calcium Chloride 12.5 meq/ Potassium Chloride 5 meq/ Sodium Bicarbonate 40 meq/Bicarbonate Dialysis Soln w/ out KCl 5,051.4286 ml @ 500 mls/hr Q10H7M 01/19/19 15:00 01/20/19 11:30 DC 01/20/19 03:09 500 MLS/HR Clonidine HCl (Catapres) 0.1 mg PRN Q1HR PRN 01/08/19 07:15 Daptomycin 500 mg/ Sodium Chloride 50 ml @ 100 mls/hr Q48H 01/16/19 09:00 01/22/19 08:12 DC 01/20/19 09:16 100 MLS/HR Darbepoetin Giorgi (ARANESP for DIALYSIS PTS) 60 mcg WEEKLYHS 01/13/19 21:00 01/20/19 21:43 60 MCG Dexmedetomidine HCl 400 mcg/ Sodium Chloride 100 ml @ 0 mls/hr CONT PRN 01/14/19 11:30 01/22/19 07:56 26.5 MLS/HR Dextrose (Dextrose 50%-Water Syringe) 12.5 gm PRN Q15MIN PRN 01/09/19 10:30 01/18/19 22:35 25 GM Diphenhydramine HCl (Benadryl) 25 mg PRN Q15MIN PRN 01/08/19 07:15 Docusate Sodium (Enemeez) 283 mg 1X ONCE 01/13/19 16:45 01/13/19 16:47 DC 01/13/19 17:14 283 MG Epinephrine HCl (EPINEPHrine SYRINGE) 1 mg STK-MED ONCE 01/19/19 12:00 01/21/19 15:55 DC Epinephrine HCl 4 mg/Sodium Chloride 254 ml @ 41.822 mls/ hr CONT PRN 01/18/19 16:15 01/19/19 18:00 DC Epinephrine HCl 8 mg/Sodium Chloride 258 ml @ 20.9 mls/hr CONT PRN 01/19/19 14:15 Fentanyl Citrate (Fentanyl 2ml Vial) 100 mcg 1X ONCE 01/08/19 09:45 01/08/19 09:46 DC 01/08/19 09:42 100 MCG Fentanyl Citrate (Fentanyl 600 Mcg/30 ml TIME MOTION ANALYST) 600 mcg STK-MED ONCE 01/08/19 15:25 01/09/19 10:27 DC Haloperidol Lactate (Haldol Inj) 5 mg PRN Q4HRS PRN 01/08/19 07:15 Heparin Sodium (Porcine) (Heparin Sodium) 10,000 unit STK-MED ONCE 01/13/19 10:59 01/13/19 11:00 DC Info (PHARMACY MONITORING -- do not chart) 1 each PRN DAILY PRN 01/15/19 10:00 01/15/19 10:57 DC Info (Tpn Per Pharmacy) 1 each PRN DAILY PRN 01/13/19 11:15 01/21/19 13:27 1 EACH Insulin Human Lispro (HumaLOG) 0-9 UNITS TIDWMEALS 01/09/19 12:00 01/21/19 08:00 4 UNITS Lactobacillus Rhamnosus (Culturelle) 1 cap BID 01/08/19 21:00 01/09/19 09:29 DC Lactulose (LACTULOSE 300ML for RECTAL) 200 gm Q6HRS 01/09/19 12:00 01/09/19 11:04 DC Lactulose (Lactulose) 20 gm TID 01/13/19 10:00 01/14/19 21:01 20 GM Levofloxacin/ Dextrose 100 ml @ 100 mls/hr Q24H 01/14/19 09:00 01/22/19 08:37 100 MLS/HR Lidocaine HCl (Buffered Lidocaine 1%) 3 ml 1X ONCE 01/13/19 11:00 01/13/19 11:01 DC 01/13/19 11:00 3 ML Lidocaine HCl (Xylocaine 2% Topical 5gm Tube) 5 amanda STK-MED ONCE 01/07/19 12:00 01/08/19 14:20 DC Linezolid/Dextrose 300 ml @ 300 mls/hr Q12HR 01/11/19 13:00 01/16/19 08:29 DC 01/16/19 08:26 300 MLS/HR Lorazepam (Ativan Inj) 4 mg PRN Q1HR PRN 01/08/19 07:15 01/15/19 08:40 4 MG Magnesium Sulfate 50 ml @ 25 mls/hr 1X ONCE 01/21/19 16:30 01/21/19 18:29 DC 01/21/19 16:24 25 MLS/HR Meropenem 1 gm/ Sodium Chloride 50 ml @ 100 mls/hr Q12H 01/20/19 02:00 01/22/19 02:16 100 MLS/HR Meropenem 500 mg/ Sodium Chloride 50 ml @ 100 mls/hr Q8HRS 01/18/19 14:00 01/19/19 09:24 DC 01/19/19 06:02 100 MLS/HR Methylprednisolone Sodium Succinate (SOLU-Medrol 125MG VIAL) 125 mg STK-MED ONCE 01/18/19 16:26 01/18/19 16:26 DC Metoclopramide HCl (Reglan Vial) 5 mg 1X ONCE 01/14/19 10:30 01/14/19 10:31 DC 01/14/19 10:51 5 MG Midazolam HCl 100 ml @ 5 mls/hr CONT PRN 01/08/19 11:15 01/21/19 21:59 10 MLS/HR Midazolam HCl (Versed) 5 mg 1X ONCE 01/08/19 09:45 01/08/19 09:46 DC 01/08/19 09:41 5 MG Morphine Sulfate (Morphine Sulfate) 2 mg PRN Q2HR PRN 01/08/19 09:15 Multi-Ingred Cream/Lotion/Oil/ Oint (Artificial Tears Eye Ointment) 1 amanda PRN Q1HR PRN 01/13/19 16:45 01/13/19 17:14 1 AMANDA Multivitamins 10 ml/Thiamine HCl 100 mg/Folic Acid 1 mg/Sodium Chloride 1,011.2 ml @ 100 mls/ hr DAILY 01/08/19 09:00 01/12/19 19:07 DC 01/12/19 10:29 100 MLS/HR Naloxone HCl (Narcan) 0.4 mg PRN Q2MIN PRN 01/08/19 09:00 Norepinephrine Bitartrate 250 ml @ 18.938 mls/ hr CONT PRN 01/09/19 01:45 01/19/19 11:30 DC 01/19/19 06:31 28.406 MLS/HR Norepinephrine Bitartrate 32 mg/ Sodium Chloride 250 ml @ 7 mls/hr CONT PRN 01/19/19 11:30 01/19/19 14:15 5.344 MLS/HR Octreotide Acetate 500 mcg/ Sodium Chloride 101 ml @ 0 mls/hr CONT PRN 01/08/19 09:00 01/08/19 16:55 DC 01/08/19 13:56 10.1 MLS/HR Ondansetron HCl (Zofran) 4 mg PRN Q6HRS PRN 01/08/19 09:15 Pantoprazole Sodium (PROTONIX VIAL for IV PUSH) 40 mg DAILYAC 01/10/19 07:30 01/22/19 07:56 40 MG Pantoprazole Sodium 80 mg/ Sodium Chloride 100 ml @ 10 mls/hr Q10H 01/08/19 06:00 01/09/19 11:00 DC 01/09/19 02:00 10 MLS/HR Perflutren Protein Type A Microsphe (Optison) 0.66 mg 1X ONCE 01/11/19 13:30 01/11/19 13:31 DC Phytonadione (Vitamin K Ampule) 10 mg 1X ONCE 01/08/19 09:15 01/08/19 09:16 DC 01/08/19 09:56 10 MG Phytonadione 10 mg/Dextrose 51 ml @ 102 mls/hr 1X ONCE 01/20/19 10:45 01/20/19 11:14 DC 01/20/19 11:07 102 MLS/HR Piperacillin Sod/ Tazobactam Sod (Zosyn Per Pharmacy) 1 each PRN DAILY PRN 01/07/19 21:00 01/18/19 12:16 DC Piperacillin Sod/ Tazobactam Sod 3.375 gm/Sodium Chloride 50 ml @ 100 mls/hr Q6HRS 01/07/19 22:00 01/18/19 12:16 DC 01/18/19 05:54 100 MLS/HR Potassium Bicarbonate (Potassium Effervescent Tablet) 40 meq BIDWMEALS 01/10/19 09:00 01/11/19 09:20 DC 01/10/19 17:49 40 MEQ Potassium Chloride 20 meq/ Bicarbonate Dialysis Soln w/ out KCl 5,010 ml @ 1,200 mls/hr Q4H11M 01/15/19 19:00 01/17/19 15:00 DC 01/17/19 00:17 1,200 MLS/HR Potassium Chloride 20 meq/ Sodium Bicarbonate 40 meq/Bicarbonate Dialysis Soln w/ out KCl 5,050 ml @ 1,200 mls/hr Q4H13M 01/17/19 15:00 01/18/19 09:51 DC 01/18/19 06:01 1,200 MLS/HR Potassium Chloride/Sodium Chloride 1,000 ml @ 75 mls/hr 1X ONCE 01/07/19 21:30 01/08/19 10:49 DC 01/07/19 21:16 75 MLS/HR Potassium Phosphate 20 mmol/ Sodium Chloride 256.6667 ml @ 62.5 mls/hr 1X ONCE 01/22/19 06:30 01/22/19 10:36 01/22/19 06:22 62.5 MLS/HR Potassium Phosphate 40 mmol/ Sodium Chloride 263.3333 ml @ 62.5 mls/hr 1X ONCE 01/21/19 21:45 01/22/19 01:57 DC 01/21/19 22:00 62.5 MLS/HR Potassium Chloride (Klor-Con) 40 meq 1X ONCE 01/09/19 09:45 01/09/19 09:46 DC 01/09/19 11:34 40 MEQ Propofol 100 ml @ 1.524 mls/ hr CONT PRN 01/08/19 09:45 01/14/19 03:56 9.147 MLS/HR Sodium Acetate 40 meq/Potassium Acetate 30 meq/ Calcium Gluconate 10 meq/ Multivitamins 10 ml/Chromium/ Copper/Manganese/ Seleni/Zn 1 ml/ Total Parenteral Nutrition/Amino Acids/Dextrose/ Fat Emulsion Intravenous 1,512 ml @ 63 mls/hr TPN CONT 01/13/19 22:00 01/14/19 21:59 DC 01/13/19 21:54 63 MLS/HR Sodium Bicarbonate (Sodium Bicarb Adult 8.4% Syr) 50 meq STK-MED ONCE 01/19/19 12:00 01/21/19 15:55 DC Sodium Chloride 30 meq/Sodium Acetate 40 meq/ Potassium Acetate 30 meq/Calcium Gluconate 10 meq/ Multivitamins 10 ml/Chromium/ Copper/Manganese/ Seleni/Zn 1 ml/ Total Parenteral Nutrition/Amino Acids/Dextrose/ Fat Emulsion Intravenous 1,512 ml @ 63 mls/hr TPN CONT 01/14/19 22:00 01/15/19 21:59 DC 01/15/19 00:05 63 MLS/HR Sodium Chloride 40 meq/Sodium Acetate 40 meq/ Calcium Gluconate 10 meq/ Multivitamins 10 ml/Chromium/ Copper/Manganese/ Seleni/Zn 1 ml/ Thiamine HCl 100 mg/Total Parenteral Nutrition/Amino Acids/Dextrose/ Fat Emulsion Intravenous 1,512 ml @ 63 mls/hr TPN CONT 01/15/19 22:00 01/16/19 21:59 DC 01/15/19 21:45 63 MLS/HR Sodium Chloride 40 meq/Sodium Acetate 40 meq/ Potassium Acetate 10 meq/Calcium Gluconate 10 meq/ Multivitamins 10 ml/Chromium/ Copper/Manganese/ Seleni/Zn 1 ml/ Thiamine HCl 100 mg/Total Parenteral Nutrition/Amino Acids/Dextrose/ Fat Emulsion Intravenous 1,512 ml @ 63 mls/hr TPN CONT 01/15/19 22:00 01/15/19 14:18 DC Sodium Chloride 40 meq/Sodium Acetate 40 meq/ Potassium Acetate 10 meq/Calcium Gluconate 10 meq/ Multivitamins 10 ml/Chromium/ Copper/Manganese/ Seleni/Zn 1 ml/ Total Parenteral Nutrition/Amino Acids/Dextrose/ Fat Emulsion Intravenous 1,512 ml @ 63 mls/hr TPN CONT 01/15/19 22:00 01/15/19 11:06 DC Sodium Chloride 60 meq/Sodium Acetate 40 meq/ Calcium Gluconate 10 meq/ Multivitamins 10 ml/Chromium/ Copper/Manganese/ Seleni/Zn 1 ml/ Thiamine HCl 100 mg/Total Parenteral Nutrition/Amino Acids/Dextrose/ Fat Emulsion Intravenous 1,512 ml @ 63 mls/hr TPN CONT 01/16/19 22:00 01/18/19 10:50 DC 01/16/19 22:00 63 MLS/HR Sodium Chloride 80 meq/Calcium Gluconate 10 meq/ Multivitamins 10 ml/Chromium/ Copper/Manganese/ Seleni/Zn 1 ml/ Thiamine HCl 100 mg/Total Parenteral Nutrition/Amino Acids/Dextrose/ Fat Emulsion Intravenous 1,200 ml @ 50 mls/hr TPN CONT 01/19/19 22:00 01/20/19 21:59 DC 01/19/19 21:30 50 MLS/HR Sodium Chloride 80 meq/Calcium Gluconate 20 meq/ Multivitamins 10 ml/Chromium/ Copper/Manganese/ Seleni/Zn 1 ml/ Thiamine HCl 100 mg/Total Parenteral Nutrition/Amino Acids/Dextrose/ Fat Emulsion Intravenous 1,200 ml @ 50 mls/hr TPN CONT 01/20/19 22:00 01/21/19 21:59 DC 01/20/19 21:43 50 MLS/HR Sodium Chloride 80 meq/Calcium Gluconate 25 meq/ Multivitamins 10 ml/Chromium/ Copper/Manganese/ Seleni/Zn 1 ml/ Thiamine HCl 100 mg/Total Parenteral Nutrition/Amino Acids/Dextrose/ Fat Emulsion Intravenous 1,512 ml @ 63 mls/hr TPN CONT 01/21/19 22:00 01/22/19 21:59 01/21/19 22:09 63 MLS/HR Sodium Phosphate 40 mmol/Dextrose 263.3333 ml @ 62.5 mls/hr 1X ONCE 01/21/19 09:00 01/21/19 13:13 DC 01/21/19 09:26 62.5 MLS/HR Succinylcholine Chloride (Anectine) 200 mg 1X ONCE 01/08/19 09:45 01/08/19 09:46 DC 01/08/19 09:41 200 MG Tramadol HCl (Ultram) 50 mg PRN Q6HRS PRN 01/08/19 09:15 Vancomycin HCl (Vanco Per Pharmacy) 1 each PRN DAILY PRN 01/07/19 21:00 01/08/19 06:39 DC 01/08/19 00:43 1 EACH Vancomycin HCl (Vancomycin Trough Level) 1 each 1X ONCE 01/09/19 09:30 01/09/19 09:31 Cancel Vancomycin HCl 1.5 gm/Sodium Chloride 500 ml @ 250 mls/hr Q12H 01/08/19 10:00 01/08/19 06:39 DC Vancomycin HCl 2 gm/Sodium Chloride 500 ml @ 250 mls/hr 1X ONCE 01/07/19 22:00 01/07/19 23:59 DC 01/07/19 22:11 250 MLS/HR Vasopressin 40 unit/Dextrose 102 ml @ 6 mls/hr CONT PRN 01/15/19 10:00 01/20/19 19:31 6 MLS/HR Vecuronium Mulino (Norcuron Bolus) 6 mg PRN Q4HRS PRN 01/08/19 12:00 01/22/19 01:19 6 MG Lab Laboratory Tests Test 01/21/19 11:46 01/21/19 12:40 01/21/19 15:30 01/21/19 16:50 Glucose (Fingerstick) 147 mg/dL (70-99) 137 mg/dL (70-99) Sodium Level 140 mmol/L (136-145) Potassium Level 3.5 mmol/L (3.5-5.1) Chloride Level 101 mmol/L (98-107) Carbon Dioxide Level 28 mmol/L (21-32) Anion Gap 11 (6-14) Blood Urea Nitrogen 41 mg/dL (8-26) Creatinine 1.2 mg/dL (0.7-1.3) Estimated GFR (Cockcroft-Gault) 67.8 Glucose Level 167 mg/dL (70-99) Calcium Level 7.7 mg/dL (8.5-10.1) Hemoglobin 7.9 g/dL (13.0-17.5) Hematocrit 23.1 % (39.0-53.0) Mean Corpuscular Hemoglobin Concent 34 g/dL (31-37) Phosphorus Level 2.5 mg/dL (2.6-4.7) Magnesium Level 1.7 mg/dL (1.8-2.4) Test 01/21/19 20:55 01/22/19 05:00 Sodium Level 140 mmol/L (136-145) 139 mmol/L (136-145) Potassium Level 3.6 mmol/L (3.5-5.1) 3.8 mmol/L (3.5-5.1) Chloride Level 101 mmol/L (98-107) 101 mmol/L (98-107) Carbon Dioxide Level 28 mmol/L (21-32) 25 mmol/L (21-32) Anion Gap 11 (6-14) 13 (6-14) Blood Urea Nitrogen 41 mg/dL (8-26) 40 mg/dL (8-26) Creatinine 1.3 mg/dL (0.7-1.3) 1.3 mg/dL (0.7-1.3) Estimated GFR (Cockcroft-Gault) 61.8 61.8 Glucose Level 131 mg/dL (70-99) 120 mg/dL (70-99) Lactic Acid Level 3.9 mmol/L (0.4-2.0) Calcium Level 8.0 mg/dL (8.5-10.1) 8.4 mg/dL (8.5-10.1) Phosphorus Level 1.5 mg/dL (2.6-4.7) 2.3 mg/dL (2.6-4.7) Magnesium Level 2.0 mg/dL (1.8-2.4) 1.8 mg/dL (1.8-2.4) White Blood Count 15.9 x10^3/uL (4.0-11.0) Red Blood Count 2.35 x10^6/uL (4.30-5.70) Hemoglobin 7.7 g/dL (13.0-17.5) Hematocrit 21.7 % (39.0-53.0) Mean Corpuscular Volume 92 fL (79-100) Mean Corpuscular Hemoglobin 33 pg (25-35) Mean Corpuscular Hemoglobin Concent 35 g/dL (31-37) Red Cell Distribution Width 17.9 % (11.5-14.5) Platelet Count 44 x10^3/uL (140-400) Neutrophils (%) (Auto) 75 % (31-73) Lymphocytes (%) (Auto) 17 % (24-48) Monocytes (%) (Auto) 7 % (0-9) Eosinophils (%) (Auto) 0 % (0-3) Basophils (%) (Auto) 0 % (0-3) Neutrophils # (Auto) 11.9 x10^3/uL (1.8-7.7) Lymphocytes # (Auto) 2.7 x10^3/uL (1.0-4.8) Monocytes # (Auto) 1.2 x10^3/uL (0.0-1.1) Eosinophils # (Auto) 0.0 x10^3/uL (0.0-0.7) Basophils # (Auto) 0.1 x10^3/uL (0.0-0.2) BUN/Creatinine Ratio 31 (6-20) Total Bilirubin 21.5 mg/dL (0.2-1.0) Aspartate Amino Transf (AST/SGOT) 192 U/L (15-37) Alanine Aminotransferase (ALT/SGPT) 62 U/L (16-63) Alkaline Phosphatase 281 U/L (46-116) Total Protein 6.0 g/dL (6.4-8.2) Albumin 3.7 g/dL (3.4-5.0) Albumin/Globulin Ratio 1.6 (1.0-1.7) Triglycerides Level 175 mg/dL (0-150) Results All relevant outside records, renal labs, imaging studies, telemetry/EKG's were reviewed. Other 1. Stable diffuse left greater than right lung infiltrate with partial left lower lobe consolidation in a small left pleural effusion. 2. Support lines and tubes, described above. GIANNI HAY MD Jan 22, 2019 09:43
[2019-01-22 10:29] LABS: FIO2 ABG 100
--- NOTE | 2019-01-22 10:33 | PDOC ---
PROGRESS NOTES Chief Complaint Chief Complaint Acute respiratory falure, IPPV - 01.08, fluid overload vs Atypical infection VS ARDS from aspiration HEMATEMESIS in A HEAVY DRINKER -Atrophic gastritis, ?MW tear BUT NO ACTIVE GIB - s.po STAT EGD 01/08 SEVERE PCM - albumin 1,7 -s/p albumin 01/09 - off pressors by 01/10 MInimal ascites - by US and CT HYPOTENSION, s/p, pressors standby, albumin, blood products if needed Coagulopathy - s/p vit K, HEPATIC enceph - ammonia midly high 60-90s - lactulose,GA HIGH residuals TRAMSAMINITIS with ELEVATED TB- per GI (TB 9), AST 300s-500s HEp C antibody positive LEft leg bruise, in this coagulopathic anemic pt sec to fall 2 weeks ago - monitor ELEVATED AGAP acidosis NEw ESRD HD - Sat before ? DIC Acute precip drop hgb 01/21 History of Present Illness History of Present Illness DAy 15 hospital stay same, d dimer high, INR stablehugh - low fibrinogen s.p vit K and cryo - heme on con board On empiric abx per iDOver all guarded prog, pressor NEw HD no UO Precedex etc with high vent settings, not ready for trach Full code ECho ok Anasarca, low albumin Platelets dropping off DVT ppx, just SCDs s/p prcb transfusion for acute precip drop hgb, had hematemesis on arrival, GI, stat egd done on admit etc needed to start CRRT Sat before NO UO Waking up some, recognizes TPN, ileus etc so cant do TFs - BS ok NO uncontrollable hypernatremia so far LAst BM saturday - CANT TURN< desats, hypotension took him a whole 24 hr to recover from that at bedside, explained to her, crying, poor prognosis Still full code PLAN: Awaiting the rest fo DIC and PF4 to r.o HIT panel OVER AL PRG GRIM, LOTS OF MEDICAL ISSUES HIGH VENT, LOW BP< LOW ALBUMIN< NO UO CRRT per renal Abx per ID TPN for now maintain esteves On dvt and ppi ppx NOt ready for trach yet, high O2 and pEEP LTAC screen Off oac for now, bec og FOBT positive, anemia, dropping plateelts etc - SO ALSO HIGH RSK FRO THROMBOSIS Daily labs dw family members at bedside Critically ill Vitals Vitals Vital Signs Date Time Temp Pulse Resp B/P (MAP) Pulse Ox O2 Delivery O2 Flow Rate FiO2 01/22/19 10:07 100 Ventilator 01/22/19 10:00 99 24 121/60 (80) 01/22/19 08:00 97.4 97.4 Physical Exam Physical Exam GENERAL: Orally intubated and sedated, CRRT HEENT: Icteric, Pupils equal, ETT and OGT LUNGS: Right-sided rhonchi HEART: S1 S2 regular ABDOMEN: Obese, distended,hypoactive BS : - Esteves EXTREMITIES:gen edema, LLE ecchymosis. SKIN: warm to touch , ecchymotic lesion on the back NEUROLOGIC: Sedated RIJ and Temp RIJ/HDC (01/13) clean PIV General: Other (tachypneic 30s) Heart: Regular rate, Normal S1, Normal S2 Lungs: Other (coarse bs bilaterally) Abdomen: Soft, No tenderness, Other (pot belly possible fluid wave) Extremities: No clubbing, No cyanosis, Normal pulses, Other (left leg is bruised from a fall 2-3 weeks ago) Labs LABS Laboratory Tests Test 01/21/19 11:46 01/21/19 12:40 01/21/19 15:30 01/21/19 16:50 Glucose (Fingerstick) 147 mg/dL (70-99) 137 mg/dL (70-99) Sodium Level 140 mmol/L (136-145) Potassium Level 3.5 mmol/L (3.5-5.1) Chloride Level 101 mmol/L (98-107) Carbon Dioxide Level 28 mmol/L (21-32) Anion Gap 11 (6-14) Blood Urea Nitrogen 41 mg/dL (8-26) Creatinine 1.2 mg/dL (0.7-1.3) Estimated GFR (Cockcroft-Gault) 67.8 Glucose Level 167 mg/dL (70-99) Calcium Level 7.7 mg/dL (8.5-10.1) Hemoglobin 7.9 g/dL (13.0-17.5) Hematocrit 23.1 % (39.0-53.0) Mean Corpuscular Hemoglobin Concent 34 g/dL (31-37) Phosphorus Level 2.5 mg/dL (2.6-4.7) Magnesium Level 1.7 mg/dL (1.8-2.4) Test 01/21/19 20:55 01/22/19 05:00 01/22/19 08:00 01/22/19 09:15 Sodium Level 140 mmol/L (136-145) 139 mmol/L (136-145) Potassium Level 3.6 mmol/L (3.5-5.1) 3.8 mmol/L (3.5-5.1) Chloride Level 101 mmol/L (98-107) 101 mmol/L (98-107) Carbon Dioxide Level 28 mmol/L (21-32) 25 mmol/L (21-32) Anion Gap 11 (6-14) 13 (6-14) Blood Urea Nitrogen 41 mg/dL (8-26) 40 mg/dL (8-26) Creatinine 1.3 mg/dL (0.7-1.3) 1.3 mg/dL (0.7-1.3) Estimated GFR (Cockcroft-Gault) 61.8 61.8 Glucose Level 131 mg/dL (70-99) 120 mg/dL (70-99) Lactic Acid Level 3.9 mmol/L (0.4-2.0) 4.0 mmol/L (0.4-2.0) Calcium Level 8.0 mg/dL (8.5-10.1) 8.4 mg/dL (8.5-10.1) Phosphorus Level 1.5 mg/dL (2.6-4.7) 2.3 mg/dL (2.6-4.7) Magnesium Level 2.0 mg/dL (1.8-2.4) 1.8 mg/dL (1.8-2.4) White Blood Count 15.9 x10^3/uL (4.0-11.0) Red Blood Count 2.35 x10^6/uL (4.30-5.70) Hemoglobin 7.7 g/dL (13.0-17.5) Hematocrit 21.7 % (39.0-53.0) Mean Corpuscular Volume 92 fL (79-100) Mean Corpuscular Hemoglobin 33 pg (25-35) Mean Corpuscular Hemoglobin Concent 35 g/dL (31-37) Red Cell Distribution Width 17.9 % (11.5-14.5) Platelet Count 44 x10^3/uL (140-400) Neutrophils (%) (Auto) 75 % (31-73) Lymphocytes (%) (Auto) 17 % (24-48) Monocytes (%) (Auto) 7 % (0-9) Eosinophils (%) (Auto) 0 % (0-3) Basophils (%) (Auto) 0 % (0-3) Neutrophils # (Auto) 11.9 x10^3/uL (1.8-7.7) Lymphocytes # (Auto) 2.7 x10^3/uL (1.0-4.8) Monocytes # (Auto) 1.2 x10^3/uL (0.0-1.1) Eosinophils # (Auto) 0.0 x10^3/uL (0.0-0.7) Basophils # (Auto) 0.1 x10^3/uL (0.0-0.2) BUN/Creatinine Ratio 31 (6-20) Total Bilirubin 21.5 mg/dL (0.2-1.0) Aspartate Amino Transf (AST/SGOT) 192 U/L (15-37) Alanine Aminotransferase (ALT/SGPT) 62 U/L (16-63) Alkaline Phosphatase 281 U/L (46-116) Total Protein 6.0 g/dL (6.4-8.2) Albumin 3.7 g/dL (3.4-5.0) Albumin/Globulin Ratio 1.6 (1.0-1.7) Triglycerides Level 175 mg/dL (0-150) O2 Saturation 96 % (92-99) Arterial Blood pH 7.45 (7.35-7.45) Arterial Blood pCO2 at Patient Temp 33 mmHg (35-46) Arterial Blood pO2 at Patient Temp 87 mmHg (85-108) Arterial Blood HCO3 22 mmol/L (21-28) Arterial Blood Base Excess -2 mmol/L (-3-3) FiO2 100 Review of Systems Review of Systems intubated sedated Assessment and Plan Assessmemt and Plan Problems Medical Problems: (1) Acute hepatic encephalopathy Status: Acute (2) Acute upper GI bleed Status: Acute (3) Ascites Status: Acute (4) Hypokalemia Status: Acute (5) Multiple organ system failure Status: Acute (6) Severe sepsis with acute organ dysfunction Status: Acute Comment Review of Relevant I have reviewed the following items karen (where applicable) has been applied. Labs Laboratory Tests Test 01/20/19 13:07 01/20/19 15:04 01/20/19 17:16 01/20/19 21:00 Sodium Level 143 mmol/L (136-145) 142 mmol/L (136-145) Potassium Level 4.0 mmol/L (3.5-5.1) 4.3 mmol/L (3.5-5.1) Chloride Level 102 mmol/L (98-107) 102 mmol/L (98-107) Carbon Dioxide Level 29 mmol/L (21-32) 28 mmol/L (21-32) Anion Gap 12 (6-14) 12 (6-14) Blood Urea Nitrogen 41 mg/dL (8-26) 46 mg/dL (8-26) Creatinine 1.3 mg/dL (0.7-1.3) 1.2 mg/dL (0.7-1.3) Estimated GFR (Cockcroft-Gault) 61.8 67.8 Glucose Level 168 mg/dL (70-99) 165 mg/dL (70-99) Calcium Level 7.2 mg/dL (8.5-10.1) 7.4 mg/dL (8.5-10.1) Phosphorus Level 1.3 mg/dL (2.6-4.7) 2.7 mg/dL (2.6-4.7) Magnesium Level 1.8 mg/dL (1.8-2.4) 1.9 mg/dL (1.8-2.4) Fibrinogen 111 mg/dL (200-440) Glucose (Fingerstick) 154 mg/dL (70-99) Activated Partial Thromboplast Time 36 SEC (24-38) Lactic Acid Level 3.3 mmol/L (0.4-2.0) Iron Level 84 ug/dL (65-175) Total Iron Binding Capacity 69 ug/dL (250-450) Iron Saturation % (15-34) Ferritin 605 ng/mL (26-388) Test 01/21/19 05:00 01/21/19 07:50 01/21/19 09:00 01/21/19 11:46 White Blood Count 11.9 x10^3/uL (4.0-11.0) Red Blood Count 2.06 x10^6/uL (4.30-5.70) Hemoglobin 6.8 g/dL (13.0-17.5) Hematocrit 19.8 % (39.0-53.0) Mean Corpuscular Volume 96 fL (79-100) Mean Corpuscular Hemoglobin 33 pg (25-35) Mean Corpuscular Hemoglobin Concent 34 g/dL (31-37) Red Cell Distribution Width 18.8 % (11.5-14.5) Platelet Count 27 x10^3/uL (140-400) Neutrophils (%) (Auto) 73 % (31-73) Lymphocytes (%) (Auto) 17 % (24-48) Monocytes (%) (Auto) 9 % (0-9) Eosinophils (%) (Auto) 0 % (0-3) Basophils (%) (Auto) 1 % (0-3) Neutrophils # (Auto) 8.7 x10^3/uL (1.8-7.7) Lymphocytes # (Auto) 2.0 x10^3/uL (1.0-4.8) Monocytes # (Auto) 1.1 x10^3/uL (0.0-1.1) Eosinophils # (Auto) 0.0 x10^3/uL (0.0-0.7) Basophils # (Auto) 0.1 x10^3/uL (0.0-0.2) Prothrombin Time 21.6 SEC (11.7-14.0) Prothromb Time International Ratio 1.9 (0.8-1.1) Sodium Level 140 mmol/L (136-145) Potassium Level 3.7 mmol/L (3.5-5.1) Chloride Level 102 mmol/L (98-107) Carbon Dioxide Level 27 mmol/L (21-32) Anion Gap 11 (6-14) Blood Urea Nitrogen 44 mg/dL (8-26) Creatinine 1.2 mg/dL (0.7-1.3) Estimated GFR (Cockcroft-Gault) 67.8 BUN/Creatinine Ratio 37 (6-20) Glucose Level 186 mg/dL (70-99) Calcium Level 7.6 mg/dL (8.5-10.1) Phosphorus Level 1.9 mg/dL (2.6-4.7) Magnesium Level 1.8 mg/dL (1.8-2.4) Total Bilirubin 19.1 mg/dL (0.2-1.0) Aspartate Amino Transf (AST/SGOT) 178 U/L (15-37) Alanine Aminotransferase (ALT/SGPT) 58 U/L (16-63) Alkaline Phosphatase 226 U/L (46-116) Total Protein 6.2 g/dL (6.4-8.2) Albumin 3.6 g/dL (3.4-5.0) Albumin/Globulin Ratio 1.4 (1.0-1.7) O2 Saturation 98 % (92-99) Arterial Blood pH 7.39 (7.35-7.45) Arterial Blood pCO2 at Patient Temp 41 mmHg (35-46) Arterial Blood pO2 at Patient Temp 109 mmHg (85-108) Arterial Blood HCO3 24 mmol/L (21-28) Arterial Blood Base Excess -1 mmol/L (-3-3) FiO2 100 Lactic Acid Level 3.6 mmol/L (0.4-2.0) Glucose (Fingerstick) 147 mg/dL (70-99) Test 01/21/19 12:40 01/21/19 15:30 01/21/19 16:50 01/21/19 20:55 Sodium Level 140 mmol/L (136-145) 140 mmol/L (136-145) Potassium Level 3.5 mmol/L (3.5-5.1) 3.6 mmol/L (3.5-5.1) Chloride Level 101 mmol/L (98-107) 101 mmol/L (98-107) Carbon Dioxide Level 28 mmol/L (21-32) 28 mmol/L (21-32) Anion Gap 11 (6-14) 11 (6-14) Blood Urea Nitrogen 41 mg/dL (8-26) 41 mg/dL (8-26) Creatinine 1.2 mg/dL (0.7-1.3) 1.3 mg/dL (0.7-1.3) Estimated GFR (Cockcroft-Gault) 67.8 61.8 Glucose Level 167 mg/dL (70-99) 131 mg/dL (70-99) Calcium Level 7.7 mg/dL (8.5-10.1) 8.0 mg/dL (8.5-10.1) Hemoglobin 7.9 g/dL (13.0-17.5) Hematocrit 23.1 % (39.0-53.0) Mean Corpuscular Hemoglobin Concent 34 g/dL (31-37) Phosphorus Level 2.5 mg/dL (2.6-4.7) 1.5 mg/dL (2.6-4.7) Magnesium Level 1.7 mg/dL (1.8-2.4) 2.0 mg/dL (1.8-2.4) Glucose (Fingerstick) 137 mg/dL (70-99) Lactic Acid Level 3.9 mmol/L (0.4-2.0) Test 01/22/19 05:00 01/22/19 08:00 01/22/19 09:15 White Blood Count 15.9 x10^3/uL (4.0-11.0) Red Blood Count 2.35 x10^6/uL (4.30-5.70) Hemoglobin 7.7 g/dL (13.0-17.5) Hematocrit 21.7 % (39.0-53.0) Mean Corpuscular Volume 92 fL (79-100) Mean Corpuscular Hemoglobin 33 pg (25-35) Mean Corpuscular Hemoglobin Concent 35 g/dL (31-37) Red Cell Distribution Width 17.9 % (11.5-14.5) Platelet Count 44 x10^3/uL (140-400) Neutrophils (%) (Auto) 75 % (31-73) Lymphocytes (%) (Auto) 17 % (24-48) Monocytes (%) (Auto) 7 % (0-9) Eosinophils (%) (Auto) 0 % (0-3) Basophils (%) (Auto) 0 % (0-3) Neutrophils # (Auto) 11.9 x10^3/uL (1.8-7.7) Lymphocytes # (Auto) 2.7 x10^3/uL (1.0-4.8) Monocytes # (Auto) 1.2 x10^3/uL (0.0-1.1) Eosinophils # (Auto) 0.0 x10^3/uL (0.0-0.7) Basophils # (Auto) 0.1 x10^3/uL (0.0-0.2) Sodium Level 139 mmol/L (136-145) Potassium Level 3.8 mmol/L (3.5-5.1) Chloride Level 101 mmol/L (98-107) Carbon Dioxide Level 25 mmol/L (21-32) Anion Gap 13 (6-14) Blood Urea Nitrogen 40 mg/dL (8-26) Creatinine 1.3 mg/dL (0.7-1.3) Estimated GFR (Cockcroft-Gault) 61.8 BUN/Creatinine Ratio 31 (6-20) Glucose Level 120 mg/dL (70-99) Calcium Level 8.4 mg/dL (8.5-10.1) Phosphorus Level 2.3 mg/dL (2.6-4.7) Magnesium Level 1.8 mg/dL (1.8-2.4) Total Bilirubin 21.5 mg/dL (0.2-1.0) Aspartate Amino Transf (AST/SGOT) 192 U/L (15-37) Alanine Aminotransferase (ALT/SGPT) 62 U/L (16-63) Alkaline Phosphatase 281 U/L (46-116) Total Protein 6.0 g/dL (6.4-8.2) Albumin 3.7 g/dL (3.4-5.0) Albumin/Globulin Ratio 1.6 (1.0-1.7) Triglycerides Level 175 mg/dL (0-150) O2 Saturation 96 % (92-99) Arterial Blood pH 7.45 (7.35-7.45) Arterial Blood pCO2 at Patient Temp 33 mmHg (35-46) Arterial Blood pO2 at Patient Temp 87 mmHg (85-108) Arterial Blood HCO3 22 mmol/L (21-28) Arterial Blood Base Excess -2 mmol/L (-3-3) FiO2 100 Lactic Acid Level 4.0 mmol/L (0.4-2.0) Laboratory Tests Test 01/21/19 11:46 01/21/19 12:40 01/21/19 15:30 01/21/19 16:50 Glucose (Fingerstick) 147 mg/dL (70-99) 137 mg/dL (70-99) Sodium Level 140 mmol/L (136-145) Potassium Level 3.5 mmol/L (3.5-5.1) Chloride Level 101 mmol/L (98-107) Carbon Dioxide Level 28 mmol/L (21-32) Anion Gap 11 (6-14) Blood Urea Nitrogen 41 mg/dL (8-26) Creatinine 1.2 mg/dL (0.7-1.3) Estimated GFR (Cockcroft-Gault) 67.8 Glucose Level 167 mg/dL (70-99) Calcium Level 7.7 mg/dL (8.5-10.1) Hemoglobin 7.9 g/dL (13.0-17.5) Hematocrit 23.1 % (39.0-53.0) Mean Corpuscular Hemoglobin Concent 34 g/dL (31-37) Phosphorus Level 2.5 mg/dL (2.6-4.7) Magnesium Level 1.7 mg/dL (1.8-2.4) Test 01/21/19 20:55 01/22/19 05:00 01/22/19 08:00 01/22/19 09:15 Sodium Level 140 mmol/L (136-145) 139 mmol/L (136-145) Potassium Level 3.6 mmol/L (3.5-5.1) 3.8 mmol/L (3.5-5.1) Chloride Level 101 mmol/L (98-107) 101 mmol/L (98-107) Carbon Dioxide Level 28 mmol/L (21-32) 25 mmol/L (21-32) Anion Gap 11 (6-14) 13 (6-14) Blood Urea Nitrogen 41 mg/dL (8-26) 40 mg/dL (8-26) Creatinine 1.3 mg/dL (0.7-1.3) 1.3 mg/dL (0.7-1.3) Estimated GFR (Cockcroft-Gault) 61.8 61.8 Glucose Level 131 mg/dL (70-99) 120 mg/dL (70-99) Lactic Acid Level 3.9 mmol/L (0.4-2.0) 4.0 mmol/L (0.4-2.0) Calcium Level 8.0 mg/dL (8.5-10.1) 8.4 mg/dL (8.5-10.1) Phosphorus Level 1.5 mg/dL (2.6-4.7) 2.3 mg/dL (2.6-4.7) Magnesium Level 2.0 mg/dL (1.8-2.4) 1.8 mg/dL (1.8-2.4) White Blood Count 15.9 x10^3/uL (4.0-11.0) Red Blood Count 2.35 x10^6/uL (4.30-5.70) Hemoglobin 7.7 g/dL (13.0-17.5) Hematocrit 21.7 % (39.0-53.0) Mean Corpuscular Volume 92 fL (79-100) Mean Corpuscular Hemoglobin 33 pg (25-35) Mean Corpuscular Hemoglobin Concent 35 g/dL (31-37) Red Cell Distribution Width 17.9 % (11.5-14.5) Platelet Count 44 x10^3/uL (140-400) Neutrophils (%) (Auto) 75 % (31-73) Lymphocytes (%) (Auto) 17 % (24-48) Monocytes (%) (Auto) 7 % (0-9) Eosinophils (%) (Auto) 0 % (0-3) Basophils (%) (Auto) 0 % (0-3) Neutrophils # (Auto) 11.9 x10^3/uL (1.8-7.7) Lymphocytes # (Auto) 2.7 x10^3/uL (1.0-4.8) Monocytes # (Auto) 1.2 x10^3/uL (0.0-1.1) Eosinophils # (Auto) 0.0 x10^3/uL (0.0-0.7) Basophils # (Auto) 0.1 x10^3/uL (0.0-0.2) BUN/Creatinine Ratio 31 (6-20) Total Bilirubin 21.5 mg/dL (0.2-1.0) Aspartate Amino Transf (AST/SGOT) 192 U/L (15-37) Alanine Aminotransferase (ALT/SGPT) 62 U/L (16-63) Alkaline Phosphatase 281 U/L (46-116) Total Protein 6.0 g/dL (6.4-8.2) Albumin 3.7 g/dL (3.4-5.0) Albumin/Globulin Ratio 1.6 (1.0-1.7) Triglycerides Level 175 mg/dL (0-150) O2 Saturation 96 % (92-99) Arterial Blood pH 7.45 (7.35-7.45) Arterial Blood pCO2 at Patient Temp 33 mmHg (35-46) Arterial Blood pO2 at Patient Temp 87 mmHg (85-108) Arterial Blood HCO3 22 mmol/L (21-28) Arterial Blood Base Excess -2 mmol/L (-3-3) FiO2 100 Microbiology 01/15/19 - Final, Complete 01/15/19 - Final, Complete 01/15/19 - Final, Complete 01/15/19 Gram Stain Evaluation - Final, Complete 01/15/19 Sputum Culture - Final, Complete 01/15/19 Sputum Result 1 - Final, Complete 01/14/19 Blood Culture - Final, Complete NO GROWTH AFTER 5 DAYS 01/08/19 Urine Culture - Final, Complete 01/08/19 Urine Culture Result 1 (ELMA) - Final, Complete Medications Current Medications Sodium Chloride 1,000 ml @ 1,000 mls/hr 1X ONCE IV Last administered on 01/07/19at 19:27; Start 01/07/19 at 19:30; Stop 01/07/19 at 20:29; Status DC Ondansetron HCl (Zofran) 4 mg 1X ONCE IV Last administered on 01/07/19at 19:28; Start 01/07/19 at 19:30; Stop 01/07/19 at 19:31; Status DC Pantoprazole Sodium (PROTONIX VIAL for IV PUSH) 80 mg 1X ONCE IVP Last administered on 01/07/19at 19:50; Start 01/07/19 at 20:00; Stop 01/07/19 at 20:01; Status DC Pantoprazole Sodium 80 mg/ Sodium Chloride 100 ml @ 10 mls/hr 1X ONCE IV Last administered on 01/07/19at 20:00; Start 01/07/19 at 20:00; Stop 01/08/19 at 05:59; Status DC Sodium Chloride 1,000 ml @ 1,000 mls/hr 1X ONCE IV Last administered on 01/07/19at 22:12; Start 01/07/19 at 21:00; Stop 01/07/19 at 21:59; Status DC Sodium Chloride 1,000 ml @ 1,000 mls/hr 1X ONCE IV Last administered on 12/20 at 20:40; Start 01/07/19 at 20:45; Stop 01/07/19 at 21:44; Status DC Potassium Chloride/Sodium Chloride 1,000 ml @ 75 mls/hr 1X ONCE IV Last administered on 01/07/19at 21:16; Start 01/07/19 at 21:30; Stop 01/08/19 at 10:49; Status DC Vancomycin HCl (Vanco Per Pharmacy) 1 each PRN DAILY PRN MC SEE COMMENTS Last administered on 01/08/19at 00:43; Start 01/07/19 at 21:00; Stop 01/08/19 at 06:39; Status DC Piperacillin Sod/ Tazobactam Sod (Zosyn Per Pharmacy) 1 each PRN DAILY PRN MC SEE COMMENTS; Start 01/07/19 at 21:00; Stop 01/18/19 at 12:16; Status DC Piperacillin Sod/ Tazobactam Sod 3.375 gm/Sodium Chloride 50 ml @ 100 mls/hr Q6HRS IV Last administered on 01/18/19at 05:54; Start 01/07/19 at 22:00; Stop 01/18/19 at 12:16; Status DC Vancomycin HCl 2 gm/Sodium Chloride 500 ml @ 250 mls/hr 1X ONCE IV Last administered on 01/07/19at 22:11; Start 01/07/19 at 22:00; Stop 01/07/19 at 23:59; Status DC Lorazepam (Ativan Inj) 1 mg 1X ONCE IV Last administered on 01/07/19at 23:22; Start 01/07/19 at 23:30; Stop 01/07/19 at 23:31; Status DC Lorazepam (Ativan Inj) 2 mg STK-MED ONCE .ROUTE ; Start 01/07/19 at 23:20; Stop 01/07/19 at 23:21; Status DC Vancomycin HCl 1.5 gm/Sodium Chloride 500 ml @ 250 mls/hr Q12H IV ; Start 01/08/19 at 10:00; Stop 01/08/19 at 06:39; Status DC Vancomycin HCl (Vancomycin Trough Level) 1 each 1X ONCE MC ; Start 01/09/19 at 09:30; Stop 01/09/19 at 09:31; Status Cancel Ondansetron HCl (Zofran) 4 mg PRN Q6HRS PRN IVP NAUSEA/VOMITING; Start 01/08/19 at 04:00; Status Cancel Pantoprazole Sodium 80 mg/ Sodium Chloride 100 ml @ 10 mls/hr Q10H IV Last administered on 01/09/19at 02:00; Start 01/08/19 at 06:00; Stop 01/09/19 at 11:00; Status DC Multivitamins 10 ml/Thiamine HCl 100 mg/Folic Acid 1 mg/Sodium Chloride 1,011.2 ml @ 100 mls/ hr DAILY IV Last administered on 01/12/19at 10:29; Start 01/08/19 at 09:00; Stop 01/12/19 at 19:07; Status DC Lorazepam (Ativan Inj) 2 mg PRN Q1HR PRN IV For CIWA 8-14 Last administered on 01/14/19at 21:01; Start 01/08/19 at 07:15 Lorazepam (Ativan Inj) 4 mg PRN Q1HR PRN IV For CIWA 15 or greater Last administered on 01/15/19at 08:40; Start 01/08/19 at 07:15 Haloperidol Lactate (Haldol Inj) 5 mg PRN Q4HRS PRN IVP Hallucinatns,Confusn,Delirium; Start 01/08/19 at 07:15 Diphenhydramine HCl (Benadryl) 25 mg PRN Q15MIN PRN IVP EPS symptoms 2'Haldol admin; Start 01/08/19 at 07:15 Clonidine HCl (Catapres) 0.1 mg PRN Q1HR PRN PO SBP > 180 or DBP > 100, MRX3; Start 01/08/19 at 07:15 Sodium Bicarbonate (Sodium Bicarb Adult 8.4% Syr) 50 meq 1X ONCE IV Last administered on 01/08/19at 08:04; Start 01/08/19 at 08:00; Stop 01/08/19 at 08:01; Status DC Propofol 100 ml @ As Directed STK-MED ONCE IV ; Start 01/08/19 at 08:19; Stop 01/08/19 at 08:19; Status DC Succinylcholine Chloride (Anectine) 200 mg STK-MED ONCE .ROUTE ; Start 01/08/19 at 08:19; Stop 01/08/19 at 08:19; Status DC Propofol 100 ml @ As Directed STK-MED ONCE IV ; Start 01/08/19 at 08:29; Stop 01/08/19 at 08:30; Status DC Fentanyl Citrate 30 ml @ 0 mls/hr CONT PRN PRN IV PER PROTOCOL Last administered on 01/22/19at 07:45; Start 01/08/19 at 09:00 Naloxone HCl (Narcan) 0.4 mg PRN Q2MIN PRN IV SEE INSTRUCTIONS; Start 01/08/19 at 09:00 Sodium Chloride 1,000 ml @ 25 mls/hr Q24H IV Last administered on 01/21/19at 11:05; Start 01/08/19 at 08:54 Fentanyl Citrate (Fentanyl 2ml Vial) 100 mcg STK-MED ONCE .ROUTE ; Start 01/08/19 at 08:55; Stop 01/08/19 at 08:55; Status DC Octreotide Acetate 500 mcg/ Sodium Chloride 101 ml @ 0 mls/hr CONT PRN IV SEE I/O RECORD Last administered on 01/08/19at 13:56; Start 01/08/19 at 09:00; Stop 01/08/19 at 16:55; Status DC Phytonadione (Vitamin K Ampule) 10 mg 1X ONCE SQ Last administered on 01/08/19at 09:56; Start 01/08/19 at 09:15; Stop 01/08/19 at 09:16; Status DC Metoclopramide HCl (Reglan Vial) 10 mg 1X ONCE IVP Last administered on 01/08/19at 14:36; Start 01/08/19 at 11:00; Stop 01/08/19 at 11:01; Status DC Midazolam HCl (Versed) 5 mg STK-MED ONCE .ROUTE ; Start 01/08/19 at 09:00; Stop 01/08/19 at 09:01; Status DC Acetaminophen (Tylenol) 500 mg PRN Q6HRS PRN PO MILD PAIN / TEMP Last administered on 01/11/19at 17:46; Start 01/08/19 at 09:15; Stop 01/13/19 at 09:11; Status DC Tramadol HCl (Ultram) 50 mg PRN Q6HRS PRN PO PAIN MODERATE; Start 01/08/19 at 09:15 Morphine Sulfate (Morphine Sulfate) 2 mg PRN Q2HR PRN IV PAIN; Start 01/08/19 at 09:15 Ondansetron HCl (Zofran) 4 mg PRN Q6HRS PRN IVP NAUSEA/VOMITING, 1ST CHOICE; Start 01/08/19 at 09:15 Fentanyl Citrate (Fentanyl 2ml Vial) 100 mcg 1X ONCE IVP Last administered on 01/08/19at 09:42; Start 01/08/19 at 09:45; Stop 01/08/19 at 09:46; Status DC Midazolam HCl (Versed) 5 mg 1X ONCE IV Last administered on 01/08/19at 09:41; Start 01/08/19 at 09:45; Stop 01/08/19 at 09:46; Status DC Succinylcholine Chloride (Anectine) 200 mg 1X ONCE IV Last administered on 01/08/19at 09:41; Start 01/08/19 at 09:45; Stop 01/08/19 at 09:46; Status DC Propofol 100 ml @ 1.524 mls/ hr CONT PRN IV SEE I/O RECORD Last administered on 01/14/19at 03:56; Start 01/08/19 at 09:45 Midazolam HCl 100 ml @ 5 mls/hr CONT PRN IV SEE I/O RECORD Last administered on 01/21/19at 21:59; Start 01/08/19 at 11:15 Vecuronium Jolon (Norcuron Bolus) 6 mg PRN Q4HRS PRN IV VENT ASYNCHRONY Last administered on 01/22/19at 01:19; Start 01/08/19 at 12:00 Benzocaine (Hurricaine One) 2 spray STK-MED ONCE .ROUTE ; Start 01/07/19 at 12:00; Stop 01/08/19 at 14:20; Status DC Lidocaine HCl (Xylocaine 2% Topical 5gm Tube) 5 amanda STK-MED ONCE TP ; Start 01/07/19 at 12:00; Stop 01/08/19 at 14:20; Status DC Lactobacillus Rhamnosus (Culturelle) 1 cap BID PO ; Start 01/08/19 at 21:00; Stop 01/09/19 at 09:29; Status DC Acetaminophen (Tylenol Supp) 650 mg PRN Q6HRS PRN GA MILD PAIN / TEMP Last administered on 01/09/19at 23:44; Start 01/08/19 at 18:15 Norepinephrine Bitartrate 250 ml @ 18.938 mls/ hr CONT PRN IV SEE I/O RECORD Last administered on 01/19/19 06:31; Start 01/09/19 at 01:45; Stop 01/19/19 at 11:30; Status DC Potassium Chloride (Klor-Con) 40 meq 1X ONCE PO Last administered on 01/09/19 11:34; Start 01/09/19 at 09:45; Stop 01/09/19 at 09:46; Status DC Metoclopramide HCl (Reglan Vial) 10 mg PRN Q6HRS PRN IVP NAUSEA/VOMITING, 2ND CHOICE Last administered on 01/14/19 21:01; Start 01/09/19 at 10:15 Albumin Human 100 ml @ 100 mls/hr 1X ONCE IV Last administered on 01/09/19 10:49; Start 01/09/19 at 10:15; Stop 01/09/19 at 11:14; Status DC Lactulose (LACTULOSE 300ML for RECTAL) 200 gm Q6HRS GA ; Start 01/09/19 at 12:00; Stop 01/09/19 at 11:04; Status DC Insulin Human Lispro (HumaLOG) 0-9 UNITS TIDWMEALS SQ Last administered on 01/21/19 08:00; Start 01/09/19 at 12:00 Dextrose (Dextrose 50%-Water Syringe) 12.5 gm PRN Q15MIN PRN IV SEE COMMENTS Last administered on 01/18/19at 22:35; Start 01/09/19 at 10:30 Fentanyl Citrate (Fentanyl 600 Mcg/30 ml [employer]) 600 mcg STK-MED ONCE IV ; Start 01/08/19 at 15:25; Stop 01/09/19 at 10:27; Status DC Pantoprazole Sodium (PROTONIX VIAL for IV PUSH) 40 mg DAILYAC IVP Last administered on 01/22/19 07:56; Start 01/10/19 at 07:30 Lactulose (Lactulose) 20 gm DAILY PO Last administered on 01/12/19 08:24; Start 01/09/19 at 11:30; Stop 01/12/19 at 10:12; Status DC Potassium Bicarbonate (Potassium Effervescent Tablet) 40 meq BIDWMEALS FT Last administered on 01/10/19 17:49; Start 01/10/19 at 09:00; Stop 01/11/19 at 09:20; Status DC Linezolid/Dextrose 300 ml @ 300 mls/hr Q12HR IV Last administered on 03/18/18at 08:26; Start 01/11/19 at 13:00; Stop 01/16/19 at 08:29; Status DC Perflutren Protein Type A Microsphe (Optison) 0.66 mg 1X ONCE IV ; Start 01/11/19 at 13:30; Stop 01/11/19 at 13:31; Status DC Albumin Human 100 ml @ 100 mls/hr 1X ONCE IV Last administered on 01/12/19at 08:25; Start 01/12/19 at 07:45; Stop 01/12/19 at 08:44; Status DC Lactulose (Lactulose) 20 gm PRN DAILY PRN PO constipation; Start 01/12/19 at 10:15; Stop 01/13/19 at 09:11; Status DC Acetaminophen (Tylenol) 650 mg PRN Q6HRS PRN PEG MILD PAIN / TEMP Last administered on 01/14/19at 09:11; Start 01/12/19 at 16:30 Lactulose (Lactulose) 20 gm TID PO Last administered on 01/14/19at 21:01; Start 01/13/19 at 10:00 Albumin Human 500 ml @ 125 mls/hr 1X ONCE IV Last administered on 01/13/19at 09:40; Start 01/13/19 at 10:00; Stop 01/13/19 at 13:59; Status DC Bisacodyl (Dulcolax Supp) 10 mg 1X ONCE GA Last administered on 01/13/19at 10:14; Start 01/13/19 at 11:00; Stop 01/13/19 at 11:01; Status DC Lidocaine HCl (Buffered Lidocaine 1%) 3 ml 1X ONCE INJ Last administered on 01/13/19at 11:00; Start 01/13/19 at 11:00; Stop 01/13/19 at 11:01; Status DC Heparin Sodium (Porcine) (Heparin Sodium) 10,000 unit STK-MED ONCE .ROUTE ; Start 01/13/19 at 10:59; Stop 01/13/19 at 11:00; Status DC Darbepoetin Giorgi (ARANESP for DIALYSIS PTS) 60 mcg [id number] SQ Last administered on 12/3/19at 21:43; Start 01/13/19 at 21:00 Info (Tpn Per Pharmacy) 1 each PRN DAILY PRN MC SEE COMMENTS Last administered on 01/21/19at 13:27; Start 01/13/19 at 11:15 Sodium Chloride 1,000 ml @ 1,000 mls/hr Q1H PRN IV hypotension; Start 01/13/19 at 11:30; Stop 01/13/19 at 19:00; Status DC Albumin Human 200 ml @ 200 mls/hr 1X PRN PRN IV Hypotension; Start 01/13/19 at 11:30; Stop 01/13/19 at 17:29; Status DC Sodium Chloride 1,000 ml @ 400 mls/hr Q2H30M PRN IV PATENCY; Start 01/13/19 at 11:30; Stop 01/13/19 at 19:00; Status DC Info (PHARMACY MONITORING -- do not chart) 1 each PRN DAILY PRN MC SEE COMMENTS; Start 01/13/19 at 11:30 Info (PHARMACY MONITORING -- do not chart) 1 each PRN DAILY PRN MC SEE COMMENTS; Start 01/13/19 at 11:30; Status UNV Sodium Acetate 40 meq/Potassium Acetate 30 meq/ Calcium Gluconate 10 meq/ Multivitamins 10 ml/Chromium/ Copper/Manganese/ Seleni/Zn 1 ml/ Total Parenteral Nutrition/Amino Acids/Dextrose/ Fat Emulsion Intravenous 1,512 ml @ 63 mls/hr TPN CONT IV Last administered on 01/13/19at 21:54; Start 01/13/19 at 22:00; Stop 01/14/19 at 21:59; Status DC Multi-Ingred Cream/Lotion/Oil/ Oint (Artificial Tears Eye Ointment) 1 amanda PRN Q1HR PRN OU DRY EYE Last administered on 01/13/19at 17:14; Start 01/13/19 at 16:45 Docusate Sodium (Enemeez) 283 mg 1X ONCE GA Last administered on 01/13/19at 17:14; Start 01/13/19 at 16:45; Stop 01/13/19 at 16:47; Status DC Levofloxacin/ Dextrose 100 ml @ 100 mls/hr Q24H IV Last administered on 01/22/19at 08:37; Start 01/14/19 at 09:00 Metoclopramide HCl (Reglan Vial) 5 mg 1X ONCE IVP Last administered on 01/14/19at 10:51; Start 01/14/19 at 10:30; Stop 01/14/19 at 10:31; Status DC Dexmedetomidine HCl 400 mcg/ Sodium Chloride 100 ml @ 0 mls/hr CONT PRN IV AGITATION Last administered on 01/22/19at 07:56; Start 01/14/19 at 11:30 Sodium Chloride 1,000 ml @ 1,000 mls/hr Q1H PRN IV hypotension; Start 01/14/19 at 11:26; Stop 01/14/19 at 17:25; Status DC Albumin Human 200 ml @ 200 mls/hr 1X PRN PRN IV Hypotension; Start 01/14/19 at 11:30; Stop 01/14/19 at 17:29; Status DC Sodium Chloride 1,000 ml @ 400 mls/hr Q2H30M PRN IV PATENCY; Start 01/14/19 at 11:26; Stop 01/14/19 at 23:25; Status DC Info (PHARMACY MONITORING -- do not chart) 1 each PRN DAILY PRN MC SEE COMMENTS; Start 01/14/19 at 11:30; Status UNV Info (PHARMACY MONITORING -- do not chart) 1 each PRN DAILY PRN MC SEE COMMENTS; Start 01/14/19 at 11:30; Status UNV Sodium Chloride 30 meq/Sodium Acetate 40 meq/ Potassium Acetate 30 meq/Calcium Gluconate 10 meq/ Multivitamins 10 ml/Chromium/ Copper/Manganese/ Seleni/Zn 1 ml/ Total Parenteral Nutrition/Amino Acids/Dextrose/ Fat Emulsion Intravenous 1,512 ml @ 63 mls/hr TPN CONT IV Last administered on 01/15/19at 00:05; Start 01/14/19 at 22:00; Stop 01/15/19 at 21:59; Status DC Artificial Tears (Artificial Tears) 1 drop Q4H PRN OU DRY EYE Last administered on 01/14/19at 16:43; Start 01/14/19 at 15:30 Sodium Bicarbonate (Sodium Bicarb Adult 8.4% Syr) 50 meq STK-MED ONCE .ROUTE ; Start 01/15/19 at 08:25; Stop 01/15/19 at 08:25; Status DC Sodium Bicarbonate (Sodium Bicarb Adult 8.4% Syr) 100 meq 1X ONCE IV Last administered on 01/15/19at 08:31; Start 01/15/19 at 08:30; Stop 01/15/19 at 08:31; Status DC Sodium Chloride 40 meq/Sodium Acetate 40 meq/ Potassium Acetate 10 meq/Calcium Gluconate 10 meq/ Multivitamins 10 ml/Chromium/ Copper/Manganese/ Seleni/Zn 1 ml/ Total Parenteral Nutrition/Amino Acids/Dextrose/ Fat Emulsion Intravenous 1,512 ml @ 63 mls/hr TPN CONT IV ; Start 01/15/19 at 22:00; Stop 01/15/19 at 11:06; Status DC Vasopressin 40 unit/Dextrose 102 ml @ 6 mls/hr CONT PRN IV SEE I/O RECORD Last administered on 01/20/19at 19:31; Start 01/15/19 at 10:00 Sodium Chloride 1,000 ml @ 1,000 mls/hr Q1H PRN IV hypotension; Start 01/15/19 at 10:00; Stop 01/15/19 at 15:59; Status DC Albumin Human 200 ml @ 200 mls/hr 1X PRN PRN IV Hypotension Last administered on 01/15/19at 11:07; Start 01/15/19 at 10:00; Stop 01/15/19 at 15:59; Status DC Sodium Chloride 1,000 ml @ 400 mls/hr Q2H30M PRN IV PATENCY; Start 01/15/19 at 10:00; Stop 01/15/19 at 21:59; Status DC Info (PHARMACY MONITORING -- do not chart) 1 each PRN DAILY PRN MC SEE COMMENTS; Start 01/15/19 at 10:00; Stop 01/15/19 at 10:57; Status DC Info (PHARMACY MONITORING -- do not chart) 1 each PRN DAILY PRN MC SEE COMMENTS; Start 01/15/19 at 10:00; Stop 01/15/19 at 10:57; Status DC Sodium Chloride 40 meq/Sodium Acetate 40 meq/ Potassium Acetate 10 meq/Calcium Gluconate 10 meq/ Multivitamins 10 ml/Chromium/ Copper/Manganese/ Seleni/Zn 1 ml/ Thiamine HCl 100 mg/Total Parenteral Nutrition/Amino Acids/Dextrose/ Fat Emulsion Intravenous 1,512 ml @ 63 mls/hr TPN CONT IV ; Start 01/15/19 at 22:00; Stop 01/15/19 at 14:18; Status DC Potassium Chloride 20 meq/ Bicarbonate Dialysis Soln w/ out KCl 5,010 ml @ 1,000 mls/hr Q5H1M IV Last administered on 01/15/19at 15:40; Start 01/15/19 at 14:00; Stop 01/15/19 at 19:00; Status DC Potassium Chloride 20 meq/ Bicarbonate Dialysis Soln w/ out KCl 5,010 ml @ 1,000 mls/hr Q5H1M IV Last administered on 01/15/19at 15:50; Start 01/15/19 at 14:00; Stop 01/15/19 at 19:00; Status DC Potassium Chloride 20 meq/ Bicarbonate Dialysis Soln w/ out KCl 5,010 ml @ 1,000 mls/hr Q5H1M IV Last administered on 01/15/19at 15:50; Start 01/15/19 at 14:00; Stop 01/15/19 at 19:00; Status DC Albumin Human 100 ml @ 100 mls/hr Q6HRS IV Last administered on 01/22/19at 06:12; Start 01/15/19 at 14:00 Potassium Phosphate 20 mmol/ Sodium Chloride 256.6667 ml @ 128.... PRN Q6HRS PRN IV FOR PO4 < 2.5 Last administered on 01/19/19at 21:40; Start 01/15/19 at 14:00 Sodium Chloride 40 meq/Sodium Acetate 40 meq/ Calcium Gluconate 10 meq/ Multivitamins 10 ml/Chromium/ Copper/Manganese/ Seleni/Zn 1 ml/ Thiamine HCl 100 mg/Total Parenteral Nutrition/Amino Acids/Dextrose/ Fat Emulsion Intravenous 1,512 ml @ 63 mls/hr TPN CONT IV Last administered on 01/15/19at 21:45; Start 01/15/19 at 22:00; Stop 01/16/19 at 21:59; Status DC Potassium Chloride 20 meq/ Bicarbonate Dialysis Soln w/ out KCl 5,010 ml @ 500 mls/hr Q10H2M IV Last administered on 01/17/19at 10:43; Start 01/15/19 at 19:01; Stop 01/17/19 at 15:00; Status DC Potassium Chloride 20 meq/ Bicarbonate Dialysis Soln w/ out KCl 5,010 ml @ 1,200 mls/hr Q4H11M IV Last administered on 01/17/19at 10:36; Start 01/15/19 at 19:01; Stop 01/17/19 at 15:00; Status DC Potassium Chloride 20 meq/ Bicarbonate Dialysis Soln w/ out KCl 5,010 ml @ 1,200 mls/hr Q4H11M IV Last administered on 01/17/19at 00:17; Start 01/15/19 at 19:00; Stop 01/17/19 at 15:00; Status DC Daptomycin 500 mg/ Sodium Chloride 50 ml @ 100 mls/hr Q48H IV Last administered on 01/20/19at 09:16; Start 01/16/19 at 09:00; Stop 01/22/19 at 08:12; Status DC Sodium Chloride 60 meq/Sodium Acetate 40 meq/ Calcium Gluconate 10 meq/ Multivitamins 10 ml/Chromium/ Copper/Manganese/ Seleni/Zn 1 ml/ Thiamine HCl 100 mg/Total Parenteral Nutrition/Amino Acids/Dextrose/ Fat Emulsion Intravenous 1,512 ml @ 63 mls/hr TPN CONT IV Last administered on 01/16/19at 22:00; Start 01/16/19 at 22:00; Stop 01/18/19 at 10:50; Status DC Sodium Chloride 80 meq/Calcium Gluconate 10 meq/ Multivitamins 10 ml/Chromium/ Copper/Manganese/ Seleni/Zn 1 ml/ Thiamine HCl 100 mg/Total Parenteral Nutrition/Amino Acids/Dextrose/ Fat Emulsion Intravenous 1,512 ml @ 63 mls/hr TPN CONT IV Last administered on 01/17/19at 21:52; Start 01/17/19 at 22:00; Stop 01/18/19 at 21:59; Status DC Potassium Chloride 20 meq/ Sodium Bicarbonate 40 meq/Bicarbonate Dialysis Soln w/ out KCl 5,050 ml @ 500 mls/hr Q10H6M IV Last administered on 01/18/19at 08:17; Start 01/17/19 at 15:00; Stop 01/18/19 at 18:00; Status DC Potassium Chloride 20 meq/ Sodium Bicarbonate 40 meq/Bicarbonate Dialysis Soln w/ out KCl 5,050 ml @ 1,200 mls/hr Q4H13M IV Last administered on 01/18/19at 06:01; Start 01/17/19 at 15:00; Stop 01/18/19 at 09:51; Status DC Potassium Chloride 20 meq/ Sodium Bicarbonate 40 meq/Bicarbonate Dialysis Soln w/ out KCl 5,050 ml @ 1,200 mls/hr Q4H13M IV Last administered on 01/18/19at 06:01; Start 01/17/19 at 15:00; Stop 01/18/19 at 09:51; Status DC Potassium Phosphate 20 mmol/ Sodium Chloride 256.6667 ml @ 128.... ONCE ONCE IV Last administered on 01/17/19at 18:21; Start 01/17/19 at 17:45; Stop 01/17/19 at 19:44; Status DC Calcium Chloride 12.5 meq/ Magnesium Sulfate 2.5 meq/Potassium Chloride 10 meq/ Sodium Bicarbonate 40 meq/Bicarbonate Dialysis Soln w/ out KCl 5,054.5443 ml @ 1,200 mls/hr Q4H13M IV Last administered on 01/19/19at 03:20; Start 01/18/19 at 10:00; Stop 01/19/19 at 07:47; Status DC Calcium Chloride 12.5 meq/ Magnesium Sulfate 2.5 meq/Potassium Chloride 10 meq/ Sodium Bicarbonate 40 meq/Bicarbonate Dialysis Soln w/ out KCl 5,054.5443 ml @ 1,200 mls/hr Q4H13M IV Last administered on 01/19/19at 03:21; Start 01/18/19 at 10:00; Stop 01/19/19 at 07:47; Status DC Calcium Chloride 12.5 meq/ Magnesium Sulfate 2.5 meq/Potassium Chloride 10 meq/ Sodium Bicarbonate 40 meq/Bicarbonate Dialysis Soln w/ out KCl 5,054.5443 ml @ 500 mls/hr Q10H7M IV Last administered on 01/19/19at 05:16; Start 01/18/19 at 18:00; Stop 01/19/19 at 07:48; Status DC Meropenem 500 mg/ Sodium Chloride 50 ml @ 100 mls/hr Q8HRS IV Last administered on 01/19/19at 06:02; Start 01/18/19 at 14:00; Stop 01/19/19 at 09:24; Status DC Sodium Chloride 80 meq/Calcium Gluconate 10 meq/ Multivitamins 10 ml/Chromium/ Copper/Manganese/ Seleni/Zn 1 ml/ Thiamine HCl 100 mg/Total Parenteral Nutrition/Amino Acids/Dextrose/ Fat Emulsion Intravenous 1,512 ml @ 63 mls/hr TPN CONT IV Last administered on 01/18/19at 21:37; Start 01/18/19 at 22:00; Stop 01/19/19 at 21:59; Status DC Epinephrine HCl 4 mg/Sodium Chloride 254 ml @ 41.822 mls/ hr CONT PRN IV SEE I/O RECORD; Start 01/18/19 at 16:15; Stop 01/19/19 at 18:00; Status DC Methylprednisolone Sodium Succinate (SOLU-Medrol 125MG VIAL) 125 mg 1X ONCE IV Last administered on 01/18/19at 16:30; Start 01/18/19 at 16:30; Stop 01/18/19 at 16:31; Status DC Methylprednisolone Sodium Succinate (SOLU-Medrol 125MG VIAL) 125 mg STK-MED ONCE .ROUTE ; Start 01/18/19 at 16:26; Stop 01/18/19 at 16:26; Status DC Calcium Chloride 12.5 meq/ Potassium Chloride 5 meq/ Sodium Bicarbonate 40 meq/Bicarbonate Dialysis Soln w/ out KCl 5,051.4286 ml @ 1,200 mls/hr Q4H13M IV Last administered on 01/20/19at 11:31; Start 01/19/19 at 08:00; Stop 01/20/19 at 11:30; Status DC Calcium Chloride 12.5 meq/ Potassium Chloride 5 meq/ Sodium Bicarbonate 40 meq/Bicarbonate Dialysis Soln w/ out KCl 5,051.4286 ml @ 1,200 mls/hr Q4H13M IV Last administered on 01/20/19at 11:30; Start 01/19/19 at 08:00; Stop 01/20/19 at 11:30; Status DC Calcium Chloride 12.5 meq/ Potassium Chloride 5 meq/ Sodium Bicarbonate 40 meq/Bicarbonate Dialysis Soln w/ out KCl 5,051.4286 ml @ 500 mls/hr Q10H7M IV Last administered on 01/20/19at 03:09; Start 01/19/19 at 15:00; Stop 01/20/19 at 11:30; Status DC Meropenem 1 gm/ Sodium Chloride 100 ml @ 200 mls/hr Q12H IV Last administered on 01/19/19at 14:36; Start 01/19/19 at 14:00; Stop 01/19/19 at 16:00; Status DC Albumin Human 100 ml @ As Directed STK-MED ONCE IV ; Start 01/19/19 at 10:44; Stop 01/19/19 at 10:44; Status DC Norepinephrine Bitartrate 32 mg/ Sodium Chloride 250 ml @ 7 mls/hr CONT PRN IV SEE I/O RECORD Last administered on 01/19/19at 14:15; Start 01/19/19 at 11:30 Sodium Chloride 80 meq/Calcium Gluconate 10 meq/ Multivitamins 10 ml/Chromium/ Copper/Manganese/ Seleni/Zn 1 ml/ Thiamine HCl 100 mg/Total Parenteral Nutri tion/Amino Acids/Dextrose/ Fat Emulsion Intravenous 1,200 ml @ 50 mls/hr TPN CONT IV Last administered on 01/19/19at 21:30; Start 01/19/19 at 22:00; Stop 01/20/19 at 21:59; Status DC Epinephrine HCl 8 mg/Sodium Chloride 258 ml @ 20.9 mls/hr CONT PRN IV SEE I/O RECORD; Start 01/19/19 at 14:15 Meropenem 1 gm/ Sodium Chloride 50 ml @ 100 mls/hr Q12H IV Last administered on 01/22/19at 02:16; Start 01/20/19 at 02:00 Albumin Human 100 ml @ As Directed STK-MED ONCE IV ; Start 01/19/19 at 17:00; Stop 01/19/19 at 17:00; Status DC Potassium Phosphate 20 mmol/ Sodium Chloride 256.6667 ml @ 128.... 1X ONCE IV Last administered on 01/20/19at 06:19; Start 01/20/19 at 06:15; Stop 01/20/19 at 08:14; Status DC Phytonadione 10 mg/Dextrose 51 ml @ 102 mls/hr 1X ONCE IV Last administered on 01/20/19at 11:07; Start 01/20/19 at 10:45; Stop 01/20/19 at 11:14; Status DC Calcium Chloride 12.5 meq/ Potassium Chloride 5 meq/ Bicarbonate Dialysis Soln w/ out KCl 5,011.4286 ml @ 1,200 mls/hr Q4H11M IV Last administered on 01/22/19at 07:43; Start 01/20/19 at 11:00 Calcium Chloride 12.5 meq/ Potassium Chloride 5 meq/ Bicarbonate Dialysis Soln w/ out KCl 5,011.4286 ml @ 1,200 mls/hr Q4H11M IV ; Start 01/20/19 at 11:30; Stop 01/20/19 at 10:31; Status DC Calcium Chloride 12.5 meq/ Potassium Chloride 5 meq/ Bicarbonate Dialysis Soln w/ out KCl 5,011.4286 ml @ 1,200 mls/hr Q4H11M IV Last administered on 1 03/25/18at 07:44; Start 01/20/19 at 10:30 Calcium Chloride 12.5 meq/ Potassium Chloride 5 meq/ Bicarbonate Dialysis Soln w/ out KCl 5,011.4286 ml @ 500 mls/hr Q10H2M IV Last administered on 01/22/19at 07:59; Start 01/20/19 at 11:30 Sodium Chloride 80 meq/Calcium Gluconate 20 meq/ Multivitamins 10 ml/Chromium/ Copper/Manganese/ Seleni/Zn 1 ml/ Thiamine HCl 100 mg/Total Parenteral Nutr ition/Amino Acids/Dextrose/ Fat Emulsion Intravenous 1,200 ml @ 50 mls/hr TPN CONT IV Last administered on 01/20/19at 21:43; Start 01/20/19 at 22:00; Stop 01/21/19 at 21:59; Status DC Potassium Phosphate 40 mmol/ Sodium Chloride 263.3333 ml @ 62.5 mls/hr 1X ONCE IV Last administered on 01/20/19at 16:03; Start 01/20/19 at 16:00; Stop 01/20/19 at 20:12; Status DC Sodium Phosphate 40 mmol/Dextrose 263.3333 ml @ 62.5 mls/hr 1X ONCE IV Last administered on 01/21/19at 09:26; Start 01/21/19 at 09:00; Stop 01/21/19 at 13:13; Status DC Sodium Chloride 80 meq/Calcium Gluconate 25 meq/ Multivitamins 10 ml/Chromium/ Copper/Manganese/ Seleni/Zn 1 ml/ Thiamine HCl 100 mg/Total Parenteral Nutrition/Amino Acids/Dextrose/ Fat Emulsion Intravenous 1,512 ml @ 63 mls/hr TPN CONT IV Last administered on 01/21/19at 22:09; Start 01/21/19 at 22:00; Stop 01/22/19 at 21:59 Epinephrine HCl (EPINEPHrine SYRINGE) 1 mg STK-MED ONCE .ROUTE ; Start 01/19/19 at 12:00; Stop 01/21/19 at 15:55; Status DC Sodium Bicarbonate (Sodium Bicarb Adult 8.4% Syr) 50 meq STK-MED ONCE .ROUTE ; Start 01/19/19 at 12:00; Stop 01/21/19 at 15:55; Status DC Magnesium Sulfate 50 ml @ 25 mls/hr 1X ONCE IV Last administered on 01/21/19at 16:24; Start 01/21/19 at 16:30; Stop 01/21/19 at 18:29; Status DC Potassium Phosphate 40 mmol/ Sodium Chloride 263.3333 ml @ 62.5 mls/hr 1X ONCE IV Last administered on 01/21/19at 22:00; Start 01/21/19 at 21:45; Stop 01/22/19 at 01:57; Status DC Potassium Phosphate 20 mmol/ Sodium Chloride 256.6667 ml @ 62.5 mls/hr 1X ONCE IV Last administered on 01/22/19at 06:22; Start 01/22/19 at 06:30; Stop 01/22/19 at 10:36 Vitals/I & O Vital Sign - Last 24 Hours 01/21/19 01/21/19 01/21/19 01/21/19 11:00 11:32 11:41 12:00 Temp 96.6 96.6 Pulse 76 71 Resp 24 24 B/P (MAP) 135/59 (84) 92/50 (64) Pulse Ox 100 100 100 O2 Delivery Ventilator Mechanical Ventilator Ventilator Ventilator 01/21/19 01/21/19 01/21/19 01/21/19 12:15 12:30 13:00 13:02 Temp 96.6 97.0 96.6 97.0 Pulse 73 75 73 Resp 24 24 24 B/P (MAP) 92/50 140/56 86/53 (64) Pulse Ox 100 100 O2 Delivery Ventilator Ventilator 01/21/19 01/21/19 01/21/19 01/21/19 13:30 14:00 14:34 14:45 Temp 96.6 97.8 96.6 97.8 Pulse 75 81 89 Resp 24 24 24 24 B/P (MAP) 98/46 129/67 (87) 144/66 Pulse Ox 100 100 O2 Delivery Ventilator Ventilator 01/21/19 01/21/19 01/21/19 01/21/19 15:00 15:18 15:39 16:00 Temp 97.8 97.8 Pulse 81 90 Resp 24 24 24 B/P (MAP) 129/58 (81) 140/62 (88) Pulse Ox 100 100 100 O2 Delivery Ventilator Ventilator Mechanical Ventilator Ventilator 01/21/19 01/21/19 01/21/19 01/21/19 16:30 17:00 18:00 18:10 Pulse 81 103 Resp 24 25 B/P (MAP) 131/59 (83) 106/61 (76) Pulse Ox 100 100 100 100 O2 Delivery Ventilator Ventilator Ventilator Ventilator 01/21/19 01/21/19 01/21/19 01/21/19 19:00 19:52 20:00 20:00 Temp 98.2 98.2 Pulse 98 101 Resp 24 24 B/P (MAP) 124/60 (81) 101/46 (64) Pulse Ox 100 100 100 O2 Delivery Ventilator Ventilator Mechanical Ventilator Ventilator 01/21/19 01/21/19 01/21/19 01/21/19 20:08 20:38 21:00 22:00 Pulse 102 103 Resp 24 B/P (MAP) 104/55 (71) 98/53 (68) Pulse Ox 100 100 99 99 O2 Delivery Ventilator Ventilator Ventilator Ventilator 01/21/19 01/21/19 01/21/19 01/22/19 22:58 23:00 23:59 00:00 Temp 99.3 99.3 Pulse 104 102 Resp 24 24 B/P (MAP) 94/48 (63) 95/52 (66) Pulse Ox 99 99 100 O2 Delivery Ventilator Ventilator Mechanical Ventilator Ventilator 01/22/19 01/22/19 01/22/19 01/22/19 01:00 01:15 01:20 01:50 Pulse 100 Resp 24 B/P (MAP) 166/75 (105) Pulse Ox 93 89 99 99 O2 Delivery Ventilator Ventilator Ventilator Ventilator 01/22/19 01/22/19 01/22/19 01/22/19 02:00 03:00 03:34 04:00 Temp 99.2 99.2 Pulse 100 101 99 Resp 25 26 24 B/P (MAP) 104/45 (64) 116/51 (72) 118/43 (68) Pulse Ox 98 100 100 100 O2 Delivery Ventilator Ventilator Ventilator Ventilator 01/22/19 01/22/19 01/22/19 01/22/19 04:00 05:00 05:00 06:00 Pulse 97 97 Resp 24 24 B/P (MAP) 107/48 (67) 107/36 (59) Pulse Ox 100 100 100 O2 Delivery Mechanical Ventilator Ventilator Ventilator Ventilator 01/22/19 01/22/19 01/22/19 01/22/19 07:00 07:45 08:00 08:00 Temp 97.4 97.4 Pulse 94 94 Resp 24 24 24 B/P (MAP) 95/54 (68) 82/41 (55) Pulse Ox 100 100 100 O2 Delivery Ventilator Ventilator Mechanical Ventilator Ventilator 01/22/19 01/22/19 01/22/19 01/22/19 08:13 08:38 09:00 10:00 Pulse 96 99 Resp 24 24 24 B/P (MAP) 104/50 (68) 121/60 (80) Pulse Ox 100 100 100 100 O2 Delivery Ventilator Ventilator Ventilator Ventilator 01/22/19 10:07 Pulse Ox 100 O2 Delivery Ventilator Intake and Output 01/21/19 01/21/19 01/22/19 15:00 23:00 07:00 Intake Total 1131.52 ml 1350.86 ml Output Total 0 ml 0 ml 0 ml Balance 1131.52 ml 1350.86 ml 0 ml MAIK GUNN MD Jan 22, 2019 10:33
[2019-01-22] MEDS: TPN PER PHARMACY MC PRN (11:27)
--- NOTE | 2019-01-22 11:32 | PDOC ---
PULMONARY PROGRESS NOTES Subjective PT ON PC V 100 % Vitals Vital Signs Date Time Temp Pulse Resp B/P (MAP) Pulse Ox O2 Delivery O2 Flow Rate FiO2 01/22/19 11:00 93 24 106/54 (71) 100 Ventilator 01/22/19 08:00 97.4 97.4 Lungs: Other (coarse bs bilaterally) Cardiovascular: S1, S2 Abdomen: Soft, Non-tender, Other (DISTENDED no mass) Extremities: Other (EDEMA) Skin: Warm Labs Laboratory Tests Test 01/20/19 13:07 01/20/19 15:04 01/20/19 17:16 01/20/19 21:00 Sodium Level 143 mmol/L (136-145) 142 mmol/L (136-145) Potassium Level 4.0 mmol/L (3.5-5.1) 4.3 mmol/L (3.5-5.1) Chloride Level 102 mmol/L (98-107) 102 mmol/L (98-107) Carbon Dioxide Level 29 mmol/L (21-32) 28 mmol/L (21-32) Anion Gap 12 (6-14) 12 (6-14) Blood Urea Nitrogen 41 mg/dL (8-26) 46 mg/dL (8-26) Creatinine 1.3 mg/dL (0.7-1.3) 1.2 mg/dL (0.7-1.3) Estimated GFR (Cockcroft-Gault) 61.8 67.8 Glucose Level 168 mg/dL (70-99) 165 mg/dL (70-99) Calcium Level 7.2 mg/dL (8.5-10.1) 7.4 mg/dL (8.5-10.1) Phosphorus Level 1.3 mg/dL (2.6-4.7) 2.7 mg/dL (2.6-4.7) Magnesium Level 1.8 mg/dL (1.8-2.4) 1.9 mg/dL (1.8-2.4) Fibrinogen 111 mg/dL (200-440) Glucose (Fingerstick) 154 mg/dL (70-99) Activated Partial Thromboplast Time 36 SEC (24-38) Lactic Acid Level 3.3 mmol/L (0.4-2.0) Iron Level 84 ug/dL (65-175) Total Iron Binding Capacity 69 ug/dL (250-450) Iron Saturation % (15-34) Ferritin 605 ng/mL (26-388) Test 01/21/19 05:00 01/21/19 07:50 01/21/19 09:00 01/21/19 11:46 White Blood Count 11.9 x10^3/uL (4.0-11.0) Red Blood Count 2.06 x10^6/uL (4.30-5.70) Hemoglobin 6.8 g/dL (13.0-17.5) Hematocrit 19.8 % (39.0-53.0) Mean Corpuscular Volume 96 fL (79-100) Mean Corpuscular Hemoglobin 33 pg (25-35) Mean Corpuscular Hemoglobin Concent 34 g/dL (31-37) Red Cell Distribution Width 18.8 % (11.5-14.5) Platelet Count 27 x10^3/uL (140-400) Neutrophils (%) (Auto) 73 % (31-73) Lymphocytes (%) (Auto) 17 % (24-48) Monocytes (%) (Auto) 9 % (0-9) Eosinophils (%) (Auto) 0 % (0-3) Basophils (%) (Auto) 1 % (0-3) Neutrophils # (Auto) 8.7 x10^3/uL (1.8-7.7) Lymphocytes # (Auto) 2.0 x10^3/uL (1.0-4.8) Monocytes # (Auto) 1.1 x10^3/uL (0.0-1.1) Eosinophils # (Auto) 0.0 x10^3/uL (0.0-0.7) Basophils # (Auto) 0.1 x10^3/uL (0.0-0.2) Prothrombin Time 21.6 SEC (11.7-14.0) Prothromb Time International Ratio 1.9 (0.8-1.1) Sodium Level 140 mmol/L (136-145) Potassium Level 3.7 mmol/L (3.5-5.1) Chloride Level 102 mmol/L (98-107) Carbon Dioxide Level 27 mmol/L (21-32) Anion Gap 11 (6-14) Blood Urea Nitrogen 44 mg/dL (8-26) Creatinine 1.2 mg/dL (0.7-1.3) Estimated GFR (Cockcroft-Gault) 67.8 BUN/Creatinine Ratio 37 (6-20) Glucose Level 186 mg/dL (70-99) Calcium Level 7.6 mg/dL (8.5-10.1) Phosphorus Level 1.9 mg/dL (2.6-4.7) Magnesium Level 1.8 mg/dL (1.8-2.4) Total Bilirubin 19.1 mg/dL (0.2-1.0) Aspartate Amino Transf (AST/SGOT) 178 U/L (15-37) Alanine Aminotransferase (ALT/SGPT) 58 U/L (16-63) Alkaline Phosphatase 226 U/L (46-116) Total Protein 6.2 g/dL (6.4-8.2) Albumin 3.6 g/dL (3.4-5.0) Albumin/Globulin Ratio 1.4 (1.0-1.7) O2 Saturation 98 % (92-99) Arterial Blood pH 7.39 (7.35-7.45) Arterial Blood pCO2 at Patient Temp 41 mmHg (35-46) Arterial Blood pO2 at Patient Temp 109 mmHg (85-108) Arterial Blood HCO3 24 mmol/L (21-28) Arterial Blood Base Excess -1 mmol/L (-3-3) FiO2 100 Lactic Acid Level 3.6 mmol/L (0.4-2.0) Glucose (Fingerstick) 147 mg/dL (70-99) Test 01/21/19 12:40 01/21/19 15:30 01/21/19 16:50 01/21/19 20:55 Sodium Level 140 mmol/L (136-145) 140 mmol/L (136-145) Potassium Level 3.5 mmol/L (3.5-5.1) 3.6 mmol/L (3.5-5.1) Chloride Level 101 mmol/L (98-107) 101 mmol/L (98-107) Carbon Dioxide Level 28 mmol/L (21-32) 28 mmol/L (21-32) Anion Gap 11 (6-14) 11 (6-14) Blood Urea Nitrogen 41 mg/dL (8-26) 41 mg/dL (8-26) Creatinine 1.2 mg/dL (0.7-1.3) 1.3 mg/dL (0.7-1.3) Estimated GFR (Cockcroft-Gault) 67.8 61.8 Glucose Level 167 mg/dL (70-99) 131 mg/dL (70-99) Calcium Level 7.7 mg/dL (8.5-10.1) 8.0 mg/dL (8.5-10.1) Hemoglobin 7.9 g/dL (13.0-17.5) Hematocrit 23.1 % (39.0-53.0) Mean Corpuscular Hemoglobin Concent 34 g/dL (31-37) Phosphorus Level 2.5 mg/dL (2.6-4.7) 1.5 mg/dL (2.6-4.7) Magnesium Level 1.7 mg/dL (1.8-2.4) 2.0 mg/dL (1.8-2.4) Glucose (Fingerstick) 137 mg/dL (70-99) Lactic Acid Level 3.9 mmol/L (0.4-2.0) Test 01/22/19 05:00 01/22/19 08:00 01/22/19 09:15 White Blood Count 15.9 x10^3/uL (4.0-11.0) Red Blood Count 2.35 x10^6/uL (4.30-5.70) Hemoglobin 7.7 g/dL (13.0-17.5) Hematocrit 21.7 % (39.0-53.0) Mean Corpuscular Volume 92 fL (79-100) Mean Corpuscular Hemoglobin 33 pg (25-35) Mean Corpuscular Hemoglobin Concent 35 g/dL (31-37) Red Cell Distribution Width 17.9 % (11.5-14.5) Platelet Count 44 x10^3/uL (140-400) Neutrophils (%) (Auto) 75 % (31-73) Lymphocytes (%) (Auto) 17 % (24-48) Monocytes (%) (Auto) 7 % (0-9) Eosinophils (%) (Auto) 0 % (0-3) Basophils (%) (Auto) 0 % (0-3) Neutrophils # (Auto) 11.9 x10^3/uL (1.8-7.7) Lymphocytes # (Auto) 2.7 x10^3/uL (1.0-4.8) Monocytes # (Auto) 1.2 x10^3/uL (0.0-1.1) Eosinophils # (Auto) 0.0 x10^3/uL (0.0-0.7) Basophils # (Auto) 0.1 x10^3/uL (0.0-0.2) Sodium Level 139 mmol/L (136-145) Potassium Level 3.8 mmol/L (3.5-5.1) Chloride Level 101 mmol/L (98-107) Carbon Dioxide Level 25 mmol/L (21-32) Anion Gap 13 (6-14) Blood Urea Nitrogen 40 mg/dL (8-26) Creatinine 1.3 mg/dL (0.7-1.3) Estimated GFR (Cockcroft-Gault) 61.8 BUN/Creatinine Ratio 31 (6-20) Glucose Level 120 mg/dL (70-99) Calcium Level 8.4 mg/dL (8.5-10.1) Phosphorus Level 2.3 mg/dL (2.6-4.7) Magnesium Level 1.8 mg/dL (1.8-2.4) Total Bilirubin 21.5 mg/dL (0.2-1.0) Aspartate Amino Transf (AST/SGOT) 192 U/L (15-37) Alanine Aminotransferase (ALT/SGPT) 62 U/L (16-63) Alkaline Phosphatase 281 U/L (46-116) Total Protein 6.0 g/dL (6.4-8.2) Albumin 3.7 g/dL (3.4-5.0) Albumin/Globulin Ratio 1.6 (1.0-1.7) Triglycerides Level 175 mg/dL (0-150) O2 Saturation 96 % (92-99) Arterial Blood pH 7.45 (7.35-7.45) Arterial Blood pCO2 at Patient Temp 33 mmHg (35-46) Arterial Blood pO2 at Patient Temp 87 mmHg (85-108) Arterial Blood HCO3 22 mmol/L (21-28) Arterial Blood Base Excess -2 mmol/L (-3-3) FiO2 100 Lactic Acid Level 4.0 mmol/L (0.4-2.0) Laboratory Tests Test 01/21/19 11:46 01/21/19 12:40 01/21/19 15:30 12/4/19 16:50 Glucose (Fingerstick) 147 mg/dL (70-99) 137 mg/dL (70-99) Sodium Level 140 mmol/L (136-145) Potassium Level 3.5 mmol/L (3.5-5.1) Chloride Level 101 mmol/L (98-107) Carbon Dioxide Level 28 mmol/L (21-32) Anion Gap 11 (6-14) Blood Urea Nitrogen 41 mg/dL (8-26) Creatinine 1.2 mg/dL (0.7-1.3) Estimated GFR (Cockcroft-Gault) 67.8 Glucose Level 167 mg/dL (70-99) Calcium Level 7.7 mg/dL (8.5-10.1) Hemoglobin 7.9 g/dL (13.0-17.5) Hematocrit 23.1 % (39.0-53.0) Mean Corpuscular Hemoglobin Concent 34 g/dL (31-37) Phosphorus Level 2.5 mg/dL (2.6-4.7) Magnesium Level 1.7 mg/dL (1.8-2.4) Test 01/21/19 20:55 01/22/19 05:00 01/22/19 08:00 01/22/19 09:15 Sodium Level 140 mmol/L (136-145) 139 mmol/L (136-145) Potassium Level 3.6 mmol/L (3.5-5.1) 3.8 mmol/L (3.5-5.1) Chloride Level 101 mmol/L (98-107) 101 mmol/L (98-107) Carbon Dioxide Level 28 mmol/L (21-32) 25 mmol/L (21-32) Anion Gap 11 (6-14) 13 (6-14) Blood Urea Nitrogen 41 mg/dL (8-26) 40 mg/dL (8-26) Creatinine 1.3 mg/dL (0.7-1.3) 1.3 mg/dL (0.7-1.3) Estimated GFR (Cockcroft-Gault) 61.8 61.8 Glucose Level 131 mg/dL (70-99) 120 mg/dL (70-99) Lactic Acid Level 3.9 mmol/L (0.4-2.0) 4.0 mmol/L (0.4-2.0) Calcium Level 8.0 mg/dL (8.5-10.1) 8.4 mg/dL (8.5-10.1) Phosphorus Level 1.5 mg/dL (2.6-4.7) 2.3 mg/dL (2.6-4.7) Magnesium Level 2.0 mg/dL (1.8-2.4) 1.8 mg/dL (1.8-2.4) White Blood Count 15.9 x10^3/uL (4.0-11.0) Red Blood Count 2.35 x10^6/uL (4.30-5.70) Hemoglobin 7.7 g/dL (13.0-17.5) Hematocrit 21.7 % (39.0-53.0) Mean Corpuscular Volume 92 fL (79-100) Mean Corpuscular Hemoglobin 33 pg (25-35) Mean Corpuscular Hemoglobin Concent 35 g/dL (31-37) Red Cell Distribution Width 17.9 % (11.5-14.5) Platelet Count 44 x10^3/uL (140-400) Neutrophils (%) (Auto) 75 % (31-73) Lymphocytes (%) (Auto) 17 % (24-48) Monocytes (%) (Auto) 7 % (0-9) Eosinophils (%) (Auto) 0 % (0-3) Basophils (%) (Auto) 0 % (0-3) Neutrophils # (Auto) 11.9 x10^3/uL (1.8-7.7) Lymphocytes # (Auto) 2.7 x10^3/uL (1.0-4.8) Monocytes # (Auto) 1.2 x10^3/uL (0.0-1.1) Eosinophils # (Auto) 0.0 x10^3/uL (0.0-0.7) Basophils # (Auto) 0.1 x10^3/uL (0.0-0.2) BUN/Creatinine Ratio 31 (6-20) Total Bilirubin 21.5 mg/dL (0.2-1.0) Aspartate Amino Transf (AST/SGOT) 192 U/L (15-37) Alanine Aminotransferase (ALT/SGPT) 62 U/L (16-63) Alkaline Phosphatase 281 U/L (46-116) Total Protein 6.0 g/dL (6.4-8.2) Albumin 3.7 g/dL (3.4-5.0) Albumin/Globulin Ratio 1.6 (1.0-1.7) Triglycerides Level 175 mg/dL (0-150) O2 Saturation 96 % (92-99) Arterial Blood pH 7.45 (7.35-7.45) Arterial Blood pCO2 at Patient Temp 33 mmHg (35-46) Arterial Blood pO2 at Patient Temp 87 mmHg (85-108) Arterial Blood HCO3 22 mmol/L (21-28) Arterial Blood Base Excess -2 mmol/L (-3-3) FiO2 100 Comments Impression . IMPRESSION: 1. Acute respiratory failure, multifactorial, secondary to multiorgan failure. ARDS with.likely superimposed fluid overload/CHF/ underlying aspiration pne umonitis etiology of ARDS, no evidence of hepato-pulmonary shunt on Bubble echo 2. End-stage liver disease with persistent abnormal LFT, bili up to 15 3. Multiorgan failure. 4. Renal failure. ? hepato renal syndrome, remains oliguric, on CRRT 5. Acute gastrointestinal bleed. 6. sepsis. 7. Leukocytosis 8. Hematemesis 9. Rhabdomyolysis. 10. Alcohol abuse. 11. Ascites. 12. Electrolyte abnormalities. Imaging: EGD 01/08 E--NO VARICES. Erosions distally c/w reflux/repeated emesis. One quite long narrow erosion which could have been a M-W. No active bleeding or clot. G--Not much retained blood after OG suction and Reglan. NO gastric varices. Linear erosions along the rugae in fundus and body c/w alcoholic or stress gastr itis. Scattered "bruises" from OG tube. No ulcer, etc. D--Normal to second portion. IMP: Reflux esophagitis. ? recent M-W tear. Alcoholic gastritis. No active bleeding or clot seen. Plan . PT NOW DNR WILL REEVALUATE POSSIBLE PALLIATIVE CARE WITH IN AM APPRECIATE HEME INPUT CONTINUE SUPPORT PROGNOSIS IS POOR DOUBT PT WILL SURVIVE CRRT FOLLOW GI INPUT NUTRITION SUPPORT CARROLL BARRETT MD Jan 22, 2019 11:32
--- NOTE | 2019-01-22 12:00 | NUR ---
Patients Candice and his mother decided to make patient DNR. Patients family asked me how long they should continue aggressive care before they just, "let him go". Informed the family that I would communicate with the drs about the questions they have. Ephraim Oliveira and Briana made aware of the conversation I had with the family and will have a discussion with family tomorrow morning as to the plan of care.
[2019-01-22] MEDS: MIDAZOLAM 100mg/100ml NS BAG 100 ML IV PRN ×2 (12:04→20:44)
--- NOTE | 2019-01-22 12:26 | PDOC ---
PROGRESS NOTES Subjective Subjective HPI - f/u of Thrombocytopenia ROS - no significant bleed Objective Objective Vital Signs Date Time Temp Pulse Resp B/P (MAP) Pulse Ox O2 Delivery O2 Flow Rate FiO2 01/22/19 12:02 100 Ventilator 01/22/19 11:00 93 24 106/54 (71) 01/22/19 08:00 97.4 97.4 01/20/19 15:39 2.0 Intake and Output 01/22/19 07:00 Intake Total 2482.38 ml Output Total 0 ml Balance 2482.38 ml IV Total 1788.38 ml Blood Product IV Normal Saline Flush 640 ml Other 54 ml Output Urine Total 0 ml Physical Exam Heart: Normal S1, Normal S2 Lungs: Clear to auscultation Assessment Assessment Problems Medical Problems: (1) Acute hepatic encephalopathy Status: Acute (2) Acute upper GI bleed Status: Acute (3) Ascites Status: Acute (4) Hypokalemia Status: Acute (5) Multiple organ system failure Status: Acute (6) Severe sepsis with acute organ dysfunction Status: Acute A/P: He is a 38-year-old man with alcoholic liver disease and multiorgan failure 1. Hematemesis: Not actively bleeding, some bloody sputum coming from suction ET tube but other than fecal occult blood test positive no obvious bleeding, GI has done EGD recently, on PPI 2. Acute renal failure: On CRRT, heparin is being held 3. Respiratory failure: Ventilated, pulmonary is following, on antibiotics with treatment for pneumonia 4. Hypotension: On pressor as needed 5. Liver failure: Bilirubin is rising, INR is elevated, fibrinogen is low, GI is involved, prognosis is poor, due to Etoh 6. Thrombocytopenia: With fibrinogen greater than 100 would hold off on further blood products (cryo) or vitamin K w/ elev INR until PF4 is resulted as his platelet count had been normal a few days ago, bilateral lower extremity ultrasounds neg, reassuring, for now anticoagulation is not being given with thrombocytopenia and the recent hematemesis and fecal occult blood test positivity, PTT nl and no inc in schistocytes on review of peripheral smear. Plt 44 on 01/22/19. Monitor I d/w RN I d/w family 7. Anemia: Would transfuse for hemoglobin less than 7, on Aranesp, (could potentially increase thrombotic risk), no need for Fe, ferr 605 and TIBC low Comment Review of Relevant I have reviewed the following items karen (where applicable) has been applied. Labs Laboratory Tests Test 01/20/19 13:07 01/20/19 15:04 01/20/19 17:16 01/20/19 21:00 Sodium Level 143 mmol/L (136-145) 142 mmol/L (136-145) Potassium Level 4.0 mmol/L (3.5-5.1) 4.3 mmol/L (3.5-5.1) Chloride Level 102 mmol/L (98-107) 102 mmol/L (98-107) Carbon Dioxide Level 29 mmol/L (21-32) 28 mmol/L (21-32) Anion Gap 12 (6-14) 12 (6-14) Blood Urea Nitrogen 41 mg/dL (8-26) 46 mg/dL (8-26) Creatinine 1.3 mg/dL (0.7-1.3) 1.2 mg/dL (0.7-1.3) Estimated GFR (Cockcroft-Gault) 61.8 67.8 Glucose Level 168 mg/dL (70-99) 165 mg/dL (70-99) Calcium Level 7.2 mg/dL (8.5-10.1) 7.4 mg/dL (8.5-10.1) Phosphorus Level 1.3 mg/dL (2.6-4.7) 2.7 mg/dL (2.6-4.7) Magnesium Level 1.8 mg/dL (1.8-2.4) 1.9 mg/dL (1.8-2.4) Fibrinogen 111 mg/dL (200-440) Glucose (Fingerstick) 154 mg/dL (70-99) Activated Partial Thromboplast Time 36 SEC (24-38) Lactic Acid Level 3.3 mmol/L (0.4-2.0) Iron Level 84 ug/dL (65-175) Total Iron Binding Capacity 69 ug/dL (250-450) Iron Saturation % (15-34) Ferritin 605 ng/mL (26-388) Test 01/21/19 05:00 01/21/19 07:50 01/21/19 09:00 01/21/19 11:46 White Blood Count 11.9 x10^3/uL (4.0-11.0) Red Blood Count 2.06 x10^6/uL (4.30-5.70) Hemoglobin 6.8 g/dL (13.0-17.5) Hematocrit 19.8 % (39.0-53.0) Mean Corpuscular Volume 96 fL (79-100) Mean Corpuscular Hemoglobin 33 pg (25-35) Mean Corpuscular Hemoglobin Concent 34 g/dL (31-37) Red Cell Distribution Width 18.8 % (11.5-14.5) Platelet Count 27 x10^3/uL (140-400) Neutrophils (%) (Auto) 73 % (31-73) Lymphocytes (%) (Auto) 17 % (24-48) Monocytes (%) (Auto) 9 % (0-9) Eosinophils (%) (Auto) 0 % (0-3) Basophils (%) (Auto) 1 % (0-3) Neutrophils # (Auto) 8.7 x10^3/uL (1.8-7.7) Lymphocytes # (Auto) 2.0 x10^3/uL (1.0-4.8) Monocytes # (Auto) 1.1 x10^3/uL (0.0-1.1) Eosinophils # (Auto) 0.0 x10^3/uL (0.0-0.7) Basophils # (Auto) 0.1 x10^3/uL (0.0-0.2) Prothrombin Time 21.6 SEC (11.7-14.0) Prothromb Time International Ratio 1.9 (0.8-1.1) Sodium Level 140 mmol/L (136-145) Potassium Level 3.7 mmol/L (3.5-5.1) Chloride Level 102 mmol/L (98-107) Carbon Dioxide Level 27 mmol/L (21-32) Anion Gap 11 (6-14) Blood Urea Nitrogen 44 mg/dL (8-26) Creatinine 1.2 mg/dL (0.7-1.3) Estimated GFR (Cockcroft-Gault) 67.8 BUN/Creatinine Ratio 37 (6-20) Glucose Level 186 mg/dL (70-99) Calcium Level 7.6 mg/dL (8.5-10.1) Phosphorus Level 1.9 mg/dL (2.6-4.7) Magnesium Level 1.8 mg/dL (1.8-2.4) Total Bilirubin 19.1 mg/dL (0.2-1.0) Aspartate Amino Transf (AST/SGOT) 178 U/L (15-37) Alanine Aminotransferase (ALT/SGPT) 58 U/L (16-63) Alkaline Phosphatase 226 U/L (46-116) Total Protein 6.2 g/dL (6.4-8.2) Albumin 3.6 g/dL (3.4-5.0) Albumin/Globulin Ratio 1.4 (1.0-1.7) O2 Saturation 98 % (92-99) Arterial Blood pH 7.39 (7.35-7.45) Arterial Blood pCO2 at Patient Temp 41 mmHg (35-46) Arterial Blood pO2 at Patient Temp 109 mmHg (85-108) Arterial Blood HCO3 24 mmol/L (21-28) Arterial Blood Base Excess -1 mmol/L (-3-3) FiO2 100 Lactic Acid Level 3.6 mmol/L (0.4-2.0) Glucose (Fingerstick) 147 mg/dL (70-99) Test 01/21/19 12:40 01/21/19 15:30 01/21/19 16:50 01/21/19 20:55 Sodium Level 140 mmol/L (136-145) 140 mmol/L (136-145) Potassium Level 3.5 mmol/L (3.5-5.1) 3.6 mmol/L (3.5-5.1) Chloride Level 101 mmol/L (98-107) 101 mmol/L (98-107) Carbon Dioxide Level 28 mmol/L (21-32) 28 mmol/L (21-32) Anion Gap 11 (6-14) 11 (6-14) Blood Urea Nitrogen 41 mg/dL (8-26) 41 mg/dL (8-26) Creatinine 1.2 mg/dL (0.7-1.3) 1.3 mg/dL (0.7-1.3) Estimated GFR (Cockcroft-Gault) 67.8 61.8 Glucose Level 167 mg/dL (70-99) 131 mg/dL (70-99) Calcium Level 7.7 mg/dL (8.5-10.1) 8.0 mg/dL (8.5-10.1) Hemoglobin 7.9 g/dL (13.0-17.5) Hematocrit 23.1 % (39.0-53.0) Mean Corpuscular Hemoglobin Concent 34 g/dL (31-37) Phosphorus Level 2.5 mg/dL (2.6-4.7) 1.5 mg/dL (2.6-4.7) Magnesium Level 1.7 mg/dL (1.8-2.4) 2.0 mg/dL (1.8-2.4) Glucose (Fingerstick) 137 mg/dL (70-99) Lactic Acid Level 3.9 mmol/L (0.4-2.0) Test 01/22/19 05:00 01/22/19 08:00 01/22/19 09:15 White Blood Count 15.9 x10^3/uL (4.0-11.0) Red Blood Count 2.35 x10^6/uL (4.30-5.70) Hemoglobin 7.7 g/dL (13.0-17.5) Hematocrit 21.7 % (39.0-53.0) Mean Corpuscular Volume 92 fL (79-100) Mean Corpuscular Hemoglobin 33 pg (25-35) Mean Corpuscular Hemoglobin Concent 35 g/dL (31-37) Red Cell Distribution Width 17.9 % (11.5-14.5) Platelet Count 44 x10^3/uL (140-400) Neutrophils (%) (Auto) 75 % (31-73) Lymphocytes (%) (Auto) 17 % (24-48) Monocytes (%) (Auto) 7 % (0-9) Eosinophils (%) (Auto) 0 % (0-3) Basophils (%) (Auto) 0 % (0-3) Neutrophils # (Auto) 11.9 x10^3/uL (1.8-7.7) Lymphocytes # (Auto) 2.7 x10^3/uL (1.0-4.8) Monocytes # (Auto) 1.2 x10^3/uL (0.0-1.1) Eosinophils # (Auto) 0.0 x10^3/uL (0.0-0.7) Basophils # (Auto) 0.1 x10^3/uL (0.0-0.2) Sodium Level 139 mmol/L (136-145) Potassium Level 3.8 mmol/L (3.5-5.1) Chloride Level 101 mmol/L (98-107) Carbon Dioxide Level 25 mmol/L (21-32) Anion Gap 13 (6-14) Blood Urea Nitrogen 40 mg/dL (8-26) Creatinine 1.3 mg/dL (0.7-1.3) Estimated GFR (Cockcroft-Gault) 61.8 BUN/Creatinine Ratio 31 (6-20) Glucose Level 120 mg/dL (70-99) Calcium Level 8.4 mg/dL (8.5-10.1) Phosphorus Level 2.3 mg/dL (2.6-4.7) Magnesium Level 1.8 mg/dL (1.8-2.4) Total Bilirubin 21.5 mg/dL (0.2-1.0) Aspartate Amino Transf (AST/SGOT) 192 U/L (15-37) Alanine Aminotransferase (ALT/SGPT) 62 U/L (16-63) Alkaline Phosphatase 281 U/L (46-116) Total Protein 6.0 g/dL (6.4-8.2) Albumin 3.7 g/dL (3.4-5.0) Albumin/Globulin Ratio 1.6 (1.0-1.7) Triglycerides Level 175 mg/dL (0-150) O2 Saturation 96 % (92-99) Arterial Blood pH 7.45 (7.35-7.45) Arterial Blood pCO2 at Patient Temp 33 mmHg (35-46) Arterial Blood pO2 at Patient Temp 87 mmHg (85-108) Arterial Blood HCO3 22 mmol/L (21-28) Arterial Blood Base Excess -2 mmol/L (-3-3) FiO2 100 Lactic Acid Level 4.0 mmol/L (0.4-2.0) Laboratory Tests Test 01/21/19 12:40 01/21/19 15:30 01/21/19 16:50 01/21/19 20:55 Sodium Level 140 mmol/L (136-145) 140 mmol/L (136-145) Potassium Level 3.5 mmol/L (3.5-5.1) 3.6 mmol/L (3.5-5.1) Chloride Level 101 mmol/L (98-107) 101 mmol/L (98-107) Carbon Dioxide Level 28 mmol/L (21-32) 28 mmol/L (21-32) Anion Gap 11 (6-14) 11 (6-14) Blood Urea Nitrogen 41 mg/dL (8-26) 41 mg/dL (8-26) Creatinine 1.2 mg/dL (0.7-1.3) 1.3 mg/dL (0.7-1.3) Estimated GFR (Cockcroft-Gault) 67.8 61.8 Glucose Level 167 mg/dL (70-99) 131 mg/dL (70-99) Calcium Level 7.7 mg/dL (8.5-10.1) 8.0 mg/dL (8.5-10.1) Hemoglobin 7.9 g/dL (13.0-17.5) Hematocrit 23.1 % (39.0-53.0) Mean Corpuscular Hemoglobin Concent 34 g/dL (31-37) Phosphorus Level 2.5 mg/dL (2.6-4.7) 1.5 mg/dL (2.6-4.7) Magnesium Level 1.7 mg/dL (1.8-2.4) 2.0 mg/dL (1.8-2.4) Glucose (Fingerstick) 137 mg/dL (70-99) Lactic Acid Level 3.9 mmol/L (0.4-2.0) Test 01/22/19 05:00 01/22/19 08:00 01/22/19 09:15 White Blood Count 15.9 x10^3/uL (4.0-11.0) Red Blood Count 2.35 x10^6/uL (4.30-5.70) Hemoglobin 7.7 g/dL (13.0-17.5) Hematocrit 21.7 % (39.0-53.0) Mean Corpuscular Volume 92 fL (79-100) Mean Corpuscular Hemoglobin 33 pg (25-35) Mean Corpuscular Hemoglobin Concent 35 g/dL (31-37) Red Cell Distribution Width 17.9 % (11.5-14.5) Platelet Count 44 x10^3/uL (140-400) Neutrophils (%) (Auto) 75 % (31-73) Lymphocytes (%) (Auto) 17 % (24-48) Monocytes (%) (Auto) 7 % (0-9) Eosinophils (%) (Auto) 0 % (0-3) Basophils (%) (Auto) 0 % (0-3) Neutrophils # (Auto) 11.9 x10^3/uL (1.8-7.7) Lymphocytes # (Auto) 2.7 x10^3/uL (1.0-4.8) Monocytes # (Auto) 1.2 x10^3/uL (0.0-1.1) Eosinophils # (Auto) 0.0 x10^3/uL (0.0-0.7) Basophils # (Auto) 0.1 x10^3/uL (0.0-0.2) Sodium Level 139 mmol/L (136-145) Potassium Level 3.8 mmol/L (3.5-5.1) Chloride Level 101 mmol/L (98-107) Carbon Dioxide Level 25 mmol/L (21-32) Anion Gap 13 (6-14) Blood Urea Nitrogen 40 mg/dL (8-26) Creatinine 1.3 mg/dL (0.7-1.3) Estimated GFR (Cockcroft-Gault) 61.8 BUN/Creatinine Ratio 31 (6-20) Glucose Level 120 mg/dL (70-99) Calcium Level 8.4 mg/dL (8.5-10.1) Phosphorus Level 2.3 mg/dL (2.6-4.7) Magnesium Level 1.8 mg/dL (1.8-2.4) Total Bilirubin 21.5 mg/dL (0.2-1.0) Aspartate Amino Transf (AST/SGOT) 192 U/L (15-37) Alanine Aminotransferase (ALT/SGPT) 62 U/L (16-63) Alkaline Phosphatase 281 U/L (46-116) Total Protein 6.0 g/dL (6.4-8.2) Albumin 3.7 g/dL (3.4-5.0) Albumin/Globulin Ratio 1.6 (1.0-1.7) Triglycerides Level 175 mg/dL (0-150) O2 Saturation 96 % (92-99) Arterial Blood pH 7.45 (7.35-7.45) Arterial Blood pCO2 at Patient Temp 33 mmHg (35-46) Arterial Blood pO2 at Patient Temp 87 mmHg (85-108) Arterial Blood HCO3 22 mmol/L (21-28) Arterial Blood Base Excess -2 mmol/L (-3-3) FiO2 100 Lactic Acid Level 4.0 mmol/L (0.4-2.0) Microbiology 01/15/19 - Final, Complete 01/15/19 - Final, Complete 01/15/19 - Final, Complete 01/15/19 Gram Stain Evaluation - Final, Complete 01/15/19 Sputum Culture - Final, Complete 01/15/19 Sputum Result 1 - Final, Complete 01/14/19 Blood Culture - Final, Complete NO GROWTH AFTER 5 DAYS 01/08/19 Urine Culture - Final, Complete 01/08/19 Urine Culture Result 1 (ELMA) - Final, Complete Medications Current Medications Sodium Chloride 1,000 ml @ 1,000 mls/hr 1X ONCE IV Last administered on 01/07/19at 19:27; Start 01/07/19 at 19:30; Stop 01/07/19 at 20:29; Status DC Ondansetron HCl (Zofran) 4 mg 1X ONCE IV Last administered on 01/07/19at 19:28; Start 01/07/19 at 19:30; Stop 01/07/19 at 19:31; Status DC Pantoprazole Sodium (PROTONIX VIAL for IV PUSH) 80 mg 1X ONCE IVP Last administered on 01/07/19at 19:50; Start 01/07/19 at 20:00; Stop 01/07/19 at 20:01; Status DC Pantoprazole Sodium 80 mg/ Sodium Chloride 100 ml @ 10 mls/hr 1X ONCE IV Last administered on 01/07/19at 20:00; Start 01/07/19 at 20:00; Stop 01/08/19 at 05:59; Status DC Sodium Chloride 1,000 ml @ 1,000 mls/hr 1X ONCE IV Last administered on 01/07/19at 22:12; Start 01/07/19 at 21:00; Stop 01/07/19 at 21:59; Status DC Sodium Chloride 1,000 ml @ 1,000 mls/hr 1X ONCE IV Last administered on 01/07/19at 20:40; Start 01/07/19 at 20:45; Stop 01/07/19 at 21:44; Status DC Potassium Chloride/Sodium Chloride 1,000 ml @ 75 mls/hr 1X ONCE IV Last administered on 01/07/19at 21:16; Start 01/07/19 at 21:30; Stop 01/08/19 at 10:49; Status DC Vancomycin HCl (Vanco Per Pharmacy) 1 each PRN DAILY PRN MC SEE COMMENTS Last administered on 01/08/19at 00:43; Start 01/07/19 at 21:00; Stop 01/08/19 at 06:39; Status DC Piperacillin Sod/ Tazobactam Sod (Zosyn Per Pharmacy) 1 each PRN DAILY PRN MC SEE COMMENTS; Start 01/07/19 at 21:00; Stop 01/18/19 at 12:16; Status DC Piperacillin Sod/ Tazobactam Sod 3.375 gm/Sodium Chloride 50 ml @ 100 mls/hr Q6HRS IV Last administered on 01/18/19at 05:54; Start 01/07/19 at 22:00; Stop 01/18/19 at 12:16; Status DC Vancomycin HCl 2 gm/Sodium Chloride 500 ml @ 250 mls/hr 1X ONCE IV Last administered on 01/07/19at 22:11; Start 01/07/19 at 22:00; Stop 01/07/19 at 23:59; Status DC Lorazepam (Ativan Inj) 1 mg 1X ONCE IV Last administered on 01/07/19at 23:22; Start 01/07/19 at 23:30; Stop 01/07/19 at 23:31; Status DC Lorazepam (Ativan Inj) 2 mg STK-MED ONCE .ROUTE ; Start 01/07/19 at 23:20; Stop 01/07/19 at 23:21; Status DC Vancomycin HCl 1.5 gm/Sodium Chloride 500 ml @ 250 mls/hr Q12H IV ; Start 01/08/19 at 10:00; Stop 01/08/19 at 06:39; Status DC Vancomycin HCl (Vancomycin Trough Level) 1 each 1X ONCE MC ; Start 01/09/19 at 09:30; Stop 01/09/19 at 09:31; Status Cancel Ondansetron HCl (Zofran) 4 mg PRN Q6HRS PRN IVP NAUSEA/VOMITING; Start 01/08/19 at 04:00; Status Cancel Pantoprazole Sodium 80 mg/ Sodium Chloride 100 ml @ 10 mls/hr Q10H IV Last administered on 01/09/19at 02:00; Start 01/08/19 at 06:00; Stop 01/09/19 at 11:00; Status DC Multivitamins 10 ml/Thiamine HCl 100 mg/Folic Acid 1 mg/Sodium Chloride 1,011.2 ml @ 100 mls/ hr DAILY IV Last administered on 01/12/19at 10:29; Start 01/08/19 at 09:00; Stop 01/12/19 at 19:07; Status DC Lorazepam (Ativan Inj) 2 mg PRN Q1HR PRN IV For CIWA 8-14 Last administered on 01/14/19at 21:01; Start 01/08/19 at 07:15 Lorazepam (Ativan Inj) 4 mg PRN Q1HR PRN IV For CIWA 15 or greater Last administered on 01/15/19at 08:40; Start 01/08/19 at 07:15 Haloperidol Lactate (Haldol Inj) 5 mg PRN Q4HRS PRN IVP Hallucinatns,Confusn,Delirium; Start 01/08/19 at 07:15 Diphenhydramine HCl (Benadryl) 25 mg PRN Q15MIN PRN IVP EPS symptoms 2'Haldol admin; Start 01/08/19 at 07:15 Clonidine HCl (Catapres) 0.1 mg PRN Q1HR PRN PO SBP > 180 or DBP > 100, MRX3; Start 01/08/19 at 07:15 Sodium Bicarbonate (Sodium Bicarb Adult 8.4% Syr) 50 meq 1X ONCE IV Last administered on 01/08/19at 08:04; Start 01/08/19 at 08:00; Stop 01/08/19 at 08:01; Status DC Propofol 100 ml @ As Directed STK-MED ONCE IV ; Start 01/08/19 at 08:19; Stop 01/08/19 at 08:19; Status DC Succinylcholine Chloride (Anectine) 200 mg STK-MED ONCE .ROUTE ; Start 01/08/19 at 08:19; Stop 01/08/19 at 08:19; Status DC Propofol 100 ml @ As Directed STK-MED ONCE IV ; Start 01/08/19 at 08:29; Stop 01/08/19 at 08:30; Status DC Fentanyl Citrate 30 ml @ 0 mls/hr CONT PRN PRN IV PER PROTOCOL Last administered on 01/22/19at 07:45; Start 01/08/19 at 09:00 Naloxone HCl (Narcan) 0.4 mg PRN Q2MIN PRN IV SEE INSTRUCTIONS; Start 01/08/19 at 09:00 Sodium Chloride 1,000 ml @ 25 mls/hr Q24H IV Last administered on 01/21/19at 11:05; Start 01/08/19 at 08:54 Fentanyl Citrate (Fentanyl 2ml Vial) 100 mcg STK-MED ONCE .ROUTE ; Start 01/08/19 at 08:55; Stop 01/08/19 at 08:55; Status DC Octreotide Acetate 500 mcg/ Sodium Chloride 101 ml @ 0 mls/hr CONT PRN IV SEE I/O RECORD Last administered on 01/08/19at 13:56; Start 01/08/19 at 09:00; Stop 01/08/19 at 16:55; Status DC Phytonadione (Vitamin K Ampule) 10 mg 1X ONCE SQ Last administered on 01/08/19at 09:56; Start 01/08/19 at 09:15; Stop 01/08/19 at 09:16; Status DC Metoclopramide HCl (Reglan Vial) 10 mg 1X ONCE IVP Last administered on 01/08/19at 14:36; Start 01/08/19 at 11:00; Stop 01/08/19 at 11:01; Status DC Midazolam HCl (Versed) 5 mg STK-MED ONCE .ROUTE ; Start 01/08/19 at 09:00; Sto p 01/08/19 at 09:01; Status DC Acetaminophen (Tylenol) 500 mg PRN Q6HRS PRN PO MILD PAIN / TEMP Last administered on 01/11/19at 17:46; Start 01/08/19 at 09:15; Stop 01/13/19 at 09:11; Status DC Tramadol HCl (Ultram) 50 mg PRN Q6HRS PRN PO PAIN MODERATE; Start 01/08/19 at 09:15 Morphine Sulfate (Morphine Sulfate) 2 mg PRN Q2HR PRN IV PAIN; Start 01/08/19 at 09:15 Ondansetron HCl (Zofran) 4 mg PRN Q6HRS PRN IVP NAUSEA/VOMITING, 1ST CHOICE; Start 01/08/19 at 09:15 Fentanyl Citrate (Fentanyl 2ml Vial) 100 mcg 1X ONCE IVP Last administered on 01/08/19at 09:42; Start 01/08/19 at 09:45; Stop 01/08/19 at 09:46; Status DC Midazolam HCl (Versed) 5 mg 1X ONCE IV Last administered on 01/08/19at 09:41; Start 01/08/19 at 09:45; Stop 01/08/19 at 09:46; Status DC Succinylcholine Chloride (Anectine) 200 mg 1X ONCE IV Last administered on 01/08/19 09:41; Start 01/08/19 at 09:45; Stop 01/08/19 at 09:46; Status DC Propofol 100 ml @ 1.524 mls/ hr CONT PRN IV SEE I/O RECORD Last administered on 01/14/19at 03:56; Start 01/08/19 at 09:45 Midazolam HCl 100 ml @ 5 mls/hr CONT PRN IV SEE I/O RECORD Last administered on 01/22/19at 12:04; Start 01/08/19 at 11:15 Vecuronium Treynor (Norcuron Bolus) 6 mg PRN Q4HRS PRN IV VENT ASYNCHRONY Last administered on 01/22/19 01:19; Start 01/08/19 at 12:00 Benzocaine (Hurricaine One) 2 spray STK-MED ONCE .ROUTE ; Start 01/07/19 at 12:00; Stop 01/08/19 at 14:20; Status DC Lidocaine HCl (Xylocaine 2% Topical 5gm Tube) 5 amanda STK-MED ONCE TP ; Start 01/07/19 at 12:00; Stop 01/08/19 at 14:20; Status DC Lactobacillus Rhamnosus (Culturelle) 1 cap BID PO ; Start 01/08/19 at 21:00; Stop 01/09/19 at 09:29; Status DC Acetaminophen (Tylenol Supp) 650 mg PRN Q6HRS PRN ND MILD PAIN / TEMP Last administered on 01/09/19at 23:44; Start 01/08/19 at 18:15 Norepinephrine Bitartrate 250 ml @ 18.938 mls/ hr CONT PRN IV SEE I/O RECORD Last administered on 01/19/19at 06:31; Start 01/09/19 at 01:45; Stop 01/19/19 at 11:30; Status DC Potassium Chloride (Klor-Con) 40 meq 1X ONCE PO Last administered on 01/09/19at 11:34; Start 01/09/19 at 09:45; Stop 01/09/19 at 09:46; Status DC Metoclopramide HCl (Reglan Vial) 10 mg PRN Q6HRS PRN IVP NAUSEA/VOMITING, 2ND CHOICE Last administered on 01/14/19at 21:01; Start 01/09/19 at 10:15 Albumin Human 100 ml @ 100 mls/hr 1X ONCE IV Last administered on 01/09/19at 10:49; Start 01/09/19 at 10:15; Stop 01/09/19 at 11:14; Status DC Lactulose (LACTULOSE 300ML for RECTAL) 200 gm Q6HRS ND ; Start 01/09/19 at 12:00; Stop 01/09/19 at 11:04; Status DC Insulin Human Lispro (HumaLOG) 0-9 UNITS TIDWMEALS SQ Last administered on 01/21/19 08:00; Start 01/09/19 at 12:00 Dextrose (Dextrose 50%-Water Syringe) 12.5 gm PRN Q15MIN PRN IV SEE COMMENTS Last administered on 01/18/19at 22:35; Start 01/09/19 at 10:30 Fentanyl Citrate (Fentanyl 600 Mcg/30 ml SHACTOR HELPER) 600 mcg STK-MED ONCE IV ; Start 01/08/19 at 15:25; Stop 01/09/19 at 10:27; Status DC Pantoprazole Sodium (PROTONIX VIAL for IV PUSH) 40 mg DAILYAC IVP Last administered on 01/22/19at 07:56; Start 01/10/19 at 07:30 Lactulose (Lactulose) 20 gm DAILY PO Last administered on 01/12/19 08:24; Start 01/09/19 at 11:30; Stop 01/12/19 at 10:12; Status DC Potassium Bicarbonate (Potassium Effervescent Tablet) 40 meq BIDWMEALS FT Last administered on 01/10/19 17:49; Start 01/10/19 at 09:00; Stop 01/11/19 at 09:20; Status DC Linezolid/Dextrose 300 ml @ 300 mls/hr Q12HR IV Last administered on 01/16/19at 08:26; Start 01/11/19 at 13:00; Stop 01/16/19 at 08:29; Status DC Perflutren Protein Type A Microsphe (Optison) 0.66 mg 1X ONCE IV ; Start 01/11/19 at 13:30; Stop 01/11/19 at 13:31; Status DC Albumin Human 100 ml @ 100 mls/hr 1X ONCE IV Last administered on 01/12/19at 08:25; Start 01/12/19 at 07:45; Stop 01/12/19 at 08:44; Status DC Lactulose (Lactulose) 20 gm PRN DAILY PRN PO constipation; Start 01/12/19 at 10:15; Stop 01/13/19 at 09:11; Status DC Acetaminophen (Tylenol) 650 mg PRN Q6HRS PRN PEG MILD PAIN / TEMP Last administered on 01/14/19at 09:11; Start 01/12/19 at 16:30 Lactulose (Lactulose) 20 gm TID PO Last administered on 01/14/19at 21:01; Start 01/13/19 at 10:00 Albumin Human 500 ml @ 125 mls/hr 1X ONCE IV Last administered on 01/13/19at 09:40; Start 01/13/19 at 10:00; Stop 01/13/19 at 13:59; Status DC Bisacodyl (Dulcolax Supp) 10 mg 1X ONCE ND Last administered on 01/13/19at 10:14; Start 01/13/19 at 11:00; Stop 01/13/19 at 11:01; Status DC Lidocaine HCl (Buffered Lidocaine 1%) 3 ml 1X ONCE INJ Last administered on 01/13/19at 11:00; Start 01/13/19 at 11:00; Stop 01/13/19 at 11:01; Status DC Heparin Sodium (Porcine) (Heparin Sodium) 10,000 unit STK-MED ONCE .ROUTE ; Start 01/13/19 at 10:59; Stop 01/13/19 at 11:00; Status DC Darbepoetin Giorgi (ARANESP for DIALYSIS PTS) 60 mcg [id number] SQ Last administered on 01/20/19at 21:43; Start 01/13/19 at 21:00 Info (Tpn Per Pharmacy) 1 each PRN DAILY PRN MC SEE COMMENTS Last administered on 01/22/19at 11:27; Start 01/13/19 at 11:15 Sodium Chloride 1,000 ml @ 1,000 mls/hr Q1H PRN IV hypotension; Start 01/13/19 at 11:30; Stop 01/13/19 at 19:00; Status DC Albumin Human 200 ml @ 200 mls/hr 1X PRN PRN IV Hypotension; Start 01/13/19 at 11:30; Stop 01/13/19 at 17:29; Status DC Sodium Chloride 1,000 ml @ 400 mls/hr Q2H30M PRN IV PATENCY; Start 01/13/19 at 11:30; Stop 01/13/19 at 19:00; Status DC Info (PHARMACY MONITORING -- do not chart) 1 each PRN DAILY PRN MC SEE COMMENTS; Start 01/13/19 at 11:30 Info (PHARMACY MONITORING -- do not chart) 1 each PRN DAILY PRN MC SEE COMMENTS; Start 01/13/19 at 11:30; Status UNV Sodium Acetate 40 meq/Potassium Acetate 30 meq/ Calcium Gluconate 10 meq/ Multivitamins 10 ml/Chromium/ Copper/Manganese/ Seleni/Zn 1 ml/ Total Parenteral Nutrition/Amino Acids/Dextrose/ Fat Emulsion Intravenous 1,512 ml @ 63 mls/hr TPN CONT IV Last administered on 01/13/19at 21:54; Start 01/13/19 at 22:00; Stop 01/14/19 at 21:59; Status DC Multi-Ingred Cream/Lotion/Oil/ Oint (Artificial Tears Eye Ointment) 1 amanda PRN Q1HR PRN OU DRY EYE Last administered on 01/13/19at 17:14; Start 01/13/19 at 1 6:45 Docusate Sodium (Enemeez) 283 mg 1X ONCE ND Last administered on 01/13/19at 17:14; Start 01/13/19 at 16:45; Stop 01/13/19 at 16:47; Status DC Levofloxacin/ Dextrose 100 ml @ 100 mls/hr Q24H IV Last administered on 01/22/19at 08:37; Start 01/14/19 at 09:00 Metoclopramide HCl (Reglan Vial) 5 mg 1X ONCE IVP Last administered on 01/14/19at 10:51; Start 01/14/19 at 10:30; Stop 01/14/19 at 10:31; Status DC Dexmedetomidine HCl 400 mcg/ Sodium Chloride 100 ml @ 0 mls/hr CONT PRN IV AGITATION Last administered on 01/22/19at 12:04; Start 01/14/19 at 11:30 Sodium Chloride 1,000 ml @ 1,000 mls/hr Q1H PRN IV hypotension; Start 01/14/19 at 11:26; Stop 01/14/19 at 17:25; Status DC Albumin Human 200 ml @ 200 mls/hr 1X PRN PRN IV Hypotension; Start 01/14/19 at 11:30; Stop 01/14/19 at 17:29; Status DC Sodium Chloride 1,000 ml @ 400 mls/hr Q2H30M PRN IV PATENCY; Start 01/14/19 at 11:26; Stop 01/14/19 at 23:25; Status DC Info (PHARMACY MONITORING -- do not chart) 1 each PRN DAILY PRN MC SEE AMBER TS; Start 01/14/19 at 11:30; Status UNV Info (PHARMACY MONITORING -- do not chart) 1 each PRN DAILY PRN MC SEE COMMENTS; Start 01/14/19 at 11:30; Status UNV Sodium Chloride 30 meq/Sodium Acetate 40 meq/ Potassium Acetate 30 meq/Calcium Gluconate 10 meq/ Multivitamins 10 ml/Chromium/ Copper/Manganese/ Seleni/Zn 1 ml/ Total Parenteral Nutrition/Amino Acids/Dextrose/ Fat Emulsion Intravenous 1,512 ml @ 63 mls/hr TPN CONT IV Last administered on 01/15/19at 00:05; Start 01/14/19 at 22:00; Stop 01/15/19 at 21:59; Status DC Artificial Tears (Artificial Tears) 1 drop Q4H PRN OU DRY EYE Last administered on 01/14/19at 16:43; Start 01/14/19 at 15:30 Sodium Bicarbonate (Sodium Bicarb Adult 8.4% Syr) 50 meq STK-MED ONCE .ROUTE ; Start 01/15/19 at 08:25; Stop 01/15/19 at 08:25; Status DC Sodium Bicarbonate (Sodium Bicarb Adult 8.4% Syr) 100 meq 1X ONCE IV Last administered on 01/15/19at 08:31; Start 01/15/19 at 08:30; Stop 01/15/19 at 08:31; Status DC Sodium Chloride 40 meq/Sodium Acetate 40 meq/ Potassium Acetate 10 meq/Calcium Gluconate 10 meq/ Multivitamins 10 ml/Chromium/ Copper/Manganese/ Seleni/Zn 1 ml/ Total Parenteral Nutrition/Amino Acids/Dextrose/ Fat Emulsion Intravenous 1,512 ml @ 63 mls/hr TPN CONT IV ; Start 01/15/19 at 22:00; Stop 01/15/19 at 11:06; Status DC Vasopressin 40 unit/Dextrose 102 ml @ 6 mls/hr CONT PRN IV SEE I/O RECORD Last administered on 01/20/19at 19:31; Start 01/15/19 at 10:00 Sodium Chloride 1,000 ml @ 1,000 mls/hr Q1H PRN IV hypotension; Start 01/15/19 at 10:00; Stop 01/15/19 at 15:59; Status DC Albumin Human 200 ml @ 200 mls/hr 1X PRN PRN IV Hypotension Last administered on 01/15/19at 11:07; Start 01/15/19 at 10:00; Stop 01/15/19 at 15:59; Status DC Sodium Chloride 1,000 ml @ 400 mls/hr Q2H30M PRN IV PATENCY; Start 01/15/19 at 10:00; Stop 01/15/19 at 21:59; Status DC Info (PHARMACY MONITORING -- do not chart) 1 each PRN DAILY PRN MC SEE COMMENTS; Start 01/15/19 at 10:00; Stop 01/15/19 at 10:57; Status DC Info (PHARMACY MONITORING -- do not chart) 1 each PRN DAILY PRN MC SEE COMMENTS; Start 01/15/19 at 10:00; Stop 01/15/19 at 10:57; Status DC Sodium Chloride 40 meq/Sodium Acetate 40 meq/ Potassium Acetate 10 meq/Calcium Gluconate 10 meq/ Multivitamins 10 ml/Chromium/ Copper/Manganese/ Seleni/Zn 1 ml/ Thiamine HCl 100 mg/Total Parenteral Nutrition/Amino Acids/Dextrose/ Fat Emulsion Intravenous 1,512 ml @ 63 mls/hr TPN CONT IV ; Start 01/15/19 at 22:00; Stop 01/15/19 at 14:18; Status DC Potassium Chloride 20 meq/ Bicarbonate Dialysis Soln w/ out KCl 5,010 ml @ 1,000 mls/hr Q5H1M IV Last administered on 01/15/19at 15:40; Start 01/15/19 at 14:00; Stop 01/15/19 at 19:00; Status DC Potassium Chloride 20 meq/ Bicarbonate Dialysis Soln w/ out KCl 5,010 ml @ 1,000 mls/hr Q5H1M IV Last administered on 01/15/19at 15:50; Start 01/15/19 at 14:00; Stop 01/15/19 at 19:00; Status DC Potassium Chloride 20 meq/ Bicarbonate Dialysis Soln w/ out KCl 5,010 ml @ 1,000 mls/hr Q5H1M IV Last administered on 01/15/19at 15:50; Start 01/15/19 at 14:00; Stop 01/15/19 at 19:00; Status DC Albumin Human 100 ml @ 100 mls/hr Q6HRS IV Last administered on 01/22/19at 06:12; Start 01/15/19 at 14:00 Potassium Phosphate 20 mmol/ Sodium Chloride 256.6667 ml @ 128.... PRN Q6HRS PRN IV FOR PO4 < 2.5 Last administered on 01/19/19at 21:40; Start 01/15/19 at 14:00 Sodium Chloride 40 meq/Sodium Acetate 40 meq/ Calcium Gluconate 10 meq/ Multivitamins 10 ml/Chromium/ Copper/Manganese/ Seleni/Zn 1 ml/ Thiamine HCl 100 mg/Total Parenteral Nutrition/Amino Acids/Dextrose/ Fat Emulsion Intravenous 1,512 ml @ 63 mls/hr TPN CONT IV Last administered on 01/15/19at 21:45; Start 01/15/19 at 22:00; Stop 01/16/19 at 21:59; Status DC Potassium Chloride 20 meq/ Bicarbonate Dialysis Soln w/ out KCl 5,010 ml @ 500 mls/hr Q10H2M IV Last administered on 01/17/19at 10:43; Start 01/15/19 at 19:01; Stop 01/17/19 at 15:00; Status DC Potassium Chloride 20 meq/ Bicarbonate Dialysis Soln w/ out KCl 5,010 ml @ 1,200 mls/hr Q4H11M IV Last administered on 01/17/19at 10:36; Start 01/15/19 at 19:01; Stop 01/17/19 at 15:00; Status DC Potassium Chloride 20 meq/ Bicarbonate Dialysis Soln w/ out KCl 5,010 ml @ 1,200 mls/hr Q4H11M IV Last administered on 01/17/19at 00:17; Start 01/15/19 at 19:00; Stop 01/17/19 at 15:00; Status DC Daptomycin 500 mg/ Sodium Chloride 50 ml @ 100 mls/hr Q48H IV Last administered on 01/20/19at 09:16; Start 01/16/19 at 09:00; Stop 01/22/19 at 08:12; Status DC Sodium Chloride 60 meq/Sodium Acetate 40 meq/ Calcium Gluconate 10 meq/ Multivitamins 10 ml/Chromium/ Copper/Manganese/ Seleni/Zn 1 ml/ Thiamine HCl 100 mg/Total Parenteral Nutrition/Amino Acids/Dextrose/ Fat Emulsion Intravenous 1, 512 ml @ 63 mls/hr TPN CONT IV Last administered on 01/16/19at 22:00; Start 01/16/19 at 22:00; Stop 01/18/19 at 10:50; Status DC Sodium Chloride 80 meq/Calcium Gluconate 10 meq/ Multivitamins 10 ml/Chromium/ Copper/Manganese/ Seleni/Zn 1 ml/ Thiamine HCl 100 mg/Total Parenteral Nutrition/Amino Acids/Dextrose/ Fat Emulsion Intravenous 1,512 ml @ 63 mls/hr TPN CONT IV Last administered on 01/17/19at 21:52; Start 01/17/19 at 22:00; Stop 01/18/19 at 21:59; Status DC Potassium Chloride 20 meq/ Sodium Bicarbonate 40 meq/Bicarbonate Dialysis Soln w/ out KCl 5,050 ml @ 500 mls/hr Q10H6M IV Last administered on 01/18/19at 08:17; Start 01/17/19 at 15:00; Stop 01/18/19 at 18:00; Status DC Potassium Chloride 20 meq/ Sodium Bicarbonate 40 meq/Bicarbonate Dialysis Soln w/ out KCl 5,050 ml @ 1,200 mls/hr Q4H13M IV Last administered on 01/18/19at 06:01; Start 01/17/19 at 15:00; Stop 01/18/19 at 09:51; Status DC Potassium Chloride 20 meq/ Sodium Bicarbonate 40 meq/Bicarbonate Dialysis Soln w/ out KCl 5,050 ml @ 1,200 mls/hr Q4H13M IV Last administered on 01/18/19at 06:01; Start 01/17/19 at 15:00; Stop 01/18/19 at 09:51; Status DC Potassium Phosphate 20 mmol/ Sodium Chloride 256.6667 ml @ 128.... ONCE ONCE IV Last administered on 01/17/19at 18:21; Start 01/17/19 at 17:45; Stop 01/17/19 at 19:44; Status DC Calcium Chloride 12.5 meq/ Magnesium Sulfate 2.5 meq/Potassium Chloride 10 meq/ Sodium Bicarbonate 40 meq/Bicarbonate Dialysis Soln w/ out KCl 5,054.5443 ml @ 1,200 mls/hr Q4H13M IV Last administered on 01/19/19at 03:20; Start 01/18/19 at 10:00; Stop 01/19/19 at 07:47; Status DC Calcium Chloride 12.5 meq/ Magnesium Sulfate 2.5 meq/Potassium Chloride 10 meq/ Sodium Bicarbonate 40 meq/Bicarbonate Dialysis Soln w/ out KCl 5,054.5443 ml @ 1,200 mls/hr Q4H13M IV Last administered on 01/19/19at 03:21; Start 01/18/19 at 10:00; Stop 01/19/19 at 07:47; Status DC Calcium Chloride 12.5 meq/ Magnesium Sulfate 2.5 meq/Potassium Chloride 10 meq/ Sodium Bicarbonate 40 meq/Bicarbonate Dialysis Soln w/ out KCl 5,054.5443 ml @ 500 mls/hr Q10H7M IV Last administered on 01/19/19at 05:16; Start 01/18/19 at 18:00; Stop 01/19/19 at 07:48; Status DC Meropenem 500 mg/ Sodium Chloride 50 ml @ 100 mls/hr Q8HRS IV Last administered on 01/19/19at 06:02; Start 01/18/19 at 14:00; Stop 01/19/19 at 09:24; Status DC Sodium Chloride 80 meq/Calcium Gluconate 10 meq/ Multivitamins 10 ml/Chromium/ Copper/Manganese/ Seleni/Zn 1 ml/ Thiamine HCl 100 mg/Total Parenteral Nutrition/Amino Acids/Dextrose/ Fat Emulsion Intravenous 1,512 ml @ 63 mls/hr TPN CONT IV Last administered on 01/18/19at 21:37; Start 01/18/19 at 22:00; Stop 01/19/19 at 21:59; Status DC Epinephrine HCl 4 mg/Sodium Chloride 254 ml @ 41.822 mls/ hr CONT PRN IV SEE I/O RECORD; Start 01/18/19 at 16:15; Stop 01/19/19 at 18:00; Status DC Methylprednisolone Sodium Succinate (SOLU-Medrol 125MG VIAL) 125 mg 1X ONCE IV Last administered on 01/18/19at 16:30; Start 01/18/19 at 16:30; Stop 01/18/19 at 16:31; Status DC Methylprednisolone Sodium Succinate (SOLU-Medrol 125MG VIAL) 125 mg STK-MED ONCE .ROUTE ; Start 01/18/19 at 16:26; Stop 01/18/19 at 16:26; Status DC Calcium Chloride 12.5 meq/ Potassium Chloride 5 meq/ Sodium Bicarbonate 40 meq/Bicarbonate Dialysis Soln w/ out KCl 5,051.4286 ml @ 1,200 mls/hr Q4H13M IV Last administered on 01/20/19at 11:31; Start 01/19/19 at 08:00; Stop 01/20/19 at 11:30; Status DC Calcium Chloride 12.5 meq/ Potassium Chloride 5 meq/ Sodium Bicarbonate 40 meq/Bicarbonate Dialysis Soln w/ out KCl 5,051.4286 ml @ 1,200 mls/hr Q4H13M IV Last administered on 01/20/19at 11:30; Start 01/19/19 at 08:00; Stop 01/20/19 at 11:30; Status DC Calcium Chloride 12.5 meq/ Potassium Chloride 5 meq/ Sodium Bicarbonate 40 meq/Bicarbonate Dialysis Soln w/ out KCl 5,051.4286 ml @ 500 mls/hr Q10H7M IV Last administered on 01/20/19at 03:09; Start 01/19/19 at 15:00; Stop 01/20/19 at 11:30; Status DC Meropenem 1 gm/ Sodium Chloride 100 ml @ 200 mls/hr Q12H IV Last administered on 01/19/19at 14:36; Start 01/19/19 at 14:00; Stop 01/19/19 at 16:00; Status DC Albumin Human 100 ml @ As Directed STK-MED ONCE IV ; Start 01/19/19 at 10:44; Stop 01/19/19 at 10:44; Status DC Norepinephrine Bitartrate 32 mg/ Sodium Chloride 250 ml @ 7 mls/hr CONT PRN IV SEE I/O RECORD Last administered on 01/19/19at 14:15; Start 01/19/19 at 11:30 Sodium Chloride 80 meq/Calcium Gluconate 10 meq/ Multivitamins 10 ml/Chromium/ Copper/Manganese/ Seleni/Zn 1 ml/ Thiamine HCl 100 mg/Total Parenteral Nutrition/Amino Acids/Dextrose/ Fat Emulsion Intravenous 1,200 ml @ 50 mls/hr TPN CONT IV Last administered on 01/19/19at 21:30; Start 01/19/19 at 22:00; Stop 01/20/19 at 21:59; Status DC Epinephrine HCl 8 mg/Sodium Chloride 258 ml @ 20.9 mls/hr CONT PRN IV SEE I/O RECORD; Start 01/19/19 at 14:15 Meropenem 1 gm/ Sodium Chloride 50 ml @ 100 mls/hr Q12H IV Last administered on 01/22/19at 02:16; Start 01/20/19 at 02:00 Albumin Human 100 ml @ As Directed STK-MED ONCE IV ; Start 01/19/19 at 17:00; Stop 01/19/19 at 17:00; Status DC Potassium Phosphate 20 mmol/ Sodium Chloride 256.6667 ml @ 128.... 1X ONCE IV Last administered on 01/20/19at 06:19; Start 01/20/19 at 06:15; Stop 01/20/19 at 08:14; Status DC Phytonadione 10 mg/Dextrose 51 ml @ 102 mls/hr 1X ONCE IV Last administered on 01/20/19at 11:07; Start 01/20/19 at 10:45; Stop 01/20/19 at 11:14; Status DC Calcium Chloride 12.5 meq/ Potassium Chloride 5 meq/ Bicarbonate Dialysis Soln w/ out KCl 5,011.4286 ml @ 1,200 mls/hr Q4H11M IV Last administered on 01/22/19at 12:05; Start 01/20/19 at 11:00 Calcium Chloride 12.5 meq/ Potassium Chloride 5 meq/ Bicarbonate Dialysis Soln w/ out KCl 5,011.4286 ml @ 1,200 mls/hr Q4H11M IV ; Start 01/20/19 at 11:30; Stop 01/20/19 at 10:31; Status DC Calcium Chloride 12.5 meq/ Potassium Chloride 5 meq/ Bicarbonate Dialysis Soln w/ out KCl 5,011.4286 ml @ 1,200 mls/hr Q4H11M IV Last administered on 01/22/19at 12:05; Start 01/20/19 at 10:30 Calcium Chloride 12.5 meq/ Potassium Chloride 5 meq/ Bicarbonate Dialysis Soln w/ out KCl 5,011.4286 ml @ 500 mls/hr Q10H2M IV Last administered on 01/22/19at 07:59; Start 01/20/19 at 11:30 Sodium Chloride 80 meq/Calcium Gluconate 20 meq/ Multivitamins 10 ml/Chromium/ Copper/Manganese/ Seleni/Zn 1 ml/ Thiamine HCl 100 mg/Total Parenteral Nutrition/Amino Acids/Dextrose/ Fat Emulsion Intravenous 1,200 ml @ 50 mls/hr TPN CONT IV Last administered on 01/20/19at 21:43; Start 01/20/19 at 22:00; Stop 01/21/19 at 21:59; Status DC Potassium Phosphate 40 mmol/ Sodium Chloride 263.3333 ml @ 62.5 mls/hr 1X ONCE IV Last administered on 01/20/19at 16:03; Start 01/20/19 at 16:00; Stop 01/20/19 at 20:12; Status DC Sodium Phosphate 40 mmol/Dextrose 263.3333 ml @ 62.5 mls/hr 1X ONCE IV Last administered on 01/21/19at 09:26; Start 01/21/19 at 09:00; Stop 01/21/19 at 13:13; Status DC Sodium Chloride 80 meq/Calcium Gluconate 25 meq/ Multivitamins 10 ml/Chromium/ Copper/Manganese/ Seleni/Zn 1 ml/ Thiamine HCl 100 mg/Total Parenteral Nutrition/Amino Acids/Dextrose/ Fat Emulsion Intravenous 1,512 ml @ 63 mls/hr TPN CONT IV Last administered on 01/21/19at 22:09; Start 01/21/19 at 22:00; Stop 01/22/19 at 21:59 Epinephrine HCl (EPINEPHrine SYRINGE) 1 mg STK-MED ONCE .ROUTE ; Start 01/19/19 at 12:00; Stop 01/21/19 at 15:55; Status DC Sodium Bicarbonate (Sodium Bicarb Adult 8.4% Syr) 50 meq STK-MED ONCE .ROUTE ; Start 01/19/19 at 12:00; Stop 01/21/19 at 15:55; Status DC Magnesium Sulfate 50 ml @ 25 mls/hr 1X ONCE IV Last administered on 01/21/19at 16:24; Start 01/21/19 at 16:30; Stop 01/21/19 at 18:29; Status DC Potassium Phosphate 40 mmol/ Sodium Chloride 263.3333 ml @ 62.5 mls/hr 1X ONCE IV Last administered on 01/21/19at 22:00; Start 01/21/19 at 21:45; Stop 01/22/19 at 01:57; Status DC Potassium Phosphate 20 mmol/ Sodium Chloride 256.6667 ml @ 62.5 mls/hr 1X ONCE IV Last administered on 01/22/19at 06:22; Start 01/22/19 at 06:30; Stop 01/22/19 at 10:36; Status DC Sodium Chloride 80 meq/Calcium Gluconate 25 meq/ Multivitamins 10 ml/Chromium/ Copper/Manganese/ Seleni/Zn 1 ml/ Thiamine HCl 100 mg/Total Parenteral Nutrition/Amino Acids/Dextrose/ Fat Emulsion Intravenous 1,512 ml @ 63 mls/hr TPN CONT IV ; Start 01/22/19 at 22:00 Vitals/I & O Vital Sign - Last 24 Hours 01/21/19 01/21/19 01/21/19 01/21/19 12:30 13:00 13:02 13:30 Temp 97.0 96.6 97.0 96.6 Pulse 75 73 75 Resp 24 24 24 B/P (MAP) 140/56 86/53 (64) 98/46 Pulse Ox 100 100 O2 Delivery Ventilator Ventilator 01/21/19 01/21/19 01/21/19 01/21/19 14:00 14:34 14:45 15:00 Temp 97.8 97.8 Pulse 81 89 81 Resp 24 24 24 24 B/P (MAP) 129/67 (87) 144/66 129/58 (81) Pulse Ox 100 100 100 O2 Delivery Ventilator Ventilator Ventilator 01/21/19 01/21/19 01/21/19 01/21/19 15:18 15:39 16:00 16:30 Temp 97.8 97.8 Pulse 90 Resp 24 24 B/P (MAP) 140/62 (88) Pulse Ox 100 100 100 O2 Delivery Ventilator Mechanical Ventilator Ventilator Ventilator 01/21/19 01/21/19 01/21/19 01/21/19 17:00 18:00 18:10 19:00 Temp 98.2 98.2 Pulse 81 103 98 Resp 24 25 24 B/P (MAP) 131/59 (83) 106/61 (76) 124/60 (81) Pulse Ox 100 100 100 100 O2 Delivery Ventilator Ventilator Ventilator Ventilator 01/21/19 01/21/19 01/21/19 01/21/19 19:52 20:00 20:00 20:08 Pulse 101 Resp 24 B/P (MAP) 101/46 (64) Pulse Ox 100 100 100 O2 Delivery Ventilator Mechanical Ventilator Ventilator Ventilator 01/21/19 01/21/19 01/21/19 01/21/19 20:38 21:00 22:00 22:58 Pulse 102 103 Resp 26 24 B/P (MAP) 104/55 (71) 98/53 (68) Pulse Ox 100 99 99 99 O2 Delivery Ventilator Ventilator Ventilator Ventilator 01/21/19 01/21/19 01/22/19 01/22/19 23:00 23:59 00:00 01:00 Temp 99.3 99.3 Pulse 104 102 100 Resp 24 24 24 B/P (MAP) 94/48 (63) 95/52 (66) 166/75 (105) Pulse Ox 99 100 93 O2 Delivery Ventilator Mechanical Ventilator Ventilator Ventilator 01/22/19 01/22/19 01/22/19 01/22/19 01:15 01:20 01:50 02:00 Pulse 100 Resp 25 B/P (MAP) 104/45 (64) Pulse Ox 89 99 99 98 O2 Delivery Ventilator Ventilator Ventilator Ventilator 01/22/19 01/22/19 01/22/19 01/22/19 03:00 03:34 04:00 04:00 Temp 99.2 99.2 Pulse 101 99 Resp 26 24 B/P (MAP) 116/51 (72) 118/43 (68) Pulse Ox 100 100 100 O2 Delivery Ventilator Ventilator Ventilator Mechanical Ventilator 01/22/19 01/22/19 01/22/19 01/22/19 05:00 05:00 06:00 07:00 Pulse 97 97 94 Resp 24 24 24 B/P (MAP) 107/48 (67) 107/36 (59) 95/54 (68) Pulse Ox 100 100 100 100 O2 Delivery Ventilator Ventilator Ventilator Ventilator 01/22/19 01/22/19 01/22/19 01/22/19 07:45 08:00 08:00 08:13 Temp 97.4 97.4 Pulse 94 Resp 24 24 B/P (MAP) 82/41 (55) Pulse Ox 100 100 100 O2 Delivery Ventilator Mechanical Ventilator Ventilator Ventilator 01/22/19 01/22/19 01/22/19 01/22/19 08:38 09:00 10:00 10:07 Pulse 96 99 Resp 24 24 24 B/P (MAP) 104/50 (68) 121/60 (80) Pulse Ox 100 100 100 100 O2 Delivery Ventilator Ventilator Ventilator Ventilator 01/22/19 01/22/19 11:00 12:02 Pulse 93 Resp 24 B/P (MAP) 106/54 (71) Pulse Ox 100 100 O2 Delivery Ventilator Ventilator Intake and Output 01/21/19 01/21/19 01/22/19 15:00 23:00 07:00 Intake Total 1131.52 ml 1350.86 ml Output Total 0 ml 0 ml 0 ml Balance 1131.52 ml 1350.86 ml 0 ml DEENA LUTHER MD Jan 22, 2019 12:26
--- NOTE | 2019-01-22 13:13 | PDOC ---
Objective: Objective: No stools, too unstable to turn. On TPN and IV PPI. Vital Signs: Vital Signs Date Time Temp Pulse Resp B/P (MAP) Pulse Ox O2 Delivery O2 Flow Rate FiO2 01/22/19 12:02 100 Ventilator 01/22/19 11:00 93 24 106/54 (71) 01/22/19 08:00 97.4 97.4 Labs: Laboratory Tests Test 01/21/19 15:30 01/21/19 16:50 01/21/19 20:55 01/22/19 05:00 Hemoglobin 7.9 g/dL 7.7 g/dL Hematocrit 23.1 % 21.7 % Mean Corpuscular Hemoglobin Concent 34 g/dL 35 g/dL Phosphorus Level 2.5 mg/dL 1.5 mg/dL 2.3 mg/dL Magnesium Level 1.7 mg/dL 2.0 mg/dL 1.8 mg/dL Glucose (Fingerstick) 137 mg/dL Sodium Level 140 mmol/L 139 mmol/L Potassium Level 3.6 mmol/L 3.8 mmol/L Chloride Level 101 mmol/L 101 mmol/L Carbon Dioxide Level 28 mmol/L 25 mmol/L Anion Gap 11 13 Blood Urea Nitrogen 41 mg/dL 40 mg/dL Creatinine 1.3 mg/dL 1.3 mg/dL Estimated GFR (Cockcroft-Gault) 61.8 61.8 Glucose Level 131 mg/dL 120 mg/dL Lactic Acid Level 3.9 mmol/L Calcium Level 8.0 mg/dL 8.4 mg/dL White Blood Count 15.9 x10^3/uL Red Blood Count 2.35 x10^6/uL Mean Corpuscular Volume 92 fL Mean Corpuscular Hemoglobin 33 pg Red Cell Distribution Width 17.9 % Platelet Count 44 x10^3/uL Neutrophils (%) (Auto) 75 % Lymphocytes (%) (Auto) 17 % Monocytes (%) (Auto) 7 % Eosinophils (%) (Auto) 0 % Basophils (%) (Auto) 0 % Neutrophils # (Auto) 11.9 x10^3/uL Lymphocytes # (Auto) 2.7 x10^3/uL Monocytes # (Auto) 1.2 x10^3/uL Eosinophils # (Auto) 0.0 x10^3/uL Basophils # (Auto) 0.1 x10^3/uL BUN/Creatinine Ratio 31 Total Bilirubin 21.5 mg/dL Aspartate Amino Transf (AST/SGOT) 192 U/L Alanine Aminotransferase (ALT/SGPT) 62 U/L Alkaline Phosphatase 281 U/L Total Protein 6.0 g/dL Albumin 3.7 g/dL Albumin/Globulin Ratio 1.6 Triglycerides Level 175 mg/dL Test 01/22/19 08:00 01/22/19 09:15 O2 Saturation 96 % Arterial Blood pH 7.45 Arterial Blood pCO2 at Patient Temp 33 mmHg Arterial Blood pO2 at Patient Temp 87 mmHg Arterial Blood HCO3 22 mmol/L Arterial Blood Base Excess -2 mmol/L FiO2 100 Lactic Acid Level 4.0 mmol/L Imaging: CXR 01/22 IMPRESSION: 1. Stable diffuse left greater than right lung infiltrate with partial left lower lobe consolidation in a small left pleural effusion. 2. Support lines and tubes, described above. PE: GEN: intubated LUNGS: vent ABD: soft, quiet NEURO/PSYCH: sedated A/P: Alcoholic hepatitis, ARDS, ARF, ileus, anemia -- Continue same per GI. PINKY GONZALES Jan 22, 2019 13:13
[2019-01-22 13:14] LABS: HEMATOCRIT 22.2 % (39.0-53.0); HEMOGLOBIN 7.7 g/dL (13.0-17.5)
--- NOTE | 2019-01-22 13:28 | NUR ---
Pharmacy TPN Dosing Note S: ULI CARRIZALES is a 38 year old M Currently receiving Central Continuous TPN started 01/13/19 B:Pertinent PMH: Ileus, high residuals with tube feeding Height: 5 feet, 7 inches Weight: 107.829892 kg Current diet: NPO LABS: Sodium: 139 Potassium: 3.8 Chloride: 101 Calcium: 8.4 Corrected Calcium: 8.64 Magnesium: 1.8 CO2: 25 SCr: 1.3 Glucose: 120 Albumin: 3.7 AST: 178 ALT: 58 TPN FORMULA: TPN TYPE: Central Continuous AMINO ACIDS: 135 gm DEXTROSE: 225 gm LIPIDS: 30 gm SODIUM CHLORIDE: 80 mEq SODIUM ACETATE: - mEq SODIUM PHOSPHATE: - mmol POTASSIUM CHLORIDE: - mEq POTASSIUM ACETATE: - mEq POTASSIUM PHOSPHATE: - mmol MAGNESIUM: - mEq CALCIUM: 25 mEq INSULIN: - units MULTIPLE VITAMIN: 10 ml TRACE ELEMENTS: 1 ml(s) TPN PLAN: NO CHANGES IN TPN TODAY. R: Continue TPN AT 63ML/HR Will monitor electrolytes, glucose, and tolerance to TPN. ANT VYAS [facility], 01/22/19 [id number]
[2019-01-22 13:34] LABS: CALCIUM 8.2 mg/dL (8.5-10.1); CREATININE 1.4 mg/dL (0.7-1.3); GFR 56.7; MAGNESIUM 1.8 mg/dL (1.8-2.4); PHOSPHORUS 2.3 mg/dL (2.6-4.7); POTASSIUM 3.8 mmol/L (3.5-5.1)
[2019-01-22] MEDS: POTASSIUM PHOSPHATE DIBASIC 20 MMOL in IV NORMAL SALINE 250ML 250 ML IV PRN (14:28)
--- NOTE | 2019-01-22 15:09 | NUR ---
Wound Care Wound care consult for sacral wound. Per Steve NOBLE pt is not stable enough to turn or inspection. Pt has photo in chart of large DTI to sacrum. Recommend to apply Xeroform gauze daily or when possible. WC will follow up when pt is stable enough to turn.
[2019-01-22] MEDS: POTASSIUM CHLORIDE 15 MEQ in DIALYSIS SOLUTION BGK 0/2.5 5,000 ML IV SCH ×3 (17:00→20:44)
[2019-01-22 21:23] LABS: CALCIUM 8.5 mg/dL (8.5-10.1); CREATININE 1.4 mg/dL (0.7-1.3); GFR 56.7; MAGNESIUM 1.7 mg/dL (1.8-2.4); PHOSPHORUS 2.9 mg/dL (2.6-4.7)
[2019-01-22] MEDS ORDERED: DEXTROSE 70% IV SCH ×8 (22:00)
[2019-01-22] MEDS ORDERED: [UNRECOGNIZED DRUG - OTHER] IV SCH ×8 (22:00)
[2019-01-22] MEDS ORDERED: TOTAL PARENTERAL NUTRITION IV SCH ×8 (22:00)
[2019-01-22] MEDS ORDERED: AMINO ACID IV SCH ×8 (22:00)
[2019-01-22] MEDS: MAGNESIUM SULFATE 4GM 100 ML IV SCH (22:12)
[2019-01-22] MEDS: NOREPINEPHRINE VIAL 32 MG in IV NORMAL SALINE 250ML IV PRN (22:40)
[2019-01-23] VITALS (30 sets, daily range): BP systolic 80–128; BP diastolic 25–58
[2019-01-23] MEDS: ALBUMIN HUMAN 25% 100 ML IV SCH ×3 (00:12→11:51)
[2019-01-23] MEDS: POTASSIUM CHLORIDE 15 MEQ in DIALYSIS SOLUTION BGK 0/2.5 5,000 ML IV SCH ×21 (01:06→21:43)
[2019-01-23] MEDS: NORMAL SALINE IV SCH ×2 (02:13→09:36)
[2019-01-23] MEDS: MEROPENEM IV SCH ×2 (02:13→09:36)
[2019-01-23] MEDS: VECURONIUM BOLUS 10 MG VIAL. IV PRN ×3 (03:30→21:07)
[2019-01-23 05:20] LABS: BASO # 0.4 x10^3/uL (0.0-0.2); BASO % 1 % (0-3); EOS # 0.1 x10^3/uL (0.0-0.7); EOS % 0 % (0-3); HEMATOCRIT 22.7 % (39.0-53.0); HEMOGLOBIN 7.6 g/dL (13.0-17.5); LYMPH # 6.5 x10^3/uL (1.0-4.8); LYMPH % 19 % (24-48); MEAN CORPUSCULAR HEMOGLOBIN 33 pg (25-35); MEAN CORPUSCULAR HGB CONC 34 g/dL (31-37); MEAN CORPUSCULAR VOLUME 97 fL (79-100); MONO # 2.7 x10^3/uL (0.0-1.1); MONO % 8 % (0-9); NEUT # 24.1 x10^3/uL (1.8-7.7); NEUT % 72 % (31-73); PLATELET COUNT 57 x10^3/uL (140-400); RED BLOOD COUNT 2.35 x10^6/uL (4.30-5.70); RED CELL DISTRIBUTION WIDTH 18.4 % (11.5-14.5); WHITE BLOOD COUNT 33.7 x10^3/uL (4.0-11.0)
--- NOTE | 2019-01-23 05:43 | NUR ---
Pts 2100 magnesium lab was 1.7. Dr Peck was paged for replacement orders. She ordered to replace magnesium per ICU electrolyte protocol. Pt currently stable will continue to monitor.
[2019-01-23 05:47] LABS: CALCIUM 8.5 mg/dL (8.5-10.1); CREATININE 1.4 mg/dL (0.7-1.3); GFR 56.7; POTASSIUM 4.6 mmol/L (3.5-5.1)
[2019-01-23] MEDS: DEXMEDETOMIDINE 400 MCG in IV NORMAL SALINE 100ML 96 ML IV PRN ×5 (06:15→23:55)
--- NOTE | 2019-01-23 07:20 | PDOC ---
Infectious Disease Note Subjective: Subjective pt intubated,sedated fio2 100% Peep 14 low grade fever on dialysis on low dose pressors d/w rn no family at bedside Vital Signs: Vital Signs Vital Signs Date Time Temp Pulse Resp B/P (MAP) Pulse Ox O2 Delivery O2 Flow Rate FiO2 01/23/19 06:07 91 Ventilator 01/23/19 06:00 100 24 95/25 (48) 01/23/19 04:00 98.2 98.2 Physical Exam: PHYSICAL EXAM GENERAL: Orally intubated and sedated, CRRT HEENT: Icteric, Pupils equal, ETT and OGT LUNGS: Right-sided rhonchi HEART: S1 S2 regular ABDOMEN: Obese, distended,hypoactive BS : - Pollard EXTREMITIES:gen edema, LLE ecchymosis. SKIN: warm to touch , ecchymotic lesion on the back NEUROLOGIC: Sedated RIJ and Temp RIJ/HDC (01/13) clean PIV Medications: Inpatient Meds: Current Medications Medications (Trade) Dose Ordered Sig/Quyen Start Time Stop Time Status Last Admin Dose Admin Acetaminophen (Tylenol Supp) 650 mg PRN Q6HRS PRN 01/08/19 18:15 01/09/19 23:44 650 MG Acetaminophen (Tylenol) 650 mg PRN Q6HRS PRN 01/12/19 16:30 01/14/19 09:11 650 MG Albumin Human 100 ml @ As Directed STK-MED ONCE 01/19/19 17:00 01/19/19 17:00 DC Artificial Tears (Artificial Tears) 1 drop Q4H PRN 01/14/19 15:30 01/14/19 16:43 1 DROP Benzocaine (Hurricaine One) 2 spray STK-MED ONCE 01/07/19 12:00 01/08/19 14:20 DC Bisacodyl (Dulcolax Supp) 10 mg 1X ONCE 01/13/19 11:00 01/13/19 11:01 DC 01/13/19 10:14 10 MG Calcium Chloride 12.5 meq/ Magnesium Sulfate 2.5 meq/Potassium Chloride 10 meq/ Sodium Bicarbonate 40 meq/Bicarbonate Dialysis Soln w/ out KCl 5,054.5443 ml @ 500 mls/hr Q10H7M 01/18/19 18:00 01/19/19 07:48 DC 01/19/19 05:16 500 MLS/HR Calcium Chloride 12.5 meq/ Potassium Chloride 5 meq/ Bicarbonate Dialysis Soln w/ out KCl 5,011.4286 ml @ 500 mls/hr Q10H2M 01/20/19 11:30 01/22/19 16:21 DC 01/22/19 07:59 500 MLS/HR Calcium Chloride 12.5 meq/ Potassium Chloride 5 meq/ Sodium Bicarbonate 40 meq/Bicarbonate Dialysis Soln w/ out KCl 5,051.4286 ml @ 500 mls/hr Q10H7M 01/19/19 15:00 01/20/19 11:30 DC 01/20/19 03:09 500 MLS/HR Clonidine HCl (Catapres) 0.1 mg PRN Q1HR PRN 01/08/19 07:15 Daptomycin 500 mg/ Sodium Chloride 50 ml @ 100 mls/hr Q48H 01/16/19 09:00 01/22/19 08:12 DC 01/20/19 09:16 100 MLS/HR Darbepoetin Giorgi (ARANESP for DIALYSIS PTS) 60 mcg WEEKLYHS 01/13/19 21:00 01/20/19 21:43 60 MCG Dexmedetomidine HCl 400 mcg/ Sodium Chloride 100 ml @ 0 mls/hr CONT PRN 01/14/19 11:30 01/23/19 06:15 26.5 MLS/HR Dextrose (Dextrose 50%-Water Syringe) 12.5 gm PRN Q15MIN PRN 01/09/19 10:30 01/18/19 22:35 25 GM Diphenhydramine HCl (Benadryl) 25 mg PRN Q15MIN PRN 01/08/19 07:15 Docusate Sodium (Enemeez) 283 mg 1X ONCE 01/13/19 16:45 01/13/19 16:47 DC 01/13/19 17:14 283 MG Epinephrine HCl (EPINEPHrine SYRINGE) 1 mg STK-MED ONCE 01/19/19 12:00 01/21/19 15:55 DC Epinephrine HCl 4 mg/Sodium Chloride 254 ml @ 41.822 mls/ hr CONT PRN 01/18/19 16:15 01/19/19 18:00 DC Epinephrine HCl 8 mg/Sodium Chloride 258 ml @ 20.9 mls/hr CONT PRN 01/19/19 14:15 Fentanyl Citrate (Fentanyl 2ml Vial) 100 mcg 1X ONCE 01/08/19 09:45 01/08/19 09:46 DC 01/08/19 09:42 100 MCG Fentanyl Citrate (Fentanyl 600 Mcg/30 ml MILLINER HELPER) 600 mcg STK-MED ONCE 01/08/19 15:25 01/09/19 10:27 DC Haloperidol Lactate (Haldol Inj) 5 mg PRN Q4HRS PRN 01/08/19 07:15 Heparin Sodium (Porcine) (Heparin Sodium) 10,000 unit STK-MED ONCE 01/13/19 10:59 01/13/19 11:00 DC Info (PHARMACY MONITORING -- do not chart) 1 each PRN DAILY PRN 01/15/19 10:00 01/15/19 10:57 DC Info (Tpn Per Pharmacy) 1 each PRN DAILY PRN 01/13/19 11:15 01/22/19 11:27 1 EACH Insulin Human Lispro (HumaLOG) 0-9 UNITS TIDWMEALS 01/09/19 12:00 01/21/19 08:00 4 UNITS Lactobacillus Rhamnosus (Culturelle) 1 cap BID 01/08/19 21:00 01/09/19 09:29 DC Lactulose (LACTULOSE 300ML for RECTAL) 200 gm Q6HRS 01/09/19 12:00 01/09/19 11:04 DC Lactulose (Lactulose) 20 gm TID 01/13/19 10:00 01/14/19 21:01 20 GM Levofloxacin/ Dextrose 100 ml @ 100 mls/hr Q24H 01/14/19 09:00 01/22/19 08:37 100 MLS/HR Lidocaine HCl (Buffered Lidocaine 1%) 3 ml 1X ONCE 01/13/19 11:00 01/13/19 11:01 DC 01/13/19 11:00 3 ML Lidocaine HCl (Xylocaine 2% Topical 5gm Tube) 5 amanda STK-MED ONCE 01/07/19 12:00 01/08/19 14:20 DC Linezolid/Dextrose 300 ml @ 300 mls/hr Q12HR 01/11/19 13:00 01/16/19 08:29 DC 01/16/19 08:26 300 MLS/HR Lorazepam (Ativan Inj) 4 mg PRN Q1HR PRN 01/08/19 07:15 01/15/19 08:40 4 MG Magnesium Sulfate 100 ml @ 50 mls/hr DAILY 01/22/19 22:30 01/26/19 22:29 01/22/19 22:12 50 MLS/HR Meropenem 1 gm/ Sodium Chloride 50 ml @ 100 mls/hr Q12H 01/20/19 02:00 01/23/19 02:13 100 MLS/HR Meropenem 500 mg/ Sodium Chloride 50 ml @ 100 mls/hr Q8HRS 01/18/19 14:00 01/19/19 09:24 DC 01/19/19 06:02 100 MLS/HR Methylprednisolone Sodium Succinate (SOLU-Medrol 125MG VIAL) 125 mg STK-MED ONCE 01/18/19 16:26 01/18/19 16:26 DC Metoclopramide HCl (Reglan Vial) 5 mg 1X ONCE 01/14/19 10:30 01/14/19 10:31 DC 01/14/19 10:51 5 MG Midazolam HCl 100 ml @ 5 mls/hr CONT PRN 01/08/19 11:15 01/22/19 20:44 10 MLS/HR Midazolam HCl (Versed) 5 mg 1X ONCE 01/08/19 09:45 01/08/19 09:46 DC 01/08/19 09:41 5 MG Morphine Sulfate (Morphine Sulfate) 2 mg PRN Q2HR PRN 01/08/19 09:15 Multi-Ingred Cream/Lotion/Oil/ Oint (Artificial Tears Eye Ointment) 1 amanda PRN Q1HR PRN 01/13/19 16:45 01/13/19 17:14 1 AMANDA Multivitamins 10 ml/Thiamine HCl 100 mg/Folic Acid 1 mg/Sodium Chloride 1,011.2 ml @ 100 mls/ hr DAILY 01/08/19 09:00 01/12/19 19:07 DC 01/12/19 10:29 100 MLS/HR Naloxone HCl (Narcan) 0.4 mg PRN Q2MIN PRN 01/08/19 09:00 Norepinephrine Bitartrate 250 ml @ 18.938 mls/ hr CONT PRN 01/09/19 01:45 01/19/19 11:30 DC 01/19/19 06:31 28.406 MLS/HR Norepinephrine Bitartrate 32 mg/ Sodium Chloride 250 ml @ 7 mls/hr CONT PRN 01/19/19 11:30 01/22/19 22:40 3.5 MLS/HR Octreotide Acetate 500 mcg/ Sodium Chloride 101 ml @ 0 mls/hr CONT PRN 01/08/19 09:00 01/08/19 16:55 DC 01/08/19 13:56 10.1 MLS/HR Ondansetron HCl (Zofran) 4 mg PRN Q6HRS PRN 01/08/19 09:15 Pantoprazole Sodium (PROTONIX VIAL for IV PUSH) 40 mg DAILYAC 01/10/19 07:30 01/22/19 07:56 40 MG Pantoprazole Sodium 80 mg/ Sodium Chloride 100 ml @ 10 mls/hr Q10H 01/08/19 06:00 01/09/19 11:00 DC 01/09/19 02:00 10 MLS/HR Perflutren Protein Type A Microsphe (Optison) 0.66 mg 1X ONCE 01/11/19 13:30 01/11/19 13:31 DC Phytonadione (Vitamin K Ampule) 10 mg 1X ONCE 01/08/19 09:15 01/08/19 09:16 DC 01/08/19 09:56 10 MG Phytonadione 10 mg/Dextrose 51 ml @ 102 mls/hr 1X ONCE 01/20/19 10:45 01/20/19 11:14 DC 01/20/19 11:07 102 MLS/HR Piperacillin Sod/ Tazobactam Sod (Zosyn Per Pharmacy) 1 each PRN DAILY PRN 01/07/19 21:00 01/18/19 12:16 DC Piperacillin Sod/ Tazobactam Sod 3.375 gm/Sodium Chloride 50 ml @ 100 mls/hr Q6HRS 01/07/19 22:00 01/18/19 12:16 DC 01/18/19 05:54 100 MLS/HR Potassium Bicarbonate (Potassium Effervescent Tablet) 40 meq BIDWMEALS 01/10/19 09:00 01/11/19 09:20 DC 01/10/19 17:49 40 MEQ Potassium Chloride 15 meq/ Bicarbonate Dialysis Soln w/ out KCl 5,007.5 ml @ 1,200 mls/ hr Q4H11M 01/22/19 20:01 01/23/19 05:00 1,200 MLS/HR Potassium Chloride 20 meq/ Bicarbonate Dialysis Soln w/ out KCl 5,010 ml @ 1,200 mls/hr Q4H11M 01/15/19 19:00 01/17/19 15:00 DC 01/17/19 00:17 1,200 MLS/HR Potassium Chloride 20 meq/ Sodium Bicarbonate 40 meq/Bicarbonate Dialysis Soln w/ out KCl 5,050 ml @ 1,200 mls/hr Q4H13M 01/17/19 15:00 01/18/19 09:51 DC 01/18/19 06:01 1,200 MLS/HR Potassium Chloride/Sodium Chloride 1,000 ml @ 75 mls/hr 1X ONCE 01/07/19 21:30 01/08/19 10:49 DC 01/07/19 21:16 75 MLS/HR Potassium Phosphate 20 mmol/ Sodium Chloride 256.6667 ml @ 62.5 mls/hr 1X ONCE 01/22/19 06:30 01/22/19 10:36 DC 01/22/19 06:22 62.5 MLS/HR Potassium Phosphate 40 mmol/ Sodium Chloride 263.3333 ml @ 62.5 mls/hr 1X ONCE 01/21/19 21:45 01/22/19 01:57 DC 01/21/19 22:00 62.5 MLS/HR Potassium Chloride (Klor-Con) 40 meq 1X ONCE 01/09/19 09:45 01/09/19 09:46 DC 01/09/19 11:34 40 MEQ Propofol 100 ml @ 1.524 mls/ hr CONT PRN 01/08/19 09:45 01/14/19 03:56 9.147 MLS/HR Sodium Acetate 40 meq/Potassium Acetate 30 meq/ Calcium Gluconate 10 meq/ Multivitamins 10 ml/Chromium/ Copper/Manganese/ Seleni/Zn 1 ml/ Total Parenteral Nutrition/Amino Acids/Dextrose/ Fat Emulsion Intravenous 1,512 ml @ 63 mls/hr TPN CONT 01/13/19 22:00 01/14/19 21:59 DC 01/13/19 21:54 63 MLS/HR Sodium Bicarbonate (Sodium Bicarb Adult 8.4% Syr) 50 meq STK-MED ONCE 01/19/19 12:00 01/21/19 15:55 DC Sodium Chloride 30 meq/Sodium Acetate 40 meq/ Potassium Acetate 30 meq/Calcium Gluconate 10 meq/ Multivitamins 10 ml/Chromium/ Copper/Manganese/ Seleni/Zn 1 ml/ Total Parenteral Nutrition/Amino Acids/Dextrose/ Fat Emulsion Intravenous 1,512 ml @ 63 mls/hr TPN CONT 01/14/19 22:00 01/15/19 21:59 DC 01/15/19 00:05 63 MLS/HR Sodium Chloride 40 meq/Sodium Acetate 40 meq/ Calcium Gluconate 10 meq/ Multivitamins 10 ml/Chromium/ Copper/Manganese/ Seleni/Zn 1 ml/ Thiamine HCl 100 mg/Total Parenteral Nutrition/Amino Acids/Dextrose/ Fat Emulsion Intravenous 1,512 ml @ 63 mls/hr TPN CONT 01/15/19 22:00 01/16/19 21:59 DC 01/15/19 21:45 63 MLS/HR Sodium Chloride 40 meq/Sodium Acetate 40 meq/ Potassium Acetate 10 meq/Calcium Gluconate 10 meq/ Multivitamins 10 ml/Chromium/ Copper/Manganese/ Seleni/Zn 1 ml/ Thiamine HCl 100 mg/Total Parenteral Nutrition/Amino Acids/Dextrose/ Fat Emulsion Intravenous 1,512 ml @ 63 mls/hr TPN CONT 01/15/19 22:00 01/15/19 14:18 DC Sodium Chloride 40 meq/Sodium Acetate 40 meq/ Potassium Acetate 10 meq/Calcium Gluconate 10 meq/ Multivitamins 10 ml/Chromium/ Copper/Manganese/ Seleni/Zn 1 ml/ Total Parenteral Nutrition/Amino Acids/Dextrose/ Fat Emulsion Intravenous 1,512 ml @ 63 mls/hr TPN CONT 01/15/19 22:00 01/15/19 11:06 DC Sodium Chloride 60 meq/Sodium Acetate 40 meq/ Calcium Gluconate 10 meq/ Multivitamins 10 ml/Chromium/ Copper/Manganese/ Seleni/Zn 1 ml/ Thiamine HCl 100 mg/Total Parenteral Nutrition/Amino Acids/Dextrose/ Fat Emulsion Intravenous 1,512 ml @ 63 mls/hr TPN CONT 01/16/19 22:00 01/18/19 10:50 DC 01/16/19 22:00 63 MLS/HR Sodium Chloride 80 meq/Calcium Gluconate 10 meq/ Multivitamins 10 ml/Chromium/ Copper/Manganese/ Seleni/Zn 1 ml/ Thiamine HCl 100 mg/Total Parenteral Nutrition/Amino Acids/Dextrose/ Fat Emulsion Intravenous 1,200 ml @ 50 mls/hr TPN CONT 01/19/19 22:00 01/20/19 21:59 DC 01/19/19 21:30 50 MLS/HR Sodium Chloride 80 meq/Calcium Gluconate 20 meq/ Multivitamins 10 ml/Chromium/ Copper/Manganese/ Seleni/Zn 1 ml/ Thiamine HCl 100 mg/Total Parenteral Nutrition/Amino Acids/Dextrose/ Fat Emulsion Intravenous 1,200 ml @ 50 mls/hr TPN CONT 01/20/19 22:00 01/21/19 21:59 DC 01/20/19 21:43 50 MLS/HR Sodium Chloride 80 meq/Calcium Gluconate 25 meq/ Multivitamins 10 ml/Chromium/ Copper/Manganese/ Seleni/Zn 1 ml/ Thiamine HCl 100 mg/Total Parenteral Nutrition/Amino Acids/Dextrose/ Fat Emulsion Intravenous 1,512 ml @ 63 mls/hr TPN CONT 01/22/19 22:00 01/22/19 22:03 63 MLS/HR Sodium Phosphate 40 mmol/Dextrose 263.3333 ml @ 62.5 mls/hr 1X ONCE 01/21/19 09:00 01/21/19 13:13 DC 01/21/19 09:26 62.5 MLS/HR Succinylcholine Chloride (Anectine) 200 mg 1X ONCE 01/08/19 09:45 01/08/19 09:46 DC 01/08/19 09:41 200 MG Tramadol HCl (Ultram) 50 mg PRN Q6HRS PRN 01/08/19 09:15 Vancomycin HCl (Vanco Per Pharmacy) 1 each PRN DAILY PRN 01/07/19 21:00 01/08/19 06:39 DC 01/08/19 00:43 1 EACH Vancomycin HCl (Vancomycin Trough Level) 1 each 1X ONCE 01/09/19 09:30 01/09/19 09:31 Cancel Vancomycin HCl 1.5 gm/Sodium Chloride 500 ml @ 250 mls/hr Q12H 01/08/19 10:00 01/08/19 06:39 DC Vancomycin HCl 2 gm/Sodium Chloride 500 ml @ 250 mls/hr 1X ONCE 01/07/19 22:00 01/07/19 23:59 DC 01/07/19 22:11 250 MLS/HR Vasopressin 40 unit/Dextrose 102 ml @ 6 mls/hr CONT PRN 01/15/19 10:00 01/20/19 19:31 6 MLS/HR Vecuronium [place] (Norcuron Bolus) 6 mg PRN Q4HRS PRN 01/08/19 12:00 01/23/19 03:30 6 MG Labs: Lab Laboratory Tests Test 01/22/19 08:00 01/22/19 09:15 01/22/19 12:13 01/22/19 13:04 O2 Saturation 96 % (92-99) Arterial Blood pH 7.45 (7.35-7.45) Arterial Blood pCO2 at Patient Temp 33 mmHg (35-46) Arterial Blood pO2 at Patient Temp 87 mmHg (85-108) Arterial Blood HCO3 22 mmol/L (21-28) Arterial Blood Base Excess -2 mmol/L (-3-3) FiO2 100 Lactic Acid Level 4.0 mmol/L (0.4-2.0) Glucose (Fingerstick) 112 mg/dL (70-99) Hemoglobin 7.7 g/dL (13.0-17.5) Hematocrit 22.2 % (39.0-53.0) Mean Corpuscular Hemoglobin Concent 35 g/dL (31-37) Sodium Level 141 mmol/L (136-145) Potassium Level 3.8 mmol/L (3.5-5.1) Chloride Level 102 mmol/L (98-107) Carbon Dioxide Level 25 mmol/L (21-32) Anion Gap 14 (6-14) Blood Urea Nitrogen 40 mg/dL (8-26) Creatinine 1.4 mg/dL (0.7-1.3) Estimated GFR (Cockcroft-Gault) 56.7 Glucose Level 114 mg/dL (70-99) Calcium Level 8.2 mg/dL (8.5-10.1) Phosphorus Level 2.3 mg/dL (2.6-4.7) Magnesium Level 1.8 mg/dL (1.8-2.4) Test 01/22/19 16:58 01/22/19 21:00 01/23/19 05:00 Glucose (Fingerstick) 113 mg/dL (70-99) Sodium Level 139 mmol/L (136-145) 139 mmol/L (136-145) Potassium Level 4.0 mmol/L (3.5-5.1) 4.6 mmol/L (3.5-5.1) Chloride Level 101 mmol/L (98-107) 101 mmol/L (98-107) Carbon Dioxide Level 26 mmol/L (21-32) 23 mmol/L (21-32) Anion Gap 12 (6-14) 15 (6-14) Blood Urea Nitrogen 40 mg/dL (8-26) 39 mg/dL (8-26) Creatinine 1.4 mg/dL (0.7-1.3) 1.4 mg/dL (0.7-1.3) Estimated GFR (Cockcroft-Gault) 56.7 56.7 Glucose Level 126 mg/dL (70-99) 125 mg/dL (70-99) Lactic Acid Level 4.9 mmol/L (0.4-2.0) Calcium Level 8.5 mg/dL (8.5-10.1) 8.5 mg/dL (8.5-10.1) Phosphorus Level 2.9 mg/dL (2.6-4.7) 4.5 mg/dL (2.6-4.7) Magnesium Level 1.7 mg/dL (1.8-2.4) 2.8 mg/dL (1.8-2.4) White Blood Count 33.7 x10^3/uL (4.0-11.0) Red Blood Count 2.35 x10^6/uL (4.30-5.70) Hemoglobin 7.6 g/dL (13.0-17.5) Hematocrit 22.7 % (39.0-53.0) Mean Corpuscular Volume 97 fL (79-100) Mean Corpuscular Hemoglobin 33 pg (25-35) Mean Corpuscular Hemoglobin Concent 34 g/dL (31-37) Red Cell Distribution Width 18.4 % (11.5-14.5) Platelet Count 57 x10^3/uL (140-400) Neutrophils (%) (Auto) 72 % (31-73) Lymphocytes (%) (Auto) 19 % (24-48) Monocytes (%) (Auto) 8 % (0-9) Eosinophils (%) (Auto) 0 % (0-3) Basophils (%) (Auto) 1 % (0-3) Neutrophils # (Auto) 24.1 x10^3/uL (1.8-7.7) Lymphocytes # (Auto) 6.5 x10^3/uL (1.0-4.8) Monocytes # (Auto) 2.7 x10^3/uL (0.0-1.1) Eosinophils # (Auto) 0.1 x10^3/uL (0.0-0.7) Basophils # (Auto) 0.4 x10^3/uL (0.0-0.2) Albumin 3.7 g/dL (3.4-5.0) Objective: Assessment: Hypotension on pressors Fever - improved ? ID vs PRBCs vs reactive vs Withdrawl - improved , uc neg, bc neg, sputum neg Leukocytosis - ? reactive, s/p prbc,worsening Thrombocytopenia , DIC Lactic acidosis Resp failure s/p intubation. + mycoplasma (01/14) ,stable infiltrates DOMONIQUE on CRRT GI Bleed - s/p EGD 01/08 - Reflux esophagitis. ? recent M-W tear. Alcoholic gastritis. 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 GI following ? pancreatitis. Lipase improved Rhabdomyolysis Heavy ETOH abuse Ileus, FOB positive Anemia s/p PRBCs Left leg ecchymosis, blood stained resp secretions Ecchymotic lesion on sacral area Pyuria UC negative Plan: Plan of Care Merrem and Levaquin, was on zosyn prior to merrem restart daptomycin add micafungin above antibiotics are probably less likely to cause thrombocytopenia; could be from DIC,hepatic failure local care of decubitus, off load if possible f/u cultures Supportive care Critically ill Prognosis very poor D/W DAVID SOSA MD Jan 23, 2019 07:20
[2019-01-23] MEDS: MIDAZOLAM 100mg/100ml NS BAG 100 ML IV PRN ×2 (07:36→19:03)
[2019-01-23 07:53] LABS: BASE EXCESS ABG -6 mmol/L (-3-3); CORRECTED PCO2 ABG 50 mmHg; CORRECTED PH ABG 7.24; CORRECTED PO2 ABG 65 mmHg; HCO3 ABG 21 mmol/L (21-28); PCO2 ABG 49 mmHg (35-46); PO2 ABG 63 mmHg (85-108); SAT O2 ABG 87 % (92-99)
[2019-01-23 07:58] LABS: FIO2 ABG 100
[2019-01-23] MEDS: INSULIN LISPRO 300 UNITS/3 ML VIAL. SQ SCH ×3 (08:00→17:00)
--- NOTE | 2019-01-23 08:06 | RAD ---
PORTABLE CHEST 1V Clinical indications: On the ventilator. Lung infiltrates. Follow-up study. COMPARISON: January 22, 2019 Findings: Persistent diffuse lung infiltrate or pulmonary edema and associated left-sided pleural effusion is stable. There is an increase in pulmonary edema or lung infiltrate on the right side especially within the lower lung zone. There is a new finding of right-sided pleural effusion. No pneumothorax is evident. There've been no interval tube or line changes. Heart size and mediastinum are unchanged given rotation towards the left side. IMPRESSION: Worsening right lung field infiltrate/pulmonary edema with new right-sided pleural effusion. Stable left-sided lung infiltrate/pulmonary edema and stable left-sided pleural effusion. Electronically signed by: Yovani Antoine MD (01/23/2019 8:03 AM) [facility] [place]
[2019-01-23] MEDS: IV NORMAL SALINE 1000ML BAG 1,000 ML IV SCH (08:54)
[2019-01-23] MEDS ORDERED: DAPTOmycin (GENERIC) IVPB 490 MG in IV NORMAL SALINE 50ML 50 ML IV SCH (09:00)
[2019-01-23] MEDS: MAGNESIUM SULFATE 4GM 100 ML IV SCH (09:00)
[2019-01-23 09:38] LABS: % BANDS 23 % (0-9); % LYMPHS 15 % (24-48); % MONOS 3 % (0-10); % MYELOS 9 % (0-0); % SEGS 50 % (35-66); NUCLEATED RBC 3
[2019-01-23 09:39] LABS: PLT ESTIMATE DECREASED (ADEQUATE)
[2019-01-23] MEDS: PANTOPRAZOLE IV PUSH 40 MG VIAL. IVP SCH (09:40)
[2019-01-23] MEDS ORDERED: MICAFUNGIN 100 MG in IV DEXTROSE 5% 100ML 100 ML IV SCH (10:00)
[2019-01-23 10:15] LABS: TOXIC GRANULATION PRESENT; TOXIC VACUOLATION PRESENT
[2019-01-23 10:16] LABS: ANISOCYTOSIS SLIGHT
--- NOTE | 2019-01-23 10:57 | PDOC ---
Objective: Objective: D/w nurse - no change GI-mcnulty, levo turned back up. Vital Signs: Vital Signs Date Time Temp Pulse Resp B/P (MAP) Pulse Ox O2 Delivery O2 Flow Rate FiO2 01/23/19 08:41 96 Ventilator 01/23/19 08:29 101 25 115/50 (71) 01/23/19 07:00 99.2 99.2 Labs: Laboratory Tests Test 01/22/19 12:13 01/22/19 13:04 01/22/19 16:58 01/22/19 21:00 Glucose (Fingerstick) 112 mg/dL 113 mg/dL Hemoglobin 7.7 g/dL Hematocrit 22.2 % Mean Corpuscular Hemoglobin Concent 35 g/dL Sodium Level 141 mmol/L 139 mmol/L Potassium Level 3.8 mmol/L 4.0 mmol/L Chloride Level 102 mmol/L 101 mmol/L Carbon Dioxide Level 25 mmol/L 26 mmol/L Anion Gap 14 12 Blood Urea Nitrogen 40 mg/dL 40 mg/dL Creatinine 1.4 mg/dL 1.4 mg/dL Estimated GFR (Cockcroft-Gault) 56.7 56.7 Glucose Level 114 mg/dL 126 mg/dL Calcium Level 8.2 mg/dL 8.5 mg/dL Phosphorus Level 2.3 mg/dL 2.9 mg/dL Magnesium Level 1.8 mg/dL 1.7 mg/dL Lactic Acid Level 4.9 mmol/L Test 01/23/19 05:00 01/23/19 07:45 01/23/19 09:10 White Blood Count 33.7 x10^3/uL Red Blood Count 2.35 x10^6/uL Hemoglobin 7.6 g/dL Hematocrit 22.7 % Mean Corpuscular Volume 97 fL Mean Corpuscular Hemoglobin 33 pg Mean Corpuscular Hemoglobin Concent 34 g/dL Red Cell Distribution Width 18.4 % Platelet Count 57 x10^3/uL Neutrophils (%) (Auto) 72 % Lymphocytes (%) (Auto) 19 % Monocytes (%) (Auto) 8 % Eosinophils (%) (Auto) 0 % Basophils (%) (Auto) 1 % Neutrophils # (Auto) 24.1 x10^3/uL Lymphocytes # (Auto) 6.5 x10^3/uL Monocytes # (Auto) 2.7 x10^3/uL Eosinophils # (Auto) 0.1 x10^3/uL Basophils # (Auto) 0.4 x10^3/uL Segmented Neutrophils % 50 % Band Neutrophils % 23 % Lymphocytes % 15 % Monocytes % 3 % Myelocytes % 9 % Nucleated Red Blood Cells 3 Toxic Granulation Present Toxic Vacuolation Present Platelet Estimate Decreased Large Platelets Present Anisocytosis Slight Sodium Level 139 mmol/L Potassium Level 4.6 mmol/L Chloride Level 101 mmol/L Carbon Dioxide Level 23 mmol/L Anion Gap 15 Blood Urea Nitrogen 39 mg/dL Creatinine 1.4 mg/dL Estimated GFR (Cockcroft-Gault) 56.7 Glucose Level 125 mg/dL Calcium Level 8.5 mg/dL Phosphorus Level 4.5 mg/dL Magnesium Level 2.8 mg/dL Albumin 3.7 g/dL O2 Saturation 87 % Arterial Blood pH 7.24 Arterial Blood pH (Temp corrected) 7.24 Arterial Blood pCO2 at Patient Temp 49 mmHg Arterial Blood pCO2 (Temp correct) 50 mmHg Arterial Blood pO2 at Patient Temp 63 mmHg Arterial Blood pO2 (Temp corrected) 65 mmHg Arterial Blood HCO3 21 mmol/L Arterial Blood Base Excess -6 mmol/L FiO2 100 Lactic Acid Level 5.7 mmol/L BLOOD CULTURE Preliminary NO GROWTH AFTER 1 DAY Imaging: CXR 01/23 IMPRESSION: Worsening right lung field infiltrate/pulmonary edema with new right-sided pleural effusion. Stable left-sided lung infiltrate/pulmonary edema and stable left-sided pleural effusion. PE: GEN: ill, CRRT LUNGS: vent ABD: quiet EXTREMITY: +bruising LE NEURO/PSYCH: sedated A/P: Resp failure, renal failure Alcoholic hepatitis, ileus -- Chest imaging worse, on CRRT. PINKY GONZALES Jan 23, 2019 10:57
--- NOTE | 2019-01-23 11:35 | PDOC ---
PULMONARY PROGRESS NOTES Subjective PT ON PC V 100 % Vitals Vital Signs Date Time Temp Pulse Resp B/P (MAP) Pulse Ox O2 Delivery O2 Flow Rate FiO2 01/23/19 08:41 96 Ventilator 01/23/19 08:29 101 25 115/50 (71) 01/23/19 07:00 99.2 99.2 Lungs: Other (coarse bs bilaterally) Cardiovascular: S1, S2 Abdomen: Soft, Non-tender, Other (DISTENDED no mass) Extremities: Other (EDEMA) Skin: Warm Labs Laboratory Tests Test 01/21/19 11:46 01/21/19 12:40 01/21/19 15:30 01/21/19 16:50 Glucose (Fingerstick) 147 mg/dL (70-99) 137 mg/dL (70-99) Sodium Level 140 mmol/L (136-145) Potassium Level 3.5 mmol/L (3.5-5.1) Chloride Level 101 mmol/L (98-107) Carbon Dioxide Level 28 mmol/L (21-32) Anion Gap 11 (6-14) Blood Urea Nitrogen 41 mg/dL (8-26) Creatinine 1.2 mg/dL (0.7-1.3) Estimated GFR (Cockcroft-Gault) 67.8 Glucose Level 167 mg/dL (70-99) Calcium Level 7.7 mg/dL (8.5-10.1) Hemoglobin 7.9 g/dL (13.0-17.5) Hematocrit 23.1 % (39.0-53.0) Mean Corpuscular Hemoglobin Concent 34 g/dL (31-37) Phosphorus Level 2.5 mg/dL (2.6-4.7) Magnesium Level 1.7 mg/dL (1.8-2.4) Test 01/21/19 20:55 01/22/19 05:00 01/22/19 08:00 01/22/19 09:15 Sodium Level 140 mmol/L (136-145) 139 mmol/L (136-145) Potassium Level 3.6 mmol/L (3.5-5.1) 3.8 mmol/L (3.5-5.1) Chloride Level 101 mmol/L (98-107) 101 mmol/L (98-107) Carbon Dioxide Level 28 mmol/L (21-32) 25 mmol/L (21-32) Anion Gap 11 (6-14) 13 (6-14) Blood Urea Nitrogen 41 mg/dL (8-26) 40 mg/dL (8-26) Creatinine 1.3 mg/dL (0.7-1.3) 1.3 mg/dL (0.7-1.3) Estimated GFR (Cockcroft-Gault) 61.8 61.8 Glucose Level 131 mg/dL (70-99) 120 mg/dL (70-99) Lactic Acid Level 3.9 mmol/L (0.4-2.0) 4.0 mmol/L (0.4-2.0) Calcium Level 8.0 mg/dL (8.5-10.1) 8.4 mg/dL (8.5-10.1) Phosphorus Level 1.5 mg/dL (2.6-4.7) 2.3 mg/dL (2.6-4.7) Magnesium Level 2.0 mg/dL (1.8-2.4) 1.8 mg/dL (1.8-2.4) White Blood Count 15.9 x10^3/uL (4.0-11.0) Red Blood Count 2.35 x10^6/uL (4.30-5.70) Hemoglobin 7.7 g/dL (13.0-17.5) Hematocrit 21.7 % (39.0-53.0) Mean Corpuscular Volume 92 fL (79-100) Mean Corpuscular Hemoglobin 33 pg (25-35) Mean Corpuscular Hemoglobin Concent 35 g/dL (31-37) Red Cell Distribution Width 17.9 % (11.5-14.5) Platelet Count 44 x10^3/uL (140-400) Neutrophils (%) (Auto) 75 % (31-73) Lymphocytes (%) (Auto) 17 % (24-48) Monocytes (%) (Auto) 7 % (0-9) Eosinophils (%) (Auto) 0 % (0-3) Basophils (%) (Auto) 0 % (0-3) Neutrophils # (Auto) 11.9 x10^3/uL (1.8-7.7) Lymphocytes # (Auto) 2.7 x10^3/uL (1.0-4.8) Monocytes # (Auto) 1.2 x10^3/uL (0.0-1.1) Eosinophils # (Auto) 0.0 x10^3/uL (0.0-0.7) Basophils # (Auto) 0.1 x10^3/uL (0.0-0.2) BUN/Creatinine Ratio 31 (6-20) Total Bilirubin 21.5 mg/dL (0.2-1.0) Aspartate Amino Transf (AST/SGOT) 192 U/L (15-37) Alanine Aminotransferase (ALT/SGPT) 62 U/L (16-63) Alkaline Phosphatase 281 U/L (46-116) Total Protein 6.0 g/dL (6.4-8.2) Albumin 3.7 g/dL (3.4-5.0) Albumin/Globulin Ratio 1.6 (1.0-1.7) Triglycerides Level 175 mg/dL (0-150) O2 Saturation 96 % (92-99) Arterial Blood pH 7.45 (7.35-7.45) Arterial Blood pCO2 at Patient Temp 33 mmHg (35-46) Arterial Blood pO2 at Patient Temp 87 mmHg (85-108) Arterial Blood HCO3 22 mmol/L (21-28) Arterial Blood Base Excess -2 mmol/L (-3-3) FiO2 100 Test 01/22/19 12:13 01/22/19 13:04 01/22/19 16:58 01/22/19 21:00 Glucose (Fingerstick) 112 mg/dL (70-99) 113 mg/dL (70-99) Hemoglobin 7.7 g/dL (13.0-17.5) Hematocrit 22.2 % (39.0-53.0) Mean Corpuscular Hemoglobin Concent 35 g/dL (31-37) Sodium Level 141 mmol/L (136-145) 139 mmol/L (136-145) Potassium Level 3.8 mmol/L (3.5-5.1) 4.0 mmol/L (3.5-5.1) Chloride Level 102 mmol/L (98-107) 101 mmol/L (98-107) Carbon Dioxide Level 25 mmol/L (21-32) 26 mmol/L (21-32) Anion Gap 14 (6-14) 12 (6-14) Blood Urea Nitrogen 40 mg/dL (8-26) 40 mg/dL (8-26) Creatinine 1.4 mg/dL (0.7-1.3) 1.4 mg/dL (0.7-1.3) Estimated GFR (Cockcroft-Gault) 56.7 56.7 Glucose Level 114 mg/dL (70-99) 126 mg/dL (70-99) Calcium Level 8.2 mg/dL (8.5-10.1) 8.5 mg/dL (8.5-10.1) Phosphorus Level 2.3 mg/dL (2.6-4.7) 2.9 mg/dL (2.6-4.7) Magnesium Level 1.8 mg/dL (1.8-2.4) 1.7 mg/dL (1.8-2.4) Lactic Acid Level 4.9 mmol/L (0.4-2.0) Test 01/23/19 05:00 01/23/19 07:45 01/23/19 09:10 White Blood Count 33.7 x10^3/uL (4.0-11.0) Red Blood Count 2.35 x10^6/uL (4.30-5.70) Hemoglobin 7.6 g/dL (13.0-17.5) Hematocrit 22.7 % (39.0-53.0) Mean Corpuscular Volume 97 fL (79-100) Mean Corpuscular Hemoglobin 33 pg (25-35) Mean Corpuscular Hemoglobin Concent 34 g/dL (31-37) Red Cell Distribution Width 18.4 % (11.5-14.5) Platelet Count 57 x10^3/uL (140-400) Neutrophils (%) (Auto) 72 % (31-73) Lymphocytes (%) (Auto) 19 % (24-48) Monocytes (%) (Auto) 8 % (0-9) Eosinophils (%) (Auto) 0 % (0-3) Basophils (%) (Auto) 1 % (0-3) Neutrophils # (Auto) 24.1 x10^3/uL (1.8-7.7) Lymphocytes # (Auto) 6.5 x10^3/uL (1.0-4.8) Monocytes # (Auto) 2.7 x10^3/uL (0.0-1.1) Eosinophils # (Auto) 0.1 x10^3/uL (0.0-0.7) Basophils # (Auto) 0.4 x10^3/uL (0.0-0.2) Segmented Neutrophils % 50 % (35-66) Band Neutrophils % 23 % (0-9) Lymphocytes % 15 % (24-48) Monocytes % 3 % (0-10) Myelocytes % 9 % (0-0) Nucleated Red Blood Cells 3 Toxic Granulation Present Toxic Vacuolation Present Platelet Estimate Decreased (ADEQUATE) Large Platelets Present Anisocytosis Slight Sodium Level 139 mmol/L (136-145) Potassium Level 4.6 mmol/L (3.5-5.1) Chloride Level 101 mmol/L (98-107) Carbon Dioxide Level 23 mmol/L (21-32) Anion Gap 15 (6-14) Blood Urea Nitrogen 39 mg/dL (8-26) Creatinine 1.4 mg/dL (0.7-1.3) Estimated GFR (Cockcroft-Gault) 56.7 Glucose Level 125 mg/dL (70-99) Calcium Level 8.5 mg/dL (8.5-10.1) Phosphorus Level 4.5 mg/dL (2.6-4.7) Magnesium Level 2.8 mg/dL (1.8-2.4) Albumin 3.7 g/dL (3.4-5.0) O2 Saturation 87 % (92-99) Arterial Blood pH 7.24 (7.35-7.45) Arterial Blood pH (Temp corrected) 7.24 Arterial Blood pCO2 at Patient Temp 49 mmHg (35-46) Arterial Blood pCO2 (Temp correct) 50 mmHg Arterial Blood pO2 at Patient Temp 63 mmHg (85-108) Arterial Blood pO2 (Temp corrected) 65 mmHg Arterial Blood HCO3 21 mmol/L (21-28) Arterial Blood Base Excess -6 mmol/L (-3-3) FiO2 100 Lactic Acid Level 5.7 mmol/L (0.4-2.0) Laboratory Tests Test 01/22/19 12:13 01/22/19 13:04 01/22/19 16:58 01/22/19 21:00 Glucose (Fingerstick) 112 mg/dL (70-99) 113 mg/dL (70-99) Hemoglobin 7.7 g/dL (13.0-17.5) Hematocrit 22.2 % (39.0-53.0) Mean Corpuscular Hemoglobin Concent 35 g/dL (31-37) Sodium Level 141 mmol/L (136-145) 139 mmol/L (136-145) Potassium Level 3.8 mmol/L (3.5-5.1) 4.0 mmol/L (3.5-5.1) Chloride Level 102 mmol/L (98-107) 101 mmol/L (98-107) Carbon Dioxide Level 25 mmol/L (21-32) 26 mmol/L (21-32) Anion Gap 14 (6-14) 12 (6-14) Blood Urea Nitrogen 40 mg/dL (8-26) 40 mg/dL (8-26) Creatinine 1.4 mg/dL (0.7-1.3) 1.4 mg/dL (0.7-1.3) Estimated GFR (Cockcroft-Gault) 56.7 56.7 Glucose Level 114 mg/dL (70-99) 126 mg/dL (70-99) Calcium Level 8.2 mg/dL (8.5-10.1) 8.5 mg/dL (8.5-10.1) Phosphorus Level 2.3 mg/dL (2.6-4.7) 2.9 mg/dL (2.6-4.7) Magnesium Level 1.8 mg/dL (1.8-2.4) 1.7 mg/dL (1.8-2.4) Lactic Acid Level 4.9 mmol/L (0.4-2.0) Test 01/23/19 05:00 01/23/19 07:45 01/23/19 09:10 White Blood Count 33.7 x10^3/uL (4.0-11.0) Red Blood Count 2.35 x10^6/uL (4.30-5.70) Hemoglobin 7.6 g/dL (13.0-17.5) Hematocrit 22.7 % (39.0-53.0) Mean Corpuscular Volume 97 fL (79-100) Mean Corpuscular Hemoglobin 33 pg (25-35) Mean Corpuscular Hemoglobin Concent 34 g/dL (31-37) Red Cell Distribution Width 18.4 % (11.5-14.5) Platelet Count 57 x10^3/uL (140-400) Neutrophils (%) (Auto) 72 % (31-73) Lymphocytes (%) (Auto) 19 % (24-48) Monocytes (%) (Auto) 8 % (0-9) Eosinophils (%) (Auto) 0 % (0-3) Basophils (%) (Auto) 1 % (0-3) Neutrophils # (Auto) 24.1 x10^3/uL (1.8-7.7) Lymphocytes # (Auto) 6.5 x10^3/uL (1.0-4.8) Monocytes # (Auto) 2.7 x10^3/uL (0.0-1.1) Eosinophils # (Auto) 0.1 x10^3/uL (0.0-0.7) Basophils # (Auto) 0.4 x10^3/uL (0.0-0.2) Segmented Neutrophils % 50 % (35-66) Band Neutrophils % 23 % (0-9) Lymphocytes % 15 % (24-48) Monocytes % 3 % (0-10) Myelocytes % 9 % (0-0) Nucleated Red Blood Cells 3 Toxic Granulation Present Toxic Vacuolation Present Platelet Estimate Decreased (ADEQUATE) Large Platelets Present Anisocytosis Slight Sodium Level 139 mmol/L (136-145) Potassium Level 4.6 mmol/L (3.5-5.1) Chloride Level 101 mmol/L (98-107) Carbon Dioxide Level 23 mmol/L (21-32) Anion Gap 15 (6-14) Blood Urea Nitrogen 39 mg/dL (8-26) Creatinine 1.4 mg/dL (0.7-1.3) Estimated GFR (Cockcroft-Gault) 56.7 Glucose Level 125 mg/dL (70-99) Calcium Level 8.5 mg/dL (8.5-10.1) Phosphorus Level 4.5 mg/dL (2.6-4.7) Magnesium Level 2.8 mg/dL (1.8-2.4) Albumin 3.7 g/dL (3.4-5.0) O2 Saturation 87 % (92-99) Arterial Blood pH 7.24 (7.35-7.45) Arterial Blood pH (Temp corrected) 7.24 Arterial Blood pCO2 at Patient Temp 49 mmHg (35-46) Arterial Blood pCO2 (Temp correct) 50 mmHg Arterial Blood pO2 at Patient Temp 63 mmHg (85-108) Arterial Blood pO2 (Temp corrected) 65 mmHg Arterial Blood HCO3 21 mmol/L (21-28) Arterial Blood Base Excess -6 mmol/L (-3-3) FiO2 100 Lactic Acid Level 5.7 mmol/L (0.4-2.0) Comments Impression . IMPRESSION: 1. Acute respiratory failure, multifactorial, secondary to multiorgan failure. ARDS with.likely superimposed fluid overload/CHF/ underlying aspiration pneumonitis etiology of ARDS, no evidence of hepato-pulmonary shunt on Bubble echo 2. End-stage liver disease with persistent abnormal LFT, bili up to 15 3. Multiorgan failure. 4. Renal failure. ? hepato renal syndrome, remains oliguric, on CRRT 5. Acute gastrointestinal bleed. 6. sepsis. 7. Leukocytosis 8. Hematemesis 9. Rhabdomyolysis. 10. Alcohol abuse. 11. Ascites. 12. Electrolyte abnormalities. Imaging: EGD 01/08 E--NO VARICES. Erosions distally c/w reflux/repeated emesis. One quite long narrow erosion which could have been a M-W. No active bleeding or clot. G--Not much retained blood after OG suction and Reglan. NO gastric varices. Linear erosions along the rugae in fundus and body c/w alcoholic or stress gastritis. Scattered "bruises" from OG tube. No ulcer, etc. D--Normal to second portion. IMP: Reflux esophagitis. ? recent M-W tear. Alcoholic gastritis. No active bleeding or clot seen. Plan . SPOKE WITH AND MOTHER I INFORMED THEM THAT PT CHANGES OF RECOVERY ARE BASICALLY ZERO THEY HAVE AGREED TO WITHDRAW CARE TOMORROW AT NOON RN AND DR HIGGINS NOTIFIED D/W CARROLL FRANKS MD Jan 23, 2019 11:35
--- NOTE | 2019-01-23 11:50 | PDOC ---
PROGRESS NOTES Chief Complaint Chief Complaint Acute respiratory falure, IPPV - 01.08, fluid overload vs Atypical infection VS ARDS from aspiration HEMATEMESIS in A HEAVY DRINKER -Atrophic gastritis, ?MW tear BUT NO ACTIVE GIB - s.po STAT EGD 01/08 SEVERE PCM - albumin 1,7 -s/p albumin 01/09 - off pressors by 01/10 MInimal ascites - by US and CT HYPOTENSION, s/p, pressors standby, albumin, blood products if needed Coagulopathy - s/p vit K, HEPATIC enceph - ammonia midly high 60-90s - lactulose,KY HIGH residuals TRAMSAMINITIS with ELEVATED TB- per GI (TB 9), AST 300s-500s HEp C antibody positive LEft leg bruise, in this coagulopathic anemic pt sec to fall 2 weeks ago - monitor ELEVATED AGAP acidosis NEw ESRD HD - Sat before ? DIC Acute precip drop hgb 01/21 History of Present Illness History of Present Illness DAy 16 hospital stay NOW A DNR same, d dimer high, INR stable high - low fibrinogen s.p vit K and cryo - heme on con board On empiric abx per iDOver all guarded prog, pressor NEw HD no UO Precedex etc with high vent settings, not ready for trach ECho ok Anasarca, low albumin Platelets dropping off DVT ppx, just SCDs s/p prcb transfusion for acute precip drop hgb, had hematemesis on arrival, GI, stat egd done on admit etc needed to start CRRT Sat before thanks NO UO Waking up some, recognizes TPN, ileus etc so cant do TFs - BS ok NO uncontrollable hypernatremia so far LAst BM saturday - CANT TURN< desats, hypotension took him a whole 24 hr to recover from that at bedside, explained to her, crying, poor prognosis PLAN: NOW DNR Awaiting the rest fo DIC and PF4 to r.o HIT panel OVER AL PRG GRIM, LOTS OF MEDICAL ISSUES HIGH VENT, LOW BP< LOW ALBUMIN< NO UO CRRT per renal Abx per ID TPN for now maintain esteves On dvt and ppi ppx NOt ready for trach yet, high O2 and pEEP LTAC screen Off oac for now, bec og FOBT positive, anemia, dropping plateelts etc - SO ALSO HIGH RSK FRO THROMBOSIS Daily labs dw family members at bedside Critically ill MIGHT consider withdrawing care? Vitals Vitals Vital Signs Date Time Temp Pulse Resp B/P (MAP) Pulse Ox O2 Delivery O2 Flow Rate FiO2 01/23/19 11:28 93 Ventilator 01/23/19 08:29 101 25 115/50 (71) 01/23/19 07:00 99.2 99.2 Physical Exam Physical Exam GENERAL: Orally intubated and sedated, CRRT HEENT: Icteric, Pupils equal, ETT and OGT LUNGS: Right-sided rhonchi HEART: S1 S2 regular ABDOMEN: Obese, distended,hypoactive BS : - Esteves EXTREMITIES:gen edema, LLE ecchymosis. SKIN: warm to touch , ecchymotic lesion on the back NEUROLOGIC: Sedated RIJ and Temp RIJ/HDC (01/13) clean PIV General: Other (tachypneic 30s) Heart: Normal S1, Normal S2 Lungs: Other (coarse bs bilaterally) Abdomen: Soft, No tenderness, Other (pot belly possible fluid wave) Extremities: No clubbing, No cyanosis, Normal pulses, Other (left leg is bruised from a fall 2-3 weeks ago) Labs LABS Laboratory Tests Test 01/22/19 12:13 01/22/19 13:04 01/22/19 16:58 01/22/19 21:00 Glucose (Fingerstick) 112 mg/dL (70-99) 113 mg/dL (70-99) Hemoglobin 7.7 g/dL (13.0-17.5) Hematocrit 22.2 % (39.0-53.0) Mean Corpuscular Hemoglobin Concent 35 g/dL (31-37) Sodium Level 141 mmol/L (136-145) 139 mmol/L (136-145) Potassium Level 3.8 mmol/L (3.5-5.1) 4.0 mmol/L (3.5-5.1) Chloride Level 102 mmol/L (98-107) 101 mmol/L (98-107) Carbon Dioxide Level 25 mmol/L (21-32) 26 mmol/L (21-32) Anion Gap 14 (6-14) 12 (6-14) Blood Urea Nitrogen 40 mg/dL (8-26) 40 mg/dL (8-26) Creatinine 1.4 mg/dL (0.7-1.3) 1.4 mg/dL (0.7-1.3) Estimated GFR (Cockcroft-Gault) 56.7 56.7 Glucose Level 114 mg/dL (70-99) 126 mg/dL (70-99) Calcium Level 8.2 mg/dL (8.5-10.1) 8.5 mg/dL (8.5-10.1) Phosphorus Level 2.3 mg/dL (2.6-4.7) 2.9 mg/dL (2.6-4.7) Magnesium Level 1.8 mg/dL (1.8-2.4) 1.7 mg/dL (1.8-2.4) Lactic Acid Level 4.9 mmol/L (0.4-2.0) Test 01/23/19 05:00 01/23/19 07:45 01/23/19 09:10 White Blood Count 33.7 x10^3/uL (4.0-11.0) Red Blood Count 2.35 x10^6/uL (4.30-5.70) Hemoglobin 7.6 g/dL (13.0-17.5) Hematocrit 22.7 % (39.0-53.0) Mean Corpuscular Volume 97 fL (79-100) Mean Corpuscular Hemoglobin 33 pg (25-35) Mean Corpuscular Hemoglobin Concent 34 g/dL (31-37) Red Cell Distribution Width 18.4 % (11.5-14.5) Platelet Count 57 x10^3/uL (140-400) Neutrophils (%) (Auto) 72 % (31-73) Lymphocytes (%) (Auto) 19 % (24-48) Monocytes (%) (Auto) 8 % (0-9) Eosinophils (%) (Auto) 0 % (0-3) Basophils (%) (Auto) 1 % (0-3) Neutrophils # (Auto) 24.1 x10^3/uL (1.8-7.7) Lymphocytes # (Auto) 6.5 x10^3/uL (1.0-4.8) Monocytes # (Auto) 2.7 x10^3/uL (0.0-1.1) Eosinophils # (Auto) 0.1 x10^3/uL (0.0-0.7) Basophils # (Auto) 0.4 x10^3/uL (0.0-0.2) Segmented Neutrophils % 50 % (35-66) Band Neutrophils % 23 % (0-9) Lymphocytes % 15 % (24-48) Monocytes % 3 % (0-10) Myelocytes % 9 % (0-0) Nucleated Red Blood Cells 3 Toxic Granulation Present Toxic Vacuolation Present Platelet Estimate Decreased (ADEQUATE) Large Platelets Present Anisocytosis Slight Sodium Level 139 mmol/L (136-145) Potassium Level 4.6 mmol/L (3.5-5.1) Chloride Level 101 mmol/L (98-107) Carbon Dioxide Level 23 mmol/L (21-32) Anion Gap 15 (6-14) Blood Urea Nitrogen 39 mg/dL (8-26) Creatinine 1.4 mg/dL (0.7-1.3) Estimated GFR (Cockcroft-Gault) 56.7 Glucose Level 125 mg/dL (70-99) Calcium Level 8.5 mg/dL (8.5-10.1) Phosphorus Level 4.5 mg/dL (2.6-4.7) Magnesium Level 2.8 mg/dL (1.8-2.4) Albumin 3.7 g/dL (3.4-5.0) O2 Saturation 87 % (92-99) Arterial Blood pH 7.24 (7.35-7.45) Arterial Blood pH (Temp corrected) 7.24 Arterial Blood pCO2 at Patient Temp 49 mmHg (35-46) Arterial Blood pCO2 (Temp correct) 50 mmHg Arterial Blood pO2 at Patient Temp 63 mmHg (85-108) Arterial Blood pO2 (Temp corrected) 65 mmHg Arterial Blood HCO3 21 mmol/L (21-28) Arterial Blood Base Excess -6 mmol/L (-3-3) FiO2 100 Lactic Acid Level 5.7 mmol/L (0.4-2.0) Review of Systems Review of Systems intubated sedated Assessment and Plan Assessmemt and Plan Problems Medical Problems: (1) Acute hepatic encephalopathy Status: Acute (2) Acute upper GI bleed Status: Acute (3) Ascites Status: Acute (4) Hypokalemia Status: Acute (5) Multiple organ system failure Status: Acute (6) Severe sepsis with acute organ dysfunction Status: Acute Comment Review of Relevant I have reviewed the following items karen (where applicable) has been applied. Labs Laboratory Tests Test 01/21/19 12:40 01/21/19 15:30 01/21/19 16:50 01/21/19 20:55 Sodium Level 140 mmol/L (136-145) 140 mmol/L (136-145) Potassium Level 3.5 mmol/L (3.5-5.1) 3.6 mmol/L (3.5-5.1) Chloride Level 101 mmol/L (98-107) 101 mmol/L (98-107) Carbon Dioxide Level 28 mmol/L (21-32) 28 mmol/L (21-32) Anion Gap 11 (6-14) 11 (6-14) Blood Urea Nitrogen 41 mg/dL (8-26) 41 mg/dL (8-26) Creatinine 1.2 mg/dL (0.7-1.3) 1.3 mg/dL (0.7-1.3) Estimated GFR (Cockcroft-Gault) 67.8 61.8 Glucose Level 167 mg/dL (70-99) 131 mg/dL (70-99) Calcium Level 7.7 mg/dL (8.5-10.1) 8.0 mg/dL (8.5-10.1) Hemoglobin 7.9 g/dL (13.0-17.5) Hematocrit 23.1 % (39.0-53.0) Mean Corpuscular Hemoglobin Concent 34 g/dL (31-37) Phosphorus Level 2.5 mg/dL (2.6-4.7) 1.5 mg/dL (2.6-4.7) Magnesium Level 1.7 mg/dL (1.8-2.4) 2.0 mg/dL (1.8-2.4) Glucose (Fingerstick) 137 mg/dL (70-99) Lactic Acid Level 3.9 mmol/L (0.4-2.0) Test 01/22/19 05:00 01/22/19 08:00 01/22/19 09:15 01/22/19 12:13 White Blood Count 15.9 x10^3/uL (4.0-11.0) Red Blood Count 2.35 x10^6/uL (4.30-5.70) Hemoglobin 7.7 g/dL (13.0-17.5) Hematocrit 21.7 % (39.0-53.0) Mean Corpuscular Volume 92 fL (79-100) Mean Corpuscular Hemoglobin 33 pg (25-35) Mean Corpuscular Hemoglobin Concent 35 g/dL (31-37) Red Cell Distribution Width 17.9 % (11.5-14.5) Platelet Count 44 x10^3/uL (140-400) Neutrophils (%) (Auto) 75 % (31-73) Lymphocytes (%) (Auto) 17 % (24-48) Monocytes (%) (Auto) 7 % (0-9) Eosinophils (%) (Auto) 0 % (0-3) Basophils (%) (Auto) 0 % (0-3) Neutrophils # (Auto) 11.9 x10^3/uL (1.8-7.7) Lymphocytes # (Auto) 2.7 x10^3/uL (1.0-4.8) Monocytes # (Auto) 1.2 x10^3/uL (0.0-1.1) Eosinophils # (Auto) 0.0 x10^3/uL (0.0-0.7) Basophils # (Auto) 0.1 x10^3/uL (0.0-0.2) Sodium Level 139 mmol/L (136-145) Potassium Level 3.8 mmol/L (3.5-5.1) Chloride Level 101 mmol/L (98-107) Carbon Dioxide Level 25 mmol/L (21-32) Anion Gap 13 (6-14) Blood Urea Nitrogen 40 mg/dL (8-26) Creatinine 1.3 mg/dL (0.7-1.3) Estimated GFR (Cockcroft-Gault) 61.8 BUN/Creatinine Ratio 31 (6-20) Glucose Level 120 mg/dL (70-99) Calcium Level 8.4 mg/dL (8.5-10.1) Phosphorus Level 2.3 mg/dL (2.6-4.7) Magnesium Level 1.8 mg/dL (1.8-2.4) Total Bilirubin 21.5 mg/dL (0.2-1.0) Aspartate Amino Transf (AST/SGOT) 192 U/L (15-37) Alanine Aminotransferase (ALT/SGPT) 62 U/L (16-63) Alkaline Phosphatase 281 U/L (46-116) Total Protein 6.0 g/dL (6.4-8.2) Albumin 3.7 g/dL (3.4-5.0) Albumin/Globulin Ratio 1.6 (1.0-1.7) Triglycerides Level 175 mg/dL (0-150) O2 Saturation 96 % (92-99) Arterial Blood pH 7.45 (7.35-7.45) Arterial Blood pCO2 at Patient Temp 33 mmHg (35-46) Arterial Blood pO2 at Patient Temp 87 mmHg (85-108) Arterial Blood HCO3 22 mmol/L (21-28) Arterial Blood Base Excess -2 mmol/L (-3-3) FiO2 100 Lactic Acid Level 4.0 mmol/L (0.4-2.0) Glucose (Fingerstick) 112 mg/dL (70-99) Test 01/22/19 13:04 01/22/19 16:58 01/22/19 21:00 01/23/19 05:00 Hemoglobin 7.7 g/dL (13.0-17.5) 7.6 g/dL (13.0-17.5) Hematocrit 22.2 % (39.0-53.0) 22.7 % (39.0-53.0) Mean Corpuscular Hemoglobin Concent 35 g/dL (31-37) 34 g/dL (31-37) Sodium Level 141 mmol/L (136-145) 139 mmol/L (136-145) 139 mmol/L (136-145) Potassium Level 3.8 mmol/L (3.5-5.1) 4.0 mmol/L (3.5-5.1) 4.6 mmol/L (3.5-5.1) Chloride Level 102 mmol/L (98-107) 101 mmol/L (98-107) 101 mmol/L (98-107) Carbon Dioxide Level 25 mmol/L (21-32) 26 mmol/L (21-32) 23 mmol/L (21-32) Anion Gap 14 (6-14) 12 (6-14) 15 (6-14) Blood Urea Nitrogen 40 mg/dL (8-26) 40 mg/dL (8-26) 39 mg/dL (8-26) Creatinine 1.4 mg/dL (0.7-1.3) 1.4 mg/dL (0.7-1.3) 1.4 mg/dL (0.7-1.3) Estimated GFR (Cockcroft-Gault) 56.7 56.7 56.7 Glucose Level 114 mg/dL (70-99) 126 mg/dL (70-99) 125 mg/dL (70-99) Calcium Level 8.2 mg/dL (8.5-10.1) 8.5 mg/dL (8.5-10.1) 8.5 mg/dL (8.5-10.1) Phosphorus Level 2.3 mg/dL (2.6-4.7) 2.9 mg/dL (2.6-4.7) 4.5 mg/dL (2.6-4.7) Magnesium Level 1.8 mg/dL (1.8-2.4) 1.7 mg/dL (1.8-2.4) 2.8 mg/dL (1.8-2.4) Glucose (Fingerstick) 113 mg/dL (70-99) Lactic Acid Level 4.9 mmol/L (0.4-2.0) White Blood Count 33.7 x10^3/uL (4.0-11.0) Red Blood Count 2.35 x10^6/uL (4.30-5.70) Mean Corpuscular Volume 97 fL (79-100) Mean Corpuscular Hemoglobin 33 pg (25-35) Red Cell Distribution Width 18.4 % (11.5-14.5) Platelet Count 57 x10^3/uL (140-400) Neutrophils (%) (Auto) 72 % (31-73) Lymphocytes (%) (Auto) 19 % (24-48) Monocytes (%) (Auto) 8 % (0-9) Eosinophils (%) (Auto) 0 % (0-3) Basophils (%) (Auto) 1 % (0-3) Neutrophils # (Auto) 24.1 x10^3/uL (1.8-7.7) Lymphocytes # (Auto) 6.5 x10^3/uL (1.0-4.8) Monocytes # (Auto) 2.7 x10^3/uL (0.0-1.1) Eosinophils # (Auto) 0.1 x10^3/uL (0.0-0.7) Basophils # (Auto) 0.4 x10^3/uL (0.0-0.2) Segmented Neutrophils % 50 % (35-66) Band Neutrophils % 23 % (0-9) Lymphocytes % 15 % (24-48) Monocytes % 3 % (0-10) Myelocytes % 9 % (0-0) Nucleated Red Blood Cells 3 Toxic Granulation Present Toxic Vacuolation Present Platelet Estimate Decreased (ADEQUATE) Large Platelets Present Anisocytosis Slight Albumin 3.7 g/dL (3.4-5.0) Test 01/23/19 07:45 01/23/19 09:10 O2 Saturation 87 % (92-99) Arterial Blood pH 7.24 (7.35-7.45) Arterial Blood pH (Temp corrected) 7.24 Arterial Blood pCO2 at Patient Temp 49 mmHg (35-46) Arterial Blood pCO2 (Temp correct) 50 mmHg Arterial Blood pO2 at Patient Temp 63 mmHg (85-108) Arterial Blood pO2 (Temp corrected) 65 mmHg Arterial Blood HCO3 21 mmol/L (21-28) Arterial Blood Base Excess -6 mmol/L (-3-3) FiO2 100 Lactic Acid Level 5.7 mmol/L (0.4-2.0) Laboratory Tests Test 01/22/19 12:13 01/22/19 13:04 01/22/19 16:58 01/22/19 21:00 Glucose (Fingerstick) 112 mg/dL (70-99) 113 mg/dL (70-99) Hemoglobin 7.7 g/dL (13.0-17.5) Hematocrit 22.2 % (39.0-53.0) Mean Corpuscular Hemoglobin Concent 35 g/dL (31-37) Sodium Level 141 mmol/L (136-145) 139 mmol/L (136-145) Potassium Level 3.8 mmol/L (3.5-5.1) 4.0 mmol/L (3.5-5.1) Chloride Level 102 mmol/L (98-107) 101 mmol/L (98-107) Carbon Dioxide Level 25 mmol/L (21-32) 26 mmol/L (21-32) Anion Gap 14 (6-14) 12 (6-14) Blood Urea Nitrogen 40 mg/dL (8-26) 40 mg/dL (8-26) Creatinine 1.4 mg/dL (0.7-1.3) 1.4 mg/dL (0.7-1.3) Estimated GFR (Cockcroft-Gault) 56.7 56.7 Glucose Level 114 mg/dL (70-99) 126 mg/dL (70-99) Calcium Level 8.2 mg/dL (8.5-10.1) 8.5 mg/dL (8.5-10.1) Phosphorus Level 2.3 mg/dL (2.6-4.7) 2.9 mg/dL (2.6-4.7) Magnesium Level 1.8 mg/dL (1.8-2.4) 1.7 mg/dL (1.8-2.4) Lactic Acid Level 4.9 mmol/L (0.4-2.0) Test 01/23/19 05:00 01/23/19 07:45 01/23/19 09:10 White Blood Count 33.7 x10^3/uL (4.0-11.0) Red Blood Count 2.35 x10^6/uL (4.30-5.70) Hemoglobin 7.6 g/dL (13.0-17.5) Hematocrit 22.7 % (39.0-53.0) Mean Corpuscular Volume 97 fL (79-100) Mean Corpuscular Hemoglobin 33 pg (25-35) Mean Corpuscular Hemoglobin Concent 34 g/dL (31-37) Red Cell Distribution Width 18.4 % (11.5-14.5) Platelet Count 57 x10^3/uL (140-400) Neutrophils (%) (Auto) 72 % (31-73) Lymphocytes (%) (Auto) 19 % (24-48) Monocytes (%) (Auto) 8 % (0-9) Eosinophils (%) (Auto) 0 % (0-3) Basophils (%) (Auto) 1 % (0-3) Neutrophils # (Auto) 24.1 x10^3/uL (1.8-7.7) Lymphocytes # (Auto) 6.5 x10^3/uL (1.0-4.8) Monocytes # (Auto) 2.7 x10^3/uL (0.0-1.1) Eosinophils # (Auto) 0.1 x10^3/uL (0.0-0.7) Basophils # (Auto) 0.4 x10^3/uL (0.0-0.2) Segmented Neutrophils % 50 % (35-66) Band Neutrophils % 23 % (0-9) Lymphocytes % 15 % (24-48) Monocytes % 3 % (0-10) Myelocytes % 9 % (0-0) Nucleated Red Blood Cells 3 Toxic Granulation Present Toxic Vacuolation Present Platelet Estimate Decreased (ADEQUATE) Large Platelets Present Anisocytosis Slight Sodium Level 139 mmol/L (136-145) Potassium Level 4.6 mmol/L (3.5-5.1) Chloride Level 101 mmol/L (98-107) Carbon Dioxide Level 23 mmol/L (21-32) Anion Gap 15 (6-14) Blood Urea Nitrogen 39 mg/dL (8-26) Creatinine 1.4 mg/dL (0.7-1.3) Estimated GFR (Cockcroft-Gault) 56.7 Glucose Level 125 mg/dL (70-99) Calcium Level 8.5 mg/dL (8.5-10.1) Phosphorus Level 4.5 mg/dL (2.6-4.7) Magnesium Level 2.8 mg/dL (1.8-2.4) Albumin 3.7 g/dL (3.4-5.0) O2 Saturation 87 % (92-99) Arterial Blood pH 7.24 (7.35-7.45) Arterial Blood pH (Temp corrected) 7.24 Arterial Blood pCO2 at Patient Temp 49 mmHg (35-46) Arterial Blood pCO2 (Temp correct) 50 mmHg Arterial Blood pO2 at Patient Temp 63 mmHg (85-108) Arterial Blood pO2 (Temp corrected) 65 mmHg Arterial Blood HCO3 21 mmol/L (21-28) Arterial Blood Base Excess -6 mmol/L (-3-3) FiO2 100 Lactic Acid Level 5.7 mmol/L (0.4-2.0) Microbiology 01/22/19 Blood Culture - Preliminary, Resulted NO GROWTH AFTER 1 DAY 01/15/19 - Final, Complete 01/15/19 - Final, Complete 01/15/19 - Final, Complete 01/15/19 Gram Stain Evaluation - Final, Complete 01/15/19 Sputum Culture - Final, Complete 01/15/19 Sputum Result 1 - Final, Complete 01/08/19 Urine Culture - Final, Complete 01/08/19 Urine Culture Result 1 (ELMA) - Final, Complete Medications Current Medications Sodium Chloride 1,000 ml @ 1,000 mls/hr 1X ONCE IV Last administered on 01/07/19at 19:27; Start 01/07/19 at 19:30; Stop 01/07/19 at 20:29; Status DC Ondansetron HCl (Zofran) 4 mg 1X ONCE IV Last administered on 01/07/19at 19:28; Start 01/07/19 at 19:30; Stop 01/07/19 at 19:31; Status DC Pantoprazole Sodium (PROTONIX VIAL for IV PUSH) 80 mg 1X ONCE IVP Last administered on 01/07/19at 19:50; Start 01/07/19 at 20:00; Stop 01/07/19 at 20:01; Status DC Pantoprazole Sodium 80 mg/ Sodium Chloride 100 ml @ 10 mls/hr 1X ONCE IV Last administered on 01/07/19at 20:00; Start 01/07/19 at 20:00; Stop 01/08/19 at 05:59; Status DC Sodium Chloride 1,000 ml @ 1,000 mls/hr 1X ONCE IV Last administered on 01/07/19at 22:12; Start 01/07/19 at 21:00; Stop 01/07/19 at 21:59; Status DC Sodium Chloride 1,000 ml @ 1,000 mls/hr 1X ONCE IV Last administered on 01/07/19at 20:40; Start 01/07/19 at 20:45; Stop 01/07/19 at 21:44; Status DC Potassium Chloride/Sodium Chloride 1,000 ml @ 75 mls/hr 1X ONCE IV Last administered on 01/07/19at 21:16; Start 01/07/19 at 21:30; Stop 01/08/19 at 10:49; Status DC Vancomycin HCl (Vanco Per Pharmacy) 1 each PRN DAILY PRN MC SEE COMMENTS Last administered on 01/08/19at 00:43; Start 01/07/19 at 21:00; Stop 01/08/19 at 06:39; Status DC Piperacillin Sod/ Tazobactam Sod (Zosyn Per Pharmacy) 1 each PRN DAILY PRN MC SEE COMMENTS; Start 01/07/19 at 21:00; Stop 01/18/19 at 12:16; Status DC Piperacillin Sod/ Tazobactam Sod 3.375 gm/Sodium Chloride 50 ml @ 100 mls/hr Q6HRS IV Last administered on 01/18/19at 05:54; Start 01/07/19 at 22:00; Stop 01/18/19 at 12:16; Status DC Vancomycin HCl 2 gm/Sodium Chloride 500 ml @ 250 mls/hr 1X ONCE IV Last administered on 01/07/19at 22:11; Start 01/07/19 at 22:00; Stop 01/07/19 at 23:59; Status DC Lorazepam (Ativan Inj) 1 mg 1X ONCE IV Last administered on 01/07/19at 23:22; Start 01/07/19 at 23:30; Stop 01/07/19 at 23:31; Status DC Lorazepam (Ativan Inj) 2 mg STK-MED ONCE .ROUTE ; Start 01/07/19 at 23:20; Stop 01/07/19 at 23:21; Status DC Vancomycin HCl 1.5 gm/Sodium Chloride 500 ml @ 250 mls/hr Q12H IV ; Start 01/08/19 at 10:00; Stop 01/08/19 at 06:39; Status DC Vancomycin HCl (Vancomycin Trough Level) 1 each 1X ONCE MC ; Start 01/09/19 at 09:30; Stop 01/09/19 at 09:31; Status Cancel Ondansetron HCl (Zofran) 4 mg PRN Q6HRS PRN IVP NAUSEA/VOMITING; Start 01/08/19 at 04:00; Status Cancel Pantoprazole Sodium 80 mg/ Sodium Chloride 100 ml @ 10 mls/hr Q10H IV Last administered on 01/09/19at 02:00; Start 01/08/19 at 06:00; Stop 01/09/19 at 11:00; Status DC Multivitamins 10 ml/Thiamine HCl 100 mg/Folic Acid 1 mg/Sodium Chloride 1,011.2 ml @ 100 mls/ hr DAILY IV Last administered on 01/12/19at 10:29; Start 01/08/19 at 09:00; Stop 01/12/19 at 19:07; Status DC Lorazepam (Ativan Inj) 2 mg PRN Q1HR PRN IV For CIWA 8-14 Last administered on 01/14/19at 21:01; Start 01/08/19 at 07:15 Lorazepam (Ativan Inj) 4 mg PRN Q1HR PRN IV For CIWA 15 or greater Last administered on 01/15/19at 08:40; Start 01/08/19 at 07:15 Haloperidol Lactate (Haldol Inj) 5 mg PRN Q4HRS PRN IVP Hallucinatns,Confusn,Delirium; Start 01/08/19 at 07:15 Diphenhydramine HCl (Benadryl) 25 mg PRN Q15MIN PRN IVP EPS symptoms 2'Haldol admin; Start 01/08/19 at 07:15 Clonidine HCl (Catapres) 0.1 mg PRN Q1HR PRN PO SBP > 180 or DBP > 100, MRX3; Start 01/08/19 at 07:15 Sodium Bicarbonate (Sodium Bicarb Adult 8.4% Syr) 50 meq 1X ONCE IV Last administered on 01/08/19at 08:04; Start 01/08/19 at 08:00; Stop 01/08/19 at 08:01; Status DC Propofol 100 ml @ As Directed STK-MED ONCE IV ; Start 01/08/19 at 08:19; Stop 01/08/19 at 08:19; Status DC Succinylcholine Chloride (Anectine) 200 mg STK-MED ONCE .ROUTE ; Start 01/08/19 at 08:19; Stop 01/08/19 at 08:19; Status DC Propofol 100 ml @ As Directed STK-MED ONCE IV ; Start 01/08/19 at 08:29; Stop 01/08/19 at 08:30; Status DC Fentanyl Citrate 30 ml @ 0 mls/hr CONT PRN PRN IV PER PROTOCOL Last administered on 01/23/19at 05:37; Start 01/08/19 at 09:00 Naloxone HCl (Narcan) 0.4 mg PRN Q2MIN PRN IV SEE INSTRUCTIONS; Start 01/08/19 at 09:00 Sodium Chloride 1,000 ml @ 25 mls/hr Q24H IV Last administered on 01/22/19at 08:54; Start 01/08/19 at 08:54 Fentanyl Citrate (Fentanyl 2ml Vial) 100 mcg STK-MED ONCE .ROUTE ; Start 01/08/19 at 08:55; Stop 01/08/19 at 08:55; Status DC Octreotide Acetate 500 mcg/ Sodium Chloride 101 ml @ 0 mls/hr CONT PRN IV SEE I/O RECORD Last administered on 01/08/19at 13:56; Start 01/08/19 at 09:00; Stop 01/08/19 at 16:55; Status DC Phytonadione (Vitamin K Ampule) 10 mg 1X ONCE SQ Last administered on 01/08/19at 09:56; Start 01/08/19 at 09:15; Stop 01/08/19 at 09:16; Status DC Metoclopramide HCl (Reglan Vial) 10 mg 1X ONCE IVP Last administered on 01/08/19at 14:36; Start 01/08/19 at 11:00; Stop 01/08/19 at 11:01; Status DC Midazolam HCl (Versed) 5 mg STK-MED ONCE .ROUTE ; Start 01/08/19 at 09:00; Stop 01/08/19 at 09:01; Status DC Acetaminophen (Tylenol) 500 mg PRN Q6HRS PRN PO MILD PAIN / TEMP Last administered on 01/11/19at 17:46; Start 01/08/19 at 09:15; Stop 01/13/19 at 09:11; Status DC Tramadol HCl (Ultram) 50 mg PRN Q6HRS PRN PO PAIN MODERATE; Start 01/08/19 at 09:15 Morphine Sulfate (Morphine Sulfate) 2 mg PRN Q2HR PRN IV PAIN; Start 01/08/19 at 09:15 Ondansetron HCl (Zofran) 4 mg PRN Q6HRS PRN IVP NAUSEA/VOMITING, 1ST CHOICE; Start 01/08/19 at 09:15 Fentanyl Citrate (Fentanyl 2ml Vial) 100 mcg 1X ONCE IVP Last administered on 01/08/19at 09:42; Start 01/08/19 at 09:45; Stop 01/08/19 at 09:46; Status DC Midazolam HCl (Versed) 5 mg 1X ONCE IV Last administered on 01/08/19at 09:41; Start 01/08/19 at 09:45; Stop 01/08/19 at 09:46; Status DC Succinylcholine Chloride (Anectine) 200 mg 1X ONCE IV Last administered on 01/08/19 09:41; Start 01/08/19 at 09:45; Stop 01/08/19 at 09:46; Status DC Propofol 100 ml @ 1.524 mls/ hr CONT PRN IV SEE I/O RECORD Last administered on 01/14/19 03:56; Start 01/08/19 at 09:45 Midazolam HCl 100 ml @ 5 mls/hr CONT PRN IV SEE I/O RECORD Last administered on 01/23/19 07:36; Start 01/08/19 at 11:15 Vecuronium [place] (Norcuron Bolus) 6 mg PRN Q4HRS PRN IV VENT ASYNCHRONY Last administered on 01/23/19 11:35; Start 01/08/19 at 12:00 Benzocaine (Hurricaine One) 2 spray STK-MED ONCE .ROUTE ; Start 01/07/19 at 12:00; Stop 01/08/19 at 14:20; Status DC Lidocaine HCl (Xylocaine 2% Topical 5gm Tube) 5 amanda STK-MED ONCE TP ; Start 01/07/19 at 12:00; Stop 01/08/19 at 14:20; Status DC Lactobacillus Rhamnosus (Culturelle) 1 cap BID PO ; Start 01/08/19 at 21:00; Stop 01/09/19 at 09:29; Status DC Acetaminophen (Tylenol Supp) 650 mg PRN Q6HRS PRN [place] MILD PAIN / TEMP Last administered on 01/09/19at 23:44; Start 01/08/19 at 18:15 Norepinephrine Bitartrate 250 ml @ 18.938 mls/ hr CONT PRN IV SEE I/O RECORD Last administered on 01/19/19 06:31; Start 01/09/19 at 01:45; Stop 01/19/19 at 11:30; Status DC Potassium Chloride (Klor-Con) 40 meq 1X ONCE PO Last administered on 01/09/19at 11:34; Start 01/09/19 at 09:45; Stop 01/09/19 at 09:46; Status DC Metoclopramide HCl (Reglan Vial) 10 mg PRN Q6HRS PRN IVP NAUSEA/VOMITING, 2ND CHOICE Last administered on 01/14/19at 21:01; Start 01/09/19 at 10:15 Albumin Human 100 ml @ 100 mls/hr 1X ONCE IV Last administered on 01/09/19at 10:49; Start 01/09/19 at 10:15; Stop 01/09/19 at 11:14; Status DC Lactulose (LACTULOSE 300ML for RECTAL) 200 gm Q6HRS [place] ; Start 01/09/19 at 12:00; Stop 01/09/19 at 11:04; Status DC Insulin Human Lispro (HumaLOG) 0-9 UNITS TIDWMEALS SQ Last administered on 01/21/19at 08:00; Start 01/09/19 at 12:00 Dextrose (Dextrose 50%-Water Syringe) 12.5 gm PRN Q15MIN PRN IV SEE COMMENTS Last administered on 01/18/19at 22:35; Start 01/09/19 at 10:30 Fentanyl Citrate (Fentanyl 600 Mcg/30 ml FEED MILL [employer]PERATOR) 600 mcg STK-MED ONCE IV ; Start 01/08/19 at 15:25; Stop 01/09/19 at 10:27; Status DC Pantoprazole Sodium (PROTONIX VIAL for IV PUSH) 40 mg DAILYAC IVP Last administered on 01/23/19at 09:40; Start 01/10/19 at 07:30 Lactulose (Lactulose) 20 gm DAILY PO Last administered on 01/12/19at 08:24; Start 01/09/19 at 11:30; Stop 01/12/19 at 10:12; Status DC Potassium Bicarbonate (Potassium Effervescent Tablet) 40 meq BIDWMEALS FT Last administered on 01/10/19at 17:49; Start 01/10/19 at 09:00; Stop 01/11/19 at 09:20; Status DC Linezolid/Dextrose 300 ml @ 300 mls/hr Q12HR IV Last administered on 01/16/19at 08:26; Start 01/11/19 at 13:00; Stop 01/16/19 at 08:29; Status DC Perflutren Protein Type A Microsphe (Optison) 0.66 mg 1X ONCE IV ; Start 01/11/19 at 13:30; Stop 01/11/19 at 13:31; Status DC Albumin Human 100 ml @ 100 mls/hr 1X ONCE IV Last administered on 01/12/19at 08:25; Start 01/12/19 at 07:45; Stop 01/12/19 at 08:44; Status DC Lactulose (Lactulose) 20 gm PRN DAILY PRN PO constipation; Start 01/12/19 at 10:15; Stop 01/13/19 at 09:11; Status DC Acetaminophen (Tylenol) 650 mg PRN Q6HRS PRN PEG MILD PAIN / TEMP Last administered on 01/14/19at 09:11; Start 01/12/19 at 16:30 Lactulose (Lactulose) 20 gm TID PO Last administered on 01/14/19at 21:01; Start 01/13/19 at 10:00 Albumin Human 500 ml @ 125 mls/hr 1X ONCE IV Last administered on 01/13/19at 09:40; Start 01/13/19 at 10:00; Stop 01/13/19 at 13:59; Status DC Bisacodyl (Dulcolax Supp) 10 mg 1X ONCE [place] Last administered on 01/13/19at 10:14; Start 01/13/19 at 11:00; Stop 01/13/19 at 11:01; Status DC Lidocaine HCl (Buffered Lidocaine 1%) 3 ml 1X ONCE INJ Last administered on 01/13/19at 11:00; Start 01/13/19 at 11:00; Stop 01/13/19 at 11:01; Status DC Heparin Sodium (Porcine) (Heparin Sodium) 10,000 unit STK-MED ONCE .ROUTE ; Start 01/13/19 at 10:59; Stop 01/13/19 at 11:00; Status DC Darbepoetin Giorgi (ARANESP for DIALYSIS PTS) 60 mcg [id number] SQ Last administered on 01/20/19at 21:43; Start 01/13/19 at 21:00 Info (Tpn Per Pharmacy) 1 each PRN DAILY PRN MC SEE COMMENTS Last administered on 01/22/19at 11:27; Start 01/13/19 at 11:15 Sodium Chloride 1,000 ml @ 1,000 mls/hr Q1H PRN IV hypotension; Start 01/13/19 at 11:30; Stop 01/13/19 at 19:00; Status DC Albumin Human 200 ml @ 200 mls/hr 1X PRN PRN IV Hypotension; Start 01/13/19 at 11:30; Stop 01/13/19 at 17:29; Status DC Sodium Chloride 1,000 ml @ 400 mls/hr Q2H30M PRN IV PATENCY; Start 01/13/19 at 11:30; Stop 01/13/19 at 19:00; Status DC Info (PHARMACY MONITORING -- do not chart) 1 each PRN DAILY PRN MC SEE COMMENTS; Start 01/13/19 at 11:30 Info (PHARMACY MONITORING -- do not chart) 1 each PRN DAILY PRN MC SEE COMMENTS; Start 01/13/19 at 11:30; Status UNV Sodium Acetate 40 meq/Potassium Acetate 30 meq/ Calcium Gluconate 10 meq/ Multivitamins 10 ml/Chromium/ Copper/Manganese/ Seleni/Zn 1 ml/ Total Parenteral Nutrition/Amino Acids/Dextrose/ Fat Emulsion Intravenous 1,512 ml @ 63 mls/hr TPN CONT IV Last administered on 01/13/19at 21:54; Start 01/13/19 at 22:00; Stop 01/14/19 at 21:59; Status DC Multi-Ingred Cream/Lotion/Oil/ Oint (Artificial Tears Eye Ointment) 1 amanda PRN Q1HR PRN OU DRY EYE Last administered on 01/13/19at 17:14; Start 01/13/19 at 16:45 Docusate Sodium (Enemeez) 283 mg 1X ONCE [place] Last administered on 01/13/19at 17:14; Start 01/13/19 at 16:45; Stop 01/13/19 at 16:47; Status DC Levofloxacin/ Dextrose 100 ml @ 100 mls/hr Q24H IV Last administered on 01/23/19at 09:37; Start 01/14/19 at 09:00 Metoclopramide HCl (Reglan Vial) 5 mg 1X ONCE IVP Last administered on 01/14/19at 10:51; Start 01/14/19 at 10:30; Stop 01/14/19 at 10:31; Status DC Dexmedetomidine HCl 400 mcg/ Sodium Chloride 100 ml @ 0 mls/hr CONT PRN IV AGITATION Last administered on 01/23/19at 06:15; Start 01/14/19 at 11:30 Sodium Chloride 1,000 ml @ 1,000 mls/hr Q1H PRN IV hypotension; Start 01/14/19 at 11:26; Stop 01/14/19 at 17:25; Status DC Albumin Human 200 ml @ 200 mls/hr 1X PRN PRN IV Hypotension; Start 01/14/19 at 11:30; Stop 01/14/19 at 17:29; Status DC Sodium Chloride 1,000 ml @ 400 mls/hr Q2H30M PRN IV PATENCY; Start 01/14/19 at 11:26; Stop 01/14/19 at 23:25; Status DC Info (PHARMACY MONITORING -- do not chart) 1 each PRN DAILY PRN MC SEE COMMENTS ; Start 01/14/19 at 11:30; Status UNV Info (PHARMACY MONITORING -- do not chart) 1 each PRN DAILY PRN MC SEE COMMENTS; Start 01/14/19 at 11:30; Status UNV Sodium Chloride 30 meq/Sodium Acetate 40 meq/ Potassium Acetate 30 meq/Calcium Gluconate 10 meq/ Multivitamins 10 ml/Chromium/ Copper/Manganese/ Seleni/Zn 1 ml/ Total Parenteral Nutrition/Amino Acids/Dextrose/ Fat Emulsion Intravenous 1,512 ml @ 63 mls/hr TPN CONT IV Last administered on 01/15/19at 00:05; Start 01/14/19 at 22:00; Stop 01/15/19 at 21:59; Status DC Artificial Tears (Artificial Tears) 1 drop Q4H PRN OU DRY EYE Last administered on 01/14/19at 16:43; Start 01/14/19 at 15:30 Sodium Bicarbonate (Sodium Bicarb Adult 8.4% Syr) 50 meq STK-MED ONCE .ROUTE ; Start 01/15/19 at 08:25; Stop 01/15/19 at 08:25; Status DC Sodium Bicarbonate (Sodium Bicarb Adult 8.4% Syr) 100 meq 1X ONCE IV Last administered on 01/15/19at 08:31; Start 01/15/19 at 08:30; Stop 01/15/19 at 08:31; Status DC Sodium Chloride 40 meq/Sodium Acetate 40 meq/ Potassium Acetate 10 meq/Calcium Gluconate 10 meq/ Multivitamins 10 ml/Chromium/ Copper/Manganese/ Seleni/Zn 1 ml/ Total Parenteral Nutrition/Amino Acids/Dextrose/ Fat Emulsion Intravenous 1,512 ml @ 63 mls/hr TPN CONT IV ; Start 01/15/19 at 22:00; Stop 01/15/19 at 11:06; Status DC Vasopressin 40 unit/Dextrose 102 ml @ 6 mls/hr CONT PRN IV SEE I/O RECORD Last administered on 01/20/19at 19:31; Start 01/15/19 at 10:00 Sodium Chloride 1,000 ml @ 1,000 mls/hr Q1H PRN IV hypotension; Start 01/15/19 at 10:00; Stop 01/15/19 at 15:59; Status DC Albumin Human 200 ml @ 200 mls/hr 1X PRN PRN IV Hypotension Last administered on 01/15/19at 11:07; Start 01/15/19 at 10:00; Stop 01/15/19 at 15:59; Status DC Sodium Chloride 1,000 ml @ 400 mls/hr Q2H30M PRN IV PATENCY; Start 01/15/19 at 10:00; Stop 01/15/19 at 21:59; Status DC Info (PHARMACY MONITORING -- do not chart) 1 each PRN DAILY PRN MC SEE COMMENTS; Start 01/15/19 at 10:00; Stop 01/15/19 at 10:57; Status DC Info (PHARMACY MONITORING -- do not chart) 1 each PRN DAILY PRN MC SEE COMMENTS; Start 01/15/19 at 10:00; Stop 01/15/19 at 10:57; Status DC Sodium Chloride 40 meq/Sodium Acetate 40 meq/ Potassium Acetate 10 meq/Calcium Gluconate 10 meq/ Multivitamins 10 ml/Chromium/ Copper/Manganese/ Seleni/Zn 1 m l/ Thiamine HCl 100 mg/Total Parenteral Nutrition/Amino Acids/Dextrose/ Fat Emulsion Intravenous 1,512 ml @ 63 mls/hr TPN CONT IV ; Start 01/15/19 at 22:00; Stop 01/15/19 at 14:18; Status DC Potassium Chloride 20 meq/ Bicarbonate Dialysis Soln w/ out KCl 5,010 ml @ 1,000 mls/hr Q5H1M IV Last administered on 01/15/19at 15:40; Start 01/15/19 at 14:00; Stop 01/15/19 at 19:00; Status DC Potassium Chloride 20 meq/ Bicarbonate Dialysis Soln w/ out KCl 5,010 ml @ 1,000 mls/hr Q5H1M IV Last administered on 01/15/19at 15:50; Start 01/15/19 at 14:00; Stop 01/15/19 at 19:00; Status DC Potassium Chloride 20 meq/ Bicarbonate Dialysis Soln w/ out KCl 5,010 ml @ 1,000 mls/hr Q5H1M IV Last administered on 01/15/19at 15:50; Start 01/15/19 at 14:00; Stop 01/15/19 at 19:00; Status DC Albumin Human 100 ml @ 100 mls/hr Q6HRS IV Last administered on 01/23/19at 05:58; Start 01/15/19 at 14:00 Potassium Phosphate 20 mmol/ Sodium Chloride 256.6667 ml @ 128.... PRN Q6HRS PRN IV FOR PO4 < 2.5 Last administered on 01/22/19at 14:28; Start 01/15/19 at 14:00 Sodium Chloride 40 meq/Sodium Acetate 40 meq/ Calcium Gluconate 10 meq/ Multivitamins 10 ml/Chromium/ Copper/Manganese/ Seleni/Zn 1 ml/ Thiamine HCl 100 mg/Total Parenteral Nutrition/Amino Acids/Dextrose/ Fat Emulsion Intravenous 1,512 ml @ 63 mls/hr TPN CONT IV Last administered on 01/15/19at 21:45; Start 01/15/19 at 22:00; Stop 01/16/19 at 21:59; Status DC Potassium Chloride 20 meq/ Bicarbonate Dialysis Soln w/ out KCl 5,010 ml @ 500 mls/hr Q10H2M IV Last administered on 01/17/19at 10:43; Start 01/15/19 at 19:01; Stop 01/17/19 at 15:00; Status DC Potassium Chloride 20 meq/ Bicarbonate Dialysis Soln w/ out KCl 5,010 ml @ 1,200 mls/hr Q4H11M IV Last administered on 01/17/19at 10:36; Start 01/15/19 at 19:01; Stop 01/17/19 at 15:00; Status DC Potassium Chloride 20 meq/ Bicarbonate Dialysis Soln w/ out KCl 5,010 ml @ 1,200 mls/hr Q4H11M IV Last administered on 01/17/19at 00:17; Start 01/15/19 at 19:00; Stop 01/17/19 at 15:00; Status DC Daptomycin 500 mg/ Sodium Chloride 50 ml @ 100 mls/hr Q48H IV Last administered on 01/20/19at 09:16; Start 01/16/19 at 09:00; Stop 01/22/19 at 08:12; Status DC Sodium Chloride 60 meq/Sodium Acetate 40 meq/ Calcium Gluconate 10 meq/ Multivitamins 10 ml/Chromium/ Copper/Manganese/ Seleni/Zn 1 ml/ Thiamine HCl 100 mg/Total Parenteral Nutrition/Amino Acids/Dextrose/ Fat Emulsion Intravenous 1,512 ml @ 63 mls/hr TPN CONT IV Last administered on 01/16/19at 22:00; Start 01/16/19 at 22:00; Stop 01/18/19 at 10:50; Status DC Sodium Chloride 80 meq/Calcium Gluconate 10 meq/ Multivitamins 10 ml/Chromium/ Copper/Manganese/ Seleni/Zn 1 ml/ Thiamine HCl 100 mg/Total Parenteral Nutrition/Amino Acids/Dextrose/ Fat Emulsion Intravenous 1,512 ml @ 63 mls/hr TPN CONT IV Last administered on 01/17/19at 21:52; Start 01/17/19 at 22:00; Stop 01/18/19 at 21:59; Status DC Potassium Chloride 20 meq/ Sodium Bicarbonate 40 meq/Bicarbonate Dialysis Soln w/ out KCl 5,050 ml @ 500 mls/hr Q10H6M IV Last administered on 01/18/19at 08:17; Start 01/17/19 at 15:00; Stop 01/18/19 at 18:00; Status DC Potassium Chloride 20 meq/ Sodium Bicarbonate 40 meq/Bicarbonate Dialysis Soln w/ out KCl 5,050 ml @ 1,200 mls/hr Q4H13M IV Last administered on 01/18/19at 06:01; Start 01/17/19 at 15:00; Stop 01/18/19 at 09:51; Status DC Potassium Chloride 20 meq/ Sodium Bicarbonate 40 meq/Bicarbonate Dialysis Soln w/ out KCl 5,050 ml @ 1,200 mls/hr Q4H13M IV Last administered on 01/18/19at 06:01; Start 01/17/19 at 15:00; Stop 01/18/19 at 09:51; Status DC Potassium Phosphate 20 mmol/ Sodium Chloride 256.6667 ml @ 128.... ONCE ONCE IV Last administered on 01/17/19at 18:21; Start 01/17/19 at 17:45; Stop 01/17/19 at 19:44; Status DC Calcium Chloride 12.5 meq/ Magnesium Sulfate 2.5 meq/Potassium Chloride 10 meq/ Sodium Bicarbonate 40 meq/Bicarbonate Dialysis Soln w/ out KCl 5,054.5443 ml @ 1,200 mls/hr Q4H13M IV Last administered on 01/19/19at 03:20; Start 01/18/19 at 10:00; Stop 01/19/19 at 07:47; Status DC Calcium Chloride 12.5 meq/ Magnesium Sulfate 2.5 meq/Potassium Chloride 10 meq/ Sodium Bicarbonate 40 meq/Bicarbonate Dialysis Soln w/ out KCl 5,054.5443 ml @ 1,200 mls/hr Q4H13M IV Last administered on 01/19/19at 03:21; Start 01/18/19 at 10:00; Stop 01/19/19 at 07:47; Status DC Calcium Chloride 12.5 meq/ Magnesium Sulfate 2.5 meq/Potassium Chloride 10 meq/ Sodium Bicarbonate 40 meq/Bicarbonate Dialysis Soln w/ out KCl 5,054.5443 ml @ 500 mls/hr Q10H7M IV Last administered on 01/19/19at 05:16; Start 01/18/19 at 18:00; Stop 01/19/19 at 07:48; Status DC Meropenem 500 mg/ Sodium Chloride 50 ml @ 100 mls/hr Q8HRS IV Last administered on 01/19/19at 06:02; Start 01/18/19 at 14:00; Stop 01/19/19 at 09:24; Status DC Sodium Chloride 80 meq/Calcium Gluconate 10 meq/ Multivitamins 10 ml/Chromium/ Copper/Manganese/ Seleni/Zn 1 ml/ Thiamine HCl 100 mg/Total Parenteral Nutrition/Amino Acids/Dextrose/ Fat Emulsion Intravenous 1,512 ml @ 63 mls/hr TPN CONT IV Last administered on 01/18/19at 21:37; Start 01/18/19 at 22:00; Stop 01/19/19 at 21:59; Status DC Epinephrine HCl 4 mg/Sodium Chloride 254 ml @ 41.822 mls/ hr CONT PRN IV SEE I/O RECORD; Start 01/18/19 at 16:15; Stop 01/19/19 at 18:00; Status DC Methylprednisolone Sodium Succinate (SOLU-Medrol 125MG VIAL) 125 mg 1X ONCE IV Last administered on 01/18/19at 16:30; Start 01/18/19 at 16:30; Stop 01/18/19 at 16:31; Status DC Methylprednisolone Sodium Succinate (SOLU-Medrol 125MG VIAL) 125 mg STK-MED ONCE .ROUTE ; Start 01/18/19 at 16:26; Stop 01/18/19 at 16:26; Status DC Calcium Chloride 12.5 meq/ Potassium Chloride 5 meq/ Sodium Bicarbonate 40 meq/Bicarbonate Dialysis Soln w/ out KCl 5,051.4286 ml @ 1,200 mls/hr Q4H13M IV Last administered on 01/20/19at 11:31; Start 01/19/19 at 08:00; Stop 01/20/19 at 11:30; Status DC Calcium Chloride 12.5 meq/ Potassium Chloride 5 meq/ Sodium Bicarbonate 40 meq/Bicarbonate Dialysis Soln w/ out KCl 5,051.4286 ml @ 1,200 mls/hr Q4H13M IV Last administered on 01/20/19at 11:30; Start 01/19/19 at 08:00; Stop 01/20/19 at 11:30; Status DC Calcium Chloride 12.5 meq/ Potassium Chloride 5 meq/ Sodium Bicarbonate 40 meq/Bicarbonate Dialysis Soln w/ out KCl 5,051.4286 ml @ 500 mls/hr Q10H7M IV Last administered on 01/20/19at 03:09; Start 01/19/19 at 15:00; Stop 01/20/19 at 11:30; Status DC Meropenem 1 gm/ Sodium Chloride 100 ml @ 200 mls/hr Q12H IV Last administered on 01/19/19at 14:36; Start 01/19/19 at 14:00; Stop 01/19/19 at 16:00; Status DC Albumin Human 100 ml @ As Directed STK-MED ONCE IV ; Start 01/19/19 at 10:44; Stop 01/19/19 at 10:44; Status DC Norepinephrine Bitartrate 32 mg/ Sodium Chloride 250 ml @ 7 mls/hr CONT PRN IV SEE I/O RECORD Last administered on 01/22/19at 22:40; Start 01/19/19 at 11:30 Sodium Chloride 80 meq/Calcium Gluconate 10 meq/ Multivitamins 10 ml/Chromium/ Copper/Manganese/ Seleni/Zn 1 ml/ Thiamine HCl 100 mg/Total Parenteral Nutrition/Amino Acids/Dextrose/ Fat Emulsion Intravenous 1,200 ml @ 50 mls/hr TPN CONT IV Last administered on 01/19/19at 21:30; Start 01/19/19 at 22:00; Stop 01/20/19 at 21:59; Status DC Epinephrine HCl 8 mg/Sodium Chloride 258 ml @ 20.9 mls/hr CONT PRN IV SEE I/O RECORD; Start 01/19/19 at 14:15 Meropenem 1 gm/ Sodium Chloride 50 ml @ 100 mls/hr Q12H IV Last administered on 01/23/19at 09:36; Start 01/20/19 at 02:00 Albumin Human 100 ml @ As Directed STK-MED ONCE IV ; Start 01/19/19 at 17:00; Stop 01/19/19 at 17:00; Status DC Potassium Phosphate 20 mmol/ Sodium Chloride 256.6667 ml @ 128.... 1X ONCE IV Last administered on 01/20/19at 06:19; Start 01/20/19 at 06:15; Stop 01/20/19 at 08:14; Status DC Phytonadione 10 mg/Dextrose 51 ml @ 102 mls/hr 1X ONCE IV Last administered on 01/20/19at 11:07; Start 01/20/19 at 10:45; Stop 01/20/19 at 11:14; Status DC Calcium Chloride 12.5 meq/ Potassium Chloride 5 meq/ Bicarbonate Dialysis Soln w/ out KCl 5,011.4286 ml @ 1,200 mls/hr Q4H11M IV Last administered on 01/22/19at 16:26; Start 01/20/19 at 11:00; Stop 01/22/19 at 20:00; Status DC Calcium Chloride 12.5 meq/ Potassium Chloride 5 meq/ Bicarbonate Dialysis Soln w/ out KCl 5,011.4286 ml @ 1,200 mls/hr Q4H11M IV ; Start 01/20/19 at 11:30; Stop 01/20/19 at 10:31; Status DC Calcium Chloride 12.5 meq/ Potassium Chloride 5 meq/ Bicarbonate Dialysis Soln w/ out KCl 5,011.4286 ml @ 1,200 mls/hr Q4H11M IV Last administered on 01/22/19at 16:26; Start 01/20/19 at 10:30; Stop 01/22/19 at 20:00; Status DC Calcium Chloride 12.5 meq/ Potassium Chloride 5 meq/ Bicarbonate Dialysis Soln w/ out KCl 5,011.4286 ml @ 500 mls/hr Q10H2M IV Last administered on 01/22/19at 07:59; Start 01/20/19 at 11:30; Stop 01/22/19 at 16:21; Status DC Sodium Chloride 80 meq/Calcium Gluconate 20 meq/ Multivitamins 10 ml/Chromium/ Copper/Manganese/ Seleni/Zn 1 ml/ Thiamine HCl 100 mg/Total Parenteral Nu trition/Amino Acids/Dextrose/ Fat Emulsion Intravenous 1,200 ml @ 50 mls/hr TPN CONT IV Last administered on 01/20/19at 21:43; Start 01/20/19 at 22:00; Stop 01/21/19 at 21:59; Status DC Potassium Phosphate 40 mmol/ Sodium Chloride 263.3333 ml @ 62.5 mls/hr 1X ONCE IV Last administered on 01/20/19at 16:03; Start 01/20/19 at 16:00; Stop 01/20/19 at 20:12; Status DC Sodium Phosphate 40 mmol/Dextrose 263.3333 ml @ 62.5 mls/hr 1X ONCE IV Last administered on 01/21/19at 09:26; Start 01/21/19 at 09:00; Stop 01/21/19 at 13:13; Status DC Sodium Chloride 80 meq/Calcium Gluconate 25 meq/ Multivitamins 10 ml/Chromium/ Copper/Manganese/ Seleni/Zn 1 ml/ Thiamine HCl 100 mg/Total Parenteral Nutrition/Amino Acids/Dextrose/ Fat Emulsion Intravenous 1,512 ml @ 63 mls/hr TPN CONT IV Last administered on 01/21/19at 22:09; Start 01/21/19 at 22:00; Stop 01/22/19 at 21:59; Status DC Epinephrine HCl (EPINEPHrine SYRINGE) 1 mg STK-MED ONCE .ROUTE ; Start 01/19/19 at 12:00; Stop 01/21/19 at 15:55; Status DC Sodium Bicarbonate (Sodium Bicarb Adult 8.4% Syr) 50 meq STK-MED ONCE .ROUTE ; Start 01/19/19 at 12:00; Stop 01/21/19 at 15:55; Status DC Magnesium Sulfate 50 ml @ 25 mls/hr 1X ONCE IV Last administered on 01/21/19at 16:24; Start 01/21/19 at 16:30; Stop 01/21/19 at 18:29; Status DC Potassium Phosphate 40 mmol/ Sodium Chloride 263.3333 ml @ 62.5 mls/hr 1X ONCE IV Last administered on 01/21/19at 22:00; Start 01/21/19 at 21:45; Stop 01/22/19 at 01:57; Status DC Potassium Phosphate 20 mmol/ Sodium Chloride 256.6667 ml @ 62.5 mls/hr 1X ONCE IV Last administered on 01/22/19at 06:22; Start 01/22/19 at 06:30; Stop 01/22/19 at 10:36; Status DC Sodium Chloride 80 meq/Calcium Gluconate 25 meq/ Multivitamins 10 ml/Chromium/ Copper/Manganese/ Seleni/Zn 1 ml/ Thiamine HCl 100 mg/Total Parenteral Nutrition/Amino Acids/Dextrose/ Fat Emulsion Intravenous 1,512 ml @ 63 mls/hr TPN CONT IV Last administered on 01/22/19at 22:03; Start 01/22/19 at 22:00 Potassium Chloride 15 meq/ Bicarbonate Dialysis Soln w/ out KCl 5,007.5 ml @ 500 mls/ hr Q10H1M IV Last administered on 01/23/19at 05:01; Start 01/22/19 at 17:00 Potassium Chloride 15 meq/ Bicarbonate Dialysis Soln w/ out KCl 5,007.5 ml @ 1,200 mls/ hr Q4H11M IV Last administered on 01/23/19at 05:00; Start 01/22/19 at 20:01 Potassium Chloride 15 meq/ Bicarbonate Dialysis Soln w/ out KCl 5,007.5 ml @ 1,200 mls/ hr Q4H11M IV Last administered on 01/23/19at 05:00; Start 01/22/19 at 20:01 Magnesium Sulfate 100 ml @ 50 mls/hr DAILY IV Last administered on 01/22/19at 22:12; Start 01/22/19 at 22:30; Stop 01/26/19 at 22:29 Daptomycin 490 mg/ Sodium Chloride 50 ml @ 100 mls/hr Q48H IV Last administered on 01/23/19at 09:40; Start 01/23/19 at 09:00 Micafungin Sodium 100 mg/Dextrose 100 ml @ 100 mls/hr Q24H IV ; Start 01/23/19 at 10:00 Vitals/I & O Vital Sign - Last 24 Hours 01/22/19 01/22/19 01/22/19 01/22/19 12:00 12:00 12:02 13:00 Temp 98.1 98.1 Pulse 100 98 Resp 24 24 B/P (MAP) 117/57 (77) 110/55 (73) Pulse Ox 100 100 100 O2 Delivery Mechanical Ventilator Ventilator Ventilator Ventilator 01/22/19 01/22/19 01/22/19 01/22/19 13:17 14:00 14:19 15:00 Pulse 104 103 Resp 25 24 24 24 B/P (MAP) 119/44 (69) 102/49 (66) Pulse Ox 100 100 100 100 O2 Delivery Ventilator Ventilator Ventilator Ventilator 01/22/19 01/22/19 01/22/19 01/22/19 15:37 15:56 16:00 17:00 Temp 98.6 98.6 Pulse 105 112 Resp 24 28 B/P (MAP) 110/52 (71) 109/50 (69) Pulse Ox 100 100 100 O2 Delivery Ventilator Mechanical Ventilator Ventilator Ventilator 01/22/19 01/22/19 01/22/19 01/22/19 18:00 18:30 18:35 19:00 Pulse 106 Resp 24 24 B/P (MAP) 120/53 (75) Pulse Ox 100 97 100 95 O2 Delivery Ventilator Ventilator Ventilator Ventilator 01/22/19 01/22/19 01/22/19 01/22/19 19:00 20:00 20:00 20:20 Temp 98.6 98.6 Pulse 106 98 Resp 27 24 B/P (MAP) 114/48 (70) 97/46 (63) Pulse Ox 96 96 95 O2 Delivery Ventilator Ventilator Mechanical Ventilator Ventilator 01/22/19 01/22/19 01/22/19 01/22/19 21:00 22:00 23:00 23:28 Temp 98.2 98.2 Pulse 103 104 102 Resp 24 24 24 B/P (MAP) 108/46 (66) 122/46 (71) 112/48 (69) Pulse Ox 94 94 94 94 O2 Delivery Ventilator Ventilator Ventilator Ventilator 01/22/19 01/22/19 01/22/19 01/23/19 23:40 23:58 23:59 00:00 Temp 98.4 98.4 Pulse 106 Resp 25 B/P (MAP) 101/40 (60) Pulse Ox 95 95 94 O2 Delivery Ventilator Ventilator Mechanical Ventilator Ventilator 01/23/19 01/23/19 01/23/19 01/23/19 01:00 01:06 02:00 03:00 Pulse 101 100 101 Resp 24 24 24 B/P (MAP) 100/43 (62) 104/38 (60) 109/31 (57) Pulse Ox 94 94 94 91 O2 Delivery Ventilator Ventilator Ventilator Ventilator 01/23/19 01/23/19 01/23/19 01/23/19 04:00 04:00 04:16 05:00 Temp 98.2 98.2 Pulse 98 100 Resp 25 24 B/P (MAP) 107/31 (56) 106/30 (55) Pulse Ox 92 90 93 O2 Delivery Ventilator Mechanical Ventilator Ventilator Ventilator 01/23/19 01/23/19 01/23/19 01/23/19 05:18 05:37 06:00 06:07 Pulse 100 Resp 24 B/P (MAP) 95/25 (48) Pulse Ox 92 93 91 91 O2 Delivery Ventilator Ventilator Ventilator Ventilator 01/23/19 01/23/19 01/23/19 01/23/19 07:00 07:30 07:39 08:00 Temp 99.2 99.2 Pulse 94 92 102 Resp 24 25 25 B/P (MAP) 80/33 (49) 86/34 (51) 115/36 (62) Pulse Ox 92 94 93 97 O2 Delivery Ventilator Ventilator Ventilator Ventilator 01/23/19 01/23/19 01/23/19 08:29 08:41 11:28 Pulse 101 Resp 25 B/P (MAP) 115/50 (71) Pulse Ox 95 96 93 O2 Delivery Ventilator Ventilator Ventilator Intake and Output 01/22/19 01/22/19 01/23/19 15:00 23:00 07:00 Intake Total 667 ml 2742.81 ml 1285 ml Output Total 0 ml 320 ml 0 ml Balance 667 ml 2422.81 ml 1285 ml MAIK GUNN MD Jan 23, 2019 11:50
--- NOTE | 2019-01-23 12:15 | NUR ---
7A Desats w movement /slightest turn. Recovery time less than 10 min now for sats to return to 93+. Secretions remain copious blood tinged /orange. H/H static. Repositioned coccyx pad . Weeping L arm persists.,contained w pads. Levo slightly increased after am movement( see flow sheets). Sats maintained at 94+. PC increase from 22 -26 after sats decreased. Status quo for time being. Discussion on' what's next' started w deanna nurse and continued keith Montoya RN.
--- NOTE | 2019-01-23 12:17 | PDOC ---
SUBJECTIVE ROS intubated,sedated. on Levophed,,Tolerating CRRT OBJECTIVE Vital Signs Vital Signs Date Time Temp Pulse Resp B/P (MAP) Pulse Ox O2 Delivery O2 Flow Rate FiO2 01/23/19 12:04 96 01/23/19 11:28 Ventilator 01/23/19 08:29 101 25 115/50 (71) 01/23/19 07:00 99.2 99.2 I & 0 Intake and Output 01/23/19 07:00 Intake Total 4694.81 ml Output Total 320 ml Balance 4374.81 ml IV Total 4574.81 ml Other 120 ml Output Urine Total 0 ml Gastric Drainage Total 320 ml PHYSICAL EXAM Physical Exam GENERAL: Orally intubated and sedated, CRRT HEENT: Icteric, Pupils equal, ETT and OGT LUNGS: Decreased at bases HEART: S1 S2 regular ABDOMEN: Obese, soft, : - Pollard + EXTREMITIES:gen edema, LLE ecchymosis. SKIN: Warm to touch. No rash NEUROLOGIC: Sedated Temp RIJ/HDC (01/13) DIAGNOSIS/ASSESSMENT Assessment & Plan DOMONIQUE/ ATN: anuric seen on CRRT , tolerating UF , continue as ordered, Dw RN Switch to HD when hemodynamically stable Supportive care, Avoid Nephrotoxins, Monitor Hypotension - on low dose Levophed Thrombocytopenia -per Hem/Onc Resp failure s/p intubation. + mycoplasma (01/14) GI Bleed - s/p EGD 01/08 - Reflux esophagitis. ? recent M-W tear. Alcoholic gastritis. Anemia - per Primary and Hem/Onc S/P PRBC 01/21 Cirrhosis /Alcoholic hepatitis - Hep C Ab positive, GI following Heavy ETOH abuse Critically ill COMMENT/RELEVANT DATA Meds Current Medications Medications (Trade) Dose Ordered Sig/Quyen Start Time Stop Time Status Last Admin Dose Admin Acetaminophen (Tylenol Supp) 650 mg PRN Q6HRS PRN 01/08/19 18:15 01/09/19 23:44 650 MG Acetaminophen (Tylenol) 650 mg PRN Q6HRS PRN 01/12/19 16:30 01/14/19 09:11 650 MG Albumin Human 100 ml @ As Directed STK-MED ONCE 01/19/19 17:00 01/19/19 17:00 DC Artificial Tears (Artificial Tears) 1 drop Q4H PRN 01/14/19 15:30 01/14/19 16:43 1 DROP Benzocaine (Hurricaine One) 2 spray STK-MED ONCE 01/07/19 12:00 01/08/19 14:20 DC Bisacodyl (Dulcolax Supp) 10 mg 1X ONCE 01/13/19 11:00 01/13/19 11:01 DC 01/13/19 10:14 10 MG Calcium Chloride 12.5 meq/ Magnesium Sulfate 2.5 meq/Potassium Chloride 10 meq/ Sodium Bicarbonate 40 meq/Bicarbonate Dialysis Soln w/ out KCl 5,054.5443 ml @ 500 mls/hr Q10H7M 01/18/19 18:00 01/19/19 07:48 DC 01/19/19 05:16 500 MLS/HR Calcium Chloride 12.5 meq/ Potassium Chloride 5 meq/ Bicarbonate Dialysis Soln w/ out KCl 5,011.4286 ml @ 500 mls/hr Q10H2M 01/20/19 11:30 01/22/19 16:21 DC 01/22/19 07:59 500 MLS/HR Calcium Chloride 12.5 meq/ Potassium Chloride 5 meq/ Sodium Bicarbonate 40 meq/Bicarbonate Dialysis Soln w/ out KCl 5,051.4286 ml @ 500 mls/hr Q10H7M 01/19/19 15:00 01/20/19 11:30 DC 01/20/19 03:09 500 MLS/HR Clonidine HCl (Catapres) 0.1 mg PRN Q1HR PRN 01/08/19 07:15 Daptomycin 490 mg/ Sodium Chloride 50 ml @ 100 mls/hr Q48H 01/23/19 09:00 01/23/19 09:40 100 MLS/HR Daptomycin 500 mg/ Sodium Chloride 50 ml @ 100 mls/hr Q48H 01/16/19 09:00 01/22/19 08:12 DC 01/20/19 09:16 100 MLS/HR Darbepoetin Giorgi (ARANESP for DIALYSIS PTS) 60 mcg WEEKLYHS 01/13/19 21:00 01/20/19 21:43 60 MCG Dexmedetomidine HCl 400 mcg/ Sodium Chloride 100 ml @ 0 mls/hr CONT PRN 01/14/19 11:30 01/23/19 06:15 26.5 MLS/HR Dextrose (Dextrose 50%-Water Syringe) 12.5 gm PRN Q15MIN PRN 01/09/19 10:30 01/18/19 22:35 25 GM Diphenhydramine HCl (Benadryl) 25 mg PRN Q15MIN PRN 01/08/19 07:15 Docusate Sodium (Enemeez) 283 mg 1X ONCE 01/13/19 16:45 01/13/19 16:47 DC 01/13/19 17:14 283 MG Epinephrine HCl (EPINEPHrine SYRINGE) 1 mg STK-MED ONCE 01/19/19 12:00 01/21/19 15:55 DC Epinephrine HCl 4 mg/Sodium Chloride 254 ml @ 41.822 mls/ hr CONT PRN 01/18/19 16:15 01/19/19 18:00 DC Epinephrine HCl 8 mg/Sodium Chloride 258 ml @ 20.9 mls/hr CONT PRN 01/19/19 14:15 Fentanyl Citrate (Fentanyl 2ml Vial) 100 mcg 1X ONCE 01/08/19 09:45 01/08/19 09:46 DC 01/08/19 09:42 100 MCG Fentanyl Citrate (Fentanyl 600 Mcg/30 ml TRANSPORTATION SUPERINTENDENT) 600 mcg STK-MED ONCE 01/08/19 15:25 01/09/19 10:27 DC Haloperidol Lactate (Haldol Inj) 5 mg PRN Q4HRS PRN 01/08/19 07:15 Heparin Sodium (Porcine) (Heparin Sodium) 10,000 unit STK-MED ONCE 01/13/19 10:59 01/13/19 11:00 DC Info (PHARMACY MONITORING -- do not chart) 1 each PRN DAILY PRN 01/15/19 10:00 01/15/19 10:57 DC Info (Tpn Per Pharmacy) 1 each PRN DAILY PRN 01/13/19 11:15 01/22/19 11:27 1 EACH Insulin Human Lispro (HumaLOG) 0-9 UNITS TIDWMEALS 01/09/19 12:00 01/21/19 08:00 4 UNITS Lactobacillus Rhamnosus (Culturelle) 1 cap BID 01/08/19 21:00 01/09/19 09:29 DC Lactulose (LACTULOSE 300ML for RECTAL) 200 gm Q6HRS 01/09/19 12:00 01/09/19 11:04 DC Lactulose (Lactulose) 20 gm TID 01/13/19 10:00 01/14/19 21:01 20 GM Levofloxacin/ Dextrose 100 ml @ 100 mls/hr Q24H 01/14/19 09:00 01/23/19 09:37 100 MLS/HR Lidocaine HCl (Buffered Lidocaine 1%) 3 ml 1X ONCE 01/13/19 11:00 01/13/19 11:01 DC 01/13/19 11:00 3 ML Lidocaine HCl (Xylocaine 2% Topical 5gm Tube) 5 amanda STK-MED ONCE 01/07/19 12:00 01/08/19 14:20 DC Linezolid/Dextrose 300 ml @ 300 mls/hr Q12HR 01/11/19 13:00 01/16/19 08:29 DC 01/16/19 08:26 300 MLS/HR Lorazepam (Ativan Inj) 4 mg PRN Q1HR PRN 01/08/19 07:15 01/15/19 08:40 4 MG Magnesium Sulfate 100 ml @ 50 mls/hr DAILY 01/22/19 22:30 01/26/19 22:29 01/22/19 22:12 50 MLS/HR Meropenem 1 gm/ Sodium Chloride 50 ml @ 100 mls/hr Q12H 01/20/19 02:00 01/23/19 09:36 100 MLS/HR Meropenem 500 mg/ Sodium Chloride 50 ml @ 100 mls/hr Q8HRS 01/18/19 14:00 01/19/19 09:24 DC 01/19/19 06:02 100 MLS/HR Methylprednisolone Sodium Succinate (SOLU-Medrol 125MG VIAL) 125 mg STK-MED ONCE 01/18/19 16:26 01/18/19 16:26 DC Metoclopramide HCl (Reglan Vial) 5 mg 1X ONCE 01/14/19 10:30 01/14/19 10:31 DC 01/14/19 10:51 5 MG Micafungin Sodium 100 mg/Dextrose 100 ml @ 100 mls/hr Q24H 01/23/19 10:00 Midazolam HCl 100 ml @ 5 mls/hr CONT PRN 01/08/19 11:15 01/23/19 07:36 10 MLS/HR Midazolam HCl (Versed) 5 mg 1X ONCE 01/08/19 09:45 01/08/19 09:46 DC 01/08/19 09:41 5 MG Morphine Sulfate (Morphine Sulfate) 2 mg PRN Q2HR PRN 01/08/19 09:15 Multi-Ingred Cream/Lotion/Oil/ Oint (Artificial Tears Eye Ointment) 1 amanda PRN Q1HR PRN 01/13/19 16:45 01/13/19 17:14 1 AMANDA Multivitamins 10 ml/Thiamine HCl 100 mg/Folic Acid 1 mg/Sodium Chloride 1,011.2 ml @ 100 mls/ hr DAILY 01/08/19 09:00 01/12/19 19:07 DC 01/12/19 10:29 100 MLS/HR Naloxone HCl (Narcan) 0.4 mg PRN Q2MIN PRN 01/08/19 09:00 Norepinephrine Bitartrate 250 ml @ 18.938 mls/ hr CONT PRN 01/09/19 01:45 01/19/19 11:30 DC 01/19/19 06:31 28.406 MLS/HR Norepinephrine Bitartrate 32 mg/ Sodium Chloride 250 ml @ 7 mls/hr CONT PRN 01/19/19 11:30 01/22/19 22:40 3.5 MLS/HR Octreotide Acetate 500 mcg/ Sodium Chloride 101 ml @ 0 mls/hr CONT PRN 01/08/19 09:00 01/08/19 16:55 DC 01/08/19 13:56 10.1 MLS/HR Ondansetron HCl (Zofran) 4 mg PRN Q6HRS PRN 01/08/19 09:15 Pantoprazole Sodium (PROTONIX VIAL for IV PUSH) 40 mg DAILYAC 01/10/19 07:30 01/23/19 09:40 40 MG Pantoprazole Sodium 80 mg/ Sodium Chloride 100 ml @ 10 mls/hr Q10H 01/08/19 06:00 01/09/19 11:00 DC 01/09/19 02:00 10 MLS/HR Perflutren Protein Type A Microsphe (Optison) 0.66 mg 1X ONCE 01/11/19 13:30 01/11/19 13:31 DC Phytonadione (Vitamin K Ampule) 10 mg 1X ONCE 01/08/19 09:15 11/21/19 09:16 DC 01/08/19 09:56 10 MG Phytonadione 10 mg/Dextrose 51 ml @ 102 mls/hr 1X ONCE 01/20/19 10:45 01/20/19 11:14 DC 01/20/19 11:07 102 MLS/HR Piperacillin Sod/ Tazobactam Sod (Zosyn Per Pharmacy) 1 each PRN DAILY PRN 01/07/19 21:00 01/18/19 12:16 DC Piperacillin Sod/ Tazobactam Sod 3.375 gm/Sodium Chloride 50 ml @ 100 mls/hr Q6HRS 01/07/19 22:00 01/18/19 12:16 DC 01/18/19 05:54 100 MLS/HR Potassium Bicarbonate (Potassium Effervescent Tablet) 40 meq BIDWMEALS 01/10/19 09:00 01/11/19 09:20 DC 01/10/19 17:49 40 MEQ Potassium Chloride 15 meq/ Bicarbonate Dialysis Soln w/ out KCl 5,007.5 ml @ 1,200 mls/ hr Q4H11M 01/22/19 20:01 01/23/19 05:00 1,200 MLS/HR Potassium Chloride 20 meq/ Bicarbonate Dialysis Soln w/ out KCl 5,010 ml @ 1,200 mls/hr Q4H11M 01/15/19 19:00 01/17/19 15:00 DC 01/17/19 00:17 1,200 MLS/HR Potassium Chloride 20 meq/ Sodium Bicarbonate 40 meq/Bicarbonate Dialysis Soln w/ out KCl 5,050 ml @ 1,200 mls/hr Q4H13M 01/17/19 15:00 01/18/19 09:51 DC 01/18/19 06:01 1,200 MLS/HR Potassium Chloride/Sodium Chloride 1,000 ml @ 75 mls/hr 1X ONCE 01/07/19 21:30 01/08/19 10:49 DC 01/07/19 21:16 75 MLS/HR Potassium Phosphate 20 mmol/ Sodium Chloride 256.6667 ml @ 62.5 mls/hr 1X ONCE 01/22/19 06:30 01/22/19 10:36 DC 01/22/19 06:22 62.5 MLS/HR Potassium Phosphate 40 mmol/ Sodium Chloride 263.3333 ml @ 62.5 mls/hr 1X ONCE 01/21/19 21:45 01/22/19 01:57 DC 01/21/19 22:00 62.5 MLS/HR Potassium Chloride (Klor-Con) 40 meq 1X ONCE 01/09/19 09:45 01/09/19 09:46 DC 01/09/19 11:34 40 MEQ Propofol 100 ml @ 1.524 mls/ hr CONT PRN 01/08/19 09:45 01/14/19 03:56 9.147 MLS/HR Sodium Acetate 40 meq/Potassium Acetate 30 meq/ Calcium Gluconate 10 meq/ Multivitamins 10 ml/Chromium/ Copper/Manganese/ Seleni/Zn 1 ml/ Total Parenteral Nutrition/Amino Acids/Dextrose/ Fat Emulsion Intravenous 1,512 ml @ 63 mls/hr TPN CONT 01/13/19 22:00 01/14/19 21:59 DC 01/13/19 21:54 63 MLS/HR Sodium Bicarbonate (Sodium Bicarb Adult 8.4% Syr) 50 meq STK-MED ONCE 01/19/19 12:00 01/21/19 15:55 DC Sodium Chloride 30 meq/Sodium Acetate 40 meq/ Potassium Acetate 30 meq/Calcium Gluconate 10 meq/ Multivitamins 10 ml/Chromium/ Copper/Manganese/ Seleni/Zn 1 ml/ Total Parenteral Nutrition/Amino Acids/Dextrose/ Fat Emulsion Intravenous 1,512 ml @ 63 mls/hr TPN CONT 01/14/19 22:00 01/15/19 21:59 DC 01/15/19 00:05 63 MLS/HR Sodium Chloride 40 meq/Sodium Acetate 40 meq/ Calcium Gluconate 10 meq/ Multivitamins 10 ml/Chromium/ Copper/Manganese/ Seleni/Zn 1 ml/ Thiamine HCl 100 mg/Total Parenteral Nutrition/Amino Acids/Dextrose/ Fat Emulsion Intravenous 1,512 ml @ 63 mls/hr TPN CONT 01/15/19 22:00 01/16/19 21:59 DC 01/15/19 21:45 63 MLS/HR Sodium Chloride 40 meq/Sodium Acetate 40 meq/ Potassium Acetate 10 meq/Calcium Gluconate 10 meq/ Multivitamins 10 ml/Chromium/ Copper/Manganese/ Seleni/Zn 1 ml/ Thiamine HCl 100 mg/Total Parenteral Nutrition/Amino Acids/Dextrose/ Fat Emulsion Intravenous 1,512 ml @ 63 mls/hr TPN CONT 01/15/19 22:00 01/15/19 14:18 DC Sodium Chloride 40 meq/Sodium Acetate 40 meq/ Potassium Acetate 10 meq/Calcium Gluconate 10 meq/ Multivitamins 10 ml/Chromium/ Copper/Manganese/ Seleni/Zn 1 ml/ Total Parenteral Nutrition/Amino Acids/Dextrose/ Fat Emulsion Intravenous 1,512 ml @ 63 mls/hr TPN CONT 01/15/19 22:00 01/15/19 11:06 DC Sodium Chloride 60 meq/Sodium Acetate 40 meq/ Calcium Gluconate 10 meq/ Multivitamins 10 ml/Chromium/ Copper/Manganese/ Seleni/Zn 1 ml/ Thiamine HCl 100 mg/Total Parenteral Nutrition/Amino Acids/Dextrose/ Fat Emulsion Intravenous 1,512 ml @ 63 mls/hr TPN CONT 01/16/19 22:00 01/18/19 10:50 DC 01/16/19 22:00 63 MLS/HR Sodium Chloride 80 meq/Calcium Gluconate 10 meq/ Multivitamins 10 ml/Chromium/ Copper/Manganese/ Seleni/Zn 1 ml/ Thiamine HCl 100 mg/Total Parenteral Nutrition/Amino Acids/Dextrose/ Fat Emulsion Intravenous 1,200 ml @ 50 mls/hr TPN CONT 01/19/19 22:00 01/20/19 21:59 DC 01/19/19 21:30 50 MLS/HR Sodium Chloride 80 meq/Calcium Gluconate 20 meq/ Multivitamins 10 ml/Chromium/ Copper/Manganese/ Seleni/Zn 1 ml/ Thiamine HCl 100 mg/Total Parenteral Nutrition/Amino Acids/Dextrose/ Fat Emulsion Intravenous 1,200 ml @ 50 mls/hr TPN CONT 01/20/19 22:00 01/21/19 21:59 DC 01/20/19 21:43 50 MLS/HR Sodium Chloride 80 meq/Calcium Gluconate 25 meq/ Multivitamins 10 ml/Chromium/ Copper/Manganese/ Seleni/Zn 1 ml/ Thiamine HCl 100 mg/Total Parenteral Nutrition/Amino Acids/Dextrose/ Fat Emulsion Intravenous 1,512 ml @ 63 mls/hr TPN CONT 01/22/19 22:00 01/22/19 22:03 63 MLS/HR Sodium Phosphate 40 mmol/Dextrose 263.3333 ml @ 62.5 mls/hr 1X ONCE 01/21/19 09:00 01/21/19 13:13 DC 01/21/19 09:26 62.5 MLS/HR Succinylcholine Chloride (Anectine) 200 mg 1X ONCE 01/08/19 09:45 01/08/19 09:46 DC 01/08/19 09:41 200 MG Tramadol HCl (Ultram) 50 mg PRN Q6HRS PRN 01/08/19 09:15 Vancomycin HCl (Vanco Per Pharmacy) 1 each PRN DAILY PRN 01/07/19 21:00 01/08/19 06:39 DC 01/08/19 00:43 1 EACH Vancomycin HCl (Vancomycin Trough Level) 1 each 1X ONCE 01/09/19 09:30 01/09/19 09:31 Cancel Vancomycin HCl 1.5 gm/Sodium Chloride 500 ml @ 250 mls/hr Q12H 01/08/19 10:00 01/08/19 06:39 DC Vancomycin HCl 2 gm/Sodium Chloride 500 ml @ 250 mls/hr 1X ONCE 01/07/19 22:00 01/07/19 23:59 DC 01/07/19 22:11 250 MLS/HR Vasopressin 40 unit/Dextrose 102 ml @ 6 mls/hr CONT PRN 01/15/19 10:00 01/20/19 19:31 6 MLS/HR Vecuronium Howe (Norcuron Bolus) 6 mg PRN Q4HRS PRN 01/08/19 12:00 01/23/19 11:35 6 MG Lab Laboratory Tests Test 01/22/19 13:04 01/22/19 16:58 01/22/19 21:00 01/23/19 05:00 Hemoglobin 7.7 g/dL (13.0-17.5) 7.6 g/dL (13.0-17.5) Hematocrit 22.2 % (39.0-53.0) 22.7 % (39.0-53.0) Mean Corpuscular Hemoglobin Concent 35 g/dL (31-37) 34 g/dL (31-37) Sodium Level 141 mmol/L (136-145) 139 mmol/L (136-145) 139 mmol/L (136-145) Potassium Level 3.8 mmol/L (3.5-5.1) 4.0 mmol/L (3.5-5.1) 4.6 mmol/L (3.5-5.1) Chloride Level 102 mmol/L (98-107) 101 mmol/L (98-107) 101 mmol/L (98-107) Carbon Dioxide Level 25 mmol/L (21-32) 26 mmol/L (21-32) 23 mmol/L (21-32) Anion Gap 14 (6-14) 12 (6-14) 15 (6-14) Blood Urea Nitrogen 40 mg/dL (8-26) 40 mg/dL (8-26) 39 mg/dL (8-26) Creatinine 1.4 mg/dL (0.7-1.3) 1.4 mg/dL (0.7-1.3) 1.4 mg/dL (0.7-1.3) Estimated GFR (Cockcroft-Gault) 56.7 56.7 56.7 Glucose Level 114 mg/dL (70-99) 126 mg/dL (70-99) 125 mg/dL (70-99) Calcium Level 8.2 mg/dL (8.5-10.1) 8.5 mg/dL (8.5-10.1) 8.5 mg/dL (8.5-10.1) Phosphorus Level 2.3 mg/dL (2.6-4.7) 2.9 mg/dL (2.6-4.7) 4.5 mg/dL (2.6-4.7) Magnesium Level 1.8 mg/dL (1.8-2.4) 1.7 mg/dL (1.8-2.4) 2.8 mg/dL (1.8-2.4) Glucose (Fingerstick) 113 mg/dL (70-99) Lactic Acid Level 4.9 mmol/L (0.4-2.0) White Blood Count 33.7 x10^3/uL (4.0-11.0) Red Blood Count 2.35 x10^6/uL (4.30-5.70) Mean Corpuscular Volume 97 fL (79-100) Mean Corpuscular Hemoglobin 33 pg (25-35) Red Cell Distribution Width 18.4 % (11.5-14.5) Platelet Count 57 x10^3/uL (140-400) Neutrophils (%) (Auto) 72 % (31-73) Lymphocytes (%) (Auto) 19 % (24-48) Monocytes (%) (Auto) 8 % (0-9) Eosinophils (%) (Auto) 0 % (0-3) Basophils (%) (Auto) 1 % (0-3) Neutrophils # (Auto) 24.1 x10^3/uL (1.8-7.7) Lymphocytes # (Auto) 6.5 x10^3/uL (1.0-4.8) Monocytes # (Auto) 2.7 x10^3/uL (0.0-1.1) Eosinophils # (Auto) 0.1 x10^3/uL (0.0-0.7) Basophils # (Auto) 0.4 x10^3/uL (0.0-0.2) Segmented Neutrophils % 50 % (35-66) Band Neutrophils % 23 % (0-9) Lymphocytes % 15 % (24-48) Monocytes % 3 % (0-10) Myelocytes % 9 % (0-0) Nucleated Red Blood Cells 3 Toxic Granulation Present Toxic Vacuolation Present Platelet Estimate Decreased (ADEQUATE) Large Platelets Present Anisocytosis Slight Albumin 3.7 g/dL (3.4-5.0) Test 01/23/19 07:45 01/23/19 09:10 O2 Saturation 87 % (92-99) Arterial Blood pH 7.24 (7.35-7.45) Arterial Blood pH (Temp corrected) 7.24 Arterial Blood pCO2 at Patient Temp 49 mmHg (35-46) Arterial Blood pCO2 (Temp correct) 50 mmHg Arterial Blood pO2 at Patient Temp 63 mmHg (85-108) Arterial Blood pO2 (Temp corrected) 65 mmHg Arterial Blood HCO3 21 mmol/L (21-28) Arterial Blood Base Excess -6 mmol/L (-3-3) FiO2 100 Lactic Acid Level 5.7 mmol/L (0.4-2.0) Results All relevant outside records, renal labs, imaging studies, telemetry/EKG's were reviewed. GIANNI HAY MD Jan 23, 2019 12:17
--- NOTE | 2019-01-23 13:18 | PDOC ---
PROGRESS NOTES Subjective Subjective HPI -f/u of Thrombocytopenia: ROS - no bleed Objective Objective Vital Signs Date Time Temp Pulse Resp B/P (MAP) Pulse Ox O2 Delivery O2 Flow Rate FiO2 01/23/19 12:32 96 Ventilator 01/23/19 08:29 101 25 115/50 (71) 01/23/19 07:00 99.2 99.2 01/20/19 15:39 2.0 Intake and Output 01/23/19 07:00 Intake Total 4694.81 ml Output Total 320 ml Balance 4374.81 ml IV Total 4574.81 ml Other 120 ml Output Urine Total 0 ml Gastric Drainage Total 320 ml Physical Exam General: No acute distress Assessment Assessment Problems Medical Problems: (1) Acute hepatic encephalopathy Status: Acute (2) Acute upper GI bleed Status: Acute (3) Ascites Status: Acute (4) Hypokalemia Status: Acute (5) Multiple organ system failure Status: Acute (6) Severe sepsis with acute organ dysfunction Status: Acute A/P: He is a 38-year-old man with alcoholic liver disease and multiorgan failure 1. Hematemesis: Not actively bleeding, some bloody sputum coming from suction ET tube but other than fecal occult blood test positive no obvious bleeding, GI has done EGD recently, on PPI 2. Thrombocytopenia: With fibrinogen greater than 100 would hold off on further blood products (cryo) or vitamin K w/ elev INR until PF4 is resulted as his platelet count had been normal a few days ago, bilateral lower extremity ultrasounds neg, reassuring, for now anticoagulation is not being given with thrombocytopenia and the recent hematemesis and fecal occult blood test p ositivity, PTT nl and no inc in schistocytes on review of peripheral smear. I d/w Dr Oliveira, comfort care planned. Pls call if needed 3. . Anemia. Comment Review of Relevant I have reviewed the following items karen (where applicable) has been applied. Labs Laboratory Tests Test 01/21/19 15:30 01/21/19 16:50 01/21/19 20:55 01/22/19 05:00 Hemoglobin 7.9 g/dL (13.0-17.5) 7.7 g/dL (13.0-17.5) Hematocrit 23.1 % (39.0-53.0) 21.7 % (39.0-53.0) Mean Corpuscular Hemoglobin Concent 34 g/dL (31-37) 35 g/dL (31-37) Phosphorus Level 2.5 mg/dL (2.6-4.7) 1.5 mg/dL (2.6-4.7) 2.3 mg/dL (2.6-4.7) Magnesium Level 1.7 mg/dL (1.8-2.4) 2.0 mg/dL (1.8-2.4) 1.8 mg/dL (1.8-2.4) Glucose (Fingerstick) 137 mg/dL (70-99) Sodium Level 140 mmol/L (136-145) 139 mmol/L (136-145) Potassium Level 3.6 mmol/L (3.5-5.1) 3.8 mmol/L (3.5-5.1) Chloride Level 101 mmol/L (98-107) 101 mmol/L (98-107) Carbon Dioxide Level 28 mmol/L (21-32) 25 mmol/L (21-32) Anion Gap 11 (6-14) 13 (6-14) Blood Urea Nitrogen 41 mg/dL (8-26) 40 mg/dL (8-26) Creatinine 1.3 mg/dL (0.7-1.3) 1.3 mg/dL (0.7-1.3) Estimated GFR (Cockcroft-Gault) 61.8 61.8 Glucose Level 131 mg/dL (70-99) 120 mg/dL (70-99) Lactic Acid Level 3.9 mmol/L (0.4-2.0) Calcium Level 8.0 mg/dL (8.5-10.1) 8.4 mg/dL (8.5-10.1) White Blood Count 15.9 x10^3/uL (4.0-11.0) Red Blood Count 2.35 x10^6/uL (4.30-5.70) Mean Corpuscular Volume 92 fL (79-100) Mean Corpuscular Hemoglobin 33 pg (25-35) Red Cell Distribution Width 17.9 % (11.5-14.5) Platelet Count 44 x10^3/uL (140-400) Neutrophils (%) (Auto) 75 % (31-73) Lymphocytes (%) (Auto) 17 % (24-48) Monocytes (%) (Auto) 7 % (0-9) Eosinophils (%) (Auto) 0 % (0-3) Basophils (%) (Auto) 0 % (0-3) Neutrophils # (Auto) 11.9 x10^3/uL (1.8-7.7) Lymphocytes # (Auto) 2.7 x10^3/uL (1.0-4.8) Monocytes # (Auto) 1.2 x10^3/uL (0.0-1.1) Eosinophils # (Auto) 0.0 x10^3/uL (0.0-0.7) Basophils # (Auto) 0.1 x10^3/uL (0.0-0.2) BUN/Creatinine Ratio 31 (6-20) Total Bilirubin 21.5 mg/dL (0.2-1.0) Aspartate Amino Transf (AST/SGOT) 192 U/L (15-37) Alanine Aminotransferase (ALT/SGPT) 62 U/L (16-63) Alkaline Phosphatase 281 U/L (46-116) Total Protein 6.0 g/dL (6.4-8.2) Albumin 3.7 g/dL (3.4-5.0) Albumin/Globulin Ratio 1.6 (1.0-1.7) Triglycerides Level 175 mg/dL (0-150) Test 01/22/19 08:00 01/22/19 09:15 01/22/19 12:13 01/22/19 13:04 O2 Saturation 96 % (92-99) Arterial Blood pH 7.45 (7.35-7.45) Arterial Blood pCO2 at Patient Temp 33 mmHg (35-46) Arterial Blood pO2 at Patient Temp 87 mmHg (85-108) Arterial Blood HCO3 22 mmol/L (21-28) Arterial Blood Base Excess -2 mmol/L (-3-3) FiO2 100 Lactic Acid Level 4.0 mmol/L (0.4-2.0) Glucose (Fingerstick) 112 mg/dL (70-99) Hemoglobin 7.7 g/dL (13.0-17.5) Hematocrit 22.2 % (39.0-53.0) Mean Corpuscular Hemoglobin Concent 35 g/dL (31-37) Sodium Level 141 mmol/L (136-145) Potassium Level 3.8 mmol/L (3.5-5.1) Chloride Level 102 mmol/L (98-107) Carbon Dioxide Level 25 mmol/L (21-32) Anion Gap 14 (6-14) Blood Urea Nitrogen 40 mg/dL (8-26) Creatinine 1.4 mg/dL (0.7-1.3) Estimated GFR (Cockcroft-Gault) 56.7 Glucose Level 114 mg/dL (70-99) Calcium Level 8.2 mg/dL (8.5-10.1) Phosphorus Level 2.3 mg/dL (2.6-4.7) Magnesium Level 1.8 mg/dL (1.8-2.4) Test 01/22/19 16:58 01/22/19 21:00 01/23/19 05:00 01/23/19 07:45 Glucose (Fingerstick) 113 mg/dL (70-99) Sodium Level 139 mmol/L (136-145) 139 mmol/L (136-145) Potassium Level 4.0 mmol/L (3.5-5.1) 4.6 mmol/L (3.5-5.1) Chloride Level 101 mmol/L (98-107) 101 mmol/L (98-107) Carbon Dioxide Level 26 mmol/L (21-32) 23 mmol/L (21-32) Anion Gap 12 (6-14) 15 (6-14) Blood Urea Nitrogen 40 mg/dL (8-26) 39 mg/dL (8-26) Creatinine 1.4 mg/dL (0.7-1.3) 1.4 mg/dL (0.7-1.3) Estimated GFR (Cockcroft-Gault) 56.7 56.7 Glucose Level 126 mg/dL (70-99) 125 mg/dL (70-99) Lactic Acid Level 4.9 mmol/L (0.4-2.0) Calcium Level 8.5 mg/dL (8.5-10.1) 8.5 mg/dL (8.5-10.1) Phosphorus Level 2.9 mg/dL (2.6-4.7) 4.5 mg/dL (2.6-4.7) Magnesium Level 1.7 mg/dL (1.8-2.4) 2.8 mg/dL (1.8-2.4) White Blood Count 33.7 x10^3/uL (4.0-11.0) Red Blood Count 2.35 x10^6/uL (4.30-5.70) Hemoglobin 7.6 g/dL (13.0-17.5) Hematocrit 22.7 % (39.0-53.0) Mean Corpuscular Volume 97 fL (79-100) Mean Corpuscular Hemoglobin 33 pg (25-35) Mean Corpuscular Hemoglobin Concent 34 g/dL (31-37) Red Cell Distribution Width 18.4 % (11.5-14.5) Platelet Count 57 x10^3/uL (140-400) Neutrophils (%) (Auto) 72 % (31-73) Lymphocytes (%) (Auto) 19 % (24-48) Monocytes (%) (Auto) 8 % (0-9) Eosinophils (%) (Auto) 0 % (0-3) Basophils (%) (Auto) 1 % (0-3) Neutrophils # (Auto) 24.1 x10^3/uL (1.8-7.7) Lymphocytes # (Auto) 6.5 x10^3/uL (1.0-4.8) Monocytes # (Auto) 2.7 x10^3/uL (0.0-1.1) Eosinophils # (Auto) 0.1 x10^3/uL (0.0-0.7) Basophils # (Auto) 0.4 x10^3/uL (0.0-0.2) Segmented Neutrophils % 50 % (35-66) Band Neutrophils % 23 % (0-9) Lymphocytes % 15 % (24-48) Monocytes % 3 % (0-10) Myelocytes % 9 % (0-0) Nucleated Red Blood Cells 3 Toxic Granulation Present Toxic Vacuolation Present Platelet Estimate Decreased (ADEQUATE) Large Platelets Present Anisocytosis Slight Albumin 3.7 g/dL (3.4-5.0) O2 Saturation 87 % (92-99) Arterial Blood pH 7.24 (7.35-7.45) Arterial Blood pH (Temp corrected) 7.24 Arterial Blood pCO2 at Patient Temp 49 mmHg (35-46) Arterial Blood pCO2 (Temp correct) 50 mmHg Arterial Blood pO2 at Patient Temp 63 mmHg (85-108) Arterial Blood pO2 (Temp corrected) 65 mmHg Arterial Blood HCO3 21 mmol/L (21-28) Arterial Blood Base Excess -6 mmol/L (-3-3) FiO2 100 Test 01/23/19 09:10 Lactic Acid Level 5.7 mmol/L (0.4-2.0) Laboratory Tests Test 01/22/19 16:58 01/22/19 21:00 01/23/19 05:00 01/23/19 07:45 Glucose (Fingerstick) 113 mg/dL (70-99) Sodium Level 139 mmol/L (136-145) 139 mmol/L (136-145) Potassium Level 4.0 mmol/L (3.5-5.1) 4.6 mmol/L (3.5-5.1) Chloride Level 101 mmol/L (98-107) 101 mmol/L (98-107) Carbon Dioxide Level 26 mmol/L (21-32) 23 mmol/L (21-32) Anion Gap 12 (6-14) 15 (6-14) Blood Urea Nitrogen 40 mg/dL (8-26) 39 mg/dL (8-26) Creatinine 1.4 mg/dL (0.7-1.3) 1.4 mg/dL (0.7-1.3) Estimated GFR (Cockcroft-Gault) 56.7 56.7 Glucose Level 126 mg/dL (70-99) 125 mg/dL (70-99) Lactic Acid Level 4.9 mmol/L (0.4-2.0) Calcium Level 8.5 mg/dL (8.5-10.1) 8.5 mg/dL (8.5-10.1) Phosphorus Level 2.9 mg/dL (2.6-4.7) 4.5 mg/dL (2.6-4.7) Magnesium Level 1.7 mg/dL (1.8-2.4) 2.8 mg/dL (1.8-2.4) White Blood Count 33.7 x10^3/uL (4.0-11.0) Red Blood Count 2.35 x10^6/uL (4.30-5.70) Hemoglobin 7.6 g/dL (13.0-17.5) Hematocrit 22.7 % (39.0-53.0) Mean Corpuscular Volume 97 fL (79-100) Mean Corpuscular Hemoglobin 33 pg (25-35) Mean Corpuscular Hemoglobin Concent 34 g/dL (31-37) Red Cell Distribution Width 18.4 % (11.5-14.5) Platelet Count 57 x10^3/uL (140-400) Neutrophils (%) (Auto) 72 % (31-73) Lymphocytes (%) (Auto) 19 % (24-48) Monocytes (%) (Auto) 8 % (0-9) Eosinophils (%) (Auto) 0 % (0-3) Basophils (%) (Auto) 1 % (0-3) Neutrophils # (Auto) 24.1 x10^3/uL (1.8-7.7) Lymphocytes # (Auto) 6.5 x10^3/uL (1.0-4.8) Monocytes # (Auto) 2.7 x10^3/uL (0.0-1.1) Eosinophils # (Auto) 0.1 x10^3/uL (0.0-0.7) Basophils # (Auto) 0.4 x10^3/uL (0.0-0.2) Segmented Neutrophils % 50 % (35-66) Band Neutrophils % 23 % (0-9) Lymphocytes % 15 % (24-48) Monocytes % 3 % (0-10) Myelocytes % 9 % (0-0) Nucleated Red Blood Cells 3 Toxic Granulation Present Toxic Vacuolation Present Platelet Estimate Decreased (ADEQUATE) Large Platelets Present Anisocytosis Slight Albumin 3.7 g/dL (3.4-5.0) O2 Saturation 87 % (92-99) Arterial Blood pH 7.24 (7.35-7.45) Arterial Blood pH (Temp corrected) 7.24 Arterial Blood pCO2 at Patient Temp 49 mmHg (35-46) Arterial Blood pCO2 (Temp correct) 50 mmHg Arterial Blood pO2 at Patient Temp 63 mmHg (85-108) Arterial Blood pO2 (Temp corrected) 65 mmHg Arterial Blood HCO3 21 mmol/L (21-28) Arterial Blood Base Excess -6 mmol/L (-3-3) FiO2 100 Test 01/23/19 09:10 Lactic Acid Level 5.7 mmol/L (0.4-2.0) Microbiology 01/22/19 Blood Culture - Preliminary, Resulted NO GROWTH AFTER 1 DAY 01/15/19 - Final, Complete 01/15/19 - Final, Complete 01/15/19 - Final, Complete 01/15/19 Gram Stain Evaluation - Final, Complete 01/15/19 Sputum Culture - Final, Complete 01/15/19 Sputum Result 1 - Final, Complete 01/08/19 Urine Culture - Final, Complete 01/08/19 Urine Culture Result 1 (ELMA) - Final, Complete Medications Current Medications Sodium Chloride 1,000 ml @ 1,000 mls/hr 1X ONCE IV Last administered on 01/07/19at 19:27; Start 01/07/19 at 19:30; Stop 01/07/19 at 20:29; Status DC Ondansetron HCl (Zofran) 4 mg 1X ONCE IV Last administered on 01/07/19at 19: 28; Start 01/07/19 at 19:30; Stop 01/07/19 at 19:31; Status DC Pantoprazole Sodium (PROTONIX VIAL for IV PUSH) 80 mg 1X ONCE IVP Last administered on 01/07/19at 19:50; Start 01/07/19 at 20:00; Stop 01/07/19 at 20:01; Status DC Pantoprazole Sodium 80 mg/ Sodium Chloride 100 ml @ 10 mls/hr 1X ONCE IV Last administered on 01/07/19at 20:00; Start 01/07/19 at 20:00; Stop 01/08/19 at 05:59; Status DC Sodium Chloride 1,000 ml @ 1,000 mls/hr 1X ONCE IV Last administered on 01/07/19at 22:12; Start 01/07/19 at 21:00; Stop 01/07/19 at 21:59; Status DC Sodium Chloride 1,000 ml @ 1,000 mls/hr 1X ONCE IV Last administered on 01/07/19at 20:40; Start 01/07/19 at 20:45; Stop 01/07/19 at 21:44; Status DC Potassium Chloride/Sodium Chloride 1,000 ml @ 75 mls/hr 1X ONCE IV Last administered on 01/07/19at 21:16; Start 01/07/19 at 21:30; Stop 01/08/19 at 10:49; Status DC Vancomycin HCl (Vanco Per Pharmacy) 1 each PRN DAILY PRN MC SEE COMMENTS Last administered on 01/08/19at 00:43; Start 01/07/19 at 21:00; Stop 01/08/19 at 06:39; Status DC Piperacillin Sod/ Tazobactam Sod (Zosyn Per Pharmacy) 1 each PRN DAILY PRN MC SEE COMMENTS; Start 01/07/19 at 21:00; Stop 01/18/19 at 12:16; Status DC Piperacillin Sod/ Tazobactam Sod 3.375 gm/Sodium Chloride 50 ml @ 100 mls/hr Q6HRS IV Last administered on 01/18/19at 05:54; Start 01/07/19 at 22:00; Stop 01/18/19 at 12:16; Status DC Vancomycin HCl 2 gm/Sodium Chloride 500 ml @ 250 mls/hr 1X ONCE IV Last administered on 01/07/19at 22:11; Start 01/07/19 at 22:00; Stop 01/07/19 at 23:59; Status DC Lorazepam (Ativan Inj) 1 mg 1X ONCE IV Last administered on 01/07/19at 23:22; Start 01/07/19 at 23:30; Stop 01/07/19 at 23:31; Status DC Lorazepam (Ativan Inj) 2 mg STK-MED ONCE .ROUTE ; Start 01/07/19 at 23:20; Stop 01/07/19 at 23:21; Status DC Vancomycin HCl 1.5 gm/Sodium Chloride 500 ml @ 250 mls/hr Q12H IV ; Start 01/08/19 at 10:00; Stop 01/08/19 at 06:39; Status DC Vancomycin HCl (Vancomycin Trough Level) 1 each 1X ONCE MC ; Start 01/09/19 at 09:30; Stop 01/09/19 at 09:31; Status Cancel Ondansetron HCl (Zofran) 4 mg PRN Q6HRS PRN IVP NAUSEA/VOMITING; Start 01/08/19 at 04:00; Status Cancel Pantoprazole Sodium 80 mg/ Sodium Chloride 100 ml @ 10 mls/hr Q10H IV Last administered on 01/09/19at 02:00; Start 01/08/19 at 06:00; Stop 01/09/19 at 11:00; Status DC Multivitamins 10 ml/Thiamine HCl 100 mg/Folic Acid 1 mg/Sodium Chloride 1,011.2 ml @ 100 mls/ hr DAILY IV Last administered on 01/12/19at 10:29; Start 01/08/19 at 09:00; Stop 01/12/19 at 19:07; Status DC Lorazepam (Ativan Inj) 2 mg PRN Q1HR PRN IV For CIWA 8-14 Last administered on 01/14/19at 21:01; Start 01/08/19 at 07:15 Lorazepam (Ativan Inj) 4 mg PRN Q1HR PRN IV For CIWA 15 or greater Last administered on 01/15/19at 08:40; Start 01/08/19 at 07:15 Haloperidol Lactate (Haldol Inj) 5 mg PRN Q4HRS PRN IVP Hallucinatns,Confusn,Delirium; Start 01/08/19 at 07:15 Diphenhydramine HCl (Benadryl) 25 mg PRN Q15MIN PRN IVP EPS symptoms 2'Haldol admin; Start 01/08/19 at 07:15 Clonidine HCl (Catapres) 0.1 mg PRN Q1HR PRN PO SBP > 180 or DBP > 100, MRX3; Start 01/08/19 at 07:15 Sodium Bicarbonate (Sodium Bicarb Adult 8.4% Syr) 50 meq 1X ONCE IV Last administered on 01/08/19at 08:04; Start 01/08/19 at 08:00; Stop 01/08/19 at 08:01; Status DC Propofol 100 ml @ As Directed STK-MED ONCE IV ; Start 01/08/19 at 08:19; Stop 01/08/19 at 08:19; Status DC Succinylcholine Chloride (Anectine) 200 mg STK-MED ONCE .ROUTE ; Start 01/08/19 at 08:19; Stop 01/08/19 at 08:19; Status DC Propofol 100 ml @ As Directed STK-MED ONCE IV ; Start 01/08/19 at 08:29; Stop 01/08/19 at 08:30; Status DC Fentanyl Citrate 30 ml @ 0 mls/hr CONT PRN PRN IV PER PROTOCOL Last administered on 01/23/19at 12:04; Start 01/08/19 at 09:00 Naloxone HCl (Narcan) 0.4 mg PRN Q2MIN PRN IV SEE INSTRUCTIONS; Start 01/08/19 at 09:00 Sodium Chloride 1,000 ml @ 25 mls/hr Q24H IV Last administered on 01/22/19at 08:54; Start 01/08/19 at 08:54 Fentanyl Citrate (Fentanyl 2ml Vial) 100 mcg STK-MED ONCE .ROUTE ; Start 01/08/19 at 08:55; Stop 01/08/19 at 08:55; Status DC Octreotide Acetate 500 mcg/ Sodium Chloride 101 ml @ 0 mls/hr CONT PRN IV SEE I/O RECORD Last administered on 01/08/19at 13:56; Start 01/08/19 at 09:00; Stop 01/08/19 at 16:55; Status DC Phytonadione (Vitamin K Ampule) 10 mg 1X ONCE SQ Last administered on 01/08/19at 09:56; Start 01/08/19 at 09:15; Stop 01/08/19 at 09:16; Status DC Metoclopramide HCl (Reglan Vial) 10 mg 1X ONCE IVP Last administered on 01/08/19at 14:36; Start 01/08/19 at 11:00; Stop 01/08/19 at 11:01; Status DC Midazolam HCl (Versed) 5 mg STK-MED ONCE .ROUTE ; Start 01/08/19 at 09:00; Stop 01/08/19 at 09:01; Status DC Acetaminophen (Tylenol) 500 mg PRN Q6HRS PRN PO MILD PAIN / TEMP Last administered on 01/11/19at 17:46; Start 01/08/19 at 09:15; Stop 01/13/19 at 09:11; Status DC Tramadol HCl (Ultram) 50 mg PRN Q6HRS PRN PO PAIN MODERATE; Start 01/08/19 at 09:15 Morphine Sulfate (Morphine Sulfate) 2 mg PRN Q2HR PRN IV PAIN; Start 01/08/19 at 09:15 Ondansetron HCl (Zofran) 4 mg PRN Q6HRS PRN IVP NAUSEA/VOMITING, 1ST CHOICE; Start 01/08/19 at 09:15 Fentanyl Citrate (Fentanyl 2ml Vial) 100 mcg 1X ONCE IVP Last administered on 01/08/19at 09:42; Start 01/08/19 at 09:45; Stop 01/08/19 at 09:46; Status DC Midazolam HCl (Versed) 5 mg 1X ONCE IV Last administered on 01/08/19 09:41; Start 01/08/19 at 09:45; Stop 01/08/19 at 09:46; Status DC Succinylcholine Chloride (Anectine) 200 mg 1X ONCE IV Last administered on 01/08/19 09:41; Start 01/08/19 at 09:45; Stop 01/08/19 at 09:46; Status DC Propofol 100 ml @ 1.524 mls/ hr CONT PRN IV SEE I/O RECORD Last administered on 01/14/19at 03:56; Start 01/08/19 at 09:45 Midazolam HCl 100 ml @ 5 mls/hr CONT PRN IV SEE I/O RECORD Last administered on 01/23/19 07:36; Start 01/08/19 at 11:15 Vecuronium [place] (Norcuron Bolus) 6 mg PRN Q4HRS PRN IV VENT ASYNCHRONY Last administered on 01/23/19 11:35; Start 01/08/19 at 12:00 Benzocaine (Hurricaine One) 2 spray STK-MED ONCE .ROUTE ; Start 01/07/19 at 12:00; Stop 01/08/19 at 14:20; Status DC Lidocaine HCl (Xylocaine 2% Topical 5gm Tube) 5 amanda STK-MED ONCE TP ; Start 01/07/19 at 12:00; Stop 01/08/19 at 14:20; Status DC Lactobacillus Rhamnosus (Culturelle) 1 cap BID PO ; Start 01/08/19 at 21:00; Stop 01/09/19 at 09:29; Status DC Acetaminophen (Tylenol Supp) 650 mg PRN Q6HRS PRN [place] MILD PAIN / TEMP Last administered on 01/09/19at 23:44; Start 01/08/19 at 18:15 Norepinephrine Bitartrate 250 ml @ 18.938 mls/ hr CONT PRN IV SEE I/O RECORD Last administered on 01/19/19 06:31; Start 01/09/19 at 01:45; Stop 01/19/19 at 11:30; Status DC Potassium Chloride (Klor-Con) 40 meq 1X ONCE PO Last administered on 01/09/19at 11:34; Start 01/09/19 at 09:45; Stop 01/09/19 at 09:46; Status DC Metoclopramide HCl (Reglan Vial) 10 mg PRN Q6HRS PRN IVP NAUSEA/VOMITING, 2ND CHOICE Last administered on 01/14/19at 21:01; Start 01/09/19 at 10:15 Albumin Human 100 ml @ 100 mls/hr 1X ONCE IV Last administered on 01/09/19at 10:49; Start 01/09/19 at 10:15; Stop 01/09/19 at 11:14; Status DC Lactulose (LACTULOSE 300ML for RECTAL) 200 gm Q6HRS [place] ; Start 01/09/19 at 12:00; Stop 01/09/19 at 11:04; Status DC Insulin Human Lispro (HumaLOG) 0-9 UNITS TIDWMEALS SQ Last administered on 01/21/19at 08:00; Start 01/09/19 at 12:00 Dextrose (Dextrose 50%-Water Syringe) 12.5 gm PRN Q15MIN PRN IV SEE COMMENTS Last administered on 01/18/19at 22:35; Start 01/09/19 at 10:30 Fentanyl Citrate (Fentanyl 600 Mcg/30 ml [employer]ING [employer]GER) 600 mcg STK-MED ONCE IV ; Start 01/08/19 at 15:25; Stop 01/09/19 at 10:27; Status DC Pantoprazole Sodium (PROTONIX VIAL for IV PUSH) 40 mg DAILYAC IVP Last administered on 01/23/19at 09:40; Start 01/10/19 at 07:30 Lactulose (Lactulose) 20 gm DAILY PO Last administered on 01/12/19 08:24; Start 01/09/19 at 11:30; Stop 01/12/19 at 10:12; Status DC Potassium Bicarbonate (Potassium Effervescent Tablet) 40 meq BIDWMEALS FT Last administered on 01/10/19at 17:49; Start 01/10/19 at 09:00; Stop 01/11/19 at 09:20; Status DC Linezolid/Dextrose 300 ml @ 300 mls/hr Q12HR IV Last administered on 01/16/19at 08:26; Start 01/11/19 at 13:00; Stop 01/16/19 at 08:29; Status DC Perflutren Protein Type A Microsphe (Optison) 0.66 mg 1X ONCE IV ; Start 01/11/19 at 13:30; Stop 01/11/19 at 13:31; Status DC Albumin Human 100 ml @ 100 mls/hr 1X ONCE IV Last administered on 01/12/19at 08:25; Start 01/12/19 at 07:45; Stop 01/12/19 at 08:44; Status DC Lactulose (Lactulose) 20 gm PRN DAILY PRN PO constipation; Start 01/12/19 at 10:15; Stop 01/13/19 at 09:11; Status DC Acetaminophen (Tylenol) 650 mg PRN Q6HRS PRN PEG MILD PAIN / TEMP Last administered on 01/14/19at 09:11; Start 01/12/19 at 16:30 Lactulose (Lactulose) 20 gm TID PO Last administered on 01/14/19at 21:01; Start 01/13/19 at 10:00 Albumin Human 500 ml @ 125 mls/hr 1X ONCE IV Last administered on 01/13/19at 09:40; Start 01/13/19 at 10:00; Stop 01/13/19 at 13:59; Status DC Bisacodyl (Dulcolax Supp) 10 mg 1X ONCE [place] Last administered on 01/13/19at 10:14; Start 01/13/19 at 11:00; Stop 01/13/19 at 11:01; Status DC Lidocaine HCl (Buffered Lidocaine 1%) 3 ml 1X ONCE INJ Last administered on 01/13/19at 11:00; Start 01/13/19 at 11:00; Stop 01/13/19 at 11:01; Status DC Heparin Sodium (Porcine) (Heparin Sodium) 10,000 unit STK-MED ONCE .ROUTE ; Start 01/13/19 at 10:59; Stop 01/13/19 at 11:00; Status DC Darbepoetin Giorgi (ARANESP for DIALYSIS PTS) 60 mcg WEEKLYHS SQ Last administered on 01/20/19at 21:43; Start 01/13/19 at 21:00 Info (Tpn Per Pharmacy) 1 each PRN DAILY PRN MC SEE COMMENTS Last administered on 01/22/19at 11:27; Start 01/13/19 at 11:15 Sodium Chloride 1,000 ml @ 1,000 mls/hr Q1H PRN IV hypotension; Start 01/13/19 at 11:30; Stop 01/13/19 at 19:00; Status DC Albumin Human 200 ml @ 200 mls/hr 1X PRN PRN IV Hypotension; Start 01/13/19 at 11:30; Stop 01/13/19 at 17:29; Status DC Sodium Chloride 1,000 ml @ 400 mls/hr Q2H30M PRN IV PATENCY; Start 01/13/19 at 11:30; Stop 01/13/19 at 19:00; Status DC Info (PHARMACY MONITORING -- do not chart) 1 each PRN DAILY PRN MC SEE COMMENTS; Start 01/13/19 at 11:30 Info (PHARMACY MONITORING -- do not chart) 1 each PRN DAILY PRN MC SEE COMMENTS; Start 01/13/19 at 11:30; Status UNV Sodium Acetate 40 meq/Potassium Acetate 30 meq/ Calcium Gluconate 10 meq/ Multivitamins 10 ml/Chromium/ Copper/Manganese/ Seleni/Zn 1 ml/ Total Parenteral Nutrition/Amino Acids/Dextrose/ Fat Emulsion Intravenous 1,512 ml @ 63 mls/hr TPN CONT IV Last administered on 01/13/19at 21:54; Start 01/13/19 at 22:00; Stop 01/14/19 at 21:59; Status DC Multi-Ingred Cream/Lotion/Oil/ Oint (Artificial Tears Eye Ointment) 1 amanda PRN Q1HR PRN OU DRY EYE Last administered on 01/13/19at 17:14; Start 01/13/19 at 16:45 Docusate Sodium (Enemeez) 283 mg 1X ONCE [place] Last administered on 01/13/19at 17:14; Start 01/13/19 at 16:45; Stop 01/13/19 at 16:47; Status DC Levofloxacin/ Dextrose 100 ml @ 100 mls/hr Q24H IV Last administered on 01/23/19at 09:37; Start 01/14/19 at 09:00 Metoclopramide HCl (Reglan Vial) 5 mg 1X ONCE IVP Last administered on 01/14/19at 10:51; Start 01/14/19 at 10:30; Stop 01/14/19 at 10:31; Status DC Dexmedetomidine HCl 400 mcg/ Sodium Chloride 100 ml @ 0 mls/hr CONT PRN IV AGITATION Last administered on 01/23/19at 06:15; Start 01/14/19 at 11:30 Sodium Chloride 1,000 ml @ 1,000 mls/hr Q1H PRN IV hypotension; Start 01/14/19 at 11:26; Stop 01/14/19 at 17:25; Status DC Albumin Human 200 ml @ 200 mls/hr 1X PRN PRN IV Hypotension; Start 01/14/19 at 11:30; Stop 01/14/19 at 17:29; Status DC Sodium Chloride 1,000 ml @ 400 mls/hr Q2H30M PRN IV PATENCY; Start 01/14/19 at 11:26; Stop 01/14/19 at 23:25; Status DC Info (PHARMACY MONITORING -- do not chart) 1 each PRN DAILY PRN MC SEE COMMENTS; Start 01/14/19 at 11:30; Status UNV Info (PHARMACY MONITORING -- do not chart) 1 each PRN DAILY PRN MC SEE COMMENTS; Start 01/14/19 at 11:30; Status UNV Sodium Chloride 30 meq/Sodium Acetate 40 meq/ Potassium Acetate 30 meq/Calcium Gluconate 10 meq/ Multivitamins 10 ml/Chromium/ Copper/Manganese/ Seleni/Zn 1 ml/ Total Parenteral Nutrition/Amino Acids/Dextrose/ Fat Emulsion Intravenous 1,512 ml @ 63 mls/hr TPN CONT IV Last administered on 01/15/19at 00:05; Start 01/14/19 at 22:00; Stop 01/15/19 at 21:59; Status DC Artificial Tears (Artificial Tears) 1 drop Q4H PRN OU DRY EYE Last administered on 01/14/19at 16:43; Start 01/14/19 at 15:30 Sodium Bicarbonate (Sodium Bicarb Adult 8.4% Syr) 50 meq STK-MED ONCE .ROUTE ; Start 01/15/19 at 08:25; Stop 01/15/19 at 08:25; Status DC Sodium Bicarbonate (Sodium Bicarb Adult 8.4% Syr) 100 meq 1X ONCE IV Last administered on 01/15/19at 08:31; Start 01/15/19 at 08:30; Stop 01/15/19 at 08:31; Status DC Sodium Chloride 40 meq/Sodium Acetate 40 meq/ Potassium Acetate 10 meq/Calcium Gluconate 10 meq/ Multivitamins 10 ml/Chromium/ Copper/Manganese/ Seleni/Zn 1 ml/ Total Parenteral Nutrition/Amino Acids/Dextrose/ Fat Emulsion Intravenous 1,512 ml @ 63 mls/hr TPN CONT IV ; Start 01/15/19 at 22:00; Stop 01/15/19 at 11:06; Status DC Vasopressin 40 unit/Dextrose 102 ml @ 6 mls/hr CONT PRN IV SEE I/O RECORD Last administered on 01/20/19at 19:31; Start 01/15/19 at 10:00 Sodium Chloride 1,000 ml @ 1,000 mls/hr Q1H PRN IV hypotension; Start 01/15/19 at 10:00; Stop 01/15/19 at 15:59; Status DC Albumin Human 200 ml @ 200 mls/hr 1X PRN PRN IV Hypotension Last administered on 01/15/19at 11:07; Start 01/15/19 at 10:00; Stop 01/15/19 at 15:59; Status DC Sodium Chloride 1,000 ml @ 400 mls/hr Q2H30M PRN IV PATENCY; Start 01/15/19 at 10:00; Stop 01/15/19 at 21:59; Status DC Info (PHARMACY MONITORING -- do not chart) 1 each PRN DAILY PRN MC SEE AMBER TS; Start 01/15/19 at 10:00; Stop 01/15/19 at 10:57; Status DC Info (PHARMACY MONITORING -- do not chart) 1 each PRN DAILY PRN MC SEE COMMENTS; Start 01/15/19 at 10:00; Stop 01/15/19 at 10:57; Status DC Sodium Chloride 40 meq/Sodium Acetate 40 meq/ Potassium Acetate 10 meq/Calcium Gluconate 10 meq/ Multivitamins 10 ml/Chromium/ Copper/Manganese/ Seleni/Zn 1 ml/ Thiamine HCl 100 mg/Total Parenteral Nutrition/Amino Acids/Dextrose/ Fat Emulsion Intravenous 1,512 ml @ 63 mls/hr TPN CONT IV ; Start 01/15/19 at 22:00; Stop 01/15/19 at 14:18; Status DC Potassium Chloride 20 meq/ Bicarbonate Dialysis Soln w/ out KCl 5,010 ml @ 1,000 mls/hr Q5H1M IV Last administered on 01/15/19at 15:40; Start 01/15/19 at 14:00; Stop 01/15/19 at 19:00; Status DC Potassium Chloride 20 meq/ Bicarbonate Dialysis Soln w/ out KCl 5,010 ml @ 1,000 mls/hr Q5H1M IV Last administered on 01/15/19at 15:50; Start 01/15/19 at 14:00; Stop 01/15/19 at 19:00; Status DC Potassium Chloride 20 meq/ Bicarbonate Dialysis Soln w/ out KCl 5,010 ml @ 1,000 mls/hr Q5H1M IV Last administered on 01/15/19at 15:50; Start 01/15/19 at 14:00; Stop 01/15/19 at 19:00; Status DC Albumin Human 100 ml @ 100 mls/hr Q6HRS IV Last administered on 01/23/19at 11:51; Start 01/15/19 at 14:00 Potassium Phosphate 20 mmol/ Sodium Chloride 256.6667 ml @ 128.... PRN Q6HRS PRN IV FOR PO4 < 2.5 Last administered on 01/22/19at 14:28; Start 01/15/19 at 14:00 Sodium Chloride 40 meq/Sodium Acetate 40 meq/ Calcium Gluconate 10 meq/ Multivitamins 10 ml/Chromium/ Copper/Manganese/ Seleni/Zn 1 ml/ Thiamine HCl 100 mg/Total Parenteral Nutrition/Amino Acids/Dextrose/ Fat Emulsion Intravenous 1,512 ml @ 63 mls/hr TPN CONT IV Last administered on 01/15/19at 21:45; Start 01/15/19 at 22:00; Stop 01/16/19 at 21:59; Status DC Potassium Chloride 20 meq/ Bicarbonate Dialysis Soln w/ out KCl 5,010 ml @ 500 mls/hr Q10H2M IV Last administered on 01/17/19at 10:43; Start 01/15/19 at 19:01; Stop 01/17/19 at 15:00; Status DC Potassium Chloride 20 meq/ Bicarbonate Dialysis Soln w/ out KCl 5,010 ml @ 1,200 mls/hr Q4H11M IV Last administered on 01/17/19at 10:36; Start 01/15/19 at 19:01; Stop 01/17/19 at 15:00; Status DC Potassium Chloride 20 meq/ Bicarbonate Dialysis Soln w/ out KCl 5,010 ml @ 1,200 mls/hr Q4H11M IV Last administered on 01/17/19at 00:17; Start 01/15/19 at 19:00; Stop 01/17/19 at 15:00; Status DC Daptomycin 500 mg/ Sodium Chloride 50 ml @ 100 mls/hr Q48H IV Last administered on 01/20/19at 09:16; Start 01/16/19 at 09:00; Stop 01/22/19 at 08:12; Status DC Sodium Chloride 60 meq/Sodium Acetate 40 meq/ Calcium Gluconate 10 meq/ Multivitamins 10 ml/Chromium/ Copper/Manganese/ Seleni/Zn 1 ml/ Thiamine HCl 100 mg/Total Parenteral Nutrition/Amino Acids/Dextrose/ Fat Emulsion Intravenous 1,512 ml @ 63 mls/hr TPN CONT IV Last administered on 01/16/19at 22:00; Start 01/16/19 at 22:00; Stop 01/18/19 at 10:50; Status DC Sodium Chloride 80 meq/Calcium Gluconate 10 meq/ Multivitamins 10 ml/Chromium/ Copper/Manganese/ Seleni/Zn 1 ml/ Thiamine HCl 100 mg/Total Parenteral Nutrition/Amino Acids/Dextrose/ Fat Emulsion Intravenous 1,512 ml @ 63 mls/hr TPN CONT IV Last administered on 01/17/19at 21:52; Start 01/17/19 at 22:00; Stop 01/18/19 at 21:59; Status DC Potassium Chloride 20 meq/ Sodium Bicarbonate 40 meq/Bicarbonate Dialysis Soln w/ out KCl 5,050 ml @ 500 mls/hr Q10H6M IV Last administered on 01/18/19at 08:17; Start 01/17/19 at 15:00; Stop 01/18/19 at 18:00; Status DC Potassium Chloride 20 meq/ Sodium Bicarbonate 40 meq/Bicarbonate Dialysis Soln w/ out KCl 5,050 ml @ 1,200 mls/hr Q4H13M IV Last administered on 01/18/19at 06:01; Start 01/17/19 at 15:00; Stop 01/18/19 at 09:51; Status DC Potassium Chloride 20 meq/ Sodium Bicarbonate 40 meq/Bicarbonate Dialysis Soln w/ out KCl 5,050 ml @ 1,200 mls/hr Q4H13M IV Last administered on 01/18/19at 06:01; Start 01/17/19 at 15:00; Stop 01/18/19 at 09:51; Status DC Potassium Phosphate 20 mmol/ Sodium Chloride 256.6667 ml @ 128.... ONCE ONCE IV Last administered on 01/17/19at 18:21; Start 01/17/19 at 17:45; Stop 01/17/19 at 19:44; Status DC Calcium Chloride 12.5 meq/ Magnesium Sulfate 2.5 meq/Potassium Chloride 10 meq/ Sodium Bicarbonate 40 meq/Bicarbonate Dialysis Soln w/ out KCl 5,054.5443 ml @ 1,200 mls/hr Q4H13M IV Last administered on 01/19/19at 03:20; Start 01/18/19 at 10:00; Stop 01/19/19 at 07:47; Status DC Calcium Chloride 12.5 meq/ Magnesium Sulfate 2.5 meq/Potassium Chloride 10 meq/ Sodium Bicarbonate 40 meq/Bicarbonate Dialysis Soln w/ out KCl 5,054.5443 ml @ 1,200 mls/hr Q4H13M IV Last administered on 01/19/19at 03:21; Start 01/18/19 at 10:00; Stop 01/19/19 at 07:47; Status DC Calcium Chloride 12.5 meq/ Magnesium Sulfate 2.5 meq/Potassium Chloride 10 meq/ Sodium Bicarbonate 40 meq/Bicarbonate Dialysis Soln w/ out KCl 5,054.5443 ml @ 500 mls/hr Q10H7M IV Last administered on 01/19/19at 05:16; Start 01/18/19 at 18:00; Stop 01/19/19 at 07:48; Status DC Meropenem 500 mg/ Sodium Chloride 50 ml @ 100 mls/hr Q8HRS IV Last administered on 01/19/19at 06:02; Start 01/18/19 at 14:00; Stop 01/19/19 at 09: 24; Status DC Sodium Chloride 80 meq/Calcium Gluconate 10 meq/ Multivitamins 10 ml/Chromium/ Copper/Manganese/ Seleni/Zn 1 ml/ Thiamine HCl 100 mg/Total Parenteral Nutrition/Amino Acids/Dextrose/ Fat Emulsion Intravenous 1,512 ml @ 63 mls/hr TPN CONT IV Last administered on 01/18/19at 21:37; Start 01/18/19 at 22:00; Stop 01/19/19 at 21:59; Status DC Epinephrine HCl 4 mg/Sodium Chloride 254 ml @ 41.822 mls/ hr CONT PRN IV SEE I/O RECORD; Start 01/18/19 at 16:15; Stop 01/19/19 at 18:00; Status DC Methylprednisolone Sodium Succinate (SOLU-Medrol 125MG VIAL) 125 mg 1X ONCE IV Last administered on 01/18/19at 16:30; Start 01/18/19 at 16:30; Stop 01/18/19 at 16:31; Status DC Methylprednisolone Sodium Succinate (SOLU-Medrol 125MG VIAL) 125 mg STK-MED ONCE .ROUTE ; Start 01/18/19 at 16:26; Stop 01/18/19 at 16:26; Status DC Calcium Chloride 12.5 meq/ Potassium Chloride 5 meq/ Sodium Bicarbonate 40 meq/Bicarbonate Dialysis Soln w/ out KCl 5,051.4286 ml @ 1,200 mls/hr Q4H13M IV Last administered on 01/20/19at 11:31; Start 01/19/19 at 08:00; Stop 01/20/19 at 11:30; Status DC Calcium Chloride 12.5 meq/ Potassium Chloride 5 meq/ Sodium Bicarbonate 40 meq/Bicarbonate Dialysis Soln w/ out KCl 5,051.4286 ml @ 1,200 mls/hr Q4H13M IV Last administered on 01/20/19at 11:30; Start 01/19/19 at 08:00; Stop 01/20/19 at 11:30; Status DC Calcium Chloride 12.5 meq/ Potassium Chloride 5 meq/ Sodium Bicarbonate 40 meq/Bicarbonate Dialysis Soln w/ out KCl 5,051.4286 ml @ 500 mls/hr Q10H7M IV Last administered on 01/20/19at 03:09; Start 01/19/19 at 15:00; Stop 01/20/19 at 11:30; Status DC Meropenem 1 gm/ Sodium Chloride 100 ml @ 200 mls/hr Q12H IV Last administered on 01/19/19at 14:36; Start 01/19/19 at 14:00; Stop 01/19/19 at 16:00; Status DC Albumin Human 100 ml @ As Directed STK-MED ONCE IV ; Start 01/19/19 at 10:44; Stop 01/19/19 at 10:44; Status DC Norepinephrine Bitartrate 32 mg/ Sodium Chloride 250 ml @ 7 mls/hr CONT PRN IV SEE I/O RECORD Last administered on 01/22/19at 22:40; Start 01/19/19 at 11:30 Sodium Chloride 80 meq/Calcium Gluconate 10 meq/ Multivitamins 10 ml/Chromium/ Copper/Manganese/ Seleni/Zn 1 ml/ Thiamine HCl 100 mg/Total Parenteral Nutrition/Amino Acids/Dextrose/ Fat Emulsion Intravenous 1,200 ml @ 50 mls/hr TPN CONT IV Last administered on 01/19/19at 21:30; Start 01/19/19 at 22:00; Stop 01/20/19 at 21:59; Status DC Epinephrine HCl 8 mg/Sodium Chloride 258 ml @ 20.9 mls/hr CONT PRN IV SEE I/O RECORD; Start 01/19/19 at 14:15 Meropenem 1 gm/ Sodium Chloride 50 ml @ 100 mls/hr Q12H IV Last administered o n 01/23/19at 09:36; Start 01/20/19 at 02:00 Albumin Human 100 ml @ As Directed STK-MED ONCE IV ; Start 01/19/19 at 17:00; Stop 01/19/19 at 17:00; Status DC Potassium Phosphate 20 mmol/ Sodium Chloride 256.6667 ml @ 128.... 1X ONCE IV Last administered on 01/20/19at 06:19; Start 01/20/19 at 06:15; Stop 01/20/19 at 08:14; Status DC Phytonadione 10 mg/Dextrose 51 ml @ 102 mls/hr 1X ONCE IV Last administered on 01/20/19at 11:07; Start 01/20/19 at 10:45; Stop 01/20/19 at 11:14; Status DC Calcium Chloride 12.5 meq/ Potassium Chloride 5 meq/ Bicarbonate Dialysis Soln w/ out KCl 5,011.4286 ml @ 1,200 mls/hr Q4H11M IV Last administered on 01/22/19at 16:26; Start 01/20/19 at 11:00; Stop 01/22/19 at 20:00; Status DC Calcium Chloride 12.5 meq/ Potassium Chloride 5 meq/ Bicarbonate Dialysis Soln w/ out KCl 5,011.4286 ml @ 1,200 mls/hr Q4H11M IV ; Start 01/20/19 at 11:30; Stop 01/20/19 at 10:31; Status DC Calcium Chloride 12.5 meq/ Potassium Chloride 5 meq/ Bicarbonate Dialysis Soln w/ out KCl 5,011.4286 ml @ 1,200 mls/hr Q4H11M IV Last administered on 01/22/19at 11:30; Start 01/20/19 at 10:30; Stop 01/22/19 at 20:00; Status DC Calcium Chloride 12.5 meq/ Potassium Chloride 5 meq/ Bicarbonate Dialysis Soln w/ out KCl 5,011.4286 ml @ 500 mls/hr Q10H2M IV Last administered on 01/22/19at 07:59; Start 01/20/19 at 11:30; Stop 01/22/19 at 16:21; Status DC Sodium Chloride 80 meq/Calcium Gluconate 20 meq/ Multivitamins 10 ml/Chromium/ Copper/Manganese/ Seleni/Zn 1 ml/ Thiamine HCl 100 mg/Total Parenteral Nutrition/Amino Acids/Dextrose/ Fat Emulsion Intravenous 1,200 ml @ 50 mls/hr TPN CONT IV Last administered on 01/20/19at 21:43; Start 01/20/19 at 22:00; Stop 01/21/19 at 21:59; Status DC Potassium Phosphate 40 mmol/ Sodium Chloride 263.3333 ml @ 62.5 mls/hr 1X ONCE IV Last administered on 01/20/19at 16:03; Start 01/20/19 at 16:00; Stop 01/20/19 at 20:12; Status DC Sodium Phosphate 40 mmol/Dextrose 263.3333 ml @ 62.5 mls/hr 1X ONCE IV Last administered on 01/21/19at 09:26; Start 01/21/19 at 09:00; Stop 01/21/19 at 13:1 3; Status DC Sodium Chloride 80 meq/Calcium Gluconate 25 meq/ Multivitamins 10 ml/Chromium/ Copper/Manganese/ Seleni/Zn 1 ml/ Thiamine HCl 100 mg/Total Parenteral Nutrition/Amino Acids/Dextrose/ Fat Emulsion Intravenous 1,512 ml @ 63 mls/hr TPN CONT IV Last administered on 01/21/19at 22:09; Start 01/21/19 at 22:00; Stop 01/22/19 at 21:59; Status DC Epinephrine HCl (EPINEPHrine SYRINGE) 1 mg STK-MED ONCE .ROUTE ; Start 01/19/19 at 12:00; Stop 01/21/19 at 15:55; Status DC Sodium Bicarbonate (Sodium Bicarb Adult 8.4% Syr) 50 meq STK-MED ONCE .ROUTE ; Start 01/19/19 at 12:00; Stop 01/21/19 at 15:55; Status DC Magnesium Sulfate 50 ml @ 25 mls/hr 1X ONCE IV Last administered on 01/21/19at 16:24; Start 01/21/19 at 16:30; Stop 01/21/19 at 18:29; Status DC Potassium Phosphate 40 mmol/ Sodium Chloride 263.3333 ml @ 62.5 mls/hr 1X ONCE IV Last administered on 01/21/19at 22:00; Start 01/21/19 at 21:45; Stop 01/22/19 at 01:57; Status DC Potassium Phosphate 20 mmol/ Sodium Chloride 256.6667 ml @ 62.5 mls/hr 1X ONCE IV Last administered on 01/22/19at 06:22; Start 01/22/19 at 06:30; Stop 01/22/19 at 10:36; Status DC Sodium Chloride 80 meq/Calcium Gluconate 25 meq/ Multivitamins 10 ml/Chromium/ Copper/Manganese/ Seleni/Zn 1 ml/ Thiamine HCl 100 mg/Total Parenteral Nutrition/Amino Acids/Dextrose/ Fat Emulsion Intravenous 1,512 ml @ 63 mls/hr TPN CONT IV Last administered on 01/22/19at 22:03; Start 01/22/19 at 22:00 Potassium Chloride 15 meq/ Bicarbonate Dialysis Soln w/ out KCl 5,007.5 ml @ 500 mls/ hr Q10H1M IV Last administered on 01/23/19at 05:01; Start 01/22/19 at 17:00 Potassium Chloride 15 meq/ Bicarbonate Dialysis Soln w/ out KCl 5,007.5 ml @ 1,200 mls/ hr Q4H11M IV Last administered on 01/23/19at 05:00; Start 01/22/19 at 20:01 Potassium Chloride 15 meq/ Bicarbonate Dialysis Soln w/ out KCl 5,007.5 ml @ 1,200 mls/ hr Q4H11M IV Last administered on 01/23/19at 05:00; Start 01/22/19 at 20:01 Magnesium Sulfate 100 ml @ 50 mls/hr DAILY IV Last administered on 01/22/19at 22:12; Start 01/22/19 at 22:30; Stop 01/26/19 at 22:29 Daptomycin 490 mg/ Sodium Chloride 50 ml @ 100 mls/hr Q48H IV Last administered on 01/23/19at 09:40; Start 01/23/19 at 09:00 Micafungin Sodium 100 mg/Dextrose 100 ml @ 100 mls/hr Q24H IV ; Start 01/23/19 at 10:00 Vitals/I & O Vital Sign - Last 24 Hours 01/22/19 01/22/19 01/22/19 01/22/19 13:17 14:00 14:19 15:00 Pulse 104 103 Resp 25 24 24 24 B/P (MAP) 119/44 (69) 102/49 (66) Pulse Ox 100 100 100 100 O2 Delivery Ventilator Ventilator Ventilator Ventilator 01/22/19 01/22/19 01/22/19 01/22/19 15:37 15:56 16:00 17:00 Temp 98.6 98.6 Pulse 105 112 Resp 24 28 B/P (MAP) 110/52 (71) 109/50 (69) Pulse Ox 100 100 100 O2 Delivery Ventilator Mechanical Ventilator Ventilator Ventilator 01/22/19 01/22/19 01/22/19 01/22/19 18:00 18:30 18:35 19:00 Pulse 106 Resp 24 24 B/P (MAP) 120/53 (75) Pulse Ox 100 97 100 95 O2 Delivery Ventilator Ventilator Ventilator Ventilator 01/22/19 01/22/19 01/22/19 01/22/19 19:00 20:00 20:00 20:20 Temp 98.6 98.6 Pulse 106 98 Resp 27 24 B/P (MAP) 114/48 (70) 97/46 (63) Pulse Ox 96 96 95 O2 Delivery Ventilator Ventilator Mechanical Ventilator Ventilator 01/22/19 01/22/19 01/22/19 01/22/19 21:00 22:00 23:00 23:28 Temp 98.2 98.2 Pulse 103 104 102 Resp 24 24 24 B/P (MAP) 108/46 (66) 122/46 (71) 112/48 (69) Pulse Ox 94 94 94 94 O2 Delivery Ventilator Ventilator Ventilator Ventilator 01/22/19 01/22/19 01/22/19 01/23/19 23:40 23:58 23:59 00:00 Temp 98.4 98.4 Pulse 106 Resp 25 B/P (MAP) 101/40 (60) Pulse Ox 95 95 94 O2 Delivery Ventilator Ventilator Mechanical Ventilator Ventilator 01/23/19 01/23/19 01/23/19 01/23/19 01:00 01:06 02:00 03:00 Pulse 101 100 101 Resp 24 24 24 B/P (MAP) 100/43 (62) 104/38 (60) 109/31 (57) Pulse Ox 94 94 94 91 O2 Delivery Ventilator Ventilator Ventilator Ventilator 01/23/19 01/23/19 01/23/19 01/23/19 04:00 04:00 04:16 05:00 Temp 98.2 98.2 Pulse 98 100 Resp 25 24 B/P (MAP) 107/31 (56) 106/30 (55) Pulse Ox 92 90 93 O2 Delivery Ventilator Mechanical Ventilator Ventilator Ventilator 01/23/19 01/23/19 01/23/19 01/23/19 05:18 05:37 06:00 06:07 Pulse 100 Resp 24 B/P (MAP) 95/25 (48) Pulse Ox 92 93 91 91 O2 Delivery Ventilator Ventilator Ventilator Ventilator 01/23/19 01/23/19 01/23/19 01/23/19 07:00 07:30 07:39 08:00 Temp 99.2 99.2 Pulse 94 92 102 Resp 24 25 25 B/P (MAP) 80/33 (49) 86/34 (51) 115/36 (62) Pulse Ox 92 94 93 97 O2 Delivery Ventilator Ventilator Ventilator Ventilator 01/23/19 01/23/19 01/23/19 01/23/19 08:29 08:41 11:28 12:04 Pulse 101 Resp 25 B/P (MAP) 115/50 (71) Pulse Ox 95 96 93 96 O2 Delivery Ventilator Ventilator Ventilator 01/23/19 12:32 Pulse Ox 96 O2 Delivery Ventilator Intake and Output 01/22/19 01/22/19 01/23/19 15:00 23:00 07:00 Intake Total 667 ml 2742.81 ml 1285 ml Output Total 0 ml 320 ml 0 ml Balance 667 ml 2422.81 ml 1285 ml DEENA LUTHER MD Jan 23, 2019 13:18
[2019-01-23] MEDS: TPN PER PHARMACY MC PRN (13:28)
[2019-01-23] MEDS ORDERED: IV NORMAL SALINE 1000ML BAG 1,000 ML IV SCH (14:13)
[2019-01-23] MEDS ORDERED: NALOXONE 0.4 MG/ML VIAL. IV PRN (14:15)
--- NOTE | 2019-01-23 14:24 | NUR ---
Wound Care Pt family planning on withdrawing care tomorrow. Will not assess at this time.
[2019-01-23 14:35] LABS: MAGNESIUM 2.5 mg/dL (1.8-2.4); PHOSPHORUS 3.1 mg/dL (2.6-4.7)
--- NOTE | 2019-01-23 14:37 | NUR ---
Pharmacy TPN Dosing Note S: ULI CARRIZALES is a 38 year old M Currently receiving Central Continuous TPN started 01/13/19 B:Pertinent PMH: Ileus, high residuals with tube feeding Height: 5 feet, 7 inches Weight: 104.742460 kg Current diet: NPO LABS: Sodium: 139 Potassium: 4.0 Chloride: 101 Calcium: 8.5 Corrected Calcium: 8.74 Magnesium: 2.8 CO2: 23 SCr: 1.4 Glucose: 125 Albumin: 3.7 AST: 178 ALT: 58 TPN FORMULA: TPN TYPE: Central Continuous AMINO ACIDS: 135 gm DEXTROSE: 225 gm LIPIDS: 30 gm SODIUM CHLORIDE: 80 mEq SODIUM ACETATE: - mEq SODIUM PHOSPHATE: - mmol POTASSIUM CHLORIDE: - mEq POTASSIUM ACETATE: - mEq POTASSIUM PHOSPHATE: - mmol MAGNESIUM: - mEq CALCIUM: 25 mEq INSULIN: - units MULTIPLE VITAMIN: 10 ml TRACE ELEMENTS: 1 ml(s) TPN PLAN: continue tpn at 63ml/hr R: Continue TPN Will monitor electrolytes, glucose, and tolerance to TPN. ANT [facility], 01/23/19 2372
--- NOTE | 2019-01-23 19:46 | NUR ---
7A-1800 Waiting to speak w Dr Oliveira on "potential outcome. Sadened /heartbroken on news. Discussed w family and "called back: w decision to extubate 1200 01/24 . (s) Roxanne,[employer] Magana informed of family decision e order changes noted.. Continue w vec/sedation that currently assist w comfort care.
[2019-01-23] MEDS ORDERED: AMINO ACID IV SCH ×8 (22:00)
[2019-01-23] MEDS ORDERED: TOTAL PARENTERAL NUTRITION IV SCH ×8 (22:00)
[2019-01-23] MEDS ORDERED: [UNRECOGNIZED DRUG - OTHER] IV SCH ×8 (22:00)
[2019-01-23] MEDS ORDERED: DEXTROSE 70% IV SCH ×8 (22:00)
[2019-01-24] VITALS (11 sets, daily range): BP systolic 77–116; BP diastolic 30–50
[2019-01-24] MEDS: POTASSIUM CHLORIDE 15 MEQ in DIALYSIS SOLUTION BGK 0/2.5 5,000 ML IV SCH ×7 (00:11→08:59)
[2019-01-24] MEDS: DEXMEDETOMIDINE 400 MCG in IV NORMAL SALINE 100ML 96 ML IV PRN ×2 (03:39→07:36)
[2019-01-24] MEDS: NOREPINEPHRINE VIAL 32 MG in IV NORMAL SALINE 250ML IV PRN (03:39)
[2019-01-24] MEDS: MIDAZOLAM 100mg/100ml NS BAG 100 ML IV PRN (05:40)
[2019-01-24] MEDS: VECURONIUM BOLUS 10 MG VIAL. IV PRN (06:24)
--- NOTE | 2019-01-24 06:52 | PDOC ---
PULMONARY PROGRESS NOTES Subjective PT ON PC V 100 % fi02, large ett secretion, on levo, sedation on fentanyl versed, mod ett secretion Vitals Vital Signs Date Time Temp Pulse Resp B/P (MAP) Pulse Ox O2 Delivery O2 Flow Rate FiO2 01/24/19 06:15 114 24 116/50 (72) 93 Ventilator 01/24/19 04:00 99.6 99.6 01/24/19 04:00 24.0 HEENT: Other (nc at perrl orally intubated) Lungs: Other (coarse bs bilaterally) Cardiovascular: S1, S2 Abdomen: Soft, Non-tender, Other (DISTENDED no mass) Extremities: Other (EDEMA) Skin: Warm Labs Laboratory Tests Test 01/22/19 08:00 01/22/19 09:15 01/22/19 12:13 01/22/19 13:04 O2 Saturation 96 % (92-99) Arterial Blood pH 7.45 (7.35-7.45) Arterial Blood pCO2 at Patient Temp 33 mmHg (35-46) Arterial Blood pO2 at Patient Temp 87 mmHg (85-108) Arterial Blood HCO3 22 mmol/L (21-28) Arterial Blood Base Excess -2 mmol/L (-3-3) FiO2 100 Lactic Acid Level 4.0 mmol/L (0.4-2.0) Glucose (Fingerstick) 112 mg/dL (70-99) Hemoglobin 7.7 g/dL (13.0-17.5) Hematocrit 22.2 % (39.0-53.0) Mean Corpuscular Hemoglobin Concent 35 g/dL (31-37) Sodium Level 141 mmol/L (136-145) Potassium Level 3.8 mmol/L (3.5-5.1) Chloride Level 102 mmol/L (98-107) Carbon Dioxide Level 25 mmol/L (21-32) Anion Gap 14 (6-14) Blood Urea Nitrogen 40 mg/dL (8-26) Creatinine 1.4 mg/dL (0.7-1.3) Estimated GFR (Cockcroft-Gault) 56.7 Glucose Level 114 mg/dL (70-99) Calcium Level 8.2 mg/dL (8.5-10.1) Phosphorus Level 2.3 mg/dL (2.6-4.7) Magnesium Level 1.8 mg/dL (1.8-2.4) Test 01/22/19 16:58 01/22/19 21:00 01/23/19 05:00 01/23/19 07:45 Glucose (Fingerstick) 113 mg/dL (70-99) Sodium Level 139 mmol/L (136-145) 139 mmol/L (136-145) Potassium Level 4.0 mmol/L (3.5-5.1) 4.6 mmol/L (3.5-5.1) Chloride Level 101 mmol/L (98-107) 101 mmol/L (98-107) Carbon Dioxide Level 26 mmol/L (21-32) 23 mmol/L (21-32) Anion Gap 12 (6-14) 15 (6-14) Blood Urea Nitrogen 40 mg/dL (8-26) 39 mg/dL (8-26) Creatinine 1.4 mg/dL (0.7-1.3) 1.4 mg/dL (0.7-1.3) Estimated GFR (Cockcroft-Gault) 56.7 56.7 Glucose Level 126 mg/dL (70-99) 125 mg/dL (70-99) Lactic Acid Level 4.9 mmol/L (0.4-2.0) Calcium Level 8.5 mg/dL (8.5-10.1) 8.5 mg/dL (8.5-10.1) Phosphorus Level 2.9 mg/dL (2.6-4.7) 4.5 mg/dL (2.6-4.7) Magnesium Level 1.7 mg/dL (1.8-2.4) 2.8 mg/dL (1.8-2.4) White Blood Count 33.7 x10^3/uL (4.0-11.0) Red Blood Count 2.35 x10^6/uL (4.30-5.70) Hemoglobin 7.6 g/dL (13.0-17.5) Hematocrit 22.7 % (39.0-53.0) Mean Corpuscular Volume 97 fL (79-100) Mean Corpuscular Hemoglobin 33 pg (25-35) Mean Corpuscular Hemoglobin Concent 34 g/dL (31-37) Red Cell Distribution Width 18.4 % (11.5-14.5) Platelet Count 57 x10^3/uL (140-400) Neutrophils (%) (Auto) 72 % (31-73) Lymphocytes (%) (Auto) 19 % (24-48) Monocytes (%) (Auto) 8 % (0-9) Eosinophils (%) (Auto) 0 % (0-3) Basophils (%) (Auto) 1 % (0-3) Neutrophils # (Auto) 24.1 x10^3/uL (1.8-7.7) Lymphocytes # (Auto) 6.5 x10^3/uL (1.0-4.8) Monocytes # (Auto) 2.7 x10^3/uL (0.0-1.1) Eosinophils # (Auto) 0.1 x10^3/uL (0.0-0.7) Basophils # (Auto) 0.4 x10^3/uL (0.0-0.2) Segmented Neutrophils % 50 % (35-66) Band Neutrophils % 23 % (0-9) Lymphocytes % 15 % (24-48) Monocytes % 3 % (0-10) Myelocytes % 9 % (0-0) Nucleated Red Blood Cells 3 Toxic Granulation Present Toxic Vacuolation Present Platelet Estimate Decreased (ADEQUATE) Large Platelets Present Anisocytosis Slight Albumin 3.7 g/dL (3.4-5.0) O2 Saturation 87 % (92-99) Arterial Blood pH 7.24 (7.35-7.45) Arterial Blood pH (Temp corrected) 7.24 Arterial Blood pCO2 at Patient Temp 49 mmHg (35-46) Arterial Blood pCO2 (Temp correct) 50 mmHg Arterial Blood pO2 at Patient Temp 63 mmHg (85-108) Arterial Blood pO2 (Temp corrected) 65 mmHg Arterial Blood HCO3 21 mmol/L (21-28) Arterial Blood Base Excess -6 mmol/L (-3-3) FiO2 100 Test 01/23/19 09:10 01/23/19 13:39 01/23/19 13:50 01/23/19 18:20 Lactic Acid Level 5.7 mmol/L (0.4-2.0) Glucose (Fingerstick) 129 mg/dL (70-99) 123 mg/dL (70-99) Phosphorus Level 3.1 mg/dL (2.6-4.7) Magnesium Level 2.5 mg/dL (1.8-2.4) Laboratory Tests Test 01/23/19 07:45 01/23/19 09:10 01/23/19 13:39 01/23/19 13:50 O2 Saturation 87 % (92-99) Arterial Blood pH 7.24 (7.35-7.45) Arterial Blood pH (Temp corrected) 7.24 Arterial Blood pCO2 at Patient Temp 49 mmHg (35-46) Arterial Blood pCO2 (Temp correct) 50 mmHg Arterial Blood pO2 at Patient Temp 63 mmHg (85-108) Arterial Blood pO2 (Temp corrected) 65 mmHg Arterial Blood HCO3 21 mmol/L (21-28) Arterial Blood Base Excess -6 mmol/L (-3-3) FiO2 100 Lactic Acid Level 5.7 mmol/L (0.4-2.0) Glucose (Fingerstick) 129 mg/dL (70-99) Phosphorus Level 3.1 mg/dL (2.6-4.7) Magnesium Level 2.5 mg/dL (1.8-2.4) Test 01/23/19 18:20 Glucose (Fingerstick) 123 mg/dL (70-99) Comments Impression . IMPRESSION: 1. Acute respiratory failure, multifactorial, secondary to multiorgan failure. ARDS with.likely superimposed fluid overload/CHF/ underlying aspiration pneumonitis etiology of ARDS, no evidence of hepato-pulmonary shunt on Bubble echo 2. End-stage liver disease with persistent abnormal LFT, bili up to 15 3. Multiorgan failure. 4. Renal failure. ? hepato renal syndrome, remains oliguric, on CRRT 5. Acute gastrointestinal bleed. 6. sepsis. 7. Leukocytosis 8. Hematemesis 9. Rhabdomyolysis. 10. Alcohol abuse. 11. Ascites. 12. Electrolyte abnormalities. Imaging: EGD 01/08 E--NO VARICES. Erosions distally c/w reflux/repeated emesis. One quite long narrow erosion which could have been a M-W. No active bleeding or clot. G--Not much retained blood after OG suction and Reglan. NO gastric varices. Linear erosions along the rugae in fundus and body c/w alcoholic or stress gastritis. Scattered "bruises" from OG tube. No ulcer, etc. D--Normal to second portion. IMP: Reflux esophagitis. ? recent M-W tear. Alcoholic gastritis. No active bleeding or clot seen. Plan . dr mckinley SPOKE WITH AND MOTHER, HE INFORMED THEM THAT PT CHANCES OF RECOVERY ARE BASICALLY ZERO THEY HAVE AGREED TO WITHDRAW CARE today AT NOON, doubt survive long RN AND DR HIGGINS NOTIFIED on crrt per nephro pressors discussed w GRAEME Baltazar MD Jan 24, 2019 06:52
[2019-01-24] MEDS: INSULIN LISPRO 300 UNITS/3 ML VIAL. SQ SCH (08:00)
--- NOTE | 2019-01-24 08:15 | NUR ---
MTN notified of families wishes to withdraw care today at noon. Pt is not a candidate for organ donation. Instructed to call back with time of cardiac .
[2019-01-24] MEDS ORDERED: MORPHINE SULFATE 2 MG/ML VIAL. IV PRN (09:30)
--- NOTE | 2019-01-24 10:14 | NUR ---
CRRT filter clotted at this time, Pt blood returned and machine shut off.
--- NOTE | 2019-01-24 10:43 | PDOC ---
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 DIC Acute precip drop hgb 01/21 History of Present Illness History of Present Illness DAy 17 hospital stay NOW A DNR AT least 10 family members in room and they plan to terminally extubate 12 nn PLAN: dnr terminal extubate 12 nn hospice packet I started morphine dw ART CONSULTANT Vitals Vitals Vital Signs Date Time Temp Pulse Resp B/P (MAP) Pulse Ox O2 Delivery O2 Flow Rate FiO2 01/24/19 10:08 98 Ventilator 01/24/19 10:00 110 23 77/35 (49) 01/24/19 07:45 98.6 98.6 01/24/19 07:45 24.0 Physical Exam Physical Exam GENERAL: Orally intubated and sedated, CRRT HEENT: Icteric, Pupils equal, ETT and OGT LUNGS: Right-sided rhonchi HEART: S1 S2 regular ABDOMEN: Obese, distended,hypoactive BS : - Pollard EXTREMITIES:gen edema, LLE ecchymosis. SKIN: warm to touch , ecchymotic lesion on the back NEUROLOGIC: Sedated RIJ and Temp RIJ/HDC (01/13) clean PIV General: No acute distress Heart: Normal S1, Normal S2 Lungs: Other (coarse bs bilaterally) Abdomen: Soft, No tenderness, Other (pot belly possible fluid wave) Extremities: No clubbing, No cyanosis, Normal pulses, Other (left leg is bruised from a fall 2-3 weeks ago) Labs LABS Laboratory Tests Test 01/23/19 13:39 01/23/19 13:50 01/23/19 18:20 Glucose (Fingerstick) 129 mg/dL (70-99) 123 mg/dL (70-99) Phosphorus Level 3.1 mg/dL (2.6-4.7) Magnesium Level 2.5 mg/dL (1.8-2.4) Review of Systems Review of Systems intubtaed, sedated Assessment and Plan Assessmemt and Plan Problems Medical Problems: (1) Acute hepatic encephalopathy Status: Acute (2) Acute upper GI bleed Status: Acute (3) Ascites Status: Acute (4) Hypokalemia Status: Acute (5) Multiple organ system failure Status: Acute (6) Severe sepsis with acute organ dysfunction Status: Acute Comment Review of Relevant I have reviewed the following items karen (where applicable) has been applied. Labs Laboratory Tests Test 01/22/19 12:13 01/22/19 13:04 01/22/19 16:58 01/22/19 21:00 Glucose (Fingerstick) 112 mg/dL (70-99) 113 mg/dL (70-99) Hemoglobin 7.7 g/dL (13.0-17.5) Hematocrit 22.2 % (39.0-53.0) Mean Corpuscular Hemoglobin Concent 35 g/dL (31-37) Sodium Level 141 mmol/L (136-145) 139 mmol/L (136-145) Potassium Level 3.8 mmol/L (3.5-5.1) 4.0 mmol/L (3.5-5.1) Chloride Level 102 mmol/L (98-107) 101 mmol/L (98-107) Carbon Dioxide Level 25 mmol/L (21-32) 26 mmol/L (21-32) Anion Gap 14 (6-14) 12 (6-14) Blood Urea Nitrogen 40 mg/dL (8-26) 40 mg/dL (8-26) Creatinine 1.4 mg/dL (0.7-1.3) 1.4 mg/dL (0.7-1.3) Estimated GFR (Cockcroft-Gault) 56.7 56.7 Glucose Level 114 mg/dL (70-99) 126 mg/dL (70-99) Calcium Level 8.2 mg/dL (8.5-10.1) 8.5 mg/dL (8.5-10.1) Phosphorus Level 2.3 mg/dL (2.6-4.7) 2.9 mg/dL (2.6-4.7) Magnesium Level 1.8 mg/dL (1.8-2.4) 1.7 mg/dL (1.8-2.4) Lactic Acid Level 4.9 mmol/L (0.4-2.0) Test 01/23/19 05:00 01/23/19 07:45 01/23/19 09:10 01/23/19 13:39 White Blood Count 33.7 x10^3/uL (4.0-11.0) Red Blood Count 2.35 x10^6/uL (4.30-5.70) Hemoglobin 7.6 g/dL (13.0-17.5) Hematocrit 22.7 % (39.0-53.0) Mean Corpuscular Volume 97 fL (79-100) Mean Corpuscular Hemoglobin 33 pg (25-35) Mean Corpuscular Hemoglobin Concent 34 g/dL (31-37) Red Cell Distribution Width 18.4 % (11.5-14.5) Platelet Count 57 x10^3/uL (140-400) Neutrophils (%) (Auto) 72 % (31-73) Lymphocytes (%) (Auto) 19 % (24-48) Monocytes (%) (Auto) 8 % (0-9) Eosinophils (%) (Auto) 0 % (0-3) Basophils (%) (Auto) 1 % (0-3) Neutrophils # (Auto) 24.1 x10^3/uL (1.8-7.7) Lymphocytes # (Auto) 6.5 x10^3/uL (1.0-4.8) Monocytes # (Auto) 2.7 x10^3/uL (0.0-1.1) Eosinophils # (Auto) 0.1 x10^3/uL (0.0-0.7) Basophils # (Auto) 0.4 x10^3/uL (0.0-0.2) Segmented Neutrophils % 50 % (35-66) Band Neutrophils % 23 % (0-9) Lymphocytes % 15 % (24-48) Monocytes % 3 % (0-10) Myelocytes % 9 % (0-0) Nucleated Red Blood Cells 3 Toxic Granulation Present Toxic Vacuolation Present Platelet Estimate Decreased (ADEQUATE) Large Platelets Present Anisocytosis Slight Sodium Level 139 mmol/L (136-145) Potassium Level 4.6 mmol/L (3.5-5.1) Chloride Level 101 mmol/L (98-107) Carbon Dioxide Level 23 mmol/L (21-32) Anion Gap 15 (6-14) Blood Urea Nitrogen 39 mg/dL (8-26) Creatinine 1.4 mg/dL (0.7-1.3) Estimated GFR (Cockcroft-Gault) 56.7 Glucose Level 125 mg/dL (70-99) Calcium Level 8.5 mg/dL (8.5-10.1) Phosphorus Level 4.5 mg/dL (2.6-4.7) Magnesium Level 2.8 mg/dL (1.8-2.4) Albumin 3.7 g/dL (3.4-5.0) O2 Saturation 87 % (92-99) Arterial Blood pH 7.24 (7.35-7.45) Arterial Blood pH (Temp corrected) 7.24 Arterial Blood pCO2 at Patient Temp 49 mmHg (35-46) Arterial Blood pCO2 (Temp correct) 50 mmHg Arterial Blood pO2 at Patient Temp 63 mmHg (85-108) Arterial Blood pO2 (Temp corrected) 65 mmHg Arterial Blood HCO3 21 mmol/L (21-28) Arterial Blood Base Excess -6 mmol/L (-3-3) FiO2 100 Lactic Acid Level 5.7 mmol/L (0.4-2.0) Glucose (Fingerstick) 129 mg/dL (70-99) Test 01/23/19 13:50 01/23/19 18:20 Phosphorus Level 3.1 mg/dL (2.6-4.7) Magnesium Level 2.5 mg/dL (1.8-2.4) Glucose (Fingerstick) 123 mg/dL (70-99) Laboratory Tests Test 01/23/19 13:39 01/23/19 13:50 01/23/19 18:20 Glucose (Fingerstick) 129 mg/dL (70-99) 123 mg/dL (70-99) Phosphorus Level 3.1 mg/dL (2.6-4.7) Magnesium Level 2.5 mg/dL (1.8-2.4) Microbiology 01/23/19 Blood Culture - Preliminary, Resulted NO GROWTH AFTER 1 DAY 01/15/19 - Final, Complete 01/15/19 - Final, Complete 01/15/19 - Final, Complete 01/15/19 Gram Stain Evaluation - Final, Complete 01/15/19 Sputum Culture - Final, Complete 01/15/19 Sputum Result 1 - Final, Complete 01/08/19 Urine Culture - Final, Complete 01/08/19 Urine Culture Result 1 (ELMA) - Final, Complete Medications Current Medications Sodium Chloride 1,000 ml @ 1,000 mls/hr 1X ONCE IV Last administered on 01/07/19at 19:27; Start 01/07/19 at 19:30; Stop 01/07/19 at 20:29; Status DC Ondansetron HCl (Zofran) 4 mg 1X ONCE IV Last administered on 01/07/19at 19:28; Start 01/07/19 at 19:30; Stop 01/07/19 at 19:31; Status DC Pantoprazole Sodium (PROTONIX VIAL for IV PUSH) 80 mg 1X ONCE IVP Last administered on 01/07/19at 19:50; Start 01/07/19 at 20:00; Stop 01/07/19 at 20:01; Status DC Pantoprazole Sodium 80 mg/ Sodium Chloride 100 ml @ 10 mls/hr 1X ONCE IV Last administered on 01/07/19at 20:00; Start 01/07/19 at 20:00; Stop 01/08/19 at 05:59; Status DC Sodium Chloride 1,000 ml @ 1,000 mls/hr 1X ONCE IV Last administered on 01/07/19at 22:12; Start 01/07/19 at 21:00; Stop 01/07/19 at 21:59; Status DC Sodium Chloride 1,000 ml @ 1,000 mls/hr 1X ONCE IV Last administered on 01/07/19at 20:40; Start 01/07/19 at 20:45; Stop 01/07/19 at 21:44; Status DC Potassium Chloride/Sodium Chloride 1,000 ml @ 75 mls/hr 1X ONCE IV Last administered on 01/07/19at 21:16; Start 01/07/19 at 21:30; Stop 01/08/19 at 10:49; Status DC Vancomycin HCl (Vanco Per Pharmacy) 1 each PRN DAILY PRN MC SEE COMMENTS Last administered on 01/08/19at 00:43; Start 01/07/19 at 21:00; Stop 01/08/19 at 06:39; Status DC Piperacillin Sod/ Tazobactam Sod (Zosyn Per Pharmacy) 1 each PRN DAILY PRN MC SEE COMMENTS; Start 01/07/19 at 21:00; Stop 01/18/19 at 12:16; Status DC Piperacillin Sod/ Tazobactam Sod 3.375 gm/Sodium Chloride 50 ml @ 100 mls/hr Q6HRS IV Last administered on 01/18/19at 05:54; Start 01/07/19 at 22:00; Stop 01/18/19 at 12:16; Status DC Vancomycin HCl 2 gm/Sodium Chloride 500 ml @ 250 mls/hr 1X ONCE IV Last administered on 01/07/19at 22:11; Start 01/07/19 at 22:00; Stop 01/07/19 at 23:59; Status DC Lorazepam (Ativan Inj) 1 mg 1X ONCE IV Last administered on 01/07/19at 23:22; Start 01/07/19 at 23:30; Stop 01/07/19 at 23:31; Status DC Lorazepam (Ativan Inj) 2 mg STK-MED ONCE .ROUTE ; Start 01/07/19 at 23:20; Stop 01/07/19 at 23:21; Status DC Vancomycin HCl 1.5 gm/Sodium Chloride 500 ml @ 250 mls/hr Q12H IV ; Start 01/08/19 at 10:00; Stop 01/08/19 at 06:39; Status DC Vancomycin HCl (Vancomycin Trough Level) 1 each 1X ONCE MC ; Start 01/09/19 at 09:30; Stop 01/09/19 at 09:31; Status Cancel Ondansetron HCl (Zofran) 4 mg PRN Q6HRS PRN IVP NAUSEA/VOMITING; Start 01/08/19 at 04:00; Status Cancel Pantoprazole Sodium 80 mg/ Sodium Chloride 100 ml @ 10 mls/hr Q10H IV Last administered on 01/09/19at 02:00; Start 01/08/19 at 06:00; Stop 01/09/19 at 11:00; Status DC Multivitamins 10 ml/Thiamine HCl 100 mg/Folic Acid 1 mg/Sodium Chloride 1,011.2 ml @ 100 mls/ hr DAILY IV Last administered on 01/12/19at 10:29; Start 01/08/19 at 09:00; Stop 01/12/19 at 19:07; Status DC Lorazepam (Ativan Inj) 2 mg PRN Q1HR PRN IV For CIWA 8-14 Last administered on 01/14/19at 21:01; Start 01/08/19 at 07:15; Stop 01/23/19 at 15:08; Status DC Lorazepam (Ativan Inj) 4 mg PRN Q1HR PRN IV For CIWA 15 or greater Last administered on 01/15/19at 08:40; Start 01/08/19 at 07:15; Stop 01/23/19 at 15:08; Status DC Haloperidol Lactate (Haldol Inj) 5 mg PRN Q4HRS PRN IVP Hallucinatns,Confusn,Delirium; Start 01/08/19 at 07:15; Stop 01/23/19 at 15:08; Status DC Diphenhydramine HCl (Benadryl) 25 mg PRN Q15MIN PRN IVP EPS symptoms 2'Haldol admin; Start 01/08/19 at 07:15; Stop 01/23/19 at 15:08; Status DC Clonidine HCl (Catapres) 0.1 mg PRN Q1HR PRN PO SBP > 180 or DBP > 100, MRX3; Start 01/08/19 at 07:15; Stop 01/23/19 at 15:08; Status DC Sodium Bicarbonate (Sodium Bicarb Adult 8.4% Syr) 50 meq 1X ONCE IV Last administered on 01/08/19at 08:04; Start 01/08/19 at 08:00; Stop 01/08/19 at 08:01; Status DC Propofol 100 ml @ As Directed STK-MED ONCE IV ; Start 01/08/19 at 08:19; Stop 01/08/19 at 08:19; Status DC Succinylcholine Chloride (Anectine) 200 mg STK-MED ONCE .ROUTE ; Start 01/08/19 at 08:19; Stop 01/08/19 at 08:19; Status DC Propofol 100 ml @ As Directed STK-MED ONCE IV ; Start 01/08/19 at 08:29; Stop 01/08/19 at 08:30; Status DC Fentanyl Citrate 30 ml @ 0 mls/hr CONT PRN PRN IV PER PROTOCOL Last administered on 01/24/19at 05:41; Start 01/08/19 at 09:00 Naloxone HCl (Narcan) 0.4 mg PRN Q2MIN PRN IV SEE INSTRUCTIONS; Start 01/08/19 at 09:00; Stop 01/23/19 at 15:08; Status DC Sodium Chloride 1,000 ml @ 25 mls/hr Q24H IV Last administered on 01/23/19at 08:54; Start 01/08/19 at 08:54 Fentanyl Citrate (Fentanyl 2ml Vial) 100 mcg STK-MED ONCE .ROUTE ; Start 01/08/19 at 08:55; Stop 01/08/19 at 08:55; Status DC Octreotide Acetate 500 mcg/ Sodium Chloride 101 ml @ 0 mls/hr CONT PRN IV SEE I/O RECORD Last administered on 01/08/19at 13:56; Start 01/08/19 at 09:00; Stop 01/08/19 at 16:55; Status DC Phytonadione (Vitamin K Ampule) 10 mg 1X ONCE SQ Last administered on 01/08/19at 09:56; Start 01/08/19 at 09:15; Stop 01/08/19 at 09:16; Status DC Metoclopramide HCl (Reglan Vial) 10 mg 1X ONCE IVP Last administered on 01/08/19at 14:36; Start 01/08/19 at 11:00; Stop 01/08/19 at 11:01; Status DC Midazolam HCl (Versed) 5 mg STK-MED ONCE .ROUTE ; Start 01/08/19 at 09:00; Stop 01/08/19 at 09:01; Status DC Acetaminophen (Tylenol) 500 mg PRN Q6HRS PRN PO MILD PAIN / TEMP Last admini stered on 01/11/19at 17:46; Start 01/08/19 at 09:15; Stop 01/13/19 at 09:11; Status DC Tramadol HCl (Ultram) 50 mg PRN Q6HRS PRN PO PAIN MODERATE; Start 01/08/19 at 09:15; Stop 01/23/19 at 15:08; Status DC Morphine Sulfate (Morphine Sulfate) 2 mg PRN Q2HR PRN IV PAIN; Start 01/08/19 at 09:15; Stop 01/23/19 at 15:08; Status DC Ondansetron HCl (Zofran) 4 mg PRN Q6HRS PRN IVP NAUSEA/VOMITING, 1ST CHOICE; Start 01/08/19 at 09:15 Fentanyl Citrate (Fentanyl 2ml Vial) 100 mcg 1X ONCE IVP Last administered on 01/08/19at 09:42; Start 01/08/19 at 09:45; Stop 01/08/19 at 09:46; Status DC Midazolam HCl (Versed) 5 mg 1X ONCE IV Last administered on 01/08/19at 09:41; Start 01/08/19 at 09:45; Stop 01/08/19 at 09:46; Status DC Succinylcholine Chloride (Anectine) 200 mg 1X ONCE IV Last administered on 01/08/19at 09:41; Start 01/08/19 at 09:45; Stop 01/08/19 at 09:46; Status DC Propofol 100 ml @ 1.524 mls/ hr CONT PRN IV SEE I/O RECORD Last administered on 01/14/19at 03:56; Start 01/08/19 at 09:45; Stop 01/23/19 at 15:08; Status DC Midazolam HCl 100 ml @ 5 mls/hr CONT PRN IV SEE I/O RECORD Last administered on 01/24/19at 05:40; Start 01/08/19 at 11:15 Vecuronium [place] (Norcuron Bolus) 6 mg PRN Q4HRS PRN IV VENT ASYNCHRONY Last administered on 01/24/19at 06:24; Start 01/08/19 at 12:00 Benzocaine (Hurricaine One) 2 spray STK-MED ONCE .ROUTE ; Start 01/07/19 at 12:00; Stop 01/08/19 at 14:20; Status DC Lidocaine HCl (Xylocaine 2% Topical 5gm Tube) 5 amanda STK-MED ONCE TP ; Start 01/07/19 at 12:00; Stop 01/08/19 at 14:20; Status DC Lactobacillus Rhamnosus (Culturelle) 1 cap BID PO ; Start 01/08/19 at 21:00; Stop 01/09/19 at 09:29; Status DC Acetaminophen (Tylenol Supp) 650 mg PRN Q6HRS PRN NJ MILD PAIN / TEMP Last administered on 01/09/19at 23:44; Start 01/08/19 at 18:15; Stop 01/23/19 at 15:08; Status DC Norepinephrine Bitartrate 250 ml @ 18.938 mls/ hr CONT PRN IV SEE I/O RECORD Last administered on 01/19/19at 06:31; Start 01/09/19 at 01:45; Stop 01/19/19 at 11:30; Status DC Potassium Chloride (Klor-Con) 40 meq 1X ONCE PO Last administered on 01/09/19at 11:34; Start 01/09/19 at 09:45; Stop 01/09/19 at 09:46; Status DC Metoclopramide HCl (Reglan Vial) 10 mg PRN Q6HRS PRN IVP NAUSEA/VOMITING, 2ND CHOICE Last administered on 01/14/19at 21:01; Start 01/09/19 at 10:15; Stop 01/23/19 at 15:08; Status DC Albumin Human 100 ml @ 100 mls/hr 1X ONCE IV Last administered on 01/09/19at 10:49; Start 01/09/19 at 10:15; Stop 01/09/19 at 11:14; Status DC Lactulose (LACTULOSE 300ML for RECTAL) 200 gm Q6HRS NJ ; Start 01/09/19 at 12:00; Stop 01/09/19 at 11:04; Status DC Insulin Human Lispro (HumaLOG) 0-9 UNITS TIDWMEALS SQ Last administered on 01/21/19at 08:00; Start 01/09/19 at 12:00 Dextrose (Dextrose 50%-Water Syringe) 12.5 gm PRN Q15MIN PRN IV SEE COMMENTS Last administered on 01/18/19at 22:35; Start 01/09/19 at 10:30 Fentanyl Citrate (Fentanyl 600 Mcg/30 ml CLINICAL WRITER) 600 mcg STK-MED ONCE IV ; Start 01/08/19 at 15:25; Stop 01/09/19 at 10:27; Status DC Pantoprazole Sodium (PROTONIX VIAL for IV PUSH) 40 mg DAILYAC IVP Last administered on 01/23/19at 09:40; Start 01/10/19 at 07:30; Stop 01/23/19 at 15:08; Status DC Lactulose (Lactulose) 20 gm DAILY PO Last administered on 01/12/19at 08:24; Start 01/09/19 at 11:30; Stop 01/12/19 at 10:12; Status DC Potassium Bicarbonate (Potassium Effervescent Tablet) 40 meq BIDWMEALS FT Last administered on 01/10/19at 17:49; Start 01/10/19 at 09:00; Stop 01/11/19 at 09:20; Status DC Linezolid/Dextrose 300 ml @ 300 mls/hr Q12HR IV Last administered on 01/16/19at 08:26; Start 01/11/19 at 13:00; Stop 01/16/19 at 08:29; Status DC Perflutren Protein Type A Microsphe (Optison) 0.66 mg 1X ONCE IV ; Start 01/11/19 at 13:30; Stop 01/11/19 at 13:31; Status DC Albumin Human 100 ml @ 100 mls/hr 1X ONCE IV Last administered on 01/12/19at 08:25; Start 01/12/19 at 07:45; Stop 01/12/19 at 08:44; Status DC Lactulose (Lactulose) 20 gm PRN DAILY PRN PO constipation; Start 01/12/19 at 10:15; Stop 01/13/19 at 09:11; Status DC Acetaminophen (Tylenol) 650 mg PRN Q6HRS PRN PEG MILD PAIN / TEMP Last administered on 01/14/19at 09:11; Start 01/12/19 at 16:30; Stop 01/23/19 at 15:08; Status DC Lactulose (Lactulose) 20 gm TID PO Last administered on 01/14/19at 21:01; Start 01/13/19 at 10:00; Stop 01/23/19 at 15:08; Status DC Albumin Human 500 ml @ 125 mls/hr 1X ONCE IV Last administered on 01/13/19at 09:40; Start 01/13/19 at 10:00; Stop 01/13/19 at 13:59; Status DC Bisacodyl (Dulcolax Supp) 10 mg 1X ONCE NJ Last administered on 01/13/19at 10:14; Start 01/13/19 at 11:00; Stop 01/13/19 at 11:01; Status DC Lidocaine HCl (Buffered Lidocaine 1%) 3 ml 1X ONCE INJ Last administered on 01/13/19at 11:00; Start 01/13/19 at 11:00; Stop 01/13/19 at 11:01; Status DC Heparin Sodium (Porcine) (Heparin Sodium) 10,000 unit STK-MED ONCE .ROUTE ; Start 01/13/19 at 10:59; Stop 01/13/19 at 11:00; Status DC Darbepoetin Giorgi (ARANESP for DIALYSIS PTS) 60 mcg WEEKLYHS SQ Last administered on 01/20/19at 21:43; Start 01/13/19 at 21:00 Info (Tpn Per Pharmacy) 1 each PRN DAILY PRN MC SEE COMMENTS Last administered on 01/23/19at 13:28; Start 01/13/19 at 11:15; Stop 01/23/19 at 15:10; Status DC Sodium Chloride 1,000 ml @ 1,000 mls/hr Q1H PRN IV hypotension; Start 01/13/19 at 11:30; Stop 01/13/19 at 19:00; Status DC Albumin Human 200 ml @ 200 mls/hr 1X PRN PRN IV Hypotension; Start 01/13/19 at 11:30; Stop 01/13/19 at 17:29; Status DC Sodium Chloride 1,000 ml @ 400 mls/hr Q2H30M PRN IV PATENCY; Start 01/13/19 at 11:30; Stop 01/13/19 at 19:00; Status DC Info (PHARMACY MONITORING -- do not chart) 1 each PRN DAILY PRN MC SEE COMMENTS; Start 01/13/19 at 11:30 Info (PHARMACY MONITORING -- do not chart) 1 each PRN DAILY PRN MC SEE COMMENTS; Start 01/13/19 at 11:30; Status UNV Sodium Acetate 40 meq/Potassium Acetate 30 meq/ Calcium Gluconate 10 meq/ Multivitamins 10 ml/Chromium/ Copper/Manganese/ Seleni/Zn 1 ml/ Total Parenteral Nutrition/Amino Acids/Dextrose/ Fat Emulsion Intravenous 1,512 ml @ 63 mls/hr TPN CONT IV Last administered on 01/13/19at 21:54; Start 01/13/19 at 22:00; Stop 01/14/19 at 21:59; Status DC Multi-Ingred Cream/Lotion/Oil/ Oint (Artificial Tears Eye Ointment) 1 amanda PRN Q1HR PRN OU DRY EYE Last administered on 01/13/19at 17:14; Start 01/13/19 at 16:45 Docusate Sodium (Enemeez) 283 mg 1X ONCE NJ Last administered on 01/13/19at 17:14; Start 01/13/19 at 16:45; Stop 01/13/19 at 16:47; Status DC Levofloxacin/ Dextrose 100 ml @ 100 mls/hr Q24H IV Last administered on 01/23/19at 09:37; Start 01/14/19 at 09:00; Stop 01/23/19 at 15:07; Status DC Metoclopramide HCl (Reglan Vial) 5 mg 1X ONCE IVP Last administered on 01/14/19at 10:51; Start 01/14/19 at 10:30; Stop 01/14/19 at 10:31; Status DC Dexmedetomidine HCl 400 mcg/ Sodium Chloride 100 ml @ 0 mls/hr CONT PRN IV AGITATION Last administered on 01/24/19at 07:36; Start 01/14/19 at 11:30 Sodium Chloride 1,000 ml @ 1,000 mls/hr Q1H PRN IV hypotension; Start 01/14/19 at 11:26; Stop 01/14/19 at 17:25; Status DC Albumin Human 200 ml @ 200 mls/hr 1X PRN PRN IV Hypotension; Start 01/14/19 at 11:30; Stop 01/14/19 at 17:29; Status DC Sodium Chloride 1,000 ml @ 400 mls/hr Q2H30M PRN IV PATENCY; Start 01/14/19 at 11:26; Stop 01/14/19 at 23:25; Status DC Info (PHARMACY MONITORING -- do not chart) 1 each PRN DAILY PRN MC SEE COMMENTS; Start 01/14/19 at 11:30; Status UNV Info (PHARMACY MONITORING -- do not chart) 1 each PRN DAILY PRN MC SEE COMMENTS; Start 01/14/19 at 11:30; Status UNV Sodium Chloride 30 meq/Sodium Acetate 40 meq/ Potassium Acetate 30 meq/Calcium Gluconate 10 meq/ Multivitamins 10 ml/Chromium/ Copper/Manganese/ Seleni/Zn 1 ml/ Total Parenteral Nutrition/Amino Acids/Dextrose/ Fat Emulsion Intravenous 1,512 ml @ 63 mls/hr TPN CONT IV Last administered on 01/15/19at 00:05; Start 01/14/19 at 22:00; Stop 01/15/19 at 21:59; Status DC Artificial Tears (Artificial Tears) 1 drop Q4H PRN OU DRY EYE Last administered on 01/14/19at 16:43; Start 01/14/19 at 15:30 Sodium Bicarbonate (Sodium Bicarb Adult 8.4% Syr) 50 meq STK-MED ONCE .ROUTE ; Start 01/15/19 at 08:25; Stop 01/15/19 at 08:25; Status DC Sodium Bicarbonate (Sodium Bicarb Adult 8.4% Syr) 100 meq 1X ONCE IV Last administered on 01/15/19at 08:31; Start 01/15/19 at 08:30; Stop 01/15/19 at 08:31; Status DC Sodium Chloride 40 meq/Sodium Acetate 40 meq/ Potassium Acetate 10 meq/Calcium Gluconate 10 meq/ Multivitamins 10 ml/Chromium/ Copper/Manganese/ Seleni/Zn 1 ml/ Total Parenteral Nutrition/Amino Acids/Dextrose/ Fat Emulsion Intravenous 1,512 ml @ 63 mls/hr TPN CONT IV ; Start 01/15/19 at 22:00; Stop 01/15/19 at 11:06; Status DC Vasopressin 40 unit/Dextrose 102 ml @ 6 mls/hr CONT PRN IV SEE I/O RECORD Last administered on 01/20/19at 19:31; Start 01/15/19 at 10:00; Stop 01/23/19 at 15:08; Status DC Sodium Chloride 1,000 ml @ 1,000 mls/hr Q1H PRN IV hypotension; Start 01/15/19 at 10:00; Stop 01/15/19 at 15:59; Status DC Albumin Human 200 ml @ 200 mls/hr 1X PRN PRN IV Hypotension Last administered on 01/15/19at 11:07; Start 01/15/19 at 10:00; Stop 01/15/19 at 15:59; Status DC Sodium Chloride 1,000 ml @ 400 mls/hr Q2H30M PRN IV PATENCY; Start 01/15/19 at 10:00; Stop 01/15/19 at 21:59; Status DC Info (PHARMACY MONITORING -- do not chart) 1 each PRN DAILY PRN MC SEE COMMENTS; Start 01/15/19 at 10:00; Stop 01/15/19 at 10:57; Status DC Info (PHARMACY MONITORING -- do not chart) 1 each PRN DAILY PRN MC SEE COMMENTS; Start 01/15/19 at 10:00; Stop 01/15/19 at 10:57; Status DC Sodium Chloride 40 meq/Sodium Acetate 40 meq/ Potassium Acetate 10 meq/Calcium Gluconate 10 meq/ Multivitamins 10 ml/Chromium/ Copper/Manganese/ Seleni/Zn 1 ml/ Thiamine HCl 100 mg/Total Parenteral Nutrition/Amino Acids/Dextrose/ Fat Emulsion Intravenous 1,512 ml @ 63 mls/hr TPN CONT IV ; Start 01/15/19 at 22:00; Stop 01/15/19 at 14:18; Status DC Potassium Chloride 20 meq/ Bicarbonate Dialysis Soln w/ out KCl 5,010 ml @ 1,000 mls/hr Q5H1M IV Last administered on 01/15/19at 15:40; Start 01/15/19 at 14:00; Stop 01/15/19 at 19:00; Status DC Potassium Chloride 20 meq/ Bicarbonate Dialysis Soln w/ out KCl 5,010 ml @ 1,000 mls/hr Q5H1M IV Last administered on 01/15/19at 15:50; Start 01/15/19 at 14:00; Stop 01/15/19 at 19:00; Status DC Potassium Chloride 20 meq/ Bicarbonate Dialysis Soln w/ out KCl 5,010 ml @ 1,000 mls/hr Q5H1M IV Last administered on 01/15/19at 15:50; Start 01/15/19 at 14:00; Stop 01/15/19 at 19:00; Status DC Albumin Human 100 ml @ 100 mls/hr Q6HRS IV Last administered on 01/23/19at 11:51; Start 01/15/19 at 14:00; Stop 01/23/19 at 15:07; Status DC Potassium Phosphate 20 mmol/ Sodium Chloride 256.6667 ml @ 128.... PRN Q6HRS PRN IV FOR PO4 < 2.5 Last administered on 01/22/19at 14:28; Start 01/15/19 at 14:00; Stop 01/23/19 at 15:08; Status DC Sodium Chloride 40 meq/Sodium Acetate 40 meq/ Calcium Gluconate 10 meq/ Multivitamins 10 ml/Chromium/ Copper/Manganese/ Seleni/Zn 1 ml/ Thiamine HCl 100 mg/Total Parenteral Nutrition/Amino Acids/Dextrose/ Fat Emulsion Intravenous 1,512 ml @ 63 mls/hr TPN CONT IV Last administered on 01/15/19at 21:45; Start 01/15/19 at 22:00; Stop 01/16/19 at 21:59; Status DC Potassium Chloride 20 meq/ Bicarbonate Dialysis Soln w/ out KCl 5,010 ml @ 500 mls/hr Q10H2M IV Last administered on 01/17/19at 10:43; Start 01/15/19 at 19:01; Stop 01/17/19 at 15:00; Status DC Potassium Chloride 20 meq/ Bicarbonate Dialysis Soln w/ out KCl 5,010 ml @ 1,200 mls/hr Q4H11M IV Last administered on 01/17/19at 10:36; Start 01/15/19 at 19:01; Stop 01/17/19 at 15:00; Status DC Potassium Chloride 20 meq/ Bicarbonate Dialysis Soln w/ out KCl 5,010 ml @ 1,200 mls/hr Q4H11M IV Last administered on 01/17/19at 00:17; Start 01/15/19 at 19:00; Stop 01/17/19 at 15:00; Status DC Daptomycin 500 mg/ Sodium Chloride 50 ml @ 100 mls/hr Q48H IV Last administered on 01/20/19at 09:16; Start 01/16/19 at 09:00; Stop 01/22/19 at 08:12; Status DC Sodium Chloride 60 meq/Sodium Acetate 40 meq/ Calcium Gluconate 10 meq/ Multivitamins 10 ml/Chromium/ Copper/Manganese/ Seleni/Zn 1 ml/ Thiamine HCl 100 mg/Total Parenteral Nutrition/Amino Acids/Dextrose/ Fat Emulsion Intravenous 1,512 ml @ 63 mls/hr TPN CONT IV Last administered on 01/16/19at 22:00; Start 01/16/19 at 22:00; Stop 01/18/19 at 10:50; Status DC Sodium Chloride 80 meq/Calcium Gluconate 10 meq/ Multivitamins 10 ml/Chromium/ Copper/Manganese/ Seleni/Zn 1 ml/ Thiamine HCl 100 mg/Total Parenteral Nutrition/Amino Acids/Dextrose/ Fat Emulsion Intravenous 1,512 ml @ 63 mls/hr TPN CONT IV Last administered on 01/17/19at 21:52; Start 01/17/19 at 22:00; Stop 01/18/19 at 21:59; Status DC Potassium Chloride 20 meq/ Sodium Bicarbonate 40 meq/Bicarbonate Dialysis Soln w/ out KCl 5,050 ml @ 500 mls/hr Q10H6M IV Last administered on 01/18/19at 08:17; Start 01/17/19 at 15:00; Stop 01/18/19 at 18:00; Status DC Potassium Chloride 20 meq/ Sodium Bicarbonate 40 meq/Bicarbonate Dialysis Soln w/ out KCl 5,050 ml @ 1,200 mls/hr Q4H13M IV Last administered on 01/18/19at 06:01; Start 01/17/19 at 15:00; Stop 01/18/19 at 09:51; Status DC Potassium Chloride 20 meq/ Sodium Bicarbonate 40 meq/Bicarbonate Dialysis Soln w/ out KCl 5,050 ml @ 1,200 mls/hr Q4H13M IV Last administered on 01/18/19at 06:01; Start 01/17/19 at 15:00; Stop 01/18/19 at 09:51; Status DC Potassium Phosphate 20 mmol/ Sodium Chloride 256.6667 ml @ 128.... ONCE ONCE IV Last administered on 01/17/19at 18:21; Start 01/17/19 at 17:45; Stop 03/19/18 at 19:44; Status DC Calcium Chloride 12.5 meq/ Magnesium Sulfate 2.5 meq/Potassium Chloride 10 meq/ Sodium Bicarbonate 40 meq/Bicarbonate Dialysis Soln w/ out KCl 5,054.5443 ml @ 1,200 mls/hr Q4H13M IV Last administered on 01/19/19at 03:20; Start 01/18/19 at 10:00; Stop 01/19/19 at 07:47; Status DC Calcium Chloride 12.5 meq/ Magnesium Sulfate 2.5 meq/Potassium Chloride 10 meq/ Sodium Bicarbonate 40 meq/Bicarbonate Dialysis Soln w/ out KCl 5,054.5443 ml @ 1,200 mls/hr Q4H13M IV Last administered on 01/19/19at 03:21; Start 01/18/19 at 10:00; Stop 01/19/19 at 07:47; Status DC Calcium Chloride 12.5 meq/ Magnesium Sulfate 2.5 meq/Potassium Chloride 10 meq/ Sodium Bicarbonate 40 meq/Bicarbonate Dialysis Soln w/ out KCl 5,054.5443 ml @ 500 mls/hr Q10H7M IV Last administered on 01/19/19at 05:16; Start 01/18/19 at 18:00; Stop 01/19/19 at 07:48; Status DC Meropenem 500 mg/ Sodium Chloride 50 ml @ 100 mls/hr Q8HRS IV Last administered on 01/19/19at 06:02; Start 01/18/19 at 14:00; Stop 01/19/19 at 09:24; Status DC Sodium Chloride 80 meq/Calcium Gluconate 10 meq/ Multivitamins 10 ml/Chromium/ Copper/Manganese/ Seleni/Zn 1 ml/ Thiamine HCl 100 mg/Total Parenteral Nutrition/Amino Acids/Dextrose/ Fat Emulsion Intravenous 1,512 ml @ 63 mls/hr TPN CONT IV Last administered on 01/18/19at 21:37; Start 01/18/19 at 22:00; Stop 01/19/19 at 21:59; Status DC Epinephrine HCl 4 mg/Sodium Chloride 254 ml @ 41.822 mls/ hr CONT PRN IV SEE I/O RECORD; Start 01/18/19 at 16:15; Stop 01/19/19 at 18:00; Status DC Methylprednisolone Sodium Succinate (SOLU-Medrol 125MG VIAL) 125 mg 1X ONCE IV Last administered on 01/18/19at 16:30; Start 01/18/19 at 16:30; Stop 01/18/19 at 16:31; Status DC Methylprednisolone Sodium Succinate (SOLU-Medrol 125MG VIAL) 125 mg STK-MED ONCE .ROUTE ; Start 01/18/19 at 16:26; Stop 01/18/19 at 16:26; Status DC Calcium Chloride 12.5 meq/ Potassium Chloride 5 meq/ Sodium Bicarbonate 40 meq/Bicarbonate Dialysis Soln w/ out KCl 5,051.4286 ml @ 1,200 mls/hr Q4H13M IV Last administered on 01/20/19at 11:31; Start 01/19/19 at 08:00; Stop 01/20/19 at 11:30; Status DC Calcium Chloride 12.5 meq/ Potassium Chloride 5 meq/ Sodium Bicarbonate 40 meq/Bicarbonate Dialysis Soln w/ out KCl 5,051.4286 ml @ 1,200 mls/hr Q4H13M IV Last administered on 01/20/19at 11:30; Start 01/19/19 at 08:00; Stop 01/20/19 at 11:30; Status DC Calcium Chloride 12.5 meq/ Potassium Chloride 5 meq/ Sodium Bicarbonate 40 meq/Bicarbonate Dialysis Soln w/ out KCl 5,051.4286 ml @ 500 mls/hr Q10H7M IV Last administered on 01/20/19at 03:09; Start 01/19/19 at 15:00; Stop 01/20/19 at 11:30; Status DC Meropenem 1 gm/ Sodium Chloride 100 ml @ 200 mls/hr Q12H IV Last administered on 01/19/19at 14:36; Start 01/19/19 at 14:00; Stop 01/19/19 at 16:00; Status DC Albumin Human 100 ml @ As Directed STK-MED ONCE IV ; Start 01/19/19 at 10:44; Stop 01/19/19 at 10:44; Status DC Norepinephrine Bitartrate 32 mg/ Sodium Chloride 250 ml @ 7 mls/hr CONT PRN IV SEE I/O RECORD Last administered on 01/24/19at 03:39; Start 01/19/19 at 11:30 Sodium Chloride 80 meq/Calcium Gluconate 10 meq/ Multivitamins 10 ml/Chromium/ Copper/Manganese/ Seleni/Zn 1 ml/ Thiamine HCl 100 mg/Total Parenteral Nutrit ion/Amino Acids/Dextrose/ Fat Emulsion Intravenous 1,200 ml @ 50 mls/hr TPN CONT IV Last administered on 01/19/19at 21:30; Start 01/19/19 at 22:00; Stop 01/20/19 at 21:59; Status DC Epinephrine HCl 8 mg/Sodium Chloride 258 ml @ 20.9 mls/hr CONT PRN IV SEE I/O RECORD; Start 01/19/19 at 14:15; Stop 01/23/19 at 15:07; Status DC Meropenem 1 gm/ Sodium Chloride 50 ml @ 100 mls/hr Q12H IV Last administered on 01/23/19at 09:36; Start 01/20/19 at 02:00; Stop 01/23/19 at 15:08; Status DC Albumin Human 100 ml @ As Directed STK-MED ONCE IV ; Start 01/19/19 at 17:00; Stop 01/19/19 at 17:00; Status DC Potassium Phosphate 20 mmol/ Sodium Chloride 256.6667 ml @ 128.... 1X ONCE IV Last administered on 01/20/19at 06:19; Start 01/20/19 at 06:15; Stop 01/20/19 at 08:14; Status DC Phytonadione 10 mg/Dextrose 51 ml @ 102 mls/hr 1X ONCE IV Last administered on 01/20/19at 11:07; Start 01/20/19 at 10:45; Stop 01/20/19 at 11:14; Status DC Calcium Chloride 12.5 meq/ Potassium Chloride 5 meq/ Bicarbonate Dialysis Soln w / out KCl 5,011.4286 ml @ 1,200 mls/hr Q4H11M IV Last administered on 01/22/19at 16:26; Start 01/20/19 at 11:00; Stop 01/22/19 at 20:00; Status DC Calcium Chloride 12.5 meq/ Potassium Chloride 5 meq/ Bicarbonate Dialysis Soln w/ out KCl 5,011.4286 ml @ 1,200 mls/hr Q4H11M IV ; Start 01/20/19 at 11:30; Stop 01/20/19 at 10:31; Status DC Calcium Chloride 12.5 meq/ Potassium Chloride 5 meq/ Bicarbonate Dialysis Soln w/ out KCl 5,011.4286 ml @ 1,200 mls/hr Q4H11M IV Last administered on 01/22/19at 11:30; Start 01/20/19 at 10:30; Stop 01/22/19 at 20:00; Status DC Calcium Chloride 12.5 meq/ Potassium Chloride 5 meq/ Bicarbonate Dialysis Soln w/ out KCl 5,011.4286 ml @ 500 mls/hr Q10H2M IV Last administered on 01/22/19at 07:59; Start 01/20/19 at 11:30; Stop 01/22/19 at 16:21; Status DC Sodium Chloride 80 meq/Calcium Gluconate 20 meq/ Multivitamins 10 ml/Chromium/ Copper/Manganese/ Seleni/Zn 1 ml/ Thiamine HCl 100 mg/Total Parenteral Nutrition/Amino Acids/Dextrose/ Fat Emulsion Intravenous 1,200 ml @ 50 mls/hr TPN CONT IV Last administered on 01/20/19at 21:43; Start 01/20/19 at 22:00; Stop 01/21/19 at 21:59; Status DC Potassium Phosphate 40 mmol/ Sodium Chloride 263.3333 ml @ 62.5 mls/hr 1X ONCE IV Last administered on 01/20/19at 16:03; Start 01/20/19 at 16:00; Stop 01/20/19 at 20:12; Status DC Sodium Phosphate 40 mmol/Dextrose 263.3333 ml @ 62.5 mls/hr 1X ONCE IV Last administered on 01/21/19at 09:26; Start 01/21/19 at 09:00; Stop 01/21/19 at 13:13; Status DC Sodium Chloride 80 meq/Calcium Gluconate 25 meq/ Multivitamins 10 ml/Chromium/ Copper/Manganese/ Seleni/Zn 1 ml/ Thiamine HCl 100 mg/Total Parenteral Nutrition/Amino Acids/Dextrose/ Fat Emulsion Intravenous 1,512 ml @ 63 mls/hr TPN CONT IV Last administered on 01/21/19at 22:09; Start 01/21/19 at 22:00; Stop 01/22/19 at 21:59; Status DC Epinephrine HCl (EPINEPHrine SYRINGE) 1 mg STK-MED ONCE .ROUTE ; Start 01/19/19 at 12:00; Stop 01/21/19 at 15:55; Status DC Sodium Bicarbonate (Sodium Bicarb Adult 8.4% Syr) 50 meq STK-MED ONCE .ROUTE ; Start 01/19/19 at 12:00; Stop 01/21/19 at 15:55; Status DC Magnesium Sulfate 50 ml @ 25 mls/hr 1X ONCE IV Last administered on 01/21/19at 16:24; Start 01/21/19 at 16:30; Stop 01/21/19 at 18:29; Status DC Potassium Phosphate 40 mmol/ Sodium Chloride 263.3333 ml @ 62.5 mls/hr 1X ONCE IV Last administered on 01/21/19at 22:00; Start 01/21/19 at 21:45; Stop 01/22/19 at 01:57; Status DC Potassium Phosphate 20 mmol/ Sodium Chloride 256.6667 ml @ 62.5 mls/hr 1X ONCE IV Last administered on 01/22/19at 06:22; Start 01/22/19 at 06:30; Stop 01/22/19 at 10:36; Status DC Sodium Chloride 80 meq/Calcium Gluconate 25 meq/ Multivitamins 10 ml/Chromium/ Copper/Manganese/ Seleni/Zn 1 ml/ Thiamine HCl 100 mg/Total Parenteral Nutrition/Amino Acids/Dextrose/ Fat Emulsion Intravenous 1,512 ml @ 63 mls/hr TPN CONT IV Last administered on 01/22/19at 22:03; Start 01/22/19 at 22:00; Stop 01/23/19 at 15:08; Status DC Potassium Chloride 15 meq/ Bicarbonate Dialysis Soln w/ out KCl 5,007.5 ml @ 500 mls/ hr Q10H1M IV Last administered on 01/24/19at 00:11; Start 01/22/19 at 17:00 Potassium Chloride 15 meq/ Bicarbonate Dialysis Soln w/ out KCl 5,007.5 ml @ 1,200 mls/ hr Q4H11M IV Last administered on 01/24/19at 08:59; Start 01/22/19 at 20:01 Potassium Chloride 15 meq/ Bicarbonate Dialysis Soln w/ out KCl 5,007.5 ml @ 1,200 mls/ hr Q4H11M IV Last administered on 01/24/19at 08:58; Start 01/22/19 at 20:01 Magnesium Sulfate 100 ml @ 50 mls/hr DAILY IV Last administered on 01/22/19at 22:12; Start 01/22/19 at 22:30; Stop 01/23/19 at 15:08; Status DC Daptomycin 490 mg/ Sodium Chloride 50 ml @ 100 mls/hr Q48H IV Last administered on 01/23/19at 09:40; Start 01/23/19 at 09:00; Stop 01/23/19 at 15:07; Status DC Micafungin Sodium 100 mg/Dextrose 100 ml @ 100 mls/hr Q24H IV ; Start 01/23/19 at 10:00; Stop 01/23/19 at 15:08; Status DC Sodium Chloride 80 meq/Calcium Gluconate 25 meq/ Multivitamins 10 ml/Chromium/ Copper/Manganese/ Seleni/Zn 1 ml/ Thiamine HCl 100 mg/Total Parenteral Nutrition/Amino Acids/Dextrose/ Fat Emulsion Intravenous 1,512 ml @ 63 mls/hr TPN CONT IV ; Start 01/23/19 at 22:00; Stop 01/23/19 at 15:08; Status DC Naloxone HCl (Narcan) 0.4 mg PRN Q2MIN PRN IV SEE INSTRUCTIONS; Start 01/23/19 at 14:15; Stop 01/23/19 at 15:08; Status DC Sodium Chloride 1,000 ml @ 25 mls/hr Q24H IV Last administered on 01/23/19at 14:13; Start 01/23/19 at 14:13 Lorazepam (Ativan Inj) 2 mg PRN Q2HRS PRN IVP ANXIETY / AGITATION; Start 01/24/19 at 11:30 Morphine Sulfate 30 ml @ 0 mls/hr CONT PRN IV PER PROTOCOL; Start 01/24/19 at 11:30 Morphine Sulfate (Morphine Sulfate) 4 mg PRN Q2HR PRN IV PAIN; Start 01/24/19 at 09:30 Lorazepam (Ativan Inj) 4 mg 1X ONCE IVP ; Start 01/24/19 at 11:30; Stop 01/24/19 at 11:31 Vitals/I & O Vital Sign - Last 24 Hours 01/23/19 01/23/19 01/23/19 01/23/19 11:00 11:28 11:30 12:00 Temp 97.8 97.8 Pulse 100 92 100 Resp 24 24 B/P (MAP) 94/46 (62) 104/46 (65) 109/39 (62) Pulse Ox 95 93 94 95 O2 Delivery Ventilator Ventilator Ventilator Ventilator 01/23/19 01/23/19 01/23/19 01/23/19 12:00 12:04 12:30 12:32 Pulse 100 Resp 24 B/P (MAP) 107/40 (62) Pulse Ox 96 97 96 O2 Delivery Mechanical Ventilator Ventilator Ventilator 01/23/19 01/23/19 01/23/19 01/23/19 12:34 13:00 13:00 13:30 Pulse 100 104 99 Resp 24 24 B/P (MAP) 110/45 (66) 119/50 (73) Pulse Ox 94 93 94 97 O2 Delivery Ventilator Ventilator Ventilator 01/23/19 01/23/19 01/23/19 01/23/19 14:00 15:00 15:14 16:00 Temp 100.0 100.0 Pulse 106 100 100 Resp 25 24 B/P (MAP) 96/32 (53) 113/38 (63) 105/48 (67) Pulse Ox 97 96 96 96 O2 Delivery Ventilator Ventilator Ventilator Ventilator O2 Flow Rate 24.0 01/23/19 01/23/19 01/23/19 01/23/19 16:00 16:56 17:00 17:56 Pulse 102 Resp 24 B/P (MAP) 114/44 (67) Pulse Ox 97 97 97 O2 Delivery Mechanical Ventilator Ventilator Ventilator O2 Flow Rate 24.0 01/23/19 01/23/19 01/23/19 01/23/19 18:00 18:26 19:00 20:00 Temp 98.6 98.6 Pulse 108 102 105 Resp 25 24 24 26 B/P (MAP) 118/54 (75) 93/40 (57) 107/40 (62) Pulse Ox 99 97 95 O2 Delivery Ventilator Ventilator Ventilator 01/23/19 01/23/19 01/23/19 01/23/19 20:00 20:08 21:00 22:00 Pulse 103 101 Resp 24 24 B/P (MAP) 97/37 (57) 89/38 (55) Pulse Ox 97 95 97 O2 Delivery Mechanical Ventilator Ventilator Ventilator Ventilator O2 Flow Rate 24.0 01/23/19 01/23/19 01/23/19 01/24/19 23:00 23:50 23:53 00:00 Temp 99.4 99.4 Pulse 105 110 Resp 24 24 24 B/P (MAP) 96/40 (58) 100/42 (61) Pulse Ox 97 97 96 O2 Delivery Ventilator Ventilator Ventilator 01/24/19 01/24/19 01/24/19 01/24/19 00:23 01:00 01:00 01:23 Pulse 104 105 Resp 24 25 B/P (MAP) 96/40 (58) 92/40 (57) Pulse Ox 96 95 97 O2 Delivery Ventilator Ventilator Ventilator 01/24/19 01/24/19 01/24/19 01/24/19 03:00 03:53 04:00 04:00 Temp 99.6 99.6 Pulse 102 103 Resp 25 24 B/P (MAP) 86/40 (55) 98/45 (62) Pulse Ox 96 96 96 O2 Delivery Ventilator Ventilator Mechanical Ventilator Ventilator O2 Flow Rate 24.0 01/24/19 01/24/19 01/24/19 01/24/19 05:00 05:35 05:41 06:00 Pulse 107 108 Resp 24 27 29 B/P (MAP) 97/41 (59) 114/47 (69) Pulse Ox 97 96 85 O2 Delivery Ventilator Ventilator Ventilator 01/24/19 01/24/19 01/24/19 01/24/19 06:11 06:15 07:40 07:45 Pulse 114 Resp 24 24 B/P (MAP) 116/50 (72) Pulse Ox 93 94 O2 Delivery Ventilator Ventilator Mechanical Ventilator O2 Flow Rate 24.0 01/24/19 01/24/19 01/24/19 01/24/19 07:45 08:00 09:00 10:00 Temp 98.6 98.6 Pulse 109 108 105 110 Resp 24 24 24 23 B/P (MAP) 92/30 (50) 86/36 (53) 92/36 (54) 77/35 (49) Pulse Ox 94 94 95 98 O2 Delivery Ventilator Ventilator Ventilator Ventilator 01/24/19 10:08 Pulse Ox 98 O2 Delivery Ventilator Intake and Output 01/23/19 01/23/19 01/24/19 15:00 23:00 07:00 Intake Total 2067 ml 944.5 ml Output Total 0 ml 50 ml 3 ml Balance 0 ml 2017 ml 941.5 ml MAIK GUNN MD Jan 24, 2019 10:43
[2019-01-24] MEDS ORDERED: MORPHINE SULFATE/PF 30 ML IV PRN (11:30)
--- NOTE | 2019-01-24 11:40 | NUR ---
Pt extubated at this time, placed on 4LNC for comfort. Family and registered nurse at the bedside,
--- NOTE | 2019-01-24 11:46 | NUR ---
Pt has no pulse, no blood pressure, no respirations. Pronounced at this time.
--- NOTE | 2019-01-24 11:57 | PDOC3 ---
Discharge Summary Visit Information Date of Admission: Jan 07, 2019 Date of Discharge: Jan 24, 2019 Admitting Diagnosis Comment: Acute respiratory falure, IPPV - 01.08, fluid overload vs Atypical infection VS ARDS from aspiration HEMATEMESIS in A HEAVY DRINKER -Atrophic gastritis, ?MW tear BUT NO ACTIVE GIB - s.po STAT EGD 01/08 SEVERE PCM - albumin 1,7 -s/p albumin 01/09 - off pressors by 01/10 MInimal ascites - by US and CT HYPOTENSION, s/p, pressors standby, albumin, blood products if needed Coagulopathy - s/p vit K, HEPATIC enceph - ammonia midly high 60-90s - lactulose,MO HIGH residuals TRAMSAMINITIS with ELEVATED TB- per GI (TB 9), AST 300s-500s HEp C antibody positive LEft leg bruise, in this coagulopathic anemic pt sec to fall 2 weeks ago - monitor ELEVATED AGAP acidosis NEw ESRD HD - Sat before ? DIC Acute precip drop hgb 01/21 Final Diagnosis Problems Medical Problems: (1) Acute hepatic encephalopathy Status: Acute (2) Acute upper GI bleed Status: Acute (3) Ascites Status: Acute (4) Hypokalemia Status: Acute (5) Multiple organ system failure Status: Acute (6) Severe sepsis with acute organ dysfunction Status: Acute Brief Hospital Course Allergies Allergies Coded Allergies Type Severity Reaction Last Updated Verified No Known Drug Allergies 01/07/19 No Vital Signs Vital Signs Date Time Temp Pulse Resp B/P (MAP) Pulse Ox O2 Delivery O2 Flow Rate FiO2 01/24/19 10:08 98 Ventilator 01/24/19 10:00 110 23 77/35 (49) 01/24/19 07:45 98.6 98.6 01/24/19 07:45 24.0 Lab Results Laboratory Tests Test 01/22/19 12:13 01/22/19 13:04 01/22/19 16:58 01/22/19 21:00 Glucose (Fingerstick) 112 mg/dL (70-99) 113 mg/dL (70-99) Hemoglobin 7.7 g/dL (13.0-17.5) Hematocrit 22.2 % (39.0-53.0) Mean Corpuscular Hemoglobin Concent 35 g/dL (31-37) Sodium Level 141 mmol/L (136-145) 139 mmol/L (136-145) Potassium Level 3.8 mmol/L (3.5-5.1) 4.0 mmol/L (3.5-5.1) Chloride Level 102 mmol/L (98-107) 101 mmol/L (98-107) Carbon Dioxide Level 25 mmol/L (21-32) 26 mmol/L (21-32) Anion Gap 14 (6-14) 12 (6-14) Blood Urea Nitrogen 40 mg/dL (8-26) 40 mg/dL (8-26) Creatinine 1.4 mg/dL (0.7-1.3) 1.4 mg/dL (0.7-1.3) Estimated GFR (Cockcroft-Gault) 56.7 56.7 Glucose Level 114 mg/dL (70-99) 126 mg/dL (70-99) Calcium Level 8.2 mg/dL (8.5-10.1) 8.5 mg/dL (8.5-10.1) Phosphorus Level 2.3 mg/dL (2.6-4.7) 2.9 mg/dL (2.6-4.7) Magnesium Level 1.8 mg/dL (1.8-2.4) 1.7 mg/dL (1.8-2.4) Lactic Acid Level 4.9 mmol/L (0.4-2.0) Test 01/23/19 05:00 01/23/19 07:45 01/23/19 09:10 01/23/19 13:39 White Blood Count 33.7 x10^3/uL (4.0-11.0) Red Blood Count 2.35 x10^6/uL (4.30-5.70) Hemoglobin 7.6 g/dL (13.0-17.5) Hematocrit 22.7 % (39.0-53.0) Mean Corpuscular Volume 97 fL (79-100) Mean Corpuscular Hemoglobin 33 pg (25-35) Mean Corpuscular Hemoglobin Concent 34 g/dL (31-37) Red Cell Distribution Width 18.4 % (11.5-14.5) Platelet Count 57 x10^3/uL (140-400) Neutrophils (%) (Auto) 72 % (31-73) Lymphocytes (%) (Auto) 19 % (24-48) Monocytes (%) (Auto) 8 % (0-9) Eosinophils (%) (Auto) 0 % (0-3) Basophils (%) (Auto) 1 % (0-3) Neutrophils # (Auto) 24.1 x10^3/uL (1.8-7.7) Lymphocytes # (Auto) 6.5 x10^3/uL (1.0-4.8) Monocytes # (Auto) 2.7 x10^3/uL (0.0-1.1) Eosinophils # (Auto) 0.1 x10^3/uL (0.0-0.7) Basophils # (Auto) 0.4 x10^3/uL (0.0-0.2) Segmented Neutrophils % 50 % (35-66) Band Neutrophils % 23 % (0-9) Lymphocytes % 15 % (24-48) Monocytes % 3 % (0-10) Myelocytes % 9 % (0-0) Nucleated Red Blood Cells 3 Toxic Granulation Present Toxic Vacuolation Present Platelet Estimate Decreased (ADEQUATE) Large Platelets Present Anisocytosis Slight Sodium Level 139 mmol/L (136-145) Potassium Level 4.6 mmol/L (3.5-5.1) Chloride Level 101 mmol/L (98-107) Carbon Dioxide Level 23 mmol/L (21-32) Anion Gap 15 (6-14) Blood Urea Nitrogen 39 mg/dL (8-26) Creatinine 1.4 mg/dL (0.7-1.3) Estimated GFR (Cockcroft-Gault) 56.7 Glucose Level 125 mg/dL (70-99) Calcium Level 8.5 mg/dL (8.5-10.1) Phosphorus Level 4.5 mg/dL (2.6-4.7) Magnesium Level 2.8 mg/dL (1.8-2.4) Albumin 3.7 g/dL (3.4-5.0) O2 Saturation 87 % (92-99) Arterial Blood pH 7.24 (7.35-7.45) Arterial Blood pH (Temp corrected) 7.24 Arterial Blood pCO2 at Patient Temp 49 mmHg (35-46) Arterial Blood pCO2 (Temp correct) 50 mmHg Arterial Blood pO2 at Patient Temp 63 mmHg (85-108) Arterial Blood pO2 (Temp corrected) 65 mmHg Arterial Blood HCO3 21 mmol/L (21-28) Arterial Blood Base Excess -6 mmol/L (-3-3) FiO2 100 Lactic Acid Level 5.7 mmol/L (0.4-2.0) Glucose (Fingerstick) 129 mg/dL (70-99) Test 01/23/19 13:50 01/23/19 18:20 Phosphorus Level 3.1 mg/dL (2.6-4.7) Magnesium Level 2.5 mg/dL (1.8-2.4) Glucose (Fingerstick) 123 mg/dL (70-99) Laboratory Tests Test 01/23/19 13:39 01/23/19 13:50 01/23/19 18:20 Glucose (Fingerstick) 129 mg/dL (70-99) 123 mg/dL (70-99) Phosphorus Level 3.1 mg/dL (2.6-4.7) Magnesium Level 2.5 mg/dL (1.8-2.4) Brief Hospital Course Mr. Ballard is a 38 old heavy alcoholic who arrived awake alert but straight to ICU bec of hematemesis, COURSE remarkable for needing intubation bec of respi distress, tachypnea etc, Then followed by multi organ failure, new CRRT, oliguria, HYPOTENSIVE on dual pressors for days, persisent enceph,anemai needing BT, DIC possibly even with dropping platelets, high INR, HIgh BILI< low fibrinogen co managed with heme onc, MAde DNR appropriately by family after all of us mentioning poor prognosis, and upon withdrawal of care today, NOT VERY LONG AFTER,. Dc summ and cert c.o me pls Dw [employer] TE[employer] 2 notes today Discharge Information Condition at Discharge: / MAIK GUNN MD Jan 24, 2019 11:57
== END 2019-01-24 11:46 | disposition expired | DRG 870 ==
LOC: ER 18:51 → ED HOLD 20:45 → 1 WEST ICU 23:41
PROVIDERS: ADMIT Internal Medicine; ATTEND Internal Medicine
PROC: 5A1955Z Respiratory Ventilation, Greater than 96 Consecutive Hours (ICD-10-PCS; 2019-01-08)
PROC: 0BH17EZ Insertion of Endotracheal Airway into Trachea, Via Natural or Artificial Opening (ICD-10-PCS; 2019-01-08)
PROC: 0DJ08ZZ Inspection of Upper Intestinal Tract, Via Natural or Artificial Opening Endoscopic (ICD-10-PCS; principal; 2019-01-08 15:30)
PROC: 02H633Z Insertion of Infusion Device into Right Atrium, Percutaneous Approach (ICD-10-PCS; 2019-01-13)
PROC: B548ZZA Ultrasonography of Superior Vena Cava, Guidance (ICD-10-PCS; 2019-01-13)
PROC: 30233K1 Transfusion of Nonautologous Frozen Plasma into Peripheral Vein, Percutaneous Approach (ICD-10-PCS; 2019-01-20)
PROC: 30233N1 Transfusion of Nonautologous Red Blood Cells into Peripheral Vein, Percutaneous Approach (ICD-10-PCS; 2019-01-20)
PROC: 30233M1 Transfusion of Nonautologous Plasma Cryoprecipitate into Peripheral Vein, Percutaneous Approach (ICD-10-PCS; 2019-01-20)
DX: A41.9 Sepsis, unspecified organism (principal); E43 Unspecified severe protein-calorie malnutrition; D65 Disseminated intravascular coagulation [defibrination syndrome]; J96.01 Acute respiratory failure with hypoxia; K22.6 Gastro-esophageal laceration-hemorrhage syndrome; K76.7 Hepatorenal syndrome; N17.0 Acute kidney failure with tubular necrosis; N18.6 End stage renal disease; R65.21 Severe sepsis with septic shock; E87.2 Acidosis; I12.0 Hypertensive chronic kidney disease with stage 5 chronic kidney disease or end stage renal disease; J98.11 Atelectasis; M62.82 Rhabdomyolysis; B19.20 Unspecified viral hepatitis C without hepatic coma; D64.9 Anemia, unspecified; E87.6 Hypokalemia; E87.70 Fluid overload, unspecified; K21.0 Gastro-esophageal reflux disease with esophagitis; K29.20 Alcoholic gastritis without bleeding; K70.11 Alcoholic hepatitis with ascites; K70.31 Alcoholic cirrhosis of liver with ascites; K70.40 Alcoholic hepatic failure without coma; Z51.5 Encounter for palliative care; Z66 Do not resuscitate; Z68.34 Body mass index [BMI] 34.0-34.9, adult; Z83.3 Family history of diabetes mellitus
CPT/HCPCS: 43235; 96361; 96365; 96366; 96368; 96375; 99285; C8924; 36415; 36556; 36600; 71045; 74018; 74176; 76700; 76705; 76937; 80048; 80053; 80076; 80307; 81001; 82040; 82140; 82274; 82553; 82728; 82805; 82962; 83540; 83550; 83605; 83690; 83735; 83880; 84100; 84145; 84478; 84484; 85007; 85014; 85018; 85025; 85027; 85049; 85379; 85384; 85610; 85730; 86022; 86705; 86709; 86738; 86803; 86850; 86900; 86901; 86920; 86927; 87040; 87070; 87086; 87205; 87340; 87449; 87521; 87804; 93005; 93306; 93970; 94002; 94003; 94640; 94760; C1769; C1892; C9113; G0480; J0171; J0330; J0610; J0878; J0882; J1815; J1956; J2020; J2060; J2185; J2250; J2270; J2354; J2405; J2543; J2704; J2765; J2930; J3010; J3370; J3430; J3475; J3480; J3490; J7030; J7040; J7042; J7050; P9012; P9016; P9017; P9045; P9046; G0378